=== PATIENT | female | born 1945 | race Caucasian/White ===

== ENCOUNTER 2023-07-10 16:45 | Outpatient (REF) | payer MEDICARE, MEDICAID, SELFPAY ==
--- OUTSIDE RECORDS SUMMARY | 2023-07-10 16:55 | XMS_ITS | CCD ---
Author Name Unknown Address [address] [place] [address] [id number] Organization Unknown Address [address] [place] [address] [id number] Care Team Providers Care Education Associate Name Role Phone MOIZ PHILLIPS Attending Physician [phone] Vital Signs Unknown or Not Available. Allergies Allergy Code Allergy Type Reaction Status MORPHINE 7052 Drug allergy ?hallucinations Active Procedures Unknown or Not Available. History of Immunizations Immunization Code Date pneumococcal polysaccharide PPV23 33 03/02/2012 Problems Problem Code Start Date Resolved Date Status GERD 085904250 Active Hypothyroidism 35603704 Active CHF 95892555 Active Results BNP (PRO-B NATRIURETIC PEPTI DE) - Collect Date/Time: 11/06/2022 15:22 Test Name Code Test Result Test Units Test Ref Rang e NT-proBNP 75001-4 664.0 pg/mL L=0.0 H=125 COMPREHENSIVE METABOLIC PANE L (CMP) - Collect Date/Time: 11/06/2022 15:22 Test Name Code Test Result Test Units Test Ref Rang e GLUCOSE 2345-7 100 mg/dL L=70 H=116 BUN 3094-0 39 mg/dL L=6 H=25 CREATININE 2160-0 1.25 mg/dL L=0.51 H=0.95 SODIUM SERUM 2951-2 141 mmol/L L=136 H=145 POTASSIUM SERUM 2823-3 4.3 mmol/L L=3.4 H=5 .2 CHLORIDE SERUM 2075-0 102 mmol/L L=96 H=110 CARBON DIOXIDE (CO2) 2028-9 30 mmol/L L=22 H=34 ANION GAP 97184-1 9.3 mmol/L CALCIUM SERUM 82512-9 9.2 mg/dL L=8.2 H=10. 2 BILIRUBIN TOTAL 1975-2 0.3 mg/dL L=0.0 H=1 .3 ALK. PHOS. 6768-6 135 U/L L=46 H=116 SGOT (AST) 1920-8 26 U/L L=15 H=37 SGPT (ALT) 1742-6 35 U/L L=12 H=78 TOTAL PROTEIN 2885-2 7.1 gm/dL L=6.0 H=8.0 ALBUMIN 1751-7 3.8 gm/dL L=3.4 H=5.0 AGE 76 years eGFR (non-Afr.Amer.) 84685-7 42 mL/min eGFR (Afr-Wallisian) 14355-5 51 mL/min CBC W/ DIFFERENTIAL* - Colle ct Date/Time: 11/06/2022 15:22 Test Name Code Test Result Test Units Test Ref Rang e WBC 6690-2 15.74 th/cmm L=5.00 H=10.00 NEUT % 68.1 % L=40.0 H=80.0 LYMPH % 20.7 % L=10.0 H=50.0 MONO % 38889-4 9.7 % L=2.0 H=12.0 EOS % 0.4 % L=0.0 H=8.0 BASO % 0.3 % L=0.0 H=3.0 IG % 2514-8 0.8 % L=0.0 H=1.1 NRBC % 53809-1 0.0 % L=0.0 H=0.0 NEUT abs count 751-8 10.7 th/cmm L=1.6 H=8. 4 LYMPH abs count 731-0 3.3 th/cmm L=1.5 H=4 .0 MONO abs count 742-7 1.5 th/cmm L=0.2 H=1. 0 EOS abs count 711-2 0.1 th/cmm L=0.0 H=0.5 BASO abs count 704-7 0.0 th/cmm L=0.0 H=0. 2 IG abs count 79684-3 0.1 th/cmm L=0.0 H=0.1 NRBC abs count 77682-1 0.0 mil/cmm L=0.0 H=0. 0 RBC 789-8 4.14 mil/cmm L=3.90 H=5.40 HEMOGLOBIN 718-7 13.9 gm/dL L=12.0 H=16.0 HEMATOCRIT 4544-3 41 % L=37 H=47 MCV 787-2 98 fL L=82 H=92 MCH 785-6 33.6 pg L=27.0 H=31.0 MCHC 786-4 34.2 % L=32.0 H=36.0 RDW-SD 788-0 47.5 fL L=39.0 H=49.0 PLATELET COUNT 777-3 261 th/cmm L=150 H=45 0 Active Medications Unknown or Not Available. Medications Administered During Visit Unknown or Not Available. Encounters Encounter Diagnosis Diagnosis Code Start Date Hypertensive heart disease with congestive heart failure [id number] 11/06/2022 Social History Smoking Status Code Start Date End Date Never smoker 153407902 Patient Decision Aids Unknown or Not Available. Discharge Instructions You were admitted to [facility] on 11/06/2022 14:31 with a principal diagnosis of Hypertensive heart disease with heart failure You had the following tests done:BNP (PRO-B NATRIURETIC PEPTIDE)CBC W/ DIFFERENTIAL*COMPREHENSIVE METABOLIC PANEL (CMP) You were discharged from [facility] on 11/06/2022 14:31 Should you have any questions prior to discharge, please contact a member of your healthcare team. If you have left the hospital and have any questions, please contact your primary care physician. Chief Complaint and Reason For Visit Unknown or Not Available. Function Status Unknown or Not Available. Plan of Care Unknown or Not Available. Referral/Transition of Care Unknown or Not Available.
--- OUTSIDE RECORDS SUMMARY | 2023-07-10 16:55 | XMS_ITS | CCD ---
Author Name Unknown Address [address] [place] [address] [phone] Organization Unknown Address [address] [place], [place] [phone] Care Team Providers Care Hot Iron Worker Name Role Phone ANABEL MACKENZIE Attending Physician [phone] ANABEL MACKENZIE Rounding (Secondary) Physician [phone] Vital Signs Unknown or Not Available. Allergies Allergy Code Allergy Type Reaction Status MORPHINE 7052 Drug allergy ?hallucinations Active Procedures Unknown or Not Available. History of Immunizations Immunization Code Date pneumococcal polysaccharide PPV23 33 03/02/2012 Problems Problem Code Start Date Resolved Date Status GERD 625640147 Active Hypothyroidism 25732748 Active CHF 43941093 Active Results Unknown or Not Available. Active Medications Unknown or Not Available. Medications Administered During Visit Unknown or Not Available. Encounters Encounter Diagnosis Diagnosis Code Start Date Achilles tendinitis, right leg M7661 1 08/12/2021 Social History Smoking Status Code Start Date End Date Never smoker 180440697 Patient Decision Aids Unknown or Not Available. Discharge Instructions You were admitted to [facility] on 06/12/2022 08:26 with a principal diagnosis of Achilles tendinitis, right leg You were discharged from [facility] on 06/12/2022 00:00 Should you have any questions prior to [...]
--- OUTSIDE RECORDS SUMMARY | 2023-07-10 16:55 | XMS_ITS | CCD ---
Author Name Unknown Address [address] [place] [address] [phone] Organization Unknown Address [address] [place], [place] [phone] Care Team Providers Care Aerial Erector Name Role Phone ANABEL MACKENZIE Attending Physician [phone] ANABEL MACKENZIE Rounding (Secondary) Physician [phone] Vital Signs Unknown or Not Available. Allergies Allergy Code Allergy Type Reaction Status MORPHINE 7052 Drug allergy ?hallucinations Active Procedures Unknown or Not Available. History of Immunizations Immunization Code Date pneumococcal polysaccharide PPV23 33 03/02/2012 Problems Problem Code Start Date Resolved Date Status GERD 748112942 Active Hypothyroidism 22320968 Active CHF 45998966 Active Results Unknown or Not Available. Active Medications Unknown or Not Available. Medications Administered During Visit Unknown or Not Available. Encounters Encounter Diagnosis Diagnosis Code Start Date Achilles tendinitis, right leg M7661 1 Social History Smoking Status Code Start Date End Date Never smoker 198976696 Patient Decision Aids Unknown or Not Available. Discharge Instructions You were admitted to [facility] on 05/20/2022 14:49 with a principal diagnosis of Achilles tendinitis, right leg You were discharged from [facility] on 05/20/2022 00:00 Should you have any questions prior [...]
--- OUTSIDE RECORDS SUMMARY | 2023-07-10 16:55 | XMS_ITS | CCD ---
Author Name Unknown Address [address] [place], [place] [phone] Organization Unknown Address [address] [place], [place] [phone] Care Team Providers Care Physical Plant Manager Name Role Phone CHIDIEL Attending Physician [phone] Vital Signs Unknown or Not Available. Allergies Allergy Code Allergy Type Reaction Status MORPHINE 7052 Drug allergy ?hallucinations Active Procedures Unknown or Not Available. History of Immunizations Immunization Code Date pneumococcal polysaccharide PPV23 33 03/02/2012 Problems Problem Code Start Date Resolved Date Status GERD 895947456 Active Hypothyroidism 17850105 Active CHF 60147122 Active Results COMPREHENSIVE METABOLIC PANE L (CMP) - Collect Date/Time: 03/06/2022 11:27 Test Name Code Test Result Test Units Test Ref Rang e GLUCOSE 2345-7 146 mg/dL L=70 H=116 BUN 3094-0 22 mg/dL L=6 H=25 CREATININE 2160-0 1.02 mg/dL L=0.51 H=0.95 SODIUM SERUM 2951-2 141 mmol/L L=136 H=145 POTASSIUM SERUM 2823-3 4.1 mmol/L L=3.4 H=5 .2 CHLORIDE SERUM 2075-0 105 mmol/L L=96 H=110 CARBON DIOXIDE (CO2) 2028-9 31 mmol/L L=22 H=34 ANION GAP 47691-4 4.9 mmol/L CALCIUM SERUM 33147-9 8.9 mg/dL L=8.2 H=10. 2 BILIRUBIN TOTAL 1975-2 0.3 mg/dL L=0.0 H=1 .3 ALK. PHOS. 6768-6 130 U/L L=46 H=116 SGOT (AST) 1920-8 25 U/L L=15 H=37 SGPT (ALT) 1742-6 29 U/L L=12 H=78 TOTAL PROTEIN 2885-2 7.9 gm/dL L=6.0 H=8.0 ALBUMIN 1751-7 3.7 gm/dL L=3.4 H=5.0 AGE 76 years eGFR (non-Afr.Amer.) 32721-4 53 mL/min eGFR (Afr-Estonian) 67078-9 64 mL/min TSH THYROID STIMULATING HORM ONE* - Collect Date/Time: 03/06/2022 11:27 Test Name Code Test Result Test Units Test Ref Rang e TSH 3014-8 0.617 uIU/mL L=0.360 H=3.74 0 CBC W/ DIFFERENTIAL* - Colle ct Date/Time: 03/06/2022 11:27 Test Name Code Test Result Test Units Test Ref Rang e WBC 6690-2 9.65 th/cmm L=5.00 H=10.00 NEUT % 60.5 % L=40.0 H=80.0 LYMPH % 25.8 % L=10.0 H=50.0 MONO % 49044-0 10.8 % L=2.0 H=12.0 EOS % 1.7 % L=0.0 H=8.0 BASO % 0.7 % L=0.0 H=3.0 IG % 2514-8 0.5 % L=0.0 H=1.1 NRBC % 68728-5 0.0 % L=0.0 H=0.0 NEUT abs count 751-8 5.8 th/cmm L=1.6 H=8. 4 LYMPH abs count 731-0 2.5 th/cmm L=1.5 H=4 .0 MONO abs count 742-7 1.0 th/cmm L=0.2 H=1. 0 EOS abs count 711-2 0.2 th/cmm L=0.0 H=0.5 BASO abs count 704-7 0.1 th/cmm L=0.0 H=0. 2 IG abs count 96691-1 0.1 th/cmm L=0.0 H=0.1 NRBC abs count 47106-1 0.0 mil/cmm L=0.0 H=0. 0 RBC 789-8 3.97 mil/cmm L=3.90 H=5.40 HEMOGLOBIN 718-7 13.4 gm/dL L=12.0 H=16.0 HEMATOCRIT 4544-3 40 % L=37 H=47 MCV 787-2 102 fL L=82 H=92 MCH 785-6 33.8 pg L=27.0 H=31.0 MCHC 786-4 33.2 % L=32.0 H=36.0 RDW-SD 788-0 47.2 fL L=39.0 H=49.0 PLATELET COUNT 777-3 272 th/cmm L=150 H=45 0 SED RATE* - Collect Date/Solomon e: 03/06/2022 11:27 Test Name Code Test Result Test Units Test Ref Rang e SED. RATE 4537-7 14 mm/hr L=0 H=30 IMMUNOFIXATION AND SPEP SERU M* - Collect Date/Time: 03/06/2022 11:27 Test Name Code Test Result Test Units Test Ref Rang e Albumin 55.0 % 55.8-66.1 Albumin g/dL 4.1 g/dL 3.6-5.2 Alpha 1 3.8 % 2.9-4.9 Alpha-1 Globulins g/dL 0.30 g/dL 0. 15-0.40 Alpha 2 11.5 % 7.1-11.8 Alpha-2 Globulins g/dL 0.90 g/dL 0. 50-1.00 Beta 12.1 % 8.4-13.1 Beta Globulins g/dL 0.90 g/dL 0.60- 1.20 Gamma 17.6 % 11.1-18.8 Gamma Globulins g/dL 1.30 g/dL 0.60 -1.60 Total Protein 7.4 N/A 6.3-8.2 Comments No apparent mono clonal protein seen on serum electrophoresis N/A Immunotyping, Serum (See Note) N/A Active Medications Unknown or Not Available. Medications Administered During Visit Unknown or Not Available. Encounters Encounter Diagnosis Diagnosis Code Start Date Neuralgia 74540251 03/06/2022 Social History Smoking Status Code Start Date End Date Never smoker 047159285 Patient Decision Aids Unknown or Not Available. Discharge Instructions You were admitted to [facility] on 03/06/2022 11:04 with a principal diagnosis of Neuralgia and neuritis, unspecified You had the following tests done:CBC W/ DIFFERENTIAL*COMPREHENSIVE METABOLIC PANEL (CMP)IMMUNOFIXATION AND SPEP SERUM*SED RATE*TSH THYROID STIMULATING HORMONE* You were discharged from [facility] on 03/06/2022 11:04 Should you have any questions prior to [...]
--- OUTSIDE RECORDS SUMMARY | 2023-07-10 16:55 | XMS_ITS | CCD ---
Author Name Unknown Address [address] [place] [address] [phone] Organization Unknown Address [address] [place] [address] [phone] Care Team Providers Care Coil Taper Name Role Phone MOIZ PHILLIPS Attending Physician [phone] MOIZ PHILLIPS Rounding (Secondary) Physician [phone] Vital Signs Unknown or Not Available. Allergies Allergy Code Allergy Type Reaction Status MORPHINE 7052 Drug allergy ?hallucinations Active Procedures Unknown or Not Available. History of Immunizations Immunization Code Date pneumococcal polysaccharide PPV23 33 03/02/2012 Problems Problem Code Start Date Resolved Date Status GERD 534862453 Active Hypothyroidism 25886540 Active CHF 27418153 Active Results Unknown or Not Available. Active Medications Unknown or Not Available. Medications Administered During Visit Unknown or Not Available. Encounters Encounter Diagnosis Diagnosis Code Start Date Nonrheumatic aortic valve disorder, unspecified I359 11/15/2021 Social History Smoking Status Code Start Date End Date Never smoker 397710481 Patient Decision Aids Unknown or Not Available. Discharge Instructions You were admitted to [facility] on 11/15/2021 11:16 with a principal diagnosis of Nonrheumatic aortic valve disorder, unspecified You were discharged from [facility] on 11/15/2021 00:00 Should you have any questions prior [...]
--- OUTSIDE RECORDS SUMMARY | 2023-07-10 16:55 | XMS_ITS | CCD ---
Author Name Unknown Address [address] [place] [address] [phone] Organization Unknown Address [address] [place], [place] [phone] Care Team Providers Care Marketing Communications Associate Name Role Phone COLEMAN MÁRQUEZ Attending Physician [phone] Vital Signs Unknown or Not Available. Allergies Allergy Code Allergy Type Reaction Status MORPHINE 7052 Drug allergy ?hallucinations Active Procedures Unknown or Not Available. History of Immunizations Immunization Code Date pneumococcal polysaccharide PPV23 33 03/02/2012 Problems Problem Code Start Date Resolved Date Status GERD 925891600 Active Hypothyroidism 95431403 Active CHF 09018437 Active Results Unknown or Not Available. Active Medications Unknown or Not Available. Medications Administered During Visit Unknown or Not Available. Encounters Encounter Diagnosis Diagnosis Code Start Date Obstructive sleep apnea syndrome 71339444 01/07/2023 Social History Smoking Status Code Start Date End Date Never smoker 256025368 Patient Decision Aids Unknown or Not Available. Discharge Instructions You were admitted to [facility] on 01/07/2023 20:49 with a principal diagnosis of Obstructive sleep apnea (adult) (pediatric) You were discharged from [facility] on 01/07/2023 20:50 Should you have any questions prior to [...]
--- OUTSIDE RECORDS SUMMARY | 2023-07-10 16:55 | XMS_ITS | CCD ---
Author Name Unknown Address [address] [place] [address] [phone] Organization Unknown Address [address] [place] [address] [phone] Care Team Providers Care Electrician Second Name Role Phone PATRICK ALLISON Attending Physician [phone] PATRICK ALLISON Er Physician 1 [phone] FRANCIS Jimenez Registered Nurse [phone] Vital Signs Vital Sign Value Unit Date/Time Recent/Initial ? BMI (Body Mass Index) 39.38 kg/m^2 01/19/2023 15: 08 Initial VS Weight Measured 182 lbs 01/19/2023 15:08 Ini tial VS Height 57 in 01/19/2023 15:08 Initial VS BSA (Body Surface Area) 1.82 m^2 01/19/2023 1 5:08 Initial VS BP Systolic 167 mmHg 01/19/2023 15:08 Initial VS BP Diastolic 51 mmHg 01/19/2023 15:08 Initia l VS Respiratory Rate 20 bpm 01/19/2023 15:08 In itial VS Heart Rate 88 bpm 01/19/2023 15:08 Initial VS O2 % BldC Oximetry 97 % 01/19/2023 15:08 Initial VS Body Temperature 36.7 degrees 01/19/2023 15:08 In itial VS BP Systolic 176 mmHg 01/19/2023 17:48 Most Re cent VS BP Diastolic 73 mmHg 01/19/2023 17:48 Most R ecent VS Respiratory Rate 16 bpm 01/19/2023 17:[address] Recent VS Heart Rate 84 bpm 01/19/2023 17:48 Most Rec ent VS O2 % BldC Oximetry 96 % 01/19/2023 17:48 Most Recent VS Allergies Allergy Code Allergy Type Reaction Status MORPHINE 7052 Drug allergy ?hallucinations Active Procedures Unknown or Not Available. History of Immunizations Immunization Code Date pneumococcal polysaccharide PPV23 33 03/02/2012 Problems Problem Code Start Date Resolved Date Status GERD 642722986 Active Hypothyroidism 60400311 Active CHF 19097458 Active Results COMPREHENSIVE METABOLIC PANE L (CMP) - Collect Date/Time: 01/19/2023 15:50 Test Name Code Test Result Test Units Test Ref Rang e GLUCOSE 2345-7 105 mg/dL L=70 H=116 BUN 3094-0 14 mg/dL L=6 H=25 CREATININE 2160-0 0.93 mg/dL L=0.51 H=0.95 SODIUM SERUM 2951-2 134 mmol/L L=136 H=145 POTASSIUM SERUM 2823-3 3.7 mmol/L L=3.4 H=5 .2 CHLORIDE SERUM 2075-0 98 mmol/L L=96 H=110 CARBON DIOXIDE (CO2) 2028-9 30 mmol/L L=22 H=34 ANION GAP 32307-9 5.6 mmol/L CALCIUM SERUM 82949-6 9.6 mg/dL L=8.2 H=10. 2 BILIRUBIN TOTAL 1975-2 0.4 mg/dL L=0.0 H=1 .3 ALK. PHOS. 6768-6 118 U/L L=46 H=116 SGOT (AST) 1920-8 38 U/L L=15 H=37 SGPT (ALT) 1742-6 34 U/L L=12 H=78 TOTAL PROTEIN 2885-2 7.2 gm/dL L=6.0 H=8.0 ALBUMIN 1751-7 3.5 gm/dL L=3.4 H=5.0 AGE 77 years eGFR (non-Afr.Amer.) 17931-6 59 mL/min eGFR (Afr-Ethiopian) 48682-3 71 mL/min LIPASE* NEW - Collect Date/T luke: 01/19/2023 15:50 Test Name Code Test Result Test Units Test Ref Rang e LIPASE. 54 U/L L=16 H=77 TROPONIN HIGH SENSITIVITY* - Collect Date/Time: 01/19/2023 15:50 Test Name Code Test Result Test Units Test Ref Rang e TROPONIN HS 13.2 pg/mL L=0.0 H=60.4 Specimen seq. RANDOM N/A CBC W/ DIFFERENTIAL* - Colle ct Date/Time: 01/19/2023 15:50 Test Name Code Test Result Test Units Test Ref Rang e WBC 6690-2 9.97 th/cmm L=5.00 H=10.00 NEUT % 59.2 % L=40.0 H=80.0 LYMPH % 29.4 % L=10.0 H=50.0 MONO % 01838-6 9.3 % L=2.0 H=12.0 EOS % 1.1 % L=0.0 H=8.0 BASO % 0.6 % L=0.0 H=3.0 IG % 2514-8 0.4 % L=0.0 H=1.1 NRBC % 89735-2 0.0 % L=0.0 H=0.0 NEUT abs count 751-8 5.9 th/cmm L=1.6 H=8. 4 LYMPH abs count 731-0 2.9 th/cmm L=1.5 H=4 .0 MONO abs count 742-7 0.9 th/cmm L=0.2 H=1. 0 EOS abs count 711-2 0.1 th/cmm L=0.0 H=0.5 BASO abs count 704-7 0.1 th/cmm L=0.0 H=0. 2 IG abs count 30269-8 0.0 th/cmm L=0.0 H=0.1 NRBC abs count 99165-6 0.0 mil/cmm L=0.0 H=0. 0 RBC 789-8 3.69 mil/cmm L=3.90 H=5.40 HEMOGLOBIN 718-7 12.7 gm/dL L=12.0 H=16.0 HEMATOCRIT 4544-3 38 % L=37 H=47 MCV 787-2 102 fL L=82 H=92 MCH 785-6 34.4 pg L=27.0 H=31.0 MCHC 786-4 33.7 % L=32.0 H=36.0 RDW-SD 788-0 46.4 fL L=39.0 H=49.0 PLATELET COUNT 777-3 210 th/cmm L=150 H=45 0 ROSEANNA COVID FLU RSV GENEXPE RT - Collect Date/Time: 01/19/2023 15:50 Test Name Code Test Result Test Units Test Ref Rang e COVID 80933-0 NEGATIVE N/A Normal: Negati ve INFLUENZA A DNA 59684-1 NEGATIVE N/A Normal: N egative INFLUENZA B DNA 65322-1 NEGATIVE N/A Normal: N egative RSV DNA 13186-6 NEGATIVE N/A Normal: Negati ve URINALYSIS WITH REFLEX CULT IF POSITIVE* - Collect Date/Time: 01/19/2023 15:35 Test Name Code Test Result Test Units Test Ref Rang e COLLECTION MODE: 75753-7 VOID N/A Color 5778-6 STRAW N/A yellow Appearance 5767-9 CLEAR N/A clear Glucose urine 81019-6 NEGATIVE N/A negative mg /dl Bilirubin 5770-3 NEGATIVE N/A negative Ketones 2514-8 NEGATIVE N/A negative mg/dl Spec gravity 5811-5 <=1.005 N/A 1.003 - 1.03 0 pH urine 2756-5 7.0 N/A 5.0 - 7.0 Protein 97145-4 NEGATIVE N/A negative mg/dl Urobilinogen 81871-0 0.2 N/A <or= 1 EU/dl Nitrite. 5802-4 NEGATIVE N/A negative Blood 5794-3 NEGATIVE N/A negative Leukocytes. NEGATIVE N/A negative MICROSCOPIC NOT INDICAT N/A Active Medications Medications Administered During Visit Medication Dose Units Frequency Route Date/Time of Last Dose SODIUM CHLORIDE 0.9% 500ML 500 ML X1 01/19/2023 15:53 ACETAMINOPHEN INJ IVPB: 1000MG/100ML 1000 MG X1 01/19/2023 15:5 3 ONDANSETRON INJ SDV: 4MG/2ML 4 MG X1 I MONITORING SPECIALIST 01/19/2023 15:53 ER-ONDANSETRON ODT 4 PACK: 4MG 4 MG PRN Q8H PO 01/19/2023 18:20 Encounters Encounter Diagnosis Diagnosis Code Start Date Noninfectious gastroenteritis 55817286 Social History Smoking Status Code Start Date End Date Never smoker 073219690 Patient Decision Aids Unknown or Not Available. Discharge Instructions You were admitted to [facility] on 01/19/2023 14:53 with a principal diagnosis of Noninfective gastroenteritis and colitis, unspecified You had the following tests done:CBC W/ DIFFERENTIAL*COMPREHENSIVE METABOLIC PANEL (CMP)ROSEANNA COVID FLU RSV GENEXPERTLIPASE* NEWTROPONIN HIGH SENSITIVITY*URINALYSIS WITH REFLEX CULT IF POSITIVE* You were discharged from [facility] on 01/19/2023 18:21 Should you have any questions prior to discharge, please contact a member of your healthcare team. If you have left the hospital and have any questions, please contact your primary care physician. Chief Complaint and Reason For Visit Chief Complaint Date of Onset DIZZINESS FATIGUE NAUSEA CHECK PER Function Status Unknown or Not Available. Plan of Care Unknown or Not Available. Referral/Transition of Care Unknown or Not Available.
--- OUTSIDE RECORDS SUMMARY | 2023-07-10 16:56 | XMS_ITS | CCD ---
Author Name Unknown Address [address] [place] [address] [phone] Organization Unknown Address [address] [place], [place] [phone] Care Team Providers Care Hand Picker Name Role Phone CHIDI, EL Attending Physician [phone] Vital Signs Unknown or Not Available. Allergies Allergy Code Allergy Type Reaction Status MORPHINE 7052 Drug allergy ?hallucinations Active Procedures Unknown or Not Available. History of Immunizations Immunization Code Date pneumococcal polysaccharide PPV23 33 03/02/2012 Problems Problem Code Start Date Resolved Date Status GERD 581378149 Active Hypothyroidism 60781777 Active CHF 60041720 Active Results Unknown or Not Available. Active Medications Unknown or Not Available. Medications Administered During Visit Unknown or Not Available. Encounters Encounter Diagnosis Diagnosis Code Start Date Encounter for screening mamm ogram for malignant neoplasm of breast Z1231 04/10/2021 Social History Smoking Status Code Start Date End Date Never smoker 320625647 Patient Decision Aids Unknown or Not Available. Discharge Instructions You were admitted to [facility] on 04/10/2021 12:46 with a principal diagnosis of Encounter for screening mammogram for malignant neoplasm of breast You were discharged from [facility] on 04/10/2021 12:46 Should you have any questions prior to [...]
[2023-07-10 17:25] LABS: Abs Immature Grans 0.03 10^3/uL (0.0-0.06); Absolute Basophil Count 0.08 10^3/uL (0.0-0.2); Absolute Eosinophil Count 0.26 10^3/uL (0.0-0.7); Absolute Lymphocyte Count 2.51 10^3/uL (1.2-3.4); Absolute Monocyte Count 1.02 10^3/uL (0.1-0.8); Absolute Neutrophil Count 4.29 10^3/uL (1.2-6.7); Eosinophils % 3.2; HCT 36.9 % (36.0-46.0); HGB 12.2 g/dL (11.2-15.7); Immature Grans % 0.4; Lymphocytes % 30.6; MCH 33.7 pg (27.0-33.0); MCHC 33.1 % (32.0-36.0); MCV 102 fL (80-95); MPV 11.8 fL (8.0-11.0); Monocytes % 12.5; Neutrophils % 52.3; Platelet Count 194 10^3/uL (130-400); RBC 3.62 10^6/uL (3.93-5.22); RDW 13.1 % (11.7-14.6); RDW-SD 48.9 fL; WBC 8.19 10^3/uL (4.4-10.8)
[2023-07-10 17:39] LABS: ALT 28 U/L (14-59); AST 32 U/L (15-37); Albumin 3.3 g/dL (3.4-5.0); Alkaline Phosphatase 116 U/L (46-116); Anion Gap 5.8 mmol/L (3-11); BUN 35 mg/dL (7-18); Bilirubin, Total 0.3 mg/dL (0.2-1.0); CO2 31.2 mmol/L (21.0-32.0); CREATININE 1.3 mg/dL (0.55-1.02); Calcium 9.4 mg/dL (8.5-10.1); Chloride 105 mmol/L (98-107); Estimated GFR 42.62 (mL/min/1.73m2); Glucose 101 mg/dL (74-106); Potassium 4.6 mmol/L (3.5-5.1); Sodium 142 mmol/L (136-145)
== END 2023-07-10 16:46 | disposition home or self-care (01) ==
LOC: NCHCN 16:45
PROVIDERS: PCP Family Medicine; Visit Provider Family Medicine
DX: R10.31 Right lower quadrant pain (principal)
CPT/HCPCS: 80053; 85025

== ENCOUNTER 2023-08-18 13:50 | Outpatient (REF) | payer MEDICARE, MEDICAID, SELFPAY ==
--- OUTSIDE RECORDS SUMMARY | 2023-08-18 13:53 | XMS_ITS | CCD ---
Author Name Unknown Address [address] [place] [address] [id number] Organization Unknown Address [address] [place], [place] [phone] Care Team Providers Care Gunsmith Apprentice Name Role Phone COLEMAN MÁRQUEZ Attending Physician [phone] Vital Signs Unknown or Not Available. Allergies Allergy Code Allergy Type Reaction Status MORPHINE 7052 Drug allergy ?hallucinations Active Procedures Unknown or Not Available. History of Immunizations Immunization Code Date pneumococcal polysaccharide PPV23 33 03/02/2012 Problems Problem Code Start Date Resolved Date Status GERD 122827175 Active Hypothyroidism 37679188 Active CHF 20373853 Active Results Unknown or Not Available. Active Medications Unknown or Not Available. Medications Administered During Visit Unknown or Not Available. Encounters Encounter Diagnosis Diagnosis Code Start Date Obstructive sleep apnea syndrome 40946861 01/07/2023 Social History Smoking Status Code Start Date End Date Never smoker 068795423 Patient Decision Aids Unknown or Not Available. Discharge Instructions You were admitted to [facility] on 01/07/2023 20:49 with a principal diagnosis of Obstructive sleep apnea (adult) (pediatric) You were discharged from [facility] on 01/07/2023 20:50 Should you have any [...]
--- OUTSIDE RECORDS SUMMARY | 2023-08-18 13:53 | XMS_ITS | CCD ---
Author Name Unknown Address [address] [place] [address] [phone] Organization Unknown Address [address] [place] [address] [phone] Care Team Providers Care Furnace Filler Name Role Phone PATRICK ALLISON Attending Physician [phone] PATRICK ALLISON Er Physician [phone] FRANCIS Jimenez Registered Nurse [phone] Vital Signs Vital Sign Value Unit Date/Time [...] Code Start Date Resolved Date Status GERD 262495810 Active Hypothyroidism 30455149 Active CHF 14546445 Active Results COMPREHENSIVE METABOLIC PANE L (CMP) [...] 2028-9 30 mmol/L L=22 H=34 ANION GAP 30328-1 5.6 mmol/L CALCIUM SERUM 35535-6 9.6 mg/dL L=8.2 H=10. 2 BILIRUBIN TOTAL 1975-2 0.4 mg/dL L=0.0 H=1 .3 ALK. PHOS. 6768-6 118 U/L L=46 H=116 SGOT (AST) 1920-8 38 U/L L=15 H=37 SGPT (ALT) 1742-6 34 U/L L=12 H=78 TOTAL PROTEIN 2885-2 7.2 gm/dL L=6.0 H=8.0 ALBUMIN 1751-7 3.5 gm/dL L=3.4 H=5.0 AGE 77 years eGFR (non-Afr.Amer.) 32909-6 59 mL/min eGFR (Afr-Eritrean) 71959-3 71 mL/min LIPASE* NEW - Collect Date/T [...] % 29.4 % L=10.0 H=50.0 MONO % 13456-0 9.3 % L=2.0 H=12.0 EOS % 1.1 % L=0.0 H=8.0 BASO % 0.6 % L=0.0 H=3.0 IG % 2514-8 0.4 % L=0.0 H=1.1 NRBC % 03750-5 0.0 % L=0.0 H=0.0 NEUT abs count 751-8 5.9 th/cmm L=1.6 H=8. 4 LYMPH abs count 731-0 2.9 th/cmm L=1.5 H=4 .0 MONO abs count 742-7 0.9 th/cmm L=0.2 H=1. 0 EOS abs count 711-2 0.1 th/cmm L=0.0 H=0.5 BASO abs count 704-7 0.1 th/cmm L=0.0 H=0. 2 IG abs count 27140-8 0.0 th/cmm L=0.0 H=0.1 NRBC abs count 57978-6 0.0 mil/cmm L=0.0 H=0. 0 RBC 789-8 [...] Test Units Test Ref Rang e COVID 78222-2 NEGATIVE N/A Normal: Negati ve INFLUENZA A DNA 91927-8 NEGATIVE N/A Normal: N egative INFLUENZA B DNA 40646-4 NEGATIVE N/A Normal: N egative RSV DNA 14092-4 NEGATIVE N/A Normal: Negati ve URINALYSIS WITH REFLEX CULT IF POSITIVE* - Collect Date/Time: 01/19/2023 15:35 Test Name Code Test Result Test Units Test Ref Rang e COLLECTION MODE: 10067-2 VOID N/A Color 5778-6 STRAW N/A yellow Appearance 5767-9 CLEAR N/A clear Glucose urine 74312-5 NEGATIVE N/A negative mg /dl Bilirubin 5770-3 NEGATIVE N/A negative Ketones 2514-8 NEGATIVE N/A negative mg/dl Spec gravity 5811-5 <=1.005 N/A 1.003 - 1.03 0 pH urine 2756-5 7.0 N/A 5.0 - 7.0 Protein 94332-0 NEGATIVE N/A negative mg/dl Urobilinogen 01323-9 0.2 N/A <or= 1 EU/dl Nitrite. 5802-4 [...] INJ SDV: 4MG/2ML 4 MG X1 I GUILLOTINE OPERATOR 01/19/2023 15:53 ER-ONDANSETRON ODT 4 PACK: 4MG 4 MG PRN Q8H PO 01/19/2023 18:20 Encounters Encounter Diagnosis Diagnosis Code Start Date Noninfectious gastroenteritis 57643845 Social History Smoking Status Code Start Date End Date Never smoker 251496868 Patient Decision Aids Unknown or Not Available. Discharge Instructions You were admitted to [facility] on 01/19/2023 14:53 with a principal diagnosis of Noninfective gastroenteritis and colitis, unspecified You had the following tests done:CBC W/ DIFFERENTIAL*COMPREHENSIVE METABOLIC PANEL (CMP)ROSEANNA COVID FLU RSV GENEXPERTLIPASE* NEWTROPONIN HIGH SENSITIVITY*URINALYSIS WITH REFLEX CULT IF POSITIVE* You were discharged from [facility] on 01/19/2023 18:21 Should you have any [...]
--- OUTSIDE RECORDS SUMMARY | 2023-08-18 13:53 | XMS_ITS | CCD ---
Author Name Unknown Address [address] [place] [address] [phone] Organization Unknown Address [address], [place] [phone] Care Team Providers Care Sales Broker Name Role Phone ANABEL MACKENZIE Attending Physician [phone] ANABEL MACKENZIE Rounding (Secondary) Physician [phone] Vital Signs Unknown or Not Available. Allergies Allergy Code Allergy Type Reaction Status MORPHINE 7052 Drug allergy ?hallucinations Active Procedures Unknown or Not Available. History of Immunizations Immunization Code Date pneumococcal polysaccharide PPV23 33 03/02/2012 Problems Problem Code Start Date Resolved Date Status GERD 772955676 Active Hypothyroidism 83883755 Active CHF 74218626 Active Results Unknown or Not Available. Active Medications Unknown or Not Available. Medications Administered During Visit Unknown or Not Available. Encounters Encounter Diagnosis Diagnosis Code Start Date Achilles tendinitis, right leg M7661 1 Social History Smoking Status Code Start Date End Date Never smoker 443665471 Patient Decision Aids Unknown or Not Available. Discharge Instructions You were admitted to [facility] on 05/20/2022 14:49 with a principal diagnosis of Achilles tendinitis, right leg You were discharged from [facility] on 05/20/2022 00:00 Should you have any [...]
--- OUTSIDE RECORDS SUMMARY | 2023-08-18 13:53 | XMS_ITS | CCD ---
Author Name Unknown Address [address] [place] [address] [phone] Organization Unknown Address [address] [place] [address] [phone] Care Team Providers Care Drafter Name Role Phone MOIZ PHILLIPS Attending Physician [phone] Vital Signs Unknown or Not Available. Allergies Allergy Code Allergy Type Reaction Status MORPHINE 7052 Drug allergy ?hallucinations Active Procedures Unknown or Not Available. History of Immunizations Immunization Code Date pneumococcal polysaccharide PPV23 33 03/02/2012 Problems Problem Code Start Date Resolved Date Status GERD 800661824 Active Hypothyroidism 72660538 Active CHF 40865667 Active Results BNP (PRO-B NATRIURETIC PEPTI DE) - Collect Date/Time: 11/06/2022 15:22 Test Name Code Test Result Test Units Test Ref Rang e NT-proBNP 35581-6 664.0 pg/mL L=0.0 H=125 COMPREHENSIVE METABOLIC PANE [...] 2028-9 30 mmol/L L=22 H=34 ANION GAP 13272-5 9.3 mmol/L CALCIUM SERUM 87662-6 9.2 mg/dL L=8.2 H=10. 2 BILIRUBIN TOTAL 1975-2 0.3 mg/dL L=0.0 H=1 .3 ALK. PHOS. 6768-6 135 U/L L=46 H=116 SGOT (AST) 1920-8 26 U/L L=15 H=37 SGPT (ALT) 1742-6 35 U/L L=12 H=78 TOTAL PROTEIN 2885-2 7.1 gm/dL L=6.0 H=8.0 ALBUMIN 1751-7 3.8 gm/dL L=3.4 H=5.0 AGE 76 years eGFR (non-Afr.Amer.) 86038-6 42 mL/min eGFR (Afr-[place]an) 98155-1 51 mL/min CBC W/ DIFFERENTIAL* - Colle ct Date/Time: 11/06/2022 15:22 Test Name Code Test Result Test Units Test Ref Rang e WBC 6690-2 15.74 th/cmm L=5.00 H=10.00 NEUT % 68.1 % L=40.0 H=80.0 LYMPH % 20.7 % L=10.0 H=50.0 MONO % 99926-5 9.7 % L=2.0 H=12.0 EOS % 0.4 % L=0.0 H=8.0 BASO % 0.3 % L=0.0 H=3.0 IG % 2514-8 0.8 % L=0.0 H=1.1 NRBC % 88051-6 0.0 % L=0.0 H=0.0 NEUT abs count 751-8 10.7 th/cmm L=1.6 H=8. 4 LYMPH abs count 731-0 3.3 th/cmm L=1.5 H=4 .0 MONO abs count 742-7 1.5 th/cmm L=0.2 H=1. 0 EOS abs count 711-2 0.1 th/cmm L=0.0 H=0.5 BASO abs count 704-7 0.0 th/cmm L=0.0 H=0. 2 IG abs count 11985-9 0.1 th/cmm L=0.0 H=0.1 NRBC abs count 32417-1 0.0 mil/cmm L=0.0 H=0. 0 RBC 789-8 [...] Hypertensive heart disease with congestive heart failure 3294546 11/06/2022 Social History Smoking Status Code Start Date End Date Never smoker 293632871 Patient Decision Aids Unknown or Not Available. Discharge Instructions You were admitted to [facility] on 11/06/2022 14:31 with a principal diagnosis of Hypertensive heart disease with heart failure You had the following tests done:BNP (PRO-B NATRIURETIC PEPTIDE)CBC W/ DIFFERENTIAL*COMPREHENSIVE METABOLIC PANEL (CMP) You were discharged from [facility] on 11/06/2022 14:31 Should you have [...]
--- OUTSIDE RECORDS SUMMARY | 2023-08-18 13:54 | XMS_ITS | CCD ---
Author Name Unknown Address [address], [place] [phone] Organization Unknown Address [address], [place] [phone] Care Team Providers Care Web Production Designer Name Role Phone CHIDIEL Attending Physician [phone] Vital Signs Unknown or Not Available. Allergies Allergy Code Allergy Type Reaction Status MORPHINE 7052 Drug allergy ?hallucinations Active Procedures Unknown or Not Available. History of Immunizations Immunization Code Date pneumococcal polysaccharide PPV23 33 03/02/2012 Problems Problem Code Start Date Resolved Date Status GERD 962092736 Active Hypothyroidism 40153162 Active CHF 17604706 Active Results COMPREHENSIVE METABOLIC PANE L (CMP) [...] 2028-9 31 mmol/L L=22 H=34 ANION GAP 11757-6 4.9 mmol/L CALCIUM SERUM 05047-4 8.9 mg/dL L=8.2 H=10. 2 BILIRUBIN TOTAL 1975-2 0.3 mg/dL L=0.0 H=1 .3 ALK. PHOS. 6768-6 130 U/L L=46 H=116 SGOT (AST) 1920-8 25 U/L L=15 H=37 SGPT (ALT) 1742-6 29 U/L L=12 H=78 TOTAL PROTEIN 2885-2 7.9 gm/dL L=6.0 H=8.0 ALBUMIN 1751-7 3.7 gm/dL L=3.4 H=5.0 AGE 76 years eGFR (non-Afr.Amer.) 42770-9 53 mL/min eGFR (Afr-Djiboutian) 66861-8 64 mL/min TSH THYROID STIMULATING HORM ONE* [...] % 25.8 % L=10.0 H=50.0 MONO % 85536-0 10.8 % L=2.0 H=12.0 EOS % 1.7 % L=0.0 H=8.0 BASO % 0.7 % L=0.0 H=3.0 IG % 2514-8 0.5 % L=0.0 H=1.1 NRBC % 81737-7 0.0 % L=0.0 H=0.0 NEUT abs count 751-8 5.8 th/cmm L=1.6 H=8. 4 LYMPH abs count 731-0 2.5 th/cmm L=1.5 H=4 .0 MONO abs count 742-7 1.0 th/cmm L=0.2 H=1. 0 EOS abs count 711-2 0.2 th/cmm L=0.0 H=0.5 BASO abs count 704-7 0.1 th/cmm L=0.0 H=0. 2 IG abs count 07068-7 0.1 th/cmm L=0.0 H=0.1 NRBC abs count 35049-4 0.0 mil/cmm L=0.0 H=0. 0 RBC 789-8 [...] Encounter Diagnosis Diagnosis Code Start Date Neuralgia 09247595 03/06/2022 Social History Smoking Status Code Start Date End Date Never smoker 572670514 Patient Decision Aids Unknown or Not Available. Discharge Instructions You were admitted to [facility] on 03/06/2022 11:04 with a principal diagnosis of Neuralgia and neuritis, unspecified You had the following tests done:CBC W/ DIFFERENTIAL*COMPREHENSIVE METABOLIC PANEL (CMP)IMMUNOFIXATION AND SPEP SERUM*SED RATE*TSH THYROID STIMULATING HORMONE* You were discharged from [facility] on 03/06/2022 11:04 Should you have any [...]
--- OUTSIDE RECORDS SUMMARY | 2023-08-18 13:54 | XMS_ITS | CCD ---
Author Name Unknown Address [address] [place] [address] [phone] Organization Unknown Address [address] [place] [address] [phone] Care Team Providers Care Environmental Advisor Name Role Phone MOIZ PHILLIPS Attending Physician [phone] MOIZ PHILLIPS Rounding (Secondary) Physician [phone] Vital Signs Unknown or Not Available. Allergies Allergy Code Allergy Type Reaction Status MORPHINE 7052 Drug allergy ?hallucinations Active Procedures Unknown or Not Available. History of Immunizations Immunization Code Date pneumococcal polysaccharide PPV23 33 03/02/2012 Problems Problem Code Start Date Resolved Date Status GERD 759409016 Active Hypothyroidism 48050772 Active CHF 13226352 Active Results Unknown or Not Available. Active Medications Unknown or Not Available. Medications Administered During Visit Unknown or Not Available. Encounters Encounter Diagnosis Diagnosis Code Start Date Nonrheumatic aortic valve disorder, unspecified I359 11/15/2021 Social History Smoking Status Code Start Date End Date Never smoker 445207313 Patient Decision Aids Unknown or Not Available. Discharge Instructions You were admitted to [facility] on 11/15/2021 11:16 with a principal diagnosis of Nonrheumatic aortic valve disorder, unspecified You were discharged from [facility] on 11/15/2021 00:00 Should you [...]
[2023-08-18 22:20] LABS: Calculated LDL 42 mg/dL (<100); Cholesterol 115 mg/dL (<200); HDL Cholesterol 46 mg/dL (40-60); Triglyceride 135 mg/dL (<150)
== END 2023-08-18 13:51 | disposition home or self-care (01) ==
LOC: NCHCN 13:50
PROVIDERS: PCP Family Medicine; Visit Provider Family Medicine
DX: E78.5 Hyperlipidemia, unspecified (principal)
CPT/HCPCS: 80061

== ENCOUNTER → 2023-11-16 12:44 | Outpatient (CLI) | payer MEDICARE, MEDICAID, SELFPAY ==
--- NOTE | 2023-11-16 13:28 | DI.RAD_ITS ---
Exam(s) XR CHEST 2V PA LATERAL EXAM: XR CHEST 2V PA LATERAL CLINICAL HISTORY: CHRONIC COUGH,r05.3,? PNEUMONIA, PURULENT SPUTUM TECHNIQUE: 2D digital imaging was performed of the chest. Images were obtained. PA and lateral v iews were obtained. COMPARISON: No exams were available for comparison FINDINGS: MEDIASTINUM: Normal. HEART: Normal. There is an aortic valve replacement. PULMONARY VASCULATURE: Normal. LUNGS: The lungs appear hyperinflated suggesting underlying COPD. No focal consolidating infiltrates are seen. PLEURAL SPACE: No pleural effusion or pneumothorax. BONE:Within normal limits for the patient's age. Sternal wires are in place. OTHER FINDINGS:Normal. IMPRESSION: No focal infiltrates. DATA REPOSITORY: RADIATION DOSE DELIVERED:
== END ==
PROVIDERS: PCP Family Medicine; Visit Provider Family Medicine
DX: R05.3 Chronic cough (principal)
CPT/HCPCS: 71046

== ENCOUNTER 2023-11-16 12:46 | Outpatient (CLI) | payer MEDICARE, MEDICAID, SELFPAY ==
[2023-11-16 13:17] LABS: Abs Immature Grans 0.02 10^3/uL (0.0-0.06); Absolute Basophil Count 0.05 10^3/uL (0.0-0.2); Absolute Eosinophil Count 0.22 10^3/uL (0.0-0.7); Absolute Lymphocyte Count 3.03 10^3/uL (1.2-3.4); Absolute Monocyte Count 0.94 10^3/uL (0.1-0.8); Absolute Neutrophil Count 4.07 10^3/uL (1.2-6.7); Basophils % 0.6; Eosinophils % 2.6; HCT 36.1 % (36.0-46.0); HGB 11.8 g/dL (11.2-15.7); Immature Grans % 0.2; Lymphocytes % 36.4; MCH 33.1 pg (27.0-33.0); MCHC 32.7 % (32.0-36.0); MCV 101 fL (80-95); MPV 10.1 fL (8.0-11.0); Monocytes % 11.3; Neutrophils % 48.9; Platelet Count 185 10^3/uL (130-400); RBC 3.56 10^6/uL (3.93-5.22); RDW 12.8 % (11.7-14.6); WBC 8.33 10^3/uL (4.4-10.8)
[2023-11-16 13:54] LABS: ALT 38 U/L (14-59); AST 31 U/L (15-37); Albumin 3.4 g/dL (3.4-5.0); Alkaline Phosphatase 123 U/L (46-116); Anion Gap 10.7 mmol/L (3-11); BUN 28 mg/dL (7-18); Bilirubin, Total 0.4 mg/dL (0.2-1.0); CO2 29.3 mmol/L (21.0-32.0); CREATININE 1.2 mg/dL (0.55-1.02); Calcium 9.4 mg/dL (8.5-10.1); Chloride 108 mmol/L (98-107); Estimated GFR 46.91 (mL/min/1.73m2); Glucose 103 mg/dL (74-106); Potassium 4.2 mmol/L (3.5-5.1); Sodium 148 mmol/L (136-145); TSH (W/Ref FT4) 0.14 uIU/mL (0.36-3.74); Total Protein 7.3 g/dL (6.4-8.2)
[2023-11-16 14:09] LABS: FREE T4 1.08 ng/dL (0.76-1.46)
== END 2023-11-16 12:47 | disposition home or self-care (01) ==
LOC: LBO 12:52
PROVIDERS: PCP Family Medicine; Visit Provider Family Medicine
DX: R53.83 Other fatigue (principal)
CPT/HCPCS: 36415; 80053; 84439; 84443; 85025

== ENCOUNTER → 2023-12-17 04:24 | Outpatient (CLI) | payer MEDICARE, MEDICAID, SELFPAY ==
--- NOTE | 2023-12-17 | DI.DEXA_ITS ---
Exam(s) XR DEXA BONE DENSITY W/WO DAVID EXAM: XR DEXA BONE DENSITY W/WO DAVID CLINICAL HISTORY: Z78.0 Asymptomoatic meonpausal state TECHNIQUE: Hologic Horizon C densitometer analysis of left hip and lumbar spine . Lateral survey i mage of the thoracic and lumbar spine. COMPARISON: No exams were available for comparison FINDINGS: Lateral view of the thoracic and lumbar spine shows no evidence of compression fractures. Bone mineral density measurements of the lumbar spine correspond to a total T-score of 0.2, in the no rmal range. There are prominent degenerative changes with endplate osteophytes which could falsely e levate the bone mineral density measurements. Bone mineral density measurements of the left hip correspond to a total T-score of -1.5. The femora l neck T-score is -1.7, in the osteopenic range.. Theleft forearm bone mineral density measurements are not performed due to history of fracture. IMPRESSION: Normal bone mineral density of the spine. Osteopenia of the hip.
== END ==
PROVIDERS: PCP Family Medicine; Visit Provider Family Medicine
DX: Z78.0 Asymptomatic menopausal state (principal); Z12.31 Encounter for screening mammogram for malignant neoplasm of breast; M81.0 Age-related osteoporosis without current pathological fracture
CPT/HCPCS: 77080

== ENCOUNTER → 2024-01-01 04:00 | Outpatient (CLI) | payer MEDICARE, MEDICAID, SELFPAY ==
--- NOTE | 2024-01-01 14:14 | DI.MAMMO_ITS ---
Exam(s) MAMMO SCREENING EXAM: MAMMO SCREENING CLINICAL HISTORY: SCREENING MAMMO FOR BREAST CANCER Z12.31 TECHNIQUE: Bilateral full field digital CC and MLO mammographic images were obtained with 3D tomosyn thesis and utilizing computer aided detection (CAD). COMPARISON: Available for comparison. FINDINGS: Masses/Architectural Distortion: There is a new 6 mm nodule in the retroareolar region of the left br east. No areas of architectural distortion are present. Microcalcifications: No suspicious pleomorphic-type are seen. Skin Thickening/Nipple Retraction: None. IMPRESSION: 1. New 6 mm nodule in the retroareolar region of the left breast. 2. Spot compression views are requested for further evaluation. Limited left breast ultrasound is re commended also. BI-RADS Category 0 - Assessment Incomplete: Need additional imaging evaluation Breast Density - Category B - Scattered areas of fibroglandular density Breast density category C or D implies that the patient has dense breast tissue. Dense breast tissue is very common and is not abnormal but dense breast tissue can make it harder to find cancer on a ma mmogram. Also, dense breast tissue may increase their breast cancer risk. This information about the result of the mammogram report was provided to the patient to raise their awareness. Use this report when you speak with the patient about their risks for breast cancer, which includes their family hist ory. At that time, you may recommend for more screening tests (Ultrasound or MRI) as they might be us eful based on their risk. A negative radiographic report should not delay biopsy if a dominant or clinically suspicious mass is present. Up to ten percent of cancers are not identified on mammography. A negative report may reinforce clinical impression. Adenosis and dense breasts may obscure an underlying neoplasm. False positive reports average 6 to 10%. Patient will receive a letter notifying them of these results.
== END ==
PROVIDERS: PCP Family Medicine; Visit Provider Family Medicine
DX: Z12.31 Encounter for screening mammogram for malignant neoplasm of breast (principal); R92.8 Other abnormal and inconclusive findings on diagnostic imaging of breast
CPT/HCPCS: 77063; 77067

== ENCOUNTER → 2024-01-05 04:09 | Outpatient (CLI) | payer MEDICARE, MEDICAID, SELFPAY ==
--- NOTE | 2024-01-05 | DI.MAMMO_ITS ---
Exam(s) MG MAMMO SCREEN CALL BACK UNI US BREAST LT LIMITED EXAM: MG MAMMO SCREEN CALL BACK UNI and U/S breast LT limited CLINICAL HISTORY: F/U ABNL MAMMO, NEW 6 MM NODULE. TECHNIQUE: Craniocaudal and mediolateral oblique Full Field Digital Mammography views of the left br east with Computer Aided Diagnosis followed by Tomosynthesis and left breast ultrasound. COMPARISON: Comparison is made with prior examinations. FINDINGS: Mammography/Tomosynthesis: Masses/Architectural Distortion: There is a persistent well-circumscribed nodule in the retroareolar region of the left breast. Microcalcifictions: No suspicious pleomorphic-type are seen. Skin Thickening/Nipple Retraction: None. Limited left breast US: Echotexture: Normal appearance of the glandular tissue. Shadowing: No suspicious foci. Cyst: There is a 0.3 cm cyst at the 6 o'clock position of the left breast in the retroareolar region. Solid lesions: There is a 0.5 x 0.3 x 0.5 cm isoechoic nodule in the retroareolar region of the left breast. This would appear to correspond to the mammographic abnormality. This may represent an intr aparenchymal lymph node. Ductal dilation: None. IMPRESSION: 1. No evidence of malignancy is noted. 2. Unless there is more urgent need, follow-up screening mammography is recommended, as per [place] [employer] guidelines. 3. The findings were discussed with the patient on the date of the examination. BI-RADS Category 2 - Benign Findings Breast Density - Category B - Scattered areas of fibroglandular density Breast density Category C or D implies that the patient has dense breast tissue. Dense breast tissue can make it harder to find cancer on a mammogram. Dense breast tissue is also associated with an incr eased risk of breast cancer. This information about the result of the mammogram report was provided to the patient to raise their awareness. Use this report when you speak with the patient about their risks for breast cancer, which includes their family history. At that time, you may recommend additional screening tests (Ultrasoun d or MRI) as these tests may add significant information. A negative radiographic report should not delay biopsy if a dominant or clinically suspicious mass is present. Up to ten percent of cancers are not identified on mammography. A negative report may reinforce clinical impression. Adenosis and dense breasts may obscure an underlying neoplasm. False positive reports average 6 to 10%. Patient will receive a letter notifying them of these results.
== END ==
PROVIDERS: PCP Family Medicine; Visit Provider Family Medicine
DX: R92.8 Other abnormal and inconclusive findings on diagnostic imaging of breast (principal); Z12.31 Encounter for screening mammogram for malignant neoplasm of breast
CPT/HCPCS: 76642; 77063; 77067

== ENCOUNTER → 2024-03-03 01:15 | Outpatient (CLI) | payer MEDICARE, MEDICAID, SELFPAY ==
--- OUTSIDE RECORDS SUMMARY | 2024-03-03 01:16 | XMS_ITS ---
Author Organization Unknown Address [address] [place] [address] [phone] Phone Care Team Providers Care Staff Midwife/Apprenticeship Director Name Role Phone JACQUELINE Desouza Attending Unavailable CHIDI Cohen Primary Unavailable Social History Type Status Start Date End Date Code Code Syst em Smoking History Never smoker (Never Smoked) 863250555 SNOMED CT Sex Female Assessment You had the following problems:LOC OSTEOARTH NOS L LEGGERDHYPOTHYROIDISMCHF Hospital Discharge Instructions Should you have any questions prior to discharge, please contact a member of your healthcare team. If you have left the hospital and have any questions, please contact your primary care physician. Reason For Referral No Data Found Problems Problem Start Date Resolved Date Status Code Code System LOC OSTEOARTH NOS L LEG active SNOMED-CT GERD active 456919553 SNOMED-CT HYPOTHYROIDISM active 77871715 SNOME D-CT CHF active 62976833 SNOMED-CT Allergies and Adverse Reactions Allergy Substance Reaction Severity Start Date Concern Status Co de Code System MORPHINE Moderate Active 7052 RxNorm Plan of Treatment No Data Found Encounters Encounter Diagnosis Start Date Code Code Sys tem Nonrheumatic aortic valve disorder, unspecified 2021 SNOMED-CT Personal Care Team Section Performer Name Performer Role Active Date Inactive Da te
--- OUTSIDE RECORDS SUMMARY | 2024-03-03 01:16 | XMS_ITS ---
Author Organization Unknown Address [address] [place] [address] [phone] Phone Care Team Providers Care Agency Cashier Name Role Phone AVRIL Singh Attending Unavailable CHIDI EL Cohen Primary Unavailable Social History Type Status Start Date End Date Code Code Syst em Smoking History Never smoker (Never Smoked) 242963967 SNOMED CT Sex Female Assessment You had [...] NOS L LEG active SNOMED-CT GERD active 088241665 SNOMED-CT HYPOTHYROIDISM active 28408040 SNOME D-CT CHF active 85841866 SNOMED-CT Allergies and Adverse Reactions Allergy Substance Reaction Severity Start Date Concern Status Co de Code System MORPHINE Moderate Active 7052 RxNorm Plan of Treatment No Data Found Encounters Encounter Diagnosis Start Date Code Code Sys tem 06/12/2022 [id number] SNOMED-CT Personal Care Team Section Performer Name Performer Role Active Date Inactive Da te
--- OUTSIDE RECORDS SUMMARY | 2024-03-03 01:16 | XMS_ITS ---
Author Organization Unknown Address [address] [place] [address] [phone] Phone Care Team Providers Care Mothercraft Nurse Name Role Phone CHIDI Cohen Attending Unavailable Results IMMUNOFIXATION AND SPEP SERU M* - Collect Date/Time: 03/06/2022 11:27 [facility] ID: [id number] [address] [place] [address], [id number] LOINC: Test Value Unit Reference Range Code Code System Flag Total Protein 7.4 6.3-8.2 Albumin 55.0 % 55.8-66.1 L Albumin g/dL 4.1 g/dL 3.6-5.2 Alpha 1 3.8 % 2.9-4.9 Alpha-1 Globulins g/dL 0.30 g/dL 0.15-0.40 Alpha 2 11.5 % 7.1-11.8 Alpha-2 Globulins g/dL 0.90 g/dL 0.50-1.00 Beta 12.1 % 8.4-13.1 Beta Globulins g/dL 0.90 g/dL 0.60-1.20 Gamma 17.6 % 11.1-18.8 Gamma Globulins g/dL 1.30 g/dL 0.60-1.60 Immunotyping, Serum (See Note) SED RATE* - Collect Date/Solomon e: 03/06/2022 11:27 [facility] ID: [id number] [address] [place] [address], [address] LOINC: 4537-7 Test Value Unit Reference Range Code Code System Flag SED. RATE 14 mm/hr L=0 H=30 4537-7 LOINC TSH THYROID STIMULATING HORM ONE* - Collect Date/Time: 03/06/2022 11:27 [facility] ID: [id number] [address] [place], [place], [address] LOINC: 3014-8 Test Value Unit Reference Range Code Code System Flag TSH 0.617 uIU/mL L=0.360 H=3.740 3014-8 LOINC CBC W/ DIFFERENTIAL* - Colle ct Date/Time: 03/06/2022 11:27 [facility] ID: [id number] [address] [place], [place], [address] LOINC: 39533-0 Test Value Unit Reference Range Code Code System Flag WBC 9.65 th/cmm L=5.00 H=10.00 6690-2 LOINC NEUT % 60.5 % L=40.0 H=80.0 LYMPH % 25.8 % L=10.0 H=50.0 MONO % 10.8 % L=2.0 H=12.0 28095-8 LOINC EOS % 1.7 % L=0.0 H=8.0 BASO % 0.7 % L=0.0 H=3.0 IG % 0.5 % L=0.0 H=1.1 2514-8 LOINC NRBC % 0.0 % L=0.0 H=0.0 33955-0 LOINC NEUT abs count 5.8 th/cmm L=1.6 H=8.4 751-8 LOINC LYMPH abs count 2.5 th/cmm L=1.5 H=4.0 731-0 LOINC MONO abs count 1.0 th/cmm L=0.2 H=1.0 742-7 LOINC EOS abs count 0.2 th/cmm L=0.0 H=0.5 711-2 LOINC BASO abs count 0.1 th/cmm L=0.0 H=0.2 704-7 LOINC IG abs count 0.1 th/cmm L=0.0 H=0.1 54828-0 LOINC NRBC abs count 0.0 mil/cmm L=0.0 H=0.0 18254-4 LOINC RBC 3.97 mil/cmm L=3.90 H=5.40 789-8 LOINC HEMOGLOBIN 13.4 gm/dL L=12.0 H=16.0 718-7 LOINC HEMATOCRIT 40 % L=37 H=47 4544-3 LOINC MCV 102 fL L=82 H=92 787-2 LOINC H MCH 33.8 pg L=27.0 H=31.0 785-6 LOINC H MCHC 33.2 % L=32.0 H=36.0 786-4 LOINC RDW-SD 47.2 fL L=39.0 H=49.0 788-0 LOINC PLATELET COUNT 272 th/cmm L=150 H=450 777-3 LOINC COMPREHENSIVE METABOLIC PANE L (CMP) - Collect Date/Time: 03/06/2022 11:27 [facility] ID: [id number] [address] [place], [place], [address] LOINC: 97994-4 Test Value Unit Reference Range Code Code System Flag GLUCOSE 146 mg/dL L=70 H=116 2345-7 LOINC H BUN 22 mg/dL L=6 H=25 3094-0 LOINC CREATININE 1.02 mg/dL L=0.51 H=0.95 2160-0 LOINC H SODIUM SERUM 141 mmol/L L=136 H=145 2951-2 LOINC POTASSIUM SERUM 4.1 mmol/L L=3.4 H=5.2 2823-3 LOINC CHLORIDE SERUM 105 mmol/L L=96 H=110 2075-0 LOINC CARBON DIOXIDE (CO2) 31 mmol/L L=22 H=34 2028-9 LOINC ANION GAP 4.9 mmol/L 99824-2 LOINC CALCIUM SERUM 8.9 mg/dL L=8.2 H=10.2 06874-8 LOINC BILIRUBIN TOTAL 0.3 mg/dL L=0.0 H=1.3 1975-2 LOINC ALK. PHOS. 130 U/L L=46 H=116 6768-6 LOINC H SGOT (AST) 25 U/L L=15 H=37 1920-8 LOINC SGPT (ALT) 29 U/L L=12 H=78 1742-6 LOINC TOTAL PROTEIN 7.9 gm/dL L=6.0 H=8.0 2885-2 LOINC ALBUMIN 3.7 gm/dL L=3.4 H=5.0 1751-7 LOINC AGE 76 years eGFR (non-Afr.Amer.) 53 mL/min 47650-9 LOINC eGFR (Afr-Ivorian) 64 mL/min 73703-5 LOINC Social History Type Status Start Date End Date Code Code Syst em Smoking History Never smoker (Never Smoked) 448931710 SNOMED CT Sex Female Assessment You had [...] NOS L LEG active SNOMED-CT GERD active 972089421 SNOMED-CT HYPOTHYROIDISM active 22217212 SNOME D-CT CHF active 87763873 SNOMED-CT Allergies and Adverse Reactions Allergy Substance Reaction Severity Start Date Concern Status Co de Code System MORPHINE Moderate Active 7052 RxNorm Plan of Treatment No Data Found Encounters Encounter Diagnosis Start Date Code Code Sys tem Neuralgia 03/06/2022 45679714 SNOMED-CT Personal Care Team Section Performer Name Performer Role Active Date Inactive Da te
--- OUTSIDE RECORDS SUMMARY | 2024-03-03 01:16 | XMS_ITS ---
Author Organization Unknown Address [address] [place] [address] [phone] Phone Care Team Providers Care Hazardous Materials Waste Technician Name Role Phone AVRIL Singh Attending Unavailable CHIDI Cohen Primary Unavailable Results XR CALCANEUS 2V RT* - Comple giselle: 05/20/2022 10:20 LOINC: [facility] [place], [place] [address] PACS SENIOR BUSINESS INTELLIGENCE ANALYST REPORT Patient Name: TROY SILVA MRN: Sex: : Age: [id number] F 1945 76 Account: Accession: Admit: StayType: [id number] 05/20/2022 CLINIC Ordered: Order ID: Submitted: Ordering Provider: 05/20/2022 10:17 [id number] [facility] Completed: Technologist: Resulted: 05/21/2022 10:17 05/21/2022 08:24 Study Description: XR Calcaneus - 2 Views RT Study Reason: N/A 3 images were obtained. COMPARISON: None. FINDINGS: There is a small plantar calcaneal spur. There is a prominent enthesophyte at the Achilles insertion site. There is soft tissue swelling posterior to the calcaneus. This can be seen with Achilles tendon injury. Degenerative changes are seen at the talonavicular joint and the articulation of the navicular with the cuneiforms. Vascular calcifications are seen in the soft tissues. IMPRESSION: Soft tissue swelling posterior to the calcaneus. If there is concern for Achilles tendon injury., MRI should be considered for further evaluation. Report Digitally Signed by Nicholas Medrano on 05/21/2022 08:24 AM EDT Social History Type Status Start Date End Date Code Code Syst em Smoking History Never smoker (Never Smoked) 958682987 SNOMED CT Sex Female Assessment You had [...] NOS L LEG active SNOMED-CT GERD active 565908480 SNOMED-CT HYPOTHYROIDISM active 67711174 SNOME D-CT CHF active 45672438 SNOMED-CT Allergies and Adverse Reactions Allergy Substance Reaction Severity Start Date Concern Status Co de Code System MORPHINE Moderate Active 7052 RxNorm Plan of Treatment No Data Found Encounters Encounter Diagnosis Start Date Code Code Sys tem 05/20/2022 [id number] SNOMED-CT Personal Care Team Section Performer Name Performer Role Active Date Inactive Da te
--- OUTSIDE RECORDS SUMMARY | 2024-03-03 01:17 | XMS_ITS ---
Author Organization Unknown Address [address] [place] [address] [phone] Phone Care Team Providers Care Molded Grid And Parts Inspector Name Role Phone AVRIL Singh Attending Unavailable CHIDI EL Cohen Primary Unavailable Social History Type Status Start Date End Date Code Code Syst em Smoking History Never smoker (Never Smoked) 910361578 SNOMED CT Sex Female Assessment You had [...] NOS L LEG active SNOMED-CT GERD active 574735131 SNOMED-CT HYPOTHYROIDISM active 93101090 SNOME D-CT CHF active 82429903 SNOMED-CT Allergies and Adverse Reactions Allergy Substance Reaction Severity Start Date Concern Status Co de Code System MORPHINE Moderate Active 7052 RxNorm Plan of Treatment No Data Found Encounters Encounter Diagnosis Start Date Code Code Sys tem 07/10/2022 [id number] SNOMED-CT Personal Care Team Section Performer Name Performer Role Active Date Inactive Da te
--- OUTSIDE RECORDS SUMMARY | 2024-03-03 01:17 | XMS_ITS ---
Author Organization Unknown Address [address] [place] [address] [phone] Phone Care Team Providers Care Machine Binding Folder Name Role Phone JACQUELINE Desouza Attending Unavailable CHIDI Cohen Primary Unavailable Results COMPREHENSIVE METABOLIC PANE L (CMP) - Collect Date/Time: 11/06/2022 15:22 [facility] ID: [id number] [address] [place], [place], [address] LOINC: 28769-8 Test Value Unit Reference Range Code Code System Flag GLUCOSE 100 mg/dL L=70 H=116 2345-7 LOINC BUN 39 mg/dL L=6 H=25 3094-0 LOINC H CREATININE 1.25 mg/dL L=0.51 H=0.95 2160-0 LOINC H SODIUM SERUM 141 mmol/L L=136 H=145 2951-2 LOINC POTASSIUM SERUM 4.3 mmol/L L=3.4 H=5.2 2823-3 LOINC CHLORIDE SERUM 102 mmol/L L=96 H=110 2075-0 LOINC CARBON DIOXIDE (CO2) 30 mmol/L L=22 H=34 2028-9 LOINC ANION GAP 9.3 mmol/L 72946-8 LOINC CALCIUM SERUM 9.2 mg/dL L=8.2 H=10.2 54332-0 LOINC BILIRUBIN TOTAL 0.3 mg/dL L=0.0 H=1.3 1975-2 LOINC ALK. PHOS. 135 U/L L=46 H=116 6768-6 LOINC H SGOT (AST) 26 U/L L=15 H=37 1920-8 LOINC SGPT (ALT) 35 U/L L=12 H=78 1742-6 LOINC TOTAL PROTEIN 7.1 gm/dL L=6.0 H=8.0 2885-2 LOINC ALBUMIN 3.8 gm/dL L=3.4 H=5.0 1751-7 LOINC AGE 76 years eGFR (non-Afr.Amer.) 42 mL/min 96873-3 LOINC eGFR (Afr-Maldivian) 51 mL/min 04720-3 LOINC CBC W/ DIFFERENTIAL* - Colle ct Date/Time: 11/06/2022 15:22 [facility] ID: [id number] [address] [place] [place], [place], [address] LOINC: 72333-3 Test Value Unit Reference Range Code Code System Flag WBC 15.74 th/cmm L=5.00 H=10.00 6690-2 LOINC H NEUT % 68.1 % L=40.0 H=80.0 LYMPH % 20.7 % L=10.0 H=50.0 MONO % 9.7 % L=2.0 H=12.0 29719-4 LOINC EOS % 0.4 % L=0.0 H=8.0 BASO % 0.3 % L=0.0 H=3.0 IG % 0.8 % L=0.0 H=1.1 2514-8 LOINC NRBC % 0.0 % L=0.0 H=0.0 67496-7 LOINC NEUT abs count 10.7 th/cmm L=1.6 H=8.4 751-8 LOINC H LYMPH abs count 3.3 th/cmm L=1.5 H=4.0 731-0 LOINC MONO abs count 1.5 th/cmm L=0.2 H=1.0 742-7 LOINC H EOS abs count 0.1 th/cmm L=0.0 H=0.5 711-2 LOINC BASO abs count 0.0 th/cmm L=0.0 H=0.2 704-7 LOINC IG abs count 0.1 th/cmm L=0.0 H=0.1 92756-7 LOINC NRBC abs count 0.0 mil/cmm L=0.0 H=0.0 22927-4 LOINC RBC 4.14 mil/cmm L=3.90 H=5.40 789-8 LOINC HEMOGLOBIN 13.9 gm/dL L=12.0 H=16.0 718-7 LOINC HEMATOCRIT 41 % L=37 H=47 4544-3 LOINC MCV 98 fL L=82 H=92 787-2 LOINC H MCH 33.6 pg L=27.0 H=31.0 785-6 LOINC H MCHC 34.2 % L=32.0 H=36.0 786-4 LOINC RDW-SD 47.5 fL L=39.0 H=49.0 788-0 LOINC PLATELET COUNT 261 th/cmm L=150 H=450 777-3 LOINC BNP (PRO-B NATRIURETIC PEPTI DE) - Collect Date/Time: 11/06/2022 15:22 [facility] ID: [id number] [address] [place] [address], [facility] LOINC: 79516-9 Test Value Unit Reference Range Code Code System Flag NT-proBNP 664.0 pg/mL L=0.0 H=125 12579-8 LOINC H XR CHEST 2V PA AND LATERAL - Completed: 11/06/2022 15:57 LOINC: [facility] [place], [place] [address] PACS RADIOGRAPHER CARDIAC CATHETERIZATION REPORT Patient Name: TROY SILVA MRN: Sex: : Age: [id number] F 1945 76 Account: Accession: Admit: StayType: [id number] 11/06/2022 CLINIC Ordered: Order ID: Submitted: Ordering Provider: 11/06/2022 15:21 [id number] [facility] RICKETTS Completed: Technologist: Resulted: 11/06/2022 15:57 LXR 11/07/2022 07:47 Study Description: XR CHEST 2V PA AND LATERAL Study Reason: JONES TECHNIQUE: 2D digital imaging was performed. PA and Lateral views COMPARISON: Prior chest x-ray 05/14/2020. FINDINGS: There are sternotomy wires and mild cardiomegaly. Mediastinum not widened. Lungs are clear. There are no infiltrates nor pleural effusions. No pulmonary edema. IMPRESSION: No acute pulmonary findings. Sternotomy. Cardiomegaly again noted. Report Digitally Signed by Uvaldo East on 11/07/2022 07:47 AM EDT Social History Type Status Start Date End Date Code Code Syst em Smoking History Never smoker (Never Smoked) 937095524 SNOMED CT Sex Female Assessment You had [...] NOS L LEG active SNOMED-CT GERD active 202197979 SNOMED-CT HYPOTHYROIDISM active 99027965 SNOME D-CT CHF active 06172774 SNOMED-CT Allergies and Adverse Reactions Allergy Substance Reaction Severity Start Date Concern Status Co de Code System MORPHINE Moderate Active 7052 RxNorm Plan of Treatment No Data Found Encounters Encounter Diagnosis Start Date Code Code Sys tem Hypertensive heart disease w ith congestive heart failure 11/06/2022 2210380 SNOMED-CT Personal Care Team Section Performer Name Performer Role Active Date Inactive Da te
--- OUTSIDE RECORDS SUMMARY | 2024-03-03 01:18 | XMS_ITS ---
Author Organization Unknown Address [address] [place] [address] [phone] Phone Care Team Providers Care Repair Order Clerk Name Role Phone JACQUELINE Desouza Attending Unavailable CHIDI Cohen Primary Unavailable Social History Type Status Start Date End Date Code Code Syst em Smoking History Never smoker (Never Smoked) 302829009 SNOMED CT Sex Female Assessment You had [...] NOS L LEG active SNOMED-CT GERD active 654310405 SNOMED-CT HYPOTHYROIDISM active 63435585 SNOME D-CT CHF active 63806450 SNOMED-CT Allergies and Adverse Reactions Allergy Substance Reaction Severity Start Date Concern Status Co de Code System MORPHINE Moderate Active 7052 RxNorm Plan of Treatment No Data Found Encounters Encounter Diagnosis Start Date Code Code Sys tem Hypertensive heart disease w ith congestive heart failure 11/05/2023 0575428 SNOMED-CT Personal Care Team Section Performer Name Performer Role Active Date Inactive Da te
--- OUTSIDE RECORDS SUMMARY | 2024-03-03 01:18 | XMS_ITS | Data Portability ---
Author Organization [facility] [place] [address] Care Team Providers Care Land Development Manager Name Role Phone JACQUELINE ROCKWELL Batcher Operator [facility] GENERAL SURGERY Gastroenterologi st KELLY STEVENSON Bridge Crane Operator [facility] Orthopedist [facility] Family Ny dicine ROSETTE MARIN Physical Therapist [phone] ALYSSA MONTEZ Sleep Medicine VIJI STEWART Batcher Operator Assessment Encounter Date Assessment Date Assessment LastModified by Organization Details LastModified Time 08/18/2023 08/18/2023 77-year-old female presented for initiation of primary care. USPSTF guidelines reviewed. Patient to schedule for health maintenance exam when she returns home from [place] later this spring. -CRC screening: aged out at 76, -Mammo: aged out at 76 -lung ca screen: non-smoker -Cardiology: f/u in October 2023 at [facility] -lipid screening: Completed today in office -DM screening: Not applicable patient has had normal glucose levels. A1c will not be covered by Medicare. -HIV/HCV/STI screening: Low risk -Depression Screen: PHQ 2 score of 0 -IZ: Tetanus updated today. -Vision: Not discussed -Dental: Has upper and lower dentures -Adv Directives: To be discussed at next appointment -Counseled on healthy diet, exercise, smoking cessation, sleep hygiene, and avoidance of etoh/illicits. -RTC in 3mo for Medicare wellness exam, sooner prn [email or web address] Not available 08/18/2023 22:14:42 11/16/2023 11/16/2023 The total time devoted to today's encounter, including both the tmmt-mr-urbo time with the patient and/or family/caregiver and mmb-blqg-xd-face time I personally spent is 42 minutes. Not available 11/16/2023 11:42:38 12/09/2023 12/09/2023 Patient presente d to office today for their Medicare Annual Wellness Visit. Education was provided on healthy nutrition, including a diet rich in fruits and vegetables, minimizing simple carbohydrates, salt, and saturated fats. Encouraged regular cardiovascular exercise such as walking at least 30 minutes daily, 5 times per week. Emphasized preventive health measures and educated pt on fall prevention and community-based lifestyle interventions to help reduce health risks and promote healthy living. Personalized prevention plan (PPP) completed and reviewed with patient. Patient was given written copy of PPP at conclusion of visit, detailing prior screening and 5-10 year future screening plan including: screenings for breast cancer and colorectal cancer, immunizations, and other age appropriate screenings consistent with USPSTF and ACIP guidelines Not available 12/09/2023 13:40:14 01/05/2024 01/05/2024 The patient is a 78-year-old female presenting with right lower back pain radiating into the right leg, left ankle weakness, and a recent mammogram finding. The back pain started about two weeks ago after helping with a yard sale and has persisted since. The patient's left ankle weakness has been present for some time. The mammogram showed a potential area of concern, and the patient is scheduled for an ultrasound today. [email or web address] Not available 01/05/2024 11:57:45 Plan of Treatment Reminders Order Date Submit Date Provider Last Modified By Organization Details Last Modified Time Details Appointments Follow Up 30 2023 10:20A M SACHIN JAMES Not available Not available Not available Lab BMP, serum or plasma 2023 024 [email or web address] [facility] Laboratory (Registration ), [address] [place] [address] [place], [address], 09/04/2023 07:54:30 lipid panel, serum [address] Laboratory (Registration ), [address] [place] [address] [place], [address], 08/25/2023 11:02:56 hemoglobi n A1C, fingersti ck [address], [address] [place] [address], [phone], 11/03/2023 11:52:18 influenza virus A + B + SARS-CoV- 2 (COVID19) Ag panel, rapid IA, upper respirato ry specimen [address], [address] [place] [address], [phone], 11/03/2023 11:12:09 culture, sputum 2023 024 [email or web address] [facility] (Registration ), [address] [place] [address] [place], [address], 02/24/2024 10:46:11 CMP, serum or plasma - Patient coming there today for draw 2023 024 [facility] Laboratory (Registration ), [address] [place] [address] [place], [address], 11/17/2023 00:06:28 CBC w/ auto diff - Patient coming there today for draw 2023 024 [facility] Laboratory (Registration ), [address] [place] [address] [place], [address], 11/16/2023 23:35:22 TSH, serum, reflex free T4 - Patient coming there today for draw [address] Laboratory (Registration ), [address] [place] [address] [place], [address], 11/23/2023 07:04:19 fecal occult blood, immunoass ay, stool [address] Laboratory (Registration ), [address] [place] [address] [place], [address], 01/25/2024 12:40:36 noninvasi ve colorecta l cancer DNA + occult blood screening , QL, stool 2023 024 [place] [employer] [facility] (Cologuard Orders Only), [address], [address], [place], [address], 12/28/2023 13:52:20 Referral dermatolo gist referral - hx BCC nose, eval new telangiec tasias on nose, + full skin exam pls [address] Dermatology, Medical [address], [address], [place], [address], 12/23/2023 15:40:12 podiatris t referral [address] Podiatry, [address] [place] [address] [place], [address], 01/25/2024 12:40:55 physical therapist referral - lower right back pain x 2-3 weeks, recommend stretchin g regimen. Also, c/o chronic left ankle weakness. Please assess both concerns 2023 024 [place] Rosette Marin PT, [address] [place], [address], 01/24/2024 16:28:42 Procedures None recorded. Surgeries None recorded. Imaging XR, chest, 2 view - eval for pneumonia : STAT reading (persiste nt cough/pur ulent sputum that hasn't responded to Abx) 2023 024 [email or web address] [facility] (Radiology), [address] [place] [address] [place], [address], 11/17/2023 06:58:37 MAMMO, screening , digital, bilateral 2023 024 [facility] (Radiology), [address] [place] [address] [place], [address], 01/22/2024 14:44:17 DEXA - unable to locate any previous scan, pt does not recall every having a scan [email or web address] (Radiology), [address] [place] [address] [place], [address], 01/22/2024 14:43:07 Medication Orders simvastat in 20 mg tablet 2023 024 [email or web address] [facility], [address], [place], [id number], 08/18/2023 15:01:34 benzonata te 100 mg capsule 2023 024 [email or web address] [facility] [employer] #04993, [address], [place], [id number], 11/16/2023 09:23:55 fluticaso ne propionat e 50 mcg/actua tion nasal spray,stephan pension 2023 024 [email or web address] [facility], [address], [place], [id number], 11/03/2023 11:04:02 Patient TargetsNo targets recorded. Patient Instructions Encounter Date Encounter Id Patient Instructions Last Modified By Organization Details Last Modified Time 11/16/2023 [id number] will cx schedule d lab appt as drawing them today. She will keep f/u with Kristie 12/08. [email or web address] Not available 11/16/2023 11:41:47 12/09/2023 [id number] Discussed and explained advance directives such as standard forms to the {{patient caregiv er patient and caregiver}}. Face to face discussion lasted for a duration of ___ minutes. Not available 12/09/2023 13:40:14 01/05/2024 [id number] - Attend scheduled ultrasound appointment for the left breast today - Begin physical therapy for right lower back pain and left ankle weakness - Continue stretching exercises and monitor symptoms - Discontinue omeprazole, use Tums as needed for stomach burn - Discontinue chloroquine, use tonic water for leg cramps as needed - Maintain adequate hydration - Follow up with clinician after ultrasound and physical therapy appointments [email or web address] Not available 01/05/2024 11:52:15 Reason for Referral Bridge Crane Operator Referral for N eoplasm of uncertain behavior of skin hx BCC nose, eval new telangiectasias on nose, + full skin exam pls Referring Physician: Qing Baird [facility], Encounter Date: 11/16/2023 Dye House Supervisor Referral for Foot pain Referring Physician: Sachin Limon [facility], Encounter Date: 12/09/2023 Physical Therapist Referral for Low back pain lower right back pain x 2-3 weeks, recommend stretching regimen. Also, c/o chronic left ankle weakness. Please assess both concerns Referring Physician: Sachin Limon [facility], Encounter Date: 01/05/2024 Results Created Date Observation Date Name Description Value Unit Range Abnormal Flag LastModifiedBy Organization Detail LastModifiedTime 08/18/19 24 08/18/2023 LIPID 2 cholesterol 115 mg/dL <200 Not Available Keesha [email or web address] [place], [address] 08/18/2023 22:33:37 08/18/19 24 08/18/2023 LIPID 2 triglyceride 135 mg/dL <150 Not Available Peter kaur [address] [place] [facility] [place], [address] 08/18/2023 22:33:37 08/18/19 24 08/18/2023 LIPID 2 HDL cholesterol 46 mg/dL 40-60 Not Available Melia sinha [address] [place], [address] 08/18/2023 22:33:37 08/18/19 24 08/18/2023 LIPID 2 calculated LDL 42 mg/dL <100 Not Available Merary sahni [address] [place], [address] 08/18/2023 22:33:37 11/03/19 24 11/03/2023 hemog lobin A1C, shashanke rstic k hemoglobin A1C 4.9 % <5.7 Not Available [facility] [address] [place], [address], 11/03/2023 11:34:37 11/03/19 24 11/03/2023 influ gerardo virus A + B + SARS- CoV-2 (COVI D19) Ag panel , rapid IA, upper respi rator y speci men Influenza A negati ve Not Available [address], [address], 11/03/2023 10:47:09 11/03/19 24 11/03/2023 influ gerardo virus A + B + SARS- CoV-2 (COVI D19) Ag panel , rapid IA, upper respi rator y speci men Influenza B negati ve Not Available [address], [address], 11/03/2023 10:47:09 11/03/19 24 11/03/2023 influ gerardo virus A + B + SARS- CoV-2 (COVI D19) Ag panel , rapid IA, upper respi rator y speci men SARS-COV-2 negati ve Not Available [address], [address], 11/03/2023 10:47:09 11/16/19 24 11/16/2023 COMPL ETE BLOOD COUNT W/DIF F WBC 8.33 10_3/ uL 4.4-10 .8 normal Not Available [address] [place], [address] 11/16/2023 23:35:22 11/16/19 24 11/16/2023 COMPL ETE BLOOD COUNT W/DIF F RBC 3.56 10_6/ uL 3.93-5 .22 low Not Available [address] [place], [address] 11/16/2023 23:35:22 11/16/19 24 11/16/2023 COMPL ETE BLOOD COUNT W/DIF F HGB 11.8 g/dL 11.2-1 5.7 normal Not Available [address] [place], [address] 11/16/2023 23:35:22 11/16/19 24 11/16/2023 COMPL ETE BLOOD COUNT W/DIF F HCT 36.1 % 36.0-4 6.0 normal Not Available [address] [place], [address] 11/16/2023 23:35:22 11/16/19 24 11/16/2023 COMPL ETE BLOOD COUNT W/DIF F MCV 101 fL 80-95 high Not Available [address] [place], [address] 11/16/2023 23:35:22 11/16/19 24 11/16/2023 COMPL ETE BLOOD COUNT W/DIF F MCH 33.1 pg 27.0-3 3.0 high Not Available [address] [place], [address] 11/16/2023 23:35:22 11/16/19 24 11/16/2023 COMPL ETE BLOOD COUNT W/DIF F MCHC 32.7 % 32.0-3 6.0 normal Not Available [address] [place], [address] 11/16/2023 23:35:22 11/16/19 24 11/16/2023 COMPL ETE BLOOD COUNT W/DIF F RDW 12.8 % 11.7-1 4.6 normal Not Available [address] [place], [address] 11/16/2023 23:35:22 11/16/19 24 11/16/2023 COMPL ETE BLOOD COUNT W/DIF F platelet count 185 10_3/ uL 130-40 0 normal Not Available [address] [place], [address] 11/16/2023 23:35:22 11/16/19 24 11/16/2023 COMPL ETE BLOOD COUNT W/DIF F MPV 10.1 fL 8.0-11 .0 normal Not Available [address] [place], [address] 11/16/2023 23:35:22 11/16/19 24 11/16/2023 COMPL ETE BLOOD COUNT W/DIF F neutrophils % 48.9 Not Available [address] [place], [address] 11/16/2023 23:35:22 11/16/19 24 11/16/2023 COMPL ETE BLOOD COUNT W/DIF F lymphocytes % 36.4 Not Available [address] [place], [address] 11/16/2023 23:35:22 11/16/19 24 11/16/2023 COMPL ETE BLOOD COUNT W/DIF F monocytes % 11.3 Not Available [address] [place], [address] 11/16/2023 23:35:22 11/16/19 24 11/16/2023 COMPL ETE BLOOD COUNT W/DIF F eosinophils % 2.6 Not Available [address] [place], [address] 11/16/2023 23:35:22 11/16/19 24 11/16/2023 COMPL ETE BLOOD COUNT W/DIF F basophils % 0.6 Not Available [address] [place], [address] 11/16/2023 23:35:22 11/16/19 24 11/16/2023 COMPL ETE BLOOD COUNT W/DIF F immature grans % 0.2 Not Available [address] [place], [address] 11/16/2023 23:35:22 11/16/19 24 11/16/2023 COMPL ETE BLOOD COUNT W/DIF F nucleated RBC 0.0 % 0.0-0. 3 normal Not Available [address] [place], [address] 11/16/2023 23:35:22 11/16/19 24 11/16/2023 COMPL ETE BLOOD COUNT W/DIF F absolute neutrophil count 4.07 10_3/ uL 1.2-6. 7 normal Not Available [address] [place], [address] 11/16/2023 23:35:22 11/16/19 24 11/16/2023 COMPL ETE BLOOD COUNT W/DIF F absolute lymphocyte count 3.03 10_3/ uL 1.2-3. 4 normal Not Available [address] [place], [address] 11/16/2023 23:35:22 11/16/19 24 11/16/2023 COMPL ETE BLOOD COUNT W/DIF F absolute monocyte count 0.94 10_3/ uL 0.1-0. 8 high Not Available [address] [place], [address] 11/16/2023 23:35:22 11/16/19 24 11/16/2023 COMPL ETE BLOOD COUNT W/DIF F absolute eosinophil count 0.22 10_3/ uL 0.0-0. 7 normal Not Available [address] [place], [address] 11/16/2023 23:35:22 11/16/19 24 11/16/2023 COMPL ETE BLOOD COUNT W/DIF F absolute basophil count 0.05 10_3/ uL 0.0-0. 2 normal Not Available [address] [place], [address] 11/16/2023 23:35:22 11/16/19 24 11/16/2023 COMPR EHENS THELMA METAB OLIC PANEL calcium 9.4 mg/dL 8.5-10 .1 normal Not Available [address] [place], [address] 11/17/2023 00:06:28 11/16/19 24 11/16/2023 COMPR EHENS THELMA METAB OLIC PANEL glucose 103 mg/dL 74-106 normal Not Available Claudia cool [address] [place], [address] 11/17/2023 00:06:28 11/16/19 24 11/16/2023 COMPR EHENS THELMA METAB OLIC PANEL BUN 28 mg/dL 7-18 high Not Available [address] [place], [address] 11/17/2023 00:06:28 11/16/19 24 11/16/2023 COMPR EHENS THELMA METAB OLIC PANEL creatinine 1.2 mg/dL 0.55-1 .02 high Not Available [address] [place], [address] 11/17/2023 00:06:28 11/16/19 24 11/16/2023 COMPR EHENS THELMA METAB OLIC PANEL estimated GFR 46.91 mL/min /1.73m 2 Not Available [address] [place], [address] 11/17/2023 00:06:28 11/16/19 24 11/16/2023 COMPR EHENS THELMA METAB OLIC PANEL total protein 7.3 g/dL 6.4-8. 2 normal Not Available [address] [place], [address] 11/17/2023 00:06:28 11/16/19 24 11/16/2023 COMPR EHENS THELMA METAB OLIC PANEL albumin 3.4 g/dL 3.4-5. 0 normal Not Available [address] [place], [address] 11/17/2023 00:06:28 11/16/19 24 11/16/2023 COMPR EHENS THELMA METAB OLIC PANEL bilirubin, total 0.4 mg/dL 0.2-1. 0 normal Not Available [address] [place], [address] 11/17/2023 00:06:28 11/16/19 24 11/16/2023 COMPR EHENS THELMA METAB OLIC PANEL alk phos 123 U/L 46-116 high Not Available [address] [place], [address] 11/17/2023 00:06:28 11/16/19 24 11/16/2023 COMPR EHENS THELMA METAB OLIC PANEL sodium 148 mmol/ L 136-14 5 high Not Available [address] [place], [address] 11/17/2023 00:06:28 11/16/19 24 11/16/2023 COMPR EHENS THELMA METAB OLIC PANEL potassium 4.2 mmol/ L 3.5-5. 1 normal Not Available [address] [place], [address] 11/17/2023 00:06:28 11/16/19 24 11/16/2023 COMPR EHENS THELMA METAB OLIC PANEL chloride 108 mmol/ L 98-107 high Not Available [address] [place], [address] 11/17/2023 00:06:28 11/16/19 24 11/16/2023 COMPR EHENS THELMA METAB OLIC PANEL CO2 29.3 mmol/ L 21.0-3 2.0 normal Not Available [address] [place], [address] 11/17/2023 00:06:28 11/16/19 24 11/16/2023 COMPR EHENS THELMA METAB OLIC PANEL anion gap 10.7 mmol/ L 3-11 normal Not Available [address] [place], [address] 11/17/2023 00:06:28 11/16/19 24 11/16/2023 COMPR EHENS THELMA METAB OLIC PANEL AST 31 U/L 15-37 normal Not Available [address] [place], [address] 11/17/2023 00:06:28 11/16/19 24 11/16/2023 COMPR EHENS THELMA METAB OLIC PANEL ALT 38 U/L 14-59 normal Not Available [address] [place], [address] 11/17/2023 00:06:28 11/16/19 24 11/16/2023 TSH (W/RE F FT4) TSH (w/ref FT4) 0.14 uIU/m L 0.36-3 .74 low Not Available [address] [place], [address] 11/17/2023 00:06:28 11/16/19 24 11/16/2023 TSH (W/RE F FT4) TSH (w/ref FT4) 0.14 uIU/m L 0.36-3 .74 low Not Available [facility] [address] [facility] [place], [address] 11/17/2023 00:22:31 11/16/19 24 11/16/2023 FREE T4 free T4 1.08 NG/dL 0.76-1 .46 normal Not Available [place] [address] [facility] [place], [address] 11/17/2023 00:22:31 12/24/19 24 12/24/2023 COLOG UARD cologuard result reportable Sample Could Not Be Proces sed n/a Not Available [facility] (Cologuard Orders Only) [address], [place], [address], 12/28/2023 13:52:20 02/21/20 24 02/21/2024 COLOG UARD cologuard result reportable Negati ve negati ve normal Not Available [facility] (Cologuard Orders Only) [address], [place], [address], 03/02/2024 01:39:38 11/16/19 24 11/16/2023 XR, chest , 2 view Patien t Name: Liya Anders Unit #: [id number] Loc: DI Orderi ng [facility] er: Qing Baird t #: [id number] Status : REG CLI Primar y Care Provid er: Reddy t,Abig ail Date of Exam: Sex: F Admiss ion Date: : 1945 Age: 77 Exam(s ) XR CHEST 2V PA LATERA L EXAM: XR CHEST 2V PA LATERA L CLINIC AL HISTOR Y: CHRONI C COUGH, r05.3, ? PNEUMO RICKI, PURULE NT SPUTUM TECHNI QUE: 2D digita l imagin g was perfor med of the chest. Images were obtain ed. PA and latera l views were obtain ed. COMPAR ROSA: No exams were availa ble for compar rosa FINDIN GS: MEDIAS TINUM: Normal . HEART: Normal . There is an aortic valve replac ement. PULMON FARIDA VASCUL ATURE: Normal . LUNGS: The lungs appear hyperi nflate d sugges ting underl loren COPD. No focal consol idatin g infilt rates are seen. PLEURA L SPACE: No pleura l effusi on or pneumo thorax . BONE:W ithin normal limits for the patien t's age. Sterna l wires are in place. OTHER FINDIN GS:Nor mal. IMPRES MARU: No focal infilt rates. DATA REPOSI TORY: RADIAT ION DOSE DELIVE RED: Ordere d By: Qing Baird CC: ------ ------ ------ ------ ------ ------ ------ ------ ------ ------ ------ ------ - Dictat ed By: Nicholas Medrano M.D. 1332 1332 Transc ribed By: Nicholas Medrano 1332 This is privil eged, confid ential inform ation intend ed only for the provid er named. Any use or distri bution by any person other than this provid er is strict ly prohib ited. If you receiv e this report in error, please notify us immedi ately at and return the origin al report to us at the addres s above. Thank- you. [email or web address] [facility] [address] [place], [address] 11/17/2023 17:01:56 12/17/19 24 12/17/2023 NAVDEEPFrancisco caro Name: Liya Anders Unit #: [id number] Loc: DI Orderi ng Provid er: Zinapelon gordoReddy Accoun t #: [id number] Status : REG CLI Primar y Care Provid er: Zinaos tAbig ail Date of Exam: Sex: F Admiss ion Date: : 1945 Age: 78 Exam(s ) XR DEXA BONE DENSIT Y W/WO DAVID EXAM: XR DEXA BONE DENSIT Y W/WO DAVID CLINIC AL HISTOR Y: Z78.0 Asympt zack [facility] state TECHNI QUE: Hologi c Horizo n C densit ometer analys is of left hip and lumbar spine . Latera l survey image of the thorac ic and lumbar spine. COMPAR ROSA: No exams were availa ble for compar rosa FINDIN GS: Latera l view of the thorac ic and lumbar spine shows no eviden ce of compre ssion fractu res. Bone minera l densit y measur ements of the lumbar spine corres pond to a total T-scor e of 0.2, in the normal range. There are promin ent degene rative change s with endpla te osteop hytes which could falsel y elevat e the bone minera l densit y measur ements . Bone minera l densit y measur ements of the left hip corres pond to a total T-scor e of -1.5. The femora l neck T-scor e is -1.7, in the osteop enic range. . Thelef t forear m bone minera l densit y measur ements are not perfor med due to histor y of fractu re. IMPRES MARU: Normal bone minera l densit y of the spine. Osteop enia of the hip. Ordere d By: Reddy Lee CC: ------ ------ ------ ------ ------ ------ ------ ------ ------ ------ ------ ------ - Dictat ed By: Betzaida Gibbons 1729 Transc ribed By: Perez Galvin 1729 This is privil eged, confid ential inform ation intend ed only for the provid er named. Any use or distri bution by any person other than this provid er is strict ly prohib ited. If you receiv e this report in error, please notify us immedi ately at and return the origin al report to us at the addres s above. Thank- you. [email or web address] [facility] [address] [facility] [place], [address] 01/22/2024 14:43:06 01/01/20 24 01/01/2024 MAMMO , scree lucho, digit al, bilat eral Patien t Name: Liya Anders Unit #: [id number] Loc: DI Orderi ng Provid er: Provos tAbig ail Accoun t #: [id number] Status : REG CLI Primar y Care Provid er: Provos tNatalyg ail Date of Exam: 02/16 Sex: F Admiss ion Date: : 1945 Age: 78 Exam(s ) MG MAMMO SCREEN ING EXAM: MG MAMMO SCREEN ING CLINIC AL HISTOR Y: SCREEN ING MAMMO FOR BREAST CANCER Z12.31 TECHNI QUE: Bilate ral full field digita l CC and MLO mammog raphic images were obtain ed with 3D tomosy nthesi s and utiliz ing comput er aided detect ion (CAD). COMPAR ROSA: Availa ble for compar rosa. FINDIN GS: Masses /Archi tectur al Distor tion: There is a new 6 mm nodule in the retroa reolar region of the left breast . No areas of dana ectura l distor tion are presen t. Microc alcifi cation s: No suspic ious pleomo rphic- type are seen. Skin Thicke lucho/N ipple Retrac tion: None. IMPRES MARU: 1. New 6 mm nodule in the retroa reolar region of the left breast . 2. Spot compre ssion views are reques giselle for furthe r evalua tion. Limite d left breast ultras ound is recomm ended also. BI-RAD S Catego ry 0 - Assess ment Incomp lete: Need additi onal imagin g evalua tion Breast Densit y - Catego ry B - Scatte red areas of fibrog landul ar densit y Breast densit y catego ry C or D implie s that the patien t has dense breast tissue . Dense breast tissue is very common and is not abnorm al but dense breast tissue can make it harder to find cancer on a mammog carmen. Also, dense breast tissue may increa se their breast cancer risk. This inform ation about the result of the mammog carmen report was provid ed to the patien t to raise their awaren ess. Use this report when you speak with the patien t about their risks for breast cancer , which includ es their family histor y. At that time, you may recomm end for more screen ing tests (Ultra sound or MRI) as they might be useful based on their risk. A negati ve radiog raphic report should not delay biopsy if a domina nt or clinic ally suspic ious mass is presen t. Up to ten percen t of cancer s are not identi fied on mammog ely. A negati ve report may reinfo rce clinic al impres maru. Adenos is and dense breast s may obscur e an underl loren neopla sm. False positi ve report s averag e 6 to 10%. Patien t will receiv e a letter notify ing them of these result s. Ordere d By: Reddy Lee CC: ------ ------ ------ ------ ------ ------ ------ ------ ------ ------ ------ ------ - Dictat ed By: Nicholas Medrano M.D. 1516 1516 Transc ribed By: Nicholas Medrano 1516 This is privil eged, confid ential inform ation intend ed only for the provid er named. Any use or distri bution by any person other than this provid er is strict ly prohib ited. If you receiv e this report in error, please notify us immedi luz marinaly at [phone] and return the origin al report to us at the addres s above. Thank- you. [email or web address] [facility] [address], [place], [address] 01/22/2024 14:44:16 01/05/20 24 01/05/2024 MAMMO , scree lucho, unila teral Patikenya caro Name: Liya Anders Unit #: [id number] Loc: DI Orderi ng Provid er: Reddy Lee Accoun t #: [id number] Status : REG CLI Primar y Care Provid er: Reddy Lee ail Date of Exam: 06/19 Sex: F Admiss ion Date: : 1945 Age: 78 Exam(s ) MG MAMMO SCREEN CALL BACK UNI US BREAST LT LIMITE D EXAM: MG MAMMO SCREEN CALL BACK UNI and U/S breast LT limite d CLINIC AL HISTOR Y: F/U ABNL MAMMO, NEW 6 MM NODULE . TECHNI QUE: Cranio caudal and mediol ateral obliqu e Full Field Digita l Mammog ely views of the left breast with Comput er Aided Diagno sis follow ed by Tomosblu hankins s and left breast ultras ound. COMPAR ROSA: Compar rosa is made with prior examin ations . FINDIN GS: Mammog ely/ Tomosy nhi s: Masses /Archi tectur al Distor tion: There is a persis tent well-c ircums cribed nodule in the retroa reolar region of the left breast . Microc alcifi ctions : No suspic ious pleomo rphic- type are seen. Skin Thicke lucho/N ipple Retrac tion: None. Limite d left breast US: Echote xture: Normal appear ance of the glandu lar tissue . Shadow ing: No suspic ious foci. Cyst: There is a 0.3 cm cyst at the 6 o'cloc k positi on of the left breast in the retroa reolar region . Solid lesion s: There is a 0.5 x 0.3 x 0.5 cm isoech oic nodule in the retroa reolar region of the left breast . This would appear to corres pond to the mammog raphic abnorm ality. This may repres ent an intrap arench ymal lymph node. Ductal dilati on: None. IMPRES MARU: 1. No eviden ce of malign anabel is noted. 2. Unless there is more urgent need, follow -up screen ing mammog ely is recomm ended, as per [facility] guidel luis eduardo. 3. The findin gs were discus sed with the patien t on the date of the examin ation. BI-RAD S Catego ry 2 - Benign Findin gs Breast Densit y - Catego ry B - Scatte red areas of fibrog landul ar densit y Breast densit y Catego ry C or D implie s that the patien t has dense breast tissue . Dense breast tissue can make it harder to find cancer on a mammog carmen. Dense breast tissue is also associ ated with an increa sed risk of breast cancer . This inform ation about the result of the mammog carmen report was provid ed to the patien t to raise their awaren ess. Use this report when you speak with the patien t about their risks for breast cancer , which includ es their family histor y. At that time, you may recomm end additi onal screen ing tests (Ultra sound or MRI) as these tests may add signif icant inform ation. A negati ve radiog raphic report should not delay biopsy if a domina nt or clinic ally suspic ious mass is presen t. Up to ten percen t of cancer s are not identi fied on mammog ely. A negati ve report may reinfo rce clinic al impres maru. Adenos is and dense breast s may obscur e an underl loren neopla sm. False positi ve report s averag e 6 to 10%. Patien t will receiv e a letter notify ing them of these result s. Ordere d By: Reddy Lee CC: ------ ------ ------ ------ ------ ------ ------ ------ ------ ------ ------ ------ - Dictat ed By: Nicholas Medrano M.D. 1455 1455 Transc ribed By: Nicholas Medrano 2215 This is privil eged, confid ential inform ation intend ed only for the provid er named. Any use or distri bution by any person other than this provid er is strict ly prohib ited. If you receiv e this report in error, please notify us immumu morgan at [phone] and return the origin al report to us at the addres s above. Thank- you. [email or web address] [facility] [address], [place], [address] 02/02/2024 15:43:58 01/05/20 24 01/05/2024 US, pawel t, unila teral , limit ed Patien t Name: Liya Anders Unit #: [id number] Loc: DI Orderi ng Provid er: Zinapelon caroNatalyjesika muniz Accoun t #: [id number] Status : REG CLI Primar y Care Provid er: Reddy Lee Date of Exam: 06/19 Sex: F Admiss ion Date: : 1945 Age: 78 Exam(s ) MG MAMMO SCREEN CALL BACK UNI US BREAST LT LIMITE D EXAM: MG MAMMO SCREEN CALL BACK UNI and U/S breast LT limite d CLINIC AL HISTOR Y: F/U ABNL MAMMO, NEW 6 MM NODULE . TECHNI QUE: Cranio caudal and mediol ateral obliqu e Full Field Digita l Mammog ely views of the left breast with Comput er Aided Diagno sis follow ed by Tommirta hankins s and left breast ultras ound. COMPAR ROSA: Compar rosa is made with prior examin ations . FINDIN GS: Mammog ely/ Tomosblu hankins s: Masses /Archi tectur al Distor tion: There is a persis tent well-c ircums cribed nodule in the retroa reolar region of the left breast . Microc alcifi ctions : No suspic ious pleomo rphic- type are seen. Skin Thicke lucho/N ipple Retrac tion: None. Limite d left breast US: Echote xture: Normal appear ance of the glandu lar tissue . Shadow ing: No suspic ious foci. Cyst: There is a 0.3 cm cyst at the 6 o'cloc k positi on of the left breast in the retroa reolar region . Solid lesion s: There is a 0.5 x 0.3 x 0.5 cm isoech oic nodule in the retroa reolar region of the left breast . This would appear to corres pond to the mammog raphic abnorm ality. This may repres ent an intrap arench ymal lymph node. Ductal dilati on: None. IMPRES MARU: 1. No eviden ce of malign anabel is noted. 2. Unless there is more urgent need, follow -up screen ing mammog ely is recomm ended, as per [place] [facility] [employer] [facility] guidel luis eduardo. 3. The findin gs were discus sed with the patien t on the date of the examin ation. BI-RAD S Catego ry 2 - Benign Findin gs Breast Densit y - Catego ry B - Scatte red areas of fibrog landul ar densit y Breast densit y Catego ry C or D implie s that the patien t has dense breast tissue . Dense breast tissue can make it harder to find cancer on a mammog carmen. Dense breast tissue is also associ ated with an increa sed risk of breast cancer . This inform ation about the result of the mammog carmen report was provid ed to the patien t to raise their awaren ess. Use this report when you speak with the patien t about their risks for breast cancer , which includ es their family histor y. At that time, you may recomm end additi onal screen ing tests (Ultra sound or MRI) as these tests may add signif icant inform ation. A negati ve radiog raphic report should not delay biopsy if a domina nt or clinic ally suspic ious mass is presen t. Up to ten percen t of cancer s are not identi fied on mammog ely. A negati ve report may reinfo rce clinic al impres maru. Adenos is and dense breast s may obscur e an underl loren neopla sm. False positi ve report s averag e 6 to 10%. Patien t will receiv e a letter notify ing them of these result s. Ordere d By: Reddy tReddy CC: ------ ------ ------ ------ ------ ------ ------ ------ ------ ------ ------ ------ - Dictat ed By: Nicholas Medrano M.D. 1455 1454 Transc ribed By: Nicholas Medrano 145 This is privil eged, confid ential inform ation intend ed only for the provid er named. Any use or distri bution by any person other than this [facility] er is strict ly prohib ited. If you receiv e this report in error, please notify us immedi cathy at and return the origin al report to us at the addres s above. Thank- you. [email or web address] [facility] [address] [place], [address] 02/02/2024 15:45:20 Result Notes None recorded. Problems Name Status Onset Date Resolution Date Notes Provider Name and Address Organization Details Recorded Time Hyperlipidemia Active 2022 PERI DELEON, PEDIATRIC CLINICAL DIETICIAN null, [facility] 3 10:52:44 Hypothyroidism Active 2022 PERI DELEON, PEDIATRIC CLINICAL DIETICIAN null, [facility] 3 10:52:49 Essential hypertension Active 2022 PERI DELEON PEDIATRIC CLINICAL DIETICIAN null, [facility] 3 10:48:19 Chronic diastolic heart failure Active 2022 PERIFrancisco DELEON, PEDIATRIC CLINICAL DIETICIAN null, [facility] 3 10:52:40 Arteriosclerot ic vascular disease Active 2022 PERI DELEON, PEDIATRIC CLINICAL DIETICIAN null, [facility] 3 10:52:30 Right flank pain Active 2022 Alicja Valdez null, [facility] 4 12:10:01 Pain in right foot Active 2022 Alicja Valdez null, [facility]. 4 12:09:49 Obesity Active 2023 Alicja Seibnavneet null, [facility] 4 12:09:38 Depressive disorder Active 2023 Alicja Seibnavneet null, [facility] 4 12:09:25 Nontraumatic rotator cuff tear Completed 202308/20/2023 EM BAUER MA null, [facility] 4 13:30:11 Nontraumatic rotator cuff tear Active 2023 EM BAUER MA null, [facility] 4 13:30:11 Polyneuropathy Active 2023 peripheral Alicja ibnavneet null, [facility] 4 12:09:51 Thoracic outlet syndrome Active 2023 Alicja ibnavneet null, [facility] 4 12:09:55 History of malignant neoplasm of skin Active 2023 Alicja Seibold [facility], [facility] 4 12:09:33 Obstructive sleep apnea syndrome Active 2023 Alicja Seibold null, [facility]. 4 12:09:41 Dyspnea Active 2023 Alicja ibnavneet [facility], [facility]. 4 12:09:30 Bilateral cramp of muscle of lower limbs Active 2023 Alicja Seibold null, [facility] 4 12:09:23 Osteoarthritis Active 2023 Alicja Seibnavneet null, [facility]. 4 12:09:43 Endometrial carcinoma Completed 202308/20/2023 EM BAUER MA null, [facility] 4 13:39:54 Diastolic heart failure Active 2023 Alicjaher Valdez null, [facility] 4 12:09:27 Basal cell carcinoma of skin Active 2023 Alicja Valdez null, [facility]. 4 12:09:20 Neoplasm of uncertain behavior of skin Active [address], [place], [address], [facility] 4 10:23:42 Fatigue Active [address], [place], [address], [facility] 4 11:38:20 Chronic cough Active [address], [place], [address], [facility] 4 11:38:20 Aortic valve disorder Active 2023 TOÑA HUBER MA null, [facility] 4 14:31:00 Subclinical hyperthyroidis m Active 2023 Deneen Fuentes RN null, [facility] 4 10:27:29 Foot pain Active [address], [place], [address], [facility] 4 13:30:03 Low back pain Active [address], [place], [address], [facility] 4 11:54:46 Ankle pain Active [address], [place], [address], [facility] 4 11:55:12 Mammography abnormal Active [address], [place], [address], [facility] [facility] 11:57:09 Problem Notes None recorded. Procedures Surgical History Date Name Laterality Status Provider Name and Address Organization Details Recorded Time 06/27/20 endoscopic calcaneoplasty for Ora deformity completed JODI CUENCA, [facility] 08/20/2023 13:51:40 12/29/19 20 mohs surgery completed JODI CUENCA, [facility] 08/20/2023 14:03:48 02/23/20 18 Coronary artery bypass/reop completed JODI CUENCA, [facility] 08/20/2023 13:52:47 10/02/19 17 cataract surgery completed JODI CUENCA, [facility] 08/20/2023 14:02:07 09/17/19 17 Cataract Surgery completed JODI CUENCA, [facility] 08/20/2023 14:02:47 11/16/19 13 total knee replacement completed JODI CUENCA, [facility] 08/20/2023 13:45:27 03/15/20 12 total knee replacement completed JODI CUENCA, [facility] 08/20/2023 13:44:56 open reduction of fracture of tibia and fibula completed JODI CUENCA, [facility] 08/20/2023 13:47:29 procedure on elbow completed JODI CUENCA, [facility] 08/20/2023 13:47:55 Appendectomy completed JODI CUENCA, [facility] 08/20/2023 13:51:52 hysterectomy completed JODI CUENCA, [facility] 08/20/2023 13:52:06 Imaging Results Imaging Date Name Status LastModified by Organiz ation Details LastModified Time 11/16/2023 XR, chest, 2 view completed [id number] [facility] [address] [place], [address] 11/17/2023 17:01:56 12/17/2023 DEXA completed [address] [place], [address] 01/22/2024 14:43:06 01/01/2024 MAMMO, screening, digital, bilateral completed [email or web address] [address] [place], [address] 01/22/2024 14:44:16 01/05/2024 MAMMO, screening, unilateral completed [address] [place], [address] 02/02/2024 15:43:58 01/05/2024 US, breast, unilateral, limited completed [address] [place], [address] 02/02/2024 15:45:20 Procedure Notes None recorded. Medical Equipment None Reported. Allergies Allergen ID Allergen Name Allergen Category Reaction Reaction Severity Criticality Documentation Date Start Date Code Code System Note Provider Name and Address Organization Details Recorded Time 24107 morphine medicatio n hallucina tions Not available Not available 08/20/2023 7052 RxNorm NATALIE BAUER MA [place], [place] - [facility] 12:21:43 Medications Name Sig Start Date Stop Date Status Note LastModified by Organization Details LastModified Time amoxicill in 500 mg capsule TAKE 2 CAPSULES BY MOUTH TWICE DAILY FOR 10 DAYS 07/10 completed Not Available Not Available Not Available potassium chloride ER 10 mEq capsule,e xtended release TAKE 1 CAPSULE BY MOUTH TWICE DAILY WITH FOOD 2023 active Not Available Not Available Not Avai lable cefpodoxi me 200 mg tablet TAKE 1 TABLET BY MOUTH TWICE DAILY FOR 5 DAYS 11/15 completed Not Available Not Available Not Available Diltiazem HCl CR 300 mg capsule,e xtended release Take 1 capsule by oral route in the evening. 07/01 completed uploaded in error - confirme d dose of 30mg Not Available Not Available Not Available lisinopri l 20 mg tablet TAKE 1 TABLET BY MOUTH EVERY DAY active Not Available Not Available No t Available sertralin e 100 mg tablet TAKE 1 TABLET BY MOUTH EVERY DAY 2023 active Not Available Not Available Not Avai lable omeprazol e 40 mg capsule,d elayed release TAKE 1 CAPSULE BY MOUTH EVERY DAY 30 MINUTES BEFORE BREAKFAS T 01/04 completed Not Available Not Available Not Available amoxicill in 500 mg tablet Take 4 tabs by mouth(a total of 2 grams) one hour before dental visit 11/15 completed Not Available Not Available Not Available levothyro xine 100 mcg tablet Take 1 tablet every day by oral route. active Not Available Not Available No t Available chloroqui ne 250 mg tablet TAKE 1 TABLET BY MOUTH DAILY FOR 2 WEEKS THEN TAKE 1 TABLET BY MOUTH 3 TIMES WEEKLY 01/04 completed Not Available Not Available Not Available benzonata te 100 mg capsule TAKE 1 CAPSULE BY MOUTH THREE TIMES DAILY FOR 7 DAYS 11/15 completed Not Available Not Available Not Available simvastat in 20 mg tablet Take 1 tablet every day by oral route. active Not Available Not Available No t Available furosemid e 20 mg tablet TAKE 1 TABLET BY MOUTH EVERY DAY FLUID active Not Available Not Available No t Available diltiazem 30 mg tablet TAKE 1 TABLET BY MOUTH EVERY DAY IN THE EVENING active Not Available Not Available No t Available fluticaso ne propionat e 50 mcg/actua tion nasal spray,stephan pension SHAKE LIQUID AND USE 1 SPRAY IN EACH NOSTRIL EVERY DAY FOR 14 DAYS active Not Available Not Available No t Available Tums 200 mg (as calcium carbonate 500 mg) chewable tablet Take 1 tablet every day by oral route. active patient reports taking Not Available Not Available Not Available neomycin 3.5 mg/g-poly myxin B 10,000 unit/g-de xameth 0.1 % eye oint APPLY THIN LAYER IN BOTH EYES TWICE DAILY 07/15 completed Not Available Not Available Not Available Adult Low Dose Aspirin 81 mg tablet,de layed release Take 1 tablet every day by oral route. active Not Available Not Available No t Available bupropion HCl XL 150 mg 24 hr tablet, extended release TAKE 1 TABLET BY MOUTH EVERY DAY IN THE MORNING FOR MOOD 07/15 completed Not Available Not Available Not Available Vitamin C daily active Not Available Not Tanvi ilable Not Available Vitamin D3 daily active Not Available Not Available Not Available Vitals Date Recorded Body height Body mass index (BMI) Body weight Body temperature Oxygen saturation Oxygen saturation in Arterial blood by Pulse oximetry Heart rate Systolic blood pressure Diastolic blood pressure Provider Name and Address Organization Details Last Updated DateTime 4 144.14 cm 34.9 kg/m2 44808.7 8 g 97.6 [degF] 98 % 98 % 77 /min 126 mm[Hg] 58 mm[Hg] NATALIE BAUER MA [facility] 4 10:47:00 Date Recorded Body height Oxygen saturation Oxygen saturation in Arterial blood by Pulse oximetry Heart rate Body temperature Body mass index (BMI) Body weight Systolic blood pressure Diastolic blood pressure Provider Name and Address Organization Details Last Updated DateTime 4 144.14 cm 98 % 98 % 64 /min 98.6 [degF] 33.6 kg/m2 44127.2 2 g 133 mm[Hg] 72 mm[Hg] [address], [place], [address], [facility] 4 10:46:55 Date Recorded Body height Body mass index (BMI) Body weight Oxygen saturation Oxygen saturation in Arterial blood by Pulse oximetry Heart rate Body temperature Systolic blood pressure Diastolic blood pressure Provider Name and Address Organization Details Last Updated DateTime 4 144.14 cm 34.1 kg/m2 33542.4 1 g 95 % 95 % 84 /min 97.7 [degF] 136 mm[Hg] 72 mm[Hg] TOÑA HUBER MA [facility] 4 09:26:01 Date Recorded Body height Oxygen saturation Oxygen saturation in Arterial blood by Pulse oximetry Heart rate Body mass index (BMI) Body weight Body temperature Systolic blood pressure Diastolic blood pressure Provider Name and Address Organization Details Last Updated DateTime 4 144.14 cm 96 % 96 % 65 /min 34.3 kg/m2 37747 g 97.3 [degF] 118 mm[Hg] 58 mm[Hg] JASON KHANNA RN [facility] 4 13:04:32 Date Recorded Body height Body mass index (BMI) Body weight Body temperature Oxygen saturation Oxygen saturation in Arterial blood by Pulse oximetry Heart rate Systolic blood pressure Diastolic blood pressure Provider Name and Address Organization Details Last Updated DateTime 4 144.14 cm 33.9 kg/m2 15789.5 4 g 97.5 [degF] 99 % 99 % 61 /min 116 mm[Hg] 62 mm[Hg] UVALDO SANDERS RN [facility] 4 11:18:53 Social History Question Answer Notes LastModified by Organizat ion Details LastModified Time Tobacco Smoking Status Former Smoker 18 when she quit smoking JODI CUENCA, [facility] 08/18/2023 10:42:09 Do You Have An Advance Directive? No Paperwork Given Information not available 12/09/2023 When Did You Quit Smoking? 16+yearssince lastcigarette [email or web address] Information not available 08/18/2023 Date Of Most Recent HSA 12/09/2023 Information not available 12/09/2023 Would You Say That, In General, Your Health Is Fair [email or web address] Information not available 08/18/2023 How Often Does Anyone, Including Family, Physically Hurt You? Never Information not available 08/18/2023 How Often Does Anyone, Including Family, Insult Or Talk Down To You? Never Information not available 08/18/2023 How Often Does Anyone, Including Family, Threaten You With Harm? Never [email or web address] Information not available 08/18/2023 How Often Does Anyone, Including Family, Scream Or Curse At You? Never [email or web address] Information not available 08/18/2023 Within The Past 12 Months, You Worried That Your Food Would Run Out Before You Got Money To Buy More. Sometimes True Information not available 12/09/2023 Within The Past 12 Months, The Food You Bought Just Didn't Last And You Didn't Have Money To Get More. Never True [email or web address] Information not available 08/18/2023 How Hard Is It For You To Pay For The Very Basics Like Food, Housing, Medical Care, And Heating? Would You Say It Is: Not Hard At All Information not available 12/09/2023 In The Past 12 Months, Has Lack Of Reliable Transportation Kept You From Medical Appointments, Meetings, Work Or From Getting Things Needed For Daily Living? No [email or web address] Information not available 08/18/2023 What Is Your Housing Situation Today? I Have Housing. [email or web address] Information not available 08/18/2023 How Often In The Past Year Have You Used Marijuana (including Smoking, Vaping, Dabbing, Or Edibles)? Never [email or web address] Information not available 08/18/2023 How Often In The Past Year Have You Used Prescription Medications That Were Not Prescribed To You? Never [email or web address] Information not available 08/18/2023 How Often In The Past Year Have You Taken Your Own Prescription Medication More Than The Way It Was Prescribed Or For Different Reasons Than Its Intended Purpose? Never [email or web address] Information not available 08/18/2023 How Often In The Past Year Have You Used Other Drugs (for Example, Heroin, Cocaine, Meth, Salvia, Inhalants)? Never [email or web address] Information not available 08/18/2023 What Matters Most To You? to Be Safe And Healthy, See And Walk Information not available 12/09/2023 During The Past Four Weeks, Was Someone Available To Help You If You Needed And Wanted Help? (For Example, If You [place] Very Nervous, Lonely, Or Blue; Got Sick And Had To Stay In Bed; Needed Someone To Talk To; Needed Help With Daily Chores; Or Needed Help Just Taking Care Of Yourself.) Yes- Some Information not available 12/09/2023 During The Past Four Weeks, What Was The Hardest Physical Activity You Could Do For At Least 2 Minutes? Very Light Information not available 12/09/2023 Can You Get To Places Out Of Walking Distance Without Help? (For Example, Can You Travel Alone On Buses Or Taxis, Or Drive Your Own Car?) Yes Information not available 12/09/2023 Can You Go Shopping For Groceries Or Clothes Without Someone? s Help? Yes Information not available 12/09/2023 Can You Prepare Your Own Meals? Yes Information not available 12/09/2023 Can You Do Your Housework Without Help? Yes Information not available 12/09/2023 Because Of Any Health Problems, Do You Need The Help Of Another Person With Your Personal Care Needs Such As Eating, Bathing, Dressing, Or Getting Around The House? No Information not available 12/09/2023 Can You Handle Your Own Money Without Help? Yes Information not available 12/09/2023 Are You Having Difficulties Driving Your Car? No Information not available 12/09/2023 Do You Always Fasten Your Seat Belt When You Are In A Car? Yes- Usually Information not available 12/09/2023 How Often During The Past Four Weeks Have You Been Bothered By Any Of The Following Problems? Falling Or Dizzy When Standing Up? Sometimes Information not available 12/09/2023 Sexual Problems? Sometimes Informat ion not available 12/09/2023 Trouble Eating Well? Never Information not available 12/09/2023 Teeth Or Denture Problems? Always Information not available 12/09/2023 Problems Using The Telephone? Never Information not available 12/09/2023 Tiredness Or Fatigue? Always Information not available 12/09/2023 Have You Had 2 Or More Falls Or Sustained An Injury With A Fall In The Last Year? Yes Information not available 12/09/2023 Do You Have Difficulty With Walking Or Balance? Yes Information not available 12/09/2023 Do You Currently Use A Hearing Device? Yes Information not available 12/09/2023 Do You Currently Have Any Trouble With Your Vision? Yes Information not available 12/09/2023 Do You Exercise For About 20 Minutes Three Or More Days A Week? Yes- Most Of The Time Information not available 12/09/2023 Are There Any Safety Concerns In Your Home (see Attached CDC Pamphlet)? No Information not available 12/09/2023 How Often Do You Have Trouble Taking Medicines The Way You Have Been Told To Take Them? I Always Take Them As Prescribed Information not available 12/09/2023 How Confident Are You That You Can Control And Manage Most Of Your Health Problems? Somewhat Confident Information not available 12/09/2023 Do You Currently Have Any Difficulty With Your Hearing? No Information not available 12/09/2023 Date Of Most Recent SBINS 12/09/2023 Information not available 12/09/2023 Do You Have A Medical Power Of Editor News? No Information not available 12/09/2023 What Was The Date Of Your Most Recent Tobacco Screening? 12/09/2023 Information not available 12/09/2023 At What Age Did You Start Smoking Tobacco? 16 [email or web address] Information not available 08/18/2023 Has Tobacco Cessation Counseling Been Provided? No Information not available 12/09/2023 Do You Or Have You Ever Used Any Other Forms Of Tobacco Or Nicotine? No Information not available 12/09/2023 Sex: Female Functional Status None recorded. Mental Status None recorded. Family History Relationship Description Onset Age of this Age Resolved Age Notes Mother Diastolic dysfunction Mother Congestive heart failure 68 Brother Myocardial infarction Medical History No medical history recorded. Gynecological HistoryNo gynecological history recorded. Obstetrics History GPAL:G 0 P 0 0 0 0 Immunizations Vaccine Type Date Status Provider Name and Address Organization Details Recorded Time Td (adult), 2 Lf tetanus toxoid, preservative free, adsorbed 08/18/2023 completed JACQUELIN QUISPE [address], [place], [address], [facility] 08/18/2023 22:14:59 SARS-COV-2 (COVID-19) vaccine, UNSPECIFIED 05/08/2023 completed JODI CUENCA, [facility] 08/20/2023 12:15:28 SARS-COV-2 (COVID-19) vaccine, UNSPECIFIED 08/15/2020 completed JODI CUENCA, [facility] 08/20/2023 12:15:34 SARS-COV-2 (COVID-19) vaccine, UNSPECIFIED 09/14/2020 completed JODI CUENCA, [facility] 08/20/2023 12:15:49 SARS-COV-2 (COVID-19) vaccine, UNSPECIFIED 05/30/2021 completed JODI CUENCA, [facility], [facility]. 08/20/2023 12:15:55 SARS-COV-2 (COVID-19) vaccine, UNSPECIFIED 05/10/2022 completed JODI CUENCA, [facility] 08/20/2023 12:16:04 Pneumococcal conjugate PCV 13 01/04/2015 completed JODI CUENCA, [facility] 08/20/2023 12:16:40 influenza, unspecified formulation 03/29/2020 completed JODI CUENCA, [facility] 08/20/2023 12:17:06 influenza, unspecified formulation 04/24/2021 completed JODI CUNECA, [facility] 08/20/2023 12:17:14 influenza, unspecified formulation 05/10/2022 completed JODI CUENCA, [facility] 08/20/2023 12:17:20 influenza, unspecified formulation 05/08/2023 completed JODI CUENCA, [facility] 08/20/2023 12:17:30 pneumococcal polysaccharide PPV23 03/02/2012 completed JODI CUENCA, [facility] 08/20/2023 12:18:00 pneumococcal polysaccharide PPV23 03/04/2019 completed JODI CUENCA, [facility]. 08/20/2023 12:18:09 Tdap 03/02/2012 completed JODI CUENCA, [facility], [facility] [facility] 08/20/2023 12:18:41 zoster, unspecified formulation 09/01/2018 completed JODI CUENCA, [facility] 08/20/2023 12:18:59 zoster, unspecified formulation 03/04/2019 completed JODI CUENCA, [facility] 08/20/2023 12:19:04 zoster, unspecified formulation 04/09/2012 completed JODI CUENCA, [facility] 08/20/2023 12:19:11 Past Encounters Encounter ID Performer Location Encounter Start Date Encounter Closed Date Diagnosis/Indication Diagnosis SNOMED-CT Code [id number] [address] [address] 07/10/2023 08:03:29 07/10/2023 09:07:38 Right flank pain [id number] Essential hypertension [id number] [address] [address] 07/15/2023 10:11:36 07/15/2023 10:53:13 Essential hypertension 73862340 Pain in right foot 84854 [id number] Right flank pain 0177345 [id number] [address] 08/18/2023 10:29:16 08/18/2023 12:16:13 Hyperlipidemia 07980795 Obesity 845568990 Essential hypertension 30696607 Screening for malignant neoplasm of colon 267343844 Active or passive immunization [id number] Fabi Marin PA-C [address] [address] 11/03/2023 10:33:42 11/03/2023 11:24:23 Upper respiratory infection 20056591 Obesity 728822237 [id number] PADMAJA RILEY [address] [address] 11/16/2023 09:16:49 11/16/2023 09:52:12 Fatigue 71040898 Chronic cough 77898506 Neoplasm o f uncertain behavior of skin 95430952 Obesity 273444359 Obstructiv e sleep apnea syndrome 08812233 [id number] [address] [address] 12/09/2023 12:38:05 12/09/2023 13:45:09 Adult health examination 573435134 Foot pain 14985804 Screening for malignant neoplasm of colon 892425578 Screening mammography 24 079971 Screening for osteoporosis 430295704 [id number] JACQUELIN QUISPE [address] [address] 01/05/2024 10:54:02 01/05/2024 11:42:50 Obesity 549832811 Essential hypertension 94439198 Low back pain 660018524 Ankle pain 390024992 Mammography abnormal 168 518400 Health Concerns Section Related Observation LastModified by Organization Detai ls LastModified Time None Recorded Concern Status LastModified by Organization Details LastModified Time None Recorded Advance Directives Directive N: paperwork given Payers Encounter Date Sequence Insurance Name Policy Number Policy Kearns Covered Member ID Kearns Member ID Guarantor Name 08/18/2023 1 [place] - [place]) [id number] Liya A Chago [id number] Liya A Chago 08/18/2023 2 [place] [place] Liya A Chago [id number] Liya A Chago 11/03/2023 1 [place]) [id number] Liya A Chago [id number] Liya A Chago 11/16/2023 1 [place]) [id number] Liya A Chago [id number] Liya A Chago 12/09/2023 1 [place]) [id number] Liya A Chago [id number] Liya A Chago 01/05/2024 1 [place]) [id number] Liya A Chago [id number] Liya A Chago Notes Date Note Type Note Provider Name and Address Organization Details Recorded Time 08/18/2023 text/html HPI Notes: 77-year-old female patient presents to clinic today to initiate primary care. She is transferring care from [facility]. She was seen here last month for an acute visit. Patient lives alone. Has recently started a relationship in the past 8 months with a male database report writer. She enjoys going out dancing with him. She is getting ready to leave for a month in [place] with her daughter. Cardiology-followed by Dr. De Dios at [facility]. History of mild to moderate aortic regurgitation with a normal EF. Chronic shortness of breath. This has been noted in medical notes for many years. Sleep apnea? has complaint of chronic fatigue. Unable to tolerate a mask for a CPAP due to history of claustrophobia. Was encourage to lose weight. If she can get down to #145, she would be a candidate for the inspira. Has a f/u with sleep clinic in December. Obesity? patient interested in medication for weight loss assistance. Fell last week when she slipped on the ice. Pain in ankle, toe,knee and shoulder on left side. Left great toe pain from before fall, at least the past 2 months. Mammo - aged out at 76. Colonoscopy -aged out. SACHIN HERNANDEZOST, DIABETOLOGIST [address], [place], [address], [facility], [facility]. 08/18/2023 22:15:01 11/03/2023 text/html HPI Notes: Pt is a 77 y/o F here for 7 days of nasal congestion, mild sinus pressure, cough, subjective chills. Pt went to urgent care 10/30/23 and was rxed cefpodoxime for 5 days for URI/possible copd exacerbation. CXR at urgent care visit was normal. Pt states her sxs are improving but still having nasal congestio and cough at night, difficulty to sleep. Has tried fluids, steam, vicks with some relief. Patient denies fever, chest pain, shortness of breath, headache, nausea, vomiting, diarrhea, dizziness, abdominal pain, leg swelling, skin rash, syncope, hemoptysis. pt has intentionally lost 6 lbs since last visit, she returned from [place] ~2-3 weeks ago, is feeling well otherwise. An A1c was to be checked to see if pt qualifies from GLP1 for weight loss. No hx of DM2 or pre-dm. Fabi Marin PA-C [address], [place], [address], [facility]. 11/03/2023 11:52:15 11/16/2023 text/html HPI Notes: The patient presents with persistent throat clearing and cough prod of purulent sputum. She reports occasional shortness of breath and chest tightness. The patient completed a 2 wk course of antibiotics (cefpodoxime) five days ago with minimal improvement in her symptoms. She denies having a fever but has been experiencing difficulty sleeping, which she suspects may be related to her congestion and coughing. The patient has a history of smoking but quit years ago and has not had recent lung issues, except for tightness during cold weather or viral infections. The patient's sinuses have improved since using a prescribed nasal corticosteroid, but she still experiences some tenderness on the right side of her face when pressing on her cheek. She denies any pain in her upper teeth or jaw. The patient has a history of BCC skin cancer and has had a couple of skin lesions removed. She has not seen a swine genetics researcher recently. The patient reports feeling cold and needing to cover up with a blanket at night. She is able to bring up sputum occasionally but sometimes experiences difficulty and a scratchy throat. The patient has a history of sleep apnea and has been unable to tolerate a CPAP mask. She has lost a significant amount of weight but still struggles with abdominal fat. MD Jak[address], [place], [address], [facility] 11/16/2023 13:43:54 12/09/2023 text/html HPI Notes: Medic are Annual Wellness Visit Reported by patient. Diet and Nutrition: discussed vitamin and supplement use; discussed portion control; discussed maintaining calcium balance; discussed diet improvement Fracture Risk: no history of fractures; no recent explained fracture; no sudden unexplained fractures; no previous musculoskeletal injuries Physical Activity: discussed weightbearing activities; discussed exercise habits 78 yo female presents today for annual Medicare Wellness exam [address], [place], [address], [facility] 12/09/2023 15:21:44 01/05/2024 text/html HPI Notes: The patient presents today for a referral to physical therapy for right lower back pain, right leg pain, and left ankle weakness, as well as discussing recent mammogram findings and medication management. The patient is a 78-year-old female who recently had her hearing aids adjusted and reports improvement in her hearing. She wears her hearing aids every day. The patient has been experiencing right lower back pain radiating into her right leg for about two weeks. The pain started after helping her daughter with yard sale, and she believes she may have strained her back while lifting something. She has not noticed any issues with urination or bowel movements, has limited walking ability, and uses a walker for long walks. She has been doing bicycle exercises for stretching but experiences some pain after. The patient reports left ankle weakness, which she believes has been ongoing for some time. She has not noticed significant swelling or bruising. The patient has a recent mammogram finding of an area of concern, possibly dense tissue, and is scheduled for an ultrasound today. SACHIN HERNANDEZOST, DIABETOLOGIST [address], [place], [address], [facility]. 01/05/2024 11:57:49 OBGyn Episode No OBEpisode recorded.
--- OUTSIDE RECORDS SUMMARY | 2024-03-03 01:18 | XMS_ITS ---
Author Organization Unknown Address [address] [address] [phone] Phone Care Team Providers Care Machine Joint Cutter Name Role Phone YULISA CALDWELLABI Witt Attending Unavailable CHIDI EL Vicki Primary Unavailable Social History Type Status Start Date End Date Code Code Syst em Smoking History Never smoker (Never Smoked) 474165652 SNOMED CT Sex Female Assessment You had [...] NOS L LEG active SNOMED-CT GERD active 059148127 SNOMED-CT HYPOTHYROIDISM active 24958636 SNOME D-CT CHF active 75900340 SNOMED-CT Allergies and Adverse Reactions Allergy Substance Reaction Severity Start Date Concern Status Co de Code System MORPHINE Moderate Active 7052 RxNorm Plan of Treatment No Data Found Encounters Encounter Diagnosis Start Date Code Code Sys tem Obstructive sleep apnea syndrome 01/07/2023 99891547 SNOMED-CT Personal Care Team Section Performer Name Performer Role Active Date Inactive Da te
--- OUTSIDE RECORDS SUMMARY | 2024-03-03 01:18 | XMS_ITS | Continuity of Care Document ---
Author Organization [place] - [facility], [facility] Address [address] [place] [address] Care Team Providers Care Printing And Stamping Supervisor Name Role Phone JACQUELINE ROCKWELL Tow Driver [facility]astro[facility]olog[facility] KELLY STEVENSON Peoplesoft Consultant [facility] Orthopedist [facility] dicchanning ROSETTE PALOMINO Physical Therapist ALYSSA MONTEZ Sleep Medicine VIJI STEWART Tow Driver Assessment Encounter Date Assessment Date Assessment LastModified by Organization Details LastModified Time 01/05/2024 01/05/2024 The patient is a 78-year-old [...] patient is scheduled for an ultrasound today. Not available 01/05/2024 11:57:45 Plan of Treatment Reminders Order Date Submit Date Provider Last Modified By Organization Details Last Modified Time Details Appointments Follow Up 30 2023 10:20A M SACHIN JAMES Not available Not available Not available Lab None recorded. Referral physical therapist referral - lower right back pain x 2-3 weeks, recommend stretchin g regimen. Also, c/o chronic left ankle weakness. Please assess both concerns 2023 024 MACIEL Rosen Tomas PT, [address] [place], [address], 01/24/2024 16:28:42 Procedures None recorded. Surgeries None recorded. Imaging None recorded. Medication Orders None recorded. Patient TargetsNo targets recorded. Patient Instructions Encounter Date Encounter Id Patient Instructions Last Modified By Organization Details Last Modified Time 01/05/2024 [id number] - Attend scheduled ultrasound appointment for the [...] Not available 01/05/2024 11:52:15 Reason for Referral Peoplesoft Consultant Referral for N eoplasm of uncertain behavior of skin hx BCC nose, eval new telangiectasias on nose, + full skin exam pls Referring Physician: [facility], Encounter Date: 11/16/2023 Biomedical Photographer Referral for Foot pain Referring Physician: Sachin Ramirez [facility], Encounter Date: 12/09/2023 Physical Therapist Referral for Low back pain lower right back pain x 2-3 weeks, recommend stretching regimen. Also, c/o chronic left ankle weakness. Please assess both concerns Referring Physician: Sachin Ramirez [facility], Encounter Date: 01/05/2024 Results Created Date Observation Date Name Description Value Unit Range Abnormal Flag LastModifiedBy Organization Detail LastModifiedTime 12/17/19 24 12/17/2023 DEXA Patien t Name: Liya Anders Unit #: [id number] Loc: DI Orderi ng Provid er: Provos t,Abig ail Accoun t #: [id number] Status : REG CLI Primar y Care Provid er: Provos t,Abig ail Date of Exam: Sex: F Admiss ion Date: : 1945 Age: 78 Exam(s ) XR DEXA BONE DENSIT Y W/WO DAVID EXAM: XR DEXA BONE DENSIT Y W/WO DAVID CLINIC AL HISTOR Y: Z78.0 Asympt omoati c meonpa usal state TECHNI QUE: Hologi c Horizo n C densit ometer analys is of left hip and lumbar spine . Latera l survey image of the thorac ic and lumbar spine. COMPAR AJIT: No exams were availa ble for compar ajit FINDIN GS: Latera l view of the [...] to histor y of fractu re. IMPRES NICOLA: Normal bone minera l densit y of [...] at the addres s above. Thank- you. [email or web address] [facility] [address] [place], [address] 01/22/2024 14:43:06 01/01/20 24 01/01/2024 MAMMO , scree lucho, digit al, bilat eral Patien t Name: Liya Anders Unit #: [id number] Loc: DI Orderi ng Provid er: Provos t,Abig ail Accoun t #: [id number] Status : REG CLI Primar y Care Provid er: Provos t,Abig ail Date of Exam: 02/16 Sex: F [...] comput er aided detect ion (CAD). COMPAR AJIT: Availa ble for compar ajit. FINDIN GS: Masses /Archi tectur al Distor tion: There is a new 6 mm nodule in the retroa reolar region of the left breast . No areas of dana ectura l distor tion are presen t. Microc alcifi cation s: No suspic ious pleomo rphic- type are seen. Skin Thicke lucho/N ipple Retrac tion: None. IMPRES NICOLA: 1. New 6 mm nodule in the [...] report may reinfo rce clinic al impres nicola. Adenos is and dense breast s may obscur e an underl loren neopla sm. False positi ve report s averag e 6 to 10%. Patien t will receiv e a letter notify ing them of these result s. Ordere d By: Reddy Lee CC: ------ ------ ------ ------ ------ ------ ------ ------ ------ ------ ------ ------ - Dictat ed By: Nicholas Medrano M.D. 151 151 Transc ribed By: Nicholas Medrano 151 This is privil eged, confid ential inform ation intend ed only for the provid er named. Any use or distri bution by any person other than this provid er is strict ly prohib ited. If you receiv e this report in error, please notify us immedi ately at and return the origin al report to us at the addres s above. Thank- you. [address] [place], [address] 01/22/2024 14:44:16 01/05/20 24 01/05/2024 MAMMO , scree lucho, unila teral Patien t Name: Liya Anders Unit #: [id number] Loc: DI Orderi ng Provid er: Reddy Lee Accoun t #: [id number] Status : REG CLI Primar [...] er Aided Diagno sis follow ed by Tomosy nthesi s and left breast ultras ound. COMPAR AJIT: Compar ajit is made with prior examin ations . FINDIN GS: Mammog ely/ Tomosy nthesi s: Masses /Archi tectur al Distor tion: [...] lymph node. Ductal dilati on: None. IMPRES NICOLA: 1. No eviden ce of malign anabel [...] report may reinfo rce clinic al impres nicola. Adenos is and dense breast s may obscur e an underl loren neopla sm. False positi ve report s averag e 6 to 10%. Patien t will receiv e a letter notify ing them of these result s. Ordere d By: Reddy Lee CC: ------ ------ ------ ------ ------ ------ ------ ------ ------ ------ ------ ------ - Dictat ed By: Nicholas Medrano M.D. 1454 Transc ribed By: Nicholas Medrano 145 [...] the addres s above. Thank- you. [email or web address] [facility] [address] [place], [address] 02/02/2024 15:43:58 01/05/20 24 01/05/2024 US, morales french , limit ed Patien t Name: Liya Anders Unit #: [id number] Loc: DI Orderi ng Provid er: Reddy Lee Accoun t #: [id number] Status : REG CLI Primar y Care Provid er: Zinapelon caroNatalyjesika muniz Date of Exam: 06/19 Sex: F Admiss [...] er Aided Diagno sis follow ed by Brock hankins s and left breast ultras ound. COMPAR AJIT: Compar ajit is made with prior examin ations . [...] lymph node. Ductal dilati on: None. IMPRES NICOLA: 1. No eviden ce of malign anabel [...] report may reinfo rce clinic al impres nicola. Adenos is and dense breast s may [...] 1455 1455 Transc ribed By: Nicholas Medrano 1455 This is privil eged, confid ential inform ation intend ed only for the provid er named. Any use or distri bution by any person other than this [facility] is strict ly prohib ited. If you receiv e this report in error, please notify us immedi cathy at and return the origin al report to us at the addres s above. Thank- you. [email or web address] [facility] [address] [place], [address] 02/02/2024 15:45:20 Result Notes None recorded. Problems Name Status Onset Date Resolution Date Notes Provider Name and Address Organization Details Recorded Time Hyperlipidemia Active 2022 PERI DELEON LPN null, [facility] 3 10:52:44 Hypothyroidism Active 2022 PERI DELEON EMAIL DEVELOPER null, [facility]. 3 10:52:49 Essential hypertension Active 2022 PERI DELEON EMAIL DEVELOPER null, [facility] 3 10:48:19 Chronic diastolic heart failure Active 2022 PERI DELEON LPN null, [facility] 3 10:52:40 Arteriosclerot ic vascular disease Active 2022 PERI DELEON EMAIL DEVELOPER null, [facility] 3 10:52:30 Right flank pain Active 2022 Alicjaher Valdez null, [facility] 4 12:10:01 Pain in right foot Active 2022 Alicjaher Valdez null, [facility] 4 12:09:49 Obesity Active 2023 Alicja Seibold null, [facility]. 4 12:09:38 Depressive disorder Active 2023 Alicja José Miguel [facility], [facility]. 4 12:09:25 Nontraumatic rotator cuff tear Completed 202308/20/2023 EM BAUER MA null, [facility] 4 13:30:11 Nontraumatic rotator cuff tear Active 2023 EM BAUER MA null, [facility] 4 13:30:11 Polyneuropathy Active 2023 peripheral Alicjaher Valdez [facility], [facility] 4 12:09:51 Thoracic outlet syndrome Active 2023 Alicja José Miguel [facility], [facility] 4 12:09:55 History of malignant neoplasm of skin Active 2023 Alicja José Miguel [facility], [facility]. 4 12:09:33 Obstructive sleep apnea syndrome Active 2023 Alicja José Miguel [facility], [facility] 4 12:09:41 Dyspnea Active 2023 Alicja José Miguel [facility]. 4 12:09:30 Bilateral cramp of muscle of lower limbs Active 2023 Alicja José Miguel [facility], [facility]. 4 12:09:23 Osteoarthritis Active 2023 Alicja Seibnavneet null, [facility]. 4 12:09:43 Endometrial carcinoma Completed 202308/20/2023 EM BAUER MA null, [facility] 4 13:39:54 Diastolic heart failure Active 2023 Alicja Sekenishanavneet [facility], [facility] 4 12:09:27 Basal cell carcinoma of skin Active 2023 Alicja Valdez null, [facility] 4 12:09:20 Neoplasm of uncertain behavior of skin Active [address], [facility] [address], [facility] 4 10:23:42 Fatigue Active [address], [facility] [address], [facility] 4 11:38:20 Chronic cough Active [address], [facility] [address], [facility] 4 11:38:20 Aortic valve disorder Active 2023 TOÑA HUBER MA null, [facility] 4 14:31:00 Subclinical hyperthyroidis m Active 2023 eDneen Fuentes RN null, [facility] 4 10:27:29 Foot pain Active [address], [facility] [address], [facility] 4 13:30:03 Low back pain Active [address], [facility] [address], [facility] 4 11:54:46 Ankle pain Active [address], [facility] [address], [facility] 4 11:55:12 Mammography abnormal Active [address], [facility] [address], [facility] 4 11:57:09 Problem Notes None recorded. Procedures Surgical History Date Name Laterality Status Provider Name and Address Organization Details Recorded Time 06/27/20 22 endoscopic calcane[facility] deformity [facility] 13:51:40 12/29/19 20 mohs surgery completed JODI CUENCA, [facility] 08/20/2023 14:03:48 02/23/20 18 Coronary artery bypass/reop completed JODI CUENCA, [facility] 08/20/2023 13:52:47 10/02/19 17 [facility] 14:02:07 09/17/19 17 Cataract Surgery [facility]23 14:02:47 11/16/19 13 total knee replacement completed JODI CUENCA, [facility] 08/20/2023 13:45:27 03/15/20 12 total knee replacement [facility]23 13:44:56 open reduction of fracture of tibia and fibula completed JODI CUENCA, [facility] 08/20/2023 13:47:29 procedure on elbow completed JODI CUENCA, [facility] 08/20/2023 13:47:55 Appendectomy completed JODI CUENCA, [facility] 08/20/2023 13:51:52 [facility]23 13:52:06 Imaging Results None recorded. Procedure Notes None recorded. Medical Equipment None Reported. Allergies Allergen ID Allergen Name Allergen Category Reaction Reaction Severity Criticality Documentation Date Start Date Code Code System Note Provider Name and Address Organization Details Recorded Time 14668 morphine medicatio n hallucina tions Not available Not available 08/20/2023 7052 RxNorm JODI VIRGEN, [place] - [facility]. 4 12:21:43 Medications Name Sig Start Date Stop [...] Updated DateTime 4 144.14 cm 33.9 kg/m2 61214.5 4 g 97.5 [degF] 99 % 99 % 61 /min 116 mm[Hg] 62 mm[Hg] UVALDO SANDERS RN [facility] 4 11:18:53 Social History Question Answer Notes LastModified by Organizat ion Details LastModified Time Tobacco Smoking Status Former Smoker 18 when she quit smoking JODI CUENCA, [facility] 08/18/2023 10:42:09 Do You Have An Advance Directive? No Paperwork Given Information not available 12/09/2023 When Did You Quit Smoking? 16+yearssince lastcigarnaomy [email or web address] Information not available 08/18/2023 Date Of Most Recent HSA 12/09/2023 Information not available 12/09/2023 Would You Say That, In General, Your Health Is Fair [email or web address] Information not available 08/18/2023 How Often Does Anyone, Including Family, Physically Hurt You? Never [email or web address] Information not available 08/18/2023 How Often Does Anyone, Including Family, Insult Or Talk Down To You? Never [email or web address] Information not available 08/18/2023 How Often Does Anyone, Including Family, Threaten You With Harm? Never [email or web address] Information not available 08/18/2023 How Often Does Anyone, Including Family, Scream Or Curse At You? Never Information not available 08/18/2023 Within The Past 12 Months, You Worried That Your Food Would Run Out Before You Got Money To Buy More. Sometimes True Information not available 12/09/2023 Within The Past 12 Months, The Food You Bought Just Didn't Last And You Didn't Have Money To Get More. Never True [email or web address] Information not available 08/18/2023 How Hard Is It For You To Pay For The Very Basics Like Food, Housing, Medical Care, And Heating? Would You Say It Is: Not Hard At All Information not available 12/09/2023 In The Past 12 Months, Has Lack Of Reliable Transportation Kept You From Medical Appointments, Meetings, Work Or From Getting Things Needed For Daily Living? No [email or web address] Information not available 08/18/2023 What Is Your Housing Situation Today? I Have Housing. [email or web address] Information not available 08/18/2023 How Often In The Past Year Have You Used Marijuana (including Smoking, Vaping, Dabbing, Or Edibles)? Never [email or web address] Information not available 08/18/2023 How Often In The Past Year Have You Used Prescription Medications That Were Not Prescribed To You? Never [email or web address] Information not available 08/18/2023 How Often In The Past Year Have You Taken Your Own Prescription Medication More Than The Way It Was Prescribed Or For Different Reasons Than Its Intended Purpose? Never [email or web address] Information not available 08/18/2023 How Often In The Past Year Have You Used Other Drugs (for Example, Heroin, Cocaine, Meth, Salvia, Inhalants)? Never [email or web address] Information not available 08/18/2023 What Matters Most To You? to Be Safe And Healthy, See And Walk [email or web address] Information not available 12/09/2023 During The Past Four Weeks, Was Someone Available To Help You If You Needed And Wanted Help? (For Example, If You Leland Very Nervous, Lonely, Or Blue; Got Sick [...] Safety Concerns In Your Home (see Attached [facility] Pamphlet)? No Information not available 12/09/2023 How [...] Do You Have A Medical Power Of Almond Paste Molder? No Information not available 12/09/2023 What Was The Date Of Your Most Recent Tobacco Screening? 12/09/2023 Information not available 12/09/2023 At What Age Did You Start Smoking Tobacco? 16 [email or web address] Information not available 08/18/2023 Has Tobacco Cessation [...] tetanus toxoid, preservative free, adsorbed 08/18/2023 completed SACHIN RAMIREZ, [employer] [address], [place], [address], [facility] 08/18/2023 22:14:59 SARS-COV-2 (COVID-19) vaccine, UNSPECIFIED 05/08/2023 completed JODI CUENCA, [facility] 08/20/2023 12:15:28 SARS-COV-2 (COVID-19) vaccine, UNSPECIFIED 08/15/2020 completed JODI CUENCA, [facility] 08/20/2023 12:15:34 SARS-COV-2 (COVID-19) vaccine, UNSPECIFIED 09/14/2020 completed JODI CUENCA, [facility] 08/20/2023 12:15:49 SARS-COV-2 (COVID-19) vaccine, UNSPECIFIED 05/30/2021 completed JODI CUENCA, [facility] 08/20/2023 12:15:55 SARS-COV-2 (COVID-19) vaccine, UNSPECIFIED 05/10/2022 completed JODI CUENCA, [facility] 08/20/2023 12:16:04 Pneumococcal conjugate PCV 13 01/04/2015 completed JODI CUENCA, [facility] 08/20/2023 12:16:40 influenza, unspecified formulation 03/29/2020 completed JODI CUENCA, [facility] 08/20/2023 12:17:06 influenza, unspecified formulation 04/24/2021 completed JODI CUENCA, [facility] 08/20/2023 12:17:14 influenza, unspecified formulation 05/10/2022 completed JODI CUENCA, [facility] 08/20/2023 12:17:20 influenza, unspecified formulation 05/08/2023 completed JODI CUENCA, [facility] 08/20/2023 12:17:30 pneumococcal polysaccharide PPV23 03/02/2012 completed JODI CUENCA, [facility] 08/20/2023 12:18:00 pneumococcal polysaccharide PPV23 03/04/2019 completed JODI CUENCA, [facility] 08/20/2023 12:18:09 Tdap 03/02/2012 completed JODI CUENCA, [facility] 08/20/2023 12:18:41 zoster, unspecified formulation 09/01/2018 completed JODI CUENCA, [facility] 08/20/2023 12:18:59 zoster, unspecified formulation 03/04/2019 completed JODI CUENCA, [facility] 08/20/2023 12:19:04 zoster, unspecified formulation 04/09/2012 [facility] 12:19:11 Past Encounters Encounter ID Performer Location Encounter Start Date Encounter Closed Date Diagnosis/Indication Diagnosis SNOMED-CT Code [id number] [address] [address] 12/09/2023 12:38:05 12/09/2023 13:45:09 Adult health examination 105828093 Foot pain 50493461 Screening for malignant neoplasm of colon 902334665 Screening mammography 24 525132 Screening for osteoporosis 838084495 [id number] [address] [address] 01/05/2024 10:54:02 01/05/2024 11:42:50 Obesity 688930738 Essential hypertension 21498397 Low back pain 366971510 Ankle pain 265620835 Mammography abnormal 168 377091 Health Concerns Section Related Observation LastModified by Organization Detai ls LastModified Time None Recorded Concern Status LastModified by Organization Details LastModified Time None Recorded Payers Encounter Date Sequence Insurance Name Policy Number Policy Kearns Covered Member ID Kearns Member ID Guarantor Name 01/05/2024 1 [id number]IC[place]/A DVANTAGE - PPO) [id number] Liya Anders [id number] Liya Anders Notes Date Note Type Note Provider Name and Address Organization Details Recorded Time 01/05/2024 text/html HPI Notes: The patient presents [...] is scheduled for an ultrasound today. SACHIN RAMIREZ, JACQUELIN [address], [place], [address], [facility]. 01/05/2024 11:57:49 OBGyn Episode No OBEpisode recorded.
--- OUTSIDE RECORDS SUMMARY | 2024-03-03 01:18 | XMS_ITS ---
Author Organization Unknown Address [address] [place] [phone] Phone Care Team Providers Care Pourer Name Role Phone FRANCIS BOSS Registered Nurse Unavaildavid e ESTEFANY Cohen Attending Unavailable CHIDI Cohen Primary Unavailable UNLISTED PROVIDER - REQUESTED Xhandoff Un available Results TROPONIN HIGH SENSITIVITY* - Collect Date/Time: 01/19/2023 15:50 [facility] ID: [id number] [address] [place] [address], [address] LOINC: 89543-2 Test Value Unit Reference Range Code Code System Flag TROPONIN HS 13.2 pg/mL L=0.0 H=60.4 Specimen seq. RANDOM LIPASE* NEW - Collect Date/T luke: 01/19/2023 15:50 [facility] ID: [id number] [address] [place] [address], [id number] LOINC: 3040-3 Test Value Unit Reference Range Code Code System Flag LIPASE. 54 U/L L=16 H=77 COMPREHENSIVE METABOLIC PANE L (CMP) - Collect Date/Time: 01/19/2023 15:50 [facility] ID: [id number] [address] [place] [address], [address] LOINC: 57373-4 Test Value Unit Reference Range Code Code System Flag GLUCOSE 105 mg/dL L=70 H=116 2345-7 LOINC BUN 14 mg/dL L=6 H=25 3094-0 LOINC CREATININE 0.93 mg/dL L=0.51 H=0.95 2160-0 LOINC SODIUM SERUM 134 mmol/L L=136 H=145 2951-2 LOINC L POTASSIUM SERUM 3.7 mmol/L L=3.4 H=5.2 2823-3 LOINC CHLORIDE SERUM 98 mmol/L L=96 H=110 2075-0 LOINC CARBON DIOXIDE (CO2) 30 mmol/L L=22 H=34 2028-9 LOINC ANION GAP 5.6 mmol/L 90642-1 LOINC CALCIUM SERUM 9.6 mg/dL L=8.2 H=10.2 11948-4 LOINC BILIRUBIN TOTAL 0.4 mg/dL L=0.0 H=1.3 1975-2 LOINC ALK. PHOS. 118 U/L L=46 H=116 6768-6 LOINC H SGOT (AST) 38 U/L L=15 H=37 1920-8 LOINC H SGPT (ALT) 34 U/L L=12 H=78 1742-6 LOINC TOTAL PROTEIN 7.2 gm/dL L=6.0 H=8.0 2885-2 LOINC ALBUMIN 3.5 gm/dL L=3.4 H=5.0 1751-7 LOINC AGE 77 years eGFR (non-Afr.Amer.) 59 mL/min 83727-1 LOINC eGFR (Afr-Romanian) 71 mL/min 33772-6 LOINC CBC W/ DIFFERENTIAL* - Colle ct Date/Time: 01/19/2023 15:50 [facility] ID: [id number] [address] [place], [place], [address] LOINC: 23062-9 Test Value Unit Reference Range Code Code System Flag WBC 9.97 th/cmm L=5.00 H=10.00 6690-2 LOINC NEUT % 59.2 % L=40.0 H=80.0 LYMPH % 29.4 % L=10.0 H=50.0 MONO % 9.3 % L=2.0 H=12.0 96345-9 LOINC EOS % 1.1 % L=0.0 H=8.0 BASO % 0.6 % L=0.0 H=3.0 IG % 0.4 % L=0.0 H=1.1 2514-8 LOINC NRBC % 0.0 % L=0.0 H=0.0 69889-0 LOINC NEUT abs count 5.9 th/cmm L=1.6 H=8.4 751-8 LOINC LYMPH abs count 2.9 th/cmm L=1.5 H=4.0 731-0 LOINC MONO abs count 0.9 th/cmm L=0.2 H=1.0 742-7 LOINC EOS abs count 0.1 th/cmm L=0.0 H=0.5 711-2 LOINC BASO abs count 0.1 th/cmm L=0.0 H=0.2 704-7 LOINC IG abs count 0.0 th/cmm L=0.0 H=0.1 13749-2 LOINC NRBC abs count 0.0 mil/cmm L=0.0 H=0.0 14131-9 LOINC RBC 3.69 mil/cmm L=3.90 H=5.40 789-8 LOINC L HEMOGLOBIN 12.7 gm/dL L=12.0 H=16.0 718-7 LOINC HEMATOCRIT 38 % L=37 H=47 4544-3 LOINC MCV 102 fL L=82 H=92 787-2 LOINC H MCH 34.4 pg L=27.0 H=31.0 785-6 LOINC H MCHC 33.7 % L=32.0 H=36.0 786-4 LOINC RDW-SD 46.4 fL L=39.0 H=49.0 788-0 LOINC PLATELET COUNT 210 th/cmm L=150 H=450 777-[address] [facility] - Collect Date/Time: 01/19/2023 15:50 [facility] ID: [id number] [address] [place], [place], [id number] LOINC: 63574-7 Test Value Unit Reference Range Code Code System Flag COVID NEGATIVE Normal: Negative 44667-0 LOINC INFLUENZA A DNA NEGATIVE Normal: Negative 35534-5 LOINC INFLUENZA B DNA NEGATIVE Normal: Negative 21957-3 LOINC RSV DNA NEGATIVE Normal: Negative 34816-1 LOINC URINALYSIS WITH REFLEX CULT IF POSITIVE* - Collect Date/Time: 01/19/2023 15:35 [facility] ID: [id number] [address] [place], [place], [address] LOINC: 76873-0 Test Value Unit Reference Range Code Code System Flag COLLECTION MODE: VOID 29112-2 LOINC Color STRAW yellow 5778-6 LOINC Appearance CLEAR clear 5767-9 LOINC Glucose urine NEGATIVE negative mg/dl 54927-2 LOINC Bilirubin NEGATIVE negative 5770-3 LOINC Ketones NEGATIVE negative mg/dl 2514-8 LOINC Spec gravity <=1.005 1.003 - 1.030 5811-5 LOINC pH urine 7.0 5.0 - 7.0 2756-5 LOINC Protein NEGATIVE negative mg/dl 89452-1 LOINC Urobilinogen 0.2 <or= 1 EU/dl 13839-9 LOINC Nitrite. NEGATIVE negative 5802-4 LOINC Blood NEGATIVE negative 5794-3 LOINC Leukocytes. NEGATIVE negative MICROSCOPIC NOT INDICAT CT ABD PELVIS W IV CONTRAST ONLY - Completed: 01/19/2023 16:47 LOINC: [facility] RADIOLOGY [place], [place] [address] PACS SKILL TRAINING PROGRAM COORDINATOR REPORT Patient Name: TROY SILVA MRN: Sex: : Age: [id number] F 1945 77 Account: Accession: Admit: StayType: [id number] 01/19/2023 E/R Ordered: Order ID: Submitted: Ordering Provider: 01/19/2023 15:30 [id number] PATRICK FARRAR Completed: Technologist: Resulted: 01/19/2023 16:47 TXC 01/20/2023 07:25 Study Description: CT ABD PELVIS W IV CONTRAST ONLY Reason for Study: Abdominal Pain Technique: Imaging Protocol: Axial computed tomography images with coronal and sagittal reformatted images were created and reviewed. Contrast Material: Intravenous: Omnipaque. Contrast volume:100 mL Comparison: Comparison is made with prior examinations. FINDINGS: ABDOMEN: Lung Bases: Chronic fibrotic changes are seen in the lung bases. No acute pulmonary process. Aortic valve repair. Liver: Normal density. No measurable mass. Portal, Superior Mesenteric, and Splenic Veins: Unremarkable. Gallbladder and Biliary Tract: Cholelithiasis. No biliary ductal dilatation. Pancreas: Normal density, no abnormal calcifications or inflammatory process. Spleen: Calcified granuloma are seen in the spleen. Adrenals: No masses seen. Kidneys: Normal size, contour and axis. No radiodense stones or obstructive uropathy. Stable right renal cyst. No follow-up is recommended. Abdominal Aorta: Abdominal portion non-dilated. Atherosclerosis. Bowel: No obstruction or bowel wall thickening. No evidence of appendicitis. Peritoneal Cavity: No ascites, collection or mesenteric inflammatory response. No free air. Lymph Nodes: Within normal limits. Bones: Within normal limits for the patient's age. Soft Tissues: Unremarkable. Midline anterior abdominal wall hernia containing unremarkable small bowel. PELVIS: Bladder: Symmetric distention, no gross wall thickening. Reproductive Organs: Status post hysterectomy. Lymph Nodes: Within normal limits. Bones: Within normal limits for the patient's age. IMPRESSION: No acute abdominal pelvic process. Radiation Optimization: All CT scans at this facility use at least one of these dose optimization techniques: automated exposure control; mA and/or kV adjustment per patient size (includes targeted exams where dose is matched to clinical indication); or iterative reconstruction. Report Digitally Signed by Nicholas Medrano on 01/20/2023 07:25 AM EDT XR CHEST PORTABLE OR 1V - Co mpleted: 01/19/2023 15:28 LOINC: [facility] RADI[facility] [place], [place] [address] PACS SKILL TRAINING PROGRAM COORDINATOR REPORT Patient Name: TROY SILVA MRN: Sex: : Age: [id number] F 1945 77 Account: Accession: Admit: StayType: [id number] 01/19/2023 E/R Ordered: Order ID: Submitted: Ordering Provider: 01/19/2023 15:21 [id number] PATRICK FARRAR Completed: Technologist: Resulted: 01/19/2023 15:28 JMiryam 01/19/2023 16:02 Study Description: XR CHEST PORTABLE OR 1V Study Reason: SOB TECHNIQUE: 2D Digital imaging Number of views: 1 Views COMPARISON: 06 November 2022 FINDINGS: Exam extremely limited by underpenetration. Monitoring device overlies heart. LUNGS: Grossly clear. PLEURA: No pleural abnormality seen. HEART: Enlarged. AORTA: Normal diameter. BONES: Sternal wires. Old right proximal humeral fracture. Degenerative changes. SOFT TISSUES: Unremarkable. IMPRESSION: Limited exam. No acute abnormality identified. Report Digitally Signed by Natalia Galvin on 01/19/2023 04:02 PM EDT Social History Type Status Start Date End Date Code Code Syst em Smoking History Never smoker (Never Smoked) 989749732 SNOMED CT Sex Female Vital Signs Vital Sign Value Unit Lanier Value Lanier Unit Date/Time Recent/Initial? Code Code System Body Mass Index 39.38 kg/m2 01/19/2023 15:08 Initial 86323 -5 LOINC Systolic Blood Pressure 176 mm[Hg] 01/19/2023 17:48 Most Recent 8480- 6 LOINC Diastolic Blood Pressure 73 mm[Hg] 01/19/2023 17:48 Most Recent 8462- 4 LOINC Systolic Blood Pressure 167 mm[Hg] 01/19/2023 15:08 Initial 8480- 6 LOINC Diastolic Blood Pressure 51 mm[Hg] 01/19/2023 15:08 Initial 8462- 4 LOINC Body Surface Area 1.82 m2 01/19/2023 15:08 Initial 3140- 1 LOINC Height 144.780 0 cm 57.00 in 01/19/2023 15:08 Initial 8302- 2 LOINC O2 Saturation 96 % 2022 17:48 Most Recent 93328 -5 LOINC O2 Saturation 97 % 2022 15:08 Initial 40385 -5 LOINC Pulse 84.0 /min 01/19/2023 17:48 Most Recent 8867- 4 LOINC Pulse 88.0 /min 01/19/2023 15:08 Initial 8867- 4 LOINC Respiration 16 /min 01/20/20 17:48 Most Recent 9279- 1 LOINC Respiration 20 /min 01/20/20 15:08 Initial 9279- 1 LOINC Temperature 36.7 Babs 98.1 F 01/20/20 15:08 Initial 8310- 5 LOINC Weight 82.55 kg 182.00 lbs 01/19/2023 15:08 Initial 22953 -7 LOINC Assessment You had the following problems:LOC OSTEOARTH [...] NOS L LEG active SNOMED-CT GERD active 696858234 SNOMED-CT HYPOTHYROIDISM active 52874737 SNOME D-CT CHF active 69488296 SNOMED-CT Allergies and Adverse Reactions Allergy Substance Reaction Severity Start Date Concern Status Co de Code System MORPHINE Moderate Active 7052 RxNorm Plan of Treatment No Data Found Encounters Encounter Diagnosis Start Date Code Code Sys tem Noninfectious gastroenteritis 01/19/2023 16713110 SNOMED-CT Personal Care Team Section Performer Name Performer Role Active Date Inactive Da te
--- OUTSIDE RECORDS SUMMARY | 2024-03-03 01:19 | XMS_ITS | Encounter Summary ---
Author Organization [facility] Address [address] [place] [address] Care Team Providers Care Companion Caregiver Name Role Phone Kit Burch MD Primary Care Provider [phone] Reason for Referral * Radiology Services (Routine) - New Request Specialty Diagnoses / Procedures Referred By Contac t Referred To Contact Diagnoses S/P CABG (coronary artery bypass graft) Procedures CHEST PA AND LATERAL Wm Magana PA-C [address] [place] [phone] Referral ID Status Reason Start Date Expiration Date V isits Requested Visits Authorized [id number] New Request 04/07/2018 1 1 Encounter Details Date Type Department Care Team (Late st Contact Info) Description 04/07/2018 Orders Only [facility] Cardiothoracic Surgery - [address] [id number] Wm Magana PARaynaC [address] [place] [phone] S/P CABG (coronary artery bypass graft) (Primary Dx) Social History Tobacco Use Types Packs/Day Years Used Date Smoking Tobacco: Former Cigarettes 0 07/27/1961 - 07/27/1962 Smokeless Tobacco: Never Sex and Gender Information Value Date Recorded Sex Assigned at Not on file Gender Identity Female 11/09/2019 12:42 EDT Sexual Orientation Not on file documented as of this encounter Functional Status Functional Status Response Date of Assess ment Are you deaf or do you have serious difficulty h earing? No 02/25/2018 Are you blind or do you have serious difficulty seeing, even when wearing glasses? No 02/25/2018 Do you have serious difficul ty walking or climbing stairs? (5 years old or older) No 02/25/2018 Do you have difficulty dress ing or bathing? (5 years old or older) No 02/25/2018 Because of a physical, menta l, or emotional condition, do you have difficulty doing errands alone such as visiting a doctor's office or shopping? (15 years old or older) No 02/25/2018 Cognitive Status Response Date of Assessm ent Because of a physical, menta l, or emotional condition, do you have serious difficulty concentrating, remembering, or making decisions? (5 years old or older) No 02/25/2018 documented as of this encounter Plan of Treatment Upcoming Encounters Date Type Department Care Team (Late st Contact Info) Description 03/08/2025 11:00 EDT Office Visit [facility] Dermatology [address] [place] [id number] Cynthia Salinas MD [address] [place] [address], [facility] [address] [place] [address] documented as of this encounter Procedures Procedure Name Priority Date/Time Associated Diagnosis Comments CHEST PA AND LATERAL Routine 04/08/2018 10:05 EDT S/P CABG (coronary artery bypass graft) documented in this encounter Results * CHEST PA AND LATERAL (04/08/2018 10:05 EDT) Anatomical Region Laterality Modality Other 04/08/2018 10:0 5 EDT 04/08/2018 11:48 EDT Narrative 04/08/2018 11:48 EDT CHEST 2 VIEWS ??04/08/2018 10:05 AM CLINICAL HISTORY: Z95.1-Presence of aortocoronary bypass [id number]; s/p AVR/CABG TECHNIQUE: Two views of the chest were performed using dual energy technique with bone and soft tissue reconstruction. COMPARISON: Multiple prior chest radiographs, most recent 02/25/2018 FINDINGS: Soft tissues, bones, and extrathoracic findings: ??There are degenerative changes of the shoulders bilaterally. There are degenerative changes and mild kyphosis of the thoracic spine. Midline sternotomy wires are aligned and intact. Cardiac and mediastinal contours: Patient is status post CABG and aortic valve replacement with bovine valve. There is mild enlargement of the cardiac silhouette, improved from prior. Lungs/pleura: The lungs have cleared and pulmonary vasculature is normal. The left lateral costophrenic angle is indistinct secondary to either a small residual left-sided effusion or atelectasis. No evidence of right-sided pleural effusion or pneumothorax. IMPRESSION: Satisfactory postoperative chest radiograph. I have personally reviewed the images and the above interpretation and agree with the findings. Procedure Note Devyn Raphael MD - 04/08/2018 CHEST 2 VIEWS 04/08/2018 10:05 AM CLINICAL HISTORY: Z95.1-Presence of aortocoronary bypass [id number]; s/p AVR/CABG TECHNIQUE: Two views of the chest were performed using dual energy technique with bone and soft tissue reconstruction. COMPARISON: Multiple prior chest radiographs, most recent 02/25/2018 FINDINGS: Soft tissues, bones, and extrathoracic findings: There are degenerative changes of the shoulders bilaterally. There are degenerative changes and mild kyphosis of the thoracic spine. Midline sternotomy wires are aligned and intact. Cardiac and mediastinal contours: Patient is status post CABG and aortic valve replacement with bovine valve. There is mild enlargement of the cardiac silhouette, improved from prior. Lungs/pleura: The lungs have cleared and pulmonary vasculature is normal. The left lateral costophrenic angle is indistinct secondary to either a small residual left-sided effusion or atelectasis. No evidence of right-sided pleural effusion or pneumothorax. IMPRESSION: Satisfactory postoperative chest radiograph. I have personally reviewed the images and the above interpretation and agree with the findings. Wm Magana PA-C [facility] ORDERABLES documented in this encounter Visit Diagnoses Diagnosis S/P CABG (coronary artery bypass graft)- Primary Postsurgical aortocoronary bypass status documented in this encounter Care Teams Companion Caregiver Relationship Specialty Start Date End Date Kit Burch MD [address] [place] [address] [address] [place] [phone] PCP - General 01/15/18 10/29/23 documented as of this encounter
--- OUTSIDE RECORDS SUMMARY | 2024-03-03 01:19 | XMS_ITS | Encounter Summary ---
Author Organization [facility] Address [address] [place] [address] Care Team Providers Care Neuroscience Specialist Name Role Phone Kit Burch MD Primary Care Provider [phone] Reason for Visit * Reason Onset Date Comments Referral Request 08/31/2019 Encounter Details Date Type Department Care Team (Late st Contact Info) Description 08/31/2019 Telephone [facility] Dermatology [address]rd [address] [address] Enzo Ervin MD [address] [place] [address], [address] [place] [address] Referral Request Social History Tobacco Use Types Packs/Day Years [...] a physical, menta l, or emotional condition, does this person have difficulty doing errands alone such as visiting a doctor's office or shopping? No 04/14/2018 Cognitive Status Response Date of Assessm ent Because of a physical, menta l, or emotional condition, does this person have serious difficulty concentrating, remembering, or making decisions? No 04/14/2018 documented as of this encounter Miscellaneous Notes * Telephone Encounter - Cathy Cat - 10/19/2019 1158 EDT Patient is rescheduled to see Dr. Gagan Neff on 12/29/19 at 9:15 am. * Telephone Encounter - Romy Dacosta MA - 10/19/2019 1029 EDT Patient calling in stating that she is currently quarantined due to the fact that she flew back from [place]. She wants to cancel her appointment with Dr. Neff tomorrow 10/20/2019. She would like a call to reschedule this appointment ROMY DACOSTA MA 10/19/2019 10:31 * Telephone Encounter - Cathy Cat - 09/01/[address] Vincent Knight,30 (m1) patient's request. Patient is scheduled to see Dr. Gagan Neff on 10/20/19 at 9:15 am. Patient is aware of the procedure and verbalized a good understanding. Fax sent back to referring office. * Telephone Encounter - Marcia Thayer - 08/31/2019 0934 EST Reason for Referral: BCC of dorsum of nose Referring Provider: Kit Burch MD Notes and Pathology received documented in this encounter Plan of Treatment Upcoming Encounters Date Type Department Care Team (Late st Contact Info) Description 03/08/2025 11:00 EDT Office Visit [facility] Dermatology [address] [place] [phone] Cynthia Salinas MD [address] [facility], [address] [place] [address] documented as of this encounter Visit Diagnoses Not on filedocumented in this encounter Care Teams Neuroscience Specialist Relationship Specialty Start Date End Date Kit Burch MD [address] [place] [address] [place] [phone] PCP - General 01/15/18 10/29/23 documented as of this encounter
--- OUTSIDE RECORDS SUMMARY | 2024-03-03 01:19 | XMS_ITS | Referral Summary ---
Author Organization [facility] Address [address] [place] [address] Care Team Providers Care Automotive Customer Experience Advisor Name Role Phone [facility] Primary Care Provider [phone] Encounters Date Type Department Care Team Description 03/02/2024 13:40 EDT Office Visit [facility] Dermatology [address] [place], [place] [id number] Cynthia Salinas MD History of basal cell carcinoma (Primary Dx); Scar; Solar purpura (HCC-CMS); Neoplasm of uncertain behavior of skin; Intertrigo; Actinic keratosis; Multiple nevi from Last 3 Months Allergies Active Allergy Reactions Criticality Noted Date Comments Propofol 04/14/2018 PT WITH GREAT DIFFICULTY WAKING UP POST ANESTHESIA Morphine Other (See Comments) 02/22/2018 hallucinations Medications Medication Sig Dispensed Refills Start Date End Date Status calcium/magnesium (CALCIUM AND MAGNESIUM ORAL) Take by mouth daily. Active Zinc Acetate, Oral, 50 mg (zinc) capsule Take by mouth. Active tocopheryl acetate (VITAMIN E) 200 unit capsule Take 1 Capsule by mouth daily. Active krill oil 500 mg capsule Take by mouth daily. Acti ve chrm/vineg/bit-orang peel/gr t (APPLE CIDER VINEGAR PLUS ORAL) Take 2 Tablets by mouth daily. Active aspirin chewable 81 mg tablet Take 1 Tablet by mouth daily. Active ascorbic acid, vitamin C, (VITAMIN C) 500 mg tablet Take 1 Tablet by mouth daily. Active calcium carbonate (TUMS) 200 mg calcium (500 mg) tablet,chewable Take 1 Tablet by mouth 4 times daily as needed. Active cyanocobalamin (VITAMIN B-12) 100 mcg tablet Take 1 Tablet by mouth daily. Active simvastatin (ZOCOR) 20 mg tablet Take 1 Tablet by mouth daily. Active furosemide (LASIX) 20 mg tablet Take 1 Tablet by mouth 2 times daily. Active sertraline (ZOLOFT) 100 mg tablet Take 1 Tablet by mouth daily. Active acetaminophen (TYLENOL) 500 mg tablet Take 2 Tabs by mouth every 6 hours. 02/27/2018 Active UNKNOWN TO PATIENT sleeping pill patient unsure of name. Active metoprolol (LOPRESSOR) 50 mg tablet Take 1 Tablet by mouth. Pt reports taking 75 mg twice daily, AM and PM Active docusate sodium (COLACE) 100 mg capsule Take 2 Capsules by mouth 2 times daily as needed for Constipation. Active traMADol (ULTRAM) 50 mg tablet Take 50 mg by mouth every 6 hours as needed for Pain. Active triamcinolone (KENALOG) 0.1 % cream Apply topically to affected area 2 times daily. Do not apply to face, armpit or groin. 45 g 3 12/29/2019 Active Additional Information Patient not taking.Reported on 10/30/2023 chloroquine (ARALEN) 250 mg tablet Take 1 Tablet by mouth. 3 times a week 09/14/2023 Active dilTIAZem (CARDIZEM) 30 mg tablet Take 1 Tablet by mouth every evening. 09/11/2023 Active lisinopriL (PRINIVIL) 20 mg tablet Take 1 Tablet by mouth daily. 08/30/2023 Active omeprazole (PRILOSEC) 40 mg capsule Take 1 Capsule by mouth every morning. 08/30/2023 Active levothyroxine (SYNTHROID) 100 mcg tablet Take 1 Tablet by mouth daily. 09/13/2023 Active potassium chloride (MICRO-K) 10 mEq capsule Take 1 Capsule by mouth 2 times daily. 08/21/2023 Active guaiFENesin (MUCINEX) 600 mg SR tablet Take 1 Tablet by mouth 2 times daily. Active diphenhydrAMINE (BENADRYL) 25 mg capsule Take 1 Capsule by mouth as needed. Active ketoconazole (NIZORAL) 2 % cream Apply topically to affected area daily. For rash under the folds 60 g 11 03/02/2024 Active Active Problems Problem Noted Date Diagnosed Date Nonrheumatic aortic valve stenosis 02/22/2018 Coronary artery disease invo lving [place] heart with angina pectoris ([facility]) 02/22/2018 Social History Tobacco Use Types Packs/Day Years Used Date Smoking Tobacco: Former Cigarettes 0 07/27/1961 - 07/27/1962 Smokeless Tobacco: Never Tobacco Cessation:Counseling Given: Not Answered Interpersonal Safety Answer Date Record ed Physically Hurt Never 02/26/2020 Verbally Threaten Not on file 02/26/2020 Sex and Gender Information Value Date Recorded Sex Assigned at Not on file Gender Identity Female 11/09/2019 12:42 EDT Sexual Orientation Not on file Last Filed Vital Signs Vital Sign Reading Time Taken Comments Blood Pressure 131/60 10/30/2023 1430 EDT Pulse 66 10/30/2023 1430 EDT Temperature 36.6 ??C (97.9 ??F) 10/30/2023 1430 EDT Respiratory Rate 24 10/30/2023 1430 EDT Oxygen Saturation 96% 10/30/2023 1430 EDT Inhaled Oxygen Concentration - - Weight 78.9 kg (174 lb) 04/14/2018 1056 EDT Height 144.8 cm (4' 9.01) 04/14/2018 1056 EDT Body Mass Index 37.64 04/14/2018 1056 EDT Functional Status Functional Status Response Date of [...] concentrating, remembering, or making decisions? No 04/14/2018 Plan of Treatment Upcoming Encounters Date Type Department Care Team (Late st Contact Info) Description 03/08/2025 11:00 EDT Office Visit [facility] Dermatology [address] [place] [address] Cynthia Salinas MD [address] [place] [address], [address] [place] [phone] Advance Directives For more information, please contact: [phone] Documents on File Type Date Recorded Patient Quality Rn Expl anation COLST/MOLST 03/03/2018 8:00 2018-02-27 DNR /COLST * Full Code (Latest Code Status on File) Date Activated Date Inactivated Comments 02/22/2018 12:19 02/27/2018 13:16 Question Answer Comments Reason for decision includes: Full code consistent with overall plan of care Who participated in the discussion? Not Discusse d * Full Code Date Activated Date Inactivated Comments 02/22/2018 6:24 02/22/2018 12:19 Question Answer Comments Reason for decision includes: Full code consistent with overall plan of care Who participated in the discussion? Patient * Full Code Date Activated Date Inactivated Comments 02/08/2018 9:31 02/08/2018 17:47 Question Answer Comments Reason for decision includes: Full code consistent with overall plan of care Who participated in the discussion? Not Discusse d Care Teams Automotive Customer Experience Advisor Relationship Specialty Start Date End Date [facility] [address] [facility] [place] [id number] PCP - General 10/30/23
--- OUTSIDE RECORDS SUMMARY | 2024-03-03 01:19 | XMS_ITS | Encounter Summary ---
Author Organization [facility] Address [address] [place] [address] Care Team Providers Care Wood Type Finisher Name Role Phone Kit Burch MD Primary Care Provider [phone] Reason for Visit * Reason Onset Date Comments Update 03/23/2018 Encounter Details Date Type Department Care Team (Late st Contact Info) Description 03/23/2018 Telephone [facility] Cardiothoracic Surgery - [facility] [address] [place] [address] Sharla Clements, RN [address] [place] [address] Update Social History Tobacco Use Types Packs/Day Years [...] No 02/25/2018 documented as of this encounter Miscellaneous Notes * Telephone Encounter - Sharla Clements RN - 03/23/2018 [id number] EDT CARDIAC SURGERY NURSING DISCHARGE FOLLOW-UP CALL Surgery: CABG AVR Surgeon: Dr. Vogt Patient has reviewed Discharge Instructions / After Visit Summary given at Discharge from Hospital:No OR has Inpatient Rehabilitation Discharge Instructions and reviewed Yes [facility]. THE FOLLOWING INFORMATION HAS BEEN REVIEWED WITH Patient and [place] AT THIS TIME FOLLOWS: Home Health Is Home Health following patient? Yes Pain Rating Tool: Post-Operative Pain/Discomfort: No Intensity: 0 Location: NA Is pain medication relieving pain? NA Discharge Medications Reviewed: Yes Antibiotic Prophylaxis Handout from [employer] reviewed with patient or significantother? No Does the patient have a copy of this Handout Yes Restrictions Post-Operatively: No lifting, pushing, pulling greater than 10 pounds for 3 months No driving for 4 weeks from your discharge or as per the Provider reviewed Yes No driving while on narcotic pain relievers or other medications that alter judgement reviewed Yes Wear Surgical Bra for 6 weeks mini-sternotomy, 12 weeks full-sternotomy. Off daily for shower and reapply, pad between bra and incision: Yes Incisions: (Leg Incision if CABG & Sternal Incision) Redness: No Drainage: No Erythema: No Warm to Touch: No Swelling: No Incision healing/well-approximated: Yes Skin Care: Shower with soap and water daily with incisional dressings off. Reapply dressing following shower as needed or as directed in After Visit Summary: Yes No tub baths x 12 weeks full-sternotomy, 6 weeks mini-sternotomy or 2 weeks Mini-thoracotomy or VATS reviewed Yes Wash incisions carefully and pat dry reviewed Yes May remove clear glue tape (Dr. Vogt patients) from incisions at 10 days post-operatively reviewed If dermabond glue used as skin closure this will fall off on its own reviewed NA Cardiac: Rapid or irregular heart beat: No Dizziness: No Syncope: No Diaphoresis: No Shortness of Breath: No Lower extremity calf pain No Redness No Warmth to the Touch No Activity: Ambulating three times daily or as Per Instructions and progress as tolerated: Yes Cardiac Surgery Patients per Discharge Video reviewed: NA (REFRESH):[id number]} Work: Reviewed No work for 6 - 12 weeks or as per Provider (Surgeon). Patient must be cleared in office for return to work reviewed NA Sleep: Difficulty sleeping: Yes Sleep Hygiene reviewed for difficulty sleeping (relaxation techniques, minimize naps during daytime, relaxing activity at bedtime, pain management) Yes If continued difficulty sleeping patient instructed to discuss with Primary Care Yes Respiratory: Inspirometer use as directed 5 x daily (10 x each time): Yes Shortness of Breath: Yes Dyspnea on Exertion: No Productive Cough: No Gastrointestinal: BM: daily Taking bowel medications as instructed (Colace / Docusate take regularly scheduled BID when taking Narcotic Pain Relievers. Taking Laxative PRN for constipation (see Prism Meds Ordered) No Positive Flatus - Yes Abdominal Pain NO Nausea NO Vomiting No Blood in Stool NO Urinary: Urinating: Yes or No Yes Frequency, Burning, Pain, Urgency: No Blood noted in urine / red in color: NO PO Intake and Appetite: Appetite: No PO Intake adequate: Yes Fluid Intake adequate: Yes Weight (Cardiac Surgery Patients): No weight gain of 3 lbs or greater in one day or progressive weight gain one pound per day for three days): Yes Weight same time every day for 2 weeks: Yes Extremity Edema: No Elevate legs above heart when sitting or supine if edema Yes Fever: Take temperature twice daily (for approx 2 weeks) if temperature of 101 degress or greater call Provider: NA Afebrile: Yes Appointments: Cardiothoracic Surgery Follow-up appointment made (6 weeks cardiac, 4 weeks thoracic, or other per Discharge Instructions): Yes For patients being seen for their Cardiac Surgery Follow-up in our [facility] Office with Dr. Villafana appointment confirmed at this time for location, time for check in and chest x-ray check in time. Cardiology Follow-up Appointment made (2-4 weeks or as per Discharge Instructions): If [facility] email cardschedule to have them make a follow-up appointment and they will call the patient orask field supervisor to do this. If Private Practice [facility] ask patient to call and make appointment: Yes Primary Care Provider Follow-up Appointment made (see within 1-2 weeks of discharge): No Cardiac Rehabilitation for Cardiac Surgery Patients Has patient started cardiac rehabilitation: No If not does patient plan to start Yes PLAN: Continue to follow After Visit Summary and Information reviewed above. Contact the Provider with any questions. PLAN FOR ANY ABNORMALITIES ABOVE: None Patient Verbalizes Undertsanding of Information Reviewed: Yes Barriers to Learning: Yes documented in this encounter Plan of Treatment Upcoming Encounters Date Type Department Care Team (Late st Contact Info) Description 03/08/2025 11:00 EDT Office Visit [facility] Dermatology [address] [place] [address] Cynthia Salinas MD [address] [place] [address], [facility] [address] [place] [phone] documented as of this encounter Visit Diagnoses Not on filedocumented in this encounter Care Teams Wood Type Finisher Relationship Specialty Start Date End Date Kit Burch MD [address] [place] [phone] PCP - General 01/15/18 10/29/23 documented as of this encounter
--- OUTSIDE RECORDS SUMMARY | 2024-03-03 01:19 | XMS_ITS | Encounter Summary ---
Author Organization [facility] Address [address] [place] [address] Care Team Providers Care Leather Parts Matcher Name Role Phone Kit Burch MD Primary Care Provider Reason for Referral * Consult (Routine) - Closed Specialty Diagnoses / Procedures Referred By Ana caro Referred To Contact Diagnoses Chronic diastolic congestive heart failure (HCC-CMS) Coronary artery disease involving coronary bypass graft of [place] heart without angina pectoris S/P AVR Milagro Lozano RN [address] [place] [address] Referral ID Status Reason Start Date Expiration Date V isits Requested Visits Authorized [id number] Closed Specialty Services Required 04/14/2018 1 1 Question Answer Reason for Request: s/p CABG and AVR Practice Site (External Referral Only): [facility] * Laboratory Services (Routine) - New Request Specialty Diagnoses / Procedures Referred By Ana caro Referred To Contact Diagnoses Coronary artery disease involving coronary bypass graft of [place] heart without angina pectoris Procedures BASIC METABOLIC PANEL (BMP) Milagro Lozano RN [address] [place] [address] Referral ID Status Reason Start Date Expiration Date V isits Requested Visits Authorized [id number] New Request 04/14/2018 1 1 Reason for Visit * Reason Comments Coronary Artery Disease POH s/p CABGx1 Aortic Stenosis Fatigue Encounter Details Date Type Department Care Team (Late st Contact Info) Description 04/14/2018 11:00 EDT Office Visit [facility] Cardiology - [address] [place], [place] [id number] Milagro Lozano RN [address] [place] [address] Coronary artery disease involving coronary bypass graft of [place] heart without angina pectoris (Primary Dx); Chronic diastolic congestive heart failure (HCC-CMS); S/P AVR Discharge Disposition: Auto Discharge Social History Tobacco Use Types Packs/Day Years Used Date Smoking Tobacco: Former Cigarettes 0 07/27/1961 - 07/27/1962 Smokeless Tobacco: Never Sex and Gender Information Value Date Recorded Sex Assigned at Not on file Gender Identity Female 11/09/2019 12:42 EDT Sexual Orientation Not on file documented as of this encounter Last Filed Vital Signs Vital Sign Reading Time Taken Comments Blood Pressure 124/68 04/14/2018 1056 EDT large cuff Pulse 56 04/14/2018 1056 EDT Temperature - - Respiratory Rate 16 04/14/2018 1056 EDT Oxygen Saturation 96% 04/14/2018 1056 EDT Inhaled Oxygen Concentration - - Weight 78.9 kg (174 lb) 04/14/2018 1056 EDT Height 144.8 cm (4' 9.01) 04/14/2018 1056 EDT Body Mass Index 37.64 04/14/2018 1056 EDT documented in this encounter Functional Status Functional Status Response [...] No 04/14/2018 documented as of this encounter Discharge Diagnoses Diagnosis I25.810 Atherosclerosis of coronary artery bypass graft(s) without angina pectoris-I25.810[ICD-10-CM] I50.32 Chronic diastolic (congestive) heart failure-I50.32[ICD-10-CM] Z95.2 Presence of prosthetic heart valve-Z95.2[ICD-10-CM] documented in this encounter Discharge Disposition Disposition Code Departure Means Destination Auto Discharge documented in this encounter Progress Notes * Milagro Lozano NP - 04/14/2018 1100 EDT HPI: Pt here for posthospital visit for CAD s/p CABGx1 (WALTERS-LAD) and AVR([place] bovine pericardial valve, size small) February 22, 2018. Pt presented with JONES and decreased activity tolerance. Pt reports some improvement, but continues to be fatigued. Had great difficulty wakening from anesthesia by family report and review in [facility]. Developed isolated episode of afib. EKG 02/25/2018 SR. I do not believe she is in afib today. She was transferred to [facility] on February 27, 2018. Has since been home recovering. She has been grievingthe loss of her SO and a sister in the interim. Does not follow a particular diet. No structured exercise. BP stable. Labs at discharge reveal hgb/hct/plts . No lipids in prism. Followed by Dr. De Dios at [facility]. Pt denies chest pain on exertion, orthopnea, paroxysmal nocturnal dyspnea, leg swelling, dizziness and syncope, denies fevers or chills. Pt has been compliant with her medications. Medications side effects include none. Past Medical History: Diagnosis Date ??? Aortic stenosis ??? Depression ??? Endometrial cancer ([facility]) ??? Hyperlipidemia ??? Hypertension ??? Hypothyroid ??? CINTHIA (obstructive sleep apnea) Patient Active Problem List Diagnosis Date Noted ??? Nonrheumatic aortic valve stenosis 02/22/2018 Priority: Medium ??? Coronary artery disease involving [place] heart with angina pectoris ([facility]) 02/22/2018 Priority: Medium Past Surgical History: Procedure Laterality Date ??? SHAWNEE AND BSO age 27 ??? TOTAL KNEE ARTHROPLASTY Bilateral ??? WRIST SURGERY Current Outpatient Prescriptions Medication Sig Dispense Refill ??? acetaminophen (TYLENOL) 500 mg tablet Take 2 Tabs by mouth every 6 hours. ??? Aloe Vera 25 mg capsule Take by mouth. ??? ascorbic acid, vitamin C, (VITAMIN C) 500 mg tablet Take 500 mg by mouth daily. ??? aspirin chewable 81 mg tablet Take 81 mg by mouth daily. ??? calcium carbonate (TUMS) 200 mg calcium (500 mg) tablet,chewable Take 1 Tab by mouth 4 times daily as needed. ??? calcium/magnesium (CALCIUM AND MAGNESIUM ORAL) Take by mouth. ??? chrm/vineg/bit-orang peel/gr t (APPLE CIDER VINEGAR PLUS ORAL) Take by mouth. ??? Cinnamon Bark 500 mg capsule Take by mouth. ??? coconut oil 1,000 mg capsule Take by mouth. ??? cranberry fruit extract (CRANBERRY ORAL) Take by mouth. ??? cyanocobalamin (VITAMIN B-12) 100 mcg tablet Take 100 mcg by mouth daily. ??? furosemide (LASIX) 20 mg tablet Take 20 mg by mouth 2 times daily. ??? krill oil 500 mg capsule Take by mouth. ??? levothyroxine (SYNTHROID) 125 mcg tablet Take 125 mcg by mouth daily. ??? sertraline (ZOLOFT) 100 mg tablet Take 50 mg by mouth daily. ??? simvastatin (ZOCOR) 20 mg tablet Take 20 mg by mouth daily. ??? tocopheryl acetate (VITAMIN E) 200 unit capsule Take 200 Units by mouth daily. ??? UNABLE TO FIND Med Name: CBD oil ??? UNKNOWN TO PATIENT sleeping pill patient unsure of name. ??? Zinc Acetate, Oral, 50 mg (zinc) capsule Take by mouth. No current facility-administered medications for this visit. Current Outpatient Prescriptions on File Prior to Visit Medication Sig Dispense Refill ??? acetaminophen (TYLENOL) 500 mg tablet Take 2 Tabs by mouth every 6 hours. ??? Aloe Vera 25 mg capsule Take by mouth. ??? ascorbic acid, vitamin C, (VITAMIN C) 500 mg tablet Take 500 mg by mouth daily. ??? aspirin chewable 81 mg tablet Take 81 mg by mouth daily. ??? calcium carbonate (TUMS) 200 mg calcium (500 mg) tablet,chewable Take 1 Tab by mouth 4 times daily as needed. ??? calcium/magnesium (CALCIUM AND MAGNESIUM ORAL) Take by mouth. ??? chrm/vineg/bit-orang peel/gr t (APPLE CIDER VINEGAR PLUS ORAL) Take by mouth. ??? Cinnamon Bark 500 mg capsule Take by mouth. ??? coconut oil 1,000 mg capsule Take by mouth. ??? cranberry fruit extract (CRANBERRY ORAL) Take by mouth. ??? cyanocobalamin (VITAMIN B-12) 100 mcg tablet Take 100 mcg by mouth daily. ??? furosemide (LASIX) 20 mg tablet Take 20 mg by mouth 2 times daily. ??? krill oil 500 mg capsule Take by mouth. ??? levothyroxine (SYNTHROID) 125 mcg tablet Take 125 mcg by mouth daily. ??? sertraline (ZOLOFT) 100 mg tablet Take 50 mg by mouth daily. ??? simvastatin (ZOCOR) 20 mg tablet Take 20 mg by mouth daily. ??? tocopheryl acetate (VITAMIN E) 200 unit capsule Take 200 Units by mouth daily. ??? UNABLE TO FIND Med Name: CBD oil ??? UNKNOWN TO PATIENT sleeping pill patient unsure of name. ??? Zinc Acetate, Oral, 50 mg (zinc) capsule Take by mouth. No current facility-administered medications on file prior to visit. Allergies Allergen Reactions ??? Morphine Other (See Comments) hallucinations Review of Systems Pertinent positives are noted above. The remainder of a 10-point review of systems was negative. Objective: BP 124/68 Comment: large cuff Pulse 56 Resp 16 Ht (!) 144.8 cm (57.01) Wt 78.9 kg (174 lb) SpO2 96% BMI 37.64 kg/m2 Physical Exam: General: Alert, cooperative, no distress, appears stated age. Eyes: Conjunctivae not injected, not pale, nonicteric. Ears: Hearing grossly intact. Neck: Trachea midline Carotid upstroke normal, no carotid bruit and no JVD. Lungs: Clear to auscultation bilaterally. Chest wall: No tenderness or deformity. Heart: Regular heart sounds, S1, S2 normal, no murmur or rub heard. Normal apical impulse. Abdomen: Soft, non-tender to palpation. No bruits heard. Extremities: No peripheral edema. No cyanosis. Pulses: Radial pulses 2+ bilaterally. Skin: No pallor, rashes or lesions. Neurologic: Normal strength, nonfocal on exam. Data: I reviewed the ECG obtained on 02/25/2018. ECG Findings: SINUS RHYTHM WITH FREQUENT SUPRAVENTRICULAR PREMATURE COMPLEXES Left bundle branch block I reviewed the report of the most recent C obtained on 02/08/2018. LHC Findings: 1. HPI and indications: Aortic stenosis. 2. Coronary arteries: Left subclavian angio for pre-CABG evaluation ? shows a large WALTERS. 3. LAD: Mid-vessel lesion: There is an 80% stenosis. 4. Right coronary: Mid-vessel lesion: There is a 50% stenosis. 5. Left internal mammary: Normal, well visualized. Normal-sized vessel Lab Review: Lab Results Component Value Date NA 135 (L) 02/27/2018 NA 135 (L) 02/26/2018 NA 135 (L) 02/25/2018 K 3.9 02/27/2018 K 4.1 02/26/2018 K 4.1 02/25/2018 CL 101 02/27/2018 CL 102 02/26/2018 CL 105 02/25/2018 CO2 28 02/27/2018 CO2 27 02/26/2018 CO2 26 02/25/2018 BUN 20 02/27/2018 BUN 22 02/26/2018 BUN 20 02/25/2018 CREATININE 0.70 02/27/2018 CREATININE 0.58 02/26/2018 CREATININE 0.63 02/25/2018 CALCIUM 8.0 (L) 02/25/2018 Lab Results Component Value Date WBC 11.88 02/27/2018 WBC 12.25 02/26/2018 WBC 13.19 (H) 02/25/2018 HGB 9.7 (L) 02/27/2018 HGB 9.6 (L) 02/26/2018 HGB 10.0 (L) 02/25/2018 HCT 28.2 (L) 02/27/2018 HCT 28.7 (L) 02/26/2018 HCT 29.2 (L) 02/25/2018 MCV 100 (H) 02/27/2018 MCV 100 (H) 02/26/2018 MCV 99 (H) 02/25/2018 PLT 113 (L) 02/27/2018 PLT 96 (L) 02/26/2018 PLT 79 (L) 02/25/2018 No results found for: CHOL, TRIG, HDL, LDLBASE Assessment/Plan: S/p AVR and CABG x 1. Progressing slowly. Also grieving 2/2 loss of SO and sister. Encourage pt to start short walks, low fat/low carb diet No indication for medication changes or further interventions Cardiac Rehab referral to [facility] with Dr. De Dios next week Thirty-five minutes was spent with the patient with greater than 50% of the time spent [id number], providing patient education and coordinating the plan of care. I was supervised by Dr. Cherry who was on site and available. Portions of this document may have been prepared with speech recognition software or keyboard data processing systems project planner techniques. Minor irregularities or keyboarding misprints may be present Milagro Lozano NP Interventional Cardiology documented in this encounter Plan of Treatment Upcoming Encounters Date Type Department Care Team (Late st Contact Info) Description 03/08/2025 11:00 EDT Office Visit [facility] Dermatology [address] [place] [address] Cynthia Salinas MD [address] [place] [address], [facility] [address] [place] [phone] Scheduled Orders Name Type Priority Associated Diagnoses Orde r Schedule BASIC METABOLIC PANEL (BMP) Lab Routine Coronary artery disease involving coronary bypass graft of [place] heart without angina pectoris Expected: 04/14/2018 (Approximate), Expires: 04/14/2019 Scheduled Referrals Name Type Priority Associated Diagnoses Order Schedule AMB CONS/FOLLOW UP CARDIAC REHABILITATION Outpatient Referral Routine Chronic diastolic congestive heart failure (HCC-CMS) Coronary artery disease involving coronary bypass graft of [place] heart without angina pectoris S/P AVR Ordered: 04/14/2018 documented as of this encounter Results * (ABNORMAL) NT PRO BNP (04/14/2018 11:59 EDT) NT Pro BNP 1,060(H) <300 pg/ml 04/14/2018 16:42 EDT [facility] Comment: Reference Range: NT-proBNP values less than 300 pg/ml have a 99% negative predictive value for excluding acute congestive heart failure. A diagnostic NT-proBNP cutoff of 900 pg/ml has been suggested in adults over 50 years of age in the absence of renal failure. A cutoff of 1200 pg/ml for patients with an eGFR <60 yields a diagnostic sensitivity and specificity of 89% and 72% for acute congestive failure. The results of this assay can be falsely lowered due to the consumption of Biotin. Blood specimen (specimen) BLOOD SPECIMEN / Unknown 04/14/2018 11:59 EDT 04/14/2018 16:00 EDT Milagro Lozano RN CHEMISTRY & BLOOD GA S ORDERABLES [facility] [address] [place] [address] * (ABNORMAL) COMPLETE BLOOD COUNT (04/14/2018 11:59 EDT) WBC 10.40 4.0 - 12.4 K/cmm 04/14/2018 16:31 [facility] RBC 4.09 3.86 - 5.04 M/cmm 04/14/2018 16:31 [facility] Hemoglobin 13.9 11.6 - 15.2 gm/dl 04/14/2018 16:31 [facility] HCT 41.4 34.9 - 44.4 % 04/14/2018 16:31 [facility] MCV 101(H) 81 - 98 fl 04/14/2018 16:31 [facility] MCH 34.0(H) 26.7 - 33.3 pg 04/14/2018 16:31 [facility] MCHC 33.6 32.1 - 35.9 gm/dl 04/14/2018 16:31 [facility] RDW-CV 12.6 <14.7 % 04/14/2018 16:31 [facility] RDW-SD 47.5 <50.4 fl 04/14/2018 16:31 [facility] PLT 178 141 - 377 K/cmm 04/14/2018 16:31 [facility] MPV 11.8 9.5 - 12.7 fl 04/14/2018 16:31 EDT [facility] Blood specimen (specimen) BLOOD SPECIMEN / Unknown 04/14/2018 11:59 EDT 04/14/2018 16:00 EDT Milagro Lozano RN HEMATOLOGY & PF4 ORD ERABLES [facility] [address] [place] [address] documented in this encounter Visit Diagnoses Diagnosis Coronary artery disease involving coronary bypass graft of [place] heart without angina pectoris- Primary Chronic diastolic congestive heart failure ([facility]) Chronic diastolic heart failure S/P AVR Heart valve replaced by other means documented in this encounter Historical Medications * This list may reflect changes made after this encounter. Medication Sig Dispensed Refills Start Date End Date traMADol (ULTRAM) 50 mg tablet Take 50 mg by mouth every 6 hours as needed for Pain. docusate sodium (COLACE) 100 mg capsule Take 2 Capsules by mouth 2 times daily as needed for Constipation. metoprolol (LOPRESSOR) 50 mg tablet Take 1 Tablet by mouth. Pt reports taking 75 mg twice daily, AM and PM potassium chloride (KLOR-CON) 20 mEq packet Take 10 mEq by mouth 2 times daily. 10/30/2023 added in this encounter Care Teams Leather Parts Matcher Relationship Specialty Start Date End Date Kit Burch MD [facility] [address] [place] [phone] PCP - General 01/15/18 10/29/23 documented as of this encounter
--- OUTSIDE RECORDS SUMMARY | 2024-03-03 01:19 | XMS_ITS | Encounter Summary ---
Author Organization [facility] Address [address] [place] [address] Care Team Providers Care Layout Designer Name Role Phone Kit Burch MD Primary Care Provider Reason for Visit * Reason Onset Date Comments Referral Request 04/16/2018 Encounter Details Date Type Department Care Team (Late st Contact Info) Description 04/16/2018 Telephone [facility] Cardiology - [address] [address] Milagro Lozano, STACIE [address] [place] [address] Referral Request Social History Tobacco Use Types [...] encounter Miscellaneous Notes * Telephone Encounter - Haydee Collier - 04/19/2018 1313 EDT Per referral request, faxed most recent OV note, procedure note, d/c summary and [facility] * Telephone Encounter - Che Mart - 04/16/2018 1147 EDT [facility] calling to request that a referral be sent to [facility] # [phone]. States that Milagro Lozano needs to order documented in this encounter Plan of Treatment Upcoming Encounters Date Type Department Care Team (Late st Contact Info) Description 03/08/2025 11:00 EDT Office Visit [facility] Dermatology [address] [place] [address] Cynthia Salinas MD [address] [place] [address], [facility] [address] [place] [address] documented as of this encounter Visit Diagnoses Not on filedocumented in this encounter Care Teams Layout Designer Relationship Specialty Start Date End Date Kit Burch MD [address] [place] [phone] PCP - General 01/15/18 10/29/23 documented as of this encounter
--- OUTSIDE RECORDS SUMMARY | 2024-03-03 01:19 | XMS_ITS | Encounter Summary ---
Author Organization [facility] Address [address] [place] [address] Care Team Providers Care Visualization Developer Name Role Phone Kit Burch MD Primary Care Provider [phone] Encounter Details Date Type Department Care Team (Latest Contact Info) Description 04/14/2018 11:40 EDT Procedure visit [facility] Endocrinology - [facility] [address] [place], [place] [id number] Milagro Lozano RN [address] [place], [place] [phone] Phlebotomy, [facility] Endo Coronary artery disease involving coronary bypass graft of [place] heart without angina pectoris; Chronic diastolic congestive heart failure ([facility]) Discharge Disposition: Auto Discharge Social History Tobacco [...] coronary artery bypass graft(s) without angina pectoris-I25.810[ICD-10-CM] documented in this encounter Discharge Disposition Disposition Code Departure Means Destination Auto Discharge documented in this encounter Progress Notes * Milagro Medeiros - 04/14/2018 1140 EDT Venipuncture preformed for CBC, BMP, NTproBNP Per orders of Violette Lozano Diagnosis of I25.810 414.05 I was supervised by Miryam Contreras who was present and immediately available in the office suite. Milagro Medeiros 04/14/2018 11:59 documented in this encounter Plan of Treatment Upcoming Encounters Date Type Department Care Team (Late st Contact Info) Description 03/08/2025 11:00 EDT Office Visit [facility] Dermatology [address] [place] [address] Cynthia Salinas MD [address] [place] [address], [address] [place] [address] documented as of this encounter Procedures Procedure Name Priority Date/Time Associated Diagnosis Comments COMPLETE BLOOD COUNT Routine 04/14/2018 11:59 EDT Coronary artery disease involving coronary bypass graft of [place] heart without angina pectoris NT PRO BNP Routine 04/14/2018 11:59 EDT Coronary artery disease involving coronary bypass graft of [place] heart without angina pectoris Chronic diastolic congestive heart failure ([facility]) documented in this encounter Results * (ABNORMAL) COMPLETE BLOOD COUNT (04/14/2018 11:59 EDT) WBC 10.40 4.0 - 12.4 K/cmm 04/14/2018 16:31 [facility] RBC 4.09 3.86 - 5.04 M/cmm 04/14/2018 16:31 [facility] Hemoglobin 13.9 11.6 - 15.2 gm/dl 04/14/2018 16:31 [facility] HCT 41.4 34.9 - 44.4 % 04/14/2018 16:31 [facility] MCV 101(H) 81 - 98 fl 04/14/2018 16:31 [facility] MCH 34.0(H) 26.7 - 33.3 pg 04/14/2018 16:31 [facility] MCHC 33.6 32.1 - 35.9 gm/dl 04/14/2018 16:31 [facility] RDW-CV 12.6 <14.7 % 04/14/2018 16:31 [facility] RDW-SD 47.5 <50.4 fl 04/14/2018 16:31 [facility] PLT 178 141 - 377 K/cmm 04/14/2018 16:31 [facility] MPV 11.8 9.5 - 12.7 fl 04/14/2018 16:31 [facility] Blood specimen (specimen) BLOOD SPECIMEN / Unknown 04/14/2018 11:59 EDT 04/14/2018 16:00 EDT Milagro Lozano RN HEMATOLOGY & PF4 ORD ERABLES [facility] [address] [place] [address] * (ABNORMAL) NT PRO BNP (04/14/2018 11:59 EDT) NT Pro BNP 1,060(H) <300 pg/ml 04/14/2018 16:42 [facility] Comment: Reference Range: NT-proBNP values [...] RN CHEMISTRY & BLOOD GA S ORDERABLES [facility] [address] [place] [address] documented in this encounter Visit Diagnoses Diagnosis Coronary artery disease involving coronary bypass graft of [place] heart without angina pectoris Chronic diastolic congestive heart failure (HCC-CMS) Chronic diastolic heart failure documented in this encounter Orders Lab Orders Without Results Count Last Ordered D ate First Ordered Date BASIC METABOLIC PANEL (BMP) 1 04/14/2018 documented in this encounter Care Teams Visualization Developer Relationship Specialty Start Date End Date Kit Burch MD [facility] [employer] [address] [phone] PCP - General 01/15/18 10/29/23 documented as of this encounter
--- OUTSIDE RECORDS SUMMARY | 2024-03-03 01:19 | XMS_ITS | Encounter Summary ---
Author Organization [facility] Address [address] [place] [address] Care Team Providers Care Bricklayer Helper Name Role Phone Kit Burch MD Primary Care Provider [phone] [facility] Primary Care Provider [phone] Encounter Details Date Type Department Care Team (Late st Contact Info) Description 03/06/2022 Lab Requisition [facility] Pathology & Laboratory Medicine - [address] [id number] Outr Resulting Lab, Provider Social History Tobacco Use Types Packs/Day Years Used Date Smoking Tobacco: Former Cigarettes 0 07/27/1961 - 07/27/1962 Smokeless Tobacco: Never Interpersonal Safety Answer Date Record ed Physically [...] No 04/14/2018 Cognitive Status Response Date of Assess ent Because of a physical, menta l, or emotional condition, does this person have serious difficulty concentrating, remembering, or making decisions? No 04/14/2018 documented as of this encounter Plan of Treatment Upcoming Encounters Date Type Department Care Team (Late st Contact Info) Description 03/08/2025 11:00 EDT Office Visit [facility] Dermatology [address] [place] [address] Cynthia Salinas MD [address] [place] [address] [address] [place] [address] documented as of this encounter Procedures Procedure Name Priority Date/Time Associated Diagnosis Comments SPEP WITH IMMUNOTYPING PERFORMABLE Today 03/06/2022 11:27 EDT SPEP WITH IMMUNOTYPING Routine 03/06/2022 11:27 EDT PROTEIN, TOTAL Today 03/06/2022 11:27 EDT documented in this encounter Results * (ABNORMAL) SPEP WITH IMMUNOTYPING PERFORMABLE (03/06/2022 11:27 EDT) Albumin % 55.0(L) 55.8 - 66.1 % 03/07/2022 13:09 [facility] Albumin g/dL 4.1 3.6 - 5.2 g/dL 03/07/2022 13:09 [facility] Alpha-1 % 3.8 2.9 - 4.9 % 03/07/2022 13:09 [facility] Alpha-1 g/dL 0.30 0.15 - 0.40 g/dL 03/07/2022 13:09 [facility] Alpha-2 % 11.5 7.1 - 11.8 % 03/07/2022 13:09 [facility] Alpha-2 g/dL 0.90 0.50 - 1.00 g/dL 03/07/2022 13:09 [facility] Beta % 12.1 8.4 - 13.1 % 03/07/2022 13:09 [facility] Beta g/dL 0.90 0.60 - 1.20 g/dL 03/07/2022 13:09 [facility] Gamma % 17.6 11.1 - 18.8 % 03/07/2022 13:09 [facility] Gamma g/dL 1.30 0.60 - 1.60 g/dL 03/07/2022 13:09 [facility] SPEP Comment No apparent monoclonal protein seen on serum electrophoresis 03/07/2022 13:09 [facility] Comment:See scanned/suppleme ntary report. Immunotyping , Serum Current Interpretation: Negative for monoclonal immunoglobulins. Reviewed by: Jed Duong MD 03/07/2022 1055 03/07/2022 13:09 [facility] Total Protein 7.4 6.3 - 8.2 g/dL 03/07/2022 13:09 [facility] Blood VENOUS BLOOD / Unknown 03/06/2022 11:27 EDT 03/06/2022 21:26 EDT Provider Outr Resulting Lab CHEMISTRY & BLOOD GAS ORDERABLES Performing Organization Address [facility] Co de Phone Number [facility] [address] [place] [address] * PROTEIN, TOTAL (03/06/2022 11:27 EDT) Blood VENOUS BLOOD / Unknown 03/06/2022 11:27 EDT 03/06/2022 21:26 EDT Provider Outr Resulting Lab CHEMISTRY & BLOOD GAS ORDERABLES Performing Organization Address City/[facility]/ZIP Co de Phone Number [facility] [address] [place] [address] documented in this encounter Visit Diagnoses Not on filedocumented in this encounter Care Teams Bricklayer Helper Relationship Specialty Start Date End Date Kit Burch MD [address] [place] [address] [address] [place] [address] PCP - General 01/15/18 10/29/23 [facility] [address] [place] [address] PCP - General 10/30/23 documented as of this encounter
--- OUTSIDE RECORDS SUMMARY | 2024-03-03 01:19 | XMS_ITS | Clinical Summary ---
Author Organization [facility] Address [address] [place] [address] Care Team Providers Care Graphics Software Engineer Name Role Phone [facility] Primary Care Provider [phone] Allergies Active Allergy Reactions Criticality Noted Date [...] stenosis 02/22/2018 Coronary artery disease invo lving [place] heart with angina pectoris (HCC-CMS) 02/22/2018 Encounters Date Type Department Care Team Description 03/02/2024 13:40 EDT Office Visit [facility] Dermatology [address] [place] [address] Cynthia Salinas MD History of basal cell carcinoma (Primary Dx); Scar; Solar purpura (HCC-CMS); Neoplasm of uncertain behavior of skin; Intertrigo; Actinic keratosis; Multiple nevi from Last 3 Months Surgical History Surgery Date Site/Laterality Comments SHAWNEE AND BSO age 27 TOTAL KNEE ARTHROPLASTY Bilateral WRIST SURGERY Medical History Medical History Date Comments Aortic stenosis Hypertension Hyperlipidemia CINTHIA (obstructive sleep apnea) Hypothyroid Depression Endometrial cancer (HCC-CMS) Family History Medical History Relation Comments Heart Disease Mother Relation Status Comments Father Mother Social History Tobacco Use Types Packs/Day Years [...] 12:42 EDT Sexual Orientation Not on file Obstetrics History Last Filed Vital Signs Vital Sign Reading [...] Body Mass Index 37.64 04/14/2018 1056 EDT Plan of Treatment Upcoming Encounters Date Type Department Care Team (Late st Contact Info) Description 03/08/2025 11:00 EDT Office Visit 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 Not Discusse d Care Teams Graphics Software Engineer Relationship Specialty Start Date End Date [facility] 4 [facility] [address] PCP - General 10/30/23
--- OUTSIDE RECORDS SUMMARY | 2024-03-03 01:19 | XMS_ITS | Encounter Summary ---
Author Organization [facility] Address [address] [place] [address] Care Team Providers Care Flame Degreaser Name Role Phone Kit Burch MD Primary Care Provider [phone] Reason for Visit * Reason Onset Date Comments Results 04/19/2018 Encounter Details Date Type Department Care Team (Late st Contact Info) Description 04/19/2018 Telephone [facility] Cardiology - [place] [address] Gilda Bowen RN Results Social History Tobacco Use Types Packs/Day Years [...] encounter Miscellaneous Notes * Telephone Encounter - Bowen, Gilda, RN - 04/23/2018 0909 EDT Called and spoke to Liya she was at her sons home staying for awhile We reviewed Milagro Lozano'sNP recommendations for patient to monitor sodium intake, daily weights etc. Patient verbalized understanding with no learning barriers. Patient did her f/u with integrated circuit fabricator near her home * Telephone Encounter - Gilda Bowen RN - 04/19/2018 1027 EDT Images from the original note were not included. LM on mobile phone to return my call to my direct line There was no answer on home phone number. Message Received: 3 days ago ? Milagro Lozano NP Doyle, Roxane, RN ? Please let pt know here electrolytes, blood counts and kidney function look good. Her heart failure marker is mildly elevated. Recommend daily weights, limit sodium intake to 2000mg daily, and to monitor for s/sxs of HF - SOB, activity intolerance, LE edema. Take additional lasix 20 mg po for weight gain 3# in 1 day. Encourage CR. F/u with Dr. De Dios as scheduled. Thank you, Milagro Lozano DNP PUTTY PATCHER-C ? Associated Results ? BASIC METABOLIC PANEL (BMP) Status: Final result Visible to patient: No (Not Released) Order: [id number] ? Notes Recorded by Milagro Lozano NP on 04/16/2018 at 13:45 Please let pt know here electrolytes, blood counts and kidney function look good. Her heart failuremarker is mildly elevated. Recommend daily weights, limit sodium intake to 2000mg daily, and to monitor for s/sxs of HF - SOB, activity intolerance, LE edema. Take additional lasix 20 mg po for weight gain 3# in 1 day. Encourage CR. F/u with Dr. De Dios as scheduled. Thank you, Milagro Lozano DNP PUTTY PATCHER-C ?? Ref Range & Units 5d ago (04/14/18) 1mo ago (02/27/18) 1mo ago (02/27/18) 1mo ago (02/27/18) ?? Sodium 136 - 145 mEq/L 142 135 (L) ?? Potassium 3.5 - 5.0 mEq/L 4.1 3.9 ?? Chloride 96 - 110 mEq/L 103 101 ?? CO2 22 - 32 mEq/L 31 28 ?? BUN 10 - 26 mg/dl 20 20 ?? Creatinine 0.52 - 1.04 mg/dl 0.71 0.70 ?? GFR, Calculated >60 ml/min/1.73m2 86 87CM ?? Comments: eGFR calculated using CKD-EPI equation for non Americans. Multiply eGFR by 1.16 for Americans. ?? Calcium 8.5 - 10.5 mg/dl 9.5 ?? Calculated Calcium 8.5 - 10.5 mg/dl 9.5 ?? Glucose, Serum 70 - 100 mg/dl 95 ?? Fasting? Unknown ?? Resulting Agency [facility] ? Specimen Collected: 04/14/18 11:59 ?? Last Resulted: 04/14/18 16:34 ?? documented in this encounter Plan of Treatment Upcoming Encounters Date Type Department Care Team (Late st Contact Info) Description 03/08/2025 11:00 EDT Office Visit [facility] Dermatology [address] [place] [id number] Cynthia Salinas MD [address] [place] [address], [address] [place] [address] documented as of this encounter Visit Diagnoses Not on filedocumented in this encounter Care Teams Flame Degreaser Relationship Specialty Start Date End Date Kit Burch MD [address] [place] [address] [address] [place] [address] PCP - General 01/15/18 10/29/23 documented as of this encounter
--- OUTSIDE RECORDS SUMMARY | 2024-03-03 01:19 | XMS_ITS | Encounter Summary ---
Author Organization [facility] Address [address] [place] [address] Care Team Providers Care Edge Stainer Machine Name Role Phone Kit Burch MD Primary Care Provider [phone] Encounter Details Date Type Department Care Team (Late st Contact Info) Description 03/12/2018 Historical Results Only [facility] - Main Champion [address] [place] [address] Ishmael Kilgore MD [address] [place] [address] [address] [place] [address] Social History Tobacco Use Types Packs/Day Years [...] Info) Description 03/08/2025 11:00 EDT Office Visit [facility] Dermatology [address] [place] [address] Cynthia Salinas MD [address] [place] [address] [address] [place] [address] documented as of this encounter Procedures Procedure Name Priority Date/Time Associated Diagnosis Comments BACTERIAL CULTURE/SMEAR, RESPIRATORY Routine 03/12/2018 17:37 EDT documented in this encounter Results * BACTERIAL CULTURE/SMEAR, RESPIRATORY (03/12/2018 17:37 EDT) GRAM STAIN - [facility] TWO SWABS RECEIVED FOR CULTURE AND GRAM STAIN 03/12/2018 18:31 EDT [facility] BACTERIA SEEN - [facility] NO 03/12/2018 18:31 EDT [facility] WBC RARE 03/12/2018 18:31 EDT [facility] USUAL SKIN ARNIE - [facility] USF 03/15/2018 11:30 EDT [facility] QUANT - [facility] BROTH ONLY 03/15/2018 11:30 T [facility] 03/12/2018 17:3 7 EDT 03/12/2018 17:37 EDT Ishmael Kilgore MD MICROBIOLOGY - GENERAL ORDERABLES [facility] documented in this encounter Visit Diagnoses Not on filedocumented in this encounter Care Teams Edge Stainer Machine Relationship Specialty Start Date End Date Kit Burch MD [address] [place] [address] PCP - General 01/15/18 10/29/23 documented as of this encounter
--- OUTSIDE RECORDS SUMMARY | 2024-03-03 01:19 | XMS_ITS | Encounter Summary ---
Author Organization [facility] Address [address] [place] [address] Care Team Providers Care Measurement Advisor Name Role Phone Bianca Prescott [facility] Primary Care Provider [phone] Reason for Visit * Reason Comments New Patient Visit Skin lesion, recheck spot on nose, few spots on face, spots on arms. Encounter Details Date Type Department Care Team (Late st Contact Info) Description 03/02/2024 13:40 EDT Office Visit [facility] Dermatology [address] [place] [address] Cynthia Salinas MD [address] [facility], [facility] [address] [place] [address] History of basal cell carcinoma (Primary Dx); Scar; Solar purpura (HCC-CMS); Neoplasm of uncertain behavior of skin; Intertrigo; Actinic keratosis; Multiple nevi Social History Tobacco Use Types Packs/Day Years [...] No 04/14/2018 documented as of this encounter Patient Instructions * Patient Instructions* Cynthia Salinas MD - 03/02/2024 13:40 EDT WOUND CARE INSTRUCTIONS FOR SHAVE/PUNCH SKIN BIOPSY The DRESSING/BAND-AID should remain in place for 24 hours. You may shower or bathe after 24 hours; remove the bandage and replace it after the shower. Continue to keep the biopsy site covered with Vaseline and a Band-Aid/bandage for 1 week after the biopsy and change daily. WOUND CARE: Wash hands with soap and water before changing the dressing. Clean the wound daily with mild soap and water. You may gently loosen any crusts with a cotton swab. The wound may be slightly tender and may bleed a small amount. A small amount of discharge is normal. Apply a thin layer of sterile petroleum jelly over the wound. Cover the wound with a Telfa (non-stick) dressing or bandage. It is important to keep the wound covered. Change the dressing daily and when it becomes wet. Do not clean your open wound with hydrogen peroxide or apply an antibiotic ointment unless prescribed by your provider. Using these can be more harmful and damaging to the healing skin. Many people are allergic to the topical antibiotics over the counter and this results in a rash occurring around the biopsy site. DISCOMFORT: Expect some discomfort. Tylenol, taken as directed by the machine greaser, will help relieve pain. If Tylenol does not provide sufficient relief, you may also take Ibuprofen alternating every four hours with the Tylenol. If the pain is severe and not relieved by the above measures, please c all the office. BLEEDING: You may notice some blood on the edges of the dressing the first day and this is normal. If the bleeding soaks through the dressing, remove the dressing, and apply firm, steady pressure with a moist clean wash cloth for twenty minutes. If the bleeding stops, redress the wound, if not, call our office at . ACTIVITY: You may resume normal activity in 1 day unless instructed otherwise. LEG BIOPSIES: If your biopsy was on the leg, expect the healing process to take weeks-months. You will need to keep it covered for at least 2 weeks. It is normal and expected that leg wounds/biopsies take what seems like forever to heal. Healing can also take longer in patients who have swollen legs or peripheral vascular disease. Make sure the biopsy site is the last area you wash in the shower (or re wash it when you get out) to ensure that bacteria from your body does not run into your wound and result inan infection. If you had stitches placed (usually after having a punch biopsy) you will need to have these removed by our nursing staff, in 7 days, unless otherwise instructed. CONTACT THE OFFICE or IF YOU EXPERIENCE: increased redness warmth to touch increased pain drainage with a foul odor rapid swelling of the wound fever or chills To our patients in dermatology: The recently passed Cures Act requires that all lab and biopsy results are available to you online when they are processed (the same time they are released to your provider). If you choose to look at your results in [employer] prior to our office contacting you, that is your right and choice. Our office policy is to have your provider or the provider???s kindergarten instructional assistant contact you with your results and any treatment plan, in a timely manner. In some cases, biopsy and/or lab results can be upsetting, and we prefer to give you the results ourselves once we have reviewed them and have formulated a plan. If you opt to read your results online before we are able to contact you, please do not call the office or send a [employer] message asking to discuss them. Providers are seeing patients during the day and cannot answer calls during clinic time or off hours/weekends. Unless it is an emergency, the content management specialist provider will not review biopsy and/ or lab results. Thank you for entrusting us with your care. [facility]- Dermatology WOUND CARE INSTRUCTIONS FOR CRYOSURGERY (FREEZING THERAPY) Treatment with liquid nitrogen (cryosurgery) causes localized swelling, throbbing, and blister formation. Do not pop an intact blister. If the blisters open, apply Vaseline/petroleum jelly daily until the area heals. We do not recommend the use of triple antibiotic ointment or other ointments as they can cause allergic reactions and do not significantly reduce the incidence of infection, which is very rare to start with. . CONTACT THE OFFICE IF YOU EXPERIENCE: increasing redness warmth to touch increasing pain drainage with a foul odor rapid swelling of the wound fever or chills It was a pleasure taking care of you today. Please call our office if you have any concerns or questions. documented in this encounter Ordered Prescriptions Prescription Sig Dispensed Refills Start Date End Da te ketoconazole (NIZORAL) 2 % cream Apply topically to affected area daily. For rash under the folds 60 g 11 03/02/2024 documented in this encounter Progress Notes * Cynthia Salinas MD - 03/02/2024 1340 EDT Images from the original note were not included. Dermatology Outpatient Visit Note Chief Complaint Patient presents with New Patient Visit Skin lesion, recheck spot on nose, few spots on face, spots on arms. Dermatologic History: BCC Left nasal tip s/p Mohs 12/2019 Last Dermatology Clinic Visit: NPV SUBJECTIVE: Liya Anders is a 78 y.o. female who presents for FBSE for hx of skin cancer. Has purples spots on the arms. Has a spot on the right jain and some on the left jain/forehead. OBJECTIVE: Cutaneous full body examination excluding genitalia was performed. -Face, trunk and extremities with multiple scattered flesh colored and brown, symmetric macules andpapules with regular margins. -Right lateral forehead broad pink telangiectatic low plaque with hemorrhagic crust -Well healed surgical scar on the left nasal tip -nasal dorsum gritty pink based scaly plaque -infraabdominal folds light pink thinly macerated plaque -Scattered on the forearms there are purple and red purpura ASSESSMENT & PLAN: History of basal cell carcinoma and scar(s) -No clinical evidence of recurrence. Solar purpura (HCC-CMS) -due to aging, sun and exacerbated by ASA 81 and sertraline Neoplasm of uncertain behavior - right lateral forehead -Differential diagnosis discussed: suspect basal cell carcinoma -Recommend biopsy for definitive diagnosis today -Shave biopsy performed, pt tolerated this well -Wound care instructions were provided Intertrigo -chronic intermittent course discussed - ketoconazole (NIZORAL) 2 % cream; Apply topically to affected area daily. For rash under the folds Dispense: 60 g; Refill: 11 Actinic keratoses - x1: -Diagnosis and treatment options discussed -Recommend treating based on the evolution to squamous cell carcinomas -Opted for cryotherapy today, pt tolerated this well -Wound care instructions were given Nevi, particularly intradermal nevi of the face -benign appearing on exam today PROCEDURE: Cryotherapy procedure note A total of 1 pre-malignant lesions at the following sites were destroyed with liquid nitrogen cryotherapy: nasal tip. The patient has previously had cryotherapy. The risk/benefits of this procedure have been relayed and verbal consent was obtained prior to the procedure. Wound care instructions were provided. The attending physician personally performed the procedure. SKIN BIOPSY PROCEDURE NOTE PATIENT: Liya Anders : MRN: [id number] SURGEON: Cynthia Salinas MD Informed consent was obtained in writing. INDICATION: Diagnostic biopsy PREP: Alcohol ANESTHESIA: 1% lidocaine with epinephrine 1:100,000 local infiltration 0.4ccs PERFORMED BY: The attending physician personally performed the procedure. Specimen Procedure: shave biopsy Location: right lateral forehead Description: pink telangiectatic and hemorrhagic crusted low plaque suspect bcc The lesions were prepped as above and locally anesthetized. The specimens were removed by tangential shave using a Dermablade??. Hemostasis was achieved with pressure and/or aluminum chloride. The wounds were cleansed and a sterile dressing was applied over Petrolatum ointment. Wound care instructions were provided. The specimens were submitted to pathology for histological evaluation. FOLLOW UP: Return in about 1 year (around 03/02/2025) for history of skin cancer. Cynthia Salinas MD 03/02/2024 14:04 documented in this encounter Plan of Treatment Upcoming Encounters Date Type Department Care Team (Late st Contact Info) Description 03/08/2025 11:00 EDT Office Visit [facility] Dermatology [address] [place] [address] Cynthia Salinas MD [address] [facility], [facility] [address] [place] [phone] Pending Results Name Type Priority Associated Diagnoses Date /Time DERMATOLOGY SURGICAL PATHOLOGY Pathology Routine Neoplasm of uncertain behavior of skin 03/02/2024 13:58 EDT documented as of this encounter Visit Diagnoses Diagnosis History of basal cell carcinoma- Primary Personal history of other malignant neoplasm of skin Scar Scar condition and fibrosis of skin Solar purpura (HCC-CMS) Other nonthrombocytopenic purpuras Neoplasm of uncertain behavior of skin Intertrigo Other specified erythematous condition Actinic keratosis Multiple nevi Benign neoplasm of skin, site unspecified documented in this encounter Care Teams Measurement Advisor Relationship Specialty Start Date End Date [facility] [address] [place] [address] PCP - General 10/30/23 documented as of this encounter
--- OUTSIDE RECORDS SUMMARY | 2024-03-03 01:19 | XMS_ITS | Continuity of Care Document ---
Author Organization [place] - [facility], [facility] Address [address] [place] [address] Care Team Providers Care Director Of Home Economics Name Role Phone JACQUELINE ROCKWELL Learning Engineer [facility] Gastroenterologi st [facility] Work Program Director [facility] Orthopedist [facility] Sc princess ROSETTE PALOMINO Physical Therapist ALYSSA MONTEZ Sleep Medicine VIJI STEWART Learning Engineer Assessment Encounter Date Assessment Date Assessment LastModified by Organization Details LastModified Time 12/09/2023 12/09/2023 Patient presente d to office [...] and ACIP guidelines Not available 12/09/2023 13:40:14 Plan of Treatment Reminders Order Date Submit Date Provider Last Modified By Organization Details Last Modified Time Details Appointments Follow Up 30 2023 10:20A M SACHIN JAMES Not available Not available Not available Lab fecal occult blood, immunoass ay, stool 2023 024 [email or web address] [facility] (Registration ), [address] [place] [address] [place], [address], 01/25/2024 12:40:36 noninvasi ve colorecta l cancer DNA + occult blood screening , QL, stool 2023 024 [facility] (Cologuard Orders Only), [address], [address], [place], [address], 12/28/2023 13:52:20 Referral podiatris t referral 2023 024 [email or web address] [facility], [address] [place] [address] [place], [address], 01/25/2024 12:40:55 Procedures None recorded. Surgeries None recorded. Imaging MAMMO, screening , digital, bilateral 2023 024 [facility] (Radiology), [address] [place] [address] [place], [address], 01/22/2024 14:44:17 DEXA - unable to locate any previous scan, pt does not recall every having a scan 2023 024 [email or web address] [facility] (Radiology), [address] [place] [address] [place], [address], 01/22/2024 14:43:07 Medication Orders None recorded. Patient TargetsNo targets recorded. Patient Instructions Encounter Date Encounter Id Patient Instructions Last Modified By Organization Details Last Modified Time 12/09/2023 [id number] Discussed and explained advance directives such as standard forms to the {{patient caregiv er patient and caregiver}}. Face to face discussion lasted for a duration of ___ minutes. Not available 12/09/2023 13:40:14 Reason for Referral Group Work Program Director Referral for N eoplasm of uncertain behavior of skin hx BCC nose, eval new telangiectasias on nose, + full skin exam pls Referring Physician: Qing Baird [facility], Encounter Date: 11/16/2023 Software Applications Architect Referral for Foot pain Referring Physician: Sachin Ramirez [facility], Encounter Date: 12/09/2023 Physical Therapist Referral for Low back pain lower right back pain x 2-3 weeks, recommend stretching regimen. Also, c/o chronic left ankle weakness. Please assess both concerns Referring Physician: Sachin Ramirez [facility], Encounter Date: 01/05/2024 Results Created Date Observation Date Name Description Value Unit Range Abnormal Flag LastModifiedBy Organization Detail LastModifiedTime 11/16/19 24 11/16/2023 XR, chest , 2 view Sarahy caro Name: Liya Anders Unit #: [id number] Loc: DI Orderi ng Provid er: Qing Baird Accoun t #: [id number] Status : REG CLI Primar y Care Provid er: Reddy Lee ail Date of Exam: Sex: F Admiss [...] latera l views were obtain ed. COMPAR AJIT: No exams were availa ble for compar ajit FINDIN GS: MEDIAS TINUM: Normal . HEART: [...] in place. OTHER FINDIN GS:Nor mal. IMPRES NICOLA: No focal infilt rates. DATA REPOSI TORY: RADIAT ION DOSE DELIVE RED: Ordere d By: Qing Baird CC: ------ ------ ------ ------ ------ ------ ------ ------ ------ ------ ------ ------ - Dictat ed By: Nicholas Medrano M.D. 1332 1331 Transc ribed By: Nicholas Medrano 1331 This is privil eged, confid ential inform ation intend ed only for the provid er named. Any use or distri bution by any person other than this provid er is strict ly prohib ited. If you receiv e this report in error, please notify us immedi ately at and return the origin al report to us at the addres s above. Thank- you. [email or web address] [facility] [address], [place], [address] 11/17/2023 17:01:56 12/17/19 24 12/17/2023 DEXA Sarahy gordo Name: Liya Anders Unit #: [id number] Loc: DI Orderi ng Provid er: Reddy Lee Accoun t #: [id number] Status : REG CLI Primar y Care Provid er: Reddy Lee Date of Exam: Sex: F Admiss ion Date: : 1945 Age: 78 Exam(s ) XR DEXA BONE DENSIT Y W/WO DAVID EXAM: XR DEXA BONE DENSIT Y W/WO DAVID CLINIC AL HISTOR Y: Z78.0 Asympt zack patricio [place] TECHNI QUE: Hologi c Horizo n [...] ------ - Dictat ed By: Betzaida Gibbons [id number] Transc ribed By: Perez Galvin 1729 This [...] at the addres s above. Thank- you. [facility] [address] , [place], [address] 01/22/2024 14:43:06 01/01/20 24 01/01/2024 MAMMO , scree lucho, digit al, bilat eral Sarahy t Name: Liya Anders Unit #: [id number] Loc: DI Orderi ng Provid er: Reddy Lee Accoun t #: [id number] Status : REG CLI Primar y Care Provid er: Reddy Lee Date of Exam: 02/16 Sex: F Admiss [...] report s averag e 6 to 10%. Patikenya t will receiv e a letter notify ing them of these result s. Ordere d By: Reddy Lee CC: ------ ------ ------ ------ ------ ------ ------ ------ ------ ------ ------ ------ - Dictat ed By: Nicholas Medrano M.D. 1516 151 Transc ribed By: Nicholas Medrano 1516 This [...] at the addres s above. Thank- you. [facility] [address], [place], [address] 01/22/2024 14:44:16 01/05/20 24 01/05/2024 MAMMO , scree lucho, unila teral Sarahy t Name: Liya Anders Unit #: [id number] Loc: DI Orderi ng Provid er: Reddy Lee Accoun t #: [id number] Status : REG CLI Primar [...] Dictat ed By: Nicholas Medrano M.D. 1455 145 Transc ribed By: Nicholas Medrano 1455 This is privil eged, confid ential inform ation intend ed only for the provid er named. Any use or distri bution by any person other than this provid er is strict ly prohib ited. If you receiv e this report in error, please notify us immedi luz marinaly at [phone] and return the origin al report to us at the addres s above. Thank- you. [email or web address] [facility] [address] [place], [address] 02/02/2024 15:43:58 01/05/20 24 01/05/2024 US, breas t, unila teral , limit ed Patien t Name: Liya Anders Unit #: [id number] Loc: DI Orderi ng Provid er: Reddy Lee Accoun t #: [id number] Status : REG CLI Primar [...] Aided Diagno sis follow ed by Tomosy nthumbertoi s and left breast ultras ound. COMPAR AJIT: Compar ajit is made with prior examin ations . FINDIN GS: Mammog ely/ Tomosy ntartemio s: Masses /Archi tectur al Distor tion: [...] this report in error, please notify us immedelli morgan at and return the origin al report to us at the addres s above. Thank- you. [email or web address] [facility] [address] [place], [address] 02/02/2024 15:45:20 Result Notes None recorded. Problems Name Status Onset Date Resolution Date Notes Provider Name and Address Organization Details Recorded Time Hyperlipidemia Active 2022 PERI DELEON LPN null, [facility] 3 10:52:44 Hypothyroidism Active 2022 PERI DELEON LPN null, [facility]. 3 10:52:49 Essential hypertension Active 2022 PERI DELEON LPN null, [facility] 3 10:48:19 Chronic diastolic heart failure Active 2022 PERI DELEON LPN null, [facility] 3 10:52:40 Arteriosclerot ic vascular disease Active 2022 PERI DELEON DECAL APPLIER null, [facility] 3 10:52:30 Right flank pain Active 2022 Alicjaher Valdez null, [facility] 4 12:10:01 Pain in right foot Active 2022 Alicja Valdez null, [facility] 4 12:09:49 Obesity Active 2023 Alicjaher Valdez null, [facility] 4 12:09:38 Depressive disorder Active 2023 Alicjaher Valdez null, [facility] 4 12:09:25 Nontraumatic rotator cuff tear Completed 202308/20/2023 EM BAUER MA null, [facility] 4 13:30:11 Nontraumatic rotator cuff tear Active 2023 EM BAUER MA null, [facility], [facility]. 4 13:30:11 Polyneuropathy Active 2023 peripheral Alicja Seibnavneet null, [facility]. 4 12:09:51 Thoracic outlet syndrome Active 2023 Alicja Seibold null, [facility]. 4 12:09:55 History of malignant neoplasm of skin Active 2023 Alicja Seibold null, [facility]. 4 12:09:33 Obstructive sleep apnea syndrome Active 2023 Alicja Seibold null, [facility]. 4 12:09:41 Dyspnea Active 2023 Alicja Seibnavneet [facility], [facility]. 4 12:09:30 Bilateral cramp of muscle of lower limbs Active 2023 Alicja Seibold null, [facility]. 4 12:09:23 Osteoarthritis Active 2023 Alicja Seibold [facility], [facility]. 4 12:09:43 Endometrial carcinoma Completed 202308/20/2023 EM BAUER MA null, [facility]. 4 13:39:54 Diastolic heart failure Active 2023 Alicja Seibnavneet null, [facility]. 4 12:09:27 Basal cell carcinoma of skin Active 2023 Alicja Seibold null, [facility]. 4 12:09:20 Neoplasm of uncertain behavior of skin Active [address], [place], [address], [facility]. 4 10:23:42 Fatigue Active [address], [facility] [address], [facility] 4 11:38:20 Chronic cough Active [address], [facility] [address], [facility] 4 11:38:20 Aortic valve disorder Active 2023 TOÑA HUBER MA null, [facility] 4 14:31:00 Subclinical hyperthyroidis m Active 2023 Deneen Fuentes RN null, [facility] 4 10:27:29 Foot pain Active [address], [facility] [address], [facility] 4 13:30:03 Low back pain Active [address], [facility] [address], [facility] 4 11:54:46 Ankle pain Active [address], [facility] [address], [facility] 4 11:55:12 Mammography abnormal Active [address], [facility] [address], [facility] 4 11:57:09 Problem Notes None recorded. Procedures Surgical History Date Name Laterality Status Provider Name and Address Organization Details Recorded Time 06/27/20 22 endoscopic calcaneoplasty for Ora deformity completed JODI CUENCA, [facility] 08/20/2023 13:51:40 12/29/19 20 mohs surgery completed JODI CUENCA, [facility] 08/20/2023 14:03:48 02/23/20 18 Coronary artery bypass/reop completed JODI CUENCA, [facility] 08/20/2023 13:52:47 10/02/19 17 cataract surgery completed JODI CUENCA, [facility] 08/20/2023 14:02:07 09/17/19 17 Cataract Surgery completed JODI CUENCA, [facility] 08/20/2023 14:02:47 11/16/19 13 total knee replacement completed JODI CUENCA, [facility] 08/20/2023 13:45:27 03/15/20 12 [facility] 13:44:56 open reduction of fracture of tibia and fibula [facility]2023 13:47:29 procedure [facility] elbow [facility]2023 13:47:55 Appendectomy completed JODI CUENCA, [facility] 08/20/2023 13:51:52 [facility]23 13:52:06 Imaging Results None recorded. Procedure Notes None recorded. Medical Equipment None Reported. Allergies Allergen ID Allergen Name Allergen Category Reaction Reaction Severity Criticality Documentation Date Start Date Code Code System Note Provider Name and Address Organization Details Recorded Time 86407 morphine medicatio n hallucina tions Not available Not available 08/20/2023 7052 RxNorm JODI VIRGEN, [facility] 12:21:43 Medications Name Sig Start Date Stop [...] Not Available Vitals Date Recorded Body height Oxygen saturation Oxygen saturation in Arterial blood by Pulse oximetry Heart rate Body mass index (BMI) Body weight Body temperature Systolic blood pressure Diastolic blood pressure Provider Name and Address Organization Details Last Updated DateTime 4 144.14 cm 96 % 96 % 65 /min 34.3 kg/m2 87182 g 97.3 [degF] 118 mm[Hg] 58 mm[Hg] JASON KHANNA RN [facility] 4 13:04:32 Social History Question Answer Notes LastModified by Organizat ion Details LastModified Time Tobacco Smoking Status Former Smoker 18 when she quit smoking JODI CUENCA, [facility] 08/18/2023 10:42:09 Do You Have An Advance Directive? No Paperwork Given Information not available 12/09/2023 When Did You Quit Smoking? 16+yearssince lastcigarette Information not available 08/18/2023 Date Of Most Recent HSA 12/09/2023 Information not available 12/09/2023 Would You Say That, In General, Your Health Is Fair [email or web address] Information not available 08/18/2023 How Often Does Anyone, Including Family, Physically Hurt You? Never [email or web address] Information not available 08/18/2023 How Often Does Anyone, Including Family, Insult Or Talk Down To You? Never Information not available 08/18/2023 How Often Does Anyone, Including Family, Threaten You With Harm? Never [email or web address] Information not available 08/18/2023 How Often Does Anyone, Including Family, Scream Or Curse At You? Never [email or web address] Information not available 08/18/2023 Within The Past 12 Months, You Worried That Your Food Would Run Out Before You Got Money To Buy More. Sometimes True Information not available 12/09/2023 Within The Past 12 Months, The Food You Bought Just Didn't Last And You Didn't Have Money To Get More. Never True [email or web address] Information not available 08/18/2023 How Hard Is It For You To Pay For The Very Basics Like Food, Housing, Medical Care, And Heating? Would You Say It Is: Not Hard At All Information not available 12/09/2023 In The Past 12 Months, Has Lack Of Reliable Transportation Kept You From Medical Appointments, Meetings, Work Or From Getting Things Needed For Daily Living? No [email or web address] Information not available 08/18/2023 What Is Your Housing Situation Today? I Have Housing. [email or web address] Information not available 08/18/2023 How Often In The Past Year Have You Used Marijuana (including Smoking, Vaping, Dabbing, Or Edibles)? Never Information not available 08/18/2023 How Often In The Past Year Have You Used Prescription Medications That Were Not Prescribed To You? Never [email or web address] Information not available 08/18/2023 How Often In The Past Year Have You Taken Your Own Prescription Medication More Than The Way It Was Prescribed Or For Different Reasons Than Its Intended Purpose? Never [email or web address] Information not available 08/18/2023 How Often In The Past Year Have You Used Other Drugs (for Example, Heroin, Cocaine, Meth, Salvia, Inhalants)? Never Information not available 08/18/2023 What Matters Most To You? to Be Safe And Healthy, See And Walk Information not available 12/09/2023 During The Past Four Weeks, Was Someone Available To Help You If You Needed And Wanted Help? (For Example, If You [employer] Very Nervous, Lonely, Or Blue; Got Sick [...] Safety Concerns In Your Home (see Attached [facility] Pamphlet)? No Information not available 12/09/2023 How [...] Do You Have A Medical Power Of Inspecting Engineer? No Information not available 12/09/2023 What Was The Date Of Your Most Recent Tobacco Screening? 12/09/2023 Information not available 12/09/2023 At What Age Did You Start Smoking Tobacco? 16 [email or web address] Information not available 08/18/2023 Has Tobacco Cessation [...] 08/18/2023 completed JACQUELIN QUISPE [address], [place], [address], [facility] 08/18/2023 22:14:59 SARS-COV-2 (COVID-19) vaccine, UNSPECIFIED 05/08/2023 completed EM BAUER MA [facility], [facility] 08/20/2023 12:15:28 SARS-COV-2 (COVID-19) vaccine, UNSPECIFIED 08/15/2020 completed JODI CUENCA, [facility] 08/20/2023 12:15:34 SARS-COV-2 (COVID-19) vaccine, UNSPECIFIED 09/14/2020 completed JODI CUENCA, [facility] 08/20/2023 12:15:49 SARS-COV-2 (COVID-19) vaccine, UNSPECIFIED 05/30/2021 completed JODI CUENCA, [facility] 08/20/2023 12:15:55 SARS-COV-2 (COVID-19) vaccine, UNSPECIFIED 05/10/2022 completed JODI CUENCA, [facility] 08/20/2023 12:16:04 Pneumococcal conjugate PCV 13 01/04/2015 completed JODI CUENCA, [facility] 08/20/2023 12:16:40 influenza, unspecified formulation 03/29/2020 completed JODI CUENCA, [facility] 08/20/2023 12:17:06 influenza, unspecified formulation 04/24/2021 completed JODI CUENCA, [facility] 08/20/2023 12:17:14 influenza, unspecified formulation 05/10/2022 completed JODI CUENCA, [facility] 08/20/2023 12:17:20 influenza, unspecified formulation 05/08/2023 completed JODI CUENCA, [facility] 08/20/2023 12:17:30 pneumococcal polysaccharide PPV23 03/02/2012 completed JODI CUENCA, [facility] 08/20/2023 12:18:00 pneumococcal polysaccharide PPV23 03/04/2019 completed JODI CUENCA, [facility] 08/20/2023 12:18:09 Tdap 03/02/2012 completed JODI CUENCA, [facility] 08/20/2023 12:18:41 zoster, unspecified formulation 09/01/2018 completed JODI CUENCA, [facility] 08/20/2023 12:18:59 zoster, unspecified formulation 03/04/2019 completed JODI CUENCA [facility] 08/20/2023 12:19:04 zoster, unspecified formulation 04/09/2012 completed JODI CUENCA, [facility] 08/20/2023 12:19:11 Past Encounters Encounter ID Performer Location Encounter Start Date Encounter Closed Date Diagnosis/Indication Diagnosis SNOMED-CT Code [id number] [address] [address] [address] 11/16/2023 09:16:49 11/16/2023 09:52:12 Fatigue 67359479 Chronic cough 17176069 Neoplasm o f uncertain behavior of skin 07367675 Obesity 338397349 Obstructiv e sleep apnea syndrome 82269899 [id number] SACHIN JAMES, [address] [address] 12/09/2023 12:38:05 12/09/2023 13:45:09 Adult health examination 893120679 Foot pain 07766894 Screening for malignant neoplasm of colon 992814327 Screening mammography 24 869382 Screening for osteoporosis 442023207 Health Concerns Section Related Observation LastModified by Organization Detai ls LastModified Time None Recorded Concern Status LastModified by Organization Details LastModified Time None Recorded Payers Encounter Date Sequence Insurance Name Policy Number Policy Kearns Covered Member ID Kearns Member ID Guarantor Name 12/09/2023 1 [id number]/A [place]ANTAGE - PPO) [id number] Liya Anders [id number] Liya Anders Notes Date Note Type Note Provider Name and Address Organization Details Recorded Time 12/09/2023 text/html HPI Notes: Medic are Annual [...] presents today for annual Medicare Wellness exam SACHIN RAMIREZ, JACQUELIN [address], [place], [address], [facility]. 12/09/2023 15:21:44 OBGyn Episode No OBEpisode recorded.
--- OUTSIDE RECORDS SUMMARY | 2024-03-03 01:19 | XMS_ITS | Encounter Summary ---
Author Organization [facility] Address [address] [place] [address] Care Team Providers Care Mobile Security Specialist Name Role Phone Bianca [facility] Primary Care Provider [phone] Reason for Visit * Reason Comments Cough Nasal Congestion Chest Congestion Encounter Details Date Type Department Care Team (Late st Contact Info) Description 10/30/2023 13:45 EDT [facility] [address] [place] [address] [id number] Rhonda Fields PA-C [address] [facility] [address] [place], [place] [address] URI with cough and congestion (Primary Dx) Social History Tobacco Use Types [...] EDT Inhaled Oxygen Concentration - - Weight - - Height - - Body Mass Index - - documented in this encounter Functional Status Functional [...] this encounter Patient Instructions * Patient Instructions* Rhonda Fields PA-C - 10/30/2023 13:45 EDT Liya - You were seen today for nasal and chest congestion x a few weeks. On exam your vital signs are reassuring. Mild low oxygen only. Xray was done as lungs are very noisy. I do feel there is mild appearance here of a pneumonia and would like to treat with antibiotics. I have sent doxycycline and augmentin to the pharmacy for you. It is fine to continue with the guaifenesin. Please discontinue Benadryl. It safer for you to use Claritin or Zyrtec if you do have underlying allergies, 10 mg, either 1 of these once a day. Please rest extra, sleep with head of bed elevated is much as you can for better breathing at nightand less coughing. Have a follow-up please with your primary care office and 1 to 2 weeks to be sure that things are improving. If anything is not improving despite this plan of care then please have a recheck here or with the ER. [facility] Common Cold Instructions You can try to boost your immune system by: -Avoiding a high sugar diet. Refined sugar will lower your immune response -Eating fresh citrus fruits, such as orange. The fresher it is, the more potent -Vitamin C 2000 mg three times daily (example: Emergen-C powder packet in water) -Some studies suggest that zinc can reduce cold symptoms by a day or two (example: Zycam), but can cause some side effects -Chicken soup or veggie broth is very nutritious and has been shown to help! -For flulike symptoms, elderberry dissolvable tablets (found at most drug stores) or tincture (found at the health food stores) has shown promising results in studies for flu prevention and treatment For nasal congestion relief you can try: -Nasal saline rinses or lavage (example: Netipot, Neilmed, [place]) -Air humidifier, steamy shower, warm compress to your sinuses -Rubbing a small amount of peppermint oil on your cheeks and forehead. Avoid contact with your eyes. This will encourage drainage (like eating horseradish or wasabi). This can be found as a tincture in health foods stores For sore throat: -Gargle with salt water (1 tsp in a full cup of warm warm) -Throat lozenges such as Cepacol can be numbing and soothing -Sabra in broth/soup is known to ease swollen throats. A sabra-tumeric tea is especially potent -Warm water or herbal tea (with or without 1 tbsp of apple cider vinegar and 1 tbsp of honey) 4-6 times a day For cough: -Gargle with salt water -Apply vapor rub with menthol, eucalyptus, and camphor (example: Vicks VapoRub) to the neck -Honey and lemon in tea soothing to coughs -When appropriate, use a humidifier or steam from a shower For body aches or fever: -Rest -Acetaminophen and Ibuprofen are both fever- and pain-reducers For ear ache: -The more you swallow, the better the ears will drain -Salt water gargling -Warm compresses over the ear and sinuses -Steaming with eucalyptus, camphor, or thyme in simmering water. FLUIDS! FLUIDS! FLUIDS! (Water, broth, herbal tea). This thins out mucous and helps things drain. Return if symptoms worsen or fail to improve with supportive measures, or symptoms are lasting longer than 10-14 days. documented in this encounter Ordered Prescriptions Prescription Sig Dispensed Refills Start Date End Da te cefpodoxime (VANTIN) 200 mg tabletIndications:URI with cough and congestion Take 1 Tablet by mouth 2 times daily for 5 days. 10 Tablet 10/30/2023 11/04/2023 doxycycline (MONODOX) 100 mg capsuleIndications:URI with cough and congestion Take 1 Capsule by mouth 2 times daily for 5 days. 10 Capsule 10/30/2023 10/30/2023 amoxicillin-clavulanate (AUGMENTIN) 875-125 mg per tabletIndications:URI with cough and congestion Take 1 Tablet by mouth 2 times daily for 5 days. 10 Tablet 10/30/2023 10/30/2023 documented in this encounter Progress Notes * Lona Coughlin LPN - 10/30/2023 1345 EDT CC/HPI: daughter reports pt here for sinus and chest congestion x a month. Just returned from [place]. Coughing up yellowish green mucous. Covid Screening: In the last 72 hours, has the patient had: New or unusual cough, shortness of breath, new nasal congestion, sore throat, fever, chills, body aches, or new loss of taste or smell without a reasonable alternative diagnosis*? (If yes, assign to ARC)- cough,nasal congestion,scratchy throat In the past 10 days, has the patient had a positive Covid test OR a confirmed close Covid exposure (<6ft for > 15mins in 24hr period)? (if yes, assign to ARC, regardless of vaccination status)-no *may be determined by RN or in discussion with available provider (GOOD HUMOR VENDOR's and CCA's can defer to Charge Nurse to complete triage when appropriate) PCP: [facility] * Rhonda Fields PA-C - 10/30/2023 1344 EDT [facility] Chief Complaint(s): Chief Complaint Patient presents with Cough Nasal Congestion Chest Congestion Assessment & Plan: Liya was seen today for cough, nasal congestion and chest congestion. Diagnoses and all orders for this visit: URI with cough and congestion - XR CHEST 2 VIEWS - Discontinue: amoxicillin-clavulanate (AUGMENTIN) 875-125 mg per tablet; Take 1 Tablet by mouth 2 times daily for 5 days. - Discontinue: doxycycline (MONODOX) 100 mg capsule; Take 1 Capsule by mouth 2 times daily for 5 days. - cefpodoxime (VANTIN) 200 mg tablet; Take 1 Tablet by mouth 2 times daily for 5 days. Liya Anders is a pleasant 77 y.o. yr old female seen today for nasal and chest congestion and cough for 3 to 4 weeks. Vitals here normal with mild low oxygen only which compared to previous visits is not grossly worsethan baseline. On exam very congested, nasal and chest. CXR suggestive of copd per radiology no acute infectious process. Mild cardiomegaly. Initial rx was for CAP, will cover for copd exacerbation in place with cephalosporin. She will continue OTC medications. Elevation was sleeping. Recheck ER if any worsening over the weekend. Has f/u PCP Thursday. An appropriate medical screening examination was performed. The patient was assessed prior to discharge and deemed stable for discharge home. I printed material and reviewed home management and follow up in detail with patient, see patient instructions below. Patient is advised in use of [employer] to access any lab results or other pertinentvisit information. All questions are answered. Patient is advised to follow up for urgent reassessment for any new/worsening signs and symptoms here at [facility] or ED. Otherwise, follow up with PCP/or if no PCP at [facility]/ER for symptoms that persist past current course of treatment or expected resolution as discussed. Patient verbalizesunderstanding and agreement with this plan of care. HPI: Patient and daughter both here for sinus and chest congestion x a month. Coughing up yellowish-green mucus. Very gurgly breathing when laying down. Denies chest pain or shortness of breath, has not had any fever sweats chills. She denies any lower extremity swelling. Onset symptoms while in [place], just spent a 1 month vacation there. Thought initially might have been allergies or issue with air conditioning. Both she and her daughter have allergies. Pollen has been very bad in [place] other daughter that is with family states. They just returned from there via car. 2nd dtr accompanying has similar s/s but milder. ROS: See HPI for details Objective: Vitals and nursing notes reviewed Examination: BP 131/60 (BP Cuff Location: Right arm, BP Patient Position: Sitting, BP Cuff Sizes: Adult, large) Pulse 66 Temp 36.6 ??C (97.9 ??F) (Oral) Resp 24 SpO2 96% Physical Exam Constitutional: Comments: Fatigued appearing elderly female, otherwise in no acute distress, nontoxic in appearance HENT: Right Ear: Tympanic membrane normal. Left Ear: Tympanic membrane normal. Nose: Congestion present. Mouth/Throat: Mouth: Mucous membranes are moist. Pharynx: Oropharynx is clear. Comments: Posterior, cobblestone erythema present Eyes: Comments: Palpebral margins are mildly injected, there is scant yellowish discharge present; bulbarconjunctiva are normal Cardiovascular: Rate and Rhythm: Normal rate and regular rhythm. Heart sounds: No murmur heard. Pulmonary: Comments: Unlabored; speaking comfortably; on auscultation diffusely rhonchorous lung sounds, lowerlobe some mild crackles appreciated; most clear with cough which is quite productive Musculoskeletal: Cervical back: Normal range of motion and neck supple. Right lower leg: No edema. Left lower leg: No edema. Lymphadenopathy: Cervical: No cervical adenopathy. Skin: General: Skin is warm. Findings: No rash. Neurological: Mental Status: She is oriented to person, place, and time. I independently interpreted any xray imaging done here today and reviewed radiology report. By my interpretation possible bilateral hazy opacity. Data reviewed with patient (past results): PMHx/Allergies/DI/pertinent recent Labs/OV's This note may be in part documented using [employer] dictation software. Please forgive any errors, omissions or typos that may result from use of dictation. documented in this encounter Plan of Treatment Upcoming Encounters Date Type Department Care Team (Late st Contact Info) Description 03/08/2025 11:00 EDT Office Visit [facility] Dermatology [address] [place] [address] Cynthia Salinas MD [address] [place] [address] [address] [place] [address] documented as of this encounter Procedures Procedure Name Priority Date/Time Associated Diagnosis Comments XR CHEST 2 VIEWS STAT 10/30/2023 15:3 4 EDT URI with cough and congestion documented in this encounter Results * XR CHEST 2 VIEWS (10/30/2023 15:34 EDT) Anatomical Region Laterality Modality Computed Radiogr aphy 10/30/2023 15:4 5 EDT Impressions 10/30/2023 15:45 EDT 1. No lobar pneumonia detected. 2. Hyperinflation suggestive of COPD. 3. Cardiac enlargement. [id number] Narrative 10/30/2023 15:45 EDT XR CHEST 2 VIEWS ??10/30/2023 3:16 PM Clinical History/comments: cough sob abnormal lung sounds x 3 weeks;J06.9:URI with cough and congestion Comparison: 02/25/2018.. Technique: Frontal and lateral views of the chest. Findings: Lungs: The patient is hyperinflated. Pleura/diaphragms: Normal. Cardiac and mediastinal contours: The heart is enlarged. There are sternotomy wires and the patient is status post TAVR. Soft tissues and extrathoracic findings: ??Normal. Bones: Normal. Procedure Note Jose A Bautista MD - 10/30/2023 XR CHEST 2 VIEWS 10/30/2023 3:16 PM Clinical History/comments: cough sob abnormal lung sounds x 3 weeks;J06.9:URI with cough andcongestion Comparison: 02/25/2018.. Technique: Frontal and lateral views of the chest. Findings: Lungs: The patient is hyperinflated. Pleura/diaphragms: Normal. Cardiac and mediastinal contours: The heart is enlarged. There aresternotomy wires and the patient is status post TAVR. Soft tissues and extrathoracic findings: Normal. Bones: Normal. IMPRESSION 1. No lobar pneumonia detected. 2. Hyperinflation suggestive of COPD. 3. Cardiac enlargement. [id number] Rhonda Fields PA-C IMG DIAGNOSTIC I MAGING ORDERABLES documented in this encounter Visit Diagnoses Diagnosis URI with cough and congestion- Primary documented in this encounter Discontinued Medications Medication Sig Discontinue Reason Start Date End Da te Cinnamon Bark 500 mg capsule Take by mouth. Therapy completed 10/30/2023 Aloe Vera 25 mg capsule Take by mouth. Therapy completed 2023 coconut oil 1,000 mg capsule Take by mouth. Therapy completed 10/30/2023 cranberry fruit extract (CRANBERRY ORAL) Take by mouth. Therapy completed 10/30/2023 UNABLE TO FIND Med Name: CBD oil Therapy completed 10/30/2023 levothyroxine (SYNTHROID) 125 mcg tablet Take 1 Tablet by mouth daily. 10/30/2023 potassium chloride (KLOR-CON) 20 mEq packet Take 10 mEq by mouth 2 times daily. 10/30/2023 amoxicillin-clavulanate (AUGMENTIN) 875-125 mg per tabletIndications:URI with cough and congestion Take 1 Tablet by mouth 2 times daily for 5 days. Alternate therapy 10/30/2023 10/30/2023 doxycycline (MONODOX) 100 mg capsuleIndications:URI with cough and congestion Take 1 Capsule by mouth 2 times daily for 5 days. Alternate therapy 10/30/2023 10/30/2023 documented as of this encounter Historical Medications * This list may reflect changes made after this encounter. Medication Sig Dispensed Refills Start Date End Date diphenhydrAMINE (BENADRYL) 25 mg capsule Take 1 Capsule by mouth as needed. guaiFENesin (MUCINEX) 600 mg SR tablet Take 1 Tablet by mouth 2 times daily. potassium chloride (MICRO-K) 10 mEq capsule Take 1 Capsule by mouth 2 times daily. 08/21/2023 levothyroxine (SYNTHROID) 100 mcg tablet Take 1 Tablet by mouth daily. 09/13/2023 omeprazole (PRILOSEC) 40 mg capsule Take 1 Capsule by mouth every morning. 08/30/2023 lisinopriL (PRINIVIL) 20 mg tablet Take 1 Tablet by mouth daily. 08/30/2023 dilTIAZem (CARDIZEM) 30 mg tablet Take 1 Tablet by mouth every evening. 09/11/2023 chloroquine (ARALEN) 250 mg tablet Take 1 Tablet by mouth. 3 times a week 09/14/2023 added in this encounter Care Teams Mobile Security Specialist Relationship Specialty Start Date End Date [facility] [address] [place] [address] PCP - General 10/30/23 documented as of this encounter
--- OUTSIDE RECORDS SUMMARY | 2024-03-03 01:19 | XMS_ITS | Encounter Summary ---
Author Organization [facility] Address [address] [place] [address] Care Team Providers Care Radio Script Writer Name Role Phone Kit Burch MD Primary Care Provider [phone] Reason for Visit * Reason Onset Date Comments Follow-up 05/17/2018 Follow-up 05/24/2018 2nd attempt Encounter Details Date Type Department Care Team (Late st Contact Info) Description 05/17/2018 Telephone [facility] Cardiology - [address] [place] [address] Gilda Bowen, RN Follow-up; Follow-up (2nd attempt) Social History Tobacco Use Types Packs/Day Years [...] encounter Miscellaneous Notes * Telephone Encounter - Gilda Bowen RN - 05/25/2018 1602 EDT Called and spoke to patient. Patient taking lasix as ordered. Minimal SOB. States weight 172 # today Patient knows she is to f/u with Dr. De Dios in 2 months at [facility], she will call them for an appointment. * Telephone Encounter - Gilda Bowen RN - 05/24/2018 1033 EDT Lm 2nd attempt [facility], * Telephone Encounter - Gilda Bowen RN - 05/17/2018 0956 EDT Called and left message to return call Liya Anders [[id number]] ??Female - 72 y.o. - 47 ?? Liya Anders - 04/14/18 More Detail >> ?? Milagro Lozano NP ?? Sent: ThuMay 17, 2018 ??9:52 ?? To: Gilda Bowen RN ?? Message ?? Please ask pt if she has been weighing herself and monitoring her sodium intake. If she is SOB, I will consider increasing her lasix. I need to know if Dr. De Dios has been seeing and managing her otherwise I will adjust her medications. ?? Thank you, ?? Milagro ?? ----- Message ----- ? From: SYSTEM ? Sent: 05/14/2018 ?? 0:04 ? To: Milagro Lozano NP ? BASIC METABOLIC PANEL (BMP) Status: Active Visible to patient: No (Not Released) Next appt: None Dx: Coronary artery disease involving cor... Order: [id number] ? Order Details View Encounter Lab and Collection Details Routing Result History ?? documented in this encounter Plan of Treatment Upcoming Encounters Date Type Department Care Team (Late st Contact Info) Description 03/08/2025 11:00 EDT Office Visit [facility] Dermatology [address] [place] [address] Cynthia Salinas MD [address] [place] [address] [address] [place] [address] documented as of this encounter Visit Diagnoses Not on filedocumented in this encounter Care Teams Radio Script Writer Relationship Specialty Start Date End Date Kit Burch MD [address] [place] [address] [address] [place] [id number] PCP - General 01/15/18 10/29/23 documented as of this encounter
--- OUTSIDE RECORDS SUMMARY | 2024-03-03 01:19 | XMS_ITS | Encounter Summary ---
Author Organization [facility] Address [address] [place] [address] Care Team Providers Care Counseling Services Director Name Role Phone Kit Burch MD Primary Care Provider [phone] Reason for Visit * Reason Comments Basal Cell Carcinoma nose Encounter Details Date Type Department Care Team (Late st Contact Info) Description 12/29/2019 10:00 EDT Office Visit [facility] Dermatology 5th [address] [id number] Enzo Ervin MD [address] [place] [address], [address] [place] [phone] Basal cell carcinoma (BCC) of skin of nose (Primary Dx) Social History Tobacco Use Types Packs/Day Years Used Date Smoking Tobacco: Former Cigarettes 0 07/27/1961 - 07/27/1962 Smokeless Tobacco: Never Sex and Gender Information Value Date Recorded Sex Assigned at Not on file Gender Identity Female 11/09/2019 12:42 EDT Sexual Orientation Not on file documented as of this encounter Last Filed Vital Signs Vital Sign Reading Time Taken Comments Blood Pressure 126/72 12/29/2019 0935 EDT Pulse 67 12/29/2019 0935 EDT Temperature 20.9 ??C (69.6 ??F) 12/29/2019 0935 EDT Respiratory Rate - - Oxygen Saturation - - Inhaled Oxygen Concentration - - Weight - [...] this encounter Patient Instructions * Patient Instructions* Abigail Davey PA-C - 12/29/2019 10:00 EDT WOUND CARE INSTRUCTIONS FOR SKIN SURGERY The BANDAGE should remain in place for 24 hours. You may shower or bathe after 24 hours; remove thebandage and replace it after the shower (see wound care section below for instructions on how to dothis). DISCOMFORT: Expect some discomfort. Tylenol, taken as directed by the hollock maker, will help relieve pain. If Tylenol does not provide sufficient relief, you may also take Ibuprofen alternating every four hours with the Tylenol. If the pain is severe and not relieved by the above measures, please c all the office. BLEEDING: You may notice some blood on the edges of the dressing the first day - this is NORMAL. Ifthe bleeding soaks through the dressing, remove the dressing, and apply firm, steady pressure with a moist clean wash cloth for fifteen minutes. If the bleeding stops, redress the wound, if not, callour office at . ACTIVITY: Relax and limit your physical activity for the first 48 hours after surgery. Also, if thesurgery was on the face or scalp, keep your head elevated. Your provider may ask you to limit activity for a longer period of time. APPEARANCE: There may be swelling and bruising around the wound, especially near the eyes. Some redness is normal, but the wound should not be red, hot and tender. If the wound becomes increasingly inflamed, warm, or drains pus, please call our office. WOUND CARE: ?? Wash hands with soap and water before changing the dressing. ?? Change the dressing daily and when it becomes wet. ?? Clean the wound with mild soap and warm water. ?? You may gently loosen any crusts with a cotton swab. ?? The wound may be slightly tender and may bleed a small amount. A small amount of discharge is normal. ?? Apply a thin layer of sterile petroleum jelly over the wound. ?? Cover with Telfa or similar non-stick dressing or bandage. ?? Tape in place with Hypafix or paper tape. ?? It is important to keep the wound covered for 7 days at which point the dressing may be removed and does not need to be reapplied. ?? If there are areas that are not fully healed after 7 days then the dressing should remain in place longer until the skin has healed completely. ?? If your sutures require removal, you will receive specific instructions regarding when and whereto have them removed. Dissolvable sutures generally fall out in 7 to 14 days. If there are suture remnants still present after 7 days you may pull them out with tweezers. CONTACT OUR OFFICE ( or ) IF YOU EXPERIENCE: ?? Increasing redness ?? Wound is warm or hot to touch ?? Increasing pain ?? Drainage with a foul odor ?? Rapid swelling of the wound ?? Fever or chills documented in this encounter Ordered Prescriptions Prescription Sig Dispensed Refills Start Date End Da te triamcinolone (KENALOG) 0.1 % cream Apply topically to affected area 2 times daily. Do not apply to face, armpit or groin. 45 g 3 12/29/2019 cephALEXin (KEFLEX) 500 mg capsule Take 1 Cap by mouth 3 times daily for 3 days. 9 Cap 12/29/2019 01/01/2020 documented in this encounter Progress Notes * Abigail Davey PA-C - 12/29/2019 1000 EDT Images from the original note were not included. MOHS SURGERY POST-OP SUMMARY Liya Anders is a 74 y.o. year old female who underwent Mohs surgery today 12/29/2019. The following is a summary of the operative findings: Lesion 1 Basal cell carcinoma (BCC) Location left nasal tip Size Preop (cm) 0.6 cm x 0.6 cm Size Postop (cm) 0.8 cm x 0.7 cm Stages 1 Depth of Excision perichondrium Repair complex linear repair with regional skin graft Ms. Anders was discharged from the operative suite in good condition. She was carefully instructed in postoperative wound care both verbally and in writing. All sutures used were absorbable, so the patient does not need to return for suture removal. The patient will follow up with Dr. Burch and ryan to see me as needed. Note: She had some hand dermatitis that has been bothering her for months now and a prescription for Triamcinolone cream was given for this. Keflex 500 mg TID x 3 days given for infection prophylaxis(hx aortic valve replacement). Abigail Davey PA-C MOHS EVALUATION NOTE Chief Complaint Patient presents with ??? Basal Cell Carcinoma nose Subjective: Liya Anders is a 74 y.o. year old female who is referred to me for evaluation and treatment of askin cancer on the right nasal tip by Dr. Kit Burch. The patient is referred to consider Mohs surgery versus other treatment options. The patient notes that this lesion has been present for a few months, and reports non-healing and slow growth. The patient???s risk factors for skin cancer include advanced age and blue eyes and fair skin. Risk factors: Pacemaker/ICD: none Anticoagulants: aspirin Total joint replacements/valves: aortic valve replacment 2017 Allergies: Patient is allergic to anesthesia s/i-40 (propofol) [propofol] and morphine. Immunosuppression: none Smoking status: non-smoker For full Medical, Surgical, Family, and Social histories as well as Review of Systems, Medications and Allergies please see those sections of this encounter in the electronic chart which I have personally reviewed. Objective: The patient is a alert and well appearing 74 y.o.-year-old female sitting on the examination table. Examination of the affected area revealed the following: ?? An approximately 0.6 cm x 0.6 cm pearly and pink, papule located on the left nasal tip. ?? Examination of the lymph nodes was not performed today. 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 Ms. Anders and I discussed the meaning of the diagnosis of skin cancer and the options for treatment including curettage and electrodesiccation, radiation therapy, conventional excision, and excision by Mohs micrographic surgery. Due to the need for a high cure rate and optimum functional and aesthetic outcome, I feel that Mohs surgery is indicated. The risks of Mohs surgery and potential reconstructive surgery, including but not limited to, bleeding, scarring, infection, recurrence, injury to functionally or cosmetically important nerve structures and an unsatisfactory cosmetic result werereviewed. The patient was given an opportunity to ask questions, and I believe that all of her questions were answered satisfactorily. Ms. Anders understands that following Mohs surgery an operative repair may be required and may involve substantial suturing. We have jointly planned to have me repair the wound at the day of surgery if needed. She understands that following reconstruction, if performed, many months may elapse before a decision can be made about the final cosmetic result, and that, in some cases a revision may be necessary to optimize the outcome. I explained to Ms. Anders that in addition to the risk of recurrence from her skin cancer she has an increased risk of developing additional new skin cancers elsewhere. For that reason, follow up for ongoing skin surveillance examina tions, after surgery, will be imperative. The patient has been scheduled to undergo surgery today. Note: None Abigail Davey PA-C 12/29/2019 11:31 Enzo Ervin MD Chief of Dermatology [facility] MOHS OPERATIVE REPORT Patient Name: Liya Anders Date of Service: December 29, 2019 Surgeon: Enzo Ervin MD I personally performed the procedure Enzo Ervin MD Chief of Dermatology [facility] Ride Mechanic: Abigail Davey PA-C Case #: [id number] Mohs AUC Score: 9 (APPROPRIATE) Preoperative Diagnosis: Basal cell carcinoma (BCC) Preoperative Procedure: Mohs micrographic surgery Location of Lesion: left nasal tip Preoperative Lesion Size: 0.6 cm x 0.6 cm Preoperative Procedure: Mohs microscopically-controlled fresh tissue excision Indications: The patient presents with a basal cell carcinoma (BCC). Because of the histologic and clinical nature of the lesion, as well as its location, the need to achieve the highest cure rate while providing maximum tissue preservation warranted tumor extirpation via microscopically-controlledexcision using the Mohs fresh tissue technique. Alternate therapeutic options were discussed on several occasions prior to surgery. After informed consent was obtained and appropriate instruction wasprovided, the patient underwent tumor extirpation by the Mohs fresh tissue technique as follows: PROCEDURE - INITIAL STAGE: Patient position: supine Anesthesia: 1% lidocaine with epinephrine 1:100,000 local infiltration Prep: Povodine Iodine Patient Vitals for the past 24 hrs: BP Temp Pulse 12/29/19 0935 126/72 (!) 20.9 ??C (69.6 ??F) 67 The patient was brought to the operative suite. The lesion was identified and was prepped in a sterile fashion. The area was infiltrated with lidocaine/epinephrine to achieve complete anesthesia and to augment hemostasis. The Mohs procedure was then carried out by Dr. Ervin as follows: An initial beveled excision was performed to the perichondrium with a scalpel blade and tissue scissors as indicated. A hash was created in the specimen and within the adjacent epidermis for marking purposes. The Mohs specimen was excised in a sharp manner, and carefully placed in proper orientation on the surgical tray. Hemostasis of the operative wound was obtained with careful spot electrocoagulation. A sterile non-adherent dressing was applied to the operative wound. The Mohs tissue specimen was carefully transferred to the lab where the tissue was divided, and color inked for orientation. These specimens were mapped and then handed personally by the doctor to the certified master safe technician for frozen sectioning. The tissue was embedded so that the deep and surface margins layin the same plane, and sections were made through this plane. Once the slide preparation was complete Dr. Ervin performed histologic evaluation and interpretation of all sections. A summary of the findings may be found below. Stage 1 findings: Wound Depth perichondrium Sections Created 2 Number of Sections Containing Tumor 0 (NORMAL SKIN: Sections consist of a portion of normal appearing skin, including epidermis, dermis, and subcutis. The epidermis and dermis are unremarkable. Thereis no evidence of malignancy). ADDITIONAL STAGES: None With the patient clear of microscopic tumor, surgery was considered complete. The wound was repaired with a COMPLEX LINEAR closure as detailed in the separate linear repair procedure note below. Postoperative Wound Size: 0.8 cm x 0.7 cm Final Diagnosis: Infiltrative basal cell carcinoma Final Procedure: Mohs micrographic surgery Blood Loss: Minimal Operative Time: 30 minutes Complications: None Note: None COMPLEX LINEAR REPAIR Patient Information: Liya Anders 74 y.o. female Referring Provider: Kit Burch MD Surgeon: Enzo Ervin MD I personally performed the procedure Enzo Ervin MD Chief of Dermatology [facility] Ride Mechanic: Abigail Davey PA-C Preoperative Diagnosis: Defect following microscopically controlled excision of infiltrative basal cell carcinoma Preoperative Procedure: Complex Linear Closure Wound Location: left nasal tip Wound Dimensions: 0.8 cm x 0.7 cm INDICATIONS: The patient presents with an operative wound following tumor removal. After careful consideration and discussion of all repair options, it was determined that, given the location and nature of the defect, a multilayered complex linear closure offered the best chance for preservation of normal anatomic and functional relationships. Alternate options were discussed and the patient was encouraged toask questions, which, I believe, were answered appropriately. Informed consent was obtained in writing. After informed consent was obtained and appropriate instruction was provided, the patient underwent operative repair as follows. PROCEDURE: Patient Position: supine Anesthesia: 1% lidocaine with epinephrine 1:100,000 local infiltration Prep: Povodine Iodine The Mohs operative defect was identified, and the area was infiltrated with lidocaine/epinephrine to achieve complete anesthesia and to augment hemostasis. The area was prepped in the usual sterile fashion and was draped with sterile drapes. A complex linear closure was designed with care to place the operative repair within functional and cosmetic lines to minimize the postoperative distortion of normal tissues. The wound edges were prepared using a # 15 scalpel blade to precisely delineate the operative repair and were then extensively undermined with combined blunt and, as needed, sharp dissection taking great care to avoid functionally important vessels and nerves. Undermining was carried out at the level of the perichondrium. Hemostasis of the operative wound was obtained with careful spot electrocoagulation, and ligature as indicated. The wound edges were then approximated using 5.0 Monocryl (poliglecaprone 25) buried interrupted sutures at the level of the subcutis and dermis. The epidermis was then approximated using 6.0 Fast absorbing plain gut. The final wound length was 3.0 cm Final Diagnosis: Defect following microscopically controlled excision. Final Procedure: Complex linear closure Blood Loss: minimal Operative Time: 45 minutes Complications: none Complex repair criteria met for this repair: Extensive undermining along the entire length of at least one wound edge, perpendicular to the closure line and equal to or greater than the maximum widthof the defect. Note: A small regional Burow's graft was used at the distal portion of the wound. Abigail Davey PA-C documented in this encounter Plan of Treatment Upcoming Encounters Date Type Department Care Team (Late st Contact Info) Description 03/08/2025 11:00 EDT Office Visit [facility] Dermatology [address] [place] [address] Cynthia Salinas MD [address] [place] [address], [facility] [address] [place] [phone] documented as of this encounter Procedures Procedure Name Priority Date/Time Associated Diagnosis Comments PROCEDURE REPORTS - SCANNED 01/09/2020 12:48 EDT documented in this encounter Results * PROCEDURE REPORTS - SCANNED (01/09/2020 12:48 EDT) 01/09/2020 12:4 8 EDT Scan 2 Finishing Supervisor PROCEDURE/MINOR NANCY GICAL ORDERABLES documented in this encounter Visit Diagnoses Diagnosis Basal cell carcinoma (BCC) of skin of nose- Primary documented in this encounter Care Teams Counseling Services Director Relationship Specialty Start Date End Date Kit Burch MD [address] [place] [phone] PCP - General 01/15/18 10/29/23 documented as of this encounter
--- OUTSIDE RECORDS SUMMARY | 2024-03-03 01:19 | XMS_ITS | Encounter Summary ---
Author Organization [facility] Address [address] [place] [address] Care Team Providers Care Sports Physical Therapist Name Role Phone Kit Burch MD Primary Care Provider [phone] Reason for Visit * Reason Comments Post-OP Follow Up Here for follow up, xray today. 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 Cardiothoracic Surgery - Main [place] [address] [place], [place] [id number] Tyrell Vogt MD Atherosclerosis of [place] coronary artery of [place] heart with angina pectoris (HCC-CMS) (Primary Dx) Discharge Disposition: Auto Discharge Social History Tobacco [...] Sign Reading Time Taken Comments Blood Pressure 128/76 04/08/2018 1040 EDT Pulse 60 04/08/2018 1040 EDT Temperature 36.3 ??C (97.3 ??F) 04/08/2018 1040 EDT Respiratory Rate 14 04/08/2018 1040 EDT Oxygen Saturation 95% 04/08/2018 1040 EDT Inhaled Oxygen Concentration - - Weight 80.3 kg (177 lb) 04/08/2018 1040 EDT Height 144.8 cm (4' 9) 04/08/2018 1040 EDT Body Mass Index 38.3 04/08/2018 1040 EDT documented in this encounter Functional Status [...] No 02/25/2018 documented as of this encounter Discharge Diagnoses Diagnosis Z95.2 Presence of prosthetic heart valve-Z95.2[ICD-10-CM] Z95.1 Presence of aortocoronary bypass graft-Z95.1[ICD-10-CM] Z98.890 Other specified postprocedural states-Z98.890[ICD-10-CM] I25.119 Atherosclerotic heart disease of [place] coronary artery with unspecified angina pectoris-I25.119[ICD-10-CM] documented in this encounter Patient Instructions * Patient Instructions* Chaya Medrano RN - 04/08/2018 9:30 EDT No lift, push, pull greater than ten pounds from your surgery date as follows: Full-Sternotomy (long incision over chest bone) 12 weeks If you are a woman, and had a full-sternotomy approach to your surgery, you should wear a bra for 12 weeks post-operatively to protect the sternum (chest bone) and promote the healing process. If youhad a mini-sternotomy (short incision over chest bone) you should wear a bra for six weeks post-operatively. Place a clean handkerchief or pad between the incision and your bra to keep the bra from irritating your incision. You may remove your bra and shower with soap and water daily and reapply your bra. Continue your long-term care follow-up with your Mobile Manager/Heart Doctor and Primary Care Provider/Doctor as well as any other Providers/Doctors that you normally follow\ with. Following closely with your Doctors for health care maintenance is very important. Talk with your Primary Care Doctor regarding the vitamins and supplements that you were on. Continue to follow your Cardiac Diet. You will learn more about your Cardiac Diet at the OutpatientCardiac Rehabilitation Program. If you are diabetic, continue to follow the Diabetic Diet or as per your Doctor. Follow-up with your Primary Care Provider/Doctor or Telephone Lines Repairer/Diabetes Doctor for your diabetes. Continue to ambulate/walk as reviewed in the Discharge Video. Continue Cardiac Rehabilitation at the Hospital closest to your home if you have started. This Program is an important part of your recovery process. This will include instruction and education on a life-long exercise Program as well as education around your cardiac/heart disease, diet and risk factors that you can control. If you have not started Cardiac Rehabilitation, contact your Primary Care Provider/Doctor or your Mobile Manager/Heart Doctor for a referral to the Program with a Stress Test. For those of you who attend the Program at [facility] ([facility] Cardiology) you can have your Stress Test at the Cardiac Rehabilitation Program. They are located at [address] [place] [address] and their telephone number is . Follow the [place] Antibiotic Prophylaxis/Prevention Guidelines given and reviewed with you in a handout format today. Bring this with you to your Cardiology/Heart Doctor follow-upvisits in the future so that your Mobile Manager/Heart Doctor can inform you of any future updates regarding these Guidelines. Your prescription for an antibiotic should come from your Primary Care Provider/Doctor or Dentist. Wait three months from your surgery date to have dental work or dental cleanings unless you are having a dental problem then follow the Guidelines given to you listed above. If you have chest, jaw, neck, arm, back pain or pressure, nausea, sweating, shortness of breath, dizziness with sweating, palpitations (fluttering in your chest), fast heart beat or irregular heart beat, fainting (passing out) or near- fainting you should contact your Doctor. If you are having a medical emergency you should call 911. Contact our office (Cardiothoracic Surgery) at if you have any questions or problemsas reviewed. documented in this encounter Discharge Disposition Disposition Code Departure Means Destination Auto Discharge documented in this encounter Progress Notes * Tyrell Vogt MD - 04/08/2018 0930 EDT Postop On-pump coronary artery bypass x1 (left internal mammary to LAD), aortic valve replacement (Lalo bovine pericardial valve, size small). 02/22/18 SUBJECTIVE: Liya Anders was seen in the office today. In general, she seems to be doing quite well. She has seen Dr. Burch and will see Milagro Lozano NP on 04/14/18. She has had some floaters inher vision. They are described as silver things. She does have follow up with an eye doctor. OBJECTIVE: BP 128/76 (BP Cuff Location: Right arm, Patient Position: Sitting, BP Cuff Sizes: Adult,large) Pulse 60 Temp 36.3 ??C (97.3 ??F) (Temporal) Resp 14 Ht (!) 144.8 cm (57) Wt 80.3kg (177 lb) SpO2 95% BMI 38.3 kg/m2. Her chest is clear to auscultation and percussion. Her heart shows a regular rhythm without murmurs or rubs. Her sternotomy site has healed well. Chest XRay reading today: ? IMPRESSION: ?? Satisfactory postoperative chest radiograph. Surgical Pathology: Final Pathologic Diagnosis: CARDIAC VALVE, AORTIC, RESECTION: - Multiple fragments of cardiac valve tissue with: ?- Calcified multinodular sclerosis. ?- Focal stromal calcification and myxoid degenerative changes. ASSESSMENT: I think that Liya Anders has done well following her Tissue aortic valve replacementfor her stenosis and CABG for her CAD. She will start cardiac rehab with a referral from Ms. Chaudhari. She will follow up with her eye doctor about the floaters. I would not change any of her current medications at the present time, which include: Current Outpatient Prescriptions: acetaminophen (TYLENOL) 500 mg tablet Aloe Vera 25 mg capsule ascorbic acid, vitamin C, (VITAMIN C) 500 mg tablet aspirin chewable 81 mg tablet calcium carbonate (TUMS) 200 mg calcium (500 mg) tablet,chewable calcium/magnesium (CALCIUM AND MAGNESIUM ORAL) chrm/vineg/bit-orang peel/gr t (APPLE CIDER VINEGAR PLUS ORAL) Cinnamon Bark 500 mg capsule coconut oil 1,000 mg capsule cranberry fruit extract (CRANBERRY ORAL) cyanocobalamin (VITAMIN B-12) 100 mcg tablet furosemide (LASIX) 20 mg tablet krill oil 500 mg capsule levothyroxine (SYNTHROID) 125 mcg tablet sertraline (ZOLOFT) 100 mg tablet simvastatin (ZOCOR) 20 mg tablet tocopheryl acetate (VITAMIN E) 200 unit capsule UNABLE TO FIND UNKNOWN TO PATIENT Zinc Acetate, Oral, 50 mg (zinc) capsule No current facility-administered medications for this visit. . PLAN: 1. No change in medications. 2. Continue close follow up with Kit Burch and Manuel Marta FLORENTINO 3. Follow-up in this office on a PRN basis. 4. Cardiac rehab per Ms. Lozano FLORENTINO 5. Opthalmology follow up for her eye floaters. Tyrell Vogt MD 04/08/2018 documented in this encounter Plan of Treatment Upcoming Encounters Date Type Department Care Team (Late st Contact Info) Description 03/08/2025 11:00 EDT Office Visit [facility] Dermatology [address] [place] [address] Cynthia Salinas MD [address] [place] [address], [address] [place] [address] documented as of this encounter Visit Diagnoses Diagnosis Atherosclerosis of [place] coronary artery of [place] heart with angina pectoris (HCC-CMS)- Primary documented in this encounter Discontinued Medications Medication Sig Discontinue Reason Start Date End Da te docusate sodium (COLACE) 100 mg capsule Take 2 Caps by mouth 2 times daily. Therapy completed 02/27/2018 04/08/2018 documented as of this encounter Historical Medications * This list may reflect changes made after this encounter. Medication Sig Dispensed Refills Start Date End Date UNKNOWN TO PATIENT sleeping pill patient unsure of name. UNABLE TO FIND Med Name: CBD oil 10/30/19 24 added in this encounter Care Teams Sports Physical Therapist Relationship Specialty Start Date End Date Kit Burch MD [facility] [address] [place] [phone] PCP - General 01/15/18 10/29/23 documented as of this encounter
--- OUTSIDE RECORDS SUMMARY | 2024-03-03 01:19 | XMS_ITS | Encounter Summary ---
Author Organization [facility] Address [address] [place] [address] Care Team Providers Care Snack Bar Attendant Name Role Phone Kit Burch MD Primary Care Provider [phone] [facility] Primary Care Provider [phone] Encounter Details Date Type Department Care Team (Late st Contact Info) Description 03/06/2022 Lab Requisition [facility] Pathology & Laboratory Medicine - [address] [id number] Outr Resulting Lab, Provider Social History Tobacco [...] Info) Description 03/08/2025 11:00 EDT Office Visit [facility] Dermatology [address] [place] [address] Cynthia Salinas MD [address] [facility] [address] [place] [address] documented as of this encounter Procedures Procedure Name Priority Date/Time Associated Diagnosis Comments VITAMIN B12 Routine 03/06/2022 11:27 EDT documented in this encounter Results * (ABNORMAL) VITAMIN B12 (03/06/2022 11:27 EDT) Vitamin B12 1,790(H) 211 - 911 pg/mL 03/06/2022 23:06 EDT [facility] Blood VENOUS BLOOD / Unknown 03/06/2022 11:27 EDT 03/06/2022 21:26 EDT Provider Outr Resulting Lab CHEMISTRY & BLOOD GAS ORDERABLES [facility] [address] [place] [address] documented in this encounter Visit Diagnoses Not on filedocumented in this encounter Care Teams Snack Bar Attendant Relationship Specialty Start Date End Date Kit Burch MD [address] [place] [address] PCP - General 01/15/18 10/29/23 [facility] [address] [place] [address] PCP - General 10/30/23 documented as of this encounter
--- OUTSIDE RECORDS SUMMARY | 2024-03-03 01:19 | XMS_ITS | Encounter Summary ---
Author Organization [facility] Address [address] [place] [address] Care Team Providers Care Labels Molder Name Role Phone Kit Burch MD Primary Care Provider [phone] Encounter Details Date Type Department Care Team (Late st Contact Info) Description 04/14/2018 Results Only [facility] Cardiology - [address] [address] Milagro Lozano RN [address] [place] [address] Social History Tobacco Use Types Packs/Day Years [...] Info) Description 03/08/2025 11:00 EDT Office Visit [facility] Dermatology [address] [place] [address] Cynthia Salinas MD [address] [place] [address], [facility] [address] [place] [address] documented as of this encounter Procedures Procedure Name Priority Date/Time Associated Diagnosis Comments BASIC METABOLIC PANEL (BMP) Routine 04/14/2018 11:59 EDT documented in this encounter Results * BASIC METABOLIC PANEL (BMP) (04/14/2018 11:59 EDT) Sodium 142 136 - 145 mEq/L 04/14/2018 16:34 [facility] Potassium 4.1 3.5 - 5.0 mEq/L 04/14/2018 16:34 [facility] Chloride 103 96 - 110 mEq/L 04/14/2018 16:34 [facility] CO2 31 22 - 32 mEq/L 04/14/2018 16:34 [facility] BUN 20 10 - 26 mg/dl 04/14/2018 16:34 [facility] Creatinine 0.71 0.52 - 1.04 mg/dl 04/14/2018 16:34 [facility] GFR, Calculated 86 >60 ml/min/1.7 3m2 04/14/2018 16:34 [facility] Comment: eGFR calculated using CKD-EPI equation for non Americans. Multiply eGFR by 1.16 for Americans. Calcium 9.5 8.5 - 10.5 mg/dl 04/14/2018 16:34 [facility] Calculated Calcium 9.5 8.5 - 10.5 mg/dl 04/14/2018 16:34 [facility] Glucose, Serum 95 70 - 100 mg/dl 04/14/2018 16:34 [facility] Fasting? Unknown 04/14/2018 16:00 EDT [facility] BLOOD SPECIMEN / Unknown 04/14/2018 11:59 EDT 04/14/2018 16:00 EDT Milagro Lozano RN CHEMISTRY & BLOOD GA S ORDERABLES Performing Organization Address City/State/[facility] Co de Phone Number [facility] [address] [place] [address] documented in this encounter Visit Diagnoses Not on filedocumented in this encounter Care Teams Labels Molder Relationship Specialty Start Date End Date Kit Burch MD [facility] [address] [place] [address] PCP - General 01/15/18 10/29/23 documented as of this encounter
--- OUTSIDE RECORDS SUMMARY | 2024-03-03 01:20 | XMS_ITS | Encounter Summary ---
Author Organization [facility] Address [address] [place] [address] Care Team Providers Care Plow Mechanic Name Role Phone Kit Burch MD Primary Care Provider Reason for Visit * Reason Onset Date Comments Patient Information Update 02/09/2018 Encounter Details Date Type Department Care Team (Late st Contact Info) Description 02/09/2018 Telephone [facility] Cardiothoracic Surgery - [address] [phone] Sharla Clements RN [address] [place] [address] Patient Information Update Social History Tobacco Use Types Packs/Day Years Used Date Smoking Tobacco: Former Cigarettes 0 07/27/1961 - 07/27/1962 Smokeless Tobacco: Never Sex and Gender Information Value Date Recorded Sex Assigned at Not on file Gender Identity Female 11/09/2019 12:42 EDT Sexual Orientation Not on file documented as of this encounter Miscellaneous Notes * Telephone Encounter - Sharla Clements RN - 02/09/2018 1054 EDT Valve booklets mailed to patient and she is aware they are coming. documented in this encounter Plan of Treatment Upcoming Encounters Date Type Department Care Team (Late st Contact Info) Description 03/08/2025 11:00 EDT Office Visit [facility] Dermatology [address] [place], [place] [address] Cynthia Salinas MD [address] [facility], [facility] [address] [place] [address] documented as of this encounter Visit Diagnoses Not on filedocumented in this encounter Care Teams Plow Mechanic Relationship Specialty Start Date End Date Kit Burch MD [address] [place] [address] [address] [place] [phone] PCP - General 01/15/18 10/29/23 documented as of this encounter
--- OUTSIDE RECORDS SUMMARY | 2024-03-03 01:20 | XMS_ITS | Encounter Summary ---
Author Organization [facility] Address [address] [place] [address] Care Team Providers Care Transitional Care Nurse Name Role Phone Unavailable Primary Care Provider Unavailabl e Encounter Details Date Type Department Care Team (Late st Contact Info) Description 12/03/2004 Results Only [facility] [address] [place] [address] Unknown, Provider, Social History Tobacco Use Types Packs/Day Years Used Date Smoking Tobacco: Never Assessed Sex and Gender Information Value Date Recorded Sex Assigned at Not on file Gender Identity Female 11/09/2019 12:42 EDT Sexual Orientation Not on file documented as of this encounter Plan of Treatment Upcoming Encounters Date Type Department Care Team (Late st Contact Info) Description 03/08/2025 11:00 EDT Office Visit [facility] Dermatology [address] [place] [address] Cynthia Salinas MD 111 [facility], [facility] [address] [place] [phone] documented as of this encounter Procedures Procedure Name Priority Date/Time Associated Diagnosis Comments VITAMIN B12 Routine 12/03/2004 9:06 EDT documented in this encounter Results * VITAMIN B12 (12/03/2004 9:06 EDT) Vitamin B-12 512 250 - 1100 pg/ml [facility] 12/03/2004 9:06 EDT 12/03/2004 22:15 EDT Provider Unknown CHEMISTRY & BLOOD GA S ORDERABLES Performing Organization Address City/State/[facility] Co de Phone Number [facility] [address] [place] [address] documented in this encounter Visit Diagnoses Not on filedocumented in this encounter
--- OUTSIDE RECORDS SUMMARY | 2024-03-03 01:20 | XMS_ITS | Encounter Summary ---
Author Organization [facility] Address [address] [place] [address] Care Team Providers Care Machine Icer Name Role Phone Unavailable Primary Care Provider Unavailabl e Encounter Details Date Type Department Care Team (Latest Contact Info) Description 04/08/2002 9:00 EDT - 04/08/2002 11:59 EDT Hospital Encounter [facility] General Surgery Unit [address] [place], [place] [phone] Vignesh Barkley MD [address] [place] [address] Discharge Disposition: Home or Self Care Social History Tobacco Use Types Packs/Day Years Used Date Smoking Tobacco: Never Assessed Sex and Gender Information Value Date Recorded Sex Assigned at Not on file Gender Identity Female 11/09/2019 12:42 EDT Sexual Orientation Not on file documented as of this encounter Discharge Disposition Disposition Code Departure Means Destination Home or Self Care documented in this encounter Plan of Treatment Upcoming Encounters Date Type Department Care Team (Late st Contact Info) Description 03/08/2025 11:00 EDT Office Visit [facility] Dermatology [address] [place] [address] Cynthia Salinas MD 111 [facility], [facility] [address] [place] [address] documented as of this encounter Visit Diagnoses Not on filedocumented in this encounter
--- OUTSIDE RECORDS SUMMARY | 2024-03-03 01:20 | XMS_ITS | Encounter Summary ---
Author Organization [facility] Address [address] [place] [address] Care Team Providers Care Parts Counterman Name Role Phone Kit Burch MD Primary Care Provider [phone] Reason for Visit * Reason Onset Date Comments Pre-visit Planning 02/08/2018 Encounter Details Date Type Department Care Team (Late st Contact Info) Description 02/08/2018 Telephone [facility] Cardiothoracic [place] [address] Sharla Clements, RN [address] [place] [address] Pre-visit Planning Social History Tobacco Use Types Packs/Day Years Used Date Smoking Tobacco: Former Cigarettes 0 07/27/1961 - 07/27/1962 Smokeless Tobacco: Never Sex and Gender Information Value Date Recorded Sex Assigned at Not on file Gender Identity Female 11/09/2019 12:42 EDT Sexual Orientation Not on file documented as of this encounter Miscellaneous Notes * Telephone Encounter - Sharla Clements RN - 02/08/2018 [address] [address] (Toll Free) (Office) Preoperative Instructions - Cardiac Surgery Patients Dear Ms. Liya Anders, Welcome to the Division of Cardiothoracic Surgery at the [facility]. We look forward to making your stay a safe, comfortable and pleasant experience. If we can assist you inany way, please feel free to contact us. We will make every effort to provide you with the information necessary to meet your needs. We have scheduled your surgery for Thursday, February 22, 2018 at 7:25AM. Please plan to arrive at the Medical Center at 6AM. You should report to the Registration area on Level 3 (Street Level) which is located in the Main Entrance of the [facility] [employer] [facility] at the [facility]. If you have been pre-registered over the telephone, you will still need to stop at Registration. Ifyou use the parking garage, take the elevator to Level 3 and continue down the malik to Registrationwhich is on your left, if you use the [facility] Elevators, and on your right if you use the [facility] Elevators. If you use [facility] Parking, enter the front door ([address]) and to your left is Registration. You will be instructed by Registration to proceed to the Surgery and Outpatient Procedure Area, also located on Level 3, across the hallway from Registration. You will then be taken to the Pre-Operative area where you will be prepared for surgery. Your family or support person may accompany you to Pre-Operative Hold. We have Family Centered Care at [facility] thus the number of family and friends present is dependent on the needs and comfort of the patient as well as other patients thatmay reside in the area (such as a semi-private room that is shared with another patient). Your family member / support person will then be given instructions on where to wait during your surgery and provided a pager so that they can be contacted when your surgery is completed. At that time, the surgeon will discuss your progress with the family member or as per your wishes. When you are settled in the Surgical Intensive Care Unit or the Post-Operative Recovery Area following your surgery, your family, support person or designated family members may visit you. Prior to the surgery, you will be scheduled for an anesthesia pre-screen telephone call with the Pre-Operative Department. Normally we will have this date and time of the call for you on the day you pre-op with the Surgeon. If so, your telephone call has been scheduled on February 16, 2108 between 1:50PM and 2:20PM. You can expect a telephone call from that Department during this time period. Please be available to take the call. If you do not receive an appointment for the pre-screen call within two days of this appointment please contact our office at . In order to assist you and your family in planning for your surgery, we have enclosed educational materials pertaining to your surgery and a Web Site Resources Handout. We have also included a lodging list (for those of you who reside outside the [facility]), should you or your loved ones require accommodations during your hospitalization. Discounts apply at many, thus remind the Hotel / Motel that you are a patient or family member to secure the discount that may be offered. If you need aletter for the discount or further information contact The Office of Patient and Family Advocacy [phone] for assistance. Additional resources and information are also available on our [facility] web site at [email or web address]. Your length of stay at the Hospital will depend upon the complexity of your surgery and your recovery process. As you near discharge, the Inpatient Team will normally inform you and your family 24 hours in advance. In order that we may serve your needs better, the recommended discharge time is approximately 11:00 AM. We suggest that you make appropriate arrangements for transportation in advance so that your discharge time can be met. This process is very important for patient satisfaction as well as for patient flow throughout the Medical Center. If you will be staying somewhere other than your home the day and evening prior to surgery, PLEASE CONTACT OUR OFFICE PRIOR TO LEAVING YOUR HOME to inform us of where you will be staying as well as the telephone number and the name of the person you will be registered under (if staying at a hotel).In the event of a scheduling change, we will then be able to contact you. Please contact us before 4:00 PM the day prior to surgery unless your surgery is on a Thursday, and then contact us on Thursday prior to 4:00 PM with this information. Our office telephone numbers are on the last page of these instructions. For those of you who take an Aspirin once daily, CONTINUE THE ASPIRIN, unless your Surgeon has directed you differently. You should not take additional Aspirin or Aspirin-Containing Medications for 7days prior to your surgery. Non- Steroidal Anti-inflammatory medications such as Indomethacin, Ibuprofen / Motrin / Advil, Aleve, Celebrex should be held for 72 hours (THREE DAYS) prior to your surgery. ALL Vitamins, Supplements and Herbal Supplements should be discontinued SEVEN days prior to your surgery. STOP SAW PALMETTO 14 DAYS prior to your surgery. There may be other medications of concern, thus check with our office prior to taking them. You may take Tylenol (except those who are allergic to it or have other side effects from this medication) as directed for pain (not heart pain) right up to the day of surgery if you need to. If yourpain is not relieved, please contact your Primary Care Doctor for a treatment plan. Some of you may need to be protected with Heparin or Lovenox / Enoxaparin while you are not taking your Anticoagulants (Blood thinners). This will be discussed with you prior to leaving our office today. In addition, some of you may not be able to stop your medication because of your medical condition. This will also be discussed with you during your visit today. Continue to take all of your other medications unless otherwise specified in these instructions. Please advise your Primary Care Physician / Doctor and your Carpet Installer / Hear Doctor if any of your medications have been discontinued temporarily prior to your surgery. Contact our office (Cardiac / Heart Surgery if any medications are added or changed between today and your surgery so that we can advise you on these as well. If you have been prescribed Nitroglycerin, follow the Nitroglycerin instruction handout that has been given to you. If you have an increase in your symptoms, contact your Physician / Doctor or our office immediately. If it is not during normal business hours and you feel that your symptoms need immediate attention, then proceed to your closest Emergency Department or call 911 or the emergency number for your area if you are having a medical emergency. Do not attempt to drive or have someone drive you in an emergency. If you have any questions regarding your medications and which medications to discontinue, please contact our office and ask to speak with a nurse or Doctor. THE DAY BEFORE SURGERY continue your diet as normal until midnight prior to the day of your procedure (surgery). Have no solid food or liquids containing fats, including milk, after midnight before your procedure(surgery). You may have fat-free, clear liquids ONLY until 4 hours before the scheduled time of your procedure(surgery). NO CREAM, MILK OR DAIRY. ACCEPTABLE CLEAR LIQUIDS ARE FOLLOWS: Water or Gatorade Black Coffee or Black Tea, may be sweetened Clear fruit juice is apple or cranberry only Non-alcoholic carbonated beverages JELL-O IMPORTANT!!! Failure to comply with the above guidelines may result in the cancellation OR delay of your surgery! TAKE YOUR REGULARLY SCHEDULED MEDICATIONS DIRECTED WITH SMALL SIPS OF WATER at any time prior toyour (procedure) surgery, EXCEPT INSTRUCTED ON THESE INSTRUCTIONS. SOME OF YOU MAY BE ASKED TO NOT TAKE CERTAIN MEDICATIONS. IF SO, DO NOT TAKE THE FOLLOWING MEDICATIONS ON THE DAY OF THE SURGERY: Lasix (Furosemide) HOLD THE DAY BEFORE SURGERY AND THE DAY OF SURGERY Lisinopril (Prinvil, Zestril) You should take TWO SHOWERS with the Chlorhexidine Gluconate Antiseptic soap instead of using your own soap. This has been provided to you in the plastic bag. Take one shower the evening prior to surgery and again the day of the surgery. Apply the soap to a clean washcloth and wash as instructed (see Skin Preparation Instructions Handout for details, located in the Red Information Booklet given to you.) Do not allow the Chlorhexidine soap to come in contact with mucous membranes such as eyes, mouth, genitals, or your face and head. NOTE: Detailed instructions (DRUG FACTS) should be read on the product prior to use. Ask someone for assistance if you are unable to wash certain areas of your body. You should wash your face with regular soap as well as your hair with any shampoo. It does not matter in what order you complete this. The showering instructions may vary if your nasal (nose) culture was positive, see attached ???Pre-Operative Screening and Skin Preparation Instructions in the Red Folder. You may practice using the inspirometer that was demonstrated today. Once you feel comfortable withits use, set it aside and leave it at home so that you can use [facility] You will be given another inspirometer at the Hospital for your Hospital stay. You should have received a video/DVD Recovering at Home Following Your Heart Surgery. You should view the video and read the Addendum Handout that goes with it prior to surgery. You may leave it athome so that you can view it again following your discharge. Please return the video to the Surgeon???s Office at your 4-6 week follow-up visit. Hair clipping of the chest and legs (from your groin to your ankles) may be necessary if you are having cardiac surgery. This will be completed in the Pre- Operative Hold area on the day of your surgery. Do not do this on your own. If you are a woman, we are asking that you wear a bra following cardiac / heart surgery. The Hospital will provide you with a post-operative surgical bra and size you following your surgery. You should wear a bra 24 hours per day post- operatively. You may remove the bra when you shower or sponge bathe and then reapply it. If you had a mini-sternotomy (short incision over chest bone) the bra should be worn for six weeks. If you had a full-sternotomy (long incision over chest bone) the bra shouldbe worn for twelve weeks. A bra holds your breasts closer to your chest and assists in the healing process of the chest bone. A pad or clean handkerchief between your incision and the bra should keep the bra from irritating your incision. If you would like to order additional bras following discharge, you may call [facility] at or or Web Site: [email or web address] While waiting for your cardiac surgery, dental cleanings or dental work are not recommended within three months of your surgery UNLESS you are having a dental problem. Please contact our office to discuss, as planned antibiotic prophylaxis for prevention of infection may be necessary. Wear casual, comfortable, freshly laundered, loose fitting clothing to the Hospital. Button down shirts or blouses are normally most comfortable. Do not wear any nail arabic, makeup, powder, lotion, deodorant or jewelry of any kind. Do not bring valuables, additional clothing or bed attire with you. Have your family member hold onto your glasses, hearing aids or other personal items. Bring an eyeglass case / contact lens case with you. Your belongings can be taken home by your family or friends. If no family member is present to assist you, we will store your belongings in our Security Department until you request them. A nurse at the Hospital can assist you with this process if needed. If you use BIPAP or CPAP for sleep apnea, please bring your mask and equipment with you on the day of the surgery. If you will be staying somewhere other than your home the day and evening prior to surgery, PLEASE CONTACT OUR OFFICE PRIOR TO LEAVING YOUR HOME to inform us of where you will be staying as well as the telephone number and the name of the person you will be registered under (if staying at a hotel).At times your Surgeon/Doctor must respond to emergencies or urgent patient needs therefore the surgery dates of our elective surgery patients (like yourself) must be postponed. If your surgery is postponed to a later date, the Surgeon will make every effort to give you as much notice as possible. Pre-Operatively your health care should continue with your Primary Care Physician / Doctor or Carpet Installer / Doctor (for cardiac surgery patients). If you have any questions related to your medical condition, please contact your Physician / Doctor. If you have a fever, upper respiratory infection, flu-like symptoms, diarrhea, sore throat, or other signs of an illness, please inform our office so the Surgeon / Doctor can adjust your surgery date if appropriate. While waiting for your surgery, you should not participate in aerobic activities (exercise), activities that elevate your heart rate or bring on cardiac / heart symptoms which may or may not include nausea, shortness of breath, dizziness, nausea, fainting (passing out), or near passing out, sweating, chest, back, jaw, neck or arm pain, chest or back pressure. If you have a change in your medical c ondition, once again seek medical assistance right away. If you are having a medical emergency as always call 911. If you were provided with an Advance Directive, please bring a copy with you on the day of surgery so that we can add this to your medical record. We hope that your pre-operative visit with Cardiothoracic Surgery has met your needs. We look forward to working with you and to providing you with high quality services. If we can be of further assistance, please feel free to contact us at the numbers listed below. The Division of Cardiothoracic Surgery (Toll Free) MD Tee Morillo MD Bruce J. Leavitt, MD Mitchell C. Norotsky, MD Anahita M. Parsee, MD documented in this encounter Plan of Treatment Upcoming Encounters Date Type Department Care Team (Late st Contact Info) Description 03/08/2025 11:00 EDT Office Visit [facility] Dermatology [address] [place] [address] Cynthia Salinas MD [address] [facility] [address] [place] [address] documented as of this encounter Visit Diagnoses Not on filedocumented in this encounter Care Teams Parts Counterman Relationship Specialty Start Date End Date Kit Burch MD [facility] [address] [place] [phone] PCP - General 01/15/18 10/29/23 documented as of this encounter
--- OUTSIDE RECORDS SUMMARY | 2024-03-03 01:20 | XMS_ITS | Encounter Summary ---
Author Organization [facility] Address [address] [place] [address] Care Team Providers Care Double Reamer Operator Name Role Phone Kit Burch MD Primary Care Provider [phone] Reason for Visit * Reason Onset Date Comments Confirmation 02/19/2018 Encounter Details Date Type Department Care Team (Late st Contact Info) Description 02/19/2018 Telephone [facility] Cardiothoracic Surgery - [address] [address] Chaya Medrano RN Confirmation Social History Tobacco Use Types Packs/Day Years Used Date Smoking Tobacco: Former Cigarettes 0 07/27/1961 - 07/27/1962 Smokeless Tobacco: Never Sex and Gender Information Value Date Recorded Sex Assigned at Not on file Gender Identity Female 11/09/2019 12:42 EDT Sexual Orientation Not on file documented as of this encounter Miscellaneous Notes * Telephone Encounter - Chaya Medrano RN - 02/19/2018 1152 EDT The following information was reviewed: Surgery Date: 02/19/18 Surgery Time: 724 Check In Time: 06 Surgery to be Performed: AVR Tissue Perceval CABG x 1 Surgery Type Confirmed with patient: Yes Name of Surgeon: Dr. Vogt Pre-Operative review of Instructions, medications, MRSA/MSSA Skin Preparation with Hibiclens and Bactroban per protocol in process (if positive test results on cardiac surgery patients) otherwise Hibiclens shower evening prior to surgery and morning of surgery prior to admission on all patients) reviewed with: Patient Changes in Medical Condition: No Reviewed with Surgeonyes Patient Location and Telephone Number Evening Prior to Surgery: Hotel: Pt not certain where howevertwo cell phones (her cell phone) [phone] (daughter cell) [phone] Plan: As above Patient verbalized understanding of Pre-Operative Confirmation Call Information. No barriers to learning identified: Yes * Telephone Encounter - Martha Rodriguez - 02/19/2018 1120 EDT Daughter returning call to CT Surgery RN. Requesting return call to [phone]. * Telephone Encounter - Chaya Medrano RN - 02/19/2018 1029 EDT Cardiothoracic Surgery Update Message left on patient's phone mail as well as daughter's to contact our office to confirm check in 6 am on Thursday02/22/18 and to complete confirmation call. documented in this encounter Plan of Treatment Upcoming Encounters Date Type Department Care Team (Late st Contact Info) Description 03/08/2025 11:[address] [facility] Dermatology [address] [place] [address] Cynthia Salinas MD [address] [place] [address], [facility] [address] [place] [phone] documented as of this encounter Visit Diagnoses Not on filedocumented in this encounter Care Teams Double Reamer Operator Relationship Specialty Start Date End Date Kit Burch MD [address] [place] [address] PCP - General 01/15/18 10/29/23 documented as of this encounter
--- OUTSIDE RECORDS SUMMARY | 2024-03-03 01:20 | XMS_ITS | Encounter Summary ---
Author Organization [facility] Address [address] [place] [address] Care Team Providers Care Manager Harbor Name Role Phone Unavailable Primary Care Provider Unavailabl e Encounter Details Date Type Department Care Team (Late st Contact Info) Description 02/15/2007 Results Only [facility] [address] [place] [address] Unknown, Provider, Social History Tobacco Use Types [...] Info) Description 03/08/2025 11:00 EDT Office Visit [facility] Dermatology [address] [place] [id number] Cynthia Salinas MD [address] [facility] [address] [place] [phone] documented as of this encounter Procedures Procedure Name Priority Date/Time Associated Diagnosis Comments VITAMIN B12 Routine 02/15/2007 12:31 EDT documented in this encounter Results * VITAMIN B12 (02/15/2007 12:31 EDT) Vitamin B-12 548 250 - 1100 pg/ml [facility] 02/15/2007 12:3 1 EDT 02/15/2007 21:18 EDT Provider Unknown MD CHEMISTRY & BLOOD GA S ORDERABLES Performing Organization Address City/State/[facility] Co de Phone Number [facility] [address] [place] [address] documented in this encounter Visit Diagnoses Not on filedocumented in this encounter
--- OUTSIDE RECORDS SUMMARY | 2024-03-03 01:20 | XMS_ITS | Encounter Summary ---
Author Organization [facility] Address [address] [place] [address] Care Team Providers Care Portfolio Strategist Name Role Phone Kit Burch MD Primary Care Provider [phone] Reason for Visit * Reason Onset Date Comments Other 01/28/2018 change in surger y date Encounter Details Date Type Department Care Team (Late st Contact Info) Description 01/28/2018 Telephone [facility] Cardiothoracic Surgery - Main [address] [address] Tyrell Vogt MD Other (change in surgery date) Social History Tobacco Use Types Packs/Day Years Used Date Smoking Tobacco: Former Cigarettes 0 07/27/1961 - 07/27/1962 Smokeless Tobacco: Never Sex and Gender Information Value Date Recorded Sex Assigned at Not on file Gender Identity Female 11/09/2019 12:42 EDT Sexual Orientation Not on file documented as of this encounter Miscellaneous Notes * Telephone Encounter - Chaya Medrano RN - 01/28/2018 1158 EDT Cardiothoracic Surgery Update Pt aware new surgery date 02/22/18 1st case 6 am checkin. We will see her post- cath to review pre-opinstructions. * Telephone Encounter - Martha Rodriguez - 01/28/[address] Vogt, surgery date changed from Thursday02/15/18 to 02/22/18. Patient scheduled forcardiac cath on 02/08/18 and will have pre-op at that time. documented in this encounter Plan of Treatment Upcoming Encounters Date Type Department Care Team (Late st Contact Info) Description 03/08/2025 11:00 EDT Office Visit [facility] Dermatology [address] [place] [address] Cynthia Salinas MD [address] [place] [address] [address] [place] [address] documented as of this encounter Visit Diagnoses Not on filedocumented in this encounter Care Teams Portfolio Strategist Relationship Specialty Start Date End Date Kit Burch MD [address] [place] [address] [address] [place] [phone] PCP - General 01/15/18 10/29/23 documented as of this encounter
--- OUTSIDE RECORDS SUMMARY | 2024-03-03 01:20 | XMS_ITS | Encounter Summary ---
Author Organization [facility] Address [address] [place] [address] Care Team Providers Care Market Development Director Name Role Phone Kit Burch MD Primary Care Provider [phone] Reason for Referral * Cardiology (Routine) - New Request Specialty Diagnoses / Procedures Referred By Contac t Referred To Contact Diagnoses Moderate aortic stenosis Procedures LEFT HEART CATH Tyrell Vogt MD Referral ID Status Reason Start Date Expiration Date V isits Requested Visits Authorized [id number] New Request 01/19/2018 1 1 * Radiology Services (Routine) - New Request Specialty Diagnoses / Procedures Referred By Contac t Referred To Contact Diagnoses Moderate aortic stenosis Procedures CHEST PA AND LATERAL Tyrell Vogt MD Referral ID Status Reason Start Date Expiration Date V isits Requested Visits Authorized [id number] New Request 01/19/2018 1 1 Reason for Visit * Reason Comments New Patient Visit Here for consult. * Consult, Test and Treat (Routine) - Closed Specialty Diagnoses / Procedures Referred By Contac t Referred To Contact Cardiothoracic Surgery Diagnoses Nonrheumatic aortic (valve) stenosis Santo De Dios MD Leavitt, Bruce Jason, MD Referral ID Status Reason Start Date Expiration Date Visits Re quested Visits Authorized [id number] Closed 1 1 Encounter Details Date Type Department Care Team (Latest Contact Info) Description 01/19/2018 8:30 EDT Office Visit [facility] Cardiothoracic Surgery - Main [place] [address], [place] [address] Tyrell Vogt MD Moderate aortic stenosis (Primary Dx) Discharge Disposition: Auto Discharge Social [...] Sign Reading Time Taken Comments Blood Pressure 114/64 01/19/2018 0853 EDT Pulse 76 01/19/2018 0853 EDT Temperature - - Respiratory Rate 12 01/19/2018 0853 EDT Oxygen Saturation - - Inhaled Oxygen Concentration - - Weight 86.6 kg (191 lb) 01/19/2018 0853 EDT Height 144.8 cm (4' 9) 01/19/2018 0853 EDT Body Mass Index 41.33 01/19/2018 0853 EDT documented in this encounter Discharge Diagnoses Diagnosis Z01.818 Encounter for other preprocedural examination-Z01.818[ICD-10-CM] I35.0 Nonrheumatic aortic (valve) stenosis-I35.0[ICD-10-CM] documented in this encounter Patient Instructions * Patient Instructions* Sharla Clements RN - 01/19/2018 8:[address] Vogt, you will need a cardiac cath here at [facility]. We will notify you of the date and time. Your surgery is tentatively scheduled for Thursday February 15, 2018 @ 7:25AM. Our plan is to do your pre-op teaching in the Cardiovascular Unit after the cath. Please get your chest x-Ray today. An order has been placed. documented in this encounter Discharge Disposition Disposition Code Departure Means Destination Auto Discharge documented in this encounter Progress Notes * Tyrell Vogt MD - 01/19/2018 0830 EDT Cardiothoracic Surgery Consult Chief Complaint: Sob, fatigue HPI: Our service was asked by Dr. De Dios to consult on Liya Anders for consideration of cardiac surgery. The patient is a 72 y.o.female who presents with a history of progressive SOB/JONES for 2 years or so. She also has severe fatigue over the same time. A recent echo showed moderate to severe aortic stenosis. Because of the aortic stenosis, SOB and fatigue, I was asked to consult on the patient for consideration of aortic valve replacement. Past Medical History/ Risk Factors [x ] HTN [ x] Hyperlipoproteinemia [ ] GERD [x ]Cardiac Family History [ ] Diabetes Mellitus [ ] Cardiac Family History [ ] COPD [ ] Atrial fibrillation [ ] Alcohol abuse [ ] CHF [ ] Tobacco Past Medical History: Diagnosis Date ??? Aortic stenosis ??? Depression ??? Endometrial cancer (HCC-CMS) ??? Hyperlipidemia ??? Hypertension ??? Hypothyroid ??? CINTHIA (obstructive sleep apnea) Past Surgical History: Past Surgical History: Procedure Laterality Date ??? SHAWNEE AND BSO age 27 ??? TOTAL KNEE ARTHROPLASTY Bilateral ??? WRIST SURGERY Medications: Current Outpatient Prescriptions: Aloe Vera 25 mg capsule ascorbic acid, [...] mg capsule levothyroxine (SYNTHROID) 125 mcg tablet lisinopril (PRINIVIL, ZESTRIL) 20 mg tablet mv-min/iron/folic/calcium/vitK (WOMEN'S MULTIVITAMIN ORAL) sertraline (ZOLOFT) 100 mg tablet simvastatin (ZOCOR) 20 mg tablet tocopheryl acetate (VITAMIN E) 200 unit capsule traMADol (ULTRAM) 50 mg tablet Zinc Acetate, Oral, 50 mg (zinc) capsule No current facility-administered medications for this visit. Family History: Family History Problem Relation Age of Onset ??? Heart Disease Mother Allergies: Review of patient's allergies indicates no known allergies. SH: Social History Social History ??? Marital status: Spouse name: N/A ??? Number of children: N/A ??? Years of education: N/A Occupational History ??? Not on file. Social History Main Topics ??? Smoking status: Former Smoker Types: Cigarettes Start date: 07/27/1961 Quit date: 07/27/1962 ??? Smokeless tobacco: Never Used ??? Alcohol use Not on file Comment: 2-3 week ??? Drug use: Not on file ??? Sexual activity: Not on file Other Topics Concern ??? Not on file Social History Narrative ??? No narrative on file ROS: General: negative Psychological: negative Ophthalmic: negative ENT: negative Allergy and Immunology: negative Hematological and Lymphatic: negative Endocrine: negative Breast: negative Respiratory: positive for - shortness of breath Cardiovascular: positive for - dyspnea on exertion and shortness of breath Gastrointestinal: negative Genito-Urinary: negative Musculoskeletal: bilateral TKR Neurological: negative Dermatological: negative OBJECTIVE: VS: Blood pressure 114/64, pulse 76, resp. rate 12, height (!) 144.8 cm (57), weight 86.6 kg (191 lb). Gen: awake, alert, NAD Neck: soft, no thyromegaly, no carotid bruits, no cervical lymphadenopathy CV: RRR, 3/6 systolic Pulm: CTA bilat, no wheezes or rhonchi Abd: soft, nontender, nondistended, +bowel sounds Ext: warm, well perfused,no edema, Bilateral LE varicosities Pulses: Right Pulses: DP 2 +; PT 2 +; RAD 2 +; Left Pulses: DP 2 +; PT 2 +; RAD 2 +; Skin Warm, dry, no obvious lesions Neuro Awake, alert, oriented X3, normal exam Psych Awake, alert, oriented X3, normal exam Ambulates without difficulty Labs: No results found for: WBC, HGB, HCT, PLT, NA, K, CL, CO2, BUN, CREATININE, BNP CXR: ordered/pending ECHO 11/23/17 tobin: 1) mild LVH, 2) EF 65%, 3) mild AI, 4) moderate to severe with AVarea 1.0 cm2, mean gradient 35 mm Hg Cardiac catheterization: ordered/pending Old cardiac cath mentioned in documentation from 2016 stating no obstructive CAD, no report available, pt. States she thinks it was here, no report, not in imaging system I personally reviewed the above noted laboratory and cardiologic images. STS Prediction Calculation Procedure: AV Replacement Risk of Mortality: 1.236% Morbidity or Mortality: 9.991% Long Length of Stay: 3.462% Short Length of Stay: 49.166% Permanent Stroke: 1.223% Prolonged Ventilation: 5.75% DSW Infection: 0.178% Renal Failure: 1.7% Reoperation: 5.57% ASSESSMENT: It is my opinion that Liya Anders is a candidate for cardiac surgery. I would plan on performinga conventional Aortic Valve Replacement with a perceval valve. We discussed the risks and benefits of surgery as well as the possibility of going to a subacute rehab for a short period of time for recovery after surgery. She will require a cardiac catheterization prior to surgery to finish her pre-o perative work-up. The patient has severe LE varicosities, so if there was a flow limiting coronary artery stenosis, then I would ask the fish flipper to place a stent at the time of her cardiac catheterization. The STS risk calculator was discussed with the patient and her mortality is 1.236% and the mortality and morbidity is 9.991% PLAN: 1. Routine pre-operative workup in place, cardiac catheterization ordered (if there was a flow limiting coronary artery stenosis, then I would ask the fish flipper to place a stent at the time of hercardiac catheterization). 2. To OR on 02/15 for aortic valve replacement (perceval - bovine) . Tyrell Vogt MD documented in this encounter Plan of Treatment Upcoming Encounters Date Type Department Care Team (Late st Contact Info) Description 03/08/2025 11:[address] [facility] Dermatology [address] [place] [address] Cynthia Salinas MD [address] [place] [address], [address] [place] [address] documented as of this encounter Procedures Procedure Name Priority Date/Time Associated Diagnosis Comments LEFT HEART CATH Routine 02/08/2018 13:48 EDT Moderate aortic stenosis CHEST PA AND LATERAL Routine 01/19/2018 10:14 EDT Moderate aortic stenosis documented in this encounter Results * LEFT HEART CATH (02/08/2018 13:48 EDT) Anatomical Region Laterality Modality Other 02/08/2018 13:4 8 EDT Narrative 02/10/2018 9:44 EDT Cardiology [address] [place] [id number] Catheterization Laboratory Study Patient: Liya Anders ?Study Date: ? 02/08/2018 ? Accession #: ?[id number] : ? 1945 Referring: Kit Burch MD Diagnostic Attending: ??Yonatan Arellano Interventional Attending: ?? Yonatan Arellano Diagnostic Fellow: Adamaris Gu MD Diagnostic Fellow: Mynor Harrell MD ATTESTATION: I, Dr. Adamaris Gu was the initial author of this report. Dr. Yonatan Arellano was present and supervising for the entire procedure. I, Dr. Yonatan Arellano have reviewed and agreed with the findings of this report. PROCEDURE PLAN: A diagnostic study was performed without intervention. RESEARCH STUDY: Patient is not enrolled in any research studies. SUMMARY: 1. HPI and indications: Aortic stenosis. 2. Coronary arteries: Left subclavian angio for pre-CABG evaluation ?? shows a large WALTERS. 3. LAD: Mid-vessel lesion: There is an 80% stenosis. 4. Right coronary: Mid-vessel lesion: There is a 50% stenosis. 5. Left internal mammary: Normal, well visualized. Normal-sized vessel. HISTORY: Aortic stenosis. ??Risk factors: ??Hypertension. Obese. Dyslipidemia. Allergies: ??No known allergies. LABS, PRIOR TESTS, PROCEDURES AND SURGERY: Serum creatinine (current admission) of 0.7 mg/dl. ??Hematocrit of 38.4 %. ??Platelet count of 243 th/ul. ??Serum potassium (K) of 4 mEq/l. ??Blood urea nitrogen of 15 mg/dl. ??Hemoglobin (pre-procedure) of 13.1 g/dl. International normalized ratio (INR) of 1. STUDY DATA: Study status: ??Cardiac cath: elective. ??Patient status: ??Outpatient. Location: ??Catheterization laboratory. Sex: female. Patient is 72yr old. Height: 144.8cm. Weight: 84.4kg. BSA: 1.89m^2. Procedures performed: ?Right femoral artery access. ?Right common femoral angiography. ?Left coronary angiography. ?Right coronary angiography. ANESTHESIA: Conscious sedation by cardiology staff. PROCEDURE: 1. ??Initial setup. The patient was brought to the laboratory in the ?fasting state. A baseline ECG was recorded. Surface ECG leads, ?automatic cuff blood pressure measurements, and pulse oximetric ?signals were monitored. 2. ??Skin preparation. The planned puncture sites were prepped with ?chlorhexidine and draped in the usual sterile manner. 3. ??Local anesthesia. Using 2% Lidocaine, local anesthetic was ?administered to the access site(s). 4. ??Right femoral artery access. A 4 Fr Micropuncture Access Kit - Stiff ?sheath was advanced into the vessel. 5. ??Selective right common femoral angiography, under fluoroscopic ?guidance. A catheter was advanced into the right common femoral ?artery. Contrast was injected by hand. Images were obtained. 6. ??Sheath exchange. The right femoral artery sheath was exchanged for a ?[address] [place] ACT Ultimum sheath. 7. ??Selective left coronary angiography. A 5F FL4 catheter was advanced ?into the left coronary vessel ostium under fluoroscopic guidance. ?Contrast was injected. Images were obtained in multiple projections. 8. ??Selective right coronary angiography. A 5F AR Mod catheter was ?advanced into the right coronary vessel ostium under fluoroscopic ?guidance. Contrast was injected. Images were obtained in multiple ?projections. 9. ??Right femoral artery hemostasis. 6 FR Angioseal VIP was used at the ?access site. 10. Right radial artery hemostasis. Mechanical compression was applied. STUDY COMPLETION: The estimated blood loss was 10ml. All catheters inserted during the procedure were removed. The patient tolerated the procedure well and was discharged from the lab. There were no complications. ??Fluoroscopy time: 3.5min. ??Fluoroscopy dose: ??15.3cGy. CORONARY ARTERIES: Left subclavian angio for pre-CABG evaluation shows a large WALTERS. The coronary circulation is right dominant. Left main: ??Minor luminal irregularities. Mild narrowing of the distal left main. LAD: ??Minor luminal irregularities. ??Mid-vessel lesion: There is an 80% stenosis. Left circumflex: ??Mid-vessel lesion: There is a 30% stenosis. Right coronary: ??Mid-vessel lesion: There is a 50% stenosis. SUBCLAVIAN ARTERIES: Left internal mammary: ??Normal, well visualized. Normal-sized vessel. HEMODYNAMICS: + + + Stage description ? Condition1:Condition 1 - + + + Arterial pressure s/d (m) 114/55 (81) ? + + + * Electronically signed by Yonatan Arellano MD 2018-02-10 09:44 Procedure Note Yonatan Arellano MD - 02/10/[address] [place] [address] Catheterization Laboratory Study Patient: Liya Anders Study Date: 02/08/2018 : 1945 Referring: Kit Burch MD Diagnostic Attending: Yonatan Arellano Interventional Attending: Yonatan Arellano Diagnostic Fellow: Adamaris Gu MD Diagnostic Fellow: Mynor Harrell MD ATTESTATION: IDr. Adamaris was the initial author of this report. Dr. Yonatan Arellano was present and supervising for the entire procedure. I, Dr. Yonatan Arellano have reviewed and agreed with the findings of this report. PROCEDURE PLAN: A diagnostic study was performed without intervention. RESEARCH STUDY: Patient is not enrolled in any research studies. SUMMARY: 1. HPI and indications: Aortic stenosis. 2. Coronary arteries: Left subclavian angio for pre-CABG evaluation shows a large WALTERS. 3. LAD: Mid-vessel lesion: There is an 80% stenosis. 4. Right coronary: Mid-vessel lesion: There is a 50% stenosis. 5. Left internal mammary: Normal, well visualized. Normal-sized vessel. HISTORY: Aortic stenosis. Risk factors: Hypertension. Obese. Dyslipidemia. Allergies: No known allergies. LABS, PRIOR TESTS, PROCEDURES AND SURGERY: Serum creatinine (current admission) of 0.7 mg/dl. Hematocrit of 38.4 %. Platelet count of 243 th/ul. Serum potassium (K) of 4 mEq/l. Blood urea nitrogen of 15 mg/dl. Hemoglobin (pre-procedure) of 13.1 g/dl. International normalized ratio (INR) of 1. STUDY DATA: Study status: Cardiac cath: elective. Patient status: Outpatient. Location: Catheterization laboratory. Sex: female. Patient is 72yr old. Height: 144.8cm. Weight: 84.4kg. BSA: 1.89m^2. Procedures performed: Right femoral artery access. Right common femoral angiography. Left coronary angiography. Right coronary angiography. ANESTHESIA: Conscious sedation by cardiology staff. PROCEDURE: 1. Initial setup. The patient was brought to the laboratory in the fasting state. A baseline ECG was recorded. Surface ECG leads, automatic cuff blood pressure measurements, and pulse oximetric signals were monitored. 2. Skin preparation. The planned puncture sites were prepped with chlorhexidine and draped in the usual sterile manner. 3. Local anesthesia. Using 2% Lidocaine, local anesthetic was administered to the access site(s). 4. Right femoral artery access. A 4 Fr Micropuncture Access Kit - Stiff sheath was advanced into the vessel. 5. Selective right common femoral angiography, under fluoroscopic guidance. A catheter was advanced into the right common femoral artery. Contrast was injected by hand. Images were obtained. 6. Sheath exchange. The right femoral artery sheath was exchanged for a [address] [place] ACT Ultimum sheath. 7. Selective left coronary angiography. A 5F FL4 catheter was advanced into the left coronary vessel ostium under fluoroscopic guidance. Contrast was injected. Images were obtained in multiple projections. 8. Selective right coronary angiography. A 5F AR Mod catheter was advanced into the right coronary vessel ostium under fluoroscopic guidance. Contrast was injected. Images were obtained in multiple projections. 9. Right femoral artery hemostasis. 6 FR Angioseal VIP was used at the access site. 10. Right radial artery hemostasis. Mechanical compression was applied. STUDY COMPLETION: The estimated blood loss was 10ml. All catheters inserted during the procedure were removed. The patient tolerated the procedure well and was discharged from the lab. There were no complications. Fluoroscopy time: 3.5min. Fluoroscopy dose: 15.3cGy. CORONARY ARTERIES: Left subclavian angio for pre-CABG evaluation shows a large WALTERS. The coronary circulation is right dominant. Left main: Minor luminal irregularities. Mild narrowing of the distal left main. LAD: Minor luminal irregularities. Mid-vessel lesion: There is an 80% stenosis. Left circumflex: Mid-vessel lesion: There is a 30% stenosis. Right coronary: Mid-vessel lesion: There is a 50% stenosis. SUBCLAVIAN ARTERIES: Left internal mammary: Normal, well visualized. Normal-sized vessel. HEMODYNAMICS: + + + Stage description Condition1:Condition 1 - + + + Arterial pressure s/d (m) 114/55 (81) + + + * Electronically signed by Yonatan Arellano MD 2018-02-10 09:44 Tyrell Vogt MD CARDIAC CATH [facility]DO [facility]ZA * CHEST PA AND LATERAL (01/19/2018 10:14 EDT) Anatomical Region Laterality Modality Other 01/19/2018 10:1 4 EDT 01/19/2018 10:21 EDT Narrative 01/19/2018 10:21 EDT CHEST 2 VIEWS ??01/19/2018 10:14 AM Clinical History/Comments: I35.0-Nonrheumatic aortic (valve) [id number]; mod-severe , pre-op AVR COMPARISON: None Findings: PA and lateral views of the chest and dual technique show lungs grossly clear. Heart and mediastinal contours without significant finding. Moderate degenerative changes of the thoracic spine noted, no compression deformities. No consolidation, pulmonary vascular congestion or pleural effusion. IMPRESSION: Satisfactory preoperative chest radiographs. Procedure Note Aiden Thakkar MD - 01/19/2018 CHEST 2 VIEWS 01/19/2018 10:14 AM Clinical History/Comments: I35.0-Nonrheumatic aortic (valve) [id number]; mod-severe , pre-op AVR COMPARISON: None Findings: PA and lateral views of the chest and dual technique show lungs grossly clear. Heart and mediastinal contours without significant finding. Moderate degenerative changes of the thoracic spine noted, no compression deformities. No consolidation, pulmonary vascular congestion or pleural effusion. IMPRESSION: Satisfactory preoperative chest radiographs. Tyrell Vogt MD IMG DIAGNOSTIC IM AGING ORDERABLES documented in this encounter Visit Diagnoses Diagnosis Moderate aortic stenosis- Primary Aortic valve disorders documented in this encounter Historical Medications * This list may reflect changes made after this encounter. Medication Sig Dispensed Refills Start Date End Date sertraline (ZOLOFT) 100 mg tablet Take 1 Tablet by mouth daily. furosemide (LASIX) 20 mg tablet Take 1 Tablet by mouth 2 times daily. simvastatin (ZOCOR) 20 mg tablet Take 1 Tablet by mouth daily. cyanocobalamin (VITAMIN B-12) 100 mcg tablet Take 1 Tablet by mouth daily. calcium carbonate (TUMS) 200 mg calcium (500 mg) tablet,chewable Take 1 Tablet by mouth 4 times daily as needed. ascorbic acid, vitamin C, (VITAMIN C) 500 mg tablet Take 1 Tablet by mouth daily. aspirin chewable 81 mg tablet Take 1 Tablet by mouth daily. chrm/vineg/bit-orang peel/gr t (APPLE CIDER VINEGAR PLUS ORAL) Take 2 Tablets by mouth daily. krill oil 500 mg capsule Take by mouth daily. tocopheryl acetate (VITAMIN E) 200 unit capsule Take 1 Capsule by mouth daily. Zinc Acetate, Oral, 50 mg (zinc) capsule Take by mouth. calcium/magnesium (CALCIUM AND MAGNESIUM ORAL) Take by mouth daily. levothyroxine (SYNTHROID) 125 mcg tablet Take 1 Tablet by mouth daily. 10/30/2023 lisinopril (PRINIVIL, ZESTRIL) 20 mg tablet Take 20 mg by mouth daily. 02/27/2018 traMADol (ULTRAM) 50 mg tablet Take 50 mg by mouth every 6 hours as needed for Pain. 02/27/2018 coconut oil 1,000 mg capsule Take by mouth. 10/30/2023 Aloe Vera 25 mg capsule Take by mouth. Cinnamon Bark 500 mg capsule Take by mouth. 10/30/2023 mv-min/iron/folic/calcium /vitK (WOMEN'S MULTIVITAMIN ORAL) Take by mouth. 018 cranberry fruit extract (CRANBERRY ORAL) Take by mouth. 4 added in this encounter Care Teams Market Development Director Relationship Specialty Start Date End Date Kit Burch MD [facility] [employer] [address] [address] PCP - General 01/15/18 10/29/23 documented as of this encounter
--- OUTSIDE RECORDS SUMMARY | 2024-03-03 01:20 | XMS_ITS | Encounter Summary ---
Author Organization [facility] Address [address] [place] [address] Care Team Providers Care Fuel Storage Technician Name Role Phone Kit Burch MD Primary Care Provider [phone] Encounter Details Date Type Department Care Team (Late st Contact Info) Description 02/08/[address] [facility] Cardiothoracic Surgery - [address] [id number] Tyrell Vogt MD Social History Tobacco Use Types Packs/Day Years [...] [facility] Dermatology [address] [place] [address] Cynthia Salinas MD [address] [place] [address] [address] [place] [id number] documented as of this encounter Procedures Procedure Name Priority Date/Time Associated Diagnosis Comments PREPARE RED BLOOD CELLS Routine 02/08/2018 16:28 EDT PREPARE RED BLOOD CELLS Routine 02/08/2018 16:28 EDT TYPE AND SCREEN Routine 02/08/2018 14:54 EDT documented in this encounter Results * PREPARE RED BLOOD CELLS (02/08/2018 16:28 EDT) Product Code [id number] [facility]LO[facility] Donor Number [id number] [facility]LOOD [facility] Unit ABO O [facility] Unit Rh POS [facility] Unit Status RE^Released From [facility] BLOOD BANK Product Expiration Date [id number] [facility] Unit Blood Type Code 5100 [facility] Coding System [id number] [facility] 02/08/2018 16:2 8 EDT Tyrell Vogt MD BLOOD BANK ORDERA BLES [facility] BLOOD [facility] * PREPARE RED BLOOD CELLS (02/08/2018 16:28 EDT) Product Code [id number] [facility]LOOD [facility] Donor Number [id number] [facility] BLOOD BANK Unit ABO O [facility] Unit Rh POS [facility]LOOD [facility] Unit Status RE^Released From [facility] BLOOD BANK Product Expiration Date [id number] [facility] BLOOD [facility] Unit Blood Type Code 5100 [facility]OD [facility] Coding System [id number] [facility] 02/08/2018 16:2 8 EDT Tyrell Vogt MD BLOOD BANK ORDERA BLES [facility] BLOOD [facility] * TYPE AND SCREEN (02/08/2018 14:54 EDT) Antibody Screen Negative [facility]LOOD [facility] Specimen Expires: 02/25/2018 @ 23:59 [facility]LOOD [facility] ABO O [facility]LOOD [facility] Rh Factor Positive [facility] 02/08/2018 14:5 4 EDT Tyrell Vogt MD BLOOD BANK TESTS [facility]OD [facility] documented in this encounter Visit Diagnoses Not on filedocumented in this encounter Care Teams Fuel Storage Technician Relationship Specialty Start Date End Date Kit Burch MD [facility] [address] [place] [address] PCP - General 01/15/18 10/29/23 documented as of this encounter
--- OUTSIDE RECORDS SUMMARY | 2024-03-03 01:20 | XMS_ITS | Encounter Summary ---
Author Organization [facility] Address [address] [place] [address] Care Team Providers Care Coin Machine Servicer Repairer Name Role Phone Jewel Fontenot MD Primary Care Provider +1- [phone] Encounter Details Date Type Department Care Team (Late st Contact Info) Description 11/23/2017 Results Only Imaging [facility] [phone] Unknown, Provider, Social History Tobacco Use Types [...] Info) Description 03/08/2025 11:00 EDT Office Visit [facility] [place] [address] [place] [id number] Cynthia Salinas MD [address] [place] [address] [address] [place] [address] documented as of this encounter Procedures Procedure Name Priority Date/Time Associated Diagnosis Comments OUTSIDE IMAGES ? ECHO IMAGES 11/23/2017 13:38 EDT documented in this encounter Results * OUTSIDE IMAGES ??? ECHO IMAGES (11/23/2017 13:38 EDT) Anatomical Region Laterality Modality Other 11/23/2017 13:3 8 EDT Narrative 11/23/2017 13:38 EDT This is an outside study - there is no report. 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 Provider Unknown MD ADKINS OTHER IMAGING OR DERABLES documented in this encounter Visit Diagnoses Not on filedocumented in this encounter Care Teams Coin Machine Servicer Repairer Relationship Specialty Start Date End Date Jewel Fontenot MD [address] [place] [address] [address] [place] [phone] PCP - General 06/01/15 01/14/18 documented as of this encounter
--- OUTSIDE RECORDS SUMMARY | 2024-03-03 01:20 | XMS_ITS | Encounter Summary ---
Author Organization [facility] Address [address] [place] [address] Care Team Providers Care Grocery Store Associate Name Role Phone Jewel Fontenot MD Primary Care Provider [phone]- [phone] Encounter Details Date Type Department Care Team (Late st Contact Info) Description 12/28/2017 Results Only Imaging [facility] Cardiothoracic Surgery - [address] [id number] Tyrell Vogt MD Social History Tobacco Use [...] Info) Description 03/08/2025 11:00 EDT Office Visit [facility] [place] [address] [place] [address] Cynthia Salinas MD [address] [facility], [facility] [address] [place] [phone] documented as of this encounter Visit Diagnoses Not on filedocumented in this encounter Care Teams Grocery Store Associate Relationship Specialty Start Date End Date Jewel Fontenot MD [address] [place] [address] [address] [place] [address] PCP - General 06/01/15 01/14/18 documented as of this encounter
--- OUTSIDE RECORDS SUMMARY | 2024-03-03 01:20 | XMS_ITS | Encounter Summary ---
Author Organization [facility] Address [address] [place] [address] Care Team Providers Care Plumber And Tinner Name Role Phone Unavailable Primary Care Provider Unavailabl e Encounter Details Date Type Department Care Team (Late st Contact Info) Description 06/09/2006 Results Only [facility] [address] [place] [address] Unknown, Provider, Social History Tobacco Use Types [...] Info) Description 03/08/2025 11:00 EDT Office Visit [facility] Dermatology [address] [place] [phone] Cynthia Salinas MD [address] [facility], [facility] [address] [place] [phone] documented as of this encounter Procedures Procedure Name Priority Date/Time Associated Diagnosis Comments VITAMIN B12 Routine 06/09/2006 7:53 EST documented in this encounter Results * VITAMIN B12 (06/09/2006 7:53 EST) Vitamin B-12 492 250 - 1100 pg/ml [facility] 06/09/2006 7:53 EST 06/09/2006 21:56 EST Provider Unknown CHEMISTRY & BLOOD GA S ORDERABLES Performing Organization Address City/State/[facility] Co de Phone Number [facility] [address] [place] [address] documented in this encounter Visit Diagnoses Not on filedocumented in this encounter
--- OUTSIDE RECORDS SUMMARY | 2024-03-03 01:20 | XMS_ITS | Encounter Summary ---
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, unspecified vessel or lesion type (HCC-CMS) (Primary Dx); Nonrheumatic aortic valve stenosis Discharge Disposition: Home or Self Care Social [...] Sign Reading Time Taken Comments Blood Pressure 137/58 02/08/2018 1429 EDT Pulse - - Temperature 37.2 ??C (99 ??F) 02/08/2018 1425 EDT Respiratory Rate 16 02/08/2018 1425 EDT Oxygen Saturation 95% 02/08/2018 1429 EDT Inhaled Oxygen Concentration - - Weight 84.4 kg (186 lb) 02/08/2018 0945 EDT Height 144.8 cm (4' 9) 02/08/2018 0945 EDT Body Mass Index 40.25 02/08/2018 0945 EDT documented in this encounter Discharge Diagnoses Diagnosis I35.0 Nonrheumatic aortic (valve) stenosis-I35.0[ICD-10-CM] I10 Essential (primary) hypertension-I10[ICD-10-CM] E66.9 Obesity, unspecified-E66.9[ICD-10-CM] E78.5 Hyperlipidemia, unspecified-E78.5[ICD-10-CM] R93.1 Abnormal findings on diagnostic imaging of heart and coronary circulation-R93.1[ICD-10-CM] documented in this encounter Discharge Instructions * Discharge Instructions* Keely Luciano RN - 02/08/2018 13:09 EDT Diagnostic Cardiovascular Catheterization Discharge Instructions Department of Cardiology Troy Silva, your Procedure was performed by Dr. Arellano . You have had a Cardiovascular Catheterization performed through a small incision in the artery in your right femoral artery, and attempted right radial artery . Your artery was closed using the following method: angioseal to the femoral and tr band to the radial Care of your Incision: For your right groin and right wrist incision, keep the area clean & dry. Leave the sterile dressing in place for 24 hours. After this you may shower but no tub baths, swimming, or hot tubs for 5days. You may remove your dressing the next day in the shower & wash area gently. (It is best to soak the dressing off with water in the shower. ) Apply a sterile bandage such as a Band Aid to the site after your shower daily until the site heals. DO NOT apply powder or lotion or antibiotic ointment to this area. Activity: Unless your physician instructs you otherwise, continue to drink a lot of fluids for the next 24 hours to flush the dye out of your system. Avoid Driving x 24 hours. For LEG incisions, avoid climbing multiple flights of stairs and other activity that involves a lotof leg bending for 48-72 hours, particularly for the first 24 hours. If you had an ARM approach, Keep your arm comfortably straight for the first 24 hours and AVOID Bending or Lifting with your ARM for 48-72 hours. No Heavy lifting (>10 pounds) for one week. Normal Observations: Soreness or tenderness at the site that may last one week. Bruising that could last 2 weeks. Formation of a small lump (dime to quarter size) which may last up to 6 weeks. Call your Physician immediately if you experience any of the following: Fever (temp >101), swelling, redness or signs of infection (including yellow discharge). Persistent and increasing pain at the site of the wound, in your extremity or your back. Numbness or tingling at a point below the wound Skin Rash If you have not been able to Urinate within 24 hours of the procedure. *If you note any signs of bleeding, such as bulging under the skin (size of a golf ball or larger)put Direct Pressure on the area and Call your Doctor immediately.If bleeding persists after 10 minutes with pressure held call 911. *Please make a follow-up appointment with your Primary Care Physician 2 weeks after your Cardiac Catheterization was performed. YOUR PRE-ANESTHESIA TELEPHONE CALL IS ON FEBRUARY 15 BETWEEN 1:45 AND 2:15 PLEASE TRY TO BE AT YOUR HOME WHEN THIS CALL COMES IN. documented in this encounter Medications at Time of Discharge Medication Sig Dispensed Refills Start Date End Date acetaminophen (TYLENOL) 500 mg tablet Take 2 Tabs by mouth every 6 hours. 02/27/2018 ascorbic acid, vitamin C, (VITAMIN C) 500 mg tablet Take 1 Tablet by mouth daily. aspirin chewable 81 mg tablet Take 1 Tablet by mouth daily. calcium carbonate (TUMS) 200 mg calcium (500 mg) tablet,chewable Take 1 Tablet by mouth 4 times daily as needed. calcium/magnesium (CALCIUM AND MAGNESIUM ORAL) Take by mouth daily. chrm/vineg/bit-orang peel/gr t (APPLE CIDER VINEGAR PLUS ORAL) Take 2 Tablets by mouth daily. cyanocobalamin (VITAMIN B-12) 100 mcg tablet Take 1 Tablet by mouth daily. furosemide (LASIX) 20 mg tablet Take 1 Tablet by mouth 2 times daily. krill oil 500 mg capsule Take by mouth daily. sertraline (ZOLOFT) 100 mg tablet Take 1 Tablet by mouth daily. simvastatin (ZOCOR) 20 mg tablet Take 1 Tablet by mouth daily. tocopheryl acetate (VITAMIN E) 200 unit capsule Take 1 Capsule by mouth daily. Zinc Acetate, Oral, 50 mg (zinc) capsule Take by mouth. Aloe Vera 25 mg capsule Take by mouth. Chlorhexidine Gluconate 2 % liquid Use once daily beginning 5 days prior to surgery if test results positive. The physician's office will call to tell you if you need to fill this prescription. 1 Bottle 02/08/2018 02/15/2018 Cinnamon Bark 500 mg capsule Take by mouth. 10/30/2023 coconut oil 1,000 mg capsule Take by mouth. 10/30/2023 cranberry fruit extract (CRANBERRY ORAL) Take by mouth. docusate sodium (COLACE) 100 mg capsule Take 2 Caps by mouth 2 times daily. 02/27/2018 04/08/2018 levothyroxine (SYNTHROID) 125 mcg tablet Take 1 Tablet by mouth daily. 10/30/2023 lisinopril (PRINIVIL, ZESTRIL) 20 mg tablet Take 20 mg by mouth daily. 02/27/2018 metoprolol tartrate 75 mg tablet Take 75 mg by mouth 2 times daily for 7 days. 14 Tab 02/27/2018 03/06/2018 mupirocin (BACTROBAN) 2 % ointment Apply both nostrils twice a day for 5 days prior to surgery if test results positive. The physician's office will call to tell you if you need to fill this prescription. 22 g 02/08/2018 02/15/2018 potassium chloride SA (K-DUR, KLOR-CON) 10 mEq tablet Take 1 Tab by mouth 2 times daily for 7 days. 14 Tab 02/27/2018 03/06/2018 traMADol (ULTRAM) 50 mg tablet Take 1 Tab by mouth every 6 hours as needed for up to 7 days for Pain. Daily Max: 200 mg 14 Tab 02/27/2018 03/06/2018 traMADol (ULTRAM) 50 mg tablet Take 50 mg by mouth every 6 hours as needed for Pain. 02/27/2018 documented as of this encounter Ordered Prescriptions Prescription Sig Dispensed Refills Start Date End Da te Chlorhexidine Gluconate 2 % liquid Use once daily beginning 5 days prior to surgery if test results positive. The physician's office will call to tell you if you need to fill this prescription. 1 Bottle 02/08/2018 02/15/2018 mupirocin (BACTROBAN) 2 % ointment Apply both nostrils twice a day for 5 days prior to surgery if test results positive. The physician's office will call to tell you if you need to fill this prescription. 22 g 02/08/2018 02/15/2018 documented in this encounter Discharge Disposition Disposition Code Departure Means Destination Home or Self Care documented in this encounter Progress Notes * Keely Luciano, RN - 02/08/2018 1216 EDT Troy Silva arrived to CVU #7 at 1226 via stretcher s/p post left heart cath with rails up, bed position down,and locked. Call wright within patient reach. Alert and oriented x3. IV infusing with nosign of infiltration. Patient denies pain at present. No bleeding noted from right wrist and right groin procedure site. Procedure dressing is clean dry and intact with no sign of hematoma.Patient onCardiac Monitor in nsr.Pedal pulses diminished but palp. Pt educated on importance of keeping rightarm still and straight . Patient taking PO fluids & food at present. Patient 's Family at bedside. Dr. Harrell paged to put orders for TR band in. Tylenol given for 5:10 back pain. 1415- 4 cc removed from tr band - no bleeding noted 1425 oob to br voided, bm Up to chair 1430 5 cc removed from tr band. mrsa swab obtained. LAB OBTAINED 1445 remaining air removed from tr band. No bleeding noted Dr. Arellano in to see the pt. And family. Pt. Now waiting for Hour to pass so she can leave. Dr. Arellano aware of back discomfort But has greatly improved with tylenol- and being oob. Time completed, meets disch criteria. * Jess May RN - 02/08/2018 0936 EDT Troy Silva arrived to the Cardiovascular Unit via hospital wheel chair. Patient alert and oriented x3. Transfers to stretcher independently. Patient greeted and identified per [facility] [[email or web address] medical center policy. Allergies and procedure verified & patient oriented to Unit. Reviewed all pre-procedure instructions with Troy Silva. All questions answered & patient verbalizes willingness and understanding of pre-procedure education. Patient stretcher in low position with side rails up & call wright within patient reach. Patient's daughter is at bedside. * Bella Valdes RN - 02/03/2018 1011 EDT Precardiac Cath Nursing Checklist Recent Labs: No results found for: BUN, CREATININE, HGB, CALCGFR Hgt: Height: (!) 144.8 cm (57) Wgt:Weight : 86.6 kg (191 lb) Allergies: No Known Allergies Local Pharmacy [facility] [facility], [place] - [address] [facility] [id number] Cardiac History: Stress Test? No Reason for Cath: aortic stenosis Pre op AVR Anginal equivalent:: SOB/JONES, fatigue Cardiac Procedures: no Cardiac surgery: no Medical/Surgical History: Patient has a past medical history of Aortic stenosis; Depression; Endometrial cancer ([facility]); Hyperlipidemia; Hypertension; Hypothyroid; and CINTHIA (obstructive sleep apnea). Patient has a past surgical history that includes irasema and bso; Total knee arthroplasty (Bilateral);and Wrist surgery. Chronic Risk Factors: HTN and HLD Smoking and Alcohol intake: reports that she quit smoking about 55 years ago. Her smoking use included Cigarettes. She started smoking about 56 years ago. She has never used smokeless tobacco. Her alcohol history is not on file. History of complications from sedation: No Patient Instructions: Patient Instructed by: Patient instructed by Advanced Testing Nurse Instructions sent to patient by postal mail NPO Instructions: Patient/family instructed to have no solid food after midnight and to stop drinking clear liquids 3 hours prior to registration time. Diabetic Pre procedure Instructions: N/A Shower Instructions: Patient/family instructed to shower the night before or the day of the procedure. Registration location: [facility] Issues: No Patient/family instructed that they will need a designated line haul truck driver if they are discharged on the dayof the procedure. Medications: Medication list: Patient/family instructed to bring medication list with them on the day of the procedure. Anticoagulants/Antiplatelets: Takes Aspirin 81 mg daily Anti-Anginal meds: PAULETTE VALDES RN * Bella Valdes RN - 01/28/2018 1227 EDT Images from the original note were not included. [facility] [address] [place] [id number] Madiha Nickerson, Here is important information regarding your upcoming Cardiac Catheterization procedure. Feel free to call with any questions or concerns. We will ensure we have prior authorization from your insurance company, if needed, for your procedure and notify you if there are any issues. Please make sure you copy and paste this link into your web browser in order to read it. [email or web address] Procedure Date: February 08, 2018 Check in at : 9:15 am Performing Physician: Dr. Arellano Pre-procedure Nursing Instructions Have no solid food or liquids containing fats, including milk, after midnight before your procedure. You may have fat free liquids (clear liquids) until 4 hours before the scheduled time of check in. Fat free clear liquids include water, clear fruit juices (apple or cranberry), carbonated beverages,Jell-O, black or sweetened coffee and tea. 1. On 02/08/2018 Please take your regular morning medications with a small amount of water. 2. On_02/08/2018 Please hold the following medications: ____LASIX 3. Please shower the evening before or the morning of your procedure. 4. Please do not bring any medications with you to the hospital; it is important however to bring an accurate list of the medications you are currently taking. 5. You may need to spend the night in the hospital, so please plan accordingly by bringing an overnight bag with simple items, such as a tooth brush, change of clothes, etc. If you do not need to spend the night, you will be discharged once you have recovered. When you go home you will need a designated line haul truck driver or a responsible adult to accompany you if you are taking public transportation or a cab //We request that you leave any valuables at home unless you are able to hand them over to the support person with you. 6. The pre-registration department will call you 1 to 2 business days before your procedure to verify your address and insurance information. You will still need to stop by registration the day of your procedure. 7. If you use a c-pap during sleep, you can bring it with you in the event you are admitted overnight. When you arrive at the Hospital 1. Park in the underground garage, and take any elevator to the 3rd floor registration. Cassandra Architect parking is also available at the Main Entrance. The registration staff will direct you to the Cardiovascular Unit waiting room. Please check in with the office manager receptionist and they will notify of your arrival. 2. Please request a wheelchair within the lobby if needed. There is a long walk (the length of 2 football alexander) between registration and the cardiovascular unit. We have volunteers available to escort you. 3. When you arrive where you will be prepped for your procedure, the nurse will initiate your pre-procedure admission by reviewing your information, medications, etc. You will also have an intravenous started and possible some blood work drawn. 4. When the procedure is over, the doctor meets with your family/friends to review the results. 5. Your family/friends will go with you to where you will recover and will be allowed to visit whenit is appropriate. We are here to help, so should you need assistance feel free to call anyone listed below with questions. [facility] Cath Shiatsu Therapist - [phone] Shireen Valdes furniture arranger Testing Nurse- [phone] Please make sure you copy and paste this link into your web browser in order to read it Patients & Visitors Information [email or web address] Information [email or web address] documented in this encounter H&P Notes * Mynor Harrell - 02/07/2018 2857 EDT Cardiology H&P Admit Date: 02/08/2018 PCP: Kit Burch CC: [facility] HPI: Troy Silva is a 72 y.o. female with a PMH significant for severe , HLD, HTN, hypothyroidhere for C for preop eval for SAVR. No chest pain, shortness of breath, palpitations. Relevant prior Cardiac Studies: . ROS: Full 10 point system obtained; negative unless indicated in the HPI Past Medical History: Past Medical History: Diagnosis Date ??? Aortic stenosis ??? Depression ??? Endometrial cancer (HCC-CMS) ??? Hyperlipidemia ??? Hypertension ??? Hypothyroid ??? CINTHIA (obstructive sleep apnea) Prior to admission medications Current Outpatient Prescriptions on File Prior to Encounter Medication Sig Dispense Refill ??? Aloe Vera 25 mg capsule Take [...] Take 125 mcg by mouth daily. ??? lisinopril (PRINIVIL, ZESTRIL) 20 mg tablet Take 20 mg by mouth daily. ??? sertraline (ZOLOFT) 100 mg tablet Take 50 mg by mouth daily. ??? simvastatin (ZOCOR) 20 mg tablet Take 20 mg by mouth at bedtime. ??? tocopheryl acetate (VITAMIN E) 200 unit capsule Take 200 Units by mouth daily. ??? traMADol (ULTRAM) 50 mg tablet Take 50 mg by mouth every 6 hours as needed for Pain. ??? Zinc Acetate, Oral, 50 mg (zinc) capsule Take by mouth. No current facility-administered medications on file prior to encounter. Past Surgical History: Reviewed, non-contributory Past Surgical History: Procedure Laterality Date ??? IRASEMA AND BSO age 27 ??? TOTAL KNEE ARTHROPLASTY Bilateral ??? WRIST SURGERY Family History: Reviewed, negative for premature CAD or sudden cardiac Family History Problem Relation Age of Onset ??? Heart Disease Mother Social History: Social History Substance Use Topics ??? Smoking status: Former Smoker Types: Cigarettes Start date: 07/27/1961 Quit date: 07/27/1962 ??? Smokeless tobacco: Never Used ??? Alcohol use Not on file Comment: 2-3 week Allergies: Reviewed No Known Allergies Exam: General appearance: alert, cooperative, no acute distress Mouth: MMM Neck: Supple, symmetrical, trachea midline, JVP not elevated Lungs: Clear to auscultation bilaterally, good air entry, normal respiratory effort CVS: RRR, S1, S2 normal,2/6 systolic murmur Abdomen: obese, soft, non-tender; positive bowel sounds Neurologic:moving all extremities, strength and sensation equal and intact throughout Extremities: extremities warm, atraumatic, no cyanosis or edema, 2+ DP pulses bilaterally. Barbeau B radial pulse. Data review: EKG: reviewed Labs: Reviewed BMP: No results for input(s): NA, K, CL, CO2, BUN, CREATININE, MG, PHOS, CALCIUM, CALCCA, CAION, SERGLU in the last 72 hours. Angina CCS Classification: 0 Anti-Anginal Medications:none Cardiomyopathy: no Heart Failure: no Aortic stenosis: yes IV Contrast Allergy: N Cr (GFR): nl No known PAD Diabetes: no ASA Class: 2 Clopidogrel: no Anticoagulation: no Assessmen: Troy Silva is a 72 y.o. female with a PMH significant for severe , HLD, HTN, hypothyroid here for [facility] for preop eval for SAVR Plan: Left heart catheterization to evaluate coronary anatomy and hemodynamics No noted contra-indications to LHC or YANIRA PCI Mynor Harrell, PGY-4 Squaring Machine Operator Associated attestation - Yonatan Arellano MD - 02/08/2018 1214 EDT I have personally seen and examined the patient and reviewed the attached note and agree with the general findings unless noted otherwise. Yonatan Arellano MD Cardiology Attending documented in this encounter Procedure Notes * Yonatan Arellano MD - 02/08/2018 1214 EDT Dear Doctors Troy Silva came to cardiac catheterization today in the setting of her progressive aortic valvestenosis. Her preliminary catheterization report is below. In summary she has mild left main and circumflex disease. The LAD has some severe mid vessel narrowing in the right coronary artery has a borderline mid vessel stenosis. I will be reviewing her anatomy with the CT surgery team we will make further decisions about an approach to revascularization and aortic valve replacement. Thank you Yonatan Arellano MD Cardiovascular Catheterization Laboratory Preliminary Report -- Catheterization Date of Service/Procedure: 02/08/2018 Attending Physician: Yonatan Arellano MD Fellow: Adamaris Gu MD and Freddy Harrell MD Pre-Procedure Diagnosis /NCDR Indication: Troy Silva is a 72 y.o. year old female with valvulardisease. Chest Pain Symptom Assessment: Typical Angina CHSA Clinical Frailty Scale: 3: Managing Well Prior Stress Testing? No Anesthesia: A moderate level of anesthesia/conscious sedation was used in addition to local anesthesia. Access: Right femoral artery. Attempts at rt radial access showed good entry to the artery but no wire could advance beyond approx 7 cm. Procedure: She was brought to [facility] Cardiac Catheterization Laboratory for the procedure: Diagnostic coronary/graft angiography and angio of left subclavian. Closure: Angioseal and TR Band Post-Procedure Condition: The condition of the patient was Fair. Complications: None. IV Contrast Total: 85 mL X-ray Dose: mGy Estimated Blood Loss: Minimal. Unless otherwise noted,there were no specimens removed, cultures obtained, or drains retained. Research Study: Patient is not enrolled in a research study. Diagnostic Cardiac Study Results Left main: mild narrowing Left anterior descending: mid 80%, diffuse mild prox Left circumflex: Mid 30% Right coronary artery: dominant, mid 50% Grafts: n/a Left subclavian angio shows a large WALTERS Left Ventriculography and Hemodynamic Results None Endovascular Study Results See above re subclavian angio and demonstration of large WALTERS Will review with CT surgery options for CABG at the time of possible AVR versus return for PCI. Will review with family Yonatan Arellano MD PagerNumber: [phone] 02/08/2018 12:14 documented in this encounter Consult Notes * Tyrell Vogt MD - 02/08/2018 4161 EDT Cardiothoracic Surgery Consult Chief Complaint: Shortness of breath and tiredness HPI: Our service was asked by Dr. De Dios to consult on Troy Francisco Silva for consideration of cardiac surgery. The patient is a 72 y.o.female who presents with a history of PROGRESSIVE shortness of breath dyspnea on exertion and tiredness. I saw the patient a couple of weeks ago. Aortic valve replacement was recommended. She had a cardiac catheterization today by Dr. Arellano which showed a hemodynamically significant lesion in her left anterior descending coronary artery. Therefore I am seeing her today for a preoperative history and physical examination for planned aortic valve surgery and coronary artery bypass grafting.. ?? Past Medical History/ Risk Factors [ ] HTN [ ] Hyperlipoproteinemia [ ] GERD[ ] Cardiac Family History [ ] Diabetes Mellitus [ ] Cardiac Family History [ ] COPD [ ] Atrial fibrillation [ ] Alcohol abuse [ ] CHF [ ] Tobacco Past Medical History: Diagnosis Date ??? Aortic stenosis ??? Depression ??? Endometrial cancer (HCC-CMS) ??? Hyperlipidemia ??? Hypertension ??? Hypothyroid ??? CINTHIA (obstructive sleep apnea) Past Surgical History: Past Surgical History: Procedure Laterality Date ??? IRASEMA AND BSO age 27 ??? TOTAL KNEE ARTHROPLASTY Bilateral ??? WRIST SURGERY Medications: Current Facility-Administered Medications: acetaminophen (TYLENOL) tablet 650 mg oral Q4H PRN aspirin chewable 81 mg tablet fentaNYL citrate (PF) 50 mcg/mL injection fentaNYL citrate (PF) 50 mcg/mL injection heparin 1,000 unit/mL injection lidocaine 20 mg/mL (2 %) injection lidocaine-EPINEPHrine 2 %-1:100,000 injection 5-10 mL intradermal PRN midazolam (PF) (VERSED) 1 mg/mL injection midazolam (PF) (VERSED) 1 mg/mL injection sodium chloride 0.9 % (NS) infusion intravenous CONTINUOUS verapamil (ISOPTIN) 2.5 mg/mL injection Current Outpatient Prescriptions: Aloe Vera 25 mg capsule ascorbic acid, vitamin C, (VITAMIN C) 500 mg tablet aspirin chewable 81 mg tablet calcium carbonate (TUMS) 200 mg calcium (500 mg) tablet,chewable calcium/magnesium (CALCIUM AND MAGNESIUM ORAL) Chlorhexidine Gluconate 2 % liquid chrm/vineg/bit-orang peel/gr t (APPLE CIDER VINEGAR PLUS ORAL) Cinnamon Bark 500 mg capsule coconut oil 1,000 mg capsule cranberry fruit extract (CRANBERRY ORAL) cyanocobalamin (VITAMIN B-12) 100 mcg tablet furosemide (LASIX) 20 mg tablet krill oil 500 mg capsule levothyroxine (SYNTHROID) 125 mcg tablet lisinopril (PRINIVIL, ZESTRIL) 20 mg tablet mupirocin (BACTROBAN) 2 % ointment sertraline (ZOLOFT) 100 mg tablet simvastatin (ZOCOR) 20 mg tablet tocopheryl acetate (VITAMIN E) 200 unit capsule traMADol (ULTRAM) 50 mg tablet Zinc Acetate, Oral, 50 mg (zinc) capsule Family History: Family History Problem Relation Age [...] ??? Not on file Social History Narrative ROS: General: negative Psychological: negative Ophthalmic: negative ENT: negative Allergy and Immunology: negative Hematological and Lymphatic: negative Endocrine: negative Breast: negative Respiratory: positive for - shortness of breath Cardiovascular: positive for - dyspnea on exertion and shortness of breath Gastrointestinal: negative Genito-Urinary: negative Musculoskeletal: bilateral TKR Neurological: negative Dermatological: negative OBJECTIVE: VS: Blood pressure 137/58, temperature 37.2 ??C (99 ??F), temperature source Tympanic, resp. rate 16, height (!) 144.8 cm (57), weight 84.4 kg (186 lb), SpO2 95 %. Gen: awake, alert, NAD Neck: soft, no [...] oriented X3, normal exam Ambulates without difficulty ?? Labs: Lab Results Component Value Date/Time WBC 10.71 02/08/2018 09:46 HGB 13.1 02/08/2018 09:46 HCT 38.4 02/08/2018 09:46 PLT 243 02/08/2018 09:46 NA 140 02/08/2018 09:46 K 4.0 02/08/2018 09:46 CL 103 02/08/2018 09:46 CO2 29 02/08/2018 09:46 BUN 15 02/08/2018 09:46 CREATININE 0.69 02/08/2018 09:46 CXR 01/19/18: ?? Findings: PA and lateral views of the chest and dual technique show ?? lungs grossly clear. Heart and mediastinal contours without ?? significant finding. Moderate degenerative changes of the thoracic ?? spine noted, no compression deformities. No consolidation, pulmonary ?? vascular congestion or pleural effusion. ? IMPRESSION: Satisfactory preoperative chest radiographs. ?? 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 Left Ventriculography and Hemodynamic Results None ?? Endovascular Study Results See above re subclavian angio and demonstration of large WALTERS. I personally reviewed the above noted laboratory and cardiologic images. ?? Procedure: AV Replacement + CAB Risk of Mortality: 3.63% Morbidity or Mortality: 20.411% Long Length of Stay: 10.357% Short Length of Stay: 27.747% Permanent Stroke: 1.793% Prolonged Ventilation: 16.158% DSW Infection: 0.303% Renal Failure: 4.768% Reoperation: 8.226% ?? ASSESSMENT: It is my opinion that Troy Silva is a candidate for cardiac surgery. I would plan on performinga conventional Aortic Valve Replacement with a perceval valve. We discussed the risks and benefits of surgery as well as the possibility of going to a subacute rehab for a short period of time for recovery after surgery. Today's catheterization revealed an 80% lesion in her left anterior descending coronary artery. I would plan on placing an internal mammary artery to this vessel at the time of surgery. The STS risk calculator was discussed with the patient and her mortality is 1.236% and the mortality and morbidity is 9.991% ASSESSMENT: It is my opinion that Troy Silva is a candidate for cardiac surgery. I would plan on performingcoronary artery bypass grafting and aortic valve replacement (tissue Perceval) . Surgery is scheduled on 02/22/[address] Vogt. The STS risk calculator was discussed with the patient and her mortality is 4% and the mortality and morbidity is 20%. PLAN: 1. Routine pre-operative workup in place. 2. To OR on 02/22/18 for coronary artery bypass grafting (WALTERS-LAD) and aortic valve replacement (tissue, perceval). Tyrell Vogt MD documented in this encounter Plan of Treatment Upcoming Encounters Date Type Department Care Team (Late st Contact Info) Description 03/08/2025 11:00 EDT Office Visit [facility] D[facility]atology [address] [place] [address] Cynthia Salinas MD [address] [place] [address], [address] [place] [phone] documented as of this encounter Procedures Procedure Name Priority Date/Time Associated Diagnosis Comments ECG REPORT - SCANNED 02/11/2018 8:56 EDT ECG REPORT - SCANNED 02/11/2018 8:42 EDT ECG REPORT - SCANNED 02/11/2018 8:42 EDT PRE-OP TYPE AND SCREEN Routine 02/08/2018 13:53 EDT 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, unspecified vessel or lesion type (HCC-CMS) Nonrheumatic aortic valve stenosis MRSA PCR Routine 02/08/2018 13:39 EDT 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, unspecified vessel or lesion type (HCC-CMS) Nonrheumatic aortic valve stenosis EKG 12-LEAD Routine 02/08/2018 9:53 EDT PROTIME STAT 02/08/2018 9:46 EDT COMPLETE BLOOD COUNT STAT 02/08/2018 9:46 EDT BUN STAT 02/08/2018 9:46 EDT CREATININE STAT 02/08/2018 9:46 EDT ELECTROLYTES STAT 02/08/2018 9:46 EDT documented in this encounter Results * ECG REPORT - SCANNED (02/11/2018 8:56 EDT) 02/11/2018 8:56 EDT Scan 2 Roving Winder PROCEDURE/MINOR NANCY GICAL ORDERABLES * ECG REPORT - SCANNED (02/11/2018 8:42 EDT) 02/11/2018 8:42 EDT Scan 2 Roving Winder PROCEDURE/MINOR NANCY GICAL ORDERABLES * ECG REPORT - SCANNED (02/11/2018 8:42 EDT) 02/11/2018 8:42 EDT Scan 2 Roving Winder PROCEDURE/MINOR NANCY GICAL ORDERABLES * PRE-OP BLOOD BANK DRAW (02/08/2018 13:53 EDT) Pre-Op Blood Bank Lab Draw SPECIMEN RECEIVED ACCEPTABLE 02/08/2018 16:46 EDT [facility] BLOOD SPECIMEN / Unknown 02/08/2018 13:53 EDT 02/08/2018 15:01 EDT Tyrell Vogt MD BLOOD BANK TESTS [facility] [address] [place] [address] * MRSA PCR (02/08/2018 13:39 EDT) Result No Staphylococcus aureus detected by PCR. 02/08/2018 23:02 EDT [facility] Specimen of unknown material (specimen) NASAL ROUTE / Unknown 02/08/2018 13:39 EDT 02/08/2018 16:15 EDT Tyrell Vogt MD MICROBIOLOGY - GE NERAL ORDERABLES [facility] [address] [place] [address] * EKG 12-LEAD (02/08/2018 9:53 EDT) 02/08/2018 9:53 EDT Narrative [facility] - 02/11/2018 8:51 EDT ? [facility] ? Test Date: ?2018-02-08 Pat Name: ? TROY SILVA ? Department: ?? CVU ? Room: ? CVU36 Gender: ? Female ? 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 Requested By: AZARBAL AMIR Order Number: [id number] ? Reading MD: ?? BOB MARCE MD ? Measurements Intervals ?[place] ? Rate: ? 91 ? P: ?4 SC: ? 173 ?QRS: ?19 QRSD: ? 71 ? T: ?123 QT: ? 359 ? QTc: ?443 ? Interpretive Statements SINUS RHYTHM ST DEVIATION AND MODERATE T-WAVE ABNORMALITY, CONSIDER LATERAL ISCHEMIA No previous ECG available for comparison I reviewed the tracing and have either agreed or edited the findings in this report. Electronically Signed On 02-11-2018 8:51:25 EDT by BOB ZHENG MD. 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 Electronically Signed On 02-11-2018 8:51:25 EDT by BOB SHAH. Marcela Hartley MD CARDIAC ECG ORDERABL ES [facility] * PROTIME (02/08/2018 9:46 EDT) Pro Time 11.8 10.3 - 13.4 secs 02/08/2018 10:44 EDT [facility] I.N.R. 1.0 0.9 - 1.1 Ratio 02/08/2018 10:44 EDT [facility] Comment: Moderate Intensity Coumadin INR = 2.0-3.0 Adjustments in anticoagulant therapy dose should be based upon the INR and NOT the Pro Time. Blood specimen (specimen) BLOOD SPECIMEN / Unknown 02/08/2018 9:46 EDT 02/08/2018 10:15 EDT Marcela Hartley MD HEMATOLOGY & PF4 ORD ERABLES [facility] [address] [place] [address] * (ABNORMAL) COMPLETE BLOOD COUNT (02/08/2018 9:46 EDT) WBC 10.71 4.0 - 12.4 K/cmm 02/08/2018 11:45 [facility] RBC 3.82(L) 3.86 - 5.04 M/cmm 02/08/2018 11:45 [facility] Hemoglobin 13.1 11.6 - 15.2 gm/dl 02/08/2018 11:45 [facility] HCT 38.4 34.9 - 44.4 % 02/08/2018 11:45 [facility] MCV 101(H) 81 - 98 fl 02/08/2018 11:45 [facility] MCH 34.3(H) 26.7 - 33.3 pg 02/08/2018 11:45 [facility] MCHC 34.1 32.1 - 35.9 gm/dl 02/08/2018 11:45 [facility] RDW-CV 13.1 <14.7 % 02/08/2018 11:45 [facility] RDW-SD 47.8 <50.4 fl 02/08/2018 11:45 [facility] PLT 243 141 - 377 K/cmm 02/08/2018 11:45 [facility] MPV 11.4 9.5 - 12.7 fl 02/08/2018 11:45 [facility] Blood specimen (specimen) BLOOD SPECIMEN / Unknown 02/08/2018 9:46 EDT 02/08/2018 10:15 EDT Marcela Hartley MD HEMATOLOGY & PF4 ORD ERABLES Performing Organization Address City/[facility]/ZIP Co de Phone Number [facility] [address] [place] [address] * ELECTROLYTES (02/08/2018 9:46 EDT) Sodium 140 136 - 145 mEq/L 02/08/2018 10:38 EDT [facility] Potassium 4.0 3.5 - 5.0 mEq/L 02/08/2018 10:38 EDT [facility] Chloride 103 96 - 110 mEq/L 02/08/2018 10:38 EDT [facility] CO2 29 22 - 32 mEq/L 02/08/2018 10:38 EDT [facility] Blood specimen (specimen) BLOOD SPECIMEN / Unknown 02/08/2018 9:46 EDT 02/08/2018 10:15 EDT Marcela Hartley MD CHEMISTRY & BLOOD GA S ORDERABLES Performing Organization Address [facility] Co de Phone Number [facility] [address] [place] [address] * CREATININE (02/08/2018 9:46 EDT) Creatinine 0.69 0.52 - 1.04 mg/dl 02/08/2018 10:38 EDT [facility] GFR, Calculated 88 >60 ml/min/1.7 3m2 02/08/2018 10:38 EDT [facility] Comment: eGFR calculated using CKD-EPI equation for non Americans. Multiply eGFR by 1.16 for Americans. Blood specimen (specimen) BLOOD SPECIMEN / Unknown 02/08/2018 9:46 EDT 02/08/2018 10:15 EDT Marcela Hartley MD CHEMISTRY & BLOOD GA S ORDERABLES Performing Organization Address City/[facility]/ZIP Co de Phone Number [facility] [address] [place] [address] * BUN (02/08/2018 9:46 EDT) BUN 15 10 - 26 mg/dl 02/08/2018 10:38 EDT [facility] Blood specimen (specimen) BLOOD SPECIMEN / Unknown 02/08/2018 9:46 EDT 02/08/2018 10:15 EDT Marcela Hartley MD CHEMISTRY & BLOOD GA S ORDERABLES [facility] [address] [place] [address] documented in this encounter Visit Diagnoses Diagnosis 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, unspecified vessel or lesion type ([facility]-CMS)- Primary Nonrheumatic aortic valve stenosis Aortic valve disorders documented in this encounter Administered Medications Inactive Administered Medications - up to 3 most recent administrations Medication Order MAR Action Action Date Dose Rate Site acetaminophen (TYLENOL) tablet 650 mg 650 mg, oral, EVERY 4 HOURS PRN, Starting on Thu02/08/18 at 1220, Until Thu02/08/18 at 1747, Pain, Routine Given 02/08/2018 14:03 EDT 650 mg aspirin chewable 81 mg tablet 1 dose, Starting on Thu02/08/18 at 1106, Until Thu02/08/18 at 1747 aspirin chewable tablet oral, PRN, Starting on Thu02/08/18 at 1109, Until Thu02/08/18 at 1109, Routine Given 02/08/2018 11:09 EDT 81 mg fentaNYL citrate (PF) 50 mcg/mL injection 1 dose, Starting on Thu02/08/18 at 1058, Until Thu02/08/18 at 1747 fentaNYL citrate (PF) 50 mcg/mL injection intravenous, PRN, Starting on Thu02/08/18 at 1121, Until Thu02/08/18 at 1211, Routine Given 02/08/2018 12:11 EDT 50 mcg Given 02/08/2018 11:43 EDT 25 mcg Given 02/08/2018 11:38 EDT 25 mcg fentaNYL citrate (PF) 50 mcg/mL injection 1 dose, Starting on Thu02/08/18 at 1138, Until Thu02/08/18 at 1747 heparin 1,000 unit/mL injection 1 dose, Starting on Thu02/08/18 at 1104, Until Thu02/08/18 at 1747 lidocaine 20 mg/mL (2 %) injection 1 dose, Starting on Thu02/08/18 at 1058, Until Thu02/08/18 at 1747 lidocaine-EPINEPHrine 2 %-1:100,000 injection 5-10 mL 5-10 mL, intradermal, PRN, 1 dose, Starting on Thu02/08/18 at 1220, Until Thu02/08/18 at 1747, Other, to control bleeding , Routine midazolam (PF) (VERSED) 1 mg/mL injection 1 dose, Starting on Thu02/08/18 at 1058, Until Thu02/08/18 at 1747 midazolam (PF) (VERSED) 1 mg/mL injection intravenous, PRN, Starting on Thu02/08/18 at 1121, Until Thu02/08/18 at 1140, Routine Given 02/08/2018 11:40 EDT 1 mg Given 02/08/2018 11:29 EDT 1 mg Given 02/08/2018 11:21 EDT 1 mg midazolam (PF) (VERSED) 1 mg/mL injection 1 dose, Starting on Thu02/08/18 at 1139, Until Thu02/08/18 at 1747 sodium chloride 0.9 % (NS) infusion 30 mL/hr, intravenous, CONTINUOUS, Starting on Thu02/08/18 at 1000, Until Thu02/08/18 at 1747, Routine, Preprocedure Rate Documented 02/08/2018 12:40 EDT 30 mL/hr 30 mL/hr New Bag 02/08/2018 10:00 EDT 30 mL/hr 30 mL/hr verapamil (ISOPTIN) 2.5 mg/mL injection 1 dose, Starting on Thu02/08/18 at 1105, Until Thu02/08/18 at 1747 documented in this encounter Discontinued Medications Medication Sig Discontinue Reason Start Date End Da te mv-min/iron/folic/calcium/vit K (WOMEN'S MULTIVITAMIN ORAL) Take by mouth. Error documented as of this encounter Active and Recently Administered Medications Times are shown in EDT. Continuous Medication Order 02/06/2018 02/07/2018 02/08/2018 sodium chloride 0.9 % (NS) infusion 30 mL/hr, intravenous, CONTINUOUS, Starting on Thu02/08/18 at 1000, Until Thu02/08/18 at 1747, Routine, Preprocedure 1000 (New Bag - Prov ider: Jess May RN)1240 (Rate Documented - Provider: Keely Luciano RN)1440 (Completed - Provider: Keely Luciano RN) PRN Medication Order 02/06/2018 02/07/2018 02/08/2018 acetaminophen (TYLENOL) tablet 650 mg 650 mg, oral, EVERY 4 HOURS PRN, Starting on Thu02/08/18 at 1220, Until Thu02/08/18 at 1747, Pain, Routine 1403 (Given - Provid er: Keely Luciano, STACIE) aspirin chewable tablet (COMPLETED) oral, PRN, Starting on Thu02/08/18 at 1109, Until Thu02/08/18 at 1109, Routine 1109 (Given - Provid er: Maximilian Nagy RN) fentaNYL citrate (PF) 50 mcg/mL injection (COMPLETED) intravenous, PRN, Starting on Thu02/08/18 at 1121, Until Thu02/08/18 at 1211, Routine 1121 (Given - Provid er: Devyn Borrero RN)1127 (Given - Provider: Devyn Borrero RN)1130 (Given - Provider: Devyn Borrero RN)1136 (Given - Provider: Devyn Borrero RN)1138 (Given - Provider: Devyn Borrero RN)1143 (Given - Provider: Devyn Borrero RN)1147 (Not Given - Provider: Devyn Borrero RN - Reason: Other - Comment: ENTERED IN ERROR)1211 (Given - Provider: Yoandy Gonzales RN) lidocaine-EPINEPHrine 2 %-1:100,000 injection 5-10 mL 5-10 mL, intradermal, PRN, 1 dose, Starting on Thu02/08/18 at 1220, Until Thu02/08/18 at 1747, Other, to control bleeding , Routine midazolam (PF) (VERSED) 1 mg/mL injection (COMPLETED) intravenous, PRN, Starting on Thu02/08/18 at 1121, Until Thu02/08/18 at 1140, Routine 1121 (Given - Provid er: Devyn Borrero RN)1129 (Given - Provider: Devyn Adair, RN)1140 (Given - Provider: Devyn Borrero RN) No Frequency Medication Order 02/06/2018 02/07/2018 02/08/2018 aspirin chewable 81 mg tablet 1 dose, Starting on Thu02/08/18 at 1106, Until Thu02/08/18 at 1747 fentaNYL citrate (PF) 50 mcg/mL injection 1 dose, Starting on Thu02/08/18 at 1058, Until Thu02/08/18 at 1747 fentaNYL citrate (PF) 50 mcg/mL injection 1 dose, Starting on Thu02/08/18 at 1138, Until Thu02/08/18 at 1747 heparin 1,000 unit/mL injection 1 dose, Starting on Thu02/08/18 at 1104, Until Thu02/08/18 at 1747 lidocaine 20 mg/mL (2 %) injection 1 dose, Starting on Thu02/08/18 at 1058, Until Thu02/08/18 at 1747 midazolam (PF) (VERSED) 1 mg/mL injection 1 dose, Starting on Thu02/08/18 at 1058, Until Thu02/08/18 at 1747 midazolam (PF) (VERSED) 1 mg/mL injection 1 dose, Starting on Thu02/08/18 at 1139, Until Thu02/08/18 at 1747 verapamil (ISOPTIN) 2.5 mg/mL injection 1 dose, Starting on Thu02/08/18 at 1105, Until Thu02/08/18 at 1747 documented in this encounter Orders Medications Ordered That Antoni ht Not Have Been Administered Count Last Ordered Date First Ordered Date aspirin chewable 81 mg tablet 1 02/08/2018 fentaNYL citrate (PF) 50 mcg/mL injection 2 02/08/2018 heparin 1,000 unit/mL injection 1 8 lidocaine 20 mg/mL (2 %) injection 1 2017 lidocaine-EPINEPHrine 2 %-1: 100,000 injection 5-10 mL 1 02/08/2018 midazolam (PF) (VERSED) 1 mg/mL injection 2 02/08/2018 verapamil (ISOPTIN) 2.5 mg/mL injection 1 0 02/08/2018 Lab Orders Without Results Count Last Ordered D ate First Ordered Date POCT GLUCOSE 1 02/08/2018 Nursing Count Last Ordered Date First Orde red Date CARDIAC PROCEDURE ACCESS SITE 1 02/08/2018 CARDIAC PROCEDURE CLOSURE DEVICE 1 02/09/20 18 DISCHARGE INSTRUCTIONS 1 02/08/2018 DISCONTINUE SALINE LOCK/IV 2 02/08/2018 INSERT PERIPHERAL IV 1 02/08/2018 NOTIFY PHYSICIAN (SPECIFY) 2 02/08/2018 PATIENT AT LOW RISK FOR VTE: RISK OF MECHANICAL PROPHYLAXIS OUTWEIGHS 2 02/08/2018 PATIENT AT LOW RISK FOR VTE: RISK OF PHARMACOLOGIC PROPHYLAXIS OUTWEIG 2 02/08/2018 Transfer Count Last Ordered Date First Orde red Date NOTIFY PPS OF DISCHARGE COMPLETE 1 02/09/20 18 TEACHING SERVICE 1 02/08/2018 Discharge Count Last Ordered Date First Orde red Date DISCHARGE PATIENT 1 02/08/2018 documented in this encounter Care Teams Toll Patrolman Relationship Specialty Start Date End Date Kit Burch MD [address] [place] [phone] PCP - General 01/15/18 10/29/23 documented as of this encounter
--- OUTSIDE RECORDS SUMMARY | 2024-03-03 01:20 | XMS_ITS ---
Author Organization Unknown Address [address] [place] [address] [phone] Phone Care Team Providers Care Service Sprinkler Helper Name Role Phone CHIDI GALLEGOS Attending Unavailable Immunization Immunization Date Status Additional Notes Code Code System pneumococcal polysaccharide PPV23 03/02/2012 Completed 33 CVX Results MM DIGITAL SCR W PAIGE BILATE RAL - Completed: 04/10/2021 13:51 LOINC: Digital mammograms were inte rpreted according to the usual protocol including computer analysis with Cause[employer]itx system including tomosynthesis. Comparison is made with examinations from 2011 through 2019. The breasts are composed of scattered fibroglandular densities. No suspicious masses or suspicious microcalcifications are seen. There has been no significant change. IMPRESSION:Negative mammogram. Yearly screening mammography is recommended. BI-RADS Assessment: Category 1 - Negative BREAST DENSITY: b. There are scattered areas of fibroglandular density. Dictated by: CEO LETICIA JACK M.D. RADIOLOGIST Transcribed by: MAYRA 04/11/21/07:13 D Saturday, April 10, 2021 1:54:46 PM [id number] Electronically Reviewed and Signed By: LETICIA JACK M.D. RADIOLOGIST 04/11/21 08:31 TECHNOLOGIST: Natalia Mc, RT (R)(M)(CT) Social History Type Status Start Date End Date Code Code Syst em Smoking History Never smoker (Never Smoked) 201956356 SNOMED CT Sex Female Assessment You had [...] NOS L LEG active SNOMED-CT GERD active 449778686 SNOMED-CT HYPOTHYROIDISM active 04283503 SNOME D-CT CHF active 38179311 SNOMED-CT Allergies and Adverse Reactions Allergy Substance Reaction Severity Start Date Concern Status Co de Code System MORPHINE Moderate Active 7052 RxNorm Plan of Treatment No Data Found Encounters Encounter Diagnosis Start Date Code Code Sys tem Encounter for screening mamm ogram for malignant neoplasm of breast 04/10/2021 SNOMED-CT Personal Care Team Section Performer Name Performer Role Active Date Inactive Da te
--- OUTSIDE RECORDS SUMMARY | 2024-03-03 01:20 | XMS_ITS | Encounter Summary ---
Author Organization [facility] Address [address] [place] [address] Care Team Providers Care Senior Account Executive Name Role Phone Kit Burch MD Primary Care Provider [phone] Reason for Visit * Reason Onset Date Comments Other 02/09/2018 Encounter Details Date Type Department Care Team (Late st Contact Info) Description 02/09/2018 Telephone [facility] Cardiothoracic Surgery - [facility] [address] [place] [address] Sharla Clements RN [address] [place] [address] Other Social History Tobacco Use Types Packs/Day Years Used Date Smoking Tobacco: Former Cigarettes 0 07/27/1961 - 07/27/1962 Smokeless Tobacco: Never Sex and Gender Information Value Date Recorded Sex Assigned at Not on file Gender Identity Female 11/09/2019 12:42 EDT Sexual Orientation Not on file documented as of this encounter Miscellaneous Notes * Telephone Encounter - Sharla Clements RN - 02/09/[address] Surgery Update Regarding Nasal Culture Results Telephone Call The following information was reviewed with Patient: 1) Nasal culture negative with no treatment needed. 2) Refer to Handout on Pre-Operative Screening and Skin Preparation Instructions given previously for review. 3) Contact our office if you have any questions at or [phone]. Verbalized understanding. documented in this encounter Plan of Treatment Upcoming Encounters Date Type Department Care Team (Late st Contact Info) Description 03/08/2025 11:00 EDT Office Visit [facility] D[facility]ology [address] [place] [address] Cynthia Salinas MD [address] [facility] [address] [place] [address] documented as of this encounter Visit Diagnoses Not on filedocumented in this encounter Care Teams Senior Account Executive Relationship Specialty Start Date End Date Kit Burch MD [address] [facility] [facility] [address] [place] [phone] PCP - General 01/15/18 10/29/23 documented as of this encounter
--- OUTSIDE RECORDS SUMMARY | 2024-03-03 01:20 | XMS_ITS | Encounter Summary ---
Author Organization [facility] Address [address] [place] [address] Care Team Providers Care Skidder Lever Operator Name Role Phone Jewel Fontenot MD Primary Care Provider [phone] Reason for Visit * Reason Onset Date Comments Referral Request 12/24/2017 Elective Referr al Encounter Details Date Type Department Care Team (Late st Contact Info) Description 12/24/2017 Telephone [facility] Cardiothoracic Surgery - [address] [id number] Coirnne Burnette MD [address] [facility] [place] [address] Referral Request (Elective Referral) Social History Tobacco Use Types Packs/Day Years Used Date Smoking Tobacco: Never Assessed Sex and Gender Information Value Date Recorded Sex Assigned at Not on file Gender Identity Female 11/09/2019 12:42 EDT Sexual Orientation Not on file documented as of this encounter Miscellaneous Notes * Telephone Encounter - Laith Nichols - 12/25/2017 0915 EDT Call to patient with appointment information for 01/19/18 at 8:[address] Vogt. Left message on patient's voicemail with appointment details and provided clinic phone number if patient has questions. * Telephone Encounter - Martha Rodriguez - 12/24/2017 1517 EDT Per MARGAUX Kulkarni for consult appointment on 01/19/18 at 8:30 am. Routing to Bradley Nichols MA to contact patient with appointment information. * Telephone Encounter - Martha Rodriguez - 12/24/[address] Surgeon appointment is with Dr. Vogt. Patient tentatively scheduled with Dr. Vogt for consultation on 01/19/18 at 8:30 am, subject to his review. * Telephone Encounter - Martha Rodriguez - 12/24/2017 1103 EDT Received referral from Audra Malcolm RN who originally received referral from Dr. De Dios for evaluation for TAVR. Per Audra, patient may not qualify for TAVR, so she is sending referral to our office for CT Surgeon Evaluation. Cardiothoracic Surgery Department Referral Form Diagnosis & surgery recommended: Severe Aortic Stenosis/AVR Type of referral: Elective, Consult (Inpatient or Elective), Inpatient or Transfer? Elective Requested surgeon or first available? First available Status: Stable or Unstable? stable Referring Information Provider Requesting Referral: Dr. De Dios PCP: Dr. Jewel Fontenot If cardiac cath completed, date and nail technician? Not done LV function or EF %? EF 65-70% on recent echo Small Appliance Assembly Supervisor following patient? Dr. De Dios _ Medication Information Anticoagulants given (Plavix, Ticagrelor, other)? N/a, patient is outpatient If inpatient transfer, any IV medication (drips)? N/a, patient is outpatient Medical History Has patient had previous cardiac surgery? If so, name of surgeon and date? no COPD, yes or no? no Diabetes, yes or no? no Renal disease, yes or no? no History of vein stripping, yes or no? no Peripheral vascular disease, yes or no? no Carotid disease or previous CVA (stroke), yes or no? no Additional co-morbidities? If yes, please list: Presumed heart failure with preserved systolic function, morbid obesity, HTN, HLD, CINTHIA (on CPAP), depression, hypothyroidism and history of endometrialCA Diagnostic Testing Echo - date completed: 11/23/17 at [facility] - spoke with Daily at Dr. De Dios's office to request disk be sent to our office. EKG - date completed: 07/13/17 CT scan (aneurysm or mass) - date completed: not done Recent labs - date completed: 11/23/17 Additional testing? If yes, please list: stress test 07/13/17 THIS REFERRAL HAS BEEN ROUTED TO: Dr. Vogt and CT Surgery RN documented in this encounter Plan of Treatment Upcoming Encounters Date Type Department Care Team (Late st Contact Info) Description 03/08/2025 11:00 EDT Office Visit [facility] Dermatology [address] [place] [address] Cynthia Salinas MD [address] [facility], [address] [place] [phone] documented as of this encounter Visit Diagnoses Not on filedocumented in this encounter Care Teams Skidder Lever Operator Relationship Specialty Start Date End Date Jewel Fontenot MD [address] [facility] [address] [place] [phone] PCP - General 06/01/15 01/14/18 documented as of this encounter
--- OUTSIDE RECORDS SUMMARY | 2024-03-03 01:20 | XMS_ITS | Encounter Summary ---
Author Organization [facility] Address [address] [place] [address] Care Team Providers Care Puffer Tender Name Role Phone Kit Burch MD Primary Care Provider [phone] Reason for Visit * Reason Onset Date Comments Other 02/08/2018 Encounter Details Date Type Department Care Team (Late st Contact Info) Description 02/08/2018 Telephone [facility] Cardiothoracic Surgery - [facility] [address] [place] [address] Sharla Clements RN [address] [place] [address] Other Social History Tobacco Use Types Packs/Day Years Used Date Smoking Tobacco: Former Cigarettes 0 07/27/1961 - 07/27/1962 Smokeless Tobacco: Never Sex and Gender Information Value Date Recorded Sex Assigned at Not on file Gender Identity Female 11/09/2019 12:42 EDT Sexual Orientation Not on file documented as of this encounter Miscellaneous Notes * Telephone Encounter - Sharla Clements RN - 02/08/2018 8165 EDT Cardiac Surgery Nursing Pre-Operative Teaching I met with this patient in the CVU to pre-op for upcoming AVR and CABG x 1. Patient sleeping but spoke at length with daughter and granddaughter. Surgical Procedure: AVR - Perceval, CABG x 1 Surgical Procedure Date and Time: February 22, 2018 1st Case Surgeon: Torie Patient Education Topic: Cardiac Surgery Information Method: Demonstration, Handouts, Verbal, Video The following Cardiac Surgery Patient Educational Information was given to the patient with my review today: Review of anticpated Hospital Course and post-op pain management reviewed verbally. Inspirometer demonstrated and given for practice pre-operatively. Pt instructed to use every 1-2 hours 10 cycles each time post-operatively. Advance Directive completed previously and in [employer] No Advance Directive in process with copy given to patient to bring on DOSA No CABG Description Handout given for review Yes Emergency Handling How to Handle a Sudden Heart Problem Handout given for Review Yes Valve Description Booklet (Tissue Du Valve / [facility] [place] Mechanical Valve) given for review. Valve types with risks and longevity information and consent reviewed by Surgeon. Mailed Coumadin Medication Guide given and reviewed with patient if Mechanical Valve Utilized NA Antibiotic Prophylaxis Handout [place] [employer] for Prevention of Infective Bacterial Endocarditis given and reviewed Mailed Bra Instruction Handout for female given for review Yes No aerobic exercise or activities prior to surgery that elevate the heart rate reviewed Preoperative Instructions (also documented in Prism) given and reviewed Skin Preparation Instructions with Antibiotic Prescription for Bactroban to fill and use if nasal culture positive. Hibiclens shower daily instructions for positive culture (5 days for both) reviewed. Skin Preparation Handout given for review. Recovering at Home Following Your Heart Surgery Addendum Handout (with updates) to read prior to viewing Discharge Video given for review Recovering at Home Following Your Heart Surgery DVD given and instructed to view prior to and following surgery Cardiac Nutrition Basics given for review How to Manage your Stress given for review Resource Center Handout given for review Web Site Listing Handout given for review Blood Pressure Handout given for review Lodging List given for review Physical Activity for the Patient Following Cardiac Surgery Handout given for review Smoking Cessation Information Handout given for review In patients having CABG Surgery, graft closure risk reviewed with continued smoking Hibiclens Soap x 2 bottles with instructions given and reviewed 10 lb sternotomy (no lift, push, pull greater than 10 lbs) restriction reviewed: 12 weeks from surgery date for full-sternotomy No driving x 4 weeks post-operatively or until the Provider approves reviewed Reviewed no work for 6 - 12 weeks post-operatively with confirmation at post-operative visit with Surgeon NA If female patient, wear a bra 24 hours per day post-op for 3 months for full-sternotomy, 6 weeks for mini-sternotomy. Remove daily with bathing and reapply. Bra will be given in Hospital and patient will be sized by Inpatient Nurses. Handout given for review Patient instructed to follow with current Providers (Primary Care, Cardiology and CT Surgery and any other Providers that the patient may follow with) Instructed to report changes in medical status promptly to Provider or to ER via 911 if emergency with acute pain, pressure, severe dizziness, syncope, diaphoresis, Tachycardia, SOB. Initial Discharge Planning from Surgery Information: Patient lives alone and family has requested either a Rehab or Home Health RN. I explained to her that this would be addressed during patient's post-op admission with case management Taught to: Patient's daughter Barriers to Learning: NA Outcomes: Pt verbalized understanding and to continue to review information and view video. Pt to call with questions as reviewed prn. P) As above Patient to continue to review pre-operative teaching information, view video and call the CT Surgery Office as needed with questions Patient to practice using inspirometer as instructed Contact patient with nasal culture results and treatment plan Pre-Op confirmation call prior to surgery Note routed to Case Management and Financial Writer if there are discharge needs anticipated documented in this encounter Plan of Treatment Upcoming Encounters Date Type Department Care Team (Late st Contact Info) Description 03/08/2025 11:00 EDT Office Visit [facility] Dermatology [address] [place] [address] Cynthia Salinas MD [address] [facility] [place] [address] documented as of this encounter Visit Diagnoses Not on filedocumented in this encounter Care Teams Puffer Tender Relationship Specialty Start Date End Date Kit Burch MD [address] [place] [phone] PCP - General 01/15/18 10/29/23 documented as of this encounter
--- OUTSIDE RECORDS SUMMARY | 2024-03-03 01:20 | XMS_ITS | Encounter Summary ---
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, unspecified vessel or lesion type ([facility]) Nacho Scales MD [address] [place] [phone] Referral ID Status Reason Start Date Expiration Date Visits Requested Visits Authorized [id number] Receiving Office to Obtain Authorization Continuity of Care 02/27/2018 1 1 Question Answer Reason for Request: s/p Aortic valve replacement, CABG x1 Expected Discharge Date (Inpatient Only): 03/02/2018 Comments Follow up within 1-2 weeks * (Routine) - Receiving Office to Obtain Authorization Specialty Diagnoses / Procedures Referred By Contac t Referred To Contact Nacho Scales MD [address] [place] [phone] Referral ID Status Reason Start Date Expiration Date Visits Requested Visits Authorized [id number] Receiving Office to Obtain Authorization Specialty Services Required 02/27/2018 1 1 * (Routine) - Receiving Office to Obtain Authorization Specialty Diagnoses / Procedures Referred By Contac t Referred To Contact Nacho Scales MD [address] [place] [phone] Referral ID Status Reason Start Date Expiration Date Visits Requested Visits Authorized [id number] Receiving Office to Obtain Authorization Specialty Services Required 02/27/2018 1 1 * (Routine) - Receiving Office to Obtain Authorization Specialty Diagnoses / Procedures Referred By Ana caro Referred To Contact Nacho Scales MD [address] [place] [phone] Referral ID Status Reason Start Date Expiration Date Visits Requested Visits Authorized [id number] Receiving Office to Obtain Authorization Specialty Services Required 02/27/2018 1 1 Comments - Check in at Registration on level 3 (street level) at [facility] 45 minutes prior to your scheduled appointment with the surgeon. - If you have a chest x-ray prior to your appointment with the surgeon, contact the surgeon's office at or to see if this x-ray will still be needed. 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, unspecified vessel or lesion type ([facility]); Nonrheumatic aortic valve stenosis; Somnolence Discharge Disposition: Nursing Facility (Skilled) Social History Tobacco Use Types Packs/Day Years Used Date Smoking Tobacco: Former Cigarettes 0 07/27/1961 - 07/27/1962 Smokeless Tobacco: Never Sex and Gender Information Value Date Recorded Sex Assigned at Not on file Gender Identity Female 11/09/2019 12:42 EDT Sexual Orientation Not on file documented as of this encounter Last Filed Vital Signs Vital Sign Reading Time Taken Comments Blood Pressure 136/58 02/27/2018 0916 EDT Pulse - - Temperature 37.1 ??C (98.8 ??F) 02/27/2018 0916 EDT Respiratory Rate 18 02/27/2018 0916 EDT Oxygen Saturation 96% 02/27/2018 0916 EDT Inhaled Oxygen Concentration - - Weight 88.4 kg (194 lb 14.4 oz) 02/27/2018 0607 EDT Height 144.8 cm (4' 9.01) 02/22/2018 1227 EDT Body Mass Index 42.16 02/22/2018 1227 EDT documented in this encounter Functional Status [...] as of this encounter Discharge Diagnoses Diagnosis I35.0 Nonrheumatic aortic (valve) stenosis-I35.0[ICD-10-CM] I49.01 Ventricular fibrillation-I49.01[ICD-10-CM] I97.790 Other intraoperative cardiac functional disturbances during cardiac surgery-I97.790[ICD-10-CM] I25.10 Atherosclerotic heart disease of duckwater coronary artery without angina pectoris-I25.10[ICD-10-CM] I10 Essential (primary) hypertension-I10[ICD-10-CM] E78.5 Hyperlipidemia, unspecified-E78.5[ICD-10-CM] G47.33 Obstructive sleep apnea (adult) (pediatric)-G47.33[ICD-10-CM] E03.9 Hypothyroidism, unspecified-E03.9[ICD-10-CM] Z79.82 detention (current) use of aspirin-Z79.82[ICD-10-CM] Z82.49 Family history of ischemic heart disease and other diseases of the circulatory system-Z82.49[ICD-10-CM] R40.0 Somnolence-R40.0[ICD-10-CM] Z91.19 Patient's noncompliance with other medical treatment and regimen-Z91.19[ICD-10-CM] Z87.891 Personal history of nicotine dependence-Z87.891[ICD-10-CM] documented in this encounter Discharge Summaries * Nacho Scales MD - 02/27/2018 0953 EDT Cardiothoracic Surgery Discharge Summary Primary Care Provider: Kit Burch Attending Physician: Tyrell Vela MD Admit Date: 02/22/2018 Discharge Date: 02/27/2018 Disposition: Subacute Rehab Problems and Procedures Admitting Diagnosis: No primary diagnosis found. Primary Hospital Diagnosis: Coronary artery disease, aortic stenosis Secondary Diagnosis: Same Additional Problems Managed in the Hospital Active Hospital Problems Diagnosis Date Noted ??? *Nonrheumatic aortic valve stenosis 02/22/2018 ??? 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 Operations and Procedures On-pump coronary artery bypass x1 (left internal mammary to LAD), aortic valve replacement (Lalo bovine pericardial valve, size small). On Date 02/22/18 History of Presentation The patient is a 72 y.o.female who presents with a history of PROGRESSIVE shortness of breath dyspnea on exertion and tiredness. I saw the patient a couple of weeks ago. Aortic valve replacement was recommended. She had a cardiac catheterization today by Dr. Arellano which showed a hemodynamically significant lesion in her left anterior descending coronary artery. Therefore I am seeing her today fora preoperative history and physical examination for planned aortic valve surgery and coronary artery bypass grafting.. Hospital Course Troy Anders, 72 y.o., female was admitted to [facility] on 02/22/2018 via the Cardiology/Cardiothoracic Surgery Service. She was brought to the operating room on 01/[address] Vela performed On-pump coronary artery bypass x1 (left internal mammary to LAD), aortic valve replacement (Lalo bovine pericardial valve, size small). She tolerated the procedure well and brought to the surgical ICU for recovery.She initially required pharmacologic support of intravenous pressors and ionotropes. She was extubated from the ventilator on the night of surgery . Diuretics were started and She responded appropriately. She was started on beta blockade and this was optimized. Routine postoperative and home medications were started and a diet was advanced. She had one episode of atrial fibrillation but returned to normal dinsus By post operative day #2 all drips were weaned to off and She was transferred to the intermediate cardiac care unit for continued titi abilitation. All tubes, lines, and epicardial pacing wires were removed without incident. She voided normally after She ch was removed and their renal function remained preserved. The remainder of She hospital course was uneventful and by postoperative days She had met all criteria for discharge to [facility] 02/27/2018. Pain was controlled on oral medications. She has walked 5 minutesand gone up and down stairs. She was tolerating a regular diet and had a bowel movement. Allergies and Immunizations Allergies Allergen Reactions ??? Morphine hallucinations There is no immunization history on file for this patient. Transition of Care Plans Condition at Discharge Good Assessment at Discharge Blood pressure 136/58, temperature 37.1 ??C (98.8 ??F), temperature source Tympanic, resp. rate 18,height (!) 144.8 cm (57.01), weight 88.4 kg (194 lb 14.4 oz), SpO2 96 %. Admission Wt: 84.37 kg Last Wt: @LASTWEIGHT3@ Pertinent Physical Exam Findings General: NAD, pleasant, Drowsy Chest: midline sternotomy incision stable CV: RRR GI: NS, NT, +BS Extremities: Trace edema Important Lab Data Lab Results Component Value Date NA 135 (L) 02/27/2018 K 3.9 02/27/2018 CL 101 02/27/2018 CO2 28 02/27/2018 BUN 20 02/27/2018 CREATININE 0.70 02/27/2018 CALCGFR 87 02/27/2018 Complete Blood Count Lab Results Component Value Date ABO O 02/22/2018 WBC 11.88 02/27/2018 RBC 2.82 (L) 02/27/2018 HGB 9.7 (L) 02/27/2018 HCT 28.2 (L) 02/27/2018 MCV 100 (H) 02/27/2018 MCH 34.4 (H) 02/27/2018 MCHC 34.4 02/27/2018 PLT 113 (L) 02/27/2018 MPV 12.6 02/27/2018 RDWCV 13.3 02/27/2018 Coagulation Lab Results Component Value Date PTT 27 02/24/2018 PROTIME 13.6 (H) 02/24/2018 INR 1.2 (H) 02/24/2018 Relevant Studies at Discharge: CHEST 2 VIEWS 02/25/2018 1:18 PM Signs and Symptoms/Comments: Look for infiltrates, atelectasis, pleural effusions, and pneumothorax Impression: 1. 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 2. Interval improvement. Technique: Dual e nergy PA and lateral chest. Comparison: February 23, 2018 Findings: All tubes and lines have been removed and an upright dual energy PA and lateral chest obtained. There is residual infrahilar opacity obscuring the posterior diaphragms representing a combination of postoperative atelectasis and small bi lateral effusions. Reinforced wire sternal sutures are intact. PORTABLE CHEST 1 VIEW INITIAL LINE, ET INSERTION 02/22/2018 12:38 PM Impression: 1. Atelectasis, probable small bilateral pleural effusions and minimal interstitial edema. 2. Tubes and lines as described above. Discharge Medications: START taking these medications Sig acetaminophen 500 mg tablet Commonly known as: TYLENOL Take 2 Tabs by mouth every 6 hours. docusate sodium 100 mg capsule Commonly known as: COLACE Take 2 Caps by mouth 2 times daily. metoprolol tartrate 75 mg tablet Take 75 mg by mouth 2 times daily for 7 days. Quantity: 14 Tab potassium chloride SA 10 mEq tablet Commonly known as: K-DUR, KLOR-CON Take 1 Tab by mouth 2 times daily for 7 days. Quantity: 14 Tab CONTINUE taking these medications Sig APPLE CIDER VINEGAR PLUS ORAL Take by mouth. ascorbic acid (vitamin C) 500 mg tablet Commonly known as: VITAMIN C Take 500 mg by mouth daily. aspirin chewable 81 mg tablet Take 81 mg by mouth daily. CALCIUM AND MAGNESIUM ORAL Take by mouth. calcium carbonate 200 mg calcium (500 mg) tablet,chewable Commonly known as: TUMS Take 1 Tab by mouth 4 times daily as needed. coconut oil 1,000 mg capsule Take by mouth. furosemide 20 mg tablet Commonly known as: LASIX Take 20 mg by mouth 2 times daily. krill oil 500 mg capsule Take by mouth. levothyroxine 125 mcg tablet Commonly known as: SYNTHROID Take 125 mcg by mouth daily. simvastatin 20 mg tablet Commonly known as: ZOCOR Take 20 mg by mouth daily. tocopheryl acetate 200 unit capsule Commonly known as: Vitamin E Take 200 Units by mouth daily. traMADol 50 mg tablet Commonly known as: ULTRAM Take 1 Tab by mouth every 6 hours as needed for up to 7 days for Pain. Daily Max: 200 mg Quantity: 14 Tab VITAMIN B-12 100 mcg tablet Generic drug: cyanocobalamin Take 100 mcg by mouth daily. Zinc Acetate (Oral) 50 mg (zinc) capsule Take by mouth. ZOLOFT 100 mg tablet Generic drug: sertraline Take 50 mg by mouth daily. STOP taking these medications lisinopril 20 mg tablet Commonly known as: PRINIVIL, ZESTRIL OTHER medications on file Sig Aloe Vera 25 mg capsule Take by mouth. Cinnamon Bark 500 mg capsule Take by mouth. CRANBERRY ORAL Take by mouth. None Discharge Follow Up NA Follow Up Visit: Follow up with your Kit Burch in 1 week for suture removal and medication review Follow up with your Kit Burch MD in 2 weeks Follow up with your Cardiothoracic Surgeon in 4-6 weeks with a CxR Quality Measures: Is patient on ASA Yes Is patient on a Statin (unless contraindicated) Yes patients with isolated valve surgery with no coronary disease do not have to be on a statin Is patient on a Beta shelby yes Is patient on an Carlo (patients with low EF unless contraindicated/ recent DE) No Discharge summary completed by Nacho Scales on 02/27/2018 documented in this encounter Medications at Time [...] Take 1 Tablet by mouth daily. 10/30/2023 metoprolol tartrate 75 mg tablet Take 75 mg by mouth 2 times daily for 7 days. 14 Tab 02/27/2018 03/06/2018 potassium chloride SA (K-DUR, KLOR-CON) 10 mEq tablet Take 1 Tab by mouth 2 times daily for 7 days. 14 Tab 02/27/2018 03/06/2018 traMADol (ULTRAM) 50 mg tablet Take 1 Tab by mouth every 6 hours as needed for up to 7 days for Pain. Daily Max: 200 mg 14 Tab 02/27/2018 03/06/2018 documented as of this encounter Ordered Prescriptions Prescription Sig Dispensed Refills Start Date End Da te acetaminophen (TYLENOL) 500 mg tablet Take 2 Tabs by mouth every 6 hours. 02/27/2018 docusate sodium (COLACE) 100 mg capsule Take 2 Caps by mouth 2 times daily. 02/27/2018 04/08/2018 metoprolol tartrate 75 mg tablet Take 75 mg by mouth 2 times daily for 7 days. 14 Tab 02/27/2018 03/06/2018 potassium chloride SA (K-DUR, KLOR-CON) 10 mEq tablet Take 1 Tab by mouth 2 times daily for 7 days. 14 Tab 02/27/2018 03/06/2018 traMADol (ULTRAM) 50 mg tablet Take 1 Tab by mouth every 6 hours as needed for up to 7 days for Pain. Daily Max: 200 mg 14 Tab 02/27/2018 03/06/2018 documented in this encounter Discharge Disposition Disposition Code Departure Means Destination Nursing Facility (Skilled) documented in this encounter Progress Notes * Kavon Juvenal Méndez - 02/27/2018 1002 EDT Spiritual Care Note Re: Troy Anders : 1945, AGE: 72 y.o. Room: [place] [id number] Troy Anders who is listed as Roman Catholic has received a visit from the Spiritual Care Department on 02/27/2018. Need/Assessment: ?? Follow up visit with Troy. She is grieving the imminent of her partner of 25 years. He is in a hospice unit. They were able to FaceTime yesterday. Troy is being transferred to [facility] this morning. She hopes to be able to see Dipak in person before his . ?? Troy is grieving and asking appropriate questions attempting to make meaning and sense out of these events. Intervention: ?? Provided a supportive, listening presence. ?? Explored her feelings. Talked about grief. ?? Prayers were said for Dipak Nickerson and their loved ones. Outcome: ?? Plan of Action: x No Follow up necessary - Needs met Continued Family Support Continued Support from Hand Rigger following patient Make a Referral to: Continued Support with Volunteer Visits Connect with Community Supports Ask for a consult from: Other: Visit Initiated by: Referral by computer or phone message Time: End of Life / Comfort Care / Hospice Page direct contact by pager or staff person Time: 5 Level of Visit Services Provided: Anointing of Sick Prayer Communion Relaxation through music Assist Advanced Directives Integrative therapies Assist Decision Making M[place]artney and Prayer at dying Exploration of Ethical issues Present at time of Family Support Other The Rev. Juvenal Jacobson [facility], Hand Rigger [address] Phone [phone] Pager [phone] Spiritual Care is available 24 hours a day. Office hours are 0800 to 1700 Thursday through Thursday and 0830 to 1630 Thursday and Thursday. Interfai and Pentecostalism chaplains are available 24 hours a day. For routine consults please call and leave a message with the Spiritual Care Office ([phone]) and patients will be seen within 24 hours. Forall emergent consults page the [employer] or Interfaith on-call Hand Rigger through [facility] ([phone]). * Gregorio Sawant RT - 02/26/2018 3669 EDT Respiratory Nocturnal BIPAP/CPAP Heart Rate: 72 BPM, Resp: 18, SpO2: 97 %, Breath Sounds Bilateral: Clear, Diminished Patient was not placed on Non-Invasive Ventilation Device Type: Home Unit, Settings were home settings Pt did not want to wear CPAP tonight. Comments: RT LUL 02/26/18 * Nacho Scales MD - 02/26/[address] Surgery Progress Note Admit Date: 02/22/2018 LOS: 4 days Procedure: POD#4 s/p tissue AVR and CABGx1 Subjective: 24-Hour Events: - NAEON Subjective: Doing well this morning. Sitting up to the chair. Less somnolent. Continues with pain around incision. Eating well and having bowel movements. Denies chest pain, nausea, abdominal pain, or vomiting. Meds MAR Reviewed Objective: Vitals: BP 131/66 (BP Cuff Location: Left arm, Patient Position: Semi fowlers) Temp 37.6 ??C (99.7 ??F) (Tympanic) Comment: STACIE Duffy notified Resp 28 Ht (!) 144.8 cm (57.01) Wt 89 kg (196 lb 1.6 oz) SpO2 100% BMI 42.42 kg/m2 BP: (107-133)/(48-66) () Pulse: -- () Temp: [36.6 ??C (97.9 ??F)-37.6 ??C (99.7 ??F)] () Resp: [16-28] () SpO2: [98 %-100 %] () Admission weight: Weight : 84.4 kg (186 lb) Most recent weight: Weight : 89 kg (196 lb 1.6 oz) Patient is on 1L liters/min via nasal prongs Intake/Output Summary (Last 24 hours) at 02/26/18 1407 Last data filed at 02/26/18 1344 Gross per 24 hour Intake 135 ml Output 855 ml Net -720 ml Exam Gen:NAD. Less drowsy Heart: regular rate and rhythm Lungs: CTAB, sternum stable, incision dressing C/D/I Abd: S, NT, ND, +BS Ext: WWP, No LE edema bilaterally Neuro: AAOx3, slowed responses moves all extremities Data Review CBC: Recent Labs 02/24/18 0530 02/25/18 0215 02/26/18 0520 WBC 15.67* 13.19* 12.25 RBC 2.88* 2.95* 2.86* HGB 9.9* 10.0* 9.6* HCT 29.9* 29.2* 28.7* MCV 104* 99* 100* MCH 34.4* 33.9* 33.6* MCHC 33.1 34.2 33.4 PLT 81* 79* 96* BMP: Recent Labs 02/23/18 1436 02/24/18 0530 02/24/18 1313 02/25/18 0215 02/26/18 0520 NA 139 139 -- 135* 135* K 4.0 4.0 -- 4.1 4.1 CL 106 106 -- 105 102 CO2 28 28 -- 26 27 BUN -- 21 -- 20 22 CREATININE 0.75 0.75 -- 0.63 0.58 CALCIUM -- -- -- 8.0* -- CALCCA -- -- -- 9.2 -- CAION 1.14 -- -- -- -- MG 2.2 -- -- 2.1 -- PHOS 3.6 -- -- -- -- LABALBU -- -- 2.4* -- -- Coags: Recent Labs 02/24/18 1313 PROTIME 13.6* INR 1.2* PTT 27 Assessment: Troy Anders is a(n) 72 y.o. old female with PMH of , HLD, HTN, hypothyroidism and CINTHIA now POD#4 s/p tissue AVR and CABGx1 on 02/22/18. Now in sinus rhythm Plan: ?? Increase Lopressor to 75 BID ?? FU HIT labs for decreasing platelets: hold lovenox for now. Maintain SCD (non harvest side) and ambulate for DVT prophylaxis ?? AAT, OOB, PT ?? regular diet, bowel regimen ?? CPAP at night ?? Plan to dispo to [facility] tomorrow am ?? If return of afib, will start eliquis POD#0: [x] CXR, [x] EKG, [ ] potassium and cbc x 2, [ ] wean to extubate POD#1: [x] extubated, [x] CXR, [x] EKG, [x] lasix, [ ] lopressor, [x] d/c SLIC, [x] d/c a-line, [x]transfer to floor POD#2: [x] d/c CT, [x] d/c wires, [x] d/c ch, [x] d/c cordis, [x] start DVT prophy POD#3: [x] stop insulin gtt, [x] ekg, [x] CXR, [x] labs Nacho Scales MD Pager #[phone] 02/26/2018 14:[address] Colton Vela, Tyrell Witt MD Attestation statement: I saw and examined the patient. I agree with Dr. Scales's findings and plans as documented. Tyrell Vela MD, FACS ' * Jose A Zuluaga, PT - 02/26/[address] [facility] Rehabilitation Therapy Acute Therapies [facility] Discontinue/Discharge Note Date of Service: 02/26/2018 Precautions: Ambulate and Sternal precautions SUBJECTIVE: Are we going to try walking? OBJECTIVE: Intervention Completed Today: Time: 1105 Total treatment time: 25 minutes. Timed code treatment minutes: 25 Vital Signs: Activity Heart rate (bpm) Blood Pressure (mmHg) Respiratory rate (breaths/min) Oxygen Sat/ Fractions of inspired Oxygen SPO2/FIO2 % Pre 81 123/60 99% on 1L NC During 98% on RA Post 81 120/88 98% on RA RN notified that pt was left off O2 Treatment: Patient found up in a recliner, visiting with daughter and daughter in law. Patient alert and agreeable to therapy interventions. Reviewed sternal precautions. Therapeutic Exercises: Ankle Pumps x 10 Long arc quads x 10 All above with verbal cues to perform correctly Therapeutic Activity: Transfers: sit -> stand from recliner and W/C with min contact assist of 1 and verbal cues for hand placement, appropriate UE use based on sternal precautions, momentum use, and increased anterior weight shift of her trunk Stand->sit with min contact assist of 1 and verbal/tactile cues for hand placement and to slow her descent Gait/aerobic capacity training: Ambulated ~ 50 feet and 20 feet with min contact assist of 1, RW, chair follow, and with verbal cues for ambulation closer to the walker, to maximize upright posture, paced/pursed lip breathing control, and verbal cues for wide base of support to maximize balance and maintain center of gravity All above with verbal cues for safety and sequencing as well as energy conservation Breathing Exercises/airway clearance: Instructed and performed Paced/pursed lip breathing with all functional activity to maximize gas exchange and to decrease work of breathing The patient was instructed in and performed 5 repetitions of incentive spirometry to 750 cc with verbal cues for technique to maximize lung expansion and pacing. The patient was instructed in a coughtechnique and splinting and performed a cough with splinting 5 repetitions after incentive spirometry. Discussed D/C planning with patient and family. All are in agreement with the plan for [place]AB[place]. Patient/Family Education: Topic: Activity pacing/Energy conservation Assistive device/technique Balance Breathing exercises Discharge planning Equipment use Exercise Gait Positioning Precautions/protocol Role of therapy Safety Transfers Learner: patient and family Method: verbal and demonstration Barriers to Learning: none noted Outcome: requires assist and needs practice Team Communication: Spoke with RN before and after therapy session Patient has been seen in physical therapy since 02/25 for Therapeutic exercises, Therapeutic activities and Gait training. In this reporting period 02/25 to 02/26 the patient has been seen by a physical therapist. Frequency: daily for 2 times per week. Intensity: 15-30 minutes per session. Duration:During this hospitalization. Please refer to the physical therapy notes for specifics on the patient's functional status and treatment sessions. Relevant objective findings: INTEGUMENTARY/ANTHROPOMETRIC CHARACTERISTICS: Skin: sternal incision with wound vac C/D/I Edema: bilateral lower extremities BALANCE, MOBILITY, AND GAIT: Please refer above to Interventions Completed Today ASSESSMENT: Physical therapy services in this setting have been discontinued secondary to: Patient has been or will be discharged from the hospital Physical Therapy Diagnosis: Patient presents with impaired functional mobility secondary to new sternal precautions, decreased activity levels throughout hospital stay, impaired cognition, decreased functional strength and endurance,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 CBC: Recent Labs 02/22/18 1804 02/23/18 0255 02/24/18 0530 WBC 22.68* 23.20* 15.67* RBC 3.58* 3.50* 2.88* HGB 12.2 12.1 9.9* HCT 36.3 35.2 29.9* MCV 101* 101* 104* MCH 34.1* 34.6* 34.4* MCHC 33.6 34.4 33.1 PLT 191 167 81* BMP: Recent Labs 02/22/18 1057 02/22/18 1122 02/22/18 1232 02/23/18 0453 02/23/18 1436 02/24/18 0530 NA 138 140 -- -- 139 139 139 K 5.0 5.6* 4.4 < > 4.6 4.0 4.0 CL -- -- -- -- 109 106 106 CO2 -- -- -- -- 25 28 28 BUN -- -- 14 -- 18 -- 21 CREATININE -- -- 0.56 -- 0.68 0.75 0.75 CAION 1.02* 1.29 -- -- -- 1.14 -- MG -- -- 2.7 -- -- 2.2 -- PHOS -- -- 3.2 -- -- 3.6 -- < > = values in this interval not displayed. Coags: No results for input(s): PROTIME, INR, PTT in the last 72 hours. Assessment: Troy Anders is a(n) 72 y.o. old female with PMH of , HLD, HTN, hypothyroidism and CINTHIA now POD#2 s/p tissue AVR and CABGx1 on 02/22/18 Plan: ?? Consult Neurology due to left facial assymetry, headache ?? Consider CT head w/o contrast- Await recs ?? DC cordis, wires, ch, CT ?? Consider lopressor ?? AAT, OOB ?? Advance diet POD#0: [x] CXR, [x] EKG, [ ] potassium and cbc x 2, [ ] wean to extubate POD#1: [x] extubated, [x] CXR, [x] EKG, [x] lasix, [ ] lopressor, [x] d/c SLIC, [x] d/c a-line, [x]transfer to floor POD#2: [x] d/c CT, [x] d/c wires, [x] d/c ch, [x] d/c cordis, [x] start DVT prophy POD#3: [ ] stop insulin gtt, [ ] ekg, [ ] CXR, [ ] labs NACHO SCALES MD Pager #[phone] 02/24/2018 8:26 Discussed with Tyrell Vela MD Attestation statement: I saw and examined the patient. I agree with Dr. Scales's findings and plans as documented. Tyrell Vela MD, FACS ' * Santo Manjarrez MD - 02/23/[address] Surgery Update Called to bedside for persistent somnolence, patient unable to keep her eyes open, pupils quite small, saturating well on 2L nasal cannula but clinically appeared to be obstructing, has history of obstructive sleep apnea for which she has a CPAP unit but reportedly doesn't use. Gave 0.2mg of narcan with immediate improvement in alertness/neuro exam, moving all extremities to command with good strength, gross touch sensation intact throughout. Did have a slight left sided facial droop when smiling, however, when wincing with elicited pain she clearly engages the entirety of her left sided facial musculature in symmetric fashion with the right, poor effort with puffing out cheeks but no obvious asymmetry, tongue movement side to side normal, extra occular eye movements normal. Also obtained ABG demonstrating adequate ventilation and oxygenation. Continue to monitor and if any neuro deficits develop will discuss neurology Santo Manjarrez MD 02/23/2018, 23:33 General Surgery PGY-3 Pager [phone] Above discussed with chief surgical appliance fitter * Jose A Lira RT - 02/23/2018 5222 EDT Respiratory Nocturnal BIPAP/CPAP Heart Rate: 87 BPM, Resp: 19, SpO2: 97 %, Breath Sounds Bilateral: Clear, Diminished Patient was not placed on Non-Invasive Ventilation Device Type: Home Unit, Settings were n/a. Pt not tolerating well. Notified MD Manjarrez Comments: RT Romeo 02/23/18 * Tyrell Vela MD - 02/23/[address] Surgery Progress Note Admit Date: 02/22/2018 LOS: 1 day Subjective: No acute events overnight. Off pressors, doing well this AM with well controlled pain. Somnolent this AM but following commands. Denies f/c, n/v, abd pain, cp/dyspnea. Objective: Vitals: Vital signs stable. Exam Gen: Pt lying comfortably in bed, NAD. Heart: RRR Lungs: CTAB, sternum stable, incision C/D/I, chest tube w/serosang drainage & no airleak Abd: S, NT, ND, NABS. : ch in place with dark yellow urine Ext: WWP, trace LE edema bilaterally Neuro: AAOx3, moves all extremities, answers questions appropriately Chest tube output: 500 since OR, 80 since midnight. Data Review WBC 13.6->22.7->23.2, will trend. HCT, platelets stable. BMP wnl. Assessment: Troy Anders is a 72 y.o. F w/ PMH of , HLD, HTN, hypothyroidism, and CINTHIA now POD1 s/p tissue AVR and CABGx1 on 02/22/18. Plan: POD#0: [ x] CXR, [ x] EKG, [x ] potassium and cbc x 2, [x ] wean to extubate POD#1: [x ] extubated, [x ] CXR, [x ] EKG, [x ] lasix, [ ] lopressor, [x ] d/c SLIC, [x ] d/c a-line, [x ] transfer to floor POD#2: [ ] d/c CT, [ ] d/c wires, [ ] d/c ch, [ ] d/c cordis, [ ] start DVT prophy ?? POD#3: [ ] stop insulin gtt, [ ] ekg, [ ] CXR, [ ] labs Please page me with any questions or concerns. ADRYAN BEASLEY MD PGY-1 Pager #[phone] 02/23/2018 9:16 Attestation statement: I saw and examined the patient. I agree with Dr. Connor's findings and plans as documented. Tyrell Vela MD, FACS ' * Delisa Sandoval, RT - 02/22/20181928 EDT Respiratory Extubation Note Pre-procedure - The extubation order and correct patient verified. The procedure was coordinated with the RN. Procedure - The patient's oral pharynx and ETT were suctioned for Secretion Amount: Small SecretionColor: Clear, White and Secretion Consistency: Thick, Thin. A cuff leak was present. The patient was placed on 100% resuscitation bag and the ventilator placed in standby. The patient was extubated and placed on O2 Flow Rate (L/min): 5 l/min O2 Device: Nasal cannula. No stridor was noted and the patient was able to produce voice. RT NERY 02/22/18 * Delisa Sandoval RT - 02/22/2018 1915 EDT Respiratory Consult/Progress Note Indications for Respiratory therapy: Initial Consult Data Vitals: Heart Rate: 77 BPM, Resp: 27, SpO2: 90 % FIO2/O2 Device: O2 Flow Rate (L/min): 5 l/min, , O2 Device: CPAP, FIO2 %: 40 % RT Orders: Q4 Eval IS QID Protocol Scoring: Bronchodilator/Inhalation Therapy Frequency Bronchodialator - Clinical Indications: No clinical indications Breath Sounds: Clear Response: No change / no treatment Pulse: <100 Resp Rate: <18 SOB: None Total Score: 0 Comment:: not indicated Airway Clearance Therapy Frequency Airway Clearance - Clinical Indications: No clinical indications Breath Sounds: Clear / diminished Sputum: Small (tsp) / None Consistency: None Cough Effort: Weak, productive Color: None Total Score: 2 Comment: not indicated Hyperinflation Therapy Frequency Hyperinflation - Clinical Indications: Abdominal/thoracic surgery or chest trauma Breath Sounds: Diminished / crackles Surgery: Yes X-Ray / Atelectasis: No O2 Requirements: O2 at baseline Mobility Status: In bed Total: 7 Comment: IS QID Action/Events Respiratory events; Pt consulted. No respiratory meds at home, no hx of COPD or Asthma. Pt uses home CPAP machine for CINTHIA. Placed on post extubated due to pt sleeping. IS done with minimal effort, coaching needed pt [id number] ml's 3 times. Response/Results Weaning and Toleration of treatments; Continue IS QID and home cpap QHS RT NERY 02/22/18 * Wu Naranjo RN - 02/15/2018 1452 EDT Troy Anders has been instructed as follows regarding medication administration for the day of the scheduled procedure. Date of Surgery: 02-22-2018 Instructions for Taking Medications Day of Surgery Medication Sig Last Dose Hold DOS Take DOS Aloe Vera 25 mg capsule Take by mouth. 02-15-2018 ascorbic acid, vitamin C, (VITAMIN C) 500 mg tablet Take 500 mg by mouth daily. 02-15-2018 aspirin chewable 81 mg tablet Take 81 mg by mouth daily. Yes calcium carbonate (TUMS) 200 mg calcium (500 mg) tablet,chewable Take 1 Tab by mouth 4 times daily as needed. 02-15-2018 calcium/magnesium (CALCIUM AND MAGNESIUM ORAL) Take by mouth. 02-15-2018 chrm/vineg/bit-orang peel/gr t (APPLE CIDER VINEGAR PLUS ORAL) Take by mouth. 02-15-2018 Cinnamon Bark 500 mg capsule Take by mouth. 02-15-2018 coconut oil 1,000 mg capsule Take by mouth. 02-15-2018 cranberry fruit extract (CRANBERRY ORAL) Take by mouth. 02-15-2018 cyanocobalamin (VITAMIN B-12) 100 mcg tablet Take 100 mcg by mouth daily. 02-15-2018 furosemide (LASIX) 20 mg tablet Take 20 mg by mouth 2 times daily. yes krill oil 500 mg capsule Take by mouth. 02-15-2018 levothyroxine (SYNTHROID) 125 mcg tablet Take 125 mcg by mouth daily. Yes lisinopril (PRINIVIL, ZESTRIL) 20 mg tablet Take 20 mg by mouth daily. 02-20-2018 sertraline (ZOLOFT) 100 mg tablet Take 50 mg by mouth daily. Yes simvastatin (ZOCOR) 20 mg tablet Take 20 mg by mouth at bedtime. Takes at HS tocopheryl acetate (VITAMIN E) 200 unit capsule Take 200 Units by mouth daily. 02-15-2018 traMADol (ULTRAM) 50 mg tablet Take 50 mg by mouth every 6 hours as needed for Pain. Yes Zinc Acetate, Oral, 50 mg (zinc) capsule Take by mouth. 02-15-2018 Instructed pt to not take OTC supplements or NSAIDS until after surgery. documented in this encounter H&P Notes * Wm Magana, ELIUD - 02/22/2018 0708 EDT The preoperative history and physical which was performed within 30 days of this procedure has been reviewed and the clinically appropriate elements of the physical examination have been repeated. There are no changes to the documented history and physical or if so such changes are documented below ELIUD Cat 02/22/2018 7:08 Source Note - Tyrell Vela MD - 02/08/2018 15:45 EDT Cardiothoracic Surgery Consult Chief Complaint: Shortness of breath and tiredness HPI: Our service was asked by Dr. De Dios to consult on Troy Francisco Anders for consideration of cardiac surgery. The [...] ASSESSMENT: It is my opinion that Troy Anders is a candidate for cardiac surgery. [...] ASSESSMENT: It is my opinion that Troy Anders is a candidate for cardiac surgery. I would plan on performingcoronary artery bypass grafting and aortic valve replacement (tissue Perceval) . Surgery is scheduled on 02/22/[address] Vela. The STS risk calculator was discussed with the patient and her mortality is 4% and the mortality and morbidity is 20%. PLAN: 1. Routine pre-operative workup in place. 2. To OR on 02/22/18 for coronary artery bypass grafting (WALTERS-LAD) and aortic valve replacement (tissue, perceval). Tyrell Vela MD documented in this encounter Consult Notes * Kit Kevin MD - 02/24/2018 0924 EDT Stroke Consult Note Service Date: 02/24/2018 Admit Date: 02/22/2018 6:01 Primary Care Provider: Kit Emmanuel MD:Kit Burch MD Code Status: Full Code Palliative Care was not consulted because criteria not met. Requesting Service: Cardio thoracic surgery Requesting attending: Dr. Vela Reason for consult: Left facial weakness and confusion HPI Troy Anders is a 72 y.o. right handed woman with past medical history notable for CINTHIA on PAP therapy with poor adherence, hypertension, dyslipidemia, CAD and now s/p CABG and AVR on 02/22/2018. Neurology has been consulted for evaluation of what is believed to be a new left lower facial weakness and confusion Ms. Anders underwent on pump CABG (WALTERS-LAD) and AVR (Perceval tissue). Her surgery was uneventful. She was extubated shortly after the procedure but continued to require pressor support until ferryboat deckhand on 02/23. She also received sedative and narcotic medications including propofol while intubated, fentanyl 50 mg x2 on 02/22, hydromorphone 2 mg x 2 on 02/22 and 02/23, gabapentin (300 mg TID) and tramadol (150 on 02/22 and 25 on 02/23). Additionally she has had a low grade fever (T max 38.4 yesterday) with leukocytosis that is down trending. She was noted to be somnolent during morning rounds on02/23. Over night, she continued to be somnolent with small pupils. She was given 0.2 mg of narcan with immediate improvement in alertness and intact neurologic exam except for slight left lower facial weakness per surgery resident documentation. An ABG was obtained and was normal and no further intervention was done. Of note, she has been refusing to use her CPAP. This morning, she was again noted to be confused by her family and to have left lower facial weakness. She had compalined of some headache, however at the time of my interview she denied any pain. During my evaluation, Troy was intermittently somnolent but arosable and able to follow commands. Int erestingly, when her family presented to the bedside, despite subtle left lower facial weakness, they believe that her face looks like her baseline, though they are concerned about her mental status.Also, her daughter mentions that she is very sensitive to narcortic medications and she thinks her somnolence is due to that. Additional diagnosis on admission: Encephalopathy (any cause) Review of Systems Pertinent items are noted in Subjective/HPI Past Medical History: Diagnosis Date ??? Aortic stenosis ??? Depression ??? Endometrial cancer (HCC-CMS) ??? Hyperlipidemia ??? Hypertension ??? Hypothyroid ??? CINTHIA (obstructive sleep apnea) Past Surgical History: Procedure Laterality Date ??? SHAWNEE AND BSO age 27 ??? TOTAL KNEE ARTHROPLASTY Bilateral ??? WRIST SURGERY Social History Substance Use Topics ??? Smoking status: Former Smoker Types: Cigarettes Start date: 07/27/1961 Quit date: 07/27/1962 ??? Smokeless tobacco: Never Used ??? Alcohol use Not on file Comment: 2-3 week Family History Problem Relation Age of Onset ??? Heart Disease Mother Current Facility-Administered Medications Medication Dose Route Frequency Provider Last Rate Last Dose ??? acetaminophen (TYLENOL) tablet 1,000 mg 1,000 mg oral Q6H Wm Magana PA 1,000 mg at 02/24/18 1148 Or ??? acetaminophen (TYLENOL) suppository 975 mg 975 mg rectal Q6H Wm Magana PA Or ??? acetaminophen (TYLENOL) solution unit dose cup 995 mg 995 mg oral Q6H Wm Magana PA 995 mg at 02/24/18 0019 ??? aspirin chewable tablet 81 mg 81 mg oral DAILY Wm Magana PA 81 mg at 02/24/18 0855 ??? bisacodyl (DULCOLAX) suppository 10 mg 10 mg rectal Daily PRN Adryan Beasley MD ??? dextrose 50 % solution 12.5-25 g 12.5-25 g intravenous PRN Wm Magana PA ??? docusate sodium (COLACE) capsule 100 mg 100 mg oral BID Adryan Beasley MD 100 mg at 02/24/18 0902 ??? enoxaparin (LOVENOX) injection 40 mg 40 mg subcutaneous QHS Adryan Beasley MD 40 mg at 02/23/182003 ??? furosemide (LASIX) tablet 20 mg 20 mg oral BID Adryan Beasley MD 20 mg at 02/24/18 0848 ??? insulin regular (HUMULIN R, NOVOLIN R) 2 Units bolus infusion 2 Units intravenous PRN Wm Magana PA ??? insulin regular (HUMULIN R,NOVOLIN R) 100 Units in sodium chloride (NS) 0.9 % 100 mL infusion 1Units/hr intravenous CONTINUOUS Wm Magana PA 1.5 mL/hr at 02/24/18911 1.5 Units/hr at 02/24/18 0912 ??? levothyroxine (SYNTHROID) tablet 125 mcg 125 mcg oral DAILY BEFORE BREAKFAST Wm Magana PA 125 mcg at 02/24/18 0631 ??? naloxone (NARCAN) 0.4 mg/mL injection ??? ondansetron (PF) (ZOFRAN) injection 4 mg 4 mg intravenous Q6H PRN Wm Magana PA 4 mg at 02/22/18 1617 ??? potassium chloride SA (K-DUR, KLOR-CON) tablet 10 mEq 10 mEq oral BID Adryan Beasley MD 10 mEq at 02/24/18 0848 ??? senna (SENOKOT) tablet 2 Tab 2 Tab oral BID Adryan Beasley MD 2 Tab at 02/24/18 0902 ??? sertraline (ZOLOFT) tablet 50 mg 50 mg oral DAILY Wm Magana PA 50 mg at 02/24/18 0858 ??? simvastatin (ZOCOR) tablet 20 mg 20 mg oral DAILY Wm Magana PA 20 mg at 02/24/18 0856 ??? sodium chloride 0.9 % (NS) infusion 10 mL/hr intravenous CONTINUOUS Wm Magana PA 10 mL/hr at 02/24/18911 10 mL/hr at 02/24/18 09 Allergies Allergen Reactions ??? Morphine hallucinations Objective Vitals Temp: [36.4 ??C (97.5 ??F)-38.4 ??C (101.1 ??F)] (), Heart Rate: [82 BPM-92 BPM] (), Pulse: -- (), Resp: [14-20] (), BP: (104-125)/(39-58) (), SpO2: [94 %-97 %] (), O2 Flow Rate (L/min): 1 l/min Numeric Pain Level (Scale 1-10): 8 Weight: Weight : 84.4 kg (186 lb) Body mass index is 40.25 kg/(m^2). PHYSICAL EXAM: Gen: NAD Head: NC/AT Eyes: white sclerae ENT: MMM Pulm: equal air movement bilaterally, poor air movement at bases CV: S1/S2 present Abd: soft, NT EXT: asterixis NEUROLOGIC EXAM: Cognitive: Somnolent but arosable Oriented to hospital, I had cardiac.... Says month is 7. But later was able to say AUG. Falls asleep and unable to answer rest of orientation questions. Later able to tell us who the president is. Able to name finger, knuckles and badge and repeat 'today is a jeronimo day in [place]' and 'no ifsand or buts' Able to follow one step commands, needs coaching for >2 step commands Cranial nerves: CN II: visual alexander full accounts specialist II and III: pupils are 2 mm symmetric and and reactive accounts specialist III, IV, and : maybe very subtle left eye ptosis, extraocular movements intact with smooth pursuit, no spontaneous or gaze-induced nystagmus CN V: sensation intact to light touch in V1 thru V3 distributions CN VII: very subtle left lower facial weakness (per family this is baseline), eyebrows raise symmetrically CN VIII: finger rub heard equally bilaterally. CN IX, X: palate elevates symmetrically with midline uvula CV V, VII, IX, X, and XII: no dysarthria CN XI: turns head in both directions CN XII: tongue protrusion midline without fasciculations Motor: Intermittent negative myoclonic movement in bilateral UE and LE Normal bulk of intrinsic hand muscles and thighs Normal tone UMN signs: No pronator drift Power (R/L): generally weak, but no clear focal weakness Shoulder abduction 4+/4+ Elbow flexion 4+/4+ Elbow extension 4+/4+ Hand grasp 4+/4+ Hip flexion 4+/4+ Knee flexion 4+/4+ Knee extension 4+/4+ Ankle dorsiflexion 4+/4+ Ankle plantarflexion 4+/4+ Reflexes: DTRs (R/L): Biceps ++/++ Brachioradialis ++/++ Triceps ++/++ Patella ++/++ Achilles +/+ Superficial reflexes: Plantar response: withdraws quickly and seems equivocal bilaterally Sensory: Sensation to crude touch grossly intact at ankles and wrists No extinction to double simultaneous tactile stimuli Coordination and gait: Has difficulty to perform FNF due to myoclonus bilaterally Gait was not assessed Labs I have personally reviewed Recent Labs 02/24/18 0530 WBC 15.67* RBC 2.88* HGB 9.9* HCT 29.9* MCV 104* MCH 34.4* MCHC 33.1 PLT 81* Recent Labs 02/23/18 1436 02/24/18 0530 02/24/18 1228 NA 139 -- 139 -- -- K 4.0 -- 4.0 -- -- CL 106 -- 106 -- -- CO2 28 -- 28 -- -- BUN -- -- 21 -- -- CREATININE 0.75 -- 0.75 -- -- GLUCOSEFINGE -- < > -- < > 103* MG 2.2 -- -- -- -- PHOS 3.6 -- -- -- -- < > = values in this interval not displayed. Recent Labs 02/23/18 2150 PHISTAT 7.47* PCOISTAT 39 POISTAT 84 POCTCO2 29* BEART 4 POCFIO2 24 Assessment Troy Anders is a 72 y.o. right handed woman with past medical history notable for CINTHIA on PAP therapy with poor adherence, hypertension, dyslipidemia, CAD and now s/p CABG and AVR on 02/22/2018. Neurology has been consulted for evaluation of what is believed to be a new left lower facial weakness and confusion and concern for a vascular insult. Since after her procedure, she has been on multiple sedative medications that are detailed above and she has had poor adherence to her PAP therapy. In addition, she has been febrile since yesterday with leukocytosis (downtrending). In neurological exam she is encephalopathic, but able to answer some questions and follow commands with directions, she does not have any language deficits. She does seem to have a mild left eye ptosis and subtle left lower facial weakness, however her family believe this is her baseline. She does not have any focal findings in her motor and sensory exam, but interestingly she has asterixis. Based on clinical history and neurologic exam, she does not appear to have any new focal neurological deficits that raises concern for a vascular event and no neuroimaging is recommended at this time, though if there remains any concern for focal neurologic deficits, an MRI could be obtained. The etiolog y of her encephalopathy is most likely toxic/metabolic (due to narcotic and sedative medications), or infectious (considering fever and leukocytosis), and discontinuation of sedative medication and further investigation for metabolic/infectious causes is recommended. Recommendations Encephalopathy -Please consider discontinuation of all of the sedative medications including Gabapentin and Tramadol -please encourage patient to use her CPAP at night and during daytime naps -toxic/metbolic infectious w/u considering fever and asterixis: please consider obtaining LFTs, ammonia, UA and CXR Left lower facial weakness -Per family this is patients baseline Recommendations relayed to Dr. Scales of primary team. Neurology will sign off. Please do not hesitate to call with any questions. Staffed with neurology attending Dr. Herberth Medina MD 02/24/2018 9:25 Attestation: I saw and examined the patient with the resident 02/24/2018. I agree with the findings and plan of care documented in the resident's note. Kit Kevin MD 02/24/2018 16:24 * Senait Candelaria - 02/22/2018 0223 EDT SICU Post-Op Cardiothoracic Surgery Admit Note ? HPI: Troy Anders is a 72 y.o. female who presents with a history of progressive shortness of breath, dyspnea on exertion, and tiredness. She had a cardiac catheterization on 02/08/[address] Arellano which showed a hemodynamically significant lesion in her left anterior descending coronary artery. She arrived in the SICU intubated and sedated. Her history was obtained from the chart. ?? Past Medical History: Diagnosis Date ??? Aortic stenosis ??? Depression ??? Endometrial cancer ([facility]) ??? Hyperlipidemia ??? Hypertension ??? Hypothyroid ??? CINTHIA (obstructive sleep apnea) Patient Active Problem List Diagnosis Code ??? Nonrheumatic aortic valve stenosis I35.0 ??? 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 shows a large WALTERS. LAD: Mid-vessel lesion: There is an 80% stenosis. Right coronary: Mid-vessel lesion: There is a 50% stenosis. Left internal mammary: Normal, well visualized. Normal-sized vessel. Preoperative Echo: 11/23/17 at [facility] 1) mild LVH, 2) EF 65%, 3) mild AI, 4) moderate to severe with AVarea 1.0 cm2, mean gradient 35 mm Hg ?? Risk Factors ?? Pre-Operative Medications: Other medications: ASA [X] Beta-Shelby [ ] Statin [ ] CARLO-I [X] Coumadin [ ] Plavix [ ] Other [ ] Doxazosin [ ] Finasteride [ ] HCTZ [ ] Phenix 3 FA [ ] ?? No Known Allergies ?? S/P AVR and CABGx1 ?? CABG: WALTERS - LAD ?? EF: 65% Intraoperative events: CVP 23 before case. Required bolus of phenylephrine coming off pump. ?? Pump Time: 76min Clamp Time: 54min Material Retained: ?? Chest Tube(s) Wires: Currently Pacing: [X] Ch [X] Cordis [ ] SWAN [X] A-Line [ ] IABP [X]Mediastinal 36 Mongolian [X] Mediastinal 24 Shane ?? [X] Left pleural 19 Shane [ ] Right pleural 19 Shane [ ]atrial [ ] ventricular [X] both [ ]yes [X] no FLUIDS: Blood Products Crystalloid UOP 500 cc cell saver [ ]PRBC units [ ]FFP units [ ] Platelets 2000 cc LR 500 cc ? Post-op: Infusions: Phenylephrine 20mcg/min Insulin 2u/hr ?? Intubation Grade: Likely Difficult. Used lightwand for intubation ?? Vent Settings: ASV, FiO2 50% Lines: Right IJ CVC, Left radial A-line, Left AC PIV, ETT, Ch, Chest tube, 2x Shane drain ?? Exam: Gen: intubated, sedated Heart: RRR Lungs: CTAB, sternum stable with provena in place, incision C/D/I, chest tube w/serosang drainage Abd: S, ND : ch in place with clear urine Ext: WWP, no LE edema bilaterally ?? Outs: UOP: 75 mL Chest Tube: 120 mL ?? Assessment and Plan:@ is a 72 y.o. female now POD#0 s/p AVR and CABGx1 for severe and CAD. [facility]. ?? Neuro: Propofol for sedation while intubated. Pain control per post-op orders. CV: Monitor hemodynamic status closely. Goal SBP < 120. Plasmalyte if volume needed. Titrate pressors as needed. F/u post-op ECG. Pulm: Wean vent as able as patient is warmed up. F/u post-op portable CXR. GI/FEN: NPO for now. Reassess on extubation. Can advance to cardiac diet (< 2g sodium) once extubated and able to tolerate. Check lytes now and in 6 hours. Renal: Monitor UOP. Endo: Monitor glucose and manage with insulin gtt. ID: Antibiotics x 24 hrs per protocol Heme: F/u post-op hemagram and 6 hour Hct. Proph: SCD, PPI SENAIT CANDELARIA 02/22/2018 [id number] documented in this encounter OR Notes * OR Surgeon - Tyrell Vela MD - 02/22/2018 0000 EDT OPERATIVE REPORT SERVICE DATE: 02/22/2018 PREOPERATIVE DIAGNOSES: Coronary artery disease, aortic stenosis. PROCEDURE: On-pump coronary artery bypass x1 (left internal mammary to LAD), aortic valve replacement (Carpio bovine pericardial valve, size small). POSTOPERATIVE DIAGNOSES: Coronary artery disease, idiopathic tricuspid aortic stenosis. SURGEON: Tyrell Vela MD HUMANITIES AND LANGUAGES PROFESSOR: Wm KLINE ANESTHESIA: Jose Maldonado MD and Arabella Quesada MD FINDINGS: Severely calcified trileaflet aortic valve. Moderate left ventricular hypertrophy. The patient's prosthesis fit extremely well with minimal gradient and no evidence of perivalvular leak. NARRATIVE: A 3-part WHO surgical time-out occurred for this procedure. Intravenous antibiotics weregiven within 30 minutes of incision. A hard stop, cardiopulmonary bypass was done pre and post bypass. Due to lack of a qualified surgical appliance fitter, Mr Wm Magana provided first assistance for this complex cardiac surgical operation. After satisfactory induction of general single-lumen endotracheal anesthesia, the patient's chest, abdomen, groins and legs were prepped with DuraPrep and draped in the usual sterile fashion. Median sternotomy was performed, the internal mammary taken down from the left side, the pericardium was opened and the aorta was cannulated with 2 pledgeted 2-0 Ethibond sutures. A 2-stage venous catheter was passed through the right atrial appendage. A vent was placed across the right superior pulmonary vein and directed to the left ventricle. An antegrade catheter was passed in the ascending aorta. After satisfactory heparinization, the patient was placed on cardiopulmonary bypass. The aorta was cross clamped and antegrade cardioplegia was given. The first anastomosis was a spatulated end-to-side anastomosis between mid LAD and internal mammary artery using running 7-0 Prolene suture. Immediate rewarming was noted with release of the JAYCE bulldog clamp. The bulldog clamp was placed back on. Cardioplegia was then given again antegrade. A transverse aortotomy was made. A calcified trileaflet aortic valve was excised and the annulus decalcified. A small Lalo valve was chosen. Three separate 4-0 Prolene sutures were placed at the base of each sinus and the valve was lowered into place and deployed. However, the valve deployed high and the valve was redeployed in a similar fashion in the correct position. The balloon was inflated 30 seconds to 4 atmospheres. The valve seated extremely well and was intra-annular in a 360-degree fashion. The aortotomy was closed with a running 3-0 Prolene Mariela type closure. The cross clampwas removed and the heart came back into ventricular fibrillation. It took one cardioversion to convert coarse ventricular fibrillation to a normal sinus rhythm with a normal QRS complex. Twenty minutes or so of rewarming and de-airing occurred. Transesophageal echocardiography revealed no air in the left atrium, aorta or left ventricle. Carbon dioxide was infused in the operative field at 2 L per minute while the cross clamp was on. The patient was weaned from cardiopulmonary bypass without any difficulty at all. Protamine was given, hemostasis achieved, all cannulas removed and pursestring sutures were tied down. The left chestwas drained with a 19-Mongolian Shane drain, the substernal space was drained with a straight 36-Mongolian chest tube. A 24-Mongolian Shane drain was placed along the diaphragm directed posteriorly. The sternum was reapproximated with 6 doubly looped heavy-gauge stainless steel wires. The rest of the incision was closed in layers. The patient tolerated the procedure well and was transported back to the ICU in critical condition. Unless otherwise noted, there were no complications, no blood loss, no cultures obtained, no specimens removed, and no drains retained. Tyrell Vela MD 06 03 PM / Tyrell Vela MD cn Confirmation: [id number] Dictation ID: [id number] cc:Yonatan Burch MD documented in this encounter Miscellaneous Notes * Plan of Care - Shireen Medrano RN - 02/27/2018 1024 EDT Problem: Daily Care Plan Goals Goal: Care Plan Documentation Outcome: Completed Date Met: 02/27/18 02/27/18 0807 Care Plan Focus Area of Focus Discharge Plan Goal This Shift Pt will be discharged to rehab center today Data: Pt has been oob to the BR with assist using a walker. Pt has been alert and oriented x3. Shane drain and Prevena wound vac were dc'd by Dr. Scales this am. Incision is clean and dry, dermabondapplied by . [facility] Action: Saline lock and telemetry were dc'd. Attempted to call report to [facility] x2, no answer and message was left. Response: Pt was stable at the time of discharge. Pt left via ambulance with attendants. [facility] SHIREEN MEDRANO RN 02/27/2018 11:59 Contacted [facility] again, call was answered, and report was given without issues. * Plan of Care - Iza Pedro RN - 02/27/2018 0345 EDT Problem: Daily Care Plan Goals Goal: Care Plan Documentation 02/26/18 1948 Care Plan Focus Area of Focus Pain/ Comfort Goal This Shift Patient's pain/discomfort is mangeable/tolerable Data: Patient c/o incisional pain /10. Patient POD #5 from tissue AVR, CABG x 3. Action: Patient medicated with scheduled tylenol. Turned and repositioned Q2H to maintain skin integrity. Patient unable to turn on her own. Response: Patient comfortably sleeping upon reassessment. Continue to monitor and intervene if necessary. Iza Pedro RN 02/27/2018 3:38 * Plan of Care - Armando Dey RN - 02/26/2018 1710 EDT Problem: Daily Care Plan Goals Goal: Care Plan Documentation Pain Note D - The patient is POD4 from AVR and CABG x 3 reported incisional pain and had one episode of nausea with out vomiting. A - Pain was assessed and treated with medication ordered as per orders. The pain management techniques were effective R - Denies the need for further intervention. Will continue to assess and treat pain levels as per policy and prn. 02/26/2018 17:03 ARMANDO DEY RN * Plan of Care - Marty Finley - 02/26/2018 1022 EDT 02/26/18 1022 Medicare IM Notice: IM notice status Patient received notification verbally and in writing while in hospital. IM notice given at discharge? Yes * Plan of Care - Iza Pedro RN - 02/26/2018 0336 EDT Problem: Daily Care Plan Goals Goal: Care Plan Documentation 02/25/182035 Care Plan Focus Area of Focus Neuro Status Goal This Shift Patient will be more awake Data: Patient drowsy but oriented x 3. Patient c/o headache and incisional pain. Action: Patient medicated with scheduled tylenol and PRN tramadol. Turned and repositioned Q2H. Assisted to the bedside commode to void. Response: Patient comfortably sleeping upon reassessment. Bed alarm on for safety. Continue to monitor and intervene if necessary. Iza Pedro RN 02/26/2018 3:26 * Plan of Care - Sherry Queen RN - 02/25/2018 1444 EDT Problem: Daily Care Plan Goals Goal: Care Plan Documentation Outcome: Met This Shift Data: Pt is POD 3 from a CABG time 3 and an AVR. She is still drowsy but woke up when many family members came to visit. Pt is oriented times 3. Action: Had patient out of bed to chair and to commode. Went down to Xray with her for her 3 day post of XRay. Response: Will continue to monitor. SHERRY QUEEN RN 02/25/2018 14:42 * Plan of Care - Aleena Davila RN - 02/24/2018 1955 EDT Problem: Daily Care Plan Goals Goal: Care Plan Documentation Outcome: Ongoing Data: Pt is POD#2, s/p CABG and AVR. Patient drowsy throughout the day, with becoming more alert asthe day progressed today. Cordis, 3 chest tubes to negative 20 suction, Ch in on assessment. Insulin drip on at 1.5 unit/hr Action: Removed Ch as per orders. Removed cordis as per order - patient's HR went into bigeminy during the procedure and the team was notified. ECG order was received and done. Chest tubes were removed at bedside by providers earlier today as well. Evening dose of lopressor was administered early tonight as per verbal order of MD Segura Response: Patient voided 125cc just before 1900. Agreed to sit OOB to chair, and now visiting with her grandson. Call wright within reach. Aleena Davila RN 02/24/2018 19:45 * Plan of Care - Aleida Smyth RN - 02/24/2018 0603 EDT Problem: Daily Care Plan Goals Goal: Care Plan Documentation Outcome: Met This Shift 02/23/18 1957 Care Plan Focus Area of Focus Circulatory Status Goal This Shift Maintain hemodynamic stability D-Patient is POD#2 s/p CABGx1 and AVR. Per report patient drowsy through the day but improving. Patient increasingly somnolent at start of shift, opening eyes when addressed, but quickly falling backasleep. Oriented to self and place, slurred/hesitant speech. Pupils small, right reactive to light,left sluggish. Slightly weaker on left side, but difficult to assess as patient not following most commands at this time. Slight facial droop on left with smiling. Patient pale/diaphoretic, ongoing low grade temps, tmax 38.4, vitals otherwise stable. AV wires in place, upon reviewing tele at start of shift, patient found to be pacing inappropriately. Insulin gtt infusing per SEP. CTx3 y'd to -20sxn, no air leak. A-Pacer turned off, provider notified about inappropriate pacing and patient overall condition. Pacer to remain off at this time per MD. MD to bedside to assess, 0.2mg narcan administered per order with immediate improvement. ABGs collected, unremarkable. Blood sugars monitored/insulin gtt titratedper protocol. Patient repositioned q2h to maintain skin integrity. R-Patient interactive and able to follow commands following narcan. Narcotics discontinued. Patientstable and resting comfortably, will continue to monitor. * Plan of Care - Aleena Davila RN - 02/23/2018 1552 EDT Problem: Daily Care Plan Goals Goal: Care Plan Documentation Outcome: Ongoing 02/23/18 1415 Care Plan Focus Area of Focus Safety Goal This Shift oriented to room and unit Admission Note D - This is a(n) 72 y.o. female who is being transfered from SICU This is post-op day 1 for the patient. Patient is status-post cardiothoracic surgery. Patient has 3 chest tubes, y'ed together to -20 suction, with no air leak present. Insulin drip at 2 units/hr; FS checked every 2 hours. Patient very drowsy, somnolent; unable to answer questions andfalls asleep while being assessed. Ch in with clear, yellow urine. AV wires in on arrival. RightIJ in - with a small bleeding under the dressing A - Vital signs taken. Patient and her daughter oriented to unit and room. Call light and bed use reviewed. Call light within reach, bed placed in low position and table at bedside. Room is free of clutter. Informed CN as well as MD Beasley and MD Segura of concerns about patient's somnolence and bleeding under IJ's dressing. Holding PO medications as per conversation with MD Beasley as patient unable to swallow safely at this time R - Patient is sleeping at this time. Daughter at bedside, declining needs at this time. Continue to assess and monitor patient. 02/23/2018 15:46 Aleena Davila RN * Plan of Care - Maureen Parisi RN - 02/23/2018 1007 EDT Problem: Daily Care Plan Goals Goal: Care Plan Documentation 02/23/18 0800 Care Plan Focus Area of Focus Mobility Goal This Shift increase activity per order as tolerated Data: See flow sheet for vs/data. Action: Monitor for changes in hemodynamics, pain level, increase activity per order as tolerated. Response: Pt drowsy. ABG obtained. Exspiron showing wave form in range. Pt awakens to name after two tries and goes back to sleep. Oriented x3. PT awake enough , with assistance, to dangle and hold self in a sitting position. Daughter at bedside. Will continue to monitor for changes. Maureen Parisi RN 02/23/2018 10:04 Late entry11:00-Dr beasley in to see pt d/t pt being sleepy. Dr Vela in on am rounds as well.Plan to still transfer pt. Pt awakens to name, follows commands, [facility]. Able to state she had surgery. She stays awake for very short periods of time. Needs to be reawakened to finish assessment. VS stable. See flow sheet. Sat on edge of bed with two assist and was able to hold self up in sitting position after stabilized with balance. Did not get OOB d/t being to sleepy to stand. 13:00 Dr Beasley in to see pt again d/t sleepiness and transfer. Pt again awakens to name and falls back to sleep. Neuro assessment remains the same as documented at 11:00. Plan is to still transfer to floor. 13:30-Pt transferred to [place] [id number]. Daughter accompanied pt. Report given and charge nurse at bedside. Pt continues to be sleepy, awakened to name, able to [facility] and had surgery. BPand sat stable with transfer. * Anesthesia Post-Eval - Omer Scott CRNA - 02/23/2018 0840 EDT Anesthesia Post op Note Troy Anders [id number] Anesthesia received: General; Vital Signs: Temp: 37.8 ??C (100 ??F), Heart Rate: 83 BPM, BP: 127/56, Resp: 21, SpO2: 98 % Vital signs Stable: Yes Consciousness: Awake Patient's participation in evaluation:Able to participate Temperature Status: Normothermic Respiratory Status: Airway patent Supplemental O2: Room air Oxygen Saturation: Appropriate for condition Cardiovascular Status: Appropriate for condition Post-op Hydration: Adequate Nausea / Vomiting: None Pain Control: Adequate Current Pain Score: Numeric Pain Level (Scale 1-10): 4, Adult Nonverbal Pain ScaleTotal: 0 Post-op Assessment: Tolerated procedure well, No evidence of recall Disposition: Inpatient Complications: No apparent anesthetic complications Omer Scott CRNA 02/23/2018 8:40 * Plan of Care - Jesus Henriquez, STACIE - 02/23/2018 0622 EDT Data: Troy is now POD#1 s/p AVR and CABGx1. Remains very drowsy, though wakes to take pills or use IS if prompted enough. Surya weaned to off this morning. SBP goal <120 MAP>55. Now in NSR. A-line positional. Extubated at 1915 to home CPAP, but later switched to 2L NC. Weakly pulls IS to 200-500. Weak cough. Tolerating clear liquids at this time. Ch with low UOP (~25cc/hr) Chest tubes draining serosang fluid with amounts WNL. Q2H FSBG for insulin gtt. Action: turns for skin integrity, pain meds as charted on SEP, encouraged IS. Response: pt sleeping most of shift, remains drowsy but more alert this morning. 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 Anesth: GET Attending MD Erica; Resident MD Dipak Findings: Severely calcified trileaflet AV, CAD FLUIDS: Blood Products Crystalloid UOP 500 cc cell saver [ ]PRBC units [ ]FFP units [ ] Platelets 2000 cc LR 500 cc Pump Time: 76 min Clamp Time: 54 min Low Temps: Systemic 31.9 degrees C Material Retained: Chest Tube(s) Wires: Currently Pacing: [X] Ch [X] Cordis [ ] SWAN [X] A-Line [ ] IABP [X]Mediastinal 36 Mongolian [X] Mediastinal 24 Shane [X] Left pleural 19 Shane [ ] Right pleural 19 Shane [ ]atrial [ ] ventricular [X] both [ ]yes [X] no Specimen: duckwater AV Cultures: none Sponge & Needle count correct [X] Complications: none [X] Category: [X] clean, [ ] clean/contaminated, [ ] contaminated, [ ] dirty/infected Dispo: to SICU, intubated, on surya and insulin ELIUD Cat documented in this encounter Plan of Treatment Upcoming Encounters Date Type Department Care Team (Late st Contact Info) Description 03/08/2025 11:[address] [facility] [address] [place] [address] Cynthia Salinas MD [address] [place] [address], [facility] [address] [place] [address] Scheduled Referrals Name Type Priority Associated Diagnoses Order Schedule PROVIDER FOLLOW-UP INSTRUCTIONS Outpatient Referral Routine Ordered: 02/27/2018 PROVIDER FOLLOW-UP INSTRUCTIONS Outpatient Referral Routine Ordered: 02/27/2018 PROVIDER FOLLOW-UP INSTRUCTIONS Outpatient Referral Routine Ordered: 02/27/2018 AMB CONS/FOLLOW UP PRIMARY CARE PHYSICIAN Outpatient Referral Routine Nonrheumatic aortic valve stenosis 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, unspecified vessel or lesion type (HCC-CMS) Ordered: 02/27/2018 AMB CONS/FOLLOW UP CARDIOLOGY Outpatient Referral Routine 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, unspecified vessel or lesion type (HCC-CMS) Nonrheumatic aortic valve stenosis Ordered: 02/27/2018 AMB CONS/FOLLOW UP CARDIOTHORACIC SURGERY Outpatient Referral Routine 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, unspecified vessel or lesion type (HCC-CMS) Nonrheumatic aortic valve stenosis Ordered: 02/27/2018 documented as of this encounter Procedures Procedure Name Priority Date/Time Associated Diagnosis Comments ECG REPORT - SCANNED 03/03/2018 7:23 EDT ECG REPORT - SCANNED 03/03/2018 7:23 EDT IMPLANT RECORD - SCANNED 03/03/2018 7:23 EDT ECG REPORT - SCANNED 03/01/2018 15:03 EDT GLUCOSE, GLUCOMETER Routine 02/27/2018 7 :09 EDT COMPLETE BLOOD COUNT Routine 02/27/2018 5:56 EDT BUN Routine 02/27/2018 5:56 EDT CREATININE Routine 02/27/2018 5:56 EDT ELECTROLYTES Routine 02/27/2018 5:56 EDT GLUCOSE, GLUCOMETER Routine 02/26/2018 2 2:01 EDT GLUCOSE, GLUCOMETER Routine 02/26/2018 1 6:40 EDT GLUCOSE, GLUCOMETER Routine 02/26/2018 1 1:13 EDT ECG REPORT - SCANNED 02/26/2018 10:54 EDT ECG REPORT - SCANNED 02/26/2018 10:54 EDT GLUCOSE, GLUCOMETER Routine 02/26/2018 6 :28 EDT COMPLETE BLOOD COUNT Routine 02/26/2018 5:20 EDT BUN Routine 02/26/2018 5:20 EDT CREATININE Routine 02/26/2018 5:20 EDT ELECTROLYTES Routine 02/26/2018 5:20 EDT GLUCOSE, GLUCOMETER Routine 02/25/2018 2 1:16 EDT GLUCOSE, GLUCOMETER Routine 02/25/2018 1 6:44 EDT CHEST PA AND LATERAL Routine 02/25/2018 13:18 EDT GLUCOSE, GLUCOMETER Routine 02/25/2018 1 2:12 EDT GLUCOSE, GLUCOMETER Routine 02/25/2018 9 :19 EDT HEPARIN PF4 IGG AB (HIT), S Routine 02/25/2018 8:07 EDT GLUCOSE, GLUCOMETER Routine 02/25/2018 8 :06 EDT EKG 12-LEAD Routine 02/25/2018 7:33 EDT GLUCOSE, GLUCOMETER Routine 02/25/2018 6 :21 EDT GLUCOSE, GLUCOMETER Routine 02/25/2018 4 :53 EDT GLUCOSE, GLUCOMETER Routine 02/25/2018 2 :31 EDT COMPLETE BLOOD COUNT Routine 02/25/2018 2:15 EDT BUN Routine 02/25/2018 2:15 EDT MAGNESIUM Routine 02/25/2018 2:15 EDT CREATININE Routine 02/25/2018 2:15 EDT CALCIUM Routine 02/25/2018 2:15 EDT ELECTROLYTES Routine 02/25/2018 2:15 EDT EKG 12-LEAD Routine 02/25/2018 2:01 EDT GLUCOSE, GLUCOMETER Routine 02/25/2018 0 :59 EDT GLUCOSE, GLUCOMETER Routine 02/24/2018 2 3:03 EDT GLUCOSE, GLUCOMETER Routine 02/24/2018 2 0:57 EDT GLUCOSE, GLUCOMETER Routine 02/24/2018 1 9:49 EDT EKG 12-LEAD STAT 02/24/2018 17:49 EDT GLUCOSE, GLUCOMETER Routine 02/24/2018 1 7:20 EDT GLUCOSE, GLUCOMETER Routine 02/24/2018 1 5:39 EDT GLUCOSE, GLUCOMETER Routine 02/24/2018 1 4:29 EDT PTT Routine 02/24/2018 13:13 EDT PROTIME Routine 02/24/2018 13:13 EDT BILIRUBIN DIRECT/INDIRECT Routine 02/24/2018 13:13 EDT ALT Routine 02/24/2018 13:13 EDT AST Routine 02/24/2018 13:13 EDT PROTEIN, TOTAL Routine 02/24/2018 13:13 EDT ALKALINE PHOSPHATASE Routine 02/24/2018 13:13 EDT AMMONIA Routine 02/24/2018 13:13 EDT ALBUMIN Routine 02/24/2018 13:13 EDT GLUCOSE, GLUCOMETER Routine 02/24/2018 1 2:28 EDT ECG REPORT - SCANNED 02/24/2018 12:00 EDT URINE CULTURE IF POSITIVE Routine 02/24/2018 11:58 EDT URINE CHEMICAL (DIP) & SEDIMENT (MICRO) WITHOUT REFLEX TO CULTURE Routine 02/24/2018 11:58 EDT GLUCOSE, GLUCOMETER Routine 02/24/2018 1 0:29 EDT GLUCOSE, GLUCOMETER Routine 02/24/2018 8 :28 EDT GLUCOSE, GLUCOMETER Routine 02/24/2018 6 :34 EDT SMEAR REVIEW Routine 02/24/2018 5:30 EDT COMPLETE BLOOD COUNT Routine 02/24/2018 5:30 EDT BUN Routine 02/24/2018 5:30 EDT CREATININE Routine 02/24/2018 5:30 EDT ELECTROLYTES Routine 02/24/2018 5:30 EDT GLUCOSE, GLUCOMETER Routine 02/24/2018 4 :23 EDT GLUCOSE, GLUCOMETER Routine 02/24/2018 2 :23 EDT GLUCOSE, GLUCOMETER Routine 02/24/2018 1 :22 EDT GLUCOSE, GLUCOMETER Routine 02/24/2018 0 :18 EDT GLUCOSE, GLUCOMETER Routine 02/23/2018 2 3:07 EDT GLUCOSE, GLUCOMETER Routine 02/23/2018 2 2:00 EDT ZZBLOOD GAS, G3 ISTAT Routine 02/23/2018 21:50 EDT GLUCOSE, GLUCOMETER Routine 02/23/2018 2 0:59 EDT GLUCOSE, GLUCOMETER Routine 02/23/2018 1 9:59 EDT GLUCOSE, GLUCOMETER Routine 02/23/2018 1 7:43 EDT GLUCOSE, GLUCOMETER Routine 02/23/2018 1 6:21 EDT CALCIUM, IONIZED Routine 02/23/2018 14:3 6 EDT PHOSPHORUS Routine 02/23/2018 14:36 EDT MAGNESIUM Routine 02/23/2018 14:36 EDT CREATININE Routine 02/23/2018 14:36 EDT ELECTROLYTES Routine 02/23/2018 14:36 EDT ECG REPORT - SCANNED 02/23/2018 14:22 EDT GLUCOSE, GLUCOMETER Routine 02/23/2018 1 4:10 EDT GLUCOSE, GLUCOMETER Routine 02/23/2018 1 1:58 EDT GLUCOSE, GLUCOMETER Routine 02/23/2018 9 :41 EDT ZZBLOOD GAS, G3 ISTAT Routine 02/23/2018 8:25 EDT GLUCOSE, GLUCOMETER Routine 02/23/2018 8 :07 EDT PORTABLE CHEST 1 VIEW Routine 02/23/2018 6:44 EDT GLUCOSE, GLUCOMETER Routine 02/23/2018 6 :05 EDT EKG 12-LEAD Routine 02/23/2018 5:22 EDT BUN STAT 02/23/2018 4:53 EDT CREATININE STAT 02/23/2018 4:53 EDT ELECTROLYTES STAT 02/23/2018 4:53 EDT GLUCOSE, GLUCOMETER Routine 02/23/2018 3 :51 EDT SLIDE REQUEST Routine 02/23/2018 2:55 EDT COMPLETE BLOOD COUNT Routine 02/23/2018 2:55 EDT GLUCOSE, GLUCOMETER Routine 02/23/2018 2 :02 EDT GLUCOSE, GLUCOMETER Routine 02/23/2018 0 :01 EDT GLUCOSE, GLUCOMETER Routine 02/22/2018 2 2:00 EDT ZZBLOOD GAS, G3 ISTAT Routine 02/22/2018 20:22 EDT AIRWAY CLEARANCE THERAPY Routine 02/22/2018 20:05 EDT AIRWAY CLEARANCE THERAPY Routine 02/22/2018 20:05 EDT RESPIRATORY CARE EVALUATION ONLY Routine 02/22/2018 20:05 EDT RESPIRATORY CARE EVALUATION ONLY Routine 02/22/2018 20:05 EDT GLUCOSE, GLUCOMETER Routine 02/22/2018 1 9:56 EDT EXTUBATION Routine 02/22/2018 19:00 EDT ZZBLOOD GAS, G3 ISTAT Routine 02/22/2018 18:56 EDT POTASSIUM Routine 02/22/2018 18:49 EDT SLIDE REQUEST Routine 02/22/2018 18:04 EDT COMPLETE BLOOD COUNT Routine 02/22/2018 18:04 EDT SURGICAL PATHOLOGY Routine 02/22/2018 18 :03 EDT GLUCOSE, GLUCOMETER Routine 02/22/2018 1 8:01 EDT GLUCOSE, GLUCOMETER Routine 02/22/2018 1 5:53 EDT ZZBLOOD GAS, G3 ISTAT Routine 02/22/2018 13:50 EDT GLUCOSE, GLUCOMETER Routine 02/22/2018 1 3:47 EDT INPATIENT ADD-ON Routine 02/22/2018 13:3 0 EDT INPATIENT ADD-ON Routine 02/22/2018 12:5 0 EDT MRSA PCR Routine 02/22/2018 12:40 EDT EKG 12-LEAD Routine 02/22/2018 12:39 EDT PORTABLE CHEST PA CENTRAL LINE/PICC/ET TUBE,INITIAL INSERTION STAT 02/22/2018 12:38 EDT GLUCOSE, GLUCOMETER Routine 02/22/2018 1 2:36 EDT COMPLETE BLOOD COUNT Routine 02/22/2018 12:32 EDT BUN Routine 02/22/2018 12:32 EDT POTASSIUM Routine 02/22/2018 12:32 EDT PHOSPHORUS Routine 02/22/2018 12:32 EDT MAGNESIUM Routine 02/22/2018 12:32 EDT HEMOGLOBIN A1C Routine 02/22/2018 12:32 EDT CREATININE Routine 02/22/2018 12:32 EDT BLOOD GAS, CG8 ISTAT Routine 02/22/2018 11:22 EDT ACT, CELITE ISTAT Routine 02/22/2018 11: 21 EDT BLOOD GAS, CG8 ISTAT Routine 02/22/2018 10:57 EDT ACT, CELITE ISTAT Routine 02/22/2018 10: 56 EDT BLOOD GAS, CG8 ISTAT Routine 02/22/2018 10:32 EDT ACT, CELITE ISTAT Routine 02/22/2018 10: 31 EDT BLOOD GAS, CG8 ISTAT Routine 02/22/2018 10:05 EDT ACT, CELITE ISTAT Routine 02/22/2018 10: 04 EDT ACT, CELITE ISTAT Routine 02/22/2018 9:1 9 EDT BLOOD GAS, CG8 ISTAT Routine 02/22/2018 8:43 EDT ACT, CELITE ISTAT Routine 02/22/2018 8:4 2 EDT ABO/RH Routine 02/22/2018 6:52 EDT BUN STAT 02/22/2018 6:52 EDT CREATININE STAT 02/22/2018 6:52 EDT ANESTH TRANSESOPHAGEAL ECHO Routine 02/22/2018 6:50 EDT ORDERS - SCANNED 02/10/2018 11:3 7 EDT documented in this encounter Results * ECG REPORT - SCANNED (03/03/2018 7:23 EDT) 03/03/2018 7:23 EDT Scan 2 [employer] PROCEDURE/MINOR NANCY GICAL ORDERABLES * ECG REPORT - SCANNED (03/03/2018 7:23 EDT) 03/03/2018 7:23 EDT Scan 2 [employer] PROCEDURE/MINOR NANCY GICAL ORDERABLES * IMPLANT RECORD - SCANNED (03/03/2018 7:23 EDT) 03/03/2018 7:23 EDT Scan 2 [employer] PROCEDURE/MINOR NANCY GICAL ORDERABLES * ECG REPORT - SCANNED (03/01/2018 15:03 EDT) 03/01/2018 15:0 3 EDT Scan 2 [employer] PROCEDURE/MINOR NANCY GICAL ORDERABLES * (ABNORMAL) GLUCOSE, GLUCOMETER (02/27/2018 7:09 EDT) Glucose, Fingerstick 122(H) 70 - 100 mg/dl 02/27/2018 7:12 [facility] [employer] [place] [id number] 02/27/2018 7:12 [facility] Comment:Test Performed by [facility] Services BLOOD SPECIMEN / Unknown 02/27/2018 7:09 EDT 02/27/2018 7:12 EDT Tyrell Vela MD CHEMISTRY & BLOOD GAS ORDERABLES [facility] [address] [place] [address] * (ABNORMAL) COMPLETE BLOOD COUNT (02/27/2018 5:56 EDT) WBC 11.88 4.0 - 12.4 K/cmm 02/27/2018 7:16 [facility] RBC 2.82(L) 3.86 - 5.04 M/cmm 02/27/2018 7:16 [facility] Hemoglobin 9.7(L) 11.6 - 15.2 gm/dl 02/27/2018 7:16 [facility] HCT 28.2(L) 34.9 - 44.4 % 02/27/2018 7:16 [facility] MCV 100(H) 81 - 98 fl 02/27/2018 7:16 [facility] MCH 34.4(H) 26.7 - 33.3 pg 02/27/2018 7:16 [facility] MCHC 34.4 32.1 - 35.9 gm/dl 02/27/2018 7:16 [facility] RDW-CV 13.3 <14.7 % 02/27/2018 7:16 [facility] RDW-SD 48.4 <50.4 fl 02/27/2018 7:16 [facility] PLT 113(L) 141 - 377 K/cmm 02/27/2018 7:16 [facility] MPV 12.6 9.5 - 12.7 fl 02/27/2018 7:16 [facility] Blood specimen (specimen) BLOOD SPECIMEN / Unknown 02/27/2018 5:56 EDT 02/27/2018 6:58 EDT Adryan Beasley MD HEMATOLOGY & PF4 ORD ERABLES [facility] [address] [place] [address] * CREATININE (02/27/2018 5:56 EDT) Creatinine 0.70 0.52 - 1.04 mg/dl 02/27/2018 7:36 EDT [facility] GFR, Calculated 87 >60 ml/min/1.7 3m2 02/27/2018 7:36 EDT [facility] Comment: eGFR calculated using CKD-EPI equation for non Americans. Multiply eGFR by 1.16 for Americans. Blood specimen (specimen) BLOOD SPECIMEN / Unknown 02/27/2018 5:56 EDT 02/27/2018 6:58 EDT Adryan Beasley MD CHEMISTRY & BLOOD GA S ORDERABLES Performing Organization Address [facility]/ZIP Co de Phone Number [facility] [address] [place] [address] * BUN (02/27/2018 5:56 EDT) BUN 20 10 - 26 mg/dl 02/27/2018 7:36 EDT [facility] Blood specimen (specimen) BLOOD SPECIMEN / Unknown 02/27/2018 5:56 EDT 02/27/2018 6:58 EDT Adryan Beasley MD CHEMISTRY & BLOOD GA S ORDERABLES Performing Organization Address [facility] Co de Phone Number [facility] [address] [place] [address] * (ABNORMAL) ELECTROLYTES (02/27/2018 5:56 EDT) Sodium 135(L) 136 - 145 mEq/L 02/27/2018 7:36 EDT [facility] Potassium 3.9 3.5 - 5.0 mEq/L 02/27/2018 7:36 EDT [facility] Chloride 101 96 - 110 mEq/L 02/27/2018 7:36 EDT [facility] CO2 28 22 - 32 mEq/L 02/27/2018 7:36 EDT [facility] Blood specimen (specimen) BLOOD SPECIMEN / Unknown 02/27/2018 5:56 EDT 02/27/2018 6:58 EDT Adryan Beasley MD CHEMISTRY & BLOOD GA S ORDERABLES Performing Organization Address [facility] Co de Phone Number [facility] [address] [place] [address] * (ABNORMAL) GLUCOSE, GLUCOMETER (02/26/2018 22:01 EDT) Glucose, Fingerstick 175(H) 70 - 100 mg/dl 02/26/2018 22:02 EDT [facility] [employer] [place] [id number] 02/26/2018 22:02 EDT [facility] Comment:Test Performed by [facility] BLOOD SPECIMEN / Unknown 02/26/2018 22:01 EDT 02/26/2018 22:02 EDT Tyrell Vela MD CHEMISTRY & BLOOD GAS ORDERABLES Performing Organization Address [facility] Co de Phone Number [facility] [address] [place] [address] * (ABNORMAL) GLUCOSE, GLUCOMETER (02/26/2018 16:40 EDT) Glucose, Fingerstick 116(H) 70 - 100 mg/dl 02/26/2018 16:42 EDT [facility] [employer] [place] [id number] 02/26/2018 16:42 EDT [facility] Comment:Test Performed by [facility] BLOOD SPECIMEN / Unknown 02/26/2018 16:40 EDT 02/26/2018 16:42 EDT Tyrell Vela MD CHEMISTRY & BLOOD GAS ORDERABLES [facility] [address] [place] [address] * (ABNORMAL) GLUCOSE, GLUCOMETER (02/26/2018 11:13 EDT) Glucose, Fingerstick 119(H) 70 - 100 mg/dl 02/26/2018 11:20 EDT [facility] [employer] [place] [id number] 02/26/2018 11:20 EDT [facility] Comment:Test Performed by [facility] BLOOD SPECIMEN / Unknown 02/26/2018 11:13 EDT 02/26/2018 11:20 EDT Tyrell Vela MD CHEMISTRY & BLOOD GAS ORDERABLES Performing Organization Address City/[facility] Co de Phone Number [facility] [address] [place] [address] * ECG REPORT - SCANNED (02/26/2018 10:54 EDT) 02/26/2018 10:5 4 EDT Scan 2 [employer] PROCEDURE/MINOR NANCY GICAL ORDERABLES * ECG REPORT - SCANNED (02/26/2018 10:54 EDT) 02/26/2018 10:5 4 EDT Scan 2 [employer] PROCEDURE/MINOR NANCY GICAL ORDERABLES * (ABNORMAL) GLUCOSE, GLUCOMETER (02/26/2018 6:28 EDT) Glucose, Fingerstick 128(H) 70 - 100 mg/dl 02/26/2018 6:32 EDT [facility] [employer] [place] [id number] 02/26/2018 6:32 EDT [facility] Comment:Test Performed by [facility] BLOOD SPECIMEN / Unknown 02/26/2018 6:28 EDT 02/26/2018 6:32 EDT Tyrell Vela MD CHEMISTRY & BLOOD GAS ORDERABLES Performing Organization Address City/[facility]/ZIP Co de Phone Number [facility] [address] [place] [address] * (ABNORMAL) COMPLETE BLOOD COUNT (02/26/2018 5:20 EDT) WBC 12.25 4.0 - 12.4 K/cmm 02/26/2018 7:11 [facility] RBC 2.86(L) 3.86 - 5.04 M/cmm 02/26/2018 7:11 [facility] Hemoglobin 9.6(L) 11.6 - 15.2 gm/dl 02/26/2018 7:11 [facility] HCT 28.7(L) 34.9 - 44.4 % 02/26/2018 7:11 [facility] MCV 100(H) 81 - 98 fl 02/26/2018 7:11 [facility] MCH 33.6(H) 26.7 - 33.3 pg 02/26/2018 7:11 [facility] MCHC 33.4 32.1 - 35.9 gm/dl 02/26/2018 7:11 [facility] RDW-CV 13.2 <14.7 % 02/26/2018 7:11 [facility] RDW-SD 48.7 <50.4 fl 02/26/2018 7:11 [facility] PLT 96(L) 141 - 377 K/cmm 02/26/2018 7:11 [facility] MPV 12.9(H) 9.5 - 12.7 fl 02/26/2018 7:11 [facility] Blood specimen (specimen) BLOOD SPECIMEN / Unknown 02/26/2018 5:20 EDT 02/26/2018 6:57 EDT Adryan Beasley MD HEMATOLOGY & PF4 ORD ERABLES Performing Organization Address City/[facility]/ZIP Co de Phone Number [facility] [address] [place] [address] * CREATININE (02/26/2018 5:20 EDT) Creatinine 0.58 0.52 - 1.04 mg/dl 02/26/2018 7:28 EDT [facility] GFR, Calculated 93 >60 ml/min/1.7 3m2 02/26/2018 7:28 EDT [facility] Comment: eGFR calculated using CKD-EPI equation for non Americans. Multiply eGFR by 1.16 for Americans. Blood specimen (specimen) BLOOD SPECIMEN / Unknown 02/26/2018 5:20 EDT 02/26/2018 6:57 EDT Adryan Beasley MD CHEMISTRY & BLOOD GA S ORDERABLES Performing Organization Address City/[facility]/ZIP Co de Phone Number [facility] [address] [place] [address] * BUN (02/26/2018 5:20 EDT) BUN 22 10 - 26 mg/dl 02/26/2018 7:28 EDT [facility] Blood specimen (specimen) BLOOD SPECIMEN / Unknown 02/26/2018 5:20 EDT 02/26/2018 6:57 EDT Adryan Beasley MD CHEMISTRY & BLOOD GA S ORDERABLES Performing Organization Address [facility] Co de Phone Number [facility] [address] [place] [address] * (ABNORMAL) ELECTROLYTES (02/26/2018 5:20 EDT) Sodium 135(L) 136 - 145 mEq/L 02/26/2018 7:28 EDT [facility] Potassium 4.1 3.5 - 5.0 mEq/L 02/26/2018 7:28 EDT [facility] Chloride 102 96 - 110 mEq/L 02/26/2018 7:28 EDT [facility] CO2 27 22 - 32 mEq/L 02/26/2018 7:28 EDT [facility] Blood specimen (specimen) BLOOD SPECIMEN / Unknown 02/26/2018 5:20 EDT 02/26/2018 6:57 EDT Adryan Beasley MD CHEMISTRY & BLOOD GA S ORDERABLES Performing Organization Address [facility]/ZIP Co de Phone Number [facility] [address] [place] [address] * (ABNORMAL) GLUCOSE, GLUCOMETER (02/25/2018 21:16 EDT) Glucose, Fingerstick 152(H) 70 - 100 mg/dl 02/25/2018 21:21 EDT [facility] [employer] [place] [id number] 02/25/2018 21:21 EDT [facility] Comment:Test Performed by [facility] BLOOD SPECIMEN / Unknown 02/25/2018 21:16 EDT 02/25/2018 21:21 EDT Tyrell Vela MD CHEMISTRY & BLOOD GAS ORDERABLES Performing Organization Address [facility] Co de Phone Number [facility] [address] [place] [address] * (ABNORMAL) GLUCOSE, GLUCOMETER (02/25/2018 16:44 EDT) Glucose, Fingerstick 185(H) 70 - 100 mg/dl 02/25/2018 16:46 EDT [facility] [employer] [place] [id number] 02/25/2018 16:46 EDT [facility] Comment:Test Performed by [facility] BLOOD SPECIMEN / Unknown 02/25/2018 16:44 EDT 02/25/2018 16:46 EDT Tyrell Vela MD CHEMISTRY & BLOOD GAS ORDERABLES Performing Organization Address [facility]/ZIP Co de Phone Number [facility] [address] [place] [address] * CHEST PA AND LATERAL (02/25/2018 13:18 EDT) Anatomical Region Laterality Modality Other 02/25/2018 13:1 8 EDT 02/25/2018 13:33 EDT Narrative 02/25/2018 13:33 EDT CHEST 2 VIEWS ??02/25/2018 1:18 PM Signs and Symptoms/Comments: ?? Look for infiltrates, atelectasis, pleural effusions, and pneumothorax Impression: 1. 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 2. ??Interval improvement. Technique: Dual energy PA and lateral chest. Comparison: February 23, 2018 Findings: All tubes and lines have been removed and an upright dual energy PA and lateral chest obtained. There is residual infrahilar opacity obscuring the posterior diaphragms representing a combination of postoperative atelectasis and small bilateral effusions. Reinforced wire sternal sutures are intact. Procedure Note Devyn Raphael MD - 02/25/2018 CHEST 2 VIEWS 02/25/2018 1:18 PM Signs and Symptoms/Comments: Look for infiltrates, atelectasis, pleural effusions, and pneumothorax Impression: 1. 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 2. Interval improvement. Technique: Dual energy PA and lateral chest. Comparison: February 23, 2018 Findings: All tubes and lines have been removed and an upright dual energy PA and lateral chest obtained. There is residual infrahilar opacity obscuring the posterior diaphragms representing a combination of postoperative atelectasis and small bilateral effusions. Reinforced wire sternal sutures are intact. Tyrell Vela MD IMG DIAGNOSTIC IM AGING ORDERABLES * (ABNORMAL) GLUCOSE, GLUCOMETER (02/25/2018 12:12 EDT) Glucose, Fingerstick 135(H) 70 - 100 mg/dl 02/25/2018 12:18 EDT [facility] [employer] [place] [id number] 02/25/2018 12:18 EDT [facility] Comment:[facility] BLOOD SPECIMEN / Unknown 02/25/2018 12:12 EDT 02/25/2018 12:18 EDT Tyrell Vela MD CHEMISTRY & BLOOD GAS ORDERABLES [facility] [address] [place] [address] * (ABNORMAL) GLUCOSE, GLUCOMETER (02/25/2018 9:19 EDT) Glucose, Fingerstick 154(H) 70 - 100 mg/dl 02/25/2018 9:32 EDT [facility] [employer] [place] [id number] 02/25/2018 9:32 EDT [facility] Comment:Test Performed by [facility] Services BLOOD SPECIMEN / Unknown 02/25/2018 9:19 EDT 02/25/2018 9:32 EDT Tyrell Vela MD CHEMISTRY & BLOOD GAS ORDERABLES [facility] [address] [place] [address] * HEPARIN PF4 IGG AB (HIT), S (02/25/2018 8:07 EDT) HIT NITO 0.099 <0.400 OD 02/26/2018 18:43 EDT [facility] Interpretation Negative Negative 02/26/2018 18:43 EDT [facility] Comment (Note) 02/26/2018 18:43 EDT [facility] Comment: Patient serum has no reactivity for IgG antibodies to complexes of heparinoid and platelet factor 4 (H/PF4 complexes). ??A negative IgG heparin/PF4 antibody test result provides no clear laboratory evidence of heparin induced thrombocytopenia (HIT type II). ??Although a negative test result has a high negative predictive power for a diagnosis of HIT, it does not completely exclude a clinical HIT diagnosis, especially when clinical probability is high. . ADDITIONAL INFORMATION This test has been modified from the bilingual nanny's instructions. Its performance characteristics were determined by [facility] in a manner consistent with CLIA requirements. This test has not been cleared or approved by the U.S. Food and Drug Administration. Performed or Referred by: [facility], [facility] [place] [address], Lab Dir: Jak Cleveland II, M.D., Ph.D. Blood specimen (specimen) BLOOD SPECIMEN / Unknown 02/25/2018 8:07 EDT 02/25/2018 8:13 EDT Nacho Scales MD HEMATOLOGY & PF4 ORD ERABLES Performing Organization Address [facility] de Phone Number [facility] [address] [place] [address] * GLUCOSE, GLUCOMETER (02/25/2018 8:06 EDT) Glucose, Fingerstick 78 70 - 100 mg/dl 02/25/2018 8:11 EDT [facility] [employer] [place] [id number] 02/25/2018 8:11 EDT [facility] Comment:Test Performed by [facility] BLOOD SPECIMEN / Unknown 02/25/2018 8:06 EDT 02/25/2018 8:11 EDT Tyrell Vela MD CHEMISTRY & BLOOD GAS ORDERABLES Performing Organization Address [facility] de Phone Number [facility] [address] [place] [address] * EKG 12-LEAD (02/25/2018 7:33 EDT) 02/25/2018 7:33 EDT Narrative [facility] EKG - 02/26/2018 10:48 EDT ? [facility] ? Test Date: ?2018-02-25 Pat Name: ? TROY ANDERS ? Department: ?? [address] ? Room: ? SB365 Gender: ? Female ? Cement Mason Maintenance: ?? : ?1945 ? Requested By: AVE VALDES Order Number: [id number] ? Reading MD: ?? MARIFER BARKLEY MD ? Measurements Intervals ?[place] ? Rate: ? 103 ?P: ? ND: ? 0 ?QRS: ?-5 QRSD: ? 137 ?T: ?151 QT: ? 407 ? QTc: ?534 ? Interpretive Statements SINUS RHYTHM LEFT BUNDLE BRANCH BLOCK Wide complex tachycardia, likely supraventricular I reviewed the tracing and have either agreed or edited the findings in this report. Electronically Signed On 02-26-2018 10:48:51 EDT by MARIFER BARKLEY MD. Procedure Note Marifer Barkley MD - 02/26/[address] [facility] Test Date: 2018-02-25 Pat Name: TROY ANDERS Department: [address] Room: [facility] Gender: Female Cement Mason Maintenance: : 1945 Requested By: AVE VALDES Order Number: [id number] Reading MD: MARIFER BARKLEY MD Measurements Intervals [place] Rate: 103 P: ND: 0 QRS: -5 QRSD: 137 T: 151 QT: 407 QTc: 534 Interpretive Statements SINUS RHYTHM LEFT BUNDLE BRANCH BLOCK Wide complex tachycardia, likely supraventricular I reviewed the tracing and have either agreed or edited the findings inthis report. Electronically Signed On 02-26-2018 10:48:51 EDT by MARIFER HERNÁNDEZ. Marquita Jackson MD CARDIAC EC G ORDERABLES [facility] EKG * GLUCOSE, GLUCOMETER (02/25/2018 6:21 EDT) Glucose, Fingerstick 93 70 - 100 mg/dl 02/25/2018 6:22 EDT [facility] [employer] [place] [id number] 02/25/2018 6:22 EDT [facility] Comment:[facility] BLOOD SPECIMEN / Unknown 02/25/2018 6:21 EDT 02/25/2018 6:22 EDT Tyrell Vela MD CHEMISTRY & BLOOD GAS ORDERABLES [facility] [address] [place] [address] * (ABNORMAL) GLUCOSE, GLUCOMETER (02/25/2018 4:53 EDT) Glucose, Fingerstick 103(H) 70 - 100 mg/dl 02/25/2018 4:55 EDT [facility] [employer] [place] [id number] 02/25/2018 4:55 EDT [facility] Comment:[facility] BLOOD SPECIMEN / Unknown 02/25/2018 4:53 EDT 02/25/2018 4:55 EDT Tyrell Vela MD CHEMISTRY & BLOOD GAS ORDERABLES Performing Organization Address [facility]/ZIP Co de Phone Number [facility] [address] [place] [address] * (ABNORMAL) GLUCOSE, GLUCOMETER (02/25/2018 2:31 EDT) Glucose, Fingerstick 117(H) 70 - 100 mg/dl 02/25/2018 2:32 EDT [facility] [employer] [place] [id number] 02/25/2018 2:32 EDT [facility] Comment:[facility] BLOOD SPECIMEN / Unknown 02/25/2018 2:31 EDT 02/25/2018 2:32 EDT Tyrell Vela MD CHEMISTRY & BLOOD GAS ORDERABLES Performing Organization Address [facility] Co de Phone Number [facility] [address] [place] [address] * (ABNORMAL) CALCIUM (02/25/2018 2:15 EDT) Calcium 8.0(L) 8.5 - 10.5 mg/dl 02/25/2018 2:57 EDT [facility] Calculated Calcium 9.2 8.5 - 10.5 mg/dl 02/25/2018 2:57 EDT [facility] Blood specimen (specimen) BLOOD SPECIMEN / Unknown 02/25/2018 2:15 EDT 02/25/2018 2:23 EDT Marquita Jackson MD CHEMISTRY & BLOOD GAS ORDERABLES Performing Organization Address City/[facility]/ZIP Co de Phone Number [facility] [address] [place] [address] * MAGNESIUM (02/25/2018 2:15 EDT) Magnesium 2.1 1.7 - 2.8 mg/dl 02/25/2018 2:57 [facility] Blood specimen (specimen) BLOOD SPECIMEN / Unknown 02/25/2018 2:15 EDT 02/25/2018 2:23 EDT Marquita Jackson MD CHEMISTRY & BLOOD GAS ORDERABLES Performing Organization Address City/State/[facility] Co de Phone Number [facility] [address] [place] [address] * (ABNORMAL) COMPLETE BLOOD COUNT (02/25/2018 2:15 EDT) [facility] WBC 13.19(H) 4.0 - 12.4 K/cmm 02/25/2018 2:46 [facility] RBC 2.95(L) 3.86 - 5.04 M/cmm 02/25/2018 2:46 [facility] Hemoglobin 10.0(L) 11.6 - 15.2 gm/dl 02/25/2018 2:46 [facility] HCT 29.2(L) 34.9 - 44.4 % 02/25/2018 2:46 [facility] MCV 99(H) 81 - 98 fl 02/25/2018 2:46 [facility] MCH 33.9(H) 26.7 - 33.3 pg 02/25/2018 2:46 [facility] MCHC 34.2 32.1 - 35.9 gm/dl 02/25/2018 2:46 [facility] RDW-CV 13.5 <14.7 % 02/25/2018 2:46 [facility] RDW-SD 48.9 <50.4 fl 02/25/2018 2:46 [facility] PLT 79(L) 141 - 377 K/cmm 02/25/2018 2:46 [facility] MPV 12.4 9.5 - 12.7 fl 02/25/2018 2:46 [facility] Blood specimen (specimen) BLOOD SPECIMEN / Unknown 02/25/2018 2:15 EDT 02/25/2018 2:23 EDT Narrative Authorizing Provider Result Meghan Beasley MD HEMATOLOGY & PF4 ORD ERABLES Performing Organization Address City/[facility]/ZIP Co de Phone Number [facility] [address] [place] [address] * CREATININE (02/25/2018 2:15 EDT) Creatinine 0.63 0.52 - 1.04 mg/dl 02/25/2018 2:57 EDT [facility] GFR, Calculated 91 >60 ml/min/1.7 3m2 02/25/2018 2:57 EDT [facility] Comment: eGFR calculated using CKD-EPI equation for non Americans. Multiply eGFR by 1.16 for Americans. Blood specimen (specimen) BLOOD SPECIMEN / Unknown 02/25/2018 2:15 EDT 02/25/2018 2:23 EDT Narrative Authorizing Provider Result Meghan Beasley MD CHEMISTRY & BLOOD GA S ORDERABLES Performing Organization Address [facility] Co de Phone Number [facility] [address] [place] [address] * BUN (02/25/2018 2:15 EDT) BUN 20 10 - 26 mg/dl 02/25/2018 2:57 EDT [facility] Blood specimen (specimen) BLOOD SPECIMEN / Unknown 02/25/2018 2:15 EDT 02/25/2018 2:23 EDT Narrative Authorizing Provider Result Meghan Beasley MD CHEMISTRY & BLOOD GA S ORDERABLES Performing Organization Address [facility] Co de Phone Number [facility] [address] [place] [address] * (ABNORMAL) ELECTROLYTES (02/25/2018 2:15 EDT) Sodium 135(L) 136 - 145 mEq/L 02/25/2018 2:57 EDT [facility] Potassium 4.1 3.5 - 5.0 mEq/L 02/25/2018 2:57 EDT [facility] Chloride 105 96 - 110 mEq/L 02/25/2018 2:57 EDT [facility] CO2 26 22 - 32 mEq/L 02/25/2018 2:57 EDT [facility] Blood specimen (specimen) BLOOD SPECIMEN / Unknown 02/25/2018 2:15 EDT 02/25/2018 2:23 EDT Adryan Beasley MD CHEMISTRY & BLOOD GA S ORDERABLES Performing Organization Address [facility]/State/ZIP Co de Phone Number [facility] [address] [place] [address] * EKG 12-LEAD (02/25/2018 2:01 EDT) 02/25/2018 2:01 EDT Narrative [facility] EKG - 02/26/2018 10:49 EDT ? [facility] ? Test Date: ?2018-02-25 Pat Name: ? TROY ANDERS ? Department: ?? [address] ? Room: ? SB365 Gender: ? Female ? Cement Mason Maintenance: ?? [id number] : ?1945 ? Requested By: DANE Witt Order Number: [id number] ? Aliyah WOODS: ?? MARIFER BARKLEY MD ? Measurements Intervals ?[place] ? Rate: ? 88 ? P: ?28 ND: ? 198 ?QRS: ?-4 QRSD: ? 140 ?T: ?160 QT: ? 378 ? QTc: ?458 ? Interpretive Statements SINUS RHYTHM WITH FREQUENT SUPRAVENTRICULAR PREMATURE COMPLEXES Left bundle branch block I reviewed the tracing and have either agreed or edited the findings in this report. Electronically Signed On 02-26-2018 10:49:28 EDT by MARIFER BARKLEY MD. Procedure Note Marifer Barkley MD - 02/26/[address] [facility] Test Date: 2018-02-25 Pat Name: TROY ANDERS Department: [address] Room: [facility] Gender: Female Cement Mason Maintenance: [id number] : 1945 Requested By: DANE Witt Order Number: [id number] Reading MD: MARIFER BARKLEY MD Measurements Intervals [place] Rate: 88 P: 28 ND: 198 QRS: -4 QRSD: 140 T: 160 QT: 378 QTc: 458 Interpretive Statements SINUS RHYTHM WITH FREQUENT SUPRAVENTRICULAR PREMATURE COMPLEXES Left bundle branch block I reviewed the tracing and have either agreed or edited the findings inthis report. Electronically Signed On 02-26-2018 10:49:28 EDT by MARIFER HERNÁNDEZ. Tyrell Vela MD CARDIAC ECG ORDER LEAH Performing Organization Address [facility] Co de Phone Number [facility] EKG * (ABNORMAL) GLUCOSE, GLUCOMETER (02/25/2018 0:59 EDT) Glucose, Fingerstick 111(H) 70 - 100 mg/dl 02/25/2018 0:59 EDT [facility] [employer] [place] [id number] 02/25/2018 0:59 EDT [facility] Comment:Test Performed by [facility] BLOOD SPECIMEN / Unknown 02/25/2018 0:59 EDT 02/25/2018 1:00 EDT Tyrell Vela MD CHEMISTRY & BLOOD GAS ORDERABLES Performing Organization Address [facility] Phone Number [facility] [address] [place] [address] * (ABNORMAL) GLUCOSE, GLUCOMETER (02/24/2018 23:03 EDT) Glucose, Fingerstick 128(H) 70 - 100 mg/dl 02/25/2018 0:28 EDT [facility] [employer] [place] [id number] 02/25/2018 0:28 EDT [facility] Comment:Test Performed by [facility] BLOOD SPECIMEN / Unknown 02/24/2018 23:03 EDT 02/25/2018 0:28 EDT Tyrell Vela MD CHEMISTRY & BLOOD GAS ORDERABLES Performing Organization Address [facility] Co de Phone Number [facility] [address] [place] [address] * (ABNORMAL) GLUCOSE, GLUCOMETER (02/24/2018 20:57 EDT) Glucose, Fingerstick 146(H) 70 - 100 mg/dl 02/24/2018 21:08 EDT [facility] [employer] [place] [id number] 02/24/2018 21:08 EDT [facility] Comment:[facility] BLOOD SPECIMEN / Unknown 02/24/2018 20:57 EDT 02/24/2018 21:08 EDT Tyrell Vela MD CHEMISTRY & BLOOD GAS ORDERABLES Performing Organization Address City/[facility] Co de Phone Number [facility] [address] [place] [address] * (ABNORMAL) GLUCOSE, GLUCOMETER (02/24/2018 19:49 EDT) Glucose, Fingerstick 136(H) 70 - 100 mg/dl 02/24/2018 19:50 EDT [facility] [employer] [place] [id number] 02/24/2018 19:50 EDT [facility] Comment:Test Performed by [facility] Services BLOOD SPECIMEN / Unknown 02/24/2018 19:49 EDT 02/24/2018 19:50 EDT Tyrell Vela MD CHEMISTRY & BLOOD GAS ORDERABLES Performing Organization Address [facility] Co de Phone Number [facility] [address] [place] [address] * EKG 12-LEAD (02/24/2018 17:49 EDT) 02/24/2018 17:4 9 EDT Narrative [facility] EKG - 03/01/2018 14:57 EDT ? [facility] ? Test Date: ?2018-02-24 Pat Name: ? TROY SHIRA ? Department: ?? [address] ? Room: ? SB365 Gender: ? Female ? Cement Mason Maintenance: ?? : ?1945 ? Requested By: SCALES NACHO Order Number: [id number] ? Reading MD: ?? MAXIMILIAN VALADEZ MD ? Measurements Intervals ?[place] ? Rate: ? 88 ? P: ?28 ND: ? 182 ?QRS: ?-3 QRSD: ? 140 ?T: ?157 QT: ? 391 ? QTc: ?475 ? Interpretive Statements SINUS RHYTHM LEFT BUNDLE BRANCH BLOCK Compared to ECG 02/23/2018 05:22:52 Left bundle-branch block now present Intraventricular conduction delay no longer present I reviewed the tracing and have either agreed or edited the findings in this report. Electronically Signed On 03-01-2018 14:57:39 EDT by MAXIMILIAN VALADEZ MD. Procedure Note Maximilian Valadez MD - 03/01/[address] [facility] Test Date: 2018-02-24 Pat Name: TROY ANDERS Department: [address] Room: SB365 Gender: Female Cement Mason Maintenance: : 1945 Requested By: YORDY GRIFFITH Order Number: [id number] Reading MD: MAXIMILIAN VALADEZ MD Measurements Intervals [place] Rate: 88 P: 28 ND: 182 QRS: -3 QRSD: 140 T: 157 QT: 391 QTc: 475 Interpretive Statements SINUS RHYTHM LEFT BUNDLE BRANCH BLOCK Compared to ECG 02/23/2018 05:22:52 Left bundle-branch block now present Intraventricular conduction delay no longer present I reviewed the tracing and have either agreed or edited the findings inthis report. Electronically Signed On 03-01-2018 14:57:39 EDT by MAXIMILIAN CARPENTER. Nacho Scales MD CARDIAC ECG ORDERABL ES [facility] EKG * (ABNORMAL) GLUCOSE, GLUCOMETER (02/24/2018 17:20 EDT) Glucose, Fingerstick 112(H) 70 - 100 mg/dl 02/24/2018 17:25 EDT [facility] [employer] [place] [id number] 02/24/2018 17:25 EDT [facility] Comment:[facility] BLOOD SPECIMEN / Unknown 02/24/2018 17:20 EDT 02/24/2018 17:25 EDT Tyrell Vela MD CHEMISTRY & BLOOD GAS ORDERABLES Performing Organization Address [facility] Co de Phone Number [facility] [address] [place] [address] * (ABNORMAL) GLUCOSE, GLUCOMETER (02/24/2018 15:39 EDT) Glucose, Fingerstick 131(H) 70 - 100 mg/dl 02/24/2018 15:40 EDT [facility] [employer] [place] [id number] 02/24/2018 15:40 EDT [facility] Comment:Test Performed by [facility] BLOOD SPECIMEN / Unknown 02/24/2018 15:39 EDT 02/24/2018 15:40 EDT Tyrell Vela MD CHEMISTRY & BLOOD GAS ORDERABLES Performing Organization Address [facility] Co de Phone Number [facility] [address] [place] [address] * (ABNORMAL) GLUCOSE, GLUCOMETER (02/24/2018 14:29 EDT) Glucose, Fingerstick 164(H) 70 - 100 mg/dl 02/24/2018 14:34 EDT [facility] [employer] [place] [id number] 02/24/2018 14:34 EDT [facility] Comment:[facility] BLOOD SPECIMEN / Unknown 02/24/2018 14:29 EDT 02/24/2018 14:34 EDT Tyrell Vela MD CHEMISTRY & BLOOD GAS ORDERABLES Performing Organization Address [facility] Co de Phone Number [facility] [address] [place] [address] * PTT (02/24/2018 13:13 EDT) PTT 27 26 - 37 secs 02/24/2018 14:25 EDT [facility] Blood specimen (specimen) BLOOD SPECIMEN / Unknown 02/24/2018 13:13 EDT 02/24/2018 13:53 EDT Nacho Scales MD HEMATOLOGY & PF4 ORD ERABLES Performing Organization Address [facility]/ZIP Co de Phone Number [facility] [address] [place] [address] * (ABNORMAL) PROTIME (02/24/2018 13:13 EDT) Pro Time 13.6(H) 10.3 - 13.4 secs 02/24/2018 14:24 EDT [facility] I.N.R. 1.2(H) 0.9 - 1.1 Ratio 02/24/2018 14:24 EDT [facility] Comment: Moderate Intensity Coumadin INR = 2.0-3.0 Adjustments in anticoagulant therapy dose should be based upon the INR and NOT the Pro Time. Blood specimen (specimen) BLOOD SPECIMEN / Unknown 02/24/2018 13:13 EDT 02/24/2018 13:53 EDT Nacho Scales MD HEMATOLOGY & PF4 ORD ERABLES Performing Organization Address [facility] Co de Phone Number [facility] [address] [place] [address] * (ABNORMAL) ALBUMIN (02/24/2018 13:13 EDT) [facility] Albumin 2.4(L) 3.4 - 4.9 g/dl 02/24/2018 14:25 EDT [facility] Blood specimen (specimen) BLOOD SPECIMEN / Unknown 02/24/2018 13:13 EDT 02/24/2018 13:53 EDT Nacho Scales MD CHEMISTRY & BLOOD GA S ORDERABLES Performing Organization Address [facility] Co de Phone Number [facility] [address] [place] [address] * BILIRUBIN DIRECT/INDIRECT (02/24/2018 13:13 EDT) Pathologist [facility] Conjugated Bilirubin 0.0 0.0 - 0.3 mg/dl 02/24/2018 14:25 EDT [facility] Unconjugated Bilirubin 0.4 0.0 - 1.1 mg/dl 02/24/2018 14:25 EDT [facility] Blood specimen (specimen) BLOOD SPECIMEN / Unknown 02/24/2018 13:13 EDT 02/24/2018 13:53 EDT Nacho Scales MD CHEMISTRY & BLOOD GA S ORDERABLES Performing Organization Address [facility] Co de Phone Number [facility] [address] [place] [address] * (ABNORMAL) PROTEIN, TOTAL (02/24/2018 13:13 EDT) Total Protein 4.8(L) 6.3 - 8.2 g/dl 02/24/2018 14:25 EDT [facility] Blood specimen (specimen) BLOOD SPECIMEN / Unknown 02/24/2018 13:13 EDT 02/24/2018 13:53 EDT Nacho Scales MD CHEMISTRY & BLOOD GA S ORDERABLES Performing Organization Address [facility] Co de Phone Number [facility] [address] [place] [address] * ALKALINE PHOSPHATASE (02/24/2018 13:13 EDT) Total Alkaline Phosphatase 81 38 - 126 U/L 02/24/2018 14:25 EDT [facility] Blood specimen (specimen) BLOOD SPECIMEN / Unknown 02/24/2018 13:13 EDT 02/24/2018 13:53 EDT Nacho Scales MD CHEMISTRY & BLOOD GA S ORDERABLES Performing Organization Address [facility] Co de Phone Number [facility] [address] [place] [address] * AMMONIA (02/24/2018 13:13 EDT) Ammonia 20 <34 umol/L 02/24/2018 13:49 EDT [facility] Blood specimen (specimen) BLOOD SPECIMEN / Unknown 02/24/2018 13:13 EDT 02/24/2018 13:29 EDT Nacho Scales MD CHEMISTRY & BLOOD GA S ORDERABLES Performing Organization Address [facility]/ZIP Co de Phone Number [facility] [address] [place] [address] * ALT (02/24/2018 13:13 EDT) ALT 37 <53 U/L 02/24/2018 14:25 EDT [facility] Blood specimen (specimen) BLOOD SPECIMEN / Unknown 02/24/2018 13:13 EDT 02/24/2018 13:53 EDT Nacho Scales MD CHEMISTRY & BLOOD GA S ORDERABLES Performing Organization Address [facility] Co de Phone Number [facility] [address] [place] [address] * (ABNORMAL) AST (02/24/2018 13:13 EDT) AST 50(H) 15 - 46 U/L 02/24/2018 14:25 EDT [facility] Blood specimen (specimen) BLOOD SPECIMEN / Unknown 02/24/2018 13:13 EDT 02/24/2018 13:53 EDT Nacho Scales MD CHEMISTRY & BLOOD GA S ORDERABLES Performing Organization Address [facility] Co de Phone Number [facility] [address] [place] [address] * (ABNORMAL) GLUCOSE, GLUCOMETER (02/24/2018 12:28 EDT) Glucose, Fingerstick 103(H) 70 - 100 mg/dl 02/24/2018 12:30 EDT [facility] [employer] [place] [id number] 02/24/2018 12:30 EDT [facility] Comment:[facility] BLOOD SPECIMEN / Unknown 02/24/2018 12:28 EDT 02/24/2018 12:30 EDT Tyrell Vela MD CHEMISTRY & BLOOD GAS ORDERABLES Performing Organization Address [facility] de Phone Number [facility] [address] [place] [address] * ECG REPORT - SCANNED (02/24/2018 12:00 EDT) 02/24/2018 12:0 0 EDT Scan 2 Aircraft Serv[employer] PROCEDURE/MINOR NANCY GICAL ORDERABLES * URINE CULTURE IF UA POSITIVE - NON POCT URINALYSIS ONLY (02/24/2018 11:58 EDT) Culture if Indicated Culture not indicated by urinalysis results. 02/24/2018 13:15 EDT [facility] Urine specimen (specimen) TOPOGRAPHY UNKNOWN / Unknown 02/24/2018 11:58 EDT 02/24/2018 12:20 EDT Nacho Scales MD MICROBIOLOGY - GENER AL ORDERABLES Performing Organization Address [facility] Co de Phone Number [facility] [address] [place] [address] * (ABNORMAL) UA, CHEMICAL AND SEDIMENT ANALYSIS (DIPSTICK AND MICROSCOPIC) (02/24/2018 11:58 EDT) Color, UA Yellow 02/24/2018 13:15 EDT [facility] Clarity, UA Clear 02/24/2018 13:15 T [facility] Glucose, UA Neg Neg 02/24/2018 13:15 T [facility] Bilirubin, UA Neg Neg 02/24/2018 13:15 T [facility] Ketones, UA Neg Neg 02/24/2018 13:15 T [facility] Refractometer SG,Urine 1.042(H) 1.001 - 1.035 02/24/2018 13:15 T [facility] Comment: Results greater than 1.035 suggest possible interference from glucose or radiographic dye. Blood, UA Neg Neg 02/24/2018 13:15 T [facility] pH, UA 6.0 4.6 - 8.0 02/24/2018 13:15 [facility] Protein, UA 1+(A) Neg 02/24/2018 13:15 [facility] Urobilinogen, UA Normal Normal E.U./dl 02/24/2018 13:15 [facility] Nitrite, UA Neg Neg 02/24/2018 13:15 [facility] Leuk Esterase Neg Neg 02/24/2018 13:15 [facility] UA Method Used 02/24/2018 10:39 [facility] Comment: Testing performed using [employer] AU-4050. Urine RBC Count Automated 3 to 10(A) 0 to 2 /HPF 02/24/2018 13:15 [facility] Urine WBC Count Automated 0 to 3 0 to 3 /HPF 02/24/2018 13:15 [facility] Urine Squamous Epithelial Cell Count, Automated Few(A) None seen /LPF 02/24/2018 13:15 [facility] Urine Hyaline Casts, Automated < or = 10 < or = 10 /LPF 02/24/2018 13:15 [facility] Urine Bacteria Count, Automated None seen None seen 02/24/2018 13:15 [facility] UA Comment Sediment results 02/24/2018 13:15 [facility] Comment: are unreliable on urines unrefrig >2hrs or refrig >8hrs. Urine specimen (specimen) URINE / Unknown 02/24/2018 11:58 EDT 02/24/2018 12:20 EDT Nacho Scales MD URINALYSIS ORDERABLE S [facility] [address] [place] [address] * (ABNORMAL) GLUCOSE, GLUCOMETER (02/24/2018 10:29 EDT) Glucose, Fingerstick 107(H) 70 - 100 mg/dl 02/24/2018 10:31 [facility] [employer] [place] [id number] 02/24/2018 10:31 [facility] Comment:Test Performed by [facility] BLOOD SPECIMEN / Unknown 02/24/2018 10:29 EDT 02/24/2018 10:31 EDT Tyrell Vela MD CHEMISTRY & BLOOD GAS ORDERABLES Performing Organization Address City/[facility]/ZIP Co de Phone Number [facility] [address] [place] [address] * GLUCOSE, GLUCOMETER (02/24/2018 8:28 EDT) Glucose, Fingerstick 100 70 - 100 mg/dl 02/24/2018 8:30 EDT [facility] [employer] [place] [id number] 02/24/2018 8:30 EDT [facility] Comment:Test Performed by [facility] BLOOD SPECIMEN / Unknown 02/24/2018 8:28 EDT 02/24/2018 8:30 EDT Tyrell Vela MD CHEMISTRY & BLOOD GAS ORDERABLES Performing Organization Address [facility] Co de Phone Number [facility] [address] [place] [address] * (ABNORMAL) GLUCOSE, GLUCOMETER (02/24/2018 6:34 EDT) Glucose, Fingerstick 114(H) 70 - 100 mg/dl 02/24/2018 6:39 EDT [facility] [employer] [place] [id number] 02/24/2018 6:39 EDT [facility] Comment:Test Performed by [facility] BLOOD SPECIMEN / Unknown 02/24/2018 6:34 EDT 02/24/2018 6:39 EDT Tyrell Vela MD CHEMISTRY & BLOOD GAS ORDERABLES Performing Organization Address City/[facility] Co de Phone Number [facility] [address] [place] [address] * SMEAR REVIEW (02/24/2018 5:30 EDT) Smear scan only: Slide was examined by a technologist to verify the WBC and/or platelet count. 02/24/2018 8:11 [facility] Comment:LARGE PLATELETS PRES ENT BLOOD SPECIMEN / Unknown 02/24/2018 5:30 EDT 02/24/2018 6:08 EDT Adryan Beasley MD HEMATOLOGY & PF4 ORD ERABLES [facility] [address] [place] [address] * (ABNORMAL) COMPLETE BLOOD COUNT (02/24/2018 5:30 EDT) WBC 15.67(H) 4.0 - 12.4 K/cmm 02/24/2018 8:10 [facility] RBC 2.88(L) 3.86 - 5.04 M/cmm 02/24/2018 6:43 [facility] Hemoglobin 9.9(L) 11.6 - 15.2 gm/dl 02/24/2018 6:43 [facility] HCT 29.9(L) 34.9 - 44.4 % 02/24/2018 6:43 [facility] MCV 104(H) 81 - 98 fl 02/24/2018 6:43 [facility] MCH 34.4(H) 26.7 - 33.3 pg 02/24/2018 6:43 [facility] MCHC 33.1 32.1 - 35.9 gm/dl 02/24/2018 6:43 [facility] RDW-CV 13.9 <14.7 % 02/24/2018 6:43 [facility] RDW-SD 53.1(H) <50.4 fl 02/24/2018 6:43 [facility] PLT 81(L) 141 - 377 K/cmm 02/24/2018 8:10 [facility] MPV 12.4 9.5 - 12.7 fl 02/24/2018 8:10 [facility] Blood specimen (specimen) BLOOD SPECIMEN / Unknown 02/24/2018 5:30 EDT 02/24/2018 6:08 EDT Narrative Authorizing Provider Result Meghan Beasley MD HEMATOLOGY & PF4 ORD ERABLES [facility] [address] [place] [address] * CREATININE (02/24/2018 5:30 EDT) Creatinine 0.75 0.52 - 1.04 mg/dl 02/24/2018 6:46 EDT [facility] GFR, Calculated 80 >60 ml/min/1.7 3m2 02/24/2018 6:46 EDT [facility] Comment: eGFR calculated using CKD-EPI equation for non Americans. Multiply eGFR by 1.16 for Americans. Blood specimen (specimen) BLOOD SPECIMEN / Unknown 02/24/2018 5:30 EDT 02/24/2018 6:08 EDT Adryan Beasley MD CHEMISTRY & BLOOD GA S ORDERABLES Performing Organization Address [facility]/ZIP Co de Phone Number [facility] [address] [place] [address] * BUN (02/24/2018 5:30 EDT) BUN 21 10 - 26 mg/dl 02/24/2018 6:46 EDT [facility] Blood specimen (specimen) BLOOD SPECIMEN / Unknown 02/24/2018 5:30 EDT 02/24/2018 6:08 EDT Narrative Authorizing Provider Result Meghan Beasley MD CHEMISTRY & BLOOD GA S ORDERABLES Performing Organization Address City/[facility]/ZIP Co de Phone Number [facility] [address] [place] [address] * ELECTROLYTES (02/24/2018 5:30 EDT) Sodium 139 136 - 145 mEq/L 02/24/2018 6:46 EDT [facility] Potassium 4.0 3.5 - 5.0 mEq/L 02/24/2018 6:46 EDT [facility] Chloride 106 96 - 110 mEq/L 02/24/2018 6:46 EDT [facility] CO2 28 22 - 32 mEq/L 02/24/2018 6:46 EDT [facility] Blood specimen (specimen) BLOOD SPECIMEN / Unknown 02/24/2018 5:30 EDT 02/24/2018 6:08 EDT Adryan Beasley MD CHEMISTRY & BLOOD GA S ORDERABLES Performing Organization Address City/[facility]/ZIP Co de Phone Number [facility] [address] [place] [address] * (ABNORMAL) GLUCOSE, GLUCOMETER (02/24/2018 4:23 EDT) Glucose, Fingerstick 111(H) 70 - 100 mg/dl 02/24/2018 4:27 EDT [facility] [employer] [place] [id number] 02/24/2018 4:27 EDT [facility] Comment:Test Performed by Nu rsing Services BLOOD SPECIMEN / Unknown 02/24/2018 4:23 EDT 02/24/2018 4:27 EDT Tyrell Vela MD CHEMISTRY & BLOOD GAS ORDERABLES Performing Organization Address [facility] Co de Phone Number [facility] [address] [place] [address] * (ABNORMAL) GLUCOSE, GLUCOMETER (02/24/2018 2:23 EDT) Glucose, Fingerstick 124(H) 70 - 100 mg/dl 02/24/2018 2:44 EDT [facility] [employer] [place] [id number] 02/24/2018 2:44 EDT [facility] Comment:Test Performed by Nu rsing Services BLOOD SPECIMEN / Unknown 02/24/2018 2:23 EDT 02/24/2018 2:44 EDT Tyrell Vela MD CHEMISTRY & BLOOD GAS ORDERABLES Performing Organization Address City/[facility]/ZIP Co de Phone Number [facility] [address] [place] [address] * (ABNORMAL) GLUCOSE, GLUCOMETER (02/24/2018 1:22 EDT) Glucose, Fingerstick 115(H) 70 - 100 mg/dl 02/24/2018 6:26 EDT [facility] [employer] [place] [id number] 02/24/2018 6:26 EDT [facility] Comment:Test Performed by Nu rsing Services BLOOD SPECIMEN / Unknown 02/24/2018 1:22 EDT 02/24/2018 6:26 EDT Tyrell Vela MD CHEMISTRY & BLOOD GAS ORDERABLES Performing Organization Address City/[facility]/ZIP Co de Phone Number [facility] [address] [place] [address] * (ABNORMAL) GLUCOSE, GLUCOMETER (02/24/2018 0:18 EDT) Glucose, Fingerstick 103(H) 70 - 100 mg/dl 02/24/2018 0:23 EDT [facility] [employer] [place] [id number] 02/24/2018 0:23 EDT [facility] Comment:Test Performed by Nu rsing Services BLOOD SPECIMEN / Unknown 02/24/2018 0:18 EDT 02/24/2018 0:23 EDT Tyrell Vela MD CHEMISTRY & BLOOD GAS ORDERABLES Performing Organization Address City/[facility]/ZIP Co de Phone Number [facility] [address] [place] [address] * (ABNORMAL) GLUCOSE, GLUCOMETER (02/23/2018 23:07 EDT) Glucose, Fingerstick 112(H) 70 - 100 mg/dl 02/23/2018 23:07 EDT [facility] [employer] [place] [id number] 02/23/2018 23:07 EDT [facility] Comment:Test Performed by Nu rsing Services BLOOD SPECIMEN / Unknown 02/23/2018 23:07 EDT 02/23/2018 23:08 EDT Tyrell Vela MD CHEMISTRY & BLOOD GAS ORDERABLES Performing Organization Address [facility]/ZIP Co de Phone Number [facility] [address] [place] [address] * (ABNORMAL) GLUCOSE, GLUCOMETER (02/23/2018 22:00 EDT) Glucose, Fingerstick 117(H) 70 - 100 mg/dl 02/23/2018 22:05 EDT [facility] [employer] [place] [id number] 02/23/2018 22:05 EDT [facility] Comment:Test Performed by Nu ing Services BLOOD SPECIMEN / Unknown 02/23/2018 22:00 EDT 02/23/2018 22:05 EDT Tyrell Vela MD CHEMISTRY & BLOOD GAS ORDERABLES Performing Organization Address [facility] Co de Phone Number [facility] [address] [place] [address] * (ABNORMAL) BLOOD GAS, G3 ISTAT (02/23/2018 21:50 EDT) pH, i-STAT 7.47(H) 7.35 - 7.45 02/23/2018 21:55 [facility] pCO2, i-STAT 39 35 - 45 mmHg 02/23/2018 21:55 [facility] pO2, i-STAT 84 80 - 105 mmHg 02/23/2018 21:55 [facility] TCO2, i-STAT 29(H) 23 - 27 mEq/L 02/23/2018 21:55 [facility] O2 Saturation 97 95 - 98 % 02/23/2018 21:55 [facility] Base Excess, i-STAT 4 02/23/2018 21:55 [facility] FIO2 24 02/23/2018 21:55 [facility] Sample Type ARTERIAL 02/23/2018 21:55 [facility] patternator ID [id number] 02/23/2018 21:55 [facility] Comment: Test Performed by Respiratory For non-arterial reference ranges, please see ISTAT procedure. BLOOD SPECIMEN / Unknown 02/23/2018 21:50 EDT 02/23/2018 21:55 EDT Tyrell Vela MD CHEMISTRY & BLOOD GAS ORDERABLES [facility] [address] [place] [address] * (ABNORMAL) GLUCOSE, GLUCOMETER (02/23/2018 20:59 EDT) Glucose, Fingerstick 132(H) 70 - 100 mg/dl 02/23/2018 21:24 EDT [facility] [employer] [place] [id number] 02/23/2018 21:24 EDT [facility] Comment:Test Performed by Nu rsing Services BLOOD SPECIMEN / Unknown 02/23/2018 20:59 EDT 02/23/2018 21:24 EDT Tyrell Vela MD CHEMISTRY & BLOOD GAS ORDERABLES Performing Organization Address City/[facility]/ZIP Co de Phone Number [facility] [address] [place] [address] * GLUCOSE, GLUCOMETER (02/23/2018 19:59 EDT) Glucose, Fingerstick 92 70 - 100 mg/dl 02/23/2018 20:04 EDT [facility] [employer] [place] [id number] 02/23/2018 20:04 EDT [facility] Comment:Test Performed by Nu rsing Services BLOOD SPECIMEN / Unknown 02/23/2018 19:59 EDT 02/23/2018 20:04 EDT Tyrell Vela MD CHEMISTRY & BLOOD GAS ORDERABLES [facility] [address] [place] [address] * (ABNORMAL) GLUCOSE, GLUCOMETER (02/23/2018 17:43 EDT) Glucose, Fingerstick 104(H) 70 - 100 mg/dl 02/23/2018 17:48 EDT [facility] [employer] [place] [id number] 02/23/2018 17:48 EDT [facility] Comment:Test Performed by [facility] Services BLOOD SPECIMEN / Unknown 02/23/2018 17:43 EDT 02/23/2018 17:48 EDT Tyrell Vela MD CHEMISTRY & BLOOD GAS ORDERABLES Performing Organization Address [facility] Co de Phone Number [facility] [address] [place] [address] * (ABNORMAL) GLUCOSE, GLUCOMETER (02/23/2018 16:21 EDT) Glucose, Fingerstick 112(H) 70 - 100 mg/dl 02/23/2018 16:22 EDT [facility] [employer] [place] [id number] 02/23/2018 16:22 EDT [facility] Comment:[facility] BLOOD SPECIMEN / Unknown 02/23/2018 16:21 EDT 02/23/2018 16:22 EDT Tyrell Vela MD CHEMISTRY & BLOOD GAS ORDERABLES Performing Organization Address [facility] de Phone Number [facility] [address] [place] [address] * CREATININE (02/23/2018 14:36 EDT) Creatinine 0.75 0.52 - 1.04 mg/dl 02/23/2018 15:32 EDT [facility] GFR, Calculated 80 >60 ml/min/1.7 3m2 02/23/2018 15:32 EDT [facility] Comment: eGFR calculated using CKD-EPI equation for non Americans. Multiply eGFR by 1.16 for Americans. Blood specimen (specimen) BLOOD SPECIMEN / Unknown 02/23/2018 14:36 EDT 02/23/2018 15:09 EDT Adryan Beasley MD CHEMISTRY & BLOOD GA S ORDERABLES Performing Organization Address [facility]/ZIP Co de Phone Number [facility] [address] [place] [address] * PHOSPHORUS (02/23/2018 14:36 EDT) Phosphorus 3.6 2.5 - 4.5 mg/dl 02/23/2018 15:32 EDT [facility] Blood specimen (specimen) BLOOD SPECIMEN / Unknown 02/23/2018 14:36 EDT 02/23/2018 15:09 EDT Narrative Authorizing Provider Result Meghan Beasley MD CHEMISTRY & BLOOD GA S ORDERABLES [facility] [address] [place] [address] * MAGNESIUM (02/23/2018 14:36 EDT) Magnesium 2.2 1.7 - 2.8 mg/dl 02/23/2018 15:32 EDT [facility] Blood specimen (specimen) BLOOD SPECIMEN / Unknown 02/23/2018 14:36 EDT 02/23/2018 15:09 EDT Narrative Authorizing Provider Result Meghan Beasley MD CHEMISTRY & BLOOD GA S ORDERABLES Performing Organization Address City/[facility]/ZIP Co de Phone Number [facility] [address] [place] [address] * CALCIUM, IONIZED (02/23/2018 14:36 EDT) Calcium, Ionized 1.14 1.12 - 1.32 mmol/L 02/23/2018 15:18 EDT [facility] Blood specimen (specimen) BLOOD SPECIMEN / Unknown 02/23/2018 14:36 EDT 02/23/2018 15:09 EDT Narrative Authorizing Provider Result Meghan Beasley MD CHEMISTRY & BLOOD GA S ORDERABLES Performing Organization Address City/[facility]/ZIP Co de Phone Number [facility] [address] [place] [address] * ELECTROLYTES (02/23/2018 14:36 EDT) Sodium 139 136 - 145 mEq/L 02/23/2018 15:32 EDT [facility] Potassium 4.0 3.5 - 5.0 mEq/L 02/23/2018 15:32 EDT [facility] Chloride 106 96 - 110 mEq/L 02/23/2018 15:32 EDT [facility] CO2 28 22 - 32 mEq/L 02/23/2018 15:32 EDT [facility] Blood specimen (specimen) BLOOD SPECIMEN / Unknown 02/23/2018 14:36 EDT 02/23/2018 15:09 EDT Adryan Beasley MD CHEMISTRY & BLOOD GA S ORDERABLES Performing Organization Address City/[facility]/ZIP Co de Phone Number [facility] [address] [place] [address] * ECG REPORT - SCANNED (02/23/2018 14:22 EDT) 02/23/2018 14:2 2 EDT Scan 2 [employer] PROCEDURE/MINOR NANCY GICAL ORDERABLES * (ABNORMAL) GLUCOSE, GLUCOMETER (02/23/2018 14:10 EDT) Glucose, Fingerstick 110(H) 70 - 100 mg/dl 02/23/2018 14:14 EDT [facility] [employer] [place] [id number] 02/23/2018 14:14 EDT [facility] Comment:Test Performed by Nu ing Services BLOOD SPECIMEN / Unknown 02/23/2018 14:10 EDT 02/23/2018 14:14 EDT Tyrell Vela MD CHEMISTRY & BLOOD GAS ORDERABLES [facility] [address] [place] [address] * (ABNORMAL) GLUCOSE, GLUCOMETER (02/23/2018 11:58 EDT) Glucose, Fingerstick 136(H) 70 - 100 mg/dl 02/23/2018 12:00 EDT [facility] [employer] [place] [id number] 02/23/2018 12:00 EDT [facility] Comment:Test Performed by Nu rsing Services BLOOD SPECIMEN / Unknown 02/23/2018 11:58 EDT 02/23/2018 12:00 EDT Tyrell Vela MD CHEMISTRY & BLOOD GAS ORDERABLES Performing Organization Address [facility] Co de Phone Number [facility] [address] [place] [address] * (ABNORMAL) GLUCOSE, GLUCOMETER (02/23/2018 9:41 EDT) Glucose, Fingerstick 133(H) 70 - 100 mg/dl 02/23/2018 9:42 EDT [facility] [employer] [place] [id number] 02/23/2018 9:42 EDT [facility] Comment:Test Performed by Nu rsing Services BLOOD SPECIMEN / Unknown 02/23/2018 9:41 EDT 02/23/2018 9:42 EDT Tyrell Vela MD CHEMISTRY & BLOOD GAS ORDERABLES Performing Organization Address [facility] Co de Phone Number [facility] [address] [place] [address] * BLOOD GAS, G3 ISTAT (02/23/2018 8:25 EDT) pH, i-STAT 7.44 7.35 - 7.45 02/23/2018 8:30 EDT [facility] pCO2, i-STAT 39 35 - 45 mmHg 02/23/2018 8:30 EDT [facility] pO2, i-STAT Results not available 80 - 105 mmHg 02/23/2018 8:30 T [facility] TCO2, i-STAT 27 23 - 27 mEq/L 02/23/2018 8:30 T [facility] O2 Saturation Results not available 95 - 98 % 02/23/2018 8:30 EDT [facility] Base Excess, i-STAT 2 02/23/2018 8:30 EDT [facility] Sample Type ARTERIAL 02/23/2018 8:30 EDT [facility] patternator ID [id number] 02/23/2018 8:30 EDT [facility] Comment: Test Performed by Respiratory For non-arterial reference ranges, please see ISTAT procedure. BLOOD SPECIMEN / Unknown 02/23/2018 8:25 EDT 02/23/2018 8:30 EDT Tyrell Vela MD CHEMISTRY & BLOOD GAS ORDERABLES Performing Organization Address [facility] Co de Phone Number [facility] [address] [place] [address] * (ABNORMAL) GLUCOSE, GLUCOMETER (02/23/2018 8:07 EDT) [facility] Signature Glucose, Fingerstick 128(H) 70 - 100 mg/dl 02/23/2018 8:34 EDT [facility] [employer] [place] [id number] 02/23/2018 8:34 EDT [facility] Comment:Test Performed by Nu ing Services BLOOD SPECIMEN / Unknown 02/23/2018 8:07 EDT 02/23/2018 8:34 EDT Tyrell Vela MD CHEMISTRY & BLOOD GAS ORDERABLES Performing Organization Address [facility] Co de Phone Number [facility] [address] [place] [address] * PORTABLE CHEST 1 VIEW (02/23/2018 6:44 EDT) Anatomical Region Laterality Modality Other 02/23/2018 6:44 EDT 02/23/2018 9:23 EDT Narrative 02/23/2018 9:23 EDT PORTABLE CHEST 1 VIEW ??02/23/2018 6:44 AM Clinical History/Comments: chest pain, shortness of breath Comparison: 02/18/2018 and 02/22/2018 Findings: Semiupright AP view was obtained. The endotracheal and transesophageal tubes have been removed. A mediastinal drain remains in place. Sternal wires are aligned and intact. Basilar atelectasis has improved and there is no longer evidence of pulmonary edema. The mediastinum is stable. There is no evidence of pneumothorax or pleural fluid, but neither can be excluded on this non-upright radiograph. Impression: Satisfactory postoperative appearance of the chest. Procedure Note Dwayne Bird MD - 02/23/2018 PORTABLE CHEST 1 VIEW 02/23/2018 6:44 AM Clinical History/Comments: chest pain, shortness of breath Comparison: 02/18/2018 and 02/22/2018 Findings: Semiupright AP view was obtained. The endotracheal and transesophageal tubes have been removed. A mediastinal drain remains in place. Sternal wires are aligned and intact. Basilar atelectasis has improved and there is no longer evidence of pulmonary edema. The mediastinum is stable. There is no evidence of pneumothorax or pleural fluid, but neither can be excluded on this non-upright radiograph. Impression: Satisfactory postoperative appearance of the chest. Wm Magana PA-C IMG DIAGNOSTIC IM AGING ORDERABLES * (ABNORMAL) GLUCOSE, GLUCOMETER (02/23/2018 6:05 EDT) [facility] Signature Glucose, Fingerstick 148(H) 70 - 100 mg/dl 02/23/2018 6:07 EDT [facility] [employer] [place] [id number] 02/23/2018 6:07 EDT [facility] Comment:Test Performed by [facility] Services BLOOD SPECIMEN / Unknown 02/23/2018 6:05 EDT 02/23/2018 6:07 EDT Tyrell Vela MD CHEMISTRY & BLOOD GAS ORDERABLES [facility] [address] [place] [address] * EKG 12-LEAD (02/23/2018 5:22 EDT) 02/23/2018 5:22 EDT Narrative [facility] EKG - 02/24/2018 11:56 EDT ? [facility] ? Test Date: ?2018-02-23 Pat Name: ? TROY SHIRA ? Department: ?? Vu 3 ? Room: ? M303 Gender: ? Female ? [employer] Maintenance: ?? [id number] : ?1945 ? Requested By: TIKI Ballard Order Number: [id number] ? Reading MD: ?? JESUS SANTAMARIA MD ? Measurements Intervals ?[place] ? Rate: ? 85 ? P: ?30 ND: ? 144 ?QRS: ?-5 QRSD: ? 134 ?T: ?145 QT: ? 409 ? QTc: ?489 ? Interpretive Statements SINUS RHYTHM INTRAVENTRICULAR CONDUCTION DELAY Compared to ECG 02/22/2018 12:39:18 No significant changes I reviewed the tracing and have either agreed or edited the findings in this report. Electronically Signed On 02-24-2018 11:56:21 EDT by JESUS SANTAMARIA MD. 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 Electronically Signed On 02-24-2018 11:56:21 EDT by MARIPOSA WOODS. Wm Magana PA-C CARDIAC ECG ORDER LEAH [facility] EKG * CREATININE (02/23/2018 4:53 EDT) Creatinine 0.68 0.52 - 1.04 mg/dl 02/23/2018 5:21 EDT [facility] Comment:Slight hemolysis GFR, Calculated 88 >60 ml/min/1.7 3m2 02/23/2018 5:21 EDT [facility] Comment: eGFR calculated using CKD-EPI equation for non Americans. Multiply eGFR by 1.16 for Americans. Blood specimen (specimen) BLOOD SPECIMEN / Unknown 02/23/2018 4:53 EDT 02/23/2018 4:56 EDT Tyrell Vela MD CHEMISTRY & BLOOD GAS ORDERABLES Performing Organization Address City/[facility] Co de Phone Number [facility] [address] [place] [address] * BUN (02/23/2018 4:53 EDT) BUN 18 10 - 26 mg/dl 02/23/2018 5:21 EDT [facility] Comment: Slight hemolysis Results may be affected due to hemolysis. Blood specimen (specimen) BLOOD SPECIMEN / Unknown 02/23/2018 4:53 EDT 02/23/2018 4:56 EDT Tyrell Vela MD CHEMISTRY & BLOOD GAS ORDERABLES Performing Organization Address [facility] de Phone Number [facility] [address] [place] [address] * ELECTROLYTES (02/23/2018 4:53 EDT) Sodium 139 136 - 145 mEq/L 02/23/2018 5:21 EDT [facility] Comment:Slight hemolysis Potassium 4.6 3.5 - 5.0 mEq/L 02/23/2018 5:21 EDT [facility] Comment: Slight hemolysis Hemolysis may elevate potassium result. Chloride 109 96 - 110 mEq/L 02/23/2018 5:21 EDT [facility] Comment:Slight hemolysis CO2 25 22 - 32 mEq/L 02/23/2018 5:21 EDT [facility] Comment:Slight hemolysis Blood specimen (specimen) BLOOD SPECIMEN / Unknown 02/23/2018 4:53 EDT 02/23/2018 4:56 EDT Tyrell Vela MD CHEMISTRY & BLOOD GAS ORDERABLES Performing Organization Address [facility] Co de Phone Number [facility] [address] [place] [address] * (ABNORMAL) GLUCOSE, GLUCOMETER (02/23/2018 3:51 EDT) Glucose, Fingerstick 141(H) 70 - 100 mg/dl 02/23/2018 3:53 EDT [facility] [employer] [place] [id number] 02/23/2018 3:53 EDT [facility] Comment:[facility] BLOOD SPECIMEN / Unknown 02/23/2018 3:51 EDT 02/23/2018 3:53 EDT Tyrell Vela MD CHEMISTRY & BLOOD GAS ORDERABLES Performing Organization Address City/[facility]/ZIP Co de Phone Number [facility] [address] [place] [address] * SLIDE REQUEST (02/23/2018 2:55 EDT) Pathologist [facility] Note A smear is filed in the Hematology lab 02/23/2018 4:12 EDT [facility] BLOOD SPECIMEN / Unknown 02/23/2018 2:55 EDT 02/23/2018 3:07 EDT Wm Magana PA-C HEMATOLOGY & PF4 ORDERABLES Performing Organization Address City/[facility]/ZIP Co de Phone Number [facility] [address] [place] [address] * (ABNORMAL) COMPLETE BLOOD COUNT (02/23/2018 2:55 EDT) Pathologist [facility] WBC 23.20(H) 4.0 - 12.4 K/cmm 02/23/2018 3:30 EDT [facility] RBC 3.50(L) 3.86 - 5.04 M/cmm 02/23/2018 3:30 EDT [facility] Hemoglobin 12.1 11.6 - 15.2 gm/dl 02/23/2018 3:30 T [facility] HCT 35.2 34.9 - 44.4 % 02/23/2018 3:30 EDT [facility] MCV 101(H) 81 - 98 fl 02/23/2018 3:30 EDT [facility] MCH 34.6(H) 26.7 - 33.3 pg 02/23/2018 3:30 EDT [facility] MCHC 34.4 32.1 - 35.9 gm/dl 02/23/2018 3:30 EDT [facility] RDW-CV 13.5 <14.7 % 02/23/2018 3:30 EDT [facility] RDW-SD 49.5 <50.4 fl 02/23/2018 3:30 EDT [facility] PLT 167 141 - 377 K/cmm 02/23/2018 3:30 EDT [facility] MPV 11.9 9.5 - 12.7 fl 02/23/2018 3:30 EDT [facility] Blood specimen (specimen) BLOOD SPECIMEN / Unknown 02/23/2018 2:55 EDT 02/23/2018 3:07 EDT Adryan Beasley MD HEMATOLOGY & PF4 ORD ERABLES Performing Organization Address City/[facility] Co de Phone Number [facility] LABORATORY SERVICES [address] [place] [address] * (ABNORMAL) GLUCOSE, GLUCOMETER (02/23/2018 2:02 EDT) Glucose, Fingerstick 142(H) 70 - 100 mg/dl 02/23/2018 2:07 EDT [facility] [employer] [place] [id number] 02/23/2018 2:07 EDT [facility] Comment:Test Performed by Nu ing Services BLOOD SPECIMEN / Unknown 02/23/2018 2:02 EDT 02/23/2018 2:07 EDT Tyrell Vela MD CHEMISTRY & BLOOD GAS ORDERABLES Performing Organization Address [facility] Co de Phone Number [facility] [address] [place] [address] * (ABNORMAL) GLUCOSE, GLUCOMETER (02/23/2018 0:01 EDT) Glucose, Fingerstick 143(H) 70 - 100 mg/dl 02/23/2018 0:07 EDT [facility] [employer] [place] [id number] 02/23/2018 0:07 EDT [facility] Comment:Test Performed by Nu rsing Services BLOOD SPECIMEN / Unknown 02/23/2018 0:01 EDT 02/23/2018 0:07 EDT Tyrell Vela MD CHEMISTRY & BLOOD GAS ORDERABLES Performing Organization Address [facility] Co de Phone Number [facility] [address] [place] [address] * (ABNORMAL) GLUCOSE, GLUCOMETER (02/22/2018 22:00 EDT) Glucose, Fingerstick 149(H) 70 - 100 mg/dl 02/22/2018 22:00 EDT [facility] [employer] [place] [id number] 02/22/2018 22:00 EDT [facility] Comment:Test Performed by Nu rsing Services BLOOD SPECIMEN / Unknown 02/22/2018 22:00 EDT 02/22/2018 22:01 EDT Tyrell Vela MD CHEMISTRY & BLOOD GAS ORDERABLES Performing Organization Address [facility] de Phone Number [facility] [address] [place] [id number] * (ABNORMAL) BLOOD GAS, G3 ISTAT (02/22/2018 20:22 EDT) pH, i-STAT 7.30(L) 7.35 - 7.45 02/22/2018 20:27 EDT [facility] pCO2, i-STAT 49(H) 35 - 45 mmHg 02/22/2018 20:27 EDT [facility] pO2, i-STAT 61(L) 80 - 105 mmHg 02/22/2018 20:27 EDT [facility] TCO2, i-STAT 25 23 - 27 mEq/L 02/22/2018 20:27 EDT [facility] O2 Saturation 88(L) 95 - 98 % 02/22/2018 20:27 EDT [facility] Base Deficit, i-STAT 3 02/22/2018 20:27 EDT [facility] FIO2 21 02/22/2018 20:27 EDT [facility] Sample Type ARTERIAL 02/22/2018 20:27 EDT [facility] LABORATORY patternator ID [id number] 02/22/2018 20:27 EDT [facility] Comment: Test Performed by Respiratory For non-arterial reference ranges, please see ISTAT procedure. BLOOD SPECIMEN / Unknown 02/22/2018 20:22 EDT 02/22/2018 20:27 EDT Tyrell Vela MD CHEMISTRY & BLOOD GAS ORDERABLES Performing Organization Address City/[facility]/ZIP Co de Phone Number [facility] [address] [place] [address] * (ABNORMAL) GLUCOSE, GLUCOMETER (02/22/2018 19:56 EDT) Glucose, Fingerstick 151(H) 70 - 100 mg/dl 02/22/2018 19:57 EDT [facility] [employer] [place] [id number] 02/22/2018 19:57 EDT [facility] Comment:Test Performed by Nu rsing Services BLOOD SPECIMEN / Unknown 02/22/2018 19:56 EDT 02/22/2018 19:57 EDT Tyrell Vela MD CHEMISTRY & BLOOD GAS ORDERABLES Performing Organization Address City/[facility]/ZIP Co de Phone Number [facility] [address] [place] [address] * (ABNORMAL) BLOOD GAS, G3 ISTAT (02/22/2018 18:56 EDT) pH, i-STAT 7.31(L) 7.35 - 7.45 02/22/2018 19:03 T [facility] pCO2, i-STAT 56(H) 35 - 45 mmHg 02/22/2018 19:03 EDT [facility] pO2, i-STAT 109(H) 80 - 105 mmHg 02/22/2018 19:03 T [facility] TCO2, i-STAT 30(H) 23 - 27 mEq/L 02/22/2018 19:03 EDT [facility] O2 Saturation 98 95 - 98 % 02/22/2018 19:03 EDT [facility] Base Excess, i-STAT 1 02/22/2018 19:03 EDT [facility] Sample Type ARTERIAL 02/22/2018 19:03 EDT [facility] LABOR[facility] patternator ID [id number] 02/22/2018 19:03 EDT [facility] Comment: Test Performed by Respiratory For non-arterial reference ranges, please see ISTAT procedure. BLOOD SPECIMEN / Unknown 02/22/2018 18:56 EDT 02/22/2018 19:03 EDT Tyrell Vela MD CHEMISTRY & BLOOD GAS ORDERABLES Performing Organization Address [facility] Co de Phone Number [facility] [address] [place] [address] * POTASSIUM (02/22/2018 18:49 EDT) Potassium 4.0 3.5 - 5.0 mEq/L 02/22/2018 19:14 EDT [facility] Blood specimen (specimen) BLOOD SPECIMEN / Unknown 02/22/2018 18:49 EDT 02/22/2018 19:00 EDT Wm Magana PA-C CHEMISTRY & BLOOD GAS ORDERABLES Performing Organization Address [facility]/ZIP Co de Phone Number [facility] [address] [place] [address] * SLIDE REQUEST (02/22/2018 18:04 EDT) Note A smear is filed in the Hematology lab 02/22/2018 19:10 EDT [facility] BLOOD SPECIMEN / Unknown 02/22/2018 18:04 EDT 02/22/2018 18:08 EDT Wm Magana PA-C HEMATOLOGY & PF4 ORDERABLES Performing Organization Address City/[facility]/ZIP Co de Phone Number [facility] [address] [place] [address] * (ABNORMAL) COMPLETE BLOOD COUNT (02/22/2018 18:04 EDT) WBC 22.68(H) 4.0 - 12.4 K/cmm 02/22/2018 18:29 [facility] RBC 3.58(L) 3.86 - 5.04 M/cmm 02/22/2018 18:29 [facility] Hemoglobin 12.2 11.6 - 15.2 gm/dl 02/22/2018 18:29 [facility] HCT 36.3 34.9 - 44.4 % 02/22/2018 18:29 [facility] MCV 101(H) 81 - 98 fl 02/22/2018 18:29 [facility] MCH 34.1(H) 26.7 - 33.3 pg 02/22/2018 18:29 [facility] MCHC 33.6 32.1 - 35.9 gm/dl 02/22/2018 18:29 [facility] RDW-CV 13.6 <14.7 % 02/22/2018 18:29 [facility] RDW-SD 50.1 <50.4 fl 02/22/2018 18:29 [facility] PLT 191 141 - 377 K/cmm 02/22/2018 18:29 [facility] MPV 12.2 9.5 - 12.7 fl 02/22/2018 18:29 [facility] Blood specimen (specimen) BLOOD SPECIMEN / Unknown 02/22/2018 18:04 EDT 02/22/2018 18:08 EDT Wm Magana PA-C HEMATOLOGY & PF4 ORDERABLES [facility] [address] [place] [address] * SURGICAL PATHOLOGY (02/22/2018 18:03 EDT) Pathology Report: SURGICAL PATHOLOGY REPORT Reports generated via electronic interface contain original data; however they are lacking the format of the original report. Caution should be taken when reading/interpret ing unformatted reports. Name: ? TROY ANDERS ? Accession #: ? [id number] ? : ? 1945 (Age: 72) ??F ? Collect Date: ? 02/22/2018 ? Location: ? SB03 ? Receive Date: ? 02/22/2018 ? Provider: TYRELL VELA MD Copy to: KIT BURCH MD ? Final Pathologic Diagnosis: CARDIAC VALVE, AORTIC, RESECTION: - Multiple fragments of cardiac valve tissue with: ? - Calcified multinodular sclerosis. ? - Focal stromal calcification and myxoid degenerative changes. Document reviewed and electronically signed by: Ronald Rob MD Report ??Date: 02/24/2018 17:02 By the signature above, the attending physician certifies that he/she has personally conducted a gross and/or microscopic examination of the described specimens and rendered or confirmed the above diagnosis. Specimen(s) Received: Aortic valve tissue Clinical History: AI, CAD Gross Description: ? Received in normal saline labelled with proper patient identification (initials P, E) and aortic valve tissue are multiple irregular fragments of roy-white to yellow soft tissue (2.2 x 2.0 x 0.4 cm in aggregate). Multiple bright yellow to focally brown calcifications are identified. No masses or lesions are identified. Box Chipper sections are submitted in 1 and 2. ELIUD Yates (ASCP) 02/23/2018 9:03 AM End of Report [facility] 02/22/2018 18:0 3 EDT 02/22/2018 18:03 EDT Tyrell eVla MD PATHOLOGY ORDERAB LES Performing Organization Address City/[facility]/ZIP Co de Phone Number [facility] [address] [place] [address] * (ABNORMAL) GLUCOSE, GLUCOMETER (02/22/2018 18:01 EDT) Glucose, Fingerstick 143(H) 70 - 100 mg/dl 02/22/2018 18:06 EDT [facility] [employer] [place] [id number] 02/22/2018 18:06 EDT [facility] Comment:Test Performed by Nu rsing Services BLOOD SPECIMEN / Unknown 02/22/2018 18:01 EDT 02/22/2018 18:06 EDT Tyrell Vela MD CHEMISTRY & BLOOD GAS ORDERABLES Performing Organization Address [facility] Co de Phone Number [facility] [address] [place] [address] * (ABNORMAL) GLUCOSE, GLUCOMETER (02/22/2018 15:53 EDT) Glucose, Fingerstick 137(H) 70 - 100 mg/dl 02/22/2018 15:57 EDT [facility] [employer] [place] [id number] 02/22/2018 15:57 EDT [facility] Comment:Test Performed by Nu rsing Services BLOOD SPECIMEN / Unknown 02/22/2018 15:53 EDT 02/22/2018 15:57 EDT Tyrell Vela MD CHEMISTRY & BLOOD GAS ORDERABLES [facility] [address] [place] [address] * (ABNORMAL) BLOOD GAS, G3 ISTAT (02/22/2018 13:50 EDT) pH, i-STAT 7.25(L) 7.35 - 7.45 02/22/2018 13:55 EDT [facility] pCO2, i-STAT 60(H) 35 - 45 mmHg 02/22/2018 13:55 EDT [facility] pO2, i-STAT 123(H) 80 - 105 mmHg 02/22/2018 13:55 EDT [facility] TCO2, i-STAT 28(H) 23 - 27 mEq/L 02/22/2018 13:55 EDT [facility] O2 Saturation 98 95 - 98 % 02/22/2018 13:55 T [facility] Base Deficit, i-STAT 2 02/22/2018 13:55 EDT [facility] FIO2 50 02/22/2018 13:55 T [facility] Sample Type ARTERIAL 02/22/2018 13:55 [facility] patternator ID [id number] 02/22/2018 13:55 T [facility] Comment: Test Performed by Respiratory For non-arterial reference ranges, please see ISTAT procedure. BLOOD SPECIMEN / Unknown 02/22/2018 13:50 EDT 02/22/2018 13:55 EDT Tyrell Vela MD CHEMISTRY & BLOOD GAS ORDERABLES [facility] [address] [place] [address] * (ABNORMAL) GLUCOSE, GLUCOMETER (02/22/2018 13:47 EDT) Glucose, Fingerstick 129(H) 70 - 100 mg/dl 02/22/2018 13:48 EDT [facility] [employer] [place] [id number] 02/22/2018 13:48 EDT [facility] Comment:Test Performed by Nu rsing Services BLOOD SPECIMEN / Unknown 02/22/2018 13:47 EDT 02/22/2018 13:48 EDT Tyrell Vela MD CHEMISTRY & BLOOD GAS ORDERABLES [facility] [address] [place] [address] * INPATIENT ADD-ON (02/22/2018 13:30 EDT) Tests to be added MAGNESIUM, PHOSPHOROU S 02/22/2018 13:26 EDT [facility] Number for problems [id number] 02/22/2018 13:47 EDT [facility] Accession number [id number] 02/22/2018 13:47 EDT [facility] TOPOGRAPHY UNKNOWN / Unknown 02/22/2018 13:30 EDT 02/22/2018 13:46 EDT Senait Candelaria MD HEMATOLOGY & PF4 ORD ERABLES Performing Organization Address City/[facility] Co de Phone Number [facility] [address] [place] [address] * INPATIENT ADD-ON (02/22/2018 12:50 EDT) Tests to be added HEMOGLOBIN A1C 02/22/2018 12:52 EDT [facility] Number for problems [id number] 02/22/2018 13:09 EDT [facility] Accession number [id number] 02/22/2018 13:09 EDT [facility] TOPOGRAPHY UNKNOWN / Unknown 02/22/2018 12:50 EDT 02/22/2018 13:09 EDT Adryan Beasley MD HEMATOLOGY & PF4 ORD ERABLES Performing Organization Address [facility] Co de Phone Number [facility] [address] [place] [address] * MRSA PCR (02/22/2018 12:40 EDT) Result No Staphylococcus aureus detected by PCR. 02/22/2018 19:45 EDT [facility] Specimen of unknown material (specimen) NASAL ROUTE / Unknown 02/22/2018 12:40 EDT 02/22/2018 13:04 EDT Wm Magana PA-C MICROBIOLOGY - GE NERAL ORDERABLES Performing Organization Address [facility] Co de Phone Number [facility] [address] [place] [address] * EKG 12-LEAD (02/22/2018 12:39 EDT) 02/22/2018 12:3 9 EDT Narrative [facility] EKG - 02/23/2018 14:19 EDT ? [facility] ? Test Date: ?2018-02-22 Pat Name: ? TROY ANDERS ? Department: ?? Vu 3 ? Room: ? M303 Gender: ? Female ? 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 Requested By: TIKI Ballard Order Number: [id number] ? Reading MD: ?? MARIFER BARKLEY MD ? Measurements Intervals ?[place] ? Rate: ? 89 ? P: ?57 ND: ? 194 ?QRS: ?13 QRSD: ? 145 ?T: ?164 QT: ? 414 ? QTc: ?505 ? Interpretive Statements SINUS RHYTHM INTRAVENTRICULAR CONDUCTION DELAY I reviewed the tracing and have either agreed or edited the findings in this report. Electronically Signed On 02-23-2018 14:19:43 EDT by MARIFER BARKLEY MD. 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 Electronically Signed On 02-23-2018 14:19:43 EDT by MARIFER HERNÁNDEZ. Wm Magana PA-C CARDIAC ECG ORDER LEAH [facility] EKG * PORTABLE CHEST PA CENTRAL LINE/PICC/ET TUBE,INITIAL INSERTION (02/22/2018 12:38 EDT) Anatomical Region Laterality Modality Other 02/22/2018 12:3 8 EDT 02/22/2018 13:06 EDT Narrative 02/22/2018 13:06 EDT PORTABLE CHEST 1 VIEW INITIAL LINE, ET INSERTION ??02/22/2018 12:38 PM Clinical History/Comments: Central line and ET tube placement Comparison: 01/19/2018. Findings: Single portable AP view of the chest. Lines/tubes: ??Endotracheal tube projects 1.5 cm above the tracheal kaiden. Right internal jugular venous catheter projects over the region of the mid SVC. Transesophageal catheter is coiled and projects over the gastric body. There are 2 mediastinal drains and one left pleural drain (according to the operative note, 36 Mongolian and 24 Shane mediastinal drains and a left 19 Shane pleural drain). Soft tissues and bones: Sternal wire sutures are present and intact. Cardiac and mediastinal contours: Within normal limits on this postoperative chest x-ray. Lungs: Mild interstitial prominence is noted. Retrocardiac opacity likely reflects atelectasis. Pleura: Probable, small pleural effusions. There is no obvious pneumothorax on this portable, supine film. Impression: 1. ??Atelectasis, probable small bilateral pleural effusions and minimal interstitial edema. 2. ??Tubes and lines as described above. Procedure Note Vicki Manley MD - 02/22/2018 PORTABLE CHEST 1 VIEW INITIAL LINE, ET INSERTION 02/22/2018 12:38 PM Clinical History/Comments: Central line and ET tube placement Comparison: 01/19/2018. Findings: Single portable AP view of the chest. Lines/tubes: Endotracheal tube projects 1.5 cm above the tracheal kaiden. Right internal jugular venous catheter projects over the region of the mid SVC. Transesophageal catheter is coiled and projects over the gastric body. There are 2 mediastinal drains and one left pleural drain (according to the operative note, 36 Mongolian and 24 Shane mediastinal drains and a left 19 Shane pleural drain). Soft tissues and bones: Sternal wire sutures are present and intact. Cardiac and mediastinal contours: Within normal limits on this postoperative chest x-ray. Lungs: Mild interstitial prominence is noted. Retrocardiac opacity likely reflects atelectasis. Pleura: Probable, small pleural effusions. There is no obvious pneumothorax on this portable, supine film. Impression: 1. Atelectasis, probable small bilateral pleural effusions and minimal interstitial edema. 2. Tubes and lines as described above. Wm Magana PA-C IMG DIAGNOSTIC IM AGING ORDERABLES * (ABNORMAL) GLUCOSE, GLUCOMETER (02/22/2018 12:36 EDT) Glucose, Fingerstick 111(H) 70 - 100 mg/dl 02/22/2018 12:37 EDT [facility] [employer] [place] [id number] 02/22/2018 12:37 EDT [facility] Comment:[facility] BLOOD SPECIMEN / Unknown 02/22/2018 12:36 EDT 02/22/2018 12:37 EDT Tyrell Vela MD CHEMISTRY & BLOOD GAS ORDERABLES Performing Organization Address [facility]/ZIP Co de Phone Number [facility] [address] [place] [address] * PHOSPHORUS (02/22/2018 12:32 EDT) Phosphorus 3.2 2.5 - 4.5 mg/dl 02/22/2018 14:43 EDT [facility] Comment: Slight hemolysis Results may be affected due to hemolysis. BLOOD SPECIMEN / Unknown 02/22/2018 12:32 EDT 02/22/2018 12:54 EDT Wm Magana PA-C CHEMISTRY & BLOOD GAS ORDERABLES Performing Organization Address City/[facility]/ZIP Co de Phone Number [facility] [address] [place] [address] * MAGNESIUM (02/22/2018 12:32 EDT) Magnesium 2.7 1.7 - 2.8 mg/dl 02/22/2018 14:43 EDT [facility] Comment: Slight hemolysis Results may be affected due to hemolysis. BLOOD SPECIMEN / Unknown 02/22/2018 12:32 EDT 02/22/2018 12:54 EDT Wm P Magana PA-C CHEMISTRY & BLOOD GAS ORDERABLES Performing Organization Address City/[facility]/ZIP Co de Phone Number [facility] [address] [place] [address] * HEMOGLOBIN A1C (02/22/2018 12:32 EDT) Hemoglobin A1C 5.5 % 02/22/2018 15:06 EDT [facility] Comment: Reference Range: <5.7% Normal 5.7-6.4% Prediabetes =>6.5% Diagnostic for diabetes (if confirmed) Goals for glycemic control in diabetes ADA 2017 For non adults with diabetes: ?? Target <7.5% For children and adolescents with type 1 diabetes: ?? Target <7.0% More or less stringent targets may be appropriate for individual patients. Est Avg Glucose 111 mg/dl 8 15:06 EDT [facility] Comment: eAG represents the A1c result expressed as average glucose in mg/dl. BLOOD SPECIMEN / Unknown 02/22/2018 12:32 EDT 02/22/2018 12:54 EDT Wm Magana PA-C CHEMISTRY & BLOOD GAS ORDERABLES Performing Organization Address [facility] Co de Phone Number [facility] [address] [place] [address] * CREATININE (02/22/2018 12:32 EDT) Creatinine 0.56 0.52 - 1.04 mg/dl 02/22/2018 13:19 EDT [facility] Comment:Slight hemolysis GFR, Calculated 94 >60 ml/min/1.7 3m2 02/22/2018 13:19 EDT [facility] Comment: eGFR calculated using CKD-EPI equation for non Americans. Multiply eGFR by 1.16 for Americans. Blood specimen (specimen) BLOOD SPECIMEN / Unknown 02/22/2018 12:32 EDT 02/22/2018 12:54 EDT Adryan Beasley MD CHEMISTRY & BLOOD GA S ORDERABLES Performing Organization Address [facility]/ZIP Co de Phone Number [facility] [address] [place] [id number] * BUN (02/22/2018 12:32 EDT) BUN 14 10 - 26 mg/dl 02/22/2018 13:19 [facility] Comment: Slight hemolysis Results may be affected due to hemolysis. Blood specimen (specimen) BLOOD SPECIMEN / Unknown 02/22/2018 12:32 EDT 02/22/2018 12:54 EDT Adryan Beasley MD CHEMISTRY & BLOOD GA S ORDERABLES [facility] [address] [place] [address] * (ABNORMAL) COMPLETE BLOOD COUNT (02/22/2018 12:32 EDT) WBC 13.59(H) 4.0 - 12.4 K/cmm 02/22/2018 13:10 [facility] RBC 3.63(L) 3.86 - 5.04 M/cmm 02/22/2018 13:10 [facility] Hemoglobin 12.3 11.6 - 15.2 gm/dl 02/22/2018 13:10 [facility] HCT 36.6 34.9 - 44.4 % 02/22/2018 13:10 [facility] MCV 101(H) 81 - 98 fl 02/22/2018 13:10 [facility] MCH 33.9(H) 26.7 - 33.3 pg 02/22/2018 13:10 [facility] MCHC 33.6 32.1 - 35.9 gm/dl 02/22/2018 13:10 [facility] RDW-CV 13.1 <14.7 % 02/22/2018 13:10 [facility] RDW-SD 48.9 <50.4 fl 02/22/2018 13:10 [facility] PLT 163 141 - 377 K/cmm 02/22/2018 13:10 [facility] MPV 11.7 9.5 - 12.7 fl 02/22/2018 13:10 EDT [facility] Blood specimen (specimen) BLOOD SPECIMEN / Unknown 02/22/2018 12:32 EDT 02/22/2018 12:54 EDT Wm Magana PA-C HEMATOLOGY & PF4 ORDERABLES Performing Organization Address [facility] de Phone Number [facility] [address] [place] [address] * POTASSIUM (02/22/2018 12:32 EDT) Potassium 4.4 3.5 - 5.0 mEq/L 02/22/2018 13:19 EDT [facility] Comment: Slight hemolysis Hemolysis may elevate potassium result. Blood specimen (specimen) BLOOD SPECIMEN / Unknown 02/22/2018 12:32 EDT 02/22/2018 12:54 EDT Wm Magana PA-C CHEMISTRY & BLOOD GAS ORDERABLES Performing Organization Address [facility] Co de Phone Number [facility] [address] [place] [address] * (ABNORMAL) BLOOD GAS, CG8 ISTAT (02/22/2018 11:22 EDT) pH, i-STAT 7.34(L) 7.35 - 7.45 02/22/2018 12:55 T [facility] pCO2, i-STAT 49(H) 35 - 45 mmHg 02/22/2018 12:55 EDT [facility] pO2, i-STAT 172(H) 80 - 105 mmHg 02/22/2018 12:55 T [facility] TCO2, i-STAT 27 23 - 27 mEq/L 02/22/2018 12:55 T [facility] O2 Saturation 99(H) 95 - 98 % 02/22/2018 12:55 T [facility] Sodium, i-STAT 140 136 - 145 mEq/L 02/22/2018 12:55 EDT [facility] Potassium, i-STAT 5.6(H) 3.5 - 5.0 mEq/L 02/22/2018 12:55 EDT [facility] Glucose, I-STAT 136(H) 70 - 100 mg/dl 02/22/2018 12:55 EDT [facility] Hematocrit,iSTA T 26(L) 34.9 - 44.4 % 02/22/2018 12:55 EDT [facility] Calcium, Ionized 1.29 1.12 - 1.32 mmol/L 02/22/2018 12:55 EDT [facility] Base Excess, i-STAT 0 02/22/2018 12:55 EDT [facility] Sample Type NOT GIVEN 02/22/2018 12:55 T [facility] patternator ID [id number] 02/22/2018 12:55 EDT [facility] Comment: Test performed by Perfusion For non-arterial reference ranges, please see ISTAT procedure. BLOOD SPECIMEN / Unknown 02/22/2018 11:22 EDT 02/22/2018 12:55 EDT Tyrell Vela MD CHEMISTRY & BLOOD GAS ORDERABLES Performing Organization Address City/[facility] Co de Phone Number [facility] [address] [place] [address] * ACT, CELITE ISTAT (02/22/2018 11:21 EDT) Activated Clotting Time 127 02/22/2018 11:54 EDT [facility] patternator ID [id number] 02/22/2018 11:54 EDT [facility] Comment: Test performed by Perfusion Baseline ref range is less than or equal to 160 seconds For non baseline ref ranges see procedure. BLOOD SPECIMEN / Unknown 02/22/2018 11:21 EDT 02/22/2018 11:54 EDT Tyrell Vela MD POINT OF CARE BESSY T ORDERABLES Performing Organization Address City/[facility]/ZIP Co de Phone Number [facility] [address] [place] [address] * (ABNORMAL) BLOOD GAS, CG8 ISTAT (02/22/2018 10:57 EDT) pH, i-STAT 7.47(H) 7.35 - 7.45 02/22/2018 12:55 [facility] pCO2, i-STAT 44 35 - 45 mmHg 02/22/2018 12:55 [facility] pO2, i-STAT 552(H) 80 - 105 mmHg 02/22/2018 12:55 [facility] TCO2, i-STAT 33(H) 23 - 27 mEq/L 02/22/2018 12:55 [facility] O2 Saturation 100(H) 95 - 98 % 02/22/2018 12:55 [facility] Sodium, i-STAT 138 136 - 145 mEq/L 02/22/2018 12:55 [facility] Potassium, i-STAT 5.0 3.5 - 5.0 mEq/L 02/22/2018 12:55 [facility] Glucose, I-STAT 167(H) 70 - 100 mg/dl 02/22/2018 12:55 [facility] Hematocrit,iSTA T 27(L) 34.9 - 44.4 % 02/22/2018 12:55 [facility] Calcium, Ionized 1.02(L) 1.12 - 1.32 mmol/L 02/22/2018 12:55 [facility] Base Excess, i-STAT 8 02/22/2018 12:55 [facility] Sample Type NOT GIVEN 02/22/2018 12:55 [facility] patternator ID [id number] 02/22/2018 12:55 [facility] Comment: Test performed by Perfusion For non-arterial reference ranges, please see ISTAT procedure. BLOOD SPECIMEN / Unknown 02/22/2018 10:57 EDT 02/22/2018 12:55 EDT Tyrell Vela MD CHEMISTRY & BLOOD GAS ORDERABLES [facility] [address] [place] [id number] * ACT, CELITE ISTAT (02/22/2018 10:56 EDT) Activated Clotting Time 631 02/22/2018 11:54 [facility] patternator ID [id number] 02/22/2018 11:54 [facility] Comment: Test performed by Perfusion Baseline ref range is less than or equal to 160 seconds For non baseline ref ranges see procedure. BLOOD SPECIMEN / Unknown 02/22/2018 10:56 EDT 02/22/2018 11:54 EDT Tyrell Vela MD POINT OF CARE BESSY T ORDERABLES [facility] [address] [place] [address] * (ABNORMAL) BLOOD GAS, CG8 ISTAT (02/22/2018 10:32 EDT) pH, i-STAT 7.40 7.35 - 7.45 02/22/2018 12:55 [facility] pCO2, i-STAT 45 35 - 45 mmHg 02/22/2018 12:55 [facility] pO2, i-STAT 55(L) 80 - 105 mmHg 02/22/2018 12:55 [facility] TCO2, i-STAT 29(H) 23 - 27 mEq/L 02/22/2018 12:55 [facility] O2 Saturation 88(L) 95 - 98 % 02/22/2018 12:55 [facility] Sodium, i-STAT 141 136 - 145 mEq/L 02/22/2018 12:55 [facility] Potassium, i-STAT 4.6 3.5 - 5.0 mEq/L 02/22/2018 12:55 [facility] Glucose, I-STAT 180(H) 70 - 100 mg/dl 02/22/2018 12:55 [facility] Hematocrit,iSTA T 29(L) 34.9 - 44.4 % 02/22/2018 12:55 [facility] Calcium, Ionized 1.07(L) 1.12 - 1.32 mmol/L 02/22/2018 12:55 EDT [facility] Base Excess, i-STAT 3 02/22/2018 12:55 EDT [facility] Sample Type NOT GIVEN 02/22/2018 12:55 EDT [facility] patternator ID [id number] 02/22/2018 12:55 EDT [facility] Comment: Test performed by Perfusion For non-arterial reference ranges, please see ISTAT procedure. BLOOD SPECIMEN / Unknown 02/22/2018 10:32 EDT 02/22/2018 12:55 EDT Tyrell Vela MD CHEMISTRY & BLOOD GAS ORDERABLES Performing Organization Address [facility] Co de Phone Number [facility] [address] [place] [address] * ACT, CELITE ISTAT (02/22/2018 10:31 EDT) Activated Clotting Time 607 02/22/2018 11:54 EDT [facility] patternator ID [id number] 02/22/2018 11:54 EDT [facility] Comment: Test performed by Perfusion Baseline ref range is less than or equal to 160 seconds For non baseline ref ranges see procedure. BLOOD SPECIMEN / Unknown 02/22/2018 10:31 EDT 02/22/2018 11:54 EDT Tyrell Vela MD POINT OF CARE BESSY T ORDERABLES Performing Organization Address [facility] Co de Phone Number [facility] [address] [place] [address] * (ABNORMAL) BLOOD GAS, CG8 ISTAT (02/22/2018 10:05 EDT) pH, i-STAT 7.43 7.35 - 7.45 02/22/2018 12:55 EDT [facility] pCO2, i-STAT 48(H) 35 - 45 mmHg 02/22/2018 12:55 EDT [facility] pO2, i-STAT 649(H) 80 - 105 mmHg 02/22/2018 12:55 [facility] TCO2, i-STAT 33(H) 23 - 27 mEq/L 02/22/2018 12:55 [facility] O2 Saturation 100(H) 95 - 98 % 02/22/2018 12:55 [facility] Sodium, i-STAT 139 136 - 145 mEq/L 02/22/2018 12:55 [facility] Potassium, i-STAT 5.0 3.5 - 5.0 mEq/L 02/22/2018 12:55 [facility] Glucose, I-STAT 183(H) 70 - 100 mg/dl 02/22/2018 12:55 [facility] Hematocrit,iSTA T 29(L) 34.9 - 44.4 % 02/22/2018 12:55 [facility] Calcium, Ionized 1.02(L) 1.12 - 1.32 mmol/L 02/22/2018 12:55 [facility] Base Excess, i-STAT 8 02/22/2018 12:55 [facility] Sample Type NOT GIVEN 02/22/2018 12:55 [facility] patternator ID [id number] 02/22/2018 12:55 [facility] Comment: Test performed by Perfusion For non-arterial reference ranges, please see ISTAT procedure. BLOOD SPECIMEN / Unknown 02/22/2018 10:05 EDT 02/22/2018 12:55 EDT Tyrell Vela MD CHEMISTRY & BLOOD GAS ORDERABLES [facility] [address] [place] [address] * ACT, CELITE ISTAT (02/22/2018 10:04 EDT) Activated Clotting Time 493 02/22/2018 11:54 [facility] patternator ID [id number] 02/22/2018 11:54 [facility] Comment: Test performed by Perfusion Baseline ref range is less than or equal to 160 seconds For non baseline ref ranges see procedure. BLOOD SPECIMEN / Unknown 02/22/2018 10:04 EDT 02/22/2018 11:54 EDT Tyrell Vela MD POINT OF CARE BESSY T ORDERABLES Performing Organization Address [facility] Co de Phone Number [facility] [address] [place] [address] * ACT, CELITE ISTAT (02/22/2018 9:19 EDT) Activated Clotting Time 489 02/22/2018 9:58 EDT [facility] patternator ID [id number] 02/22/2018 9:58 EDT [facility] Comment: Test performed by Perfusion Baseline ref range is less than or equal to 160 seconds For non baseline ref ranges see procedure. BLOOD SPECIMEN / Unknown 02/22/2018 9:19 EDT 02/22/2018 9:58 EDT Tyrell Vela MD POINT OF CARE BESSY T ORDERABLES Performing Organization Address [facility] Co de Phone Number [facility] [address] [place] [address] * (ABNORMAL) BLOOD GAS, CG8 ISTAT (02/22/2018 8:43 EDT) pH, i-STAT 7.39 7.35 - 7.45 02/22/2018 12:55 EDT [facility] pCO2, i-STAT 47(H) 35 - 45 mmHg 02/22/2018 12:55 EDT [facility] pO2, i-STAT 240(H) 80 - 105 mmHg 02/22/2018 12:55 EDT [facility] TCO2, i-STAT 29(H) 23 - 27 mEq/L 02/22/2018 12:55 T [facility] O2 Saturation 100(H) 95 - 98 % 02/22/2018 12:55 EDT [facility] Sodium, i-STAT 144 136 - 145 mEq/L 02/22/2018 12:55 EDT [facility] Potassium, i-STAT 4.0 3.5 - 5.0 mEq/L 02/22/2018 12:55 EDT [facility] Glucose, I-STAT 111(H) 70 - 100 mg/dl 02/22/2018 12:55 EDT [facility] Hematocrit,iSTA T 35 34.9 - 44.4 % 02/22/2018 12:55 EDT [facility] Calcium, Ionized 1.13 1.12 - 1.32 mmol/L 02/22/2018 12:55 EDT [facility] Base Excess, i-STAT 3 02/22/2018 12:55 T [facility] Sample Type NOT GIVEN 02/22/2018 12:55 EDT [facility] patternator ID [id number] 02/22/2018 12:55 EDT [facility] Comment: Test performed by Perfusion For non-arterial reference ranges, please see ISTAT procedure. BLOOD SPECIMEN / Unknown 02/22/2018 8:43 EDT 02/22/2018 12:55 EDT Tyrell Vela MD CHEMISTRY & BLOOD GAS ORDERABLES Performing Organization Address City/[facility]/ZIP Co de Phone Number [facility] [address] [place] [address] * ACT, CELITE ISTAT (02/22/2018 8:42 EDT) Activated Clotting Time 148 02/22/2018 9:58 EDT [facility] patternator ID [id number] 02/22/2018 9:58 EDT [facility] Comment: Test performed by Perfusion Baseline ref range is less than or equal to 160 seconds For non baseline ref ranges see procedure. BLOOD SPECIMEN / Unknown 02/22/2018 8:42 EDT 02/22/2018 9:58 EDT Tyrell Vela MD POINT OF CARE BESSY T ORDERABLES Performing Organization Address City/[facility]/ZIP Co de Phone Number [facility] [address] [place] [address] * ABO/RH (02/22/2018 6:52 EDT) ABO O [facility] Rh Factor Positive [facility] 02/22/2018 6:52 EDT Qing Hui MD MSc BLOOD BANK TESTS Performing Organization Address City/[facility]/ZIP Co de Phone Number [facility] * CREATININE (02/22/2018 6:52 EDT) Creatinine 0.66 0.52 - 1.04 mg/dl 02/22/2018 7:21 EDT [facility] GFR, Calculated 89 >60 ml/min/1.7 3m2 02/22/2018 7:21 EDT [facility] Comment: eGFR calculated using CKD-EPI equation for non Americans. Multiply eGFR by 1.16 for Americans. Blood specimen (specimen) BLOOD SPECIMEN / Unknown 02/22/2018 6:52 EDT 02/22/2018 6:58 EDT Tyrell Vela MD CHEMISTRY & BLOOD GAS ORDERABLES Performing Organization Address [facility] Co de Phone Number [facility] [address] [place] [address] * BUN (02/22/2018 6:52 EDT) BUN 16 10 - 26 mg/dl 02/22/2018 7:21 EDT [facility] Blood specimen (specimen) BLOOD SPECIMEN / Unknown 02/22/2018 6:52 EDT 02/22/2018 6:58 EDT Tyrell Vela MD CHEMISTRY & BLOOD GAS ORDERABLES Performing Organization Address [facility] Co de Phone Number [facility] [address] [place] [address] * ANESTH TRANSESOPHAGEAL ECHO (02/22/2018 6:50 EDT) Anatomical Region Laterality Modality Other 02/22/2018 6:50 EDT Narrative 02/22/2018 6:50 EDT Non Reportable Exam 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, 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 - 02/22/2018 Non Reportable Exam Arabella Quesada MD CARDIAC ECHO ORDERABLES * ORDERS - SCANNED (02/10/2018 11:37 EDT) 02/10/2018 11:3 7 EDT Scan 2 [employer] ADMISSION ORDERABLE S documented in this encounter Visit Diagnoses Diagnosis Nonrheumatic aortic valve stenosis- Primary Aortic valve disorders 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, unspecified vessel or lesion type (HCC-CMS) Nonrheumatic aortic valve stenosis Aortic valve disorders Somnolence Other alteration of consciousness 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 ([facility]-CMS) documented in this encounter Administered Medications Inactive Administered Medications - up to 3 most recent administrations Medication Order MAR Action Action Date Dose Rate Site acetaminophen (TYLENOL) solution unit dose cup 995 mg 995 mg (rounded from 1,000 mg), oral, EVERY 6 HOURS, First dose on Thu02/22/18 at 1245, Until Discontinued, Routine Given 02/24/2018 0:19 EDT 995 mg acetaminophen (TYLENOL) suppository 975 mg 975 mg, rectal, EVERY 6 HOURS, First dose on Thu02/22/18 at 1245, Until Discontinued, Routine acetaminophen (TYLENOL) tablet 1,000 mg 1,000 mg, oral, EVERY 6 HOURS, First dose on Thu02/22/18 at 1245, Until Discontinued, Routine Given 02/27/2018 6:24 EDT 1,000 mg Given 02/27/2018 1:23 EDT 1,000 mg Given 02/26/2018 19:57 EDT 1,000 mg aspirin chewable tablet 81 mg 81 mg, oral, DAILY, First dose on Thu02/23/18 at 0900, Until Discontinued, Routine Given 02/27/2018 8:02 EDT 81 mg Given 02/26/2018 8:10 EDT 81 mg Given 02/25/2018 9:09 EDT 81 mg ceFAZolin (ANCEF) 2,000 mg in sodium chloride 0.9% 50 mL IVPB 2,000 mg, intravenous, Administer over 30 Minutes, EVERY 8 HOURS, 2 doses, First dose on Thu02/22/18 at 1600, Last dose on Thu02/23/18 at 0000, Routine, On Unit Given 02/23/2018 0:01 EDT 2,000 mg Given 02/22/2018 15:28 EDT 2,000 mg ceFAZolin (ANCEF) syringe 2 g 2 g, intravenous, Administer over 10 Minutes, PRE-OP ONCE, 1 dose, On Thu02/22/18 at 0730, Routine, Pre-Op DOS Rx Approved Given by Other 02/22/2018 8:31 EDT 2 g chlorhexidine gluconate 2 % cloth 1 Each 1 Each, topical, PRE-OP MULTIPLE, 2 doses, Starting on Thu02/22/18 at 0624, Until Thu02/22/18 at 1219, Other, Routine, Pre-Op DOS Rx Approved Given by Other 02/22/2018 6:35 EDT 1 Each docusate sodium (COLACE) capsule 100 mg 100 mg, oral, 2 TIMES DAILY, First dose on Thu02/23/18 at 2100, Until Discontinued, Routine Given 02/25/2018 9:06 EDT 100 mg Given 02/24/2018 21:03 EDT 100 mg Given 02/24/2018 9:02 EDT 100 mg docusate sodium (COLACE) capsule 200 mg 200 mg, oral, 2 TIMES DAILY, First dose (after last modification) on Thu02/25/18 at 2100, Until Discontinued, Routine Given 02/27/2018 8:03 EDT 200 mg Given 02/26/2018 8:10 EDT 200 mg electrolyte-A (PLASMALYTE-A) bolus 500 mL 500 mL, intravenous, NOW X1, 1 dose, On Thu02/22/18 at 1530 Given 02/22/2018 15:10 EDT 500 mL electrolyte-A (PLASMALYTE-A) bolus 500 mL 500 mL, intravenous, NOW X1, 1 dose, On Thu02/22/18 at 1700 Given 02/22/2018 16:35 EDT 500 mL enoxaparin (LOVENOX) injection 40 mg 40 mg, subcutaneous, AT BEDTIME, First dose on Thu02/23/18 at 2100, Until Discontinued, Routine Given 02/24/2018 21:03 EDT 40 mg Given 02/23/2018 20:04 EDT 40 mg fentaNYL citrate (PF) 50 mcg/mL injection 25-100 mcg 25-100 mcg, intravenous, EVERY 1 HOUR PRN, Starting on Thu02/22/18 at 1233, Until Thu02/23/18 at 1517, Pain, Routine Given 02/22/2018 16:43 EDT 25 mcg Given 02/22/2018 12:45 EDT 50 mcg fentaNYL citrate (PF) 50 mcg/mL injection 1 dose, Starting on Thu02/22/18 at 1238, Until Thu02/22/18 at 1245 furosemide (LASIX) injection 20 mg 20 mg, intravenous, NOW X1, 1 dose, On Thu02/23/18 at 0830, Routine Given 02/23/2018 9:01 EDT 20 mg furosemide (LASIX) injection 20 mg 20 mg, intravenous, NOW X1, 1 dose, On Thu02/25/18 at 0415, Routine Given 02/25/2018 6:31 EDT 20 mg furosemide (LASIX) tablet 20 mg 20 mg, oral, 2 TIMES DAILY, First dose on Thu02/23/18 at 1545, Until Discontinued, Routine Given 02/27/2018 8:03 EDT 20 mg Given 02/26/2018 15:09 EDT 20 mg Given 02/26/2018 8:10 EDT 20 mg gabapentin (NEURONTIN) capsule 300 mg 300 mg, oral, EVERY 8 HOURS, 15 doses, First dose on Thu02/22/18 at 1600, Last dose on Thu02/27/18 at 0800, Routine Given 02/24/2018 0:19 EDT 300 mg Given 02/23/2018 9:01 EDT 300 mg Given 02/23/2018 0:02 EDT 300 mg glucagon injection 1 mg 1 mg, intramuscular, PRN, Starting on Thu02/25/18 at 0921, Until Thu02/27/18 at 1311, Low blood sugar, Routine HYDROmorphone (DILAUDID) tablet 2-4 mg 2-4 mg, oral, EVERY 2 HOURS PRN, Starting on Thu02/22/18 at 1219, Until Thu02/23/18 at 2141, Pain, Routine Given 02/23/2018 0:03 EDT 2 mg Given 02/22/2018 21:05 EDT 2 mg insulin aspart U-100 (NOVOLOG FLEXPEN) injection subcutaneous, 3 TIMES DAILY WITH MEALS, First dose on Thu02/25/18 at 0945, Until Discontinued, STAT Given 02/25/2018 17:38 EDT 3 Units insulin regular (HUMULIN R,NOVOLIN R) 100 Units in sodium chloride (NS) 0.9 % 100 mL infusion 1 Units/hr (1 mL/hr), intravenous, CONTINUOUS, Starting on Thu02/22/18 at 1245, Until Thu02/25/18 at 0920, STAT Rate Change 02/25/2018 6:26 EDT 1 Units/hr 1 mL/hr Rate Documented 02/25/2018 4:00 EDT 1.5 Units/hr 1.5 mL/hr Rate Documented 02/25/2018 2:00 EDT 1.5 Units/hr 1.5 mL/hr lactated ringers (LR) infusion 30 mL/hr, intravenous, CONTINUOUS, Starting on Thu02/22/18 at 0700, Until Thu02/22/18 at 1219, Routine, Pre-Op DOS Rx Approved New Bag 02/22/2018 6:50 EDT 30 mL/hr 30 mL/hr levothyroxine (SYNTHROID) tablet 125 mcg 125 mcg, oral, DAILY BEFORE BREAKFAST, First dose on Thu02/23/18 at 0700, Until Discontinued, Routine Given 02/27/2018 6:23 EDT 125 mcg Given 02/26/2018 6:56 EDT 125 mcg Given 02/25/2018 9:06 EDT 125 mcg metoprolol (LOPRESSOR) injection 5 mg 5 mg, intravenous, Once (Without Time Specified), 1 dose, Starting on Thu02/25/18 at 0655, Until 02/27/18 at 1311, Routine metoprolol (LOPRESSOR) tablet 25 mg 25 mg, oral, 2 TIMES DAILY, First dose on Thu02/24/18 at 2100, Until Discontinued, Routine Given 02/24/2018 18:35 EDT 25 mg metoprolol (LOPRESSOR) tablet 50 mg 50 mg, oral, 2 TIMES DAILY, First dose (after last modification) on Thu02/25/18 at 0900, Until Discontinued, Routine Given 02/26/2018 8:10 EDT 50 mg Given 02/25/2018 22:03 EDT 50 mg Given 02/25/2018 9:11 EDT 50 mg metoprolol (LOPRESSOR) tablet 75 mg 75 mg, oral, 2 TIMES DAILY, First dose (after last modification) on Thu02/26/18 at 2100, Until Discontinued, Routine Given 02/27/2018 8:03 EDT 75 mg Given 02/26/2018 20:01 EDT 75 mg naloxone (NARCAN) injection 0.2 mg 0.2 mg, intravenous, NOW X1, 1 dose, On Thu02/23/18 at 2200, Routine Given 02/23/2018 21:43 EDT 0.2 mg ondansetron (PF) (ZOFRAN) injection 4 mg 4 mg, intravenous, EVERY 6 HOURS PRN, Starting on Thu02/22/18 at 1219, Until Thu02/27/18 at 1311, Nausea, Routine Given 02/26/2018 13:52 EDT 4 mg Given 02/25/2018 2:36 EDT 4 mg Given 02/22/2018 16:17 EDT 4 mg phenylephrine HCl in 0.9% NaCl (NEO_SYNEPHRINE) 20 mg/250 mL (80 mcg/mL) infusion solution 10-80 mcg/min (7.5-60 mL/hr), intravenous, CONTINUOUS, Starting on Thu02/22/18 at 1245, Until Thu02/23/18 at 1517, Routine, On Unit Rate Documented 02/23/2018 4:00 EDT 10 mcg/min 7.5 mL/hr Rate Documented 02/23/2018 3:00 EDT 10 mcg/min 7.5 mL/hr Rate Documented 02/23/2018 2:00 EDT 10 mcg/min 7.5 mL/hr potassium chloride SA (K-DUR, KLOR-CON) tablet 10 mEq 10 mEq, oral, 2 TIMES DAILY, First dose on Thu02/23/18 at 1600, Until Discontinued, Routine Given 02/27/2018 8:03 EDT 10 mEq Given 02/26/2018 15:09 EDT 10 mEq Given 02/26/2018 8:10 EDT 10 mEq propOFol (DIPRIVAN) 10 mg/mL injection 1 dose, Starting on Thu02/22/18 at 1253, Until Thu02/23/18 at 1517 propOFol (DIPRIVAN) 1000 mg in 100 mL infusion 5-83 mcg/kg/min ? 84.4 kg (2.532-42.0312 mL/hr, rounded to 2.5-42 mL/hr), intravenous, CONTINUOUS, Starting on Thu02/22/18 at 1245, Until Thu02/22/18 at 1405, Routine, On Unit Rate Change-ICU/L&D Only 02/22/2018 13:43 EDT 40 mcg/kg/min 20.3 mL/hr New Bag 02/22/2018 12:55 EDT 50 mcg/kg/min 25.3 mL/hr propOFol (DIPRIVAN) 1000 mg in 100 mL infusion 5-83 mcg/kg/min ? 84.4 kg (2.532-42.0312 mL/hr, rounded to 2.5-42 mL/hr), intravenous, CONTINUOUS, Starting on Thu02/22/18 at 1430, Until Thu02/23/18 at 1517, Routine Rate Change-ICU/L&D Only 02/22/2018 16:11 EDT 10 mcg/kg/min 5.1 mL/hr Rate Documented 02/22/2018 16:00 EDT 20 mcg/kg/min 10.1 mL /hr Rate Change-ICU/L&D Only 02/22/2018 15:40 EDT 20 mcg/kg/mi n 10.1 mL/hr senna (SENOKOT) tablet 2 Tab 2 Tablet, oral, 2 TIMES DAILY, First dose on Thu02/23/18 at 2100, Until Discontinued, Routine Given 02/25/2018 9:14 EDT 2 Tablets Given 02/24/2018 21:03 EDT 2 Tablets Given 02/24/2018 9:02 EDT 2 Tablets senna (SENOKOT) tablet 3 Tab 3 Tablet, oral, 2 TIMES DAILY, First dose (after last modification) on Thu02/25/18 at 2100, Until Discontinued, Routine Given 02/27/2018 8:03 EDT 3 Tablets Given 02/26/2018 8:10 EDT 3 Tablets Given 02/25/2018 22:03 EDT 3 Tablets sertraline (ZOLOFT) tablet 50 mg 50 mg, oral, DAILY, First dose on Thu02/23/18 at 0900, Until Discontinued, Routine Given 02/27/2018 8:03 EDT 50 mg Given 02/26/2018 8:10 EDT 50 mg Given 02/25/2018 9:11 EDT 50 mg simvastatin (ZOCOR) tablet 20 mg 20 mg, oral, DAILY, First dose on Thu02/23/18 at 0900, Until Discontinued, Routine Given 02/27/2018 8:03 EDT 20 mg Given 02/26/2018 8:10 EDT 20 mg Given 02/25/2018 9:12 EDT 20 mg sodium chloride 0.9 % (NS) infusion 10 mL/hr, intravenous, CONTINUOUS, Starting on Thu02/22/18 at 1245, Until 02/27/18 at 1311, Routine Rate Documented 02/25/2018 4:00 EDT 10 mL/hr 10 mL/h r Rate Documented 02/25/2018 2:00 EDT 10 mL/hr 10 mL/hr New Bag 02/24/2018 16:24 EDT 10 mL/hr 10 mL/hr traMADol (ULTRAM) tablet 50 mg 50 mg, oral, EVERY 6 HOURS PRN, Starting on Thu02/24/18 at 1416, Until 02/27/18 at 1311, Pain, Routine Given 02/26/2018 13:23 EDT 50 mg Given 02/26/2018 0:56 EDT 50 mg Given 02/25/2018 18:13 EDT 50 mg traMADol (ULTRAM) tablet 50-100 mg 50-100 mg, oral, EVERY 6 HOURS PRN, Starting on Thu02/22/18 at 1219, Until Thu02/24/18 at 0538, Pain, Routine Given 02/23/2018 9:02 EDT 25 mg Given 02/22/2018 22:24 EDT 100 mg Given 02/22/2018 13:33 EDT 50 mg documented in this encounter Discontinued Medications Medication Sig Discontinue Reason Start Date End Da te mupirocin (BACTROBAN) 2 % ointment Apply both nostrils twice a day for 5 days prior to surgery if test results positive. The physician's office will call to tell you if you need to fill this prescription. Error 02/08/2018 02/15/2018 Chlorhexidine Gluconate 2 % liquid Use once daily beginning 5 days prior to surgery if test results positive. The physician's office will call to tell you if you need to fill this prescription. Error 02/08/2018 02/15/2018 traMADol (ULTRAM) 50 mg tablet Take 50 mg by mouth every 6 hours as needed for Pain. 02/27/2018 lisinopril (PRINIVIL, ZESTRIL) 20 mg tablet Take 20 mg by mouth daily. 02/27/2018 documented as of this encounter Active and Recently Administered Medications Times are shown in EDT. Scheduled Medication Order 02/25/2018 02/26/2018 02/27/2018 acetaminophen (TYLENOL) solution unit dose cup 995 mg(Linked Group 1) 995 mg (rounded from 1,000 mg), oral, EVERY 6 HOURS, First dose on Thu02/22/18 at 1245, Until Discontinued, Routine 0048 (See Alternative - Provider: Natalia Cox RN)0631 (See Alternative - Provider: Natalia Cox RN)1205 (See Alternative - Provider: Sherry Queen RN)1737 (See Alternative - Provider: Marni Mckeon RN)2323 (See Alternative - Provider: Iza Pedro RN) 0644 (See Alternative - Provider: Iza Pedro RN)1324 (See Alternative - Provider: Armando Dey RN)1957 (See Alternative - Provider: Iza Pedro RN) 0123 (See Alternative - Provider: Iza Pedro RN)0624 (See Alternative - Provider: Iza Pedro RN) acetaminophen (TYLENOL) suppository 975 mg(Linked Group 1) 975 mg, rectal, EVERY 6 HOURS, First dose on Thu02/22/18 at 1245, Until Discontinued, Routine 0048 (See Alternative - Provider: Natalia Cox RN)0631 (See Alternative - Provider: Natalia Cox RN)1205 (See Alternative - Provider: Sherry Queen RN)1737 (See Alternative - Provider: Marni Mckeon RN)2323 (See Alternative - Provider: Iza Pedro RN) 0644 (See Alternative - Provider: Iza Pedro RN)1324 (See Alternative - Provider: Armando Dey RN)1957 (See Alternative - Provider: Iza Pedro RN) 0123 (See Alternative - Provider: Iza Pedro RN)0624 (See Alternative - Provider: Iza Pedro RN) acetaminophen (TYLENOL) tablet 1,000 mg(Linked Group 1) 1,000 mg, oral, EVERY 6 HOURS, First dose on Thu02/22/18 at 1245, Until Discontinued, Routine 0048 (Given - Provider: Natalia Cox RN)0631 (Given - Provider: Natalia Cox RN)1205 (Given - Provider: Sherry Queen, STACIE)1737 (Given - Provider: Marni Mckeon RN)2323 (Given - Provider: Iza Pedro RN) 0644 (Given - Provider: Iza Pedro RN)1324 (Given - Provider: Armando Dey, STACIE)1957 (Given - Provider: Iza Pedro RN - Comment: not given by outgoing RN) 0123 (Given - Provider: Iza Pedro RN)0624 (Given - Provider: Iza Pedro RN) aspirin chewable tablet 81 mg 81 mg, oral, DAILY, First dose on Thu02/23/18 at 0900, Until Discontinued, Routine 0909 (Given - Provider: Sherry Queen RN) 0810 (Given - Provider: Armando Dey RN) 08 (Given - Provider: Shireen Medrano, STACIE) docusate sodium (COLACE) capsule 100 mg (CANCELED) 100 mg, oral, 2 TIMES DAILY, First dose on Thu02/23/18 at 2100, Until Discontinued, Routine 09 (Given - Provider: Sherry Queen RN) docusate sodium (COLACE) capsule 200 mg 200 mg, oral, 2 TIMES DAILY, First dose (after last modification) on Thu02/25/18 at 2100, Until Discontinued, Routine 215 (Not Given - Provider: Iza Pedro RN - Reason: Patient/family refused) 08 (Given - Provider: Armando Dey RN)1999 (Not Given - Provider: Iza Pedro RN - Reason: Other - Comment: loose stools) 08 (Given - Provider: Shireen Medrano RN) furosemide (LASIX) injection 20 mg (COMPLETED) 20 mg, intravenous, NOW X1, 1 dose, On Thu02/25/18 at 0415, Routine 0631 (Given - Provider: Natalia Cox RN) furosemide (LASIX) tablet 20 mg 20 mg, oral, 2 TIMES DAILY, First dose on Thu02/23/18 at 1545, Until Discontinued, Routine 0910 (Given - Provider: Sherry Queen RN)1738 (Given - Provider: Marni Mckeon RN) 0810 (Given - Provider: Armando Dey RN)1509 (Given - Provider: Armando Dey RN) 0803 (Given - Provider: Shireen Medrano RN) insulin aspart U-100 (NOVOLOG FLEXPEN) injection subcutaneous, 3 TIMES DAILY WITH MEALS, First dose on Thu02/25/18 at 0945, Until Discontinued, STAT 0947 (Not Given - Provider: Sherry Queen RN - Reason: Order parameters not met - Comment: pt already eaten breakfast)1217 (Not Given - Provider: Sherry Queen RN - Reason: Order parameters not met)1738 (Given - Provider: Marni Mckeon RN) 0800 (Not Given - Provider: Armando Dey RN - Reason: Order parameters not met)1216 (Not Given - Provider: Armando Dey RN - Reason: Order parameters not met)1713 (Not Given - Provider: Armando Dey RN - Reason: Order parameters not met) 0750 (Not Given - Provider: Shireen Medrano RN - Reason: Order parameters not met) levothyroxine (SYNTHROID) tablet 125 mcg 125 mcg, oral, DAILY BEFORE BREAKFAST, First dose on Thu02/23/18 at 0700, Until Discontinued, Routine 0906 (Given - Provider: Sherry Queen RN) 0656 (Given - Provider: Iza Pedro, STACIE) 0623 (Given - Provider: Iza Pedro, STACIE) metoprolol (LOPRESSOR) injection 5 mg 5 mg, intravenous, Once (Without Time Specified), 1 dose, Starting on Birgit 02/25/18 at 0655, Until 02/27/18 at 1311, Routine metoprolol (LOPRESSOR) tablet 50 mg (CANCELED) 50 mg, oral, 2 TIMES DAILY, First dose (after last modification) on Thu02/25/18 at 0900, Until Discontinued, Routine 910 (Given - Provider: Sherry Queen RN)2202 (Given - Provider: Iza Pedro RN) 08 (Given - Provider: Armando Dey RN) metoprolol (LOPRESSOR) tablet 75 mg 75 mg, oral, 2 TIMES DAILY, First dose (after last modification) on Thu02/26/18 at 2100, Until Discontinued, Routine 2000 (Given - Provider: Iza Pedro RN) 802 (Given - Provider: Shireen Medrano RN) potassium chloride SA (K-DUR, KLOR-CON) tablet 10 mEq 10 mEq, oral, 2 TIMES DAILY, First dose on Thu02/23/18 at 1600, Until Discontinued, Routine 912 (Given - Provider: Sherry Queen RN)1738 (Given - Provider: Marni Mckeon RN) 08 (Given - Provider: Armando Dey RN)1509 (Given - Provider: Armando Dey RN) 08 (Given - Provider: Shireen Medrano, STACIE) senna (SENOKOT) tablet 2 Tab (CANCELED) 2 Tablet, oral, 2 TIMES DAILY, First dose on Thu02/23/18 at 2100, Until Discontinued, Routine 913 (Given - Provider: Sherry Queen RN) senna (SENOKOT) tablet 3 Tab 3 Tablet, oral, 2 TIMES DAILY, First dose (after last modification) on Thu02/25/18 at 2100, Until Discontinued, Routine 2202 (Given - Provider: Iza Pedro RN) 809 (Given - Provider: Armando Dey RN)2000 (Not Given - Provider: Iza Pedro RN - Reason: Patient/family refused) 08 (Given - Provider: Shireen Medrano, STACIE) sertraline (ZOLOFT) tablet 50 mg 50 mg, oral, DAILY, First dose on Thu02/23/18 at 0900, Until Discontinued, Routine 910 (Given - Provider: Sherry Queen RN) 08 (Given - Provider: Armando Dey RN) 08 (Given - Provider: Shireen Medrano RN) simvastatin (ZOCOR) tablet 20 mg 20 mg, oral, DAILY, First dose on Thu02/23/18 at 0900, Until Discontinued, Routine 0912 (Given - Provider: Sherry Queen RN) 0810 (Given - Provider: Armando Dey RN) 0803 (Given - Provider: Shireen Medrano RN) Continuous Medication Order 02/25/2018 02/26/2018 02/27/2018 insulin regular (HUMULIN R,NOVOLIN R) 100 Units in sodium chloride (NS) 0.9 % 100 mL infusion (CANCELED) 1 Units/hr (1 mL/hr), intravenous, CONTINUOUS, Starting on Thu02/22/18 at 1245, Until Birgit 02/25/18 at 0920, STAT 0200 (Rate Documented - Provider: Natalia Cox RN)0400 (Rate Documented - Provider: Natalia Cox RN)0626 (Rate Change - Provider: Natalia Cox RN)0818 (Hold - Provider: Sherry Queen RN - Reason: Change in condition)0938 (Completed - Provider: Sherry Queen RN) sodium chloride 0.9 % (NS) infusion 10 mL/hr, intravenous, CONTINUOUS, Starting on Thu02/22/18 at 1245, Until 02/27/18 at 1311, Routine 0200 (Rate Documented - Provider: Natalia Cox RN)0400 (Rate Documented - Provider: Natalia Cox RN)0939 (IV Stopped - Provider: Sherry Queen RN) PRN Medication Order 02/25/2018 02/26/2018 02/27/2018 bisacodyl (DULCOLAX) suppository 10 mg 10 mg, rectal, DAILY PRN, Starting on Thu02/23/18 at 1516, Until 02/27/18 at 1311, Constipation, PRN for constipation or if no bowel movement by POD#3, Routine dextrose 50 % solution 12.5-25 g 12.5-25 g, intravenous, PRN, Starting on Thu02/22/18 at 1219, Until 02/27/18 at 1311, Low Blood Sugar, Routine glucagon injection 1 mg 1 mg, intramuscular, PRN, Starting on Birgit 02/25/18 at 0921, Until 02/27/18 at 1311, Low blood sugar, Routine ondansetron (PF) (ZOFRAN) injection 4 mg 4 mg, intravenous, EVERY 6 HOURS PRN, Starting on Thu02/22/18 at 1219, Until 02/27/18 at 1311, Nausea, Routine 0236 (Given - Provider: Natalia Cox, RN) 1352 (Given - Provider: Armando Dey, STACIE) traMADol (ULTRAM) tablet 50 mg 50 mg, oral, EVERY 6 HOURS PRN, Starting on Thu02/24/18 at 1416, Until 02/27/18 at 1311, Pain, Routine 1813 (Given - Provider: Marni Mckeon RN) 0056 (Given - Provider: Iza Pedro RN)1323 (Given - Provider: Armando Dey, STACIE) Linked Groups Order Group 1: acetaminophen (TYLENOL) tablet 1,000 mgJump to med 1,000 mg, oral, EVERY 6 HOURS, First dose on Thu02/22/18 at 1245, Until Discontinued, Routine Or acetaminophen (TYLENOL) suppository 975 mgJump to med 975 mg, rectal, EVERY 6 HOURS, First dose on Thu02/22/18 at 1245, Until Discontinued, Routine Or acetaminophen (TYLENOL) solution unit dose cup 995 mgJump to med 995 mg (rounded from 1,000 mg), oral, EVERY 6 HOURS, First dose on Thu02/22/18 at 1245, Until Discontinued, Routine documented in this encounter Orders Medications Ordered That Antoni ht Not Have Been Administered Count Last Ordered Date First Ordered Date glucagon injection 1 mg 1 02/25/2018 metoprolol (LOPRESSOR) injection 5 mg 1 08/2017 bisacodyl (DULCOLAX) suppository 10 mg 1 naloxone (NARCAN) 0.4 mg/mL injection acetaminophen (TYLENOL) suppository 975 mg 02/22/2018 dextrose 50 % solution 12.5-25 g 02/23/20 18 gabapentin (NEURONTIN) solution 300 mg HYDROmorphone injection (DIL AUDID) 0.5 mg/1 mL syringe 0.2-0.4 mg 02/22/2018 insulin regular (HUMULIN R, NOVOLIN R) 2 Units bolus infusion 1 02/22/2018 nitroglycerin 400 mcg/ml in D5W 250 ml infusion 1 02/22/2018 potassium chloride in water infusion 20 mEq 1 02/22/2018 induction 4:1 high potassium (HIGH K) bag 415 mL 1 02/21/2018 maintenance 4:1 low potassiu m (LOW K) bag 810 mL 1 02/21/2018 Diet Count Last Ordered Date First Orde red Date DISCHARGE DIET 2 02/27/2018 Nursing Count Last Ordered Date First Orde red Date ACTIVITY INSTRUCTIONS 7 02/27/2018 BATHING INSTRUCTIONS 2 02/27/2018 WOUND CARE INSTRUCTIONS 6 02/27/2018 CH CATHETER - DISCONTINUE 1 02/24/2018 CONTRAINDICATION TO ANTICOAG ULATION THERAPY 1 02/22/2018 INSERT CH CATHETER 1 02/22/2018 REMOVE OROGASTRIC TUBE 1 02/22/2018 TUBE MAINTENANCE 1 02/22/2018 PT Count Last Ordered Date First Orde red Date PT EVALUATION AND TREAT 1 02/23/2018 Respiratory Care Count Last Ordered Date First Ordered Date AIRWAY CLEARANCE THERAPY 2 02/22/2018 EXTUBATION 1 02/22/2018 RESPIRATORY CARE EVALUATION ONLY 2 02/23/20 18 IV Count Last Ordered Date First Orde red Date REMOVE CENTRAL CATHETER 1 02/24/2018 IV REQUEST 1 02/23/2018 Admission Count Last Ordered Date First Orde red Date STATUS: INPATIENT DOSA/DOPA DAY OF SURGERY/PROCEDURE ADMISSION 1 02/22/2018 Transfer Count Last Ordered Date First Orde red Date NOTIFY PPS OF DISCHARGE COMPLETE 1 02/28/20 18 PPS NOTIFICATION OF PATIENT ARRIVAL ON UNIT 2 02/23/2018 02/22/2018 PPS NOTIFICATION OF SENDING PATIENT OFF THE UNIT 2 02/23/2018 02/22/2018 TRANSFER PATIENT 1 02/23/2018 Discharge Count Last Ordered Date First Orde red Date DISCHARGE PATIENT 1 02/27/2018 Legal Count Last Ordered Date First Orde red Date MISCELLANEOUS DISCHARGE INSTRUCTIONS 3 10/2017 documented in this encounter Care Teams Sensor Specialist Relationship Specialty Start Date End Date Kit Burch MD [facility] [employer] [address] [place] [address] PCP - General 01/15/18 10/29/23 documented as of this encounter
--- OUTSIDE RECORDS SUMMARY | 2024-03-03 01:20 | XMS_ITS | Encounter Summary ---
Author Organization [facility] Address [address] [place] [address] Care Team Providers Care Tapper Balance Wheel Screw Hole Name Role Phone Jewel Fontenot MD Primary Care Provider [phone] Encounter Details Date Type Department Care Team (Late st Contact Info) Description 10/22/2016 Results Only Imaging [facility] [phone] Unknown, Provider, Social History Tobacco Use Types [...] Info) Description 03/08/2025 11:00 EDT Office Visit [facility] [address] [place] [phone] Cynthia Salinas MD [address] [place] [address] [address] [place] [address] documented as of this encounter Procedures Procedure Name Priority Date/Time Associated Diagnosis Comments OUTSIDE IMAGES ? ECHO IMAGES 10/22/2016 13:48 EDT documented in this encounter Results * OUTSIDE IMAGES ??? ECHO IMAGES (10/22/2016 13:48 EDT) Anatomical Region Laterality Modality Other 10/22/2016 13:4 8 EDT Narrative 10/22/2016 13:48 EDT This is an outside study - there is no report. Procedure Note ZINC MINER BLASTING, IMAGING - 12/29/2017 This is an outside study - there is no report. Provider Unknown MD ADKINS OTHER IMAGING OR DERABLES documented in this encounter Visit Diagnoses Not on filedocumented in this encounter Care Teams Tapper Balance Wheel Screw Hole Relationship Specialty Start Date End Date Jewel Fontenot MD [address] [place] [address] [address] [place] [id number] PCP - General 06/01/15 01/14/18 documented as of this encounter
--- NOTE | 2024-03-03 13:21 | DI.RAD_ITS ---
Exam(s) XR FOOT LT COMPLETE XR FOOT RT COMPLETE EXAM: XR FOOT RT COMPLETE CLINICAL HISTORY: Right foot pain, M79.671. TECHNIQUE: 2D digital imaging was performed. Three views of both feet. COMPARISON: CR XR FOOT LT COMPLETE from 03/03/2024 FINDINGS: BONES: No acute fracture is present. No bony destructive lesion is seen. Prominent enthesophytes at the Achilles insertion on the calcaneus and adjacent soft tissue thickening. JOINTS: No dislocation present. Bilateral flattening of the plantar arch. Degenerative changes grea test at the tarsal metatarsal joints SOFT TISSUE: Vascular calcifications. IMPRESSION: Pes planus and prominent calcaneal enthesophytes. DATA REPOSITORY: RADIATION DOSE DELIVERED:
== END ==
PROVIDERS: PCP Family Medicine; Visit Provider Podiatrist
DX: M79.671 Pain in right foot (principal); M21.41 Flat foot [pes planus] (acquired), right foot; M21.42 Flat foot [pes planus] (acquired), left foot; M77.31 Calcaneal spur, right foot; M77.32 Calcaneal spur, left foot
CPT/HCPCS: 11719; 64455; 73630

== ENCOUNTER → 2024-03-31 15:08 | Outpatient (BNVA) | payer MEDICARE, MEDICAID, SELFPAY | PROVIDERS: PCP Family Medicine; Referring Provider Family Medicine; Visit Provider Podiatrist | DX: G57.61 Lesion of plantar nerve, right lower limb (principal); G57.62 Lesion of plantar nerve, left lower limb; M79.671 Pain in right foot; M79.672 Pain in left foot; L60.3 Nail dystrophy; B35.1 Tinea unguium; I87.2 Venous insufficiency (chronic) (peripheral); G57.81 Other specified mononeuropathies of right lower limb; G57.82 Other specified mononeuropathies of left lower limb; I70.203 Unspecified atherosclerosis of native arteries of extremities, bilateral legs; G62.9 Polyneuropathy, unspecified | CPT/HCPCS: 64455; J0702; J1100 ==

== ENCOUNTER 2024-05-13 22:46 | Outpatient (REF) | payer MEDICARE, MEDICAID, SELFPAY ==
--- OUTSIDE RECORDS SUMMARY | 2024-05-13 22:48 | XMS_ITS ---
Author Organization Unknown ALLERGIES AND ADVERSE REACTIONS No information ASSESSMENT No information CHIEF COMPLAINT No information MEDICATIONS No information OBJECTIVE DATA No information PHYSICAL EXAMINATION No information TREATMENT PLAN Planned Care Start Date Provider Encounter for Check-up [id number] PROBLEMS No information RESULTS No information REVIEW OF SYSTEMS No information SUBJECTIVE DATA No information VITAL SIGNS No information
--- OUTSIDE RECORDS SUMMARY | 2024-05-13 22:49 | XMS_ITS ---
Author Organization Unknown Address [address] [place] [phone] Phone Care Team Providers Care Client Care Manager Name Role Phone AVRIL Singh Attending Unavailable CHIDI Cohen Primary Unavailable Results XR CALCANEUS 2V RT* - Comple giselle: 05/20/2022 10:20 LOINC: [facility] [place], [place] [address] PACS FORMAL WEAR RENTAL CLERK REPORT Patient Name: TROY SILVA MRN: Sex: : Age: [id number] F 1945 76 Account: Accession: Admit: StayType: [id number] 05/20/2022 CLINIC Ordered: Order ID: Submitted: Ordering Provider: 05/20/2022 10:17 [id number] [facility] Completed: Technologist: Resulted: 05/21/2022 10:17 [...] em Smoking History Never smoker (Never Smoked) [id number] SNOMED CT Sex Female Assessment You had [...] NOS L LEG active SNOMED-CT GERD active 370415972 SNOMED-CT HYPOTHYROIDISM active 80075240 SNOME D-CT CHF active 91977522 SNOMED-CT Allergies and Adverse Reactions Allergy Substance Reaction Severity Start Date Concern Status Co de Code System MORPHINE Moderate Active 7052 RxNorm Plan of Treatment No Data Found Encounters Encounter Diagnosis Start Date Code Code Sys tem 05/20/2022 [id number] SNOMED-CT Personal Care Team Section Performer Name Performer Role Active Date Inactive Da te
--- OUTSIDE RECORDS SUMMARY | 2024-05-13 22:49 | XMS_ITS ---
Author Organization Unknown Address [address] [place] [address] [phone] Phone Care Team Providers Care Dry Box Tender Name Role Phone CHIDI Cohen Attending Unavailable Results IMMUNOFIXATION AND SPEP SERU M* - Collect Date/Time: 03/06/2022 11:27 [facility] ID: [id number] [address] [place] [address], [phone] LOINC: Test Value Unit Reference Range Code [...] 03/06/2022 11:27 [facility] ID: [id number] [address] [place] [address], [address] LOINC: 4537-7 Test Value Unit Reference Range Code Code System Flag SED. RATE 14 mm/hr L=0 H=30 4537-7 LOINC TSH THYROID STIMULATING HORM ONE* - Collect Date/Time: 03/06/2022 11:27 [facility] ID: [id number] [address] [place] [address], [address] LOINC: 3014-8 Test Value Unit Reference Range Code Code System Flag TSH 0.617 uIU/mL L=0.360 H=3.740 3014-8 LOINC CBC W/ DIFFERENTIAL* - Colle ct Date/Time: 03/06/2022 11:27 [facility] ID: [id number] [address] [place] [address], [address] LOINC: 62954-9 Test Value Unit Reference Range Code Code System Flag WBC 9.65 th/cmm L=5.00 H=10.00 6690-2 LOINC NEUT % 60.5 % L=40.0 H=80.0 LYMPH % 25.8 % L=10.0 H=50.0 MONO % 10.8 % L=2.0 H=12.0 19861-9 LOINC EOS % 1.7 % L=0.0 H=8.0 BASO % 0.7 % L=0.0 H=3.0 IG % 0.5 % L=0.0 H=1.1 2514-8 LOINC NRBC % 0.0 % L=0.0 H=0.0 80990-3 LOINC NEUT abs count 5.8 th/cmm L=1.6 H=8.4 751-8 LOINC LYMPH abs count 2.5 th/cmm L=1.5 H=4.0 731-0 LOINC MONO abs count 1.0 th/cmm L=0.2 H=1.0 742-7 LOINC EOS abs count 0.2 th/cmm L=0.0 H=0.5 711-2 LOINC BASO abs count 0.1 th/cmm L=0.0 H=0.2 704-7 LOINC IG abs count 0.1 th/cmm L=0.0 H=0.1 51123-4 LOINC NRBC abs count 0.0 mil/cmm L=0.0 H=0.0 69880-3 LOINC RBC 3.97 mil/cmm L=3.90 H=5.40 789-8 [...] 03/06/2022 11:27 [facility] ID: [id number] [address] [place], [place], [address] LOINC: 46955-9 Test Value Unit Reference Range Code Code [...] H=34 2028-9 LOINC ANION GAP 4.9 mmol/L 43372-0 LOINC CALCIUM SERUM 8.9 mg/dL L=8.2 H=10.2 89930-5 LOINC BILIRUBIN TOTAL 0.3 mg/dL L=0.0 H=1.3 1975-2 LOINC ALK. PHOS. 130 U/L L=46 H=116 6768-6 LOINC H SGOT (AST) 25 U/L L=15 H=37 1920-8 LOINC SGPT (ALT) 29 U/L L=12 H=78 1742-6 LOINC TOTAL PROTEIN 7.9 gm/dL L=6.0 H=8.0 2885-2 LOINC ALBUMIN 3.7 gm/dL L=3.4 H=5.0 1751-7 LOINC AGE 76 years eGFR (non-Afr.Amer.) 53 mL/min 00130-0 LOINC eGFR (Afr-Northern Irish) 64 mL/min 95193-2 LOINC Social History Type Status Start Date End Date Code Code Syst em Smoking History Never smoker (Never Smoked) 346835826 SNOMED CT Sex Female Assessment You had [...] NOS L LEG active SNOMED-CT GERD active 293125884 SNOMED-CT HYPOTHYROIDISM active 57870140 SNOME D-CT CHF active 54913557 SNOMED-CT Allergies and Adverse Reactions Allergy Substance Reaction Severity Start Date Concern Status Co de Code System MORPHINE Moderate Active 7052 RxNorm Plan of Treatment No Data Found Encounters Encounter Diagnosis Start Date Code Code Sys tem Neuralgia 03/06/2022 40609062 SNOMED-CT Personal Care Team Section Performer Name Performer Role Active Date Inactive Da te
--- OUTSIDE RECORDS SUMMARY | 2024-05-13 22:49 | XMS_ITS ---
Author Organization Unknown Address [address] [place] [address] [phone] Phone Care Team Providers Care Intern Retail Name Role Phone JACQUELINE Desouza Attending Unavailable CHIDI Cohen Primary Unavailable Social History Type Status Start Date End Date Code Code Syst em Smoking History Never smoker (Never Smoked) 947980757 SNOMED CT Sex Female Assessment You had [...] NOS L LEG active SNOMED-CT GERD active 316952094 SNOMED-CT HYPOTHYROIDISM active 67888257 SNOME D-CT CHF active 82373288 SNOMED-CT Allergies and Adverse Reactions Allergy Substance [...]
--- OUTSIDE RECORDS SUMMARY | 2024-05-13 22:49 | XMS_ITS ---
Author Organization Unknown Address [address] [place] [address] [phone] Phone Care Team Providers Care Director Of Advertising Sales Name Role Phone AVRIL Singh Attending Unavailable CHIDI EL Cohen Primary Unavailable Social History Type Status Start Date End Date Code Code Syst em Smoking History Never smoker (Never Smoked) 804223075 SNOMED CT Sex Female Assessment You had [...] NOS L LEG active SNOMED-CT GERD active 882983852 SNOMED-CT HYPOTHYROIDISM active 50640599 SNOME D-CT CHF active 09228944 SNOMED-CT Allergies and Adverse Reactions Allergy Substance Reaction Severity Start Date Concern Status Co de Code System MORPHINE Moderate Active 7052 RxNorm Plan of Treatment No Data Found Encounters Encounter Diagnosis Start Date Code Code Sys tem 06/12/2022 [id number] SNOMED-CT Personal Care Team Section Performer Name Performer Role Active Date Inactive Da te
--- OUTSIDE RECORDS SUMMARY | 2024-05-13 22:50 | XMS_ITS ---
Author Organization Unknown Address [address] [place] [address] [phone] Phone Care Team Providers Care Chamber Worker Name Role Phone YULISA CALDWELLABI Witt Attending Unavailable CHIDI EL Vicki Primary Unavailable Social History Type Status Start Date End Date Code Code Syst em Smoking History Never smoker (Never Smoked) 654161711 SNOMED CT Sex Female Assessment You had [...] NOS L LEG active SNOMED-CT GERD active 476200126 SNOMED-CT HYPOTHYROIDISM active 49461534 SNOME D-CT CHF active 04805686 SNOMED-CT Allergies and Adverse Reactions Allergy Substance Reaction Severity Start Date Concern Status Co de Code System MORPHINE Moderate Active 7052 RxNorm Plan of Treatment No Data Found Encounters Encounter Diagnosis Start Date Code Code Sys tem Obstructive sleep apnea syndrome 01/07/2023 98916308 SNOMED-CT Personal Care Team Section Performer Name Performer Role Active Date Inactive Da te
--- OUTSIDE RECORDS SUMMARY | 2024-05-13 22:50 | XMS_ITS ---
Author Organization Unknown Address [address] [place] [phone] Phone Care Team Providers Care Car Audio Installer Name Role Phone JACQUELINE Desouza Attending Unavailable CHIDI Cohen Primary Unavailable Results COMPREHENSIVE METABOLIC PANE L (CMP) - Collect Date/Time: 11/06/2022 15:22 [facility] ID: [id number] [address] [place], [place], [address] LOINC: 81269-1 Test Value Unit Reference Range Code Code [...] H=34 2028-9 LOINC ANION GAP 9.3 mmol/L 32071-6 LOINC CALCIUM SERUM 9.2 mg/dL L=8.2 H=10.2 86301-9 LOINC BILIRUBIN TOTAL 0.3 mg/dL L=0.0 H=1.3 1975-2 LOINC ALK. PHOS. 135 U/L L=46 H=116 6768-6 LOINC H SGOT (AST) 26 U/L L=15 H=37 1920-8 LOINC SGPT (ALT) 35 U/L L=12 H=78 1742-6 LOINC TOTAL PROTEIN 7.1 gm/dL L=6.0 H=8.0 2885-2 LOINC ALBUMIN 3.8 gm/dL L=3.4 H=5.0 1751-7 LOINC AGE 76 years eGFR (non-Afr.Amer.) 42 mL/min 17869-1 LOINC eGFR (Afr-Cypriot) 51 mL/min 44520-2 LOINC CBC W/ DIFFERENTIAL* - Colle ct Date/Time: 11/06/2022 15:22 [facility] ID: [id number] [address] [place], [place], [address] LOINC: 64165-0 Test Value Unit Reference Range Code Code System Flag WBC 15.74 th/cmm L=5.00 H=10.00 6690-2 LOINC H NEUT % 68.1 % L=40.0 H=80.0 LYMPH % 20.7 % L=10.0 H=50.0 MONO % 9.7 % L=2.0 H=12.0 43213-2 LOINC EOS % 0.4 % L=0.0 H=8.0 BASO % 0.3 % L=0.0 H=3.0 IG % 0.8 % L=0.0 H=1.1 2514-8 LOINC NRBC % 0.0 % L=0.0 H=0.0 30981-3 LOINC NEUT abs count 10.7 th/cmm L=1.6 H=8.4 751-8 LOINC H LYMPH abs count 3.3 th/cmm L=1.5 H=4.0 731-0 LOINC MONO abs count 1.5 th/cmm L=0.2 H=1.0 742-7 LOINC H EOS abs count 0.1 th/cmm L=0.0 H=0.5 711-2 LOINC BASO abs count 0.0 th/cmm L=0.0 H=0.2 704-7 LOINC IG abs count 0.1 th/cmm L=0.0 H=0.1 20683-8 LOINC NRBC abs count 0.0 mil/cmm L=0.0 H=0.0 78296-7 LOINC RBC 4.14 mil/cmm L=3.90 H=5.40 789-8 [...] PEPTI DE) - Collect Date/Time: 11/06/2022 15:22 [facility] ID: [id number] [address] [place] [address], [facility] LOINC: 25371-1 Test Value Unit Reference Range Code Code System Flag NT-proBNP 664.0 pg/mL L=0.0 H=125 56014-8 LOINC H XR CHEST 2V PA AND LATERAL - Completed: 11/06/2022 15:57 LOINC: [facility] RADIOLOGY [place], [place] [address] PACS SR. PAYROLL PROCESSOR REPORT Patient Name: TROY SILVA MRN: Sex: : Age: [id number] F 1945 76 Account: Accession: Admit: StayType: [id number] 11/06/2022 CLINIC Ordered: Order ID: Submitted: Ordering Provider: 11/06/2022 15:21 [id number] MOIZ RICKETTS Completed: Technologist: Resulted: 11/06/2022 15:57 [...] em Smoking History Never smoker (Never Smoked) 291608946 SNOMED CT Sex Female Assessment You had [...] NOS L LEG active SNOMED-CT GERD active 231849293 SNOMED-CT HYPOTHYROIDISM active 36276898 SNOME D-CT CHF active 55984628 SNOMED-CT Allergies and Adverse Reactions Allergy Substance Reaction Severity Start Date Concern Status Co de Code System MORPHINE Moderate Active 7052 RxNorm Plan of Treatment No Data Found Encounters Encounter Diagnosis Start Date Code Code Sys tem Hypertensive heart disease w ith congestive heart failure 11/06/2022 0580571 SNOMED-CT Personal Care Team Section Performer Name Performer Role Active Date Inactive Da te
--- OUTSIDE RECORDS SUMMARY | 2024-05-13 22:50 | XMS_ITS ---
Author Organization Unknown Address [address] [place] [phone] Phone Care Team Providers Care C D Reactor Operator Name Role Phone AVRIL Singh Attending Unavailable CHIDI EL Cohen Primary Unavailable Social History Type Status Start Date End Date Code Code Syst em Smoking History Never smoker (Never Smoked) 622596983 SNOMED CT Sex Female Assessment You had [...] NOS L LEG active SNOMED-CT GERD active 930810045 SNOMED-CT HYPOTHYROIDISM active 21301492 SNOME D-CT CHF active 34116268 SNOMED-CT Allergies and Adverse Reactions Allergy Substance Reaction Severity Start Date Concern Status Co de Code System MORPHINE Moderate Active 7052 RxNorm Plan of Treatment No Data Found Encounters Encounter Diagnosis Start Date Code Code Sys tem 07/10/2022 222153401705635 SNOMED-CT Personal Care Team Section Performer Name Performer Role Active Date Inactive Da te
--- OUTSIDE RECORDS SUMMARY | 2024-05-13 22:51 | XMS_ITS | Encounter Summary ---
Author Organization [facility] Address [address] [place] [address] Care Team Providers Care Monkey Trainer Name Role Phone Kenyon [facility] Primary Care Provider [phone] Reason for Referral * Consult (Routine/Next Available) - Authorization Not Required Specialty Diagnoses / Procedures Referred By Ana t Referred To Contact Dermatology Diagnoses Basal cell carcinoma of right forehead Procedures IN ADJT TIS TRNS/REARGMT F/C/C/M/N/A/G/H/F 10SQCM/< IN ADJT/REARGMT F/C/C/M/N/AX/G/H/F 10.1-30.0 SQ CM IN ADJNT TIS TRNSFR/REARGMT ANY AREA 30.1-60 SQ CM IN SPLIT AGRFT F/S/N/H/F/G/M/D GT 1ST 100 CM/</1 % IN SPLIT AGRFT F/S/N/H/F/G/M/D GT EA 100 CM/EA 1 % IN FTH/GF FR W/DIR CLSR F/C/C/M/N/AX/G/H/F 20SQCM/< IN FTH/GT FR W/DIR CLSR F/C/C/M/N/AX/G/H/F EA ADDL IN FRMJ DIR/TUBE PEDCL W/WOTR FH/CH/CH/M/N/AX/G/H/F IN DELAY FLAP/SECTIONING FLAP F/C/C/N/AX/G/H/F IN FOREHEAD FLAP W/PRESERVATION VASCULAR PEDICLE IN GRAFT COMPOSITE W/PRIMARY CLOSURE DONOR AREA IN MOHS MICROGRAPHIC H/N/H/F/G 1ST STAGE 5 BLOCKS [facility] [address] [place] [address] Jonelle Rain MD [address] [facility], [address] [place] [address] Referral ID Status Reason Start Date Expiration Date Visits Requested Visits Authorized [id number] Authorization Not Required Specialty Services Required 4 1 1 Question Answer Type of referral: MOHS Reason for Request: Mohs due to nodular basal cell carcinoma of the right lateral forehead. AUC: 8 Comments Risk factors: Pacemaker/ICD: None Anticoagulants: ASA81 Total joint replacements/valves: BILATERAL KNEES Allergies: Patient is allergic to anesthesia s/i-40 (propofol) [propofol] and morphine. Immunosuppression: None Reason for Visit * Reason Onset Date Comments Mohs Consult 03/07/2024 Encounter Details Date Type Department Care Team (Late st Contact Info) Description 03/07/2024 [facility] Only [facility] Dermatology [address] [facility], [place] [address] Darren Stubbs RN Basal cell carcinoma of right forehead (Primary Dx) Social History Tobacco Use Types [...] No 04/14/2018 documented as of this encounter Progress Notes * Darren Stubbs RN - 03/07/2024 1213 EDT 03/02/2024 SKIN OF FOREHEAD, RIGHT LATERAL, SHAVE BIOPSY: - Basal cell carcinoma, nodular type. - Basal cell carcinoma present at deep tissue edge. Patient's Mohs Appropriate Use Criteria (AUC) score (0-9) is: 8 Risk factors: Pacemaker/ICD: None Anticoagulants: ASA81 Total joint replacements/valves: BILATERAL KNEES Allergies: Patient is allergic to anesthesia s/i-40 (propofol) [propofol] and morphine. Immunosuppression: None Mohs referral sent to [facility] Dermatology (WP5) documented in this encounter Plan of Treatment Upcoming Encounters Date Type Department Care Team (Late st Contact Info) Description 05/27/2024 13:00 EDT Office Visit [facility] ENT- Main [address] [phone] Vicki Main MD [address] [place] [address] [address] [place] [address] 03/08/2025 11:00 EDT [facility] Dermatology [address] [facility], [place], [place] [address] Cynthia Salinas MD [address] [place] [address] [address] [place] [address] Scheduled Referrals Name Type Priority Associated Diagnoses Order Schedule AMB CONS/FOLLOW UP MOHS SURGERY Outpatient Referral Routine/Next Available Basal cell carcinoma of right forehead Expected: 04/07/2024 (Approximate), Expires: 03/07/2025 documented as of this encounter Visit Diagnoses Diagnosis Basal cell carcinoma of right forehead- Primary Basal cell carcinoma of skin of other and unspecified parts of face documented in this encounter Care Teams Monkey Trainer Relationship Specialty Start Date End Date [facility] [address] [place] [address] PCP - General 10/30/23 documented as of this encounter
--- OUTSIDE RECORDS SUMMARY | 2024-05-13 22:51 | XMS_ITS ---
Author Organization Unknown Address [address] [place] [phone] Phone Care Team Providers Care Train Gate Attendant Name Role Phone FRANCIS BOSS Registered Nurse Unavaildavid e ESTEFANY Cohen Attending Unavailable CHIDI Cohen Primary Unavailable UNLISTED PROVIDER - REQUESTED Xhandoff Un available Results TROPONIN HIGH SENSITIVITY* - Collect Date/Time: 01/19/2023 15:50 [facility] ID: [id number] - [id number] [address] [place] [address], [address] LOINC: 63162-8 Test Value Unit Reference Range Code Code System Flag TROPONIN HS 13.2 pg/mL L=0.0 H=60.4 Specimen seq. RANDOM LIPASE* NEW - Collect Date/T luke: 01/19/2023 15:50 [facility] ID: [id number] - [id number] [address] [place] [address], [id number] LOINC: 3040-3 Test Value Unit Reference Range Code Code System Flag LIPASE. 54 U/L L=16 H=77 COMPREHENSIVE METABOLIC PANE L (CMP) - Collect Date/Time: 01/19/2023 15:50 [facility] ID: [id number] [address] [place] [address], [address] LOINC: 08102-7 Test Value Unit Reference Range Code Code [...] H=34 2028-9 LOINC ANION GAP 5.6 mmol/L 12346-5 LOINC CALCIUM SERUM 9.6 mg/dL L=8.2 H=10.2 24735-0 LOINC BILIRUBIN TOTAL 0.4 mg/dL L=0.0 H=1.3 1975-2 LOINC ALK. PHOS. 118 U/L L=46 H=116 6768-6 LOINC H SGOT (AST) 38 U/L L=15 H=37 1920-8 LOINC H SGPT (ALT) 34 U/L L=12 H=78 1742-6 LOINC TOTAL PROTEIN 7.2 gm/dL L=6.0 H=8.0 2885-2 LOINC ALBUMIN 3.5 gm/dL L=3.4 H=5.0 1751-7 LOINC AGE 77 years eGFR (non-Afr.Amer.) 59 mL/min 08865-2 LOINC eGFR (Afr-Central African) 71 mL/min 82549-4 LOINC CBC W/ DIFFERENTIAL* - Colle ct Date/Time: 01/19/2023 15:50 [facility] ID: [id number] [address] [place], [place], [address] LOINC: 98105-3 Test Value Unit Reference Range Code Code System Flag WBC 9.97 th/cmm L=5.00 H=10.00 6690-2 LOINC NEUT % 59.2 % L=40.0 H=80.0 LYMPH % 29.4 % L=10.0 H=50.0 MONO % 9.3 % L=2.0 H=12.0 07072-3 LOINC EOS % 1.1 % L=0.0 H=8.0 BASO % 0.6 % L=0.0 H=3.0 IG % 0.4 % L=0.0 H=1.1 2514-8 LOINC NRBC % 0.0 % L=0.0 H=0.0 76156-1 LOINC NEUT abs count 5.9 th/cmm L=1.6 H=8.4 751-8 LOINC LYMPH abs count 2.9 th/cmm L=1.5 H=4.0 731-0 LOINC MONO abs count 0.9 th/cmm L=0.2 H=1.0 742-7 LOINC EOS abs count 0.1 th/cmm L=0.0 H=0.5 711-2 LOINC BASO abs count 0.1 th/cmm L=0.0 H=0.2 704-7 LOINC IG abs count 0.0 th/cmm L=0.0 H=0.1 49912-2 LOINC NRBC abs count 0.0 mil/cmm L=0.0 H=0.0 07938-4 LOINC RBC 3.69 mil/cmm L=3.90 H=5.40 789-8 LOINC L HEMOGLOBIN 12.7 gm/dL L=12.0 H=16.0 718-7 LOINC HEMATOCRIT 38 % L=37 H=47 4544-3 LOINC MCV 102 fL L=82 H=92 787-2 LOINC H MCH 34.4 pg L=27.0 H=31.0 785-6 LOINC H MCHC 33.7 % L=32.0 H=36.0 786-4 LOINC RDW-SD 46.4 fL L=39.0 H=49.0 788-0 LOINC PLATELET COUNT 210 th/cmm L=150 H=450 777-3 [facility] - Collect Date/Time: 01/19/2023 15:50 [facility] ID: [id number] [address] [place], [place], [id number] LOINC: 66495-8 Test Value Unit Reference Range Code Code System Flag COVID NEGATIVE Normal: Negative 38984-8 LOINC INFLUENZA A DNA NEGATIVE Normal: Negative 37760-6 LOINC INFLUENZA B DNA NEGATIVE Normal: Negative 08301-2 LOINC RSV DNA NEGATIVE Normal: Negative 27406-1 LOINC URINALYSIS WITH REFLEX CULT IF POSITIVE* - Collect Date/Time: 01/19/2023 15:35 [facility] ID: [id number] [address] [place], [place], [address] LOINC: 09888-4 Test Value Unit Reference Range Code Code System Flag COLLECTION MODE: VOID 95358-8 LOINC Color STRAW yellow 5778-6 LOINC Appearance CLEAR clear 5767-9 LOINC Glucose urine NEGATIVE negative mg/dl 82937-1 LOINC Bilirubin NEGATIVE negative 5770-3 LOINC Ketones NEGATIVE negative mg/dl 2514-8 LOINC Spec gravity <=1.005 1.003 - 1.030 5811-5 LOINC pH urine 7.0 5.0 - 7.0 2756-5 LOINC Protein NEGATIVE negative mg/dl 86328-3 LOINC Urobilinogen 0.2 <or= 1 EU/dl 64997-4 LOINC Nitrite. NEGATIVE negative 5802-4 LOINC Blood NEGATIVE negative 5794-3 LOINC Leukocytes. NEGATIVE negative MICROSCOPIC NOT INDICAT CT ABD PELVIS W IV CONTRAST ONLY - Completed: 01/19/2023 16:47 LOINC: [facility] RADIOLOGY [place], [place] [address] PACS DISTRIBUTION MANAGER REPORT Patient Name: TROY SILVA MRN: Sex: : Age: [id number] F 1945 77 Account: Accession: Admit: StayType: [id number] 01/19/2023 E/R Ordered: Order ID: Submitted: Ordering Provider: 01/19/2023 15:30 [id number] PATRICK FARRAR Completed: Technologist: Resulted: 01/19/2023 16:47 [...] 1V - Co mpleted: 01/19/2023 15:28 LOINC: [facility] RADIOLOG[facility] [place], [place] [address] PACS DISTRIBUTION MANAGER REPORT Patient Name: TROY SILVA MRN: Sex: : Age: [id number] F 1945 77 Account: Accession: Admit: StayType: [id number] 01/19/2023 E/R Ordered: Order ID: Submitted: Ordering Provider: 01/19/2023 15:21 [id number] PATRICK FARRAR Completed: Technologist: Resulted: 01/19/2023 15:28 [...] em Smoking History Never smoker (Never Smoked) 539999555 SNOMED CT Sex Female Vital Signs Vital Sign Value Unit Johnson Value Johnson Unit Date/Time Recent/Initial? Code Code System Body Mass Index 39.38 kg/m2 01/19/2023 15:08 Initial 80494 -5 LOINC Systolic Blood Pressure 176 mm[Hg] [...] Saturation 96 % 2022 17:48 Most Recent 88675 -5 LOINC O2 Saturation 97 % 2022 15:08 Initial 94159 -5 LOINC Pulse 84.0 /min 01/19/2023 17:48 Most Recent 8867- 4 LOINC Pulse 88.0 /min 01/19/2023 15:08 Initial 8867- 4 LOINC Respiration 16 /min 01/20/20 17:48 Most Recent 9279- 1 LOINC Respiration 20 /min 01/20/20 15:08 Initial 9279- 1 LOINC Temperature 36.7 Babs 98.1 F 01/20/20 15:08 Initial 8310- 5 LOINC Weight 82.55 kg 182.00 lbs 01/19/2023 15:08 Initial 51833 -7 LOINC Assessment You had the following [...] NOS L LEG active SNOMED-CT GERD active 432437991 SNOMED-CT HYPOTHYROIDISM active 43350582 SNOME D-CT CHF active 95865224 SNOMED-CT Allergies and Adverse Reactions Allergy Substance Reaction Severity Start Date Concern Status Co de Code System MORPHINE Moderate Active 7052 RxNorm Plan of Treatment No Data Found Encounters Encounter Diagnosis Start Date Code Code Sys tem Noninfectious gastroenteritis 01/19/2023 81242221 SNOMED-CT Personal Care Team Section Performer Name Performer Role Active Date Inactive Da te
--- OUTSIDE RECORDS SUMMARY | 2024-05-13 22:51 | XMS_ITS | Encounter Summary ---
Author Organization [facility] Address [address] [place] [address] Care Team Providers Care Insurance Follow Up Representative Name Role Phone [facility] Primary Care Provider [phone] Reason for Visit * Reason Comments Surgical Excision M1 BCC R lateral for ehead * Consult (Routine/Next Available) - Authorization Not Required Specialty Diagnoses / Procedures Referred By Contac t Referred To Contact Dermatology Diagnoses Basal cell carcinoma of right forehead Procedures [place] ADJT TIS TRNS/REARGMT F/C/C/M/N/A/G/H/F 10SQCM/< W[place] ADJT/REARGMT F/C/C/M/N/AX/G/H/F 10.1-30.0 SQ CM WV ADJNT TIS TRNSFR/REARGMT ANY AREA 30.1-60 SQ CM WV SPLIT AGRFT F/S/N/H/F/G/M/D GT 1ST 100 CM/</1 % WV SPLIT AGRFT F/S/N/H/F/G/M/D GT EA 100 CM/EA 1 % WV FTH/GF FR W/DIR CLSR F/C/C/M/N/AX/G/H/F 20SQCM/< WV FTH/GT FR W/DIR CLSR F/C/C/M/N/AX/G/H/F EA ADDL WV FRMJ DIR/TUBE PEDCL W/WOTR FH/CH/CH/M/N/AX/G/H/F WV DELAY FLAP/SECTIONING FLAP F/C/C/N/AX/G/H/F WV FOREHEAD FLAP W/PRESERVATION VASCULAR PEDICLE WV GRAFT COMPOSITE W/PRIMARY CLOSURE DONOR AREA WV MOHS MICROGRAPHIC H/N/H/F/G 1ST STAGE 5 BLOCKS [facility] Dermatology [address] [place] [id number] Jonelle Rain MD [address] [place] [id number] Referral ID Status Reason Start Date Expiration Date Visits Requested Visits Authorized [id number] Authorization Not Required Specialty Services Required 4 1 1 Encounter Details Date Type Department Care Team (Late st Contact Info) Description 04/06/2024 13:00 EDT Office Visit [facility] Dermatology 5th [address] [address] Jonelle Rain MD [address] [place] [phone] Basal cell carcinoma (BCC) of right forehead (Primary Dx) Social History [...] this encounter Patient Instructions * Patient Instructions* Karin Lomas MD - 04/06/2024 13:00 EDT WOUND CARE INSTRUCTIONS FOR SKIN SURGERY (SUTURED OR OPEN WOUND) BANDAGE: Leave the bandage in place for 24 hours. You may shower or bathe after 24 hours. Remove the bandage and replace it after the showering (see below). DISCOMFORT: Expect discomfort. Take acetaminophen (for example, TylenolTM) as directed. If this does not provide sufficient relief, take ibuprofen (AdvilTM), up to 600 mg every 8 hours). You may takeboth of these together or alternate them. We do not routinely prescribe narcotic pain medications. If pain is severe and not relieved by the above measures, please call the office. BLEEDING: Some blood seeping into the bandage is NORMAL. If the bleeding soaks through the dressing, remove the dressing, and apply firm, steady pressure with a moist clean wash cloth for fifteen minutes. If the bleeding stops, redress the wound. If not, call our office. ACTIVITY: No strenuous activity for the first 48 hours after surgery. Keep your head elevated. APPEARANCE: Swelling and bruising are normal. Some redness is normal, but the wound should not be red, hot and tender. If the wound rapidly swells up or becomes increasingly inflamed, warm, or drainspus, please call our office. WOUND CARE: Change the dressing daily and/or when it becomes wet. Wash hands with soap and water and clean the wound with soap and warm water. You may use 3% hydrogen peroxide and a cotton swab to loosen and remove the crusting from a wound with stitches. Apply a thin layer of sterile petroleum jelly over the wound. Cover with Telfa or similar non-stick dressing or bandage Tape in place with Hypafix or paper tape Mild tenderness, pinpoint bleeding and a thin mucous-like discharge are normal. Keep all sutured wounds covered daily for a full 7 days. Open wounds will need to be covered for much longer. If you have sutures that require removal, you will receive specific instructions regarding when andwhere to have them removed. If you have dissolving sutures they will fall apart and be gone in 10-14 days. OPEN WOUND HEALING (Wound without sutures): If your wound was left open to heal on its own, approximately one week after surgery a pink/red halo will form around the outside of the wound; this is newskin. The center of the wound will appear yellowish white and produce some drainage. The pink halo will slowly migrate toward the center of the wound until the wound is covered with new shiny pink skin. There will be a mucus-like drainage on the dressing and there will be no more drainage when the wound is completely healed. WHEN TO CONTACT YOUR PHYSICIAN: Contact you physician if your wound becomes increasingly sore, tender, red, or warm, or if the surgery site rapidly swells. Please call our office [phone] or if you have any questions or concerns. documented in this encounter Progress Notes * Karin Lomas MD - 04/06/2024 1300 EDT Images from the original note were not included. MOHS SURGERY POST-OP SUMMARY Liya Anders is a 78 y.o. female who underwent Mohs surgery today 04/06/2024. The following is a summary of the operative findings: Lesion 1 Basal cell carcinoma (BCC) Location right lateral forehead Size Preop (cm) 1.5 x 0.8 cm Size Postop (cm) 2.0 x 1.5 cm Stages 2 Depth of Excision subcutis Repair intermediate linear repair Ms. Anders was discharged from the operative suite in good condition. She was carefully instructed in postoperative wound care both verbally and in writing. All sutures used were absorbable, so the patient does not need to return for suture removal. The patient will follow up with Dr. Salinas and will return to see me as needed. Note: None MOHS EVALUATION NOTE Chief Complaint Patient presents with Surgical Excision M1 BCC R lateral forehead Subjective: Liya Anders is a 78 y.o. female who presents for evaluation and treatment recommendations for skin cancer. The patient was referred to us by Cynthia Salinas MD. Surgical Risk factors: Pacemaker/ICD: none Anticoagulants: aspirin 81 mg Total joint replacements/valves: total knee replacement (bilateral knees) (2016), aortic valve replacement 2018 Allergies: Patient is allergic to anesthesia s/i-40 (propofol) [propofol] and morphine. Immunosuppression: none Smoking status: reports that she quit smoking about 61 years ago. Her smoking use included cigarettes. She started smoking about 62 years ago. She has never used smokeless tobacco. For full Medical, Surgical, Family, and Social histories as well as Review of Systems, Medications and Allergies please see those sections of this encounter in the electronic chart which I have personally reviewed. Objective: The following data was reviewed: external note(s) from referring provider, photograph, and pathology report. Examination of the affected area revealed the following: [Evidence of Disease] The biopsy site is clinically suspicious for residual tumor upon physical examination today.. An approximately 1.5 x 0.8 cm pink pearly plaque located on the right lateral forehead. Pathology: Lab Results Component Value Date FINALDX 03/02/2024 A. SKIN OF FOREHEAD, RIGHT LATERAL, SHAVE BIOPSY: - Basal cell carcinoma, nodular type. - Basal cell carcinoma present at deep tissue edge. Assessment & Plan: 1) Basal cell carcinoma (BCC) of the right lateral forehead The diagnosis, etiology, prognosis and treatment options were reviewed. Due to the need for a high cure rate and optimum functional and aesthetic outcome, I feel that Mohssurgery is indicated. The risks of Mohs surgery and potential reconstructive surgery, including: bleeding, infection, scarring, recurrence, injury to functionally or cosmetically important nerve structures and an unsatisfactory cosmetic result were reviewed. The patient was given an opportunity to ask questions, and I believe that all of her questions were answered satisfactorily. Ms. Anders understands that following Mohs surgery an operative repair may be required and may involve substantial suturing. We have jointly planned to have me repair the wound at the day of surgery if needed. She understands that it typically takes 4 to 6 months for wounds to heal before a decision can be made about the final cosmetic result and that in some cases a revision may be necessary to optimize the outcome. I explained to Ms. Anders that in addition to the risk of recurrence from her skin cancer she has an increased risk of developing additional new skin cancers elsewhere. For that reason, follow up for ongoing skin surveillance examinations, after surgery, will be imperative. The patient has been scheduled to undergo surgery today. Note: None MOHS OPERATIVE REPORT Patient Name: Liya Anders Date of Service: April 06, 2024 Surgeon and Pathologist: Jonelle Rain MD Tool Polisher: Karin Lomas MD Case #: [id number] Mohs AUC Score: 7 (APPROPRIATE) Preoperative Diagnosis: Basal cell carcinoma (BCC) Preoperative Procedure: Mohs micrographic surgery Location of Lesion: right lateral forehead Preoperative Lesion Size: 1.5 x 0.8 cm Preoperative Procedure: Mohs microscopically-controlled fresh tissue excision Indications: The patient presents with a skin cancer complicated by the following clinical features: location critical for tissue conservation and poorly defined clinical borders. Because of the histologic and clinical nature of the lesion, as well as its location, the need to achieve the highest cure rate while providing maximum tissue preservation warranted tumor extirpation via microscopically-controlled excision using the Mohs fresh tissue technique. Alternate therapeutic options were discussed prior to surgery. After informed consent was obtained and appropriate instruction was provided,the patient underwent tumor extirpation by the Mohs fresh tissue technique as follows: PROCEDURE - INITIAL STAGE: Patient position: supine Anesthesia: 1% lidocaine with epinephrine 1:100,000 local infiltration Prep: Chlorhexidine No data found. The patient was brought to the operative suite. The lesion was identified and was prepped in a sterile fashion. The area was infiltrated with lidocaine/epinephrine to achieve complete anesthesia and to augment hemostasis. The Mohs procedure was then carried out by Dr. Lomas as follows: An initial b eveled excision was performed through the epidermis and dermis with a #15 scalpel blade. A hash wascreated in the specimen and within the adjacent epidermis for marking purposes. The Mohs specimen was then excised in a sharp manner, and carefully placed in proper orientation on the surgical tray. H emostasis of the operative wound was obtained with careful spot electrocoagulation. A sterile non-adherent dressing was applied to the operative wound. The Mohs tissue specimen was carefully transferred to the lab where the tissue was divided, and color inked for orientation. These specimens were mapped and then handed personally by the doctor to the test technician for frozen sectioning. The tissue was embedded so that the deep and surface margins layin the same plane, and sections were made through this plane. Once the slide preparation was complete Dr. Rain performed histologic evaluation and interpretation of all sections. A summary of the findings may be found below. Stage 1 findings: Wound depth subcutis Sections created 2 Number of sections containing tumor 1 Histologic findings INFILTRATIVE BASAL CELL CARCINOMA -- Irregularly shaped cords and strands of basaloid keratinocytes infiltrate the dermis with a spiky growth pattern. The cells have scant cytoplasm and round dark nuclei. Mitotic figures and apoptotic bodies are evident. The nuclei at the periphery of the islands have a palisaded arrangement. The islands are associated with a fibromyxoid stroma and there is cleft formation between some of the islands and stroma. Depth of invasion: superficial dermis. Perineural invasion: absent. Scar tissue: absent. ADDITIONAL STAGES: The operative site was reidentified and anesthesia was supplemented with further lidocaine/epinephrine as needed. Further beveled incisions of lateral and deep margins were performed with a number 15scalpel blade at all sites where tumor was mapped from the previous stage. Hashes were created in the specimen and within the adjacent epidermis for marking purposes as indicated. The specimens were excised in a sharp manner, and carefully placed in proper orientation on the surgical tray. Hemostasis of the operative wound was obtained with careful spot electrocoagulation. A sterile non-adherent dressing was applied to the operative wound. Stage 2 findings: Wound depth subcutis Sections created 1 Number of sections containing tumor 0 Histologic findings NORMAL SKIN: Sections consist of a portion of normal appearing skin, including epidermis, dermis, and subcutis. The epidermis and dermis are unremarkable. There is no evidence of malignancy at the surgical margins. With the patient clear of microscopic tumor, surgery was considered complete. The wound was repaired with an INTERMEDIATE LINEAR closure as detailed in the separate linear repair procedure note below. Postoperative Wound Size: 2.0 x 1.5 cm Final Diagnosis: Basal cell carcinoma (BCC) Final Procedure: Mohs micrographic surgery Blood Loss: Minimal Consultation with Dermatopathology: Not performed Biopsy: Not performed Operative Time: 15 minutes Complications: None Note: None The Mohs fellow (Dr. Lomas) performed the procedure. The attending physician was personally present and immediately available throughout. INTERMEDIATE REPAIR PATIENT INFORMATION: Liya Anders SURGEON: Jonelle Rain MD SAW HANDLE ASSEMBLER: Karin Lomas MD PREOPERATIVE DIAGNOSIS: Defect following microscopically controlled excision of basal cell carcinoma (BCC) PREOPERATIVE PROCEDURE: Intermediate Linear Closure LOCATION of WOUND: Right lateral forehead WOUND DIMENSIONS: 2.0 x 1.5 cm INDICATIONS: The patient presents with an operative wound following tumor removal. After careful consideration and discussion of all repair options, it was determined that, given the location and nature of the defect, an intermediate linear layered closure offered the best chance for preservation of normal anatomic and functional relationships. Alternate options were discussed and the patient was encouraged to ask questions, which, I believe, were answered appropriately. Informed consent was obtained in writing. After informed consent was obtained and appropriate instruction was provided, the patient underwent operative repair as follows. PROCEDURE: Patient position: supine Anesthesia: 1% lidocaine with epinephrine 1:100,000 local infiltration Prep: Chlorhexidine The Mohs operative defect was identified, and the area was infiltrated with lidocaine/epinephrine to achieve complete anesthesia and to augment hemostasis. The area was prepped in the usual sterile and was draped with sterile drapes. A linear closure was designed with care to place the operative repair within functional and cosmetic lines to minimize the postoperative distortion of normal tissues. The wound edges were prepared using a # 15 scalpel blade to precisely delineate the operative repair and were then undermined with combined blunt and, as needed, sharp dissection taking great care to avoid functionally important vessels and nerves. Undermining was carried out at the level of the subcutaneous fat Hemostasis of the operative wound was obtained with careful spot electrocoagulation,and ligature as indicated. The wound edges were then approximated using 5.0 Monocryl (poliglecaprone 25) buried interrupted sutures at the level of the subcutis and dermis. The epidermis was then approximated using 5.0 Fast absorbing plain gut. The final wound length was 4.9 cm. The wound edges were cleansed with peroxide and dressed with petrolatum, a non-adherent gauze pad and Hypafix?? tape. Verbal and written wound care instructions were given. The patient tolerated the procedure well and left the operating suite in excellent condition. FINAL DIAGNOSIS: Defect following microscopically controlled excision FINAL PROCEDURE: Intermediate linear closure BLOOD LOSS: minimal OPERATIVE TIME: 30 minutes COMPLICATIONS: None NOTE: None The Mohs fellow (Dr. Lomas) performed the procedure. The attending physician was personally present and immediately available throughout. Attestation Statement: I was present for the entire procedure. Jonelle Rain MD Dermatology documented in this encounter Plan of Treatment Upcoming Encounters Date Type Department Care Team (Late st Contact Info) Description 05/27/2024 13:00 EDT Office Visit [facility]- [address] [phone] Vicki Main MD [address] [facility] [address] [place] [phone] 03/08/2025 11:00 EDT Office Visit [facility] Dermatology [address] [facility], [place], [place] [phone] Cynthia Salinas MD [address] [place] [phone] documented as of this encounter Procedures Procedure Name Priority Date/Time Associated Diagnosis Comments PROCEDURE REPORTS - SCANNED 04/08/2024 8:24 EDT documented in this encounter Results * PROCEDURE REPORTS - SCANNED (04/08/2024 8:24 EDT) 04/08/2024 8:24 EDT Scan 2 Window Draper PROCEDURE/MINOR NANCY GICAL ORDERABLES documented in this encounter Visit Diagnoses Diagnosis Basal cell carcinoma (BCC) of right forehead- Primary documented in this encounter Care Teams Insurance Follow Up Representative Relationship Specialty Start Date End Date [facility] [address] [place] [address] PCP - General 10/30/23 documented as of this encounter
--- OUTSIDE RECORDS SUMMARY | 2024-05-13 22:51 | XMS_ITS | Continuity of Care Document ---
Author Organization [place] - [facility], [facility], [facility] Address [address] [place] [address] Care Team Providers Care Levi Maker Name Role Phone JACQUELINE ROCKWELL Plant Controls Specialist [facility] SUR[facility]ERY Gastroenterologi st KELLY STEVENSON Solar Sales Associate [facility] Orthopedist [phone] [facility] dicine ROSETTE PALOMINO Physical Therapist [phone] ALYSSA MONTEZ Sleep Medicine VIJI STEWART Plant Controls Specialist Assessment No assessment recorded. Plan of Treatment Reminders Order Date Submit Date Provider Last Modified By Organization Details Last Modified Time Details Appointments Acute 10 2023 10:52A M ROGER ARGUETA Not available Not available Not available Follow Up 30 2023 10:00A M SACHIN JAMES Not available Not available Not available Lab culture, wound - specimen is taken from right side of fore head next to eyebrow 2023 024 [email or web address] [facility] (Registration ), [address] [place] [address] , [place], [address], 05/13/2024 13:52:43 Referral None recorded. Procedures None recorded. Surgeries None recorded. Imaging None recorded. Medication Orders cephalexi n 500 mg capsule 2023 024 MACIEL [id number], [address] [place], [address], 05/13/2024 13:44:44 Patient TargetsNo targets recorded. Patient Instructions Encounter Date Encounter Id Patient Instructions Last Modified By Organization Details Last Modified Time 05/13/2024 [id number] 1. Wound culture obtained today will take 2 days to return. Once we have these results available we will communicate them to you and discuss further management. 2. In the meantime I have placed you on an antibiotic called cephalexin you will take 3 times a day for the next 5 days. 3. I do expect symptoms should begin to improve but it can take 24 to 48 hours of being on the medication before you see improvement. During that time you can even see a little bit of worsening. Any significant sudden worsening however is not expected and would indicate need to seek reevaluation. [email or web address] Not available 05/13/2024 13:45:12 Reason for Referral Solar Sales Associate Referral for N eoplasm of uncertain behavior of skin hx BCC nose, eval new telangiectasias on nose, + full skin exam pls Referring Physician: Qing Baird [facility] Medicine, Encounter Date: 11/16/2023 Interactive Developer Referral for Foot pain Referring Physician: Sachin Ramirez [facility] Medicine, Encounter Date: 12/09/2023 Physical Therapist Referral for Low back pain lower right back pain x 2-3 weeks, recommend stretching regimen. Also, c/o chronic left ankle weakness. 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 Active 2022 PERI DELEON LPN null, [facility] 3 10:52:49 [facility] hyperten maru 97670520 Active 2022 PERI DELEON LPN null, [facility] 3 10:48:19 Chronic diastoli c heart failure 853597824 Active 2022 PERI DELEON LPN null, [facility] 3 10:52:40 Arterios clerotic vascular disease 26414369 Active 2022 PERI DELEON LPN null, [facility] 3 10:52:30 Right flank pain 883763698 Active 2022 Alicja Jackkenishanavneet null, [facility] 4 12:10:01 Pain in right foot 7838021523 34028 Active 2022 Alicja kenishanavneet [facility], [facility] 4 12:09:49 Obesity 355584395 Active 2023 Alicja kenishanavneet [facility], [facility] 4 12:09:38 Depressi ve disorder 77059450 Active 2023 Alicja Valdez [facility], [facility] 4 12:09:25 Nontraum atic rotator cuff tear 083092769 Completed 202308/20/2023 EM BAUER MA null, [facility] 4 13:30:11 Nontraum atic rotator cuff tear 412300704 Active 2023 EM BAUER MA null, [facility] 4 13:30:11 Polyneur opathy 19595288 Active 2023 peripher al Alicja José Miguel null, [facility] 4 12:09:51 Thoracic outlet syndrome 004115936 Active 2023 Alicja José Miguel [facility], [facility] 4 12:09:55 History of malignan t neoplasm of skin 605655851 Active 2023 Alicja kenishanavneet [facility], [facility] 4 12:09:33 Obstruct dedra sleep apnea syndrome 30766681 Active 2023 [facility], [facility] 4 12:09:41 Dyspnea 037361883 Active 2023 [facility], [facility] 4 12:09:30 Bilatera l cramp of muscle of lower limbs 4764431501 2152850 Active 2023 [facility], [facility] 4 12:09:23 Osteoart hritis 898614365 Active 2023 [facility], [facility] 4 12:09:43 Endometr ial carcinom a 301610173 Completed 202308/20/2023 EM BAUER MA null, [facility] 4 13:39:54 Diastoli c heart failure 617928091 Active 2023 [facility], [facility] 4 12:09:27 Basal cell carcinom a of skin 646324060 Active 2023 [facility] 4 12:09:20 Neoplasm of uncertai n behavior of skin 50884049 Active [address], [place], [address], [facility] 4 10:23:42 Fatigue 56814606 Active [address], [place], [address], [facility] 4 11:38:20 Chronic cough 76711286 Active [address], [place], [address], [facility] 4 11:38:20 Aortic valve disorder 7465168 Active 2023 TOÑA HUBER MA null, [facility] 4 14:31:00 Subclini antonia hyperthy roidism 855406752 Active 2023 Deneen Fuentes RN null, [facility] 4 10:27:29 Foot pain 49786981 Active 2023 SACHINSHAHZAD RAMIREZ, RECRUIT INSTRUCTOR [address], [facility] [address], [facility] 4 13:30:03 Low back pain 413459440 Active 2023 JACQUELIN QUISPE [address], [facility] [address], [facility] 4 11:54:46 Ankle pain 426737267 Active 2023 JACQUELIN QUISPE [address], [facility] [address], [facility] 4 11:55:12 Mammogra phy abnormal 333688918 Active 2023 JACQUELIN QUISPE [address], [facility] [address], [facility] 4 11:57:09 Infectio n of skin 475463868 Active [address], [facility] [address], [facility] 4 14:11:49 Notes:Some problems listed i n Document: #[id number] could not be added to this patient's chart. Please review this document and add these problems to the patient's chart manually as needed. Problem Notes None recorded. Procedures Surgical History Date Name Laterality Status Provider Name and Address Organization Details Recorded Time 04/06/20 24 excision of melanoma completed EM BAUER [facility] 04/12/2024 14:49:16 06/27/20 endoscopic calcaneoplasty for Ora deformity completed EM BAUER [facility] 08/20/2023 13:51:40 12/29/19 20 mohs surgery completed EM BAUER [facility] 08/20/2023 14:03:48 02/23/20 18 Coronary artery bypass/reop completed EM BAUER [facility] 08/20/2023 13:52:47 10/02/19 17 cataract surgery completed EM BAUER [facility] 08/20/2023 14:02:07 09/17/19 17 Cataract Surgery completed EM BAUER [facility] 08/20/2023 14:02:47 11/16/19 13 total knee replacement completed EM BAUER [facility] 08/20/2023 13:45:27 03/15/20 12 total knee replacement completed EM BAUER [facility] 08/20/2023 13:44:56 open reduction of fracture of tibia and fibula completed EM BAUER [facility] 08/20/2023 13:47:29 procedure on elbow completed EM BAUER [facility] 08/20/2023 13:47:55 Appendectomy completed EM BAUER [facility] 08/20/2023 13:51:52 hysterectomy completed EM BAUER [facility] 08/20/2023 13:52:06 Imaging Results None recorded. Procedure Notes None recorded. Medical Equipment None Reported. Allergies Allergen ID Allergen Name Allergen Category Reaction Reaction Severity Criticality Documentation Date Start Date Code Code System Note Provider Name and Address Organization Details Recorded Time 06712 morphine medicatio n hallucina tions Not available Not available 08/20/2023 7052 RxNorm JODI VIRGEN, [facility] 12:21:43 Medications Name Sig Start Date [...] Not Available Not Available Not Avai lable sertralin e 100 mg tablet TAKE 1 TABLET BY MOUTH EVERY DAY active Not Available Not Available No t Available omeprazol e 40 mg capsule,d elayed release TAKE 1 CAPSULE BY MOUTH EVERY DAY 30 MINUTES BEFORE BREAKFAS T 01/04 completed Not Available Not Available Not Available amoxicill in 500 mg tablet Take 4 tabs by mouth(a total of 2 grams) one hour before dental visit 11/15 completed Not Available Not Available Not Available levothyro xine 100 mcg tablet TAKE 1 TABLET BY MOUTH EVERY [...] completed Not Available Not Available Not Available cephalexi n 500 mg capsule Take 1 capsule every 8 hours by oral route for 5 days. 2023 active Not Available Not Available Not Avai lable simvastat in 20 mg tablet TAKE 1 TABLET BY MOUTH EVERY DAY active Not Available Not Available No t Available zolpidem 5 mg tablet TAKE 1 TABLET BY MOUTH NIGHT OF SLEEP STUDY IF NEEDED active Not Available Not Available No t Available furosemid e 20 mg tablet TAKE ONE TABLET BY MOUTH EVERY DAY active Not Available Not Available No t Available gabapenti n 100 mg capsule TAKE ONE CAPSULE BY MOUTH THREE TIMES A DAY active Not Available Not Available No t Available diltiazem 30 mg tablet TAKE ONE TABLET BY MOUTH EVERY EVENING active Not Available Not Available No t Available ketoconaz ole 2 % topical cream APPLY TOPICALL Y TO THE AFFECTED AREA DAILY FOR RASH UNDER THE FOLDS active Not Available Not Available No t Available fluticaso ne propionat e 50 mcg/actua tion nasal spray,stephan pension Crandall 1 spray every day by intranas al route for 14 days. 2023 active Not Available Not Available Not Avai lable Tums 200 mg (as calcium carbonate 500 [...] Arterial blood by Pulse oximetry Heart rate Respiratory rate Systolic blood pressure Diastolic blood pressure Provider Name and Address Organization Details Last Updated DateTime 4 144.14 cm 34.9 kg/m2 37886.7 8 g 97.7 [degF] 96 % 96 % 79 /min 16 /min 144 mm[Hg] 65 mm[Hg] Candelaria Hood [facility] 4 13:27:22 Social History Question Answer Notes LastModified by Organizat ion Details LastModified Time Tobacco Smoking Status Former Smoker 18 when she quit smoking JODI CUNECA, [facility] 08/18/2023 10:42:09 Do You Have An Advance Directive? No Paperwork Given Information not available 12/09/2023 When Did You Quit Smoking? 16+yearssince lastciniles [email or web address] Information not available 08/18/2023 Date Of Most Recent HSA 12/09/2023 Information not available 12/09/2023 Would You Say That, In General, Your Health Is Fair [email or web address] Information not available 08/18/2023 How Often Does Anyone, Including Family, Physically Hurt You? Never [email or web address] Information not available 08/18/2023 How Often Does Anyone, Including Family, Insult Or Talk Down To You? Never [email or web address] Information not available 08/18/2023 How Often Does Anyone, Including Family, Threaten You With Harm? Never [email or web address] Information not available 08/18/2023 How Often Does [...] Have Money To Get More. Never True Information not available 08/18/2023 How Hard Is It For You To Pay For The Very Basics Like Food, Housing, Medical Care, And Heating? Would You Say It Is: Not Hard At All [email or web address] Information not available 12/09/2023 In The Past 12 Months, Has Lack Of Reliable Transportation Kept You From Medical Appointments, Meetings, Work Or From Getting Things Needed For Daily Living? No Information not available 08/18/2023 What Is Your Housing Situation Today? I Have Housing. [email or web address] Information not available 08/18/2023 How Often In The Past Year Have You Used Marijuana (including Smoking, Vaping, Dabbing, Or Edibles)? Never [email or web address] Information not available 08/18/2023 How Often In The Past Year Have You Used Prescription Medications That Were Not Prescribed To You? Never [email or web address] Information not available 08/18/2023 How Often In The Past Year Have You Taken Your Own Prescription Medication More Than The Way It Was Prescribed Or For Different Reasons Than Its Intended Purpose? Never [email or web address] Information not available 08/18/2023 How Often In The Past Year Have You Used Other Drugs (for Example, Heroin, Cocaine, Meth, Salvia, Inhalants)? Never [email or web address] Information not available 08/18/2023 What Matters Most To You? to Be Safe And Healthy, See And Walk Information not available 12/09/2023 During The Past Four Weeks, Was Someone Available To Help You If You Needed And Wanted Help? (For Example, If You Hope Very Nervous, Lonely, Or Blue; Got Sick [...] Safety Concerns In Your Home (see Attached [facility] Pamphlet)? No Information not available 12/09/2023 How [...] available 12/09/2023 Date Of Most Recent SBINS 05/13/2024 Information not available 05/13/2024 Do You Have A Medical Power Of Research Tech? No Information not available 12/09/2023 What Was The Date Of Your Most Recent Tobacco Screening? 05/13/2024 Information not available 05/13/2024 At What Age Did You Start Smoking Tobacco? 16 [email or web address] Information not available 08/18/2023 Has Tobacco Cessation Counseling Been Provided? No Information not available 12/09/2023 Do You Or Have You Ever Used Any Other Forms Of Tobacco Or Nicotine? No Information not available 12/09/2023 Sex: Female Functional Status None recorded. Mental Status None recorded. Family History Relationship Description Onset Age of this Age Resolved Age Notes LastModified by Organization Details LastModified Time Mother Diastolic dysfunction [email or web address] Not available 07/28 13:53:44 Mother Congestive heart failure 68 [email or web address] Not available 2023 13:55:35 Brother Myocardial infarction [email or web address] Not available 08/20 13:54:51 Brother Family history of malignant neoplasm [email or web address] Not available 2023 14:47:47 Sister Family history of malignant neoplasm [email or web address] Not available 2023 14:47:47 Medical History No medical history recorded. Gynecological HistoryNo gynecological history recorded. Obstetrics History GPAL:G 0 P 0 0 0 0 Immunizations Vaccine Type Date Status Provider Name and Address Organization Details Recorded Time Td (adult), 2 Lf tetanus toxoid, preservative free, adsorbed 08/18/2023 completed JACQUELIN QUISPE [address], [place], [address], [facility] 08/18/2023 22:14:59 Influenza, high-dose, trivalent, PF 04/12/[address], [place], [address], [facility] 04/12/2024 21:01:41 SARS-COV-2 (COVID-19) vaccine, UNSPECIFIED 05/08/2023 completed JODI CUENCA, [facility] 08/20/2023 12:15:28 SARS-COV-2 (COVID-19) vaccine, UNSPECIFIED 08/15/2020 completed JODI CUENCA, [facility] 08/20/2023 12:15:34 SARS-COV-2 (COVID-19) vaccine, UNSPECIFIED 09/14/2020 completed JODI CUENCA, [facility] 08/20/2023 12:15:49 SARS-COV-2 (COVID-19) vaccine, UNSPECIFIED 05/30/2021 completed JODI CUENCA, [facility] 08/20/2023 12:15:55 SARS-COV-2 (COVID-19) vaccine, UNSPECIFIED 05/10/2022 JODI Booker, [facility] 08/20/2023 12:16:04 Pneumococcal conjugate PCV 13 01/04/2015 completed JODI CUENCA, [facility] 08/20/2023 12:16:40 influenza, unspecified formulation 03/29/2020 completed JODI CUENCA, [facility] 08/20/2023 12:17:06 influenza, unspecified formulation 04/24/2021 completed JODI CUENCA, [facility] 08/20/2023 12:17:14 influenza, unspecified formulation 05/10/2022 JODI Booker, [facility] 08/20/2023 12:17:20 influenza, unspecified formulation 05/08/2023 completed JODI CUENCA, [facility] 08/20/2023 12:17:30 pneumococcal polysaccharide PPV23 03/02/2012 JODI Booker, [facility] 08/20/2023 12:18:00 pneumococcal polysaccharide PPV23 03/04/2019 completed JODI CUENCA, [facility] 08/20/2023 12:18:09 Tdap 03/02/2012 completed JODI CUENCA, [facility] 08/20/2023 12:18:41 zoster, unspecified formulation 09/01/2018 completed JODI CUENCA, [facility] 08/20/2023 12:18:59 zoster, unspecified formulation 03/04/2019 JODI Booker, [facility] 08/20/2023 12:19:04 zoster, unspecified formulation 04/09/2012 completed JODI CUENCA, [facility] 08/20/2023 12:19:11 Past Encounters Encounter ID Performer Location Encounter Start Date Encounter Closed Date Diagnosis/Indication Diagnosis SNOMED-CT Code Diagnosis ICD10 Code [id number] ROGER ARGUETA PA-C [address] [place] [address] 05/13/2024 10:54:11 05/13/2024 13:50:24 Infection of skin 947142630 L08.9 Health Concerns Section Related Observation LastModified by Organization Detai ls LastModified Time None Recorded Concern Status LastModified by Organization Details LastModified Time None Recorded Payers Encounter Date Sequence Insurance Name Policy Number Policy Kearns Covered Member ID Kearns Member ID Guarantor Name 05/13/2024 1 [id number] - [place]PO) [id number] Liya Francisco Chago [id number] Liya A Chago 05/13/2024 2 [place] [employer] Liya A Chago [id number] Liya A Chago Notes Date Note Type Note Provider Name and Address Organization Details Recorded Time 05/13/2024 text/html HPI Notes: Jess sahni is a 78-year-old female who presents with concern for infection on the right side of her forehead. She had a basal cell carcinoma removed by Dr. Salinas at [facility] dermatology on 04/07. Had dissolvable sutures. Saw primary care on 04/12 look to be healing well. In the last week she has noticed this area has now become red, has not been painful. No history of MRSA. Has not had fevers. Has been applying vitamin E. ROGER ARGUETA PA-C [address], [place], [address], [place] - [facility]. 05/13/2024 14:11:58 OBGyn Episode No OBEpisode recorded.
--- OUTSIDE RECORDS SUMMARY | 2024-05-13 22:51 | XMS_ITS ---
Author Organization Unknown Address [address] [place] [phone] Phone Care Team Providers Care Turret Punch Press Operator Name Role Phone JACQUELINE Desouza Attending Unavailable CHIDI Cohen Primary Unavailable Social History Type Status Start Date End Date Code Code Syst em Smoking History Never smoker (Never Smoked) 808064211 SNOMED CT Sex Female Assessment You had [...] NOS L LEG active SNOMED-CT GERD active 881106793 SNOMED-CT HYPOTHYROIDISM active 53716983 SNOME D-CT CHF active 44559952 SNOMED-CT Allergies and Adverse Reactions Allergy Substance Reaction Severity Start Date Concern Status Co de Code System MORPHINE Moderate Active 7052 RxNorm Plan of Treatment No Data Found Encounters Encounter Diagnosis Start Date Code Code Sys tem Hypertensive heart disease w ith congestive heart failure 11/05/2023 2588312 SNOMED-CT Personal Care Team Section Performer Name Performer Role Active Date Inactive Da te
--- OUTSIDE RECORDS SUMMARY | 2024-05-13 22:51 | XMS_ITS | Encounter Summary ---
Author Organization [facility] Address [address] [place] [address] Care Team Providers Care Rn Internal Medicine Name Role Phone Bianca Prescott [facility] Primary Care Provider [phone] Reason for Visit * Reason Onset Date Comments Appointment Related 04/14/2024 Encounter Details Date Type Department Care Team (Late st Contact Info) Description 04/14/2024 Telephone [facility] Dermatology [address] [facility], [place], [place] [address] Cynthia Salinas MD [address] [place] [address] [address] [place] [phone] Appointment Related Social History Tobacco Use Types Packs/Day Years [...] encounter Miscellaneous Notes * Telephone Encounter - Ced Espinoza - 04/15/2024 1517 EDT Left detailed message for patient. * Telephone Encounter - Ced Espinoza - 04/14/2024 1424 EDT Patient calling to see about whether they need anything additional scheduled with Dr. Salinas s/p MOHS. Office Visit with Jonelle Rain MD (04/06/2024) documented in this encounter Plan of Treatment Upcoming Encounters Date Type Department Care Team (Late st Contact Info) Description 05/27/2024 13:00 EDT Office Visit [facility] ENT- Main [address] [address] Vicki Main MD [address] [facility] [address] [place] [phone] 03/08/2025 11:00 EDT Office Visit [facility] Dermatology [address] [facility], [place] [address] Cynthia Salinas MD [address] [facility] [facility] [address] [place] [address] documented as of this encounter Visit Diagnoses Not on filedocumented in this encounter Care Teams Rn Internal Medicine Relationship Specialty Start Date End Date [place] [facility] [address] [place] [address] PCP - General 10/30/23 documented as of this encounter
--- OUTSIDE RECORDS SUMMARY | 2024-05-13 22:51 | XMS_ITS | Clinical Summary ---
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) 02/22/2018 Encounters Date Type Department Care Team Description 04/14/2024 Telephone [facility] Dermatology [address] [facility] [address], [place] [address] Cynthia Salinas MD Appointment Related 04/06/2024 13:00 EDT Office Visit [facility] Dermatology 5th [address] [address] Jonelle Rain MD Basal cell carcinoma (BCC) of right forehead (Primary Dx) 03/07/2024 Orders Only [facility] Dermatology [address] [place] [address] Darren Stubbs RN Basal cell carcinoma of right forehead (Primary Dx) 03/02/2024 13:40 EDT Office Visit [facility] Dermatology [address] [facility] [address], [place] [address] Cynthia Salinas MD History of basal cell [...] Info) Description 05/27/2024 13:00 EDT Office Visit [facility] ENT- [address] [place] [address], [place] [id number] Vicki Main MD [address] [facility] [place] [id number] 03/08/2025 11:00 EDT Office Visit [facility] Dermatology [address] [facility] [address], [place], [place] [address] Cynthia Salinas MD [address] [facility] [place] [facility] [address] [place] [address] Health Maintenance Due Date Last Done Comments Hepatitis C Screen 1945 RSV Immunization ( o r 60+ Years) (1 - 1-dose 60+ series) 2006 Advance Directive Review 03/03/2023 COVID-19 Vaccine (2023-25 season) 2024 Fall Risk Screening 03/02/2025 03/02/2024 Procedures Procedure Name Priority Date/Time Associated Diagnosis Comments PROCEDURE REPORTS - SCANNED 04/08/2024 8:24 EDT DERMATOLOGY SURGICAL PATHOLOGY Routine 03/02/2024 13:58 EDT Neoplasm of uncertain behavior of skin from Last 3 Months Results * PROCEDURE REPORTS - SCANNED (04/08/2024 8:24 EDT) 04/08/2024 8:24 EDT Scan 2 Navigating Officer PROCEDURE/MINOR NANCY GICAL ORDERABLES * DERMATOLOGY SURGICAL PATHOLOGY (03/02/2024 13:58 EDT) Note to Patient The following pathology results have been interpreted by your pathologist and may be available to you before your health provider has had the opportunity to review them. Please allow time for your provider to receive these results and explore management options, if applicable. 03/04/2024 9:16 [facility] Final Diagnosis A. SKIN OF FOREHEAD, RIGHT LATERAL, SHAVE BIOPSY: - Basal cell carcinoma, nodular type. - Basal cell carcinoma present at deep tissue edge. 03/04/2024 9:16 [facility] Attestation By the signature below, the attending physician certifies that they have 1) personally conducted a gross and/or microscopic examination of the described specimen(s), and/or personally interpreted the results of laboratory testing of the described specimen(s), and 2) personally rendered or confirmed the above diagnosis. 03/04/2024 9:16 [facility] at 0916 Microscopic Description Irregularly shaped islands of atypical basal cells infiltrate the dermis. The basal cells have scant cytoplasm and round dark nuclei. Mitotic figures and apoptotic bodies are evident. The nuclei at the periphery of the islands have a palisaded arrangement. The islands are associated with a fibromyxoid stroma and there is cleft formation between some of the islands and stroma. 03/04/2024 9:16 [facility] Clinical History Saxman telangiectatic and hemorrhagic crusted low plaque; suspect BCC; clinical diagnosis code: D48.5 03/04/2024 9:16 [facility] Gross Description A. Received in formalin labelled with proper patient identification (initials P, E) and right lateral forehead is a shave biopsy of white skin (0.6 x 0.4 x 0.1 cm). The skin surface displays an irregular dark brown crusted papule (0.4 x 0.1 cm). The margin is inked blue and the specimen is submitted intact in A1. Jen Mayo 03/03/2024 11:04 03/04/2024 9:16 [facility] Performing Lab [facility] 03/04/2024 9:16 [facility] Scanned Images 03/04/2024 9:16 [facility] Tissue SPECIMEN FROM SKIN / Unknown Collection, Other / Unknown 03/02/2024 13:58 EDT 03/02/2024 13:58 EDT Cynthia Salinas MD PATHOLOGY ORDERAB LES [facility] [address] [place] [address] from Last 3 Months Advance Directives For more information, please contact: [phone] Documents on File Type Date Recorded 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 Not Discusse d Care Teams Accounts Receivable Manager Relationship Specialty Start Date End Date [facility] [address] [facility] [place] [address] PCP - General 10/30/23
--- OUTSIDE RECORDS SUMMARY | 2024-05-13 22:51 | XMS_ITS | Encounter Summary ---
Author Organization [facility] Address [address] [place] [address] Care Team Providers Care Jigman Name Role Phone Kit Burch MD Primary Care Provider [facility] Primary Care Provider [phone] Encounter Details Date Type Department Care Team (Late st Contact Info) Description 03/06/2022 Lab Requisition [facility] Pathology & Laboratory Medicine - [address] [id number] Outr Resulting Lab, Provider Social History Tobacco [...] Info) Description 05/27/2024 13:00 EDT Office Visit [facility] ENT- [address] [id number] Vicki Main MD [address] [place] [address] [address] [place] [address] 03/08/2025 11:00 EDT Office Visit [facility] Dermatology [address] [facility], [place], [place] [phone] Cynthia Salinas MD [address] [place] [address] [address] [place] [address] documented as of this encounter Procedures Procedure Name Priority Date/Time Associated Diagnosis Comments VITAMIN B12 Routine 03/06/2022 11:27 EDT documented in this encounter Results * (ABNORMAL) VITAMIN B12 (03/06/2022 11:27 EDT) Vitamin B12 1,790(H) 211 - 911 pg/mL 03/06/2022 23:06 EDT [facility] Blood VENOUS BLOOD / Unknown 03/06/2022 11:27 EDT 03/06/2022 21:26 EDT Provider Outr Resulting Lab CHEMISTRY & BLOOD GAS ORDERABLES [facility] [address] [place] [address] documented in this encounter Visit Diagnoses Not on filedocumented in this encounter Care Teams Jigman Relationship Specialty Start Date End Date Kit Burch MD [address] [place] [address] [address] [place] [phone] PCP - General 01/15/18 10/29/23 [facility] [address] [place] [address] PCP - General 10/30/23 documented as of this encounter
--- OUTSIDE RECORDS SUMMARY | 2024-05-13 22:51 | XMS_ITS | Data Portability ---
Author Organization [place] - [facility] [place] [address] Care Team Providers Care Cell Manager Name Role Phone JACQUELINE ROCKWELL Technical Specialist [facility] Gastroenterologi st KELLY STEVENSON Commercial Food Instructor [facility] Orthopedist [facility] Family Nm dicchanning ROSETTE MARIN Physical Therapist ALYSSA MONTEZ Sleep Medicine VIJI STEWART Technical Specialist Assessment Encounter Date Assessment Date Assessment LastModified by Organization Details LastModified Time 11/16/2023 11/16/2023 The total time devoted to today's encounter, including both the zgvh-sd-vqvm time with the patient and/or family/caregiver and xcr-veim-kp-face time I personally spent is 42 minutes. [email or web address] Not available 11/16/2023 11:42:38 12/09/2023 12/09/2023 Patient [...] screenings consistent with USPSTF and ACIP guidelines [email or web address] Not available 12/09/2023 13:40:14 01/05/2024 01/05/2024 The [...] patient is scheduled for an ultrasound today. [email or web address] Not available 01/05/2024 11:57:45 04/12/2024 04/12/2024 The total time devoted to today's encounter, including both the scfo-wv-iudb time with the patient and/or family/caregiver and qta-ysqk-fi-face time I personally spent is 25 minutes in visit, 5 minutes prep, 5 minutes charting; total 35 minutes. [email or web address] Not available 04/12/2024 21:07:16 Plan of Treatment Reminders Order Date Submit Date Provider Last Modified By Organization Details Last Modified Time Details Appointments Acute 10 2023 10:52A M ROGER ARGUETA Not available Not available Not available Follow Up 30 2023 10:00A M SACHIN JAMES Not available Not available Not available Lab culture, sputum 2023 024 [email or web address] [facility] (Registration ), [address] [place] [address] [place], [address], 02/24/2024 10:46:11 CMP, serum or plasma - Patient coming there today for draw 2023 024 [facility] (Registration ), [address] [place] [address] [place], [address], 11/17/2023 00:06:28 CBC w/ auto diff - Patient coming there today for draw 2023 024 [facility] (Registration ), [address] [place] [address] [place], [address], 11/16/2023 23:35:22 TSH, serum, reflex free T4 - Patient coming there today for draw 2023 024 [email or web address] [facility] (Registration ), [address] [place] [address] [place], [address], 11/23/2023 07:04:19 fecal occult blood, immunoass ay, stool 2023 024 [email or web address] [facility] (Registration ), [address] [place] [address] [place], [address], 01/25/2024 12:40:36 noninvasi ve colorecta l cancer DNA + occult blood screening , QL, stool 2023 024 [place] [facility] (Cologuard Orders Only), [address], [address], [place], [address], 12/28/2023 13:52:20 culture, wound - specimen is taken from right side of fore head next to eyebrow 2023 024 [email or web address] [facility] (Registration ), [address] [place] [address] [facility], [address], 05/13/2024 13:52:43 Referral dermatolo gist referral - hx BCC nose, eval new telangiec tasias on nose, + full skin exam pls 2023 024 [facility], Medical Office [address], [address], [place], [address], 03/22/2024 04:03:29 podiatris t referral 2023 024 [email or web address] [facility], [address] [place] [address] [place], [address], 05/09/2024 12:06:52 physical therapist referral - lower right back pain x 2-3 weeks, recommend stretchin g regimen. Also, c/o chronic left ankle weakness. Please assess both concerns 2023 024 MACIEL Marin PT, [address] [place], [address], 01/24/2024 16:28:42 Procedures None recorded. Surgeries None recorded. Imaging XR, chest, 2 view - eval for pneumonia : STAT reading (persiste nt cough/pur ulent sputum that hasn't responded to Abx) 2023 024 [email or web address] [facility] (Radiology), [address] [place] [address] [place], [address], 11/17/2023 06:58:37 MAMMO, screening , digital, bilateral 2023 024 [email or web address] [facility] (Radiology), [address] [place] [address] [place], [address], 01/22/2024 14:44:17 DEXA - unable to locate any previous scan, pt does not recall every having a scan 2023 024 [email or web address] [facility] (Radiology), [address] [place] [address] [place], [address], 01/22/2024 14:43:07 Medication Orders gabapenti n 100 mg capsule 2023 024 [employer] [facility], [address], [place], [address], 04/12/2024 15:08:22 cephalexi n 500 mg capsule 2023 024 [employer], [address] [facility], [place], [address], 05/13/2024 13:44:44 Patient TargetsNo targets recorded. Patient Instructions Encounter Date Encounter Id Patient Instructions Last Modified By Organization Details Last Modified Time 11/16/2023 [id number] will cx schedule d lab appt as drawing them today. She will keep f/u with Kristie 12/08. [email or web address] Not available 11/16/2023 11:41:47 12/09/2023 [id number] Discussed and explained advance directives such as standard forms to the {{patient caregiver patient and caregiver}}. Face to face discussion lasted for a duration of ___ minutes. Not available 12/09/2023 13:40:14 01/05/2024 [id number] - [facility] for the left breast today [...] therapy appointments [email or web address] Not available 01/05/2024 11:52:15 04/12/2024 [id number] Dear Liya hurt, Thank you for visiting us on April 12, 2024. We appreciate your commitment to managing your health and are here to support you in your journey towards improvement. Here are the el instructions and recommendations from today's consultation: - Continue to follow up with Dr. Salinas at [facility] in [place] regarding your recent basal cell carcinoma removal. Call to make an appointment as advised in your discharge instructions. -Call [facility] for f/u Dr Salinas - Attend your scheduled sleep study on Thursday to assess your sleep patterns. - Start taking Neurontin (Gabapentin) for your neuropathy, prescribed at 100 mg three times a day. This medication may also help with your leg cramps. - Ensure you are taking your potassium supplements as prescribed along with your other medications: low-dose aspirin, diltiazem, Flonase, formoterol, and Lasix. Please feel free to reach out if you have any further questions or concerns. We look forward to seeing you again and assisting you with your healthcare needs. Best regards, Kristie [email or web address] Not available 04/12/2024 15:14:35 05/13/2024 [id number] 1. Wound culture obtained today will take [...] Not available 05/13/2024 13:45:12 Reason for Referral Commercial Food Instructor Referral for N eoplasm of uncertain behavior of skin hx BCC nose, eval new telangiectasias on nose, + full skin exam pls Referring Physician: Qing Baird [facility], Encounter Date: 11/16/2023 Rubber Compounder Supervisor Referral for Foot pain Referring Physician: Sachin Limon [facility], Encounter Date: 12/09/2023 Physical Therapist Referral for Low back pain lower right back pain x 2-3 weeks, recommend stretching regimen. Also, c/o chronic left ankle weakness. Please assess both concerns Referring Physician: Sachin Limon [facility], Encounter Date: 01/05/2024 Results Created Date Observation Date Name Description Value Unit Range Abnormal Flag Note LastModifiedBy Organization Detail LastModifiedTime 11/03/19 24 11/03/2023 hemog lobin A1C, finge rstic k hemoglobin A1C 4.9 % <5.7 Not Available [address], [address], 11/03/2023 11:34:37 11/03/19 24 11/03/2023 influ gerardo virus A + B + SARS- CoV-2 (COVI D19) Ag panel , rapid IA, upper respi rator y speci men Influenza A negati ve Not Available [facility] [address] [place], [address], 11/03/2023 10:47:09 11/03/19 24 11/03/2023 influ gerardo virus A + B + SARS- CoV-2 (COVI D19) Ag panel , rapid IA, upper respi rator y speci men Influenza B negati ve Not Available [facility] [address] [place], [address], 11/03/2023 10:47:09 11/03/19 24 11/03/2023 influ gerardo virus A + B + SARS- CoV-2 (COVI D19) Ag panel , rapid IA, upper respi rator y speci men SARS-COV-2 negati ve Not Available [facility] [address] [place], [address], 11/03/2023 10:47:09 11/16/19 24 11/16/2023 COMPL ETE BLOOD COUNT W/DIF F WBC 8.33 10_3/ uL 4.4-10 .8 normal Not Available [address] [place], [address] 11/16/2023 23:35:22 11/16/19 24 11/16/2023 COMPL ETE BLOOD COUNT W/DIF F RBC 3.56 10_6/ uL 3.93-5 .22 low Not Available [address] [place], [address] 11/16/2023 23:35:22 11/16/19 24 11/16/2023 COMPL ETE BLOOD COUNT W/DIF F HGB 11.8 g/dL 11.2-1 5.7 normal Not Available [address] [place], [address] 11/16/2023 23:35:22 11/16/19 24 11/16/2023 COMPL ETE BLOOD COUNT W/DIF F HCT 36.1 % 36.0-4 6.0 normal Not Available [address] [place], [address] 11/16/2023 23:35:22 11/16/19 24 11/16/2023 COMPL ETE BLOOD COUNT W/DIF F MCV 101 fL 80-95 high Not Available Melia [address] [place], [address] 11/16/2023 23:35:22 11/16/19 24 11/16/2023 COMPL ETE BLOOD COUNT W/DIF F MCH 33.1 pg 27.0-3 3.0 high Not Available [address] [place], [address] 11/16/2023 23:35:22 11/16/19 24 11/16/2023 COMPL ETE BLOOD COUNT W/DIF F MCHC 32.7 % 32.0-3 6.0 normal Not Available [address] [place], [address] 11/16/2023 23:35:22 11/16/19 24 11/16/2023 COMPL ETE BLOOD COUNT W/DIF F RDW 12.8 % 11.7-1 4.6 normal Not Available [address] [place], [address] 11/16/2023 23:35:22 11/16/19 24 11/16/2023 COMPL ETE BLOOD COUNT W/DIF F platelet count 185 10_3/ uL 130-40 0 normal Not Available [address] [place], [address] 11/16/2023 23:35:22 11/16/19 24 11/16/2023 COMPL ETE BLOOD COUNT W/DIF F MPV 10.1 fL 8.0-11 .0 normal Not Available [address] [place], [address] 11/16/2023 23:35:22 11/16/19 24 11/16/2023 COMPL ETE BLOOD COUNT W/DIF F neutrophils % 48.9 Not Available [address] [place], [address] 11/16/2023 23:35:22 11/16/19 24 11/16/2023 COMPL ETE BLOOD COUNT W/DIF F lymphocytes % 36.4 Not Available [address] [place], [address] 11/16/2023 23:35:22 11/16/19 24 11/16/2023 COMPL ETE BLOOD COUNT W/DIF F monocytes % 11.3 Not Available [address] [place], [address] 11/16/2023 23:35:22 11/16/19 24 11/16/2023 COMPL ETE BLOOD COUNT W/DIF F eosinophils % 2.6 Not Available [address] [place], [address] 11/16/2023 23:35:22 11/16/19 24 11/16/2023 COMPL ETE BLOOD COUNT W/DIF F basophils % 0.6 Not Available [address] [place], [address] 11/16/2023 23:35:22 11/16/19 24 11/16/2023 COMPL ETE BLOOD COUNT W/DIF F immature grans % 0.2 Not Available [address] [place], [address] 11/16/2023 23:35:22 11/16/19 24 11/16/2023 COMPL ETE BLOOD COUNT W/DIF F nucleated RBC 0.0 % 0.0-0. 3 normal Not Available [address] [place], [address] 11/16/2023 23:35:22 11/16/19 24 11/16/2023 COMPL ETE BLOOD COUNT W/DIF F absolute neutrophil count 4.07 10_3/ uL 1.2-6. 7 normal Not Available [address] [place], [address] 11/16/2023 23:35:22 11/16/19 24 11/16/2023 COMPL ETE BLOOD COUNT W/DIF F absolute lymphocyte count 3.03 10_3/ uL 1.2-3. 4 normal Not Available [address] [place], [address] 11/16/2023 23:35:22 11/16/19 24 11/16/2023 COMPL ETE BLOOD COUNT W/DIF F absolute monocyte count 0.94 10_3/ uL 0.1-0. 8 high Not Available [address] [place], [address] 11/16/2023 23:35:22 11/16/19 24 11/16/2023 COMPL ETE BLOOD COUNT W/DIF F absolute eosinophil count 0.22 10_3/ uL 0.0-0. 7 normal Not Available [address] [place], [address] 11/16/2023 23:35:22 11/16/19 24 11/16/2023 COMPL ETE BLOOD COUNT W/DIF F absolute basophil count 0.05 10_3/ uL 0.0-0. 2 normal Not Available [address] [place], [address] 11/16/2023 23:35:22 11/16/19 24 11/16/2023 COMPR EHENS THELMA METAB OLIC PANEL calcium 9.4 mg/dL 8.5-10 .1 normal Not Available [address] [place], [address] 11/17/2023 00:06:28 11/16/19 24 11/16/2023 COMPR EHENS THELMA METAB OLIC PANEL glucose 103 mg/dL 74-106 normal Not Available Melia [address] [place], [address] 11/17/2023 00:06:28 11/16/19 24 11/16/2023 COMPR EHENS THELMA METAB OLIC PANEL BUN 28 mg/dL 7-18 high Not Available [address] [place], [address] 11/17/2023 00:06:28 11/16/19 24 11/16/2023 COMPR EHENS THELMA METAB OLIC PANEL creatinine 1.2 mg/dL 0.55-1 .02 high Not Available [address] [place], [address] 11/17/2023 00:06:28 11/16/19 24 11/16/2023 COMPR EHENS THELMA METAB OLIC PANEL estimated GFR 46.91 mL/min /1.73m 2 The eGFR is calcu lated from a serum creat inine using the CKD-E PI 2020 equat ion. Other varia bles requi red for the equat ion are gende r and age; this equat ion does not inclu de a race coeff icien t. This equat ion has simil ar overa ll perfo rmanc e to previ ous equat ions excep t value s may diffe r, in parti cular , in patie nts with highe r value s of eGFR and young er-ag ed adult s. Not Available [address] [place], [address] 11/17/2023 00:06:28 11/16/19 24 11/16/2023 COMPR EHENS THELMA METAB OLIC PANEL total protein 7.3 g/dL 6.4-8. 2 normal Not Available [address] [place], [address] 11/17/2023 00:06:28 11/16/19 24 11/16/2023 COMPR EHENS THELMA METAB OLIC PANEL albumin 3.4 g/dL 3.4-5. 0 normal Not Available [address] [place], [address] 11/17/2023 00:06:28 11/16/19 24 11/16/2023 COMPR EHENS THELMA METAB OLIC PANEL bilirubin, total 0.4 mg/dL 0.2-1. 0 normal Not Available [address] [place], [address] 11/17/2023 00:06:28 11/16/19 24 11/16/2023 COMPR EHENS THELMA METAB OLIC PANEL alk phos 123 U/L 46-116 high Not Available [address] [place], [address] 11/17/2023 00:06:28 11/16/19 24 11/16/2023 COMPR EHENS THELMA METAB OLIC PANEL sodium 148 mmol/ L 136-14 5 high Not Available [address] [place], [address] 11/17/2023 00:06:28 11/16/19 24 11/16/2023 COMPR EHENS THELMA METAB OLIC PANEL potassium 4.2 mmol/ L 3.5-5. 1 normal Not Available [address] [place], [address] 11/17/2023 00:06:28 11/16/19 24 11/16/2023 COMPR EHENS THELMA METAB OLIC PANEL chloride 108 mmol/ L 98-107 high Not Available [address] [place], [address] 11/17/2023 00:06:28 11/16/19 24 11/16/2023 COMPR EHENS THELMA METAB OLIC PANEL CO2 29.3 mmol/ L 21.0-3 2.0 normal Not Available [address] [place], [address] 11/17/2023 00:06:28 11/16/19 24 11/16/2023 COMPR EHENS THELMA METAB OLIC PANEL anion gap 10.7 mmol/ L 3-11 normal Not Available [address] [place], [address] 11/17/2023 00:06:28 11/16/19 24 11/16/2023 COMPR EHENS THELMA METAB OLIC PANEL AST 31 U/L 15-37 normal Not Available Melia [address] [place], [address] 11/17/2023 00:06:28 11/16/19 24 11/16/2023 COMPR EHENS THELMA METAB OLIC PANEL ALT 38 U/L 14-59 normal Not Available Melia [address] [place], [address] 11/17/2023 00:06:28 11/16/19 24 11/16/2023 TSH (W/RE F FT4) TSH (w/ref FT4) 0.14 uIU/m L 0.36-3 .74 low Not Available [address] [place], [address] 11/17/2023 00:06:28 11/16/19 24 11/16/2023 TSH (W/RE F FT4) TSH (w/ref FT4) 0.14 uIU/m L 0.36-3 .74 low Not Available [address] [place], [address] 11/17/2023 00:22:31 11/16/19 24 11/16/2023 FREE T4 free T4 1.08 NG/dL 0.76-1 .46 normal Not Available [address], [place], [address] 11/17/2023 00:22:31 12/24/19 24 12/24/2023 COLOG UARD cologuard result reportable Sample Could Not Be Proces sed n/a Addit ion of stabi lizat ion buffe r to the speci men could not be verif ied. The patie nt will be conta cted to initi ate a new sampl e colle ction . Not Available [facility] (Cologuard Orders Only) [address], [place], [address], 12/28/2023 13:52:20 02/21/20 24 02/21/2024 COLOG UARD cologuard result reportable Negati ve negati ve normal NEGAT THELMA TEST RESUL T. A negat thelma Colog uard resul t indic ates a low likel ihood that a color ectal cance r (CRC) or advan anastasiya adeno ma (nicolás omato us polyp s with more advan anastasiya pre-m align ant featu res) is prese nt. The chanc e that a perso n with a negat thelma Colog uard test has a color ectal cance r is less than 1 in 1500 (nega tive predi ctive value >99.9 %) or has an advan anastasiya adeno ma is less than 5.3% (nega tive predi ctive value 94.7% ). These data are based on a prosp ectiv e cross -sect ional study of ,00 0 indiv idual s at [facility] risk for color ectal cance r who were scree marylou with both Colog uard and colon oscop y. (Casper pennington T. et al, N Engl J Med 2014; 370(1 4):12 86-12 97) The dolly l value (refe rence range ) for this assay is negat thelma. COLOG UARD RE-SC REENI NG RECOM MENDA TION: Perio dic color ectal cance r scree lucho is an impor tant part of preve ntive healt hcare for asymp tomat ic indiv idual s at [facility] risk for color ectal cance r. Follo wing a negat thelma Colog uard resul t, the Ameri can Cance r Socie ty and U.S. Multi -Soci ety Task Force scree lucho guide lines recom mend a Colog uard re-sc calli kwan inter olivia of 3 years . Refer ences : Ameri can Cance r Socie ty Guide line for Color ectal Cance r Scree lucho: https ://gabriella w.can cer.o rg/ca ncer/ colon -rect al-ca ncer/ detec tion- diagn osis- stagi ng/ac s-rec ommen datio ns.ht ml.; Wilbur GUALLPA, Popeye GARCIA, Aline LI, Color ectal Cance r Scree lucho: Recom menda tions for Physi cians and Patie nts from the U.S. Multi -Soci ety Task Force on Color ectal Cance r Scree lucho , Sanchez escobar y 2017; 112:1 016-1 030. TEST DESCR IPTIO N: [place] site algor ithmi c anca sis of stool DNA-b iocharbel kers with hemog lobin immun oassa y. Quant itati ve value s of indiv idual bioma rkers are not repor table and are not assoc iated with indiv idual bioma rker resul t refer ence range s. Colog uard is inten ded for color ectal cance r scree lucho of adult s of eithe r sex, 45 years or older , who are at psychiatric for color ectal cance r (CRC) . Colog uard has been appro momo for use by the U.S. FDA. The perfo rmanc e of Colog uard was estab lishe d in a cross secti onal study of psychiatric adult s aged 50-84 . Colog uard perfo rmanc e in patie nts ages 45 to 49 years was estim ated by sub-g roup anca sis of near- age group s. Colon oscop ies perfo rmed for a posit thelma resul t may find as the most clini andres signi fican t lesio n: color ectal cance r [4.0% ], advan anastasiya adeno ma (incl uding sessi le marcelo giselle polyp s great er than or equal to 1cm diame ter) [20%] or non- advan anastasiya adeno ma [31%] ; or no color ectal neopl basia [45%] . These estim ates are deriv ed from a prosp ectiv e cross -sect ional scree lucho study of 0 indiv idual s at [place] risk for color ectal cance r who were scree marylou with both Colog uard and colon oscop y. (Casper Magallanes et al, N Engl J Med 2014; 370(1 4):12 86-12 97.) Colog uard may produ ce a false negat thelma or false posit thelma resul t (no color ectal cance r or preca ncero us polyp prese nt at colon oscop y follo w up). A negat thelma Colog uard test resul t does not guara ntee the absen ce of CRC or advan anastasiya adeno ma (pre- cance r). The curre nt Colog uard scree lucho inter olivia is every 3 years . (Amer ican Cance r Socie ty and U.S. Multi -Soci ety Task Force ). Colog uard perfo rmanc e data in a 0 patie nt pivot al study using colon oscop y as the refer ence metho d can be acces sed at the follo wing locat ion: www.e xactl abs.c om/re corbin . Addit ional descr iptio n of the Colog uard test proce ss, warni ngs and preca ution s can be found at www.c kyleeogu dylon.c om. Not Available [facility] (Cologuard Orders Only) [address], [place], [address], 03/02/2024 01:39:38 11/16/19 24 11/16/2023 XR, chest , 2 view Patien t Name: Liya Anders Unit #: [id number] Loc: DI Orderi ng Provid er: Qing Baird Accoun t #: [id number] Status : REG CLI Primar y [...] Dictat ed By: Nicholas Medrano M.D. [id number] 133 Transc ribed By: Nicholas Medrano 133 This is privil eged, confid ential inform ation intend ed only for the provid er named. Any use or distri bution by any person other than this provid er is strict ly prohib ited. If you receiv e this report in error, please notify us immedi ately at [phone] and return the origin al report to us at the addres s above. Thank- you. [facility] [address] [place], [address] 11/17/2023 17:01:56 12/17/19 24 12/17/2023 DEXA Patikenya t Name: Liya Anders Unit #: [id number] Loc: DI Orderi ng Provid er: Reddy t,Abig flavio Accoun t #: [id number] Status : REG CLI Primar [...] enia of the hip. Ordere d By: Provos t,Abig ail CC: ------ ------ ------ ------ ------ ------ [...] please notify us immedi luz marinaly at and return the origin al report to us at the addres s above. Thank- you. [email or web address] [facility] [address] [place], [address] 01/22/2024 14:43:06 01/01/20 24 01/01/2024 MAMMO , scree lucho, digit al, bilat eral Patikenya t Name: Liya Anders Unit #: [id number] Loc: DI Orderi ng Provid er: Reddy Lee Accoun t #: [id number] Status : REG CLI Primar [...] error, please notify us immedi ately at [phone] and return the origin al report to us at the addres s above. Thank- you. [facility] [address], [place], [address] 01/22/2024 14:44:16 01/05/20 24 01/05/2024 MAMMO , jamaal ypeez, unila terzhen Weathers t Name: Liya Anders Unit #: [id number] Loc: DI Orderi ng Provid er: Reddy Lee Accoun t #: [id number] Status : REG CLI Primar [...] examin ations . FINDIN GS: Mammog ely/ Brock hankins s: Masses /Archi tectur al Distor [...] result s. Ordere d By: Reddy Lee flavio CC: ------ ------ ------ ------ ------ ------ ------ ------ ------ ------ ------ ------ - Dictat ed By: Nicholas Medrano M.D. 1455 145 Transc ribed By: Nicholas Medrano 1454 This is privil eged, confid ential inform ation intend ed only for the provid er named. Any use or distri bution by any person other than this provid er is strict ly prohib ited. If you receiv e this report in error, please notify us immedi cathy at [phone] and return the origin al report to us at the addres s above. Thank- you. [email or web address] [facility] [address], [place], [address] 02/02/2024 15:43:58 01/05/20 24 01/05/2024 US, morales french terzhen , limit ed Sarahy caro Name: Liya Anders Unit #: [id number] Loc: DI Orderi ng Provid er: Reddy Lee flavio Accoun t #: [id number] Status : REG CLI Primar y Care Provid er: Reddy caroReddy flavio Date of Exam: 06/19 Sex: F Admiss [...] Aided Diagno sis follow ed by Brock novak and left breast ultras ound. COMPAR ROSA: [...] findin gs were discus sed with the patikenya t on the date of the examin [...] report s averag e 6 to 10%. Sarahy t will receiv e a letter notify [...] please notify us immedi luz marinaly at and return the origin al report to us at the addres s above. Thank- you. [email or web address] [facility] [address], [place], [address] 02/02/2024 15:45:20 03/03/20 24 03/03/2024 XR, foot Pat[place]ya t Name: Liya Anders Unit #: [id number] Loc: DI Orderi ng Provid er: Faye German DPM Accoun t #: [id number] Status : REG CLI Primar y Care Provid er: Reddy Lee Date of Exam: 03/19 Sex: F Admiss ion Date: : 1945 Age: 78 Exam(s ) XR FOOT LT COMPLE TE XR FOOT RT COMPLE TE EXAM: XR FOOT RT COMPLE TE CLINIC AL HISTOR Y: Right foot pain, M79.67 1. TECHNI QUE: 2D digita l imagin g was perfor med. Three views of both feet. COMPAR ROSA: CR XR FOOT LT COMPLE TE from 2023 FINDIN GS: BONES: No acute fractu re is presen t. No bony destru ctive lesion is seen. Promin ent enthes ophyte s at the Achill es insert ion on the calcan eus and adjace nt soft tissue thicke lucho. JOINTS : No disloc ation presen t. Bilate ral flatte lucho of the planta r arch. Degene rative change s greate st at the tarsal metata rsal joints SOFT TISSUE : Vascul ar calcif icatio ns. IMPRES MARU: Pes planus and promin ent calcan eal enthes ophyte s. DATA REPOSI TORY: RADIAT ION DOSE DELIVE RED: Ordere d By: Faye German DPM CC: ------ ------ ------ ------ ------ ------ ------ ------ ------ ------ ------ ------ - Dictat ed By: Betzaida Gibbons 1504 1504 Transc ribed By: Perez Galvin 1504 This is privil eged, confid ential inform ation intend ed only for the provid er named. Any use or distri bution by any person other than this provid er is strict ly prohib ited. If you receiv e this report in error, please notify us immedi ately at [phone] and return the origin al report to us at the addres s above. Thank- you. [email or web address] [facility] [address] [place], [address] 03/04/2024 11:40:37 03/03/20 24 03/03/2024 XR, foot Patien t Name: Liya Anders Unit #: [id number] Loc: DI Redd ng Provid er: Faye German DPM Accoun t #: [id number] Status : REG CLI Primar y Care Provid er: Reddy Lee ail Date of Exam: 03/19 Sex: F Admiss ion Date: : 1945 Age: 78 Exam(s ) XR FOOT LT COMPLE TE XR FOOT RT COMPLE TE EXAM: XR FOOT RT COMPLE TE CLINIC AL HISTOR Y: Right foot pain, M79.67 1. TECHNI QUE: 2D digita l imagin g was perfor med. Three views of both feet. COMPAR ROSA: CR XR FOOT LT COMPLE TE from 2023 FINDIN GS: BONES: No acute fractu re is presen t. No bony destru ctive lesion is seen. Promin ent enthes ophyte s at the Achill es insert ion on the calcan eus and adjace nt soft tissue thicke lucho. JOINTS : No disloc ation presen t. Bilate ral flatte lucho of the planta r arch. Degene rative change s greate st at the tarsal metata rsal joints SOFT TISSUE : Vascul ar calcif icatio ns. IMPRES MARU: Pes planus and promin ent calcan eal enthes ophyte s. DATA REPOSI TORY: RADIAT ION DOSE DELIVE RED: Ordere d By: Faye German DPM CC: ------ ------ ------ ------ ------ ------ ------ ------ ------ ------ ------ ------ - Dictat ed By: Betzaida Gibbons 1504 1504 Transc ribed By: Perez Galvin 1504 This is privil eged, confid ential inform ation intend ed only for the provid er named. Any use or distri bution by any person other than this provid er is strict ly prohib ited. If you receiv e this report in error, please notify us immedi luz marinaly at and return the origin al report to us at the addres s above. Thank- you. [email or web address] [facility] [address] [place], [address] 03/04/2024 11:40:52 Result Notes Documentation Provider Name and Address Organization Details Recorded Time Xr, Chest, 2 View : Patient Name: Liya Anders Unit #: [id number] Loc: DI Ordering Provider: Qing Baird Status: REG CLI Primary Care Provider: Sachin Limon Date of Exam: Sex: F Admission Date: 11/16/23 : 1945 Age: 77 Exam(s) XR CHEST 2V PA LATERAL EXAM: XR CHEST 2V PA LATERAL CLINICAL HISTORY: CHRONIC COUGH,r05.3,? PNEUMONIA, PURULENT SPUTUM TECHNIQUE: 2D digital imaging was performed of the chest. Images were obtained. PA and lateral views were obtained. COMPARISON: No exams were available for comparison FINDINGS: MEDIASTINUM: Normal. HEART: Normal. There is an aortic valve replacement. PULMONARY VASCULATURE: Normal. LUNGS: The lungs appear hyperinflated suggesting underlying COPD. No focal consolidating infiltrates are seen. PLEURAL SPACE: No pleural effusion or pneumothorax. BONE:Within normal limits for the patient's age. Sternal wires are in place. OTHER FINDINGS:Normal. IMPRESSION: No focal infiltrates. DATA REPOSITORY: RADIATION DOSE DELIVERED: Ordered By: Qing Baird CC: Dictated By: Nicholas Medrano M.D. 11/16/23 1332 11/16/23 133 Transcribed By: Nicholas Medrano 11/16/231331 This is privileged, confidential information intended only for the provider named. Any use or distribution by any person other than this provider is strictly prohibited. If you receive this report in error, please notify us immediately at [phone] and return the original report to us at the address above. Thank-you. Deneen Fuentes RN [facility], [facility] 11/17/2023 17:01:56 Dexa : Patient Name: Liya Anders Unit #: [id number] Loc: DI Ordering Provider: Sachin Limon 5 Status: REG [facility] Primary Care Provider: Sachin Limon Date of Exam: Sex: F Admission Date: 12/17/23 : 1945 Age: 78 Exam(s) XR DEXA BONE DENSITY W/WO DAVID EXAM: XR DEXA BONE DENSITY W/WO DAVID CLINICAL HISTORY: Z78.0 Asymptomoatic meonpausal state TECHNIQUE: [employer] Horizon C densitometer analysis of left hip and lumbar spine . Lateral survey image of the thoracic and lumbar spine. COMPARISON: No exams were available for comparison FINDINGS: Lateral view of the thoracic and lumbar spine shows no evidence of compression fractures. Bone mineral density measurements of the lumbar spine correspond to a total T-score of 0.2, in the normal range. There are prominent degenerative changes with endplate osteophytes which could falsely elevate the bone mineral density measurements. Bone mineral density measurements of the left hip correspond to a total T-score of -1.5. The femoral neck T-score is -1.7, in the osteopenic range.. Theleft forearm bone mineral density measurements are not performed due to history of fracture. IMPRESSION: Normal bone mineral density of the spine. Osteopenia of the hip. Ordered By: Sachin Limon CC: Dictated By: Natalia Galvin M.D. 12/17/23 1730 12/17/231729 Transcribed By: Natalia Galvin 12/17/231729 This is privileged, confidential information intended only for the provider named. Any use or distribution by any person other than this provider is strictly prohibited. If you receive this report in error, please notify us immediately at [phone] and return the original report to us at the address above. Thank-you. MALIA FREGOSO [facility] 01/22/2024 14:43:06 Mammo, Screening, Digital, Bilateral : Patient Name: Liya Anders Unit #: [id number] Loc: Ordering Provider: Sachin Limon 9 Status: REG CLI Primary Care Provider: Sachin Limon Date of Exam: 02/16 Sex: F Admission Date: 01/01/24 : 1945 Age: 78 Exam(s) MG MAMMO SCREENING EXAM: MG MAMMO SCREENING CLINICAL HISTORY: SCREENING MAMMO FOR BREAST CANCER Z12.31 TECHNIQUE: Bilateral full field digital CC and MLO mammographic images were obtained with 3D tomosynthesis and utilizing computer aided detection (CAD). COMPARISON: Available for comparison. FINDINGS: Masses/Architectural Distortion: There is a new 6 mm nodule in the retroareolar region of the left breast. No areas of architectural distortion are present. Microcalcifications: No suspicious pleomorphic-type are seen. Skin Thickening/Nipple Retraction: None. IMPRESSION: 1. New 6 mm nodule in the retroareolar region of the left breast. 2. Spot compression views are requested for further evaluation. Limited left breast ultrasound is recommended also. BI-RADS Category 0 - Assessment Incomplete: Need additional imaging evaluation Breast Density - Category B - Scattered areas of fibroglandular density Breast density category C or D implies that the patient has dense breast tissue. Dense breast tissue is very common and is not abnormal but dense breast tissue can make it harder to find cancer on a mammogram. Also, dense breast tissue may increase their breast cancer risk. This information about the result of the mammogram report was provided to the patient to raise their awareness. Use this report when you speak with the patient about their risks for breast cancer, which includes their family history. At that time, you may recommend for more screening tests (Ultrasound or MRI) as they might be useful based on their risk. A negative radiographic report should not delay biopsy if a dominant or clinically suspicious mass is present. Up to ten percent of cancers are not identified on mammography. A negative report may reinforce clinical impression. Adenosis and dense breasts may obscure an underlying neoplasm. False positive reports average 6 to 10%. Patient will receive a letter notifying them of these results. Ordered By: Sachin Limon CC: Dictated By: Nicholas Medrano M.D. 01/01/24 1516 01/01/24 151 Transcribed By: Nicholas Medrano 01/01/24 151 This is privileged, confidential information intended only for the provider named. Any use or distribution by any person other than this provider is strictly prohibited. If you receive this report in error, please notify us immediately at [phone] and return the original report to us at the address above. Thank-you. MALIA FREGOSO [facility] 01/22/2024 14:44:16 Mammo, Screening, Unilateral : Patient Name: Liya Anders Unit #: [id number] Loc: DI Ordering Provider: Sachin Limon 1 Status: REG CLI Primary Care Provider: Sachin Limon Date of Exam: 06/19 Sex: F Admission Date: 01/05/24 : 1945 Age: 78 Exam(s) MG MAMMO SCREEN CALL BACK UNI US BREAST LT LIMITED EXAM: MG MAMMO SCREEN CALL BACK UNI and U/S breast LT limited CLINICAL HISTORY: F/U ABNL MAMMO, NEW 6 MM NODULE. TECHNIQUE: Craniocaudal and mediolateral oblique Full Field Digital Mammography views of the left breast with Computer Aided Diagnosis followed by Tomosynthesis and left breast ultrasound. COMPARISON: Comparison is made with prior examinations. FINDINGS: Mammography/Tomosynthesis: Masses/Architectural Distortion: There is a persistent well-circumscribed nodule in the retroareolar region of the left breast. Microcalcifictions: No suspicious pleomorphic-type are seen. Skin Thickening/Nipple Retraction: None. Limited left breast US: Echotexture: Normal appearance of the glandular tissue. Shadowing: No suspicious foci. Cyst: There is a 0.3 cm cyst at the 6 o'clock position of the left breast in the retroareolar region. Solid lesions: There is a 0.5 x 0.3 x 0.5 cm isoechoic nodule in the retroareolar region of the left breast. This would appear to correspond to the mammographic abnormality. This may represent an intraparenchymal lymph node. Ductal dilation: None. IMPRESSION: 1. No evidence of malignancy is noted. 2. Unless there is more urgent need, follow-up screening mammography is recommended, as per [place] [employer] guidelines. 3. The findings were discussed with the patient on the date of the examination. BI-RADS Category 2 - Benign Findings Breast Density - Category B - Scattered areas of fibroglandular density Breast density Category C or D implies that the patient has dense breast tissue. Dense breast tissue can make it harder to find cancer on a mammogram. Dense breast tissue is also associated with an increased risk of breast cancer. This information about the result of the mammogram report was provided to the patient to raise their awareness. Use this report when you speak with the patient about their risks for breast cancer, which includes their family history. At that time, you may recommend additional screening tests (Ultrasound or MRI) as these tests may add significant information. A negative radiographic report should not delay biopsy if a dominant or clinically suspicious mass is present. Up to ten percent of cancers are not identified on mammography. A negative report may reinforce clinical impression. Adenosis and dense breasts may obscure an underlying neoplasm. False positive reports average 6 to 10%. Patient will receive a letter notifying them of these results. Ordered By: Sachin Limon CC: Dictated By: Nicholas Medrano M.D. 01/05/24 1455 01/05/24 1455 Transcribed By: Nicholas Medrano 01/05/24 1455 This is privileged, confidential information intended only for the provider named. Any use or distribution by any person other than this provider is strictly prohibited. If you receive this report in error, please notify us immediately at [phone] and return the original report to us at the address above. Thank-you. JONH alejandro [facility] 02/02/2024 15:43:59 Xr, Foot : Patient Name: Liya Anders Unit #: [id number] Loc: Ordering Provider: Faye German DPM Status: REG CLI Primary Care Provider: Sachin Limon Date of Exam: 03/19 Sex: F Admission Date: 03/03/24 : 1945 Age: 78 Exam(s) XR FOOT LT COMPLETE XR FOOT RT COMPLETE EXAM: XR FOOT RT COMPLETE CLINICAL HISTORY: Right foot pain, M79.671. TECHNIQUE: 2D digital imaging was performed. Three views of both feet. COMPARISON: CR XR FOOT LT COMPLETE from 03/03/2024 FINDINGS: BONES: No acute fracture is present. No bony destructive lesion is seen. Prominent enthesophytes at the Achilles insertion on the calcaneus and adjacent soft tissue thickening. JOINTS: No dislocation present. Bilateral flattening of the plantar arch. Degenerative changes greatest at the tarsal metatarsal joints SOFT TISSUE: Vascular calcifications. IMPRESSION: Pes planus and prominent calcaneal enthesophytes. DATA REPOSITORY: RADIATION DOSE DELIVERED: Ordered By: Faye German DPM CC: Dictated By: Natalia Galvin M.D. 03/03/24 1504 03/03/24 1504 Transcribed By: Natalia Galvin 03/03/24 1504 This is privileged, confidential information intended only for the provider named. Any use or distribution by any person other than this provider is strictly prohibited. If you receive this report in error, please notify us immediately at [phone] and return the original report to us at the address above. Thank-you. JONH alejandro [facility] 03/04/2024 11:40:37 Xr, Foot : Patient Name: Liya Anders Unit #: [id number] Loc: DI Ordering Provider: Faye German DPM Status: REG CLI Primary Care Provider: Sachin Limon Date of Exam: 03/19 Sex: F Admission Date: 03/03/24 : 1945 Age: 78 Exam(s) XR FOOT LT COMPLETE XR FOOT RT COMPLETE EXAM: XR FOOT RT COMPLETE CLINICAL HISTORY: Right foot pain, M79.671. TECHNIQUE: 2D digital imaging was performed. Three views of both feet. COMPARISON: CR XR FOOT LT COMPLETE from 03/03/2024 FINDINGS: BONES: No acute fracture is present. No bony destructive lesion is seen. Prominent enthesophytes at the Achilles insertion on the calcaneus and adjacent soft tissue thickening. JOINTS: No dislocation present. Bilateral flattening of the plantar arch. Degenerative changes greatest at the tarsal metatarsal joints SOFT TISSUE: Vascular calcifications. IMPRESSION: Pes planus and prominent calcaneal enthesophytes. DATA REPOSITORY: RADIATION DOSE DELIVERED: Ordered By: Faye German DPM CC: Dictated By: Natalia Galvin M.D. 03/03/24 1504 03/03/24 1504 Transcribed By: Natalia Galvin 03/03/24 1504 This is privileged, confidential information intended only for the provider named. Any use or distribution by any person other than this provider is strictly prohibited. If you receive this report in error, please notify us immediately at [phone] and return the original report to us at the address above. Thank-you. BEVERLY Fong - [facility]. 03/04/2024 11:40:52 Problems Name Problem SNOMED Code Status Onset Date Resolution Date Notes Provider Name and Address Organization Details Recorded Time Hyperlip idemia 94371727 Active 2022 PERI LACOURSE, JAVA ENTERPRISE ARCHITECT null, [facility] 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 3 10:52:49 [facility] hyperten maru 30841323 Active 2022 PERIFrancisco DELEON JAVA ENTERPRISE ARCHITECT null, [facility] 3 10:48:19 Chronic diastoli c heart failure 403123656 Active 2022 PERIFrancisco DELEON JAVA ENTERPRISE ARCHITECT null, [facility]. 3 10:52:40 Arterios clerotic vascular disease 82496639 Active 2022 PERIFrancisco DELEON JAVA ENTERPRISE ARCHITECT null, [facility]. 3 10:52:30 Right flank pain 035019958 Active 2022 Alicja joyce null, [facility]. 4 12:10:01 Pain in right foot 5180783519 41826 Active 2022 Alicja joyce null, [facility]. 4 12:09:49 Obesity 638838000 Active 2023 Alicja joyce [facility], [facility]. 4 12:09:38 Depressi ve disorder 46640557 Active 2023 Alicja joyce null, [facility] 4 12:09:25 Nontraum atic rotator cuff tear 401375076 Completed 202308/20/2023 EM BAUER MA null, [facility] 4 13:30:11 Nontraum atic rotator cuff tear 807124139 Active 2023 EM BAUER MA null, [facility] 4 13:30:11 Polyneur opathy 89881435 Active 2023 peripher al Alicja joyce null, [facility] 4 12:09:51 Thoracic outlet syndrome 078822328 Active 2023 [facility] 4 12:09:55 History of malignan t neoplasm of skin 448767354 Active 2023 [facility] 4 12:09:33 Obstruct thelma sleep apnea syndrome 30783629 Active 2023 [facility], [facility] 4 12:09:41 Dyspnea 132349100 Active 2023 [facility] 4 12:09:30 Bilatera l cramp of muscle of lower limbs 9970701806 0825936 Active 2023 [facility] 4 12:09:23 Osteoart hritis 933121551 Active 2023 [facility] 4 12:09:43 Endometr ial carcinom a 205695566 Completed 202308/20/2023 EM BAUER MA null, [facility] 4 13:39:54 Diastoli c heart failure 444100033 Active 2023 [facility] 4 12:09:27 Basal cell carcinom a of skin 851011630 Active 2023 [facility] 4 12:09:20 Neoplasm of uncertai n behavior of skin 93410635 Active [address], [place], [address], [facility] 4 10:23:42 Fatigue 04317122 Active [address], [place], [address], [facility] 4 11:38:20 Chronic cough 51211451 Active [address], [place], [address], [facility] 4 11:38:20 Aortic valve disorder 6362659 Active 2023 TOÑA HUBER MA null, [facility] 4 14:31:00 Subclini antonia hyperthy roidism 987086788 Active 2023 Deneen Fuentes RN null, [facility] 4 10:27:29 Foot pain 77325856 Active 2023 SACHIN JAMES, CLASSIFIED ADVERTISING CLERK [address], [facility] [address], [facility] 4 13:30:03 Low back pain 716054183 Active 2023 SACHIN JAMES, CLASSIFIED ADVERTISING CLERK [address], [place], [address], [facility] 4 11:54:46 Ankle pain 065209517 Active 2023 SACHIN JAMES, CLASSIFIED ADVERTISING CLERK [address], [facility] [address], [facility] 4 11:55:12 Mammogra phy abnormal 352354123 Active 2023 SACHIN JAMES, CLASSIFIED ADVERTISING CLERK [address], [facility] [address], [facility] 4 11:57:09 Infectio n of skin 833434561 Active [address], [place], [address], [facility] 4 14:11:49 Notes:Some problems listed i n Document: #[id number] could not be added to this patient's chart. Please review this document and add these problems to the patient's chart manually as needed. Problem Notes None recorded. Procedures Surgical History Date Name Laterality Status Provider Name and Address Organization Details Recorded Time 04/06/20 24 excision of melanoma completed EMLORAINE BAUER [facility] 04/12/2024 14:49:16 06/27/20 22 endoscopic calcaneoplasty for Ora deformity completed EMLORAINE BAUER [facility] 08/20/2023 13:51:40 12/29/19 20 mohs surgery completed EM MARTIN, [facility] 08/20/2023 14:03:48 02/23/20 18 Coronary artery bypass/reop completed EMLORAINE BAUER [facility] 08/20/2023 13:52:47 10/02/19 17 cataract surgery completed EM MARTIN, [facility] 08/20/2023 14:02:07 09/17/19 17 Cataract Surgery completed EM MARTIN, [facility] 08/20/2023 14:02:47 11/16/19 13 total knee replacement completed EMLORAINE BAUER [facility] 08/20/2023 13:45:27 03/15/20 12 total knee replacement completed [facility] 08/20/2023 13:44:56 open reduction of fracture of tibia and fibula completed EMLORAINE BAUER [facility] 08/20/2023 13:47:29 procedure on elbow completed EMLORAINE BAUER [facility] 08/20/2023 13:47:55 Appendectomy completed EMLORAINE BAUER [facility] 08/20/2023 13:51:52 hysterectomy completed EM MARTIN, [facility] 08/20/2023 13:52:06 Imaging Results Imaging Date Name Status LastModified by Organiz ation Details LastModified Time 11/16/2023 XR, chest, 2 view completed [email or web address] [place], [address] 11/17/2023 17:01:56 12/17/2023 DEXA completed [address] [place], [address] 01/22/2024 14:43:06 01/01/2024 MAMMO, screening, digital, bilateral completed [email or web address] [place], [address] 01/22/2024 14:44:16 01/05/2024 MAMMO, screening, unilateral completed [address] [place], [address] 02/02/2024 15:43:58 01/05/2024 US, breast, unilateral, limited completed [address] [place], [address] 02/02/2024 15:45:20 03/03/2024 XR, foot completed [address] [place], [address] 03/04/2024 11:40:37 03/03/2024 XR, foot completed [address] [place], [address] 03/04/2024 11:40:52 Procedure Notes None recorded. Medical Equipment None Reported. Allergies Allergen ID Allergen Name Allergen Category Reaction Reaction Severity Criticality Documentation Date Start Date Code Code System Note Provider Name and Address Organization Details Recorded Time 09444 morphine medicatio n hallucina tions Not available Not available 08/20/2023 7052 RxNorm NATALIE BAUER MA [place], [place] - [facility] 12:21:43 Medications Name Sig Start [...] e 50 mcg/actua tion nasal spray,stephan pension Crooks 1 spray every day by intranas al [...] Updated DateTime 4 144.14 cm 34.1 kg/m2 33286.4 1 g 95 % 95 % 84 /min 97.7 [degF] 136 mm[Hg] 72 mm[Hg] TOÑA HUBER MA [facility] 4 09:26:01 Date Recorded Body height Oxygen saturation Oxygen saturation in Arterial blood by Pulse oximetry Heart rate Body mass index (BMI) Body weight Body temperature Systolic blood pressure Diastolic blood pressure Provider Name and Address Organization Details Last Updated DateTime 4 144.14 cm 96 % 96 % 65 /min 34.3 kg/m2 05625 g 97.3 [degF] 118 mm[Hg] 58 mm[Hg] JASON KHANNA RN [facility] 4 13:04:32 Date Recorded Body height Body mass index (BMI) Body weight Body temperature Oxygen saturation Oxygen saturation in Arterial blood by Pulse oximetry Heart rate Systolic blood pressure Diastolic blood pressure Provider Name and Address Organization Details Last Updated DateTime 4 144.14 cm 33.9 kg/m2 72514.5 4 g 97.5 [degF] 99 % 99 % 61 /min 116 mm[Hg] 62 mm[Hg] UVALDO SANDERS RN [facility] 4 11:18:53 Date Recorded Body height Body mass index (BMI) Body weight Body temperature Oxygen saturation Oxygen saturation in Arterial blood by Pulse oximetry Heart rate Systolic blood pressure Diastolic blood pressure Provider Name and Address Organization Details Last Updated DateTime 4 144.14 cm 34.7 kg/m2 57389.1 9 g 98 [degF] 100 % 100 % 68 /min 118 mm[Hg] 66 mm[Hg] NATALIE BAUER MA [facility] 4 14:51:34 Date Recorded Body height Body mass index (BMI) Body weight Body temperature Oxygen saturation Oxygen saturation in Arterial blood by Pulse oximetry Heart rate Respiratory rate Systolic blood pressure Diastolic blood pressure Provider Name and Address Organization Details Last Updated DateTime 4 144.14 cm 34.9 kg/m2 54752.7 8 g 97.7 [degF] 96 % 96 % 79 /min 16 /min 144 mm[Hg] 65 mm[Hg] Candelaria Hood [facility] 4 13:27:22 Social History Question Answer Notes LastModified by Organizat ion Details LastModified Time Tobacco Smoking Status Former Smoker 18 when she quit smoking EM BAUER [facility], [facility] 08/18/2023 10:42:09 Do You Have An Advance Directive? No Paperwork Given Information not available 12/09/2023 When Did You Quit Smoking? 16+yearssince lastcigarette [email or web address] Information not available 08/18/2023 Date Of Most Recent HSA 12/09/2023 Information not available 12/09/2023 Would You Say That, In General, Your Health Is Fair [email or web address] Information not available 08/18/2023 How Often Does Anyone, Including Family, Physically Hurt You? Never [email or web address] Information not available 08/18/2023 How Often Does Anyone, Including Family, Insult Or Talk Down To You? Never [email or web address] Information not available 08/18/2023 How Often Does Anyone, Including Family, Threaten You With Harm? Never [email or web address] Information not available 08/18/2023 How Often Does Anyone, Including Family, Scream Or Curse At You? Never [email or web address] Information not available 08/18/2023 Within The Past 12 Months, You Worried That Your Food Would Run Out Before You Got Money To Buy More. Sometimes True Information not available 12/09/2023 Within The Past 12 Months, The Food You Bought Just Didn't Last And You Didn't Have Money To Get More. Never True [email or web address] Information not available 08/18/2023 How Hard Is It For You To Pay For The Very Basics Like Food, Housing, Medical Care, And Heating? Would You Say It Is: Not Hard At All Information not available 12/09/2023 In The Past 12 Months, Has Lack Of Reliable Transportation Kept You From Medical Appointments, Meetings, Work Or From Getting Things Needed For Daily Living? No [email or web address] Information not available 08/18/2023 What Is Your Housing Situation Today? I Have Housing. [email or web address] Information not available 08/18/2023 How Often In The Past Year Have You Used Marijuana (including Smoking, Vaping, Dabbing, Or Edibles)? Never [email or web address] Information not available 08/18/2023 How Often In The Past Year Have You Used Prescription Medications That Were Not Prescribed To You? Never [email or web address] Information not available 08/18/2023 How Often In The Past Year Have You Taken Your Own Prescription Medication More Than The Way It Was Prescribed Or For Different Reasons Than Its Intended Purpose? Never [email or web address] Information not available 08/18/2023 How Often In The Past Year Have You Used Other Drugs (for Example, Heroin, Cocaine, Meth, Salvia, Inhalants)? Never [email or web address] Information not available 08/18/2023 What Matters Most To You? to Be Safe And Healthy, See And Walk Information not available 12/09/2023 During The Past Four Weeks, Was Someone Available To Help You If You Needed And Wanted Help? (For Example, If You [place] Very Nervous, Lonely, Or Blue; Got Sick [...] Safety Concerns In Your Home (see Attached [facility] Pamphlet)? No Information not available 12/09/2023 How [...] Do You Have A Medical Power Of Chief Legal Officer? No Information not available 12/09/2023 What Was The Date Of Your Most Recent Tobacco Screening? 05/13/2024 Information not available 05/13/2024 At What Age Did You Start Smoking Tobacco? 16 [email or web address] Information not available 08/18/2023 Has Tobacco Cessation [...] Organization Details LastModified Time Mother Diastolic dysfunction [email or web address] Not available 07/28 13:53:44 Mother Congestive heart failure 68 [email or web address] Not available 2023 13:55:35 Brother Myocardial infarction [email or web address] Not available 08/20 13:54:51 Brother Family history of malignant neoplasm [email or web address] Not available 2023 14:47:47 Sister Family history of malignant neoplasm Not available 2023 14:47:47 Medical History No medical history recorded. Gynecological HistoryNo gynecological history recorded. Obstetrics History GPAL:G 0 P 0 0 0 0 Immunizations Vaccine Type Date Status Provider Name and Address Organization Details Recorded Time Td (adult), 2 Lf tetanus toxoid, preservative free, adsorbed 08/18/2023 completed JACQUELIN QUISPE [address], [place], [address], [facility] 08/18/2023 22:14:59 Influenza, high-dose, trivalent, PF 04/12/2024 completed JACQUELIN QUISPE [address], [place], [address], [facility] 04/12/2024 21:01:41 SARS-COV-2 (COVID-19) vaccine, UNSPECIFIED 05/08/2023 completed JODI CUENCA, [facility] 08/20/2023 12:15:28 SARS-COV-2 (COVID-19) vaccine, UNSPECIFIED 08/15/2020 completed JODI CUENCA, [facility] 08/20/2023 12:15:34 SARS-COV-2 (COVID-19) vaccine, UNSPECIFIED 09/14/2020 completed JODI CUENCA, [facility] 08/20/2023 12:15:49 SARS-COV-2 (COVID-19) vaccine, UNSPECIFIED 05/30/2021 completed JODI CUENCA, [facility] 08/20/2023 12:15:55 SARS-COV-2 (COVID-19) vaccine, UNSPECIFIED 05/10/2022 JODI Booker, [facility] 08/20/2023 12:16:04 Pneumococcal conjugate PCV 13 01/04/2015 completed JODI CUENCA, [facility] 08/20/2023 12:16:40 influenza, unspecified formulation 03/29/2020 completed JODI CUENCA, [facility] 08/20/2023 12:17:06 influenza, unspecified formulation 04/24/2021 completed JODI CUENCA, [facility], [facility]. 08/20/2023 12:17:14 influenza, unspecified formulation 05/10/2022 completed JODI CUENCA, [facility] 08/20/2023 12:17:20 influenza, unspecified formulation 05/08/2023 completed JODI CUENCA, [facility], [facility] 08/20/2023 12:17:30 pneumococcal polysaccharide PPV23 03/02/2012 completed JODI CUENCA, [facility] 08/20/2023 12:18:00 pneumococcal polysaccharide PPV23 03/04/2019 completed JODI CUENCA, [facility], [facility] 08/20/2023 12:18:09 Tdap 03/02/2012 completed JODI CUENCA, [facility] 08/20/2023 12:18:41 zoster, unspecified formulation 09/01/2018 completed JODI CUENCA, [facility] 08/20/2023 12:18:59 zoster, unspecified formulation 03/04/2019 completed JODI CUENCA, [facility] 08/20/2023 12:19:04 zoster, unspecified formulation 04/09/2012 completed JODI CUENCA, [facility] 08/20/2023 12:19:11 Past Encounters Encounter ID Performer Location Encounter Start Date Encounter Closed Date Diagnosis/Indication Diagnosis SNOMED-CT Code Diagnosis ICD10 Code [id number] [address] [address] 07/10/2023 08:03:29 07/10/2023 09:07:38 Right flank pain 914404453 R10.9 Essential hypertension 87499405 I10 [id number] [address] [address] 07/15/2023 10:11:36 07/15/2023 10:53:13 Essential hypertension 99879095 I10 Pain in right foot 10325 47106 75631 M79.671 Right flank pain 2461914 09 R10.[id number] [address] 08/18/2023 10:29:16 08/18/2023 12:16:13 Hyperlipidemia 01162593 E78.5 Obesity 554000113 E66.9 Essential hypertension 63469696 I10 Screening for malignant neoplasm of colon 277131853 Z12.11 Active or passive immunization 395211441 Z23 [id number] Fabi Marin PA-C [address] [address] 11/03/2023 10:33:42 11/03/2023 11:24:23 Upper respiratory infection 93260742 J06.9 Obesity 984609506 E66.9 [id number] PADMAJA RILEY [address] [address] 11/16/2023 09:16:49 11/16/2023 09:52:12 Fatigue 15776078 R53.83 Chronic cough 93977622 R 05.3 Neoplasm o f uncertain behavior of skin 99579876 D48.5 Obesity 475401779 E66.9 Obstructiv e sleep apnea syndrome 46140002 G47.[id number] [address] 12/09/2023 12:38:05 12/09/2023 13:45:09 Adult health examination 163802537 Z78.0 Foot pain 89105801 M79.6 71 M79.672 Screening for malignant neoplasm of colon 006928998 Z12.11 Screening mammography 24 920578 Z12.31 Screening for osteoporosis 819346874 Z78.[id number] [address] 01/05/2024 10:54:02 01/05/2024 11:42:50 Obesity 135186127 E66.9 Essential hypertension 10535229 I10 Low back pain 078797121 M54.50 Ankle pain 038433856 M25 .579 Mammography abnormal 168 670001 R92.8 [id number] JACQUELIN QUISPE [facility] [address] [place] [address] 04/12/2024 14:18:14 04/12/2024 15:29:45 Basal cell carcinoma of skin 623719229 C44.91 Bilateral cramp of muscle of lower limbs 3306293865 8981115 R25.2 Obstructiv e sleep apnea syndrome 10841056 G47.33 Polyneuropathy 00691815 G62.9 Active or passive immunization 236835964 Z23 [id number] ROGER ARGUETA PA-C [address] [address] 05/13/2024 10:54:11 05/13/2024 13:50:24 Infection of skin 623172718 L08.9 Health Concerns Section Related Observation LastModified by Organization Detai ls LastModified Time None Recorded Concern Status LastModified by Organization Details LastModified Time None Recorded Advance Directives Directive N: paperwork given Payers Encounter Date Sequence Insurance Name Policy Number Policy Kearns Covered Member ID Kearns Member ID Guarantor Name 11/16/2023 1 [place]ANT[place] - [place]PO) [id number] Liya A Chago [id number] Liya A Chago 12/09/2023 1 [place]) [id number] Liya A Chago [id number] Liya A Chago 01/05/2024 1 [place]) [id number] Liya A Chago [id number] Liya A Chago 04/12/2024 1 [place]) [id number] Liya A Chago [id number] Liya A Chago 04/12/2024 2 [place] Liya Anders [id number] Liya Singh Chago 05/13/2024 1 [place]) [id number] Liya Anders [id number] Liya Anders 05/13/2024 2 [place] Liya Vegary [id number] Liya Anders Notes Date Note Type Note Provider Name and Address Organization Details Recorded Time 11/16/2023 text/html HPI Notes: The patient presents [...] lesions removed. She has not seen a aerospace mechanic recently. The patient reports feeling cold and [...] with abdominal fat. MD [address], [place], [address], [facility]. 11/16/2023 13:43:54 12/09/2023 text/html HPI Notes: Medic [...] annual Medicare Wellness exam [address], [place], [address], [facility], [facility]. 12/09/2023 15:21:44 01/05/2024 text/html HPI Notes: The [...] and is scheduled for an ultrasound today. [address], [place], [address], [facility], [facility]. 01/05/2024 11:57:49 04/12/2024 text/html HPI Notes: Jess Anders presented for follow-up after the removal of basal cell carcinoma from her right forehead on April 07, with the incision healing well. Sleep apnea? scheduled for a sleep study on Thursday. Patient reports having 1 last year. Has been unable to tolerate CPAP. Scheduled for another sleep study and wants to consider the inspire implantable device. Neuropathies? patient seen by podiatry for bilateral foot pain. Was given injections. Was recommended back to PCP for possible initiation of Neurontin. Weight? patient would like to start GLP-1 therapy. Discussed benefits. Patient does not feel is affordable at this time. [address], [place], [address], [facility], [facility]. 04/12/2024 21:07:59 05/13/2024 text/html HPI Notes: Jess sahni is a 78-year-old female who presents with concern for infection on the right side of her forehead. She had a basal cell carcinoma removed by Dr. Salinas at [facility] dermatology on 04/07. Had dissolvable sutures. Saw primary care on 04/12 look to be healing well. In the last week she has noticed this area has now become red, has not been painful. No history of MRSA. Has not had fevers. Has been applying vitamin E. [address], [place], [address], [place] [facility]. 05/13/2024 14:11:58 OBGyn Episode No OBEpisode recorded.
--- OUTSIDE RECORDS SUMMARY | 2024-05-13 22:51 | XMS_ITS | Referral Summary ---
Author Organization [facility] Address [address] [place] [address] Care Team Providers Care Road Oiler Name Role Phone Gonzalo [facility] Primary Care Provider [phone] Encounters Date Type Department Care Team Description 04/14/2024 Telephone [facility] Dermatology [address] [place], [place] [phone] Cynthia Salinas MD Appointment Related 04/06/2024 13:00 EDT Office Visit [facility] Dermatology 5th Floor [facility] [address] [place] [address] Jonelle Rain MD Basal cell carcinoma (BCC) of right forehead (Primary Dx) 03/07/2024 Orders Only [facility] Dermatology [address] [place] [address] Darren Stubbs RN Basal cell carcinoma of right forehead (Primary Dx) 03/02/2024 13:40 EDT Office Visit [facility] Dermatology [address] [place], [place] [phone] Cynthia Salinas MD History of basal cell [...] stenosis 02/22/2018 Coronary artery disease invo lving [place] heart with angina pectoris ([facility]) 02/22/2018 Social History Tobacco Use Types Packs/Day [...] No 04/14/2018 Cognitive Status Response Date of [facility] ent Because of a physical, menta l, or emotional condition, does this person have serious difficulty concentrating, remembering, or making decisions? No 04/14/2018 Plan of Treatment Upcoming Encounters Date Type Department Care Team (Late st Contact Info) Description 05/27/2024 13:00 EDT Office Visit [facility] ENT- Main [address] [id number] Vicki Main MD [address] [place] [address], [facility] [address] [place] [phone] 03/08/2025 11:00 EDT Office Visit [facility] Dermatology [address] [facility], [place] [address] Cynthia Salinas MD [address] [place] [address], [facility] [address] [place] [address] Procedures Procedure Name Priority Date/Time Associated Diagnosis Comments PROCEDURE REPORTS - SCANNED 04/08/2024 8:24 EDT DERMATOLOGY SURGICAL PATHOLOGY Routine 03/02/2024 13:58 EDT Neoplasm of uncertain behavior of skin from Last 3 Months Results * PROCEDURE REPORTS - SCANNED (04/08/2024 8:24 EDT) 04/08/2024 8:24 EDT Scan 2 Plant Superintendent PROCEDURE/MINOR NANCY GICAL ORDERABLES * DERMATOLOGY SURGICAL PATHOLOGY (03/02/2024 13:58 EDT) Note to Patient The following pathology results have been interpreted by your pathologist and may be available to you before your health provider has had the opportunity to review them. Please allow time for your provider to receive these results and explore management options, if applicable. 03/04/2024 9:16 [facility] Final Diagnosis A. SKIN OF FOREHEAD, RIGHT LATERAL, SHAVE BIOPSY: - Basal cell carcinoma, nodular type. - Basal cell carcinoma present at deep tissue edge. 03/04/2024 9:16 [facility] Attestation By the signature below, the attending physician certifies that they have 1) personally conducted a gross and/or microscopic examination of the described specimen(s), and/or personally interpreted the results of laboratory testing of the described specimen(s), and 2) personally rendered or confirmed the above diagnosis. 03/04/2024 9:16 [facility] at 0916 Microscopic Description Irregularly [...] of the islands and stroma. 03/04/2024 9:16 [facility] Clinical History [place] telangiectatic and hemorrhagic crusted low plaque; suspect BCC; clinical diagnosis code: D48.5 03/04/2024 9:16 [facility] Gross Description A. Received in [...] A1. Jen Mayo 03/03/2024 11:04 03/04/2024 9:16 [facility] Performing Lab [facility] 03/04/2024 9:16 [facility] Scanned Images 03/04/2024 9:16 EDT [facility] Tissue SPECIMEN FROM SKIN / Unknown Collection, Other / Unknown 03/02/2024 13:58 EDT 03/02/2024 13:58 EDT Cynthia Salinas MD PATHOLOGY ORDERAB L[facility] [address] [place] [address] from Last 3 Months Advance Directives For more information, please contact: [phone] Documents on File Type Date Recorded Patient Payroll Analyst Expl anation COLST/MOLST 03/03/2018 8:00 2018-02-27 DNR [...] the discussion? Not Discusse d Care Teams Road Oiler Relationship Specialty Start Date End Date [facility] [address] [facility] [place] [id number] PCP - General 10/30/23
--- OUTSIDE RECORDS SUMMARY | 2024-05-13 22:51 | XMS_ITS | Encounter Summary ---
Author Organization [facility] Address [address] [place] [address] Care Team Providers Care Triage Register Nurse Name Role Phone [facility] Primary Care Provider [phone] Reason for Visit * Reason Comments Cough Nasal Congestion Chest Congestion Encounter Details Date Type Department Care Team (Late st Contact Info) Description 10/30/2023 13:45 EDT [facility] [address] [place] [phone] Rhonda Fields PA-C [address] [facility] [address] [place], [place] [address] URI with cough and congestion (Primary Dx) [...] saline rinses or lavage (example: Netipot, Neilmed, [place]) -Air humidifier, steamy shower, warm compress to [...] congestion x a month. Just returned from [place]. Coughing up yellowish green mucous. Covid Screening: [...] RN or in discussion with available provider (TESTER PRINTED CIRCUIT BOARDS's and CCA's can defer to Charge Nurse to complete triage when appropriate) PCP: [facility] * Rhonda Fields PA-C - 10/30/2023 134 EDT [facility] Express Care Chief Complaint(s): Chief Complaint Patient [...] below. Patient is advised in use of Eayun to access any lab results or other [...] lower extremity swelling. Onset symptoms while in [place], just spent a 1 month vacation there. Thought initially might have been allergies or issue with air conditioning. Both she and her daughter have allergies. Pollen has been very bad in [place] other daughter that is with family states. [...] note may be in part documented using Zorap dictation software. Please forgive any errors, omissions or typos that may result from use of dictation. documented in this encounter Plan of Treatment Upcoming Encounters Date Type Department Care Team (Late st Contact Info) Description 05/27/2024 13:00 EDT Office Visit [facility] [place] [address] Vicki Main MD [address] [place] [address], [address] [place] [phone] 03/08/2025 11:00 EDT Office Visit [facility] Dermatology [address], [place] [address] Cynthia Salinas MD [address] [facility], [address] [place] [address] documented as of this encounter [...] Hyperinflation suggestive of COPD. 3. Cardiac enlargement. [id number] Narrative 10/30/2023 15:45 EDT XR CHEST 2 [...] Hyperinflation suggestive of COPD. 3. Cardiac enlargement. [id number] Rhonda J Donnie [facility] IMG DIAGNOSTIC I MAGING ORDERABLES documented in [...] 09/14/2023 added in this encounter Care Teams Triage Register Nurse Relationship Specialty Start Date End Date [facility] 4 [facility] [place] [address] PCP - General 10/30/23 documented as of this encounter
--- OUTSIDE RECORDS SUMMARY | 2024-05-13 22:51 | XMS_ITS | Continuity of Care Document ---
Author Organization [facility], [facility] Address [address] [place] [address] Care Team Providers Care Dermatology Physician Assistant Name Role Phone JACQUELINE ROCKWELL Building Analyst/Supervisor [facility] Gastroenterologi st KELLY STEVENSON Timber Rider [facility]opedist [facility] Family Ms dicine ROSETTE PALOMINO Physical Therapist ALYSSA MONTEZ Sleep Medicine VIJI STEWART Building Analyst/Supervisor Assessment Encounter Date Assessment Date Assessment LastModified by Organization Details LastModified Time 04/12/2024 04/12/2024 The total time devoted to today's encounter, including both the eldb-ud-envz time with the patient and/or family/caregi sameer and pss-wnaa-qd-f neha time I personally spent is 25 minutes in visit, 5 minutes prep, 5 minutes charting; total 35 minutes. [email or web address] Not available 04/12/2024 21:07:16 Plan of Treatment Reminders Order Date Submit Date Provider Last Modified By Organization Details Last Modified Time Details Appointments Acute 10 2023 10:52A M ROGER ARGUETA Not available Not available Not available Follow Up 30 2023 10:00A M SACHIN JAMES Not available Not available Not available Lab None recorded. Referral None recorded. Procedures None recorded. Surgeries None recorded. Imaging None recorded. Medication Orders gabapenti n 100 mg capsule 2023 024 [employer] [address], [place], [address], 04/12/2024 15:08:22 Patient TargetsNo targets recorded. Patient Instructions Encounter Date Encounter Id Patient Instructions Last Modified By Organization Details Last Modified Time 04/12/2024 [id number] Dear Liya hurt, Thank you for visiting us on April 12, 2024. We appreciate your commitment to managing your health and are here to support you in your journey towards improvement. Here are the el instructions and recommendations from today's consultation: - Continue to follow up with Dr. Salinas at [facility] in [place] regarding your recent basal cell carcinoma removal. Call to make an appointment as advised in your discharge instructions. -Call [facility] for f/u Dr Salinas - Attend [...] regards, Kristie [email or web address] Not available 04/12/2024 15:14:35 Reason for Referral Timber Rider Referral for N eoplasm of uncertain behavior of skin hx BCC nose, eval new telangiectasias on nose, + full skin exam pls Referring Physician: Qing Baird [facility], Encounter Date: 11/16/2023 Wax Pattern Coater Referral for Foot pain Referring Physician: Sachin Ramirez Family [facility], Encounter Date: 12/09/2023 Physical Therapist Referral for Low back pain lower right back pain x 2-3 weeks, recommend stretching regimen. Also, c/o chronic left ankle weakness. 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 Active 2022 PERI ADRIENNE, PROCESS CONTROL TECH null, [facility] 3 10:52:49 Essentia l hyperten maru 58733901 Active 2022 PERI LILLYJOSH, PROCESS CONTROL TECH null, [facility] 3 10:48:19 Chronic diastoli c heart failure 226574007 Active 2022 PERI DELEON, PROCESS CONTROL TECH null, [facility] 3 10:52:40 Arterios clerotic vascular disease 62213600 Active 2022 PERI DELEON, PROCESS CONTROL TECH null, [facility] 3 10:52:30 Right flank pain 480148048 Active 2022 Alicja Valdez null, [facility] 4 12:10:01 Pain in right foot 2803789824 11145 Active 2022 Alicjaher Valdez [facility], [facility] 4 12:09:49 Obesity 378150879 Active 2023 Alicja Jackkenishanavneet [facility], [facility] 4 12:09:38 Depressi ve disorder 62023655 Active 2023 Alicja Valdez null, [facility] 4 12:09:25 Nontraum atic rotator cuff tear 758707267 Completed 202308/20/2023 EM BAUER MA null, [facility] 4 13:30:11 Nontraum atic rotator cuff tear 072882445 Active 2023 EM BAUER MA null, [facility] 4 13:30:11 Polyneur opathy 49024575 Active 2023 peripher al [facility], [facility]. 4 12:09:51 Thoracic outlet syndrome 121890228 Active 2023 [facility], [facility] 4 12:09:55 History of malignan t neoplasm of skin 864600368 Active 2023 [facility] 4 12:09:33 Obstruct dedra sleep apnea syndrome 07864699 Active 2023 [facility] 4 12:09:41 Dyspnea 174794608 Active 2023 [facility] 4 12:09:30 Bilatera l cramp of muscle of lower limbs 7339377620 0870993 Active 2023 [facility] 4 12:09:23 Osteoart hritis 274954152 Active 2023 [facility] 4 12:09:43 Endometr ial carcinom a 935715574 Completed 202308/20/2023 EM BAUER MA null, [facility] 4 13:39:54 Diastoli c heart failure 129239118 Active 2023 [facility] 4 12:09:27 Basal cell carcinom a of skin 308425150 Active 2023 [facility] 4 12:09:20 Neoplasm of uncertai n behavior of skin 20856821 Active [address], [place], [address], [facility] 4 10:23:42 Fatigue 05969154 Active [address], [facility] [address], [facility] 4 11:38:20 Chronic cough 94252648 Active [address], [facility] [address], [facility] 4 11:38:20 Aortic valve disorder 8684450 Active 2023 TOÑA HUBER MA null, [facility] 4 14:31:00 Subclini antonia hyperthy roidism 836048047 Active 2023 Deneen Fuentes RN null, [facility] 4 10:27:29 Foot pain 05583273 Active [address], [facility] [address], [facility] 4 13:30:03 Low back pain 869039141 Active [address], [facility] [address], [facility] 4 11:54:46 Ankle pain 607200826 Active [address], [facility] [address], [facility] 4 11:55:12 Mammogra phy abnormal 340930358 Active [address], [facility] [address], [facility] 4 11:57:09 Infectio n of skin 881053488 Active [address], [facility] [address], [facility] 14:11:49 Notes:Some problems listed i n Document: #[id number] could not be added to this patient's chart. Please review this document and add these problems to the patient's chart manually as needed. Problem Notes None recorded. Procedures Surgical History Date Name Laterality Status Provider Name and Address Organization Details Recorded Time 04/06/20 24 excision of melanoma completed EM BAUER MA [facility] 04/12/2024 14:49:16 06/27/20 22 endoscopic calcaneoplasty for Ora deformity completed EM BAUER MA [facility] 08/20/2023 13:51:40 12/29/19 20 mohs surgery completed EM BAUER [facility] 08/20/2023 14:03:48 02/23/20 18 Coronary artery bypass/reop completed EM BAUER [facility] 08/20/2023 13:52:47 10/02/19 17 cataract surgery completed EM BAUER [facility] 08/20/2023 14:02:07 09/17/19 17 Cataract Surgery completed EMLORAINE BAUER [facility] 08/20/2023 14:02:47 11/16/19 13 total knee replacement completed EM BAUER [facility] 08/20/2023 13:45:27 03/15/20 12 total knee replacement completed EM BAUER [facility] 08/20/2023 13:44:56 open reduction of fracture of tibia and fibula completed EM BAUER MA [facility] 08/20/2023 13:47:29 procedure on elbow completed EM BAUER [facility] 08/20/2023 13:47:55 Appendectomy completed EM BAUER MA [facility] 08/20/2023 13:51:52 hysterectomy completed EM BAUER [facility] 08/20/2023 13:52:06 Imaging Results None recorded. Procedure Notes None recorded. Medical Equipment None Reported. Allergies Allergen ID Allergen Name Allergen Category Reaction Reaction Severity Criticality Documentation Date Start Date Code Code System Note Provider Name and Address Organization Details Recorded Time 36354 morphine medicatio n hallucina tions Not available Not available 08/20/2023 7052 RxNorm NATALIE BAUER MA [facility], [place] [facility]. 4 12:21:43 Medications Name Sig Start Date [...] e 50 mcg/actua tion nasal spray,stephan pension [place] 1 spray every day by intranas al [...] Updated DateTime 4 144.14 cm 34.7 kg/m2 70635.1 9 g 98 [degF] 100 % 100 % 68 /min 118 mm[Hg] 66 mm[Hg] NATALIE BAUER MA [facility] 14:51:34 Social History Question Answer Notes LastModified by Kelle ion Details LastModified Time Tobacco Smoking Status Former Smoker 18 when she quit smoking EM BAUER MA [facility], [facility] 08/18/2023 10:42:09 Do You Have An Advance Directive? No Paperwork Given Information not available 12/09/2023 When Did You Quit Smoking? 16+yearssince lastcigarette [email or web address] Information not available 08/18/2023 Date Of Most Recent HSA 12/09/2023 Information not available 12/09/2023 Would You Say That, In General, Your Health Is Fair Information not available 08/18/2023 How Often Does Anyone, Including Family, Physically Hurt You? Never Information not available 08/18/2023 How Often Does Anyone, Including Family, Insult Or Talk Down To You? Never [email or web address] Information not available 08/18/2023 How Often Does Anyone, Including Family, Threaten You With Harm? Never [email or web address] Information not available 08/18/2023 How Often Does Anyone, Including Family, Scream Or Curse At You? Never [email or web address] Information not available 08/18/2023 Within The Past 12 Months, You Worried That Your Food Would Run Out Before You Got Money To Buy More. Sometimes True Information not available 12/09/2023 Within The Past 12 Months, The Food You Bought Just Didn't Last And You Didn't Have Money To Get More. Never True [email or web address] Information not available 08/18/2023 How Hard Is It For You To Pay For The Very Basics Like Food, Housing, Medical Care, And Heating? Would You Say It Is: Not Hard At All Information not available 12/09/2023 In The Past 12 Months, Has Lack Of Reliable Transportation Kept You From Medical Appointments, Meetings, Work Or From Getting Things Needed For Daily Living? No [email or web address] Information not available 08/18/2023 What Is Your Housing Situation Today? I Have Housing. [email or web address] Information not available 08/18/2023 How Often In The Past Year Have You Used Marijuana (including Smoking, Vaping, Dabbing, Or Edibles)? Never [email or web address] Information not available 08/18/2023 How Often In The Past Year Have You Used Prescription Medications That Were Not Prescribed To You? Never [email or web address] Information not available 08/18/2023 How Often In The Past Year Have You Taken Your Own Prescription Medication More Than The Way It Was Prescribed Or For Different Reasons Than Its Intended Purpose? Never [email or web address] Information not available 08/18/2023 How Often In The Past Year Have You Used Other Drugs (for Example, Heroin, Cocaine, Meth, Salvia, Inhalants)? Never [email or web address] Information not available 08/18/2023 What Matters Most To You? to Be Safe And Healthy, See And Walk Information not available 12/09/2023 During The Past Four Weeks, Was Someone Available To Help You If You Needed And Wanted Help? (For Example, If You [place] Very Nervous, Lonely, Or Blue; Got Sick [...] Do You Have A Medical Power Of Colliery Clerk? No Information not available 12/09/2023 What Was The Date Of Your Most Recent Tobacco Screening? 05/13/2024 Information not available 05/13/2024 At What Age Did You Start Smoking Tobacco? 16 [email or web address] Information not available 08/18/2023 Has Tobacco Cessation [...] Organization Details LastModified Time Mother Diastolic dysfunction [email or web address] Not available 07/28 13:53:44 Mother Congestive heart failure 68 [email or web address] Not available 2023 13:55:35 Brother Myocardial infarction [email or web address] Not available 08/20 13:54:51 Brother Family history of malignant neoplasm Not available 2023 14:47:47 Sister Family history of malignant neoplasm [email or web address] Not available 2023 14:47:47 Medical History No medical history recorded. Gynecological HistoryNo gynecological history recorded. Obstetrics History GPAL:G 0 P 0 0 0 0 Immunizations Vaccine Type Date Status Provider Name and Address Organization Details Recorded Time Td (adult), 2 Lf tetanus toxoid, preservative free, adsorbed 08/18/2023 completed SACHIN RAMIREZ, JACQUELIN [address], [place], [address], [facility] 08/18/2023 22:14:59 Influenza, high-dose, trivalent, PF 04/12/2024 completed JACQUELIN QUISPE [address], [place], [address], [facility] 04/12/2024 21:01:41 SARS-COV-2 (COVID-19) vaccine, UNSPECIFIED 05/08/2023 completed JODI CUENCA, [facility] 08/20/2023 12:15:28 SARS-COV-2 (COVID-19) vaccine, UNSPECIFIED 08/15/2020 JODI Booker, [facility], [facility]. 08/20/2023 12:15:34 SARS-COV-2 (COVID-19) vaccine, UNSPECIFIED 09/14/2020 completed JODI CUENCA, [facility] 08/20/2023 12:15:49 SARS-COV-2 (COVID-19) vaccine, UNSPECIFIED 05/30/2021 completed JODI CUENCA, [facility] 08/20/2023 12:15:55 SARS-COV-2 (COVID-19) vaccine, UNSPECIFIED 05/10/2022 completed JODI CUENCA, [facility] 08/20/2023 12:16:04 Pneumococcal conjugate PCV 13 01/04/2015 completed JODI CUENCA, [facility] 08/20/2023 12:16:40 influenza, unspecified formulation 03/29/2020 completed JODI CUENCA, [facility], [facility]. 08/20/2023 12:17:06 influenza, unspecified formulation 04/24/2021 completed JODI CUENCA, [facility] 08/20/2023 12:17:14 influenza, unspecified formulation 05/10/2022 completed JODI CUENCA, [facility], [facility] 08/20/2023 12:17:20 influenza, unspecified formulation 05/08/2023 completed JODI CUENCA, [facility], [facility]. 08/20/2023 12:17:30 pneumococcal polysaccharide PPV23 03/02/2012 completed JODI CUENCA, [facility], [facility]. 08/20/2023 12:18:00 pneumococcal polysaccharide PPV23 03/04/2019 completed JODI CUENCA, [facility], [facility]. 08/20/2023 12:18:09 Tdap 03/02/2012 completed JODI CUENCA, [facility], [facility] 08/20/2023 12:18:41 zoster, unspecified formulation 09/01/2018 completed JODI CUENCA, [facility] 08/20/2023 12:18:59 zoster, unspecified formulation 03/04/2019 completed JODI CUENCA, [facility] 08/20/2023 12:19:04 zoster, unspecified formulation 04/09/2012 completed EM BAUER MA flavia, [facility] 08/20/2023 12:19:11 Past Encounters Encounter ID Performer Location Encounter Start Date Encounter Closed Date Diagnosis/Indication Diagnosis SNOMED-CT Code Diagnosis ICD10 Code [id number] SACHIN , STREET SUPERVISOR [facility] [address] [place] [address] 04/12/2024 14:18:14 04/12/2024 15:29:45 Basal cell carcinoma of skin 148982565 C44.91 Bilateral cramp of muscle of lower limbs 7230167876 0865768 R25.2 Obstructiv e sleep apnea syndrome 28727760 G47.33 Polyneuropathy 05314484 G62.9 Active or passive immunization 710131430 Z23 Health Concerns Section Related Observation LastModified by Organization Detai ls LastModified Time None Recorded Concern Status LastModified by Organization Details LastModified Time None Recorded Payers Encounter Date Sequence Insurance Name Policy Number Policy Kearns Covered Member ID Kearns Member ID Guarantor Name 04/12/2024 1 [id number]ANT[place] - [place]PO) [id number] Liya Anders [id number] Liya Anders 04/12/2024 2 [place] [employer] [place] Liya Anders [id number] Liya Anders Notes Date Note Type Note Provider Name and Address Organization Details Recorded Time 04/12/2024 text/html HPI Notes: Daphnetg Anders presented for follow-up after the removal [...] not feel is affordable at this time. SACHIN RAMIREZ, STREET SUPERVISOR [address], [place], [address], [facility]. 04/12/2024 21:07:59 OBGyn Episode No OBEpisode recorded.
--- OUTSIDE RECORDS SUMMARY | 2024-05-13 22:51 | XMS_ITS | Encounter Summary ---
Author Organization [facility] Address [address] [place] [address] Care Team Providers Care Medical Insurance Collector Name Role Phone Bianca Prescott [facility] Primary Care Provider [phone] Reason for Visit * Reason Comments New Patient Visit Skin lesion, recheck spot on nose, few spots on face, spots on arms. Encounter Details Date Type Department Care Team (Late st Contact Info) Description 03/02/2024 13:40 EDT Office Visit [facility] [address] [facility], [place] [address] Cynthia Salinas MD [address] [facility], [facility] [address] [place] [address] History of basal cell carcinoma [...] discomfort. Tylenol, taken as directed by the combination presser, will help relieve pain. If Tylenol does [...] choose to look at your results in [place] prior to our office contacting you, that is your right and choice. Our office policy is to have your provider or the provider???s life enrichment assistant contact you with your results and [...] not call the office or send a [place]uso message asking to discuss them. Providers are seeing patients during the day and cannot answer calls during clinic time or off hours/weekends. Unless it is an emergency, the electronic imager provider will not review biopsy and/ or lab results. Thank you for entrusting us with your care. [facility]- Dermatology WOUND CARE INSTRUCTIONS FOR CRYOSURGERY (FREEZING [...] arms. Has a spot on the right faith and some on the left faith/forehead. OBJECTIVE: Cutaneous full body examination excluding genitalia [...] NOTE PATIENT: Liya Anders : MRN: [id number] SURGEON: Cynthia Salinas MD Informed consent was [...] MD 03/02/2024 14:04 documented in this encounter Miscellaneous Notes * Result Encounter Note - Cynthia Salinas MD - 03/02/2024 1340 EDT Please call patient and inform patient she has a skin cancer that is a basal cell carcinoma and arrange for Mohs. Patient's Mohs Appropriate Use Criteria (AUC) score (0-9) is: 8 Risk factors: Pacemaker/ICD: None Anticoagulants: ASA81 Total joint replacements/valves: BILATERAL KNEES Allergies: Patient is allergic to anesthesia s/i-40 (propofol) [propofol] and morphine. Immunosuppression: None Cynthia Salinas MD * Result Encounter Note - Darren Stubbs RN - 03/02/2024 1340 EDT Spoke with patient and relayed biopsy results and recommendation as directed by Cynthia Salinas MD. Liya voiced understanding and is in agreement with Mohs at [facility]. See order encounter for referral. documented in this encounter Plan of Treatment Upcoming Encounters Date Type Department Care Team (Late st Contact Info) Description 05/27/2024 13:00 EDT Office Visit [facility] ENT- Main [address] [address] Vicki Main MD [address] [place] [address] [address] [place] [address] 03/08/2025 11:00 EDT Office Visit [facility] [address] [facility], [place] [address] Cynthia Salinas MD [address] [place] [address] [address] [place] [phone] documented as of this encounter Procedures Procedure Name Priority Date/Time Associated Diagnosis Comments DERMATOLOGY SURGICAL PATHOLOGY Routine 03/02/2024 13:58 EDT Neoplasm of uncertain behavior of skin documented in this encounter Results * DERMATOLOGY SURGICAL PATHOLOGY (03/02/2024 13:58 EDT) Note to Patient The following pathology results have been interpreted by your pathologist and may be available to you before your health provider has had the opportunity to review them. Please allow time for your provider to receive these results and explore management options, if applicable. 03/04/2024 9:16 [facility] Final Diagnosis A. SKIN OF FOREHEAD, RIGHT LATERAL, SHAVE BIOPSY: - Basal cell carcinoma, nodular type. - Basal cell carcinoma present at deep tissue edge. 03/04/2024 9:16 [facility] Attestation By the signature below, the attending physician certifies that they have 1) personally conducted a gross and/or microscopic examination of the described specimen(s), and/or personally interpreted the results of laboratory testing of the described specimen(s), and 2) personally rendered or confirmed the above diagnosis. 03/04/2024 9:16 [facility] at 0916 Microscopic [...] of the islands and stroma. 03/04/2024 9:16 [facility] Clinical History [place] telangiectatic and hemorrhagic crusted low plaque; suspect BCC; clinical diagnosis code: D48.5 03/04/2024 9:16 [facility] Gross Description A. [...] A1. Jen Mayo 03/03/2024 11:04 03/04/2024 9:16 EDT [facility] Performing Lab [facility] 03/04/2024 9:16 EDT [facility] Scanned Images 03/04/2024 9:16 EDT [facility] Tissue SPECIMEN FROM SKIN / Unknown Collection, Other / Unknown 03/02/2024 13:58 EDT 03/02/2024 13:58 EDT Cynthia Salinas MD PATHOLOGY ORDERAB LES [facility] [address] [place] [address] documented in this encounter Visit Diagnoses Diagnosis History of basal cell carcinoma- Primary Personal history of other malignant neoplasm of skin Scar Scar condition and fibrosis of skin Solar purpura (HCC-CMS) Other nonthrombocytopenic purpuras Neoplasm of uncertain behavior of skin Intertrigo Other specified erythematous condition Actinic keratosis Multiple nevi Benign neoplasm of skin, site unspecified documented in this encounter Care Teams Medical Insurance Collector Relationship Specialty Start Date End Date Bianca Prescott [facility] [address] [place] [address] PCP - General 10/30/23 documented as of this encounter
--- OUTSIDE RECORDS SUMMARY | 2024-05-13 22:52 | XMS_ITS | Encounter Summary ---
Author Organization [facility] Address [address] [place] [address] Care Team Providers Care Java Web Services Developer Name Role Phone Kit Burch MD Primary Care Provider [phone] Reason for Visit * Reason Onset Date Comments Referral Request 04/16/2018 Encounter Details Date Type Department Care Team (Late st Contact Info) Description 04/16/2018 Telephone [facility] Cardiology - [address] [address] Milagro Lozano, STACIE [address] [place] [address] Referral Request Social History Tobacco [...] encounter Miscellaneous Notes * Telephone Encounter - NandoCecilie - 04/19/2018 1313 EDT Per referral request, faxed most recent OV note, procedure note, d/c summary and [facility] by [facility] * Telephone Encounter - Che Mart - 04/16/2018 1148 EDT [facility] calling to request that a referral be sent to [facility] # [phone]. States that Milagro Lozano needs to order documented in this encounter Plan of Treatment Upcoming Encounters Date Type Department Care Team (Late st Contact Info) Description 05/27/2024 13:00 EDT Office Visit [facility] ENT- [address] [id number] Vicki Main MD 111 [facility], [facility] 4 [place] [phone] 03/08/2025 11:00 EDT Office Visit [facility] Dermatology [address] [facility], [place] [address] Cynthia Salinas MD 111 [facility], [facility] 5 [place] [address] documented as of this encounter Visit Diagnoses Not on filedocumented in this encounter Care Teams Java Web Services Developer Relationship Specialty Start Date End Date Kit Burch MD [facility] [address] [place] [phone] PCP - General 01/15/18 10/29/23 documented as of this encounter
--- OUTSIDE RECORDS SUMMARY | 2024-05-13 22:52 | XMS_ITS | Encounter Summary ---
Author Organization [facility] Address [address] [place] [address] Care Team Providers Care Set Up Technician Name Role Phone Kit Burch MD Primary Care Provider [phone] Reason for Visit * Reason Comments Post-OP Follow Up Here for follow up, xray today. * Follow Up (Other (Specify in Question)) - Closed Specialty Diagnoses / Procedures Referred By Conthumberto t Referred To Contact Cardiothoracic Surgery Diagnoses Coronary artery disease involving [place] heart with angina pectoris, unspecified vessel or lesion type ([facility]-CMS) Nonrheumatic aortic valve stenosis Olga Lidia Stone MD [address] [place] [phone] [facility] [address] Surgery [address] [place] [address] Referral ID Status Reason Start Date Expiration Date V isits Requested Visits Authorized [id number] Closed Specialty Services Required 02/27/2018 1 1 Encounter Details Date Type Department Care Team (Latest Contact Info) Description 04/08/2018 9:30 EDT Office Visit [facility] Cardiothoracic Surgery - Main [place] [address] [place], [place] [phone] Tyrell Vogt MD Atherosclerosis of [place] coronary artery of [place] heart with angina pectoris (HCC-CMS) (Primary Dx) [...] postprocedural states-Z98.890[ICD-10-CM] I25.119 Atherosclerotic heart disease of [place] coronary artery with unspecified angina pectoris-I25.119[ICD-10-CM] documented [...] Continue your long-term care follow-up with your Dental Manager/Heart Doctor and Primary Care Provider/Doctor as [...] Follow-up with your Primary Care Provider/Doctor or Agent/Diabetes Doctor for your diabetes. Continue to ambulate/walk [...] contact your Primary Care Provider/Doctor or your Dental Manager/Heart Doctor for a referral to the Program with a Stress Test. For those of you who attend the Program at [facility] ([facility]) you can have your Stress Test at the Cardiac Rehabilitation Program. They are located at [address] [place] [address] and their telephone number is . Follow the [employer] Antibiotic Prophylaxis/Prevention Guidelines given and reviewed with you in a handout format today. Bring this with you to your Cardiology/Heart Doctor follow-upvisits in the future so that your Dental Manager/Heart Doctor can inform you of any [...] follow up with Kit Burch and Manuel Drissbrook GOOD 3. Follow-up in this office on a PRN basis. 4. Cardiac rehab per Ms. Lozano [place]OR[place] 5. Opthalmology follow up for her eye floaters. Tyrell Vogt MD 04/08/2018 documented in this encounter Plan of Treatment Upcoming Encounters Date Type Department Care Team (Late st Contact Info) Description 05/27/2024 13:00 EDT Office [place] [address] Vicki Main MD [address] [place] [address], [facility] 4 [place] [phone] 03/08/2025 11:00 EDT Office Visit [facility] Dermatology 130 [facility], [place] [address] Cynthia Salinas MD 111 [facility], [facility] 5 [place] [address] documented as of this encounter Visit Diagnoses Diagnosis Atherosclerosis of [place] coronary artery of [place] heart with angina pectoris (HCC-CMS)- Primary documented [...] 24 added in this encounter Care Teams Set Up Technician Relationship Specialty Start Date End Date Kit Burch MD [facility] [place] [place] [phone] PCP - General 01/15/18 10/29/23 documented as of this encounter
--- OUTSIDE RECORDS SUMMARY | 2024-05-13 22:52 | XMS_ITS | Encounter Summary ---
Author Organization [facility] Address [address] [place] [address] Care Team Providers Care Straightener Name Role Phone Kit Burch MD Primary Care Provider [phone] Reason for Referral * Radiology Services (Routine) - New Request Specialty Diagnoses / Procedures Referred By Contac t Referred To Contact Diagnoses S/P CABG (coronary artery bypass graft) Procedures CHEST PA AND LATERAL Wm Magana PA-C [address] [place] [phone] Referral ID Status Reason Start Date Expiration Date V isits Requested Visits Authorized [id number] New Request 04/07/2018 1 1 Encounter Details Date Type Department Care Team (Late st Contact Info) Description 04/07/2018 Orders Only [facility] Cardiothoracic Surgery - [address] [address] Wm Magana PARaynaC [address] [place] [phone] S/P CABG (coronary artery bypass graft) [...] Info) Description 05/27/2024 13:00 EDT Office Visit [facility] ENT- [address] [address] Vicki Main MD [address] [place] [address] 4 [place] [phone] 03/08/2025 11:00 EDT Office Visit [facility] Dermatology 130 [facility], [place] [address] Cynthia Salinas MD [address] [place] [phone] documented as of this encounter Procedures Procedure [...] AM CLINICAL HISTORY: Z95.1-Presence of aortocoronary bypass [id number]; s/p AVR/CABG TECHNIQUE: Two views of the [...] AM CLINICAL HISTORY: Z95.1-Presence of aortocoronary bypass [id number]; s/p AVR/CABG TECHNIQUE: Two views of the [...] status documented in this encounter Care Teams Straightener Relationship Specialty Start Date End Date Kit Burch MD [address] [place] [phone] PCP - General 01/15/18 10/29/23 documented as of this encounter
--- OUTSIDE RECORDS SUMMARY | 2024-05-13 22:52 | XMS_ITS | Encounter Summary ---
Author Organization [facility] Address [address] [place] [address] Care Team Providers Care Certified Nurse Midwife Name Role Phone Kit Burch MD Primary Care Provider [phone] Reason for Visit * Reason Onset Date Comments Follow-up 05/17/2018 Follow-up 05/24/2018 2nd attempt Encounter Details Date Type Department Care Team (Late st Contact Info) Description 05/17/2018 Telephone [facility] Cardiology - [place] [address] [place] [address] Gilda Bowen, RN Follow-up; Follow-up [...] Dr. De Dios in 2 months at [facility], she will call them for an appointment. * Telephone Encounter - Gilda Bowen RN - 05/24/2018 1033 EDT Lm 2nd attempt [facility], * Telephone Encounter - Gilda Bowen RN - 05/17/2018 0956 EDT Called and left message to return call Liya Anders [[id number]] ??Female - 72 y.o. - 46 ?? [...] Dx: Coronary artery disease involving cor... Order: [id number] ? Order Details View Encounter Lab and Collection Details Routing Result History ?? documented in this encounter Plan of Treatment Upcoming Encounters Date Type Department Care Team (Late st Contact Info) Description 05/27/2024 13:00 EDT Office Visit [facility] ENT- Main [place] [address] [place], [place] [phone] Vicki Main MD 111 [facility] 4 [place] [phone] 03/08/2025 11:00 EDT Office Visit [facility] Dermatology 130 [facility], [place], [place] [address] Cynthia Salinas MD 111 [facility] 5 [place] [address] documented as of this encounter Visit Diagnoses Not on filedocumented in this encounter Care Teams Certified Nurse Midwife Relationship Specialty Start Date End Date Kit Burch MD [address] [facility] [address] [place] [address] PCP - General 01/15/18 10/29/23 documented as of this encounter
--- OUTSIDE RECORDS SUMMARY | 2024-05-13 22:52 | XMS_ITS | Encounter Summary ---
Author Organization [facility] Address [address] [place] [address] Care Team Providers Care Smart Energy Specialist Name Role Phone Kit Burch MD Primary Care Provider [phone] Reason for Referral * Consult (Routine) - Closed Specialty Diagnoses / Procedures Referred By Ana caro Referred To Contact Diagnoses Chronic diastolic congestive heart failure (HCC-CMS) Coronary artery disease involving coronary bypass graft of [place] heart without angina pectoris S/P AVR Milagro Lozano RN [address] [place] [address] Referral ID Status Reason Start Date Expiration Date V isits Requested Visits Authorized [id number] Closed Specialty Services Required 04/14/2018 1 1 Question Answer Reason for Request: s/p CABG and AVR SITE [facility] * Laboratory Services (Routine) - New Request Specialty Diagnoses / Procedures Referred By Ana caro Referred To Contact Diagnoses Coronary artery disease involving coronary bypass graft of [place] heart without angina pectoris Procedures BASIC METABOLIC PANEL (BMP) Milagro Lozano RN [address] [place] [address] Referral ID Status Reason Start Date Expiration Date V isits Requested Visits Authorized [id number] New Request 04/14/2018 1 1 Reason for Visit * Reason Comments Coronary Artery Disease POH s/p CABGx1 Aortic Stenosis Fatigue Encounter Details Date Type Department Care Team (Late st Contact Info) Description 04/14/2018 11:00 EDT Office Visit [facility] Cardiology - [place] [address] [facility] [place] [address] Milagro Lozano RN [address] [place] [address] Coronary artery disease involving coronary bypass graft of [place] heart without angina pectoris (Primary Dx); Chronic [...] visit for CAD s/p CABGx1 (WALTERS-LAD) and AVR(Stollings bovine pericardial valve, size small) February 22, 2018. Pt presented with JONES and decreased activity tolerance. Pt reports some improvement, but continues to be fatigued. Had great difficulty wakening from anesthesia by family report and review in PRISM. Developed isolated episode of afib. EKG 02/25/2018 SR. I do not believe she is in afib today. She was transferred to [facility] on February 27, 2018. Has since been home recovering. She has been grievingthe loss of her SO and a sister in the interim. Does not follow a particular diet. No structured exercise. BP stable. Labs at discharge reveal hgb/hct/plts 05/23/. No lipids in prism. Followed by Dr. De Dios at [facility]. Pt denies chest pain on exertion, orthopnea, paroxysmal nocturnal dyspnea, leg swelling, dizziness and syncope, denies fevers or chills. Pt has been compliant with her medications. Medications side effects include none. Past Medical History: Diagnosis Date ??? Aortic stenosis ??? Depression ??? Endometrial cancer ([facility]) ??? Hyperlipidemia ??? Hypertension ??? Hypothyroid ??? CINTHIA (obstructive sleep apnea) Patient Active Problem List Diagnosis Date Noted ??? Nonrheumatic aortic valve stenosis 02/22/2018 Priority: Medium ??? Coronary artery disease involving [place] heart with angina pectoris ([facility]) 02/22/2018 Priority: Medium Past Surgical History: Procedure [...] reviewed the report of the most recent LHC obtained on 02/08/2018. LHC Findings: 1. HPI [...] further interventions Cardiac Rehab referral to [facility] with Dr. De Dios next week Thirty-five minutes was spent with the patient with greater than 50% of the time spent [id number], providing patient education and coordinating the plan of care. I was supervised by Dr. Cherry who was on site and available. Portions of this document may have been prepared with speech recognition software or keyboard data integration architect techniques. Minor irregularities or keyboarding misprints may be present Milagro Lozano NP Interventional Cardiology documented in this encounter Plan of Treatment Upcoming Encounters Date Type Department Care Team (Late st Contact Info) Description 05/27/2024 13:00 EDT Office Visit [address] [phone] Vicki Main MD [address] [place] [address] 4 [place] [phone] 03/08/2025 11:00 EDT Office Visit [facility] Dermatology 130 [facility], [place] [address] Cynthia Salinas MD [address] [place] [address] 5 [place] [address] Scheduled Orders Name Type Priority Associated Diagnoses Orde r Schedule BASIC METABOLIC PANEL (BMP) Lab Routine Coronary artery disease involving coronary bypass graft of [place] heart without angina pectoris Expected: 04/14/2018 (Approximate), Expires: 04/14/2019 Scheduled Referrals Name Type Priority Associated Diagnoses Order Schedule AMB CONS/FOLLOW UP CARDIAC REHABILITATION Outpatient Referral Routine Chronic diastolic congestive heart failure (HCC-CMS) Coronary artery disease involving coronary bypass graft of [place] heart without angina pectoris S/P AVR Ordered: 04/14/2018 documented as of this encounter Results * (ABNORMAL) NT PRO BNP (04/14/2018 11:59 EDT) NT Pro BNP 1,060(H) <300 pg/ml 04/14/2018 16:42 [facility] Comment: Reference Range: [...] City/State/[facility] Co de Phone Number [facility] [address] [place] [address] * (ABNORMAL) COMPLETE BLOOD COUNT (04/14/2018 11:59 EDT) WBC 10.40 4.0 - 12.4 K/cmm 04/14/2018 16:31 [facility] RBC 4.09 3.86 - 5.04 M/cmm 04/14/2018 16:31 [facility] Hemoglobin 13.9 11.6 - 15.2 gm/dl 04/14/2018 16:31 [facility] HCT 41.4 34.9 - 44.4 % 04/14/2018 16:31 [facility] MCV 101(H) 81 - 98 fl 04/14/2018 16:31 [facility] MCH 34.0(H) 26.7 - 33.3 pg 04/14/2018 16:31 [facility] MCHC 33.6 32.1 - 35.9 gm/dl 04/14/2018 16:31 [facility] RDW-CV 12.6 <14.7 % 04/14/2018 16:31 EDT [facility] RDW-SD 47.5 <50.4 fl 04/14/2018 16:31 EDT [facility] PLT 178 141 - 377 K/cmm 04/14/2018 16:31 EDT [facility] MPV 11.8 9.5 - 12.7 fl 04/14/2018 16:31 EDT [facility] Blood specimen (specimen) BLOOD SPECIMEN / Unknown 04/14/2018 11:59 EDT 04/14/2018 16:00 EDT Milagro Lozano LINE HAUL DRIVER & PF4 ORD ERABLES [facility] [address] [place] [address] documented in this encounter Visit Diagnoses Diagnosis Coronary artery disease involving coronary bypass graft of [place] heart without angina pectoris- Primary Chronic diastolic congestive heart failure ([facility]) Chronic diastolic heart failure S/P AVR Heart [...] 10/30/2023 added in this encounter Care Teams Smart Energy Specialist Relationship Specialty Start Date End Date Kit Burch MD [facility] [employer] [address] [place] [phone] PCP - General 01/15/18 10/29/23 documented as of this encounter
--- OUTSIDE RECORDS SUMMARY | 2024-05-13 22:52 | XMS_ITS | Encounter Summary ---
Author Organization [facility] Address [address] [place] [address] Care Team Providers Care Treasury Agent Name Role Phone Kit Burch MD Primary Care Provider [phone] Encounter Details Date Type Department Care Team (Late st Contact Info) Description 03/12/2018 Historical Results Only [facility] - Main [place] [address] [place] [address] Ishmeal Kilgore MD [address] [place] [address] [address] [place] [address] Social History Tobacco Use Types [...] Info) Description 05/27/2024 13:00 EDT Office Visit [facility] ENT- [address] [phone] Vicki Main MD [address] [place] [address] 4 [place] [phone] 03/08/2025 11:00 EDT Office Visit [facility] Dermatology [address] [place] [address], [place], [place] [address] Cynthia Salinas MD [address] [place] [address] 5 [place] [address] documented as of this encounter Procedures Procedure Name Priority Date/Time Associated Diagnosis Comments BACTERIAL CULTURE/SMEAR, RESPIRATORY Routine 03/12/2018 17:37 EDT documented in this encounter Results * BACTERIAL CULTURE/SMEAR, RESPIRATORY (03/12/2018 17:37 EDT) GRAM STAIN - [facility] TWO SWABS RECEIVED FOR CULTURE AND GRAM STAIN 03/12/2018 18:31 EDT [facility] BACTERIA SEEN - [facility] NO 03/12/2018 18:31 EDT [facility] WBC RARE 03/12/2018 18:31 EDT [facility] USUAL SKIN ARNIE - [facility] USF 03/15/2018 11:30 EDT [facility] QUANT - [facility] BROTH ONLY 03/15/2018 11:30 EDT [facility] 03/12/2018 17:3 7 EDT 03/12/2018 17:37 EDT Ishmael Kilgore MD MICROBIOLOGY - GENERAL ORDERABLES [facility] documented in this encounter Visit Diagnoses Not on filedocumented in this encounter Care Teams Treasury Agent Relationship Specialty Start Date End Date Kit Burch MD [facility] [address] [facility] [address] [place] [phone] PCP - General 01/15/18 10/29/23 documented as of this encounter
--- OUTSIDE RECORDS SUMMARY | 2024-05-13 22:52 | XMS_ITS | Encounter Summary ---
Author Organization [facility] Address [address] [place] [address] Care Team Providers Care Elevator Constructor Electric Name Role Phone Kit Burch MD Primary Care Provider [phone] Reason for Visit * Reason Onset Date Comments Referral Request 08/31/2019 Encounter Details Date Type Department Care Team (Late st Contact Info) Description 08/31/2019 Telephone [facility] Dermatology [address] [address] Enzo Ervin MD [address] [place] [address], [address] [place] [address] Referral Request Social History Tobacco [...] the fact that she flew back from [place]. She wants to cancel her appointment with [...] Info) Description 05/27/2024 13:00 EDT Office Visit [facility] ENT- Main [address] [address] Vicki Main MD 111 [facility], [facility] 4 [place] [address] 03/08/2025 11:00 EDT Office Visit [facility] Dermatology 130 [facility], [place], [place] [address] Cynthia Salinas MD 111 [facility], [facility] 5 [place] [phone] documented as of this encounter Visit Diagnoses Not on filedocumented in this encounter Care Teams Elevator Constructor Electric Relationship Specialty Start Date End Date Kit Burch MD [address] [place] [address] [address] [place] [phone] PCP - General 01/15/18 10/29/23 documented as of this encounter
--- OUTSIDE RECORDS SUMMARY | 2024-05-13 22:52 | XMS_ITS | Encounter Summary ---
Author Organization [facility] Address [address] [place] [address] Care Team Providers Care Wood Craftsman Name Role Phone Kit Burch MD Primary Care Provider [phone] [facility] Primary Care Provider [phone] Encounter Details Date Type Department Care Team (Late st Contact Info) Description 03/06/2022 Lab Requisition [facility] Pathology & Laboratory Medicine - [address] [id number] Outr Resulting Lab, Provider Social History Tobacco [...] Info) Description 05/27/2024 13:00 EDT Office Visit [facility] ENT- [address] [address] Vicki Main MD [address] [place] [address] 4 [place] [address] 03/08/2025 11:00 EDT Office Visit [facility] Dermatology [address] [facility], [place], [place] [address] Cynthia Salinas MD [address] [place] [address] 5 [place] [address] documented as of this encounter Procedures Procedure Name Priority Date/Time Associated Diagnosis Comments SPEP WITH IMMUNOTYPING PERFORMABLE Today 03/06/2022 11:27 EDT SPEP WITH IMMUNOTYPING Routine 03/06/2022 11:27 EDT PROTEIN, TOTAL Today 03/06/2022 11:27 EDT documented in this encounter Results * (ABNORMAL) SPEP WITH IMMUNOTYPING PERFORMABLE (03/06/2022 11:27 EDT) Albumin % 55.0(L) 55.8 - 66.1 % 03/07/2022 13:09 EDT [facility] Albumin g/dL 4.1 3.6 - 5.2 g/dL 03/07/2022 13:09 EDT [facility] Alpha-1 % 3.8 2.9 - 4.9 % 03/07/2022 13:09 EDT [facility] Alpha-1 g/dL 0.30 0.15 - 0.40 g/dL 03/07/2022 13:09 [facility] Alpha-2 % 11.5 7.1 - 11.8 % 03/07/2022 13:09 [facility] Alpha-2 g/dL 0.90 0.50 - 1.00 g/dL 03/07/2022 13:09 [facility] Beta % 12.1 8.4 - 13.1 % 03/07/2022 13:09 [facility] Beta g/dL 0.90 0.60 - 1.20 g/dL 03/07/2022 13:09 [facility] Gamma % 17.6 11.1 - 18.8 % 03/07/2022 13:09 [facility] Gamma g/dL 1.30 0.60 - 1.60 g/dL 03/07/2022 13:09 [facility] SPEP Comment No apparent monoclonal protein seen on serum electrophoresis 03/07/2022 13:09 [facility] Comment:See scanned/suppleme ntary report. Immunotyping , Serum Current Interpretation: Negative for monoclonal immunoglobulins. Reviewed by: Jed Duong MD 03/07/2022 1055 03/07/2022 13:09 [facility] Total Protein 7.4 6.3 - 8.2 g/dL 03/07/2022 13:09 [facility] Blood VENOUS BLOOD / Unknown 03/06/2022 11:27 EDT 03/06/2022 21:26 EDT Provider Outr Resulting Lab CHEMISTRY & BLOOD GAS ORDERABLES [facility] [address] [place] [address] * PROTEIN, TOTAL (03/06/2022 11:27 EDT) Blood VENOUS BLOOD / Unknown 03/06/2022 11:27 EDT 03/06/2022 21:26 EDT Provider Outr Resulting Lab CHEMISTRY & BLOOD GAS ORDERABLES [facility] [address] [place] [address] documented in this encounter Visit Diagnoses Not on filedocumented in this encounter Care Teams Wood Craftsman Relationship Specialty Start Date End Date Kit Burch MD [address] [place] [address] PCP - General 01/15/18 10/29/23 [facility] [address] [place] [address] PCP - General 10/30/23 documented as of this encounter
--- OUTSIDE RECORDS SUMMARY | 2024-05-13 22:52 | XMS_ITS | Encounter Summary ---
Author Organization [facility] Address [address] [place] [address] Care Team Providers Care Healthcare Receptionist Name Role Phone Kit Burch MD Primary Care Provider [phone] Reason for Visit * Reason Onset Date Comments Results 04/19/2018 Encounter Details Date Type Department Care Team (Late st Contact Info) Description 04/19/2018 Telephone [facility] Cardiology - [address] [address] Gilda Bowen RN Results Social [...] learning barriers. Patient did her f/u with vendor management specialist near her home * Telephone Encounter - [...] as scheduled. Thank you, Milagro Lozano DNP CONSTRUCTION PROJECT MANAGER-C ? Associated Results ? BASIC METABOLIC PANEL (BMP) Status: Final result Visible to patient: No (Not Released) Order: [id number] ? Notes Recorded by Milagro Lozano NP [...] as scheduled. Thank you, Milagro Lozano DNP CONSTRUCTION PROJECT MANAGER-C ?? Ref Range & Units 5d ago [...] Info) Description 05/27/2024 13:00 EDT Office Visit [facility]- [address] [phone] Vicki Main MD 111 [facility], [facility] 4 [place] [address] 03/08/2025 11:00 EDT Office Visit [facility] Dermatology 130 [facility], [place], [place] [address] Cynthia Salinas MD [address] [facility], [facility] 5 [place] [phone] documented as of this encounter Visit Diagnoses Not on filedocumented in this encounter Care Teams Healthcare Receptionist Relationship Specialty Start Date End Date Marcin, Kit G, MD [address] [place] [address] PCP - General 01/15/18 10/29/23 documented as of this encounter
--- OUTSIDE RECORDS SUMMARY | 2024-05-13 22:52 | XMS_ITS | Encounter Summary ---
Author Organization [facility] Address [address] [place] [address] Care Team Providers Care Boat Loader Name Role Phone Kit Burch MD Primary Care Provider [phone] Encounter Details Date Type Department Care Team (Late st Contact Info) Description 04/14/2018 Results Only [facility] Cardiology - [address] [address] Milagro Lozano RN [address] [place] [address] Social History Tobacco Use Types [...] 05/27/2024 13:00 EDT Office Visit [facility] ENT- [facility] [address] [place], [place] [address] Vicki Main MD 111 [facility], [facility] 4 [place] [address] 03/08/2025 11:00 EDT Office Visit [facility] Dermatology 130 [facility], [place], [place] [address] Cynthia Salinas MD [address] [facility], [facility] 5 [place] [address] documented as of this encounter Procedures Procedure Name Priority Date/Time Associated Diagnosis Comments BASIC METABOLIC PANEL (BMP) Routine 04/14/2018 11:59 EDT documented in this encounter Results * BASIC METABOLIC PANEL (BMP) (04/14/2018 11:59 EDT) Sodium 142 136 - 145 mEq/L 04/14/2018 16:34 [facility] Potassium 4.1 3.5 - 5.0 mEq/L 04/14/2018 16:34 [facility] Chloride 103 96 - 110 mEq/L 04/14/2018 16:34 [facility] CO2 31 22 - 32 mEq/L 04/14/2018 16:34 [facility] BUN 20 10 - 26 mg/dl 04/14/2018 16:34 [facility] Creatinine 0.71 0.52 - 1.04 mg/dl 04/14/2018 16:34 [facility] GFR, Calculated 86 >60 ml/min/1.7 3m2 04/14/2018 16:34 [facility] Comment: eGFR calculated using CKD-EPI equation for non Americans. Multiply eGFR by 1.16 for Americans. Calcium 9.5 8.5 - 10.5 mg/dl 04/14/2018 16:34 EDT [facility] Calculated Calcium 9.5 8.5 - 10.5 mg/dl 04/14/2018 16:34 EDT [facility] Glucose, Serum 95 70 - 100 mg/dl 04/14/2018 16:34 EDT [facility] Fasting? Unknown 04/14/2018 16:00 EDT [facility] BLOOD SPECIMEN / Unknown 04/14/2018 11:59 EDT 04/14/2018 16:00 EDT Milagro Lozano RN CHEMISTRY & BLOOD GA S ORDERABLES [facility] [address] [place] [address] documented in this encounter Visit Diagnoses Not on filedocumented in this encounter Care Teams Boat Loader Relationship Specialty Start Date End Date Kit Burch MD [facility] [address] [place] [phone] PCP - General 01/15/18 10/29/23 documented as of this encounter
--- OUTSIDE RECORDS SUMMARY | 2024-05-13 22:52 | XMS_ITS | Encounter Summary ---
Author Organization [facility] Address [address] [place] [address] Care Team Providers Care Cra Officer Name Role Phone Kit Burch MD Primary Care Provider [phone] Reason for Visit * Reason Comments Basal Cell Carcinoma nose Encounter Details Date Type Department Care Team (Late st Contact Info) Description 12/29/2019 10:00 EDT Office Visit [facility] Dermatology 5th [address] [address] Enzo Ervin MD [address] [place] [address], [address] [place] [phone] Basal cell carcinoma (BCC) of skin of [...] discomfort. Tylenol, taken as directed by the shelf drier operator, will help relieve pain. If Tylenol does [...] 11:31 Enzo Ervin MD Chief of Dermatology [facility] MOHS OPERATIVE REPORT Patient Name: Liya Anders Date of Service: December 29, 2019 Surgeon: Enzo Ervin MD I personally performed the procedure Enzo Ervin MD Chief of Dermatology [facility] Citizenship Instructor: Abigail Davey PA-C Case #: [id number] [...] handed personally by the doctor to the technicians and trades workers for frozen sectioning. The tissue was embedded [...] procedure Enzo Ervin MD Chief of Dermatology [facility] Citizenship Instructor: Abigail Davey PA-C Preoperative Diagnosis: Defect following [...] Info) Description 05/27/2024 13:00 EDT Office Visit [facility] ENT- [address] [phone] Vicki Main MD [address] [place] [address] 4 [place] [address] 03/08/2025 11:00 EDT Office Visit [facility] Dermatology [address] [facility], [place] [address] Cynthia Salinas MD [address] [place] [address] 5 [place] [address] documented as of this encounter Procedures Procedure Name Priority Date/Time Associated Diagnosis Comments PROCEDURE REPORTS - SCANNED 01/09/2020 12:48 EDT documented in this encounter Results * PROCEDURE REPORTS - SCANNED (01/09/2020 12:48 EDT) 01/09/2020 12:4 8 EDT Scan 2 Chaplain PROCEDURE/MINOR NANCY GICAL ORDERABLES documented in this encounter Visit Diagnoses Diagnosis Basal cell carcinoma (BCC) of skin of nose- Primary documented in this encounter Care Teams Cra Officer Relationship Specialty Start Date End Date Kit Burch MD [facility] [address] [place] [phone] PCP - General 01/15/18 10/29/23 documented as of this encounter
--- OUTSIDE RECORDS SUMMARY | 2024-05-13 22:52 | XMS_ITS | Encounter Summary ---
Author Organization [facility] Address [address] [place] [address] Care Team Providers Care Marketing Assistant Manager Name Role Phone Kit Burch MD Primary Care Provider [phone] Encounter Details Date Type Department Care Team (Latest Contact Info) Description 04/14/2018 11:40 EDT Procedure visit [facility] Endocrinology - [facility] [address] [place], [place] [phone] Milagro Lozano RN [address] [place], [place] [phone] Phlebotomy, [facility] Endo Coronary artery disease involving coronary bypass graft of [place] heart without angina pectoris; Chronic diastolic congestive heart failure ([facility]) Discharge Disposition: Auto Discharge Social History Tobacco [...] Info) Description 05/27/2024 13:00 EDT Office Visit [facility] ENT- Main [address] [address] Vicki Main MD [address] [place] [address], [facility] 4 [place] [address] 03/08/2025 11:00 EDT Office Visit [facility] Dermatology [address] [place] [address], [place] [address] Cynthia Salinas MD 111 [facility], [facility] 5 [place] [address] documented as of this encounter Procedures Procedure Name Priority Date/Time Associated Diagnosis Comments COMPLETE BLOOD COUNT Routine 04/14/2018 11:59 EDT Coronary artery disease involving coronary bypass graft of [place] heart without angina pectoris NT PRO BNP Routine 04/14/2018 11:59 EDT Coronary artery disease involving coronary bypass graft of [place] heart without angina pectoris Chronic diastolic congestive heart failure ([facility] documented in this encounter Results * (ABNORMAL) COMPLETE BLOOD COUNT (04/14/2018 11:59 EDT) WBC 10.40 4.0 - 12.4 K/cmm 04/14/2018 16:31 [facility] RBC 4.09 3.86 - 5.04 M/cmm 04/14/2018 16:31 [facility] Hemoglobin 13.9 11.6 - 15.2 gm/dl 04/14/2018 16:31 [facility] HCT 41.4 34.9 - 44.4 % 04/14/2018 16:31 [facility] MCV 101(H) 81 - 98 fl 04/14/2018 16:31 [facility] MCH 34.0(H) 26.7 - 33.3 pg 04/14/2018 16:31 [facility] MCHC 33.6 32.1 - 35.9 gm/dl 04/14/2018 16:31 [facility] RDW-CV 12.6 <14.7 % 04/14/2018 16:31 [facility] RDW-SD 47.5 <50.4 fl 04/14/2018 16:31 [facility] PLT 178 141 - 377 K/cmm 04/14/2018 16:31 [facility] MPV 11.8 9.5 - 12.7 fl 04/14/2018 16:31 [facility] Blood specimen (specimen) BLOOD SPECIMEN / Unknown 04/14/2018 11:59 EDT 04/14/2018 16:00 EDT Milagro Lozano RN HEMATOLOGY & PF4 ORD ERABLES [facility] [address] [place] [address] * (ABNORMAL) NT PRO BNP (04/14/2018 11:59 EDT) NT Pro BNP 1,060(H) <300 pg/ml 04/14/2018 16:42 EDT [facility] Comment: Reference Range: [...] RN CHEMISTRY & BLOOD GA S ORDERABLES [facility] [address] [place] [address] documented in this encounter Visit Diagnoses Diagnosis Coronary artery disease involving coronary bypass graft of gamb[place] heart without angina pectoris Chronic diastolic congestive heart failure (HCC-CMS) Chronic diastolic heart failure documented in this encounter Orders Lab Orders Without Results Count Last Ordered D ate First Ordered Date BASIC METABOLIC PANEL (BMP) 1 04/14/2018 documented in this encounter Care Teams Marketing Assistant Manager Relationship Specialty Start Date End Date Kit Burch MD [facility] [address] [place] [address] PCP - General 01/15/18 10/29/23 documented as of this encounter
--- OUTSIDE RECORDS SUMMARY | 2024-05-13 22:52 | XMS_ITS | Encounter Summary ---
Author Organization [facility] Address [address] [place] [address] Care Team Providers Care Die Maker Trim Name Role Phone Kit Burch MD Primary Care Provider [phone] Reason for Visit * Reason Onset Date Comments Update 03/23/2018 Encounter Details Date Type Department Care Team (Late st Contact Info) Description 03/23/2018 Telephone [facility] Cardiothoracic Surgery - [facility] [address] [place] [address] Sharla Clements, RN [address] [place] [address] Update Social History Tobacco Use Types Packs/Day [...] Encounter - Sharla Clements RN - 03/23/2018 1455 EDT CARDIAC SURGERY NURSING DISCHARGE FOLLOW-UP CALL Surgery: CABG AVR Surgeon: Dr. Vogt Patient has reviewed Discharge Instructions / After Visit Summary given at Discharge from Hospital:No OR has Inpatient Rehabilitation Discharge Instructions and reviewed Yes [facility]. THE FOLLOWING INFORMATION HAS BEEN REVIEWED WITH Patient and [place] AT THIS TIME FOLLOWS: Home Health Is Home Health following patient? Yes Pain Rating Tool: Post-Operative Pain/Discomfort: No Intensity: 0 Location: NA Is pain medication relieving pain? NA Discharge Medications Reviewed: Yes Antibiotic Prophylaxis Handout from [employer] reviewed with patient or significantother? [...] Surgery Patients per Discharge Video reviewed: NA (REFRESH):[id number]} Work: Reviewed No work for 6 - [...] for their Cardiac Surgery Follow-up in our [facility] Office with Dr. Villafana appointment confirmed at this time for location, time for check in and chest x-ray check in time. Cardiology Follow-up Appointment made (2-4 weeks or as per Discharge Instructions): If [facility] Entry Specialist email cardschedule to have them make a follow-up appointment and they will call the patient orask social secretary to do this. If Private Practice Entry Specialist ask patient to call and make appointment: [...] Description 05/27/2024 13:00 EDT Office Visit [facility] ENT- [address] [phone] Vicki Main MD 111 [facility] 4 [place] [phone] 03/08/2025 11:[address] [facility] Dermatology [address] [place] [address], [place] [address] Cynthia Salinas MD [address] [place] [address] 5 [place] [phone] documented as of this encounter Visit Diagnoses Not on filedocumented in this encounter Care Teams Die Maker Trim Relationship Specialty Start Date End Date Kit Burch MD [facility] [address] [place] [phone] PCP - General 01/15/18 10/29/23 documented as of this encounter
--- OUTSIDE RECORDS SUMMARY | 2024-05-13 22:53 | XMS_ITS | Encounter Summary ---
Author Organization [facility] Address [address] [place] [address] Care Team Providers Care Vest Presser Name Role Phone Kit Burch MD Primary Care Provider [phone] Encounter Details Date Type Department Care Team (Latest Contact Info) Description 02/08/2018 9:05 EDT - 02/08/2018 15:45 EDT Hospital Encounter [facility] Cardiovascular Unit [address] [place] [address] Yonatan Arellano MD [address] [place] [address] [place] [phone] Coronary artery disease involving [place] heart with angina pectoris, unspecified vessel or [...] stretcher independently. Patient greeted and identified per [facility] medical center policy. Allergies and procedure verified [...] Allergies Local Pharmacy [facility] [facility], [place] [address] [facility] [phone] Cardiac History: Stress Test? No Reason for Cath: aortic stenosis Pre op AVR Anginal equivalent:: SOB/JONES, fatigue Cardiac Procedures: no Cardiac surgery: no Medical/Surgical History: Patient has a past medical history of Aortic stenosis; Depression; Endometrial cancer ([facility]); Hyperlipidemia; Hypertension; Hypothyroid; and CINTHIA (obstructive [...] [facility]: No Patient/family instructed that they will need a designated special client bus driver if they are discharged on the dayof the procedure. Medications: Medication list: Patient/family instructed to bring medication list with them on the day of the procedure. Anticoagulants/Antiplatelets: Takes Aspirin 81 mg daily Anti-Anginal meds: PAULETTE VALDES RN * Bella Valdes RN - 01/28/2018 1227 EDT Images from the original note were not included. [facility] [address] [place] [phone] Madiha Nickerson, Here is important information regarding your upcoming Cardiac Catheterization procedure. Feel free to call with any questions or concerns. We will ensure we have prior authorization from your insurance company, if needed, for your procedure and notify you if there are any issues. Please make sure you copy and paste this link into your web browser in order to read it. [email or web address] Procedure Date: February 08, 2018 Check in [...] go home you will need a designated special client bus driver or a responsible adult to accompany [...] any elevator to the 3rd floor registration. Manager Cargo parking is also available at the Main Entrance. The registration staff will direct you to the Cardiovascular Unit waiting room. Please check in with the radiology receptionist and they will notify of your [...] to call anyone listed below with questions. [facility] Cath Client Project Coordinator - [phone] Shireen Valdes academic dean Testing Nurse- [phone] Please make sure you copy and paste this link into your web browser in order to read it Patients & Visitors Information [email or web address] [email or web address] [email or web address] Information [email or web address] documented in this encounter H&P Notes * Mynor Harrell - 02/07/2018 4468 EDT Cardiology H&P Admit Date: 02/08/2018 PCP: Kit Burch CC: [facility] HPI: Troy Silva is a 72 [...] severe , HLD, HTN, hypothyroid here for [facility] for preop eval for SAVR Plan: Left heart catheterization to evaluate coronary anatomy and hemodynamics No noted contra-indications to LHC or YANIRA PCI Mynor Harrell, PGY-4 Procurement Internship Associated attestation - Yonatan Arellano MD - 02/08/2018 1214 EDT I have personally seen and examined the patient and reviewed the attached note and agree with the general findings unless noted otherwise. Yonatan Arellano MD Cardiology Attending documented in this encounter Procedure Notes * Yonatan Aerllano MD - 02/08/2018 1214 EDT Dear Doctors [...] cm. Procedure: She was brought to [facility] Cardiac Catheterization Laboratory for the procedure: Diagnostic [...] review with family Yonatan Arellano MD PagerNumber: [phone] 02/08/2018 12:14 documented in this encounter Consult Notes * Tyrell Vogt MD - 02/08/2018 1243 EDT Cardiothoracic Surgery Consult Chief Complaint: Shortness [...] Info) Description 05/27/2024 13:00 EDT Office Visit [facility] ENT- Main [place] [address] [place], [place] [phone] Vicki Main MD [address] [facility], [address] [place] [phone] 03/08/2025 11:[address] [facility] Dermatology [address] [facility], [place] [address] Cynthia Salinas MD [address] [facility], [facility] [address] [place] [address] documented as of this encounter Procedures Procedure Name Priority Date/Time Associated Diagnosis Comments ECG REPORT - SCANNED 02/11/2018 8:56 EDT ECG REPORT - SCANNED 02/11/2018 8:42 EDT ECG REPORT - SCANNED 02/11/2018 8:42 EDT PRE-OP TYPE AND SCREEN Routine 02/08/2018 13:53 EDT Coronary artery disease involving [place] heart with angina pectoris, unspecified vessel or lesion type (HCC-CMS) Nonrheumatic aortic valve stenosis MRSA PCR Routine 02/08/2018 13:39 EDT Coronary artery disease involving [place] heart with angina pectoris, unspecified vessel or [...] 8:56 EDT) 02/11/2018 8:56 EDT Scan 2 Artificial Intelligence Specialist PROCEDURE/MINOR NANCY GICAL ORDERABLES * ECG REPORT - SCANNED (02/11/2018 8:42 EDT) 02/11/2018 8:42 EDT Scan 2 Artificial Intelligence Specialist PROCEDURE/MINOR NANCY GICAL ORDERABLES * ECG REPORT - SCANNED (02/11/2018 8:42 EDT) 02/11/2018 8:42 EDT Scan 2 Artificial Intelligence Specialist PROCEDURE/MINOR NANCY GICAL ORDERABLES * PRE-OP BLOOD BANK DRAW (02/08/2018 13:53 EDT) Pre-Op Blood Bank Lab Draw SPECIMEN RECEIVED ACCEPTABLE 02/08/2018 16:46 EDT [facility] BLOOD SPECIMEN / Unknown 02/08/2018 13:53 EDT 02/08/2018 15:01 EDT Tyrell Vogt MD BLOOD BANK TESTS [facility] [address] [place] [address] * MRSA PCR (02/08/2018 13:39 EDT) Result No Staphylococcus aureus detected by PCR. 02/08/2018 23:02 EDT [facility] Specimen of unknown material (specimen) NASAL ROUTE / Unknown 02/08/2018 13:39 EDT 02/08/2018 16:15 EDT Tyrell Vogt MD MICROBIOLOGY - GE NERAL ORDERABLES [facility] [address] [place] [address] * EKG 12-LEAD (02/08/2018 9:53 EDT) 02/08/2018 9:53 EDT Narrative [facility] - 02/11/2018 8:51 EDT ? [facility] ? Test Date: ?2018-02-08 Pat Name: ? TROY SILVA ? Department: ?? CVU ? Room: ? CVU36 Gender: ? Female ? Test Tech: ?? [id number] : ?1945 ? Requested By: [facility] Order Number: [id number] ? Reading MD: ?? BOB MARCE MD ? Measurements Intervals ?[place] ? Rate: ? 91 ? P: ?4 [place]: ? 173 ?QRS: ?19 QRSD: ? 71 [...] Bob Zheng Jr., MD - 02/11/2018 [facility] Test Date: 2018-02-08 Pat Name: TROY SILVA Department: CVU Room: [facility] Gender: Female Test Tech: [id number] : 1945 Requested By: ELEAZAR HERNANDEZ Order Number: [id number] Reading MD: BOB ZHENG MD Measurements Intervals [place] Rate: 91 P: 4 [place]: 173 QRS: 19 QRSD: 71 T: 123 QT: 359 QTc: 443 Interpretive Statements SINUS RHYTHM ST DEVIATION AND MODERATE T-WAVE ABNORMALITY, CONSIDER LATERAL ISCHEMIA No previous ECG available for comparison I reviewed the tracing and have either agreed or edited the findings inthis report. Electronically Signed On 02-11-2018 8:51:25 EDT by BOB SHAH. Authorizing Provider Result Meghan Hartley MD CARDIAC ECG ORDERABL ES [facility] * PROTIME (02/08/2018 9:46 EDT) Pro Time 11.8 10.3 - 13.4 secs 02/08/2018 10:44 [facility] I.N.R. 1.0 0.9 - 1.1 Ratio 02/08/2018 10:44 [facility] Comment: Moderate Intensity Coumadin INR = 2.0-3.0 Adjustments in anticoagulant therapy dose should be based upon the INR and NOT the Pro Time. Blood specimen (specimen) BLOOD SPECIMEN / Unknown 02/08/2018 9:46 EDT 02/08/2018 10:15 EDT Marcela Hartley MD HEMATOLOGY & PF4 ORD ERABLES [facility] [address] [place] [address] * (ABNORMAL) COMPLETE BLOOD COUNT (02/08/2018 9:46 EDT) WBC 10.71 4.0 - 12.4 K/cmm 02/08/2018 11:45 [facility] RBC 3.82(L) 3.86 - 5.04 M/cmm 02/08/2018 11:45 [facility] Hemoglobin 13.1 11.6 - 15.2 gm/dl 02/08/2018 11:45 [facility] HCT 38.4 34.9 - 44.4 % 02/08/2018 11:45 [facility] MCV 101(H) 81 - 98 fl 02/08/2018 11:45 [facility] MCH 34.3(H) 26.7 - 33.3 pg 02/08/2018 11:45 [facility] MCHC 34.1 32.1 - 35.9 gm/dl 02/08/2018 11:45 [facility] RDW-CV 13.1 <14.7 % 02/08/2018 11:45 [facility] RDW-SD 47.8 <50.4 fl 02/08/2018 11:45 EDT [facility] PLT 243 141 - 377 K/cmm 02/08/2018 11:45 EDT [facility] MPV 11.4 9.5 - 12.7 fl 02/08/2018 11:45 EDT [facility] Blood specimen (specimen) BLOOD SPECIMEN / Unknown 02/08/2018 9:46 EDT 02/08/2018 10:15 EDT Marcela Hartley MD HEMATOLOGY & PF4 ORD ERABLES Performing Organization Address [facility] Co de Phone Number [facility] [address] [place] [address] * ELECTROLYTES (02/08/2018 9:46 EDT) Sodium 140 136 - 145 mEq/L 02/08/2018 10:38 T [facility] Potassium 4.0 3.5 - 5.0 mEq/L 02/08/2018 10:38 [facility] Chloride 103 96 - 110 mEq/L 02/08/2018 10:38 T [facility] CO2 29 22 - 32 mEq/L 02/08/2018 10:38 T [facility] Blood specimen (specimen) BLOOD SPECIMEN / Unknown 02/08/2018 9:46 EDT 02/08/2018 10:15 EDT Marcela Hartley MD CHEMISTRY & BLOOD GA S ORDERABLES Performing Organization Address [facility] Co de Phone Number [facility] [address] [place] [address] * CREATININE (02/08/2018 9:46 EDT) Creatinine 0.69 0.52 - 1.04 mg/dl 02/08/2018 10:38 T [facility] GFR, Calculated 88 >60 ml/min/1.7 3m2 02/08/2018 10:38 T [facility] Comment: eGFR calculated using CKD-EPI equation for non Americans. Multiply eGFR by 1.16 for Americans. Blood specimen (specimen) BLOOD SPECIMEN / Unknown 02/08/2018 9:46 EDT 02/08/2018 10:15 EDT Marcela Hartley MD CHEMISTRY & BLOOD GA S ORDERABLES [facility] [address] [place] [address] * BUN (02/08/2018 9:46 EDT) BUN 15 10 - 26 mg/dl 02/08/2018 10:38 EDT [facility] Blood specimen (specimen) BLOOD SPECIMEN / Unknown 02/08/2018 9:46 EDT 02/08/2018 10:15 EDT Marcela Hartley MD CHEMISTRY & BLOOD GA S ORDERABLES Performing Organization Address City/[facility] Co de Phone Number [facility] [address] [place] [address] documented in this encounter Visit Diagnoses Diagnosis Coronary artery disease involving [place] heart with angina pectoris, unspecified vessel or lesion type ([facility])- Primary Nonrheumatic aortic valve stenosis Aortic valve [...] 1000 ([place] - Prov ider: Jess May, STACIE)1240 (Rate Documented - Provider: Keely Luciano, RN)1440 (Completed - Provider: Keely Luciano, STACIE) PRN Medication Order 02/06/2018 02/07/2018 02/08/2018 acetaminophen [...] Devyn Borrero RN)1127 (Given - Provider: Devyn Borrero, RN)1130 (Given - Provider: Devyn Borrero RN)1136 (Given - Provider: Devyn Borrero, RN)1138 (Given - Provider: Devyn Borrero RN)1143 [...] Devyn Borrero RN)1129 (Given - Provider: Devyn Borrero RN)1140 (Given - Provider: Devyn Borrero RN) [...] 02/08/2018 documented in this encounter Care Teams Vest Presser Relationship Specialty Start Date End Date Kit Burch MD [facility] [address] [place] [phone] PCP - General 01/15/18 10/29/23 documented as of this encounter
--- OUTSIDE RECORDS SUMMARY | 2024-05-13 22:53 | XMS_ITS | Encounter Summary ---
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 Phone Number [facility] [address] [place] [address] * CREATININE (02/26/2018 5:20 EDT) Creatinine 0.58 0.52 - 1.04 mg/dl 02/26/2018 7:28 EDT [facility] GFR, Calculated 93 >60 ml/min/1.7 3m2 02/26/2018 7:28 EDT [facility] Comment: eGFR calculated using CKD-EPI equation for non Americans. Multiply eGFR by 1.16 for Americans. Blood specimen (specimen) BLOOD SPECIMEN / Unknown 02/26/2018 5:20 EDT 02/26/2018 6:57 EDT Narrative Authorizing Provider Result Meghan Beasley MD CHEMISTRY & BLOOD GA S ORDERABLES Performing Organization Address [facility]/ZIP Co de Phone Number [facility] [address] [place] [address] * BUN (02/26/2018 5:20 EDT) BUN 22 10 - 26 mg/dl 02/26/2018 7:28 EDT [facility] Blood specimen (specimen) BLOOD SPECIMEN / Unknown 02/26/2018 5:20 EDT 02/26/2018 6:57 EDT Narrative Authorizing Provider Result Meghan Beasley MD CHEMISTRY & BLOOD GA S ORDERABLES Performing Organization Address [facility] Co de Phone Number [facility] [address] [place] [address] * (ABNORMAL) ELECTROLYTES (02/26/2018 5:20 EDT) Sodium 135(L) 136 - 145 mEq/L 02/26/2018 7:28 EDT [facility] Potassium 4.1 3.5 - 5.0 mEq/L 02/26/2018 7:28 EDT [facility] Chloride 102 96 - 110 mEq/L 02/26/2018 7:28 EDT [facility] CO2 27 22 - 32 mEq/L 02/26/2018 7:28 EDT [facility] Blood specimen (specimen) BLOOD SPECIMEN / Unknown 02/26/2018 5:20 EDT 02/26/2018 6:57 EDT Adryan Beasley MD CHEMISTRY & BLOOD GA S ORDERABLES Performing Organization Address [facility] Co de Phone Number [facility] [address] [place] [address] * (ABNORMAL) GLUCOSE, GLUCOMETER (02/25/2018 21:16 EDT) Glucose, Fingerstick 152(H) 70 - 100 mg/dl 02/25/2018 21:21 EDT [facility] [employer] [place] ID [id number] 02/25/2018 21:21 EDT [facility] Comment:Test Performed by [facility] BLOOD SPECIMEN / Unknown 02/25/2018 21:16 EDT 02/25/2018 21:21 EDT Tyrell Vela MD CHEMISTRY & BLOOD GAS ORDERABLES Performing Organization Address [facility] Co de Phone Number [facility] [address] [place] [address] * (ABNORMAL) GLUCOSE, GLUCOMETER (02/25/2018 16:44 EDT) Glucose, Fingerstick 185(H) 70 - 100 mg/dl 02/25/2018 16:46 EDT [facility] [employer] ID [id number] 02/25/2018 16:46 EDT [facility] Comment:Test Performed by [facility] Services BLOOD SPECIMEN / Unknown 02/25/2018 16:44 EDT 02/25/2018 16:46 EDT Tyrell Vela MD CHEMISTRY & BLOOD GAS ORDERABLES [facility] [address] [place] [address] * CHEST PA AND LATERAL (02/25/2018 13:18 [...] 70 - 100 mg/dl 02/25/2018 12:18 EDT [facility] [employer] [place] [id number] 02/25/2018 12:18 EDT [facility] Comment:Test Performed by [facility] BLOOD SPECIMEN / Unknown 02/25/2018 12:12 EDT 02/25/2018 12:18 EDT Tyrell Vela MD CHEMISTRY & BLOOD GAS ORDERABLES Performing Organization Address [facility]/ZIP Co de Phone Number [facility] [address] [place] [address] * (ABNORMAL) GLUCOSE, GLUCOMETER (02/25/2018 9:19 EDT) [facility] Glucose, Fingerstick 154(H) 70 - 100 mg/dl 02/25/2018 9:32 EDT [facility] [employer] ID [id number] 02/25/2018 9:32 EDT [facility] Comment:Test Performed by [facility] BLOOD SPECIMEN / Unknown 02/25/2018 9:19 EDT 02/25/2018 9:32 EDT Tyrell Vela MD CHEMISTRY & BLOOD GAS ORDERABLES Performing Organization Address City/[facility]/ZIP Co de Phone Number [facility] [address] [place] [address] * HEPARIN PF4 IGG AB (HIT), S (02/25/2018 8:07 EDT) [facility] HIT NITO 0.099 <0.400 OD 02/26/2018 18:43 EDT [facility] Interpretation Negative Negative 02/26/2018 18:43 EDT [facility] Comment (Note) 02/26/2018 18:43 EDT [facility] Comment: Patient serum has no [...] This test has been modified from the rpg programmer analyst's instructions. Its performance characteristics were determined by [facility] in a manner consistent with CLIA requirements. This test has not been cleared or approved by the U.S. Food and Drug Administration. Performed or Referred by: [facility] [place], [address] [place] [address], Lab Dir: Jak Cleveland II, M.D., Ph.D. Blood specimen (specimen) BLOOD SPECIMEN / Unknown 02/25/2018 8:07 EDT 02/25/2018 8:13 EDT Nacho Scales MD HEMATOLOGY & PF4 ORD ERABLES Performing Organization Address [facility] Co de Phone Number [facility] [address] [place] [address] * GLUCOSE, GLUCOMETER (02/25/2018 8:06 EDT) Glucose, Fingerstick 78 70 - 100 mg/dl 02/25/2018 8:11 EDT [facility] [employer] [place] ID [id number] 02/25/2018 8:11 EDT [facility] Comment:Test Performed by [facility] BLOOD SPECIMEN / Unknown 02/25/2018 8:06 EDT 02/25/2018 8:11 EDT Tyrell Vela MD CHEMISTRY & BLOOD GAS ORDERABLES Performing Organization Address [facility] de Phone Number [facility] [address] [place] [address] * EKG 12-LEAD (02/25/2018 7:33 EDT) 02/25/2018 7:33 EDT Narrative [facility] - 02/26/2018 10:48 EDT ? [facility] ? Test Date: ?2018-02-25 Pat Name: ? TROY ANDERS ? Department: ?? [address] ? Room: ? SB365 Gender: ? Female ? Archivist Political History: ?? : ?1945 ? Requested By: AVE VALDES Order Number: [id number] ? Reading MD: ?? MARIFER BARKLEY MD ? Measurements Intervals ?Warren ? Rate: ? 103 ?P: ? AK: ? 0 ?QRS: ?-5 QRSD: ? 137 ?T: ?151 QT: ? 407 ? QTc: ?534 ? Interpretive Statements SINUS RHYTHM LEFT BUNDLE BRANCH BLOCK Wide complex tachycardia, likely supraventricular I reviewed the tracing and have either agreed or edited the findings in this report. Electronically Signed On 02-26-2018 10:48:51 EDT by MARIFER BARKLEY MD. Procedure Note Marifer Barkley MD - 02/26/2018 [facility] Test Date: 2018-02-25 Pat Name: TROY ANDERS Department: [address] Room: SB5 Gender: Female Archivist Political History: : 1945 Requested By: AVE VALDES Order Number: [id number] Reading MD: MARIFER BARKLEY MD Measurements Intervals Warren Rate: 103 P: AK: 0 QRS: -5 QRSD: 137 T: 151 QT: 407 QTc: 534 Interpretive Statements SINUS RHYTHM LEFT BUNDLE BRANCH BLOCK Wide complex tachycardia, likely supraventricular I reviewed the tracing and have either agreed or edited the findings inthis report. Electronically Signed On 02-26-2018 10:48:51 EDT by MARIFER HERNÁNDEZ. Marquita Jackson MD CARDIAC EC G ORDERABLES Performing Organization Address [facility] Co de Phone Number [facility] * GLUCOSE, GLUCOMETER (02/25/2018 6:21 EDT) Glucose, Fingerstick 93 70 - 100 mg/dl 02/25/2018 6:22 EDT [facility] [employer] [place] ID [id number] 02/25/2018 6:22 EDT [facility] Comment:Test Performed by [facility] BLOOD SPECIMEN / Unknown 02/25/2018 6:21 EDT 02/25/2018 6:22 EDT Tyrell Vela MD CHEMISTRY & BLOOD GAS ORDERABLES Performing Organization Address [facility]/ZIP Co de Phone Number [facility] [address] [place] [address] * (ABNORMAL) GLUCOSE, GLUCOMETER (02/25/2018 4:53 EDT) Glucose, Fingerstick 103(H) 70 - 100 mg/dl 02/25/2018 4:55 EDT [facility] [employer] ID [id number] 02/25/2018 4:55 EDT [facility] Comment:Test Performed by [facility] BLOOD SPECIMEN / Unknown 02/25/2018 4:53 EDT 02/25/2018 4:55 EDT Tyrell Vela MD CHEMISTRY & BLOOD GAS ORDERABLES Performing Organization Address [facility] Co de Phone Number [facility] [address] [place] [address] * (ABNORMAL) GLUCOSE, GLUCOMETER (02/25/2018 2:31 EDT) Glucose, Fingerstick 117(H) 70 - 100 mg/dl 02/25/2018 2:32 EDT [facility] [employer] ID [id number] 02/25/2018 2:32 EDT [facility] Comment:[facility] BLOOD SPECIMEN / Unknown 02/25/2018 2:31 EDT 02/25/2018 2:32 EDT Tyrell Vela MD CHEMISTRY & BLOOD GAS ORDERABLES Performing Organization Address [facility]/ZIP Co de Phone Number [facility] [address] [place] [address] * (ABNORMAL) CALCIUM (02/25/2018 2:15 EDT) Calcium 8.0(L) 8.5 - 10.5 mg/dl 02/25/2018 2:57 EDT [facility] Calculated Calcium 9.2 8.5 - 10.5 mg/dl 02/25/2018 2:57 EDT [facility] Blood specimen (specimen) BLOOD SPECIMEN / Unknown 02/25/2018 2:15 EDT 02/25/2018 2:23 EDT Marquita Jackson MD CHEMISTRY & BLOOD GAS ORDERABLES Performing Organization Address City/[facility]/ZIP Co de Phone Number [facility] [address] [place] [address] * MAGNESIUM (02/25/2018 2:15 EDT) Magnesium 2.1 1.7 - 2.8 mg/dl 02/25/2018 2:57 EDT [facility] Blood specimen (specimen) BLOOD SPECIMEN / Unknown 02/25/2018 2:15 EDT 02/25/2018 2:23 EDT Marquita Jackson MD CHEMISTRY & BLOOD GAS ORDERABLES Performing Organization Address [facility] de Phone Number [facility] [address] [place] [address] * (ABNORMAL) COMPLETE BLOOD COUNT (02/25/2018 2:15 EDT) WBC 13.19(H) 4.0 - 12.4 K/cmm 02/25/2018 2:46 [facility] RBC 2.95(L) 3.86 - 5.04 M/cmm 02/25/2018 2:46 [facility] Hemoglobin 10.0(L) 11.6 - 15.2 gm/dl 02/25/2018 2:46 [facility] HCT 29.2(L) 34.9 - 44.4 % 02/25/2018 2:46 [facility] MCV 99(H) 81 - 98 fl 02/25/2018 2:46 [facility] MCH 33.9(H) 26.7 - 33.3 pg 02/25/2018 2:46 [facility] MCHC 34.2 32.1 - 35.9 gm/dl 02/25/2018 2:46 [facility] RDW-CV 13.5 <14.7 % 02/25/2018 2:46 [facility] RDW-SD 48.9 <50.4 fl 02/25/2018 2:46 EDT [facility] PLT 79(L) 141 - 377 K/cmm 02/25/2018 2:46 EDT [facility] MPV 12.4 9.5 - 12.7 fl 02/25/2018 2:46 EDT [facility] Blood specimen (specimen) BLOOD SPECIMEN / Unknown 02/25/2018 2:15 EDT 02/25/2018 2:23 EDT Adryan Beasley MD HEMATOLOGY & PF4 ORD ERABLES Performing Organization Address [facility] Co de Phone Number [facility] [address] [place] [address] * CREATININE (02/25/2018 2:15 EDT) Creatinine 0.63 0.52 - 1.04 mg/dl 02/25/2018 2:57 EDT [facility] GFR, Calculated 91 >60 ml/min/1.7 3m2 02/25/2018 2:57 EDT [facility] Comment: eGFR calculated using CKD-EPI equation for non Americans. Multiply eGFR by 1.16 for Americans. Blood specimen (specimen) BLOOD SPECIMEN / Unknown 02/25/2018 2:15 EDT 02/25/2018 2:23 EDT Adryan Beasley MD CHEMISTRY & BLOOD GA S ORDERABLES Performing Organization Address [facility] Co de Phone Number [facility] [address] [place] [address] * BUN (02/25/2018 2:15 EDT) BUN 20 10 - 26 mg/dl 02/25/2018 2:57 EDT [facility] Blood specimen (specimen) BLOOD SPECIMEN / Unknown 02/25/2018 2:15 EDT 02/25/2018 2:23 EDT Adryan Beasley MD CHEMISTRY & BLOOD GA S ORDERABLES Performing Organization Address [facility] de Phone Number [facility] [address] [place] [address] * (ABNORMAL) ELECTROLYTES (02/25/2018 2:15 EDT) Sodium 135(L) 136 - 145 mEq/L 02/25/2018 2:57 EDT [facility] Potassium 4.1 3.5 - 5.0 mEq/L 02/25/2018 2:57 EDT [facility] Chloride 105 96 - 110 mEq/L 02/25/2018 2:57 EDT [facility] CO2 26 22 - 32 mEq/L 02/25/2018 2:57 EDT [facility] Blood specimen (specimen) BLOOD SPECIMEN / Unknown 02/25/2018 2:15 EDT 02/25/2018 2:23 EDT Adryan Beasley MD CHEMISTRY & BLOOD GA S ORDERABLES Performing Organization Address [facility] de Phone Number [facility] [address] [place] [address] * EKG 12-LEAD (02/25/2018 2:01 EDT) 02/25/2018 2:01 EDT Narrative [facility] EKG - 02/26/2018 10:49 EDT ? [facility] ? Test Date: ?2018-02-25 Pat Name: ? TROY SHIRA ? Department: ?? [address] ? Room: ? SB365 Gender: ? Female ? Archivist Political History: ?? [id number] : ?1945 ? Requested By: DANEJONH Witt Order Number: [id number] ? Reading : ?? MARIFER BARKLEY MD ? Measurements Intervals ?Warren ? Rate: ? 88 ? P: ?28 AK: ? 198 ?QRS: ?-4 QRSD: ? 140 ?T: ?160 QT: ? 378 ? QTc: ?458 ? Interpretive Statements SINUS RHYTHM WITH FREQUENT SUPRAVENTRICULAR PREMATURE COMPLEXES Left bundle branch block I reviewed the tracing and have either agreed or edited the findings in this report. Electronically Signed On 02-26-2018 10:49:28 EDT by MARIFER BARKLEY MD. Procedure Note Marifer Barkley MD - 02/26/2018 [facility] Test Date: 2018-02-25 Pat Name: TROY ANDERS Department: [address] Room: SB365 Gender: Female Archivist Political History: [id number] : 1945 Requested By: DANE Witt Order Number: [id number] Reading MD: MARIFER BARKLEY MD Measurements Intervals [place] Rate: 88 P: 28 AK: 198 QRS: -4 QRSD: 140 T: 160 QT: 378 QTc: 458 Interpretive Statements SINUS RHYTHM WITH FREQUENT SUPRAVENTRICULAR PREMATURE COMPLEXES Left bundle branch block I reviewed the tracing and have either agreed or edited the findings inthis report. Electronically Signed On 02-26-2018 10:49:28 EDT by MARIFER HERNÁNDEZ. Tyrell Vela MD CARDIAC ECG ORDER LEAH Performing Organization Address City/[facility]/ZIP Co de Phone Number [facility] E[facility] * (ABNORMAL) GLUCOSE, GLUCOMETER (02/25/2018 0:59 EDT) Glucose, Fingerstick 111(H) 70 - 100 mg/dl 02/25/2018 0:59 EDT [facility] [employer] [place] ID [id number] 02/25/2018 0:59 EDT [facility] Comment:[facility] BLOOD SPECIMEN / Unknown 02/25/2018 0:59 EDT 02/25/2018 1:00 EDT Tyrell Vela MD CHEMISTRY & BLOOD GAS ORDERABLES [facility] [address] [place] [address] * (ABNORMAL) GLUCOSE, GLUCOMETER (02/24/2018 23:03 EDT) Glucose, Fingerstick 128(H) 70 - 100 mg/dl 02/25/2018 0:28 EDT [facility] [employer] ID [id number] 02/25/2018 0:28 EDT [facility] Comment:Test Performed by [facility] BLOOD SPECIMEN / Unknown 02/24/2018 23:03 EDT 02/25/2018 0:28 EDT Tyrell Vela MD CHEMISTRY & BLOOD GAS ORDERABLES [facility] [address] [place] [address] * (ABNORMAL) GLUCOSE, GLUCOMETER (02/24/2018 20:57 EDT) Glucose, Fingerstick 146(H) 70 - 100 mg/dl 02/24/2018 21:08 EDT [facility] [employer] ID [id number] 02/24/2018 21:08 EDT [facility] Comment:Test Performed by [facility] BLOOD SPECIMEN / Unknown 02/24/2018 20:57 EDT 02/24/2018 21:08 EDT Tyrell Vela MD CHEMISTRY & BLOOD GAS ORDERABLES Performing Organization Address [facility]/ZIP Co de Phone Number [facility] [address] [place] [address] * (ABNORMAL) GLUCOSE, GLUCOMETER (02/24/2018 19:49 EDT) Glucose, Fingerstick 136(H) 70 - 100 mg/dl 02/24/2018 19:50 EDT [facility] [employer] ID [id number] 02/24/2018 19:50 EDT [facility] Comment:Test Performed by [facility] BLOOD SPECIMEN / Unknown 02/24/2018 19:49 EDT 02/24/2018 19:50 EDT Tyrell Vela MD CHEMISTRY & BLOOD GAS ORDERABLES Performing Organization Address City/[facility]/ZIP Co de Phone Number [facility] [address] [place] [address] * EKG 12-LEAD (02/24/2018 17:49 EDT) 02/24/2018 17:4 9 EDT Narrative [facility] EKG - 03/01/2018 14:57 EDT ? [facility] ? Test Date: ?2018-02-24 Pat Name: ? TROY ANDERS ? Department: ?? [address] ? Room: ? SB365 Gender: ? Female ? Archivist Political History: ?? : ?1945 ? Requested By: SCALES NACHO Order Number: [id number] ? Reading MD: ?? MAXIMILIAN VALADEZ MD ? Measurements Intervals ?Warren ? Rate: ? 88 ? P: ?28 AK: ? 182 ?QRS: ?-3 QRSD: ? 140 ?T: ?157 QT: ? 391 ? QTc: ?475 ? Interpretive Statements SINUS RHYTHM LEFT BUNDLE BRANCH BLOCK Compared to ECG 02/23/2018 05:22:52 Left bundle-branch block now present Intraventricular conduction delay no longer present I reviewed the tracing and have either agreed or edited the findings in this report. Electronically Signed On 03-01-2018 14:57:39 EDT by MAXIMIILAN VALADEZ MD. Procedure Note Maximilian Valadez MD - 03/01/2018 [facility] Test Date: 2018-02-24 Pat Name: TROY ANDERS Department: [address] Room: SB365 Gender: Female Archivist Political History: : 1945 Requested By: YORDY GRIFFITH Order Number: [id number] Reading MD: MAXIMILIAN VALADEZ MD Measurements Intervals [place] Rate: 88 P: 28 AK: 182 QRS: -3 QRSD: 140 T: 157 [...] Nacho Scales MD CARDIAC ECG ORDERABL ES [facility] EKG * (ABNORMAL) GLUCOSE, GLUCOMETER (02/24/2018 17:20 EDT) Glucose, Fingerstick 112(H) 70 - 100 mg/dl 02/24/2018 17:25 EDT [facility] [employer] ID [id number] 02/24/2018 17:25 EDT [facility] Comment:Test Performed by [facility] BLOOD SPECIMEN / Unknown 02/24/2018 17:20 EDT 02/24/2018 17:25 EDT Tyrell Vela MD CHEMISTRY & BLOOD GAS ORDERABLES [facility] [address] [place] [address] * (ABNORMAL) GLUCOSE, GLUCOMETER (02/24/2018 15:39 EDT) Glucose, Fingerstick 131(H) 70 - 100 mg/dl 02/24/2018 15:40 EDT [facility] [employer] ID [id number] 02/24/2018 15:40 EDT [facility] Comment:Test Performed by [facility] BLOOD SPECIMEN / Unknown 02/24/2018 15:39 EDT 02/24/2018 15:40 EDT Tyrell Vela MD CHEMISTRY & BLOOD GAS ORDERABLES Performing Organization Address [facility] Center/[facility] Co de Phone Number [facility] [address] [place] [address] * (ABNORMAL) GLUCOSE, GLUCOMETER (02/24/2018 14:29 EDT) Glucose, Fingerstick 164(H) 70 - 100 mg/dl 02/24/2018 14:34 EDT [facility] [employer] [place] [id number] 02/24/2018 14:34 EDT [facility] Comment:Test Performed by Nu rsing Services BLOOD SPECIMEN / Unknown 02/24/2018 14:29 EDT 02/24/2018 14:34 EDT Tyrell Vela MD CHEMISTRY & BLOOD GAS ORDERABLES [facility] [address] [place] [address] * PTT (02/24/2018 13:13 EDT) PTT 27 26 - 37 secs 02/24/2018 14:25 EDT [facility] Blood specimen (specimen) BLOOD SPECIMEN / Unknown 02/24/2018 13:13 EDT 02/24/2018 13:53 EDT Nacho Scales MD HEMATOLOGY & PF4 ORD ERABLES Performing Organization Address [facility] de Phone Number [facility] [address] [place] [address] * (ABNORMAL) PROTIME (02/24/2018 13:13 EDT) Pro Time 13.6(H) 10.3 - 13.4 secs 02/24/2018 14:24 EDT [facility] I.N.R. 1.2(H) 0.9 - 1.1 Ratio 02/24/2018 14:24 EDT [facility] Comment: Moderate Intensity Coumadin INR = 2.0-3.0 Adjustments in anticoagulant therapy dose should be based upon the INR and NOT the Pro Time. Blood specimen (specimen) BLOOD SPECIMEN / Unknown 02/24/2018 13:13 EDT 02/24/2018 13:53 EDT Nacho Scales MD HEMATOLOGY & PF4 ORD ERABLES Performing Organization Address [facility] Co de Phone Number [facility] [address] [place] [address] * (ABNORMAL) ALBUMIN (02/24/2018 13:13 EDT) Albumin 2.4(L) 3.4 - 4.9 g/dl 02/24/2018 14:25 EDT [facility] Blood specimen (specimen) BLOOD SPECIMEN / Unknown 02/24/2018 13:13 EDT 02/24/2018 13:53 EDT Nacho Scales MD CHEMISTRY & BLOOD GA S ORDERABLES Performing Organization Address [facility] Co de Phone Number [facility] [address] [place] [address] * BILIRUBIN DIRECT/INDIRECT (02/24/2018 13:13 EDT) Conjugated Bilirubin 0.0 0.0 - 0.3 mg/dl 02/24/2018 14:25 EDT [facility] Unconjugated Bilirubin 0.4 0.0 - 1.1 mg/dl 02/24/2018 14:25 EDT [facility] Blood specimen (specimen) BLOOD SPECIMEN / Unknown 02/24/2018 13:13 EDT 02/24/2018 13:53 EDT Nacho Scales MD CHEMISTRY & BLOOD GA S ORDERABLES Performing Organization Address [facility] de Phone Number [facility] [address] [place] [address] * (ABNORMAL) PROTEIN, TOTAL (02/24/2018 13:13 EDT) Total Protein 4.8(L) 6.3 - 8.2 g/dl 02/24/2018 14:25 EDT [facility] Blood specimen (specimen) BLOOD SPECIMEN / Unknown 02/24/2018 13:13 EDT 02/24/2018 13:53 EDT Nacho Scales MD CHEMISTRY & BLOOD GA S ORDERABLES Performing Organization Address [facility] Co de Phone Number [facility] [address] [place] [address] * ALKALINE PHOSPHATASE (02/24/2018 13:13 EDT) Total Alkaline Phosphatase 81 38 - 126 U/L 02/24/2018 14:25 EDT [facility] Blood specimen (specimen) BLOOD SPECIMEN / Unknown 02/24/2018 13:13 EDT 02/24/2018 13:53 EDT Nacho Scales MD CHEMISTRY & BLOOD GA S ORDERABLES Performing Organization Address [facility]/State/ZIP Co de Phone Number [facility] [address] [place] [address] * AMMONIA (02/24/2018 13:13 EDT) Ammonia 20 <34 umol/L 02/24/2018 13:49 EDT [facility] Blood specimen (specimen) BLOOD SPECIMEN / Unknown 02/24/2018 13:13 EDT 02/24/2018 13:29 EDT Nacho Scales MD CHEMISTRY & BLOOD GA S ORDERABLES Performing Organization Address City/[facility] Co de Phone Number [facility] [address] [place] [address] * ALT (02/24/2018 13:13 EDT) ALT 37 <53 U/L 02/24/2018 14:25 EDT [facility] Blood specimen (specimen) BLOOD SPECIMEN / Unknown 02/24/2018 13:13 EDT 02/24/2018 13:53 EDT Nacho Scales MD CHEMISTRY & BLOOD GA S ORDERABLES Performing Organization Address [facility]/ZIP Co de Phone Number [facility] [address] [place] [address] * (ABNORMAL) AST (02/24/2018 13:13 EDT) AST 50(H) 15 - 46 U/L 02/24/2018 14:25 EDT [facility] Blood specimen (specimen) BLOOD SPECIMEN / Unknown 02/24/2018 13:13 EDT 02/24/2018 13:53 EDT Nacho Scales MD CHEMISTRY & BLOOD GA S ORDERABLES Performing Organization Address [facility]/ZIP Co de Phone Number [facility] [address] [place] [address] * (ABNORMAL) GLUCOSE, GLUCOMETER (02/24/2018 12:28 EDT) Glucose, Fingerstick 103(H) 70 - 100 mg/dl 02/24/2018 12:30 EDT [facility] [employer] ID [id number] 02/24/2018 12:30 EDT [facility] Comment:Test Performed by Nu ing Services BLOOD SPECIMEN / Unknown 02/24/2018 12:28 EDT 02/24/2018 12:30 EDT Tyrell Vela MD CHEMISTRY & BLOOD GAS ORDERABLES Performing Organization Address [facility] de Phone Number [facility] [address] [place] [address] * ECG REPORT - SCANNED (02/24/2018 12:00 EDT) 02/24/2018 12:0 0 EDT Scan 2 Senior Support Analyst PROCEDURE/MINOR NANCY GICAL ORDERABLES * URINE CULTURE IF UA POSITIVE - NON POCT URINALYSIS ONLY (02/24/2018 11:58 EDT) Culture if Indicated Culture not indicated by urinalysis results. 02/24/2018 13:15 EDT [facility] Urine specimen (specimen) TOPOGRAPHY UNKNOWN / Unknown 02/24/2018 11:58 EDT 02/24/2018 12:20 EDT Nacho Scales MD MICROBIOLOGY - GENER AL ORDERABLES Performing Organization Address [facility] Co de Phone Number [facility] [address] [place] [address] * (ABNORMAL) UA, CHEMICAL AND SEDIMENT ANALYSIS (DIPSTICK AND MICROSCOPIC) (02/24/2018 11:58 EDT) Color, UA Yellow 02/24/2018 13:15 EDT [facility] Clarity, UA Clear 02/24/2018 13:15 EDT [facility] Glucose, UA Neg Neg 02/24/2018 13:15 EDT [facility] Bilirubin, UA Neg Neg 02/24/2018 13:15 EDT [facility] Ketones, UA Neg Neg 02/24/2018 13:15 [facility] Refractometer SG,Urine 1.042(H) 1.001 - 1.035 02/24/2018 13:15 [facility] Comment: Results greater than 1.035 suggest possible interference from glucose or radiographic dye. Blood, UA Neg Neg 02/24/2018 13:15 [facility] pH, UA 6.0 4.6 - 8.0 02/24/2018 13:15 [facility] Protein, UA 1+(A) Neg 02/24/2018 13:15 [facility] Urobilinogen, UA Normal Normal E.U./dl 02/24/2018 13:15 [facility] Nitrite, UA Neg Neg 02/24/2018 13:15 [facility] Leuk Esterase Neg Neg 02/24/2018 13:15 [facility] UA Method Used 02/24/2018 10:39 [facility] Comment: Testing performed using [employer] [id number]. Urine RBC Count Automated 3 to 10(A) 0 to 2 /HPF 02/24/2018 13:15 [facility] Urine WBC Count Automated 0 to 3 0 to 3 /HPF 02/24/2018 13:15 [facility] Urine Squamous Epithelial Cell Count, Automated Few(A) None seen /LPF 02/24/2018 13:15 [facility] Urine Hyaline Casts, Automated < or = 10 < or = 10 /LPF 02/24/2018 13:15 [facility] Urine Bacteria Count, Automated None seen None seen 02/24/2018 13:15 [facility] UA Comment Sediment results 02/24/2018 13:15 [facility] Comment: are unreliable on urines unrefrig >2hrs or refrig >8hrs. Urine specimen (specimen) URINE / Unknown 02/24/2018 11:58 EDT 02/24/2018 12:20 EDT Nacho Scales MD URINALYSIS ORDERABLE S [facility] [address] [place] [address] * (ABNORMAL) GLUCOSE, GLUCOMETER (02/24/2018 10:29 EDT) Glucose, Fingerstick 107(H) 70 - 100 mg/dl 02/24/2018 10:31 EDT [facility] [employer] ID [id number] 02/24/2018 10:31 EDT [facility] Comment:Test Performed by Nu rsing Services BLOOD SPECIMEN / Unknown 02/24/2018 10:29 EDT 02/24/2018 10:31 EDT Tyrell Vela MD CHEMISTRY & BLOOD GAS ORDERABLES Performing Organization Address City/[facility]/ZIP Co de Phone Number [facility] [address] [place] [address] * GLUCOSE, GLUCOMETER (02/24/2018 8:28 EDT) Glucose, Fingerstick 100 70 - 100 mg/dl 02/24/2018 8:30 EDT [facility] [employer] ID [id number] 02/24/2018 8:30 EDT [facility] Comment:Test Performed by Nu rsing Services BLOOD SPECIMEN / Unknown 02/24/2018 8:28 EDT 02/24/2018 8:30 EDT Tyrell Vela MD CHEMISTRY & BLOOD GAS ORDERABLES [facility] [address] [place] [address] * (ABNORMAL) GLUCOSE, GLUCOMETER (02/24/2018 6:34 EDT) Glucose, Fingerstick 114(H) 70 - 100 mg/dl 02/24/2018 6:39 EDT [facility] [employer] ID [id number] 02/24/2018 6:39 EDT [facility] Comment:Test Performed by Nu rsing Services BLOOD SPECIMEN / Unknown 02/24/2018 6:34 EDT 02/24/2018 6:39 EDT Tyrell Vela MD CHEMISTRY & BLOOD GAS ORDERABLES Performing Organization Address City/[facility]/ZIP Co de Phone Number [facility] [address] [place] [address] * SMEAR REVIEW (02/24/2018 5:30 EDT) Smear scan only: Slide was examined by a technologist to verify the WBC and/or platelet count. 02/24/2018 8:11 EDT [facility] Comment:LARGE PLATELETS PRES ENT BLOOD SPECIMEN / Unknown 02/24/2018 5:30 EDT 02/24/2018 6:08 EDT Adryan Beasley MD HEMATOLOGY & PF4 ORD ERABLES Performing Organization Address City/[facility] Co de Phone Number [facility] [address] [place] [address] * (ABNORMAL) COMPLETE BLOOD COUNT (02/24/2018 5:30 EDT) WBC 15.67(H) 4.0 - 12.4 K/cmm 02/24/2018 8:10 [facility] RBC 2.88(L) 3.86 - 5.04 M/cmm 02/24/2018 6:43 [facility] Hemoglobin 9.9(L) 11.6 - 15.2 gm/dl 02/24/2018 6:43 [facility] HCT 29.9(L) 34.9 - 44.4 % 02/24/2018 6:43 [facility] MCV 104(H) 81 - 98 fl 02/24/2018 6:43 [facility] MCH 34.4(H) 26.7 - 33.3 pg 02/24/2018 6:43 [facility] MCHC 33.1 32.1 - 35.9 gm/dl 02/24/2018 6:43 [facility] RDW-CV 13.9 <14.7 % 02/24/2018 6:43 [facility] RDW-SD 53.1(H) <50.4 fl 02/24/2018 6:43 EDT [facility] PLT 81(L) 141 - 377 K/cmm 02/24/2018 8:10 EDT [facility] MPV 12.4 9.5 - 12.7 fl 02/24/2018 8:10 EDT [facility] Blood specimen (specimen) BLOOD SPECIMEN / Unknown 02/24/2018 5:30 EDT 02/24/2018 6:08 EDT Adryan Beasley MD HEMATOLOGY & PF4 ORD ERABLES Performing Organization Address [facility] de Phone Number [facility] [address] [place] [address] * CREATININE (02/24/2018 5:30 EDT) Creatinine 0.75 0.52 - 1.04 mg/dl 02/24/2018 6:46 EDT [facility] GFR, Calculated 80 >60 ml/min/1.7 3m2 02/24/2018 6:46 EDT [facility] Comment: eGFR calculated using CKD-EPI equation for non Americans. Multiply eGFR by 1.16 for Americans. Blood specimen (specimen) BLOOD SPECIMEN / Unknown 02/24/2018 5:30 EDT 02/24/2018 6:08 EDT Narrative Authorizing Provider Result Meghan Beasley MD CHEMISTRY & BLOOD GA S ORDERABLES Performing Organization Address [facility] Co de Phone Number [facility] [address] [place] [address] * BUN (02/24/2018 5:30 EDT) BUN 21 10 - 26 mg/dl 02/24/2018 6:46 EDT [facility] Blood specimen (specimen) BLOOD SPECIMEN / Unknown 02/24/2018 5:30 EDT 02/24/2018 6:08 EDT Narrative Authorizing Provider Result Meghan Beasley MD CHEMISTRY & BLOOD GA S ORDERABLES [facility] [address] [place] [address] * ELECTROLYTES (02/24/2018 5:30 EDT) Sodium 139 136 - 145 mEq/L 02/24/2018 6:46 EDT [facility] Potassium 4.0 3.5 - 5.0 mEq/L 02/24/2018 6:46 EDT [facility] Chloride 106 96 - 110 mEq/L 02/24/2018 6:46 EDT [facility] CO2 28 22 - 32 mEq/L 02/24/2018 6:46 EDT [facility] Blood specimen (specimen) BLOOD SPECIMEN / Unknown 02/24/2018 5:30 EDT 02/24/2018 6:08 EDT Adryan Beasley MD CHEMISTRY & BLOOD GA S ORDERABLES Performing Organization Address City/[facility]/ZIP Co de Phone Number [facility] [address] [place] [address] * (ABNORMAL) GLUCOSE, GLUCOMETER (02/24/2018 4:23 EDT) Glucose, Fingerstick 111(H) 70 - 100 mg/dl 02/24/2018 4:27 EDT [facility] [employer] ID [id number] 02/24/2018 4:27 EDT [facility] Comment:Test Performed by Nu ing Services BLOOD SPECIMEN / Unknown 02/24/2018 4:23 EDT 02/24/2018 4:27 EDT Tyrell Vela MD CHEMISTRY & BLOOD GAS ORDERABLES [facility] [address] [place] [address] * (ABNORMAL) GLUCOSE, GLUCOMETER (02/24/2018 2:23 EDT) Glucose, Fingerstick 124(H) 70 - 100 mg/dl 02/24/2018 2:44 EDT [facility] [employer] ID [id number] 02/24/2018 2:44 EDT [facility] Comment:Test Performed by Nu rsing Services BLOOD SPECIMEN / Unknown 02/24/2018 2:23 EDT 02/24/2018 2:44 EDT Tyrell Vela MD CHEMISTRY & BLOOD GAS ORDERABLES Performing Organization Address City/[facility]/ZIP Co de Phone Number [facility] [address] [place] [address] * (ABNORMAL) GLUCOSE, GLUCOMETER (02/24/2018 1:22 EDT) Glucose, Fingerstick 115(H) 70 - 100 mg/dl 02/24/2018 6:26 EDT [facility] [employer] ID [id number] 02/24/2018 6:26 EDT [facility] Comment:Test Performed by rsing Services BLOOD SPECIMEN / Unknown 02/24/2018 1:22 EDT 02/24/2018 6:26 EDT Tyrell Vela MD CHEMISTRY & BLOOD GAS ORDERABLES Performing Organization Address City/[facility]/ZIP Co de Phone Number [facility] [address] [place] [address] * (ABNORMAL) GLUCOSE, GLUCOMETER (02/24/2018 0:18 EDT) Glucose, Fingerstick 103(H) 70 - 100 mg/dl 02/24/2018 0:23 EDT [facility] [employer] ID [id number] 02/24/2018 0:23 EDT [facility] Comment:Test Performed by Nu rsing Services BLOOD SPECIMEN / Unknown 02/24/2018 0:18 EDT 02/24/2018 0:23 EDT Tyrell Vela MD CHEMISTRY & BLOOD GAS ORDERABLES [facility] [address] [place] [address] * (ABNORMAL) GLUCOSE, GLUCOMETER (02/23/2018 23:07 EDT) Glucose, Fingerstick 112(H) 70 - 100 mg/dl 02/23/2018 23:07 EDT [facility] [employer] ID [id number] 02/23/2018 23:07 EDT [facility] Comment:[facility] BLOOD SPECIMEN / Unknown 02/23/2018 23:07 EDT 02/23/2018 23:08 EDT Tyrell Vela MD CHEMISTRY & BLOOD GAS ORDERABLES Performing Organization Address City/[facility] Co de Phone Number [facility] [address] [place] [address] * (ABNORMAL) GLUCOSE, GLUCOMETER (02/23/2018 22:00 EDT) Glucose, Fingerstick 117(H) 70 - 100 mg/dl 02/23/2018 22:05 EDT [facility] [employer] ID [id number] 02/23/2018 22:05 EDT [facility] Comment:[facility] BLOOD SPECIMEN / Unknown 02/23/2018 22:00 EDT 02/23/2018 22:05 EDT Tyrell Vela MD CHEMISTRY & BLOOD GAS ORDERABLES Performing Organization Address [facility] Co de Phone Number [facility] [address] [place] [address] * (ABNORMAL) BLOOD GAS, G3 ISTAT (02/23/2018 21:50 EDT) pH, i-STAT 7.47(H) 7.35 - 7.45 02/23/2018 21:55 EDT [facility] pCO2, i-STAT 39 35 - 45 mmHg 02/23/2018 21:55 EDT [facility] pO2, i-STAT 84 80 - 105 mmHg 02/23/2018 21:55 EDT [facility] TCO2, i-STAT 29(H) 23 - 27 mEq/L 02/23/2018 21:55 EDT [facility] O2 Saturation 97 95 - 98 % 02/23/2018 21:55 EDT [facility] Base Excess, i-STAT 4 02/23/2018 21:55 EDT [facility] FIO2 24 02/23/2018 21:55 EDT [facility] Sample Type ARTERIAL 02/23/2018 21:55 EDT [facility] inventory checker ID [id number] 02/23/2018 21:55 EDT [facility] Comment: Test Performed by Respiratory For non-arterial reference ranges, please see ISTAT procedure. BLOOD SPECIMEN / Unknown 02/23/2018 21:50 EDT 02/23/2018 21:55 EDT Tyrell Vela MD CHEMISTRY & BLOOD GAS ORDERABLES Performing Organization Address City/[facility] Co de Phone Number [facility] [address] [place] [address] * (ABNORMAL) GLUCOSE, GLUCOMETER (02/23/2018 20:59 EDT) Glucose, Fingerstick 132(H) 70 - 100 mg/dl 02/23/2018 21:24 EDT [facility] [employer] ID [id number] 02/23/2018 21:24 EDT [facility] Comment:Test Performed by Nu rsing Services BLOOD SPECIMEN / Unknown 02/23/2018 20:59 EDT 02/23/2018 21:24 EDT Tyrell Vela MD CHEMISTRY & BLOOD GAS ORDERABLES Performing Organization Address City/[facility]/ZIP Co de Phone Number [facility] [address] [place] [address] * GLUCOSE, GLUCOMETER (02/23/2018 19:59 EDT) Glucose, Fingerstick 92 70 - 100 mg/dl 02/23/2018 20:04 EDT [facility] [employer] ID [id number] 02/23/2018 20:04 EDT [facility] Comment:Test Performed by Nu rsing Services BLOOD SPECIMEN / Unknown 02/23/2018 19:59 EDT 02/23/2018 20:04 EDT Tyrell Vela MD CHEMISTRY & BLOOD GAS ORDERABLES Performing Organization Address [facility] Co de Phone Number [facility] [address] [place] [address] * (ABNORMAL) GLUCOSE, GLUCOMETER (02/23/2018 17:43 EDT) Glucose, Fingerstick 104(H) 70 - 100 mg/dl 02/23/2018 17:48 EDT [facility] [employer] ID [id number] 02/23/2018 17:48 EDT [facility] Comment:Test Performed by Nu rsing Services BLOOD SPECIMEN / Unknown 02/23/2018 17:43 EDT 02/23/2018 17:48 EDT Tyrell Vela MD CHEMISTRY & BLOOD GAS ORDERABLES Performing Organization Address [facility] Co de Phone Number [facility] [address] [place] [address] * (ABNORMAL) GLUCOSE, GLUCOMETER (02/23/2018 16:21 EDT) Glucose, Fingerstick 112(H) 70 - 100 mg/dl 02/23/2018 16:22 EDT [facility] [employer] ID [id number] 02/23/2018 16:22 EDT [facility] Comment:[facility] BLOOD SPECIMEN / Unknown 02/23/2018 16:21 EDT 02/23/2018 16:22 EDT Tyrell Vela MD CHEMISTRY & BLOOD GAS ORDERABLES Performing Organization Address City/[facility]/ZIP Co de Phone Number [facility] [address] [place] [address] * CREATININE (02/23/2018 14:36 EDT) Creatinine 0.75 0.52 - 1.04 mg/dl 02/23/2018 15:32 EDT [facility] GFR, Calculated 80 >60 ml/min/1.7 3m2 02/23/2018 15:32 EDT [facility] Comment: eGFR calculated using CKD-EPI equation for non Americans. Multiply eGFR by 1.16 for Americans. Blood specimen (specimen) BLOOD SPECIMEN / Unknown 02/23/2018 14:36 EDT 02/23/2018 15:09 EDT Narrative Authorizing Provider Result Meghan Beasley MD CHEMISTRY & BLOOD GA S ORDERABLES Performing Organization Address City/[facility]/ZIP Co de Phone Number [facility] [address] [place] [address] * PHOSPHORUS (02/23/2018 14:36 EDT) Phosphorus 3.6 2.5 - 4.5 mg/dl 02/23/2018 15:32 EDT [facility] Blood specimen (specimen) BLOOD SPECIMEN / Unknown 02/23/2018 14:36 EDT 02/23/2018 15:09 EDT Narrative Authorizing Provider Result Meghan Beasley MD CHEMISTRY & BLOOD GA S ORDERABLES Performing Organization Address City/[facility] Co de Phone Number [facility] [address] [place] [address] * MAGNESIUM (02/23/2018 14:36 EDT) Magnesium 2.2 1.7 - 2.8 mg/dl 02/23/2018 15:32 EDT [facility] Blood specimen (specimen) BLOOD SPECIMEN / Unknown 02/23/2018 14:36 EDT 02/23/2018 15:09 EDT Narrative Authorizing Provider Result Meghan Beasley MD CHEMISTRY & BLOOD GA S ORDERABLES Performing Organization Address City/[facility] Co de Phone Number [facility] [address] [place] [address] * CALCIUM, IONIZED (02/23/2018 14:36 EDT) Calcium, Ionized 1.14 1.12 - 1.32 mmol/L 02/23/2018 15:18 EDT [facility] Blood specimen (specimen) BLOOD SPECIMEN / Unknown 02/23/2018 14:36 EDT 02/23/2018 15:09 EDT Adryan Beasley MD CHEMISTRY & BLOOD GA S ORDERABLES Performing Organization Address City/[facility]/ZIP Co de Phone Number [facility] [address] [place] [address] * ELECTROLYTES (02/23/2018 14:36 EDT) Sodium 139 136 - 145 mEq/L 02/23/2018 15:32 EDT [facility] Potassium 4.0 3.5 - 5.0 mEq/L 02/23/2018 15:32 EDT [facility] Chloride 106 96 - 110 mEq/L 02/23/2018 15:32 EDT [facility] CO2 28 22 - 32 mEq/L 02/23/2018 15:32 EDT [facility] Blood specimen (specimen) BLOOD SPECIMEN / Unknown 02/23/2018 14:36 EDT 02/23/2018 15:09 EDT Adryan Beasley MD CHEMISTRY & BLOOD GA S ORDERABLES Performing Organization Address [facility] Co de Phone Number [facility] [address] [place] [address] * ECG REPORT - SCANNED (02/23/2018 14:22 EDT) 02/23/2018 14:2 2 EDT Scan 2 Senior Support Analyst PROCEDURE/MINOR NANCY GICAL ORDERABLES * (ABNORMAL) GLUCOSE, GLUCOMETER (02/23/2018 14:10 EDT) Glucose, Fingerstick 110(H) 70 - 100 mg/dl 02/23/2018 14:14 EDT [facility] [employer] [place] [id number] 02/23/2018 14:14 EDT [facility] Comment:[facility] BLOOD SPECIMEN / Unknown 02/23/2018 14:10 EDT 02/23/2018 14:14 EDT Tyrell Vela MD CHEMISTRY & BLOOD GAS ORDERABLES Performing Organization Address [facility] Co de Phone Number [facility] [address] [place] [address] * (ABNORMAL) GLUCOSE, GLUCOMETER (02/23/2018 11:58 EDT) Glucose, Fingerstick 136(H) 70 - 100 mg/dl 02/23/2018 12:00 EDT [facility] [employer] ID [id number] 02/23/2018 12:00 EDT [facility] Comment:Test Performed by [facility] Services BLOOD SPECIMEN / Unknown 02/23/2018 11:58 EDT 02/23/2018 12:00 EDT Tyrell Vela MD CHEMISTRY & BLOOD GAS ORDERABLES Performing Organization Address [facility] Co de Phone Number [facility] [address] [place] [address] * (ABNORMAL) GLUCOSE, GLUCOMETER (02/23/2018 9:41 EDT) Glucose, Fingerstick 133(H) 70 - 100 mg/dl 02/23/2018 9:42 EDT [facility] [employer] ID [id number] 02/23/2018 9:42 EDT [facility] Comment:[facility] BLOOD SPECIMEN / Unknown 02/23/2018 9:41 EDT 02/23/2018 9:42 EDT Tyrell Vela MD CHEMISTRY & BLOOD GAS ORDERABLES Performing Organization Address [facility] Co de Phone Number [facility] [address] [place] [address] * BLOOD GAS, G3 ISTAT (02/23/2018 8:25 EDT) pH, i-STAT 7.44 7.35 - 7.45 02/23/2018 8:30 EDT [facility] pCO2, i-STAT 39 35 - 45 mmHg 02/23/2018 8:30 EDT [facility] pO2, i-STAT Results not available 80 - 105 mmHg 02/23/2018 8:30 EDT [facility] TCO2, i-STAT 27 23 - 27 mEq/L 02/23/2018 8:30 EDT [facility] O2 Saturation Results not available 95 - 98 % 02/23/2018 8:30 EDT [facility] Base Excess, i-STAT 2 02/23/2018 8:30 EDT [facility] Sample Type ARTERIAL 02/23/2018 8:30 EDT [facility] inventory checker ID [phone] 02/23/2018 8:30 EDT [facility] Comment: Test Performed by Respiratory For non-arterial reference ranges, please see ISTAT procedure. BLOOD SPECIMEN / Unknown 02/23/2018 8:25 EDT 02/23/2018 8:30 EDT Tyrell Vela MD CHEMISTRY & BLOOD GAS ORDERABLES Performing Organization Address City/[facility]/ZIP Co de Phone Number [facility] [address] [place] [address] * (ABNORMAL) GLUCOSE, GLUCOMETER (02/23/2018 8:07 EDT) Glucose, Fingerstick 128(H) 70 - 100 mg/dl 02/23/2018 8:34 EDT [facility] [employer] ID [id number] 02/23/2018 8:34 EDT [facility] Comment:Test Performed by Nu rsing Services BLOOD SPECIMEN / Unknown 02/23/2018 8:07 EDT 02/23/2018 8:34 EDT Tyrell Vela MD CHEMISTRY & BLOOD GAS ORDERABLES [facility] [address] [place] [address] * PORTABLE CHEST 1 VIEW (02/23/2018 6:44 [...] * (ABNORMAL) GLUCOSE, GLUCOMETER (02/23/2018 6:05 EDT) Glucose, Fingerstick 148(H) 70 - 100 mg/dl 02/23/2018 6:07 EDT [facility] [employer] ID [id number] 02/23/2018 6:07 EDT [facility] Comment:Test Performed by Nu ing Services BLOOD SPECIMEN / Unknown 02/23/2018 6:05 EDT 02/23/2018 6:07 EDT Tyrell Vela MD CHEMISTRY & BLOOD GAS ORDERABLES [facility] [address] [place] [address] * EKG 12-LEAD (02/23/2018 5:22 EDT) 02/23/2018 5:22 EDT Narrative [facility] E[facility] - 02/24/2018 11:56 EDT ? [facility] ? Test Date: ?2018-02-23 Pat Name: ? TROY ANDERS ? Department: ?? Vu 3 ? Room: ? 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 [id number] : ?1945 ? Requested By: TIKI Ballard Order Number: [id number] ? Reading MD: ?? JESUS SANTAMARIA MD ? Measurements Intervals ?Warren ? Rate: ? 85 ? P: ?30 AK: ? 144 ?QRS: ?-5 QRSD: ? 134 [...] Note Jesus Santamaria MD - 02/24/2018 [facility] Test Date: 2018-02-23 Pat Name: TROY ANDERS Department: Horace Mackey Room: [facility] Gender: Female Archivist Political History: [id number] : 1945 Requested By: TIKI Ballard Order Number: [id number] Aliyah MD: JESUS DAVISON Measurements Intervals Warren Rate: 85 P: 30 AK: 144 QRS: -5 QRSD: 134 T: 145 QT: 409 QTc: 489 Interpretive Statements SINUS RHYTHM INTRAVENTRICULAR CONDUCTION DELAY Compared to ECG 02/22/2018 12:39:18 No significant changes I reviewed the tracing and have either agreed or edited the findings inthis report. Electronically Signed On 02-24-2018 11:56:21 EDT by MARIPOSA WOODS. Wm Magana PA-C CARDIAC ECG ORDER LEAH [facility] E[facility] * CREATININE (02/23/2018 4:53 EDT) Creatinine 0.68 0.52 - 1.04 mg/dl 02/23/2018 5:21 EDT [facility] Comment:Slight hemolysis GFR, Calculated 88 >60 ml/min/1.7 3m2 02/23/2018 5:21 T [facility] Comment: eGFR calculated using CKD-EPI equation for non Americans. Multiply eGFR by 1.16 for Americans. Blood specimen (specimen) BLOOD SPECIMEN / Unknown 02/23/2018 4:53 EDT 02/23/2018 4:56 EDT Tyrell Vela MD CHEMISTRY & BLOOD GAS ORDERABLES Performing Organization Address [facility] Co de Phone Number [facility] [address] [place] [address] * BUN (02/23/2018 4:53 EDT) BUN 18 10 - 26 mg/dl 02/23/2018 5:21 T [facility] Comment: Slight hemolysis Results may be affected due to hemolysis. Blood specimen (specimen) BLOOD SPECIMEN / Unknown 02/23/2018 4:53 EDT 02/23/2018 4:56 EDT Tyrell Vela MD CHEMISTRY & BLOOD GAS ORDERABLES Performing Organization Address [facility] Co de Phone Number [facility] [address] [place] [address] * ELECTROLYTES (02/23/2018 4:53 EDT) Sodium 139 136 - 145 mEq/L 02/23/2018 5:21 EDT [facility] Comment:Slight hemolysis Potassium 4.6 3.5 - 5.0 mEq/L 02/23/2018 5:21 T [facility] Comment: Slight hemolysis Hemolysis may elevate potassium result. Chloride 109 96 - 110 mEq/L 02/23/2018 5:21 T [facility] Comment:Slight hemolysis CO2 25 22 - 32 mEq/L 02/23/2018 5:21 T [facility] Comment:Slight hemolysis Blood specimen (specimen) BLOOD SPECIMEN / Unknown 02/23/2018 4:53 EDT 02/23/2018 4:56 EDT Tyrell Vela MD CHEMISTRY & BLOOD GAS ORDERABLES [facility] [address] [place] [address] * (ABNORMAL) GLUCOSE, GLUCOMETER (02/23/2018 3:51 EDT) Glucose, Fingerstick 141(H) 70 - 100 mg/dl 02/23/2018 3:53 EDT [facility] [employer] ID [id number] 02/23/2018 3:53 EDT [facility] Comment:[facility] BLOOD SPECIMEN / Unknown 02/23/2018 3:51 EDT 02/23/2018 3:53 EDT Tyrell Vela MD CHEMISTRY & BLOOD GAS ORDERABLES Performing Organization Address City/[facility]/ZIP Co de Phone Number [facility] [address] [place] [address] * SLIDE REQUEST (02/23/2018 2:55 EDT) Note A smear is filed in the Hematology lab 02/23/2018 4:12 EDT [facility] BLOOD SPECIMEN / Unknown 02/23/2018 2:55 EDT 02/23/2018 3:07 EDT Wm Magana PA-C HEMATOLOGY & PF4 ORDERABLES Performing Organization Address City/[facility]/ZIP Co de Phone Number [facility] [address] [place] [address] * (ABNORMAL) COMPLETE BLOOD COUNT (02/23/2018 2:55 EDT) WBC 23.20(H) 4.0 - 12.4 K/cmm 02/23/2018 3:30 EDT [facility] RBC 3.50(L) 3.86 - 5.04 M/cmm 02/23/2018 3:30 EDT [facility] Hemoglobin 12.1 11.6 - 15.2 gm/dl 02/23/2018 3:30 EDT [facility] HCT 35.2 34.9 - 44.4 % 02/23/2018 3:30 [facility] MCV 101(H) 81 - 98 fl 02/23/2018 3:30 [facility] MCH 34.6(H) 26.7 - 33.3 pg 02/23/2018 3:30 EDT [facility] MCHC 34.4 32.1 - 35.9 gm/dl 02/23/2018 3:30 [facility] RDW-CV 13.5 <14.7 % 02/23/2018 3:30 [facility] RDW-SD 49.5 <50.4 fl 02/23/2018 3:30 [facility] PLT 167 141 - 377 K/cmm 02/23/2018 3:30 [facility] MPV 11.9 9.5 - 12.7 fl 02/23/2018 3:30 T [facility] Blood specimen (specimen) BLOOD SPECIMEN / Unknown 02/23/2018 2:55 EDT 02/23/2018 3:07 EDT Adryan Beasley MD HEMATOLOGY & PF4 ORD ERABLES [facility] [address] [place] [address] * (ABNORMAL) GLUCOSE, GLUCOMETER (02/23/2018 2:02 EDT) Glucose, Fingerstick 142(H) 70 - 100 mg/dl 02/23/2018 2:07 EDT [facility] [employer] ID [id number] 02/23/2018 2:07 EDT [facility] Comment:Test Performed by [facility] Services BLOOD SPECIMEN / Unknown 02/23/2018 2:02 EDT 02/23/2018 2:07 EDT Tyrell Vela MD CHEMISTRY & BLOOD GAS ORDERABLES Performing Organization Address [facility] Co de Phone Number [facility] [address] [place] [address] * (ABNORMAL) GLUCOSE, GLUCOMETER (02/23/2018 0:01 EDT) Glucose, Fingerstick 143(H) 70 - 100 mg/dl 02/23/2018 0:07 EDT [facility] [employer] ID [id number] 02/23/2018 0:07 EDT [facility] Comment:Test Performed by Nu [facility] Services BLOOD SPECIMEN / Unknown 02/23/2018 0:01 EDT 02/23/2018 0:07 EDT Tyrell Vela MD CHEMISTRY & BLOOD GAS ORDERABLES Performing Organization Address [facility] Co de Phone Number [facility] [address] [place] [address] * (ABNORMAL) GLUCOSE, GLUCOMETER (02/22/2018 22:00 EDT) Glucose, Fingerstick 149(H) 70 - 100 mg/dl 02/22/2018 22:00 EDT [facility] [employer] ID [id number] 02/22/2018 22:00 EDT [facility] Comment:Test Performed by Nu rsing Services BLOOD SPECIMEN / Unknown 02/22/2018 22:00 EDT 02/22/2018 22:01 EDT Tyrell Vela MD CHEMISTRY & BLOOD GAS ORDERABLES Performing Organization Address [facility]/ZIP Co de Phone Number [facility] [address] [place] [address] * (ABNORMAL) BLOOD GAS, G3 ISTAT (02/22/2018 20:22 EDT) pH, i-STAT 7.30(L) 7.35 - 7.45 02/22/2018 20:27 EDT [facility] pCO2, i-STAT 49(H) 35 - 45 mmHg 02/22/2018 20:27 [facility] pO2, i-STAT 61(L) 80 - 105 mmHg 02/22/2018 20:27 [facility] TCO2, i-STAT 25 23 - 27 mEq/L 02/22/2018 20:27 [facility] O2 Saturation 88(L) 95 - 98 % 02/22/2018 20:27 [facility] Base Deficit, i-STAT 3 02/22/2018 20:27 [facility] FIO2 21 02/22/2018 20:27 [facility] Sample Type ARTERIAL 02/22/2018 20:27 [facility] inventory checker ID [id number] 02/22/2018 20:27 [facility] Comment: Test Performed by Respiratory For non-arterial reference ranges, please see ISTAT procedure. BLOOD SPECIMEN / Unknown 02/22/2018 20:22 EDT 02/22/2018 20:27 EDT Tyrell Vela MD CHEMISTRY & BLOOD GAS ORDERABLES Performing Organization Address City/[facility]/ZIP Co de Phone Number [facility] [address] [place] [address] * (ABNORMAL) GLUCOSE, GLUCOMETER (02/22/2018 19:56 EDT) Glucose, Fingerstick 151(H) 70 - 100 mg/dl 02/22/2018 19:57 EDT [facility] [employer] ID [id number] 02/22/2018 19:57 EDT [facility] Comment:Test Performed by Nu ing Services BLOOD SPECIMEN / Unknown 02/22/2018 19:56 EDT 02/22/2018 19:57 EDT Tyrell Vela MD CHEMISTRY & BLOOD GAS ORDERABLES Performing Organization Address City/[facility]/ZIP Co de Phone Number [facility] [address] [place] [address] * (ABNORMAL) BLOOD GAS, G3 ISTAT (02/22/2018 18:56 EDT) pH, i-STAT 7.31(L) 7.35 - 7.45 02/22/2018 19:03 EDT [facility] pCO2, i-STAT 56(H) 35 - 45 mmHg 02/22/2018 19:03 T [facility] pO2, i-STAT 109(H) 80 - 105 mmHg 02/22/2018 19:03 [facility] TCO2, i-STAT 30(H) 23 - 27 mEq/L 02/22/2018 19:03 T [facility] O2 Saturation 98 95 - 98 % 02/22/2018 19:03 [facility] Base Excess, i-STAT 1 02/22/2018 19:03 [facility] Sample Type ARTERIAL 02/22/2018 19:03 [facility] inventory checker ID [id number] 02/22/2018 19:03 [facility] Comment: Test Performed by Respiratory For non-arterial reference ranges, please see ISTAT procedure. BLOOD SPECIMEN / Unknown 02/22/2018 18:56 EDT 02/22/2018 19:03 EDT Tyrell Vela MD CHEMISTRY & BLOOD GAS ORDERABLES [facility] [address] [place] [address] * POTASSIUM (02/22/2018 18:49 EDT) Potassium 4.0 3.5 - 5.0 mEq/L 02/22/2018 19:14 EDT [facility] Blood specimen (specimen) BLOOD SPECIMEN / Unknown 02/22/2018 18:49 EDT 02/22/2018 19:00 EDT Wm Magana PA-C CHEMISTRY & BLOOD GAS ORDERABLES Performing Organization Address [facility]/ZIP Co de Phone Number [facility] [address] [place] [address] * SLIDE REQUEST (02/22/2018 18:04 EDT) Note A smear is filed in the Hematology lab 02/22/2018 19:10 EDT [facility] BLOOD SPECIMEN / Unknown 02/22/2018 18:04 EDT 02/22/2018 18:08 EDT Wm Magana PA-C HEMATOLOGY & PF4 ORDERABLES [facility] [address] [place] [address] * (ABNORMAL) COMPLETE BLOOD COUNT (02/22/2018 18:04 EDT) WBC 22.68(H) 4.0 - 12.4 K/cmm 02/22/2018 18:29 T [facility] RBC 3.58(L) 3.86 - 5.04 M/cmm 02/22/2018 18:29 [facility] Hemoglobin 12.2 11.6 - 15.2 gm/dl 02/22/2018 18:29 [facility] HCT 36.3 34.9 - 44.4 % 02/22/2018 18:29 [facility] MCV 101(H) 81 - 98 fl 02/22/2018 18:29 [facility] MCH 34.1(H) 26.7 - 33.3 pg 02/22/2018 18:29 [facility] MCHC 33.6 32.1 - 35.9 gm/dl 02/22/2018 18:29 [facility] RDW-CV 13.6 <14.7 % 02/22/2018 18:29 [facility] RDW-SD 50.1 <50.4 fl 02/22/2018 18:29 [facility] PLT 191 141 - 377 K/cmm 02/22/2018 18:29 [facility] MPV 12.2 9.5 - 12.7 fl 02/22/2018 18:29 [facility] Blood specimen (specimen) BLOOD SPECIMEN / Unknown 02/22/2018 18:04 EDT 02/22/2018 18:08 EDT Wm Magana PA-C HEMATOLOGY & PF4 ORDERABLES [facility] [address] [place] [address] * SURGICAL PATHOLOGY (02/22/2018 18:03 EDT) Pathology Report: SURGICAL PATHOLOGY REPORT Reports generated via electronic interface contain original data; however they are lacking the format of the original report. Caution should be taken when reading/interpret ing unformatted reports. Name: ? TROY ANDERS ? Accession #: ? [id number] ? : ? 1945 (Age: 72) ??F [...] identified. No masses or lesions are identified. Oil Burner sections are submitted in 1 and 2. ELIUD Yates (ASCP) 02/23/2018 9:03 AM End of Report [facility] 02/22/2018 18:0 3 EDT 02/22/2018 18:03 EDT Tyrell Vela MD PATHOLOGY ORDERAB LES Performing Organization Address City/[facility] Co de Phone Number [facility] [address] [place] [address] * (ABNORMAL) GLUCOSE, GLUCOMETER (02/22/2018 18:01 EDT) Glucose, Fingerstick 143(H) 70 - 100 mg/dl 02/22/2018 18:06 EDT [facility] [employer] ID [id number] 02/22/2018 18:06 EDT [facility] Comment:Test Performed by Nu rsing Services BLOOD SPECIMEN / Unknown 02/22/2018 18:01 EDT 02/22/2018 18:06 EDT Tyrell Vela MD CHEMISTRY & BLOOD GAS ORDERABLES Performing Organization Address [facility] Co de Phone Number [facility] [address] [place] [address] * (ABNORMAL) GLUCOSE, GLUCOMETER (02/22/2018 15:53 EDT) Glucose, Fingerstick 137(H) 70 - 100 mg/dl 02/22/2018 15:57 EDT [facility] [employer] ID [id number] 02/22/2018 15:57 EDT [facility] Comment:Test Performed by Nu rsing Services BLOOD SPECIMEN / Unknown 02/22/2018 15:53 EDT 02/22/2018 15:57 EDT Tyrell Vela MD CHEMISTRY & BLOOD GAS ORDERABLES Performing Organization Address City/[facility]/ZIP Co de Phone Number [facility] [address] [place] [address] * (ABNORMAL) BLOOD GAS, G3 ISTAT (02/22/2018 13:50 EDT) pH, i-STAT 7.25(L) 7.35 - 7.45 02/22/2018 13:55 EDT [facility] pCO2, i-STAT 60(H) 35 - 45 mmHg 02/22/2018 13:55 EDT [facility] pO2, i-STAT 123(H) 80 - 105 mmHg 02/22/2018 13:55 T [facility] TCO2, i-STAT 28(H) 23 - 27 mEq/L 02/22/2018 13:55 T [facility] O2 Saturation 98 95 - 98 % 02/22/2018 13:55 EDT [facility] Base Deficit, i-STAT 2 02/22/2018 13:55 T [facility] FIO2 50 02/22/2018 13:55 EDT [facility] Sample Type ARTERIAL 02/22/2018 13:55 T [facility] inventory checker ID [id number] 02/22/2018 13:55 T [facility] Comment: Test Performed by Respiratory For non-arterial reference ranges, please see ISTAT procedure. BLOOD SPECIMEN / Unknown 02/22/2018 13:50 EDT 02/22/2018 13:55 EDT Tyrell Vela MD CHEMISTRY & BLOOD GAS ORDERABLES [facility] [address] [place] [address] * (ABNORMAL) GLUCOSE, GLUCOMETER (02/22/2018 13:47 EDT) Glucose, Fingerstick 129(H) 70 - 100 mg/dl 02/22/2018 13:48 EDT [facility] [employer] ID [id number] 02/22/2018 13:48 T [facility] Comment:Test Performed by Nu rsing Services BLOOD SPECIMEN / Unknown 02/22/2018 13:47 EDT 02/22/2018 13:48 EDT Tyrell Vela MD CHEMISTRY & BLOOD GAS ORDERABLES [facility] [address] [place] [address] * INPATIENT ADD-ON (02/22/2018 13:30 EDT) Tests to be added MAGNESIUM, PHOSPHOROU S 02/22/2018 13:26 EDT [facility] Number for problems [id number] 02/22/2018 13:47 EDT [facility] Accession number [id number] 02/22/2018 13:47 EDT [facility] TOPOGRAPHY UNKNOWN / Unknown 02/22/2018 13:30 EDT 02/22/2018 13:46 EDT Senait Candelaria MD HEMATOLOGY & PF4 ORD ERABLES Performing Organization Address City/[facility] Co de Phone Number [facility] [address] [place] [address] * INPATIENT ADD-ON (02/22/2018 12:50 EDT) Tests to be added HEMOGLOBIN A1C 02/22/2018 12:52 EDT [facility] Number for problems [id number] 02/22/2018 13:09 EDT [facility] Accession number [id number] 02/22/2018 13:09 EDT [facility] TOPOGRAPHY UNKNOWN / Unknown 02/22/2018 12:50 EDT 02/22/2018 13:09 EDT Adryan Beasley MD HEMATOLOGY & PF4 ORD ERABLES [facility] [address] [place] [address] * MRSA PCR (02/22/2018 12:40 EDT) Result No Staphylococcus aureus detected by PCR. 02/22/2018 19:45 EDT [facility] Specimen of unknown material (specimen) NASAL ROUTE / Unknown 02/22/2018 12:40 EDT 02/22/2018 13:04 EDT Wm Magana PA-C [facility] ORDERABLES [facility] [address] [place] [address] * EKG 12-LEAD (02/22/2018 12:39 EDT) 02/22/2018 12:3 9 EDT Narrative [facility] EKG - 02/23/2018 14:19 EDT ? [facility] ? Test Date: ?2018-02-22 Pat Name: ? TROY ANDERS ? Department: ?? Vu 3 ? Room: ? 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 [id number] : ?1945 ? Requested By: TIKI Ballard Order Number: [id number] ? Aliyah WOODS: ?? MARIFER BARKLEY MD ? Measurements Intervals ?Warren ? Rate: ? 89 ? P: ?57 AK: ? 194 ?QRS: ?13 QRSD: ? 145 ?T: ?164 QT: ? 414 ? QTc: ?505 ? Interpretive Statements SINUS RHYTHM INTRAVENTRICULAR CONDUCTION DELAY I reviewed the tracing and have either agreed or edited the findings in this report. Electronically Signed On 02-23-2018 14:19:43 EDT by MARIFER BARKLEY MD. Procedure Note Marifer Barkley MD - 02/23/2018 [facility] Test Date: 2018-02-22 Pat Name: TROY ANDERS Department: [place] [address] Room: [facility] Gender: Female Archivist Political History: [id number] : 1945 Requested By: TIKI Ballard Order Number: [id number] Aliyah MD: MARIFER BARKLEY MD Measurements Intervals Warren Rate: 89 P: 57 AK: 194 QRS: 13 QRSD: 145 T: 164 QT: 414 QTc: 505 Interpretive Statements SINUS RHYTHM INTRAVENTRICULAR CONDUCTION DELAY I reviewed the tracing and have either agreed or edited the findings inthis report. Electronically Signed On 02-23-2018 14:19:43 EDT by MARIFER HERNÁNDEZ. Wm Magana PA-C CARDIAC ECG ORDER LEAH [facility] EKG * PORTABLE CHEST PA CENTRAL LINE/PICC/ET [...] drain (according to the operative note, 36 Albanian and 24 Shane mediastinal drains and a [...] drain (according to the operative note, 36 Albanian and 24 Shane mediastinal drains and a [...] 70 - 100 mg/dl 02/22/2018 12:37 EDT [facility] [employer] [place] [id number] 02/22/2018 12:37 EDT [facility] Comment:Test Performed by [facility] Services BLOOD SPECIMEN / Unknown 02/22/2018 12:36 EDT 02/22/2018 12:37 EDT Tyrell Vela MD CHEMISTRY & BLOOD GAS ORDERABLES Performing Organization Address City/[facility]/ZIP Co de Phone Number [facility] [address] [place] [address] * PHOSPHORUS (02/22/2018 12:32 EDT) Pathologist [facility] Phosphorus 3.2 2.5 - 4.5 mg/dl 02/22/2018 14:43 EDT [facility] Comment: Slight hemolysis Results may be affected due to hemolysis. BLOOD SPECIMEN / Unknown 02/22/2018 12:32 EDT 02/22/2018 12:54 EDT Wm Magana PA-C CHEMISTRY & BLOOD GAS ORDERABLES Performing Organization Address City/[facility]/ZIP Co de Phone Number [facility] [address] [place] [address] * MAGNESIUM (02/22/2018 12:32 EDT) Pathologist [facility] Magnesium 2.7 1.7 - 2.8 mg/dl 02/22/2018 14:43 EDT [facility] Comment: Slight hemolysis Results may be affected due to hemolysis. BLOOD SPECIMEN / Unknown 02/22/2018 12:32 EDT 02/22/2018 12:54 EDT Wm Magana PA-C CHEMISTRY & BLOOD GAS ORDERABLES Performing Organization Address [facility] Co de Phone Number [facility] [address] [place] [address] * HEMOGLOBIN A1C (02/22/2018 12:32 EDT) Hemoglobin A1C 5.5 % 02/22/2018 15:06 EDT [facility] Comment: Reference Range: <5.7% Normal 5.7-6.4% Prediabetes =>6.5% Diagnostic for diabetes (if confirmed) Goals for glycemic control in diabetes ADA 2017 For non adults with diabetes: ?? Target <7.5% For children and adolescents with type 1 diabetes: ?? Target <7.0% More or less stringent targets may be appropriate for individual patients. Est Avg Glucose 111 mg/dl 8 15:06 EDT [facility] Comment: eAG represents the A1c result expressed as average glucose in mg/dl. BLOOD SPECIMEN / Unknown 02/22/2018 12:32 EDT 02/22/2018 12:54 EDT Wm Magana PA-C CHEMISTRY & BLOOD GAS ORDERABLES Performing Organization Address [facility] Co de Phone Number [facility] [address] [place] [address] * CREATININE (02/22/2018 12:32 EDT) Creatinine 0.56 0.52 - 1.04 mg/dl 02/22/2018 13:19 EDT [facility] Comment:Slight hemolysis GFR, Calculated 94 >60 ml/min/1.7 3m2 02/22/2018 13:19 EDT [facility] Comment: eGFR calculated using CKD-EPI equation for non Americans. Multiply eGFR by 1.16 for Americans. Blood specimen (specimen) BLOOD SPECIMEN / Unknown 02/22/2018 12:32 EDT 02/22/2018 12:54 EDT Adryan Beasley MD CHEMISTRY & BLOOD GA S ORDERABLES Performing Organization Address [facility] de Phone Number [facility] [address] [place] [address] * BUN (02/22/2018 12:32 EDT) BUN 14 10 - 26 mg/dl 02/22/2018 13:19 [facility] Comment: Slight hemolysis Results may be affected due to hemolysis. Blood specimen (specimen) BLOOD SPECIMEN / Unknown 02/22/2018 12:32 EDT 02/22/2018 12:54 EDT Adryan Beasley MD CHEMISTRY & BLOOD GA S ORDERABLES Performing Organization Address [facility] de Phone Number [facility] [address] [place] [address] * (ABNORMAL) COMPLETE BLOOD COUNT (02/22/2018 12:32 EDT) WBC 13.59(H) 4.0 - 12.4 K/cmm 02/22/2018 13:10 [facility] RBC 3.63(L) 3.86 - 5.04 M/cmm 02/22/2018 13:10 [facility] Hemoglobin 12.3 11.6 - 15.2 gm/dl 02/22/2018 13:10 [facility] HCT 36.6 34.9 - 44.4 % 02/22/2018 13:10 [facility] MCV 101(H) 81 - 98 fl 02/22/2018 13:10 [facility] MCH 33.9(H) 26.7 - 33.3 pg 02/22/2018 13:10 [facility] MCHC 33.6 32.1 - 35.9 gm/dl 02/22/2018 13:10 [facility] RDW-CV 13.1 <14.7 % 02/22/2018 13:10 EDT [facility] RDW-SD 48.9 <50.4 fl 02/22/2018 13:10 EDT [facility] PLT 163 141 - 377 K/cmm 02/22/2018 13:10 EDT [facility] MPV 11.7 9.5 - 12.7 fl 02/22/2018 13:10 EDT [facility] Blood specimen (specimen) BLOOD SPECIMEN / Unknown 02/22/2018 12:32 EDT 02/22/2018 12:54 EDT Wm Magana PA-C HEMATOLOGY & PF4 ORDERABLES Performing Organization Address [facility] Co de Phone Number [facility] [address] [place] [address] * POTASSIUM (02/22/2018 12:32 EDT) Potassium 4.4 3.5 - 5.0 mEq/L 02/22/2018 13:19 EDT [facility] Comment: Slight hemolysis Hemolysis may elevate potassium result. Blood specimen (specimen) BLOOD SPECIMEN / Unknown 02/22/2018 12:32 EDT 02/22/2018 12:54 EDT Wm Magana PA-C CHEMISTRY & BLOOD GAS ORDERABLES Performing Organization Address [facility] Co de Phone Number [facility] [address] [place] [address] * (ABNORMAL) BLOOD GAS, CG8 ISTAT (02/22/2018 11:22 EDT) pH, i-STAT 7.34(L) 7.35 - 7.45 02/22/2018 12:55 EDT [facility] pCO2, i-STAT 49(H) 35 - 45 mmHg 02/22/2018 12:55 EDT [facility] pO2, i-STAT 172(H) 80 - 105 mmHg 02/22/2018 12:55 EDT [facility] TCO2, i-STAT 27 23 - 27 mEq/L 02/22/2018 12:55 [facility] O2 Saturation 99(H) 95 - 98 % 02/22/2018 12:55 [facility] Sodium, i-STAT 140 136 - 145 mEq/L 02/22/2018 12:55 [facility] Potassium, i-STAT 5.6(H) 3.5 - 5.0 mEq/L 02/22/2018 12:55 [facility] Glucose, I-STAT 136(H) 70 - 100 mg/dl 02/22/2018 12:55 [facility] Hematocrit,iSTA T 26(L) 34.9 - 44.4 % 02/22/2018 12:55 [facility] Calcium, Ionized 1.29 1.12 - 1.32 mmol/L 02/22/2018 12:55 [facility] Base Excess, i-STAT 0 02/22/2018 12:55 [facility] Sample Type NOT GIVEN 02/22/2018 12:55 [facility] inventory checker ID [id number] 02/22/2018 12:55 [facility] Comment: Test performed by Perfusion For non-arterial reference ranges, please see ISTAT procedure. BLOOD SPECIMEN / Unknown 02/22/2018 11:22 EDT 02/22/2018 12:55 EDT Tyrell Vela MD CHEMISTRY & BLOOD GAS ORDERABLES Performing Organization Address City/State/[facility] Co de Phone Number [facility] [address] [place] [address] * ACT, CELITE ISTAT (02/22/2018 11:21 EDT) Activated Clotting Time 127 02/22/2018 11:54 [facility] inventory checker ID [id number] 02/22/2018 11:54 [facility] Comment: Test performed by Perfusion Baseline ref range is less than or equal to 160 seconds For non baseline ref ranges see procedure. BLOOD SPECIMEN / Unknown 02/22/2018 11:21 EDT 02/22/2018 11:54 EDT Tyrell Vela MD POINT OF CARE BESSY T ORDERABLES [facility] [address] [place] [address] * (ABNORMAL) BLOOD GAS, CG8 ISTAT (02/22/2018 10:57 EDT) pH, i-STAT 7.47(H) 7.35 - 7.45 02/22/2018 12:55 EDT [facility] pCO2, i-STAT 44 35 - 45 mmHg 02/22/2018 12:55 [facility] pO2, i-STAT 552(H) 80 - 105 mmHg 02/22/2018 12:55 [facility] TCO2, i-STAT 33(H) 23 - 27 mEq/L 02/22/2018 12:55 [facility] O2 Saturation 100(H) 95 - 98 % 02/22/2018 12:55 [facility] Sodium, i-STAT 138 136 - 145 mEq/L 02/22/2018 12:55 [facility] Potassium, i-STAT 5.0 3.5 - 5.0 mEq/L 02/22/2018 12:55 [facility] Glucose, I-STAT 167(H) 70 - 100 mg/dl 02/22/2018 12:55 [facility] Hematocrit,iSTA T 27(L) 34.9 - 44.4 % 02/22/2018 12:55 [facility] Calcium, Ionized 1.02(L) 1.12 - 1.32 mmol/L 02/22/2018 12:55 [facility] Base Excess, i-STAT 8 02/22/2018 12:55 [facility] Sample Type NOT GIVEN 02/22/2018 12:55 [facility] inventory checker ID [id number] 02/22/2018 12:55 [facility] Comment: Test performed by Perfusion For non-arterial reference ranges, please see ISTAT procedure. BLOOD SPECIMEN / Unknown 02/22/2018 10:57 EDT 02/22/2018 12:55 EDT Tyrell Vela MD CHEMISTRY & BLOOD GAS ORDERABLES Performing Organization Address [facility] Co de Phone Number [facility] [address] [place] [address] * ACT, CELITE ISTAT (02/22/2018 10:56 EDT) Activated Clotting Time 631 02/22/2018 11:54 EDT [facility] inventory checker ID [id number] 02/22/2018 11:54 EDT [facility] Comment: Test performed by Perfusion Baseline ref range is less than or equal to 160 seconds For non baseline ref ranges see procedure. BLOOD SPECIMEN / Unknown 02/22/2018 10:56 EDT 02/22/2018 11:54 EDT Tyrell Vela MD POINT OF CARE BESSY T ORDERABLES Performing Organization Address [facility] Co de Phone Number [facility] [address] [place] [address] * (ABNORMAL) BLOOD GAS, CG8 ISTAT (02/22/2018 10:32 EDT) pH, i-STAT 7.40 7.35 - 7.45 02/22/2018 12:55 EDT [facility] pCO2, i-STAT 45 35 - 45 mmHg 02/22/2018 12:55 EDT [facility] pO2, i-STAT 55(L) 80 - 105 mmHg 02/22/2018 12:55 T [facility] TCO2, i-STAT 29(H) 23 - 27 mEq/L 02/22/2018 12:55 T [facility] O2 Saturation 88(L) 95 - 98 % 02/22/2018 12:55 T [facility] Sodium, i-STAT 141 136 - 145 mEq/L 02/22/2018 12:55 EDT [facility] Potassium, i-STAT 4.6 3.5 - 5.0 mEq/L 02/22/2018 12:55 EDT [facility] Glucose, I-STAT 180(H) 70 - 100 mg/dl 02/22/2018 12:55 T [facility] Hematocrit,iSTA T 29(L) 34.9 - 44.4 % 02/22/2018 12:55 [facility] Calcium, Ionized 1.07(L) 1.12 - 1.32 mmol/L 02/22/2018 12:55 T [facility] Base Excess, i-STAT 3 02/22/2018 12:55 [facility] Sample Type NOT GIVEN 02/22/2018 12:55 [facility] inventory checker ID [id number] 02/22/2018 12:55 [facility] Comment: Test performed by Perfusion For non-arterial reference ranges, please see ISTAT procedure. BLOOD SPECIMEN / Unknown 02/22/2018 10:32 EDT 02/22/2018 12:55 EDT Tyrell Vela MD CHEMISTRY & BLOOD GAS ORDERABLES Performing Organization Address City/[facility]/ZIP Co de Phone Number [facility] [address] [place] [address] * ACT, CELITE ISTAT (02/22/2018 10:31 EDT) Activated Clotting Time 607 02/22/2018 11:54 EDT [facility] inventory checker ID [id number] 02/22/2018 11:54 EDT [facility] Comment: Test performed by Perfusion Baseline ref range is less than or equal to 160 seconds For non baseline ref ranges see procedure. BLOOD SPECIMEN / Unknown 02/22/2018 10:31 EDT 02/22/2018 11:54 EDT Tyrell Vela MD POINT OF CARE BESSY T ORDERABLES Performing Organization Address [facility]/ZIP Co de Phone Number [facility] [address] [place] [address] * (ABNORMAL) BLOOD GAS, CG8 ISTAT (02/22/2018 10:05 EDT) pH, i-STAT 7.43 7.35 - 7.45 02/22/2018 12:55 [facility] pCO2, i-STAT 48(H) 35 - 45 mmHg 02/22/2018 12:55 [facility] pO2, i-STAT 649(H) 80 - 105 mmHg 02/22/2018 12:55 [facility] TCO2, i-STAT 33(H) 23 - 27 mEq/L 02/22/2018 12:55 [facility] O2 Saturation 100(H) 95 - 98 % 02/22/2018 12:55 [facility] Sodium, i-STAT 139 136 - 145 mEq/L 02/22/2018 12:55 [facility] Potassium, i-STAT 5.0 3.5 - 5.0 mEq/L 02/22/2018 12:55 [facility] Glucose, I-STAT 183(H) 70 - 100 mg/dl 02/22/2018 12:55 [facility] Hematocrit,iSTA T 29(L) 34.9 - 44.4 % 02/22/2018 12:55 [facility] Calcium, Ionized 1.02(L) 1.12 - 1.32 mmol/L 02/22/2018 12:55 [facility] Base Excess, i-STAT 8 02/22/2018 12:55 [facility] Sample Type NOT GIVEN 02/22/2018 12:55 [facility] inventory checker ID [id number] 02/22/2018 12:55 [facility] Comment: Test performed by Perfusion For non-arterial reference ranges, please see ISTAT procedure. BLOOD SPECIMEN / Unknown 02/22/2018 10:05 EDT 02/22/2018 12:55 EDT Tyrell Vela MD CHEMISTRY & BLOOD GAS ORDERABLES [facility] [address] [place] [address] * ACT, CELITE ISTAT (02/22/2018 10:04 EDT) Activated Clotting Time 493 02/22/2018 11:54 EDT [facility] inventory checker ID [id number] 02/22/2018 11:54 EDT [facility] Comment: Test performed by Perfusion Baseline ref range is less than or equal to 160 seconds For non baseline ref ranges see procedure. BLOOD SPECIMEN / Unknown 02/22/2018 10:04 EDT 02/22/2018 11:54 EDT Tyrell Vela MD POINT OF CARE BESSY T ORDERABLES Performing Organization Address [facility] Co de Phone Number [facility] [address] [place] [address] * ACT, CELITE ISTAT (02/22/2018 9:19 EDT) Activated Clotting Time 489 02/22/2018 9:58 EDT [facility] inventory checker ID [id number] 02/22/2018 9:58 EDT [facility] Comment: Test performed by Perfusion Baseline ref range is less than or equal to 160 seconds For non baseline ref ranges see procedure. BLOOD SPECIMEN / Unknown 02/22/2018 9:19 EDT 02/22/2018 9:58 EDT Tyrell Vela MD POINT OF CARE BESSY T ORDERABLES Performing Organization Address City/[facility] Co de Phone Number [facility] [address] [place] [address] * (ABNORMAL) BLOOD GAS, CG8 ISTAT (02/22/2018 8:43 EDT) pH, i-STAT 7.39 7.35 - 7.45 02/22/2018 12:55 EDT [facility] pCO2, i-STAT 47(H) 35 - 45 mmHg 02/22/2018 12:55 EDT [facility] pO2, i-STAT 240(H) 80 - 105 mmHg 02/22/2018 12:55 [facility] TCO2, i-STAT 29(H) 23 - 27 mEq/L 02/22/2018 12:55 [facility] O2 Saturation 100(H) 95 - 98 % 02/22/2018 12:55 [facility] Sodium, i-STAT 144 136 - 145 mEq/L 02/22/2018 12:55 [facility] Potassium, i-STAT 4.0 3.5 - 5.0 mEq/L 02/22/2018 12:55 [facility] Glucose, I-STAT 111(H) 70 - 100 mg/dl 02/22/2018 12:55 [facility] Hematocrit,iSTA T 35 34.9 - 44.4 % 02/22/2018 12:55 [facility] Calcium, Ionized 1.13 1.12 - 1.32 mmol/L 02/22/2018 12:55 [facility] Base Excess, i-STAT 3 02/22/2018 12:55 [facility] Sample Type NOT GIVEN 02/22/2018 12:55 [facility] inventory checker ID [id number] 02/22/2018 12:55 [facility] Comment: Test performed by Perfusion For non-arterial reference ranges, please see ISTAT procedure. BLOOD SPECIMEN / Unknown 02/22/2018 8:43 EDT 02/22/2018 12:55 EDT Tyrell Vela MD CHEMISTRY & BLOOD GAS ORDERABLES Performing Organization Address City/State/[facility] Co de Phone Number [facility] [address] [place] [address] * ACT, CELITE ISTAT (02/22/2018 8:42 EDT) Activated Clotting Time 148 02/22/2018 9:58 [facility] inventory checker ID [id number] 02/22/2018 9:58 [facility] Comment: Test performed by Perfusion Baseline ref range is less than or equal to 160 seconds For non baseline ref ranges see procedure. BLOOD SPECIMEN / Unknown 02/22/2018 8:42 EDT 02/22/2018 9:58 EDT Tyrell Vela MD POINT OF CARE BESSY T ORDERABLES Performing Organization Address [facility] Co de Phone Number [facility] [address] [place] [address] * ABO/RH (02/22/2018 6:52 EDT) ABO O [facility] Rh Factor Positive [facility] 02/22/2018 6:52 EDT Qing Hui MD MSc BLOOD BANK TESTS Performing Organization Address [facility] de Phone Number [facility] * CREATININE (02/22/2018 6:52 EDT) Creatinine 0.66 0.52 - 1.04 mg/dl 02/22/2018 7:21 EDT [facility] GFR, Calculated 89 >60 ml/min/1.7 3m2 02/22/2018 7:21 EDT [facility] Comment: eGFR calculated using CKD-EPI equation for non Americans. Multiply eGFR by 1.16 for Americans. Blood specimen (specimen) BLOOD SPECIMEN / Unknown 02/22/2018 6:52 EDT 02/22/2018 6:58 EDT Tyrell Vela MD CHEMISTRY & BLOOD GAS ORDERABLES Performing Organization Address [facility] Co de Phone Number [facility] [address] [place] [address] * BUN (02/22/2018 6:52 EDT) BUN 16 10 - 26 mg/dl 02/22/2018 7:21 EDT [facility] Blood specimen (specimen) BLOOD SPECIMEN / Unknown 02/22/2018 6:52 EDT 02/22/2018 6:58 EDT Tyrell Vela MD CHEMISTRY & BLOOD GAS ORDERABLES [facility] [address] [place] [address] * ANESTH TRANSESOPHAGEAL ECHO (02/22/2018 6:50 EDT) Anatomical Region Laterality Modality Other 02/22/2018 6:50 EDT Narrative 02/22/2018 6:50 EDT Non Reportable Exam Procedure Note ELEVATED GUARD, IMAGING - 02/22/2018 Non Reportable Exam Arabella Quesada MD CARDIAC ECHO ORDERABLES * ORDERS - SCANNED (02/10/2018 11:37 EDT) 02/10/2018 11:3 7 EDT Scan 2 Senior Support Analyst ADMISSION ORDERABLE S documented in this encounter Visit Diagnoses Diagnosis Nonrheumatic aortic valve stenosis- Primary Aortic valve disorders 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, unspecified vessel or lesion type (HCC-CMS) Nonrheumatic aortic valve stenosis Aortic valve disorders Somnolence Other alteration of consciousness 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) documented in this encounter Administered Medications Inactive [...] DAILY, First dose (after last modification) on Birgit 02/25/18 at 2100, Until Discontinued, Routine Given 02/27/2018 [...] Starting on Birgit 02/25/18 at 0921, Until Thu02/27/18 at 1311, Low [...] DAILY, First dose (after last modification) on Birgit 02/25/18 at 2100, Until Discontinued, Routine Given 02/27/2018 [...] Queen RN)1737 (See Alternative - Provider: Marni Mckeon, STACIE)2323 (See Alternative - Provider: Iza Pedro RN) [...] Natalia Cox RN)1205 (Given - Provider: Sherry Queen RN)1737 (Given - Provider: Marni Mckeon RN)2323 (Given - Provider: Iza Pedro RN) 0644 (Given - Provider: Iza Pedro RN)1324 (Given - Provider: Armando Dey RN)195 (Given - Provider: Iza Pedro RN - Comment: not given by outgoing RN) 0123 (Given - Provider: Iza Pedro RN)0624 (Given - Provider: Iza Pedro RN) aspirin chewable tablet 81 mg 81 mg, oral, DAILY, First dose on Thu02/23/18 at 0900, Until Discontinued, Routine 0909 (Given - Provider: Sherry Queen RN) 0810 (Given - Provider: Armando Dey, STACIE) 0802 (Given - Provider: Shireen Medrano RN) docusate sodium (COLACE) capsule 100 mg (CANCELED) [...] Iza Pedro RN - Reason: Patient/family refused) 0810 (Given - Provider: Armando Dey RN)2000 (Not Given - Provider: Iza Pedro RN - Reason: Other - Comment: loose stools) 0803 (Given - Provider: Shireen Medrano RN) furosemide [...] Queen RN) 0656 (Given - Provider: Iza Pedro RN) 06 (Given - Provider: Iza Pedro RN) metoprolol (LOPRESSOR) injection 5 mg 5 mg, intravenous, Once (Without Time Specified), 1 dose, Starting on Thu02/25/18 at 0655, Until Thu02/27/18 at 1311, Routine metoprolol (LOPRESSOR) tablet 50 mg (CANCELED) 50 mg, oral, 2 TIMES DAILY, First dose (after last modification) on Thu02/25/18 at 0900, Until Discontinued, Routine 910 (Given - Provider: Sherry Queen RN)2202 (Given - Provider: Iza Pedro RN) 0810 (Given - Provider: Armando Dey RN) metoprolol (LOPRESSOR) tablet 75 mg 75 mg, oral, 2 TIMES DAILY, First dose (after last modification) on Thu02/26/18 at 2100, Until Discontinued, Routine 2000 (Given - Provider: Iza Pedro RN) 08 (Given - Provider: Shireen Medrano RN) potassium chloride SA (K-DUR, KLOR-CON) tablet 10 mEq 10 mEq, oral, 2 TIMES DAILY, First dose on Thu02/23/18 at 1600, Until Discontinued, Routine 912 (Given - Provider: Sherry Queen RN)1738 (Given - Provider: Marni Mckeon RN) 0810 (Given - Provider: Armando Dey RN)1509 (Given - Provider: Armando Dey, STACIE) 0803 (Given - Provider: Shireen Medrano, STACIE) senna [...] 2202 (Given - Provider: Iza Pedro RN) 08 (Given - Provider: Armando Dey RN)2000 (Not Given - Provider: Iza Pedro RN - Reason: Patient/family refused) 0803 (Given - Provider: Shireen Medrano RN) sertraline (ZOLOFT) tablet 50 mg 50 mg, oral, DAILY, First dose on Thu02/23/18 at 0900, Until Discontinued, Routine 0911 (Given - Provider: Sherry Queen RN) 0810 (Given - Provider: Armando Dey, STACIE) 0803 (Given - Provider: Shireen Medrano RN) simvastatin [...] at 1245, Until Thu02/25/18 at 0920, STAT 0200 (Rate Documented - [...] Pain, Routine 1813 (Given - Provider: Marni Mckeno, STACIE) 0056 (Given - Provider: Iza Pedro, STACIE)1323 (Given - Provider: Armando Dey, STACIE) Linked [...] mg 1 naloxone (NARCAN) 0.4 mg/mL injection 1 acetaminophen (TYLENOL) suppository 975 mg 1 02/22/2018 dextrose 50 % solution 12.5-25 g 1 02/23/20 18 gabapentin (NEURONTIN) solution 300 mg 1 HYDROmorphone injection (DIL AUDID) 0.5 mg/1 mL syringe 0.2-0.4 mg 1 02/22/2018 insulin regular (HUMULIN R, NOVOLIN R) [...] 10/2017 documented in this encounter Care Teams Film And Video Editor Relationship Specialty Start Date End Date Kit Burch MD [address] [place] [phone] PCP - General 01/15/18 10/29/23 documented as of this encounter
--- OUTSIDE RECORDS SUMMARY | 2024-05-13 22:53 | XMS_ITS | Encounter Summary ---
Author Organization [facility] Address [address] [place] [address] Care Team Providers Care Peg Driver Name Role Phone Unavailable Primary Care Provider Unavailabl e Encounter Details Date Type Department Care Team (Late st Contact Info) Description 06/09/2006 Results Only [facility] - Maple conversion [address] [place] [address] Unknown, Provider, Social History Tobacco Use Types [...] 05/27/2024 13:00 EDT Office Visit [facility]- [address] 260881 Vicki Main MD [address] [place] [address] 4 [place] [phone] 03/08/2025 11:00 EDT Office Visit [facility] Dermatology 130 [facility], [place], [place] 74[address] Cynthia Salinas MD [address] [place] [address] 5 [place] [phone] documented as of this encounter Procedures Procedure Name Priority Date/Time Associated Diagnosis Comments VITAMIN B12 Routine 06/09/2006 7:53 EST documented in this encounter Results * VITAMIN B12 (06/09/2006 7:53 EST) Vitamin B-12 492 250 - 1100 pg/ml [facility] 06/09/2006 7:53 EST 06/09/2006 21:56 EST Provider Unknown MD CHEMISTRY & BLOOD GA S ORDERABLES [facility] [address] [place] [address] documented in this encounter Visit Diagnoses Not on filedocumented in this encounter
--- OUTSIDE RECORDS SUMMARY | 2024-05-13 22:53 | XMS_ITS | Encounter Summary ---
Author Organization [facility] Address [address] [place] [address] Care Team Providers Care Shirt Bander Name Role Phone Unavailable Primary Care Provider Unavailabl e Encounter Details Date Type Department Care Team (Latest Contact Info) Description 04/08/2002 9:00 EDT - 04/08/2002 11:59 EDT Hospital Encounter [facility] General Surgery Unit [address] [place] [address] 079221 Vignesh Barkley MD [address] [place] [phone] Discharge Disposition: Home or Self Care [...] Info) Description 05/27/2024 13:00 EDT Office Visit [facility] ENT- Main [place] [address] [place], [place] 276171 Vicki Main MD 111 [facility], [facility] 4 [place] [address] 03/08/2025 11:[address] [facility] Dermatology 130 [facility], [place], [place] [address] Cynthia Salinas MD 111 [facility], Level 5 [place] [address] documented as of this encounter Visit Diagnoses Not on filedocumented in this encounter
--- OUTSIDE RECORDS SUMMARY | 2024-05-13 22:53 | XMS_ITS | Encounter Summary ---
Author Organization [facility] Address [address] [place] [address] Care Team Providers Care Home Inspector Name Role Phone Kit Burch MD Primary Care Provider [phone] Reason for Visit * Reason Onset Date Comments Patient Information Update 02/09/2018 Encounter Details Date Type Department Care Team (Late st Contact Info) Description 02/09/2018 Telephone [facility] Cardiothoracic Surgery [address] [phone] Sharla Clements RN [address] [place] [address] Patient Information Update Social History Tobacco Use [...] Info) Description 05/27/2024 13:00 EDT Office Visit [facility] [address] [phone] Vicki Main MD [address] [place] [address], Level 4 [place] [address] 03/08/2025 11:00 EDT Office Visit [facility] Dermatology 130 [facility], [place] [address] Cynthia Salinas MD 111 [facility] 5 [place] [address] documented as of this encounter Visit Diagnoses Not on filedocumented in this encounter Care Teams Home Inspector Relationship Specialty Start Date End Date Kit Burch MD [address] [place] [address] PCP - General 01/15/18 10/29/23 documented as of this encounter
--- OUTSIDE RECORDS SUMMARY | 2024-05-13 22:53 | XMS_ITS | Encounter Summary ---
Author Organization [facility] Address [address] [place] [address] Care Team Providers Care Trim Setter Name Role Phone Kit Burch MD Primary Care Provider [phone] Reason for Visit * Reason Onset Date Comments Other 02/09/2018 Encounter Details Date Type Department Care Team (Late st Contact Info) Description 02/09/2018 Telephone [facility] Cardiothoracic Surgery [address] [address] Sharla Clements RN 111 [place] [address] Other Social History Tobacco Use Types Packs/Day Years Used Date Smoking Tobacco: Former Cigarettes 0 07/27/1961 - 07/27/1962 Smokeless Tobacco: Never Sex and Gender Information Value Date Recorded Sex Assigned at Not on file Gender Identity Female 11/09/2019 12:42 EDT Sexual Orientation Not on file documented as of this encounter Miscellaneous Notes * Telephone Encounter - Sharla Clements RN - 02/09/[address] Surgery Update Regarding Nasal Culture Results Telephone Call The following information was reviewed with Patient: 1) Nasal culture negative with no treatment needed. 2) Refer to Handout on Pre-Operative Screening and Skin Preparation Instructions given previously for review. 3) Contact our office if you have any questions at or [phone]. Verbalized understanding. documented in this encounter Plan of Treatment Upcoming Encounters Date Type Department Care Team (Late st Contact Info) Description 05/27/2024 13:00 EDT [facility] [address] [place], [place] 231491 Vicki Main MD 111 [facility], [facility] 4 [place] [phone] 03/08/2025 11:00 EDT Office Visit [facility] Dermatology 130 [facility], [place], [place] [address] Cynthia Salinas MD 111 [facility], [facility] 5 [place] [address] documented as of this encounter Visit Diagnoses Not on filedocumented in this encounter Care Teams Trim Setter Relationship Specialty Start Date End Date Kit Burch MD [facility] [address] [place] [address] PCP - General 01/15/18 10/29/23 documented as of this encounter
--- OUTSIDE RECORDS SUMMARY | 2024-05-13 22:53 | XMS_ITS | Encounter Summary ---
Author Organization [facility] Address [address] [place] [address] Care Team Providers Care Cashier And Salesperson Name Role Phone Kit Burch MD Primary Care Provider [phone] Reason for Visit * Reason Onset Date Comments Confirmation 02/19/2018 Encounter Details Date Type Department Care Team (Late st Contact Info) Description 02/19/2018 Telephone [facility] Cardiothoracic Surgery - [address] [address] Chaya Medrano RN Confirmation Social [...] where howevertwo cell phones (her cell phone) [phone] (daughter cell) [phone] Plan: As above Patient verbalized understanding of Pre-Operative Confirmation Call Information. No barriers to learning identified: Yes * Telephone Encounter - Martha Rodriguez - 02/19/2018 1120 EDT Daughter returning call to CT Surgery RN. Requesting return call to [phone]. * Telephone Encounter - Chaya Medrano RN [...] Description 05/27/2024 13:00 EDT Office Visit [facility] ENT- Main [address] 455191 Vicki Main MD 111 [facility], [facility] 4 [place] [phone] 03/08/2025 11:00 EDT Office Visit [facility] Dermatology 130 [facility], [place] [address] Cynthia Salinas MD 111 [facility], [facility] 5 [place] [address] documented as of this encounter Visit Diagnoses Not on filedocumented in this encounter Care Teams Cashier And Salesperson Relationship Specialty Start Date End Date Kit Burch MD [address] [place] [address] [address] [place] [address] PCP - General 01/15/18 10/29/23 documented as of this encounter
--- OUTSIDE RECORDS SUMMARY | 2024-05-13 22:53 | XMS_ITS ---
Author Organization Unknown Address [address] [place] [phone] Phone Care Team Providers Care Analyst Geochemical Prospecting Name Role Phone CHIDI GALLEGOS Attending Unavailable Immunization Immunization Date Status Additional Notes Code Code System pneumococcal polysaccharide PPV23 03/02/2012 Completed 33 CVX Results MM DIGITAL SCR W PAIGE BILATE RAL - Completed: 04/10/2021 13:51 LOINC: Digital mammograms were inte rpreted according to the usual protocol including computer analysis with Sion Powerx system including tomosynthesis. Comparison is made with [...] D Saturday, April 10, 2021 1:54:46 PM [id number] Electronically Reviewed and Signed By: LETICIA JACK M.D. RADIOLOGIST 04/11/21 08:31 TECHNOLOGIST: Natalia Mc, RT (R)(M)(CT) Social History Type Status Start Date End Date Code Code Syst em Smoking History Never smoker (Never Smoked) [id number] SNOMED CT Sex Female Assessment You had [...] NOS L LEG active SNOMED-CT GERD active [id number] SNOMED-CT HYPOTHYROIDISM active 56491992 SNOME D-CT CHF active 96953572 SNOMED-CT Allergies and Adverse Reactions Allergy Substance [...]
--- OUTSIDE RECORDS SUMMARY | 2024-05-13 22:53 | XMS_ITS | Encounter Summary ---
Author Organization [facility] Address [address] [place] [address] Care Team Providers Care Spoke Maker Name Role Phone Unavailable Primary Care Provider Unavailabl e Encounter Details Date Type Department Care Team (Late st Contact Info) Description 12/03/2004 Results Only [facility] - Maple conversion [address] [place] [address] Unknown, Provider, Social History Tobacco Use Types [...] 05/27/2024 13:00 EDT Office Visit [facility]- Main [address] 302741 Vicki Main MD [address] [place] [address] 4 [place] [phone] 03/08/2025 11:00 EDT Office Visit [facility] Dermatology 130 [facility], [place], [place] 3699[address] Cynthia Salinas MD [address] [place] [address] 5 [place] [phone] documented as of this encounter Procedures Procedure Name Priority Date/Time Associated Diagnosis Comments VITAMIN B12 Routine 12/03/2004 9:06 EDT documented in this encounter Results * VITAMIN B12 (12/03/2004 9:06 EDT) Vitamin B-12 512 250 - 1100 pg/ml [facility] 12/03/2004 9:06 EDT 12/03/2004 22:15 EDT Provider Unknown MD CHEMISTRY & BLOOD GA S ORDERABLES [facility] [address] [place] [address] documented in this encounter Visit Diagnoses Not on filedocumented in this encounter
--- OUTSIDE RECORDS SUMMARY | 2024-05-13 22:53 | XMS_ITS | Encounter Summary ---
Author Organization [facility] Address [address] [place] [address] Care Team Providers Care Sap Project Manager Name Role Phone Jewel Fontenot MD Primary Care Provider [phone] Encounter Details Date Type Department Care Team (Late st Contact Info) Description 11/23/2017 Results Only Imaging [facility] [phone] Unknown, Provider, Social History Tobacco Use Types [...] Description 05/27/2024 13:00 EDT [facility]- Main [address] [phone] Vicki Main MD [address] [place] [address] 4 [place] [address] 03/08/2025 11:00 EDT [facility] [address] [place] [address]26262 Cynthia Salinas MD [address] [place] [address] 5 [place] [phone] documented as of this encounter Procedures Procedure Name Priority Date/Time Associated Diagnosis Comments OUTSIDE IMAGES ? ECHO IMAGES 11/23/2017 13:38 EDT documented in this encounter Results * OUTSIDE IMAGES ??? ECHO IMAGES (11/23/2017 13:38 EDT) Anatomical Region Laterality Modality Other 11/23/2017 13:3 8 EDT Narrative 11/23/2017 13:38 EDT This is an outside study - there is no report. Procedure Note CITY COMPTROLLER, IMAGING - 12/29/2017 This is an outside study - there is no report. Provider Unknown MD [facility] OTHER IMAGING OR DERABLES documented in this encounter Visit Diagnoses Not on filedocumented in this encounter Care Teams Sap Project Manager Relationship Specialty Start Date End Date Jewel Fontenot MD [address] [facility] [address] [place] [address] PCP - General 06/01/15 01/14/18 documented as of this encounter
--- OUTSIDE RECORDS SUMMARY | 2024-05-13 22:53 | XMS_ITS | Encounter Summary ---
Author Organization [facility] Address [address] [place] [address] Care Team Providers Care Line Cleaner Name Role Phone Kit Burch MD Primary Care Provider [phone] Reason for Referral * Cardiology (Routine) - New Request Specialty Diagnoses / Procedures Referred By Contac t Referred To Contact Diagnoses Moderate aortic stenosis Procedures LEFT HEART CATH Tyrell Vogt MD Referral ID Status Reason Start Date Expiration Date V isits Requested Visits Authorized [id number] New Request 01/19/2018 1 1 * Radiology Services (Routine) - New Request Specialty Diagnoses / Procedures Referred By Contac t Referred To Contact Diagnoses Moderate aortic stenosis Procedures CHEST PA AND LATERAL Tyrell Vogt MD Referral ID Status Reason Start Date Expiration Date V isits Requested Visits Authorized [id number] New Request 01/19/2018 1 1 Reason for [...] Expiration Date Visits Re quested Visits Authorized [id number] Closed 1 1 Encounter Details Date Type Department Care Team (Latest Contact Info) Description 01/19/2018 8:30 EDT Office Visit [facility] Cardiothoracic Surgery - Main [place] [address] [place], [place] [address] Tyrell Vogt MD Moderate aortic stenosis (Primary [...] will need a cardiac cath here at [facility]. We will notify you of the [...] artery stenosis, then I would ask the v block saw operator to place a stent at the time of her cardiac catheterization. The STS risk calculator was discussed with the patient and her mortality is 1.236% and the mortality and morbidity is 9.991% PLAN: 1. Routine pre-operative workup in place, cardiac catheterization ordered (if there was a flow limiting coronary artery stenosis, then I would ask the v block saw operator to place a stent at the time of hercardiac catheterization). 2. To OR on 02/15 for aortic valve replacement (perceval - bovine) . Tyrell Vogt MD documented in this encounter Plan of Treatment Upcoming Encounters Date Type Department Care Team (Late st Contact Info) Description 05/27/2024 13:00 EDT Office Visit [address] 2[address] Vicki Main MD [address] [place] [address], [facility] 4 [place] [phone] 03/08/2025 11:00 EDT Office Visit [facility] Dermatology 130 [facility], [place] [address] Cynthia Salinas MD [address] [place] [address], [facility] 5 [place] [phone] documented as of this encounter Procedures Procedure Name Priority Date/Time Associated Diagnosis Comments LEFT HEART CATH Routine 02/08/2018 13:48 EDT Moderate aortic stenosis CHEST PA AND LATERAL Routine 01/19/2018 10:14 EDT Moderate aortic stenosis documented in this encounter Results * LEFT HEART CATH (02/08/2018 13:48 EDT) Anatomical Region Laterality Modality Other 02/08/2018 13:4 8 EDT Narrative 02/10/2018 9:44 EDT [address] [place] [address] Catheterization Laboratory Study Patient: Liya Anders ?Study Date: ? 02/08/2018 ? Accession #: ?[id number] : ? 1945 Referring: Kit Burch MD [...] Note Yonatan Arellano MD - 02/10/[address] [place] [address] Catheterization Laboratory Study Patient: Liya Anders Study [...] 10:14 AM Clinical History/Comments: I35.0-Nonrheumatic aortic (valve) [id number]; mod-severe , pre-op AVR COMPARISON: None Findings: [...] 10:14 AM Clinical History/Comments: I35.0-Nonrheumatic aortic (valve) [id number]; mod-severe , pre-op AVR COMPARISON: None Findings: [...] Vera 25 mg capsule Take by mouth. 04 /11/2023 Cinnamon Bark 500 mg capsule Take by mouth. 10/30/2023 mv-min/iron/folic/calcium /vitK (WOMEN'S MULTIVITAMIN ORAL) Take by mouth. 018 cranberry fruit extract (CRANBERRY ORAL) Take by mouth. 4 added in this encounter Care Teams Line Cleaner Relationship Specialty Start Date End Date Kit Burch MD [address] [email or web address] [address] [place] [address] PCP - General 01/15/18 10/29/23 documented as of this encounter
--- OUTSIDE RECORDS SUMMARY | 2024-05-13 22:53 | XMS_ITS | Encounter Summary ---
Author Organization [facility] Address [address] [place] [address] Care Team Providers Care High School Assistant Football Coach Name Role Phone Kit Burch MD Primary Care Provider [phone] Encounter Details Date Type Department Care Team (Late st Contact Info) Description 02/08/2018 Results Only [facility] Cardiothoracic Surgery - [address] [phone] Tyrell Vogt MD Social History Tobacco Use [...] Info) Description 05/27/2024 13:00 EDT Office Visit [facility] [address] 211761 Vicki Main MD [address] [place] [address] 4 [place] [phone] 03/08/2025 11:00 EDT Office Visit [facility] Dermatology 130 [facility], [place] [address] Cynthia Salinas MD [address] [place] [address] 5 [place] [phone] documented as of this encounter Procedures Procedure Name Priority Date/Time Associated Diagnosis Comments PREPARE RED BLOOD CELLS Routine 02/08/2018 16:28 EDT PREPARE RED BLOOD CELLS Routine 02/08/2018 16:28 EDT TYPE AND SCREEN Routine 02/08/2018 14:54 EDT documented in this encounter Results * PREPARE RED BLOOD CELLS (02/08/2018 16:28 EDT) Product Code R1299C66 [facility] BLOOD BANK Donor Number [id number] [facility] BLOOD B[facility] Unit ABO O [facility] Unit Rh POS [facility] Unit Status RE^Released From [facility] BLOOD BANK Product Expiration Date [id number] [facility] BLOOD B[facility] Unit Blood Type Code 5100 [facility]OD [facility] Coding System [id number] [facility] BLOOD BANK 02/08/2018 16:2 8 EDT Tyrell Vogt MD BLOOD BANK ORDERA BLES Performing Organization Address City/[facility]/ZIP Co de Phone Number [facility] BLOOD [facility] * PREPARE RED BLOOD CELLS (02/08/2018 16:28 EDT) Product Code [id number] [facility] BLOOD BANK Donor Number [id number] [facility] BLOOD BANK Unit ABO O [facility] Unit Rh POS [facility] BLOOD [facility] Unit Status RE^Released From [facility] BLOOD BANK Product Expiration Date [id number] [facility] BLOOD B[facility] Unit Blood Type Code 5100 [facility] BLOOD [facility] Coding System [id number] [facility] BLOOD BANK 02/08/2018 16:2 8 EDT Tyrell Vogt MD BLOOD BANK ORDERA BLES [facility] BLOOD BANK * TYPE AND SCREEN (02/08/2018 14:54 EDT) Antibody Screen Negative [facility] BLOOD BANK Specimen Expires: 02/25/2018 @ 23:59 [facility] BLOOD BANK ABO O [facility] BLOOD BANK Rh Factor Positive [facility] BLOOD BANK 02/08/2018 14:5 4 EDT Tyrell Vogt MD BLOOD BANK TESTS Performing Organization Address City/[facility] Co de Phone Number [facility] BLOOD BANK documented in this encounter Visit Diagnoses Not on filedocumented in this encounter Care Teams High School Assistant Football Coach Relationship Specialty Start Date End Date Kit Burch MD [facility] [employer] [address] [place] [address] PCP - General 01/15/18 10/29/23 documented as of this encounter
--- OUTSIDE RECORDS SUMMARY | 2024-05-13 22:53 | XMS_ITS | Encounter Summary ---
Author Organization [facility] Address [address] [place] [address] Care Team Providers Care Nipple Machine Operator Name Role Phone Unavailable Primary Care Provider Unavailabl e Encounter Details Date Type Department Care Team (Late st Contact Info) Description 02/15/2007 Results Only [facility] - Maple conversion [address] [place] [address] Unknown, Provider, Social History Tobacco Use Types [...] Info) Description 05/27/2024 13:00 EDT Office Visit [facility]- [address] 157051 Vicki Main MD [address] [place] [address] 4 [place] [phone] 03/08/2025 11:00 EDT Office Visit [facility] Dermatology 130 [facility], [place], [place] [address] Cynthia Salinas MD [address] [place] [address] 5 [place] [phone] documented as of this encounter Procedures Procedure Name Priority Date/Time Associated Diagnosis Comments VITAMIN B12 Routine 02/15/2007 12:31 EDT documented in this encounter Results * VITAMIN B12 (02/15/2007 12:31 EDT) Vitamin B-12 548 250 - 1100 pg/ml [facility] 02/15/2007 12:3 1 EDT 02/15/2007 21:18 EDT Provider Unknown MD CHEMISTRY & BLOOD GA S ORDERABLES [facility] [address] [place] [address] documented in this encounter Visit Diagnoses Not on filedocumented in this encounter
--- OUTSIDE RECORDS SUMMARY | 2024-05-13 22:53 | XMS_ITS | Encounter Summary ---
Author Organization [facility] Address [address] [place] [address] Care Team Providers Care Research Mechanic Name Role Phone Jewel Fontenot MD Primary Care Provider [phone] Encounter Details Date Type Department Care Team (Late st Contact Info) Description 10/22/2016 Results Only Imaging [facility] [phone] Unknown, Provider, Social History Tobacco Use Types [...] Info) Description 05/27/2024 13:00 EDT Office Visit [facility]- Main [address] [phone] Vicki Main MD [address] [place] [address] 4 [place] [address] 03/08/2025 11:00 EDT Office Visit [facility] Dermatology [address] [place] [address] 895642 Cynthia Salinas MD [address] [place] [address] 5 [place] [phone] documented as of this encounter Procedures Procedure Name Priority Date/Time Associated Diagnosis Comments OUTSIDE IMAGES ? ECHO IMAGES 10/22/2016 13:48 EDT documented in this encounter Results * OUTSIDE IMAGES ??? ECHO IMAGES (10/22/2016 13:48 EDT) Anatomical Region Laterality Modality Other 10/22/2016 13:4 8 EDT Narrative 10/22/2016 13:48 EDT This is an outside study - there is no report. Procedure Note SCADA TECHNICIAN, IMAGING - 12/29/2017 This is an outside study - there is no report. Provider Unknown MD ADKINS OTHER IMAGING OR DERABLES documented in this encounter Visit Diagnoses Not on filedocumented in this encounter Care Teams Research Mechanic Relationship Specialty Start Date End Date Jewel Fontenot MD [address] [facility] [address] [place] [phone] PCP - General 06/01/15 01/14/18 documented as of this encounter
--- OUTSIDE RECORDS SUMMARY | 2024-05-13 22:53 | XMS_ITS | Encounter Summary ---
Author Organization [facility] Address [address] [place] [address] Care Team Providers Care Fleet Manager/Dispatch Name Role Phone Kit Burch MD Primary Care Provider [phone] Reason for Visit * Reason Onset Date Comments Pre-visit Planning 02/08/2018 Encounter Details Date Type Department Care Team (Late st Contact Info) Description 02/08/2018 Telephone [facility] Cardi[place]or[place] [address] Sharla Clements, RN [address] [place] [address] Pre-visit Planning Social History Tobacco Use Types [...] Sharla Clements RN - 02/08/2018 [address] [address] (Toll Free) (Office) Preoperative Instructions - Cardiac Surgery Patients Dear Ms. Liya Anders, Welcome to the Division of Cardiothoracic Surgery at the [facility]. We look forward to making your [...] located in the Main Entrance of the Public [facility]ide Center at the [facility]. If you have been pre-registered over the telephone, you will still need to stop at Registration. Ifyou use the parking garage, take the elevator to Level 3 and continue down the malik to Registrationwhich is on your left, if you use the [facility], and on your right if you use the [facility]. If you use [facility] Park[facility], enter the front door (Level 3 [...] Hold. We have Family Centered Care at [facility] thus the number of family and [...] those of you who reside outside the [facility]), should you or your loved ones require accommodations during your hospitalization. Discounts apply at many, thus remind the Hotel / Motel that you are a patient or family member to secure the discount that may be offered. If you need aletter for the discount or further information contact The Office of Patient and Family Advocacy [phone] for assistance. Additional resources and information are also available on our [facility] web site at [email or web address]. Your length of stay at the Hospital [...] Primary Care Physician / Doctor and your Apparel Cutter / Hear Doctor if any of your [...] [facility]. You will be given another inspirometer at [...] additional bras following discharge, you may call [facility] at or or Web Site: [email or web address] While waiting for your cardiac surgery, dental [...] most comfortable. Do not wear any nail mosotho, makeup, powder, lotion, deodorant or jewelry of [...] your Primary Care Physician / Doctor or Apparel Cutter / Doctor (for cardiac surgery patients). If [...] Info) Description 05/27/2024 13:00 EDT Office Visit [facility] ENT- Main [place] [address] [place], [place] [address] Vicki Main MD 111 [facility], [facility] [address] [place] [phone] 03/08/2025 11:[address] [facility] Dermatology [address] [facility], [place], [place] [address] Cynthia Salinas MD 111 [facility], [facility] [address] [place] [address] documented as of this encounter Visit Diagnoses Not on filedocumented in this encounter Care Teams Fleet Manager/Dispatch Relationship Specialty Start Date End Date Kit Burch MD [address] [place] [address] [address] [place] [address] PCP - General 01/15/18 10/29/23 documented as of this encounter
--- OUTSIDE RECORDS SUMMARY | 2024-05-13 22:53 | XMS_ITS | Encounter Summary ---
Author Organization [facility] Address [address] [place] [address] Care Team Providers Care Network Field Engineer Name Role Phone Kit Burch MD Primary Care Provider [phone] Reason for Visit * Reason Onset Date Comments Other 01/28/2018 change in surger y date Encounter Details Date Type Department Care Team (Late st Contact Info) Description 01/28/2018 Telephone [facility] Cardiothoracic Surgery - Main [address] [address] Tyrell Vogt MD Other (change [...] Info) Description 05/27/2024 13:00 EDT Office Visit [facility] ENT- [address] [address] Vicki Main MD [address] [place] [address] 4 [place] [phone] 03/08/2025 11:00 EDT Office Visit [facility] Dermatology [address] [place] [address], [place], [place] [address] Cynthia Salinas MD [address] [place] [address] 5 [place] [address] documented as of this encounter Visit Diagnoses Not on filedocumented in this encounter Care Teams Network Field Engineer Relationship Specialty Start Date End Date Kit Burch MD [facility] PROFESSIONAL [facility] [address] [place] [address] PCP - General 01/15/18 10/29/23 documented as of this encounter
--- OUTSIDE RECORDS SUMMARY | 2024-05-13 22:53 | XMS_ITS | Encounter Summary ---
Author Organization [facility] Address [address] [place] [address] Care Team Providers Care Director Product Development Name Role Phone Jewel Fontenot MD Primary Care Provider [phone] Reason for Visit * Reason Onset Date Comments Referral Request 12/24/2017 Elective Referr al Encounter Details Date Type Department Care Team (Late st Contact Info) Description 12/24/2017 Telephone [facility] Cardiothoracic Surgery - [address] [address] Corinne Burnette MD 111 [facility], Level [address] [place] [address] Referral Request (Elective Referral) Social [...] Referral: Dr. De Dios PCP: Dr. Jewel Fnotenot If cardiac cath completed, date and wire stitcher operator? Not done LV function or EF %? EF 65-70% on recent echo Under [facility] following patient? Dr. De Dios _ Medication [...] Testing Echo - date completed: 11/23/17 at [facility] - spoke with Daily at Dr. [...] Description 05/27/2024 13:00 EDT Office Visit [facility] Main [address] [address] Vicki Main MD 111 [facility], [facility] 4 [place] [address] 03/08/2025 11:00 EDT Office Visit [facility] Dermatology [address] [place] [address], [place] [address] Cynthia Salinas MD 111 [facility] 5 [place] [address] documented as of this encounter Visit Diagnoses Not on filedocumented in this encounter Care Teams Director Product Development Relationship Specialty Start Date End Date Jewel Fontenot MD [address] [facility] [address] [place] [address] PCP - General 06/01/15 01/14/18 documented as of this encounter
--- OUTSIDE RECORDS SUMMARY | 2024-05-13 22:53 | XMS_ITS | Encounter Summary ---
Author Organization [facility] Address [address] [place] [address] Care Team Providers Care Hop Separator Name Role Phone Kit Burch MD Primary Care Provider [phone] Reason for Visit * Reason Onset Date Comments Other 02/08/2018 Encounter Details Date Type Department Care Team (Late st Contact Info) Description 02/08/2018 Telephone [facility] Cardiothoracic Surgery - [facility] [address] [place] [address] Sharla Clements RN [address] [place] [address] Other Social History Tobacco Use Types Packs/Day Years Used Date Smoking Tobacco: Former Cigarettes 0 07/27/1961 - 07/27/1962 Smokeless Tobacco: Never Sex and Gender Information Value Date Recorded Sex Assigned at Not on file Gender Identity Female 11/09/2019 12:42 EDT Sexual Orientation Not on file documented as of this encounter Miscellaneous Notes * Telephone Encounter - Sharla Clements RN - 02/08/2018 6826 EDT Cardiac Surgery Nursing Pre-Operative Teaching I [...] Mechanical Valve Utilized NA Antibiotic Prophylaxis Handout [employer] for Prevention of Infective Bacterial [...] surgery Note routed to Case Management and Fish Boning Machine Feeder if there are discharge needs anticipated documented in this encounter Plan of Treatment Upcoming Encounters Date Type Department Care Team (Late st Contact Info) Description 05/27/2024 13:00 EDT Office Visit [facility] ENT- Main [address] [address] Vicki Main MD [address] [place] [phone] 03/08/2025 11:00 EDT Office Visit [facility] Dermatology [address] [facility], [place] [address] Cynthia Salinas MD [address] [place] [address] 5 [place] [phone] documented as of this encounter Visit Diagnoses Not on filedocumented in this encounter Care Teams Hop Separator Relationship Specialty Start Date End Date Kit Burch MD [facility] PROFESSIONAL [facility] [address] [place] [address] PCP - General 01/15/18 10/29/23 documented as of this encounter
--- OUTSIDE RECORDS SUMMARY | 2024-05-13 22:53 | XMS_ITS | Encounter Summary ---
Author Organization [facility] Address [address] [place] [address] Care Team Providers Care Automobile Body Worker Name Role Phone Jewel Fontenot MD Primary Care Provider [phone] Encounter Details Date Type Department Care Team (Late st Contact Info) Description 12/28/2017 Results Only Imaging [facility] Cardiothoracic Surgery - [address] [phone] Tyrell Vogt MD Social History Tobacco Use [...] Info) Description 05/27/2024 13:00 EDT Office Visit [facility] ENT- [address] [phone] Vicki Main MD [address] [place] [address] 4 [place] [address] 03/08/2025 11:00 EDT Office Visit [facility] Dermatology [address] [place] [address] Cynthia Salinas MD [address] [place] [address] 5 [place] [phone] documented as of this encounter Visit Diagnoses Not on filedocumented in this encounter Care Teams Automobile Body Worker Relationship Specialty Start Date End Date Jewel Fontenot MD [address] [facility] [address] [place] [address] PCP - General 06/01/15 01/14/18 documented as of this encounter
== END 2024-05-13 22:47 | disposition home or self-care (01) ==
LOC: LBN 22:46
PROVIDERS: PCP Family Medicine; Visit Provider Physician Assistant Medical
DX: L08.9 Local infection of the skin and subcutaneous tissue, unspecified (principal)
CPT/HCPCS: 87070; 87205

== ENCOUNTER → 2024-06-06 13:57 | Outpatient (BNVA) | payer MEDICARE, MEDICAID, SELFPAY | PROVIDERS: PCP Family Medicine; Referring Provider Family Medicine; Visit Provider Physical Therapy Assistant | DX: I70.203 Unspecified atherosclerosis of native arteries of extremities, bilateral legs | CPT/HCPCS: 93922 ==

== ENCOUNTER → 2024-06-06 14:25 | Outpatient (BNVA) | payer MEDICARE, MEDICAID, SELFPAY | PROVIDERS: PCP Family Medicine; Referring Provider Family Medicine; Visit Provider Podiatrist | DX: I70.203 Unspecified atherosclerosis of native arteries of extremities, bilateral legs (principal); I73.89 Other specified peripheral vascular diseases; L60.3 Nail dystrophy; B35.1 Tinea unguium; G57.81 Other specified mononeuropathies of right lower limb; G57.82 Other specified mononeuropathies of left lower limb; I87.2 Venous insufficiency (chronic) (peripheral); M79.604 Pain in right leg; M79.671 Pain in right foot; M79.672 Pain in left foot; M79.605 Pain in left leg | CPT/HCPCS: 11719; 93922 ==

== ENCOUNTER 2024-07-25 17:50 | Outpatient (REF) | payer MEDICARE, MEDICAID, SELFPAY ==
--- OUTSIDE RECORDS SUMMARY | 2024-07-25 17:52 | XMS_ITS ---
Author Organization Unknown Address [address] [place] [phone] Phone Care Team Providers Care Time Study Analyst Name Role Phone AVRIL Singh Attending Unavailable CHIDI Cohen Primary Unavailable Results XR CALCANEUS 2V RT* - Comple giselle: 05/20/2022 10:20 LOINC: [facility] RADIOLOGY [place], [place] [address] PACS CONSUMER SAFETY OFFICER REPORT Patient Name: TROY SILVA MRN: Sex: : Age: [id number] F 1945 76 Account: Accession: Admit: StayType: [id number] 05/20/2022 CLINIC Ordered: Order ID: Submitted: Ordering Provider: 05/20/2022 10:17 [id number] [facility] Completed: Technologist: Resulted: 05/21/2022 [...] em Smoking History Never smoker (Never Smoked) [id number] SNOMED CT Sex Female Assessment You had [...] NOS L LEG active SNOMED-CT GERD active 342740445 SNOMED-CT HYPOTHYROIDISM active 84964558 SNOME D-CT CHF active 79099935 SNOMED-CT Allergies and Adverse Reactions Allergy Substance Reaction Severity Start Date Concern Status Co de Code System MORPHINE ?hallucinations (SNOMED-CT: null) Moderate Active 7060 RxNorm Plan of Treatment No Data Found Encounters Encounter Diagnosis Start Date Code Code Sys tem 05/20/2022 [id number] SNOMED-CT Personal Care Team Section Performer Name Performer Role Active Date Inactive Da te JAMES SACHIN PCP - Primary care physician 1
--- OUTSIDE RECORDS SUMMARY | 2024-07-25 17:52 | XMS_ITS | Encounter Summary ---
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, unspecified ulceration site Faye German DPM [address] [place] [address] [address] [place] [address] [facility] [address] [address] Referral ID Status Reason Start Date Expiration Date Visits Requested Visits Authorized [id number] Pending Review Consult, Test & Treat 4 07/25/2025 1 1 Encounter Details Date Type Department Care Team (Latest Contact Info) Description 07/25/2024 Transcribe Orders eD Incoming Referrals [phone] Faye German DPM [address] [place] [address] [address] [place] [address] 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, unspecified ulceration site Social History Tobacco Use Types Packs/Day Years Used Date Smoking Tobacco: Never Assessed Sex and Gender Information Value Date Recorded Sex Assigned at Not on file Gender Identity Not on file Sexual Orientation Not on file documented as of this encounter Plan of Treatment Scheduled Referrals Name Type Priority Associated Diagnoses Orde r Schedule Referral to Vascular Surgery Outpatient Referral Routine 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
--- OUTSIDE RECORDS SUMMARY | 2024-07-25 17:52 | XMS_ITS | Clinical Summary ---
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, unspecified ulceration site from Last 3 Months Social History Tobacco Use Types Packs/Day Years Used Date Smoking Tobacco: Never Assessed Sex and Gender Information Value Date Recorded Sex Assigned at Not on file Gender Identity Not on file Sexual Orientation Not on file Plan of Treatment Health Maintenance Due Date Last Done Comments Hepatitis C Screening 1963 Tetanus/Diphtheria/Pertussis Vaccines (1 - Tdap) 11/26 Pneumoccocal Vaccine: 65+ (1 of 1 - PCV) 1996 Zoster vaccine (1 of 2) 1996 Advance Directive 2001 Bone Density Scan 11/27/2011 RSV Vaccine (1 - 1-dose 75+ series) 2021 Covid-19 Vaccine ( - season) 2024 Influenza (Flu) vaccine (1 o f 1 - Influenza standard series) 03/27/2024
--- OUTSIDE RECORDS SUMMARY | 2024-07-25 17:52 | XMS_ITS ---
Author Organization Unknown Address [address] [place] [phone] Phone Care Team Providers Care Head Bander And Liner Operator Name Role Phone THOMASVICKIE ROCKWELL Lyly Attending Unavailable CHIDI Cohen Primary Unavailable Social History Type Status Start Date End Date Code Code Syst em Smoking History Never smoker (Never Smoked) 349844827 SNOMED CT Sex Female Assessment You had [...] NOS L LEG active SNOMED-CT GERD active 146664732 SNOMED-CT HYPOTHYROIDISM active 20264513 SNOME D-CT CHF active 35351251 SNOMED-CT Allergies and Adverse Reactions Allergy Substance Reaction Severity Start Date Concern Status Co de Code System MORPHINE ?hallucinations (SNOMED-CT: null) Moderate Active 4251 RxNorm Plan of Treatment No Data Found Encounters Encounter Diagnosis Start Date Code Code Sys tem Nonrheumatic aortic valve disorder, unspecified 2021 SNOMED-CT Personal Care Team Section Performer Name Performer Role Active Date Inactive Da te JAMES SACHIN PCP - Primary care physician 1
--- OUTSIDE RECORDS SUMMARY | 2024-07-25 17:52 | XMS_ITS ---
Author Organization Unknown Address [address] [place] [phone] Phone Care Team Providers Care In Home Sales Representative Name Role Phone CHIDI Cohen Attending Unavailable Results IMMUNOFIXATION AND SPEP SERU M* - Collect Date/Time: 03/06/2022 11:27 ID: [id number] [address] [place] [address], [id number] LOINC: Test Value Unit Reference Range Code [...] RATE* - Collect Date/Solomon e: 03/06/2022 11:27 ID: [id number] [address] [place] [address], [address] LOINC: 4537-7 Test Value Unit Reference Range Code Code System Flag SED. RATE 14 mm/hr L=0 H=30 4537-7 LOINC TSH THYROID STIMULATING HORM ONE* - Collect Date/Time: 03/06/2022 11:27 ID: [id number] [address] [place] [address], [address] LOINC: 3014-8 Test Value Unit Reference Range Code Code System Flag TSH 0.617 uIU/mL L=0.360 H=3.740 3014-8 LOINC CBC W/ DIFFERENTIAL* - Colle ct Date/Time: 03/06/2022 11:27 ID: [id number] [address] [place] [address], [address] LOINC: 30802-1 Test Value Unit Reference Range Code Code System Flag WBC 9.65 th/cmm L=5.00 H=10.00 6690-2 LOINC NEUT % 60.5 % L=40.0 H=80.0 LYMPH % 25.8 % L=10.0 H=50.0 MONO % 10.8 % L=2.0 H=12.0 46866-3 LOINC EOS % 1.7 % L=0.0 H=8.0 BASO % 0.7 % L=0.0 H=3.0 IG % 0.5 % L=0.0 H=1.1 2514-8 LOINC NRBC % 0.0 % L=0.0 H=0.0 32129-1 LOINC NEUT abs count 5.8 th/cmm L=1.6 H=8.4 751-8 LOINC LYMPH abs count 2.5 th/cmm L=1.5 H=4.0 731-0 LOINC MONO abs count 1.0 th/cmm L=0.2 H=1.0 742-7 LOINC EOS abs count 0.2 th/cmm L=0.0 H=0.5 711-2 LOINC BASO abs count 0.1 th/cmm L=0.0 H=0.2 704-7 LOINC IG abs count 0.1 th/cmm L=0.0 H=0.1 33004-2 LOINC NRBC abs count 0.0 mil/cmm L=0.0 H=0.0 64518-0 LOINC RBC 3.97 mil/cmm L=3.90 H=5.40 789-8 [...] L (CMP) - Collect Date/Time: 03/06/2022 11:27 ID: [id number] 8 [place], [place], [address] LOINC: 89662-3 Test Value Unit Reference Range Code Code [...] H=34 2028-9 LOINC ANION GAP 4.9 mmol/L 94989-9 LOINC CALCIUM SERUM 8.9 mg/dL L=8.2 H=10.2 79456-7 LOINC BILIRUBIN TOTAL 0.3 mg/dL L=0.0 H=1.3 1975-2 LOINC ALK. PHOS. 130 U/L L=46 H=116 6768-6 LOINC H SGOT (AST) 25 U/L L=15 H=37 1920-8 LOINC SGPT (ALT) 29 U/L L=12 H=78 1742-6 LOINC TOTAL PROTEIN 7.9 gm/dL L=6.0 H=8.0 2885-2 LOINC ALBUMIN 3.7 gm/dL L=3.4 H=5.0 1751-7 LOINC AGE 75 years eGFR (non-Afr.Amer.) 53 mL/min 57585-9 LOINC eGFR (Afr-Cypriot) 64 mL/min 22064-6 LOINC Social History Type Status Start Date End Date Code Code Syst em Smoking History Never smoker (Never Smoked) 691797932 SNOMED CT Sex Female Assessment You had [...] NOS L LEG active SNOMED-CT GERD active 635921258 SNOMED-CT HYPOTHYROIDISM active 32831711 SNOME D-CT CHF active 95256659 SNOMED-CT Allergies and Adverse Reactions Allergy Substance Reaction Severity Start Date Concern Status Co de Code System MORPHINE ?hallucinations (SNOMED-CT: null) Moderate Active 7341 RxNorm Plan of Treatment No Data Found Encounters Encounter Diagnosis Start Date Code Code Sys tem Neuralgia 03/06/2022 00867045 SNOMED-CT Personal Care Team Section Performer Name Performer Role Active Date Inactive Da te JAMES SACHIN PCP - Primary care physician 1
--- OUTSIDE RECORDS SUMMARY | 2024-07-25 17:53 | XMS_ITS ---
Author Organization Unknown Address [address] [place] [phone] Phone Care Team Providers Care Electrical Line Mechanic Name Role Phone AVRIL Singh Attending Unavailable CHIDI GALLEGOS Vicki Primary Unavailable Social History Type Status Start Date End Date Code Code Syst em Smoking History Never smoker (Never Smoked) 803283904 SNOMED CT Sex Female Assessment You had [...] NOS L LEG active SNOMED-CT GERD active 118189477 SNOMED-CT HYPOTHYROIDISM active 74221890 SNOME D-CT CHF active 17591750 SNOMED-CT Allergies and Adverse Reactions Allergy Substance Reaction Severity Start Date Concern Status Co de Code System MORPHINE ?hallucinations (SNOMED-CT: null) Moderate Active 0858 RxNorm Plan of Treatment No Data Found Encounters Encounter Diagnosis Start Date Code Code Sys tem 06/12/2022 [id number] SNOMED-CT Personal Care Team Section Performer Name Performer Role Active Date Inactive Da te JAMES SACHIN PCP - Primary care physician 1
--- OUTSIDE RECORDS SUMMARY | 2024-07-25 17:53 | XMS_ITS ---
Author Organization Unknown Address [address] [place] [phone] Phone Care Team Providers Care Aircraft Communicator Name Role Phone AVRIL Singh Attending Unavailable CHIDI GALLEGOS Vicki Primary Unavailable Social History Type Status Start Date End Date Code Code Syst em Smoking History Never smoker (Never Smoked) 518071108 SNOMED CT Sex Female Assessment You had [...] NOS L LEG active SNOMED-CT GERD active 022176552 SNOMED-CT HYPOTHYROIDISM active 65017796 SNOME D-CT CHF active 84499244 SNOMED-CT Allergies and Adverse Reactions Allergy Substance Reaction Severity Start Date Concern Status Co de Code System MORPHINE ?hallucinations (SNOMED-CT: null) Moderate Active 4565 RxNorm Plan of Treatment No Data Found Encounters Encounter Diagnosis Start Date Code Code Sys tem 07/10/2022 [id number] SNOMED-CT Personal Care Team Section Performer Name Performer Role Active Date Inactive Da te JAMES SACHIN PCP - Primary care physician 1
--- OUTSIDE RECORDS SUMMARY | 2024-07-25 17:54 | XMS_ITS ---
Author Organization Unknown Address [address] [place] [phone] Phone Care Team Providers Care Senior Linux Systems Administrator Name Role Phone YULISA Witt Attending Unavailable CHIDI Cohen Primary Unavailable Social History Type Status Start Date End Date Code Code Syst em Smoking History Never smoker (Never Smoked) 356329974 SNOMED CT Sex Female Assessment You had [...] NOS L LEG active SNOMED-CT GERD active 656883219 SNOMED-CT HYPOTHYROIDISM active 62033346 SNOME D-CT CHF active 41279536 SNOMED-CT Allergies and Adverse Reactions Allergy Substance Reaction Severity Start Date Concern Status Co de Code System MORPHINE ?hallucinations (SNOMED-CT: null) Moderate Active 0376 RxNorm Plan of Treatment No Data Found Encounters Encounter Diagnosis Start Date Code Code Sys tem Obstructive sleep apnea syndrome 01/07/2023 13069889 SNOMED-CT Personal Care Team Section Performer Name Performer Role Active Date Inactive Da te JAMES SACHIN PCP - Primary care physician 1
--- OUTSIDE RECORDS SUMMARY | 2024-07-25 17:54 | XMS_ITS ---
Author Organization Unknown Address [address] [place] [phone] Phone Care Team Providers Care Fine Arts Instructor Name Role Phone JACQUELINE Desouza Attending Unavailable CHIDI Cohen Primary Unavailable Social History Type Status Start Date End Date Code Code Syst em Smoking History Never smoker (Never Smoked) 110069833 SNOMED CT Sex Female Assessment You had [...] NOS L LEG active SNOMED-CT GERD active 009152385 SNOMED-CT HYPOTHYROIDISM active 90547868 SNOME D-CT CHF active 38199830 SNOMED-CT Allergies and Adverse Reactions Allergy Substance Reaction Severity Start Date Concern Status Co de Code System MORPHINE ?hallucinations (SNOMED-CT: null) Moderate Active 6267 RxNorm Plan of Treatment No Data Found Encounters Encounter Diagnosis Start Date Code Code Sys tem Hypertensive heart disease w ith congestive heart failure 11/05/2023 8280709 SNOMED-CT Personal Care Team Section Performer Name Performer Role Active Date Inactive Da te JAMES SACHIN PCP - Primary care physician 1
--- OUTSIDE RECORDS SUMMARY | 2024-07-25 17:54 | XMS_ITS ---
Author Organization Unknown Address [address] [place] [address] [phone] Phone Care Team Providers Care Asian Art Curator Name Role Phone FRANCIS BOSS Registered Nurse Unavaildavid e ESTEFANY Cohen Attending Unavailable CHIDI Cohen Primary Unavailable UNLISTED PROVIDER - REQUESTED Xhandoff Un available Results TROPONIN HIGH SENSITIVITY* - Collect Date/Time: 01/19/2023 15:50 [facility] ID: [id number] [address] [place] [address], [address] LOINC: 42009-1 Test Value Unit Reference Range Code Code System Flag TROPONIN HS 13.2 pg/mL L=0.0 H=60.4 Specimen seq. RANDOM LIPASE* NEW - Collect Date/T luke: 01/19/2023 15:50 [facility] ID: [id number] [address] [place] [address], [id number] LOINC: 3040-3 Test Value Unit Reference Range Code Code System Flag LIPASE. 54 U/L L=16 H=77 COMPREHENSIVE METABOLIC PANE L (CMP) - Collect Date/Time: 01/19/2023 15:50 [facility] ID: [id number] [address] [place] [address], [address] LOINC: 13885-3 Test Value Unit Reference Range Code Code [...] H=34 2028-9 LOINC ANION GAP 5.6 mmol/L 05800-8 LOINC CALCIUM SERUM 9.6 mg/dL L=8.2 H=10.2 10847-5 LOINC BILIRUBIN TOTAL 0.4 mg/dL L=0.0 H=1.3 1975-2 LOINC ALK. PHOS. 118 U/L L=46 H=116 6768-6 LOINC H SGOT (AST) 38 U/L L=15 H=37 1920-8 LOINC H SGPT (ALT) 34 U/L L=12 H=78 1742-6 LOINC TOTAL PROTEIN 7.2 gm/dL L=6.0 H=8.0 2885-2 LOINC ALBUMIN 3.5 gm/dL L=3.4 H=5.0 1751-7 LOINC AGE 77 years eGFR (non-Afr.Amer.) 59 mL/min 44508-2 LOINC eGFR (Afr-Cook Islander) 71 mL/min 73681-7 LOINC CBC W/ DIFFERENTIAL* - Colle ct Date/Time: 01/19/2023 15:50 [facility] ID: [id number] [address] [place], [place], [address] LOINC: 07041-9 Test Value Unit Reference Range Code Code System Flag WBC 9.97 th/cmm L=5.00 H=10.00 6690-2 LOINC NEUT % 59.2 % L=40.0 H=80.0 LYMPH % 29.4 % L=10.0 H=50.0 MONO % 9.3 % L=2.0 H=12.0 20979-0 LOINC EOS % 1.1 % L=0.0 H=8.0 BASO % 0.6 % L=0.0 H=3.0 IG % 0.4 % L=0.0 H=1.1 2514-8 LOINC NRBC % 0.0 % L=0.0 H=0.0 85611-3 LOINC NEUT abs count 5.9 th/cmm L=1.6 H=8.4 751-8 LOINC LYMPH abs count 2.9 th/cmm L=1.5 H=4.0 731-0 LOINC MONO abs count 0.9 th/cmm L=0.2 H=1.0 742-7 LOINC EOS abs count 0.1 th/cmm L=0.0 H=0.5 711-2 LOINC BASO abs count 0.1 th/cmm L=0.0 H=0.2 704-7 LOINC IG abs count 0.0 th/cmm L=0.0 H=0.1 86245-0 LOINC NRBC abs count 0.0 mil/cmm L=0.0 H=0.0 51701-0 LOINC RBC 3.69 mil/cmm L=3.90 H=5.40 789-8 LOINC L HEMOGLOBIN 12.7 gm/dL L=12.0 H=16.0 718-7 LOINC HEMATOCRIT 38 % L=37 H=47 4544-3 LOINC MCV 102 fL L=82 H=92 787-2 LOINC H MCH 34.4 pg L=27.0 H=31.0 785-6 LOINC H MCHC 33.7 % L=32.0 H=36.0 786-4 LOINC RDW-SD 46.4 fL L=39.0 H=49.0 788-0 LOINC PLATELET COUNT 210 th/cmm L=150 H=450 777-3 [facility] - Collect Date/Time: 01/19/2023 15:50 [facility] ID: [id number] [address] [place], [place], [id number] LOINC: 99669-2 Test Value Unit Reference Range Code Code System Flag COVID NEGATIVE Normal: Negative 08749-7 LOINC INFLUENZA A DNA NEGATIVE Normal: Negative 98305-3 LOINC INFLUENZA B DNA NEGATIVE Normal: Negative 44835-2 LOINC RSV DNA NEGATIVE Normal: Negative 36538-1 LOINC URINALYSIS WITH REFLEX CULT IF POSITIVE* - Collect Date/Time: 01/19/2023 15:35 [facility] ID: [id number] [address] [place], [place], [address] LOINC: 11638-0 Test Value Unit Reference Range Code Code System Flag COLLECTION MODE: VOID 92028-1 LOINC Color STRAW yellow 5778-6 LOINC Appearance CLEAR clear 5767-9 LOINC Glucose urine NEGATIVE negative mg/dl 05812-1 LOINC Bilirubin NEGATIVE negative 5770-3 LOINC Ketones NEGATIVE negative mg/dl 2514-8 LOINC Spec gravity <=1.005 1.003 - 1.030 5811-5 LOINC pH urine 7.0 5.0 - 7.0 2756-5 LOINC Protein NEGATIVE negative mg/dl 87954-1 LOINC Urobilinogen 0.2 <or= 1 EU/dl 68378-3 LOINC Nitrite. NEGATIVE negative 5802-4 LOINC Blood NEGATIVE negative 5794-3 LOINC Leukocytes. NEGATIVE negative MICROSCOPIC NOT INDICAT CT ABD PELVIS W IV CONTRAST ONLY - Completed: 01/19/2023 16:47 LOINC: [facility] [place], [place] [address] PACS DOLLY OPERATOR REPORT Patient Name: TROY SILVA MRN: Sex: : Age: [id number] F 1945 77 Account: Accession: Admit: StayType: [id number] 01/19/2023 E/R Ordered: Order ID: Submitted: Ordering Provider: 01/19/2023 15:30 [id number] PATRICK FARRAR Completed: Technologist: Resulted: 01/19/2023 16:47 [...] 1V - Co mpleted: 01/19/2023 15:28 LOINC: [facility] [place], [place] [address] PACS DOLLY OPERATOR REPORT Patient Name: TROY SILVA MRN: Sex: : Age: [id number] F 1945 77 Account: Accession: Admit: StayType: [id number] 01/19/2023 E/R Ordered: Order ID: Submitted: Ordering Provider: 01/19/2023 15:21 [id number] PATRICK FARRAR Completed: Technologist: Resulted: 01/19/2023 15:28 [...] em Smoking History Never smoker (Never Smoked) 626338923 SNOMED CT Sex Female Vital Signs Vital Sign Value Unit Mcpherson Value Mcpherson Unit Date/Time Recent/Initial? Code Code System Body Mass Index 39.38 kg/m2 01/19/2023 15:08 Initial 69349 -5 LOINC Systolic Blood Pressure 176 mm[Hg] [...] Saturation 96 % 2022 17:48 Most Recent 04274 -5 LOINC O2 Saturation 97 % 2022 15:08 Initial 20765 -5 LOINC Pulse 84.0 /min 01/19/2023 17:48 Most Recent 8867- 4 LOINC Pulse 88.0 /min 01/19/2023 15:08 Initial 8867- 4 LOINC Respiration 16 /min 01/20/20 17:48 Most Recent 9279- 1 LOINC Respiration 20 /min 01/20/20 15:08 Initial 9279- 1 LOINC Temperature 36.7 Babs 98.1 F 01/20/20 15:08 Initial 8310- 5 LOINC Weight 82.55 kg 182.00 lbs 01/19/2023 15:08 Initial 56337 -7 LOINC Assessment You had the following [...] NOS L LEG active SNOMED-CT GERD active 938108808 SNOMED-CT HYPOTHYROIDISM active 29447459 SNOME D-CT CHF active 66359644 SNOMED-CT Allergies and Adverse Reactions Allergy Substance Reaction Severity Start Date Concern Status Co de Code System MORPHINE ?hallucinations (SNOMED-CT: null) Moderate Active 7066 RxNorm Plan of Treatment No Data Found Encounters Encounter Diagnosis Start Date Code Code Sys tem Noninfectious gastroenteritis 01/19/2023 46869524 SNOMED-CT Personal Care Team Section Performer Name Performer Role Active Date Inactive Da te JAMES SACHIN PCP - Primary care physician
--- OUTSIDE RECORDS SUMMARY | 2024-07-25 17:54 | XMS_ITS ---
Author Organization Unknown Address [address] [place] [address] [phone] Phone Care Team Providers Care Dean For Student Affairs Name Role Phone JACQUELINE Desouza Attending Unavailable CHIDI Cohen Primary Unavailable Results COMPREHENSIVE METABOLIC PANE L (CMP) - Collect Date/Time: 11/06/2022 15:22 [facility] ID: [id number] [address] [place], [place], [address] LOINC: 97811-7 Test Value Unit Reference Range Code Code [...] H=34 2028-9 LOINC ANION GAP 9.3 mmol/L 54715-2 LOINC CALCIUM SERUM 9.2 mg/dL L=8.2 H=10.2 17633-0 LOINC BILIRUBIN TOTAL 0.3 mg/dL L=0.0 H=1.3 1975-2 LOINC ALK. PHOS. 135 U/L L=46 H=116 6768-6 LOINC H SGOT (AST) 26 U/L L=15 H=37 1920-8 LOINC SGPT (ALT) 35 U/L L=12 H=78 1742-6 LOINC TOTAL PROTEIN 7.1 gm/dL L=6.0 H=8.0 2885-2 LOINC ALBUMIN 3.8 gm/dL L=3.4 H=5.0 1751-7 LOINC AGE 76 years eGFR (non-Afr.Amer.) 42 mL/min 32232-8 LOINC eGFR (Afr-Guinean) 51 mL/min 47874-2 LOINC CBC W/ DIFFERENTIAL* - Colle ct Date/Time: 11/06/2022 15:22 [facility] ID: [id number] [address] [place], [place], [address] LOINC: 12110-8 Test Value Unit Reference Range Code Code System Flag WBC 15.74 th/cmm L=5.00 H=10.00 6690-2 LOINC H NEUT % 68.1 % L=40.0 H=80.0 LYMPH % 20.7 % L=10.0 H=50.0 MONO % 9.7 % L=2.0 H=12.0 29004-6 LOINC EOS % 0.4 % L=0.0 H=8.0 BASO % 0.3 % L=0.0 H=3.0 IG % 0.8 % L=0.0 H=1.1 2514-8 LOINC NRBC % 0.0 % L=0.0 H=0.0 87589-3 LOINC NEUT abs count 10.7 th/cmm L=1.6 H=8.4 751-8 LOINC H LYMPH abs count 3.3 th/cmm L=1.5 H=4.0 731-0 LOINC MONO abs count 1.5 th/cmm L=0.2 H=1.0 742-7 LOINC H EOS abs count 0.1 th/cmm L=0.0 H=0.5 711-2 LOINC BASO abs count 0.0 th/cmm L=0.0 H=0.2 704-7 LOINC IG abs count 0.1 th/cmm L=0.0 H=0.1 64374-5 LOINC NRBC abs count 0.0 mil/cmm L=0.0 H=0.0 18013-7 LOINC RBC 4.14 mil/cmm L=3.90 H=5.40 789-8 [...] [place]PT[place]) - Collect Date/Time: 11/06/2022 15:22 [facility] ID: [id number] [address] [place] [address], [facility] LOINC: 17830-3 Test Value Unit Reference Range Code Code System Flag NT-proBNP 664.0 pg/mL L=0.0 H=125 29333-8 LOINC H XR CHEST 2V PA AND LATERAL - Completed: 11/06/2022 15:57 LOINC: [facility] [place], [place] [address] PACS ACCOUNTING ADVISORY SERVICES MANAGER REPORT Patient Name: TROY SILVA MRN: Sex: : Age: [id number] F 1945 76 Account: Accession: Admit: StayType: [id number] 11/06/2022 CLINIC Ordered: Order ID: Submitted: Ordering Provider: 11/06/2022 15:21 [id number] MOIZ RICKETTS Completed: Technologist: Resulted: 11/06/2022 15:57 [...] em Smoking History Never smoker (Never Smoked) 666711177 SNOMED CT Sex Female Assessment You had [...] NOS L LEG active SNOMED-CT GERD active 060642380 SNOMED-CT HYPOTHYROIDISM active 87131949 SNOME D-CT CHF active 71647775 SNOMED-CT Allergies and Adverse Reactions Allergy Substance Reaction Severity Start Date Concern Status Co de Code System MORPHINE ?hallucinations (SNOMED-CT: null) Moderate Active 0706 RxNorm Plan of Treatment No Data Found Encounters Encounter Diagnosis Start Date Code Code Sys tem Hypertensive heart disease w ith congestive heart failure 11/06/2022 6357679 SNOMED-CT Personal Care Team Section Performer Name Performer Role Active Date Inactive Rakesh Metzger PCP - Primary care physician 1
--- OUTSIDE RECORDS SUMMARY | 2024-07-25 17:55 | XMS_ITS ---
Author Organization Unknown Address [address] [place] [address] [phone] Phone Care Team Providers Care Social Services Aide Name Role Phone JAMES SACHIN Attending Unavailable Results SED RATE* - Collect Date/Solomon e: 05/27/2024 14:23 [facility] ID: [id number] [address] [place], [place], [address] LOINC: 4537-7 Test Value Unit Reference Range Code Code System Flag SED. RATE 24 mm/hr L=0 H=30 4537-7 LOINC Social History Type Status Start Date End Date Code Code Syst em Smoking History Never smoker (Never Smoked) 504828991 SNOMED CT Sex Female Assessment You had [...] NOS L LEG active SNOMED-CT GERD active 529284560 SNOMED-CT HYPOTHYROIDISM active 04517295 SNOME D-CT CHF active 75687007 SNOMED-CT Allergies and Adverse Reactions Allergy Substance Reaction Severity Start Date Concern Status Co de Code System MORPHINE ?hallucinations (SNOMED-CT: null) Moderate Active 7022 RxNorm Plan of Treatment No Data Found Encounters Encounter Diagnosis Start Date Code Code Sys tem Headache 05/27/2024 64198015 SNOMED-CT Personal Care Team Section Performer Name Performer Role Active Date Inactive Da te JAMES SACHIN PCP - Primary care physician 1
--- OUTSIDE RECORDS SUMMARY | 2024-07-25 17:55 | XMS_ITS ---
Author Organization Unknown Address [address] [place] [address] [phone] Phone Care Team Providers Care Recep Name Role Phone JACQUELINE Desouza Attending Unavailable JAMES SACHIN Primary Unavailable Social History Type Status Start Date End Date Code Code Syst em Smoking History Never smoker (Never Smoked) 770533200 SNOMED CT Sex Female Assessment You had [...] NOS L LEG active SNOMED-CT GERD active 739973191 SNOMED-CT HYPOTHYROIDISM active 33329075 SNOME D-CT CHF active 23459874 SNOMED-CT Allergies and Adverse Reactions Allergy Substance Reaction Severity Start Date Concern Status Co de Code System MORPHINE ?hallucinations (SNOMED-CT: null) Moderate Active 1522 RxNorm Plan of Treatment No Data Found Encounters Encounter Diagnosis Start Date Code Code Sys tem Diastolic heart failure 06/02/2024 489008263 SNOM ED-CT Personal Care Team Section Performer Name Performer Role Active Date Inactive Da te JAMES SACHIN PCP - Primary care physician 1
--- OUTSIDE RECORDS SUMMARY | 2024-07-25 17:55 | XMS_ITS ---
Author Organization Unknown Address [address] [place] [address] [phone] Phone Care Team Providers Care Orthodontic Lab Technician Name Role Phone JACQUELINE Desouza Attending Unavailable CHIDI Cohen Primary Unavailable Results BNP (PRO-B NATRIURETIC [place]PTI [place]) - Collect Date/Time: 05/23/2024 09:08 [facility] ID: [id number] [address] [place] [address], [address] LOINC: 48352-3 Test Value Unit Reference Range Code Code System Flag NT-proBNP 2109.0 pg/mL L=0.0 H=450 12711-2 LOINC H CBC W/ DIFFERENTIAL* - Colle ct Date/Time: 05/23/2024 09:08 [facility] ID: [id number] [address] [place] [address], [address] LOINC: 87508-6 Test Value Unit Reference Range Code Code System Flag WBC 8.04 th/cmm L=5.00 H=10.00 6690-2 LOINC NEUT % 52.6 % L=40.0 H=80.0 LYMPH % 25.6 % L=10.0 H=50.0 MONO % 12.2 % L=2.0 H=12.0 27919-8 LOINC H EOS % 8.1 % L=0.0 H=8.0 H BASO % 1.1 % L=0.0 H=3.0 IG % 0.4 % L=0.0 H=1.1 2514-8 LOINC NRBC % 0.0 % L=0.0 H=0.0 88378-9 LOINC NEUT abs count 4.2 th/cmm L=1.6 H=8.4 751-8 LOINC LYMPH abs count 2.1 th/cmm L=1.5 H=4.0 731-0 LOINC MONO abs count 1.0 th/cmm L=0.2 H=1.0 742-7 LOINC EOS abs count 0.7 th/cmm L=0.0 H=0.5 711-2 LOINC H BASO abs count 0.1 th/cmm L=0.0 H=0.2 704-7 LOINC IG abs count 0.0 th/cmm L=0.0 H=0.1 70400-2 LOINC NRBC abs count 0.0 mil/cmm L=0.0 H=0.0 09772-3 LOINC RBC 3.48 mil/cmm L=3.90 H=5.40 789-8 LOINC L HEMOGLOBIN 11.5 gm/dL L=12.0 H=16.0 718-7 LOINC L HEMATOCRIT 37 % L=37 H=47 4544-3 LOINC MCV 106 fL L=82 H=92 787-2 LOINC H MCH 33.0 pg L=27.0 H=31.0 785-6 LOINC H MCHC 31.3 % L=32.0 H=36.0 786-4 LOINC L RDW-SD 50.9 fL L=39.0 H=49.0 788-0 LOINC H PLATELET COUNT 238 th/cmm L=150 H=450 777-3 LOINC COMPREHENSIVE METABOLIC PANE L (CMP) - Collect Date/Time: 05/23/2024 09:08 [facility] ID: [id number] [address] [place], [place], [address] LOINC: 73339-4 Test Value Unit Reference Range Code Code System Flag GLUCOSE 98 mg/dL L=70 H=116 2345-7 LOINC BUN 42 mg/dL L=6 H=25 3094-0 LOINC H CREATININE 1.42 mg/dL L=0.51 H=0.95 2160-0 LOINC H SODIUM SERUM 141 mmol/L L=136 H=145 2951-2 LOINC POTASSIUM SERUM 4.8 mmol/L L=3.4 H=5.2 2823-3 LOINC CHLORIDE SERUM 106 mmol/L L=96 H=110 2075-0 LOINC CARBON DIOXIDE (CO2) 29 mmol/L L=22 H=34 2028-9 LOINC ANION GAP 5.7 mmol/L 47000-1 LOINC CALCIUM SERUM 9.0 mg/dL L=8.2 H=10.2 70377-3 LOINC BILIRUBIN TOTAL 0.3 mg/dL L=0.0 H=1.3 1975-2 LOINC ALK. PHOS. 133 U/L L=46 H=116 6768-6 LOINC H SGOT (AST) 21 U/L L=15 H=37 1920-8 LOINC SGPT (ALT) 21 U/L L=12 H=78 1742-6 LOINC TOTAL PROTEIN 7.7 gm/dL L=6.0 H=8.0 2885-2 LOINC ALBUMIN 3.1 gm/dL L=3.4 H=5.0 1751-7 LOINC L AGE 78 years eGFR (non-Afr.Amer.) 36 mL/min 21114-3 LOINC eGFR (Afr-Cuban) 43 mL/min 06859-4 LOINC Social History Type Status Start Date End Date Code Code Syst em Smoking History Never smoker (Never Smoked) 646183106 SNOMED CT Sex Female Assessment You had [...] NOS L LEG active SNOMED-CT GERD active 516485632 SNOMED-CT HYPOTHYROIDISM active 04716311 SNOME D-CT CHF active 30965075 SNOMED-CT Allergies and Adverse Reactions Allergy Substance Reaction Severity Start Date Concern Status Co de Code System MORPHINE ?hallucinations (SNOMED-CT: null) Moderate Active 5737 RxNorm Plan of Treatment No Data Found Encounters Encounter Diagnosis Start Date Code Code Sys tem Aortic valve disorder 05/23/2024 1880594 SNOMED -CT Personal Care Team Section Performer Name Performer Role Active Date Inactive Da tali STEPHENSON PCP - Primary care physician
--- OUTSIDE RECORDS SUMMARY | 2024-07-25 17:55 | XMS_ITS | Data Portability ---
Author Organization [place] - [facility] [place] [address] Care Team Providers Care Transit Bus Operator Name Role Phone JACQUELINE ROCKWELL Building Construction Engineer [facility]astroenter[facility] KELLY STEVENSON Regional Hr Manager [facility] Orthopedist [facility] Family Mi dicchanning ROSETTE PALOMINO Physical Therapist [phone] ALYSSA MONTEZ Sleep Medicine VIJI STEWART Building Construction Engineer Assessment Encounter Date Assessment Date Assessment LastModified by Organization Details LastModified Time 04/12/2024 04/12/2024 The total time devoted to today's encounter, including both the pxup-ml-wqla time with the patient and/or family/caregiver and jhj-dfex-ho-face time I personally spent is 25 minutes in visit, 5 minutes prep, 5 minutes charting; total 35 minutes. [email or web address] Not available 04/12/2024 21:07:16 05/25/2024 05/25/2024 The total time devoted to today's encounter, including both the jfdx-ik-gsnf time with the patient and/or family/caregiver and kfp-loim-uo-face time I personally spent is 25 minutes in visit, 5 minutes prep, 5 minutes charting; total 35 minutes. [email or web address] Not available 05/25/2024 21:07:19 06/01/2024 06/01/2024 Patient here for pre-op eval for potential placement of Inspire device for treatment of obstructive sleep apnea. 78-year-old female with history of cardiovascular disease and heart failure. History of AVR and coronary bypass in 2018. High risk surgery: No CAD: Yes CHF: Yes CVD: Yes DM on insulin: No Serum creatinine >2 mg/dL: No Patient is Class III risk for this surgery, with a 6.6 % risk of major cardiopulmonary event based on the Revised Cardiac Risk Index. [email or web address] Not available 06/01/2024 21:28:03 07/25/2024 07/25/2024 The total time devoted to today's encounter, including both the sebm-gw-dtfh time with the patient and/or family/caregiver and wfl-mgam-xv-face time I personally spent is 25 minutes in visit, 5 minutes prep, 5 minutes charting; total 35 minutes. [email or web address] Not available 07/25/2024 12:56:01 Plan of Treatment Reminders Order Date Submit Date Provider Last Modified By Organization Details Last Modified Time Details Appointments Follow Up 2023 10:20A M SACHIN JAMES Not available Not available Not available Acupunctu re 10 2024 10:30A M [facility] Not available Not available Not available Massage 30 2024 02:00P M [facility] Not available Not available Not available Reiki 2024 03:30P M [facility] Not available Not available Not available Follow Up 2024 11:30A M SACHIN JAMES Not available Not available Not available Lab culture, wound - specimen is taken from right side of fore head next to eyebrow 2023 024 MACIEL [facility] (Registration ), [address] [place] [address] [place], [address], 05/14/2024 08:46:11 BMP, serum or plasma 2023 024 [email or web address] [facility] (Registration ), [address] [place] [address] [place], [address], 07/25/2024 15:20:42 Referral orthopedi c surgeon referral [address] [facility], [address] [facility], [place], [address], 05/27/2024 07:21:43 physical therapist referral - chronic right hip and shoulder pain 2023 024 [facility], [address] [place] [address], [address], 07/25/2024 13:25:18 physical therapist referral - right hip and shoulder pain 2023 024 [facility], [address] [place] [address], [address], 07/25/2024 13:25:19 Procedures None recorded. Surgeries None recorded. Imaging CT, head, w/o contrast 2023 024 [facility] (Radiology), [address] [place] [address], [place], [address], 07/25/2024 14:25:18 Medication Orders gabapenti n 100 mg capsule 2023 024 [facility], [address], [place], [address], 04/12/2024 15:08:22 cephalexi n 500 mg capsule 2023 024 [facility], [address] [place], [address], 05/25/2024 13:49:16 omeprazol e 40 mg capsule,d elayed release 2023 024 [facility], [address] [place], [address], 06/01/2024 16:16:22 simvastat in 20 mg tablet 2023 024 [facility], [address] [place], [address], 07/25/2024 10:17:49 potassium chloride ER 10 mEq capsule,e xtended release 2023 024 MACIEL [facility], [address] [place], [address], 07/25/2024 12:56:06 Patient TargetsNo targets recorded. Patient Instructions Encounter Date Encounter Id Patient Instructions Last Modified By Organization Details Last Modified Time 04/12/2024 [id number] Dear Liya Gonzalez y, Thank you for visiting us on April 12, 2024. We appreciate your commitment to managing your health and are here to support you in your journey towards improvement. Here are the el instructions and recommendations from today's consultation: - Continue to follow up with Dr. Salinas at [facility] in [place] regarding your recent basal cell carcinoma removal. Call to make an appointment as advised in your discharge instructions. -Call [facility] for f/u Dr Salinas - Attend [...] Kristie [email or web address] Not available 04/12/2024 15:14:35 05/13/2024 [id number] 1. Wound culture obtained today will take [...] seek reevaluation. [email or web address] Not available 05/13/2024 13:45:12 07/25/2024 [id number] diet [email or web address] Not available 06/28 12:56:03 exercise [email or web address] Not available 07/25 12:56:03 Dear Liya, Thank you for visiting us today and for your dedication to improving your health. Here is a summary of the el instructions and recommendations from today's consultation: - Continue with Gabapentin 100 mg three times a day for neuropathy pain. - Renewed prescription for Simvastatin for cholesterol management. - Scheduled a Head CT scan without contrast at [facility] to address ongoing facial pain. - Referral to [facility] in [place] for both your right hip and right shoulder. If no improvement after 6 weeks, we will consider an orthopedic consultation and possible X-rays. 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 Discuss options with your daughter and seek assistance at a reputable shoe store. - Continue dietary modifications discussed with Idalia last December to aid in weight loss for eligibility for the Inspire device. - Flu shot received; no additional pneumonia vaccinations needed at this time. - Follow-up on potential use of the Inspire device for sleep apnea after achieving the target weight of 165 lbs. - Acupuncture, massage, and reiki sessions scheduled for the upcoming months. Please ensure to follow through with the planned appointments and treatments. We are here to support you every step of the way. Best regards, Kristie [email or web address] Not available 07/25/2024 10:35:48 Reason for Referral Orthopedic Surgeon Referral for Pain of right shoulder joint Referring Physician: [facility], Encounter Date: 05/25/2024 Physical Therapist Referral for Pain in right hip joint chronic right hip and shoulder pain Referring Physician: [facility], Encounter Date: 07/25/2024 Physical Therapist Referral for Pain of right shoulder joint right hip and shoulder pain Referring Physician: [facility], Encounter Date: 07/25/2024 Results Created Date Observation Date Name Description Value Unit Range Abnormal Flag Note LastModifiedBy Organization Detail LastModifiedTime 05/13/2005/13/2024 GRAM STAIN gram stain Gram Stain GRAM STAIN (REPO RT) Rare White Blood Cells No Bacte ciara Seen Not Available [facility] (Registration ) [address] [place] [address] [place], [address], 05/13/2024 23:28:16 05/13/20 24 05/15/2024 WOUND AEROB IC CULTU RE wound aerobic culture Wound Aerob ic Cultu re APPEA MARILYN Kristina l Arnie GROWT H(REP ORT) RARE GROWT H Day 1 Resul t ISOLA BESSY BELOW O:NF (ORGA NISM ID: 1.1) - KRISTINA L ARNIE Wound Aerob ic Cultu re (ORGA NISM ID: 1.1) - GROWT H(REP ORT) (ORGA NISM ID: 1.1) - RARE GROWT H Not Available [facility] (Registration ) [address] [place] [address] [place], [address], 05/15/2024 07:59:02 05/13/20 24 05/13/2024 GRAM STAIN gram stain Gram Stain GRAM STAIN (REPO RT) Rare White Blood Cells No Bacte ciara Seen Not Available [facility] (Registration ) [address] [place] [address] [place], [address], 05/15/2024 07:59:03 05/13/20 24 05/16/2024 WOUND AEROB IC CULTU RE wound aerobic culture Wound Aerob ic Cultu re APPEA MARILYN Kristina l Arnie APPEA MARILYN Kristina l Arnie GROWT H(REP ORT) RARE GROWT H GROWT H(REP ORT) RARE GROWT H Day 1 Resul t ISOLA BESSY BELOW Day 2 Resul t ISOLA BESSY BELOW O:NF (ORGA NISM ID: 1.1) - KRISTINA L ARNIE Wound Aerob ic Cultu re (ORGA NISM ID: 1.1) - GROWT H(REP ORT) (ORGA NISM ID: 1.1) - RARE GROWT H Not Available [facility] (Registration ) [address] [place] [address] [place], [address], 05/16/2024 11:01:32 10/18/20 24 05/13/2024 GRAM STAIN gram stain Gram Stain GRAM STAIN (REPO RT) Rare White Blood Cells No Bacte ciara Seen Not Available [facility] (Registration ) [address] [place] [address] [place], [address], 05/16/2024 11:01:33 05/13/20 24 05/17/2024 WOUND AEROB IC CULTU RE wound aerobic culture Wound Aerob ic Cultu re APPEA MARILYN Kristina l Arnie APPEA MARILYN Kristina l Arnie APPEA MARILYN Kristina l Arnie GROWT H(REP ORT) RARE GROWT H GROWT H(REP ORT) RARE GROWT H GROWT H(REP ORT) RARE GROWT H Day 1 Resul t ISOLA BESSY BELOW Day 2 Resul t ISOLA BESSY BELOW Day 3 Resul t ISOLA BESSY BELOW O:NF (ORGA NISM ID: 1.1) - KRISTINA L ARNIE Wound Aerob ic Cultu re (ORGA NISM ID: 1.1) - GROWT H(REP ORT) (ORGA NISM ID: 1.1) - RARE GROWT H Not Available [address] [place], [address] 05/17/2024 10:59:59 05/13/2005/13/2024 GRAM STAIN gram stain Gram Stain GRAM STAIN (REPO RT) Rare White Blood Cells No Bacte ciara Seen Not Available [address] [place], [address] 05/17/2024 11:00:01 05/27/20 24 05/27/2024 SED RATE* sed. rate 24 mm/HR 0 - 30 Not Available [facility] (Lab) [address] [place] [address], [address], 05/27/2024 14:47:12 06/03/20 24 06/02/2024 trans -thor acic echoc ardio gram (TTE) (PROC ) No observ ation record ed. [email or web address] Not Available 06/03 11:05:57 Result Notes None recorded. Problems Name Problem SNOMED Code Status Onset Date Resolution Date Notes Provider Name and Address Organization Details Recorded Time Pain in face 24151947 Active 2023 JACQUELIN QUISPE [address], [place], [address], [facility] 4 21:06:12 Gastroes ophageal reflux disease without esophagi tis 384228858 Active 2023 JACQUELIN QUISPE [address], [place], [address], [facility] 4 16:15:26 Pain in right hip joint 7665114175 02656 Active 2023 JACQUELIN QUISPE [address], [place], [address], [facility] 4 10:25:34 Hypokale cheryl 07413474 Active 2023 JACQUELIN QUISPE [address], [place], [address], [facility] 4 10:35:09 Hyperlip idemia 56697057 Active 2022 PERI DELEON PUBLIC POLICY MEDIATOR null, [facility] 3 10:52:44 Hypothyr oidism 98315608 Active 2022 PERI DELEON, PUBLIC POLICY MEDIATOR null, [facility] 3 10:52:49 Essentia l hyperten maru 26879010 Active 2022 PERI LACJOSH, PUBLIC POLICY MEDIATOR null, [facility] 3 10:48:19 Chronic diastoli c heart failure 329658360 Active 2022 PERI DELEON, PUBLIC POLICY MEDIATOR null, [facility] 3 10:52:40 Arterios clerotic vascular disease 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 Active 2022 PERI DELEON, PUBLIC POLICY MEDIATOR null, [facility] 3 10:52:30 Right flank pain 337664618 Active 2022 Alicja Seibold null, [facility] 4 12:10:01 Pain in right foot 7376847046 93525 Active 2022 Alicja Senavneet [facility], [facility] 4 12:09:49 Ob[facility] 203561238 [facility] 4 12:09:38 Depressi ve disorder 74104636 Active 2023 [facility], [facility] 4 12:09:25 Nontraum atic rotator cuff tear 933197631 Completed 202308/20/2023 EM BAUER MA null, [facility] 4 13:30:11 Nontraum atic rotator cuff tear 317197950 Active 2023 EM BAUER MA null, [facility] 4 13:30:11 Polyneur opathy 96610205 Active 2023 peripher al Alicja [facility], [facility] 4 12:09:51 Thoracic outlet syndrome 781141397 [facility] 4 12:09:55 History of malignan t neoplasm of skin 650036351 Active 2023 Alicja José Miguel [facility] 4 12:09:33 Obstruct dedra sleep apnea syndrome 20035081 [facility], [facility] 12:09:41 Dyspnea 181623524 [facility] 12:09:30 Bilatera l cramp of muscle of lower limbs 1364163126 3396822 Active 2023 Alicja [facility], [facility] 4 12:09:23 Osteoart hritis 513685844 Active 2023 [facility], [facility] 4 12:09:43 Endometr ial carcinom a 366757728 Completed 202308/20/2023 EM BAUER MA null, [facility] 4 13:39:54 Diastoli c heart failure 234493948 Active 2023 [facility], [facility] 4 12:09:27 Basal cell carcinom a of skin 160429293 Active 2023 [facility], [facility] 12:09:20 Neoplasm of uncertai n behavior of skin 73910096 Active [address], [facility] [address], [facility] 4 10:23:42 Fatigue 36798003 Active [address], [facility] [address], [facility] 4 11:38:20 Chronic cough 64397657 Active [address], [facility] [address], [facility] 4 11:38:20 Aortic valve disorder 2360448 Active 2023 TOÑA HUBER MA null, [facility] 4 14:31:00 Subclini antonia hyperthy roidism 831496524 Active 2023 Deneen Fuentes RN null, [facility] 4 10:27:29 Foot pain 48034403 Active 2023 SACHIN RAMIREZ, ASSEMBLER [employer] [address], [place], [address], [facility] 13:30:03 Low back pain 667423414 Active [address], [facility] [address], [facility] 11:54:46 Ankle pain 715949837 Active [address], [facility] [address], [facility] 11:55:12 Mammogra phy abnormal 455147076 Active [address], [place] [address], [facility] 11:57:09 Infectio n of skin 355191438 Active [address], [facility] [address], [facility] 14:11:49 Pain of right shoulder joint 1577348355 0924302 Active [address], [facility] [address], [facility] 14:14:57 Notes:Some problems listed i n Document: #[id number] could not be added to this patient's chart. Please review this document and add these problems to the patient's chart manually as needed. Problem Notes None recorded. Procedures Surgical History Date Name Laterality Status Provider Name and Address Organization Details Recorded Time 04/06/20 24 excision of melanoma completed EM BAUER MA [facility] 04/12/2024 14:49:16 06/27/20 22 endoscopic calcaneoplasty for Ora deformity completed EM BAUER MA [facility] 08/20/2023 13:51:40 12/29/19 20 mohs surgery completed EM BAUER MA [facility] 08/20/2023 14:03:48 02/23/20 18 Coronary artery bypass/reop completed EM BAUER MA [facility] 08/20/2023 13:52:47 10/02/19 17 cataract surgery completed EM BAUER MA [facility] 08/20/2023 14:02:07 09/17/19 17 Cataract Surgery completed EM BAUER MA [facility] 08/20/2023 14:02:47 11/16/19 13 total knee replacement completed EM BAUER MA [facility] 08/20/2023 13:45:27 03/15/20 12 total knee replacement completed EM BAUER MA [facility] 08/20/2023 13:44:56 open reduction of fracture of tibia and fibula completed EM BAUER MA [facility] 08/20/2023 13:47:29 procedure on elbow completed EM BAUER MA [facility] 08/20/2023 13:47:55 Appendectomy completed EM BAUER MA [facility] 08/20/2023 13:51:52 hysterectomy completed EM BAUER MA [facility] 08/20/2023 13:52:06 Imaging Results Imaging Date Name Status LastModified by Organization Details LastModified Time 06/02/2024 trans-thoracic echocardiogram (TTE) (PROC) completed [email or web address] Information not available 06/03/2024 11:05:57 Procedure Notes None recorded. Medical Equipment None Reported. Allergies Allergen ID Allergen Name Allergen Category Reaction Reaction Severity Criticality Documentation Date Start Date Code Code System Note Provider Name and Address Organization Details Recorded Time 36509 morphine medicatio n hallucina tions Not available Not available 08/20/2023 7052 RxNorm JODI VIRGEN, [facility] 12:21:43 Medications Name Sig Start [...] Available sertralin e 100 mg tablet TAKE ONE TABLET BY MOUTH EVERY DAY active Not Available Not Available No t Available omeprazol e 40 mg capsule,d elayed release TAKE ONE CAPSULE BY MOUTH EVERY DAY 30 MIN FOR BREAKFAS T active Not Available Not Available No t Available amoxicill in 500 mg tablet Take [...] Not Available cephalexi n 500 mg capsule TAKE ONE CAPSULE BY MOUTH EVERY 8 HOURS FOR 5 DAYS 05/25 completed Not Available Not Available Not Available simvastat in 20 mg tablet Take 1 tablet every day by oral route. 2023 active Not Available Not Available Not Avai lable zolpidem 5 mg tablet TAKE 1 TABLET [...] e 50 mcg/actua tion nasal spray,stephan [employer] [place] 1 spray every day by intranas al [...] Not Available Not Available Vitamin C daily 06/01 completed Not Available Not Available Not Available Vitamin D3 daily active Not Available Not Available Not Available Vitals Date Recorded Body height Body mass index (BMI) Body weight Body temperature Oxygen saturation Oxygen saturation in Arterial blood by Pulse oximetry Heart rate Systolic blood pressure Diastolic blood pressure Provider Name and Address Organization Details Last Updated DateTime 4 144.14 cm 34.7 kg/m2 02655.1 9 g 98 [degF] 100 % 100 % 68 /min 118 mm[Hg] 66 mm[Hg] NATALIE BAUER MA [facility] 4 14:51:34 Date Recorded Body height Body mass index (BMI) Body weight Body temperature Oxygen saturation Oxygen saturation in Arterial blood by Pulse oximetry Heart rate Respiratory rate Systolic blood pressure Diastolic blood pressure Provider Name and Address Organization Details Last Updated DateTime 4 144.14 cm 34.9 kg/m2 51594.7 8 g 97.7 [degF] 96 % 96 % 79 /min 16 /min 144 mm[Hg] 65 mm[Hg] Candelaria Hood [facility] 4 13:27:22 Date Recorded Body height Body mass index (BMI) Body weight Body temperature Oxygen saturation Oxygen saturation in Arterial blood by Pulse oximetry Heart rate Systolic blood pressure Diastolic blood pressure Provider Name and Address Organization Details Last Updated DateTime 4 144.14 cm 36.7 kg/m2 86442.5 2 g 97.8 [degF] 99 % 99 % 71 /min 138 mm[Hg] 76 mm[Hg] PERI DELEON LPN [facility] 4 13:48:48 Date Recorded Body height Oxygen saturation Oxygen saturation in Arterial blood by Pulse oximetry Heart rate Body temperature Body mass index (BMI) Body weight Systolic blood pressure Diastolic blood pressure Provider Name and Address Organization Details Last Updated DateTime 4 144.14 cm 96 % 96 % 76 /min 97.7 [degF] 36.9 kg/m2 10845.8 3 g 126 mm[Hg] 76 mm[Hg] [facility] 4 15:57:18 Date Recorded Body height Body mass index (BMI) Body weight Body temperature Oxygen saturation Oxygen saturation in Arterial blood by Pulse oximetry Heart rate Systolic blood pressure Diastolic blood pressure Provider Name and Address Organization Details Last Updated DateTime 4 144.14 cm 37.6 kg/m2 65379.8 9 g 97.3 [degF] 97 % 97 % 73 /min 124 mm[Hg] 72 mm[Hg] [facility] 4 09:46:04 Social History Question Answer Notes LastModified by Organizat ion Details LastModified Time Tobacco Smoking Status Former Smoker 18 when she quit smoking JODI CUENCA, [facility], [facility] 08/18/2023 10:42:09 Do You Have An Advance Directive? No Paperwork Given Information not available 12/09/2023 When Did You Quit Smoking? 16+yearssince [email or web address] Information not available 08/18/2023 Date Of Most Recent HSA 12/09/2023 Information not available 12/09/2023 Would You Say That, In General, Your Health Is Fair [email or web address] Information not available 08/18/2023 How Often Does Anyone, Including Family, Physically Hurt You? Never Information not available 08/18/2023 How Often Does Anyone, Including Family, Insult Or Talk Down To You? Never [email or web address] Information not available 08/18/2023 How Often Does Anyone, Including Family, Threaten You With Harm? Never [email or web address] Information not available 08/18/2023 How Often Does Anyone, Including Family, Scream Or Curse At You? Never [email or web address] Information not available 08/18/2023 Within The Past 12 Months, You Worried That Your Food Would Run Out Before You Got Money To Buy More. Sometimes True Information not available 12/09/2023 Within The Past 12 Months, The Food You Bought Just Didn't Last And You Didn't Have Money To Get More. Never True [email or web address] Information not available 08/18/2023 How Hard Is It For You To Pay For The Very Basics Like Food, Housing, Medical Care, And Heating? Would You Say It Is: Not Hard At All Information not available 12/09/2023 In The Past 12 Months, Has Lack Of Reliable Transportation Kept You From Medical Appointments, Meetings, Work Or From Getting Things Needed For Daily Living? No [email or web address] Information not available 08/18/2023 What Is Your Housing Situation Today? I Have Housing. [email or web address] Information not available 08/18/2023 How Often In The Past Year Have You Used Marijuana (including Smoking, Vaping, Dabbing, Or Edibles)? Never [email or web address] Information not available 08/18/2023 How Often In The Past Year Have You Used Prescription Medications That Were Not Prescribed To You? Never [email or web address] Information not available 08/18/2023 How Often In The Past Year Have You Taken Your Own Prescription Medication More Than The Way It Was Prescribed Or For Different Reasons Than Its Intended Purpose? Never [email or web address] Information not available 08/18/2023 How Often In The Past Year Have You Used Other Drugs (for Example, Heroin, Cocaine, Meth, Salvia, Inhalants)? Never Information not available 08/18/2023 What Matters Most To You? to Be Safe And Healthy, See And Walk [email or web address] Information not available 12/09/2023 During The Past Four Weeks, Was Someone Available To Help You If You Needed And Wanted Help? (For Example, If You [place] Very Nervous, Lonely, Or Blue; Got Sick [...] 12/09/2023 Date Of Most Recent SBINS 05/13/2024 [email or web address] Information not available 05/13/2024 Do You Have A Medical Power Of Center Human Resources Manager? No Information not available 12/09/2023 What Was The Date Of Your Most Recent Tobacco Screening? 07/25/2024 [email or web address] Information not available 07/25/2024 At What Age Did You Start Smoking Tobacco? 16 [email or web address] Information not available 08/18/2023 Has Tobacco Cessation [...] Organization Details LastModified Time Mother Diastolic dysfunction [email or web address] Not available 07/28 13:53:44 Mother Congestive heart failure 69 [email or web address] Not available 2023 13:55:35 Brother Myocardial infarction [email or web address] Not available 08/20 13:54:51 Brother Family history of malignant neoplasm [email or web address] Not available 2023 14:47:47 Sister Family history of malignant neoplasm [email or web address] Not available 2023 14:47:47 Medical History No medical history recorded. Gynecological HistoryNo gynecological history recorded. Obstetrics History GPAL:G 0 P 0 0 0 0 Immunizations Vaccine Type Date Status Note Provider Nam e and Address Organization Details Recorded Time Td (adult), 2 Lf tetanus toxoid, preservative free, adsorbed 4 completed SACHIN RAMIREZ, [employer] [address], [place], [address], [facility] 08/18/2023 22:14:59 Influenza, high-dose, trivalent, PF 4 completed SACHIN RAMIREZ, [employer] [address], [place], [address], [facility] 04/12/2024 21:01:41 SARS-COV-2 (COVID-19) vaccine, UNSPECIFIED 3 completed JODI CUENCA, [facility] 08/20/2023 12:15:28 SARS-COV-2 (COVID-19) vaccine, UNSPECIFIED 1 completed JODI CUENCA, [facility] 08/20/2023 12:15:34 SARS-COV-2 (COVID-19) vaccine, UNSPECIFIED 1 completed JODI CUENCA, [facility] 08/20/2023 12:15:49 SARS-COV-2 (COVID-19) vaccine, UNSPECIFIED 1 completed JODI CUENCA, [facility] 08/20/2023 12:15:55 SARS-COV-2 (COVID-19) vaccine, UNSPECIFIED 2 completed JODI CUENCA, [facility] 08/20/2023 12:16:04 Pneumococcal conjugate PCV 13 5 completed JODI CUENCA, [facility], [facility]. 08/20/2023 12:16:40 influenza, unspecified formulation 0 completed JODI CUENCA, [facility] 08/20/2023 12:17:06 influenza, unspecified formulation 1 completed JODI CUENCA, [facility] 08/20/2023 12:17:14 influenza, unspecified formulation 2 completed JODI CUENCA, [facility] 08/20/2023 12:17:20 influenza, unspecified formulation 3 completed JODI CUENCA, [facility] 08/20/2023 12:17:30 pneumococcal polysaccharide PPV23 2 completed JODI CUENCA, [facility] 08/20/2023 12:18:00 pneumococcal polysaccharide PPV23 9 completed JODI CUENCA, [facility] 08/20/2023 12:18:09 Tdap 2 completed JODI CUENCA, [facility] 08/20/2023 12:18:41 zoster, unspecified formulation 9 completed JODI CUENCA, [facility] 08/20/2023 12:18:59 zoster, unspecified formulation 9 completed JODI CUENCA, [facility] 08/20/2023 12:19:04 zoster, unspecified formulation 2 completed JODI CUENCA, [facility] 08/20/2023 12:19:11 Past Encounters Encounter ID Performer Location Encounter Start Date Encounter Closed Date Diagnosis/Indication Diagnosis SNOMED-CT Code Diagnosis ICD10 Code [id number] JACQUELIN QUISPE [address] [address] 07/10/2023 08:03:29 07/10/2023 09:07:38 Right flank pain 528736510 R10.9 Essential hypertension 02855595 I10 [id number] [address] [address] 07/15/2023 10:11:36 07/15/2023 10:53:13 Essential hypertension 66707250 I10 Pain in right foot 74717 08958 41397 M79.671 Right flank pain 6393848 09 R10.[id number] [address] 08/18/2023 10:29:16 08/18/2023 12:16:13 Hyperlipidemia 93000006 E78.5 Obesity 689277914 E66.9 Essential hypertension 82517504 I10 Screening for malignant neoplasm of colon 775057809 Z12.11 Active or passive immunization 911319226 Z23 [id number] Fabi Marin PA-C [address] [address] 11/03/2023 10:33:42 11/03/2023 11:24:23 Upper respiratory infection 50375505 J06.9 Obesity 088244302 E66.9 [id number] PADMAJA RILEY [address] [address] 11/16/2023 09:16:49 11/16/2023 09:52:12 Fatigue 79502855 R53.83 Chronic cough 27813105 R 05.3 Neoplasm o f uncertain behavior of skin 37730937 D48.5 Obesity 090698619 E66.9 Obstructiv e sleep apnea syndrome 85524202 G47.[id number] [address] 12/09/2023 12:38:05 12/09/2023 13:45:09 Adult health examination 545228585 Z78.0 Foot pain 56894748 M79.6 71 M79.672 Screening for malignant neoplasm of colon 224503445 Z12.11 Screening mammography 24 686461 Z12.31 Screening for osteoporosis 648587601 Z78.[id number] [address] 01/05/2024 10:54:02 01/05/2024 11:42:50 Obesity 110070275 E66.9 Essential hypertension 46627036 I10 Low back pain 326942157 M54.50 Ankle pain 769949444 M25 .579 Mammography abnormal 168 452518 R92.[id number] [address] 04/12/2024 14:18:14 04/12/2024 15:29:45 Basal cell carcinoma of skin 286414238 C44.91 Bilateral cramp of muscle of lower limbs 5431211007 7443803 R25.2 Obstructiv e sleep apnea syndrome 37021452 G47.33 Polyneuropathy 45815608 G62.9 Active or passive immunization 049011759 Z23 [id number] ROGER ARGUETA PA-C [address] [address] 05/13/2024 10:54:11 05/13/2024 13:50:24 Infection of skin 939759987 L08.[id number] [address] 05/25/2024 13:28:48 05/25/2024 14:28:28 Pain of right shoulder joint 5458807577 3669734 M25.511 Obstructiv e sleep apnea syndrome 95914584 G47.33 Pain in face 84117368 R5 1.[id number] [address] 06/01/2024 15:42:09 06/02/2024 04:34:12 Gastroesophageal reflux disease without esophagitis 827585502 K21.9 [id number] SACHIN JAMES, [employer] [address] [address] 07/25/2024 09:29:15 07/25/2024 10:47:05 Hyperlipidemia 94466269 E78.5 Basal cell carcinoma of skin 903139009 C44.91 Obstructiv e sleep apnea syndrome 33196026 G47.33 Polyneuropathy 75021824 G62.9 Pain of ri ght shoulder joint 7758856718 4008650 M25.511 Pain in face 17348721 R5 1.9 Pain in ri ght hip joint 4163241484 61636 M25.551 Hypokalemia 01215255 E87 .6 Essential hypertension 09932346 I10 Obesity 476128852 E66.9 Health Concerns Section Related Observation LastModified by Organization Detai ls LastModified Time None Recorded Concern Status LastModified by Organization Details LastModified Time None Recorded Advance Directives Directive N: paperwork given Payers Encounter Date Sequence Insurance Name Policy Number Policy Kearns Covered Member ID Kearns Member ID Guarantor Name 04/12/2024 1 [place] - [place]) [id number] Liya A Chago [id number] Liya A Chago 04/12/2024 2 [place] Liya A Chago [id number] Liya A Chago 05/13/2024 1 [place] [id number] Liya A Chago [id number] Liya A Chago 05/13/2024 2 [place] Liya A Chago [id number] Liya A Chago 05/25/2024 1 [place] [id number] Liya A Chago [id number] Liya A Chago 05/25/2024 2 [place] Liya A Chago [id number] Liya A Chago 06/01/2024 1 [place]) [id number] Liya A Chaog [id number] Liya A Chago 06/01/2024 2 [place] Liya Anders [id number] Liya Jagdeep Chago 07/25/2024 1 [place]) [id number] Liya Singh Chago [id number] Liya Singh Chago 07/25/2024 2 [facility] (MEDICAID) Liya Singh Chago [id number] Liya Anders Notes Date Note Type Note Provider Name and Address Organization Details Recorded Time 04/12/2024 text/html Liya Anders presented for follow-up after the removal [...] is affordable at this time. JACQUELIN QUISPE [address], [place], [address], [facility], [facility]. 04/12/2024 21:07:59 05/13/2024 text/html Liya is a 78-year-old female who presents with concern for infection on the right side of her forehead. She had a basal cell carcinoma removed by Dr. Salinas at [facility] dermatology on 04/07. Had dissolvable sutures. Saw primary care on 04/12 look to be healing well. In the last week she has noticed this area has now become red, has not been painful. No history of MRSA. Has not had fevers. Has been applying vitamin E. ROGER ARGUETA PA-C [address], [place], [address], [facility], [facility]. 05/13/2024 14:11:58 05/25/2024 text/html 78-year-old femjagdeep miller accompanied by her daughter presents for having intermittent pain on the left side of her face, extending through her eye for the past 4-5 months. The pain comes and goes, sometimes lasting a day or two. She states that sitting up and taking Advil helps alleviate the pain. She also experiences slightly blurry vision when the pain is present. The patient has not seen a neurologist for this issue and denies any pain while chewing or experiencing shock-like sensations in her face. Liya is scheduled for a pre-operative procedure on June 14 to study her breathing and airway for potential Inspire implant qualification. If she qualifies, the implant surgery will be scheduled for June. The patient also complains of pain in her right shoulder, which she has experienced before and received cortisone injections for. She has a history of torn rotator cuffs in both shoulders and has not had imaging done on her shoulders in a long time. She reports that her previous cortisone injections have been effective for an extended period. JAC[address]EL[address] QU[address], [place], [address], [facility] 05/26/2024 12:04:41 06/01/2024 text/html 78-year-old fema angela presents to clinic today for preoperative clearance for upcoming evaluation for Inspire device to treat sleep apnea. Patient is a poor historian. Daughter is accompanying her today to assist with any questions. Surgery: 06/07/2024 initial evaluation to be completed at [facility]. -Bio prosthetic AVR and CABG 2018-Congestive heart failure with mildly elevated BNP since 2018, treated with daily diuretic-Hypertension -Morbid obesityNO h/o stroke/TIANO h/o DM on insulinCr <2.0 Fx Status: -EtOH- several drinks every other week-Illicits/tobacco : none-anticoag/ASA/jayson roids/nsaids: low dose ASA H/O surgical complications: No -no h/o bleeding d/o-no fhx of bleeding d/o-no allergies to iodine/latex J[address], [place], [address], [facility]. 06/01/2024 21:28:50 07/25/2024 text/html The patient, Marleny staples, presents with ongoing pain in her right hip and right shoulder. She reports that her hip pain has been worsening. She has also been experiencing pain on the left side of her face. Liya has a history of sleep apnea and is working towards weight loss to qualify for the Inspire device. She has been advised to focus on diet modifications and has previously met with a care program about her diet. Liya has seen an animal caregiver for her hearing and reports that it has improved after having her ear cleaned. She has also seen a clinical quality rn for neuromas in both feet and has been advised to wear shoes with a wide toe box. She experiences swelling in her lower legs and pain in her feet, which she attributes to neuropathy. She is currently taking gabapentin for the neuropathy pain and believes it is helping. She has a history of peripheral artery disease and atherosclerosis of the arteries in both lower extremities.Her blood pressure during the visit was 124/72, and she is currently taking simvastatin for her cholesterol. Liya has received her flu shot but not her COVID shot.She is up to date on her pneumonia vaccinations. SACHIN RAMIREZ, [employer] [address], [place], [address], [facility]. 07/25/2024 12:56:09 OBGyn Episode No OBEpisode recorded.
--- OUTSIDE RECORDS SUMMARY | 2024-07-25 17:56 | XMS_ITS | Clinical Summary ---
Author Organization [facility] Address [address] [place] [address] Care Team Providers Care Brick Stacker Name Role Phone [facility] Primary Care Provider [phone] Allergies Active Allergy Reactions Criticality Noted Date Comments Propofol 04/14/2018 PT WITH GREAT DIFFICULTY WAKING UP POST ANESTHESIA Morphine Other (See Comments) 02/22/2018 hallucinations Other - See Comments 06/07/2024 Environmental Medications calcium/magnesi um (CALCIUM AND MAGNESIUM ORAL) Take by mouth daily. Active Zinc Acetate, Oral, 50 mg (zinc) capsule Take by mouth daily. Active krill oil 500 mg capsule Take by mouth daily. Fish oil Active chrm/vineg/bit- orang peel/gr t (APPLE CIDER VINEGAR PLUS ORAL) Take 2 Tablets by mouth daily. Active aspirin chewable 81 mg tablet Take 1 Tablet by mouth every morning. Active ascorbic acid, vitamin C, (VITAMIN C) 500 mg tablet Take 1 Tablet by mouth if needed. Active calcium carbonate (TUMS) 200 mg calcium (500 mg) tablet,chewable Take 1 Tablet by mouth 4 times daily as needed. Active cyanocobalamin (VITAMIN B-12) 100 mcg tablet Take 25 Tablets by mouth daily. Active simvastatin (ZOCOR) 20 mg tablet Take 1 Tablet by mouth every evening. Active furosemide (LASIX) 20 mg tablet Take 1 Tablet by mouth 2 times daily. Active sertraline (ZOLOFT) 100 mg tablet Take 1 Tablet by mouth daily. Active acetaminophen (TYLENOL) 500 mg tablet Take 2 Tabs by mouth every 6 hours. 8 Active Additional Information Patient taking differently:1,000 mg oralEVERY 6 HOURS PRN, Reported on 06/20/2024 metoprolol (LOPRESSOR) 50 mg tablet Take 1 Tablet by mouth. Pt reports taking 75 mg twice daily, AM and PM Active docusate sodium (COLACE) 100 mg capsule Take 2 Capsules by mouth 2 times daily as needed for Constipation. Active traMADol (ULTRAM) 50 mg tablet Take 1 Tablet by mouth every 6 hours as needed for Pain. Active triamcinolone (KENALOG) 0.1 % cream Apply topically to affected area 2 times daily. Do not apply to face, armpit or groin. 45 g 3 0 Active Additional Information Patient not taking.Reported on 06/20/2024 chloroquine (ARALEN) 250 mg tablet Take 1 Tablet by mouth. 3 times a week 4 Active dilTIAZem (CARDIZEM) 30 mg tablet Take 1 Tablet by mouth every evening. 4 Active lisinopriL (PRINIVIL) 20 mg tablet Take 1 Tablet by mouth every morning. 4 Active omeprazole (PRILOSEC) 40 mg capsule Take 1 Capsule by mouth every morning. 4 Active levothyroxine (SYNTHROID) 100 mcg tablet Take 1 Tablet by mouth every morning. 4 Active potassium chloride (MICRO-K) 10 mEq capsule Take 1 Capsule by mouth 2 times daily. 4 Active guaiFENesin (MUCINEX) 600 mg SR tablet Take 1 Tablet by mouth if needed. Active diphenhydrAMINE (BENADRYL) 25 mg capsule Take 1 Capsule by mouth as needed. Active ketoconazole (NIZORAL) 2 % cream Apply topically to affected area daily. For rash under the folds 60 g 11 4 Active Additional Information Patient not taking.Reported on 06/20/2024 cephalexin (KEFLEX) 500 mg capsule Take 1 capsule every 8 hours by oral route for 5 days. 4 Active gabapentin (NEURONTIN) 100 mg capsule Take 1 Capsule by mouth 3 times daily. Active UNABLE TO FIND daily. Med Name: green lip muscle Active UNABLE TO FIND daily. Med Name: EB- N6 supplement Active cholecalciferol , vitamin D3, (VITAMIN D3 ORAL) Take by mouth daily. Active melatonin 10 mg tablet,chewable Take by mouth at bedtime. Active diphenhydramine HCl (UNISOM, DIPHENHYDRAMINE , ORAL) Take by mouth at bedtime. Active UNABLE TO FIND daily. Med Name: codium- brain health Active Active Problems Patient Care Coordination No te Formatting of this note migh t be different from the original. Patient has given permission for [facility] to verbally discuss the following information with Malena Horace [phone] who has the following relationship to the patient: Son/Daughter: Scheduling/Appt/Billing/Payment Information (does not include clinical information unless specifically indicated with separate option) Medical Information including symptoms, diagnosis, medications, test results and treatment plan (does not include Mental Health unless specifically indicated with separate option) Mental Health (Behavioral,Psychiatric,Chemical Dependency) health information, including my symptoms, diagnosis, medications and treatment plan Other - na Permission remains in effect until the patient elects to revoke it. Please confirm all appts with Malena Problem Noted Date Diagnosed Date CINTHIA (obstructive sleep apnea) 05/16/2024 Nonrheumatic aortic valve stenosis 02/22/2018 Coronary artery disease invo lving [place] heart with angina pectoris ([facility]) 02/22/2018 Encounters Date Type Department Care Team Description 07/06/[address] [address] Vicki Main MD Surgery Cancellation 06/20/2024 16:30 EST Post-op Visit [address] [address] Vicki Main MD CINTHIA (obstructive sleep apnea) (Primary Dx) 06/14/2024 7:37 EST Anesthesia Event [facility] OR [address] [place] [phone] Jak Ragland MD Dwosh, Ryan, DO 06/14/2024 7:25 EST - 06/14/2024 8:05 EST Surgery [facility] OR [address] [place] [address] Vicki Main MD DRUG-INDUCED SLEEP ENDOSCOPY [00007 (CPT??)] 06/14/2024 5:40 EST - 06/14/2024 9:30 EST Hospital Encounter [facility] OR [address] [place], [place] [address] Vicki Main MD Discharge Disposition: Home or Self Care 06/13/[address] [id number] Vicki Main MD Discuss Surgery 06/07/2024 15:20 EST - 06/07/2024 16:37 EST Hospital Encounter [facility] Pre-Surgical Testing [address], [place] [address] 05/16/2024 15:30 EDT Office Visit [address] [phone] Vicki Main MD CINTHIA (obstructive sleep apnea) (Primary Dx) from Last 3 Months Surgical History Surgery Date Site/Laterality Comments SHAWNEE AND BSO age 27 TOTAL KNEE ARTHROPLASTY Bilateral WRIST SURGERY Left COLONOSCOPY Medical History Medical History Date Comments Aortic stenosis Noted 06/07/2024 : s/p surgery Hypertension Noted 06/07/2024 : tx w/ meds Hyperlipidemia Noted 06/07/2024 : tx w/ meds CINTHIA (obstructive sleep apnea) No giselle 06/07/2024: no CPAP Hypothyroid Noted 06/07/2024 : tx w/ meds Depression Noted 06/07/2024 : controlled at present time Endometrial cancer ([facility]) Not ed 06/07/2024: History of general anesthesia No giselle 06/07/2024: Wears dentures Noted 06/07/2024 : full set Activity, other involving ca rdiorespiratory exercise Noted 06/07/2024: swimming, shaker, walking, doesnt climb stairs Aortic valve disease Noted 06/07: s/p surgery CHF (congestive heart failure) ([facility]) Noted 06/07/2024: tx w/ meds,ECHO 11/23/17 tobin: 1) mild LVH, 2) EF 65%, 3) mild AI, 4) moderate to severe with AVarea 1.0 cm2, mean gradient 35 mm Hg Chest pain Noted 06/07/2024 : not in a couple of weeks Shortness of breath Noted 2023: lugo GERD (gastroesophageal reflux disease) Noted 06/07/2024: controlled w/ meds, can lay flat but doesnt like too Claustrophobia Noted 06/07/2024 : closed in spaces Arthritis Noted 06/07/2024 : generalized Hearing loss Noted 06/07/2024 : bilateral hearing aids, still INUPIAT Wears glasses Noted 06/07/2024 : Constipation Noted 06/07/2024 : tx w/ stool softner Peripheral neuropathy Noted 05/27: feet Bruises easily Noted 06/07/2024 : Bleeds easily (HCC-CMS) Noted : Cognitive deficits Noted 024: meds, and time Lightheadedness Noted 06/07/2024 : ocassionally Family History Medical History Relation Comments Heart Disease Brother Heart Disease Mother Heart Disease Sister Relation Status Comments Brother Father Mother Sister Social History Tobacco Use Types Packs/Day Years Used Date Smoking Tobacco: Former Cigarettes 0 07/27/1961 - 07/27/1962 Smokeless Tobacco: Never Tobacco Cessation:Counseling Given: Not Answered Alcohol Use Standard Drinks/Week Comments Yes 0 (1 standard drink = 0.6 oz pur e alcohol) 2-3 week Interpersonal Safety Answer Date Record ed Physically Hurt Never 02/26/2020 Verbally Threaten Not on file 02/26/2020 Comments No Sex and Gender Information Value Date Recorded Sex Assigned at Female 06/14/2024 5:39 EST Legal Sex Female 17:29 EST Gender Identity Female 11/09/2019 12:42 EDT Sexual Orientation Not on file Obstetrics History Last Filed Vital Signs Vital Sign Reading Time Taken Comments Blood Pressure 136/51 06/14/2024 0900 EST Pulse 65 06/14/2024 0641 EST Temperature 36.4 ??C (97.5 ??F) 06/14/2024 0800 EST Respiratory Rate 17 06/14/2024 0900 EST Oxygen Saturation 95% 06/14/2024 0900 EST Inhaled Oxygen Concentration - - Weight 76.5 kg (168 lb 10.4 oz) 06/14/2024 0630 EST Height 144.8 cm (4' 9) 06/07/2024 1536 EST Body Mass Index 36.5 06/07/2024 1536 EST Plan of Treatment Upcoming Encounters Date Type Department Care Team (Late st Contact Info) Description 03/08/2025 11:00 EDT Office Visit [facility] Dermatology [address] [facility], [place] [address] Cynthia Salinas MD [address] [place] [address], [facility] [address] [place] [address] 07/27/2025 Hospital Encounter [facility] [place] [address] [place] [address] Vicki Main MD [address] [place] [address], [facility] [address] [place] [address] Scheduled Procedures Name Priority Associated Diagnoses Date/Ti me INSERTION, CRANIAL NERVE STIMULATOR CINTHIA (obstructive sleep apnea) Health Maintenance Due Date Last Done Comments Hepatitis C Screen 1945 RSV Immunization ( o r 60+ Years) (1 - 1-dose 75+ series) 2021 Advance Directive Review 03/03/2023 COVID-19 Vaccine (2023- season) 2024 Fall Risk Screening 03/02/2025 03/02/2024 Procedures Procedure Name Priority Date/Time Associated Diagnosis Comments DRUG-INDUCED SLEEP ENDOSCOPY 06/14/2024 7:24 EST CINTHIA (obstructive sleep apnea) from Last 3 Months Insurance MEDICAID [place] [facility] MEDICARE [facility] MEDICARE MEDICAID [place] Advance Directives For more information, please contact: [phone] Documents on File Type Date Recorded 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 Not Discusse d Care Teams Brick Stacker Relationship Specialty Start Date End Date [facility] [address] [place] [address] PCP - General 10/30/23
--- OUTSIDE RECORDS SUMMARY | 2024-07-25 17:56 | XMS_ITS | Encounter Summary ---
Author Organization [facility] Address [address] [place] [address] Care Team Providers Care Emery Wheel Molder Name Role Phone [facility] Primary Care Provider [phone] Reason for Visit * Auth/Cert (Routine) Specialty Diagnoses / Procedures Referred By Ana t Referred To Contact Diagnoses CINTHIA (obstructive sleep apnea) Procedures PA DISE DYN EVAL SLEEP DISORDERED BREATHING FLX DX DRUG-INDUCED SLEEP ENDOSCOPY Referral ID Status Reason Start Date Expiration Date Visits Re quested Visits Authorized [id number] 1 1 Encounter Details Date Type Department Care Team (Late st Contact Info) Description 06/14/2024 7:25 EST - 06/14/2024 8:05 EST Surgery [facility] OR [address] [place] [address] [phone] Vicki Main MD [address] [place] [address], [address] [place] [phone] DRUG-INDUCED SLEEP ENDOSCOPY [49593 (CPT??)] Surgery Details Date/Time Status Location OR Service Patient Class Case Cl ass Case Type Trauma Case? 06/14/2024 0725 Posted [facility] OR [address] Outpatient Surgery H - Elective Panel 1 Procedure LRB Anes Op Region Wound Class Comments DRUG-INDUCED SLEEP ENDOSCOPY N/A General Throat N /A Surgeon Surgeon Role Service Panel Ricarda Baker MD Resident - Assisting ENT 1 Vicki Main MD Primary ENT 1 documented in this encounter Social History Tobacco Use Types Packs/Day Years Used Date Smoking Tobacco: Former Cigarettes 0 07/27/1961 - 07/27/1962 Smokeless Tobacco: Never Alcohol Use Standard Drinks/Week Comments Yes 0 [...] Sign Reading Time Taken Comments Blood Pressure 129/46 06/14/2024 0800 EST Pulse 65 06/14/2024 0641 EST Temperature 36.4 ??C (97.5 ??F) 06/14/2024 0800 EST Respiratory Rate 14 06/14/2024 0800 EST Oxygen Saturation 98% 06/14/2024 0800 EST Inhaled Oxygen Concentration - - Weight 76.5 kg (168 lb 10.4 oz) 06/14/2024 0630 EST Height - - Body Mass Index 36.5 06/07/2024 1536 EST documented in this encounter Functional Status * Are you deaf or do you have serious difficulty hearing? Answer Date of Assessment Author No 02/25/2018 11:00 Gregorio Lockwood RN * Are you blind or do you have serious difficulty seeing, even when wearing glasses? Answer Date of Assessment Author No 02/25/2018 11:00 Gregorio Lockwood RN * Do you have serious difficulty walking or climbing stairs? (5 years old or older) Answer Date of Assessment Author No 02/25/2018 11:00 Gregorio Lockwood RN * Do you have difficulty dressing or bathing? (5 years old or older) Answer Date of Assessment Author No 02/25/2018 11:00 Gregorio Lockwood RN * Because of a physical, mental, or emotional condition, does this person have difficulty doing errands alone such as visiting a doctor's office or shopping? Answer Date of Assessment Author No 04/14/2018 10:58 Gregorio Lockwood RN documented as of this encounter Mental Status * Because of a physical, mental, or emotional condition, does this person have serious difficulty concentrating, remembering, or making decisions? Answer Entry Date Author No 04/14/2018 10:58 EDT Gregorio Mendoza RN documented in this encounter Discharge Instructions * Discharge Instructions* Ricarda Baker MD - 06/14/2024 7:55 EST DIET: regular diet ACTIVITY: You cannot drive or do anything strenuous today as you had anesthesia. MEDICATIONS: - Resume your home meds. FOLLOW-UP: You are a candidate for [facility]. You have a post op appointment on 06/20. You may call to schedule this appointment or if you have any questions or concerns. documented in this encounter Medications at Time of Discharge acetaminophen (TYLENOL) 500 mg tablet Take 2 Tabs by mouth every 6 hours. 02/27/2018 ascorbic acid, vitamin C, (VITAMIN C) 500 mg tablet Take 1 Tablet by mouth if needed. aspirin chewable 81 mg tablet Take 1 Tablet by mouth every morning. calcium carbonate (TUMS) 200 mg calcium (500 mg) tablet,chewable Take 1 Tablet by mouth 4 times daily as needed. calcium/magnesiu m (CALCIUM AND MAGNESIUM ORAL) Take by mouth daily. cephalexin (KEFLEX) 500 mg capsule Take 1 capsule every 8 hours by oral route for 5 days. 05/13/2024 chloroquine (ARALEN) 250 mg tablet Take 1 Tablet by mouth. 3 times a week 09/14/2023 cholecalciferol, vitamin D3, (VITAMIN D3 ORAL) Take by mouth daily. chrm/vineg/bit-o rang peel/gr t (APPLE CIDER VINEGAR PLUS ORAL) Take 2 Tablets by mouth daily. cyanocobalamin (VITAMIN B-12) 100 mcg tablet Take 25 Tablets by mouth daily. dilTIAZem (CARDIZEM) 30 mg tablet Take 1 Tablet by mouth every evening. 09/11/2023 diphenhydrAMINE (BENADRYL) 25 mg capsule Take 1 Capsule by mouth as needed. diphenhydramine HCl (UNISOM, DIPHENHYDRAMINE, ORAL) Take by mouth at bedtime. docusate sodium (COLACE) 100 mg capsule Take 2 Capsules by mouth 2 times daily as needed for Constipation. furosemide (LASIX) 20 mg tablet Take 1 Tablet by mouth 2 times daily. gabapentin (NEURONTIN) 100 mg capsule Take 1 Capsule by mouth 3 times daily. guaiFENesin (MUCINEX) 600 mg SR tablet Take 1 Tablet by mouth if needed. ketoconazole (NIZORAL) 2 % cream Apply topically to affected area daily. For rash under the folds 60 g 11 03/02/2024 krill oil 500 mg capsule Take by mouth daily. Fish oil levothyroxine (SYNTHROID) 100 mcg tablet Take 1 Tablet by mouth every morning. 09/13/2023 lisinopriL (PRINIVIL) 20 mg tablet Take 1 Tablet by mouth every morning. 08/30/2023 melatonin 10 mg tablet,chewable Take by mouth at bedtime. metoprolol (LOPRESSOR) 50 mg tablet Take 1 Tablet by mouth. Pt reports taking 75 mg twice daily, AM and PM omeprazole (PRILOSEC) 40 mg capsule Take 1 Capsule by mouth every morning. 08/30/2023 potassium chloride (MICRO-K) 10 mEq capsule Take 1 Capsule by mouth 2 times daily. 08/21/2023 sertraline (ZOLOFT) 100 mg tablet Take 1 Tablet by mouth daily. simvastatin (ZOCOR) 20 mg tablet Take 1 Tablet by mouth every evening. traMADol (ULTRAM) 50 mg tablet Take 1 Tablet by mouth every 6 hours as needed for Pain. triamcinolone (KENALOG) 0.1 % cream Apply topically to affected area 2 times daily. Do not apply to face, armpit or groin. 45 g 3 12/29/2019 UNABLE TO FIND daily. Med Name: green lip muscle UNABLE TO FIND daily. Med Name: EB- N6 supplement UNABLE TO FIND daily. Med Name: codium- brain health Zinc Acetate, Oral, 50 mg (zinc) capsule Take by mouth daily. documented as of this encounter Discharge Disposition Disposition Code Departure Means Destination Comment s Home or Self Care Wheelchair Home documented in this encounter H&P Notes * Ricarda Baker MD - 06/14/2024 0711 EST The preoperative history and physical which was performed within 30 days of this procedure has been reviewed and the clinically appropriate elements of the physical examination have been repeated. There are no changes to the documented history and physical or if so such changes are documented below RICARDA BAKER MD 06/14/2024 7:11 Cosigned by Vicki Main MD at 06/14/2024 7:23 EST Source Note - DIE MAINTENANCE TECHNICIAN, SCAN 2 - 05/25/2024 15:31 EDT documented in this encounter OR Notes * OR Surgeon - Vicki Main MD - 06/14/2024 0751 EST OPERATIVE REPORT SERVICE DATE: 06/14/2024 SURGEON: Vicki Main MD IMPROVEMENT INTERN: Ricarda Baker MD PREOPERATIVE DIAGNOSIS Obstructive sleep apnea with positive pressure intolerance and persistent sleep apnea after failureto tolerate CPAP POSTOPERATIVE DIAGNOSIS Same PROCEDURE Drug-induced sleep endoscopy (flexible fiberoptic laryngoscopy with examination under anesthesia). ANESTHESIA IV Sedation FINDINGS VOTE Score: LEVEL A-P Lateral Concentric Velopharynx P P P Oropharynx P Tongue-Base P Epiglottis P P None 0-25%, Partial 25-75%, Complete >75% NARRATIVE The patient was brought to the operating room and was anesthetized via the standard drug-induced sleep endoscopy protocol. The propofol infusion rate was started at 100 mcg and gradually increased toa level of 200 mcg, at which point, conditions that mimic sleep were gradually observed. With the patient not responsive to verbal commands, but still with spontaneous respiration, sleep disordered breathing events and associated desaturations were clearly observed. Under these conditions, the flexible endoscope was inserted to examine both sides of the nose as well as the pharynx and larynx. The nose was relatively unremarkable. In the nasopharynx, a mild lateral wall component was noted and there was also partial A-P collapse. More distally, a mild lateral oropharyngeal wall component was noted, but again no complete lateral oropharyngeal collapse. With simulated jaw advancement and tongue advancement, the obstruction at all levels improved . In summary, there was no evidence of complete concentric palatal obstruction and she does appear trav a candidate anatomically for hypoglossal nerve stimulation therapy. Dr. Main was present for and performed the entire procedure. Unless otherwise noted, there were no complications, no blood loss, cultures obtained, specimens removed, or drains retained. ESTIMATED BLOOD LOSS None. FLUIDS 100 cc LR URINE OUTPUT Not recorded. SPECIMENS None. CULTURES None. DRAINS/PACKS/FOREIGN MATERIALS None COMPLICATIONS None. CONDITION Good to PACU. Ricarda Baker MD Otolaryngology PGY-4 06/14/24 7:52 Vicki Main MD Otolaryngology - Head and Neck Surgery 06/14/2024 8:07 documented in this encounter Plan of Treatment Upcoming Encounters Date Type Department Care Team (Late st Contact Info) Description 03/08/2025 11:00 EDT Office Visit [facility] [address] [place] [address], [place] [address] Cynthia Salinas MD [address] [place] [address] 5 [place] [phone] 07/27/2025 Hospital Encounter [facility] OR [address] [place] [address] [phone] Vicki Main MD [address] [place] [address] 4 [place] [phone] Scheduled Procedures Name Priority Associated Diagnoses Date/Ti me INSERTION, CRANIAL NERVE STIMULATOR CINTHIA (obstructive sleep apnea) documented as of this encounter Procedures Procedure Name Priority Date/Time Associated Diagnosis Comments DRUG-INDUCED SLEEP ENDOSCOPY 06/14/2024 7:24 EST CINTHIA (obstructive sleep apnea) documented in this encounter Visit Diagnoses Diagnosis CINTHIA (obstructive sleep apnea)- Primary Obstructive sleep apnea (adult) (pediatric) CINTHIA (obstructive sleep apnea) Obstructive sleep apnea (adult) (pediatric) documented in this encounter Admitting Diagnoses Diagnosis CINTHIA (obstructive sleep apnea) Obstructive sleep apnea (adult) (pediatric) documented in this encounter Administered Medications Inactive Administered Medications - up to 3 most recent administrations Medication Order MAR Action Action Date Dose Rate Site acetaminophen (TYLENOL) solution unit dose cup 995 mg 995 mg (rounded from 1,000 mg), oral, PRN, 1 dose, Starting on Thu06/14/24 at 0749, Until Thu06/14/24 at 1135, Pain, Routine, Recovery (only) acetaminophen (TYLENOL) tablet 1,000 mg 1,000 mg, oral, PRN, 1 dose, Starting on Thu06/14/24 at 0749, Until Thu06/14/24 at 1135, Pain, Routine, Recovery (only) atropine 0.1 mg/mL syringe 0.5 mg 0.5 mg, intravenous, PRN, Starting on Thu06/14/24 at 0749, Until Thu06/14/24 at 1135, Symptomatic HR < 50, Routine, Recovery (only) diphenhydrAMINE (BENADRYL) injection 12.5 mg 12.5 mg, intravenous, PRN, 1 dose, Starting on Thu06/14/24 at 0749, Until Thu06/14/24 at 1135, nausea, Routine, Recovery (only) HYDROmorphone (PF) (DILAUDID) 0.5 mg/0.5 mL syringe 0.25-0.5 mg 0.25-0.5 mg, intravenous, EVERY 10 MINUTES PRN, Starting on Thu06/14/24 at 0749, Until Thu06/14/24 at 1135, Pain, Routine, Recovery (only) lactated ringers (LR) infusion at 75 mL/hr, intravenous, CONTINUOUS, Starting on Thu06/14/24 at 0745, Until Thu06/14/24 at 1135, Routine Rate Change 06/14/2024 7:39 EST 25 mL/hr Continued by Anesthesia 06/14/2024 7:37 EST 75 mL/hr New Bag 06/14/2024 7:15 EST 75 mL/hr naloxone (NARCAN) injection 0.2 mg 0.2 mg, intravenous, PRN, Starting on Thu06/14/24 at 0749, Until Thu06/14/24 at 1135, Opioid Reversal, Routine, Recovery (only) ondansetron (PF) (ZOFRAN) injection 4 mg 4 mg, intravenous, PRN, 1 dose, Starting on Thu06/14/24 at 0749, Until Thu06/14/24 at 1135, Nausea, Vomiting, Routine, Recovery (only) oxyCODONE (ROXICODONE) immediate release tablet 5-10 mg 5-10 mg, oral, EVERY 30 MINUTES PRN, 2 doses, Starting on Thu06/14/24 at 0749, Until Thu06/14/24 at 1135, Pain, Routine, Recovery (only) documented in this encounter Active and Recently Administered Medications Times are shown in EST. Continuous Medication Order 06/12/2024 06/13/2024 06/14/2024 lactated ringers (LR) infusion at 75 mL/hr, intravenous, CONTINUOUS, Starting on Thu06/14/24 at 0745, Until Thu06/14/24 at 1135, Routine 0715 (New Bag - Prov ider: Jonelle Mckinney RN)0737 (Continued by Anesthesia - Provider: Jorge Bennett DO)0739 (Rate Change - Provider: Jorge Bennett DO)0759 (Anesthesia Volume Adjustment - Provider: Jorge Bennett DO)1135 (Due: Completed) PRN Medication Order 06/12/2024 06/13/2024 06/14/2024 acetaminophen (TYLENOL) solution unit dose cup 995 mg(Linked Group 1) 995 mg (rounded from 1,000 mg), oral, PRN, 1 dose, Starting on Thu06/14/24 at 0749, Until Thu06/14/24 at 1135, Pain, Routine, Recovery (only) acetaminophen (TYLENOL) tablet 1,000 mg(Linked Group 1) 1,000 mg, oral, PRN, 1 dose, Starting on Thu06/14/24 at 0749, Until Thu06/14/24 at 1135, Pain, Routine, Recovery (only) atropine 0.1 mg/mL syringe 0.5 mg 0.5 mg, intravenous, PRN, Starting on Thu06/14/24 at 0749, Until Thu06/14/24 at 1135, Symptomatic HR < 50, Routine, Recovery (only) diphenhydrAMINE (BENADRYL) injection 12.5 mg 12.5 mg, intravenous, PRN, 1 dose, Starting on Thu06/14/24 at 0749, Until Thu06/14/24 at 1135, nausea, Routine, Recovery (only) HYDROmorphone (PF) (DILAUDID) 0.5 mg/0.5 mL syringe 0.25-0.5 mg 0.25-0.5 mg, intravenous, EVERY 10 MINUTES PRN, Starting on Thu06/14/24 at 0749, Until Thu06/14/24 at 1135, Pain, Routine, Recovery (only) naloxone (NARCAN) injection 0.2 mg 0.2 mg, intravenous, PRN, Starting on Thu06/14/24 at 0749, Until Thu06/14/24 at 1135, Opioid Reversal, Routine, Recovery (only) ondansetron (PF) (ZOFRAN) injection 4 mg 4 mg, intravenous, PRN, 1 dose, Starting on Thu06/14/24 at 0749, Until Thu06/14/24 at 1135, Nausea, Vomiting, Routine, Recovery (only) oxyCODONE (ROXICODONE) immediate release tablet 5-10 mg 5-10 mg, oral, EVERY 30 MINUTES PRN, 2 doses, Starting on Thu06/14/24 at 0749, Until Thu06/14/24 at 1135, Pain, Routine, Recovery (only) Linked Groups Order Group 1: acetaminophen (TYLENOL) solution unit dose cup 995 mgJump to med 995 mg (rounded from 1,000 mg), oral, PRN, 1 dose, Starting on Thu06/14/24 at 0749, Until Thu06/14/24 at 1135, Pain, Routine, Recovery (only) Or acetaminophen (TYLENOL) tablet 1,000 mgJump to med 1,000 mg, oral, PRN, 1 dose, Starting on Thu06/14/24 at 0749, Until Thu06/14/24 at 1135, Pain, Routine, Recovery (only) documented in this encounter Orders Medications Ordered That Antoni ht Not Have Been Administered Count Last Ordered Date First Ordered Date acetaminophen (TYLENOL) solu tion unit dose cup 995 mg 1 06/14/2024 acetaminophen (TYLENOL) tablet 1,000 mg 1 08/14/2023 atropine 0.1 mg/mL syringe 0.5 mg 1 024 diphenhydrAMINE (BENADRYL) i njection 12.5 mg 1 06/14/2024 HYDROmorphone (PF) (DILAUDID ) 0.5 mg/0.5 mL syringe 0.25-0.5 mg 1 06/14/2024 naloxone (NARCAN) injection 0.2 mg 1 2023 ondansetron (PF) (ZOFRAN) injection 4 mg 1 06/14/2024 oxyCODONE (ROXICODONE) immed iate release tablet 5-10 mg 1 06/14/2024 Discharge Count Last Ordered Date First Orde red Date DISCHARGE PATIENT 1 06/14/2024 documented in this encounter Care Teams Emery Wheel Molder Relationship Specialty Start Date End Date [facility] [place] [id number] PCP - General 10/30/23 documented as of this encounter
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
--- OUTSIDE RECORDS SUMMARY | 2024-07-25 17:56 | XMS_ITS | Encounter Summary ---
Author Organization [facility] Address [address] [place] [address] Care Team Providers Care Retail Branch Manager Name Role Phone [facility] Primary Care Provider [phone] Reason for Visit * Reason Comments Post-OP Follow Up Post op surgeryNo co mplaints Encounter Details Date Type Department Care Team (Late st Contact Info) Description 06/20/2024 16:30 EST Post-op Visit [facility] ENT- [address] [address] Vicki Main MD [address] [facility], [address] [place] [address] CINTHIA (obstructive sleep apnea) (Primary Dx) Social History Tobacco Use Types [...] documented as of this encounter Functional Status * Are you deaf or do you have serious difficulty hearing? Answer Date of Assessment Author No 02/25/2018 11:00 EDT GiGregorio rasheed RN * Are you blind or do [...] Answer Entry Date Author No 04/14/2018 10:58 Gregorio Lockwood RN documented in this encounter Patient Instructions * Patient Instructions* Vicki Main MD - 06/20/2024 16:30 EST Inspire Post-Operative Instructions We advise that you read the Inspire Patient Vitaly prior to implantation of the device to learn about important safety and recovery information. The manual describes components of the Inspire system and how inspire therapy will work. This also includes important SAFETY INFORMATION including risks of the device, MRI imaging after device implantation, and various medical procedures which would be contraindicated following the inspire implant (These include but are not limited to diathermy, MRI, Radiofrequency or Microwave ablation, electrocautery, defibrillation or cardioversion, certain laser procedures, radiation therapy and others) PLEASE SEE THE LINK BELOW TO READ THE COMPLETE PATIENT MANUAL PRIOR TO IMPLANTATION. https://www.accessdata.fda.gov/cdr_docs/pdf13/B207192c.pdf Risks of Inspire Surgery: Risks of surgery include pain, bleeding, infection, hematoma, scar, wound healing complications, tethering of the lead, injury to the hypoglossal nerve, tongue weakness resulting in difficulty with speech or swallowing, inappropriate stimulation and or sensing lead connection with the generator, injury to the lung, pneumothorax, injury to the marginal mandibular nerve resulting in lower lip weakness, smile asymmetry, failure of stimulator placement, blood vessel injury or damage, device relatedfailure, failure to improve sleep apnea, need to remove the device, risks of anesthesia. POST SURGERY INSTRUCTIONS DIET: Resume normal diet HYGIENE: Please wait until 48 hours after surgery before getting incisions on neck, chest, and torso wet. In the first 48 hours after surgery, will likely need to take sponge baths. WOUND CARE: Please leave pressure dressing on for 48 hours after surgery. For the first 3 days (after dressing is removed) gently apply antibiotic ointment over incisions 3 times per day; use clean q-tip. After three days transition to Aquaphor or Vaseline over the incision instead of antibiotic ointment. May place a clean bandage over incisions as needed. After 48 hours, you may get incisions wet with warm soap and water, but do not soak/submerge the incisions. Pat area dry gently. Immediately place ointment overlying. Take oral antibiotics if prescribed If skin around incision starts to get red (> 1cm), swollen, and/or more painful, please call theoffice ACTIVITY: Try to avoid sleeping on the side of your surgery, if possible. You may walk for exercise starting the day after surgery. For 2 weeks: Do not lease picker anything greater than 5 pounds with the hand/arm that's on the same side as the surgery. After 2 weeks, you may increase weight to 10 pounds. Recommend performing neck rolls 10 clockwise and 10 counterclockwise 3x/day. For 4 weeks, no strenuous activity (running, jogging, lifting weights, gardening, sports) or until cleared by physician. PAIN MEDICATIONS: For pain, you may take Tylenol 650mg every 6 hours. AND Advil (ibuprofen) 400 mg every 6 hours for pain. If your pain is not controlled by these two medications, then you may take the narcotic pain medication given to you by your doctor at the prescribed dose. Avoid aspirin for 7 days after surgery Avoid direct heat (such as heating pads) to incision sites. May gently place ice over surgery sites as needed. Please place a thin clean towel over skin first and then place ice bag over towel. Ice for 10 minutes at a time only. POST-OPERATIVE CLINIC APPOINTMENTS: 1 week: suture removal and wound check in the ENT office. 1 month: device activation and wound check with sleep medicine clinic. 3 months: device titration sleep study 4 months: final wound check in the ENT office. Yearly: device check at sleep medicine clinic. SCAR CARE: After incisions have healed, you will have a scar, which will continue to evolve over the course of12 months. Caring for your incision scars will help them to be as minimal as possible. If you are out in the sun with incision exposure, please remember to place sunscreen over the incision and surrounding skin. After 2 weeks of using ointment, may use scar cream/gel or sheets. Here are several options: Silicone Scar Sheets: These are available online. This should be used for at least 12 hours daily to have beneficial effect. Biocorneum gel: this is available online as well. This should be used 2 times daily for 60-90 days depending on the appearance of your scar. This should be applied in a thin even layer over the scar morning and night. Allow the gel to dry completely and wait at least 15 minutes after application before sun exposure. Can apply additional sunblock overlying or even makeup over the gel once dry. Sun Protection This is extremely important during the first 6 months of your scar healing. Sun exposure can cause increased redness and pigmentation which can be permanent. Wear protective clothing and sun block at all times while your scar is healing. If your scar feels thickened or raised, gentle massage can help to soften and flatten the scar. You may call to schedule an ENT appointment or if you have any questions or concerns. documented in this encounter Progress Notes * Vicki Main MD - 06/20/2024 1630 EST Follow-up Patient Evaluation Division of Otolaryngology, Head and Neck Surgery Date of Service: 06/20/2024 Provider: Vicki Main MD Chief Complaint Patient presents with Post-OP Follow Up Post op surgery No complaints History of Present Illness: Liya Anders is a 78 y.o. female who comes in today with her family for discussion of inspire implantation surgery. 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 She was not found to have concentric collapse at the level of the velopharynx. She is interested in moving forward with inspire surgery. However her recent BMI measured at her last PCP visit was up from 33.7 to 36.5. Recent sleep study: AHI: 20.7 Obstructive Apneas: 0 Mixed Apneas: 0 Central Apneas: 0 Hypopneas: 182 O2 Trev: 81% Her medical history includes depression, aortic stenosis, hypertension, hyperlipidemia and CINTHIA. Shehad a heart surgery in 2018 for a valve replacement. She is not on any blood thinning medications. She reports she has not had any neck surgery, she has history of hyperthyroidism and had radioactiveiodine in the past, she now takes a synthroid for thyroid hormone replacement. She reports prior history of difficulty waking up from anesthesia. She also cannot tolerate narcotic medications - she has hallucinations with these meds. No current nicotine use. 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 ([facility]) CINTHIA (obstructive sleep apnea) Past Medical History: Past Medical History: Diagnosis Date Activity, other involving cardiorespiratory exercise Noted 06/07/2024: swimming, shaker, walking, doesnt climb stairs Aortic stenosis Noted 06/07/2024: s/p surgery Aortic valve disease Noted 06/07/2024: s/p surgery Arthritis Noted 06/07/2024: generalized Bleeds easily ([facility]) Noted 06/07/2024: Bruises easily Noted 06/07/2024: Chest pain Noted 06/07/2024: not in a couple of weeks CHF (congestive heart failure) ([facility]) Noted 06/07/2024: tx w/ meds,ECHO 11/23/17 tobin: 1) mild LVH, 2) EF 65%, 3) mild AI, 4) moderate to severe with AVarea 1.0 cm2, mean gradient 35 mm Hg Claustrophobia Noted 06/07/2024: closed in spaces Cognitive deficits Noted 06/07/2024: meds, and time Constipation Noted 06/07/2024: tx w/ stool softner Depression Noted 06/07/2024: controlled at present time Endometrial cancer ([facility]) Noted 06/07/2024: GERD (gastroesophageal reflux disease) Noted 06/07/2024: controlled w/ meds, can lay flat but doesnt like too Hearing loss Noted 06/07/2024: bilateral hearing aids, still [place] History of general anesthesia Noted 06/07/2024: Hyperlipidemia Noted 06/07/2024: tx w/ meds Hypertension Noted 06/07/2024: tx w/ meds Hypothyroid Noted 06/07/2024: tx w/ meds Lightheadedness Noted 06/07/2024: ocassionally CINTHIA (obstructive sleep apnea) Noted 06/07/2024: no CPAP Peripheral neuropathy Noted 06/07/2024: feet Shortness of breath Noted 06/07/2024: lugo Wears dentures Noted 06/07/2024: full set Wears glasses Noted 06/07/2024: Surgeries: Past Surgical History: Procedure Laterality Date COLONOSCOPY SHAWNEE AND BSO age 27 TOTAL KNEE ARTHROPLASTY Bilateral WRIST SURGERY Left Medications: Current Outpatient Medications on File Prior to Visit Medication Sig Dispense Refill acetaminophen (TYLENOL) 500 mg tablet Take 2 Tabs by mouth every 6 hours. (Patient taking differently: Take 2 Tablets by mouth every 6 hours as needed.) ascorbic acid, vitamin C, (VITAMIN C) 500 [...] hours by oral route for 5 days. (Patient not taking: Reported on 06/07/2024) chloroquine (ARALEN) 250 mg tablet Take 1 Tablet by mouth. 3 times a week (Patient not taking: Reported on 06/07/2024) cholecalciferol, vitamin D3, (VITAMIN D3 ORAL) Take by mouth daily. chrm/vineg/bit-orang peel/gr t (APPLE CIDER VINEGAR PLUS ORAL) Take 2 Tablets by mouth daily. cyanocobalamin (VITAMIN B-12) 100 mcg tablet Take 25 Tablets by mouth daily. dilTIAZem (CARDIZEM) 30 mg tablet Take 1 Tablet by mouth every evening. diphenhydrAMINE (BENADRYL) 25 mg capsule Take 1 Capsule by mouth as needed. (Patient not taking: Reported on 06/20/2024) diphenhydramine HCl (UNISOM, DIPHENHYDRAMINE, ORAL) Take by [...] Take 1 Tablet by mouth if needed. (Patient not taking: Reported on 06/20/2024) ketoconazole (NIZORAL) 2 % cream Apply topically to affected area daily. For rash under the folds (Patient not taking: Reported on 06/20/2024) 60 g 11 krill oil 500 mg capsule Take by mouth daily. Fish oil levothyroxine (SYNTHROID) 100 mcg tablet Take 1 Tablet by mouth every morning. lisinopriL (PRINIVIL) 20 mg tablet Take 1 Tablet by mouth every morning. melatonin 10 mg tablet,chewable Take by mouth at bedtime. metoprolol (LOPRESSOR) 50 mg tablet Take 1 Tablet by mouth. Pt reports taking 75 mg twice daily, AMand PM (Patient not taking: Reported on 06/07/2024) omeprazole (PRILOSEC) 40 mg capsule Take 1 Capsule by mouth every morning. potassium chloride (MICRO-K) 10 mEq capsule Take 1 Capsule by mouth 2 times daily. sertraline (ZOLOFT) 100 mg tablet Take 1 Tablet by mouth daily. simvastatin (ZOCOR) 20 mg tablet Take 1 Tablet by mouth every evening. traMADol (ULTRAM) 50 mg tablet Take 1 Tablet by mouth every 6 hours as needed for Pain. (Patient not taking: Reported on 06/07/2024) triamcinolone (KENALOG) 0.1 % cream Apply topically to affected area 2 times daily. Do not apply toface, armpit or groin. (Patient not taking: Reported on 06/20/2024) 45 g 3 UNABLE TO FIND daily. Med Name: green lip muscle UNABLE TO FIND daily. Med Name: EB- N6 supplement UNABLE TO FIND daily. Med Name: codium- brain health Zinc Acetate, Oral, 50 mg (zinc) capsule Take by mouth daily. No current facility-administered medications on file prior to visit. ALLERGIES: Allergies Allergen Reactions Anesthesia S/I-40 (Propofol) [Propofol] PT WITH GREAT DIFFICULTY WAKING UP POST ANESTHESIA Morphine Other (See Comments) hallucinations Other - See Comments Environmental Social History: Social History Tobacco Use Smoking status: Former Current packs/day: 0.00 Types: Cigarettes Start date: 07/27/1961 Quit date: 07/27/1962 Years since quittin.9 Smokeless tobacco: Never Substance Use Topics Alcohol use: Yes Comment: 2-3 week PHYSICAL EXAMINATION Constitutional: APPEARANCE: The patient appears Alert, appropriate and comfortable ABILITY TO COMMUNICATE / VOICE: Appropriate voice for age , 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 PALPATION: There are no masses or sinus tenderness. SALIVARY GLANDS: Parotid and submandibular glands are normal bilaterally FACIAL STRENGTH: facial nerve function is intact and symmetric bilaterally Nose, Mouth and Throat: NOSE: Septum mostly midline, normal turbinates and mucosa, no polyps LIPS, TEETH & GUMS: normal lips, gums and dentition for age ORAL CAVITY & OROPHARYNX: Normal oral cavity and oropharynx mucosa and structures HYPOPHARYNX & PHARYNGEAL HAZEL: limited view LARYNX: not examined Neck: GENERAL: Supple, no asymmetry or crepitus, trachea midline THYROID: not palpable Lymphatic: CERVICAL LYMPH NODES: No pathologic cervical lymphadenopathy noted Assessment and Plan: Encounter Diagnoses Name Primary? CINTHIA (obstructive sleep apnea) Yes We discussed her recent sleep endoscopy, she did not have evidence of complete concentric collapse in the region of the velopharynx. She was noted to have AP collapse with improvement in obstruction with simulated jaw/tongue advancement. The patient's AHI is 20.7 with < 25% of central and mixed apneas. However her BMI did recently increase to 36.5 based on her pre-operative testing. Unfortunately most insurance companies require BMI of 35 or less. We discussed weight loss to achieve goal BMI. She is motivated to have this surgery. We discussed the nature of this procedure. We discussed that this is generally performed via 2 incisions: one in the neck for placement of the nerve stimulator, and one in the chest for the sensing lead and device. We discussed the risks and benefits of the surgery. Risks of surgery include pain, bleeding, infection, hematoma, scar, wound healing complications, tethering of the lead, injury to the hypoglossal nerve, tongue weakness, inappropriate stimulation and or sensing lead connection with the generator, injury to the lung, pneumothorax, injury to the marginal mandibular nerve resulting in lower lip weakness, smile asymmetry, failure of stimulator placement, blood vessel injury or damage, device related failure, failure to improve sleep apnea, need to remove the device, risks of anesthesia. I provided handout with instruction and information about the surgery. She will notify our clinic when she has achieved her goal BMI and will have her PCP send over documentation when this goal BMI is reached so we can move forward with surgery scheduling. I spent a total of 30 minutes on the date of this encounter meeting with the patient and reviewing documentation/coordinating care as described in the above note. No procedures were performed at the time of the visit. Vicki Main MD documented in this encounter Plan of Treatment Upcoming Encounters Date Type Department Care Team (Late st Contact Info) Description 03/08/2025 11:00 EDT Office Visit [facility] Dermatology [address] [place] [address], [place] [address] Cynthia Salinas MD [address] [place] [address] [address] [place] [address] 07/27/2025 Hospital Encounter [facility] [address] [place] [address] [id number] Vicki Main MD [address] [place] [address] [address] [place] [address] Scheduled Procedures Name Priority Associated Diagnoses Date/Ti me INSERTION, CRANIAL NERVE STIMULATOR CINTHIA (obstructive sleep apnea) documented as of this encounter Visit Diagnoses Diagnosis CINTHIA (obstructive sleep apnea)- Primary Obstructive sleep apnea (adult) (pediatric) documented in this encounter Orders Case Request Count Last Ordered Date First Orde red Date CASE REQUEST OPERATING ROOM 1 06/20/2024 documented in this encounter Care Teams Retail Branch Manager Relationship Specialty Start Date End Date [facility] [address] [place] [address] PCP - General 10/30/23 documented as of this encounter
--- OUTSIDE RECORDS SUMMARY | 2024-07-25 17:56 | XMS_ITS | Encounter Summary ---
Author Organization [facility] Address [address] [place] [address] Care Team Providers Care Research Study Assistant Name Role Phone [facility] Primary Care Provider [phone] Reason for Visit * Reason Comments New Patient Visit Pt is here for a NPV for CINTHIA and inspire consult * Consult (Urgent) - Receiving Office to Obtain Authorization Specialty Diagnoses / Procedures Referred By Ana caro Referred To Contact Otolaryngology Diagnoses Obstructive sleep apnea (adult) (pediatric) Catherine Reyes, [address] [place] [address] Phone: tel: fax: Vicki Main MD [address] [place] [phone] Phone: tel: fax: Referral ID Status Reason Start Date Expiration Date Visits Requested Visits Authorized [id number] Receiving Office to Obtain Authorization 1 1 Encounter Details Date Type Department Care Team (Late st Contact Info) Description 05/16/2024 15:30 EDT Office Visit [facility] ENT- [address] [address] Vicki Main MD [address] [place] [phone] CINTHIA (obstructive sleep apnea) (Primary Dx) Social History Tobacco Use Types Packs/Day Years Used Date Smoking Tobacco: Former Cigarettes 0 07/27/1961 - 07/27/1962 Smokeless Tobacco: Never Tobacco Cessation:Counseling Given: Not Answered Interpersonal Safety Answer Date Record ed Physically Hurt Never 02/26/2020 Verbally Threaten Not on file 02/26/2020 Comments Unknown Sex and Gender Information Value Date Recorded [...] * Patient Instructions* Vicki Main MD - 05/16/2024 15:30 EDT Inspire Implantation We advise that you read the Inspire [...] (These include but are not limited to MRI, Radiofrequency or Microwave ablation, electrocautery, defibrillation or cardioversion, certain laser procedures,radiation therapy and others) PLEASE SEE THE LINK BELOW TO READ THE COMPLETE PATIENT MANUAL PRIOR TO IMPLANTATION. https://www.accessdata.fda.gov/cdr_docs/pdf13/[email or web address].pdf RISKS OF SURGERY: Risks of surgery include pain, bleeding, infection, hematoma, scar, wound healing complications, tethering of the lead, injury to the hypoglossal nerve, tongue weakness, inappropriate stimulation andor sensing lead connection with the generator, injury to the lung, pneumothorax, injury to the marginal mandibular nerve resulting in lower lip weakness, smile asymmetry, failure of stimulator placement, blood vessel injury or damage, device related failure, failure to improve sleep apnea, need to remove the device, risks of anesthesia. POST-PROCEDURE INSTRUCTIONS DIET: Resume normal diet HYGIENE: Please wait until 48 hours after surgery before getting incisions on neck, chest, and torso wet. In the first 48 hours after surgery, will likely need to take sponge baths. WOUND CARE: Please leave pressure dressing on for 48 hours after surgery. Gently place antibiotic ointment over incisions 2 times per day; use clean q-tip. May place a clean bandage over incisions as needed. After 48 hours, you may get incisions wet with warm soap and water, but do not soak the incisions. Pat area dry gently. Immediately place antibiotic ointment. Take oral antibiotics as prescribed If skin around incision starts to get red (> 1cm), swollen, and/or more painful, please call theoffice ACTIVITY: Try to avoid sleeping on the side of your surgery, to the extent possible. You may walk for exercise starting the day after surgery. For 2 weeks: Do not clam picker anything greater than 5 pounds with the hand/arm that's on the same side as the surgery. After 2 weeks, you may increase weight to 10 pounds. Consider performing neck rolls 10 clockwise and 10 counterclockwise 3x/day. For 4 weeks, no strenuous activity (running, jogging, lifting weights, gardening, sports) or until cleared by physician. PAIN MEDICATIONS: You will be prescribed xxx for pain. If pain is not severe, consider taking Tylenol 650mg every 6 hours Avoid aspirin for 7 days after surgery Avoid direct heat (such as heating pads) to incision sites. May gently place ice over surgery sites as needed. Please place a thin clean towel over skin first and then place ice bag over towel. Ice for 10 minutes at a time only. POST-OPERATIVE CLINIC APPOINTMENTS: 1 week: suture removal and wound check in the office. 1 month: device activation and wound check in the office. 3 months: device titration sleep study 4 months: final wound check in the office. Yearly: device check at office. SCAR CARE: After incisions have healed, you will have a scar, which will continue to evolve over the course of12 months. Caring for your incision scars will help them to be as minimal as possible. If you are out in the sun with incision exposure, please remember to place sunscreen over the incision and surrounding skin. You may use vitamin E or ???Scar ointment/cream?? to help soften scar. Please wait one month aftersurgery before starting this. documented in this encounter Progress Notes * Vicki Main MD - 05/16/2024 1530 EDT Consultation/ New Patient Evaluation Division of Otolaryngology, Head and Neck Surgery Date of Service: 05/16/2024 Provider: Vicki Main MD Chief Complaint Patient presents with New Patient Visit Pt is here for a NPV for CINTHIA and inspire consult Catherine Reyes has requested that I see Liya Anders in consultation regarding CINTHIA. History of Present Illness: Liya Anders is a 78 y.o. female who comes in today for evaluation of her CINTHIA. She was diagnosed with CINTHIA in 2004 with RDI of 27/hr. She has tried CPAP and tried several different masks and was unable to tolerate it. She has stopped using her CPAP due to inability to tolerate it - she feels she is suffocating when she puts it on and rips it off at night. She is edentulous and cannot tolerate anoral appliance. She takes zolpidem for sleeping and melatonin. She generally falls asleep within 15-30 minutes without difficulty. She recently had a in lab sleep study performed: AHI: 20.7 Obstructive Apneas: 0 Mixed Apneas: 0 Central Apneas: 0 Hypopneas: 182 O2 Trev: 81% BMI: 33.75 Her medical history includes depression, aortic stenosis, [...] aortic valve stenosis Coronary artery disease involving [place] heart with angina pectoris ([facility]) Past Medical History: Past Medical History: Diagnosis Date Aortic stenosis Depression Endometrial cancer ([facility]) Hyperlipidemia Hypertension Hypothyroid CINTHIA (obstructive sleep apnea) Surgeries: Past Surgical History: Procedure Laterality Date SHAWNEE AND BSO age 27 TOTAL KNEE ARTHROPLASTY Bilateral WRIST SURGERY Medications: Current Outpatient Medications on File Prior to Visit Medication Sig Dispense Refill acetaminophen (TYLENOL) 500 mg tablet Take 2 Tabs by mouth every 6 hours. ascorbic acid, vitamin C, (VITAMIN C) 500 [...] hours by oral route for 5 days. chloroquine (ARALEN) 250 mg tablet Take 1 Tablet by mouth. 3 times a week (Patient not taking: Reported on 03/02/2024) chrm/vineg/bit-orang peel/gr t (APPLE CIDER VINEGAR PLUS ORAL) Take 2 Tablets by mouth daily. cyanocobalamin (VITAMIN B-12) 100 mcg tablet Take 1 Tablet by mouth daily. dilTIAZem (CARDIZEM) 30 mg tablet Take 1 Tablet by mouth every evening. diphenhydrAMINE (BENADRYL) 25 mg capsule Take 1 Capsule by mouth as needed. docusate sodium (COLACE) 100 mg capsule Take 2 Capsules by mouth 2 times daily as needed for Constipation. furosemide (LASIX) 20 mg tablet Take 1 Tablet by mouth 2 times daily. guaiFENesin (MUCINEX) 600 mg SR tablet Take 1 Tablet by mouth 2 times daily. ketoconazole (NIZORAL) 2 % cream Apply topically to affected area daily. For rash under the folds 60 g 11 krill oil 500 mg capsule Take by mouth daily. levothyroxine (SYNTHROID) 100 mcg tablet Take 1 Tablet by mouth daily. lisinopriL (PRINIVIL) 20 mg tablet Take 1 Tablet by mouth daily. metoprolol (LOPRESSOR) 50 mg tablet Take 1 Tablet by mouth. Pt reports taking 75 mg twice daily, AMand PM omeprazole (PRILOSEC) 40 mg capsule Take 1 Capsule by mouth every morning. potassium chloride (MICRO-K) 10 mEq capsule Take 1 Capsule by mouth 2 times daily. sertraline (ZOLOFT) 100 mg tablet Take 1 Tablet by mouth daily. simvastatin (ZOCOR) 20 mg tablet Take 1 Tablet by mouth daily. tocopheryl acetate (VITAMIN E) 200 unit capsule Take 1 Capsule by mouth daily. (Patient not taking:Reported on 03/02/2024) traMADol (ULTRAM) 50 mg tablet Take 1 Tablet by mouth every 6 hours as needed for Pain. triamcinolone (KENALOG) 0.1 % cream Apply topically to affected area 2 times daily. Do not apply toface, armpit or groin. (Patient not taking: Reported on 10/30/2023) 45 g 3 UNKNOWN TO PATIENT sleeping pill patient unsure of name. Zinc Acetate, Oral, 50 mg (zinc) capsule Take by mouth. (Patient not taking: Reported on 10/30/2023) No current facility-administered medications on file prior to visit. ALLERGIES: Allergies Allergen Reactions Anesthesia S/I-40 (Propofol) [Propofol] PT WITH GREAT DIFFICULTY WAKING UP POST ANESTHESIA Morphine Other (See Comments) hallucinations Social History: Social History Tobacco Use Smoking status: Former Current packs/day: 0.00 Types: Cigarettes Start date: 07/27/1961 Quit date: 07/27/1962 Years since quittin.8 Smokeless tobacco: Never Substance Use Topics Alcohol use: Not on file Comment: 2-3 week Family History: Problem Relation Name Comments Heart Disease Mother Review of Systems: Review of Systems Constitutional: Positive for fatigue. Negative for chills, fever and unexpected weight change. HENT: Negative for congestion, ear pain, hearing loss, nosebleeds, postnasal drip and rhinorrhea. Eyes: Negative for photophobia and visual disturbance. Respiratory: Positive for shortness of breath. Negative for cough and wheezing. Cardiovascular: Positive for leg swelling. Negative for chest pain and palpitations. Gastrointestinal: Negative for nausea and vomiting. Musculoskeletal: Positive for arthralgias and myalgias. Skin: Positive for rash. Allergic/Immunologic: Positive for environmental allergies. Neurological: Positive for headaches. Negative for weakness. Hematological: Bruises/bleeds easily. Psychiatric/Behavioral: The patient is not nervous/anxious. 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 PALPATION: There are no masses or sinus tenderness. SALIVARY GLANDS: Parotid and submandibular glands are normal bilaterally FACIAL STRENGTH: facial nerve function is intact and symmetric bilaterally Nose, Mouth and Throat: NOSE: Septum mostly midline, normal turbinates and mucosa, no polyps LIPS, TEETH & GUMS: Edentulous, normal gingiva ORAL CAVITY & OROPHARYNX: Normal oral cavity and oropharynx mucosa and structures HYPOPHARYNX & PHARYNGEAL HAZEL: limited view LARYNX: not examined Neck: GENERAL: Supple, no asymmetry or crepitus, trachea midline THYROID: not palpable Lymphatic: CERVICAL LYMPH NODES: No pathologic cervical lymphadenopathy noted CHEST: Chest wall normal on the right. Assessment and Plan: Encounter Diagnoses Name Primary? CINTHIA (obstructive sleep apnea) Yes We discussed options for her sleep apnea. We discussed that CPAP is gold standard for CINTHIA. She reports she is unable to tolerate CPAP and is interested in other surgical options. she is interested inhypoglossal nerve stimulator implantation. We discussed the nature of this procedure. [...] to the hypoglossal nerve, tongue weakness, inappropriate stimul ation and or sensing lead connection with the generator, injury to the lung, pneumothorax, injury to the marginal mandibular nerve resulting in lower lip weakness, smile asymmetry, failure of stimulator placement, blood vessel injury or damage, device related failure, failure to improve sleep apnea, need to remove the device, risks of anesthesia. The patient agreed to read the Inspire Patient Vitaly prior to [...] cardioversion, certain laser procedures, radiation therapy and others). I provided a link to the PDF for this patient safety data to the patient. The patient has BMI of 33, the patient's AHI is 20.7 with < 25% of central and mixed apneas. Based on this the patient is a candidate to proceed with DISE testing. We discussed that if the patient is interested in proceeding. The next step involves drug induced sleep endoscopy to evaluate the patient's pattern of collapse to determine if she is a candidate for implantation. We discussed the nature of DISE procedure along with risks of the procedure. The patient will work with our schedulers to set up a time for DISE if interested. Vicki Main MD documented in this encounter Plan of Treatment Upcoming Encounters Date Type Department Care Team (Late st Contact Info) Description 03/08/2025 11:00 EDT Office Visit [facility] Dermatology [address] [place] [address], [place] [address] Cynthia Salinas MD [address] [place] [address], [facility] [address] [place] [phone] 07/27/2025 Hospital Encounter [facility] OR [address] [place] [phone] Vicki Main MD [address] [place] [address], [address] [place] [phone] Scheduled Procedures Name Priority Associated Diagnoses Date/Ti me INSERTION, CRANIAL NERVE STIMULATOR CINTHIA (obstructive sleep apnea) documented as of this encounter Visit Diagnoses Diagnosis CINTHIA (obstructive sleep apnea)- Primary Obstructive sleep apnea (adult) (pediatric) documented in this encounter Historical Medications * This list may reflect changes made after this encounter. cephalexin (KEFLEX) 500 mg capsule Take 1 capsule every 8 hours by oral route for 5 days. 05/13/2024 added in this encounter Orders Case Request Count Last Ordered Date First Orde red Date CASE REQUEST OPERATING ROOM 1 05/16/2024 documented in this encounter Care Teams Research Study Assistant Relationship Specialty Start Date End Date [facility] [address] [place] [address] PCP - General 10/30/23 documented as of this encounter
--- OUTSIDE RECORDS SUMMARY | 2024-07-25 17:56 | XMS_ITS | Encounter Summary ---
Author Organization [facility] Address [address] [place] [address] Care Team Providers Care Bobbin Fixer Name Role Phone [facility] Primary Care Provider [phone] Reason for Visit * Reason Comments Cough Nasal Congestion Chest Congestion Encounter Details Date Type Department Care Team (Late st Contact Info) Description 10/30/2023 13:45 EDT [facility] [address] [place] [phone] Rhonda Fields PA-C [address] [facility] [address] [place], [place] [phone] URI with cough and congestion (Primary Dx) [...] - documented in this encounter Functional Status * Are you deaf or do you have serious difficulty hearing? Answer Date of Assessment Author No 02/25/2018 11:00 EDT Gregorio Mendoza RN * Are you blind or do you have serious difficulty seeing, even when wearing glasses? Answer Date of Assessment Author No 02/25/2018 11:00 EDT Gregorio Mendoza RN * Do you have serious difficulty walking or climbing stairs? (5 years old or older) Answer Date of Assessment Author No 02/25/2018 11:00 EDT Gregorio Mendoza RN * Do you have difficulty dressing or bathing? (5 years old or older) Answer Date of Assessment Author No 02/25/2018 11:00 EDT Gregorio Mendoza RN * Because of a physical, mental, or emotional condition, does this person have difficulty doing errands alone such as visiting a doctor's office or shopping? Answer Date of Assessment Author No 04/14/2018 10:58 EDT Gregorio Mendoza RN documented as of this encounter Mental Status * Because of a physical, mental, or emotional condition, does this person have serious difficulty concentrating, remembering, or making decisions? Answer Entry Date Author No 04/14/2018 10:58 CARMITAT Gregorio Mendoza RN documented in this encounter Patient Instructions [...] saline rinses or lavage (example: Netipot, Neilmed, [place]) -Air humidifier, steamy shower, warm compress to [...] in this encounter Ordered Prescriptions Prescription Sig Dispense Quantity Refills Last Filled Start Date End Date cefpodoxime (VANTIN) 200 mg tabletIndications: URI with cough and congestion Take 1 Tablet by mouth 2 times daily for 5 days. 10 Tablet 10/30/2023 4 doxycycline (MONODOX) 100 mg capsuleIndications :URI with cough and congestion Take 1 Capsule by mouth 2 times daily for 5 days. 10 Capsule 10/30/2023 4 amoxicillin-clavul anate (AUGMENTIN) 875-125 mg per tabletIndications: URI with cough and congestion Take 1 Tablet by mouth 2 times daily for 5 days. 10 Tablet 10/30/2023 4 documented in this encounter Progress Notes * Lona Coughlin LPN - 10/30/2023 1345 EDT CC/HPI: daughter reports pt here for sinus and chest congestion x a month. Just returned from [place]. Coughing up yellowish green mucous. Covid Screening: [...] RN or in discussion with available provider (RENTAL REPRESENTATIVE's and CCA's can defer to Charge Nurse to complete triage when appropriate) PCP: [facility] [place] * Rhonda Fields PA-C - 10/30/2023 1345 EDT [facility] Chief Complaint(s): Chief Complaint Patient [...] below. Patient is advised in use of [employer] to access any lab results or other [...] lower extremity swelling. Onset symptoms while in [place], just spent a 1 month vacation there. Thought initially might have been allergies or issue with air conditioning. Both she and her daughter have allergies. Pollen has been very bad in [place] other daughter that is with family states. [...] note may be in part documented using [employer] dictation software. Please forgive any errors, omissions or typos that may result from use of dictation. documented in this encounter Plan of Treatment Upcoming Encounters Date Type Department Care Team (Late st Contact Info) Description 03/08/2025 11:00 EDT Office Visit [facility] Dermatology [address] [facility], [place], [place] [phone] Cynthia Salinas MD [address] [place] [address] [address] [place] [address] 07/27/2025 Hospital Encounter [facility] OR [address] [place] [phone] Vicki Main MD [address] [place] [address] 4 [place] [address] Scheduled Procedures Name Priority Associated [...] Hyperinflation suggestive of COPD. 3. Cardiac enlargement. [id number] Narrative 10/30/2023 15:45 EDT XR CHEST 2 [...] Hyperinflation suggestive of COPD. 3. Cardiac enlargement. [id number] Rhonda Fields PA-C IMG DIAGNOSTIC IMAGING O RDERABLES Final Result documented in this encounter Visit Diagnoses Diagnosis [...] may reflect changes made after this encounter. diphenhydrAMINE (BENADRYL) 25 mg capsule Take 1 Capsule by mouth as needed. guaiFENesin (MUCINEX) 600 mg SR tablet Take 1 Tablet by mouth if needed. potassium chloride (MICRO-K) 10 mEq capsule Take 1 Capsule by mouth 2 times daily. 08/21/2023 levothyroxine (SYNTHROID) 100 mcg tablet Take 1 Tablet by mouth every morning. 09/13/2023 omeprazole (PRILOSEC) 40 mg capsule Take 1 Capsule by mouth every morning. 08/30/2023 lisinopriL (PRINIVIL) 20 mg tablet Take 1 Tablet by mouth every morning. 08/30/2023 dilTIAZem (CARDIZEM) 30 mg tablet Take 1 Tablet by mouth every evening. 09/11/2023 chloroquine (ARALEN) 250 mg tablet Take 1 Tablet by mouth. 3 times a week 09/14/2023 added in this encounter Care Teams Bobbin Fixer Relationship Specialty Start Date End Date [facility] [address] [facility] [place] [address] PCP - General 10/30/23 documented as of this encounter
--- OUTSIDE RECORDS SUMMARY | 2024-07-25 17:56 | XMS_ITS | Encounter Summary ---
Author Organization [facility] Address [address] [place] [address] Care Team Providers Care Call Center Analyst Name Role Phone [facility] Primary Care Provider [phone] Reason for Referral * Consult (Routine/Next Available) - Authorization Not Required Specialty Diagnoses / Procedures Referred By Ana t Referred To Contact Dermatology Diagnoses Basal cell carcinoma of right forehead Procedures WI ADJT TIS TRNS/REARGMT F/C/C/M/N/A/G/H/F 10SQCM/< WI ADJT/REARGMT F/C/C/M/N/AX/G/H/F 10.1-30.0 SQ CM WI ADJNT TIS TRNSFR/REARGMT ANY AREA 30.1-60 SQ CM WI SPLIT AGRFT F/S/N/H/F/G/M/D GT 1ST 100 CM/</1 % WI SPLIT AGRFT F/S/N/H/F/G/M/D GT EA 100 CM/EA 1 % WI FTH/GF FR W/DIR CLSR F/C/C/M/N/AX/G/H/F 20SQCM/< WI FTH/GT FR W/DIR CLSR F/C/C/M/N/AX/G/H/F EA ADDL WI FRMJ DIR/TUBE PEDCL W/WOTR FH/CH/CH/M/N/AX/G/H/F WI DELAY FLAP/SECTIONING FLAP F/C/C/N/AX/G/H/F WI FOREHEAD FLAP W/PRESERVATION VASCULAR PEDICLE WI GRAFT COMPOSITE W/PRIMARY CLOSURE DONOR AREA WI MOHS MICROGRAPHIC H/N/H/F/G 1ST STAGE 5 BLOCKS [facility] [address] [address] [address] Phone: tel: fax: Jonelle Rain MD [address] [facility], [address] [place] [address] Phone: tel: fax: Referral ID Status Reason Start Date Expiration Date Visits Requested Visits Authorized [id number] Authorization Not Required Specialty Services Required 4 [...] st Contact Info) Description 03/07/2024 Orders Only [facility] [address] [place] [address] Darren Stubbs RN Basal cell carcinoma of [...] Gregorio Mendoza RN documented in this encounter Progress Notes * Darren Stubbs [...] morphine. Immunosuppression: None Mohs referral sent to [facility] Dermatology (WP5) documented in this encounter Plan of Treatment Upcoming Encounters Date Type Department Care Team (Late st Contact Info) Description 03/08/2025 11:00 EDT Office Visit [facility] Dermatology [address] [facility], [place] [address] Cynthia Salinas MD [address] [place] [address], [address] [place] [phone] 07/27/2025 Hospital Encounter [facility] OR [address] [place] [address] Vicki Main MD [address] [facility], [facility], [address] [place] [address] Scheduled Procedures Name Priority Associated Diagnoses Date/Ti me INSERTION, CRANIAL NERVE STIMULATOR CINTHIA (obstructive sleep apnea) Scheduled Referrals Name Type Priority Associated Diagnoses Order Schedule AMB CONS/FOLLOW UP MOHS SURGERY Outpatient Referral Routine/Next Available Basal cell carcinoma of right forehead Expected: 04/07/2024 (Approximate), Expires: 03/07/2025 documented as of this encounter Visit Diagnoses Diagnosis Basal cell carcinoma of right forehead- Primary Basal cell carcinoma of skin of other and unspecified parts of face documented in this encounter Care Teams Call Center Analyst Relationship Specialty Start Date End Date [facility] [address] [place] [address] PCP - General 10/30/23 documented as of this encounter
--- OUTSIDE RECORDS SUMMARY | 2024-07-25 17:56 | XMS_ITS | Encounter Summary ---
Author Organization [facility] Address [address] [place] [address] Care Team Providers Care Rehabilitation Physician Name Role Phone Kenyon [facility] Primary Care Provider [phone] Reason for Visit * Reason Onset Date Comments Discuss Surgery 06/13/2024 Encounter Details Date Type Department Care Team (Late st Contact Info) Description 06/13/2024 Telephone [facility]- [address] [id number] Vicki Main MD [address] [place] [address], [address] [place] [address] Discuss Surgery Social History Tobacco Use Types Packs/Day Years [...] Date Author No 04/14/2018 10:58 EDT Gregorio Mendoaz RN documented in this encounter Miscellaneous Notes * Telephone Encounter - Peg Coppola - 06/13/2024 1228 EST Spoke to Patient and daughter in person to discuss surgery on Thursday06/14/2024. Advised Patient/Patients Parent or Guardian to arrive no later than 5:25 AM as surgery is set to begin around 7:25 AM . Advised no food after midnight however clear, fat-free beverages are acceptable until 4 hours priorto the surgical start time 3:25 AM (I.e. water, apple juice, pedialyte or gatorade - not red or purple in color). Consent Obtained on DOS. Received H&P from Dr. Santo De Dios on 05/23/2024. Scanned into Patient Chart on 06/13/24. Patient/Patients Parent or Guardian understands the information provided regarding surgery and has had the opportunity to ask additional questions about this information. Additional questions have been answered to the patient's satisfaction. documented in this encounter Plan of Treatment Upcoming Encounters Date Type Department Care Team (Late st Contact Info) Description 03/08/2025 11:00 EDT Office Visit [facility] Dermatology [address] [place] [address] Cynthia Salinas MD [address] [facility] [address] [place] [phone] 07/27/[address] [facility] [place] [address] [place] [address] Vicki Main MD [address] [facility] [address] [place] [address] Scheduled Procedures Name Priority Associated Diagnoses Date/Ti me INSERTION, CRANIAL NERVE STIMULATOR CINTHIA (obstructive sleep apnea) documented as of this encounter Visit Diagnoses Not on filedocumented in this encounter Care Teams Rehabilitation Physician Relationship Specialty Start Date End [facility] [address] [facility] [place] [address] PCP - General 10/30/23 documented as of this encounter
--- OUTSIDE RECORDS SUMMARY | 2024-07-25 17:56 | XMS_ITS | Continuity of Care Document ---
Author Organization [place] [facility], [facility] Address [address] [place] [address] Care Team Providers Care Radiologic Technologist Mammogram Name Role Phone JACQUELINE ROCKWELL Radio Reporter [facility] GENERAL SURGERY Gastroenterologi st KELLY STEVENSON Supervisor [employer] [facility] Orthopedist [phone] [facility] Family Vt dicine ROSETTE PALOMINO Physical Therapist ALYSSA MONTEZ Sleep Medicine VIJI STEWART Radio Reporter Assessment No assessment recorded. Plan of Treatment Reminders Order Date Submit Date Provider Last Modified By Organization Details Last Modified Time Details Appointments Follow Up 30 2023 10:20A M SACHIN JAMES Not available Not available Not available Acupunctu re 10 2024 10:30A M [facility] Not available Not available Not available Massage 30 2024 02:00P M [facility] Not available Not available Not available Reiki 2024 03:30P M [facility] Not available Not available Not available Follow Up 2024 11:30A M SACHIN JAMES Not available Not available Not available Lab culture, wound - specimen is taken from right side of fore head next to eyebrow 2023 024 MACIEL [facility] (Registration ), [address], [place], [address], 05/14/2024 08:46:11 Referral None recorded. Procedures None recorded. Surgeries None recorded. Imaging None recorded. Medication Orders cephalexi n 500 mg capsule 2023 024 MACIEL [id number], [address] [place], [address], 05/25/2024 13:49:16 Patient TargetsNo targets recorded. Patient Instructions Encounter Date Encounter Id Patient Instructions Last Modified By Organization Details Last Modified Time 05/13/2024 [id number] 1. Wound culture obtained today will take [...] Not available 05/13/2024 13:45:12 Reason for Referral None Reported. Results Created Date Observation Date Name Description Value Unit Range Abnormal Flag Note LastModifiedBy Organization Detail LastModifiedTime 06/03/20 24 06/02/2024 trans -thor acic echoc ardio gram (TTE) (PROC ) No observ ation record ed. Not Available 06/03 11:05:57 Result Notes None recorded. Problems Name Problem SNOMED Code Status Onset Date Resolution Date Notes Provider Name and Address Organization Details Recorded Time Pain in face 79091981 Active 2023 JACQUELIN QUISPE [address], [place], [address], [facility] 4 21:06:12 Gastroes ophageal reflux disease without esophagi tis 471867020 Active 2023 JACQUELIN QUISPE [address], [place], [address], [facility] 4 16:15:26 Pain in right hip joint 1663736866 58850 Active 2023 SACHIN JAMES, CLAIMS ASSISTANT [address], [place], [address], [facility]. 4 10:25:34 Hypokale cheryl 24034910 Active 2023 SACHIN JAMES, CLAIMS ASSISTANT [address], [place], [address], [facility]. 4 10:35:09 Hyperlip idemia 63896210 Active 2022 PERI LACOURSE, DIRECTOR BUSINESS INTEGRATION null, [facility]. 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 3 10:52:49 [facility] l hyperten maru 17466843 Active 2022 PERI LACOURSE, DIRECTOR BUSINESS INTEGRATION null, [facility]. 3 10:48:19 Chronic diastoli c heart failure 374416334 Active 2022 PERI LACOURSE, DIRECTOR BUSINESS INTEGRATION null, [facility]. 3 10:52:40 Arterios clerotic vascular disease 55346328 Active 2022 PERI LACOURSE, DIRECTOR BUSINESS INTEGRATION null, [facility], [facility]. 3 10:52:30 Right flank pain 686107187 Active 2022 Alicja Seibold null, [facility], [facility]. 4 12:10:01 Pain in right foot 1167522532 08628 Active 2022 Alicja Seibold null, [facility]. 4 12:09:49 Obesity 870653931 Active 2023 Alicja Seibold null, [facility], [facility]. 4 12:09:38 Depressi ve disorder 64469439 Active 2023 Alicja Seibold null, [facility]. 4 12:09:25 Nontraum atic rotator cuff tear 733114490 Completed 202308/20/2023 EM BAUER MA null, [facility] 4 13:30:11 Nontraum atic rotator cuff tear 001663685 Active 2023 EM BAUER MA null, [facility] 4 13:30:11 Polyneur opathy 61006324 Active 2023 peripher al Alicja [facility], [facility] 4 12:09:51 Thoracic outlet syndrome 708767569 Active 2023 [facility], [facility] 12:09:55 History of malignan t neoplasm of skin 863319585 Active 2023 [facility], [facility] 12:09:33 Obstruct dedra sleep apnea syndrome 54276679 Active 2023 [facility], [facility] 12:09:41 Dyspnea 680173445 Active 2023 [facility], [facility] 12:09:30 Bilatera l cramp of muscle of lower limbs 0087415195 2582892 Active 2023 [facility], [facility] 12:09:23 Osteoart hritis 267462839 Active 2023 [facility], [facility] 12:09:43 Endometr ial carcinom a 273307980 Completed 202308/20/2023 EM BAUER MA null, [facility] 13:39:54 Diastoli c heart failure 055885997 Active 2023 [facility], [facility] 4 12:09:27 Basal cell carcinom a of skin 676266686 Active 2023 Alicja Valdez null, [facility] 4 12:09:20 Neoplasm of uncertai n behavior of skin 56686840 Active [address], [facility] [address], [facility] 4 10:23:42 Fatigue 26160076 Active [address], [facility] [address], [facility] 4 11:38:20 Chronic cough 84820265 Active [address], [facility] [address], [facility] 4 11:38:20 Aortic valve disorder 1877211 Active 2023 TOÑA HUBER MA null, [facility] 4 14:31:00 Subclini antonia hyperthy roidism 200578773 Active 2023 Deneen Fuentes RN null, [facility] 4 10:27:29 Foot pain 64329523 Active [address], [facility] [address], [facility] 4 13:30:03 Low back pain 680296432 Active [address], [place], [address], [facility] 4 11:54:46 Ankle pain 502083693 Active [address], [facility] [address], [facility] 4 11:55:12 Mammogra phy abnormal 036008293 Active 2023 JACQUELIN QUISPE [address], [place], [address], [facility] 4 11:57:09 Infectio n of skin 486325072 Active 2023 ROGER ARGUETA PA-C [address], [facility] [address], [facility] 14:11:49 Pain of right shoulder joint 4905910804 6484360 Active 2023 JACQUELIN QUISPE [address], [facility] [address], [facility] 14:14:57 Notes:Some problems listed i n Document: #[id number] could not be added to this patient's chart. Please review this document and add these problems to the patient's chart manually as needed. Problem Notes None recorded. Procedures Surgical History Date Name Laterality Status Provider Name and Address Organization Details Recorded Time 04/06/20 24 excision of melanoma completed EM BAUER MA [facility] 04/12/2024 14:49:16 06/27/20 22 endoscopic calcaneoplasty for Ora deformity completed EM BAUER MA [facility] 08/20/2023 13:51:40 12/29/19 20 mohs surgery completed EM BAUER MA [facility] 08/20/2023 14:03:48 02/23/20 18 Coronary artery bypass/reop completed EM BAUER MA [facility] 08/20/2023 13:52:47 10/02/19 17 cataract surgery completed EM BAUER MA [facility] 08/20/2023 14:02:07 09/17/19 17 Cataract Surgery completed EM BAUER MA [facility] 08/20/2023 14:02:47 11/16/19 13 total knee replacement completed EM BAUER MA [facility] 08/20/2023 13:45:27 03/15/20 total knee replacement completed EM BAUER MA [facility] 08/20/2023 13:44:56 open reduction of fracture of tibia and fibula completed EM BAUER MA [facility] 08/20/2023 13:47:29 procedure on elbow completed EM BAUER MA [facility] 08/20/2023 13:47:55 Appendectomy completed EM BAUER MA [facility] 08/20/2023 13:51:52 hysterectomy completed EM BAUER MA [facility] 08/20/2023 13:52:06 Imaging Results None recorded. Procedure Notes None recorded. Medical Equipment None Reported. Allergies Allergen ID Allergen Name Allergen Category Reaction Reaction Severity Criticality Documentation Date Start Date Code Code System Note Provider Name and Address Organization Details Recorded Time 60017 morphine medicatio n hallucina tions Not available Not available 08/20/2023 7052 RxNorm NATALIE BAUER MA [facility] 12:21:43 Medications Name Sig Start Date Stop [...] e 50 mcg/actua tion nasal spray,stephan pension Galt 1 spray every day by intranas al [...] Updated DateTime 4 144.14 cm 34.9 kg/m2 32528.7 8 g 97.7 [degF] 96 % 96 % 79 /min 16 /min 144 mm[Hg] 65 mm[Hg] Candelaria Hood [facility] 4 13:27:22 Social History Question Answer Notes LastModified by Organizat ion Details LastModified Time Tobacco Smoking Status Former Smoker 18 when she quit smoking JODI CUENCA, [facility] 08/18/2023 10:42:09 Do You Have An Advance Directive? No Paperwork Given Information not available 12/09/2023 When Did You Quit Smoking? 16+yearssince lastcigarette Information not available 08/18/2023 Date Of Most Recent HSA 12/09/2023 Information not available 12/09/2023 Would You Say That, In General, Your Health Is Fair [email or web address] Information not available 08/18/2023 How Often Does Anyone, Including Family, Physically Hurt You? Never [email or web address] Information not available 08/18/2023 How Often Does Anyone, Including Family, Insult Or Talk Down To You? Never Information not available 08/18/2023 How Often Does Anyone, Including Family, Threaten You With Harm? Never [email or web address] Information not available 08/18/2023 How Often Does Anyone, Including Family, Scream Or Curse At You? Never [email or web address] Information not available 08/18/2023 Within The Past [...] Getting Things Needed For Daily Living? No [email or web address] Information not available 08/18/2023 What Is Your Housing Situation Today? I Have Housing. [email or web address] Information not available 08/18/2023 How Often In The Past Year Have You Used Marijuana (including Smoking, Vaping, Dabbing, Or Edibles)? Never [email or web address] Information not available 08/18/2023 How Often In The Past Year Have You Used Prescription Medications That Were Not Prescribed To You? Never [email or web address] Information not available 08/18/2023 How Often In The Past Year Have You Taken Your Own Prescription Medication More Than The Way It Was Prescribed Or For Different Reasons Than Its Intended Purpose? Never [email or web address] Information not available 08/18/2023 How Often In The Past Year Have You Used Other Drugs (for Example, Heroin, Cocaine, Meth, Salvia, Inhalants)? Never [email or web address] Information not available 08/18/2023 What Matters Most To You? to Be Safe And Healthy, See And Walk Information not available 12/09/2023 During The Past Four Weeks, Was Someone Available To Help You If You Needed And Wanted Help? (For Example, If You [place] Very Nervous, Lonely, Or Blue; Got Sick [...] Do You Have A Medical Power Of Production Expediter? No Information not available 12/09/2023 What Was The Date Of Your Most Recent Tobacco Screening? 07/25/2024 [email or web address] Information not available 07/25/2024 At What Age Did You Start Smoking Tobacco? 16 [email or web address] Information not available 08/18/2023 Has Tobacco Cessation [...] Organization Details LastModified Time Mother Diastolic dysfunction [email or web address] Not available 07/28 13:53:44 Mother Congestive heart failure 68 [email or web address] Not available 2023 13:55:35 Brother Myocardial infarction [email or web address] Not available 08/20 13:54:51 Brother Family history of malignant neoplasm [email or web address] Not available 2023 14:47:47 Sister Family history of malignant neoplasm [email or web address] Not available 2023 14:47:47 Medical History No medical history recorded. Gynecological HistoryNo gynecological history recorded. Obstetrics History GPAL:G 0 P 0 0 0 0 Immunizations Vaccine Type Date Status Note Provider Nam e and Address Organization Details Recorded Time Td (adult), 2 Lf tetanus toxoid, preservative free, adsorbed 4 completed SACHIN RAMIREZ, CLAIMS ASSISTANT [address], [place], [address], [facility] 08/18/2023 22:14:59 Influenza, high-dose, trivalent, PF [address], [place], [address], [facility] 04/12/2024 21:01:41 SARS-COV-2 (COVID-19) vaccine, UNSPECIFIED 3 completed JODI CUENCA, [facility] 08/20/2023 12:15:28 SARS-COV-2 (COVID-19) vaccine, UNSPECIFIED 1 completed JODI CUENCA, [facility] 08/20/2023 12:15:34 SARS-COV-2 (COVID-19) vaccine, UNSPECIFIED 1 completed JODI CUENCA, [facility] 08/20/2023 12:15:49 SARS-COV-2 (COVID-19) vaccine, UNSPECIFIED 1 completed JODI CUENCA, [facility] 08/20/2023 12:15:55 SARS-COV-2 (COVID-19) vaccine, UNSPECIFIED 2 completed JODI CUENCA, [facility] 08/20/2023 12:16:04 Pneumococcal conjugate PCV 13 5 completed JODI CUENCA, [facility] 08/20/2023 12:16:40 influenza, unspecified formulation 0 completed JODI CUENCA, [facility] 08/20/2023 12:17:06 influenza, unspecified formulation 1 completed JODI CUENCA, [facility] 08/20/2023 12:17:14 influenza, unspecified formulation 2 completed JODI CUENCA, [facility] 08/20/2023 12:17:20 influenza, unspecified formulation 3 completed JODI CUENCA, [facility] 08/20/2023 12:17:30 pneumococcal polysaccharide PPV23 2 completed JODI CUENCA, [facility] 08/20/2023 12:18:00 pneumococcal polysaccharide PPV23 9 completed JODI CUENCA, [facility] 08/20/2023 12:18:09 Tdap 2 completed JODI CUENCA, [facility] 08/20/2023 12:18:41 zoster, unspecified formulation 9 completed JODI CUENCA, [facility] 08/20/2023 12:18:59 zoster, unspecified formulation 9 completed JODI CUENCA, [facility] 08/20/2023 12:19:04 zoster, unspecified formulation 2 completed JODI CUENCA, [facility] 08/20/2023 12:19:11 Past Encounters Encounter ID Performer Location Encounter Start Date Encounter Closed Date Diagnosis/Indication Diagnosis SNOMED-CT Code Diagnosis ICD10 Code [id number] ROGER ARGUETA PA-C [address] [address] 05/13/2024 10:54:11 05/13/2024 13:50:24 Infection of skin 662633977 L08.9 Health Concerns Section Related Observation LastModified by Organization Detai ls LastModified Time None Recorded Concern Status LastModified by Organization Details LastModified Time None Recorded Payers Encounter Date Sequence Insurance Name Policy Number Policy Kearns Covered Member ID Kearns Member ID Guarantor Name 05/13/2024 1 [id number]ANTAGE - [place]) [id number] Liya A Chago [id number] Liya A Chago 05/13/2024 2 [place] [facility] Liya A Chago [id number] Liya A Chago Notes Date Note Type Note Provider Name and Address Organization Details Recorded Time 05/13/2024 text/html Liya is a 78-year-old female who presents with concern for infection on the right side of her forehead. She had a basal cell carcinoma removed by Dr. Salinas at [facility] dermatology on 04/07. Had dissolvable sutures. Saw primary care on 04/12 look to be healing well. In the last week she has noticed this area has now become red, has not been painful. No history of MRSA. Has not had fevers. Has been applying vitamin E. [address], [place], [address], [facility]. 05/13/2024 14:11:58 OBGyn Episode No OBEpisode recorded.
--- OUTSIDE RECORDS SUMMARY | 2024-07-25 17:56 | XMS_ITS | Continuity of Care Document ---
Author Organization [facility], [facility] Address [address] [place] [address] Care Team Providers Care Adjunct Trainer Name Role Phone JACQUELINE ROCKWELL [employer] [facility] Gastroenterologi st KELLY STEVENSON [employer] [facility] Orthopedist [phone] [facility] Family Fl dicine ROSETTE PALOMINO Physical Therapist [phone] ALYSSA MONTEZ Sleep Medicine VIJI STEWART [employer] Assessment Encounter Date Assessment Date Assessment LastModified by Organization Details LastModified Time 07/25/2024 07/25/2024 The total time devoted to today's encounter, including both the nseo-sg-kpys time with the patient and/or family/caregi sameer and pym-rrtu-ag-f neha time I personally spent is 25 minutes in visit, 5 minutes prep, 5 minutes charting; total 35 minutes. [email or web address] Not available 07/25/2024 12:56:01 Plan of Treatment Reminders Order Date Submit Date Provider Last Modified By Organization Details Last Modified Time Details Appointments Follow Up 2023 10:20A M SACHIN JAMES Not available Not available Not available Acupunctu re 10 2024 10:30A M [facility] Not available Not available Not available Massage 30 2024 02:00P M [facility] Not available Not available Not available Reiki 2024 03:30P M [facility] Not available Not available Not available Follow Up 2024 11:30A M SACHIN JAMES Not available Not available Not available Lab BMP, serum or plasma 2023 [email or web address] [facility] (Registration ), [address] [place] [address] [place], [address], 07/25/2024 15:20:42 Referral physical therapist referral - chronic right hip and shoulder pain 2023 [facility], [place], [address], 07/25/2024 13:25:18 physical therapist referral - right hip and shoulder pain 2023 [facility], [place], [address], 07/25/2024 13:25:19 Procedures None recorded. Surgeries None recorded. Imaging CT, head, w/o contrast 2023 [facility] (Radiology), [address] [place] [address] [place], [address], 07/25/2024 14:25:18 Medication Orders simvastat in 20 mg tablet 2023 [facility], [address] [place], [address], 07/25/2024 10:17:49 potassium chloride ER 10 mEq capsule,e xtended release 2023 024 [facility], [address] [place], [address], 07/25/2024 12:56:06 Patient TargetsNo targets recorded. Patient Instructions Encounter Date Encounter Id Patient Instructions Last Modified By Organization Details Last Modified Time 07/25/2024 [id number] diet [email or web address] Not available 06/28 12:56:03 exercise [email or web address] Not available 07/25 12:56:03 Dear Liya, Thank you for visiting us today and for your dedication to improving your health. Here is a summary of the el instructions and recommendations from today's consultation: - Continue with Gabapentin 100 mg three times a day for neuropathy pain. - Renewed prescription for Simvastatin for cholesterol management. - Scheduled a Head CT scan without contrast at [facility] to address ongoing facial pain. - Referral to [facility] in [place] for both your right hip and right [...] step of the way. Best regards, Kristie [email or web address] Not available 07/25/2024 10:35:48 Reason for Referral Physical Therapist Referral for Pain in right hip joint chronic right hip and shoulder pain Referring Physician: Sachin [facility], Encounter Date: 07/25/2024 Physical Therapist Referral for Pain of right shoulder joint right hip and shoulder pain Referring Physician: [facility]in [facility], Encounter Date: 07/25/2024 Problems Name Problem SNOMED Code Status Onset Date Resolution Date Notes Provider Name and Address Organization Details Recorded Time Pain in face 71619974 Active [address], [place], [address], [place] [facility]. 21:06:12 Gastroes ophageal reflux disease without esophagi tis 302203083 Active [address], [place], [address], [facility], [facility]. 4 16:15:26 Pain in right hip joint 6455971051 45328 Active 2023 JACQUELIN QUISPE [address], [place], [address], [facility], [facility]. 4 10:25:34 Hypokale cheryl 57573553 Active [address], [place], [address], [facility], [facility]. 4 10:35:09 Hyperlip idemia 20656746 Active 2022 PERI DELEON COOK SOUP null, [facility], [facility]. 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 3 10:52:49 Essentia l hyperten maru 28974197 Active 2022 PERI DELEON, COOK SOUP null, [facility], [facility]. 3 10:48:19 Chronic diastoli c heart failure 620325702 Active 2022 PERI DELEON, COOK SOUP null, [facility], [facility]. 3 10:52:40 Arterios clerotic vascular disease 51275320 Active 2022 PERI DELEON, COOK SOUP null, [facility] 3 10:52:30 Right flank pain 326284741 Active 2022 Alicja Sekenishaold null, [facility] 4 12:10:01 Pain in right foot 3981186555 45948 Active 2022 Alicja Valdez null, [facility] 4 12:09:49 Obesity 609981602 Active 2023 Alicja Valdez null, [facility] 12:09:38 Depressi ve disorder 40439098 Active 2023 [facility], [facility] 4 12:09:25 Nontraum atic rotator cuff tear 269323980 Completed 202308/20/2023 EM BAUER MA null, [facility] 4 13:30:11 Nontraum atic rotator cuff tear 791705611 Active 2023 EM BAUER MA null, [facility] 4 13:30:11 Polyneur opathy 34381804 Active 2023 peripher al [facility], [facility] 4 12:09:51 Thoracic outlet syndrome 350180189 Active 2023 [facility] 12:09:55 History of malignan t neoplasm of skin 665375355 Active 2023 [facility], [facility] 4 12:09:33 Obstruct dedra sleep apnea syndrome 13817155 Active 2023 [facility], [facility] 12:09:41 Dyspnea 642957351 Active 2023 [facility], [facility]. 4 12:09:30 Bilatera l cramp of muscle of lower limbs 8968566913 5751992 Active 2023 [facility], [facility] 4 12:09:23 Osteoart hritis 527040702 Active 2023 [facility], [facility] 4 12:09:43 Endometr ial carcinom a 746921387 Completed 202308/20/2023 EM BAUER MA null, [facility] 4 13:39:54 Diastoli c heart failure 537778589 Active 2023 Alicja Valdez null, [facility] 4 12:09:27 Basal cell carcinom a of skin 228191868 Active 2023 Alicja Jackjoyce null, [facility] 4 12:09:20 Neoplasm of uncertai n behavior of skin 21244475 Active [address], [place], [address], [facility] 4 10:23:42 Fatigue 56067260 Active [address], [facility] [address], [facility] 4 11:38:20 Chronic cough 83496306 Active [address], [place], [address], [facility] 4 11:38:20 Aortic valve disorder 4816135 Active 2023 TOÑA HUBER MA null, [facility] 4 14:31:00 Subclini antonia hyperthy roidism 053869604 Active 2023 Deneen Fuentes RN null, [facility] 4 10:27:29 Foot pain 26116919 Active [address], [place], [address], [facility] 4 13:30:03 Low back pain 453261183 Active [address], [place], [address], [facility] 4 11:54:46 Ankle pain 705108666 Active [address], [place], [address], [facility] 11:55:12 Mammogra phy abnormal 180971715 Active 2023 JACQUELIN QUISPE [address], [place], [address], [facility] 11:57:09 Infectio n of skin 711299181 Active [address], [place], [address], [facility] 14:11:49 Pain of right shoulder joint 3465594824 7016266 Active [address], [place], [address], [facility] 14:14:57 Notes:Some problems listed i n Document: #[id number] could not be added to this patient's chart. Please review this document and add these problems to the patient's chart manually as needed. Problem Notes None recorded. Procedures Surgical History Date Name Laterality Status Provider Name and Address Organization Details Recorded Time 04/06/20 24 excision of melanoma completed EM BAUER MA [facility] 04/12/2024 14:49:16 06/27/20 22 endoscopic calcaneoplasty for Ora deformity completed EM BAUER MA [facility] 08/20/2023 13:51:40 12/29/19 20 mohs surgery completed EM BAUER MA [facility] 08/20/2023 14:03:48 02/23/20 18 Coronary artery bypass/reop completed EM BAUER MA [facility] 08/20/2023 13:52:47 10/02/19 17 cataract surgery completed EM BAUER MA [facility] 08/20/2023 14:02:07 09/17/19 17 Cataract Surgery completed EM BAUER MA [facility] 08/20/2023 14:02:47 11/16/19 13 total knee replacement completed EM BAUER MA [facility] 08/20/2023 13:45:27 03/15/20 12 total knee replacement completed EM BAUER MA [facility] 08/20/2023 13:44:56 open reduction of fracture of tibia and fibula completed EM BAUER MA [facility] 08/20/2023 13:47:29 procedure on elbow completed EM BAUER MA [facility] 08/20/2023 13:47:55 Appendectomy completed EM BAUER MA [facility] 08/20/2023 13:51:52 hysterectomy completed EM BAUER MA [facility] 08/20/2023 13:52:06 Imaging Results None recorded. Procedure Notes None recorded. Medical Equipment None Reported. Allergies Allergen ID Allergen Name Allergen Category Reaction Reaction Severity Criticality Documentation Date Start Date Code Code System Note Provider Name and Address Organization Details Recorded Time 29079 morphine medicatio n hallucina tions Not available Not available 08/20/2023 7052 RxNorm NATALIE BAUER MA [facility] 12:21:43 Medications Name Sig Start Date Stop [...] e 50 mcg/actua tion nasal spray,stephan pension [place] 1 spray every day by intranas al [...] Updated DateTime 4 144.14 cm 37.6 kg/m2 67753.8 9 g 97.3 [degF] 97 % 97 % 73 /min 124 mm[Hg] 72 mm[Hg] Haydee Miller [facility] 4 09:46:04 Social History Question Answer Notes LastModified by Organizat ion Details LastModified Time Tobacco Smoking Status Former Smoker 18 when she quit smoking JODI CUENCA, [facility] 08/18/2023 10:42:09 Do You Have An Advance Directive? No Paperwork Given Information not available 12/09/2023 When Did You Quit Smoking? 16+yearssince lastcigarette [email or web address] Information not available 08/18/2023 Date Of Most Recent HSA 12/09/2023 Information not available 12/09/2023 Would You Say That, In General, Your Health Is Fair [email or web address] Information not available 08/18/2023 How Often Does Anyone, Including Family, Physically Hurt You? Never [email or web address] Information not available 08/18/2023 How Often Does Anyone, Including Family, Insult Or Talk Down To You? Never Information not available 08/18/2023 How Often Does Anyone, Including Family, Threaten You With Harm? Never [email or web address] Information not available 08/18/2023 How Often Does Anyone, Including Family, Scream Or Curse At You? Never [email or web address] Information not available 08/18/2023 Within The Past 12 Months, You Worried That Your Food Would Run Out Before You Got Money To Buy More. Sometimes True Information not available 12/09/2023 Within The Past 12 Months, The Food You Bought Just Didn't Last And You Didn't Have Money To Get More. Never True [email or web address] Information not available 08/18/2023 How Hard Is It For You To Pay For The Very Basics Like Food, Housing, Medical Care, And Heating? Would You Say It Is: Not Hard At All Information not available 12/09/2023 In The Past 12 Months, Has Lack Of Reliable Transportation Kept You From Medical Appointments, Meetings, Work Or From Getting Things Needed For Daily Living? No [email or web address] Information not available 08/18/2023 What Is Your Housing Situation Today? I Have Housing. Information not available 08/18/2023 How Often In The Past Year Have You Used Marijuana (including Smoking, Vaping, Dabbing, Or Edibles)? Never [email or web address] Information not available 08/18/2023 How Often In The Past Year Have You Used Prescription Medications That Were Not Prescribed To You? Never [email or web address] Information not available 08/18/2023 How Often In The Past Year Have You Taken Your Own Prescription Medication More Than The Way It Was Prescribed Or For Different Reasons Than Its Intended Purpose? Never [email or web address] Information not available 08/18/2023 How Often In [...] And Wanted Help? (For Example, If You [place] Very Nervous, Lonely, Or Blue; Got Sick [...] Safety Concerns In Your Home (see Attached [facility] Pamphlet)? No Information not available 12/09/2023 [...] Do You Have A Medical Power Of Pouring Crane Operator? No Information not available 12/09/2023 What Was The Date Of Your Most Recent Tobacco Screening? 07/25/2024 [email or web address] Information not available 07/25/2024 At What Age Did You Start Smoking Tobacco? 16 [email or web address] Information not available 08/18/2023 Has Tobacco Cessation [...] Organization Details LastModified Time Mother Diastolic dysfunction [email or web address] Not available 07/28 13:53:44 Mother Congestive heart failure 68 Not available 2023 13:55:35 Brother Myocardial infarction [email or web address] Not available 08/20 13:54:51 Brother Family history of malignant neoplasm [email or web address] Not available 2023 14:47:47 Sister Family history of malignant neoplasm Not available 2023 14:47:47 Medical History No medical history recorded. Gynecological HistoryNo gynecological history recorded. Obstetrics History GPAL:G 0 P 0 0 0 0 Immunizations Vaccine Type Date Status Note Provider Nam e and Address Organization Details Recorded Time Td (adult), 2 Lf tetanus toxoid, preservative free, adsorbed 4 completed JACQUELIN QUISPE [address], [place], [address], [facility] 08/18/2023 22:14:59 Influenza, high-dose, trivalent, PF 4 completed JACQUELIN UQISPE [address], [place], [address], [facility] 04/12/2024 21:01:41 SARS-COV-2 (COVID-19) vaccine, UNSPECIFIED 3 completed JODI CUENCA, [facility] 08/20/2023 12:15:28 SARS-COV-2 (COVID-19) vaccine, UNSPECIFIED 1 completed JODI CUENCA, [facility] 08/20/2023 12:15:34 SARS-COV-2 (COVID-19) vaccine, UNSPECIFIED 1 completed JODI CUENCA, [facility] 08/20/2023 12:15:49 SARS-COV-2 (COVID-19) vaccine, UNSPECIFIED 1 completed JODI CUENCA, [facility] 08/20/2023 12:15:55 SARS-COV-2 (COVID-19) vaccine, UNSPECIFIED 2 completed JODI CUENCA, [facility] 08/20/2023 12:16:04 Pneumococcal conjugate PCV 13 5 completed JODI CUENCA, [facility] 08/20/2023 12:16:40 influenza, unspecified formulation 0 completed JODI CUENCA, [facility] 08/20/2023 12:17:06 influenza, unspecified formulation 1 completed JODI CUENCA, [facility] 08/20/2023 12:17:14 influenza, unspecified formulation 2 completed JODI CUENCA, [facility] 08/20/2023 12:17:20 influenza, unspecified formulation 3 completed JODI CUENCA, [facility] 08/20/2023 12:17:30 pneumococcal polysaccharide PPV23 2 completed JODI CUENCA, [facility] 08/20/2023 12:18:00 pneumococcal polysaccharide PPV23 9 completed JODI CUENCA, [facility] 08/20/2023 12:18:09 Tdap 2 completed JODI CUENCA, [facility] 08/20/2023 12:18:41 zoster, unspecified formulation 9 completed JODI CUENCA, [facility] 08/20/2023 12:18:59 zoster, unspecified formulation 9 completed JODI CUENCA, [facility] 08/20/2023 12:19:04 zoster, unspecified formulation 2 completed JODI CUENCA, [facility]. 08/20/2023 12:19:11 Past Encounters Encounter ID Performer Location Encounter Start Date Encounter Closed Date Diagnosis/Indication Diagnosis SNOMED-CT Code Diagnosis ICD10 Code [id number] JACQUELIN QUISPE [address] [address] 07/25/2024 09:29:15 07/25/2024 10:47:05 Hyperlipidemia 78395375 E78.5 Basal cell carcinoma of skin 863047578 C44.91 Obstructiv e sleep apnea syndrome 19158323 G47.33 Polyneuropathy 52188953 G62.9 Pain of ri ght shoulder joint 5878851493 5981148 M25.511 Pain in face 88232719 R5 1.9 Pain in ri ght hip joint 6764278053 24948 M25.551 Hypokalemia 60103259 E87 .6 Essential hypertension 01097535 I10 Obesity 767398582 E66.9 Health Concerns Section Related Observation LastModified by Organization Detai ls LastModified Time None Recorded Concern Status LastModified by Organization Details LastModified Time None Recorded Payers Encounter Date Sequence Insurance Name Policy Number Policy Kearns Covered Member ID Kearns Member ID Guarantor Name 07/25/2024 1 [id number]/A DVANTAGE - PPO) [id number] Liya Anders [id number] Liya Anders 07/25/2024 2 [facility] (MEDICAID) Liya Singh [place] [id number] Liya Anders Notes Date Note Type Note Provider Name and Address Organization Details Recorded Time 07/25/2024 text/html The patient, Marleny staples, presents [...] about her diet. Liya has seen an tooth cutter for her hearing and reports that it has improved after having her ear cleaned. She has also seen a inspector exhaust emissions for neuromas in both feet and has [...] date on her pneumonia vaccinations. SACHIN RAMIREZ, REFINISH TECHNICIAN [address], [place], [address], [facility]. 07/25/2024 12:56:09 OBGyn Episode No OBEpisode recorded.
--- OUTSIDE RECORDS SUMMARY | 2024-07-25 17:56 | XMS_ITS | Encounter Summary ---
Author Organization [facility] Address [address] [place] [address] Care Team Providers Care Computer Terminal Operator Name Role Phone Kenyon [facility] Primary Care Provider [phone] Reason for Visit * Reason Comments New Patient Visit Skin lesion, recheck spot on nose, few spots on face, spots on arms. Encounter Details Date Type Department Care Team (Late st Contact Info) Description 03/02/2024 13:40 EDT Office Visit [facility] D[facility]atology [address], [place], [place] [address] Cynthia Salinas MD [address] [facility], [facility] [address] [place] [address] History of basal cell carcinoma [...] discomfort. Tylenol, taken as directed by the global climate change analyst, will help relieve pain. If Tylenol does [...] choose to look at your results in Wikidata prior to our office contacting you, that is your right and choice. Our office policy is to have your provider or the provider???s dental laboratory assistant contact you with your results and [...] not call the office or send a GuardiCoret message asking to discuss them. Providers are seeing patients during the day and cannot answer calls during clinic time or off hours/weekends. Unless it is an emergency, the wildlife conservationist provider will not review biopsy and/ or lab results. Thank you for entrusting us with your care. [facility]- Dermatology WOUND CARE INSTRUCTIONS FOR CRYOSURGERY (FREEZING [...] Refills Last Filled Start Date End Date ketoconazole (NIZORAL) 2 % cream Apply topically [...] NOTE PATIENT: Liya Anders : MRN: [id number] SURGEON: Cynthia Salinas MD Informed consent was [...] and is in agreement with Mohs at [facility]. See order encounter for referral. documented in this encounter Plan of Treatment Upcoming Encounters Date Type Department Care Team (Late st Contact Info) Description 03/08/2025 11:00 EDT Office Visit [facility] Dermatology [address], [place] [address] Cynthia Salinas MD [address] [place] [address], [address] [place] [id number] 07/27/2025 Hospital Encounter [facility] [place] [address] [place], [place] [id number] Vicki Main MD [address] [facility], [address] [place] [address] Scheduled Procedures Name Priority Associated [...] explore management options, if applicable. 03/04/2024 9:16 [facility] Final Diagnosis A. SKIN OF FOREHEAD, RIGHT LATERAL, SHAVE BIOPSY: - Basal cell carcinoma, nodular type. - Basal cell carcinoma present at deep tissue edge. 03/04/2024 9:16 [facility] Attestation By the signature below, the attending physician certifies that they have 1) personally conducted a gross and/or microscopic examination of the described specimen(s), and/or personally interpreted the results of laboratory testing of the described specimen(s), and 2) personally rendered or confirmed the above diagnosis. 03/04/2024 9:16 [facility] at 0916 Microscopic Description [...] of the islands and stroma. 03/04/2024 9:16 EDT [facility] Clinical History [place] telangiectatic and hemorrhagic crusted low plaque; suspect BCC; clinical diagnosis code: D48.5 03/04/2024 9:16 EDT [facility] Gross Description A. Received in formalin labelled with proper patient identification (initials P, E) and right lateral forehead is a shave biopsy of white skin (0.6 x 0.4 x 0.1 cm). The skin surface displays an irregular dark brown crusted papule (0.4 x 0.1 cm). The margin is inked blue and the specimen is submitted intact in A1. Jen Manuelitolui 03/03/2024 11:04 03/04/2024 9:16 EDT [facility] Performing Lab [facility] 03/04/2024 9:16 T [facility] Scanned Images 03/04/2024 9:16 EDT [facility] Tissue SPECIMEN FROM SKIN / Unknown Collection, Other / Unknown 03/02/2024 13:58 EDT 03/02/2024 13:58 EDT us Cynthia Salinas MD PATHOLOGY ORDERABLES Mely carmona Result [facility] [address] [place] [address] documented in this encounter Visit Diagnoses Diagnosis History of basal cell carcinoma- Primary Personal history of other malignant neoplasm of skin Scar Scar condition and fibrosis of skin Solar purpura (HCC-CMS) Other nonthrombocytopenic purpuras Neoplasm of uncertain behavior of skin Intertrigo Other specified erythematous condition Actinic keratosis Multiple nevi Benign neoplasm of skin, site unspecified documented in this encounter Care Teams Computer Terminal Operator Relationship Specialty Start Date End Date Kenyon [facility] [address] [place] [address] PCP - General 10/30/23 documented as of this encounter
--- OUTSIDE RECORDS SUMMARY | 2024-07-25 17:56 | XMS_ITS | Encounter Summary ---
Author Organization [facility] Address [address] [place] [address] Care Team Providers Care Registered Nurse Maternal Child Name Role Phone [facility] Primary Care Provider [phone] Reason for Visit * Reason Onset Date Comments Surgery Cancellation 07/06/2024 Encounter Details Date Type Department Care Team (Late st Contact Info) Description 07/06/2024 Telephone [facility]- [address] [id number] Vicki Main MD [address] [place] [address], [address] [place] [phone] Surgery Cancellation Social History Tobacco Use Types Packs/Day Years [...] Gregorio Mendoza RN documented in this encounter Miscellaneous Notes * Telephone Encounter - Peg Coppola - 07/06/2024 1333 EST Spoke to Monet (daughter) cancelled surgery as patient BMI is not currently under 35 and that would be the requirement to proceed. Surgery on 08/16/[address] Main has been cancelled along with all post op appts. documented in this encounter Plan of Treatment Upcoming Encounters Date Type Department Care Team (Late st Contact Info) Description 03/08/2025 11:00 EDT Office Visit [facility] Dermatology [address] [facility], [place] [address] Cynthia Salinas MD [address] [place] [address], [address] [place] [address] 07/27/2025 Hospital Encounter [facility] OR [address] [place], [place] [id number] Vicki Main MD [address] [facility], [address] [place] [phone] Scheduled Procedures Name Priority Associated Diagnoses Date/Ti me INSERTION, CRANIAL NERVE STIMULATOR CINTHIA (obstructive sleep apnea) documented as of this encounter Visit Diagnoses Not on filedocumented in this encounter Care Teams Registered Nurse Maternal Child Relationship Specialty Start Date End Date [facility] [address] [place] [address] PCP - General 10/30/23 documented as of this encounter
--- OUTSIDE RECORDS SUMMARY | 2024-07-25 17:56 | XMS_ITS | Encounter Summary ---
Author Organization [facility] Address [address] [place] [address] Care Team Providers Care Die Designer Name Role Phone [facility] Primary Care Provider [phone] Reason for Visit * Auth/Cert (Routine) Specialty Diagnoses / Procedures Referred By Contac t Referred To Contact Diagnoses CINTHIA (obstructive sleep apnea) Procedures DC DISE DYN EVAL SLEEP DISORDERED BREATHING FLX DX DRUG-INDUCED SLEEP ENDOSCOPY Referral ID Status Reason Start Date Expiration Date Visits Re quested Visits Authorized [id number] 1 1 Encounter Details Date Type Department Care Team (Late st Contact Info) Description 06/14/2024 7:37 EST Anesthesia Event [facility] OR [address] [place], [place] [id number] Jak Ragland MD [address] [facility] 2 [place] [address] Jorge Bennett DO [address] [place], [place] [id number] Anesthesia Record Procedure Summary Procedure Name Responsible Anesthesiologist Anesthesia Start Time Anesthesia Stop Time DRUG-INDUCED SLEEP ENDOSCOPY (Throat) Jak Ragland MD 06/14/24 0737 06/14/24 0759 Events Date Time Event Comment 06/14/2024 0737 An Start The patient was re-evaluated immediately before moderate or deep sedation use, before anesthesia induction, or before the anesthesia procedure. 0737 An Start Data 0739 Anesthesia Ready 0759 Handoff to RN I completed my handoff to the receiving nurse during which we: 1. Identified the patient 2. Identified the responsible provider 3. Reviewed the pertinent medical history 4. Discussed the surgical course 5. Reviewed intra-op anesthesia management and issues during anesthesia 6. Set expectations for post-procedure period 7. Allowed opportunity for questions and acknowledgement of understanding. 0759 An Stop 0801 an stop data Meds Name Total propOFol (DIPRIVAN) injection 109,450 mc g lactated ringers (LR) infusion 100 mL * Agents Name O2 N2O Air * Blood No blood administrations on file. Lines, Drains, and Airways Type Details Placement Removal Peripheral IV 06/14/24; 0700; 20; 1.25; Distal, Left, Posterior; Forearm; Inserted by RN (Sharri Sotelo RN); 1; None; Chlorhexidine; 06/14/24; 0915; Therapy completed; No complications 06/14/24 0700 by Jonelle Aldana RN 06/14/24 0915 by Abigail Thompson RN documented in this encounter Social History Tobacco [...] Gregorio Lockwood RN documented in this encounter OR Notes * Anesthesia Postprocedure Evaluation - Jorge Bennett DO - 06/14/2024 0800 EST Patient: Liya Anders Last Pain Score - Numeric Pain Level (Scale 1-10): 0 Type of Anesthesia - MAC Anesthesia Post Evaluation Post-procedure vitals reviewed and are stable. Level of consciousness: awake Temperature status: normothermia and patient returned to pre-procedure baseline Respiratory status: airway patent, stable and nasal cannula Cardiovascular status: stable and acceptable Hydration status: adequate Nausea/Vomiting: none Pain management: adequate Post-Op Assessment: patient tolerated procedure well with no complications Patient participation: able to participate Disposition: outpatient/home Anesthesia Complications: No apparent anesthesia complications * Anesthesia Preprocedure Evaluation - Jorge Bennett DO - 06/13/2024 1512 EST Anesthesia Preprocedure Evaluation Patient Medical History, including Anesthesia History reviewed. Chart and Nursing Notes reviewed, including NPO status and Medication History. Additional ROS/History Findings: Liya Anders is a 78 y.o. female presenting for below. PMHx significant for CINTHIA (did not tolerateCPAP), CAD, HLD, GERD, HTN, former smoker, slow to wake up from anesthesia in the past. Planned procedure: Drug induced sleep endoscopy Diagnosis: CINTHIA Surgeon: Dr. Main Weight: 71 Kg Allergies: Morphine Prior anesthesia history: 02/22/18: GA for AVR, two handed mask with oral airway, light wand for intubation, no complications No current facility-administered medications for this encounter. Current Outpatient Medications Medication acetaminophen (TYLENOL) 500 mg tablet ascorbic acid, vitamin C, (VITAMIN C) 500 mg tablet aspirin chewable 81 mg tablet calcium carbonate (TUMS) 200 mg calcium (500 mg) tablet,chewable calcium/magnesium (CALCIUM AND MAGNESIUM ORAL) cephalexin (KEFLEX) 500 mg capsule chloroquine (ARALEN) 250 mg tablet cholecalciferol, vitamin D3, (VITAMIN D3 ORAL) chrm/vineg/bit-orang peel/gr t (APPLE CIDER VINEGAR PLUS ORAL) cyanocobalamin (VITAMIN B-12) 100 mcg tablet dilTIAZem (CARDIZEM) 30 mg tablet diphenhydrAMINE (BENADRYL) 25 mg capsule diphenhydramine HCl (UNISOM, DIPHENHYDRAMINE, ORAL) docusate sodium (COLACE) 100 mg capsule furosemide (LASIX) 20 mg tablet gabapentin (NEURONTIN) 100 mg capsule guaiFENesin (MUCINEX) 600 mg SR tablet ketoconazole (NIZORAL) 2 % cream krill oil 500 mg capsule levothyroxine (SYNTHROID) 100 mcg tablet lisinopriL (PRINIVIL) 20 mg tablet melatonin 10 mg tablet,chewable metoprolol (LOPRESSOR) 50 mg tablet omeprazole (PRILOSEC) 40 mg capsule potassium chloride (MICRO-K) 10 mEq capsule sertraline (ZOLOFT) 100 mg tablet simvastatin (ZOCOR) 20 mg tablet traMADol (ULTRAM) 50 mg tablet triamcinolone (KENALOG) 0.1 % cream UNABLE TO FIND UNABLE TO FIND UNABLE TO FIND Zinc Acetate, Oral, 50 mg (zinc) capsule Past Surgical History: Procedure Laterality Date COLONOSCOPY SHAWNEE AND BSO age 27 TOTAL KNEE ARTHROPLASTY Bilateral WRIST SURGERY Left Cardiac Studies: 01/19/18: L heart Cath 1. HPI and indications: Aortic stenosis. 2. Coronary arteries: Left subclavian angio for pre-CABG evaluation shows a large WALTERS. 3. LAD: Mid-vessel lesion: There is an 80% stenosis. 4. Right coronary: Mid-vessel lesion: There is a 50% stenosis. 5. Left internal mammary: Normal, well visualized. Normal-sized vessel. Labs: Covid-19: No results found for: COVIDUV CBC: Lab Results Component Value Date WBC 10.40 04/14/2018 Hemoglobin 13.9 04/14/2018 HCT 41.4 04/14/2018 PLT 178 04/14/2018 BMP: Lab Results Component Value Date Sodium 142 04/14/2018 Potassium 4.1 04/14/2018 Chloride 103 04/14/2018 CO2 31 04/14/2018 BUN 20 04/14/2018 Creatinine 0.71 04/14/2018 Glucose, I-STAT 136 (H) 02/22/2018 HBA1C: Lab Results Component Value Date Hemoglobin A1C 5.5 02/22/2018 Coags: Lab Results Component Value Date Pro Time 13.6 (H) 02/24/2018 PTT 27 02/24/2018 I.N.R. 1.2 (H) 02/24/2018 Allergies Allergen Reactions Anesthesia S/I-40 (Propofol) [Propofol] PT WITH GREAT DIFFICULTY WAKING UP POST ANESTHESIA Morphine Other (See Comments) hallucinations Other - See Comments Environmental Review of Systems Constitutional: Negative for chills and fever. HENT: Negative for congestion and sore throat. Respiratory: Negative for cough and shortness of breath. Cardiovascular: Negative for chest pain and palpitations. Gastrointestinal: Negative for heartburn, nausea and vomiting. Musculoskeletal: Negative for neck pain. Neurological: Negative for headaches. Past Medical History: Diagnosis Date Activity, other involving cardiorespiratory exercise Noted 06/07/2024: swimming, shaker, walking, doesnt climb stairs Aortic stenosis Noted 06/07/2024: s/p surgery Aortic valve disease Noted 06/07/2024: s/p surgery Arthritis Noted 06/07/2024: generalized Bleeds easily (HCC-CMS) Noted 06/07/2024: Bruises easily Noted 06/07/2024: Chest pain Noted 06/07/2024: not in a couple of weeks CHF (congestive heart failure) (HCC-CMS) Noted 06/07/2024: tx w/ meds,ECHO 11/23/17 tobin: 1) mild LVH, 2) EF 65%, 3) mild AI, 4) moderate to severe with AVarea 1.0 cm2, mean gradient 35 mm Hg Claustrophobia Noted 06/07/2024: closed in spaces Cognitive deficits Noted 06/07/2024: meds, and time Constipation Noted 06/07/2024: tx w/ stool softner Depression Noted 06/07/2024: controlled at present time Endometrial cancer (HCC-CMS) Noted 06/07/2024: GERD (gastroesophageal reflux disease) Noted 06/07/2024: controlled w/ meds, can lay flat but doesnt like too Hearing loss Noted 06/07/2024: bilateral hearing aids, still [place] [employer] History of general anesthesia Noted 06/07/2024: Hyperlipidemia Noted 06/07/2024: tx w/ meds Hypertension Noted 06/07/2024: tx w/ meds Hypothyroid Noted 06/07/2024: tx w/ meds Lightheadedness Noted 06/07/2024: ocassionally CINTHIA (obstructive sleep apnea) Noted 06/07/2024: no CPAP Peripheral neuropathy Noted 06/07/2024: feet Shortness of breath Noted 06/07/2024: lugo Wears dentures Noted 06/07/2024: full set Wears glasses Noted 06/07/2024: Patient Active Problem List Diagnosis Nonrheumatic aortic valve stenosis 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 Anesthesia plan and risks discussed. Informed consent obtained from patient. Specific risks discussed were myocardial infarction, stroke, nausea, vomiting, headache and dental injury (serious life threatening complications). Code status discussed? No The preoperative history and physical which was performed within 30 days of this procedure, has been reviewed and the clinically appropriate elements of the physical examination have been repeated. There are no changes to the documented history and physical or, if so, such changes are documented inthis note PAT Note Notes from 05/14/24 through 06/13/24 No notes of this type exist for this encounter. documented in this encounter Plan of Treatment Upcoming Encounters Date Type Department Care Team (Late st Contact Info) Description 03/08/2025 11:00 EDT Office Visit [facility] Dermatology [address] [place] [address], [place] [address] Cynthia Salinas MD [address] [facility], [address] [place] [address] 07/27/2025 Hospital Encounter [facility] OR [address] [place] [id number] Vicki Main MD [address] [facility], [address] [place] [address] Scheduled Procedures Name Priority Associated Diagnoses Date/Ti me INSERTION, CRANIAL NERVE STIMULATOR CINTHIA (obstructive sleep apnea) documented as of this encounter Visit Diagnoses Not on filedocumented in this encounter Administered Medications Inactive Administered Medications - up to 3 most recent administrations Medication Order MAR Action Action Date Dose Rate Site lactated ringers (LR) infusion at 75 mL/hr, intravenous, CONTINUOUS, Starting on Thu06/14/24 at 0745, Until Thu06/14/24 at 1135, Routine Rate Change 06/14/2024 7:39 EST 25 mL/hr Continued by Anesthesia 06/14/2024 7:37 EST 75 mL/hr New Bag 06/14/2024 7:15 EST 75 mL/hr propOFol (DIPRIVAN) injection intravenous, FA IP EQF CONTINUOUS PRN FOR ONE STEP MEDS, Starting on Thu06/14/24 at 0737, Until Thu06/14/24 at 0759, Routine, Anesthesia Intraprocedure Rate Change 06/14/2024 7:43 EST 50 mcg/kg/min 22.95 mL/hr Given 06/14/2024 7:38 EST 10 mg New Bag 06/14/2024 7:37 EST 150 mcg/kg/min 68.85 mL/hr documented in this encounter Care Teams Die Designer Relationship Specialty Start Date End Date [facility] [address] [place] [address] PCP - General 10/30/23 documented as of this encounter
--- OUTSIDE RECORDS SUMMARY | 2024-07-25 17:56 | XMS_ITS | Continuity of Care Document ---
Author Organization [facility], [facility] Address [address] [place] [address] Care Team Providers Care Asset Protection Detective Name Role Phone JACQUELINE ROCKWELL [employer] Librarian [facility] Gastroenterologi st KELLY STEVENSON Protein Chemist [facility] Orthopedist [phone] [facility] dicine ROSETTE PALOMINO Physical Therapist [phone] ALYSSA MONTEZ Sleep Medicine VIJI STEWART [employer] Librarian Assessment Encounter Date Assessment Date Assessment LastModified by Organization Details LastModified Time 06/01/2024 06/01/2024 Patient here for pre-op eval [...] based on the Revised Cardiac Risk Index. [email or web address] Not available 06/01/2024 21:28:03 Plan of Treatment Reminders Order Date Submit Date Provider Last Modified By Organization Details Last Modified Time Details Appointments Follow Up 30 2023 10:20A M SACHIN JAMES Not available Not available Not available Acupunctu re 10 2024 10:30A M [facility] Not available Not available Not available Massage 30 2024 02:00P M [facility] Not available Not available Not available Reiki 2024 03:30P M [facility] Not available Not available Not available Follow Up 2024 11:30A M SACHIN JAMES Not available Not available Not available Lab None recorded. Referral None recorded. Procedures None recorded. Surgeries None recorded. Imaging None recorded. Medication Orders omeprazol e 40 mg capsule,d elayed release 2023 024 [facility], [address] [place], [address], 06/01/2024 16:16:22 Patient TargetsNo targets recorded. Patient InstructionsNo instructions recorded. Reason for Referral None Reported. Results Created Date Observation Date Name Description Value Unit Range Abnormal Flag Note LastModifiedBy Organization Detail LastModifiedTime 06/03/20 24 06/02/2024 trans -thor acic echoc ardio gram (TTE) (PROC ) No observ ation record ed. [email or web address] Not Available 06/03 11:05:57 Result Notes None recorded. Problems Name Problem SNOMED Code Status Onset Date Resolution Date Notes Provider Name and Address Organization Details Recorded Time Pain in face 85993848 Active [address], [place], [address], [facility] 21:06:12 Gastroes ophageal reflux disease without esophagi tis 687984819 Active [address], [place], [address], [facility] 16:15:26 Pain in right hip joint 2780932230 00601 Active [address], [place], [address], [facility] 10:25:34 Hypokale cheryl 35169430 Active 2023 JACQUELIN QUISPE [address], [place], [address], [facility], [facility]. 4 10:35:09 Hyperlip idemia 52165814 Active 2022 PERI ADRIENNE, RECRUITMENT ADVERTISING MANAGER null, [facility]. 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 3 10:52:49 Essentia l hyperten maru 85844297 Active 2022 PERI ADRIENNE, RECRUITMENT ADVERTISING MANAGER null, [facility] 3 10:48:19 Chronic diastoli c heart failure 624408094 Active 2022 PERI ADRIENNE, RECRUITMENT ADVERTISING MANAGER null, [facility]. 3 10:52:40 Arterios clerotic vascular disease 28749584 Active 2022 PERI ADRIENNE, RECRUITMENT ADVERTISING MANAGER null, [facility]. 3 10:52:30 Right flank pain 400458777 Active 2022 Alicjaher Valdez null, [facility]. 4 12:10:01 Pain in right foot 1431117515 23649 Active 2022 Alicja kenishanavneet null, [facility]. 4 12:09:49 Obesity 792189525 Active 2023 Alicja kenishanavneet null, [facility], [facility]. 4 12:09:38 Depressi ve disorder 82507564 Active 2023 [facility] null, [facility]. 4 12:09:25 Nontraum atic rotator cuff tear 878404140 Completed 202308/20/2023 EM BAUER MA null, [facility] 4 13:30:11 Nontraum atic rotator cuff tear 002088799 Active 2023 EM BAUER MA null, [facility] 4 13:30:11 Polyneur opathy 38682992 Active 2023 peripher al [facility] 4 12:09:51 Thoracic outlet syndrome 920025523 Active 2023 [facility] 4 12:09:55 History of malignan t neoplasm of skin 236276473 Active 2023 [facility] 4 12:09:33 Obstruct dedra sleep apnea syndrome 01678847 Active 2023 [facility] 4 12:09:41 Dyspnea 989950632 Active 2023 [facility] 4 12:09:30 Bilatera l cramp of muscle of lower limbs 7011698197 9105196 Active 2023 [facility] 4 12:09:23 Osteoart hritis 894092174 Active 2023 [facility] 4 12:09:43 Endometr ial carcinom a 039981904 Completed 202308/20/2023 EM BAUER MA null, [facility] 4 13:39:54 Diastoli c heart failure 557975387 Active 2023 [facility] 4 12:09:27 Basal cell carcinom a of skin 176145085 Active 2023 [facility] 4 12:09:20 Neoplasm of uncertai n behavior of skin 40218076 Active [address], [place], [address], [facility] 4 10:23:42 Fatigue 61444143 Active [address], [facility] [address], [facility] 4 11:38:20 Chronic cough 74185403 Active [address], [facility] [address], [facility] 4 11:38:20 Aortic valve disorder 2320672 Active 2023 TOÑA HUBER MA null, [facility] 4 14:31:00 Subclini antonia hyperthy roidism 143745663 Active 2023 Deneen Fuentes RN null, [facility] 4 10:27:29 Foot pain 24532199 Active 2023 SACHINSHELL RAMIREZ PLASTIC PANEL INSTALLERElio [address], [facility] [address], [facility] 4 13:30:03 Low back pain 479367344 Active [address], [place], [address], [facility] 4 11:54:46 Ankle pain 495864437 Active [address], [facility] [address], [facility] 4 11:55:12 Mammogra phy abnormal 627788145 Active [address], [place], [address], [facility] 4 11:57:09 Infectio n of skin 672102243 Active 2023 ROGER ARGUETA PA-C [address], [place], [address], [facility] 14:11:49 Pain of right shoulder joint 5373892189 3870090 Active 2023 JACQUELIN QUISPE [address], [place], [address], [facility] 14:14:57 Notes:Some problems listed i n Document: #[id number] could not be added to this patient's chart. Please review this document and add these problems to the patient's chart manually as needed. Problem Notes None recorded. Procedures Surgical History Date Name Laterality Status Provider Name and Address Organization Details Recorded Time 04/06/20 24 excision of melanoma completed EM BAUER MA [facility] 04/12/2024 14:49:16 06/27/20 22 endoscopic calcaneoplasty for Ora deformity completed EM BAUER MA [facility] 08/20/2023 13:51:40 12/29/19 20 mohs surgery completed EM BAUER MA [facility] 08/20/2023 14:03:48 02/23/20 18 Coronary artery bypass/reop completed EM BAUER MA [facility] 08/20/2023 13:52:47 10/02/19 17 cataract surgery completed EM BAUER MA [facility] 08/20/2023 14:02:07 09/17/19 17 Cataract Surgery completed EM BAUER MA [facility] 08/20/2023 14:02:47 11/16/19 13 total knee replacement completed EM BAUER MA [facility] 08/20/2023 13:45:27 03/15/20 12 total knee replacement completed EM BAUER MA [facility] 08/20/2023 13:44:56 open reduction of fracture of tibia and fibula completed EM BAUER MA [facility] 08/20/2023 13:47:29 procedure on elbow completed EM BAUER MA [facility] 08/20/2023 13:47:55 Appendectomy completed EM BAUER MA [facility] 08/20/2023 13:51:52 hysterectomy completed EM BAUER MA [facility] 08/20/2023 13:52:06 Imaging Results None recorded. Procedure Notes None recorded. Medical Equipment None Reported. Allergies Allergen ID Allergen Name Allergen Category Reaction Reaction Severity Criticality Documentation Date Start Date Code Code System Note Provider Name and Address Organization Details Recorded Time 90302 morphine medicatio n hallucina tions Not available Not available 08/20/2023 7052 RxNorm NATALIE BAUER MA [facility], [facility] 12:21:43 Medications Name Sig Start [...] e 50 mcg/actua tion nasal spray,stephan pension [place] 1 spray every day by intranas al [...] % 76 /min 97.7 [degF] 36.9 kg/m2 79660.8 3 g 126 mm[Hg] 76 mm[Hg] Haydee Miller [facility] 4 15:57:18 Social History Question Answer Notes LastModified by Organizat ion Details LastModified Time Tobacco Smoking Status Former Smoker 18 when she quit smoking JODI CUENCA, [facility] 08/18/2023 10:42:09 Do You Have An Advance Directive? No Paperwork Given Information not available 12/09/2023 When Did You Quit Smoking? 16+yearssince lastcigarette [email or web address] Information not available 08/18/2023 Date Of Most Recent HSA 12/09/2023 Information not available 12/09/2023 Would You Say That, In General, Your Health Is Fair Information not available 08/18/2023 How Often Does Anyone, Including Family, Physically Hurt You? Never [email or web address] Information not available 08/18/2023 How Often Does Anyone, Including Family, Insult Or Talk Down To You? Never [email or web address] Information not available 08/18/2023 How Often Does Anyone, Including Family, Threaten You With Harm? Never [email or web address] Information not available 08/18/2023 How Often Does Anyone, Including Family, Scream Or Curse At You? Never [email or web address] Information not available 08/18/2023 Within The Past [...] Getting Things Needed For Daily Living? No [email or web address] Information not available 08/18/2023 What Is Your Housing Situation Today? I Have Housing. [email or web address] Information not available 08/18/2023 How Often In The Past Year Have You Used Marijuana (including Smoking, Vaping, Dabbing, Or Edibles)? Never [email or web address] Information not available 08/18/2023 How Often In The Past Year Have You Used Prescription Medications That Were Not Prescribed To You? Never [email or web address] Information not available 08/18/2023 How Often In The Past Year Have You Taken Your Own Prescription Medication More Than The Way It Was Prescribed Or For Different Reasons Than Its Intended Purpose? Never [email or web address] Information not available 08/18/2023 How Often In The Past Year Have You Used Other Drugs (for Example, Heroin, Cocaine, Meth, Salvia, Inhalants)? Never [email or web address] Information not available 08/18/2023 What Matters Most To You? to Be Safe And Healthy, See And Walk Information not available 12/09/2023 During The Past Four Weeks, Was Someone Available To Help You If You Needed And Wanted Help? (For Example, If You [place] Very Nervous, Lonely, Or Blue; Got Sick [...] Do You Have A Medical Power Of Ornamental Machine Operator? No Information not available 12/09/2023 What Was The Date Of Your Most Recent Tobacco Screening? 07/25/2024 [email or web address] Information not available 07/25/2024 At What Age Did You Start Smoking Tobacco? 16 [email or web address] Information not available 08/18/2023 Has Tobacco Cessation [...] Organization Details LastModified Time Mother Diastolic dysfunction [email or web address] Not available 07/28 13:53:44 Mother Congestive heart failure 68 [email or web address] Not available 2023 13:55:35 Brother Myocardial infarction [email or web address] Not available 08/20 13:54:51 Brother Family history of malignant neoplasm [email or web address] Not available 2023 14:47:47 Sister Family history of malignant neoplasm [email or web address] Not available 2023 14:47:47 Medical History No medical history recorded. Gynecological HistoryNo gynecological history recorded. Obstetrics History GPAL:G 0 P 0 0 0 0 Immunizations Vaccine Type Date Status Note Provider Nam e and Address Organization Details Recorded Time Td (adult), 2 Lf tetanus toxoid, preservative free, adsorbed 4 completed SACHIN RAMIREZ, JACQUELIN [address], [place], [address], [facility] 08/18/2023 22:14:59 Influenza, high-dose, trivalent, PF 4 completed JACQUELIN QUISPE [address], [place], [address], [facility] 04/12/2024 21:01:41 SARS-COV-2 (COVID-19) vaccine, UNSPECIFIED 3 completed JODI CUENCA, [facility] 08/20/2023 12:15:28 SARS-COV-2 (COVID-19) vaccine, UNSPECIFIED 1 completed JODI CUENCA, [facility] 08/20/2023 12:15:34 SARS-COV-2 (COVID-19) vaccine, UNSPECIFIED 1 [facility] 12:15:49 SARS-COV-2 (COVID-19) vaccine, UNSPECIFIED 1 completed JODI CUENCA, [facility] 08/20/2023 12:15:55 SARS-COV-2 (COVID-19) vaccine, UNSPECIFIED 2 completed JODI CUENCA, [facility] 08/20/2023 12:16:04 Pneumococcal conjugate PCV 13 5 completed JODI CUENCA, [facility] 08/20/2023 12:16:40 influenza, unspecified formulation 0 completed JODI CUENCA, [facility] 08/20/2023 12:17:06 influenza, unspecified formulation 1 completed JODI CUENCA, [facility] 08/20/2023 12:17:14 influenza, unspecified formulation 2 completed JODI CUENCA, [facility] 08/20/2023 12:17:20 influenza, unspecified formulation 3 completed JODI CUENCA, [facility] 08/20/2023 12:17:30 pneumococcal polysaccharide PPV23 2 completed JODI CUENCA, [facility] 08/20/2023 12:18:00 pneumococcal polysaccharide PPV23 9 completed JODI CUENCA, [facility] 08/20/2023 12:18:09 Tdap 2 completed JODI CUENCA, [facility] 08/20/2023 12:18:41 zoster, unspecified formulation 9 completed JODI CUENCA, [facility] 08/20/2023 12:18:59 zoster, unspecified formulation 9 completed JODI CUENCA, [facility] 08/20/2023 12:19:04 zoster, unspecified formulation 2 completed JODI CUENCA, [facility] 08/20/2023 12:19:11 Past Encounters Encounter ID Performer Location Encounter Start Date Encounter Closed Date Diagnosis/Indication Diagnosis SNOMED-CT Code Diagnosis ICD10 Code [id number] ROGER ARGUETA PA-C [address] [address] 05/13/2024 10:54:11 05/13/2024 13:50:24 Infection of skin 633448566 L08.[id number] [address] 05/25/2024 13:28:48 05/25/2024 14:28:28 Pain of right shoulder joint 1145487900 2716378 M25.511 Obstructiv e sleep apnea syndrome 55890938 G47.33 Pain in face 70143866 R5 1.[id number] [address] 06/01/2024 15:42:09 06/02/2024 04:34:12 Gastroesophageal reflux disease without esophagitis 112237142 K21.9 Health Concerns Section Related Observation LastModified by Organization Detai ls LastModified Time None Recorded Concern Status LastModified by Organization Details LastModified Time None Recorded Payers Encounter Date Sequence Insurance Name Policy Number Policy Kearns Covered Member ID Kearns Member ID Guarantor Name 06/01/2024 1 [id number]MED[place]ANTAGE - PPO) [id number] Liya Francisco Chago [id number] Liya Francisco Chago 06/01/2024 2 [place]: [employer] Liya Francisco Chago [id number] Liya A Chago Notes Date Note Type Note Provider Name and Address Organization Details Recorded Time 06/01/2024 text/html 78-year-old andriy imller presents to clinic today for preoperative clearance for upcoming evaluation for Inspire device to treat sleep apnea. Patient is a poor historian. Daughter is accompanying her today to assist with any questions. Surgery: 06/07/2024 initial evaluation to be completed at [facility]. -Bio prosthetic AVR and CABG 2018-Congestive heart failure with mildly elevated BNP since 2018, treated with daily diuretic-Hypertens ion-Morbid obesityNO h/o stroke/TIANO h/o DM on insulinCr <2.0 Fx Status: -EtOH- several drinks every other week-Illicits/toba smoking tobacco packer hand: none-anticoag/ASA/ steroids/nsaids: low dose ASA H/O surgical complications: No -no h/o bleeding d/o-no fhx of bleeding d/o-no allergies to iodine/latex SACHIN JAMES, PLASTIC PANEL INSTALLER [address], [place], [address], [place] [facility]. 06/01/2024 21:28:50 OBGyn Episode No OBEpisode recorded.
--- OUTSIDE RECORDS SUMMARY | 2024-07-25 17:56 | XMS_ITS | Referral Summary ---
Author Organization [facility] Address [address] [place] [address] Care Team Providers Care Skeiner Name Role Phone [facility] Primary Care Provider [phone] Encounters Date Type Department Care Team Description 07/06/[address] [phone] Vicki Main MD Surgery Cancellation 06/20/2024 16:30 EST Post-op Visit [address] [id number] Vicki Main MD CINTHIA (obstructive sleep apnea) (Primary Dx) 06/14/2024 7:25 EST - 06/14/2024 8:05 EST Surgery [facility] OR [address] [place] [id number] Vicki Main MD DRUG-INDUCED SLEEP ENDOSCOPY [[id number] (CPT??)] 06/14/2024 7:37 EST Anesthesia Event [facility] OR [address] [place] [address] [id number] Jak Ragland MD Dwosh, Ryan, DO 06/14/2024 5:40 EST - 06/14/2024 9:30 EST Hospital Encounter [facility] OR [address] [place] [address] [id number] Vicki Main MD Discharge Disposition: Home or Self Care 06/13/[address] [address] Vicki Main MD Discuss Surgery 06/07/2024 15:20 EST - 06/07/2024 16:37 EST Hospital Encounter [facility] Pre-Surgical Testing [address] [place] [address] 05/16/2024 15:30 EDT [facility] [place] [address] [place] [address] Vicki Main MD CINTHIA (obstructive sleep apnea) (Primary Dx) from Last 3 Months Allergies Active Allergy [...] Active UNABLE TO FIND daily. Med Name: unamia Active Active Problems Patient Care Coordination No te Formatting of this note migh t be different from the original. Patient has given permission for [facility] to verbally discuss the following information with Malena Vu [phone] who has the following relationship to the [...] stenosis 02/22/2018 Coronary artery disease invo lving [place] heart with angina pectoris ([facility]) 02/22/2018 Social History Tobacco Use Types Packs/Day [...] Body Mass Index 36.5 06/07/2024 1536 EST Functional Status * Are you deaf or [...] Date of Assessment Author No 04/14/2018 10:58 CARMITAT Gregorio Mendoza RN Mental Status * Because of a physical, mental, or emotional condition, does this person have serious difficulty concentrating, remembering, or making decisions? Answer Entry Date Author No 04/14/2018 10:58 Gregorio Lockwood RN Plan of Treatment Upcoming Encounters Date Type Department Care Team (Late st Contact Info) Description 03/08/2025 11:00 EDT Office Visit [facility] Dermatology [address] [place] [address] Cynthia Salinas MD [address] [place] [phone] 07/27/2025 Hospital Encounter [facility] [place] [address] [place] [phone] Vicki Main MD [address] [place] [address] [address] [place] [phone] Scheduled Procedures Name Priority Associated Diagnoses Date/Ti me INSERTION, CRANIAL NERVE STIMULATOR CINTHIA (obstructive sleep apnea) Procedures Procedure Name Priority Date/Time Associated Diagnosis Comments DRUG-INDUCED SLEEP ENDOSCOPY 06/14/2024 7:24 EST CINTHIA (obstructive sleep apnea) from Last 3 Months Insurance [place] [id number] BCBS [place] Advance Directives For more information, please contact: [phone] Documents on File Type Date Recorded Patient Jet Mechanic Expl anation COLST/MOLST 03/03/2018 8:00 2018-02-27 DNR [...] the discussion? Not Discusse d Care Teams Skeiner Relationship Specialty Start Date End Date [facility] [address] [facility] [place] [address] PCP - General 10/30/23
--- OUTSIDE RECORDS SUMMARY | 2024-07-25 17:56 | XMS_ITS | Encounter Summary ---
Author Organization [facility] Address [address] [place] [address] Care Team Providers Care Community Relations Police Lieutenant Name Role Phone [facility] Primary Care Provider [phone] Reason for Visit * Auth/Cert (Routine) Specialty Diagnoses / Procedures Referred By Conthumberto t Referred To Contact Diagnoses CINTHIA (obstructive sleep apnea) Procedures DE DISE DYN EVAL SLEEP DISORDERED BREATHING FLX DX DRUG-INDUCED SLEEP ENDOSCOPY Referral ID Status Reason Start Date Expiration Date Visits Re quested Visits Authorized [id number] 1 1 Encounter Details Date Type Department Care Team (Late st Contact Info) Description 06/14/2024 5:40 EST - 06/14/2024 9:30 EST Hospital Encounter [facility] OR [address] [place] [phone] Vicki Main MD [address] [facility], [address] [place] [phone] Discharge Disposition: Home or Self Care Social [...] Date of Assessment Author No 02/25/2018 11:00 Gregoroi Lockwood RN * Do you have difficulty [...] Gregorio Lockwood RN documented in this encounter Discharge Instructions [...] at 06/14/2024 7:23 EST Source Note - EDGER MACHINE OPERATOR, SCAN 2 - 05/25/2024 15:31 EDT documented in this encounter OR Notes * OR Surgeon - Vicki Main MD - 06/14/2024 0751 EST OPERATIVE REPORT SERVICE DATE: 06/14/2024 SURGEON: Vicki Main MD OFFICE WORKFORCE PLANNER: Ricarda Baker MD PREOPERATIVE DIAGNOSIS Obstructive sleep [...] Info) Description 03/08/2025 11:00 EDT Office Visit [facility] Dermatology [address] [facility], [place] [address] Cynthia Salinas MD [address] [place] [address] 5 [place] [phone] 07/27/2025 Hospital Encounter [facility] [place] [address] [place] [address] [id number] Vicki Main MD [address] [place] [address] 4 [place] [phone] Scheduled Procedures Name Priority Associated Diagnoses Date/Ti [...] solu tion unit dose cup 995 mg 06/14/2024 acetaminophen (TYLENOL) tablet 1,000 mg 1 08/14/2023 atropine 0.1 mg/mL syringe 0.5 mg 1 024 diphenhydrAMINE (BENADRYL) i njection 12.5 mg 06/14/2024 HYDROmorphone (PF) (DILAUDID ) 0.5 mg/0.5 mL syringe 0.25-0.5 mg 06/14/2024 naloxone (NARCAN) injection 0.2 mg 2023 ondansetron (PF) (ZOFRAN) injection 4 mg 06/14/2024 oxyCODONE (ROXICODONE) immed iate release tablet 5-10 mg 1 06/14/2024 Discharge Count Last Ordered Date First Orde red Date DISCHARGE PATIENT 1 06/14/2024 documented in this encounter Care Teams Community Relations Police Lieutenant Relationship Specialty Start Date [facility] [address] [place] [address] PCP - General 10/30/23 documented as of this encounter
--- OUTSIDE RECORDS SUMMARY | 2024-07-25 17:56 | XMS_ITS | Encounter Summary ---
Author Organization [facility] Address [address] [place] [address] Care Team Providers Care Appeals Analyst Name Role Phone [facility] Primary Care Provider [phone] Reason for Visit * Reason Comments Surgical Excision M1 BCC R lateral for ehead * Consult (Routine/Next Available) - Authorization Not Required Specialty Diagnoses / Procedures Referred By Contac t Referred To Contact Dermatology Diagnoses Basal cell carcinoma of right forehead Procedures AK ADJT TIS TRNS/REARGMT F/C/C/M/N/A/G/H/F 10SQCM/< AK ADJT/REARGMT F/C/C/M/N/AX/G/H/F 10.1-30.0 SQ CM AK ADJNT TIS TRNSFR/REARGMT ANY AREA 30.1-60 SQ CM AK SPLIT AGRFT F/S/N/H/F/G/M/D GT 1ST 100 CM/</1 % AK SPLIT AGRFT F/S/N/H/F/G/M/D GT EA 100 CM/EA 1 % AK FTH/GF FR W/DIR CLSR F/C/C/M/N/AX/G/H/F 20SQCM/< AK FTH/GT FR W/DIR CLSR F/C/C/M/N/AX/G/H/F EA ADDL AK FRMJ DIR/TUBE PEDCL W/WOTR FH/CH/CH/M/N/AX/G/H/F AK DELAY FLAP/SECTIONING FLAP F/C/C/N/AX/G/H/F AK FOREHEAD FLAP W/PRESERVATION VASCULAR PEDICLE AK GRAFT COMPOSITE W/PRIMARY CLOSURE DONOR AREA AK MOHS MICROGRAPHIC H/N/H/F/G 1ST STAGE 5 BLOCKS [facility] Dermatology [address] [address] Phone: tel: fax: Jonelle Rain MD [address] [place] [phone] Phone: tel: fax: Referral ID Status Reason Start Date Expiration Date Visits Requested Visits Authorized [id number] Authorization Not Required Specialty Services Required 4 1 1 Encounter Details Date Type Department Care Team (Late st Contact Info) Description 04/06/2024 13:00 EDT Office Visit [facility] Dermatology [address] [id number] Jonelle Rain MD [address] [place] [phone] Basal cell carcinoma (BCC) of right [...] Date of Assessment Author No 02/25/2018 11:00 CARMITAT Gregorio Mendoza RN * Are you blind [...] site rapidly swells. Please call our office [phone] or if you have any questions or [...] 2024 Surgeon and Pathologist: Jonelle Rain MD Tobacco Stripper: Karin Lomas MD Case #: [id number] Mohs [...] handed personally by the doctor to the resident care technician for frozen sectioning. The tissue was [...] INFORMATION: Liya Anders SURGEON: Jonelle Rain MD TENNIS DESK TEAM MEMBER: Karin Lomas MD PREOPERATIVE DIAGNOSIS: Defect following [...] the entire procedure. Jonelle Rain MD Dermatology [facility] documented in this encounter Plan of Treatment Upcoming Encounters Date Type Department Care Team (Late st Contact Info) Description 03/08/2025 11:00 EDT Office Visit [facility] Dermatology [address] [place] [address], [place] [address] Cynthia Salinas MD [address] [place] [address] 5 [place] [address] 07/27/2025 Hospital Encounter [facility] [place] [address] [place] [address] Vicki Main MD [address] [place] [address] 4 [place] [address] Scheduled Procedures Name Priority Associated Diagnoses Date/Ti me INSERTION, CRANIAL NERVE STIMULATOR CINTHIA (obstructive sleep apnea) documented as of this encounter Procedures Procedure Name Priority Date/Time Associated Diagnosis Comments PROCEDURE REPORTS - SCANNED 04/08/2024 8:24 EDT documented in this encounter Results * PROCEDURE REPORTS - SCANNED (04/08/2024 8:24 EDT) 04/08/2024 8:24 EDT us Scan 2 Rv Service Technician PROCEDURE/MINOR SURGICAL OR DERABLES Final Result documented in this encounter Visit Diagnoses Diagnosis Basal cell carcinoma (BCC) of right forehead- Primary documented in this encounter Care Teams Appeals Analyst Relationship Specialty Start Date End Date [facility] [address] [place] [address] PCP - General 10/30/23 documented as of this encounter
--- OUTSIDE RECORDS SUMMARY | 2024-07-25 17:56 | XMS_ITS | Encounter Summary ---
Author Organization [facility] Address [address] [place] [address] Care Team Providers Care Power Switchboard Operator Name Role Phone Bianca Prescott [facility] Primary Care Provider [phone] Reason for Visit * Reason Onset Date Comments Appointment Related 04/14/2024 Encounter Details Date Type Department Care Team (Late st Contact Info) Description 04/14/2024 Telephone [facility] Dermatology [address] [facility], [place], [place] [address] Cynthia Salinas MD [address] [place] [address] 5 [place] [phone] Appointment Related Social History Tobacco Use Types [...] anything additional scheduled with Dr. Salinas s/p [facility]. Office Visit with Jonelle Rain MD (04/06/2024) documented in this encounter Plan of Treatment Upcoming Encounters Date Type Department Care Team (Late st Contact Info) Description 03/08/2025 11:00 EDT Office Visit [facility] Dermatology [address] [place] [address], [place] [address] Cynthia Salinas MD [address] [place] [address], [facility] 5 [place] [phone] 07/27/2025 Hospital Encounter [facility] OR [address] [place] [phone] Vicki Main MD [address] [facility], [facility], Level 4 [place] [address] Scheduled Procedures Name Priority Associated Diagnoses Date/Ti me INSERTION, CRANIAL NERVE STIMULATOR CINTHIA (obstructive sleep apnea) documented as of this encounter Visit Diagnoses Not on filedocumented in this encounter Care Teams Power Switchboard Operator Relationship Specialty Start Date End Date [facility] [address] [place] [address] PCP - General 10/30/23 documented as of this encounter
--- OUTSIDE RECORDS SUMMARY | 2024-07-25 17:56 | XMS_ITS | Encounter Summary ---
Author Organization [facility] Address [address] [place] [address] Care Team Providers Care Preschool Assistant Principal Name Role Phone [facility] Primary Care Provider [phone] Encounter Details Date Type Department Care Team (Late st Contact Info) Description 06/07/2024 15:20 EST - 06/07/2024 16:37 EST Hospital Encounter [facility] Pre-Surgical Testing [address] [place], [place] [phone] Social History Tobacco Use Types Packs/Day Years [...] Sign Reading Time Taken Comments Blood Pressure - - Pulse - - Temperature - - Respiratory Rate - - Oxygen Saturation - - Inhaled Oxygen Concentration - - Weight 70.8 kg (156 lb) 06/07/2024 1536 EST Height 144.8 cm (4' 9) 06/07/2024 1536 EST Body Mass Index 33.76 06/07/2024 1536 EST documented in this encounter Functional Status * Are you deaf or do you have serious difficulty hearing? Answer Date of Assessment Author No 02/25/2018 11:00 EDGregorio Mueller RN * Are you blind or do [...] Date of Assessment Author No 02/25/2018 11:00 EDGregorio Mueller RN * Because of a physical, mental, [...] Gregorio Lockwood RN documented in this encounter Medications at Time [...] supplement UNABLE TO FIND daily. Med Name: [employer] Zinc Acetate, Oral, 50 mg (zinc) capsule Take by mouth daily. documented as of this encounter Plan of Treatment Upcoming Encounters Date Type Department Care Team (Late st Contact Info) Description 03/08/2025 11:00 EDT Office Visit [facility] Dermatology [address] [facility], [place], [place] [address] Cynthia Salinas MD 111 [facility], [facility], [facility] 5 [place] [phone] 07/27/2025 Hospital Encounter [facility] OR [address] [place] [address] Vicki Main MD 111 [facility], [facility] 4 [place] [address] Scheduled Procedures Name Priority Associated Diagnoses Date/Ti me INSERTION, CRANIAL NERVE STIMULATOR CINTHIA (obstructive sleep apnea) documented as of this encounter Visit Diagnoses Not on filedocumented in this encounter Discontinued Medications Medication Sig Discontinue Reason Start Date End Da te tocopheryl acetate (VITAMIN E) 200 unit capsule Take 1 Capsule by mouth daily. Therapy completed 06/07/2024 UNKNOWN TO PATIENT sleeping pill patient unsure of name. - Error 06/07/2024 documented as of this encounter Historical Medications * This list may reflect changes made after this encounter. UNABLE TO FIND daily. Med Name: [employer]ium- brain health diphenhydramine HCl (UNISOM, DIPHENHYDRAMINE, ORAL) Take by mouth at bedtime. melatonin 10 mg tablet,chewable Take by mouth at bedtime. cholecalciferol, vitamin D3, (VITAMIN D3 ORAL) Take by mouth daily. UNABLE TO FIND daily. Med Name: EB- N6 supplement UNABLE TO FIND daily. Med Name: green lip muscle gabapentin (NEURONTIN) 100 mg capsule Take 1 Capsule by mouth 3 times daily. added in this encounter Care Teams Preschool Assistant Principal Relationship Specialty Start Date End Date [facility] [address] [place] [address] PCP - General 4/5/24 documented as of this encounter
--- OUTSIDE RECORDS SUMMARY | 2024-07-25 17:57 | XMS_ITS | Encounter Summary ---
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; Chronic diastolic congestive heart failure ([facility]) Discharge Disposition: Auto Discharge Social History Tobacco Use Types Packs/Day Years Used Date Smoking Tobacco: Former Cigarettes 0 07/27/1961 - 07/27/1962 Smokeless Tobacco: Never Comments Unknown Sex and Gender Information Value Date Recorded Sex Assigned at Female 06/14/2024 5:39 EST Legal Sex Female 17:29 EST Gender Identity Female 11/09/2019 12:42 EDT Sexual Orientation Not on file documented as of this encounter Functional Status * Are you deaf or do you have serious difficulty hearing? Answer Date of Assessment Author No 02/25/2018 11:00 CARMITAT Gregorio Mendoza, STACIE * Are you blind or do you [...] Mendoza RN documented in this encounter Discharge Diagnoses Diagnosis I25.810 Atherosclerosis [...] Info) Description 03/08/2025 11:00 EDT Office Visit [facility] Dermatology [address] [facility], [place] [address] Cynthia Salinas MD [address] [place] [address], [facility] 5 [place] [phone] 07/27/2025 Hospital Encounter [facility] OR [address] [place] [address] Vicki Main MD 111 [facility], Level [address] [place] [address] Scheduled Procedures Name Priority Associated Diagnoses Date/Ti me INSERTION, CRANIAL NERVE STIMULATOR CINTHIA (obstructive sleep apnea) documented as of this encounter Procedures Procedure Name Priority Date/Time Associated Diagnosis Comments COMPLETE BLOOD COUNT Routine 04/14/2018 11:59 EDT 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 NT PRO BNP Routine 04/14/2018 11:59 EDT 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 Chronic diastolic congestive heart failure ([facility]) documented in this encounter Results * (ABNORMAL) COMPLETE BLOOD COUNT (04/14/2018 11:59 EDT) WBC 10.40 4.0 - 12.4 K/cmm 04/14/2018 16:31 [facility] RBC 4.09 3.86 - 5.04 M/cmm 04/14/2018 16:31 [facility] Hemoglobin 13.9 11.6 - 15.2 gm/dl 04/14/2018 16:31 [facility] HCT 41.4 34.9 - 44.4 % 04/14/2018 16:31 [facility] MCV 101(H) 81 - 98 fl 04/14/2018 16:31 [facility] MCH 34.0(H) 26.7 - 33.3 pg 04/14/2018 16:31 [facility] MCHC 33.6 32.1 - 35.9 gm/dl 04/14/2018 16:31 [facility] RDW-CV 12.6 <14.7 % 04/14/2018 16:31 [facility] RDW-SD 47.5 <50.4 fl 04/14/2018 16:31 [facility] PLT 178 141 - 377 K/cmm 04/14/2018 16:31 [facility] MPV 11.8 9.5 - 12.7 fl 04/14/2018 16:31 EDT [facility] Blood specimen (specimen) BLOOD SPECIMEN / Unknown 04/14/2018 11:59 EDT 04/14/2018 16:00 EDT Milagro Lozano RN HEMATOLOGY & PF4 ORDERABLES Fi nal Result Performing Organization Address [facility] Co de Phone Number [facility] [address] [place] [address] * (ABNORMAL) NT PRO BNP (04/14/2018 11:59 EDT) NT Pro BNP 1,060(H) <300 pg/ml 04/14/2018 16:42 EDT [facility] Comment: Reference Range: NT-proBNP values [...] EDT Milagro Lozano RN CHEMISTRY & BLOOD GAS ORDERABL ES Final Result Performing Organization Address [facility] Co de Phone Number [facility] [address] [place] [address] documented in this encounter Visit Diagnoses Diagnosis 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
--- OUTSIDE RECORDS SUMMARY | 2024-07-25 17:57 | XMS_ITS | Encounter Summary ---
Author Organization [facility] Address [address] [place] [address] Care Team Providers Care Photographers' Model Name Role Phone Kit Burch MD Primary Care Provider [phone] Encounter Details Date Type Department Care Team (Late st Contact Info) Description 03/12/2018 Historical Results Only [facility] - Main [place] [address] [place] [address] Ishmael Kilgore MD [facility] [address] [place] [address] Social History Tobacco Use Types [...] of a physical, mental, or emotional condition, do you have difficulty doing errands alone such as visiting a doctor's office or shopping? (15 years old or older) Answer Date of Assessment Author No 02/25/2018 11:00 EDT Gregorio Mendoza RN documented as of this encounter Mental Status * Because of a physical, mental, or emotional condition, do you have serious difficulty concentrating, remembering, or making decisions? (5 years old or older) Answer Entry Date Author No 02/25/2018 11:00 EDT Gregorio Mendoza RN documented in this encounter Plan of Treatment Upcoming Encounters Date Type Department Care Team (Late st Contact Info) Description 03/08/2025 11:00 EDT Office Visit [facility] Dermatology [address] [place] [address], [place] [address] Cynthia Salinas MD [address] [place] [address] 5 [place] [phone] 07/27/2025 Hospital Encounter [facility] OR [address] [place] [phone] Vicki Main MD [address] [place] [address] 4 [place] [phone] Scheduled Procedures Name Priority Associated Diagnoses Date/Ti me INSERTION, CRANIAL NERVE STIMULATOR CINTHIA (obstructive sleep apnea) documented as of this encounter Procedures Procedure Name Priority Date/Time Associated Diagnosis Comments BACTERIAL CULTURE/SMEAR, RESPIRATORY Routine 03/12/2018 17:37 EDT documented in this encounter Results * BACTERIAL CULTURE/SMEAR, RESPIRATORY (03/12/2018 17:37 EDT) GRAM STAIN - [facility] TWO SWABS RECEIVED FOR CULTURE AND GRAM STAIN 03/12/2018 18:31 EDT [facility] BACTERIA SEEN - [facility] NO 03/12/2018 18:31 EDT [facility] WBC RARE 03/12/2018 18:31 EDT [facility] USUAL SKIN ARNIE - [facility] USF 03/15/2018 11:30 EDT [facility] QUANT - [facility] BROTH ONLY 03/15/2018 11:30 EDT [facility] 03/12/2018 17:3 7 EDT 03/12/2018 17:37 EDT us Ishmael Kilgore MD MICROBIOLOGY - GENERAL ORDERABLES Final Result [facility] documented in this encounter Visit Diagnoses Not on filedocumented in this encounter Care Teams Photographers' Model Relationship Specialty Start Date End Date Kit Burch MD [facility] [employer] [address] [place] [phone] PCP - General 01/15/18 10/29/23 documented as of this encounter
--- OUTSIDE RECORDS SUMMARY | 2024-07-25 17:57 | XMS_ITS | Encounter Summary ---
Author Organization [facility] Address [address] [place] [address] Care Team Providers Care Community Health Director Name Role Phone Kit Burch MD Primary Care Provider [phone] Reason for Visit * Reason Comments Basal Cell Carcinoma nose Encounter Details Date Type Department Care Team (Late st Contact Info) Description 12/29/2019 10:00 EDT Office Visit [facility] Dermatology 5th [address] [address] Enzo Ervin MD [address] [place] [address], [address] [place] [phone] Basal cell carcinoma (BCC) of skin of [...] 02/25/2018 11:00 CARMITAT Gregorio Mendoza RN * Because of a [...] discomfort. Tylenol, taken as directed by the rail layer, will help relieve pain. If Tylenol does [...] Refills Last Filled Start Date End Date triamcinolone (KENALOG) 0.1 % cream Apply topically to affected area 2 times daily. Do not apply to face, armpit or groin. 45 g 3 12/29/2019 cephALEXin (KEFLEX) 500 mg capsule Take 1 Cap by mouth 3 times daily for 3 days. 9 Cap 12/29/2019 0 documented in this encounter Progress Notes * [...] aspirin Total joint replacements/valves: aortic valve replacment 2018 Allergies: Patient is allergic to anesthesia [...] Chief of Dermatology [facility] [employer] Jointer: Abigail Davey PA-C Case #: [id number] [...] handed personally by the doctor to the install and repair technician for frozen sectioning. The tissue was [...] Chief of Dermatology [facility] [employer] Jointer: Abigail Davey PA-C Preoperative Diagnosis: Defect following [...] Info) Description 03/08/2025 11:00 EDT Office Visit [facility] Dermatology [address] [facility], [place] [address] Cynthia Salinas MD [address] [place] [address], [facility] 5 [place] [phone] 07/27/2025 Hospital Encounter [facility] OR [address] [place], [place] [address] Vicki Main MD 111 [facility], [facility] 4 [place] [phone] Scheduled Procedures Name Priority Associated Diagnoses Date/Ti me INSERTION, CRANIAL NERVE STIMULATOR CINTHIA (obstructive sleep apnea) documented as of this encounter Procedures Procedure Name Priority Date/Time Associated Diagnosis Comments PROCEDURE REPORTS - SCANNED 01/09/2020 12:48 EDT documented in this encounter Results * PROCEDURE REPORTS - SCANNED (01/09/2020 12:48 EDT) 01/09/2020 12:4 8 EDT us Scan 2 Certified Corporate Travel Executive PROCEDURE/MINOR SURGICAL OR DERABLES Final Result documented in this encounter Visit Diagnoses Diagnosis Basal cell carcinoma (BCC) of skin of nose- Primary documented in this encounter Care Teams Community Health Director Relationship Specialty Start Date End Date Kit Burch MD [facility] [employer] [address] [place] [address] PCP - General 01/15/18 10/29/23 documented as of this encounter
--- OUTSIDE RECORDS SUMMARY | 2024-07-25 17:57 | XMS_ITS | Encounter Summary ---
Author Organization [facility] Address [address] [place] [address] Care Team Providers Care Infantryman Name Role Phone Kit Burch MD Primary Care Provider [phone] [facility] Primary Care Provider [phone] Encounter Details Date Type Department Care Team (Late st Contact Info) Description 03/06/2022 Lab Requisition [facility] Pathology & Laboratory Medicine - [address] [address] Outr Resulting Lab, Provider Social History Tobacco [...] Info) Description 03/08/2025 11:00 EDT Office Visit [facility] Dermatology [address] [place] [address], [place] [address] Cynthia Salinas MD [address] [place] [address] 5 [place] [phone] 07/27/[address] [facility] OR [address] [place] [phone] Vicki Main MD [address] [place] [address] 4 [place] [address] Scheduled Procedures Name Priority Associated Diagnoses Date/Ti me INSERTION, CRANIAL NERVE STIMULATOR CINTHIA (obstructive sleep apnea) documented as of this encounter Procedures Procedure Name Priority Date/Time Associated Diagnosis Comments VITAMIN B12 Routine 03/06/2022 11:27 EDT documented in this encounter Results * (ABNORMAL) VITAMIN B12 (03/06/2022 11:27 EDT) Vitamin B12 1,790(H) 211 - 911 pg/mL 03/06/2022 23:06 EDT [facility] Blood VENOUS BLOOD / Unknown 03/06/2022 11:27 EDT 03/06/2022 21:26 EDT us Provider Outr Resulting Lab CHEMISTRY & BLOOD GA S ORDERABLES Final Result [facility] [address] [place] [address] documented in this encounter Visit Diagnoses Not on filedocumented in this encounter Care Teams Infantryman Relationship Specialty Start Date End Date Kit Burch MD [address] [facility] [address] [place] [address] PCP - General 01/15/18 10/29/23 [facility] [address] [place] [address] PCP - General 10/30/23 documented as of this encounter
--- OUTSIDE RECORDS SUMMARY | 2024-07-25 17:57 | XMS_ITS | Encounter Summary ---
Author Organization [facility] Address [address] [place] [address] Care Team Providers Care Coal Gasification Technician Name Role Phone Kit Burch MD Primary Care Provider [phone] Reason for Referral * Consult (Routine) - Closed Specialty Diagnoses / Procedures Referred By Ana caro Referred To Contact Diagnoses Chronic diastolic congestive heart failure (HCC-CMS) Coronary artery disease involving coronary bypass graft of [place] heart without angina pectoris S/P AVR Milagro Lozano RN [address] [place] [address] Phone: tel: fax: Referral ID Status Reason Start Date Expiration Date V isits Requested Visits Authorized [id number] Closed Specialty Services Required 04/14/2018 1 1 Question Answer Reason for Request: s/p CABG and AVR SITE Loni * Laboratory Services (Routine) - New Request Specialty Diagnoses / Procedures Referred By Ana caro Referred To Contact Diagnoses Coronary artery disease involving coronary bypass graft of [place] heart without angina pectoris Procedures BASIC METABOLIC PANEL (BMP) Milagro Lozano RN [address] [place] [address] Phone: tel: fax: Referral ID Status Reason Start Date Expiration Date V isits Requested Visits Authorized [id number] New Request 04/14/2018 1 1 Reason for Visit * Reason Comments Coronary Artery Disease PO s/p CABGx1 Aortic Stenosis Fatigue Encounter Details Date Type Department Care Team (Late st Contact Info) Description 04/14/2018 11:00 EDT Office Visit [facility] Cardiology - [address] [address] Milagro Lozano RN [address] [place] [address] Coronary artery disease involving coronary bypass graft of [place] heart without angina pectoris (Primary Dx); Chronic [...] EDT documented in this encounter Functional Status * [...] Lockwood RN documented in this encounter Discharge Diagnoses [...] visit for CAD s/p CABGx1 (WALTERS-LAD) and AVR(Lalo bovine pericardial valve, size small) February 22, 2018. Pt presented with JONES and decreased activity tolerance. Pt reports some improvement, but continues to be fatigued. Had great difficulty wakening from anesthesia by family report and review in [facility]. Developed isolated episode of afib. EKG 02/25/2018 SR. I do not believe she is in afib today. She was transferred to [facility] on February 27, 2018. Has since been home recovering. She has been grievingthe loss of her SO and a sister in the interim. Does not follow a particular diet. No structured exercise. BP stable. Labs at discharge reveal hgb/hct/plts . No lipids in [facility]. Followed by Dr. De Dios at [facility]. Pt denies chest pain on exertion, orthopnea, paroxysmal nocturnal dyspnea, leg swelling, dizziness and syncope, denies fevers or chills. Pt has been compliant with her medications. Medications side effects include none. Past Medical History: Diagnosis Date ??? Aortic stenosis ??? Depression ??? Endometrial cancer ([facility]) ??? Hyperlipidemia ??? Hypertension ??? Hypothyroid ??? CINTHIA (obstructive sleep apnea) Patient Active Problem List Diagnosis Date Noted ??? Nonrheumatic aortic valve stenosis 02/22/2018 Priority: Medium ??? Coronary artery disease involving [place] heart with angina pectoris ([facility]) 02/22/2018 Priority: Medium Past Surgical History: [...] greater than 50% of the time spent [id number], providing patient education and coordinating the plan of care. I was supervised by Dr. Cherry who was on site and available. Portions of this document may have been prepared with speech recognition software or keyboard data entry processor techniques. Minor irregularities or keyboarding misprints may be present Milagro Lozano NP Interventional Cardiology documented in this encounter Plan of Treatment Upcoming Encounters Date Type Department Care Team (Late st Contact Info) Description 03/08/2025 11:00 EDT Office Visit [facility] Dermatology [address] [facility], [place], [place] [phone] Cynthia Salinas MD [address] [place] [address], [facility] 5 [place] [address] 07/27/[address] [facility] OR [address] [place] [address] Vicki Main MD [address] [place] [address], [facility] 4 [place] [address] Scheduled Orders Name Type Priority Associated Diagnoses Orde r Schedule BASIC METABOLIC PANEL (BMP) Lab Routine Coronary artery disease involving coronary bypass graft of [place] heart without angina pectoris Expected: 04/14/2018 (Approximate), Expires: 04/14/2019 Scheduled Procedures Name Priority Associated Diagnoses Date/Ti me INSERTION, CRANIAL NERVE STIMULATOR CINTHIA (obstructive sleep apnea) Scheduled Referrals Name Type Priority Associated Diagnoses Order Schedule AMB CONS/FOLLOW UP CARDIAC REHABILITATION Outpatient Referral Routine Chronic diastolic congestive heart failure (HCC-CMS) Coronary artery disease involving coronary bypass graft of [place] heart without angina pectoris S/P AVR Ordered: 04/14/2018 documented as of this encounter Results * (ABNORMAL) NT PRO BNP (04/14/2018 11:59 EDT) Pathologist [facility] NT Pro BNP 1,060(H) <300 pg/ml 04/14/2018 16:42 EDT [facility] Comment: Reference Range: NT-proBNP [...] Unknown 04/14/2018 11:59 EDT 04/14/2018 16:00 EDT us Milagro Lozano RN CHEMISTRY & BLOOD GAS ORDERABL ES Final Result [facility] [address] [place] [address] * (ABNORMAL) COMPLETE BLOOD COUNT (04/14/2018 11:59 EDT) Pathologist [facility] WBC 10.40 4.0 - 12.4 K/cmm 04/14/2018 16:31 EDT [facility] RBC 4.09 3.86 - 5.04 M/cmm 04/14/2018 16:31 [facility] Hemoglobin 13.9 11.6 - 15.2 gm/dl 04/14/2018 16:31 [facility] HCT 41.4 34.9 - 44.4 % 04/14/2018 16:31 [facility] MCV 101(H) 81 - 98 fl 04/14/2018 16:31 [facility] MCH 34.0(H) 26.7 - 33.3 pg 04/14/2018 16:31 [facility] MCHC 33.6 32.1 - 35.9 gm/dl 04/14/2018 16:31 [facility] RDW-CV 12.6 <14.7 % 04/14/2018 16:31 [facility] RDW-SD 47.5 <50.4 fl 04/14/2018 16:31 [facility] PLT 178 141 - 377 K/cmm 04/14/2018 16:31 [facility] MPV 11.8 9.5 - 12.7 fl 04/14/2018 16:31 [facility] Blood specimen (specimen) BLOOD SPECIMEN / Unknown 04/14/2018 11:59 EDT 04/14/2018 16:00 EDT Milagro Lozano RN HEMATOLOGY & PF4 ORDERABLES Fi nal Result Performing Organization Address City/State/[facility] Co de Phone Number [facility] [address] [place] [address] documented in this encounter Visit Diagnoses Diagnosis Coronary artery disease involving coronary bypass graft of [place] heart without angina pectoris- Primary Chronic diastolic congestive heart failure (HCC-CMS) Chronic diastolic heart failure S/P AVR Heart valve replaced by other means documented in this encounter Historical Medications * This list may reflect changes made after this encounter. traMADol (ULTRAM) 50 mg tablet Take 1 [...] 10/30/2023 added in this encounter Care Teams Coal Gasification Technician Relationship Specialty Start Date End Date Kit Burch MD [facility] [employer] [address] [place] [phone] PCP - General 01/15/18 10/29/23 documented as of this encounter
--- OUTSIDE RECORDS SUMMARY | 2024-07-25 17:57 | XMS_ITS | Encounter Summary ---
Author Organization [facility] Address [address] [place] [address] Care Team Providers Care Sed Middle School Teacher Name Role Phone Kit Burch MD Primary Care Provider [phone] Reason for Visit * Reason Onset Date Comments Results 04/19/2018 Encounter Details Date Type Department Care Team (Late st Contact Info) Description 04/19/2018 Telephone [facility] Cardiology - [place] [address] Gilda Bowen RN Results Social [...] Telephone Encounter - Gilda Bowen RN - 04/23/2018 0909 EDT Called and spoke to Liya she was at her sons home staying for awhile We reviewed Milagro Lozano'sNP recommendations for patient to monitor sodium intake, daily weights etc. Patient verbalized understanding with no learning barriers. Patient did her f/u with store assistant near her home * Telephone Encounter - [...] Dios as scheduled. Thank you, Milagro Lozano DNP, [employer]-C ? Associated Results ? BASIC METABOLIC PANEL (BMP) Status: Final result Visible to patient: No (Not Released) Order: [id number] ? Notes Recorded by Milagro Lozano NP [...] Dios as scheduled. Thank you, Milagro Lozano DNP, [employer]UIDES-C ?? Ref Range & Units 5d ago [...] 95 ?? Fasting? Unknown ?? Resulting Agency [facility] ? Specimen Collected: 04/14/18 11:59 ?? Last Resulted: 04/14/18 16:34 ?? documented in this encounter Plan of Treatment Upcoming Encounters Date Type Department Care Team (Late st Contact Info) Description 03/08/2025 11:00 EDT Office Visit [facility] Dermatology [address] [facility], [place] [address] Cynthia Salinas MD [address] [place] [address], [facility] [address] [place] [address] 07/27/2025 Hospital Encounter [facility] OR [address] [place], [place] [address] Vicki Main MD [address] [facility], Level [address] [place] [phone] Scheduled Procedures Name Priority Associated Diagnoses Date/Ti me INSERTION, CRANIAL NERVE STIMULATOR CINTHIA (obstructive sleep apnea) documented as of this encounter Visit Diagnoses Not on filedocumented in this encounter Care Teams Sed Middle [employer] Teacher Relationship Specialty Start Date End Date Kit Burch MD [facility] [address] [place] [phone] PCP - General 01/15/18 10/29/23 documented as of this encounter
--- OUTSIDE RECORDS SUMMARY | 2024-07-25 17:57 | XMS_ITS | Encounter Summary ---
Author Organization [facility] Address [address] [place] [address] Care Team Providers Care Staff Engineer Name Role Phone Kit Burch MD Primary Care Provider [phone] Reason for Referral * Radiology Services (Routine) - New Request Specialty Diagnoses / Procedures Referred By Contac t Referred To Contact Diagnoses S/P CABG (coronary artery bypass graft) Procedures CHEST PA AND LATERAL Wm Magana PA-C Phone: tel: fax: Referral ID Status Reason Start Date Expiration Date V isits Requested Visits Authorized [id number] New Request 04/07/2018 1 1 Encounter Details Date Type Department Care Team (Late st Contact Info) Description 04/07/[address] [facility] Cardiothoracic Surgery - [address] [address] Wm Magana PA-C [address] [place] [address], [address] [place] [phone] S/P CABG (coronary artery bypass graft) (Primary [...] Answer Entry Date Author No 02/25/2018 11:00 CARMITAT Gregorio Mendoza RN documented in this encounter Plan of Treatment Upcoming Encounters Date Type Department Care Team (Late st Contact Info) Description 03/08/2025 11:00 EDT Office Visit [facility] Dermatology [address] [place] [phone] Cynthia Salinas MD [address] [place] [address] 5 [place] [address] 07/27/2025 Hospital Encounter [facility] OR [address] [place] [address] Vicki Main MD [address] [place] [address] 4 [place] [address] Scheduled Procedures Name Priority Associated [...] AM CLINICAL HISTORY: Z95.1-Presence of aortocoronary bypass [id number]; s/p AVR/CABG TECHNIQUE: Two views of the [...] AM CLINICAL HISTORY: Z95.1-Presence of aortocoronary bypass [id number]; s/p AVR/CABG TECHNIQUE: Two views of the [...] above interpretation and agree with the findings. us Wm Magana PA-C [facility] DIAGNOSTIC IMAGING OR DERABLES Final Result documented in this encounter Visit Diagnoses Diagnosis S/P CABG (coronary artery bypass graft)- Primary Postsurgical aortocoronary bypass status documented in this encounter Care Teams Staff Engineer Relationship Specialty Start Date End Date Kit Burch MD [facility] [employer] [facility] [address] [place] [phone] PCP - General 01/15/18 10/29/23 documented as of this encounter
--- OUTSIDE RECORDS SUMMARY | 2024-07-25 17:57 | XMS_ITS | Encounter Summary ---
Author Organization [facility] Address [address] [place] [address] Care Team Providers Care Solar Hot Water Installer Name Role Phone Kit Burch MD Primary Care Provider [phone] Reason for Visit * Reason Onset Date Comments Referral Request 08/31/2019 Encounter Details Date Type Department Care Team (Late st Contact Info) Description 08/31/2019 Telephone [facility] Dermatology [address] [address] Enzo Ervin MD [address] [place] [address], [address] [place] [phone] Referral Request Social History Tobacco Use Types [...] the fact that she flew back from [place]. She wants to cancel her appointment with [...] to referring office. 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 Referring Provider: Kit Burch MD Notes and Pathology received documented in this encounter Plan of Treatment Upcoming Encounters Date Type Department Care Team (Late st Contact Info) Description 03/08/2025 11:00 EDT Office Visit [facility] Dermatology [address] [facility], [place] [address] Cynthia Salinas MD [address] [facility], [facility] 5 [place] [address] 07/27/2025 Hospital Encounter [facility] OR [address] [place] [phone] Vicki Main MD [address] [facility], [facility] 4 [place] [phone] Scheduled Procedures Name Priority Associated Diagnoses Date/Ti me INSERTION, CRANIAL NERVE STIMULATOR CINTHIA (obstructive sleep apnea) documented as of this encounter Visit Diagnoses Not on filedocumented in this encounter Care Teams Solar Hot Water Installer Relationship Specialty Start Date End Date Kit Burch MD [facility] [address] [place] [phone] PCP - General 01/15/18 10/29/23 documented as of this encounter
--- OUTSIDE RECORDS SUMMARY | 2024-07-25 17:57 | XMS_ITS | Encounter Summary ---
Author Organization [facility] Address [address] [place] [address] Care Team Providers Care Tie Layer Name Role Phone Kit Burch MD Primary Care Provider [phone] Reason for Visit * Reason Comments Post-OP Follow Up Here for follow up, xray today. * Follow Up (Other (Specify in Question)) - Closed Specialty Diagnoses / Procedures Referred By Contact Referred To Contact Cardiothoracic Surgery Diagnoses Coronary artery disease involving [place] heart with angina pectoris, unspecified vessel or lesion type ([facility]) Nonrheumatic aortic valve stenosis Olga Lidia Stone MD Phone: tel:[phone] fax: [facility] Cardiothoracic Surgery [address] [address] Phone: tel: fax: Referral ID Status Reason Start Date Expiration Date V isits Requested Visits Authorized [id number] Closed Specialty Services Required 02/27/2018 1 1 Encounter Details Date Type Department Care Team (Latest Contact Info) Description 04/08/2018 9:30 EDT Office Visit [facility] Cardiothoracic Surgery [address] [phone] Tyrell Vogt MD Atherosclerosis of [place] coronary artery of [place] heart with angina pectoris (HCC-CMS) (Primary Dx) [...] 02/25/2018 11:00 CARMITAT Gregorio Mendoza RN * Do you have [...] Author No 02/25/2018 11:00 Gregorio Lockwood RN documented as of this encounter Mental Status * Because of a physical, mental, or emotional condition, do you have serious difficulty concentrating, remembering, or making decisions? (5 years old or older) Answer Entry Date Author No 02/25/2018 11:00 Gregorio Lockwood RN documented in this encounter Discharge Diagnoses Diagnosis Z95.2 Presence of prosthetic heart valve-Z95.2[ICD-10-CM] Z95.1 Presence of aortocoronary bypass graft-Z95.1[ICD-10-CM] Z98.890 Other specified postprocedural states-Z98.890[ICD-10-CM] I25.119 Atherosclerotic heart disease of [place] coronary artery with unspecified angina pectoris-I25.119[ICD-10-CM] documented [...] Continue your long-term care follow-up with your Client Support Professional/Heart Doctor and Primary Care Provider/Doctor as well [...] Follow-up with your Primary Care Provider/Doctor or Infrastructure Engineer/Diabetes Doctor for your diabetes. Continue to ambulate/walk [...] contact your Primary Care Provider/Doctor or your Client Support Professional/Heart Doctor for a referral to the Program with a Stress Test. For those of you who attend the Program at [facility] ([facility] Cardiology) you can have your Stress Test at the Cardiac Rehabilitation Program. They are located at [address] [place] [address] and their telephone number is . Follow the [place] [employer] Antibiotic Prophylaxis/Prevention Guidelines given and reviewed with you in a handout format today. Bring this with you to your Cardiology/Heart Doctor follow-upvisits in the future so that your Client Support Professional/Heart Doctor can inform you of any future [...] in this encounter Progress Notes * Tyrell Votg MD - 04/08/2018 0930 EDT Postop On-pump coronary artery bypass x1 (left internal mammary to LAD), aortic valve replacement (Phenix bovine pericardial valve, size small). 02/22/18 SUBJECTIVE: [...] close follow up with Kit Burch and Ms. Worgan REEL HOOKER 3. Follow-up in this office on a PRN basis. 4. Cardiac rehab per MsManuel Lozano REEL HOOKER 5. Opthalmology follow up for her eye floaters. Tyrell Vogt MD 04/08/2018 documented in this encounter Plan of Treatment Upcoming Encounters Date Type Department Care Team (Late st Contact Info) Description 03/08/2025 11:00 EDT Office Visit [facility] Dermatology [address] [facility], [place] [address] Cynthia Salinas MD [address] [facility], [facility] 5 [place] [address] 07/27/2025 Hospital Encounter [facility] OR [address] [place] [phone] Vicki Main MD [address] [facility], [facility] 4 [place] [address] Scheduled Procedures Name Priority Associated Diagnoses Date/Ti me INSERTION, CRANIAL NERVE STIMULATOR CINTHIA (obstructive sleep apnea) documented as of this encounter Visit Diagnoses Diagnosis Atherosclerosis of [place] coronary artery of [place] heart with angina pectoris ([facility])- Primary documented in this encounter Discontinued Medications Medication Sig Discontinue Reason Start Date End Da te docusate sodium (COLACE) 100 mg capsule Take 2 Caps by mouth 2 times daily. Therapy completed 02/27/2018 04/08/2018 documented as of this encounter Historical Medications * This list may reflect changes made after this encounter. UNABLE TO FIND Med Name: CBD oil 10/30/2023 UNKNOWN TO PATIENT sleeping pill patient unsure of name. - 06/07/2024 added in this encounter Care Teams Tie Layer Relationship Specialty Start Date End Date Kit Burch MD [facility] [address] [employer] [address] [place] [phone] PCP - General 01/15/18 10/29/23 documented as of this encounter
--- OUTSIDE RECORDS SUMMARY | 2024-07-25 17:57 | XMS_ITS | Encounter Summary ---
Author Organization [facility] Address [address] [place] [address] Care Team Providers Care Yard Coordinator Name Role Phone Kit Burch MD Primary Care Provider [phone] [facility] Primary Care Provider [phone] Encounter Details Date Type Department Care Team (Late st Contact Info) Description 03/06/2022 Lab Requisition [facility] Pathology & Laboratory Medicine - [address] [address] Outr Resulting Lab, Provider Social History Tobacco [...] Info) Description 03/08/2025 11:00 EDT Office Visit [facility] Dermatology [address] [place] [address], [place] [address] Cynthia Salinas MD [address] [place] [address] 5 [place] [phone] 07/27/2025 Hospital Encounter [facility] OR [address] [place] [phone] Vicki Main MD [address] [place] [address] 4 [place] [address] Scheduled Procedures Name Priority Associated [...] (ABNORMAL) SPEP WITH IMMUNOTYPING PERFORMABLE (03/06/2022 11:27 [facility]) Albumin % 55.0(L) 55.8 - 66.1 % 03/07/2022 13:09 [facility] Albumin g/dL 4.1 3.6 - 5.2 g/dL 03/07/2022 13:09 [facility] Alpha-1 % 3.8 2.9 - 4.9 % 03/07/2022 13:09 [facility] Alpha-1 g/dL 0.30 0.15 - 0.40 g/dL 03/07/2022 13:09 [facility] Alpha-2 % 11.5 7.1 - 11.8 % 03/07/2022 13:09 [facility] Alpha-2 g/dL 0.90 0.50 - 1.00 g/dL 03/07/2022 13:09 [facility] Beta % 12.1 8.4 - 13.1 % 03/07/2022 13:09 [facility] Beta g/dL 0.90 0.60 - 1.20 g/dL 03/07/2022 13:09 [facility] Gamma % 17.6 11.1 - 18.8 % 03/07/2022 13:09 [facility] Gamma g/dL 1.30 0.60 - 1.60 g/dL 03/07/2022 13:09 [facility] SPEP Comment No apparent monoclonal protein seen on serum electrophoresis 03/07/2022 13:09 [facility] Comment:See scanned/suppleme ntary report. Immunotyping , Serum Current Interpretation: Negative for monoclonal immunoglobulins. Reviewed by: Jed Duong MD 03/07/2022 1055 03/07/2022 13:09 [facility] Total Protein 7.4 6.3 - 8.2 g/dL 03/07/2022 13:09 [facility] Blood VENOUS BLOOD / Unknown 03/06/2022 11:27 EDT 03/06/2022 21:26 EDT us Provider Outr Resulting Lab CHEMISTRY & BLOOD GA S ORDERABLES Final Result Performing Organization Address [facility] de Phone Number [facility] [address] [place] [address] * PROTEIN, TOTAL (03/06/2022 11:27 EDT) Blood VENOUS BLOOD / Unknown 03/06/2022 11:27 EDT 03/06/2022 21:26 EDT us Provider Outr Resulting Lab CHEMISTRY & BLOOD GA S ORDERABLES Final Result Performing Organization Address [facility] Co de Phone Number [facility] [address] [place] [address] documented in this encounter Visit Diagnoses Not on filedocumented in this encounter Care Teams Yard Coordinator Relationship Specialty Start Date End Date Kit Burch MD [address] [place] [address] [address] [place] [phone] PCP - General 01/15/18 10/29/23 [facility] [address] [place] [address] PCP - General 10/30/23 documented as of this encounter
--- OUTSIDE RECORDS SUMMARY | 2024-07-25 17:57 | XMS_ITS | Encounter Summary ---
Author Organization [facility] Address [address] [place] [address] Care Team Providers Care Incinerator Plant Supervisor Name Role Phone Kit Burch MD Primary Care Provider [phone] Reason for Visit * Reason Onset Date Comments Update 03/23/2018 Encounter Details Date Type Department Care Team (Late st Contact Info) Description 03/23/2018 Telephone [facility] Cardiothoracic Surgery - [facility] [address] [place] [address] Sharla Clements RN [address] [place] [address] Update Social History Tobacco Use Types Packs/Day [...] Gregorio Lockwood RN documented in this encounter Miscellaneous Notes * Telephone Encounter - Sharla Clements RN - 03/23/2018 2234 EDT CARDIAC SURGERY NURSING DISCHARGE FOLLOW-UP CALL Surgery: CABG AVR Surgeon: Dr. Vogt Patient has reviewed Discharge Instructions / After Visit Summary given at Discharge from Hospital:No OR has Inpatient Rehabilitation Discharge Instructions and reviewed Yes [facility]. THE FOLLOWING INFORMATION HAS BEEN REVIEWED WITH Patient and Coral AT THIS TIME FOLLOWS: Home Health Is Home Health following patient? Yes Pain Rating Tool: Post-Operative Pain/Discomfort: No Intensity: 0 Location: NA Is pain medication relieving pain? NA Discharge Medications Reviewed: Yes Antibiotic Prophylaxis Handout from [employer] reviewed with patient or significantother? [...] Surgery Patients per Discharge Video reviewed: NA (REFRESH):[id number]} Work: Reviewed No work for 6 - [...] for their Cardiac Surgery Follow-up in our [facility] Office with Dr. Villafana appointment confirmed at this time for location, time for check in and chest x-ray check in time. Cardiology Follow-up Appointment made (2-4 weeks or as per Discharge Instructions): If [facility] Transportation Attendant email cardschedule to have them make a follow-up appointment and they will call the patient orask personal secretary to do this. If Private Practice Transportation Attendant ask patient to call and make appointment: [...] EDT Office Visit [facility] Dermatology [address] [place] [address], [place] [address] Cynthia Salinas MD [address] [place] [address], [facility] 5 [place] [address] 07/27/2025 Hospital Encounter [facility] OR [address] [place] [address] Vicki Main MD 111 [facility], [facility] 4 [place] [address] Scheduled Procedures Name Priority Associated Diagnoses Date/Ti me INSERTION, CRANIAL NERVE STIMULATOR CINTHIA (obstructive sleep apnea) documented as of this encounter Visit Diagnoses Not on filedocumented in this encounter Care Teams Incinerator Plant Supervisor Relationship Specialty Start Date End Date Kit Burch MD [facility] [place] [address] PCP - General 01/15/18 10/29/23 documented as of this encounter
--- OUTSIDE RECORDS SUMMARY | 2024-07-25 17:57 | XMS_ITS | Encounter Summary ---
Author Organization [facility] Address [address] [place] [address] Care Team Providers Care Sales And Marketing Manager Name Role Phone Kit Burch MD Primary Care Provider [phone] Reason for Visit * Reason Onset Date Comments Referral Request 04/16/2018 Encounter Details Date Type Department Care Team (Late st Contact Info) Description 04/16/2018 Telephone [facility] Cardiology - [address] [address] Milagro Lozano RN [address] [place] [address] Referral Request Social History Tobacco [...] procedure note, d/c summary and referral for [facility] # provided by [facility] * Telephone Encounter - Che Mart - 04/16/2018 1148 EDT [facility] calling to request that a referral be sent to [facility] Cardiac Rehab # [phone]. States that Milagro Marta needs to order documented in this encounter Plan of Treatment Upcoming Encounters Date Type Department Care Team (Late st Contact Info) Description 03/08/2025 11:00 EDT Office Visit [facility] Dermatology [address] [place] [address], [place] [address] Cynthia Salinas MD [address] [place] [address], [address] [place] [address] 07/27/2025 Hospital Encounter [facility] OR [address] [place] [address] Vicki Main MD 111 [facility], Level [address] [place] [address] Scheduled Procedures Name Priority Associated Diagnoses Date/Ti me INSERTION, CRANIAL NERVE STIMULATOR CINTHIA (obstructive sleep apnea) documented as of this encounter Visit Diagnoses Not on filedocumented in this encounter Care Teams Sales And Marketing Manager Relationship Specialty Start Date End Date Kit Burch MD [address] [place] [address] [address] [place] [address] PCP - General 01/15/18 10/29/23 documented as of this encounter
--- OUTSIDE RECORDS SUMMARY | 2024-07-25 17:57 | XMS_ITS | Encounter Summary ---
Author Organization [facility] Address [address] [place] [address] Care Team Providers Care Line Manager Name Role Phone Kit Burch MD Primary Care Provider [phone] Encounter Details Date Type Department Care Team (Late st Contact Info) Description 04/14/2018 Results Only [facility] Cardiology - [address] [address] Milagro Lozano RN [address] [place], [place] [phone] Social History Tobacco Use Types Packs/Day Years [...] Info) Description 03/08/2025 11:00 EDT Office Visit [facility] Dermatology [address] [place] [address], [place] [address] Cynthia Salinas MD 111 [facility] 5 [place] [address] 07/27/2025 Hospital Encounter [facility] OR [address] [place] [phone] Vicki Main MD 111 [facility], [facility] 4 [place] [phone] Scheduled Procedures Name Priority Associated Diagnoses Date/Ti me INSERTION, CRANIAL NERVE STIMULATOR CINTHIA (obstructive sleep apnea) documented as of this encounter Procedures Procedure Name Priority Date/Time Associated Diagnosis Comments BASIC METABOLIC PANEL (BMP) Routine 04/14/2018 11:59 EDT documented in this encounter Results * BASIC METABOLIC PANEL (BMP) (04/14/2018 11:59 EDT) Sodium 142 136 - 145 mEq/L 04/14/2018 16:34 EDT [facility] Potassium 4.1 3.5 - 5.0 mEq/L 04/14/2018 16:34 EDT [facility] Chloride 103 96 - 110 mEq/L 04/14/2018 16:34 [facility] CO2 31 22 - 32 mEq/L 04/14/2018 16:34 [facility] BUN 20 10 - 26 mg/dl 04/14/2018 16:34 [facility] Creatinine 0.71 0.52 - 1.04 mg/dl 04/14/2018 16:34 [facility] GFR, Calculated 86 >60 ml/min/1.7 3m2 04/14/2018 16:34 [facility] Comment: eGFR calculated using CKD-EPI equation for non Americans. Multiply eGFR by 1.16 for Americans. Calcium 9.5 8.5 - 10.5 mg/dl 04/14/2018 16:34 [facility] Calculated Calcium 9.5 8.5 - 10.5 mg/dl 04/14/2018 16:34 [facility] Glucose, Serum 95 70 - 100 mg/dl 04/14/2018 16:34 [facility] Fasting? Unknown 04/14/2018 16:00 [facility] BLOOD SPECIMEN / Unknown 04/14/2018 11:59 EDT 04/14/2018 16:00 EDT us Milagro Lozano RN CHEMISTRY & BLOOD GAS ORDERABL ES Final Result [facility] [address] [place] [address] documented in this encounter Visit Diagnoses Not on filedocumented in this encounter Care Teams Line Manager Relationship Specialty Start Date End Date Kit Burch MD [facility] [address] [place] [address] PCP - General 01/15/18 10/29/23 documented as of this encounter
--- OUTSIDE RECORDS SUMMARY | 2024-07-25 17:57 | XMS_ITS | Encounter Summary ---
Author Organization [facility] Address [address] [place] [address] Care Team Providers Care Green Prize Packer Name Role Phone Kit Burch MD Primary Care Provider [phone] Reason for Visit * Reason Onset Date Comments Follow-up 05/17/2018 Follow-up 05/24/2018 2nd attempt Encounter Details Date Type Department Care Team (Late st Contact Info) Description 05/17/2018 Telephone [facility] Cardiology - [address] [place] [address] Gilda Bowen RN Follow-up; Follow-up (2nd attempt) Social History [...] left message to return call Liya Anders [[id number]] ??Female - 72 y.o. - [birth year] ?? [...] Dx: Coronary artery disease involving cor... Order: [id number] ? Order Details View Encounter Lab and Collection Details Routing Result History ?? documented in this encounter Plan of Treatment Upcoming Encounters Date Type Department Care Team (Late st Contact Info) Description 03/08/2025 11:00 EDT Office Visit [facility] Dermatology [address] [place] [address], [place] [address] Cynthia Salinas MD [address] [place] [address], [facility] 5 [place] [phone] 07/27/2025 Hospital Encounter [facility] OR [address] [place] [phone] Vicki Main MD 111 [facility], [facility] 4 [place] [address] Scheduled Procedures Name Priority Associated Diagnoses Date/Ti me INSERTION, CRANIAL NERVE STIMULATOR CINTHIA (obstructive sleep apnea) documented as of this encounter Visit Diagnoses Not on filedocumented in this encounter Care Teams Green Prize Packer Relationship Specialty Start Date End Date Kit Burch MD [facility] [address] [facility] [address] [place] [address] PCP - General 01/15/18 10/29/23 documented as of this encounter
--- OUTSIDE RECORDS SUMMARY | 2024-07-25 17:58 | XMS_ITS | Encounter Summary ---
Author Organization [facility] Address [address] [place] [address] Care Team Providers Care Documentation Supervisor Name Role Phone Jewel Fontenot MD Primary Care Provider [phone] Encounter Details Date Type Department Care Team (Late st Contact Info) Description 10/22/2016 Results Only [facility] [phone] Arabella Fajardo MD [place] Location [address] [place] [address] Social History Tobacco Use Types Packs/Day Years Used Date Smoking Tobacco: Never Assessed Comments Unknown Sex and Gender Information Value Date Recorded Sex Assigned at Female 06/14/2024 5:39 EST Legal Sex Female 17:29 EST Gender Identity Female 11/09/2019 12:42 EDT Sexual Orientation Not on file documented as of this encounter Plan of Treatment Upcoming Encounters Date Type Department Care Team (Late st Contact Info) Description 03/08/2025 11:00 EDT Office Visit [facility] [place] [address] [place] [address], [place], [place] [address] Cynthia Salinas MD [address] [place] [address], [facility] 5 [place] [address] 07/27/2025 Hospital Encounter [facility] OR [address] [place] [address] Vicki Main MD [address] [place] [address], [facility] 4 [place] [address] Scheduled Procedures Name Priority Associated [...] - there is no report. Procedure Note GANTRY RIGGER, IMAGING - 12/29/2017 This is an outside study - there is no report. us Arabella Fajardo MD IMG OTHER IMAGING ORDERABLES Final Result documented in this encounter Visit Diagnoses Not on filedocumented in this encounter Care Teams Documentation Supervisor Relationship Specialty Start Date End Date Jewel Fontenot MD [address] [facility] [address] [place] [address] PCP - General 06/01/15 01/14/18 documented as of this encounter
--- OUTSIDE RECORDS SUMMARY | 2024-07-25 17:58 | XMS_ITS | Encounter Summary ---
Author Organization [facility] Address [address] [place] [address] Care Team Providers Care Host Hostess Name Role Phone Kit Burch MD Primary Care Provider Reason for Visit * Reason Onset Date Comments Other 02/09/2018 Encounter Details Date Type Department Care Team (Late st Contact Info) Description 02/09/2018 Telephone [facility] Cardiothoracic Surgery - [facility] [address] [place] [address] Sharla Clements RN [address] [place] [address] Other Social History Tobacco Use Types Packs/Day [...] if you have any questions at or 9592. Verbalized understanding. documented in this encounter Plan of Treatment Upcoming Encounters Date Type Department Care Team (Late st Contact Info) Description 03/08/2025 11:00 EDT Office Visit [facility] Dermatology [address] [facility], [place] [address] Cynthia Salinas MD 111 [facility], [facility] 5 [place] [phone] 07/27/2025 Hospital Encounter [facility] [place] [address] [place] [address] Vicki Main MD 111 [facility], [facility] 4 [place] [address] Scheduled Procedures Name Priority Associated Diagnoses Date/Ti me INSERTION, CRANIAL NERVE STIMULATOR CINTHIA (obstructive sleep apnea) documented as of this encounter Visit Diagnoses Not on filedocumented in this encounter Care Teams Host Hostess Relationship Specialty Start Date End Date Kit Burch MD [facility] [address] [place] [phone] PCP - General 01/15/18 10/29/23 documented as of this encounter
--- OUTSIDE RECORDS SUMMARY | 2024-07-25 17:58 | XMS_ITS | Encounter Summary ---
Author Organization [facility] Address [address] [place] [address] Care Team Providers Care Neonatal Surgeon Name Role Phone Kit Burch MD Primary Care Provider [phone] Reason for Referral * Cardiology (Routine) - New Request Specialty Diagnoses / Procedures Referred By Contac t Referred To Contact Diagnoses Moderate aortic stenosis Procedures LEFT HEART CATH Tyrell Vogt MD Referral ID Status Reason Start Date Expiration Date V isits Requested Visits Authorized [id number] New Request 01/19/2018 1 1 * Radiology Services (Routine) - New Request Specialty Diagnoses / Procedures Referred By Contac t Referred To Contact Diagnoses Moderate aortic stenosis Procedures CHEST PA AND LATERAL Tyrell Vogt MD Referral ID Status Reason Start Date Expiration Date V isits Requested Visits Authorized [id number] New Request 01/19/2018 1 1 Reason for [...] Expiration Date Visits Re quested Visits Authorized [id number] Closed 1 1 Encounter Details Date Type Department Care Team (Latest Contact Info) Description 01/19/2018 8:30 EDT Office Visit [facility] Cardiothoracic Surgery - [place] [address] [place], [place] [address] Tyrell Vogt MD Moderate aortic stenosis (Primary [...] will need a cardiac cath here at [facility]. We will notify you of the date [...] artery stenosis, then I would ask the splicer apprentice to place a stent at the time of her cardiac catheterization. The STS risk calculator was discussed with the patient and her mortality is 1.236% and the mortality and morbidity is 9.991% PLAN: 1. Routine pre-operative workup in place, cardiac catheterization ordered (if there was a flow limiting coronary artery stenosis, then I would ask the splicer apprentice to place a stent at the time of hercardiac catheterization). 2. To OR on 02/15 for aortic valve replacement (perceval - bovine) . Tyrell Vogt MD documented in this encounter Plan of Treatment Upcoming Encounters Date Type Department Care Team (Late st Contact Info) Description 03/08/2025 11:00 EDT Office Visit [facility] Dermatology [address] [facility], [place] [address] Cynthia Salinas MD [address] [place] [address], Level [address] [place] [phone] 07/27/2025 Hospital Encounter [facility] OR [address] [place] [address] Vicki Main MD 111 [facility], Level [address] [place] [phone] Scheduled Procedures Name Priority Associated Diagnoses Date/Ti [...] 8 EDT Narrative 02/10/2018 9:44 EDT Cardiology [address] [place] [address] Catheterization Laboratory Study Patient: Liya Anders ?Study Date: ? 02/08/2018 ? Accession #: ?[id number] : ? 1945 Referring: Kit Burch MD [...] Note Yonatan Arellano MD - 02/10/[address] [place] [address] Catheterization Laboratory Study Patient: Liya Anders Study [...] signed by Yonatan Arellano MD 2018-02-10 09:44 us Tyrell Vogt MD CARDIAC CATH ORDERABLES F inal Result * CHEST PA AND LATERAL (01/19/2018 10:14 EDT) Anatomical Region Laterality Modality Other 01/19/2018 10:1 4 EDT 01/19/2018 10:21 EDT Narrative 01/19/2018 10:21 EDT CHEST 2 VIEWS ??01/19/2018 10:14 AM Clinical History/Comments: I35.0-Nonrheumatic aortic (valve) [id number]; mod-severe , pre-op AVR COMPARISON: None Findings: [...] 10:14 AM Clinical History/Comments: I35.0-Nonrheumatic aortic (valve) [id number]; mod-severe , pre-op AVR COMPARISON: None Findings: PA and lateral views of the chest and dual technique show lungs grossly clear. Heart and mediastinal contours without significant finding. Moderate degenerative changes of the thoracic spine noted, no compression deformities. No consolidation, pulmonary vascular congestion or pleural effusion. IMPRESSION: Satisfactory preoperative chest radiographs. Tyrell Vogt MD IMG DIAGNOSTIC IMAGING OR DERABLES Final Result documented in this encounter Visit Diagnoses Diagnosis Moderate aortic stenosis- Primary Aortic valve disorders documented in this encounter Historical Medications * This list may reflect changes made after this encounter. sertraline (ZOLOFT) 100 mg tablet Take 1 Tablet by mouth daily. furosemide (LASIX) 20 mg tablet Take 1 Tablet by mouth 2 times daily. simvastatin (ZOCOR) 20 mg tablet Take 1 Tablet by mouth every evening. cyanocobalamin (VITAMIN B-12) 100 mcg tablet Take 25 Tablets by mouth daily. calcium carbonate (TUMS) 200 mg calcium (500 mg) tablet,chewable Take 1 Tablet by mouth 4 times daily as needed. ascorbic acid, vitamin C, (VITAMIN C) 500 mg tablet Take 1 Tablet by mouth if needed. aspirin chewable 81 mg tablet Take 1 Tablet by mouth every morning. chrm/vineg/bit-ora ng peel/gr t (APPLE CIDER VINEGAR PLUS ORAL) Take 2 Tablets by mouth daily. krill oil 500 mg capsule Take by mouth daily. Fish oil Zinc Acetate, Oral, 50 mg (zinc) capsule Take by mouth daily. calcium/magnesium (CALCIUM AND MAGNESIUM ORAL) Take by mouth daily. levothyroxine (SYNTHROID) 125 mcg tablet Take 1 Tablet by mouth daily. 4 lisinopril (PRINIVIL, ZESTRIL) 20 mg tablet Take 20 mg by mouth daily. 8 traMADol (ULTRAM) 50 mg tablet Take 50 mg by mouth every 6 hours as needed for Pain. 8 coconut oil 1,000 mg capsule Take by mouth. 4 Aloe Vera 25 mg capsule Take by mouth. 4 Cinnamon Bark 500 mg capsule Take by mouth. 4 mv-min/iron/folic/ calcium/vitK (WOMEN'S MULTIVITAMIN ORAL) Take by mouth. 8 cranberry fruit extract (CRANBERRY ORAL) Take by mouth. 4 tocopheryl acetate (VITAMIN E) 200 unit capsule Take 1 Capsule by mouth daily. 4 added in this encounter Care Teams Neonatal Surgeon Relationship Specialty Start Date End Date Kit Burch MD [facility] [employer] [address] [place] [address] PCP - General 01/15/18 10/29/23 documented as of this encounter
--- OUTSIDE RECORDS SUMMARY | 2024-07-25 17:58 | XMS_ITS | Encounter Summary ---
Author Organization [facility] Address [address] [place] [address] Care Team Providers Care Lining Printer Name Role Phone Kit Burch MD Primary Care Provider [phone] Reason for Visit * Reason Onset Date Comments Confirmation 02/19/2018 Encounter Details Date Type Department Care Team (Late st Contact Info) Description 02/19/2018 Telephone [facility] Cardiothoracic Surgery - [address] [phone] Chaya Medrano RN Confirmation Social History Tobacco [...] was reviewed: Surgery Date: 02/19/18 Surgery Time: 0725 Check In Time: 0600 Surgery to be Performed: AVR Tissue Perceval [...] where howevertwo cell phones (her cell phone) [phone] (daughter cell) [phone] Plan: As above Patient verbalized understanding of Pre-Operative Confirmation Call Information. No barriers to learning identified: Yes * Telephone Encounter - Martha Rodriguez - 02/19/2018 1120 EDT Daughter returning call to CT Surgery RN. Requesting return call to [phone]. * Telephone Encounter - Chaya Medrano RN [...] Info) Description 03/08/2025 11:00 EDT Office Visit [facility] Dermatology [address] [facility], [place] [address] Cynthia Salinas MD 111 [facility], [facility] 5 [place] [address] 07/27/2025 Hospital Encounter [facility] OR [address] [place] [address] Vicki Main MD 111 [facility], [facility] 4 [place] [address] Scheduled Procedures Name Priority Associated Diagnoses Date/Ti me INSERTION, CRANIAL NERVE STIMULATOR CINTHIA (obstructive sleep apnea) documented as of this encounter Visit Diagnoses Not on filedocumented in this encounter Care Teams Lining Printer Relationship Specialty Start Date End Date Kit Burch MD [facility] [facility] [address] [place] [address] PCP - General 01/15/18 10/29/23 documented as of this encounter
--- OUTSIDE RECORDS SUMMARY | 2024-07-25 17:58 | XMS_ITS | Encounter Summary ---
Author Organization [facility] Address [address] [place] [address] Care Team Providers Care English As A Second Language Instructor Name Role Phone Unavailable Primary Care Provider Unavailabl e Encounter Details Date Type Department Care Team (Late st Contact Info) Description 06/09/2006 Results Only [facility] [place] [address] [place], [place] [phone] Arabella Fajardo MD [place] Location [address] [place] [address] Social History Tobacco Use Types Packs/Day Years [...] EDT Office Visit [facility] Dermatology [address] [place] [address], [place], [place] [phone] Cynthia Salinas MD [address] [place] [address], [facility] 5 [place] [address] 07/27/2025 Hospital Encounter [facility] OR [address] [place] [phone] Vicki Main MD [address] [place] [address], [facility] 4 [place] [address] Scheduled Procedures Name Priority Associated [...] LAB 06/09/2006 7:53 EST 06/09/2006 21:56 EST us Arabella Fajardo MD CHEMISTRY & BLOOD GAS ORDERAB LES Final Result [facility] [address] [place] [address] documented in this encounter Visit Diagnoses Not on filedocumented in this encounter
--- OUTSIDE RECORDS SUMMARY | 2024-07-25 17:58 | XMS_ITS | Encounter Summary ---
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 chrm/vineg/bit-o rang peel/gr t (APPLE CIDER VINEGAR PLUS ORAL) Take 2 Tablets by mouth daily. cyanocobalamin (VITAMIN B-12) 100 mcg tablet Take 25 Tablets by mouth daily. furosemide (LASIX) 20 mg tablet Take 1 Tablet by mouth 2 times daily. krill oil 500 mg capsule Take by mouth daily. Fish oil sertraline (ZOLOFT) 100 mg tablet Take 1 Tablet by mouth daily. simvastatin (ZOCOR) 20 mg tablet Take 1 Tablet by mouth every evening. Zinc Acetate, Oral, 50 mg (zinc) capsule Take by mouth daily. Aloe Vera 25 mg capsule Take by mouth. 4 Chlorhexidine Gluconate 2 % liquid Use once daily beginning 5 days prior to surgery if test results positive. The physician's office will call to tell you if you need to fill this prescription. 1 Bottle 02/08/2018 8 Cinnamon Bark 500 mg capsule Take by mouth. 4 coconut oil 1,000 mg capsule Take by mouth. 4 cranberry fruit extract (CRANBERRY ORAL) Take by mouth. 4 docusate sodium (COLACE) 100 mg capsule Take 2 Caps by mouth 2 times daily. 02/27/2018 8 levothyroxine (SYNTHROID) 125 mcg tablet Take 1 Tablet by mouth daily. 4 lisinopril (PRINIVIL, ZESTRIL) 20 mg tablet Take 20 mg by mouth daily. 8 metoprolol tartrate 75 mg tablet Take 75 mg by mouth 2 times daily for 7 days. 14 Tab 02/27/2018 8 mupirocin (BACTROBAN) 2 % ointment Apply both nostrils twice a day for 5 days prior to surgery if test results positive. The physician's office will call to tell you if you need to fill this prescription. 22 g 02/08/2018 8 potassium chloride SA (K-DUR, KLOR-CON) 10 mEq tablet Take 1 Tab by mouth 2 times daily for 7 days. 14 Tab 02/27/2018 8 tocopheryl acetate (VITAMIN E) 200 unit capsule Take 1 Capsule by mouth daily. 4 traMADol (ULTRAM) 50 mg tablet Take 1 Tab by mouth every 6 hours as needed for up to 7 days for Pain. Daily Max: 200 mg 14 Tab 02/27/2018 8 traMADol (ULTRAM) 50 mg tablet Take 50 mg by mouth every 6 hours as needed for Pain. 8 documented as of this encounter Ordered Prescriptions Prescription Sig Dispense Quantity Refills Last Filled Start Date End Date Chlorhexidine Gluconate 2 % liquid Use once daily beginning 5 days prior to surgery if test results positive. The physician's office will call to tell you if you need to fill this prescription. 1 Bottle 02/08/2018 8 mupirocin (BACTROBAN) 2 % ointment Apply both nostrils twice a day for 5 days prior to surgery if test results positive. The physician's office will call to tell you if you need to fill this prescription. 22 g 02/08/2018 8 documented in this encounter Discharge Disposition Disposition Code Departure Means Destination Home or Self Care documented in this encounter Progress Notes * Keely Luciano RN - 02/08/2018 1216 EDT Troy Silva [...] Time completed, meets disch criteria. * Jess May, STACIE - 02/08/2018 0936 EDT Troy Francisco Shira arrived to the Cardiovascular Unit via hospital wheel chair. Patient alert and oriented x3. Transfers to stretcher independently. Patient greeted and identified per [facility] policy. Allergies and procedure verified & patient oriented to Unit. Reviewed all pre-procedure instructions with Troy Silva. All questions answered & patient verbalizes willingness and understanding of pre-procedure education. Patient stretcher in low position with side rails up & call wright within patient reach. Patient's daughter is at bedside. * Bella Valdes, RN - 02/03/2018 1011 EDT Precardiac Cath Nursing Checklist Recent Labs: No results found for: BUN, CREATININE, HGB, CALCGFR Hgt: Height: (!) 144.8 cm (57) Wgt:Weight : 86.6 kg (191 lb) Allergies: No Known Allergies Local Pharmacy [facility] [address] [facility], [place] - [address] [facility] [address] Cardiac History: Stress Test? No Reason for Cath: aortic stenosis Pre op AVR Anginal equivalent:: SOB/JONES, fatigue Cardiac Procedures: no Cardiac surgery: no Medical/Surgical History: Patient has a past medical history of Aortic stenosis; Depression; Endometrial cancer (HCC-CMS); Hyperlipidemia; Hypertension; Hypothyroid; and CINTHIA (obstructive sleep [...] instructed to register on the 3rd floor [facility]. Transportation Issues: No Patient/family instructed that they will need a designated stake driver if they are discharged on the dayof the procedure. Medications: Medication list: Patient/family instructed to bring medication list with them on the day of the procedure. Anticoagulants/Antiplatelets: Takes Aspirin 81 mg daily Anti-Anginal meds: NA BELLA VALDES RN * Bella Valdes RN - 01/28/2018 1227 EDT Images from the original note were not included. [facility] Cardiology Services [address] [place] [address] Madiha Nickerson, Here is important information regarding your upcoming Cardiac Catheterization procedure. Feel free to call with any questions or concerns. We will ensure we have prior authorization from your insurance company, if needed, for your procedure and notify you if there are any issues. Please make sure you copy and paste this link into your web browser in order to read it. [email or web address] Procedure Date: February 08, 2018 Check in [...] go home you will need a designated stake driver or a responsible adult to accompany [...] any elevator to the 3rd floor registration. Speech And Hearing Director parking is also available at the Main Entrance. The registration staff will direct you to the Cardiovascular Unit waiting room. Please check in with the vp director of creative strategy and they will notify of your arrival. [...] to call anyone listed below with questions. Jelena Cath Acds Block 1 Operator - [phone] Shireen Valdes senior hris analyst Testing Nurse- [phone] Please make sure you copy and paste this link into your web browser in order to read it Patients & Visitors Information [email or web address] Hotels & Lodging Information [email or web address] documented in this encounter H&P Notes * Mynor Harrell - 02/07/2018 1456 EDT Cardiology H&P Admit Date: 02/08/2018 PCP: Kit Burch CC: [facility] HPI: Troy Silva is a 72 y.o. female with a PMH significant for severe , HLD, HTN, hypothyroidhere for [facility] for preop eval for SAVR. No chest [...] severe , HLD, HTN, hypothyroid here for [facility] for preop eval for SAVR Plan: Left heart catheterization to evaluate coronary anatomy and hemodynamics No noted contra-indications to LHC or YANIRA PCI Mynor Harrell, PGY-4 Product Safety Manager Cosigned by Yonatan Arellano MD at 02/08/2018 12:14 EDT Associated attestation - Yonatan Arellano MD - [...] cm. Procedure: She was brought to [facility] Cardiac Catheterization Laboratory for the procedure: [...] review with family Yonatan Arellano MD PagerNumber: [phone] 02/08/2018 12:14 documented in this encounter Consult Notes * Tyrell Vogt MD - 02/08/2018 6337 EDT Cardiothoracic Surgery Consult Chief Complaint: Shortness of breath and tiredness HPI: Our service was asked by Dr. De Dios to consult on Troy Silva for consideration of cardiac surgery. The [...] Office Visit [facility] Dermatology [address] [facility], [place], [place] [address] Cynthia Salinas MD [address] [place] [address], [facility] [address] [place] [address] 07/27/2025 Hospital Encounter [facility] OR [address] [place] [address] Vicki Main MD [address] [place] [address], [address] [place] [phone] (work) Scheduled Procedures Name Priority Associated Diagnoses Date/Ti me INSERTION, CRANIAL NERVE STIMULATOR CINTHIA (obstructive sleep apnea) documented as of this encounter Procedures Procedure Name Priority Date/Time Associated Diagnosis Comments ECG REPORT - SCANNED 02/11/2018 8:56 EDT ECG REPORT - SCANNED 02/11/2018 8:42 EDT ECG REPORT - SCANNED 02/11/2018 8:42 EDT PRE-OP TYPE AND SCREEN Routine 02/08/2018 13:53 EDT 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, unspecified vessel or lesion type (HCC-CMS) Nonrheumatic aortic valve stenosis MRSA PCR Routine 02/08/2018 13:39 EDT 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, unspecified vessel or lesion type (HCC-CMS) Nonrheumatic aortic valve stenosis EKG 12-LEAD Routine 02/08/2018 9:53 EDT PROTIME STAT 02/08/2018 9:46 EDT COMPLETE BLOOD COUNT STAT 02/08/2018 9:46 EDT BUN STAT 02/08/2018 9:46 EDT CREATININE STAT 02/08/2018 9:46 EDT ELECTROLYTES STAT 02/08/2018 9:46 EDT documented in this encounter Results * ECG REPORT - SCANNED (02/11/2018 8:56 EDT) 02/11/2018 8:56 EDT us Scan 2 Manufacturing Intern PROCEDURE/MINOR SURGICAL OR DERABLES Final Result * ECG REPORT - SCANNED (02/11/2018 8:42 EDT) 02/11/2018 8:42 EDT us Scan 2 Manufacturing Intern PROCEDURE/MINOR SURGICAL OR DERABLES Final Result * ECG REPORT - SCANNED (02/11/2018 8:42 EDT) 02/11/2018 8:42 EDT us Scan 2 Manufacturing Intern PROCEDURE/MINOR SURGICAL OR DERABLES Final Result * PRE-OP BLOOD BANK DRAW (02/08/2018 13:53 EDT) Pre-Op Blood Bank Lab Draw SPECIMEN RECEIVED ACCEPTABLE 02/08/2018 16:46 EDT [facility] BLOOD SPECIMEN / Unknown 02/08/2018 13:53 EDT 02/08/2018 15:01 EDT us Tyrell Vogt MD BLOOD BANK TESTS Final Re sult Performing Organization Address [facility] Co de Phone Number [facility] [address] [place] [address] * MRSA PCR (02/08/2018 13:39 EDT) Result No Staphylococcus aureus detected by PCR. 02/08/2018 23:02 EDT [facility] Specimen of unknown material (specimen) NASAL ROUTE / Unknown 02/08/2018 13:39 EDT 02/08/2018 16:15 EDT us Tyrell Vogt MD MICROBIOLOGY - GENERAL OR DERABLES Final Result Performing Organization Address [facility] Co de Phone Number [facility] [address] [place] [address] * EKG 12-LEAD (02/08/2018 9:53 EDT) 02/08/2018 9:53 EDT Narrative [facility] EKG - 02/11/2018 8:51 EDT ? [facility] ? Test Date: ?2018-02-08 Pat Name: ? TROY SHIRA ? Department: ?? CVU ? Room: ? CVU36 Gender: ? Female ? Terrazzo Mechanic Helper: ?? [id number] : ?1945 ? Requested By: AZARBAL AMIR Order Number: [id number] ? Reading MD: ?? BOB MARCE MD ? Measurements Intervals ?[place] ? Rate: ? 91 ? P: ?4 ID: ? [id number] ?QRS: ?19 QRSD: ? 71 [...] Bob Zheng Jr., MD - 02/11/2018 [facility] Test Date: 2018-02-08 Pat Name: TROY SILVA Department: CVU Room: [facility] Gender: Female Terrazzo Mechanic Helper: [id number] : 1945 Requested By: ELEAZAR HERNANDEZ Order Number: [id number] Reading MD: BOB ZHENG MD Measurements Intervals [place] Rate: 91 P: 4 ID: 173 QRS: 19 QRSD: 71 T: 123 QT: 359 QTc: 443 Interpretive Statements SINUS RHYTHM ST DEVIATION AND MODERATE T-WAVE ABNORMALITY, CONSIDER LATERAL ISCHEMIA No previous ECG available for comparison I reviewed the tracing and have either agreed or edited the findings inthis report. Electronically Signed On 02-11-2018 8:51:25 EDT by BOB SHAH. Marcela Hartley MD CARDIAC ECG ORDERABLES Final Res ult [facility] EKG * PROTIME (02/08/2018 9:46 EDT) Pro Time 11.8 10.3 - 13.4 secs 02/08/2018 10:44 EDT [facility] I.N.R. 1.0 0.9 - 1.1 Ratio 02/08/2018 10:44 EDT [facility] Comment: Moderate Intensity Coumadin INR = 2.0-3.0 Adjustments in anticoagulant therapy dose should be based upon the INR and NOT the Pro Time. Blood specimen (specimen) BLOOD SPECIMEN / Unknown 02/08/2018 9:46 EDT 02/08/2018 10:15 EDT Marcela Hartley MD HEMATOLOGY & PF4 ORDERABLES Mely carmona Result [facility] [address] [place] [address] * (ABNORMAL) COMPLETE BLOOD COUNT (02/08/2018 9:46 EDT) WBC 10.71 4.0 - 12.4 K/cmm 02/08/2018 11:45 [facility] RBC 3.82(L) 3.86 - 5.04 M/cmm 02/08/2018 11:45 [facility] Hemoglobin 13.1 11.6 - 15.2 gm/dl 02/08/2018 11:45 [facility] HCT 38.4 34.9 - 44.4 % 02/08/2018 11:45 [facility] MCV 101(H) 81 - 98 fl 02/08/2018 11:45 [facility] MCH 34.3(H) 26.7 - 33.3 pg 02/08/2018 11:45 [facility] MCHC 34.1 32.1 - 35.9 gm/dl 02/08/2018 11:45 [facility] RDW-CV 13.1 <14.7 % 02/08/2018 11:45 [facility] RDW-SD 47.8 <50.4 fl 02/08/2018 11:45 [facility] PLT 243 141 - 377 K/cmm 02/08/2018 11:45 [facility] MPV 11.4 9.5 - 12.7 fl 02/08/2018 11:45 [facility] Blood specimen (specimen) BLOOD SPECIMEN / Unknown 02/08/2018 9:46 EDT 02/08/2018 10:15 EDT us Marcela Hartley MD HEMATOLOGY & PF4 ORDERABLES Mely l Result [facility] [address] [place] [address] * ELECTROLYTES (02/08/2018 9:46 EDT) Sodium 140 136 - 145 mEq/L 02/08/2018 10:38 EDT [facility] Potassium 4.0 3.5 - 5.0 mEq/L 02/08/2018 10:38 EDT [facility] Chloride 103 96 - 110 mEq/L 02/08/2018 10:38 EDT [facility] CO2 29 22 - 32 mEq/L 02/08/2018 10:38 EDT [facility] Blood specimen (specimen) BLOOD SPECIMEN / Unknown 02/08/2018 9:46 EDT 02/08/2018 10:15 EDT Result [facility] us Marcela Hartley MD CHEMISTRY & BLOOD GAS ORDERABLES Final Result Performing Organization Address [facility]/ZIP Co de Phone Number [facility] [address] [place] [address] * CREATININE (02/08/2018 9:46 EDT) Creatinine 0.69 0.52 - 1.04 mg/dl 02/08/2018 10:38 EDT [facility] GFR, Calculated 88 >60 ml/min/1.7 3m2 02/08/2018 10:38 EDT [facility] Comment: eGFR calculated using CKD-EPI equation for non Americans. Multiply eGFR by 1.16 for Americans. Blood specimen (specimen) BLOOD SPECIMEN / Unknown 02/08/2018 9:46 EDT 02/08/2018 10:15 EDT us Marcela Hartley MD CHEMISTRY & BLOOD GAS ORDERABLES Final Result Performing Organization Address City/[facility]/ZIP Co de Phone Number [facility] [address] [place] [address] * BUN (02/08/2018 9:46 EDT) BUN 15 10 - 26 mg/dl 02/08/2018 10:38 EDT [facility] Blood specimen (specimen) BLOOD SPECIMEN / Unknown 02/08/2018 9:46 EDT 02/08/2018 10:15 EDT Marcela Hartley MD CHEMISTRY & BLOOD GAS ORDERABLES Final Result [facility] [address] [place] [address] documented in this encounter Visit Diagnoses Diagnosis 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
--- OUTSIDE RECORDS SUMMARY | 2024-07-25 17:58 | XMS_ITS | Encounter Summary ---
Author Organization [facility] Address [address] [place] [address] Care Team Providers Care Shearing Supervisor Name Role Phone Kit Burch MD Primary Care Provider Encounter Details Date Type Department Care Team (Late st Contact Info) Description 02/08/2018 Results Only [facility] Cardiothoracic Surgery - [address] [address] Tyrell Vogt MD Social History Tobacco Use [...] Info) Description 03/08/2025 11:00 EDT Office Visit [facility] Dermatology [address] [place] [address], [place], [place] [address] Cynthia Salinas MD [address] [place] [address] [address] [place] [address] 07/27/2025 Hospital Encounter [facility] OR [address] [place] [address] Vicki Main MD [address] [place] [address], [facility] [address] [place] [phone] Scheduled Procedures Name Priority Associated Diagnoses Date/Ti [...] BLOOD CELLS (02/08/2018 16:28 EDT) Product Code C2670U93 [facility] BLOOD BANK Donor Number [id number] [facility] BLOOD [facility] Unit ABO O [facility] Unit Rh POS [facility] Unit Status RE^Released From [facility] BLOOD BANK Product Expiration Date [facility] BLOOD [facility] Unit Blood Type Code 5100 [facility] Coding System [id number] [facility] BLOOD BANK 02/08/2018 16:2 8 EDT us Tyrell Vogt MD BLOOD BANK ORDERABLES Fin al Result Performing Organization Address City/State/[facility] Co de Phone Number [facility] BLOOD BANK [address] [place] [address] * PREPARE RED BLOOD CELLS (02/08/2018 16:28 EDT) Product Code [id number] [facility] BLOOD BANK Donor Number [id number] [facility] BLOOD BANK Unit ABO O [facility] Unit Rh POS [facility] Unit Status RE^Released From [facility] BLOOD BANK Product Expiration Date [id number] [facility] BLOOD [facility] Unit Blood Type Code 5100 [facility] BLOOD [facility] Coding System [id number] [facility] BLOOD BANK 02/08/2018 16:2 8 EDT us Tyrell Vogt MD BLOOD BANK ORDERABLES Fin al Result [facility] BLOOD [facility]ANK [address] [place] [address] * TYPE AND SCREEN (02/08/2018 14:54 EDT) Antibody Screen Negative [facility] BLOOD [facility] Specimen Expires: 02/25/2018 @ 23:59 [facility] BLOOD [facility] ABO O [facility] BLOOD BANK Rh Factor Positive [facility] BLOOD BANK 02/08/2018 14:5 4 EDT us Tyrell Vogt MD BLOOD BANK TESTS Final Re sult Performing Organization Address [facility] Co de Phone Number [facility] BLOOD BANK [address] [place], [place] [id number] documented in this encounter Visit Diagnoses Not on filedocumented in this encounter Care Teams Shearing Supervisor Relationship Specialty Start Date End Date Kit Burch MD [facility] [address] [place] [phone] PCP - General 01/15/18 10/29/23 documented as of this encounter
--- OUTSIDE RECORDS SUMMARY | 2024-07-25 17:58 | XMS_ITS | Encounter Summary ---
Author Organization [facility] Address [address] [place] [address] Care Team Providers Care Assistant Plant Controller Name Role Phone Jewel Fontenot MD Primary Care Provider [phone] Encounter Details Date Type Department Care Team (Late st Contact Info) Description 11/23/2017 Results Only [facility] [phone] Arabella Fajardo MD [place] Location [address] [place] [address] Social History Tobacco Use Types Packs/Day Years [...] Info) Description 03/08/2025 11:00 EDT Office Visit [facility] Dermatology [address] [place] [address], [place], [place] [address] Cynthia Salinas MD [address] [place] [address], [facility] [address] [place] [address] 07/27/2025 Hospital Encounter [facility] OR [address] [place] [address] Vicki Main MD [address] [place] [address], [facility] [address] [place] [address] Scheduled Procedures Name Priority Associated [...] - there is no report. Procedure Note BLOCKING MACHINE OPERATOR, IMAGING - 12/29/2017 This is an outside study - there is no report. us Arabella Fajardo MD IMG OTHER IMAGING ORDERABLES Final Result documented in this encounter Visit Diagnoses Not on filedocumented in this encounter Care Teams Assistant Plant Controller Relationship Specialty Start Date End Date Jewel Fontenot MD [address] [facility] [address] [place] [address] PCP - General 06/01/15 01/14/18 documented as of this encounter
--- OUTSIDE RECORDS SUMMARY | 2024-07-25 17:58 | XMS_ITS | Encounter Summary ---
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 2 Area Safety Manager PROCEDURE/MINOR SURGICAL OR DERABLES Final Result * ECG REPORT - SCANNED (03/03/2018 7:23 EDT) 03/03/2018 7:23 EDT us Scan 2 Area Safety Manager PROCEDURE/MINOR SURGICAL OR DERABLES Final Result * IMPLANT RECORD - SCANNED (03/03/2018 7:23 EDT) 03/03/2018 7:23 EDT us Scan 2 Area Safety Manager PROCEDURE/MINOR SURGICAL OR DERABLES Final Result * ECG REPORT - SCANNED (03/01/2018 15:03 EDT) 03/01/2018 15:0 3 EDT us Scan 2 Area Safety Manager PROCEDURE/MINOR SURGICAL OR DERABLES Final Result * (ABNORMAL) GLUCOSE, GLUCOMETER (02/27/2018 7:09 EDT) Glucose, Fingerstick 122(H) 70 - 100 mg/dl 02/27/2018 7:12 EDT [facility] [employer] [place] [id number] 02/27/2018 7:12 EDT [facility] Comment:[facility] BLOOD SPECIMEN / Unknown 02/27/2018 7:09 EDT 02/27/2018 7:12 EDT us Tyrell Vela MD CHEMISTRY & BLOOD GAS ORD ERABLES Final Result [facility] [address] [place] [address] * (ABNORMAL) COMPLETE BLOOD COUNT (02/27/2018 5:56 EDT) WBC 11.88 4.0 - 12.4 K/cmm 02/27/2018 7:16 EDT [facility] RBC 2.82(L) 3.86 - 5.04 M/cmm 02/27/2018 7:16 T [facility] Hemoglobin 9.7(L) 11.6 - 15.2 gm/dl 02/27/2018 7:16 EDT [facility] HCT 28.2(L) 34.9 - 44.4 % 02/27/2018 7:16 T [facility] MCV 100(H) 81 - 98 fl 02/27/2018 7:16 T [facility] MCH 34.4(H) 26.7 - 33.3 pg 02/27/2018 7:16 [facility] MCHC 34.4 32.1 - 35.9 gm/dl 02/27/2018 7:16 [facility] RDW-CV 13.3 <14.7 % 02/27/2018 7:16 [facility] RDW-SD 48.4 <50.4 fl 02/27/2018 7:16 [facility] PLT 113(L) 141 - 377 K/cmm 02/27/2018 7:16 [facility] MPV 12.6 9.5 - 12.7 fl 02/27/2018 7:16 [facility] Blood specimen (specimen) BLOOD SPECIMEN / Unknown 02/27/2018 5:56 EDT 02/27/2018 6:58 EDT us Adryan Beasley MD HEMATOLOGY & PF4 ORDERABLES Final Result [facility] [address] [place] [address] * CREATININE (02/27/2018 5:56 EDT) Creatinine 0.70 0.52 - 1.04 mg/dl 02/27/2018 7:36 EDT [facility] GFR, Calculated 87 >60 ml/min/1.7 3m2 02/27/2018 7:36 T [facility] Comment: eGFR calculated using CKD-EPI equation for non Americans. Multiply eGFR by 1.16 for Americans. Blood specimen (specimen) BLOOD SPECIMEN / Unknown 02/27/2018 5:56 EDT 02/27/2018 6:58 EDT us Adryan Beasley MD CHEMISTRY & BLOOD GAS ORDERA BLES Final Result [facility] [address] [place] [address] * BUN (02/27/2018 5:56 EDT) BUN 20 10 - 26 mg/dl 02/27/2018 7:36 EDT [facility] Blood specimen (specimen) BLOOD SPECIMEN / Unknown 02/27/2018 5:56 EDT 02/27/2018 6:58 EDT us Adryan Beasley MD CHEMISTRY & BLOOD GAS ORDERA BLES Final Result Performing Organization Address [facility] Co de Phone Number [facility] [address] [place] [address] * (ABNORMAL) ELECTROLYTES (02/27/2018 5:56 EDT) Sodium 135(L) 136 - 145 mEq/L 02/27/2018 7:36 EDT [facility] Potassium 3.9 3.5 - 5.0 mEq/L 02/27/2018 7:36 T [facility] Chloride 101 96 - 110 mEq/L 02/27/2018 7:36 T [facility] CO2 28 22 - 32 mEq/L 02/27/2018 7:36 EDT [facility] Blood specimen (specimen) BLOOD SPECIMEN / Unknown 02/27/2018 5:56 EDT 02/27/2018 6:58 EDT us Adryan Beasley MD CHEMISTRY & BLOOD GAS ORDERA BLES Final Result Performing Organization Address [facility]/ZIP Co de Phone Number [facility] [address] [place] [address] * (ABNORMAL) GLUCOSE, GLUCOMETER (02/26/2018 22:01 EDT) Glucose, Fingerstick 175(H) 70 - 100 mg/dl 02/26/2018 22:02 EDT [facility] [employer] ID [id number] 02/26/2018 22:02 EDT [facility] Comment:Test Performed by [facility] BLOOD SPECIMEN / Unknown 02/26/2018 22:01 EDT 02/26/2018 22:02 EDT Tyrell Vela MD CHEMISTRY & BLOOD GAS ORD ERABLES Final Result Performing Organization Address City/[facility]/ZIP Co de Phone Number [facility] [address] [place] [address] * (ABNORMAL) GLUCOSE, GLUCOMETER (02/26/2018 16:40 EDT) Glucose, Fingerstick 116(H) 70 - 100 mg/dl 02/26/2018 16:42 EDT [facility] [employer] ID [id number] 02/26/2018 16:42 EDT [facility] Comment:Test Performed by [facility] Services BLOOD SPECIMEN / Unknown 02/26/2018 16:40 EDT 02/26/2018 16:42 EDT Tyrell Vela MD CHEMISTRY & BLOOD GAS ORD ERABLES Final Result Performing Organization Address City/[facility]/ZIP Co de Phone Number [facility] [address] [place] [address] * (ABNORMAL) GLUCOSE, GLUCOMETER (02/26/2018 11:13 EDT) Glucose, Fingerstick 119(H) 70 - 100 mg/dl 02/26/2018 11:20 EDT [facility] [employer] ID [id number] 02/26/2018 11:20 EDT [facility] Comment:Test Performed by [facility] Services BLOOD SPECIMEN / Unknown 02/26/2018 11:13 EDT 02/26/2018 11:20 EDT Tyrell Vela MD CHEMISTRY & BLOOD GAS ORD ERABLES Final Result [facility] [address] [place] [address] * ECG REPORT - SCANNED (02/26/2018 10:54 EDT) 02/26/2018 10:5 4 EDT us Scan 2 Area Safety Manager PROCEDURE/MINOR SURGICAL OR DERABLES Final Result * ECG REPORT - SCANNED (02/26/2018 10:54 EDT) 02/26/2018 10:5 4 EDT us Scan 2 Area Safety Manager PROCEDURE/MINOR SURGICAL OR DERABLES Final Result * (ABNORMAL) GLUCOSE, GLUCOMETER (02/26/2018 6:28 EDT) Glucose, Fingerstick 128(H) 70 - 100 mg/dl 02/26/2018 6:32 EDT [facility] [place] [id number] 02/26/2018 6:32 T [facility] Comment:Test Performed by [facility] Services BLOOD SPECIMEN / Unknown 02/26/2018 6:28 EDT 02/26/2018 6:32 EDT us Tyrell Vela MD CHEMISTRY & BLOOD GAS ORD ERABLES Final Result [facility] [address] [place] [id number] * (ABNORMAL) COMPLETE BLOOD COUNT (02/26/2018 5:20 EDT) WBC 12.25 4.0 - 12.4 K/cmm 02/26/2018 7:11 [facility] RBC 2.86(L) 3.86 - 5.04 M/cmm 02/26/2018 7:11 [facility] Hemoglobin 9.6(L) 11.6 - 15.2 gm/dl 02/26/2018 7:11 [facility] HCT 28.7(L) 34.9 - 44.4 % 02/26/2018 7:11 [facility] MCV 100(H) 81 - 98 fl 02/26/2018 7:11 [facility] MCH 33.6(H) 26.7 - 33.3 pg 02/26/2018 7:11 EDT [facility] MCHC 33.4 32.1 - 35.9 gm/dl 02/26/2018 7:11 T [facility] RDW-CV 13.2 <14.7 % 02/26/2018 7:11 T [facility] RDW-SD 48.7 <50.4 fl 02/26/2018 7:11 T [facility] PLT 96(L) 141 - 377 K/cmm 02/26/2018 7:11 T [facility] MPV 12.9(H) 9.5 - 12.7 fl 02/26/2018 7:11 EDT [facility] Blood specimen (specimen) BLOOD SPECIMEN / Unknown 02/26/2018 5:20 EDT 02/26/2018 6:57 EDT Result Wood Beasley MD HEMATOLOGY & PF4 ORDERABLES Final Result Performing Organization Address City/[facility]/ZIP Co de Phone Number [facility] [address] [place] [address] * CREATININE (02/26/2018 5:20 EDT) Creatinine 0.58 0.52 - 1.04 mg/dl 02/26/2018 7:28 EDT [facility] GFR, Calculated 93 >60 ml/min/1.7 3m2 02/26/2018 7:28 EDT [facility] Comment: eGFR calculated using CKD-EPI equation for non Americans. Multiply eGFR by 1.16 for Americans. Blood specimen (specimen) BLOOD SPECIMEN / Unknown 02/26/2018 5:20 EDT 02/26/2018 6:57 EDT Result Wood Beasley MD CHEMISTRY & BLOOD GAS ORDERA BLES Final Result Performing Organization Address City/[facility]/ZIP Co de Phone Number [facility] [address] [place] [address] * BUN (02/26/2018 5:20 EDT) BUN 22 10 - 26 mg/dl 02/26/2018 7:28 EDT [facility] Blood specimen (specimen) BLOOD SPECIMEN / Unknown 02/26/2018 5:20 EDT 02/26/2018 6:57 EDT us Adryan Beasley MD CHEMISTRY & BLOOD GAS ORDERA BLES Final Result Performing Organization Address [facility] de Phone Number [facility] [address] [place] [address] * (ABNORMAL) ELECTROLYTES (02/26/2018 5:20 EDT) Sodium 135(L) 136 - 145 mEq/L 02/26/2018 7:28 EDT [facility] Potassium 4.1 3.5 - 5.0 mEq/L 02/26/2018 7:28 EDT [facility] Chloride 102 96 - 110 mEq/L 02/26/2018 7:28 EDT [facility] CO2 27 22 - 32 mEq/L 02/26/2018 7:28 EDT [facility] Blood specimen (specimen) BLOOD SPECIMEN / Unknown 02/26/2018 5:20 EDT 02/26/2018 6:57 EDT us Adryan Beasley MD CHEMISTRY & BLOOD GAS ORDERA BLES Final Result Performing Organization Address [facility] de Phone Number [facility] [address] [place] [address] * (ABNORMAL) GLUCOSE, GLUCOMETER (02/25/2018 21:16 EDT) Glucose, Fingerstick 152(H) 70 - 100 mg/dl 02/25/2018 21:21 EDT [facility] [employer] ID [id number] 02/25/2018 21:21 EDT [facility] Comment:Test Performed by [facility] Services BLOOD SPECIMEN / Unknown 02/25/2018 21:16 EDT 02/25/2018 21:21 EDT us Tyrell Vela MD CHEMISTRY & BLOOD GAS ORD ERABLES Final Result Performing Organization Address City/[facility]/ZIP Co de Phone Number [facility] [address] [place] [address] * (ABNORMAL) GLUCOSE, GLUCOMETER (02/25/2018 16:44 EDT) Glucose, Fingerstick 185(H) 70 - 100 mg/dl 02/25/2018 16:46 EDT [facility] [employer] ID [id number] 02/25/2018 16:46 EDT [facility] Comment:Test Performed by [facility] Services BLOOD SPECIMEN / Unknown 02/25/2018 16:44 EDT 02/25/2018 16:46 EDT us Tyrell Vela MD CHEMISTRY & BLOOD GAS ORD ERABLES Final Result Performing Organization Address City/[facility] Co de Phone Number [facility] [address] [place] [address] * CHEST PA AND LATERAL (02/25/2018 13:18 [...] are intact. Tyrell Vela MD IMG DIAGNOSTIC IMAGING OR DERABLES Final Result * (ABNORMAL) GLUCOSE, GLUCOMETER (02/25/2018 12:12 EDT) Glucose, Fingerstick 135(H) 70 - 100 mg/dl 02/25/2018 12:18 EDT [facility] [employer] ID [id number] 02/25/2018 12:18 EDT [facility] Comment:Test Performed by [employer] BLOOD SPECIMEN / Unknown 02/25/2018 12:12 EDT 02/25/2018 12:18 EDT Tyrell Vela MD CHEMISTRY & BLOOD GAS ORD ERABLES Final Result Performing Organization Address [facility] Co de Phone Number [facility] [address] [place] [address] * (ABNORMAL) GLUCOSE, GLUCOMETER (02/25/2018 9:19 EDT) Glucose, Fingerstick 154(H) 70 - 100 mg/dl 02/25/2018 9:32 EDT [facility] [employer] ID [id number] 02/25/2018 9:32 EDT [facility] Comment:Test Performed by [employer] BLOOD SPECIMEN / Unknown 02/25/2018 9:19 EDT 02/25/2018 9:32 EDT Tyrell Vela MD CHEMISTRY & BLOOD GAS ORD ERABLES Final Result Performing Organization Address City/[facility]/ZIP Co de Phone Number [facility] [address] [place] [address] * HEPARIN PF4 IGG AB (HIT), S (02/25/2018 8:07 EDT) [facility] HIT NITO 0.099 <0.400 OD 02/26/2018 18:43 EDT [facility] Interpretation Negative Negative 02/26/2018 18:43 EDT [facility] Comment (Note) 02/26/2018 18:43 EDT [facility] Comment: Patient serum has [...] This test has been modified from the lap runner's instructions. Its performance characteristics were determined by [facility] in a manner consistent with CLIA requirements. This test has not been cleared or approved by the U.S. Food and Drug Administration. Performed or Referred by: [facility], [place], [facility], [address] [place] [id number], Lab Dir: Jak Cleveland II, M.D., Ph.D. Blood specimen (specimen) BLOOD SPECIMEN / Unknown 02/25/2018 8:07 EDT 02/25/2018 8:13 EDT us Nacho Scales MD HEMATOLOGY & PF4 ORDERABLES Final Result [facility] [address] [place] [address] * GLUCOSE, GLUCOMETER (02/25/2018 8:06 EDT) [facility] Glucose, Fingerstick 78 70 - 100 mg/dl 02/25/2018 8:11 EDT [facility] [employer] ID [id number] 02/25/2018 8:11 EDT [facility] Comment:Test Performed by [facility] Services BLOOD SPECIMEN / Unknown 02/25/2018 8:06 EDT 02/25/2018 8:11 EDT us Tyrell Vela MD CHEMISTRY & BLOOD GAS ORD ERABLES Final Result [facility] [address] [place] [address] * EKG 12-LEAD (02/25/2018 7:33 EDT) 02/25/2018 7:33 EDT Narrative [facility] EKG - 02/26/2018 10:48 EDT ? [facility] ? Test Date: ?2018-02-25 Pat Name: ? TROY ANDERS ? Department: ?? [facility] [address] [place] ? Room: ? SB365 Gender: ? Female ? Music Researcher: ?? : ?1945 ? Requested By: AVE VALDES Order Number: [id number] ? Aliyah WOODS: ?? MARIFER BARKLEY MD ? Measurements Intervals ?[place] ? Rate: ? 103 ?P: ? MN: ? 0 ?QRS: ?-5 QRSD: ? 137 ?T: ?151 QT: ? 407 ? QTc: ?534 ? Interpretive Statements SINUS RHYTHM LEFT BUNDLE BRANCH BLOCK Wide complex tachycardia, likely supraventricular I reviewed the tracing and have either agreed or edited the findings in this report. Electronically Signed On 02-26-2018 10:48:51 EDT by MARIFER BARKLEY MD. Procedure Note Marifer Barkley MD - 02/26/2018 [facility] Test Date: 2018-02-25 Pat Name: TROY ANDERS Department: [address] Room: 365 Gender: Female Music Researcher: : 1945 Requested By: AVE VALDES Order Number: [id number] Reading MD: MARIFER BARKLEY MD Measurements Intervals [place] Rate: 103 P: MN: 0 QRS: -5 QRSD: 137 T: 151 QT: 407 QTc: 534 Interpretive Statements SINUS RHYTHM LEFT BUNDLE BRANCH BLOCK Wide complex tachycardia, likely supraventricular I reviewed the tracing and have either agreed or edited the findings inthis report. Electronically Signed On 02-26-2018 10:48:51 EDT by MARIFER HERNÁNDEZ. us Marquita Jackson MD CARDIAC ECG ORDERA BLES Final Result Performing Organization Address City/[facility]/ZIP Co de Phone Number [facility] EKG * GLUCOSE, GLUCOMETER (02/25/2018 6:21 EDT) Glucose, Fingerstick 93 70 - 100 mg/dl 02/25/2018 6:22 EDT [facility] [employer] ID [id number] 02/25/2018 6:22 EDT [facility] Comment:[facility] BLOOD SPECIMEN / Unknown 02/25/2018 6:21 EDT 02/25/2018 6:22 EDT Tyrell Vela MD CHEMISTRY & BLOOD GAS ORD ERABLES Final Result Performing Organization Address [facility]/ZIP Co de Phone Number [facility] [address] [place] [address] * (ABNORMAL) GLUCOSE, GLUCOMETER (02/25/2018 4:53 EDT) Glucose, Fingerstick 103(H) 70 - 100 mg/dl 02/25/2018 4:55 EDT [facility] [employer] ID [id number] 02/25/2018 4:55 EDT [facility] Comment:[facility] [employer] BLOOD SPECIMEN / Unknown 02/25/2018 4:53 EDT 02/25/2018 4:55 EDT Tyrell Vela MD CHEMISTRY & BLOOD GAS ORD ERABLES Final Result Performing Organization Address City/[facility]/ZIP Co de Phone Number [facility] [address] [place] [address] * (ABNORMAL) GLUCOSE, GLUCOMETER (02/25/2018 2:31 EDT) Glucose, Fingerstick 117(H) 70 - 100 mg/dl 02/25/2018 2:32 EDT [facility] [employer] ID [id number] 02/25/2018 2:32 EDT [facility] Comment:Test Performed by [facility] Services BLOOD SPECIMEN / Unknown 02/25/2018 2:31 EDT 02/25/2018 2:32 EDT Tyrell Vela MD CHEMISTRY & BLOOD GAS ORD ERABLES Final Result [facility] [address] [place] [address] * (ABNORMAL) CALCIUM (02/25/2018 2:15 EDT) [facility] Calcium 8.0(L) 8.5 - 10.5 mg/dl 02/25/2018 2:57 EDT [facility] Calculated Calcium 9.2 8.5 - 10.5 mg/dl 02/25/2018 2:57 EDT [facility] Blood specimen (specimen) BLOOD SPECIMEN / Unknown 02/25/2018 2:15 EDT 02/25/2018 2:23 EDT Marquita Jackson MD CHEMISTRY & BLOOD GAS ORDERABLES Final Result Performing Organization Address [facility]/ZIP Co de Phone Number [facility] [address] [place] [address] * MAGNESIUM (02/25/2018 2:15 EDT) [facility] Magnesium 2.1 1.7 - 2.8 mg/dl 02/25/2018 2:57 EDT [facility] Blood specimen (specimen) BLOOD SPECIMEN / Unknown 02/25/2018 2:15 EDT 02/25/2018 2:23 EDT Marquita Jackson MD CHEMISTRY & BLOOD GAS ORDERABLES Final Result Performing Organization Address City/[facility]/ZIP Co de Phone Number [facility] [address] [place] [address] * (ABNORMAL) COMPLETE BLOOD COUNT (02/25/2018 2:15 EDT) WBC 13.19(H) 4.0 - 12.4 K/cmm 02/25/2018 2:46 EDT [facility] RBC 2.95(L) 3.86 - 5.04 M/cmm 02/25/2018 2:46 [facility] Hemoglobin 10.0(L) 11.6 - 15.2 gm/dl 02/25/2018 2:46 T [facility] HCT 29.2(L) 34.9 - 44.4 % 02/25/2018 2:46 [facility] MCV 99(H) 81 - 98 fl 02/25/2018 2:46 [facility] MCH 33.9(H) 26.7 - 33.3 pg 02/25/2018 2:46 [facility] MCHC 34.2 32.1 - 35.9 gm/dl 02/25/2018 2:46 [facility] RDW-CV 13.5 <14.7 % 02/25/2018 2:46 [facility] RDW-SD 48.9 <50.4 fl 02/25/2018 2:46 [facility] PLT 79(L) 141 - 377 K/cmm 02/25/2018 2:46 [facility] MPV 12.4 9.5 - 12.7 fl 02/25/2018 2:46 [facility] Blood specimen (specimen) BLOOD SPECIMEN / Unknown 02/25/2018 2:15 EDT 02/25/2018 2:23 EDT us Adryan Beasley MD HEMATOLOGY & PF4 ORDERABLES Final Result [facility] [address] [place] [address] * CREATININE (02/25/2018 2:15 EDT) Creatinine 0.63 0.52 - 1.04 mg/dl 02/25/2018 2:57 EDT [facility] GFR, Calculated 91 >60 ml/min/1.7 3m2 02/25/2018 2:57 EDT [facility] Comment: eGFR calculated using CKD-EPI equation for non Americans. Multiply eGFR by 1.16 for Americans. Blood specimen (specimen) BLOOD SPECIMEN / Unknown 02/25/2018 2:15 EDT 02/25/2018 2:23 EDT us Adryan Beasley MD CHEMISTRY & BLOOD GAS ORDERA BLES Final Result Performing Organization Address [facility] Co de Phone Number [facility] [address] [place] [address] * BUN (02/25/2018 2:15 EDT) BUN 20 10 - 26 mg/dl 02/25/2018 2:57 EDT [facility] Blood specimen (specimen) BLOOD SPECIMEN / Unknown 02/25/2018 2:15 EDT 02/25/2018 2:23 EDT us Adryan Beasley MD CHEMISTRY & BLOOD GAS ORDERA BLES Final Result Performing Organization Address [facility] de Phone Number [facility] [address] [place] [address] * (ABNORMAL) ELECTROLYTES (02/25/2018 2:15 EDT) Sodium 135(L) 136 - 145 mEq/L 02/25/2018 2:57 EDT [facility] Potassium 4.1 3.5 - 5.0 mEq/L 02/25/2018 2:57 EDT [facility] Chloride 105 96 - 110 mEq/L 02/25/2018 2:57 EDT [facility] CO2 26 22 - 32 mEq/L 02/25/2018 2:57 EDT [facility] Blood specimen (specimen) BLOOD SPECIMEN / Unknown 02/25/2018 2:15 EDT 02/25/2018 2:23 EDT us Adryan Beasley MD CHEMISTRY & BLOOD GAS MARIAN BLES Final Result [facility] [address] [place] [address] * EKG 12-LEAD (02/25/2018 2:01 EDT) 02/25/2018 2:01 EDT Narrative [facility] EKG - 02/26/2018 10:49 EDT ? [facility] ? Test Date: ?2018-02-25 Pat Name: ? TROY ANDERS ? Department: ?? [facility] [address] [place] ? Room: ? SB365 Gender: ? Female ? Music Researcher: ?? [id number] : ?1945 ? Requested By: DANE Witt Order Number: [id number] ? Aliyah WOODS: ?? MARIFER BARKLEY MD ? Measurements Intervals ?[place] ? Rate: ? 88 ? P: ?28 MN: ? 198 ?QRS: ?-4 QRSD: ? 140 ?T: ?160 QT: ? 378 ? QTc: ?458 ? Interpretive Statements SINUS RHYTHM WITH FREQUENT SUPRAVENTRICULAR PREMATURE COMPLEXES Left bundle branch block I reviewed the tracing and have either agreed or edited the findings in this report. Electronically Signed On 02-26-2018 10:49:28 EDT by MARIFER BARKLEY MD. Procedure Note Marifer Barkley MD - 02/26/2018 [facility] Test Date: 2018-02-25 Pat Name: TROY ANDERS Department: [address] Room: [facility] [facility] Gender: Female Music Researcher: [id number] : 1945 Requested By: DANE Witt Order Number: [id number] Reading MD: MARIFER BARKLEY MD Measurements Intervals [place] Rate: 88 P: 28 MN: 198 QRS: -4 QRSD: 140 T: 160 QT: 378 QTc: 458 Interpretive Statements SINUS RHYTHM WITH FREQUENT SUPRAVENTRICULAR PREMATURE COMPLEXES Left bundle branch block I reviewed the tracing and have either agreed or edited the findings inthis report. Electronically Signed On 02-26-2018 10:49:28 EDT by AMRIFER HERNÁNDEZ. us Tyrell Vela MD CARDIAC ECG ORDERABLES Fi nal Result [facility] EKG * (ABNORMAL) GLUCOSE, GLUCOMETER (02/25/2018 0:59 EDT) Glucose, Fingerstick 111(H) 70 - 100 mg/dl 02/25/2018 0:59 EDT [facility] [employer] ID [id number] 02/25/2018 0:59 EDT [facility] Comment:Test Performed by [employer] BLOOD SPECIMEN / Unknown 02/25/2018 0:59 EDT 02/25/2018 1:00 EDT us Tyrell Vela MD CHEMISTRY & BLOOD GAS ORD ERABLES Final Result Performing Organization Address City/[facility]/ZIP Co de Phone Number [facility] [address] [place] [address] * (ABNORMAL) GLUCOSE, GLUCOMETER (02/24/2018 23:03 EDT) Glucose, Fingerstick 128(H) 70 - 100 mg/dl 02/25/2018 0:28 EDT [facility] [employer] ID [id number] 02/25/2018 0:28 EDT [facility] Comment:Test Performed by [employer] BLOOD SPECIMEN / Unknown 02/24/2018 23:03 EDT 02/25/2018 0:28 EDT us Tyrell Vela MD CHEMISTRY & BLOOD GAS ORD ERABLES Final Result [facility] [address] [place] [address] * (ABNORMAL) GLUCOSE, GLUCOMETER (02/24/2018 20:57 EDT) Glucose, Fingerstick 146(H) 70 - 100 mg/dl 02/24/2018 21:08 EDT [facility] [employer] ID [id number] 02/24/2018 21:08 EDT [facility] Comment:Test Performed by [employer] BLOOD SPECIMEN / Unknown 02/24/2018 20:57 EDT 02/24/2018 21:08 EDT Tyrell Vela MD CHEMISTRY & BLOOD GAS ORD ERABLES Final Result Performing Organization Address [facility] de Phone Number [facility] [address] [place] [address] * (ABNORMAL) GLUCOSE, GLUCOMETER (02/24/2018 19:49 EDT) [facility] Glucose, Fingerstick 136(H) 70 - 100 mg/dl 02/24/2018 19:50 EDT [facility] [place] [id number] 02/24/2018 19:50 EDT [facility] Comment:Test Performed by [facility] Services BLOOD SPECIMEN / Unknown 02/24/2018 19:49 EDT 02/24/2018 19:50 EDT us Tyrell Vela MD CHEMISTRY & BLOOD GAS ORD ERABLES Final Result Performing Organization Address [facility] de Phone Number [facility] [address] [place] [address] * EKG 12-LEAD (02/24/2018 17:49 EDT) 02/24/2018 17:4 9 EDT Narrative [facility] EKG - 03/01/2018 14:57 EDT ? [facility] ? Test Date: ?2018-02-24 Pat Name: ? TROY SHIRA ? Department: ?? [address] ? Room: ? SB365 Gender: ? Female ? Music Researcher: ?? : ?1945 ? Requested By: SCALES NACHO Order Number: [id number] ? Reading MD: ?? MAXIMILIAN VALADEZ MD ? Measurements Intervals ?[place] ? Rate: ? 88 ? P: ?28 MN: ? 182 ?QRS: ?-3 QRSD: ? 140 [...] Note Maximilian Valadez MD - 03/01/2018 [facility] Test Date: 2018-02-24 Pat Name: TROY ANDERS Department: [address] Room: [facility] Gender: Female Music Researcher: : 1945 Requested By: YORDY GRIFFITH Order Number: [id number] Reading MD: MAXIMILIAN VALADEZ MD Measurements Intervals [place] Rate: 88 P: 28 MN: 182 QRS: -3 QRSD: 140 T: 157 QT: 391 QTc: 475 Interpretive Statements SINUS RHYTHM LEFT BUNDLE BRANCH BLOCK Compared to ECG 02/23/2018 05:22:52 Left bundle-branch block now present Intraventricular conduction delay no longer present I reviewed the tracing and have either agreed or edited the findings inthis report. Electronically Signed On 03-01-2018 14:57:39 EDT by MAXIMILIAN CARPENTER. us Nacho Scales MD CARDIAC ECG ORDERABLES Final Result [facility] EKG * (ABNORMAL) GLUCOSE, GLUCOMETER (02/24/2018 17:20 EDT) Glucose, Fingerstick 112(H) 70 - 100 mg/dl 02/24/2018 17:25 EDT [facility] [employer] ID [id number] 02/24/2018 17:25 EDT [facility] Comment:[facility]LO[facility]CIM[facility] / Unknown 02/24/2018 17:20 EDT 02/24/2018 17:25 EDT us Tyrell Vela MD CHEMISTRY & BLOOD GAS ORD ERABLES Final Result [facility] [address] [place] [address] * (ABNORMAL) GLUCOSE, GLUCOMETER (02/24/2018 15:39 EDT) Glucose, Fingerstick 131(H) 70 - 100 mg/dl 02/24/2018 15:40 EDT [facility] [employer] ID [id number] 02/24/2018 15:40 EDT [facility] Comment:Test Performed by [employer] BLOOD SPECIMEN / Unknown 02/24/2018 15:39 EDT 02/24/2018 15:40 EDT us Tyrell Vela MD CHEMISTRY & BLOOD GAS ORD ERABLES Final Result Performing Organization Address City/[facility]/ZIP Co de Phone Number [facility] [address] [place] [address] * (ABNORMAL) GLUCOSE, GLUCOMETER (02/24/2018 14:29 EDT) Glucose, Fingerstick 164(H) 70 - 100 mg/dl 02/24/2018 14:34 EDT [facility] [employer] ID [id number] 02/24/2018 14:34 EDT [facility] Comment:Test Performed by [facility] Services BLOOD SPECIMEN / Unknown 02/24/2018 14:29 EDT 02/24/2018 14:34 EDT us Tyrell Vela MD CHEMISTRY & BLOOD GAS ORD ERABLES Final Result Performing Organization Address [facility]/ZIP Co de Phone Number [facility] [address] [place] [address] * PTT (02/24/2018 13:13 EDT) PTT 27 26 - 37 secs 02/24/2018 14:25 EDT [facility] Blood specimen (specimen) BLOOD SPECIMEN / Unknown 02/24/2018 13:13 EDT 02/24/2018 13:53 EDT us Nacho Scales MD HEMATOLOGY & PF4 ORDERABLES Final Result Performing Organization Address City/[facility]/ZIP Co de Phone Number [facility] [address] [place] [address] * (ABNORMAL) PROTIME (02/24/2018 13:13 EDT) Pro Time 13.6(H) 10.3 - 13.4 secs 02/24/2018 14:24 EDT [facility] I.N.R. 1.2(H) 0.9 - 1.1 Ratio 02/24/2018 14:24 EDT [facility] Comment: Moderate Intensity Coumadin INR = 2.0-3.0 Adjustments in anticoagulant therapy dose should be based upon the INR and NOT the Pro Time. Blood specimen (specimen) BLOOD SPECIMEN / Unknown 02/24/2018 13:13 EDT 02/24/2018 13:53 EDT Nacho Scales MD HEMATOLOGY & PF4 ORDERABLES Final Result Performing Organization Address [facility]/ZIP Co de Phone Number [facility] [address] [place] [address] * (ABNORMAL) ALBUMIN (02/24/2018 13:13 EDT) [facility] Albumin 2.4(L) 3.4 - 4.9 g/dl 02/24/2018 14:25 EDT [facility] Blood specimen (specimen) BLOOD SPECIMEN / Unknown 02/24/2018 13:13 EDT 02/24/2018 13:53 EDT Nacho Scales MD CHEMISTRY & BLOOD GAS ORDERA BLES Final Result Performing Organization Address [facility]/ZIP Co de Phone Number [facility] [address] [place] [address] * BILIRUBIN DIRECT/INDIRECT (02/24/2018 13:13 EDT) Conjugated Bilirubin 0.0 0.0 - 0.3 mg/dl 02/24/2018 14:25 EDT [facility] Unconjugated Bilirubin 0.4 0.0 - 1.1 mg/dl 02/24/2018 14:25 EDT [facility] Blood specimen (specimen) BLOOD SPECIMEN / Unknown 02/24/2018 13:13 EDT 02/24/2018 13:53 EDT Nacho Scales MD CHEMISTRY & BLOOD GAS ORDERA BLES Final Result Performing Organization Address [facility]/ZIP Co de Phone Number [facility] [address] [place] [address] * (ABNORMAL) PROTEIN, TOTAL (02/24/2018 13:13 EDT) Total Protein 4.8(L) 6.3 - 8.2 g/dl 02/24/2018 14:25 EDT [facility] Blood specimen (specimen) BLOOD SPECIMEN / Unknown 02/24/2018 13:13 EDT 02/24/2018 13:53 EDT Nacho Scales MD CHEMISTRY & BLOOD GAS ORDERA BLES Final Result Performing Organization Address [facility] Co de Phone Number [facility] [address] [place] [address] * ALKALINE PHOSPHATASE (02/24/2018 13:13 EDT) Total Alkaline Phosphatase 81 38 - 126 U/L 02/24/2018 14:25 EDT [facility] Blood specimen (specimen) BLOOD SPECIMEN / Unknown 02/24/2018 13:13 EDT 02/24/2018 13:53 EDT Nacho Scales MD CHEMISTRY & BLOOD GAS ORDERA BLES Final Result Performing Organization Address [facility]/ZIP Co de Phone Number [facility] [address] [place] [address] * AMMONIA (02/24/2018 13:13 EDT) Ammonia 20 <34 umol/L 02/24/2018 13:49 EDT [facility] Blood specimen (specimen) BLOOD SPECIMEN / Unknown 02/24/2018 13:13 EDT 02/24/2018 13:29 EDT us Nacho Scales MD CHEMISTRY & BLOOD GAS ORDERA BLES Final Result Performing Organization Address City/[facility]/ZIP Co de Phone Number [facility] [address] [place] [address] * ALT (02/24/2018 13:13 EDT) ALT 37 <53 U/L 02/24/2018 14:25 EDT [facility] Blood specimen (specimen) BLOOD SPECIMEN / Unknown 02/24/2018 13:13 EDT 02/24/2018 13:53 EDT Nacho Scales MD CHEMISTRY & BLOOD GAS ORDERA BLES Final Result Performing Organization Address [facility] Co de Phone Number [facility] [address] [place] [address] * (ABNORMAL) AST (02/24/2018 13:13 EDT) AST 50(H) 15 - 46 U/L 02/24/2018 14:25 EDT [facility] Blood specimen (specimen) BLOOD SPECIMEN / Unknown 02/24/2018 13:13 EDT 02/24/2018 13:53 EDT Result [facility] us Nacho Scales MD CHEMISTRY & BLOOD GAS ORDERA BLES Final Result Performing Organization Address [facility] Co de Phone Number [facility] [address] [place] [address] * (ABNORMAL) GLUCOSE, GLUCOMETER (02/24/2018 12:28 EDT) Glucose, Fingerstick 103(H) 70 - 100 mg/dl 02/24/2018 12:30 EDT [facility] [employer] ID [id number] 02/24/2018 12:30 EDT [facility] Comment:Test Performed by [facility] Services BLOOD SPECIMEN / Unknown 02/24/2018 12:28 EDT 02/24/2018 12:30 EDT us Tyrell Vela MD CHEMISTRY & BLOOD GAS ORD ERABLES Final Result Performing Organization Address [facility]/ZIP Co de Phone Number [facility] [address] [place] [address] * ECG REPORT - SCANNED (02/24/2018 12:00 EDT) 02/24/2018 12:0 0 EDT us Scan 2 Area Safety Manager PROCEDURE/MINOR SURGICAL OR DERABLES Final Result * URINE CULTURE IF UA POSITIVE - NON POCT URINALYSIS ONLY (02/24/2018 11:58 EDT) Culture if Indicated Culture not indicated by urinalysis results. 02/24/2018 13:15 EDT [facility] Urine specimen (specimen) TOPOGRAPHY UNKNOWN / Unknown 02/24/2018 11:58 EDT 02/24/2018 12:20 EDT us Nacho Scales MD MICROBIOLOGY - GENERAL ORDER LEAH Final Result Performing Organization Address [facility]/ZIP Co de Phone Number [facility] [address] [place] [address] * (ABNORMAL) UA, CHEMICAL AND SEDIMENT ANALYSIS (DIPSTICK AND MICROSCOPIC) (02/24/2018 11:58 EDT) Color, UA Yellow 02/24/2018 13:15 T [facility] Clarity, UA Clear 02/24/2018 13:15 T [facility] Glucose, UA Neg Neg 02/24/2018 13:15 [facility] Bilirubin, UA Neg Neg 02/24/2018 13:15 [facility] Ketones, UA Neg Neg 02/24/2018 13:15 [facility] Refractometer SG,Urine 1.042(H) 1.001 - 1.035 02/24/2018 13:15 [facility] Comment: Results greater than 1.035 suggest possible interference from glucose or radiographic dye. Blood, UA Neg Neg 02/24/2018 13:15 T [facility] pH, UA 6.0 4.6 - 8.0 02/24/2018 13:15 [facility] Protein, UA 1+(A) Neg 02/24/2018 13:15 [facility] Urobilinogen, UA Normal Normal E.U./dl 02/24/2018 13:15 [facility] Nitrite, UA Neg Neg 02/24/2018 13:15 [facility] Leuk Esterase Neg Neg 02/24/2018 13:15 [facility] UA Method Used 02/24/2018 10:39 [facility] Comment: Testing performed using [employer] AU-4050. Urine RBC Count Automated 3 to 10(A) 0 to 2 /HPF 02/24/2018 13:15 [facility] Urine WBC Count Automated 0 to 3 0 to 3 /HPF 02/24/2018 13:15 [facility] Urine Squamous Epithelial Cell Count, Automated Few(A) None seen /LPF 02/24/2018 13:15 [facility] Urine Hyaline Casts, Automated < or = 10 < or = 10 /LPF 02/24/2018 13:15 [facility] Urine Bacteria Count, Automated None seen None seen 02/24/2018 13:15 [facility] UA Comment Sediment results 02/24/2018 13:15 [facility] Comment: are unreliable on urines unrefrig >2hrs or refrig >8hrs. Urine specimen (specimen) URINE / Unknown 02/24/2018 11:58 EDT 02/24/2018 12:20 EDT us Nacho Scales MD URINALYSIS ORDERABLES Final Result [facility] [address] [place] [address] * (ABNORMAL) GLUCOSE, GLUCOMETER (02/24/2018 10:29 EDT) Glucose, Fingerstick 107(H) 70 - 100 mg/dl 02/24/2018 10:31 [facility] [employer] ID [id number] 02/24/2018 10:31 EDT [facility] Comment:Test Performed by [facility] Services BLOOD SPECIMEN / Unknown 02/24/2018 10:29 EDT 02/24/2018 10:31 EDT us Tyrell Vela MD CHEMISTRY & BLOOD GAS ORD ERABLES Final Result Performing Organization Address City/[facility]/ZIP Co de Phone Number [facility] [address] [place] [address] * GLUCOSE, GLUCOMETER (02/24/2018 8:28 EDT) Glucose, Fingerstick 100 70 - 100 mg/dl 02/24/2018 8:30 EDT [facility] [employer] ID [id number] 02/24/2018 8:30 EDT [facility] Comment:[facility] BLOOD SPECIMEN / Unknown 02/24/2018 8:28 EDT 02/24/2018 8:30 EDT us Tyrell Vela MD CHEMISTRY & BLOOD GAS ORD ERABLES Final Result Performing Organization Address [facility] Co de Phone Number [facility] [address] [place] [address] * (ABNORMAL) GLUCOSE, GLUCOMETER (02/24/2018 6:34 EDT) Glucose, Fingerstick 114(H) 70 - 100 mg/dl 02/24/2018 6:39 EDT [facility] [employer] ID [id number] 02/24/2018 6:39 EDT [facility] Comment:[facility] BLOOD SPECIMEN / Unknown 02/24/2018 6:34 EDT 02/24/2018 6:39 EDT us Tyrell Vela MD CHEMISTRY & BLOOD GAS ORD ERABLES Final Result Performing Organization Address City/[facility]/ZIP Co de Phone Number [facility] [address] [place] [address] * SMEAR REVIEW (02/24/2018 5:30 EDT) Smear scan only: Slide was examined by a technologist to verify the WBC and/or platelet count. 02/24/2018 8:11 [facility] Comment:LARGE PLATELETS PRES ENT BLOOD SPECIMEN / Unknown 02/24/2018 5:30 EDT 02/24/2018 6:08 EDT us Adryan Beasley MD HEMATOLOGY & PF4 ORDERABLES Final Result [facility] [address] [place] [address] * (ABNORMAL) COMPLETE BLOOD COUNT (02/24/2018 5:30 EDT) WBC 15.67(H) 4.0 - 12.4 K/cmm 02/24/2018 8:10 [facility] RBC 2.88(L) 3.86 - 5.04 M/cmm 02/24/2018 6:43 [facility] Hemoglobin 9.9(L) 11.6 - 15.2 gm/dl 02/24/2018 6:43 [facility] HCT 29.9(L) 34.9 - 44.4 % 02/24/2018 6:43 [facility] MCV 104(H) 81 - 98 fl 02/24/2018 6:43 [facility] MCH 34.4(H) 26.7 - 33.3 pg 02/24/2018 6:43 [facility] MCHC 33.1 32.1 - 35.9 gm/dl 02/24/2018 6:43 [facility] RDW-CV 13.9 <14.7 % 02/24/2018 6:43 [facility] RDW-SD 53.1(H) <50.4 fl 02/24/2018 6:43 [facility] PLT 81(L) 141 - 377 K/cmm 02/24/2018 8:10 [facility] MPV 12.4 9.5 - 12.7 fl 02/24/2018 8:10 EDT [facility] Blood specimen (specimen) BLOOD SPECIMEN / Unknown 02/24/2018 5:30 EDT 02/24/2018 6:08 EDT Result Wood Beasley MD HEMATOLOGY & PF4 ORDERABLES Final Result Performing Organization Address City/[facility]/ZIP Co de Phone Number [facility] [address] [place] [address] * CREATININE (02/24/2018 5:30 EDT) Creatinine 0.75 0.52 - 1.04 mg/dl 02/24/2018 6:46 EDT [facility] GFR, Calculated 80 >60 ml/min/1.7 3m2 02/24/2018 6:46 EDT [facility] Comment: eGFR calculated using CKD-EPI equation for non Americans. Multiply eGFR by 1.16 for Americans. Blood specimen (specimen) BLOOD SPECIMEN / Unknown 02/24/2018 5:30 EDT 02/24/2018 6:08 EDT Result Wood Beasley MD CHEMISTRY & BLOOD GAS ORDERA BLES Final Result Performing Organization Address [facility] Co de Phone Number [facility] [address] [place] [address] * BUN (02/24/2018 5:30 EDT) BUN 21 10 - 26 mg/dl 02/24/2018 6:46 EDT [facility] Blood specimen (specimen) BLOOD SPECIMEN / Unknown 02/24/2018 5:30 EDT 02/24/2018 6:08 EDT Result Wood Beasley MD CHEMISTRY & BLOOD GAS ORDERA BLES Final Result Performing Organization Address City/[facility]/ZIP Co de Phone Number [facility] [address] [place] [address] * ELECTROLYTES (02/24/2018 5:30 EDT) Sodium 139 136 - 145 mEq/L 02/24/2018 6:46 EDT [facility] Potassium 4.0 3.5 - 5.0 mEq/L 02/24/2018 6:46 EDT [facility] Chloride 106 96 - 110 mEq/L 02/24/2018 6:46 EDT [facility] CO2 28 22 - 32 mEq/L 02/24/2018 6:46 EDT [facility] Blood specimen (specimen) BLOOD SPECIMEN / Unknown 02/24/2018 5:30 EDT 02/24/2018 6:08 EDT us Adryan Beasley MD CHEMISTRY & BLOOD GAS ORDERA BLES Final Result Performing Organization Address City/[facility]/ZIP Co de Phone Number [facility] [address] [place] [address] * (ABNORMAL) GLUCOSE, GLUCOMETER (02/24/2018 4:23 EDT) Glucose, Fingerstick 111(H) 70 - 100 mg/dl 02/24/2018 4:27 EDT [facility] [employer] ID [id number] 02/24/2018 4:27 EDT [facility] Comment:Test Performed by [facility] Services BLOOD SPECIMEN / Unknown 02/24/2018 4:23 EDT 02/24/2018 4:27 EDT us Tyrell Vela MD CHEMISTRY & BLOOD GAS ORD ERABLES Final Result [facility] [address] [place] [address] * (ABNORMAL) GLUCOSE, GLUCOMETER (02/24/2018 2:23 EDT) Glucose, Fingerstick 124(H) 70 - 100 mg/dl 02/24/2018 2:44 EDT [facility] [employer] ID [id number] 02/24/2018 2:44 EDT [facility] Comment:Test Performed by [facility] BLOOD SPECIMEN / Unknown 02/24/2018 2:23 EDT 02/24/2018 2:44 EDT us Tyrell Vela MD CHEMISTRY & BLOOD GAS ORD ERABLES Final Result Performing Organization Address City/[facility]/ZIP Co de Phone Number [facility] [address] [place] [address] * (ABNORMAL) GLUCOSE, GLUCOMETER (02/24/2018 1:22 EDT) Glucose, Fingerstick 115(H) 70 - 100 mg/dl 02/24/2018 6:26 EDT [facility] [employer] ID [id number] 02/24/2018 6:26 EDT [facility] Comment:Test Performed by [employer] [facility] BLOOD SPECIMEN / Unknown 02/24/2018 1:22 EDT 02/24/2018 6:26 EDT us Tyrell Vela MD CHEMISTRY & BLOOD GAS ORD ERABLES Final Result Performing Organization Address [facility] Co de Phone Number [facility] [address] [place] [address] * (ABNORMAL) GLUCOSE, GLUCOMETER (02/24/2018 0:18 EDT) Glucose, Fingerstick 103(H) 70 - 100 mg/dl 02/24/2018 0:23 EDT [facility] [employer] ID [id number] 02/24/2018 0:23 EDT [facility] Comment:Test Performed by [facility] BLOOD SPECIMEN / Unknown 02/24/2018 0:18 EDT 02/24/2018 0:23 EDT us Tyrell Vela MD CHEMISTRY & BLOOD GAS ORD ERABLES Final Result Performing Organization Address City/[facility]/ZIP Co de Phone Number [facility] [address] [place] [address] * (ABNORMAL) GLUCOSE, GLUCOMETER (02/23/2018 23:07 EDT) Glucose, Fingerstick 112(H) 70 - 100 mg/dl 02/23/2018 23:07 EDT [facility] [employer] ID [id number] 02/23/2018 23:07 EDT [facility] Comment:[facility] BLOOD SPECIMEN / Unknown 02/23/2018 23:07 EDT 02/23/2018 23:08 EDT us Tyrell Vela MD CHEMISTRY & BLOOD GAS ORD ERABLES Final Result Performing Organization Address [facility] de Phone Number [facility] [address] [place] [address] * (ABNORMAL) GLUCOSE, GLUCOMETER (02/23/2018 22:00 EDT) Glucose, Fingerstick 117(H) 70 - 100 mg/dl 02/23/2018 22:05 EDT [facility] [employer] ID [id number] 02/23/2018 22:05 EDT [facility] Comment:[facility] BLOOD SPECIMEN / Unknown 02/23/2018 22:00 EDT 02/23/2018 22:05 EDT us Tyrell Vela MD CHEMISTRY & BLOOD GAS ORD ERABLES Final Result Performing Organization Address [facility] Phone Number [facility] [address] [place] [address] * (ABNORMAL) BLOOD GAS, G3 ISTAT (02/23/2018 21:50 EDT) pH, i-STAT 7.47(H) 7.35 - 7.45 02/23/2018 21:55 EDT [facility] pCO2, i-STAT 39 35 - 45 mmHg 02/23/2018 21:55 T [facility] pO2, i-STAT 84 80 - 105 mmHg 02/23/2018 21:55 T [facility] TCO2, i-STAT 29(H) 23 - 27 mEq/L 02/23/2018 21:55 EDT [facility] O2 Saturation 97 95 - 98 % 02/23/2018 21:55 EDT [facility] Base Excess, i-STAT 4 02/23/2018 21:55 EDT [facility] FIO2 24 02/23/2018 21:55 EDT [facility] Sample Type ARTERIAL 02/23/2018 21:55 EDT [facility] supervisor car and yard ID [phone] 02/23/2018 21:55 EDT [facility] Comment: Test Performed by Respiratory For non-arterial reference ranges, please see ISTAT procedure. BLOOD SPECIMEN / Unknown 02/23/2018 21:50 EDT 02/23/2018 21:55 EDT us Tyrell Vela MD CHEMISTRY & BLOOD GAS ORD ERABLES Final Result [facility] [address] [place] [address] * (ABNORMAL) GLUCOSE, GLUCOMETER (02/23/2018 20:59 EDT) Glucose, Fingerstick 132(H) 70 - 100 mg/dl 02/23/2018 21:24 EDT [facility] [employer] ID [id number] 02/23/2018 21:24 EDT [facility] Comment:Test Performed by Nu rsing Services BLOOD SPECIMEN / Unknown 02/23/2018 20:59 EDT 02/23/2018 21:24 EDT us Tyrell Vela MD CHEMISTRY & BLOOD GAS ORD ERABLES Final Result [facility] [address] [place] [address] * GLUCOSE, GLUCOMETER (02/23/2018 19:59 EDT) Glucose, Fingerstick 92 70 - 100 mg/dl 02/23/2018 20:04 EDT [facility] [employer] ID [id number] 02/23/2018 20:04 EDT [facility] Comment:Test Performed by [facility] Services BLOOD SPECIMEN / Unknown 02/23/2018 19:59 EDT 02/23/2018 20:04 EDT us Tyrell Vela MD CHEMISTRY & BLOOD GAS ORD ERABLES Final Result Performing Organization Address City/[facility]/ZIP Co de Phone Number [facility] [address] [place] [address] * (ABNORMAL) GLUCOSE, GLUCOMETER (02/23/2018 17:43 EDT) Glucose, Fingerstick 104(H) 70 - 100 mg/dl 02/23/2018 17:48 EDT [facility] [employer] ID [id number] 02/23/2018 17:48 EDT [facility] Comment:Test Performed by Nu rsing Services BLOOD SPECIMEN / Unknown 02/23/2018 17:43 EDT 02/23/2018 17:48 EDT us Tyrell Vela MD CHEMISTRY & BLOOD GAS ORD ERABLES Final Result Performing Organization Address [facility] Co de Phone Number [facility] [address] [place] [address] * (ABNORMAL) GLUCOSE, GLUCOMETER (02/23/2018 16:21 EDT) Glucose, Fingerstick 112(H) 70 - 100 mg/dl 02/23/2018 16:22 EDT [facility] [employer] ID [id number] 02/23/2018 16:22 EDT [facility] Comment:Test Performed by Nu rsing Services BLOOD SPECIMEN / Unknown 02/23/2018 16:21 EDT 02/23/2018 16:22 EDT us Tyrell Vela MD CHEMISTRY & BLOOD GAS ORD ERABLES Final Result [facility] [address] [place] [address] * CREATININE (02/23/2018 14:36 EDT) Creatinine 0.75 0.52 - 1.04 mg/dl 02/23/2018 15:32 EDT [facility] GFR, Calculated 80 >60 ml/min/1.7 3m2 02/23/2018 15:32 EDT [facility] Comment: eGFR calculated using CKD-EPI equation for non Americans. Multiply eGFR by 1.16 for Americans. Blood specimen (specimen) BLOOD SPECIMEN / Unknown 02/23/2018 14:36 EDT 02/23/2018 15:09 EDT us Adryan Beasley MD CHEMISTRY & BLOOD GAS ORDERA BLES Final Result Performing Organization Address City/[facility]/ZIP Co de Phone Number [facility] [address] [place] [address] * PHOSPHORUS (02/23/2018 14:36 EDT) Phosphorus 3.6 2.5 - 4.5 mg/dl 02/23/2018 15:32 EDT [facility] Blood specimen (specimen) BLOOD SPECIMEN / Unknown 02/23/2018 14:36 EDT 02/23/2018 15:09 EDT us Adryan Beasley MD CHEMISTRY & BLOOD GAS ORDERA BLES Final Result Performing Organization Address [facility] Co de Phone Number [facility] [address] [place] [address] * MAGNESIUM (02/23/2018 14:36 EDT) Magnesium 2.2 1.7 - 2.8 mg/dl 02/23/2018 15:32 EDT [facility] Blood specimen (specimen) BLOOD SPECIMEN / Unknown 02/23/2018 14:36 EDT 02/23/2018 15:09 EDT us Adryan Beasley MD CHEMISTRY & BLOOD GAS ORDERA BLES Final Result Performing Organization Address [facility] Co de Phone Number [facility] [address] [place] [address] * CALCIUM, IONIZED (02/23/2018 14:36 EDT) Calcium, Ionized 1.14 1.12 - 1.32 mmol/L 02/23/2018 15:18 EDT [facility] Blood specimen (specimen) BLOOD SPECIMEN / Unknown 02/23/2018 14:36 EDT 02/23/2018 15:09 EDT us Adryan Beasley MD CHEMISTRY & BLOOD GAS ORDERA BLES Final Result Performing Organization Address [facility] de Phone Number [facility] [address] [place] [address] * ELECTROLYTES (02/23/2018 14:36 EDT) Sodium 139 136 - 145 mEq/L 02/23/2018 15:32 EDT [facility] Potassium 4.0 3.5 - 5.0 mEq/L 02/23/2018 15:32 EDT [facility] Chloride 106 96 - 110 mEq/L 02/23/2018 15:32 EDT [facility] CO2 28 22 - 32 mEq/L 02/23/2018 15:32 EDT [facility] Blood specimen (specimen) BLOOD SPECIMEN / Unknown 02/23/2018 14:36 EDT 02/23/2018 15:09 EDT us Adryan Beasley MD CHEMISTRY & BLOOD GAS ORDERA BLES Final Result Performing Organization Address [facility] de Phone Number [facility] [address] [place] [address] * ECG REPORT - SCANNED (02/23/2018 14:22 EDT) 02/23/2018 14:2 2 EDT us Scan 2 Area Safety Manager PROCEDURE/MINOR SURGICAL OR DERABLES Final Result * (ABNORMAL) GLUCOSE, GLUCOMETER (02/23/2018 14:10 EDT) Glucose, Fingerstick 110(H) 70 - 100 mg/dl 02/23/2018 14:14 EDT [facility] [employer] ID [id number] 02/23/2018 14:14 EDT [facility] Comment:Test Performed by Nu [facility]sing Services BLOOD SPECIMEN / Unknown 02/23/2018 14:10 EDT 02/23/2018 14:14 EDT us Tyrell Vela MD CHEMISTRY & BLOOD GAS ORD ERABLES Final Result Performing Organization Address City/[facility]/ZIP Co de Phone Number [facility] [address] [place] [address] * (ABNORMAL) GLUCOSE, GLUCOMETER (02/23/2018 11:58 EDT) Glucose, Fingerstick 136(H) 70 - 100 mg/dl 02/23/2018 12:00 EDT [facility] [employer] ID [id number] 02/23/2018 12:00 EDT [facility] Comment:Test Performed by rsing Services BLOOD SPECIMEN / Unknown 02/23/2018 11:58 EDT 02/23/2018 12:00 EDT us Tyrell Vela MD CHEMISTRY & BLOOD GAS ORD ERABLES Final Result Performing Organization Address [facility]/ZIP Co de Phone Number [facility] [address] [place] [address] * (ABNORMAL) GLUCOSE, GLUCOMETER (02/23/2018 9:41 EDT) Glucose, Fingerstick 133(H) 70 - 100 mg/dl 02/23/2018 9:42 EDT [facility] [employer] ID [id number] 02/23/2018 9:42 EDT [facility] Comment:[facility] BLOOD SPECIMEN / Unknown 02/23/2018 9:41 EDT 02/23/2018 9:42 EDT us Tyrell Vela MD CHEMISTRY & BLOOD GAS ORD ERABLES Final Result Performing Organization Address City/[facility]/ZIP Co de Phone Number [facility] [address] [place] [address] * BLOOD GAS, G3 ISTAT (02/23/2018 8:25 EDT) pH, i-STAT 7.44 7.35 - 7.45 02/23/2018 8:30 EDT [facility] pCO2, i-STAT 39 35 - 45 mmHg 02/23/2018 8:30 T [facility] pO2, i-STAT Results not available 80 - 105 mmHg 02/23/2018 8:30 T [facility] TCO2, i-STAT 27 23 - 27 mEq/L 02/23/2018 8:30 T [facility] O2 Saturation Results not available 95 - 98 % 02/23/2018 8:30 [facility] Base Excess, i-STAT 2 02/23/2018 8:30 T [facility] Sample Type ARTERIAL 02/23/2018 8:30 [facility] supervisor car and yard ID [phone] 02/23/2018 8:30 T [facility] Comment: Test Performed by Respiratory For non-arterial reference ranges, please see ISTAT procedure. BLOOD SPECIMEN / Unknown 02/23/2018 8:25 EDT 02/23/2018 8:30 EDT us Tyrell Vela MD CHEMISTRY & BLOOD GAS ORD ERABLES Final Result [facility] [address] [place] [id number] * (ABNORMAL) GLUCOSE, GLUCOMETER (02/23/2018 8:07 EDT) Glucose, Fingerstick 128(H) 70 - 100 mg/dl 02/23/2018 8:34 EDT [facility] [employer] ID [id number] 02/23/2018 8:34 EDT [facility] Comment:Test Performed by Nu ing Services BLOOD SPECIMEN / Unknown 02/23/2018 8:07 EDT 02/23/2018 8:34 EDT us Tyrell Vela MD CHEMISTRY & BLOOD GAS ORD ERABLES Final Result [facility] [address] [place] [address] * PORTABLE CHEST 1 VIEW (02/23/2018 6:44 [...] Impression: Satisfactory postoperative appearance of the chest. us Wm Magana PA-C IMG DIAGNOSTIC IMAGING OR DERABLES Final Result * (ABNORMAL) GLUCOSE, GLUCOMETER (02/23/2018 6:05 EDT) Glucose, Fingerstick 148(H) 70 - 100 mg/dl 02/23/2018 6:07 EDT [facility] [employer] ID [id number] 02/23/2018 6:07 EDT [facility] Comment:Test Performed by [facility] Services BLOOD SPECIMEN / Unknown 02/23/2018 6:05 EDT 02/23/2018 6:07 EDT us Tyrell Vela MD CHEMISTRY & BLOOD GAS ORD ERABLES Final Result [facility] [address] [place] [address] * EKG 12-LEAD (02/23/2018 5:22 EDT) 02/23/2018 5:22 EDT Narrative [facility] - 02/24/2018 11:56 EDT ? [facility] ? Test Date: ?2018-02-23 Pat Name: ? TROY ANDERS ? Department: ?? Vu 3 ? Room: ? M303 Gender: ? Female ? Music Researcher: ?? [id number] : ?1945 ? Requested By: TIKI Ballard Order Number: [id number] ? Aliyah WOODS: ?? JESUS SANTAMARIA MD ? Measurements Intervals ?[place] ? Rate: ? 85 ? P: ?30 MN: ? 144 ?QRS: ?-5 QRSD: ? 134 [...] Note Jesus Santamaria MD - 02/24/2018 [facility] Test Date: 2018-02-23 Pat Name: TROY ANDERS Department: [place] [address] Room: M303 Gender: Female Music Researcher: [id number] : 1945 Requested By: TIKI Ballard Order Number: [id number] Aliyha MD: JESUS DAVISON Measurements Intervals [place] Rate: 85 P: 30 MN: 144 QRS: -5 QRSD: 134 T: 145 QT: 409 QTc: 489 Interpretive Statements SINUS RHYTHM INTRAVENTRICULAR CONDUCTION DELAY Compared to ECG 02/22/2018 12:39:18 No significant changes I reviewed the tracing and have either agreed or edited the findings inthis report. Electronically Signed On 02-24-2018 11:56:21 EDT by MARIPOSA WOODS. us Wm Magana PA-C CARDIAC ECG ORDERABLES Fi nal Result Performing Organization Address City/[facility]/ZIP Co de Phone Number [facility] * CREATININE (02/23/2018 4:53 EDT) Creatinine 0.68 0.52 - 1.04 mg/dl 02/23/2018 5:21 EDT [facility] Comment:Slight hemolysis GFR, Calculated 88 >60 ml/min/1.7 3m2 02/23/2018 5:21 EDT [facility] Comment: eGFR calculated using CKD-EPI equation for non Americans. Multiply eGFR by 1.16 for Americans. Blood specimen (specimen) BLOOD SPECIMEN / Unknown 02/23/2018 4:53 EDT 02/23/2018 4:56 EDT us Tyrell Vela MD CHEMISTRY & BLOOD GAS ORD ERABLES Final Result Performing Organization Address [facility] Co de Phone Number [facility] [address] [place] [address] * BUN (02/23/2018 4:53 EDT) BUN 18 10 - 26 mg/dl 02/23/2018 5:21 EDT [facility] Comment: Slight hemolysis Results may be affected due to hemolysis. Blood specimen (specimen) BLOOD SPECIMEN / Unknown 02/23/2018 4:53 EDT 02/23/2018 4:56 EDT us Tyrlel Vela MD CHEMISTRY & BLOOD GAS ORD ERABLES Final Result Performing Organization Address City/[facility]/ZIP Co de Phone Number [facility] [address] [place] [address] * ELECTROLYTES (02/23/2018 4:53 EDT) Sodium 139 136 - 145 mEq/L 02/23/2018 5:21 EDT [facility] Comment:Slight hemolysis Potassium 4.6 3.5 - 5.0 mEq/L 02/23/2018 5:21 EDT [facility] Comment: Slight hemolysis Hemolysis may elevate potassium result. Chloride 109 96 - 110 mEq/L 02/23/2018 5:21 EDT [facility] Comment:Slight hemolysis CO2 25 22 - 32 mEq/L 02/23/2018 5:21 EDT [facility] Comment:Slight hemolysis Blood specimen (specimen) BLOOD SPECIMEN / Unknown 02/23/2018 4:53 EDT 02/23/2018 4:56 EDT us Tyrell Vela MD CHEMISTRY & BLOOD GAS ORD ERABLES Final Result Performing Organization Address [facility] Co de Phone Number [facility] [address] [place] [address] * (ABNORMAL) GLUCOSE, GLUCOMETER (02/23/2018 3:51 EDT) Glucose, Fingerstick 141(H) 70 - 100 mg/dl 02/23/2018 3:53 EDT [facility] [employer] ID [id number] 02/23/2018 3:53 EDT [facility] Comment:Test Performed by Nu ing Services BLOOD SPECIMEN / Unknown 02/23/2018 3:51 EDT 02/23/2018 3:53 EDT us Tyrell Vela MD CHEMISTRY & BLOOD GAS ORD ERABLES Final Result Performing Organization Address City/[facility]/ZIP Co de Phone Number [facility] [address] [place] [address] * SLIDE REQUEST (02/23/2018 2:55 EDT) Note A smear is filed in the Hematology lab 02/23/2018 4:12 EDT [facility] BLOOD SPECIMEN / Unknown 02/23/2018 2:55 EDT 02/23/2018 3:07 EDT us Wm Magana PA-C HEMATOLOGY & PF4 ORDERABL ES Final Result Performing Organization Address [facility]/ZIP Co de Phone Number [facility] [address] [place] [address] * (ABNORMAL) COMPLETE BLOOD COUNT (02/23/2018 2:55 EDT) WBC 23.20(H) 4.0 - 12.4 K/cmm 02/23/2018 3:30 EDT [facility] RBC 3.50(L) 3.86 - 5.04 M/cmm 02/23/2018 3:30 EDT [facility] Hemoglobin 12.1 11.6 - 15.2 gm/dl 02/23/2018 3:30 EDT [facility] HCT 35.2 34.9 - 44.4 % 02/23/2018 3:30 EDT [facility] MCV 101(H) 81 - 98 fl 02/23/2018 3:30 EDT [facility] MCH 34.6(H) 26.7 - 33.3 pg 02/23/2018 3:30 EDT [facility] MCHC 34.4 32.1 - 35.9 gm/dl 02/23/2018 3:30 EDT [facility] RDW-CV 13.5 <14.7 % 02/23/2018 3:30 EDT [facility] RDW-SD 49.5 <50.4 fl 02/23/2018 3:30 EDT [facility] PLT 167 141 - 377 K/cmm 02/23/2018 3:30 EDT [facility] MPV 11.9 9.5 - 12.7 fl 02/23/2018 3:30 EDT [facility] Blood specimen (specimen) BLOOD SPECIMEN / Unknown 02/23/2018 2:55 EDT 02/23/2018 3:07 EDT us Adryan Beasley MD HEMATOLOGY & PF4 ORDERABLES Final Result Performing Organization Address City/[facility]/ZIP Co de Phone Number [facility] [address] [place] [address] * (ABNORMAL) GLUCOSE, GLUCOMETER (02/23/2018 2:02 EDT) Glucose, Fingerstick 142(H) 70 - 100 mg/dl 02/23/2018 2:07 EDT [facility] [employer] ID [id number] 02/23/2018 2:07 EDT [facility] Comment:Test Performed by Nu rsing Services BLOOD SPECIMEN / Unknown 02/23/2018 2:02 EDT 02/23/2018 2:07 EDT Tyrell Vela MD CHEMISTRY & BLOOD GAS ORD ERABLES Final Result [facility] [address] [place] [address] * (ABNORMAL) GLUCOSE, GLUCOMETER (02/23/2018 0:01 EDT) Glucose, Fingerstick 143(H) 70 - 100 mg/dl 02/23/2018 0:07 EDT [facility] [employer] ID [id number] 02/23/2018 0:07 EDT [facility] Comment:Test Performed by Nu rsing Services BLOOD SPECIMEN / Unknown 02/23/2018 0:01 EDT 02/23/2018 0:07 EDT us Tyrell Vela MD CHEMISTRY & BLOOD GAS ORD ERABLES Final Result [facility] [address] [place] [address] * (ABNORMAL) GLUCOSE, GLUCOMETER (02/22/2018 22:00 EDT) Glucose, Fingerstick 149(H) 70 - 100 mg/dl 02/22/2018 22:00 EDT [facility] [employer] ID [id number] 02/22/2018 22:00 EDT [facility] Comment:Test Performed by Nu rsing Services BLOOD SPECIMEN / Unknown 02/22/2018 22:00 EDT 02/22/2018 22:01 EDT us Tyrell Vela MD CHEMISTRY & BLOOD GAS ORD ERABLES Final Result [facility] [address] [place] [address] * (ABNORMAL) BLOOD GAS, G3 ISTAT (02/22/2018 20:22 EDT) pH, i-STAT 7.30(L) 7.35 - 7.45 02/22/2018 20:27 EDT [facility] pCO2, i-STAT 49(H) 35 - 45 mmHg 02/22/2018 20:27 T [facility] pO2, i-STAT 61(L) 80 - 105 mmHg 02/22/2018 20:27 EDT [facility] TCO2, i-STAT 25 23 - 27 mEq/L 02/22/2018 20:27 EDT [facility] O2 Saturation 88(L) 95 - 98 % 02/22/2018 20:27 T [facility] Base Deficit, i-STAT 3 02/22/2018 20:27 T [facility] FIO2 21 02/22/2018 20:27 T [facility] Sample Type ARTERIAL 02/22/2018 20:27 [facility] supervisor car and yard ID [phone] 02/22/2018 20:27 T [facility] Comment: Test Performed by Respiratory For non-arterial reference ranges, please see ISTAT procedure. BLOOD SPECIMEN / Unknown 02/22/2018 20:22 EDT 02/22/2018 20:27 EDT us Tyrell Vela MD CHEMISTRY & BLOOD GAS ORD ERABLES Final Result [facility] [address] [place] [address] * (ABNORMAL) GLUCOSE, GLUCOMETER (02/22/2018 19:56 EDT) Glucose, Fingerstick 151(H) 70 - 100 mg/dl 02/22/2018 19:57 EDT [facility] [employer] ID [id number] 02/22/2018 19:57 EDT [facility] Comment:Test Performed by Nu rsing Services BLOOD SPECIMEN / Unknown 02/22/2018 19:56 EDT 02/22/2018 19:57 EDT us Tyrell Vela MD CHEMISTRY & BLOOD GAS ORD ERABLES Final Result Performing Organization Address [facility]/ZIP Co de Phone Number [facility] [address] [place] [address] * (ABNORMAL) BLOOD GAS, G3 ISTAT (02/22/2018 18:56 EDT) pH, i-STAT 7.31(L) 7.35 - 7.45 02/22/2018 19:03 [facility] pCO2, i-STAT 56(H) 35 - 45 mmHg 02/22/2018 19:03 [facility] pO2, i-STAT 109(H) 80 - 105 mmHg 02/22/2018 19:03 [facility] TCO2, i-STAT 30(H) 23 - 27 mEq/L 02/22/2018 19:03 [facility] O2 Saturation 98 95 - 98 % 02/22/2018 19:03 [facility] Base Excess, i-STAT 1 02/22/2018 19:03 [facility] Sample Type ARTERIAL 02/22/2018 19:03 [facility] supervisor car and yard ID [phone] 02/22/2018 19:03 [facility] Comment: Test Performed by Respiratory For non-arterial reference ranges, please see ISTAT procedure. BLOOD SPECIMEN / Unknown 02/22/2018 18:56 EDT 02/22/2018 19:03 EDT us Tyrell Vela MD CHEMISTRY & BLOOD GAS ORD ERABLES Final Result Performing Organization Address [facility]/ZIP Co de Phone Number [facility] [address] [place] [address] * POTASSIUM (02/22/2018 18:49 EDT) Potassium 4.0 3.5 - 5.0 mEq/L 02/22/2018 19:14 EDT [facility] Blood specimen (specimen) BLOOD SPECIMEN / Unknown 02/22/2018 18:49 EDT 02/22/2018 19:00 EDT us Wm Magana PA-C CHEMISTRY & BLOOD GAS ORD ERABLES Final Result Performing Organization Address [facility] Co de Phone Number [facility] [address] [place] [address] * SLIDE REQUEST (02/22/2018 18:04 EDT) Pathologist [facility] Note A smear is filed in the Hematology lab 02/22/2018 19:10 EDT [facility] BLOOD SPECIMEN / Unknown 02/22/2018 18:04 EDT 02/22/2018 18:08 EDT us Wm Magana PA-C HEMATOLOGY & PF4 ORDERABL ES Final Result Performing Organization Address [facility] de Phone Number [facility] [address] [place] [address] * (ABNORMAL) COMPLETE BLOOD COUNT (02/22/2018 18:04 EDT) Pathologist [facility] WBC 22.68(H) 4.0 - 12.4 K/cmm 02/22/2018 18:29 T [facility] RBC 3.58(L) 3.86 - 5.04 M/cmm 02/22/2018 18:29 [facility] Hemoglobin 12.2 11.6 - 15.2 gm/dl 02/22/2018 18:29 T [facility] HCT 36.3 34.9 - 44.4 % 02/22/2018 18:29 [facility] MCV 101(H) 81 - 98 fl 02/22/2018 18:29 [facility] MCH 34.1(H) 26.7 - 33.3 pg 02/22/2018 18:29 [facility] MCHC 33.6 32.1 - 35.9 gm/dl 02/22/2018 18:29 EDT [facility] RDW-CV 13.6 <14.7 % 02/22/2018 18:29 EDT [facility] RDW-SD 50.1 <50.4 fl 02/22/2018 18:29 EDT [facility] PLT 191 141 - 377 K/cmm 02/22/2018 18:29 EDT [facility] MPV 12.2 9.5 - 12.7 fl 02/22/2018 18:29 EDT [facility] Blood specimen (specimen) BLOOD SPECIMEN / Unknown 02/22/2018 18:04 EDT 02/22/2018 18:08 EDT us Wm Magana PA-C HEMATOLOGY & PF4 ORDERABL ES Final Result [facility] [address] [place] [address] * SURGICAL PATHOLOGY (02/22/2018 18:03 EDT) Pathology Report: SURGICAL PATHOLOGY REPORT Reports generated via electronic interface contain original data; however they are lacking the format of the original report. Caution should be taken when reading/interpret ing unformatted reports. Name: ? TROY ANDERS ? Accession #: ? [id number] ? : ? 1945 (Age: 72) ??F [...] identified. No masses or lesions are identified. Nursery Rn sections are submitted in 1 and 2. ELIUD Yates ([facility]) 02/23/2018 9:03 AM End of Report [facility] 02/22/2018 18:0 3 EDT 02/22/2018 18:03 EDT us Tyrell Vela MD PATHOLOGY ORDERABLES Mely carmona Result [facility] [address] [place] [address] * (ABNORMAL) GLUCOSE, GLUCOMETER (02/22/2018 18:01 EDT) Glucose, Fingerstick 143(H) 70 - 100 mg/dl 02/22/2018 18:06 EDT [facility] [employer] ID [id number] 02/22/2018 18:06 EDT [facility] Comment:[facility] BLOOD SPECIM[facility] / Unknown 02/22/2018 18:01 EDT 02/22/2018 18:06 EDT us Tyrell Vela MD CHEMISTRY & BLOOD GAS ORD ERABLES Final Result [facility] [address] [place] [address] * (ABNORMAL) GLUCOSE, GLUCOMETER (02/22/2018 15:53 EDT) Glucose, Fingerstick 137(H) 70 - 100 mg/dl 02/22/2018 15:57 EDT [facility] [employer] ID [id number] 02/22/2018 15:57 EDT [facility] Comment:Test Performed by [facility] Services BLOOD SPECIMEN / Unknown 02/22/2018 15:53 EDT 02/22/2018 15:57 EDT us Tyrell Vela MD CHEMISTRY & BLOOD GAS ORD ERABLES Final Result Performing Organization Address City/[facility] Co de Phone Number [facility] [address] [place] [address] * (ABNORMAL) BLOOD GAS, G3 ISTAT (02/22/2018 13:50 EDT) pH, i-STAT 7.25(L) 7.35 - 7.45 02/22/2018 13:55 [facility] pCO2, i-STAT 60(H) 35 - 45 mmHg 02/22/2018 13:55 [facility] pO2, i-STAT 123(H) 80 - 105 mmHg 02/22/2018 13:55 [facility] TCO2, i-STAT 28(H) 23 - 27 mEq/L 02/22/2018 13:55 [facility] O2 Saturation 98 95 - 98 % 02/22/2018 13:55 [facility] Base Deficit, i-STAT 2 02/22/2018 13:55 [facility] FIO2 50 02/22/2018 13:55 [facility] Sample Type ARTERIAL 02/22/2018 13:55 [facility] supervisor car and yard ID [phone] 02/22/2018 13:55 [facility] Comment: Test Performed by Respiratory For non-arterial reference ranges, please see ISTAT procedure. BLOOD SPECIMEN / Unknown 02/22/2018 13:50 EDT 02/22/2018 13:55 EDT us Tyrell Vela MD CHEMISTRY & BLOOD GAS ORD ERABLES Final Result [facility] [address] [place] [address] * (ABNORMAL) GLUCOSE, GLUCOMETER (02/22/2018 13:47 EDT) Glucose, Fingerstick 129(H) 70 - 100 mg/dl 02/22/2018 13:48 EDT [facility] [employer] ID [id number] 02/22/2018 13:48 EDT [facility] Comment:Test Performed by [facility] BLOOD SPECIMEN / Unknown 02/22/2018 13:47 EDT 02/22/2018 13:48 EDT us Tyrell Vela MD CHEMISTRY & BLOOD GAS ORD ERABLES Final Result Performing Organization Address [facility]/ZIP Co de Phone Number [facility] [address] [place] [address] * INPATIENT ADD-ON (02/22/2018 13:30 EDT) Tests to be added MAGNESIUM, PHOSPHOROU S 02/22/2018 13:26 EDT [facility] Number for problems [id number] 02/22/2018 13:47 EDT [facility] Accession number [id number] 02/22/2018 13:47 EDT [facility] TOPOGRAPHY UNKNOWN / Unknown 02/22/2018 13:30 EDT 02/22/2018 13:46 EDT Senait Mcclure MD HEMATOLOGY & PF4 ORDERABLES Fi nal Result Performing Organization Address City/[facility]/ZIP Co de Phone Number [facility] [address] [place] [address] * INPATIENT ADD-ON (02/22/2018 12:50 EDT) Tests to be added HEMOGLOBIN A1C 02/22/2018 12:52 EDT [facility] Number for problems [id number] 02/22/2018 13:09 EDT [facility] Accession number [id number] 02/22/2018 13:09 EDT [facility] TOPOGRAPHY UNKNOWN / Unknown 02/22/2018 12:50 EDT 02/22/2018 13:09 EDT us Adryan Beasley MD HEMATOLOGY & PF4 ORDERABLES Final Result Performing Organization Address [facility]/ZIP Co de Phone Number [facility] [address] [place] [address] * MRSA PCR (02/22/2018 12:40 EDT) Result No Staphylococcus aureus detected by PCR. 02/22/2018 19:45 EDT [facility] Specimen of unknown material (specimen) NASAL ROUTE / Unknown 02/22/2018 12:40 EDT 02/22/2018 13:04 EDT us Wm Magana PA-C MICROBIOLOGY - GENERAL OR DERABLES Final Result Performing Organization Address [facility]/ZIP Co de Phone Number [facility] [address] [place] [address] * EKG 12-LEAD (02/22/2018 12:39 EDT) 02/22/2018 12:3 9 EDT Narrative [facility] - 02/23/2018 14:19 EDT ? [facility] ? Test Date: ?2018-02-22 Pat Name: ? TROY ANDERS ? Department: ?? Vu 3 ? Room: ? M303 Gender: ? Female ? Music Researcher: ?? [id number] : ?1945 ? Requested By: TIKI Ballard Order Number: [id number] ? Reading MD: ?? MARIFER BARKLEY MD ? Measurements Intervals ?[place] ? Rate: ? 89 ? P: ?57 MN: ? 194 ?QRS: ?13 QRSD: ? 145 ?T: ?164 QT: ? 414 ? QTc: ?505 ? Interpretive Statements SINUS RHYTHM INTRAVENTRICULAR CONDUCTION DELAY I reviewed the tracing and have either agreed or edited the findings in this report. Electronically Signed On 02-23-2018 14:19:43 EDT by MARIFER BARKLEY MD. Procedure Note Marifer Barkley MD - 02/23/2018 [facility] Test Date: 2018-02-22 Pat Name: TROY ANDERS Department: [place] Room: [facility] Gender: Female Music Researcher: [id number] : 1945 Requested By: TIKI Ballard Order Number: [id number] Reading MD: MARIFER BARKLEY MD Measurements Intervals [place] Rate: 89 P: 57 MN: 194 QRS: 13 QRSD: 145 T: 164 QT: 414 QTc: 505 Interpretive Statements SINUS RHYTHM INTRAVENTRICULAR CONDUCTION DELAY I reviewed the tracing and have either agreed or edited the findings inthis report. Electronically Signed On 02-23-2018 14:19:43 EDT by MARIFER HERNÁNDEZ. us Wm Magana PA-C CARDIAC ECG ORDERABLES Fi nal Result [facility] * PORTABLE CHEST PA CENTRAL [...] drain (according to the operative note, 36 Barbadian and 24 Shane mediastinal drains and a [...] drain (according to the operative note, 36 Barb[place] and 24 Shane mediastinal drains and a [...] described above. Wm Magana PA-C IMG DIAGNOSTIC IMAGING OR DERABLES Final Result * (ABNORMAL) GLUCOSE, GLUCOMETER (02/22/2018 12:36 EDT) Glucose, Fingerstick 111(H) 70 - 100 mg/dl 02/22/2018 12:37 EDT [facility] [employer] ID [id number] 02/22/2018 12:37 EDT [facility] Comment:Test Performed by [facility] Services BLOOD SPECIMEN / Unknown 02/22/2018 12:36 EDT 02/22/2018 12:37 EDT us Tyrell Vela MD CHEMISTRY & BLOOD GAS ORD ERABLES Final Result Performing Organization Address [facility] Co de Phone Number [facility] [address] [place] [address] * PHOSPHORUS (02/22/2018 12:32 EDT) Phosphorus 3.2 2.5 - 4.5 mg/dl 02/22/2018 14:43 EDT [facility] Comment: Slight hemolysis Results may be affected due to hemolysis. BLOOD SPECIMEN / Unknown 02/22/2018 12:32 EDT 02/22/2018 12:54 EDT us Wm Magana PA-C CHEMISTRY & BLOOD GAS ORD ERABLES Final Result Performing Organization Address [facility] Co de Phone Number [facility] [address] [place] [address] * MAGNESIUM (02/22/2018 12:32 EDT) Magnesium 2.7 1.7 - 2.8 mg/dl 02/22/2018 14:43 EDT [facility] Comment: Slight hemolysis Results may be affected due to hemolysis. BLOOD SPECIMEN / Unknown 02/22/2018 12:32 EDT 02/22/2018 12:54 EDT us Wm Magana PA-C CHEMISTRY & BLOOD GAS ORD ERABLES Final Result Performing Organization Address [facility] Co de Phone Number [facility] [address] [place] [address] * HEMOGLOBIN A1C (02/22/2018 12:32 EDT) Hemoglobin A1C 5.5 % 02/22/2018 15:06 EDT [facility] Comment: Reference Range: <5.7% Normal 5.7-6.4% Prediabetes =>6.5% Diagnostic for diabetes (if confirmed) Goals for glycemic control in diabetes ADA 2017 For non adults with diabetes: ?? Target <7.5% For children and adolescents with type 1 diabetes: ?? Target <7.0% More or less stringent targets may be appropriate for individual patients. Est Avg Glucose 111 mg/dl 8 15:06 EDT [facility] Comment: eAG represents the A1c result expressed as average glucose in mg/dl. BLOOD SPECIMEN / Unknown 02/22/2018 12:32 EDT 02/22/2018 12:54 EDT Wm Magana PA-C CHEMISTRY & BLOOD GAS ORD ERABLES Final Result Performing Organization Address [facility] Co de Phone Number [facility] [address] [place] [address] * CREATININE (02/22/2018 12:32 EDT) Creatinine 0.56 0.52 - 1.04 mg/dl 02/22/2018 13:19 EDT [facility] Comment:Slight hemolysis GFR, Calculated 94 >60 ml/min/1.7 3m2 02/22/2018 13:19 EDT [facility] Comment: eGFR calculated using CKD-EPI equation for non Americans. Multiply eGFR by 1.16 for Americans. Blood specimen (specimen) BLOOD SPECIMEN / Unknown 02/22/2018 12:32 EDT 02/22/2018 12:54 EDT us Adryan Beasley MD CHEMISTRY & BLOOD GAS ORDERA BLES Final Result Performing Organization Address [facility] Co de Phone Number [facility] [address] [place] [address] * BUN (02/22/2018 12:32 EDT) BUN 14 10 - 26 mg/dl 02/22/2018 13:19 T [facility] Comment: Slight hemolysis Results may be affected due to hemolysis. Blood specimen (specimen) BLOOD SPECIMEN / Unknown 02/22/2018 12:32 EDT 02/22/2018 12:54 EDT us Adryan Beasley MD CHEMISTRY & BLOOD GAS ORDERA BLES Final Result Performing Organization Address City/[facility]/ZIP Co de Phone Number [facility] [address] [place] [address] * (ABNORMAL) COMPLETE BLOOD COUNT (02/22/2018 12:32 EDT) WBC 13.59(H) 4.0 - 12.4 K/cmm 02/22/2018 13:10 [facility] RBC 3.63(L) 3.86 - 5.04 M/cmm 02/22/2018 13:10 [facility] Hemoglobin 12.3 11.6 - 15.2 gm/dl 02/22/2018 13:10 [facility] HCT 36.6 34.9 - 44.4 % 02/22/2018 13:10 [facility] MCV 101(H) 81 - 98 fl 02/22/2018 13:10 [facility] MCH 33.9(H) 26.7 - 33.3 pg 02/22/2018 13:10 [facility] MCHC 33.6 32.1 - 35.9 gm/dl 02/22/2018 13:10 [facility] RDW-CV 13.1 <14.7 % 02/22/2018 13:10 [facility] RDW-SD 48.9 <50.4 fl 02/22/2018 13:10 [facility] PLT 163 141 - 377 K/cmm 02/22/2018 13:10 [facility] MPV 11.7 9.5 - 12.7 fl 02/22/2018 13:10 [facility] Blood specimen (specimen) BLOOD SPECIMEN / Unknown 02/22/2018 12:32 EDT 02/22/2018 12:54 EDT us Wm Magana PA-C HEMATOLOGY & PF4 ORDERABL ES Final Result Performing Organization Address City/[facility]/ZIP Co de Phone Number [facility] [address] [place] [address] * POTASSIUM (02/22/2018 12:32 EDT) Potassium 4.4 3.5 - 5.0 mEq/L 02/22/2018 13:19 [facility] Comment: Slight hemolysis Hemolysis may elevate potassium result. Blood specimen (specimen) BLOOD SPECIMEN / Unknown 02/22/2018 12:32 EDT 02/22/2018 12:54 EDT us Wm Magana PA-C CHEMISTRY & BLOOD GAS ORD ERABLES Final Result [facility] [address] [place] [address] * (ABNORMAL) BLOOD GAS, CG8 ISTAT (02/22/2018 11:22 EDT) pH, i-STAT 7.34(L) 7.35 - 7.45 02/22/2018 12:55 [facility] pCO2, i-STAT 49(H) 35 - 45 mmHg 02/22/2018 12:55 [facility] pO2, i-STAT 172(H) 80 - 105 mmHg 02/22/2018 12:55 [facility] TCO2, i-STAT 27 23 - 27 mEq/L 02/22/2018 12:55 [facility] O2 Saturation 99(H) 95 - 98 % 02/22/2018 12:55 [facility] Sodium, i-STAT 140 136 - 145 mEq/L 02/22/2018 12:55 [facility] Potassium, i-STAT 5.6(H) 3.5 - 5.0 mEq/L 02/22/2018 12:55 [facility] Glucose, I-STAT 136(H) 70 - 100 mg/dl 02/22/2018 12:55 [facility] Hematocrit,iSTA T 26(L) 34.9 - 44.4 % 02/22/2018 12:55 [facility] Calcium, Ionized 1.29 1.12 - 1.32 mmol/L 02/22/2018 12:55 EDT [facility] Base Excess, i-STAT 0 02/22/2018 12:55 EDT [facility] Sample Type NOT GIVEN 02/22/2018 12:55 EDT [facility] supervisor car and yard ID [phone] 02/22/2018 12:55 EDT [facility] Comment: Test performed by Perfusion For non-arterial reference ranges, please see ISTAT procedure. BLOOD SPECIMEN / Unknown 02/22/2018 11:22 EDT 02/22/2018 12:55 EDT us Tyrell Vlea MD CHEMISTRY & BLOOD GAS ORD ERABLES Final Result Performing Organization Address [facility] Co de Phone Number [facility] [address] [place] [address] * ACT, CELITE ISTAT (02/22/2018 11:21 EDT) Activated Clotting Time 127 02/22/2018 11:54 EDT [facility] supervisor car and yard ID [phone] 02/22/2018 11:54 EDT [facility] Comment: Test performed by Perfusion Baseline ref range is less than or equal to 160 seconds For non baseline ref ranges see procedure. BLOOD SPECIMEN / Unknown 02/22/2018 11:21 EDT 02/22/2018 11:54 EDT us Tyrell Vela MD POINT OF CARE TEST ORDERA BLES Final Result Performing Organization Address [facility] Co de Phone Number [facility] [address] [place] [address] * (ABNORMAL) BLOOD GAS, CG8 ISTAT (02/22/2018 10:57 EDT) pH, i-STAT 7.47(H) 7.35 - 7.45 02/22/2018 12:55 EDT [facility] pCO2, i-STAT 44 35 - 45 mmHg 02/22/2018 12:55 EDT [facility] pO2, i-STAT 552(H) 80 - 105 mmHg 02/22/2018 12:55 [facility] TCO2, i-STAT 33(H) 23 - 27 mEq/L 02/22/2018 12:55 [facility] O2 Saturation 100(H) 95 - 98 % 02/22/2018 12:55 [facility] Sodium, i-STAT 138 136 - 145 mEq/L 02/22/2018 12:55 [facility] Potassium, i-STAT 5.0 3.5 - 5.0 mEq/L 02/22/2018 12:55 [facility] Glucose, I-STAT 167(H) 70 - 100 mg/dl 02/22/2018 12:55 [facility] Hematocrit,iSTA T 27(L) 34.9 - 44.4 % 02/22/2018 12:55 [facility] Calcium, Ionized 1.02(L) 1.12 - 1.32 mmol/L 02/22/2018 12:55 [facility] Base Excess, i-STAT 8 02/22/2018 12:55 [facility] Sample Type NOT GIVEN 02/22/2018 12:55 [facility] supervisor car and yard ID [phone] 02/22/2018 12:55 [facility] Comment: Test performed by Perfusion For non-arterial reference ranges, please see ISTAT procedure. BLOOD SPECIMEN / Unknown 02/22/2018 10:57 EDT 02/22/2018 12:55 EDT us Tyrell Vela MD CHEMISTRY & BLOOD GAS ORD ERABLES Final Result [facility] [address] [place] [address] * TAI WHITMORE (02/22/2018 10:56 EDT) Activated Clotting Time 631 02/22/2018 11:54 [facility] supervisor car and yard ID [phone] 02/22/2018 11:54 [facility] Comment: Test performed by Perfusion Baseline ref range is less than or equal to 160 seconds For non baseline ref ranges see procedure. BLOOD SPECIMEN / Unknown 02/22/2018 10:56 EDT 02/22/2018 11:54 EDT us Tyrell Vela MD POINT OF CARE TEST ORDERA BLES Final Result [facility] [address] [place] [address] * (ABNORMAL) BLOOD GAS, CG8 ISTAT (02/22/2018 10:32 EDT) pH, i-STAT 7.40 7.35 - 7.45 02/22/2018 12:55 [facility] pCO2, i-STAT 45 35 - 45 mmHg 02/22/2018 12:55 [facility] pO2, i-STAT 55(L) 80 - 105 mmHg 02/22/2018 12:55 [facility] TCO2, i-STAT 29(H) 23 - 27 mEq/L 02/22/2018 12:55 [facility] O2 Saturation 88(L) 95 - 98 % 02/22/2018 12:55 [facility] Sodium, i-STAT 141 136 - 145 mEq/L 02/22/2018 12:55 [facility] Potassium, i-STAT 4.6 3.5 - 5.0 mEq/L 02/22/2018 12:55 [facility] Glucose, I-STAT 180(H) 70 - 100 mg/dl 02/22/2018 12:55 [facility] Hematocrit,iSTA T 29(L) 34.9 - 44.4 % 02/22/2018 12:55 [facility] Calcium, Ionized 1.07(L) 1.12 - 1.32 mmol/L 02/22/2018 12:55 [facility] Base Excess, i-STAT 3 02/22/2018 12:55 [facility] Sample Type NOT GIVEN 02/22/2018 12:55 [facility] supervisor car and yard ID [phone] 02/22/2018 12:55 EDT [facility] Comment: Test performed by Perfusion For non-arterial reference ranges, please see ISTAT procedure. BLOOD SPECIMEN / Unknown 02/22/2018 10:32 EDT 02/22/2018 12:55 EDT us Tyrell Vela MD CHEMISTRY & BLOOD GAS ORD ERABLES Final Result Performing Organization Address [facility]/ZIP Co de Phone Number [facility] [address] [place] [address] * ACT, CELITE ISTAT (02/22/2018 10:31 EDT) Activated Clotting Time 607 02/22/2018 11:54 EDT [facility] supervisor car and yard ID [phone] 02/22/2018 11:54 EDT [facility] Comment: Test performed by Perfusion Baseline ref range is less than or equal to 160 seconds For non baseline ref ranges see procedure. BLOOD SPECIMEN / Unknown 02/22/2018 10:31 EDT 02/22/2018 11:54 EDT us Tyrell Vela MD POINT OF CARE TEST ORDERA BLES Final Result Performing Organization Address [facility] Co de Phone Number [facility] [address] [place] [address] * (ABNORMAL) BLOOD GAS, CG8 ISTAT (02/22/2018 10:05 EDT) pH, i-STAT 7.43 7.35 - 7.45 02/22/2018 12:55 EDT [facility] pCO2, i-STAT 48(H) 35 - 45 mmHg 02/22/2018 12:55 T [facility] pO2, i-STAT 649(H) 80 - 105 mmHg 02/22/2018 12:55 T [facility] TCO2, i-STAT 33(H) 23 - 27 mEq/L 02/22/2018 12:55 EDT [facility] O2 Saturation 100(H) 95 - 98 % 02/22/2018 12:55 EDT [facility] Sodium, i-STAT 139 136 - 145 mEq/L 02/22/2018 12:55 [facility] Potassium, i-STAT 5.0 3.5 - 5.0 mEq/L 02/22/2018 12:55 [facility] Glucose, I-STAT 183(H) 70 - 100 mg/dl 02/22/2018 12:55 [facility] Hematocrit,iSTA T 29(L) 34.9 - 44.4 % 02/22/2018 12:55 [facility] Calcium, Ionized 1.02(L) 1.12 - 1.32 mmol/L 02/22/2018 12:55 [facility] Base Excess, i-STAT 8 02/22/2018 12:55 [facility] Sample Type NOT GIVEN 02/22/2018 12:55 [facility] supervisor car and yard ID [id number] 02/22/2018 12:55 [facility] Comment: Test performed by Perfusion For non-arterial reference ranges, please see ISTAT procedure. BLOOD SPECIMEN / Unknown 02/22/2018 10:05 EDT 02/22/2018 12:55 EDT us Tyrell Vela MD CHEMISTRY & BLOOD GAS ORD ERABLES Final Result [facility] [address] [place] [address] * ACTTAI ISTAT (02/22/2018 10:04 EDT) Activated Clotting Time 493 02/22/2018 11:54 EDT [facility] supervisor car and yard ID [id number] 02/22/2018 11:54 T [facility] Comment: Test performed by Perfusion Baseline ref range is less than or equal to 160 seconds For non baseline ref ranges see procedure. BLOOD SPECIMEN / Unknown 02/22/2018 10:04 EDT 02/22/2018 11:54 EDT us Tyrell Vela MD POINT OF CARE TEST ORDERA BLES Final Result Performing Organization Address City/[facility]/ZIP Co de Phone Number [facility] [address] [place] [address] * ACT, CELITE ISTAT (02/22/2018 9:19 EDT) Activated Clotting Time 489 02/22/2018 9:58 EDT [facility] supervisor car and yard ID [phone] 02/22/2018 9:58 EDT [facility] Comment: Test performed by Perfusion Baseline ref range is less than or equal to 160 seconds For non baseline ref ranges see procedure. BLOOD SPECIMEN / Unknown 02/22/2018 9:19 EDT 02/22/2018 9:58 EDT us Tyrell Vela MD POINT OF CARE TEST ORDERA BLES Final Result Performing Organization Address [facility] Co de Phone Number [facility] [address] [place] [address] * (ABNORMAL) BLOOD GAS, CG8 ISTAT (02/22/2018 8:43 EDT) pH, i-STAT 7.39 7.35 - 7.45 02/22/2018 12:55 [facility] pCO2, i-STAT 47(H) 35 - 45 mmHg 02/22/2018 12:55 [facility] pO2, i-STAT 240(H) 80 - 105 mmHg 02/22/2018 12:55 [facility] TCO2, i-STAT 29(H) 23 - 27 mEq/L 02/22/2018 12:55 [facility] O2 Saturation 100(H) 95 - 98 % 02/22/2018 12:55 [facility] Sodium, i-STAT 144 136 - 145 mEq/L 02/22/2018 12:55 [facility] Potassium, i-STAT 4.0 3.5 - 5.0 mEq/L 02/22/2018 12:55 [facility] Glucose, I-STAT 111(H) 70 - 100 mg/dl 02/22/2018 12:55 [facility] Hematocrit,iSTA T 35 34.9 - 44.4 % 02/22/2018 12:55 EDT [facility] Calcium, Ionized 1.13 1.12 - 1.32 mmol/L 02/22/2018 12:55 EDT [facility] LABORATORY SERVICES Base Excess, i-STAT 3 02/22/2018 12:55 EDT [facility] Sample Type NOT GIVEN 02/22/2018 12:55 EDT [facility]OR[facility] supervisor car and yard ID [id number] 02/22/2018 12:55 EDT [facility] Comment: Test performed by Perfusion For non-arterial reference ranges, please see ISTAT procedure. BLOOD SPECIMEN / Unknown 02/22/2018 8:43 EDT 02/22/2018 12:55 EDT us Tyrell Vela MD CHEMISTRY & BLOOD GAS ORD ERABLES Final Result Performing Organization Address City/[facility]/ZIP Co de Phone Number [facility] [address] [place] [address] * ACT, CELITE ISTAT (02/22/2018 8:42 EDT) Activated Clotting Time 148 02/22/2018 9:58 EDT [facility] supervisor car and yard ID [id number] 02/22/2018 9:58 EDT [facility] Comment: Test performed by Perfusion Baseline ref range is less than or equal to 160 seconds For non baseline ref ranges see procedure. BLOOD SPECIMEN / Unknown 02/22/2018 8:42 EDT 02/22/2018 9:58 EDT us Tyrell Vela MD POINT OF CARE TEST ORDERA BLES Final Result Performing Organization Address City/[facility]/ZIP Co de Phone Number [facility] [address] [place] [address] * ABO/RH (02/22/2018 6:52 EDT) [facility] Rh Factor Positive [facility] BLOOD BANK 02/22/2018 6:52 EDT us Qing Hui MD MSc BLOOD BANK TESTS Final R esult Performing Organization Address [facility]/ZIP Co de Phone Number [facility] [address] [place] [address] * CREATININE (02/22/2018 6:52 EDT) Creatinine 0.66 0.52 - 1.04 mg/dl 02/22/2018 7:21 EDT [facility] GFR, Calculated 89 >60 ml/min/1.7 3m2 02/22/2018 7:21 EDT [facility] Comment: eGFR calculated using CKD-EPI equation for non Americans. Multiply eGFR by 1.16 for Americans. Blood specimen (specimen) BLOOD SPECIMEN / Unknown 02/22/2018 6:52 EDT 02/22/2018 6:58 EDT us Tyrell Vela MD CHEMISTRY & BLOOD GAS ORD ERABLES Final Result Performing Organization Address [facility] Co de Phone Number [facility] [address] [place] [address] * BUN (02/22/2018 6:52 EDT) BUN 16 10 - 26 mg/dl 02/22/2018 7:21 EDT [facility] Blood specimen (specimen) BLOOD SPECIMEN / Unknown 02/22/2018 6:52 EDT 02/22/2018 6:58 EDT us Tyrell Vela MD CHEMISTRY & BLOOD GAS ORD ERABLES Final Result Performing Organization Address [facility] Co de Phone Number [facility] [address] [place] [address] * ANESTH TRANSESOPHAGEAL ECHO (02/22/2018 6:50 EDT) Anatomical Region Laterality Modality Other 02/22/2018 6:50 EDT Narrative 02/22/2018 6:50 EDT Non Reportable Exam Procedure Note WEB CONTENT WRITER, IMAGING - 02/22/2018 Non Reportable Exam us Arabella Quesada MD CARDIAC ECHO ORDERAB LES Final Result * ORDERS - SCANNED (02/10/2018 11:37 EDT) 02/10/2018 11:3 7 EDT us Scan 2 Area Safety Manager ADMISSION ORDERABLES Final Result documented in this encounter Visit Diagnoses Diagnosis Nonrheumatic aortic valve stenosis- Primary Aortic valve disorders 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, unspecified vessel or lesion type (HCC-CMS) Nonrheumatic aortic valve stenosis Aortic valve disorders Somnolence Other alteration of consciousness 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 (HCC-CMS) documented in [...] mg, intravenous, NOW X1, 1 dose, On Birgit 02/25/18 at 0415, Routine Given 02/25/2018 6:31 EDT [...] 02/27/18 at 1311, Low blood sugar, Routine HYDROmorphone [...] Pedro RN) 0644 (Given - Provider: Iza Pedro, STACIE)1324 (Given - Provider: Armando Dey RN)1957 (Given - Provider: Iza Pedro RN - [...] Pedro, STACIE) 0623 (Given - Provider: Iza Pedro RN) metoprolol [...] Sherry Queen RN)2202 (Given - Provider: Iza Pedro, STACIE) 08 (Given - Provider: Armando Dey RN) metoprolol (LOPRESSOR) tablet 75 mg 75 mg, oral, 2 TIMES DAILY, First dose (after last modification) on Thu02/26/18 at 2100, Until Discontinued, Routine 2000 (Given - Provider: Iza Pedro, STACIE) 802 (Given - Provider: Shireen Medrano, STACIE) potassium chloride SA (K-DUR, KLOR-CON) tablet 10 [...] Discontinued, Routine 2202 (Given - Provider: Iza Pedro, STACIE) 08 (Given - Provider: Armando Dey RN)2000 (Not Given - Provider: Iza Pedro RN - Reason: Patient/family refused) 08 (Given - Provider: Shireen Medrano RN) sertraline (ZOLOFT) tablet 50 mg 50 mg, oral, DAILY, First dose on Thu02/23/18 at 0900, Until Discontinued, Routine 910 (Given - Provider: Sherry Queen RN) 08 (Given - Provider: Armando Dey RN) 0803 (Given - Provider: Shireen Medrano, RN) simvastatin (ZOCOR) tablet 20 mg 20 mg, oral, DAILY, First dose on Thu02/23/18 at 0900, Until Discontinued, Routine 0912 (Given - Provider: Sherry Queen RN) 0810 (Given - Provider: Armando Dey RN) 0803 (Given - Provider: Shireen Medrano, RN) Continuous Medication Order 02/25/2018 02/26/2018 02/27/2018 [...] intravenous, EVERY 6 HOURS PRN, Starting on 02/22/18 at 1219, Until 02/27/18 at 1311, Nausea, Routine 0236 (Given - Provider: Natalia Cox, RN) 1352 (Given - Provider: Armando Dey, STACIE) traMADol (ULTRAM) tablet 50 mg 50 mg, oral, EVERY 6 HOURS PRN, Starting on Thu02/24/18 at 1416, Until 02/27/18 at 1311, Pain, Routine 1813 (Given - Provider: Marni Mckeon RN) 0056 (Given - Provider: Iza Pedro, STACIE)1323 [...] dextrose 50 % solution 12.5-25 g 02/23/20 gabapentin (NEURONTIN) solution 300 mg HYDROmorphone injection [...] 10/2017 documented in this encounter Care Teams Blanker Press Operator Relationship Specialty Start Date End Date Kit Burch MD [facility] PROFESSIONAL [address] [place] [address] PCP - General 01/15/18 10/29/23 documented as of this encounter
--- OUTSIDE RECORDS SUMMARY | 2024-07-25 17:58 | XMS_ITS | Encounter Summary ---
Author Organization [facility] Address [address] [place] [address] Care Team Providers Care Livestock Commission Agent Name Role Phone Unavailable Primary Care Provider Unavailabl e Encounter Details Date Type Department Care Team (Late st Contact Info) Description 02/15/2007 Results Only [facility] - Maple conversion [address] [place], [place] [phone] Arabella Fajardo MD [place] Location [address] [place] [address] Social History Tobacco Use Types Packs/Day Years [...] Office Visit [facility] Dermatology [address] [place] [address], [place], [place] [phone] Cynthia Salinas MD [address] [place] [address], [facility] 5 [place] [address] 07/27/2025 Hospital Encounter [facility] OR [address] [place] [phone] Vicki Main MD [address] [place] [address], [facility] 4 [place] [address] Scheduled Procedures Name Priority Associated [...] 02/15/2007 12:3 1 EDT 02/15/2007 21:18 EDT us Arabella Fajardo MD CHEMISTRY & BLOOD GAS ORDERAB LES Final Result [facility] [address] [place] [address] documented in this encounter Visit Diagnoses Not on filedocumented in this encounter
--- OUTSIDE RECORDS SUMMARY | 2024-07-25 17:58 | XMS_ITS | Encounter Summary ---
Author Organization [facility] Address [address] [place] [address] Care Team Providers Care Hazardous Waste Material Technician Name Role Phone Kit Burch MD Primary Care Provider [phone] Reason for Visit * Reason Onset Date Comments Pre-visit Planning 02/08/2018 Encounter Details Date Type Department Care Team (Late st Contact Info) Description 02/08/2018 Telephone [facility] [place] [address] Sharla Clements, RN [address] [place] [address] Pre-visit Planning Social History Tobacco Use Types [...] Miscellaneous Notes * Telephone Encounter - Sharla Clements, RN - 02/08/[address] [address] (Toll Free) (Office) Preoperative Instructions - Cardiac Surgery Patients Dear Ms. Liya Anders, Welcome to the Division of Cardiothoracic Surgery at the [facility]. We look forward to making your stay [...] located in the Main Entrance of the Telephone Collector Center at the [facility]. If you have been pre-registered over the telephone, you will still need to stop at Registration. Ifyou use the parking garage, take the elevator to Level 3 and continue down the malik to Registrationwhich is on your left, if you use the [facility] Elevators, and on your right if you use the [facility] Elevators. If you use Dry [employer]er Parking, enter the front door (Level 3 [...] Hold. We have Family Centered Care at [facility] thus the number of family and [...] those of you who reside outside the [facility]), should you or your loved ones require accommodations during your hospitalization. Discounts apply at many, thus remind the Hotel / Motel that you are a patient or family member to secure the discount that may be offered. If you need aletter for the discount or further information contact The Office of Patient and Family Advocacy [phone] for assistance. Additional resources and information are also available on our [facility] web site at [email or web address]. Your length of stay at the [...] be registered under (if staying at a [facility]).In the event of a scheduling change, we [...] Primary Care Physician / Doctor and your Music Specialist / Hear Doctor if any of your [...] [facility]. You will be given another inspirometer at [...] additional bras following discharge, you may call [facility] at or or Web Site: [email or web address]. While waiting for your cardiac surgery, dental [...] most comfortable. Do not wear any nail georgian, makeup, powder, lotion, deodorant or jewelry of [...] your Primary Care Physician / Doctor or Music Specialist / Doctor (for cardiac surgery patients). If [...] Description 03/08/2025 11:00 EDT Office Visit [facility] Dermatology [address] [facility] [place], [place] [address] Cynthia Salinas MD 111 [facility], [facility] 5 [place] [phone] 07/27/2025 Hospital Encounter [facility] OR [address] [place], [place] [phone] Vicki Main MD 111 [facility], [facility] 4 [place] [address] Scheduled Procedures Name Priority Associated Diagnoses Date/Ti me INSERTION, CRANIAL NERVE STIMULATOR CINTHIA (obstructive sleep apnea) documented as of this encounter Visit Diagnoses Not on filedocumented in this encounter Care Teams Hazardous Waste Material Technician Relationship Specialty Start Date End Date Kit Burch MD [facility] [address] [place] [address] PCP - General 01/15/18 10/29/23 documented as of this encounter
--- OUTSIDE RECORDS SUMMARY | 2024-07-25 17:58 | XMS_ITS | Encounter Summary ---
Author Organization [facility] Address [address] [place] [address] Care Team Providers Care Bioassayist Name Role Phone Kit Burch MD Primary Care Provider [phone] Reason for Visit * Reason Onset Date Comments Other 02/08/2018 Encounter Details Date Type Department Care Team (Late st Contact Info) Description 02/08/2018 Telephone [facility] Cardiothoracic Surgery - [facility] [address] [place] [address] Sharla Clements RN [address] [place] [address] Other Social History Tobacco Use Types Packs/Day [...] Encounter - Sharla Clements RN - 02/08/2018 1424 EDT Cardiac Surgery Nursing Pre-Operative Teaching I [...] Mechanical Valve Utilized NA Antibiotic Prophylaxis Handout [place] [employer] for Prevention of Infective Bacterial [...] graft closure risk reviewed with continued smoking Hibiclegarrett Soap x 2 bottles with instructions given [...] surgery Note routed to Case Management and Food Counselor if there are discharge needs anticipated documented in this encounter Plan of Treatment Upcoming Encounters Date Type Department Care Team (Late st Contact Info) Description 03/08/2025 11:00 EDT Office Visit [facility] Dermatology [address] [facility] [place], [place] [address] Cynthia Salinas MD [address] [place] [address], [facility] 5 [place] [address] 07/27/2025 Hospital Encounter [facility] OR [address] [place], [place] [phone] Vicki Main MD 111 [facility], [facility] 4 [place] [address] Scheduled Procedures Name Priority Associated Diagnoses Date/Ti me INSERTION, CRANIAL NERVE STIMULATOR CINTHIA (obstructive sleep apnea) documented as of this encounter Visit Diagnoses Not on filedocumented in this encounter Care Teams Bioassayist Relationship Specialty Start Date End Date Kit Burch MD [address] [place] [address] [address] [place] [address] PCP - General 01/15/18 10/29/23 documented as of this encounter
--- OUTSIDE RECORDS SUMMARY | 2024-07-25 17:58 | XMS_ITS ---
Author Organization Unknown Address [address] [place] [phone] Phone Care Team Providers Care Finance Lecturer Name Role Phone CHIDI GALLEGOS Attending Unavailable Immunization Immunization Date Status Additional Notes Code Code System pneumococcal polysaccharide PPV23 03/02/2012 Completed 33 CVX Results MM DIGITAL SCR W PAIGE BILATE RAL - Completed: 04/10/2021 13:51 LOINC: Digital mammograms were inte rpreted according to the usual protocol including computer analysis with trend.lyx system including tomosynthesis. Comparison is made with [...] D Saturday, April 10, 2021 1:54:46 PM [id number] Electronically Reviewed and Signed By: LETICIA JACK M.D. RADIOLOGIST 04/11/21 08:31 TECHNOLOGIST: Natalia Mc, RT (R)(M)(CT) Social History Type Status Start Date End Date Code Code Syst em Smoking History Never smoker (Never Smoked) 555657456 SNOMED CT Sex Female Assessment You had [...] NOS L LEG active SNOMED-CT GERD active 117935264 SNOMED-CT HYPOTHYROIDISM active 62677483 SNOME D-CT CHF active 42980261 SNOMED-CT Allergies and Adverse Reactions Allergy Substance Reaction Severity Start Date Concern Status Co de Code System MORPHINE ?hallucinations (SNOMED-CT: null) Moderate Active 7045 RxNorm Plan of Treatment No Data Found Encounters Encounter Diagnosis Start Date Code Code Sys tem Encounter for screening mamm ogram for malignant neoplasm of breast 04/10/2021 SNOMED-CT Personal Care Team Section Performer Name Performer Role Active Date Inactive Da te
--- OUTSIDE RECORDS SUMMARY | 2024-07-25 17:58 | XMS_ITS | Encounter Summary ---
Author Organization [facility] Address [address] [place] [address] Care Team Providers Care Maintenance Foreman Name Role Phone Jewel Fontenot MD Primary Care Provider [phone] Reason for Visit * Reason Onset Date Comments Referral Request 12/24/2017 Elective Referr al Encounter Details Date Type Department Care Team (Late st Contact Info) Description 12/24/2017 Telephone [facility] Cardiothoracic Surgery - [address] [address] Corinne Burnette MD [address] [place] [address], Level [address] [place] [address] Referral Request (Elective Referral) Social [...] Fontenot If cardiac cath completed, date and bicycle courier? Not done LV function or EF %? EF 65-70% on recent echo Network Communications Engineer following patient? Dr. De Dios _ Medication [...] Testing Echo - date completed: 11/23/17 at [facility] - spoke with Daily at Dr. De [...] Info) Description 03/08/2025 11:00 EDT Office Visit [facility] Dermatology 130 [facility], [place] [address] Cynthia Salinas MD 111 [facility] 5 [place] [address] 07/27/2025 Hospital Encounter [facility] OR [address] [place] [address] Vicki Main MD 111 [facility] 4 [place] [address] Scheduled Procedures Name Priority Associated Diagnoses Date/Ti me INSERTION, CRANIAL NERVE STIMULATOR CINTHIA (obstructive sleep apnea) documented as of this encounter Visit Diagnoses Not on filedocumented in this encounter Care Teams Maintenance Foreman Relationship Specialty Start Date End Date Jewel Fontenot MD [address] [place] [address] [address] [place] [address] PCP - General 06/01/15 01/14/18 documented as of this encounter
--- OUTSIDE RECORDS SUMMARY | 2024-07-25 17:58 | XMS_ITS | Encounter Summary ---
Author Organization [facility] Address [address] [place] [address] Care Team Providers Care Way Inspector Name Role Phone Jewel Fontenot MD Primary Care Provider [phone] Encounter Details Date Type Department Care Team (Late st Contact Info) Description 12/28/2017 Results Only [facility] Cardiothoracic Surgery - [address] [phone] Tyrell Vogt MD Social History Tobacco Use [...] Office Visit [facility] Dermatology [address] [facility], [place], [place] [phone] Cynthia Salinas MD [address] [place] [address] 5 [place] [address] 07/27/2025 Hospital Encounter [facility] OR [address] [place] [address] Vicki Main MD [address] [place] [address], [facility] 4 [place] [phone] Scheduled Procedures Name Priority Associated Diagnoses Date/Ti me INSERTION, CRANIAL NERVE STIMULATOR CINTHIA (obstructive sleep apnea) documented as of this encounter Visit Diagnoses Not on filedocumented in this encounter Care Teams Way Inspector Relationship Specialty Start Date End Date Jewel Fontenot MD [address] [facility] [address] [place] [address] PCP - General 06/01/15 01/14/18 documented as of this encounter
--- OUTSIDE RECORDS SUMMARY | 2024-07-25 17:58 | XMS_ITS | Encounter Summary ---
Author Organization [facility] Address [address] [place] [address] Care Team Providers Care Tailing Machine Operator Name Role Phone Kit Burch MD Primary Care Provider [phone] Reason for Visit * Reason Onset Date Comments Patient Information Update 02/09/2018 Encounter Details Date Type Department Care Team (Late st Contact Info) Description 02/09/2018 Telephone [facility] Cardiothoracic Surgery - [address] [phone] Sharla Clements RN [address] [place] [address] Patient Information Update Social History Tobacco Use [...] Info) Description 03/08/2025 11:00 EDT Office Visit [facility] Dermatology 130 [facility], [place], [place] [address] Cynthia Salinas MD 111 [facility], Level [address] [place] [phone] 07/27/2025 Hospital Encounter [facility] OR [address] [place], [place] [phone] Vicki Main MD 111 [facility], Level [address] [place] [address] Scheduled Procedures Name Priority Associated Diagnoses Date/Ti me INSERTION, CRANIAL NERVE STIMULATOR CINTHIA (obstructive sleep apnea) documented as of this encounter Visit Diagnoses Not on filedocumented in this encounter Care Teams Tailing Machine Operator Relationship Specialty Start Date End Date Kit Burch MD [address] [place] [address] [address] [place] [phone] PCP - General 01/15/18 10/29/23 documented as of this encounter
--- OUTSIDE RECORDS SUMMARY | 2024-07-25 17:58 | XMS_ITS | Encounter Summary ---
Author Organization [facility] Address [address] [place] [address] Care Team Providers Care Preformer Impregnated Fabrics Name Role Phone Kit Burch MD Primary Care Provider [phone] Reason for Visit * Reason Onset Date Comments Other 01/28/2018 change in surger y date Encounter Details Date Type Department Care Team (Late st Contact Info) Description 01/28/2018 Telephone [facility] Cardiothoracic Surgery - [address] [address] Tyrell Vogt MD Other (change [...] [facility] Dermatology 130 [facility] [place] [address] Cynthia Salinas MD [address] [place] [address] 5 [place] [address] 07/27/2025 Hospital Encounter [facility] [place] [address] [place] [address] Vicki Main MD [address] [place] [address] 4 [place] [address] Scheduled Procedures Name Priority Associated Diagnoses Date/Ti me INSERTION, CRANIAL NERVE STIMULATOR CINTHIA (obstructive sleep apnea) documented as of this encounter Visit Diagnoses Not on filedocumented in this encounter Care Teams Preformer Impregnated Fabrics Relationship Specialty Start Date End Date Kit Burch MD [address] [place] [address] [address] [place] [phone] PCP - General 01/15/18 10/29/23 documented as of this encounter
--- OUTSIDE RECORDS SUMMARY | 2024-07-25 17:58 | XMS_ITS | Encounter Summary ---
Author Organization [facility] Address [address] [place] [address] Care Team Providers Care Paraoptometric Name Role Phone Unavailable Primary Care Provider Unavailabl e Encounter Details Date Type Department Care Team (Late st Contact Info) Description 12/03/2004 Results Only [facility] - Maple conversion [address] [place], [place] [phone] Arabella Fajardo MD [place] Location [address] [place] [address] Social History Tobacco Use Types Packs/Day Years [...] Info) Description 03/08/2025 11:00 EDT Office Visit [facility] Dermatology [address] [place] [address], [place], [place] [phone] Cynthia Salinas MD [address] [place] [address], [facility] 5 [place] [address] 07/27/2025 Hospital Encounter [facility] OR [address] [place] [phone] Vicki Main MD [address] [place] [address], [facility] 4 [place] [address] Scheduled Procedures Name Priority Associated [...] LAB 12/03/2004 9:06 EDT 12/03/2004 22:15 EDT us Arabella Fajardo MD CHEMISTRY & BLOOD GAS ORDERAB LES Final Result [facility] [address] [place] [address] documented in this encounter Visit Diagnoses Not on filedocumented in this encounter
--- OUTSIDE RECORDS SUMMARY | 2024-07-25 17:58 | XMS_ITS | Encounter Summary ---
Author Organization [facility] Address [address] [place] [address] Care Team Providers Care Director Business Systems Name Role Phone Unavailable Primary Care Provider Unavailabl e Encounter Details Date Type Department Care Team (Latest Contact Info) Description 04/08/2002 9:00 EDT - 04/08/2002 11:59 EDT Hospital Encounter [facility] General Surgery Unit [address] [place], [place] [phone] Vignesh Barkley MD [address] [place] [phone] Discharge Disposition: Home or Self Care [...] Description 03/08/2025 11:00 EDT Office Visit [facility] [place] 130 [facility], [place] [address] Cynthia Salinas MD 111 [facility], [facility] 5 [place] [address] 07/27/2025 Hospital Encounter [facility] OR [address] [place] [address] Vicki Main MD [address] [place] [address], Level [address] [place] [address] Scheduled Procedures Name Priority Associated Diagnoses Date/Ti me INSERTION, CRANIAL NERVE STIMULATOR CINTHIA (obstructive sleep apnea) documented as of this encounter Visit Diagnoses Not on filedocumented in this encounter
[2024-07-25 18:42] LABS: Anion Gap 7.1 mmol/L (3-11); BUN 41 mg/dL (7-18); CO2 29.9 mmol/L (21.0-32.0); CREATININE 1.6 mg/dL (0.55-1.02); Calcium 9.4 mg/dL (8.5-10.1); Chloride 109 mmol/L (98-107); Estimated GFR 33.01 (mL/min/1.73m2); Glucose 104 mg/dL (74-106); Potassium 5.3 mmol/L (3.5-5.1); Sodium 146 mmol/L (136-145)
== END 2024-07-25 17:51 | disposition home or self-care (01) ==
LOC: NCHCN 17:50
PROVIDERS: PCP Family Medicine; Visit Provider Family Medicine
DX: E87.6 Hypokalemia (principal)
CPT/HCPCS: 80048

== ENCOUNTER → 2024-08-08 13:51 | Outpatient (BNVA) | payer MEDICARE, MEDICAID, SELFPAY | PROVIDERS: PCP Family Medicine; Referring Provider Family Medicine; Visit Provider Podiatrist | DX: I70.203 Unspecified atherosclerosis of native arteries of extremities, bilateral legs (principal); M79.671 Pain in right foot; M79.672 Pain in left foot; I87.2 Venous insufficiency (chronic) (peripheral); L60.3 Nail dystrophy; G57.81 Other specified mononeuropathies of right lower limb; G57.82 Other specified mononeuropathies of left lower limb; G57.61 Lesion of plantar nerve, right lower limb; G57.02 Lesion of sciatic nerve, left lower limb | CPT/HCPCS: 64455; J0702; J1100 ==

== ENCOUNTER 2024-08-09 02:48 | Outpatient (CLI) | payer MEDICARE, MEDICAID, SELFPAY ==
--- NOTE | 2024-08-09 | DI.CT_ITS ---
Exam(s) CT BRAIN CTA EXAM: CT BRAIN CTA CLINICAL HISTORY: HEADACHE R51.9,PAIN IN FACE LT SIDE,? TRIGEMINAL NEURALGIA VS GCA. TECHNIQUE: Imaging Protocol: Axial CT angiography was performed with multi-slice acquisition and mu lti-planar and/or 3D reconstructions. CONTRAST MATERIAL: Intravenous: Omnipaque 350 contrast volume:70 mL COMPARISON: No exams were available for comparison FINDINGS: CT Head W/O: Ventricles and Extra axial spaces: Normal in size and morphology for the patient's age. Hemorrhage: None. 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 There is no evidence of an acute territorial infarct. No acute mass effect is present. Midline shift: None. Brainstem/Cerebellum: Normal. Calvarium: Normal. Visualized Paranasal sinuses/Mastoids: Clear. Soft Tissues: Unremarkable. Enhancement: Unremarkable. CTA Brain W: Internal Carotid Arteries: Atherosclerotic calcification is seen in the internal carotid arteries wit h less than 50 percent stenosis. No occlusion or aneurysm is seen. Anterior Cerebral Arteries: Right: No aneurysm, occlusion or significant stenosis. Left: No aneurysm, occlusion or significant stenosis. Middle Cerebral Arteries: Right: No aneurysm, occlusion or significant stenosis. Left: No aneurysm, occlusion or significant stenosis. Posterior cerebral Arteries: Right: No aneurysm, occlusion or significant stenosis. Left: No aneurysm, occlusion or significant stenosis. Vertebral Arteries: Right: No aneurysm, occlusion or significant stenosis. Left: No aneurysm, occlusion or significant stenosis. Basilar Artery: No aneurysm, occlusion or significant stenosis. IMPRESSION: 1. No evidence of large vessel occlusion or significant stenosis on the CT angiography of the head. 2. No acute intracranial process. RADIATION DOSE DELIVERED: 1,795.31mGy.cm Total DLP DATA REPOSITORY: All CT scans at this facility are submitted to the National Radiology Data Registry (NRDR) Dose Index Registry (DIR) with the [employer] (ACR). RADIATION OPTIMIZATION: All CT scans at this facility use at least one of these dose optimization te chniques: automated exposure control; mA and/or kV adjustment per patient size (includes targeted exa ms where dose is matched to clinical indication); or iterative reconstruction.
[2024-08-09 14:59] LABS: CREATININE 1.4 mg/dL (0.55-1.02); Estimated GFR 38.75 (mL/min/1.73m2)
[2024-08-09] MEDS: Normal Saline - Diluent 50 ML VIAL IJ (15:09)
[2024-08-09] MEDS: Omnipaque 350 MG/ML 500 ML BTL-Imaging package 70 ML IJ (15:10)
== END 2024-08-09 03:08 ==
PROVIDERS: PCP Family Medicine; Visit Provider Family Medicine
DX: R51.9 Headache, unspecified (principal)
CPT/HCPCS: 70496; 82565

== ENCOUNTER 2024-08-23 14:18 | Outpatient (REF) | payer MEDICARE, MEDICAID, SELFPAY ==
--- OUTSIDE RECORDS SUMMARY | 2024-08-23 14:21 | XMS_ITS | Encounter Summary ---
Author Organization [facility] [place] [address] Care Team Providers Care Face And Fill Packer Name Role Phone None Primary Care Provider Unavailabl e Reason for Visit * Diagnostic Test (Routine) - Closed Specialty Diagnoses / Procedures Referred By Contac t Referred To Contact Diagnoses PAD (peripheral artery disease) Procedures DEION, legs, multiple levels Laura Vu, JEANIE [facility] [place] [address] [facility] Vascular [place] [address] [place] [address] Referral ID Status Reason Start Date Expiration Date V isits Requested Visits Authorized [id number] Closed Specialty Service Requested 07/26/2024 07/26/2025 1 1 Encounter Details Date Type Department Care Team (Late st Contact Info) Description 08/10/2024 10:30 AM EST Tech [place] [address] Pat Verma PAD (peripheral artery disease) Social History Tobacco Use Types Packs/Day Years Used Date Smoking Tobacco: Former Cigarettes Smokeless Tobacco: Never Sex and Gender Information Value Date Recorded Sex Assigned at Not on file Gender Identity Not on file Sexual Orientation Not on file documented as of this encounter Plan of Treatment Upcoming Encounters Date Type Department Care Team (Late st Contact Info) Description 09/05/2024 11:15 AM EST Laboratory Appointment Lab [address] [place] [phone] 09/05/2024 12:45 PM EST Hospital [place] [address] Guerline Weeks APRN [facility] [place] [address] 09/05/2024 2:00 PM EST Office Visit Vascular Surgery at [facility] [place] [address] Jaylen Melo MD [facility] [place] [address] documented as of this encounter Procedures Procedure Name Priority Date/Time Associated Diagnosis Comments DEION, LEGS, MULTIPLE LEVELS Routine 08/10/2024 10:07 AM EST PAD (peripheral artery disease) documented in this encounter Results * DEION, legs, multiple levels (08/10/2024 10:07 AM EST) VB Text Report Department: Vascular Surgery Lab Patient: [id number] (TROY SILVA) CPT: 86704 Referring Physician: LAURA VU ?? Phone: Indications: Claudication ? PAD Diabetes mellitus: No Findings: Right ?Pressure (mm Hg) ?? DEION ??Waveform ? TBI ?? Brachial Artery ?134 ? Common Femoral Artery ?Monophasic ? Popliteal Artery ? Monophasic ? Dorsalis Pedis (Ankle) Artery ?98 ?0.70 ??Monophasic ? Posterior Tibial (Ankle) Artery ??89 ?0.64 ??Monophasic ? Great Toe ?15 ?0.11 ?? Left ? Pressure (mm Hg) ?? DEION ??Waveform ? TBI ?? Brachial Artery ?140 ? Common Femoral Artery ?Biphasic ? Popliteal Artery ? Monophasic ? Dorsalis Pedis (Ankle) Artery ?91 ?0.65 ??Monophasic ? Posterior Tibial (Ankle) Artery ??107 ? 0.76 ??Monophasic ? Great Toe ?28 ?0.20 ?? Interpretation: RIGHT: Severe lower extremity arterial occlusive disease. Findings suggest iliofemoral disease. LEFT: Severe lower extremity arterial occlusive disease. Findings suggest femoral-poplitea l disease. Comment: The bilateral ankle pressures appear falsely elevated compared to the Doppler waveforms, most likely due to calcified tibial arteries. Thus, disease severity is based on Doppler waveforms and toe pressures. Comparison: ??No previous study in our vascular lab database for comparison. Electronically Signed by: NATALYA BABCOCK M.D. on 2024-08-10 12:23:05 PM [facility] VB Text Report End of Report [facility] 08/10/2024 10:0 7 AM EST Laura Vu APRN VASCULAR ORDERAB[facility] documented in this encounter Visit Diagnoses Diagnosis PAD (peripheral artery disease) Peripheral vascular disease, unspecified documented in this encounter Care Teams Face And Fill Packer Relationship Specialty Start Date End Date None None PCP - General 08/10/24 documented as of this encounter
--- OUTSIDE RECORDS SUMMARY | 2024-08-23 14:21 | XMS_ITS | Encounter Summary ---
[facility] [address] Care Team Providers Care Harness Puller Name Role Phone Unavailable Primary Care Provider Unavailabl e Reason for Referral * Diagnostic Test (Routine) - Closed Specialty Diagnoses / Procedures Referred By Contac t Referred To Contact Diagnoses PAD (peripheral artery disease) Procedures DEION, legs, multiple levels Laura Vu APRN [facility] [place] [address] [facility] Vascular Lab [address] [place] [address] Referral ID Status Reason Start Date Expiration Date V isits Requested Visits Authorized [id number] Closed Specialty Service Requested 07/26/2024 07/26/2025 1 1 Encounter Details Date Type Department Care Team (Late st Contact Info) Description 07/26/2024 Orders [place] [phone] Laura Vu APRN [facility] [place] [address] PAD (peripheral artery disease) Social History Tobacco [...] 09/05/2024 11:15 AM EST Laboratory Appointment Lab [address] [phone] 09/05/2024 12:45 PM EST Hospital [place] [phone] Guerline Weeks APRN [facility] [place] [address] 09/05/2024 2:00 PM EST Office [place] [address] Jaylen Melo MD [facility] [place] [address] documented as of this encounter Results * DEION, legs, multiple levels (08/10/2024 10:07 AM EST) Pathologist [facility] VB Text Report Department: Vascular Surgery Lab Patient: [id number] (TROY SILVA) CPT: 32088 Referring Physician: LAURA VU ?? Phone: Indications: [...]
--- OUTSIDE RECORDS SUMMARY | 2024-08-23 14:21 | XMS_ITS ---
Author Organization Unknown Address [address] [place] [phone] Phone Care Team Providers Care Collision Technician Name Role Phone JACQUELINE MOIZ Lyly Attending Unavailable CHIDI Cohen Primary Unavailable Social History Type Status Start Date End Date Code Code Syst em Smoking History Never smoker (Never Smoked) 992474855 SNOMED CT Sex Female Assessment You had [...] NOS L LEG active SNOMED-CT GERD active 293798307 SNOMED-CT HYPOTHYROIDISM active 93885935 SNOME D-CT CHF active 08497237 SNOMED-CT Allergies and Adverse Reactions Allergy Substance Reaction Severity Start Date Concern Status Co de Code System MORPHINE ?hallucinations (SNOMED-CT: null) Moderate Active 0731 RxNorm Plan of Treatment No Data Found Encounters Encounter Diagnosis Start Date Code Code Sys tem Nonrheumatic aortic valve disorder, unspecified 2021 SNOMED-CT Personal Care Team Section Performer Name Performer Role Active Date Inactive Da te JAMES SACHIN PCP - Primary care physician 1
--- OUTSIDE RECORDS SUMMARY | 2024-08-23 14:21 | XMS_ITS | Clinical Summary ---
Author Organization [facility] Address [facility] [place] [address] Care Team Providers Care Trench Digger Helper Name Role Phone None Primary Care Provider Unavailabl e Allergies Active Allergy Reactions Criticality Noted Date Comments Morphine Other (See Comments) 02/22/2018 hallucinations Propofol 04/14/2018 PT WITH GREAT DIFFICULTY WAKING UP POST ANESTHESIA Medications Medication Sig Dispensed Refills Start Date End Date Status acetaminophen (Tylenol) 500 mg tablet Take 1,000 mg by mouth Every 6 hours. 02/27/2018 Active ascorbic acid, Vitamin C, (Vitamin C) 500 mg tablet Take 500 mg by mouth. Active aspirin EC 81 mg EC (DR) tablet Take 1 tablet by mouth daily. Active calcium carbonate (Tums) 200 mg calcium (500 mg) chewable tablet Take 1 tablet by mouth daily. Active cyanocobalamin, Vitamin B-12, (Vitamin B-12) 100 mcg tablet Take 2,500 mcg by mouth Daily @ 0600. Active dilTIAZem (Cardizem) 30 mg tablet Take 1 tablet by mouth every evening. 09/11/2023 Active docusate sodium (Colace) 100 mg capsule Take 200 mg by mouth. Active furosemide (Lasix) 20 mg tablet Take 1 tablet by mouth daily. Active gabapentin (Neurontin) 100 mg capsule Take 1 capsule by mouth 3 times daily. Active guaiFENesin ER (Mucinex) 600 mg ER 12 hr tablet Take 600 mg by mouth. Active ketoconazole (Nizoral) 2 % Cream APPLY TOPICALLY TO THE AFFECTED AREA DAILY FOR RASH UNDER THE FOLDS 03/02/2024 Active krill oil 500 mg Capsule Take by mouth Daily @ 0600. Active levothyroxine (Synthroid) 100 mcg tablet Take 1 tablet by mouth daily. 09/13/2023 Active lisinopriL (Zestril) 20 mg tablet Take 1 tablet by mouth daily. 08/30/2023 Active melatonin 10 mg chewable tablet Take by mouth nightly. Active metoprolol tartrate (Lopressor) 50 mg tablet Take 50 mg by mouth. Active omeprazole (PriLOSEC) [address] capsule TAKE ONE CAPSULE BY MOUTH EVERY DAY 30 MIN FOR BREAKFAST 08/30/2023 Active sertraline (Zoloft) 100 mg tablet Take 1 tablet by mouth daily. Active simvastatin (Zocor) 20 mg tablet Take 1 tablet by mouth daily. Active traMADoL (Ultram) 50 mg tablet Take 50 mg by mouth Every 6 hours as needed. Active triamcinolone (Kenalog) 0.1 % Cream Apply topically Twice daily. 12/29/2019 Active Zinc Acetate, Oral, (Galzin) 50 mg (zinc) capsule Take by mouth Daily @ 0600. Active UNABLE TO FIND Green lipped muscle A ctive UNABLE TO FIND EB-96 Active APPLE CIDER VINEGAR ORAL Take by mouth. 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, unspecified ulceration site from Last 3 Months Social History Tobacco Use Types Packs/Day Years Used Date Smoking Tobacco: Former Cigarettes Smokeless Tobacco: Never Tobacco Cessation:Counseling Given: Not Answered Sex and Gender Information Value Date Recorded Sex Assigned at Not on file Gender Identity Not on file Sexual Orientation Not on file Last Filed Vital Signs Vital Sign Reading Time Taken Comments Blood Pressure 125/47 08/10/2024 9:52 AM EST Pulse 61 08/10/2024 9:52 AM EST Temperature - - Respiratory Rate - - Oxygen Saturation - - Inhaled Oxygen Concentration - - Weight 74.8 kg (165 lb) 08/10/2024 9:52 AM EST r eported Height 144.8 cm (4' 9) 08/10/2024 9:52 AM EST r eported Body Mass Index 35.71 08/10/2024 9:52 AM EST Plan of Treatment Upcoming Encounters Date Type Department Care Team (Late st Contact Info) Description 09/05/2024 11:15 AM EST Laboratory Appointment Lab [address] [place] [address] 09/05/2024 12:45 PM EST Hospital [place] [phone] [facility] [place] [address] 09/05/2024 2:00 PM EST Office [place] [phone] [facility] DR VASCULAR SURGERY [place], [place] [phone] Health Maintenance Due Date Last Done Comments Hepatitis C Screening 1963 Tetanus/Diphtheria/Pertussis Vaccines (1 - Tdap) 11/26 Pneumoccocal Vaccine: 50+ (1 of 1 - PCV) 1996 Zoster vaccine (1 of 2) 1996 Advance Directive 2001 Bone Density Scan 11/27/2011 RSV Vaccine (1 - 1-dose 75+ series) 2021 Covid-19 Vaccine (2023- season) 2024 Influenza (Flu) vaccine (1 o f 1 - Influenza standard series) 03/27/2024 Procedures Procedure Name Priority Date/Time Associated Diagnosis Comments DEION, LEGS, MULTIPLE LEVELS Routine 08/10/2024 10:07 AM EST PAD (peripheral artery disease) from Last 3 Months Results * DEION, legs, multiple levels (08/10/2024 10:07 AM EST) VB Text Report Department: Vascular Surgery Lab Patient: [id number] (TROY SILVA) CPT: [id number] Referring Physician: LAURA VU ?? Phone: Indications: [...] EST Laura Vu APRN VASCULAR ORDERABLES [facility] from Last 3 Months Care Teams Trench Digger Helper Relationship Specialty Start Date End Date None None PCP - General 08/10/24
--- OUTSIDE RECORDS SUMMARY | 2024-08-23 14:21 | XMS_ITS | Encounter Summary ---
Author Organization [facility] [place] [address] Care Team Providers Care Delicatessen Department Manager Name Role Phone None Primary Care Provider Unavailabl e Encounter Details Date Type Department Care Team (Latest Contact Info) Description 08/10/2024 Travel Social History Tobacco Use Types Packs/Day Years [...] 11:15 AM EST Laboratory Appointment Lab [address] [place] [address] 09/05/2024 12:45 PM EST Hospital [place] [address] Guerline Weeks APRN [facility] [place] [address] 09/05/2024 2:00 PM EST Office [place] [address] Jaylen Melo MD [facility] [place] [address] documented as of this encounter Visit Diagnoses Not on filedocumented in this encounter Care Teams Delicatessen Department Manager Relationship Specialty Start Date End Date None None PCP - General 08/10/24 documented as of this encounter
--- OUTSIDE RECORDS SUMMARY | 2024-08-23 14:21 | XMS_ITS | Encounter Summary ---
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, unspecified ulceration site Faye German DPM [address] [place] [address] [address] [place] [address] [facility] [address] [place] [address] Referral ID Status Reason Start Date Expiration Date V isits Requested Visits Authorized [id number] Closed Consult, Test & Treat 07/25/2024 07/25/2025 1 1 Encounter Details Date Type Department Care Team (Latest Contact Info) Description 07/25/2024 Transcribe Orders eDH Incoming Referrals [phone] Faye German DPM [address] [place] [address] [address] [place] [address] Atherosclerosis of bypass graft of [...] 11:15 AM EST Laboratory Appointment Lab [address] [place] [address] 09/05/2024 12:45 PM EST Hospital [place] [address] Guerline Weeks APRN [facility] [place] [address] 09/05/2024 2:00 PM EST Office [place] [address] Jaylen Melo MD [facility] [place] [address] Scheduled Referrals Name Type Priority Associated Diagnoses [...]
--- OUTSIDE RECORDS SUMMARY | 2024-08-23 14:21 | XMS_ITS | Encounter Summary ---
Author Organization [facility] [place] [address] Care Team Providers Care Gis Web Developer Name Role Phone None Primary Care Provider Unavailabl e Reason for Referral * Diagnostic Test (Routine) - Authorized Specialty Diagnoses / Procedures Referred By Ana caro Referred To Contact Radiology Diagnoses PAD (peripheral artery disease) Procedures CT Angiogram Aortic Lower Extremity Runoff Guerline Weeks APRN 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 [place] [address] PAD (peripheral artery disease) Social History Tobacco [...] Mass Index 35.71 08/10/2024 9:52 AM EST documented in this encounter Progress Notes * Guerline Weeks APRN - 08/10/2024 10:00 AM EST Vascular New Patient This is a new patient to the practice who is being evaluated for PAD and was referred by None. HPI: Troy Silva is a 78 y.o. 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 Ms. Silva presents to clinic with her daughter and granddaughter for PAD evaluation. She experiences BLE claudication that is relieved by rest, is unable to articulate how far she can walk before experiencing pain but was able to walk from the main parking lot to the clinic today without stopping. Her daughter states that she walks very slowly and asserts that the pain is more frequent than her mother expresses today. She denies rest pain and tissue loss, however, she does have frequent leg cramps that occur sporadically, she has found some relief drinking quinine water. She is short of breath when she walks and doesn't walk much. She lives in [place], [place] with her [facility]. She takes a daily 81 mg aspirin and statin. She briefly smoked cigarettes in her teen years, quit when she was 17 years old. PMHx: No past medical history on file. PSxHx: No past surgical history on file. Family Hx: No family history on file. Social Hx: Social History Tobacco Use Smoking status: Former Types: Cigarettes Smokeless tobacco: Never Substance Use Topics Alcohol use: Not on file Medications: Medications 08/10/24 0957 Medication Sig Taking? acetaminophen (Tylenol) 500 mg tablet Take 1,000 mg by mouth Every 6 hours. Yes ascorbic acid, Vitamin C, (Vitamin C) 500 mg tablet Take 500 mg by mouth. Yes aspirin EC 81 mg EC (DR) tablet Take 1 tablet by mouth daily. Yes calcium carbonate (Tums) 200 mg calcium (500 mg) chewable tablet Take 1 tablet by mouth daily. Yes cyanocobalamin, Vitamin B-12, (Vitamin B-12) 100 mcg tablet Take 2,500 mcg by mouth Daily @ 0600. Yes dilTIAZem (Cardizem) 30 mg tablet Take 1 tablet by mouth every evening. Yes docusate sodium (Colace) 100 mg capsule Take 200 mg by mouth. Yes furosemide (Lasix) 20 mg tablet Take 1 tablet by mouth daily. Yes gabapentin (Neurontin) 100 mg capsule Take 1 capsule by mouth 3 times daily. Yes guaiFENesin ER (Mucinex) 600 mg ER 12 hr tablet Take 600 mg by mouth. Yes ketoconazole (Nizoral) 2 % Cream APPLY TOPICALLY TO THE AFFECTED AREA DAILY FOR RASH UNDER THE FOLDS Yes krill oil 500 mg Capsule Take by mouth Daily @ 0600. Yes levothyroxine (Synthroid) 100 mcg tablet Take 1 tablet by mouth daily. Yes lisinopriL (Zestril) 20 mg tablet Take 1 tablet by mouth daily. Yes melatonin 10 mg chewable tablet Take by mouth nightly. Yes metoprolol tartrate (Lopressor) 50 mg tablet Take 50 mg by mouth. Yes omeprazole (PriLOSEC) [address] capsule TAKE ONE CAPSULE BY MOUTH EVERY DAY 30 MIN FOR BREAKFAST Yes sertraline (Zoloft) 100 mg tablet Take 1 tablet by mouth daily. Yes simvastatin (Zocor) 20 mg tablet Take 1 tablet by mouth daily. Yes traMADoL (Ultram) 50 mg tablet Take 50 mg by mouth Every 6 hours as needed. Yes triamcinolone (Kenalog) 0.1 % Cream Apply topically Twice daily. Yes Zinc Acetate, Oral, (Galzin) 50 mg (zinc) capsule Take by mouth Daily @ 0600. Yes UNABLE TO FIND Green lipped muscle Yes UNABLE TO FIND EB-96 Yes APPLE CIDER VINEGAR ORAL Take by mouth. Yes Allergies: Allergies Allergen Reactions Morphine Other (See Comments) hallucinations Propofol PT WITH GREAT DIFFICULTY WAKING UP POST ANESTHESIA Review of Systems: All other ROS negative except as noted in HPI. Physical Exam: Vitals: Vitals: 08/10/24 0952 BP: 125/47 BP Location (NBP): Left arm Patient Position: Sitting BP Cuff Sizes: Adult (25-34 cm) Pulse: 61 Weight: 74.8 kg (165 lb) Height: 144.8 cm (4' 9) General: NAD, appears well Neuro: Alert and oriented, motor sensory grossly intact Lungs: CTA Heart: RRR Abd: Soft, NT, ND, no palpable pulsatile masses Extremity - [place], warm, no ulceration, brisk capillary refill, no edema Vascular: non palpable pedal pulses, difficulty assessing femoral pulses d/t body habitus. Palpableradial pulses. BLE varicose and spider veins. Labs/Studies: Recent Results (from the past 72 hour(s)) DEION, legs, multiple levels Result Value Ref Range VB Text Report Department: Vascular Surgery Lab Patient: [id number] (TROY SILVA) CPT: 01697 Referring Physician: MANDO VU Phone: Indications: Claudication ? PAD Diabetes mellitus: No Findings: Right Pressure (mm Hg) DEION Waveform TBI Brachial Artery 134 Common Femoral Artery Monophasic Popliteal Artery Monophasic Dorsalis Pedis (Ankle) Artery 98 0.70 Monophasic Posterior Tibial (Ankle) Artery 89 0.64 Monophasic Great Toe 15 0.11 Left Pressure (mm Hg) DEION Waveform TBI Brachial Artery 140 Common Femoral Artery Biphasic Popliteal Artery Monophasic Dorsalis Pedis (Ankle) Artery 91 0.65 Monophasic Posterior Tibial (Ankle) Artery 107 0.76 Monophasic Great Toe 28 0.20 Interpretation: RIGHT: Severe lower extremity arterial occlusive disease. Findings suggest aortoiliac disease. LEFT: Severe lower extremity arterial occlusive disease. Findings suggest femoral-popliteal disease. Comment: The bilateral ankle pressures appear falsely elevated compared to the Doppler waveforms, most likely due to calcified tibial arteries. Thus, disease severity is based on Doppler waveforms and toe pressures. Comparison: No previous study in our vascular lab database for comparison. VB Text Report End of Report Assessment/Plan: 78 y.o. female with severe PAD bilaterally demonstrated with DEION study today. She has no BLE ulcerations. We had a thorough discussion about claudication pain vs rest pain today. Shedenies pain currently but says that she does get severe pains frequently day and night. We agree toproceed with CTA abd w/ runoff, I explained the creatinine lab draw and possible hydration therapy p rior to CTA, if necessary. Plan: - RTC in the next 2-4 weeks with CTA abd w/ runoff, SAME DAY appointment with surgeon (any) - Creatinine lab draw - Continue 81 mg aspirin and statin - Continue smoking abstinence Guerline Weeks APRN [facility] documented in this encounter Plan of Treatment Upcoming Encounters Date Type Department Care Team (Late st Contact Info) Description 09/05/2024 11:15 AM EST Laboratory Appointment Lab [address] [place] [phone] 09/05/2024 12:45 PM EST Hospital [place] [phone] Guerline Weeks APRN [facility] [place] [address] 09/05/2024 2:00 PM EST Office [place] [phone] Jaylen Melo MD [facility] [place] [address] Scheduled Orders Name Type Priority Associated Diagnoses Orde r Schedule CT Angiogram Aortic Lower Extremity Runoff Imaging Routine PAD (peripheral artery disease) Expected: 08/24/2024, Expires: 02/23/2025 Creatinine Lab Routine PAD (peripheral artery disease) Expected: 08/24/2024, Expires: 02/23/2025 documented as of this encounter Visit Diagnoses Diagnosis PAD (peripheral artery disease) Peripheral vascular disease, unspecified documented in this encounter Care Teams Gis Web Developer Relationship Specialty Start Date End Date None None PCP - General 08/10/24 documented as of this encounter
--- OUTSIDE RECORDS SUMMARY | 2024-08-23 14:22 | XMS_ITS ---
Author Organization Unknown Address [address] [place] [phone] Phone Care Team Providers Care Automobile Washer Steam Name Role Phone AVRIL Singh Attending Unavailable CHIDI EL Vicki Primary Unavailable Social History Type Status Start Date End Date Code Code Syst em Smoking History Never smoker (Never Smoked) 202908363 SNOMED CT Sex Female Assessment You had [...] NOS L LEG active SNOMED-CT GERD active 318685868 SNOMED-CT HYPOTHYROIDISM active 06873931 SNOME D-CT CHF active 14298724 SNOMED-CT Allergies and Adverse Reactions Allergy Substance Reaction Severity Start Date Concern Status Co de Code System MORPHINE ?hallucinations (SNOMED-CT: null) Moderate Active 7254 RxNorm Plan of Treatment No Data Found Encounters Encounter Diagnosis Start Date Code Code Sys tem 06/12/2022 [id number] SNOMED-CT Personal Care Team Section Performer Name Performer Role Active Date Inactive Da te JAMES SACHIN PCP - Primary care physician 1
--- OUTSIDE RECORDS SUMMARY | 2024-08-23 14:22 | XMS_ITS ---
Author Organization Unknown Address [address] [place] [phone] Phone Care Team Providers Care Furnace Hand Name Role Phone AVRIL Singh Attending Unavailable CHIDI Cohen Primary Unavailable Results XR CALCANEUS 2V RT* - Comple giselle: 05/20/2022 10:20 LOINC: [facility] [place], [place] [address] PACS HOME INSURANCE AGENT REPORT Patient Name: TROY SILVA MRN: Sex: : Age: [id number] F 1945 76 Account: Accession: Admit: StayType: [id number] 05/20/2022 CLINIC Ordered: Order ID: Submitted: Ordering Provider: 05/20/2022 10:17 [id number] [facility] Completed: Technologist: Resulted: 05/21/2022 10:17 [...] em Smoking History Never smoker (Never Smoked) 821257181 SNOMED CT Sex Female Assessment You had [...] NOS L LEG active SNOMED-CT GERD active 705401892 SNOMED-CT HYPOTHYROIDISM active 73474507 SNOME D-CT CHF active 08913074 SNOMED-CT Allergies and Adverse Reactions Allergy Substance Reaction Severity Start Date Concern Status Co de Code System MORPHINE ?hallucinations (SNOMED-CT: null) Moderate Active 7062 RxNorm Plan of Treatment No Data Found Encounters Encounter Diagnosis Start Date Code Code Sys tem 05/20/2022 [id number] SNOMED-CT Personal Care Team Section Performer Name Performer Role Active Date Inactive Da te JAMES SACHIN PCP - Primary care physician 1
--- OUTSIDE RECORDS SUMMARY | 2024-08-23 14:23 | XMS_ITS ---
Author Organization Unknown Address [address] [place] [phone] Phone Care Team Providers Care Billing Manager Name Role Phone AVRIL Singh Attending Unavailable CHIDI EL Vicki Primary Unavailable Social History Type Status Start Date End Date Code Code Syst em Smoking History Never smoker (Never Smoked) 951247904 SNOMED CT Sex Female Assessment You had [...] NOS L LEG active SNOMED-CT GERD active 725793327 SNOMED-CT HYPOTHYROIDISM active 00682215 SNOME D-CT CHF active 89861913 SNOMED-CT Allergies and Adverse Reactions Allergy Substance Reaction Severity Start Date Concern Status Co de Code System MORPHINE ?hallucinations (SNOMED-CT: null) Moderate Active 4912 RxNorm Plan of Treatment No Data Found Encounters Encounter Diagnosis Start Date Code Code Sys tem 07/10/2022 [id number] SNOMED-CT Personal Care Team Section Performer Name Performer Role Active Date Inactive Da te JAMES SACHIN PCP - Primary care physician 1
--- OUTSIDE RECORDS SUMMARY | 2024-08-23 14:24 | XMS_ITS ---
Author Organization Unknown Address [address] [place] [phone] Phone Care Team Providers Care Customer Service Specialist Name Role Phone YULISA Witt Attending Unavailable CHIDI Cohen Primary Unavailable Social History Type Status Start Date End Date Code Code Syst em Smoking History Never smoker (Never Smoked) 577492509 SNOMED CT Sex Female Assessment You had [...] NOS L LEG active SNOMED-CT GERD active 896625206 SNOMED-CT HYPOTHYROIDISM active 08859201 SNOME D-CT CHF active 75016196 SNOMED-CT Allergies and Adverse Reactions Allergy Substance Reaction Severity Start Date Concern Status Co de Code System MORPHINE ?hallucinations (SNOMED-CT: null) Moderate Active 5112 RxNorm Plan of Treatment No Data Found Encounters Encounter Diagnosis Start Date Code Code Sys tem Obstructive sleep apnea syndrome 01/07/2023 67263655 SNOMED-CT Personal Care Team Section Performer Name Performer Role Active Date Inactive Da te JAMES SACHIN PCP - Primary care physician 1
--- OUTSIDE RECORDS SUMMARY | 2024-08-23 14:25 | XMS_ITS ---
Author Organization Unknown Address [address] [place] [address] [phone] Phone Care Team Providers Care Retail Chain Store Area Supervisor Name Role Phone JACQUELINE Desouza Attending Unavailable CHIDI Cohen Primary Unavailable Results BNP (PRO-B NATRIURETIC PEPTI DE) - Collect Date/Time: 05/23/2024 09:08 [facility] ID: [id number] [address] [place] [address] LOINC: 10531-5 Test Value Unit Reference Range Code Code System Flag NT-proBNP 2109.0 pg/mL L=0.0 H=450 32211-2 LOINC H CBC W/ DIFFERENTIAL* - Colle ct Date/Time: 05/23/2024 09:08 [facility] ID: [id number] [address] [place] [address], [address] LOINC: 78316-1 Test Value Unit Reference Range Code Code System Flag WBC 8.04 th/cmm L=5.00 H=10.00 6690-2 LOINC NEUT % 52.6 % L=40.0 H=80.0 LYMPH % 25.6 % L=10.0 H=50.0 MONO % 12.2 % L=2.0 H=12.0 10914-8 LOINC H EOS % 8.1 % L=0.0 H=8.0 H BASO % 1.1 % L=0.0 H=3.0 IG % 0.4 % L=0.0 H=1.1 2514-8 LOINC NRBC % 0.0 % L=0.0 H=0.0 06864-6 LOINC NEUT abs count 4.2 th/cmm L=1.6 H=8.4 751-8 LOINC LYMPH abs count 2.1 th/cmm L=1.5 H=4.0 731-0 LOINC MONO abs count 1.0 th/cmm L=0.2 H=1.0 742-7 LOINC EOS abs count 0.7 th/cmm L=0.0 H=0.5 711-2 LOINC H BASO abs count 0.1 th/cmm L=0.0 H=0.2 704-7 LOINC IG abs count 0.0 th/cmm L=0.0 H=0.1 99267-5 LOINC NRBC abs count 0.0 mil/cmm L=0.0 H=0.0 17884-3 LOINC RBC 3.48 mil/cmm L=3.90 H=5.40 789-8 [...] L (CMP) - Collect Date/Time: 05/23/2024 09:08 [facility] ID: [id number] [address] [place], [place], [address] LOINC: 13087-0 Test Value Unit Reference Range Code Code [...] H=34 2028-9 LOINC ANION GAP 5.7 mmol/L 37160-7 LOINC CALCIUM SERUM 9.0 mg/dL L=8.2 H=10.2 79790-1 LOINC BILIRUBIN TOTAL 0.3 mg/dL L=0.0 H=1.3 1975-2 LOINC ALK. PHOS. 133 U/L L=46 H=116 6768-6 LOINC H SGOT (AST) 21 U/L L=15 H=37 1920-8 LOINC SGPT (ALT) 21 U/L L=12 H=78 1742-6 LOINC TOTAL PROTEIN 7.7 gm/dL L=6.0 H=8.0 2885-2 LOINC ALBUMIN 3.1 gm/dL L=3.4 H=5.0 1751-7 LOINC L AGE 78 years eGFR (non-Afr.Amer.) 36 mL/min 80707-2 LOINC eGFR (Afr-Azerbaijani) 43 mL/min 87763-9 LOINC Social History Type Status Start Date End Date Code Code Syst em Smoking History Never smoker (Never Smoked) 059189638 SNOMED CT Sex Female Assessment You had [...] NOS L LEG active SNOMED-CT GERD active 402997869 SNOMED-CT HYPOTHYROIDISM active 86966625 SNOME D-CT CHF active 20172968 SNOMED-CT Allergies and Adverse Reactions Allergy Substance Reaction Severity Start Date Concern Status Co de Code System MORPHINE ?hallucinations (SNOMED-CT: null) Moderate Active 1922 RxNorm Plan of Treatment No Data Found Encounters Encounter Diagnosis Start Date Code Code Sys tem Aortic valve disorder 05/23/2024 1831045 SNOMED -CT Personal Care Team Section Performer Name Performer Role Active Date Inactive Da tali STEPHENSON PCP - Primary care physician
--- OUTSIDE RECORDS SUMMARY | 2024-08-23 14:27 | XMS_ITS | Continuity of Care Document ---
Author Organization [facility], [facility] Address [address] [place] [address] Care Team Providers Care Clinical Staff Anesthesiologist Name Role Phone JACQUELINE ROCKWELL Vice President Fixed Income [facility] GENERAL SURGERY Gastroenterologi st KELLY STEVENSON Drum Loader And Unloader [facility] Orthopedist [facility] dicchanning ROSETTE PALOMINO Physical Therapist [phone] ALYSSA MONTEZ Sleep Medicine VIJI STEWART Vice President Fixed Income Assessment No assessment recorded. Plan of Treatment Reminders Order Date Submit Date Provider Last Modified By Organization Details Last Modified Time Details Appointments Nurse Visit 2024 10:40A M [facility] Not available Not available Not available Massage 2024 02:00P M [facility] Not available Not available Not available Reiki 2024 03:30P M [facility] Not available Not available Not available Reiki 2024 04:30P M [facility] Not available Not available Not available Follow Up 2024 11:30A M SACHIN JAMES Not available Not available Not available Lab BMP, serum or plasma 2023 025 ATHENAFAX [facility] (Registration ), [address] [place] [address] [place], [address], 08/23/2024 08:50:42 Referral None recorded . Procedures None recorded . Surgeries None recorded . Imaging None recorded . Medication Orders None recorded . Patient TargetsNo targets recorded. Patient InstructionsNo instructions recorded. Reason for Referral None Reported. Results Created Date Observation Date Name Description Value Unit Range Abnormal Flag Note LastModifiedBy Organization Detail LastModifiedTime 08/09/1908/09/2024 CT imagi ng repor t Patien t Name: Liya Anders Unit #: [id number] Loc: DI Orderi ng Provid er: Provos t,Abig ail Accoun t #: [id number] Status : REG CLI Primar y Care Provid er: Provos t,Abig ail Date of Exam: Sex: F : 1945 Age: 78 Exam(s ) a CT:CT brain CTA Exam(s ) CT BRAIN CTA EXAM: CT BRAIN CTA CLINIC AL HISTOR Y: HEADAC HE R51.9, PAIN IN FACE LT SIDE,? TRIGEM INAL NEURAL DARIO VS GCA. TECHNI QUE: Imagin g Protoc ol: Axial CT angiog ely was perfor med with multi- slice acquis ition and multi- planar and/or 3D recons tructi ons. CONTRA ST MATERI AL: Intrav enous: Omnipa que [address] volume :70 mL COMPAR AJIT: No exams were availa ble for compar ajit FINDIN GS: CT Head W/O: Ventri cles and Extra axial spaces : Normal in size and morpho logy for the patien t's age. Hemorr nell: None. Cerebr al parenc hyma: There is an old lacuna r infarc t in the left cerebe llum. There is no eviden ce of an acute territ orial infarc t. No acute mass effect is presen t. Midlin e shift: None. Brains tem/Ce rebell um: Normal . Calvar ium: Normal . Visual ized Parana gaby sinuse s/Mast oids: Clear. Soft Tissue s: Unrema rkable . Enhanc ement: Unrema rkable . CTA Brain W: Lining Folder al Caroti d Arteri es: Athero sclero tic calcif icatio n is seen in the internet systems administrator al caroti d arteri es with less than 50 percen t stenos is. No occlus ion or aneury sm is seen. Anteri or Cerebr al Arteri es: Right: No aneury sm, occlus ion or signif icant stenos is. Left: No aneury sm, occlus ion or signif icant stenos is. Middle Cerebr al Arteri es: Right: No aneury sm, occlus ion or signif icant stenos is. Left: No aneury sm, occlus ion or signif icant stenos is. Marine Electrician Apprentice ior cerebr al Arteri es: Right: No aneury sm, occlus ion or signif icant stenos is. Left: No aneury sm, occlus ion or signif icant stenos is. Verteb ral Arteri es: Right: No aneury sm, occlus ion or signif icant stenos is. Left: No aneury sm, occlus ion or signif icant stenos is. Basila r Artery : No aneury sm, occlus ion or signif icant stenos is. IMPRES NICOLA: 1. No eviden ce of large vessel occlus ion or signif icant stenos is on the CT angiog ely of the head. 2. No acute intrac ranial proces s. RADIAT ION DOSE DELIVE RED: 1,795. 31mGy. cm Total DLP DATA REPOSI TORY: All CT scans at this facili ty are submit giselle to the [facility] al Radiol ogy Data Regist ry (NRDR) Dose Index Regist ry (DIR) with the Americ kemi taylor of Radiol ogy (ACR). RADIAT ION OPTIMI ZATION : All CT scans at this facili ty use at least one of these dose optimi zation techni ques: automa giselle exposu re contro l; mA and/or kV adjust ment per patien t size (inclu opal target ed exams where dose is matche d to clinic al indica tion); or iterat dedra recons tructi on. 0114-0 003: Total DLP = 0.00 mGy-cm Ordere d By: Reddy Lee CC: ------ ------ ------ ------ ------ ------ ------ ------ ------ ------ ------ ------ ---- Dictat ed By: Nicholas Medrano M.D. [phone] Transc ribed By: Nicholas Medrano 1557 This is privil eged, confid ential inform ation intend ed only for the provid er named. Any use or distri bution by any person other than this provid er is strict ly prohib ited. If you receiv e this report in error, please notify us immedi ately at and return the origin al report to us at the addres s above. Thank- you. [email or web address] [facility] [address], [place], [address] 08/11/2024 13:10:25 Result Notes None recorded. Problems Name Problem SNOMED Code Status Onset Date Resolution Date Notes Provider Name and Address Organization Details Recorded Time Pain in face 96944857 Active [address], [facility] [address], [facility] 4 21:06:12 Gastroes ophageal reflux disease without esophagi tis 539181990 Active [address], [facility] [address], [facility] 4 16:15:26 Pain in right hip joint 9404897807 37448 Active [address], [facility] [address], [facility] 4 10:25:34 Hypokale cheryl 72156759 Active [address], [facility] [address], [facility] 4 10:35:09 Hyperlip idemia 45458091 Active 2022 PERI DELEON LPN null, [facility] 3 10:52:44 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 3 10:52:49 [facility] hyperten nicola 32663157 Active 2022 PERI DELEON BIN CLEANER null, [facility]. 3 10:48:19 Chronic diastoli c heart failure 953338646 Active 2022 PERI DELEON BIN CLEANER null, [facility]. 3 10:52:40 Arterios clerotic vascular disease 60443737 Active 2022 PERI DELEON BIN CLEANER null, [facility] 3 10:52:30 Right flank pain 095808706 Active 2022 Alicja Valdez null, [facility] 4 12:10:01 Pain in right foot 2368245775 11630 Active 2022 Alicja Valdez null, [facility] 4 12:09:49 Obesity 857410471 Active 2023 Alicja Valdez [facility], [facility]. 4 12:09:38 Depressi ve disorder 82470460 Active 2023 Alicja Valdez null, [facility]. 4 12:09:25 Nontraum atic rotator cuff tear 846682856 Completed 202308/20/2023 EM BAUER MA null, [facility]. 4 13:30:11 Nontraum atic rotator cuff tear 429087051 Active 2023 EM BAUER MA null, [facility]. 4 13:30:11 Polyneur opathy 78652578 Active 2023 peripher al Alicja Valdez null, [facility]. 4 12:09:51 Thoracic outlet syndrome 613177852 Active 2023 [facility] 4 12:09:55 History of malignan t neoplasm of skin 196472588 Active 2023 [facility] 4 12:09:33 Obstruct dedra sleep apnea syndrome 54469913 Active 2023 [facility] 4 12:09:41 Dyspnea 924212616 Active 2023 [facility] 4 12:09:30 Bilatera l cramp of muscle of lower limbs 0201738692 8038860 Active 2023 [facility] 4 12:09:23 Osteoart hritis 676254777 Active 2023 [facility] 4 12:09:43 Endometr ial carcinom a 797465408 Completed 202308/20/2023 EM BAUER MA null, [facility] 4 13:39:54 Diastoli c heart failure 156403085 Active 2023 [facility] 4 12:09:27 Basal cell carcinom a of skin 964889407 Active 2023 [facility] 4 12:09:20 Neoplasm of uncertai n behavior of skin 77021950 Active [address], [place], [address], [facility] 4 10:23:42 Fatigue 00492485 Active [address], [place], [address], [facility] 4 11:38:20 Chronic cough 44438588 Active [address], [place], [address], [facility] 4 11:38:20 Aortic valve disorder 7898134 Active 2023 TÑOA HUBER MA null, [facility] 4 14:31:00 Subclini antonia hyperthy roidism 714677976 Active 2023 Deneen Fuentes RN null, [facility] 4 10:27:29 Foot pain 19782828 Active 2023 JACQUELIN QUISPE [address] [place], [address], [facility] 4 13:30:03 Low back pain 511081525 Active [address], [place], [address], [facility] 4 11:54:46 Ankle pain 804624050 Active [address], [place], [address], [facility] 4 11:55:12 Mammogra phy abnormal 233637442 Active [address], [place], [address], [facility] 4 11:57:09 Infectio n of skin 878214011 Active [address], [place], [address], [facility]. 4 14:11:49 Pain of right shoulder joint 1991358169 9747296 Active [address], [place], [address], [facility], [facility] 14:14:57 Notes:Some problems listed i n Document: #[id number] could not be added to this patient's chart. Please review this document and add these problems to the patient's chart manually as needed. Problem Notes None recorded. Procedures Surgical History Date Name Laterality Status Provider Name and Address Organization Details Recorded Time 04/06/20 24 excision of melanoma completed EM BAUER MA [facility] 04/12/2024 14:49:16 06/27/20 22 endoscopic calcaneoplasty for Ora deformity completed EM BAUER [facility] 08/20/2023 13:51:40 12/29/19 20 mohs surgery completed EMLORAINE BAUER [facility] 08/20/2023 14:03:48 02/23/20 18 Coronary artery bypass/reop completed EM BAUER [facility] 08/20/2023 13:52:47 10/02/19 17 cataract surgery completed EM BAUER [facility] 08/20/2023 14:02:07 09/17/19 17 Cataract Surgery completed EMLORAINE BAUER [facility] 08/20/2023 14:02:47 11/16/19 13 total knee replacement completed EM BAUER [facility] 08/20/2023 13:45:27 03/15/20 12 total knee replacement completed EM BAUER [facility] 08/20/2023 13:44:56 open reduction of fracture of tibia and fibula completed EM BAUER MA [facility] 08/20/2023 13:47:29 procedure on elbow completed EM BAUER MA [facility] 08/20/2023 13:47:55 Appendectomy completed EM BAUER MA [facility] 08/20/2023 13:51:52 hysterectomy completed EM BAUER MA [facility] 08/20/2023 13:52:06 Imaging Results None recorded. Procedure Notes None recorded. Medical Equipment None Reported. Allergies Allergen ID Allergen Name Allergen Category Reaction Reaction Severity Criticality Documentation Date Start Date Code Code System Note Provider Name and Address Organization Details Recorded Time 22665 morphine medicatio n hallucina tions Not available Not available 08/20/2023 7052 RxNorm NATALIE BAUER MA [facility], [facility] 12:21:43 Medications Name Sig Start Date Stop Date Status Note LastModified by Organization Details LastModified Time amoxicill in 500 mg capsule TAKE 2 CAPSULES BY MOUTH TWICE DAILY FOR 10 DAYS 07/10 completed Not Available Not Available Not Available potassium chloride ER 10 mEq capsule,e xtended release TAKE 1 CAPSULE BY MOUTH TWICE DAILY WITH FOOD active Not Available Not Available No t Available cefpodoxi me 200 mg tablet TAKE 1 [...] e 50 mcg/actua tion nasal spray,stephan pension [place] 1 spray every day by intranas al [...] Not Available Not Available Not Available Vitals None Recorded Social History Question Answer Notes LastModified by Organizat ion Details LastModified Time Tobacco Smoking Status Former Smoker 18 when she quit smoking JODI CUENCA, [place] - [facility]. 08/18/2023 10:42:09 Do You Have An Advance Directive? No Paperwork Given Information not available 12/09/2023 When Did You Quit Smoking? 16+yearssince lastcigarette [email or web address] Information not available 08/18/2023 Date Of Most Recent HSA 12/09/2023 Information not available 12/09/2023 Would You Say That, In General, Your Health Is Fair [email or web address] Information not available 08/18/2023 How Often Does Anyone, Including Family, Physically Hurt You? Never [email or web address] Information not available 08/18/2023 How Often Does Anyone, Including Family, Insult Or Talk Down To You? Never [email or web address] Information not available 08/18/2023 How Often Does Anyone, Including Family, Threaten You With Harm? Never [email or web address] Information not available 08/18/2023 How Often Does [...] Have Money To Get More. Never True [email or web address] Information not available 08/18/2023 How Hard Is It For You To Pay For The Very Basics Like Food, Housing, Medical Care, And Heating? Would You Say It Is: Not Hard At All Information not available 12/09/2023 In The Past 12 Months, Has Lack Of Reliable Transportation Kept You From Medical Appointments, Meetings, Work Or From Getting Things Needed For Daily Living? No [email or web address] Information not available 08/18/2023 What Is Your Housing Situation Today? I Have Housing. [email or web address] Information not available 08/18/2023 How Often In The Past Year Have You Used Marijuana (including Smoking, Vaping, Dabbing, Or Edibles)? Never [email or web address] Information not available 08/18/2023 How Often In The Past Year Have You Used Prescription Medications That Were Not Prescribed To You? Never [email or web address] Information not available 08/18/2023 How Often In The Past Year Have You Taken Your Own Prescription Medication More Than The Way It Was Prescribed Or For Different Reasons Than Its Intended Purpose? Never Information not available 08/18/2023 How Often In The Past Year Have You Used Other Drugs (for Example, Heroin, Cocaine, Meth, Salvia, Inhalants)? Never [email or web address] Information not available 08/18/2023 What Matters Most To You? to Be Safe And Healthy, See And Walk Information not available 12/09/2023 During The Past Four Weeks, Was Someone Available To Help You If You Needed And Wanted Help? (For Example, If You Box Elder Very Nervous, Lonely, Or Blue; Got Sick [...] Concerns In Your Home (see Attached [facility] Pamphlet)? No Information not available 12/09/2023 [...] Do You Have A Medical Power Of Range Rider? No Information not available 12/09/2023 What Was The Date Of Your Most Recent Tobacco Screening? 07/25/2024 [email or web address] Information not available 07/25/2024 At What Age Did You Start Smoking Tobacco? 16 [email or web address] Information not available 08/18/2023 Has Tobacco Cessation [...] Organization Details LastModified Time Mother Diastolic dysfunction [email or web address] Not available 07/28 13:53:44 Mother Congestive heart failure 68 [email or web address] Not available 2023 13:55:35 Brother Myocardial infarction [email or web address] Not available 08/20 13:54:51 Brother Family history of malignant neoplasm [email or web address] Not available 2023 14:47:47 Sister Family history of malignant neoplasm Not available 2023 14:47:47 Medical History No medical history recorded. Gynecological HistoryNo gynecological history recorded. Obstetrics History GPAL:G 0 P 0 0 0 0 Immunizations Vaccine Type Date Status Note Provider Nam e and Address Organization Details Recorded Time Td (adult), 2 Lf tetanus toxoid, preservative free, adsorbed 4 completed SACHIN RAMIREZ, VISION C[employer] ASSOCIATE [address], [place], [address], [facility] 08/18/2023 22:14:59 Influenza, high-dose, trivalent, PF 4 completed SACHIN RAMIREZ, VISION CARE ASSOCIATE [address], [place], [address], [facility] 04/12/2024 21:01:41 SARS-COV-2 (COVID-19) vaccine, UNSPECIFIED 3 completed JODI CUENCA, [facility] 08/20/2023 12:15:28 SARS-COV-2 (COVID-19) vaccine, UNSPECIFIED 1 completed JODI CUENCA, [facility] 08/20/2023 12:15:34 SARS-COV-2 (COVID-19) vaccine, UNSPECIFIED 1 completed JODI CUENCA, [facility] 08/20/2023 12:15:49 SARS-COV-2 (COVID-19) vaccine, UNSPECIFIED 1 completed JODI CUENCA, [facility] 08/20/2023 12:15:55 SARS-COV-2 (COVID-19) vaccine, UNSPECIFIED 2 completed JODI CUENCA, [facility] 08/20/2023 12:16:04 Pneumococcal conjugate PCV 13 5 completed JODI CUENCA, [facility] 08/20/2023 12:16:40 influenza, unspecified formulation 0 completed JODI CUENCA, [facility] 08/20/2023 12:17:06 influenza, unspecified formulation 1 completed JODI CUENCA, [facility] 08/20/2023 12:17:14 influenza, unspecified formulation 2 completed JODI CUENCA, [facility] 08/20/2023 12:17:20 influenza, unspecified formulation 3 completed JODI CUENCA, [facility] 08/20/2023 12:17:30 pneumococcal polysaccharide PPV23 2 completed JODI CUENCA, [facility] 08/20/2023 12:18:00 pneumococcal polysaccharide PPV23 9 completed JODI CUENCA, [facility] 08/20/2023 12:18:09 Tdap 2 completed JODI CUENCA, [facility] 08/20/2023 12:18:41 zoster, unspecified formulation 9 JODI Booker, [facility] 08/20/2023 12:18:59 zoster, unspecified formulation 9 JODI Booker, [facility] 08/20/2023 12:19:04 zoster, unspecified formulation 2 completed JODI CUENCA, [facility] 08/20/2023 12:19:11 Past Encounters Encounter ID Performer Location Encounter Start Date Encounter Closed Date Diagnosis/Indication Diagnosis SNOMED-CT Code Diagnosis ICD10 Code Diagnosis Note [id number] SACHIN RAMIREZJACQUELIN [facility] [address] [place] [address] 07/25/2024 09:29:15 07/25/2024 10:47:05 Hyperlipidemia 86108966 E78.5 Basal cell carcinoma of skin 748148578 C44.91 - The patient had the carcinoma removed on April 07. The incision healed well.Plan: - Follow up with Dr. Salinas at [facility] in [place] as advised. Obstructiv e sleep apnea syndrome 04040917 G47.33 Continue with plans for sleep study. Weight loss and sleep hygiene discussed. Follow-up after sleep study results are obtained. Polyneuropathy 70668921 G62.9 Bilateral lower extremity neuropathi es. Seen by podiatry and given bilateral injections . Some relief with gabapentin for treatment of symptoms. We will titrate up as needed. Continue to monitor follow-up in 3 months or sooner if needed. Pain of ri ght shoulder joint 2735668378 2453223 M25.511 Shoulder pain, right, history of torn rotator cuffs as per pt self report-PT referral Pain in face 42881828 R5 1.9 Intermitte nt pain on left side of face x 6 months, possible trigeminal neuralgia vs GCA- Recommend ibuprofen for inflammati on and pain relief- Suggest warm compresses , acupunctur e, and chiropract ic care- Pending recent BUN and creatinine levels, plan for head CT with contrast to rule out vascular issuesESR and CRP drawn 04/2024 and normal. Pt requesting head CT. I am agreeable to ordering a head CT without contrast due to stage III kidney disease and GFR 38. Pain in ri ght hip joint [id number] 33798 M25.551 - Refer the patient to [facility] in [place] for evaluation and treatment of right hip pain.- Reassess after 6 weeks of physical therapy; if no improvemen t, consider referral to orthopedic s and obtain X-rays. Hypokalemia 77258952 E87 .6 History of hypokalemi a. BMP to be checked today. Continue with potassium at this time. Essential hypertension 83037068 I10 VSS. Blood pressure well-contr olled and at goal. Patient reports taking medication s as prescribed . Monitoring labs drawn Completed last week with no concerning findings. Patient encouraged to monitor blood pressure, maintain adequate hydration and take medication s as prescribed . Obesity 976354401 E66.9 Again, lifestyle modificati ons discussed including diet, exercise, stress reduction and sleep hygiene. Patient interested in weight loss medication . Will be discussed further when patient returns home from [place] this spring. Patient encouraged to keep a food/diet journal. [id number] Stoney Fuentes RN [address] [address] 08/23/2024 08:22:44 08/23/2024 09:49:21 Essential hypertension 89161855 I10 Health Concerns Section Related Observation LastModified by Organization Detai ls LastModified Time None Recorded Concern Status LastModified by Organization Details LastModified Time None Recorded Payers Encounter Date Sequence Insurance Name Policy Number Policy Kearns Covered Member ID Kearns Member ID Guarantor Name 08/23/2024 1 [id number]/A DVANTAGE - PPO) [id number] Liya A Chago [id number] Liya A Chago 08/23/2024 2 [facility] (MEDICAID) Liya A Chago [id number] Liya A Chago OBGyn Episode No OBEpisode recorded.
--- OUTSIDE RECORDS SUMMARY | 2024-08-23 14:27 | XMS_ITS | Continuity of Care Document ---
Author Organization [facility], [facility] Address [address] [place] [address] Care Team Providers Care Gas Technician Name Role Phone JACQUELINE ROCKWELL Vending Machine Host/Hostess [facility] Gastroenterologi st KELLY STEVENSON [employer] [facility] Orthopedist [facility] Family Ut dicine ROSETTE PALOMINO Physical Therapist [phone] ALYSSA MONTEZ Sleep Medicine VIJI STEWART Vending Machine Host/Hostess Assessment Encounter Date Assessment Date Assessment LastModified by Organization Details LastModified Time 07/25/2024 07/25/2024 The total time devoted to today's encounter, including both the yplx-vt-vqis time with the patient and/or family/caregi sameer and nux-ozdi-fv-f neha time I personally spent is 25 minutes in visit, 5 minutes prep, 5 minutes charting; total 35 minutes. [email or web address] Not available 07/25/2024 12:56:01 Plan of Treatment Reminders Order Date Submit Date Provider Last Modified By Organization Details Last Modified Time Details Appointments Nurse Visit 20 2024 10:40A [facility] [place] [facility] Not available Not available Not available Massage 30 2024 02:00P [facility] [place] [facility] Not available Not available Not available Reiki 2024 03:30P [facility] [place] [facility] Not available Not available Not available Reiki 2024 04:30P [facility] [place] [facility] Not available Not available Not available Follow Up 2024 11:30A M SACHIN JAMES Not available Not available Not available Lab BMP, serum or plasma 2023 [email or web address] [facility] (Registration ), [address] [place] [address] [place], [address], 08/01/2024 06:53:50 Referral physical therapist referral - chronic right hip and shoulder pain 2023 [facility], [place], [address], 07/25/2024 13:25:18 physical therapist referral - right hip and shoulder pain 2023 [facility], [place], [address], 07/25/2024 13:25:19 Procedures None recorded. Surgeries None recorded. Imaging None recorded. Medication Orders simvastat in 20 mg tablet 2023 [facility], [address] [place], [address], 07/25/2024 10:17:49 potassium chloride ER 10 mEq capsule,e xtended release 2023 [facility], [address] [place], [address], 07/25/2024 12:56:06 Patient TargetsNo targets recorded. Patient Instructions Encounter Date Encounter Id Patient Instructions Last Modified By Organization Details Last Modified Time 07/25/2024 [id number] diet [email or web address] Not available 06/28 12:56:03 exercise [email or web address] Not available 07/25 12:56:03 Dear Liya, Thank you for visiting us today and for your dedication to improving your health. Here is a summary of the el instructions and recommendations from today's consultation: - Continue with Gabapentin 100 mg three times a day for neuropathy pain. - Renewed prescription for Simvastatin for cholesterol management. - Scheduled a Head CT scan without contrast at [facility] to address ongoing facial pain. - Referral to [facility] in [place] for both your right hip and right [...] step of the way. Best regards, Kristie quintanilla Not available 07/25/2024 10:35:48 Reason for Referral Physical Therapist Referral for Pain in right hip joint chronic right hip and shoulder pain Referring Physician: Sachin Ramirez [facility] Medicine, Encounter Date: 07/25/2024 Physical Therapist Referral for Pain of right shoulder joint right hip and shoulder pain Referring Physician: Sachin Ramirez [facility] Medicine, Encounter Date: 07/25/2024 Results Created Date Observation Date Name Description Value Unit Range Abnormal Flag Note LastModifiedBy Organization Detail LastModifiedTime 08/09/1908/09/2024 CT imagi ng repor t Patien t Name: Liya Anders Unit #: [id number] Loc: DI Orderi ng Provid er: Provos t,Abig ail Accoun t #: [id number] Status : REG CLI Primar [...] ement: Unrema rkable . CTA Brain W: Tnt Line Supervisor al Caroti d Arteri es: Athero sclero tic calcif icatio n is seen in the brand marketing intern al caroti d arteri es with less [...] occlus ion or signif icant stenos is. Claim Approver ior cerebr al Arteri es: Right: No [...] facili ty are submit giselle to the Nation al Radiol ogy Data Regist ry (NRDR) Dose Index Regist ry (DIR) with the Americ an Jhony taylor of Radiol ogy (ACR). RADIAT ION [...] 0.00 mGy-cm Ordere d By: Reddy Lee ail CC: ------ ------ ------ ------ ------ ------ ------ ------ ------ ------ ------ ------ ---- Dictat ed By: Nicholas Medrano M.D. [id number] 155 Transc ribed By: Nicholas Medrano 155 This is privil eged, confid ential inform ation intend ed only for the provid er named. Any use or distri bution by any person other than this provid er is strict ly prohib ited. If you receiv e this report in error, please notify us immedi ately at [phone] and return the origin al report to us at the addres s above. Thank- you. [email or web address] [place] [id number] [facility] [place], [address] 08/11/2024 13:10:25 Result Notes None recorded. Problems Name Problem SNOMED Code Status Onset Date Resolution Date Notes Provider Name and Address Organization Details Recorded Time Pain in face 18368625 Active 2023 SACHIN , SPECIAL EDUCATION RESOURCE TEACHER [address], [place], [address], [facility] 4 21:06:12 Gastroes ophageal reflux disease without esophagi tis 024939479 Active 2023 SACHINSHELL RAMIREZ SPECIAL EDUCATION RESOURCE TEACHER [address], [place], [address], [facility] 4 16:15:26 Pain in right hip joint 8576672682 45177 Active 2023 JACQUELIN QUISPE [address], [place], [address], [facility] 4 10:25:34 Hypokale cheryl 96258298 Active 2023 SACHIN RAMIREZ SPECIAL EDUCATION RESOURCE TEACHER [address], [place], [address], [facility] 4 10:35:09 Hyperlip idemia 00022427 Active 2022 PERI DELEON, ANALYSIS ENGINEER null, [facility] 3 10:52:44 Hypothyr oidism 16562622 Active 2022 PERI DELEON, ANALYSIS ENGINEER null, [facility] 3 10:52:49 Essentia l hyperten nicola 66992282 Active 2022 PERI LACJOSH, ANALYSIS ENGINEER null, [facility] 3 10:48:19 Chronic diastoli c heart failure 475258580 Active 2022 PERI DELEON, ANALYSIS ENGINEER null, [facility] 3 10:52:40 Arterios clerotic vascular disease 98957469 Active 2022 PERI DELEON, ANALYSIS ENGINEER null, [facility] 3 10:52:30 Right flank pain 770573726 Active 2022 [facility] 4 12:10:01 Pain in right foot 5844422025 62939 Active 2022 Alicja [facility] 4 12:09:49 Obesity 048534961 Active 2023 [facility] 4 12:09:38 Depressi ve disorder 55191771 Active 2023 [facility] 4 12:09:25 Nontraum atic rotator cuff tear 320827331 Completed 202308/20/2023 EM BAUER MA null, [facility] 4 13:30:11 Nontraum atic rotator cuff tear 186874117 Active 2023 EM BAUER MA null, [facility] 4 13:30:11 Polyneur opathy 92352627 Active [address] [facility], [facility] 4 12:09:51 Thoracic outlet syndrome 132314277 Active 2023 [facility] 4 12:09:55 History of malignan t neoplasm of skin 721887519 Active 2023 [facility] 4 12:09:33 Obstruct dedra sleep apnea syndrome 85579699 Active 2023 [facility]. 4 12:09:41 Dyspnea 755198598 Active 2023 [facility] 4 12:09:30 Bilatera l cramp of muscle of lower limbs 4877466692 4503074 Active 2023 [facility] 4 12:09:23 Osteoart hritis 184413388 Active [address]23 [facility], [facility] 4 12:09:43 Endometr ial carcinom a 342698915 Completed 202308/20/2023 EM BAUER MA null, [facility] 13:39:54 Diastoli c heart failure 690297399 Active [address]23 [facility], [facility] 4 12:09:27 Basal cell carcinom a of skin 731715500 Active [address]23 [facility], [facility] 12:09:20 Neoplasm of uncertai n behavior of skin 69410292 Active 2023 LEDY TRIPP MD [address], [place], [address], [facility] 4 10:23:42 Fatigue 45588034 Active [address], [place], [address], [facility] 4 11:38:20 Chronic cough 61405313 Active [address], [place], [address], [facility] 4 11:38:20 Aortic valve disorder 3504330 Active 2023 TOÑA HUBER MA null, [facility] 4 14:31:00 Subclini antonia hyperthy roidism 734488760 Active 2023 Deneen Fuentes RN null, [facility] 4 10:27:29 Foot pain 04377564 Active 2023 JACQUELIN QUISPE [address], [place], [address], [facility] 13:30:03 Low back pain 423743041 Active [address], [facility] [address], [facility] 11:54:46 Ankle pain 298247523 Active [address], [facility] [address], [facility] 11:55:12 Mammogra phy abnormal 429808641 Active [address], [facility] [address] [place] [address] 11:57:09 Infectio n of skin 126387251 Active [address], [facility] [address], [facility] 14:11:49 Pain of right shoulder joint 6549225684 9246097 Active [address], [facility] [address], [facility] 14:14:57 Notes:Some problems listed i n Document: #[id number] could not be added to this patient's chart. Please review this document and add these problems to the patient's chart manually as needed. Problem Notes None recorded. Procedures Surgical History Date Name Laterality Status Provider Name and Address Organization Details Recorded Time 04/06/20 24 excision of melanoma completed EM BAUER MA [facility] 04/12/2024 14:49:16 06/27/20 22 endoscopic calcaneoplasty for Ora deformity completed EM BAUER MA [facility] 08/20/2023 13:51:40 12/29/19 20 mohs surgery completed EM BAUER MA [facility] 08/20/2023 14:03:48 02/23/20 18 Coronary artery bypass/reop completed EM BAUER MA [facility] 08/20/2023 13:52:47 10/02/19 17 cataract surgery completed EM BAUER MA [facility] 08/20/2023 14:02:07 09/17/19 17 Cataract Surgery completed EM BAUER MA [facility] 08/20/2023 14:02:47 11/16/19 13 total knee replacement completed EM BAUER MA [facility] 08/20/2023 13:45:27 03/15/20 12 total knee replacement completed EM BAUER MA [facility] 08/20/2023 13:44:56 open reduction of fracture of tibia and fibula completed EM BAUER MA [facility] 08/20/2023 13:47:29 procedure on elbow completed EM BAUER MA [facility] 08/20/2023 13:47:55 Appendectomy completed EM BAUER MA [facility] 08/20/2023 13:51:52 hysterectomy completed EM BAUER MA [facility] 08/20/2023 13:52:06 Imaging Results None recorded. Procedure Notes None recorded. Medical Equipment None Reported. Allergies Allergen ID Allergen Name Allergen Category Reaction Reaction Severity Criticality Documentation Date Start Date Code Code System Note Provider Name and Address Organization Details Recorded Time 56281 morphine medicatio n hallucina tions Not available Not available 08/20/2023 7052 RxNorm NATALIE BAUER MA [facility] 12:21:43 Medications Name Sig Start [...] e 50 mcg/actua tion nasal spray,stephan pension Mallard 1 spray every day by intranas al [...] Updated DateTime 4 144.14 cm 37.6 kg/m2 71876.8 9 g 97.3 [degF] 97 % 97 % 73 /min 124 mm[Hg] 72 mm[Hg] Haydee Miller MA [facility] 4 09:46:04 Social History Question Answer Notes LastModified by Organizat ion Details LastModified Time Tobacco Smoking Status Former Smoker 18 when she quit smoking EM BAUER MA [facility], [facility] 08/18/2023 10:42:09 Do You Have An Advance Directive? No Paperwork Given Information not available 12/09/2023 When Did You Quit Smoking? 16+yearssince lastcigarette [email or web address] Information not available 08/18/2023 Date Of Most Recent HSA 12/09/2023 Information not available 12/09/2023 Would You Say That, In General, Your Health Is Fair [email or web address] Information not available 08/18/2023 How Often Does Anyone, Including Family, Physically Hurt You? Never [email or web address] Information not available 08/18/2023 How Often Does Anyone, Including Family, Insult Or Talk Down To You? Never [email or web address] Information not available 08/18/2023 How Often Does Anyone, Including Family, Threaten You With Harm? Never [email or web address] Information not available 08/18/2023 How Often Does Anyone, Including Family, Scream Or Curse At You? Never [email or web address] Information not available 08/18/2023 Within The Past 12 Months, You Worried That Your Food Would Run Out Before You Got Money To Buy More. Sometimes True Information not available 12/09/2023 Within The Past 12 Months, The Food You Bought Just Didn't Last And You Didn't Have Money To Get More. Never True [email or web address] Information not available 08/18/2023 How Hard Is It For You To Pay For The Very Basics Like Food, Housing, Medical Care, And Heating? Would You Say It Is: Not Hard At All Information not available 12/09/2023 In The Past 12 Months, Has Lack Of Reliable Transportation Kept You From Medical Appointments, Meetings, Work Or From Getting Things Needed For Daily Living? No [email or web address] Information not available 08/18/2023 What Is Your Housing Situation Today? I Have Housing. [email or web address] Information not available 08/18/2023 How Often In The Past Year Have You Used Marijuana (including Smoking, Vaping, Dabbing, Or Edibles)? Never [email or web address] Information not available 08/18/2023 How Often In The Past Year Have You Used Prescription Medications That Were Not Prescribed To You? Never Information not available 08/18/2023 How Often In The Past Year Have You Taken Your Own Prescription Medication More Than The Way It Was Prescribed Or For Different Reasons Than Its Intended Purpose? Never [email or web address] Information not available 08/18/2023 How Often In The Past Year Have You Used Other Drugs (for Example, Heroin, Cocaine, Meth, Salvia, Inhalants)? Never [email or web address] Information not available 08/18/2023 What Matters Most To You? to Be Safe And Healthy, See And Walk Information not available 12/09/2023 During The Past Four Weeks, Was Someone Available To Help You If You Needed And Wanted Help? (For Example, If You [place] Very Nervous, Lonely, Or Blue; Got Sick [...] Concerns In Your Home (see Attached [facility] Pamphlet)? No Information not available 12/09/2023 [...] Do You Have A Medical Power Of Fur Mixer Operator? No Information not available 12/09/2023 What Was The Date Of Your Most Recent Tobacco Screening? 07/25/2024 [email or web address] Information not available 07/25/2024 At What Age Did You Start Smoking Tobacco? 16 [email or web address] Information not available 08/18/2023 Has Tobacco Cessation [...] Organization Details LastModified Time Mother Diastolic dysfunction Not available 07/28 13:53:44 Mother Congestive heart failure 68 [email or web address] Not available 2023 13:55:35 Brother Myocardial infarction [email or web address] Not available 08/20 13:54:51 Brother Family history of malignant neoplasm [email or web address] Not available 2023 14:47:47 Sister Family history of malignant neoplasm [email or web address] Not available 2023 14:47:47 Medical History No medical history recorded. Gynecological HistoryNo gynecological history recorded. Obstetrics History GPAL:G 0 P 0 0 0 0 Immunizations Vaccine Type Date Status Note Provider Nam e and Address Organization Details Recorded Time Td (adult), 2 Lf tetanus toxoid, preservative free, adsorbed [address], [place], [address], [facility] 08/18/2023 22:14:59 Influenza, high-dose, trivalent, PF [address], [place], [address], [facility] 04/12/2024 21:01:41 SARS-COV-2 (COVID-19) vaccine, UNSPECIFIED 3 completed JODI CUENCA, [facility] 08/20/2023 12:15:28 SARS-COV-2 (COVID-19) vaccine, UNSPECIFIED 1 completed JODI CUENCA, [facility] 08/20/2023 12:15:34 SARS-COV-2 (COVID-19) vaccine, UNSPECIFIED 1 completed JODI CUENCA, [facility] 08/20/2023 12:15:49 SARS-COV-2 (COVID-19) vaccine, UNSPECIFIED 1 completed JODI CUENCA, [facility] 08/20/2023 12:15:55 SARS-COV-2 (COVID-19) vaccine, UNSPECIFIED 2 completed JODI CUENCA, [facility] 08/20/2023 12:16:04 Pneumococcal conjugate PCV 13 5 completed JODI CUENCA, [facility] 08/20/2023 12:16:40 influenza, unspecified formulation 0 completed JODI CUENCA, [facility] 08/20/2023 12:17:06 influenza, unspecified formulation 1 completed JODI CUENCA, [facility] 08/20/2023 12:17:14 influenza, unspecified formulation 2 completed JODI CUENCA, [facility] 08/20/2023 12:17:20 influenza, unspecified formulation 3 completed JODI CUENCA, [facility] 08/20/2023 12:17:30 pneumococcal polysaccharide PPV23 2 completed JODI CUENCA, [facility] 08/20/2023 12:18:00 pneumococcal polysaccharide PPV23 9 completed JODI CUENCA, [facility] 08/20/2023 12:18:09 Tdap 2 completed JODI CUENCA, [facility] 08/20/2023 12:18:41 zoster, unspecified formulation 9 completed JODI CEUNCA, [facility] 08/20/2023 12:18:59 zoster, unspecified formulation 9 completed JODI CUENCA, [facility] 08/20/2023 12:19:04 zoster, unspecified formulation 2 completed JODI CUENCA, [facility] 08/20/2023 12:19:11 Past Encounters Encounter ID Performer Location Encounter Start Date Encounter Closed Date Diagnosis/Indication Diagnosis SNOMED-CT Code Diagnosis ICD10 Code Diagnosis Note [id number] JACQUELIN QUISPE [address] [address] 07/25/2024 09:29:15 07/25/2024 10:47:05 Hyperlipidemia 52278882 E78.5 Basal cell carcinoma of skin 976813754 C44.91 - The patient had the carcinoma removed on April 07. The incision healed well.Plan: - Follow up with Dr. Salinas at [facility] as advised. Obstructiv e sleep apnea syndrome 55177723 G47.33 Continue with plans for sleep study. Weight loss and sleep hygiene discussed. Follow-up after sleep study results are obtained. Polyneuropathy 93579417 G62.9 Bilateral lower extremity neuropathi es. Seen by podiatry and given bilateral injections . Some relief with gabapentin for treatment of symptoms. We will titrate up as needed. Continue to monitor follow-up in 3 months or sooner if needed. Pain of ri t shoulder joint 5068109224 9942200 M25.511 Shoulder pain, right, history of torn rotator cuffs as per pt self report-PT referral Pain in face 42786349 R5 1.9 Intermitte nt pain on left [...] kidney disease and GFR 38. [facility] joint 9787397040 [address]674 M25.551 - Refer the patient to [facility] in [place] for evaluation and treatment of right hip pain.- Reassess after 6 weeks of physical therapy; if no improvemen t, consider referral to orthopedic s and obtain X-rays. Hypokalemia 08904733 E87 .6 History of hypokalemi a. BMP to be checked today. Continue with potassium at this time. Essential hypertension 41549032 I10 VSS. Blood pressure well-contr olled and at goal. Patient reports taking medication s as prescribed . Monitoring labs drawn Completed last week with no concerning findings. Patient encouraged to monitor blood pressure, maintain adequate hydration and take medication s as prescribed . Obesity 816957821 E66.9 Again, lifestyle modificati ons discussed including diet, exercise, stress reduction and sleep hygiene. Patient interested in weight loss medication . Will be discussed further when patient returns home from [place] this spring. Patient encouraged to keep a food/diet journal. Health Concerns Section Related Observation LastModified by Organization Detai ls LastModified Time None Recorded Concern Status LastModified by Organization Details LastModified Time None Recorded Payers Encounter Date Sequence Insurance Name Policy Number Policy Kearns Covered Member ID Kearns Member ID Guarantor Name 07/25/2024 1 [id number]/A DVANTAGE - PPO) [id number] Liya Anders [id number] Liya Anders 07/25/2024 2 [employer] (MEDICAID) Liya Singh [place] [id number] Liya Singh Chago Notes Date Note Type Note Provider [...] about her diet. Liya has seen an middle or intermediate school principal for her hearing and reports that it has improved after having her ear cleaned. 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 SACHIN RAMIREZ, SPECIAL EDUCATION RESOURCE TEACHER [address], [place], [address], [facility]. 07/25/2024 12:56:09 OBGyn Episode No OBEpisode recorded.
--- OUTSIDE RECORDS SUMMARY | 2024-08-23 14:27 | XMS_ITS | Data Portability ---
Author Organization [place] - [facility] [place] [address] Care Team Providers Care Barbering Instructor Name Role Phone JACQUELINE ROCKWELL Greenhouse Staff [facility] Gastroenterologi st KELLY STEVENSON Miniature Train Driver [facility] Orthopedist [facility] Family Co dicchanning ROSETTE PALOMINO Physical Therapist ALYSSA MONTEZ Sleep Medicine VIJI STEWART Greenhouse Staff Assessment Encounter Date Assessment Date Assessment LastModified by Organization Details LastModified Time 05/25/2024 05/25/2024 The total time devoted to today's encounter, including both the rmeg-ow-rhqj time with the patient and/or family/caregiver and gab-idtw-qo-face time I personally spent is 25 minutes in visit, 5 minutes prep, 5 minutes charting; total 35 minutes. [email or web address] Not available 05/25/2024 21:07:19 06/01/2024 06/01/2024 Patient [...] based on the Revised Cardiac Risk Index. [email or web address] Not available 06/01/2024 21:28:03 07/25/2024 07/25/2024 The total time devoted to today's encounter, including both the ntfb-fc-pmsm time with the patient and/or family/caregiver and lhk-lfxh-et-face time I personally spent is 25 minutes in visit, 5 minutes prep, 5 minutes charting; total 35 minutes. [email or web address] Not available 07/25/2024 12:56:01 Plan of Treatment Reminders Order Date Submit Date Provider Last Modified By Organization Details Last Modified Time Details Appointments Nurse Visit 2024 10:40A M [facility] Nursing Staff Not available Not available Not available Massage 2024 02:00P M [facility] Not available Not available Not available Reiki 2024 03:30P M [facility] Not available Not available Not available Reiki 2024 04:30P M [facility] Not available Not available Not available Follow Up 2024 11:30A M SACHIN JAMES Not available Not available Not available Lab culture, wound - specimen is taken from right side of fore head next to eyebrow 2023 024 [facility] (Registration ), [address] [place] [address] [place], [address], 05/14/2024 08:46:11 BMP, serum or plasma 2023 024 [email or web address] [facility] (Registration ), [address] [place] [address] [place], [address], 08/01/2024 06:53:50 BMP, serum or plasma 2023 025 [facility] (Registration ), [address] [place] [address] [place], [address], 08/23/2024 08:50:42 Referral orthopedi c surgeon referral 2023 024 [facility], [address] [place] [address], [address], 08/03/2024 14:25:20 physical therapist referral - chronic right hip and shoulder pain 2023 [facility], [address] [place] [address], [address], 07/25/2024 13:25:18 physical therapist referral - right hip and shoulder pain 2023 [facility], [address] [place] [address], [address], 07/25/2024 13:25:19 Procedures None recorded. Surgeries None recorded. Imaging None recorded. Medication Orders cephalexi n 500 mg capsule 2023 [facility], [address] [place] [address], [address], 05/25/2024 13:49:16 omeprazol e 40 mg capsule,d elayed release 2023 [facility], [address] [place] [address], [address], 06/01/2024 16:16:22 simvastat in 20 mg tablet 2023 [facility], [address] [place] [address], [address], 07/25/2024 10:17:49 potassium chloride ER 10 mEq capsule,e xtended release 2023 [facility], [address] [place] [address], [address], 07/25/2024 12:56:06 Patient TargetsNo targets recorded. Patient Instructions Encounter Date Encounter Id Patient Instructions Last Modified By Organization Details Last Modified Time 05/13/2024 [id number] 1. Wound culture obtained today will take [...] reevaluation. [email or web address] Not available 05/13/2024 13:45:12 07/25/2024 [id number] diet Not available 06/28 12:56:03 exercise [email or web address] Not available 07/25 12:56:03 Dear Liya, Thank [...] address ongoing facial pain. - Referral to [facility] in [place] for both your right hip and right [...] step of the way. Best regards, Kristie [email or web address] Not available 07/25/2024 10:35:48 Reason for Referral Orthopedic Surgeon Referral for Pain of right shoulder joint Referring Physician: Sachin Ramirez Family Medicine, Encounter Date: 05/25/2024 Physical Therapist Referral for Pain in right hip joint chronic right hip and shoulder pain Referring Physician: Sachin Ramirez [facility] Medicine, Encounter Date: 07/25/2024 Physical Therapist Referral for Pain of right shoulder joint right hip and shoulder pain Referring Physician: Sachin Ramirez, Family Medicine, Encounter Date: 07/25/2024 Results Created Date Observation Date Name Description Value Unit Range Abnormal Flag Note LastModifiedBy Organization Detail LastModifiedTime 05/13/20 24 05/13/2024 GRAM STAIN gram stain Gram Stain GRAM STAIN (REPO RT) Rare White Blood Cells No Bacte ciara Seen Not Available [facility] (Registration ) [address] [place] [address] [place], [address], 05/13/2024 23:28:16 05/13/2005/15/2024 WOUND AEROB IC CULTU RE wound aerobic culture Wound Aerob ic Cultu re APPEA MARILYN Kristina l Arnie GROWT H(REP ORT) RARE GROWT H Day 1 Resul t ISOLA BESSY BELOW O:NF (ORGA NISM ID: 1.1) - KRISTINA L ARNIE Wound Aerob ic Cultu re (ORGA NISM ID: 1.1) - GROWT H(REP ORT) (ORGA NISM ID: 1.1) - RARE GROWT H Not Available [facility] (Registration ) [address] [place] [address] [place], [address], 05/15/2024 07:59:02 05/13/20 24 05/13/2024 GRAM STAIN gram stain Gram Stain GRAM STAIN (REPO RT) Rare White Blood Cells No Bacte ciara Seen Not Available [facility] (Registration ) [address] [place] [address] [place], [address], 05/15/2024 07:59:03 05/13/20 24 05/16/2024 WOUND AEROB [...] 1.1) - RARE GROWT H Not Available [facility] (Registration ) [address] [place] [address] [place], [address], 05/16/2024 11:01:32 05/13/20 24 05/13/2024 GRAM STAIN gram stain Gram Stain GRAM STAIN (REPO RT) Rare White Blood Cells No Bacte ciara Seen Not Available [facility] (Registration ) [address] [place] [address] [place], [address], 05/16/2024 11:01:33 05/13/2005/17/2024 WOUND AEROB IC CULTU RE wound aerobic [...] 1.1) - RARE GROWT H Not Available [address] [place], [address] 05/17/2024 10:59:59 05/13/2005/13/2024 GRAM STAIN gram stain Gram Stain GRAM STAIN (REPO RT) Rare White Blood Cells No Bacte ciara Seen Not Available [address] [place], [address] 05/17/2024 11:00:01 05/27/20 24 05/27/2024 SED RATE* sed. rate 24 mm/HR 0 - 30 Not Available [facility] (Lab) [address] [place] [address], [address], 05/27/2024 14:47:12 07/25/20 24 07/25/2024 BASIC METAB OLIC PANEL calcium 9.4 mg/dL 8.5-10 .1 normal Not Available [address] [place], [address] 07/25/2024 18:46:25 07/25/20 24 07/25/2024 BASIC METAB OLIC PANEL glucose 104 mg/dL 74-106 normal Not Available Melia sinha [address] [place], [address] 07/25/2024 18:46:25 07/25/20 24 07/25/2024 BASIC METAB OLIC PANEL BUN 41 mg/dL 7-18 high Not Available Melia sinha [address] [place], [address] 07/25/2024 18:46:25 07/25/20 24 07/25/2024 BASIC METAB OLIC PANEL creatinine 1.6 mg/dL 0.55-1 .02 high Not Available [address] [place], [address] 07/25/2024 18:46:25 07/25/20 24 07/25/2024 BASIC METAB OLIC PANEL estimated GFR 33.01 mL/min /1.73M 2 The eGFR is calcu lated from [...] young er-ag ed adult s. Not Available [address] [place], [address] 07/25/2024 18:46:25 07/25/20 24 07/25/2024 BASIC METAB OLIC PANEL sodium 146 mmol/ L 136-14 5 high Not Available [address] [place], [address] 07/25/2024 18:46:25 07/25/20 24 07/25/2024 BASIC METAB OLIC PANEL potassium 5.3 mmol/ L 3.5-5. 1 high Not Available [address] [place], [address] 07/25/2024 18:46:25 07/25/20 24 07/25/2024 BASIC METAB OLIC PANEL chloride 109 mmol/ L 98-107 high Not Available [address] [place], [address] 07/25/2024 18:46:25 07/25/20 24 07/25/2024 BASIC METAB OLIC PANEL CO2 29.9 mmol/ L 21.0-3 2.0 normal Not Available [address] [place], [address] 07/25/2024 18:46:25 07/25/20 24 07/25/2024 BASIC METAB OLIC PANEL anion gap 7.1 mmol/ L 3-11 normal Not Available [address] [place], [address] 07/25/2024 18:46:25 08/09/19 25 08/09/2024 CREAT ININE creatinine 1.4 mg/dL 0.55-1 .02 high Not Available [address] [place], [address] 08/09/2024 15:02:12 08/09/19 25 08/09/2024 CREAT ININE estimated GFR 38.75 mL/min /1.73M 2 The eGFR is calcu lated from [...] young er-ag ed adult s. Not Available [address] [place], [address] 08/09/2024 15:02:12 06/03/20 24 06/02/2024 trans -thor acic echoc ardio gram (TTE) (PROC ) No observ ation record ed. [email or web address] Not Available 06/03 11:05:57 08/09/19 25 08/09/2024 CT imagi ng repor t Patien t Name: Liya Anders Unit #: [id number] Loc: DI Orderi ng Provid er: Provos t,Abig ail Accoun t #: [id number] Status : REG CLI Primar [...] ement: Unrema rkable . CTA Brain W: Spinning Operator al Caroti d Arteri es: Athero sclero tic calcif icatio n is seen in the fashion styling intern al caroti d arteri es with [...] occlus ion or signif icant stenos is. [employer] Roboticist ior cerebr al Arteri es: Right: No [...] facili ty are submit giselle to the [facility] al Radiol ogy Data Regist ry (NRDR) [...] Dictat ed By: Nicholas Medrano M.D. 1557 1557 Transc ribed By: Nicholas Medrano 1557 This is privil eged, confid ential inform ation intend ed only for the provid er named. Any use or distri bution by any person other than this provid er is strict ly prohib ited. If you receiv e this report in error, please notify us immedi ately at [phone] and return the origin al report to us at the addres s above. Thank- you. [email or web address] [facility] [address], [place], [address] 08/11/2024 13:10:25 Result Notes None recorded. Problems Name Problem SNOMED Code Status Onset Date Resolution Date Notes Provider Name and Address Organization Details Recorded Time Pain in face 38204356 Active [address], [place], [address], [facility] 4 21:06:12 Gastroes ophageal reflux disease without esophagi tis 107579862 Active [address], [facility] [address], [facility] 4 16:15:26 Pain in right hip joint 2002405092 62661 Active [address], [facility] [address], [facility] 4 10:25:34 Hypokale cheryl 80641543 Active [address], [place], [address], [facility] 4 10:35:09 Hyperlip idemia 14393164 Active 2022 PERI DELEON LPN null, [facility] 3 10:52:44 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 3 10:52:49 Essentia l hyperten nicola 86401986 Active 2022 PERI DELEON PHYSICIAN OFFICE REP null, [facility] 3 10:48:19 Chronic diastoli c heart failure 452164924 Active 2022 PERI DELEON PHYSICIAN OFFICE REP null, [facility]. 3 10:52:40 Arterios clerotic vascular disease 12618583 Active 2022 PERI DELEON PHYSICIAN OFFICE REP null, [facility]. 3 10:52:30 Right flank pain 854962699 Active 2022 Alicja Valdez null, [facility]. 4 12:10:01 Pain in right foot 9789068116 [address]390 Active 2022 Alicja Valdez null, [facility]. 4 12:09:49 Obesity 244368191 Active 2023 Alicja Valdez [facility], [facility]. 4 12:09:38 Depressi ve disorder 75689848 Active 2023 Alicja joyce [facility], [facility]. 4 12:09:25 Nontraum atic rotator cuff tear 614323425 Completed 202308/20/2023 EM BAUER MA null, [facility] 4 13:30:11 Nontraum atic rotator cuff tear 827700663 Active 2023 EM BAUER MA null, [facility] 4 13:30:11 Polyneur opathy 67056738 Active 2023 peripher al Alicja Valdez null, [facility] 4 12:09:51 Thoracic outlet syndrome 307693712 Active 2023 [facility] 4 12:09:55 History of malignan t neoplasm of skin 056541128 Active 2023 [facility] 4 12:09:33 Obstruct dedra sleep apnea syndrome 26882501 Active 2023 [facility] 4 12:09:41 Dyspnea 633384663 Active 2023 [facility] 4 12:09:30 Bilatera l cramp of muscle of lower limbs 5819196028 8687504 Active 2023 [facility] 4 12:09:23 Osteoart hritis 070125720 Active 2023 [facility] 4 12:09:43 Endometr ial carcinom a 587467181 Completed 202308/20/2023 EM BAUER MA [facility], [facility] 4 13:39:54 Diastoli c heart failure 177691714 Active 2023 [facility] 4 12:09:27 Basal cell carcinom a of skin 486290843 Active 2023 [facility] 4 12:09:20 Neoplasm of uncertai n behavior of skin 55904551 Active [address], [place], [address], [facility] 4 10:23:42 Fatigue 66171001 Active [address], [place], [address], [facility] 4 11:38:20 Chronic cough 69628285 Active [address], [facility] [address], [facility] 4 11:38:20 Aortic valve disorder 5748039 Active 2023 TOÑA HUBER MA null, [facility] 4 14:31:00 Subclini antonia hyperthy roidism 767821280 Active 2023 Deneen Fuentes RN null, [facility] 4 10:27:29 Foot pain 48101069 Active [address], [facility] [address], [facility] 4 13:30:03 Low back pain 923715046 Active [address], [facility] [address], [facility] 4 11:54:46 Ankle pain 781243780 Active [address], [facility] [address], [facility] 4 11:55:12 Mammogra phy abnormal 138122643 Active [address], [facility] [address], [facility] 4 11:57:09 Infectio n of skin 897016888 Active [address], [facility] [address], [facility] 4 14:11:49 Pain of right shoulder joint 8667043008 0971094 Active [address], [place], [address], [place] [facility], [facility] 14:14:57 Notes:Some problems listed i n Document: #[id number] could not be added to this patient's chart. Please review this document and add these problems to the patient's chart manually as needed. Problem Notes None recorded. Procedures Surgical History Date Name Laterality Status Provider Name and Address Organization Details Recorded Time 04/06/20 24 excision of melanoma completed EM BAUER MA [facility] 04/12/2024 14:49:16 06/27/20 22 endoscopic calcaneoplasty for Ora deformity completed EM BAUER MA [facility] 08/20/2023 13:51:40 12/29/19 20 mohs surgery completed EM BAUER MA [facility] 08/20/2023 14:03:48 02/23/20 18 Coronary artery bypass/reop completed EM BAUER MA [facility] 08/20/2023 13:52:47 10/02/19 17 cataract surgery completed EM BAUER MA [facility] 08/20/2023 14:02:07 09/17/19 17 Cataract Surgery completed EM BAUER MA [facility] 08/20/2023 14:02:47 11/16/19 13 total knee replacement completed EM BAUER MA [facility] 08/20/2023 13:45:27 03/15/20 12 total knee replacement completed EM BAUER MA [facility] 08/20/2023 13:44:56 open reduction of fracture of tibia and fibula completed EM BAUER MA [facility] 08/20/2023 13:47:29 procedure on elbow completed EM BAUER MA [facility] 08/20/2023 13:47:55 Appendectomy completed EM BAUER MA [facility] 08/20/2023 13:51:52 hysterectomy completed EM BAUER MA [facility] 08/20/2023 13:52:06 Imaging Results Imaging Date Name Status LastModified by Organization Details LastModified Time 06/02/2024 trans-thoracic echocardiogram (TTE) (PROC) completed [email or web address] Information not available 06/03/2024 11:05:57 08/09/2024 CT imaging report completed [email or web address] [facility] [address] [facility] [place], [address] 08/11/2024 13:10:25 Procedure Notes None recorded. Medical Equipment None Reported. Allergies Allergen ID Allergen Name Allergen Category Reaction Reaction Severity Criticality Documentation Date Start Date Code Code System Note Provider Name and Address Organization Details Recorded Time 48870 morphine medicatio n hallucina tions Not available Not available 08/20/2023 7052 RxNorm NATALIE BAUER MA [facility], [facility] 12:21:43 Medications Name Sig Start Date [...] e 50 mcg/actua tion nasal spray,stephan pension [place] 1 spray every day by intranas al [...] Updated DateTime 4 144.14 cm 34.9 kg/m2 63522.7 8 g 97.7 [degF] 96 % 96 % 79 /min 16 /min 144 mm[Hg] 65 mm[Hg] Candelaria Hood LPN [facility], [facility] 4 13:27:22 Date Recorded Body height Body mass index (BMI) Body weight Body temperature Oxygen saturation Oxygen saturation in Arterial blood by Pulse oximetry Heart rate Systolic blood pressure Diastolic blood pressure Provider Name and Address Organization Details Last Updated DateTime 4 144.14 cm 36.7 kg/m2 06417.5 2 g 97.8 [degF] 99 % 99 % 71 /min 138 mm[Hg] 76 mm[Hg] PERI DELEON LPN [facility], [facility] 4 13:48:48 Date Recorded Body height Oxygen saturation Oxygen saturation in Arterial blood by Pulse oximetry Heart rate Body temperature Body mass index (BMI) Body weight Systolic blood pressure Diastolic blood pressure Provider Name and Address Organization Details Last Updated DateTime 4 144.14 cm 96 % 96 % 76 /min 97.7 [degF] 36.9 kg/m2 07034.8 3 g 126 mm[Hg] 76 mm[Hg] Haydee Miller MA [facility], [facility] 4 15:57:18 Date Recorded Body height Body mass index (BMI) Body weight Body temperature Oxygen saturation Oxygen saturation in Arterial blood by Pulse oximetry Heart rate Systolic blood pressure Diastolic blood pressure Provider Name and Address Organization Details Last Updated DateTime 4 144.14 cm 37.6 kg/m2 76350.8 9 g 97.3 [degF] 97 % 97 % 73 /min 124 mm[Hg] 72 mm[Hg] Haydee Miller MA [facility] 4 09:46:04 Social History Question Answer Notes LastModified by Organizat ion Details LastModified Time Tobacco Smoking Status Former Smoker 18 when she quit smoking JODI CUENCA, [place] - [facility]. 08/18/2023 10:42:09 Do You Have An Advance Directive? No Paperwork Given Information not available 12/09/2023 When Did You Quit Smoking? 16+yearssince lastciniles [email or web address] Information not available 08/18/2023 Date Of Most Recent HSA 12/09/2023 Information not available 12/09/2023 Would You Say That, In General, Your Health Is Fair [email or web address] Information not available 08/18/2023 How Often Does Anyone, Including Family, Physically Hurt You? Never [email or web address] Information not available 08/18/2023 How Often Does Anyone, Including Family, Insult Or Talk Down To You? Never [email or web address] Information not available 08/18/2023 How Often Does Anyone, Including Family, Threaten You With Harm? Never [email or web address] Information not available 08/18/2023 How Often Does Anyone, Including Family, Scream Or Curse At You? Never [email or web address] Information not available 08/18/2023 Within The Past 12 Months, You Worried That Your Food Would Run Out Before You Got Money To Buy More. Sometimes True Information not available 12/09/2023 Within The Past 12 Months, The Food You Bought Just Didn't Last And You Didn't Have Money To Get More. Never True [email or web address] Information not available 08/18/2023 How Hard Is It For You To Pay For The Very Basics Like Food, Housing, Medical Care, And Heating? Would You Say It Is: Not Hard At All Information not available 12/09/2023 In The Past 12 Months, Has Lack Of Reliable Transportation Kept You From Medical Appointments, Meetings, Work Or From Getting Things Needed For Daily Living? No [email or web address] Information not available 08/18/2023 What Is Your Housing Situation Today? I Have Housing. [email or web address] Information not available 08/18/2023 How Often In The Past Year Have You Used Marijuana (including Smoking, Vaping, Dabbing, Or Edibles)? Never [email or web address] Information not available 08/18/2023 How Often In The Past Year Have You Used Prescription Medications That Were Not Prescribed To You? Never [email or web address] Information not available 08/18/2023 How Often In The Past Year Have You Taken Your Own Prescription Medication More Than The Way It Was Prescribed Or For Different Reasons Than Its Intended Purpose? Never Information not available 08/18/2023 How Often In The Past Year Have You Used Other Drugs (for Example, Heroin, Cocaine, Meth, Salvia, Inhalants)? Never [email or web address] Information not available 08/18/2023 What Matters Most To You? to Be Safe And Healthy, See And Walk Information not available 12/09/2023 During The Past Four Weeks, Was Someone Available To Help You If You Needed And Wanted Help? (For Example, If You [place] Very Nervous, Lonely, Or Blue; Got Sick [...] Do You Have A Medical Power Of Morgue Technician? No Information not available 12/09/2023 What Was The Date Of Your Most Recent Tobacco Screening? 07/25/2024 [email or web address] Information not available 07/25/2024 At What Age Did You Start Smoking Tobacco? 16 [email or web address] Information not available 08/18/2023 Has Tobacco Cessation [...] Organization Details LastModified Time Mother Diastolic dysfunction [email or web address] Not available 07/28 13:53:44 Mother Congestive heart failure 68 [email or web address] Not available 2023 13:55:35 Brother Myocardial infarction [email or web address] Not available 08/20 13:54:51 Brother Family history of malignant neoplasm [email or web address] Not available 2023 14:47:47 Sister Family history of malignant neoplasm [email or web address] Not available 2023 14:47:47 Medical History No medical history recorded. Gynecological HistoryNo gynecological history recorded. Obstetrics History GPAL:G 0 P 0 0 0 0 Immunizations Vaccine Type Date Status Note Provider Nam e and Address Organization Details Recorded Time Td (adult), 2 Lf tetanus toxoid, preservative free, adsorbed 4 completed SACHIN RAMIREZ, JACQUELIN [address], [place], [address], [facility] 08/18/2023 22:14:59 Influenza, high-dose, trivalent, PF 4 completed SACHIN RAMIREZ [employer] FORMING MACHINE OPERATOR [address], [place], [address], [facility] 04/12/2024 21:01:41 SARS-COV-2 (COVID-19) vaccine, UNSPECIFIED 3 completed JODI CUENCA, [facility] 08/20/2023 12:15:28 SARS-COV-2 (COVID-19) vaccine, UNSPECIFIED 1 completed JODI CUENCA, [facility] 08/20/2023 12:15:34 SARS-COV-2 (COVID-19) vaccine, UNSPECIFIED 1 completed JODI CUENCA, [facility] 08/20/2023 12:15:49 SARS-COV-2 (COVID-19) vaccine, UNSPECIFIED 1 completed JODI CUENCA, [facility] 08/20/2023 12:15:55 SARS-COV-2 (COVID-19) vaccine, UNSPECIFIED 2 completed JODI CUENCA, [facility] 08/20/2023 12:16:04 Pneumococcal conjugate PCV 13 5 completed JODI CUENCA, [facility] 08/20/2023 12:16:40 influenza, unspecified formulation 0 completed JODI CUENCA, [facility] 08/20/2023 12:17:06 influenza, unspecified formulation 1 completed JODI CUENCA, [facility] 08/20/2023 12:17:14 influenza, unspecified formulation 2 completed JODI [facility]CA, [facility] 08/20/2023 12:17:20 influenza, unspecified formulation 3 completed JODI CUENCA, [facility] 08/20/2023 12:17:30 pneumococcal polysaccharide PPV23 2 completed JODI CUENCA, [facility] 08/20/2023 12:18:00 pneumococcal polysaccharide PPV23 9 completed JODI CUENCA, [facility] 08/20/2023 12:18:09 Tdap 2 completed JODI CUENCA, [facility] 08/20/2023 12:18:41 zoster, unspecified formulation 9 completed JODI CUENCA, [facility] 08/20/2023 12:18:59 zoster, unspecified formulation 9 completed JODI CUENCA, [facility] 08/20/2023 12:19:04 zoster, unspecified formulation 2 completed EM BAUER MA [place], [place] - [facility] 08/20/2023 12:19:11 Past Encounters Encounter ID Performer Location Encounter Start Date Encounter Closed Date Diagnosis/Indication Diagnosis SNOMED-CT Code Diagnosis ICD10 Code Diagnosis Note [id number] [address] [address] 07/10/2023 08:03:29 07/10/2023 09:07:38 Right flank pain 519792202 R10.9 Intermitte nt right flank pain/tende rness radiating to lower right quadrant. Patient in no acute distress. Patient denies any trauma/inj ury. Urinalysis negative for any blood. Supportive therapy discussed including heat to area, muscle rubs, Tylenol, rest and adequate hydration. Monitoring labs today include CBC, CMP and urinalysis . Differenti al diagnoses include muscle strain, renal calculi or acute kidney injury. Plan discussed and understood by patient. Concerning symptoms reviewed as to when patient should seek emergency room care. Patient in agreement. Follow-up in 1 week or sooner if needed. Essential hypertension 75522998 I10 Blood pressure on the normal side of low today in clinic. Patient asymptomat ic at this time but does admit to some intermitte nt lightheade dness. Patient reports taking medication s as prescribed . Monitoring labs drawn today. Patient encouraged to monitor blood pressure, maintain adequate hydration and take medication s as prescribed . Encouraged to change positions slowly. Follow-up in 1 week or sooner if needed. [id number] [address] [address] 07/15/2023 10:11:36 07/15/2023 10:53:13 Essential hypertension 72989958 I10 VSS. Blood pressure well-contr olled and at goal. Patient reports taking medication s as prescribed . Monitoring labs drawn Completed last week with no concerning findings. Patient encouraged to monitor blood pressure, maintain adequate hydration and take medication s as prescribed . Return to clinic next month for official new patient appointmen t. Pain in right foot [id number] 73016 M79.671 Intermitte nt 2-week pain in medial aspect of right foot. Patient reports increased pain at night when sheet/blan ket is draped over foot. normal exam in office today. Supportive therapy discussed including warm water/Epso m salt soaks in the evening before bed. Continue to monitor and follow-up as needed. Right flank pain [id number] R10.9 Returning to clinic for follow-up of right-side d flank pain. Patient reports this has mainly resolved. Continue with supportive measures including heating pad and muscle rubs as needed. Continue to monitor follow-up if symptoms worsen or persist. [id number] JACQUELIN QUISPE [address] [address] 08/18/2023 10:29:16 08/18/2023 12:16:13 Hyperlipidemia 10524990 E78.5 Lipid panel to be drawn today. Patient to continue with statin therapy. Tolerating well. Patient discussion concerning lifestyle modificati ons of low-fat, low carbohydra te diet, exercise regimen, stress reduction and sleep hygiene. Obesity 662003531 E66.9 Again, lifestyle modificati ons discussed including diet, exercise, stress reduction and sleep hygiene. Patient interested in weight loss medication . Will be discussed further when patient returns home from [place] this spring. Patient encouraged to keep a food/diet journal. Essential hypertension 74862146 I10 VSS. Blood pressure well-contr olled and at goal. Patient reports taking medication s as prescribed . Monitoring labs drawn Completed last week with no concerning findings. Patient encouraged to monitor blood pressure, maintain adequate hydration and take medication s as prescribed . Return to clinic when she returns home from [place]. Screening for malignant neoplasm of colon 591197033 Z12.11 Referral sent for colonoscop y. Patient due for colonoscop y 2 years ago. After next C-scope, patient should no longer need screening. Active or passive immunization 711564737 Z23 Administer ed in office today. [id number] Fabi Marin PA-C [address] [address] 11/03/2023 10:33:42 11/03/2023 11:24:23 Upper respiratory infection 69560987 J06.9 Negative covid and flu,pt on cefpodoxim e for respirator y infection as per urgent care ~4 days ago. Vitals wnl, lungs CTAB. mild nasal congestion and pt complainin g of cough will treat for sxs. Patient was counseled on supportive care, has OTC meds at home. Aware that if any worsening of current sxs or new sxs such as fever, ear pain ,face pain, pain with swallowing , rash, cough over 2 weeks RTC for re-evaluat ion. If any CP, extreme fatigue, intractabl e fever, abdominal pain or SOB when walking to bathroom go to ER. The patient understand s and agrees with plans Obesity 156936258 E66.9 A1c is normal, at last visit was considerin g GLP1 for weight loss. Pt is losing wieght intentiona lly unassisted , A1c is normal, would not qualify for GLP1 at this time [id number] [address] [address] 11/16/2023 09:16:49 11/16/2023 09:52:12 Fatigue 18469939 R53.83 Pt with untreated CINTHIA which may be contributi ng in add'n to current inf'n. Will also check TSH. Chronic cough 31386757 R 05.3 With purulent sputum, not improved with adequate course of broad-spec trum antibiotic s.a. Obtain sputum sample for culture to identify potential pathogens and guide further antibiotic treatment, and check CBC and CMP.b. Will obtain another chest x-ray to eval for pneumonia. c. Continue using nasal corticoste roid (Flonase) as prescribed . Neoplasm o f uncertain behavior of skin 61070413 D48.5 on nose in pt with hx BCC. advised derm eval. (also with excoriated lesion R jewish, ? [place]; advised she defer from scratching /picking and have this eval'd by PCP or derm). Obesity 788913176 E66.9 : Patient expresses concern about abdominal fat and difficulty losing weight.- Plan:a. Encourage a healthy diet and regular exercise.b . Discuss realistic expectatio ns for body changes with age and the potential risks of elective fat removal procedures . Obstructiv e sleep apnea syndrome 15932780 G47.33 Patient has a history of sleep apnea and difficulty tolerating CPAP therapy.- Plan:a. Encourage continued weight loss, which may improve sleep apnea symptoms.b . PCP to Follow up on the patient's upcoming sleep study appointmen t and discuss alternativ e treatment options if necessary. [id number] SACHIN HERNANDEZ[address] [address] 12/09/2023 12:38:05 12/09/2023 13:45:09 Adult health examination 102038858 Z78.0 Patient presented to office today for their Medicare Annual Wellness Visit. Education was provided on healthy nutrition, including a diet rich in fruits and vegetables , minimizing simple carbohydra bessy, salt, and saturated fats. Encouraged regular cardiovasc ular exercise such as walking at least 30 minutes daily, 5 times per week. Emphasized preventive health measures and educated pt on fall prevention and community- based lifestyle interventi ons to help reduce health risks and promote healthy living. Personaliz ed prevention plan (PPP) completed and reviewed with patient. Patient was given written copy of PPP at conclusion of visit, detailing prior screening and 5-10 year future screening plan including: screenings for breast cancer and colorectal cancer, immunizati ons, and other age appropriat e screenings consistent with USPSTF and ACIP guidelines Foot pain 53568842 M79.6 71 M79.672 Increase bilateral foot discomfort with activities . Has seen podiatry in the past for orthotic. Referral placed. Discussed supportive footware. Screening for malignant neoplasm of colon 458050664 Z12.11 Referral sent for colonoscop y. Patient due for colonoscop y 2 years ago. After next C-scope, patient should no longer need screening. Screening mammography 24 783445 Z12.31 Screening for osteoporosis 798921711 Z78.0 [id number] [address] 01/05/2024 10:54:02 01/05/2024 11:42:50 Obesity 137170626 E66.9 Again, lifestyle modificati ons discussed including diet, exercise, stress reduction and sleep hygiene. Patient interested in weight loss medication . Will be discussed further when patient returns home from [place] this spring. Patient encouraged to keep a food/diet journal. Essential hypertension 94862290 I10 VSS. Blood pressure well-contr olled and at goal. Patient reports taking medication s as prescribed . Monitoring labs drawn Completed last week with no concerning findings. Patient encouraged to monitor blood pressure, maintain adequate hydration and take medication s as prescribed . Low back pain 643028560 M54.50 The patient is experienci ng right lower back pain that radiates into her right leg. The pain started after lifting something heavy. The patient will be referred to physical therapy for evaluation and management of her back pain. The patient will continue her stretching exercises and monitor her symptoms. Ankle pain 624775337 M25 .579 Patient reports weakness in her left ankle. No deformity noted. Good range of motion. Patient encouraged to wear supportive footwear and ankle brace. Placed to physical therapy to assist with exercises to strengthen ankle. Mammography abnormal 168 865805 R92.8 The patient has a recent mammogram finding of an area of concern, possibly dense tissue. She is scheduled for an ultrasound today. The patient will follow up with her clinician after the ultrasound for further evaluation and management . [id number] SACHIN RAMIREZ, [address] [address] 04/12/2024 14:18:14 04/12/2024 15:29:45 Basal cell carcinoma of skin 428240334 C44.91 - The patient had the carcinoma removed on April 07. The incision is healing well, and sutures are expected to dissolve in 10 to 14 days.Plan: - Continue to follow post-opera tive care kim tucker.- Follow up with Dr. Salinas at [facility] in [place] as advised. Bilateral cramp of muscle of lower limbs [id number] 0858439 R25.2 Patient encouraged to hydrate appropriat tg. Continue with magnesium supplement s. Will start Neurontin for neuropathi es. If this does not help leg discomfort , we will consider additional therapy. Continue to monitor follow-up in 3 months or sooner if needed. Obstructiv e sleep apnea syndrome 09994268 G47.33 Continue with plans for sleep study. Weight loss and sleep hygiene discussed. Follow-up after sleep study results are obtained. Polyneuropathy 12789154 G62.9 Bilateral lower extremity neuropathi es. Seen by podiatry and given bilateral injections . Recommenda tion for gabapentin for treatment of symptoms. Patient to start gabapentin 100 mg 3 times daily. We will titrate up as needed. Continue to monitor follow-up in 3 months or sooner if needed. Active or passive immunization 867757563 Z23 Administer ed in office today. [id number] ROGER ARGUETA PA-C [address] [place] [address] 05/13/2024 10:54:11 05/13/2024 13:50:24 Infection of skin 171825362 L08.9 Patient has developed infection of the skin on the right side of the forehead where she had a basal cell carcinoma removed on 04/07. Dissolvabl e sutures were placed. It does appear that they have dissolved. She has developed redness and this last week and on exam I think mostly cellulitic however there was a very minuscule amount of purulent drainage I was able to express and I have obtained culture and sent for testing. This will take 2 days to return and once available we will communicat e them back to her come Thursday. In the meantime I am going to start her on renal dosing cephalexin 500 mg once every 8 hours for the next 5 days. Educated about expect time course of resolution and if does not resolve upon completion of antibiotic should have reevaluati on. Patient voiced under. [id number] JACQUELIN QUISPE [address] [address] 05/25/2024 13:28:48 05/25/2024 14:28:28 Pain of right shoulder joint [id number] 9220922 M25.511 Shoulder pain, right, history of torn rotator cuffs as per pt self report- Referral to [facility] for evaluation and possible cortisone injection- Imaging (x-ray) may be needed if not done recently Obstructiv e sleep apnea syndrome 64398799 G47.33 Sleep apnea and Inspire implant evaluation - Surgery scheduled for June 14 for sedation and airway study- Patient to confirm if pre-op clearance is needed from the primary care provider- Patient to provide more informatio n regarding anesthesia and pre-op requiremen ts Pain in face 87048361 R5 1.9 Intermitte nt pain on left side of face x 4 months, possible trigeminal neuralgia vs GCA- Recommend ibuprofen for inflammati on and pain relief- Suggest warm compresses , acupunctur e, and chiropract ic care- Pending recent BUN and creatinine levels, plan for head CT with contrast to rule out vascular issuesAdde ndum: At this point I am more concerned about giant cell arteritis or trigeminal arteritis. Would like having ESR and CRP drawn. If these are positive, next step would be to have an ultrasound completed. I am agreeable to ordering a head CT without contrast however either GCA or TA. For not to have IV contrast due to stage III kidney cancer and GFR 38. [id number] SACHIN JAMES [facility] [address] [place] [address] 06/01/2024 15:42:09 06/02/2024 04:34:12 Gastroesophageal reflux disease without esophagitis 350421512 K21.9 Restart omeprazole . Encouraged to monitor p.o. intake and focus on lifestyle modificati ons including diet, exercise, sleep hygiene and stress reduction. Avoid any foods may be triggering to symptoms. Continue to monitor and follow-up as needed [id number] SACHIN JAEMS [facility] [address] [place] [address] 07/25/2024 09:29:15 07/25/2024 10:47:05 Hyperlipidemia 18362138 E78.5 Basal cell carcinoma of skin 012810000 C44.91 - The patient had the carcinoma removed on April 07. The incision healed well.Plan: - Follow up with Dr. Salinas at [facility] in [place] as advised. Obstructiv e sleep apnea syndrome 54215312 G47.33 Continue with plans for sleep study. Weight loss and sleep hygiene discussed. Follow-up after sleep study results are obtained. Polyneuropathy 79482688 G62.9 Bilateral lower extremity neuropathi es. Seen by podiatry and given bilateral injections . Some relief with gabapentin for treatment of symptoms. We will titrate up as needed. Continue to monitor follow-up in 3 months or sooner if needed. Pain of ri ght shoulder joint 7268144886 3156258 M25.511 Shoulder pain, right, history of torn rotator cuffs as per pt self report-PT referral Pain in face 36739454 R5 1.9 Intermitte nt pain on left [...] 38. Pain in ri ght hip joint 8536430952 09325 M25.551 - Refer the patient to [facility] in [place] for evaluation and treatment of right hip pain.- Reassess after 6 weeks of physical therapy; if no improvemen t, consider referral to orthopedic s and obtain X-rays. Hypokalemia 01369648 E87 .6 History of hypokalemi a. BMP to be checked today. Continue with potassium at this time. Essential hypertension 34161193 I10 VSS. Blood pressure well-contr olled and at goal. Patient reports taking medication s as prescribed . Monitoring labs drawn Completed last week with no concerning findings. Patient encouraged to monitor blood pressure, maintain adequate hydration and take medication s as prescribed . Obesity 883719094 E66.9 Again, lifestyle modificati ons discussed including diet, exercise, stress reduction and sleep hygiene. Patient interested in weight loss medication . Will be discussed further when patient returns home from [place] this spring. Patient encouraged to keep a food/diet journal. [id number] Stoney Fuentes RN [address] [address] 08/23/2024 08:22:44 08/23/2024 09:49:21 Essential hypertension 60339066 I10 Health Concerns Section Related Observation LastModified by Organization Detai ls LastModified Time None Recorded Concern Status LastModified by Organization Details LastModified Time None Recorded Advance Directives Directive N: paperwork given Payers Encounter Date Sequence Insurance Name Policy Number Policy Kearns Covered Member ID Kearns Member ID Guarantor Name 05/13/2024 1 [place]) [id number] Liya A Chago [id number] Liya A Chago 05/13/2024 2 [place] Liya A Chago [id number] Liya A Chago 05/25/2024 1 [place] [id number] Liya A Chago [id number] Liya A Chago 05/25/2024 2 [place] Liya A Chago [id number] Liya A Chago 06/01/2024 1 [place] [id number] Liya A Chago [id number] Liya A Chago 06/01/2024 2 [place] Liya A Chago [id number] Liya A Chago 07/25/2024 1 [place] [id number] Liya A Chago [id number] Liya A Chago 07/25/2024 2 [facility] (MEDICAID) Liya A Chago [id number] Liya A Chago 08/23/2024 1 [place] [id number] Liya A Chago [id number] Liya A Chago 08/23/2024 2 [facility] (MEDICAID) Liya A Chago [id number] Liya A Chago Notes Date Note Type Note Provider Name and Address Organization Details Recorded Time 05/13/2024 text/html Liya is a 78-year-old female who presents with concern for infection on the right side of her forehead. She had a basal cell carcinoma removed by Dr. Salinas at [facility] dermatology on 04/07. Had dissolvable sutures. Saw primary care on 04/12 look to be healing well. In the last week she has noticed this area has now become red, has not been painful. No history of MRSA. Has not had fevers. Has been applying vitamin E. [address], [place], [address], [facility], [facility]. 05/13/2024 14:11:58 05/25/2024 text/html 78-year-old andriy miller accompanied by [...] for an extended period. [address], [place], [address], [facility], [facility]. 05/26/2024 12:04:41 06/01/2024 text/html 78-year-old andriy miller presents to clinic today for preoperative clearance for upcoming evaluation for Inspire device to treat sleep apnea. Patient is a poor historian. Daughter is accompanying her today to assist with any questions. Surgery: 06/07/2024 initial evaluation to be completed at [facility]. -Bio prosthetic AVR and CABG 2018-Congestive heart failure with mildly elevated BNP since 2018, treated with daily diuretic-Hypertension -Morbid obesityNO h/o stroke/TIANO h/o DM on insulinCr <2.0 Fx Status: -EtOH- several drinks every other week-Illicits/tobacco : none-anticoag/ASA/jayson roids/nsaids: low dose ASA H/O surgical complications: No -no h/o bleeding d/o-no fhx of bleeding d/o-no allergies to iodine/latex [address], [place], [address], [facility], [facility]. 06/01/2024 21:28:50 07/25/2024 text/html The patient, Marleny [...] about her diet. Liya has seen an secretary specialist for her hearing and reports that it has improved after having her ear cleaned. 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 SACHIN HERNANDEZOST, [employer] [address], [place], [address], [facility], [facility]. 07/25/2024 12:56:09 OBGyn Episode No OBEpisode recorded.
--- OUTSIDE RECORDS SUMMARY | 2024-08-23 14:27 | XMS_ITS | Continuity of Care Document ---
Author Organization [facility], [facility] Address [address] [place] [address] Care Team Providers Care Freight Elevator Erector Name Role Phone JACQUELINE ROCKWELL Safety Compliance Specialist [facility] Gastroenterologi st KELLY STEVENSON [employer] Equipment Operator [facility] Orthopedist [facility] dicine ROSETTE PALOMINO Physical Therapist [phone] ALYSSA MONTEZ Sleep Medicine VIJI STEWART Safety Compliance Specialist Assessment Encounter Date Assessment Date Assessment [...] based on the Revised Cardiac Risk Index. [email or web address] Not available 06/01/2024 21:28:03 Plan of Treatment Reminders Order Date Submit Date Provider Last Modified By Organization Details Last Modified Time Details Appointments Nurse Visit 20 2024 10:40A M [facility] Not available Not available Not available Massage 30 2024 02:00P M [facility] Not available Not available Not available Reiki 2024 03:30P [facility] Not available Not available Not available Reiki 2024 04:30P [facility] Not available Not available Not available Follow Up 2024 11:30A M SACHIN JAMES Not available Not available Not available Lab None recorded. Referral None recorded. Procedures None recorded. Surgeries None recorded. Imaging None recorded. Medication Orders omeprazol e 40 mg capsule,d elayed release 2023 024 [facility] [address] [place], [address], 06/01/2024 16:16:22 Patient TargetsNo targets recorded. Patient InstructionsNo instructions recorded. Reason for Referral None Reported. Results Created Date Observation Date Name Description Value Unit Range Abnormal Flag Note LastModifiedBy Organization Detail LastModifiedTime 06/03/20 24 06/02/2024 trans -thor acic echoc ardio gram (TTE) (PROC ) No observ ation record ed. [email or web address] Not Available 06/03 11:05:57 08/09/19 25 08/09/2024 CT imagi ng repor t Patien t Name: Liya Anders Unit #: [id number] Loc: DI Orderi ng Provid er: Provos t,Abig ail Accoun t #: [id number] Status : REG CLI Primar [...] ement: Unrema rkable . CTA Brain W: Construction Teacher al Caroti d Arteri es: Athero sclero tic calcif icatio n is seen in the physician general internal medicine al caroti d arteri es with less [...] occlus ion or signif icant stenos is. Loom Inspector ior cerebr al Arteri es: Right: No [...] facili ty are submit giselle to the [facility] al Radiol ogy Data Regist ry (NRDR) Dose Index Regist ry (DIR) with the Americ kemi taylor of Radiol ogy (ACR). RADIAT ION OPTIMI ZATION : [facility] least one of these [...] at the addres s above. Thank- you. [email or web address] [address] , [place], [address] 08/11/2024 13:10:25 Result Notes None recorded. Problems Name Problem SNOMED Code Status Onset Date Resolution Date Notes Provider Name and Address Organization Details Recorded Time Pain in face 45967972 Active 2023 JACQUELIN QUISPE [address], [place], [address], [place] [facility]. 21:06:12 Gastroes ophageal reflux disease without esophagi tis 971419271 Active 2023 SACHIN JAMES, SENIOR EXAMINER [address], [place], [address], [facility]. 4 16:15:26 Pain in right hip joint 7747169819 64557 Active 2023 SACHIN JAMES, SENIOR EXAMINER [address], [place], [address], [facility]. 4 10:25:34 Hypokale cheryl 78005269 Active 2023 SACHIN JAMES, SENIOR EXAMINER [address], [place], [address], [facility]. 4 10:35:09 Hyperlip idemia 96890122 Active 2022 PERI DELEON, BINDER AND WRAPPER PACKER null, [facility], [facility]. 3 10:52:44 Hypothyr oidism 82609805 Active 2022 PERI ADRIENNE, BINDER AND WRAPPER PACKER null, [facility], [facility]. 3 10:52:49 [facility]ia l hyperten nicola 36932342 Active 2022 PERI ADRIENNE, BINDER AND WRAPPER PACKER null, [facility], [facility]. 3 10:48:19 Chronic diastoli c heart failure 429630598 Active 2022 PERI LACJOSH, BINDER AND WRAPPER PACKER null, [facility], [facility]. 3 10:52:40 Arterios clerotic vascular disease 26267773 Active 2022 PERI LACJOSH, BINDER AND WRAPPER PACKER null, [facility], [facility]. 3 10:52:30 Right flank pain 988744388 Active 2022 Alicja Sekenishaold null, [facility] 4 12:10:01 Pain in right foot 8326298616 06712 Active 2022 Alicjaher Valdez null, [facility] 4 12:09:49 Obesity 084333187 Active 2023 [facility], [facility]. 12:09:38 Depressi ve disorder 09100829 Active 2023 [facility] 4 12:09:25 Nontraum atic rotator cuff tear 760509882 Completed 202308/20/2023 EM BAUER MA null, [facility] 4 13:30:11 Nontraum atic rotator cuff tear 525653605 Active 2023 EM BAUER MA null, [facility] 4 13:30:11 Polyneur opathy 53718866 Active 2023 peripher al [facility], [facility] 4 12:09:51 Thoracic outlet syndrome 992302318 Active 2023 [facility] 12:09:55 History of malignan t neoplasm of skin 932629056 Active 2023 [facility] 12:09:33 Obstruct dedra sleep apnea syndrome 81578362 Active 2023 [facility], [facility]. 12:09:41 Dyspnea 653051181 Active 2023 [facility], [facility]. 4 12:09:30 Bilatera l cramp of muscle of lower limbs 2200088096 1652914 Active 2023 [facility], [facility] 12:09:23 Osteoart hritis 935768409 Active 2023 [facility], [facility] 4 12:09:43 Endometr ial carcinom a 281172693 Completed 202308/20/2023 EM BAUER MA null, [facility] 4 13:39:54 Diastoli c heart failure 384658554 Active 2023 Alicja Valdez null, [facility] 4 12:09:27 Basal cell carcinom a of skin 462965837 Active 2023 Alicja Jackkenishanavneet null, [facility] 4 12:09:20 Neoplasm of uncertai n behavior of skin 06141603 Active [address], [place], [address], [facility] 4 10:23:42 Fatigue 97456425 Active [address], [place], [address], [facility] 4 11:38:20 Chronic cough 91656357 Active [address], [place], [address], [facility] 4 11:38:20 Aortic valve disorder 5527454 Active 2023 TOÑA HUBER MA null, [facility] 4 14:31:00 Subclini antonia hyperthy roidism 068755615 Active 2023 Deneen Fuentes RN null, [facility] 4 10:27:29 Foot pain 85197266 Active [address], [place], [address], [facility] 4 13:30:03 Low back pain 177321576 Active [address], [place], [address], [facility] 4 11:54:46 Ankle pain 530211537 Active 2023 JACQUELIN QUISPE [address], [place], [address], [facility] 11:55:12 Mammogra phy abnormal 051808353 Active 2023 JACQUELIN QUISPE [address], [place], [address], [facility] 11:57:09 Infectio n of skin 914819088 Active 2023 ROGER ARGUETA PA-C [address], [place], [address], [facility] 14:11:49 Pain of right shoulder joint 4908513461 2295697 Active [address], [facility] [address], [facility] 14:14:57 Notes:Some problems listed i n Document: #[id number] could not be added to this patient's chart. Please review this document and add these problems to the patient's chart manually as needed. Problem Notes None recorded. Procedures Surgical History Date Name Laterality Status Provider Name and Address Organization Details Recorded Time 04/06/20 24 excision of melanoma completed EM BAUER MA [facility] 04/12/2024 14:49:16 06/27/20 22 endoscopic calcaneoplasty for Ora deformity completed EM BAUER MA [facility] 08/20/2023 13:51:40 12/29/19 20 mohs surgery completed EM BAUER MA [facility] 08/20/2023 14:03:48 02/23/20 18 Coronary artery bypass/reop completed EM BAUER MA [facility] 08/20/2023 13:52:47 10/02/19 17 cataract surgery completed EM BAUER MA [facility] 08/20/2023 14:02:07 09/17/19 17 Cataract Surgery completed EM BAUER MA [facility] 08/20/2023 14:02:47 11/16/19 13 total knee replacement completed EM BAUER MA [facility] 08/20/2023 13:45:27 03/15/20 12 total knee replacement completed EM BAUER MA [facility] 08/20/2023 13:44:56 open reduction of fracture of tibia and fibula completed EM BAUER MA [facility] 08/20/2023 13:47:29 procedure on elbow completed EM BAUER MA [facility] 08/20/2023 13:47:55 Appendectomy completed EM BAUER MA [facility] 08/20/2023 13:51:52 hysterectomy completed EM BAUER MA [facility] 08/20/2023 13:52:06 Imaging Results None recorded. Procedure Notes None recorded. Medical Equipment None Reported. Allergies Allergen ID Allergen Name Allergen Category Reaction Reaction Severity Criticality Documentation Date Start Date Code Code System Note Provider Name and Address Organization Details Recorded Time 04569 morphine medicatio n hallucina tions Not available Not available 08/20/2023 7052 RxNorm NATALIE BAUER [facility] 12:21:43 Medications Name Sig Start Date Stop [...] e 50 mcg/actua tion nasal spray,stephan pension [place] 1 spray every day by intranas al [...] % 76 /min 97.7 [degF] 36.9 kg/m2 49733.8 3 g 126 mm[Hg] 76 mm[Hg] Haydee Miller MA [facility] 4 15:57:18 Social History Question Answer Notes LastModified by Organizat ion Details LastModified Time Tobacco Smoking Status Former Smoker 18 when she quit smoking EM BAUER [facility] 08/18/2023 10:42:09 Do You Have An Advance Directive? No Paperwork Given Information not available 12/09/2023 When Did You Quit Smoking? 16+yearssince lastcigarette [email or web address] Information not available 08/18/2023 Date Of Most Recent HSA 12/09/2023 Information not available 12/09/2023 Would You Say That, In General, Your Health Is Fair [email or web address] Information not available 08/18/2023 How Often Does Anyone, Including Family, Physically Hurt You? Never [email or web address] Information not available 08/18/2023 How Often Does Anyone, Including Family, Insult Or Talk Down To You? Never [email or web address] Information not available 08/18/2023 How Often Does Anyone, Including Family, Threaten You With Harm? Never [email or web address] Information not available 08/18/2023 How Often Does [...] Have Money To Get More. Never True [email or web address] Information not available 08/18/2023 How Hard Is It For You To Pay For The Very Basics Like Food, Housing, Medical Care, And Heating? Would You Say It Is: Not Hard At All Information not available 12/09/2023 In The Past 12 Months, Has Lack Of Reliable Transportation Kept You From Medical Appointments, Meetings, Work Or From Getting Things Needed For Daily Living? No [email or web address] Information not available 08/18/2023 What Is Your Housing Situation Today? I Have Housing. Information not available 08/18/2023 How Often In The Past Year Have You Used Marijuana (including Smoking, Vaping, Dabbing, Or Edibles)? Never [email or web address] Information not available 08/18/2023 How Often In The Past Year Have You Used Prescription Medications That Were Not Prescribed To You? Never [email or web address] Information not available 08/18/2023 How Often In The Past Year Have You Taken Your Own Prescription Medication More Than The Way It Was Prescribed Or For Different Reasons Than Its Intended Purpose? Never Information not available 08/18/2023 How Often In The Past Year Have You Used Other Drugs (for Example, Heroin, Cocaine, Meth, Salvia, Inhalants)? Never [email or web address] Information not available 08/18/2023 What Matters Most To You? to Be Safe And Healthy, See And Walk Information not available 12/09/2023 During The Past Four Weeks, Was Someone Available To Help You If You Needed And Wanted Help? (For Example, If You Banner Very Nervous, Lonely, Or Blue; Got Sick [...] Do You Have A Medical Power Of Resaw Carriage Operator? No Information not available 12/09/2023 What Was The Date Of Your Most Recent Tobacco Screening? 07/25/2024 [email or web address] Information not available 07/25/2024 At What Age Did You Start Smoking Tobacco? 16 [email or web address] Information not available 08/18/2023 Has Tobacco Cessation [...] Organization Details LastModified Time Mother Diastolic dysfunction [email or web address] Not available 07/28 13:53:44 Mother Congestive heart failure 68 [email or web address] Not available 2023 13:55:35 Brother Myocardial infarction [email or web address] Not available 08/20 13:54:51 Brother Family history of malignant neoplasm [email or web address] Not available 2023 14:47:47 Sister Family history of malignant neoplasm [email or web address] Not available 2023 14:47:47 Medical History No medical history recorded. Gynecological HistoryNo gynecological history recorded. Obstetrics History GPAL:G 0 P 0 0 0 0 Immunizations Vaccine Type Date Status Note Provider Nam e and Address Organization Details Recorded Time Td (adult), 2 Lf tetanus toxoid, preservative free, adsorbed 4 completed SACHIN RAMIREZ, JACQUELIN [address], [place], [address], [facility] 08/18/2023 22:14:59 Influenza, high-dose, trivalent, PF 4 completed SACHIN RAMIREZ, JACQUELIN [address], [place], [address], [facility] 04/12/2024 21:01:41 SARS-COV-2 (COVID-19) vaccine, UNSPECIFIED 3 completed JODI CUENCA, [facility] 08/20/2023 12:15:28 SARS-COV-2 (COVID-19) vaccine, UNSPECIFIED 1 completed JODI CUENCA, [facility] 08/20/2023 12:15:34 SARS-COV-2 (COVID-19) vaccine, UNSPECIFIED 1 completed JODI CUENCA, [facility] 08/20/2023 12:15:49 SARS-COV-2 (COVID-19) vaccine, UNSPECIFIED 1 completed JODI CUENCA, [facility] 08/20/2023 12:15:55 SARS-COV-2 (COVID-19) vaccine, UNSPECIFIED 2 completed JODI CUENCA, [facility] 08/20/2023 12:16:04 Pneumococcal conjugate PCV 13 5 completed JODI CUENCA, [facility] 08/20/2023 12:16:40 influenza, unspecified formulation 0 completed JODI CUENCA, [facility] 08/20/2023 12:17:06 influenza, unspecified formulation 1 completed JODI CUENCA, [facility] 08/20/2023 12:17:14 influenza, unspecified formulation 2 completed JODI CUENCA, [facility] 08/20/2023 12:17:20 influenza, unspecified formulation 3 completed JODI CUENCA, [facility] 08/20/2023 12:17:30 pneumococcal polysaccharide PPV23 2 completed JODI CUENCA, [facility] 08/20/2023 12:18:00 pneumococcal polysaccharide PPV23 9 completed JODI CUENCA, [facility] 08/20/2023 12:18:09 Tdap 2 completed JODI CUENCA, [facility] 08/20/2023 12:18:41 zoster, unspecified formulation 9 completed JODI CUENCA, [facility] 08/20/2023 12:18:59 zoster, unspecified formulation 9 completed JODI CUENCA, [facility] 08/20/2023 12:19:04 zoster, unspecified formulation 2 completed JODI CUENCA, [facility] 08/20/2023 12:19:11 Past Encounters Encounter ID Performer Location Encounter Start Date Encounter Closed Date Diagnosis/Indication Diagnosis SNOMED-CT Code Diagnosis ICD10 Code Diagnosis Note [id number] ROGER ARGUETA PA-C [address],[facility] [address] [place] [address] 05/13/2024 10:54:11 05/13/2024 13:50:24 Infection of skin 094564024 L08.9 Patient has developed infection of the [...] should have reevaluati on. Patient voiced under. [id number] [address] [address] 05/25/2024 13:28:48 05/25/2024 14:28:28 Pain of right shoulder joint 5588385278 8697557 M25.511 Shoulder pain, right, history of torn rotator cuffs as per pt self report- Referral to [facility] for evaluation and possible cortisone injection- Imaging (x-ray) may be needed if not done recently Obstructiv e sleep apnea syndrome 75178884 G47.33 Sleep apnea and Inspire implant evaluation - Surgery scheduled for June 14 for sedation and airway study- Patient to confirm if pre-op clearance is needed from the primary care provider- Patient to provide more informatio n regarding anesthesia and pre-op requiremen ts Pain in face 29174415 R5 1.9 Intermitte nt pain on left [...] stage III kidney cancer and GFR 38. [id number] [address] [address] 06/01/2024 15:42:09 06/02/2024 04:34:12 Gastroesophageal reflux disease without esophagitis 850227946 K21.9 Restart omeprazole . Encouraged to monitor p.o. intake and focus on lifestyle modificati ons including diet, exercise, sleep hygiene and stress reduction. Avoid any foods may be triggering to symptoms. Continue to monitor and follow-up as needed Health Concerns Section Related Observation LastModified by Organization Detai ls LastModified Time None Recorded Concern Status LastModified by Organization Details LastModified Time None Recorded Payers Encounter Date Sequence Insurance Name Policy Number Policy K[employer]ns Covered Member ID Kearns Member ID Guarantor Name 06/01/2024 1 [id number]ANTAGE - [place]PO) [id number] Liya A Chago [id number] Liya A Chago 06/01/2024 2 [place] [employer] Liya A Chago [id number] Liya A Chago Notes Date Note Type Note Provider Name and Address Organization Details Recorded Time 06/01/2024 text/html 78-year-old andriy miller presents to clinic today for preoperative clearance for upcoming evaluation for Inspire device to treat sleep apnea. Patient is a poor historian. Daughter is accompanying her today to assist with any questions. Surgery: 06/07/2024 initial evaluation to be completed at [facility]. 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 06/01/2024 21:28:50 OBGyn Episode No OBEpisode recorded.
--- OUTSIDE RECORDS SUMMARY | 2024-08-23 14:28 | XMS_ITS | Continuity of Care Document ---
Author Organization [facility], [facility] Address [address] [place] [address] Care Team Providers Care Coating Machine Feeder Name Role Phone JACQUELINE ROCKWELL Baseball Pitcher [facility] Gastroenterologi st KELLY STEVENSON Key Account Manager [facility] Orthopedist [facility] ROSETTE PALOMINO Physical Therapist [phone] ALYSSA MONTEZ Sleep Medicine VIJI STEWART Baseball Pitcher Assessment Encounter Date Assessment Date Assessment LastModified by Organization Details LastModified Time 05/25/2024 05/25/2024 The total time devoted to today's encounter, including both the sukb-dp-xkhn time with the patient and/or family/caregi sameer and jhp-gxur-zp-f neha time I personally spent is 25 minutes in visit, 5 minutes prep, 5 minutes charting; total 35 minutes. [email or web address] Not available 05/25/2024 21:07:19 Plan of Treatment Reminders Order Date Submit Date Provider Last Modified By Organization Details Last Modified Time Details Appointments Nurse Visit 20 2024 10:40A M [facility] Not available Not available Not available Massage 30 2024 02:00P M [facility] Not available Not available Not available Reiki 2024 03:30P M [facility] Not available Not available Not available Reiki 2024 04:30P M [facility] Not available Not available Not available Follow Up 30 2024 11:30A M SACHIN HERNANDEZOST Not available Not available Not available Lab None recorded. Referral orthopedi c surgeon [facility] 2023 [facility] [address] [place] [address], [place], [address], 08/03/2024 14:25:20 Procedures None recorded. Surgeries None recorded. Imaging None recorded. Medication Orders None recorded. Patient TargetsNo targets recorded. Patient InstructionsNo instructions recorded. Reason for Referral Orthopedic Surgeon Referral for Pain of right shoulder joint Referring Physician: Sachin Ramirez, [facility] Medicine, Encounter Date: 05/25/2024 Results Created Date Observation Date Name Description Value Unit Range Abnormal Flag Note LastModifiedBy Organization Detail LastModifiedTime 06/03/20 24 06/02/2024 trans -thor acic echoc ardio gram (TTE) (PROC ) No observ ation record ed. [email or web address] Not Available 06/03 11:05:57 08/09/19 25 08/09/2024 CT imagi ng repor t Patien t Name: Liya Anders Unit #: [id number] Loc: DI Orderi ng Provid er: Provos t,Abig ail Accoun t #: [id number] Status : REG CLI Primar [...] ement: Unrema rkable . CTA Brain W: Configuration Management Consultant al Caroti d Arteri es: Athero sclero tic calcif icatio n is seen in the news internship al caroti d arteri es with less [...] occlus ion or signif icant stenos is. Wildlife Refuge Manager ior cerebr al Arteri es: Right: No [...] ZATION : [facility] use at least one of these dose optimi zation techni ques: automa giselle exposu re contro l; mA and/or kV adjust ment per patien t size (inclu opla target ed exams where dose is matche [...] at the addres s above. Thank- you. [email or web address] [facility] [address] [facility] , [facility] [place], [address] 08/11/2024 13:10:25 Result Notes None recorded. Problems Name Problem SNOMED Code Status Onset Date Resolution Date Notes Provider Name and Address Organization Details Recorded Time Pain in face 73643236 Active [address], [place], [address], [facility]. 21:06:12 Gastroes ophageal reflux disease without esophagi tis 487726212 Active [address], [place], [address], [facility], [facility]. 4 16:15:26 Pain in right hip joint 7064526497 20779 Active 2023 SACHIN , UNIVERSAL GRINDER SET UP OPERATOR [address], [place], [address], [facility], [facility]. 4 10:25:34 Hypokale cheryl 12998702 Active 2023 SACHIN , UNIVERSAL GRINDER SET UP OPERATOR [address], [place], [address], [facility], [facility]. 4 10:35:09 Hyperlip idemia 38594388 Active 2022 PERI DELEON, LOGISTICS ADMINISTRATOR null, [facility], [facility]. 3 10:52:44 Hypothyr oidism 91639882 Active 2022 PERI DELEON, LOGISTICS ADMINISTRATOR null, [facility], [facility]. 3 10:52:49 [facility] hyperten nicola 59599077 Active 2022 PERI LACJOSH, LOGISTICS ADMINISTRATOR null, [facility]. 3 10:48:19 Chronic diastoli c heart failure 633586790 Active 2022 PERI LACJOSH, LOGISTICS ADMINISTRATOR null, [facility], [facility]. 3 10:52:40 Arterios clerotic vascular disease 95229473 Active 2022 PERI DELEON, LOGISTICS ADMINISTRATOR null, [facility] 3 10:52:30 Right flank pain 860446469 Active 2022 Alicja Seibold null, [facility], [facility]. 4 12:10:01 Pain in right foot 8566664199 54918 Active 2022 Alicjaher Shepherdold null, [facility] 4 12:09:49 Obesity 918153719 Active 2023 Alicjaher Valdez null, [facility], [facility]. 4 12:09:38 Depressi ve disorder 79533200 Active 2023 [facility], [facility] 4 12:09:25 Nontraum atic rotator cuff tear 333811761 Completed 202308/20/2023 EM BAUER MA null, [facility] 4 13:30:11 Nontraum atic rotator cuff tear 448147310 Active 2023 EM BAUER MA null, [facility] 4 13:30:11 Polyneur opathy 73097059 Active [address] [facility], [facility] 4 12:09:51 Thoracic outlet syndrome 310675099 Active 2023 [facility] 4 12:09:55 History of malignan t neoplasm of skin 570037037 Active 2023 Alicja [facility] 4 12:09:33 Obstruct dedra sleep apnea syndrome 21849713 Active [address] [facility], [facility] 4 12:09:41 Dyspnea 554999242 Active 2023 [facility] 4 12:09:30 Bilatera l cramp of muscle of lower limbs 0997474232 5518931 Active [address] [facility], [facility] 4 12:09:23 Osteoart hritis 658731274 Active [address] [facility], [facility] 4 12:09:43 Endometr ial carcinom a 804547112 Completed 202308/20/2023 EM BAUER MA null, [facility] 4 13:39:54 Diastoli c heart failure 145143888 Active 2023 Alicja Valdez null, [facility] 4 12:09:27 Basal cell carcinom a of skin 091405570 Active 2023 Alicja Valdez null, [facility] 4 12:09:20 Neoplasm of uncertai n behavior of skin 05666638 Active [address], [facility] [address], [facility] 4 10:23:42 Fatigue 77129093 Active [address], [facility] [address], [facility] 4 11:38:20 Chronic cough 55769026 Active [address], [facility] [address], [facility] 4 11:38:20 Aortic valve disorder 6464759 Active 2023 TOÑA HUBER MA null, [facility] 4 14:31:00 Subclini antonia hyperthy roidism 719165737 Active 2023 Deneen Fuentes RN null, [facility] 4 10:27:29 Foot pain 37314518 Active [address], [place], [address], [facility] 4 13:30:03 Low back pain 610913566 Active [address], [place], [address], [facility] 4 11:54:46 Ankle pain 872723023 Active [address], [place], [address], [facility], [facility] 11:55:12 Mammogra phy abnormal 734493674 Active [address], [place], [address], [facility] 11:57:09 Infectio n of skin 287534688 Active [address], [place], [address], [facility] 14:11:49 Pain of right shoulder joint 2196936644 2602398 Active [address], [place], [address], [facility] 14:14:57 Notes:Some problems listed i n Document: #[id number] could not be added to this patient's chart. Please review this document and add these problems to the patient's chart manually as needed. Problem Notes None recorded. Procedures Surgical History Date Name Laterality Status Provider Name and Address Organization Details Recorded Time 04/06/20 24 excision of melanoma completed EM BAUER MA [facility] 04/12/2024 14:49:16 06/27/20 22 endoscopic calcaneoplasty for Ora deformity completed EM BAUER MA [facility] 08/20/2023 13:51:40 12/29/19 20 mohs surgery completed EM BAUER MA [facility] 08/20/2023 14:03:48 02/23/20 18 Coronary artery bypass/reop completed EM BAUER MA [facility] 08/20/2023 13:52:47 10/02/19 17 cataract surgery completed EM BAUER MA [facility] 08/20/2023 14:02:07 09/17/19 17 Cataract Surgery completed EM BAUER MA [facility] 08/20/2023 14:02:47 11/16/19 13 total knee replacement completed EM BAUER MA [facility] 08/20/2023 13:45:27 03/15/20 12 total knee replacement completed EM BAUER MA [facility] 08/20/2023 13:44:56 open reduction of fracture of tibia and fibula completed EM BAUER MA [facility] 08/20/2023 13:47:29 procedure on elbow completed EM BAUER MA [facility] 08/20/2023 13:47:55 Appendectomy completed EM BAUER MA [facility] 08/20/2023 13:51:52 hysterectomy completed EM BAUER MA [facility] 08/20/2023 13:52:06 Imaging Results None recorded. Procedure Notes None recorded. Medical Equipment None Reported. Allergies Allergen ID Allergen Name Allergen Category Reaction Reaction Severity Criticality Documentation Date Start Date Code Code System Note Provider Name and Address Organization Details Recorded Time 19051 morphine medicatio n hallucina tions Not available Not available 08/20/2023 7052 [facility]Norm [facility] 12:21:43 Medications Name Sig Start [...] e 50 mcg/actua tion nasal spray,stephan pension [place] 1 spray every day by intranas al [...] Updated DateTime 4 144.14 cm 36.7 kg/m2 73884.5 2 g 97.8 [degF] 99 % 99 % 71 /min 138 mm[Hg] 76 mm[Hg] PERI DELEON LPN [facility] 4 13:48:48 Social History Question Answer Notes LastModified by Organizat ion Details LastModified Time Tobacco Smoking Status Former Smoker 18 when she quit smoking JODI CUENCA, [facility] 08/18/2023 10:42:09 Do You Have An Advance Directive? No Paperwork Given Information not available 12/09/2023 When Did You Quit Smoking? 16+yearssince lastcigarette [email or web address] Information not available 08/18/2023 Date Of Most Recent HSA 12/09/2023 Information not available 12/09/2023 Would You Say That, In General, Your Health Is Fair [email or web address] Information not available 08/18/2023 How Often Does Anyone, Including Family, Physically Hurt You? Never [email or web address] Information not available 08/18/2023 How Often Does Anyone, Including Family, Insult Or Talk Down To You? Never [email or web address] Information not available 08/18/2023 How Often Does Anyone, Including Family, Threaten You With Harm? Never [email or web address] Information not available 08/18/2023 How Often Does Anyone, Including Family, Scream Or Curse At You? Never [email or web address] Information not available 08/18/2023 Within The Past 12 Months, You Worried That Your Food Would Run Out Before You Got Money To Buy More. Sometimes True Information not available 12/09/2023 Within The Past 12 Months, The Food You Bought Just Didn't Last And You Didn't Have Money To Get More. Never True [email or web address] Information not available 08/18/2023 How Hard Is [...] Different Reasons Than Its Intended Purpose? Never [email or web address] Information not available 08/18/2023 How Often In The Past Year Have You Used Other Drugs (for Example, Heroin, Cocaine, Meth, Salvia, Inhalants)? Never [email or web address] Information not available 08/18/2023 What Matters Most To You? to Be Safe And Healthy, See And Walk Information not available 12/09/2023 During The Past Four Weeks, Was Someone Available To Help You If You Needed And Wanted Help? (For Example, If You [place] Very Nervous, Lonely, Or Blue; Got Sick [...] Do You Have A Medical Power Of Card Grinder? No Information not available 12/09/2023 What Was The Date Of Your Most Recent Tobacco Screening? 07/25/2024 [email or web address] Information not available 07/25/2024 At What Age Did You Start Smoking Tobacco? 16 [email or web address] Information not available 08/18/2023 Has Tobacco Cessation [...] Organization Details LastModified Time Mother Diastolic dysfunction [email or web address] Not available 07/28 13:53:44 Mother Congestive heart failure 68 [email or web address] Not available 2023 13:55:35 Brother Myocardial infarction [email or web address] Not available 08/20 13:54:51 Brother Family history of malignant neoplasm [email or web address] Not available 2023 14:47:47 Sister Family history of malignant neoplasm Not available 2023 14:47:47 Medical History No medical history recorded. Gynecological HistoryNo gynecological history recorded. Obstetrics History GPAL:G 0 P 0 0 0 0 Immunizations Vaccine Type Date Status Note Provider Nam e and Address Organization Details Recorded Time Td (adult), 2 Lf tetanus toxoid, preservative free, adsorbed 01/23/202 4 completed SACHIN JAMES, JACQUELIN [address], [place], [address], [facility] 08/18/2023 22:14:59 Influenza, high-dose, trivalent, PF 4 completed SACHIN RAMIREZ, UNIVERSAL GRINDER SET UP OPERATOR [address], [place], [address], [facility] 04/12/2024 21:01:41 SARS-COV-2 (COVID-19) vaccine, UNSPECIFIED 3 completed JODI CUENCA, [facility] 08/20/2023 12:15:28 SARS-COV-2 (COVID-19) vaccine, UNSPECIFIED 1 completed JODI CUENCA, [facility] 08/20/2023 12:15:34 SARS-COV-2 (COVID-19) vaccine, UNSPECIFIED 1 completed JODI CUENCA, [facility] 08/20/2023 12:15:49 SARS-COV-2 (COVID-19) vaccine, UNSPECIFIED 1 completed JODI CUENCA, [facility] 08/20/2023 12:15:55 SARS-COV-2 (COVID-19) vaccine, UNSPECIFIED 2 completed JODI CUENCA, [facility] 08/20/2023 12:16:04 Pneumococcal conjugate PCV 13 5 completed JODI CUENCA, [facility] 08/20/2023 12:16:40 influenza, unspecified formulation 0 completed JODI CUENCA, [facility] 08/20/2023 12:17:06 influenza, unspecified formulation 1 completed JODI CUENCA, [facility] 08/20/2023 12:17:14 influenza, unspecified formulation 2 completed JODI CUENCA, [facility] 08/20/2023 12:17:20 influenza, unspecified formulation 3 completed JODI CUENCA, [facility] 08/20/2023 12:17:30 pneumococcal polysaccharide PPV23 2 completed JODI CUENCA, [facility] 08/20/2023 12:18:00 pneumococcal polysaccharide PPV23 9 completed JODI CUENCA, [facility] 08/20/2023 12:18:09 Tdap 2 completed JODI CUENCA, [facility] 08/20/2023 12:18:41 zoster, unspecified formulation 9 completed JODI CUENCA, [facility] 08/20/2023 12:18:59 zoster, unspecified formulation 9 completed JODI CUENCA, [facility] 08/20/2023 12:19:04 zoster, unspecified formulation 2 completed JODI CUENCA, [facility] 08/20/2023 12:19:11 Past Encounters Encounter ID Performer Location Encounter Start Date Encounter Closed Date Diagnosis/Indication Diagnosis SNOMED-CT Code Diagnosis ICD10 Code Diagnosis Note [id number] ROGER ARGUETA PA-C [address] [address] 05/13/2024 10:54:11 05/13/2024 13:50:24 Infection of skin 574352090 L08.9 Patient has developed infection of the [...] should have reevaluati on. Patient voiced under. [id number] JACQUELIN QUISPE [facility] [address] [place] [address] 05/25/2024 13:28:48 05/25/2024 14:28:28 Pain of right shoulder joint 8670372358 9305556 M25.511 Shoulder pain, right, history of torn rotator cuffs as per pt self report- Referral to [facility] for evaluation and possible cortisone injection- Imaging (x-ray) may be needed if not done recently Obstructiv e sleep apnea syndrome 04217222 G47.33 Sleep apnea and Inspire implant evaluation - Surgery scheduled for June 14 for sedation and airway study- Patient to confirm if pre-op clearance is needed from the primary care provider- Patient to provide more informatio n regarding anesthesia and pre-op requiremen ts Pain in face 91878664 R5 1.9 Intermitte nt pain on left [...] stage III kidney cancer and GFR 38. Health Concerns Section Related Observation LastModified by Organization Detai ls LastModified Time None Recorded Concern Status LastModified by Organization Details LastModified Time None Recorded Payers Encounter Date Sequence Insurance Name Policy Number Policy Kearns Covered Member ID Kearns Member ID Guarantor Name 05/25/2024 1 [id number]ANTAGE - PPO) [id number] Liya A Chago [id number] Liya Anders 05/25/2024 2 [place] [employer] Liya Anders [id number] Liya Anders Notes Date Note Type [...] effective for an extended period. SACHIN RAMIREZ, UNIVERSAL GRINDER SET UP OPERATOR [address], [place], [address], [facility]. 05/26/2024 12:04:41 OBGyn Episode No OBEpisode recorded.
--- OUTSIDE RECORDS SUMMARY | 2024-08-23 14:28 | XMS_ITS | Encounter Summary ---
Author Organization [facility] Address [address] [place] [address] Care Team Providers Care Jewel Bearing Polisher Name Role Phone Replaced By [facility] Primary Care Provider [phone] Reason for Referral * Consult (Routine/Next Available) - Authorization Not Required Specialty Diagnoses / Procedures Referred By Ana t Referred To Contact Dermatology Diagnoses Basal cell carcinoma of right forehead Procedures NV ADJT TIS TRNS/REARGMT F/C/C/M/N/A/G/H/F 10SQCM/< NV ADJT/REARGMT F/C/C/M/N/AX/G/H/F 10.1-30.0 SQ CM NV ADJNT TIS TRNSFR/REARGMT ANY AREA 30.1-60 SQ CM NV SPLIT AGRFT F/S/N/H/F/G/M/D GT 1ST 100 CM/</1 % NV SPLIT AGRFT F/S/N/H/F/G/M/D GT EA 100 CM/EA 1 % NV FTH/GF FR W/DIR CLSR F/C/C/M/N/AX/G/H/F 20SQCM/< NV FTH/GT FR W/DIR CLSR F/C/C/M/N/AX/G/H/F EA ADDL NV FRMJ DIR/TUBE PEDCL W/WOTR FH/CH/CH/M/N/AX/G/H/F NV DELAY FLAP/SECTIONING FLAP F/C/C/N/AX/G/H/F NV FOREHEAD FLAP W/PRESERVATION VASCULAR PEDICLE NV GRAFT COMPOSITE W/PRIMARY CLOSURE DONOR AREA NV MOHS MICROGRAPHIC H/N/H/F/G 1ST STAGE 5 BLOCKS [facility] 5th [place] [address] Phone: tel: fax: Jonelle Rain MD Phone: tel: fax: Referral ID Status Reason Start Date Expiration Date Visits Requested Visits Authorized [id number] Authorization Not Required Specialty Services Required 4 [...] st Contact Info) Description 03/07/2024 Orders Only [facility] Dermatology [address] [facility] [facility], [place] [address] Darren Stubbs RN Basal cell carcinoma of [...] Gregorio Lockwood RN documented in this encounter Progress Notes [...] morphine. Immunosuppression: None Mohs referral sent to [facility] Dermatology (WP5) documented in this encounter Plan of Treatment Upcoming Encounters Date Type Department Care Team (Late st Contact Info) Description 03/08/2025 11:00 EDT Office Visit [facility] Dermatology [address] [facility] [facility], [place] [address] Cynthia Salinas MD [address] [place] [phone] 07/27/2025 Hospital Encounter [facility] [place] [address] [place], [place] [address] Vicki Main MD [address] [facility], [address] [place] [address] Scheduled Procedures Name Priority Associated Diagnoses Date/Ti [...] face documented in this encounter Care Teams Jewel Bearing Polisher Relationship Specialty Start Date End Date Replaced By [facility] [address] [place] [address] PCP - General 10/30/23 documented as of this encounter
--- OUTSIDE RECORDS SUMMARY | 2024-08-23 14:28 | XMS_ITS | Encounter Summary ---
Author Organization [facility] Address [address] [place] [address] Care Team Providers Care Ambulette Driver Name Role Phone Kit Burch MD Primary Care Provider [facility] Primary Care Provider [phone] Encounter Details Date Type Department Care Team (Late st Contact Info) Description 03/06/2022 Lab Requisition [facility] Pathology & Laboratory Medicine - [address] [id number] Outr Resulting Lab, Provider Social History Tobacco [...] Info) Description 03/08/2025 11:00 EDT Office Visit [facility] Dermatology [address] [place] [address], [place] [address] Cynthia Salinas MD [address] [place] [address] [place] [phone] 07/27/[address] [facility] [place] [address] [place] [address] Vicki Main MD [address] [facility], [facility], [address] [place] [address] Scheduled Procedures Name Priority Associated [...] 55.0(L) 55.8 - 66.1 % 03/07/2022 13:09 [facility] Albumin g/dL 4.1 3.6 - 5.2 g/dL 03/07/2022 13:09 [facility] Alpha-1 % 3.8 2.9 - 4.9 % 03/07/2022 13:09 [facility] Alpha-1 g/dL 0.30 0.15 - 0.40 g/dL 03/07/2022 13:09 [facility] Alpha-2 % 11.5 7.1 - 11.8 % 03/07/2022 13:09 [facility] Alpha-2 g/dL 0.90 0.50 - 1.00 g/dL 03/07/2022 13:09 [facility] Beta % 12.1 8.4 - 13.1 % 03/07/2022 13:09 [facility] Beta g/dL 0.90 0.60 - 1.20 g/dL 03/07/2022 13:09 [facility] Gamma % 17.6 11.1 - 18.8 % 03/07/2022 13:09 [facility] Gamma g/dL 1.30 0.60 - 1.60 g/dL 03/07/2022 13:09 [facility] SPEP Comment No apparent monoclonal protein seen on serum electrophoresis 03/07/2022 13:09 [facility] Comment:See scanned/suppleme ntary report. Immunotyping , Serum Current Interpretation: Negative for monoclonal immunoglobulins. Reviewed by: Jed Duong MD 03/07/2022 1055 03/07/2022 13:09 [facility] Total Protein 7.4 6.3 - 8.2 g/dL 03/07/2022 13:09 [facility] Blood VENOUS BLOOD / Unknown 03/06/2022 11:27 EDT 03/06/2022 21:26 EDT us Provider Outr Resulting Lab CHEMISTRY & BLOOD GA S ORDERABLES Final Result Performing Organization Address [facility] Co de Phone Number [facility] [address] [place] [address] * PROTEIN, TOTAL (03/06/2022 11:27 EDT) Blood VENOUS BLOOD / Unknown 03/06/2022 11:27 EDT 03/06/2022 21:26 EDT us Provider Outr Resulting Lab CHEMISTRY & BLOOD GA S ORDERABLES Final Result Performing Organization Address [facility] Co de Phone Number [facility] [address] [place] [address] documented in this encounter Visit Diagnoses Not on filedocumented in this encounter Care Teams Ambulette Driver Relationship Specialty Start Date End Date Kit Burch MD [address] [place] [address] [address] [place] [phone] PCP - General 01/15/18 10/29/23 [facility] [address] [place] [address] PCP - General 10/30/23 documented as of this encounter
--- OUTSIDE RECORDS SUMMARY | 2024-08-23 14:28 | XMS_ITS | Encounter Summary ---
Author Organization [facility] Address [address] [place] [address] Care Team Providers Care Corporate Health Consultant Name Role Phone Kit Burch MD Primary Care Provider [phone] Encounter Details Date Type Department Care Team (Late st Contact Info) Description 04/14/[address] [facility] Cardiology - [address] [address] Milagro Lozano RN [address] [place], [place] [phone] Social History Tobacco Use Types Packs/Day Years [...] Info) Description 03/08/2025 11:00 EDT Office Visit [facility] Dermatology [address], [place] [address] Cynthia Salinas MD [address] [place] [address] [place] [phone] 07/27/2025 Hospital Encounter [facility] OR [address] [place], [place] [phone] Vicki Main MD 111 [facility], Level 4 [place] [phone] Scheduled Procedures Name Priority Associated Diagnoses Date/Ti me INSERTION, CRANIAL NERVE STIMULATOR CINTHIA (obstructive sleep apnea) documented as of this encounter Procedures Procedure Name Priority Date/Time Associated Diagnosis Comments BASIC METABOLIC PANEL (BMP) Routine 04/14/2018 11:59 EDT documented in this encounter Results * BASIC METABOLIC PANEL (BMP) (04/14/2018 11:59 EDT) Sodium 142 136 - 145 mEq/L 04/14/2018 16:34 EDT [facility] Potassium 4.1 3.5 - 5.0 mEq/L 04/14/2018 16:34 EDT [facility] Chloride 103 96 - 110 mEq/L 04/14/2018 16:34 [facility] CO2 31 22 - 32 mEq/L 04/14/2018 16:34 [facility] BUN 20 10 - 26 mg/dl 04/14/2018 16:34 [facility] Creatinine 0.71 0.52 - 1.04 mg/dl 04/14/2018 16:34 [facility] GFR, Calculated 86 >60 ml/min/1.7 3m2 04/14/2018 16:34 [facility] Comment: eGFR calculated using CKD-EPI equation for non Americans. Multiply eGFR by 1.16 for Americans. Calcium 9.5 8.5 - 10.5 mg/dl 04/14/2018 16:34 [facility] Calculated Calcium 9.5 8.5 - 10.5 mg/dl 04/14/2018 16:34 [facility] Glucose, Serum 95 70 - 100 mg/dl 04/14/2018 16:34 [facility] Fasting? Unknown 04/14/2018 16:00 [facility] BLOOD SPECIMEN / Unknown 04/14/2018 11:59 EDT 04/14/2018 16:00 EDT Milagro Lozano RN CHEMISTRY & BLOOD GAS ORDERABL ES Final Result [facility] [address] [place] [address] documented in this encounter Visit Diagnoses Not on filedocumented in this encounter Care Teams Corporate Health Consultant Relationship Specialty Start Date End Date Kit Burch MD [facility] [employer] [address] [place] [address] PCP - General 01/15/18 10/29/23 documented as of this encounter
--- OUTSIDE RECORDS SUMMARY | 2024-08-23 14:28 | XMS_ITS | Encounter Summary ---
Author Organization [facility] Address [address] [place] [address] Care Team Providers Care Die Casting Supervisor Name Role Phone [facility] Primary Care Provider [phone] Reason for Visit * Reason Comments Surgical Excision M1 BCC R lateral for ehead * Consult (Routine/Next Available) - Authorization Not Required Specialty Diagnoses / Procedures Referred By Contac t Referred To Contact Dermatology Diagnoses Basal cell carcinoma of right forehead Procedures CO ADJT TIS TRNS/REARGMT F/C/C/M/N/A/G/H/F 10SQCM/< CO ADJT/REARGMT F/C/C/M/N/AX/G/H/F 10.1-30.0 SQ CM CO ADJNT TIS TRNSFR/REARGMT ANY AREA 30.1-60 SQ CM CO SPLIT AGRFT F/S/N/H/F/G/M/D GT 1ST 100 CM/</1 % CO SPLIT AGRFT F/S/N/H/F/G/M/D GT EA 100 CM/EA 1 % CO FTH/GF FR W/DIR CLSR F/C/C/M/N/AX/G/H/F 20SQCM/< CO FTH/GT FR W/DIR CLSR F/C/C/M/N/AX/G/H/F EA ADDL CO FRMJ DIR/TUBE PEDCL W/WOTR FH/CH/CH/M/N/AX/G/H/F CO DELAY FLAP/SECTIONING FLAP F/C/C/N/AX/G/H/F CO FOREHEAD FLAP W/PRESERVATION VASCULAR PEDICLE CO GRAFT COMPOSITE W/PRIMARY CLOSURE DONOR AREA CO MOHS MICROGRAPHIC H/N/H/F/G 1ST STAGE 5 BLOCKS [facility] Dermatology [address] [address] Phone: tel: fax: Jonelle Rain MD Phone: tel: fax: Referral ID Status Reason Start Date Expiration Date Visits Requested Visits Authorized [id number] Authorization Not Required Specialty Services Required 4 1 1 Encounter Details Date Type Department Care Team (Late st Contact Info) Description 04/06/2024 13:00 EDT Office Visit [facility] Dermatology [address] [phone] Jonelle Rain MD [address] [place] [phone] Basal cell carcinoma (BCC) of right forehead [...] site rapidly swells. Please call our office [phone] or if you have any questions or [...] 2024 Surgeon and Pathologist: Jonelle Rain MD Account Development Specialist: Karin Lomas MD Case #: [id number] Mohs [...] handed personally by the doctor to the geology technician for frozen sectioning. The tissue was [...] INFORMATION: Liya Anders SURGEON: Jonelle Rain MD CHAIRMAN: Karin Lomas MD PREOPERATIVE DIAGNOSIS: Defect following [...] the entire procedure. Jonelle Rain MD Dermatology [facility] documented in this encounter Plan of Treatment Upcoming Encounters Date Type Department Care Team (Late st Contact Info) Description 03/08/2025 11:00 EDT Office Visit [facility] Dermatology [address] [facility], [address] [place], [place] [address] Cynthia Salinas MD 350 [facility] [address] [place] [phone] 07/27/2025 Hospital Encounter [facility] OR [address] [place], [place] [phone] Vicki Main MD 111 [facility], [facility], [address] [place] [address] Scheduled Procedures Name Priority Associated Diagnoses Date/Ti me INSERTION, CRANIAL NERVE STIMULATOR CINTHIA (obstructive sleep apnea) documented as of this encounter Procedures Procedure Name Priority Date/Time Associated Diagnosis Comments PROCEDURE REPORTS - SCANNED 04/08/2024 8:24 EDT documented in this encounter Results * PROCEDURE REPORTS - SCANNED (04/08/2024 8:24 EDT) 04/08/2024 8:24 EDT us Scan 2 Enrichment Specialist PROCEDURE/MINOR SURGICAL OR DERABLES Final Result documented in this encounter Visit Diagnoses Diagnosis Basal cell carcinoma (BCC) of right forehead- Primary documented in this encounter Care Teams Die Casting Supervisor Relationship Specialty Start Date End Date [facility] [address] [place] [address] PCP - General 10/30/23 documented as of this encounter
--- OUTSIDE RECORDS SUMMARY | 2024-08-23 14:28 | XMS_ITS | Encounter Summary ---
Author Organization [facility] Address [address] [place] [address] Care Team Providers Care Tax Lawyer Name Role Phone [facility] Primary Care Provider [phone] Reason for Visit * Auth/Cert (Routine) Specialty Diagnoses / Procedures Referred By Contac t Referred To Contact Diagnoses CINTHIA (obstructive sleep apnea) Procedures NC DISE DYN EVAL SLEEP DISORDERED BREATHING FLX DX DRUG-INDUCED SLEEP ENDOSCOPY Referral ID Status Reason Start Date Expiration Date Visits Re quested Visits Authorized [id number] 1 1 Encounter Details Date Type Department Care Team (Late st Contact Info) Description 06/14/2024 7:37 EST Anesthesia Event [facility] OR [address] [place], [place] [address] Jak Ragland MD 111 [facility], [facility] 2 [place] [address] Jorge Bennett DO [address] [place], [place] [address] Anesthesia Record Procedure Summary Procedure Name Responsible [...] Notes * Anesthesia Postprocedure Evaluation - Jorge Benentt DO - 06/14/2024 0800 EST Patient: Liya [...] loss Noted 06/07/2024: bilateral hearing aids, still ATKA History of general anesthesia Noted 06/07/2024: Hyperlipidemia [...] aortic valve stenosis 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) CINTHIA (obstructive [...] Office Visit [facility] Dermatology [address] [place] [address], [place] [address] Cynthia Salinas MD [address] [place] [address] 07/27/2025 Hospital Encounter [facility] OR [address] [place], [place] [phone] Vicki Main MD 111 [facility], [facility], Level [address] [place] [address] Scheduled Procedures Name Priority Associated [...] mL/hr documented in this encounter Care Teams Tax Lawyer Relationship Specialty Start Date End Date [facility] 4 [facility] [place] [address] PCP - General 10/30/23 documented as of this encounter
--- OUTSIDE RECORDS SUMMARY | 2024-08-23 14:28 | XMS_ITS | Encounter Summary ---
Author Organization [facility] Address [address] [place] [address] Care Team Providers Care Correctional Counselor/Case Manager Name Role Phone [place] [facility] Primary Care Provider [phone] Reason for Visit * Reason Comments New Patient Visit Pt is here for a NPV for CINTHIA and inspire consult * Consult (Urgent) - Receiving Office to Obtain Authorization Specialty Diagnoses / Procedures Referred By Ana caro Referred To Contact Otolaryngology Diagnoses Obstructive sleep apnea (adult) (pediatric) Catherine Reyes, [place] [place] [address] Phone: tel: fax: Vicki Main MD [address] [place] [address] Phone: tel: fax: Referral ID Status Reason Start Date Expiration Date Visits Requested Visits Authorized [id number] Receiving Office to Obtain Authorization 1 1 Encounter Details Date Type Department Care Team (Late st Contact Info) Description 05/16/2024 15:30 EDT Office Visit [facility] ENT- [address] [address] Vicki Main MD [address] [place] [address] CINTHIA (obstructive sleep apnea) (Primary Dx) [...] THE COMPLETE PATIENT MANUAL PRIOR TO IMPLANTATION. [email or web address]://www.accessdata.fda.gov/cdr_docs/pdf13/[email or web address].pdf RISKS OF SURGERY: Risks of surgery include [...] after surgery. For 2 weeks: Do not poultry picker anything greater than 5 pounds with [...] aortic valve stenosis Coronary artery disease involving [place] heart with angina pectoris ([facility]) Past Medical History: Past Medical History: Diagnosis Date Aortic stenosis Depression Endometrial cancer ([facility]) Hyperlipidemia Hypertension Hypothyroid CINTHIA (obstructive sleep apnea) [...] VOICE: Appropriate voice for age , normal quality control engineering technician and Face: INSPECTION: Normal without apparent scars, [...] Info) Description 03/08/2025 11:00 EDT Office Visit [facility] Dermatology [address] [facility], Building [place], [place] [address] Cynthia Salinas MD 350 [facility] [address] [place] [phone] 07/27/2025 Hospital Encounter [facility] OR [address] [place] [address] Vicki Main MD 111 [facility], [address] [place] [address] Scheduled Procedures Name Priority Associated Diagnoses Date/Ti [...] 05/16/2024 documented in this encounter Care Teams Correctional Counselor/Case Manager Relationship Specialty Start Date End Date [facility] [address] [place] [address] PCP - General 10/30/23 documented as of this encounter
--- OUTSIDE RECORDS SUMMARY | 2024-08-23 14:28 | XMS_ITS | Encounter Summary ---
Author Organization [facility] Address [address] [place] [address] Care Team Providers Care Insert Molding Operator Name Role Phone Kit Burch MD Primary Care Provider [phone] Reason for Visit * Reason Onset Date Comments Referral Request 08/31/2019 Encounter Details Date Type Department Care Team (Late st Contact Info) Description 08/31/2019 Telephone [facility] Dermatology 3rd Floor [facility] [address] [place], [place] [phone] Enzo Ervin MD [address] [place] [address] [place] [phone] Referral Request Social History Tobacco Use Types [...] of Assessment Author No 02/25/2018 11:00 Gregorio Lockwood, STACIE * Do you have serious difficulty walking or climbing stairs? (5 years old or older) Answer Date of Assessment Author No 02/25/2018 11:00 EDGregorio Mueller RN * Do you have difficulty dressing [...] Answer Entry Date Author No 04/14/2018 10:58 EDGregorio Mueller RN documented in this encounter Miscellaneous Notes * Telephone Encounter - Cathy Cat - 10/19/2019 1158 EDT Patient is rescheduled to see Dr. Gagan Neff on 12/29/19 at 9:15 am. * Telephone Encounter - Romy Dacosta MA - 10/19/2019 1029 EDT Patient calling in stating that she is currently quarantined due to the fact that she flew back from [place]. She wants to cancel her appointment [...] 03/08/2025 11:00 EDT Office Visit [facility] Dermatology [address] [facility], [place] [address] Cynthia Salinas MD 350 [facility] [address] [place] [address] 07/27/2025 Hospital Encounter [facility] OR [address] [place], [place] [phone] Vicki Main MD 111 [facility], [facility], [address] [place] [phone] Scheduled Procedures Name Priority Associated Diagnoses Date/Ti me INSERTION, CRANIAL NERVE STIMULATOR CINTHIA (obstructive sleep apnea) documented as of this encounter Visit Diagnoses Not on filedocumented in this encounter Care Teams Insert Molding Operator Relationship Specialty Start Date End Date Kit Burch MD [address] [facility] [address] [place] [phone] PCP - General 01/15/18 10/29/23 documented as of this encounter
--- OUTSIDE RECORDS SUMMARY | 2024-08-23 14:28 | XMS_ITS | Encounter Summary ---
Author Organization [facility] Address [address] [place] [address] Care Team Providers Care Burning Plant Operator Name Role Phone [place] [facility] Primary Care Provider [phone] Reason for Visit * Reason Comments New Patient Visit Skin lesion, recheck spot on nose, few spots on face, spots on arms. Encounter Details Date Type Department Care Team (Late st Contact Info) Description 03/02/2024 13:40 EDT Office Visit [facility] Dermatology [address] [facility], [place], [place] [phone] Cynthia Salinas MD [address] [place] [address] [place] [phone] History of basal cell carcinoma (Primary Dx); [...] discomfort. Tylenol, taken as directed by the soaker helper, will help relieve pain. If Tylenol does [...] choose to look at your results in [facility] prior to our office contacting you, that is your right and choice. Our office policy is to have your provider or the provider???s assistant signal maintainer contact you with your results and any [...] not call the office or send a [employer] message asking to discuss them. Providers are seeing patients during the day and cannot answer calls during clinic time or off hours/weekends. Unless it is an emergency, the manager environmental services provider will not review biopsy and/ or lab results. Thank you for entrusting us with your care. [facility]- Dermatology WOUND CARE INSTRUCTIONS FOR CRYOSURGERY (FREEZING [...] arms. Has a spot on the right religious and some on the left religious/forehead. OBJECTIVE: Cutaneous full body examination excluding genitalia [...] NOTE PATIENT: Liya Anders : MRN: [id number] SURGEON: Cynthia Salinas MD Informed consent was [...] and is in agreement with [facility] at [facility]. See order encounter for referral. documented in this encounter Plan of Treatment Upcoming Encounters Date Type Department Care Team (Late st Contact Info) Description 03/08/2025 11:00 EDT Office Visit [facility] [address] [facility], [place], [place] [address] Cynthia Salinas MD [address] [place] [phone] 07/27/2025 Hospital Encounter [facility] OR [address] [place], [place] [phone] Vicki Main MD 111 [facility], [facility], Level 4 [place] [address] Scheduled Procedures Name Priority Associated [...] explore management options, if applicable. 03/04/2024 9:16 [facility] Final Diagnosis A. SKIN OF FOREHEAD, RIGHT LATERAL, SHAVE BIOPSY: - Basal cell carcinoma, nodular type. - Basal cell carcinoma present at deep tissue edge. 03/04/2024 9:16 [facility] Attestation By the signature below, the attending physician certifies that they have 1) personally conducted a gross and/or microscopic examination of the described specimen(s), and/or personally interpreted the results of laboratory testing of the described specimen(s), and 2) personally rendered or confirmed the above diagnosis. 03/04/2024 9:16 [facility] at 0916 Microscopic Description Irregularly [...] the islands and stroma. 03/04/2024 9:16 EDT [facility] Clinical History [place] telangiectatic and hemorrhagic crusted low plaque; suspect BCC; clinical diagnosis code: D48.5 03/04/2024 9:16 EDT [facility] Gross Description A. [...] Jen Mayo 03/03/2024 11:04 03/04/2024 9:16 EDT [facility] Performing Lab [facility] 03/04/2024 9:16 EDT [facility] Scanned Images 03/04/2024 9:16 EDT [facility] Tissue SPECIMEN FROM SKIN / Unknown Collection, Other / Unknown 03/02/2024 13:58 EDT 03/02/2024 13:58 EDT us Cynthia Salinas MD PATHOLOGY ORDERABLES Mely carmona Result [facility] [address] [place] [address] documented in this encounter Visit Diagnoses Diagnosis History of basal cell carcinoma- Primary Personal history of other malignant neoplasm of skin Scar Scar condition and fibrosis of skin Solar purpura (HCC-CMS) Other nonthrombocytopenic purpuras Neoplasm of uncertain behavior of skin Intertrigo Other specified erythematous condition Actinic keratosis Multiple nevi Benign neoplasm of skin, site unspecified documented in this encounter Care Teams Burning Plant Operator Relationship Specialty Start Date End Date [facility] [address] [place] [address] PCP - General 10/30/23 documented as of this encounter
--- OUTSIDE RECORDS SUMMARY | 2024-08-23 14:28 | XMS_ITS | Encounter Summary ---
Author Organization [facility] Address [address] [place] [address] Care Team Providers Care Stamp Redemption Clerk Name Role Phone [facility] [facility] Primary Care Provider [phone] Reason for Visit * Reason Onset Date Comments Discuss Surgery 06/13/2024 Encounter Details Date Type Department Care Team (Late st Contact Info) Description 06/13/2024 Telephone [facility]- [address] [phone] Vicki Main MD [address] [place] [address], [address] [place] [address] Discuss Surgery Social History Tobacco [...] Info) Description 03/08/2025 11:00 EDT Office Visit [facility] Dermatology [address], [place] [address] Cynthia Salinas MD [address] [place] [address] 07/27/2025 Hospital Encounter [facility] OR [address] [place] [address] Vicki Main MD 111 [facility], [facility], [address] [place] [address] Scheduled Procedures Name Priority Associated Diagnoses Date/Ti me INSERTION, CRANIAL NERVE STIMULATOR CINTHIA (obstructive sleep apnea) documented as of this encounter Visit Diagnoses Not on filedocumented in this encounter Care Teams Stamp Redemption Clerk Relationship Specialty Start Date End Date [facility] [address] [place] [address] PCP - General 10/30/23 documented as of this encounter
--- OUTSIDE RECORDS SUMMARY | 2024-08-23 14:28 | XMS_ITS | Encounter Summary ---
Author Organization [facility] Address [address] [place] [address] Care Team Providers Care Piano And Organ Refinisher Name Role Phone [place] [facility] Primary Care Provider [phone] Encounter Details Date Type Department Care Team (Late st Contact Info) Description 06/07/2024 15:20 EST - 06/07/2024 16:37 EST Hospital Encounter [facility] Pre-Surgical Testing [address] [place], [place] [phone] Social History Tobacco Use Types Packs/Day Years [...] supplement UNABLE TO FIND daily. Med Name: [email or web address] Zinc Acetate, Oral, 50 mg (zinc) capsule Take by mouth daily. documented as of this encounter Plan of Treatment Upcoming Encounters Date Type Department Care Team (Late st Contact Info) Description 03/08/2025 11:00 EDT Office Visit [facility] Derm[facility]ology [address], [address] [place], [place] [address] Cynthia Salinas MD [address] [place] [address] 07/27/2025 Hospital Encounter [facility] OR [address] [place], [place] [phone] Vicki Main MD 111 [facility], [facility], Level [address] [place] [address] Scheduled Procedures Name Priority Associated [...] daily. added in this encounter Care Teams Piano And Organ Refinisher Relationship Specialty Start Date End Date [place], [facility] [address] [place] [address] PCP - General 10/30/23 documented as of this encounter
--- OUTSIDE RECORDS SUMMARY | 2024-08-23 14:28 | XMS_ITS | Encounter Summary ---
Author Organization [facility] Address [address] [place] [address] Care Team Providers Care Coffee Sampler Name Role Phone Kit Burch MD Primary Care Provider [phone] Reason for Visit * Reason Onset Date Comments Results 04/19/2018 Encounter Details Date Type Department Care Team (Late st Contact Info) Description 04/19/2018 Telephone [facility] Cardiology - [place] [address] Gilda Bowen RN Results Social [...] learning barriers. Patient did her f/u with tire trucker near her home * Telephone Encounter - [...] as scheduled. Thank you, Milagro Lozano DNP, MANAGER RETAIL STORE-C ? Associated Results ? BASIC METABOLIC PANEL (BMP) Status: Final result Visible to patient: No (Not Released) Order: [id number] ? Notes Recorded by Milagro Lozano NP [...] as scheduled. Thank you, Milagro Lozano DNP, MANAGER RETAIL STORE-C ?? Ref Range & Units 5d ago [...] 95 ?? Fasting? Unknown ?? Resulting Agency [facility] ? Specimen Collected: 04/14/18 11:59 ?? Last Resulted: 04/14/18 16:34 ?? documented in this encounter Plan of Treatment Upcoming Encounters Date Type Department Care Team (Late st Contact Info) Description 03/08/2025 11:00 EDT Office Visit [facility] Dermatology [address] [facility], [place], [place] [address] Cynthia Salinas MD [address] [place] [address] [place] [phone] 07/27/2025 Hospital Encounter [facility] OR [address] [place], [place] [address] Vicki Main MD 111 [facility], Level 4 [place] [phone] Scheduled Procedures Name Priority Associated Diagnoses Date/Ti me INSERTION, CRANIAL NERVE STIMULATOR CINTHIA (obstructive sleep apnea) documented as of this encounter Visit Diagnoses Not on filedocumented in this encounter Care Teams Coffee Sampler Relationship Specialty Start Date End Date Kit Burch MD [facility] [address] [place] [address] PCP - General 01/15/18 10/29/23 documented as of this encounter
--- OUTSIDE RECORDS SUMMARY | 2024-08-23 14:28 | XMS_ITS | Encounter Summary ---
Author Organization [facility] Address [address] [place] [address] Care Team Providers Care Life Cycle Assessment Analyst Name Role Phone Kit Burch MD Primary Care Provider [facility] Primary Care Provider [phone] Encounter Details Date Type Department Care Team (Late st Contact Info) Description 03/06/2022 Lab Requisition [facility] Pathology & Laboratory Medicine - [address] [id number] Outr Resulting Lab, Provider Social History Tobacco [...] 03/08/2025 11:00 EDT Office Visit [facility] Dermatology [address] [place] [address], [place] [address] Cynthia Salinas MD [address] [place] [address] [place] [phone] 07/27/2025 Hospital Encounter [facility] OR [address] [place] [address] Vciki Main MD 111 [facility], Level 4 [place] [address] Scheduled Procedures Name Priority Associated Diagnoses Date/Ti me INSERTION, CRANIAL NERVE STIMULATOR CINTHIA (obstructive sleep apnea) documented as of this encounter Procedures Procedure Name Priority Date/Time Associated Diagnosis Comments VITAMIN B12 Routine 03/06/2022 11:27 EDT documented in this encounter Results * (ABNORMAL) VITAMIN B12 (03/06/2022 11:27 EDT) Vitamin B12 1,790(H) 211 - 911 pg/mL 03/06/2022 23:06 EDT [facility] Blood VENOUS BLOOD / Unknown 03/06/2022 11:27 EDT 03/06/2022 21:26 EDT us Provider Outr Resulting Lab CHEMISTRY & BLOOD GA S ORDERABLES Final Result [facility] [address] [place] [address] documented in this encounter Visit Diagnoses Not on filedocumented in this encounter Care Teams Life Cycle Assessment Analyst Relationship Specialty Start Date End Date Kit Burch MD [facility] [employer] [address] [place] [phone] PCP - General 01/15/18 10/29/23 [facility] [address] [place] [address] PCP - General 10/30/23 documented as of this encounter
--- OUTSIDE RECORDS SUMMARY | 2024-08-23 14:28 | XMS_ITS | Encounter Summary ---
Author Organization [facility] Address [address] [place] [address] Care Team Providers Care Hospital Pharmacist Name Role Phone [facility] Primary Care Provider [phone] Reason for Visit * Reason Onset Date Comments Surgery Cancellation 07/06/2024 Encounter Details Date Type Department Care Team (Late st Contact Info) Description 07/06/[address] [facility]- [address] [phone] Vicki Main MD [address] [place] [address], [address] [place] [phone] Surgery Cancellation Social History Tobacco Use Types [...] Info) Description 03/08/2025 11:00 EDT Office Visit [facility] Dermatology 130 [facility], [place], [place] [address] Cynthia Salinas MD 350 [facility] [address] [place] [phone] 07/27/2025 Hospital Encounter [facility] [place] [address] [place] [address] Vicki Main MD 111 [facility], Level [address] [place] [address] Scheduled Procedures Name Priority Associated Diagnoses Date/Ti me INSERTION, CRANIAL NERVE STIMULATOR CINTHIA (obstructive sleep apnea) documented as of this encounter Visit Diagnoses Not on filedocumented in this encounter Care Teams Hospital Pharmacist Relationship Specialty Start Date End Date [facility]- 4 [place] [address] PCP - General 10/30/23 documented as of this encounter
--- OUTSIDE RECORDS SUMMARY | 2024-08-23 14:28 | XMS_ITS | Encounter Summary ---
Author Organization [facility] Address [address] [place] [address] Care Team Providers Care Conductor Pullman Name Role Phone Kit Burch MD Primary Care Provider Reason for Visit * Reason Onset Date Comments Follow-up 05/17/2018 Follow-up 05/24/2018 2nd attempt Encounter Details Date Type Department Care Team (Late st Contact Info) Description 05/17/2018 Telephone [facility] Cardiology - [address] [place] [address] Gilda Bowen RN Follow-up; Follow-up [...] Dr. De Dios in 2 months at [facility], she will call them for an appointment. * Telephone Encounter - Gilda Bowen RN - 05/24/2018 1033 EDT Lm 2nd attempt [facility], * Telephone Encounter - Gilda Bowen RN - 05/17/2018 0956 EDT Called and left message to return call Liya Anders [[id number]] ??Female - 72 y.o. - 46 ?? [...] Dx: Coronary artery disease involving cor... Order: [id number] ? Order Details View Encounter Lab and Collection Details Routing Result History ?? documented in this encounter Plan of Treatment Upcoming Encounters Date Type Department Care Team (Late st Contact Info) Description 03/08/2025 11:00 EDT Office Visit [facility] Dermatology 130 [facility], [place] [address] Cynthia Salinas MD [address] [facility] [address] [place] [phone] 07/27/2025 Hospital Encounter [facility] OR [address] [place] [address] Vicki Main MD 111 [facility], Level [address] [place] [address] Scheduled Procedures Name Priority Associated Diagnoses Date/Ti me INSERTION, CRANIAL NERVE STIMULATOR CINTHIA (obstructive sleep apnea) documented as of this encounter Visit Diagnoses Not on filedocumented in this encounter Care Teams Conductor Pullman Relationship Specialty Start Date End Date Kit Burch MD [address] [facility] [address] [place] [phone] PCP - General 01/15/18 10/29/23 documented as of this encounter
--- OUTSIDE RECORDS SUMMARY | 2024-08-23 14:28 | XMS_ITS | Encounter Summary ---
Author Organization [facility] Address [address] [place] [address] Care Team Providers Care Director Of Employee Development Name Role Phone [facility] Primary Care Provider [phone] [phone] Reason for Visit * Reason Comments Post-OP Follow Up Post op surgeryNo co mplaints Encounter Details Date Type Department Care Team (Late st Contact Info) Description 06/20/2024 16:30 EST Post-op Visit [facility] ENT- [address] [address] Vicki Main MD 111 [facility], [address] 4 [place] [address] CINTHIA (obstructive sleep apnea) (Primary [...] THE COMPLETE PATIENT MANUAL PRIOR TO IMPLANTATION. https://www.accessdata.fda.gov/cdr_docs/pdf13/X533891c.pdf Risks of Inspire Surgery: Risks of surgery [...] after surgery. For 2 weeks: Do not order picker anything greater than 5 pounds with [...] aortic valve stenosis Coronary artery disease involving [place] heart with angina pectoris ([facility]) CINTHIA (obstructive sleep apnea) Past Medical History: Past Medical History: Diagnosis Date Activity, other involving cardiorespiratory exercise Noted 06/07/2024: swimming, shaker, walking, doesnt climb stairs Aortic stenosis Noted 06/07/2024: s/p surgery Aortic valve disease Noted 06/07/2024: s/p surgery Arthritis Noted 06/07/2024: generalized Bleeds easily ([facility]) Noted 06/07/2024: Bruises easily Noted 06/07/2024: Chest pain Noted 06/07/2024: not in a couple of weeks CHF (congestive heart failure) ([facility]) Noted 06/07/2024: tx w/ meds,ECHO 11/23/17 tobin: 1) mild LVH, 2) EF 65%, 3) mild AI, 4) moderate to severe with AVarea 1.0 cm2, mean gradient 35 mm Hg Claustrophobia Noted 06/07/2024: closed in spaces Cognitive deficits Noted 06/07/2024: meds, and time Constipation Noted 06/07/2024: tx w/ stool softner Depression Noted 06/07/2024: controlled at present time Endometrial cancer ([facility]) Noted 06/07/2024: GERD (gastroesophageal reflux disease) Noted 06/07/2024: controlled w/ meds, can lay flat but doesnt like too Hearing loss Noted 06/07/2024: bilateral hearing aids, still [place] History of general anesthesia Noted 06/07/2024: Hyperlipidemia [...] VOICE: Appropriate voice for age , normal manufacturing quality inspector and Face: INSPECTION: Normal without apparent scars, [...] Info) Description 03/08/2025 11:00 EDT Office Visit [facility] Dermatology [address] [place] [address], [place] [address] Cynthia Salinas MD 350 [facility] [address] [place] [phone] 07/27/2025 Hospital Encounter [facility] OR [address] [place] [address] Vicki Main MD 111 [facility], [address] [place] [address] Scheduled Procedures Name Priority Associated Diagnoses Date/Ti me INSERTION, CRANIAL NERVE STIMULATOR CINTHIA (obstructive sleep apnea) documented as of this encounter Visit Diagnoses Diagnosis CINTHIA (obstructive sleep apnea)- Primary Obstructive sleep apnea (adult) (pediatric) documented in this encounter Orders Case Request Count Last Ordered Date First Orde red Date CASE REQUEST OPERATING ROOM 1 06/20/2024 documented in this encounter Care Teams Director Of Employee Development Relationship Specialty Start Date End Date [facility] [address] [place] [address] PCP - General 10/30/23 documented as of this encounter
--- OUTSIDE RECORDS SUMMARY | 2024-08-23 14:28 | XMS_ITS | Encounter Summary ---
Author Organization [facility] Address [address] [place] [address] Care Team Providers Care Employment Instructional Associate Name Role Phone Kit Burch MD Primary Care Provider Reason for Visit * Reason Comments Basal Cell Carcinoma nose Encounter Details Date Type Department Care Team (Late st Contact Info) Description 12/29/2019 10:00 EDT Office Visit [facility] Dermatology 5th [facility] [address] [place], [place] [phone] Enzo Ervin MD [address] [place] [address] [place] [phone] Basal cell carcinoma (BCC) of skin of [...] discomfort. Tylenol, taken as directed by the furniture servicer, will help relieve pain. If Tylenol does [...] 11:31 Enzo Ervin MD Chief of Dermatology MOHS OPERATIVE REPORT Patient Name: Liya Anders Date of Service: December 29, 2019 Surgeon: Enzo Ervin MD I personally performed the procedure Enzo Ervin MD Chief of Dermatology Labor Standards Director: Abigail Davey PA-C Case #: [id number] Mohs [...] handed personally by the doctor to the registered dietetic technician for frozen sectioning. The tissue was [...] procedure Enzo Ervin MD Chief of Dermatology Labor Standards Director: Abigail Davey PA-C Preoperative Diagnosis: Defect following [...] 11:00 EDT Office Visit [facility] Dermatology [address] [facility], [place] [address] Cynthia Salinas MD 350 [facility] [address] [place] [phone] 07/27/2025 Hospital Encounter [facility] OR [address] [place], [place] [address] Vicki Main MD 111 [facility], Level [address] [place] [address] Scheduled Procedures Name Priority Associated Diagnoses Date/Ti me INSERTION, CRANIAL NERVE STIMULATOR CINTHIA (obstructive sleep apnea) documented as of this encounter Procedures Procedure Name Priority Date/Time Associated Diagnosis Comments PROCEDURE REPORTS - SCANNED 01/09/2020 12:48 EDT documented in this encounter Results * PROCEDURE REPORTS - SCANNED (01/09/2020 12:48 EDT) 01/09/2020 12:4 8 EDT us Scan 2 Home Health Assistant PROCEDURE/MINOR SURGICAL OR DERABLES Final Result documented in this encounter Visit Diagnoses Diagnosis Basal cell carcinoma (BCC) of skin of nose- Primary documented in this encounter Care Teams Employment Instructional Associate Relationship Specialty Start Date End Date Kit Burch MD [facility] [employer] [facility] [place] [phone] PCP - General 01/15/18 10/29/23 documented as of this encounter
--- OUTSIDE RECORDS SUMMARY | 2024-08-23 14:28 | XMS_ITS | Encounter Summary ---
Author Organization [facility] Address [address] [place] [address] Care Team Providers Care Jute Bag Sewer Name Role Phone [facility] Primary Care Provider [phone] Reason for Visit * Reason Comments Cough Nasal Congestion Chest Congestion Encounter Details Date Type Department Care Team (Late st Contact Info) Description 10/30/2023 13:45 EDT [facility] [address] [place] [phone] Rhonda Fields PA-C [address] [facility] [address] [place], [place] [address] URI with cough and congestion (Primary Dx) [...] saline rinses or lavage (example: Netipot, Neilmed, Kuna) -Air humidifier, steamy shower, warm compress to [...] congestion x a month. Just returned from [place]. Coughing up yellowish green mucous. Covid Screening: [...] RN or in discussion with available provider (SHIPPING CHECKER's and CCA's can defer to Charge Nurse to complete triage when appropriate) PCP: [facility] [place] * Rhonda Fields PA-C - 10/30/2023 1345 EDT [facility] Express Care Chief Complaint(s): Chief Complaint Patient [...] below. Patient is advised in use of Pulse.io to access any lab results or other [...] lower extremity swelling. Onset symptoms while in [place], just spent a 1 month vacation there. Thought initially might have been allergies or issue with air conditioning. Both she and her daughter have allergies. Pollen has been very bad in [place] other daughter that is with family states. [...] note may be in part documented using [employer] dictation software. Please forgive any errors, omissions or typos that may result from use of dictation. documented in this encounter Plan of Treatment Upcoming Encounters Date Type Department Care Team (Late st Contact Info) Description 03/08/2025 11:00 EDT Office Visit [facility] Dermatology 130 [facility], [place], [place] [address] Cynthia Salinas MD 350 [facility] [address] [place] [phone] 07/27/2025 Hospital Encounter [facility] OR [address] [place], [place] [phone] Vicki Main MD 111 [facility], [facility], Level 4 [place] [address] Scheduled Procedures Name Priority Associated [...] Hyperinflation suggestive of COPD. 3. Cardiac enlargement. [id number] Narrative 10/30/2023 15:45 EDT XR CHEST 2 [...] Hyperinflation suggestive of COPD. 3. Cardiac enlargement. [id number] Rhonda Fields PA-C IMG DIAGNOSTIC IMAGING O [...] 09/14/2023 added in this encounter Care Teams Jute Bag Sewer Relationship Specialty Start Date End Date [facility] 4 [facility] [place] [address] PCP - General 10/30/23 documented as of this encounter
--- OUTSIDE RECORDS SUMMARY | 2024-08-23 14:28 | XMS_ITS | Encounter Summary ---
Author Organization [facility] Address [address] [place] [address] Care Team Providers Care Nutrition Services Aide Name Role Phone [facility] Primary Care Provider [phone] Reason for Visit * Auth/Cert (Routine) Specialty Diagnoses / Procedures Referred By Ana t Referred To Contact Diagnoses CINTHIA (obstructive sleep apnea) Procedures [place] DISE DYN EVAL SLEEP DISORDERED BREATHING FLX DX DRUG-INDUCED SLEEP ENDOSCOPY Referral ID Status Reason Start Date Expiration Date Visits Re quested Visits Authorized [id number] 1 1 Encounter Details Date Type Department Care Team (Late st Contact Info) Description 06/14/2024 7:25 EST - 06/14/2024 8:05 EST Surgery [facility] OR [address] [place] [phone] Vicki Main MD [address] [place] [address], Level 4 [place] [phone] DRUG-INDUCED SLEEP ENDOSCOPY [36856 (CPT??)] Surgery Details Date/Time Status Location OR Service Patient Class Case Cl ass Case Type Trauma Case? 06/14/2024 0725 Posted [facility] OR [address] Outpatient Surgery H - Elective Panel [...] at 06/14/2024 7:23 EST Source Note - INDUSTRIAL ENGINEERING TECHNICIAN, SCAN 2 - 05/25/2024 15:31 EDT documented in this encounter OR Notes * OR Surgeon - Vicki Main MD - 06/14/2024 0751 EST OPERATIVE REPORT SERVICE DATE: 06/14/2024 SURGEON: Vicki Main MD YARD LOADER OPERATOR: Ricarda Baker MD PREOPERATIVE DIAGNOSIS Obstructive sleep [...] [facility] Dermatology 130 [facility], [place] [address] Cynthia Salinas MD [address] [place] [address] [place] [phone] 07/27/2025 Hospital Encounter [facility] OR [address] [place] [address] Vicki Main MD [address] [place] [address], [facility], Level [address] [place] [address] Scheduled Procedures Name Priority Associated [...] 06/14/2024 documented in this encounter Care Teams Nutrition Services Aide Relationship Specialty Start Date End Date [facility] 4 [facility] [place] [address] PCP - General 10/30/23 documented as of this encounter
--- OUTSIDE RECORDS SUMMARY | 2024-08-23 14:28 | XMS_ITS | Encounter Summary ---
Author Organization [facility] Address [address] [place] [address] Care Team Providers Care Clam Sorter Name Role Phone [facility] Primary Care Provider [phone] Reason for Visit * Auth/Cert (Routine) Specialty Diagnoses / Procedures Referred By Conthumberto t Referred To Contact Diagnoses CINTHIA (obstructive sleep apnea) Procedures [place] DISE DYN EVAL SLEEP DISORDERED BREATHING FLX DX DRUG-INDUCED SLEEP ENDOSCOPY Referral ID Status Reason Start Date Expiration Date Visits Re quested Visits Authorized [id number] 1 1 Encounter Details Date Type Department Care Team (Late st Contact Info) Description 06/14/2024 5:40 EST - 06/14/2024 9:30 EST Hospital Encounter [facility] OR [address] [place] [phone] Vicki Main MD 111 [facility], Level [address] [place] [phone] Discharge Disposition: Home or Self Care Social [...] at 06/14/2024 7:23 EST Source Note - VIDEO PRODUCTION SPECIALIST, SCAN 2 - 05/25/2024 15:31 EDT documented in this encounter OR Notes * OR Surgeon - Vicki Main MD - 06/14/2024 0751 EST OPERATIVE REPORT SERVICE DATE: 06/14/2024 SURGEON: Vicki Main MD CARE ASST: Ricarda Baker MD PREOPERATIVE DIAGNOSIS Obstructive sleep [...] Office Visit [facility] Dermatology 130 [facility], [place] [address] Cynthia Salinas MD 350 [facility] [address] [place] [phone] 07/27/2025 Hospital Encounter [facility] [place] [address] [place], [place] [phone] Vicki Main MD 111 [facility], [facility], Level [address] [place] [address] Scheduled Procedures Name Priority Associated [...] 06/14/2024 documented in this encounter Care Teams Clam Sorter Relationship Specialty Start Date End Date [facility] 4 [place] [address] PCP - General 10/30/23 documented as of this encounter
--- OUTSIDE RECORDS SUMMARY | 2024-08-23 14:28 | XMS_ITS | Encounter Summary ---
Author Organization [facility] Address [address] [place] [address] Care Team Providers Care Lumber Checker Name Role Phone [facility] Primary Care Provider [phone] [phone] Reason for Visit * Reason Onset Date Comments Appointment Related 04/14/2024 Encounter Details Date Type Department Care Team (Late st Contact Info) Description 04/14/2024 Telephone [facility] Derm[facility]ology 130 [facility], [place], [place] [phone] Cynthia Salinas MD [address] [place] [address] [place] [phone] Appointment Related Social History Tobacco Use Types [...] anything additional scheduled with Dr. Salinas s/p [facility]. Office Visit with Jonelle Rain MD (04/06/2024) documented in this encounter Plan of Treatment Upcoming Encounters Date Type Department Care Team (Late st Contact Info) Description 03/08/2025 11:00 EDT Office Visit [facility] Dermatology 130 [facility], [place], [place] [address] Cynthia Salinas MD [address] [place] [address] [place] [phone] 07/27/2025 Hospital Encounter [facility] [place] [address] [place] [phone] Vicki Main MD 111 [facility], [address] [place] [phone] Scheduled Procedures Name Priority Associated Diagnoses Date/Ti me INSERTION, CRANIAL NERVE STIMULATOR CINTHIA (obstructive sleep apnea) documented as of this encounter Visit Diagnoses Not on filedocumented in this encounter Care Teams Lumber Checker Relationship Specialty Start Date End Date [facility] 4 [place] [address] PCP - General 10/30/23 documented as of this encounter
--- OUTSIDE RECORDS SUMMARY | 2024-08-23 14:28 | XMS_ITS | Referral Summary ---
Author Organization [facility] Address [address] [place] [address] Care Team Providers Care Professional Healthcare Representative Name Role Phone Gonzalo [facility] Primary Care Provider [phone] Encounters Date Type Department Care Team Description 07/06/[address] [phone] Vicki Main MD Surgery Cancellation 06/20/2024 16:30 EST Post-op Visit [address] [phone] Vicki Main MD CINTHIA (obstructive sleep apnea) (Primary Dx) 06/14/2024 7:25 EST - 06/14/2024 8:05 EST Surgery [facility] OR [address] [place] [address] [phone] Vicki Main MD DRUG-INDUCED SLEEP ENDOSCOPY [[id number] (CPT??)] 06/14/2024 7:37 EST Anesthesia Event [facility] OR [address] [place] [address] [phone] Jak Ragland MD Dwosh, Ryan, DO 06/14/2024 5:40 EST - 06/14/2024 9:30 EST Hospital Encounter [facility] OR [address] [place] [address] [phone] Vicki Main MD Discharge Disposition: Home or Self Care 06/13/[address] [address] Vicki Main MD Discuss Surgery 06/07/2024 15:20 EST - 06/07/2024 16:37 EST Hospital Encounter [facility] Pre-Surgical Testing [address] [place] [address] from Last 3 Months Allergies Active Allergy [...] original. Patient has given permission for [facility] to verbally discuss the following information with Malena Vu [phone] who has the following relationship to the [...] stenosis 02/22/2018 Coronary artery disease invo lving [place] heart with angina pectoris ([facility]) 02/22/2018 Social History Tobacco Use Types [...] Assessment Author No 02/25/2018 11:00 EDT Gregorio Mendoza, RN * Are you blind or do [...] No 04/14/2018 10:58 EDT Gregorio Mendoza RN Mental Status * Because of a physical, mental, or emotional condition, does this person have serious difficulty concentrating, remembering, or making decisions? Answer Entry Date Author No 04/14/2018 10:58 CARMITAT Gregorio Mendoza RN Plan of Treatment Upcoming Encounters Date Type Department Care Team (Late st Contact Info) Description 03/08/2025 11:00 EDT Office Visit [facility] Dermatology [address] [facility], [place] [address] Cynthia Salinas MD [address] [place] [phone] 07/27/2025 Hospital Encounter [facility] OR [address] [place], [place] [phone] Vicki Main MD [address] [facility], [address] [place] [phone] Scheduled Procedures Name Priority Associated Diagnoses Date/Ti me INSERTION, CRANIAL NERVE STIMULATOR CINTHIA (obstructive sleep apnea) Procedures Procedure Name Priority Date/Time Associated Diagnosis Comments DRUG-INDUCED SLEEP ENDOSCOPY 06/14/2024 7:24 EST CINTHIA (obstructive sleep apnea) from Last 3 Months Insurance MEDICAID [place] [facility] MEDICARE [facility] MEDICARE MEDICAID [place] Advance Directives For more information, please contact: [phone] Documents on File Type Date Recorded Patient Business Information Consultant Expl anation COLST/MOLST 03/03/2018 8:00 2018-02-27 DNR [...] the discussion? Not Discusse d Care Teams Professional Healthcare Representative Relationship Specialty Start Date End Date Gonzalo [facility] [address] [place] [address] PCP - General 10/30/23
--- OUTSIDE RECORDS SUMMARY | 2024-08-23 14:28 | XMS_ITS | Clinical Summary ---
Author Organization [facility] Address [address] [place] [address] Care Team Providers Care Dry House Attendant Name Role Phone [facility] Primary Care Provider [phone] Allergies Active Allergy Reactions Criticality Noted Date [...] original. Patient has given permission for [facility] to verbally discuss the following information with Malena Horace [phone] who has the following relationship to the [...] stenosis 02/22/2018 Coronary artery disease invo lving [place] heart with angina pectoris ([facility]) 02/22/2018 Encounters Date Type Department Care Team Description 07/06/[address] [address] Vicki Main MD Surgery Cancellation 06/20/2024 16:30 EST Post-op Visit [address] [address] Vicki Main MD CINTHIA (obstructive sleep apnea) (Primary Dx) 06/14/2024 7:37 EST Anesthesia Event [facility] OR [address] [place] [address] [phone] Jak Ragland MD Dwosh, Ryan, DO 06/14/2024 7:25 EST - 06/14/2024 8:05 EST Surgery [facility] OR [address] [place] [address] Vicki Main MD DRUG-INDUCED SLEEP ENDOSCOPY [[id number] (CPT??)] 06/14/2024 5:40 EST - 06/14/2024 9:30 EST Hospital Encounter [facility] OR [address] [place], [place] [phone] Vicki Main MD Discharge Disposition: Home or Self Care 06/13/[address] [facility] [address] [place], [place] [phone] Vicki Main MD Discuss Surgery 06/07/2024 15:20 EST - 06/07/2024 16:37 EST Hospital Encounter [facility] Pre-Surgical Testing [address] [place] [address] from Last 3 Months Surgical History Surgery [...] : controlled at present time Endometrial cancer ([facility]) Not ed 06/07/2024: History of general anesthesia No giselle 06/07/2024: Wears dentures Noted 06/07/2024 : full set Activity, other involving ca rdiorespiratory exercise Noted 06/07/2024: swimming, shaker, walking, doesnt climb stairs Aortic valve disease Noted 06/07: s/p surgery CHF (congestive heart failure) ([facility]) Noted 06/07/2024: tx w/ meds,ECHO 11/23/17 tobin: [...] Noted 06/07/2024 : bilateral hearing aids, still UNGA Wears glasses Noted 06/07/2024 : Constipation Noted [...] Info) Description 03/08/2025 11:00 EDT Office Visit [facility] D[facility] [address] [facility], [place] [address] Cynthia Salinas MD [address] [facility] [address] [place] [address] 07/27/2025 Hospital Encounter [facility] OR [address] [place], [place] [phone] Vicki Main MD 111 [facility], [facility], Level [address] [place] [address] Scheduled Procedures Name Priority Associated Diagnoses Date/Ti me INSERTION, CRANIAL NERVE STIMULATOR CINTHIA (obstructive sleep apnea) Health Maintenance Due Date Last Done Comments Hepatitis C Screen 1945 RSV Immunization ( o r 60+ Years) (1 - 1-dose 75+ series) 2021 Advance Directive Review 03/03/2023 COVID-19 Vaccine ( season) 2024 Fall Risk Screening 03/02/2025 03/02/2024 Procedures Procedure Name Priority Date/Time Associated Diagnosis Comments DRUG-INDUCED SLEEP ENDOSCOPY 06/14/2024 7:24 EST CINTHIA (obstructive sleep apnea) from Last 3 Months Insurance MEDICAID [place] [facility] MEDICARE [facility] MEDICARE MEDICAID [place] Advance Directives For more information, please contact: [phone] Documents on File Type Date Recorded Patient Whiting Machine Operator Expl anation COLST/MOLST 03/03/2018 8:00 [...] the discussion? Not Discusse d Care Teams Dry House Attendant Relationship Specialty Start Date End Date Kenyon [facility] [address] [place] [address] PCP - General 10/30/23
--- OUTSIDE RECORDS SUMMARY | 2024-08-23 14:28 | XMS_ITS | Encounter Summary ---
Author Organization [facility] Address [address] [place] [address] Care Team Providers Care Nutrition Services Associate Name Role Phone Kit Burch MD Primary Care Provider [phone] Reason for Visit * Reason Onset Date Comments Referral Request 04/16/2018 Encounter Details Date Type Department Care Team (Late st Contact Info) Description 04/16/2018 Telephone [facility] Cardiology - [address] [address] Milagro Lozano RN [address] [place] [address] Referral Request Social History Tobacco [...] procedure note, d/c summary and referral for [facility] # provided by [facility] * Telephone Encounter - Che Mart - 04/16/2018 1140 EDT [facility] calling to request that a referral be sent to [facility] Cardiac Rehab # [phone]. States that Milagro Lozano needs to order documented in this encounter Plan of Treatment Upcoming Encounters Date Type Department Care Team (Late st Contact Info) Description 03/08/2025 11:00 EDT Office Visit [facility] Dermatology [address] [facility], [place], [place] [address] Cynthia Salinas MD 350 [facility] [address] [place] [phone] 07/27/2025 Hospital Encounter [facility] [place] [address] [place] [address] Vicki Main MD 111 [facility], [address] [place] [phone] Scheduled Procedures Name Priority Associated Diagnoses Date/Ti me INSERTION, CRANIAL NERVE STIMULATOR CINTHIA (obstructive sleep apnea) documented as of this encounter Visit Diagnoses Not on filedocumented in this encounter Care Teams Nutrition Services Associate Relationship Specialty Start Date End Date Kit Burch MD [facility] [address] [place] [address] PCP - General 01/15/18 10/29/23 documented as of this encounter
--- OUTSIDE RECORDS SUMMARY | 2024-08-23 14:29 | XMS_ITS | Encounter Summary ---
Author Organization [facility] Address [address] [place] [address] Care Team Providers Care Liquid Sugar Melter Name Role Phone Kit Burch MD Primary Care Provider [phone] Reason for Visit * Reason Comments Post-OP Follow Up Here for follow up, xray today. * Follow Up (Other (Specify in Question)) - Closed Specialty Diagnoses / Procedures Referred By Contact Referred To Contact Cardiothoracic Surgery Diagnoses Coronary artery disease involving [place] heart with angina pectoris, unspecified vessel or lesion type ([facility]) Nonrheumatic aortic valve stenosis Olga Lidia Stone MD Phone: tel:[phone] fax:[phone] [facility] Cardiothoracic Surgery [address] [address] Phone: tel: fax: Referral ID Status Reason Start Date Expiration Date V isits Requested Visits Authorized [id number] Closed Specialty Services Required 02/27/2018 1 1 Encounter Details Date Type Department Care Team (Latest Contact Info) Description 04/08/2018 9:30 EDT Office Visit [facility] Cardiothoracic Surgery [address] [phone] Tyrell Vogt MD Atherosclerosis of [place] coronary artery of [place] heart with angina pectoris ([facility]-CMS) (Primary Dx) [...] postprocedural states-Z98.890[ICD-10-CM] I25.119 Atherosclerotic heart disease of [place] coronary artery with unspecified angina pectoris-I25.119[ICD-10-CM] documented [...] Continue your long-term care follow-up with your Chalk Machine Operator/Heart Doctor and Primary Care Provider/Doctor as well [...] Follow-up with your Primary Care Provider/Doctor or Web Press Operator/Diabetes Doctor for your diabetes. Continue to ambulate/walk [...] contact your Primary Care Provider/Doctor or your Chalk Machine Operator/Heart Doctor for a referral to the Program with a Stress Test. For those of you who attend the Program at [facility] ([facility] Cardiology) you can have your Stress Test at the Cardiac Rehabilitation Program. They are located at [address] [place] [address] and their telephone number is . Follow the [place] [employer] Antibiotic Prophylaxis/Prevention Guidelines given and reviewed with you in a handout format today. Bring this with you to your Cardiology/Heart Doctor follow-upvisits in the future so that your Chalk Machine Operator/Heart Doctor can inform you of any future [...] up with Kit Burch and Ms. Worgan MANAGED CARE SPECIALIST 3. Follow-up in this office on a PRN basis. 4. Cardiac rehab per Ms. Lozano MANAGED CARE SPECIALIST 5. Opthalmology follow up for her eye floaters. Tyrell Vogt MD 04/08/2018 documented in this encounter Plan of Treatment Upcoming Encounters Date Type Department Care Team (Late st Contact Info) Description 03/08/2025 11:00 EDT Office Visit [facility] Dermatology [address] [facility], [place] [address] Cynthia Salinas MD 350 [facility] [address] [place] [address] 07/27/2025 Hospital Encounter [facility] OR [address] [place], [place] [phone] Vicki Main MD 111 [facility], [facility], Level [address] [place] [phone] Scheduled Procedures Name Priority Associated Diagnoses Date/Ti me INSERTION, CRANIAL NERVE STIMULATOR CINTIHA (obstructive sleep apnea) documented as of this encounter Visit Diagnoses Diagnosis Atherosclerosis of [place] coronary artery of [place] heart with angina pectoris ([facility])- Primary documented in this encounter Discontinued Medications [...] 06/07/2024 added in this encounter Care Teams Liquid Sugar Melter Relationship Specialty Start Date End Date Kit Burch MD [address] [facility] [place] [phone] PCP - General 01/15/18 10/29/23 documented as of this encounter
--- OUTSIDE RECORDS SUMMARY | 2024-08-23 14:29 | XMS_ITS | Encounter Summary ---
Author Organization [facility] Address [address] [place] [address] Care Team Providers Care Instructional Materials Director Name Role Phone Kit Burch MD Primary Care Provider [phone] Reason for Visit * Reason Onset Date Comments Update 03/23/2018 Encounter Details Date Type Department Care Team (Late st Contact Info) Description 03/23/2018 Telephone [facility] [address] [place] [address] Sharla Clements RN [address] [place] [address] Update Social History Tobacco Use Types Packs/Day [...] Encounter - Sharla Clements RN - 03/23/2018 1574 EDT CARDIAC SURGERY NURSING DISCHARGE FOLLOW-UP CALL Surgery: CABG AVR Surgeon: Dr. Vogt Patient has reviewed Discharge Instructions / After Visit Summary given at Discharge from Hospital:No OR has Inpatient Rehabilitation Discharge Instructions and reviewed Yes [facility]. THE FOLLOWING INFORMATION HAS BEEN REVIEWED WITH Patient and Coral AT THIS TIME FOLLOWS: Home Health Is Home Health following patient? Yes Pain Rating Tool: Post-Operative Pain/Discomfort: No Intensity: 0 Location: NA Is pain medication relieving pain? NA Discharge Medications Reviewed: Yes Antibiotic Prophylaxis Handout from [place] [employer] reviewed with patient or significantother? [...] Surgery Patients per Discharge Video reviewed: NA (REFRESH):[id number]} Work: Reviewed No work for 6 - [...] for their Cardiac Surgery Follow-up in our [facility] Office with Dr. Villafana appointment confirmed at this time for location, time for check in and chest x-ray check in time. Cardiology Follow-up Appointment made (2-4 weeks or as per Discharge Instructions): If [facility] Water Meter Mechanic email cardschedule to have them make a follow-up appointment and they will call the patient orask pathology secretary/transcriptionist to do this. If Private Practice Water Meter Mechanic ask patient to call and make appointment: [...] EDT Office Visit [facility] Dermatology [address] [facility], [place] [address] Cynthia Salinas MD 350 [facility] [address] [place] [phone] 07/27/2025 Hospital Encounter [facility] OR [address] [place], [place] [address] Vicki Main MD 111 [facility], [address] [place] [address] Scheduled Procedures Name Priority Associated Diagnoses Date/Ti me INSERTION, CRANIAL NERVE STIMULATOR CINTHIA (obstructive sleep apnea) documented as of this encounter Visit Diagnoses Not on filedocumented in this encounter Care Teams Instructional Materials Director Relationship Specialty Start Date End Date Kit Burch MD [address] [place] [phone] PCP - General 01/15/18 10/29/23 documented as of this encounter
--- OUTSIDE RECORDS SUMMARY | 2024-08-23 14:29 | XMS_ITS | Encounter Summary ---
Author Organization [facility] Address [address] [place] [address] Care Team Providers Care Foundry Worker General Name Role Phone Kit Burch MD Primary Care Provider [phone] Reason for Referral * Radiology Services (Routine) - New Request Specialty Diagnoses / Procedures Referred By Contac t Referred To Contact Diagnoses S/P CABG (coronary artery bypass graft) Procedures CHEST PA AND LATERAL Wm Magana PA-C Phone: tel: fax: Referral ID Status Reason Start Date Expiration Date V isits Requested Visits Authorized [id number] New Request 04/07/2018 1 1 Encounter Details Date Type Department Care Team (Late st Contact Info) Description 04/07/2018 Orders Only [facility] Cardiothoracic Surgery - [address] [address] Wm Magana PA-C [address] [place] [address], [address] [place] [phone] S/P CABG (coronary artery bypass graft) (Primary [...] EDT Office Visit [facility] Dermatology [address] [place] [address] Cynthia Salinas MD [address] [place] [address] [address] [place] [address] 07/27/2025 Hospital Encounter [facility] OR [address] [place] [address] Vicki Main MD 111 [facility], [facility], Level [address] [place] [phone] Scheduled Procedures Name Priority Associated Diagnoses Date/Ti [...] AM CLINICAL HISTORY: Z95.1-Presence of aortocoronary bypass [id number]; s/p AVR/CABG TECHNIQUE: Two views of the [...] AM CLINICAL HISTORY: Z95.1-Presence of aortocoronary bypass [id number]; s/p AVR/CABG TECHNIQUE: Two views of the [...] status documented in this encounter Care Teams Foundry Worker General Relationship Specialty Start Date End Date Kit Burch MD [facility] [employer] [address] [address] PCP - General 01/15/18 10/29/23 documented as of this encounter
--- OUTSIDE RECORDS SUMMARY | 2024-08-23 14:29 | XMS_ITS | Encounter Summary ---
Author Organization [facility] Address [address] [place] [address] Care Team Providers Care Corrosion Control Fitter Name Role Phone Kit Burch MD Primary Care Provider [phone] Reason for Referral * Consult (Routine) - Closed Specialty Diagnoses / Procedures Referred By Ana caro Referred To Contact Diagnoses Chronic diastolic congestive heart failure (HCC-CMS) Coronary artery disease involving coronary bypass graft of [place] heart without angina pectoris S/P AVR Milagro Lozano RN [address] [place] [address] Phone: tel: fax: Referral ID Status Reason Start Date Expiration Date V isits Requested Visits Authorized [id number] Closed Specialty Services Required 04/14/2018 1 1 Question Answer Reason for Request: s/p CABG and AVR SITE Loni * Laboratory Services (Routine) - New Request Specialty Diagnoses / Procedures Referred By Ana caro Referred To Contact Diagnoses Coronary artery disease involving coronary bypass graft of [place] heart without angina pectoris Procedures BASIC METABOLIC PANEL (BMP) Milagro Lozano RN [address] [place] [address] Phone: tel: fax: Referral ID Status Reason Start Date Expiration Date V isits Requested Visits Authorized [id number] New Request 04/14/2018 1 1 Reason for Visit * Reason Comments Coronary Artery Disease PO s/p CABGx1 Aortic Stenosis Fatigue Encounter Details Date Type Department Care Team (Late st Contact Info) Description 04/14/2018 11:00 EDT Office Visit [facility] Cardiology - [address] [address] Milagro Lozano RN [address] [place] [address] Coronary artery disease involving coronary bypass graft of [place] heart without angina pectoris (Primary Dx); Chronic [...] visit for CAD s/p CABGx1 (WALTERS-LAD) and AVR([place] bovine pericardial valve, size small) February 22, 2018. Pt presented with JONES and decreased activity tolerance. Pt reports some improvement, but continues to be fatigued. Had great difficulty wakening from anesthesia by family report and review in [facility]. Developed isolated episode of afib. EKG [...] discharge reveal hgb/hct/plts . No lipids in [facility]. Followed by Dr. De Dios at [facility]. Pt denies chest pain on exertion, orthopnea, paroxysmal nocturnal dyspnea, leg swelling, dizziness and syncope, denies fevers or chills. Pt has been compliant with her medications. Medications side effects include none. Past Medical History: Diagnosis Date ??? Aortic stenosis ??? Depression ??? Endometrial cancer ([facility]) ??? Hyperlipidemia ??? Hypertension ??? Hypothyroid ??? CINTHIA (obstructive sleep apnea) Patient Active Problem List Diagnosis Date Noted ??? Nonrheumatic aortic valve stenosis 02/22/2018 Priority: Medium ??? Coronary artery disease involving [place] heart with angina pectoris ([facility]) 02/22/2018 Priority: Medium Past Surgical History: [...] greater than 50% of the time spent [id number], providing patient education and coordinating the plan of care. I was supervised by Dr. Cherry who was on site and available. Portions of this document may have been prepared with speech recognition software or keyboard data librarian techniques. Minor irregularities or keyboarding misprints may be present Milagro Lozano NP Interventional Cardiology documented in this encounter Plan of Treatment Upcoming Encounters Date Type Department Care Team (Late st Contact Info) Description 03/08/2025 11:00 EDT Office Visit [facility] Dermatology [address] [facility], [place], [place] [address] Cynthia Salinas MD [address] [facility] [address] [place] [address] 07/27/2025 Hospital Encounter [facility] OR [address] [place] [address] Vicki Main MD [address] [facility], [address] [place] [phone] Scheduled Orders Name Type Priority Associated Diagnoses Orde r Schedule BASIC METABOLIC PANEL (BMP) Lab Routine Coronary artery disease involving coronary bypass graft of [place] heart without angina pectoris Expected: 04/14/2018 (Approximate), Expires: 04/14/2019 Scheduled Procedures Name Priority Associated Diagnoses Date/Ti me INSERTION, CRANIAL NERVE STIMULATOR CINTHIA (obstructive sleep apnea) Scheduled Referrals Name Type Priority Associated Diagnoses Order Schedule AMB CONS/FOLLOW UP CARDIAC REHABILITATION Outpatient Referral Routine Chronic diastolic congestive heart failure (HCC-CMS) Coronary artery disease involving coronary bypass graft of [place] heart without angina pectoris S/P AVR Ordered: 04/14/2018 documented as of this encounter Results * (ABNORMAL) NT PRO BNP (04/14/2018 11:59 EDT) Pathologist [facility] NT Pro BNP 1,060(H) <300 pg/ml 04/14/2018 16:[address] [facility] Comment: Reference Range: NT-proBNP [...] & BLOOD GAS ORDERABL ES Final Result [facility] [address] [place] [address] * (ABNORMAL) COMPLETE BLOOD COUNT (04/14/2018 11:59 EDT) Pathologist [facility] WBC 10.40 4.0 - 12.4 K/cmm 04/14/2018 16:[address] [facility] RBC 4.09 3.86 - 5.04 M/cmm 04/14/2018 16:[address] [facility] Hemoglobin 13.9 11.6 - 15.2 gm/dl 04/14/2018 16:[address] [facility] HCT 41.4 34.9 - 44.4 % 04/14/2018 16:[address] [facility] MCV 101(H) 81 - 98 fl 04/14/2018 16:[address] [facility] MCH 34.0(H) 26.7 - 33.3 pg 04/14/2018 16:[address] [facility] MCHC 33.6 32.1 - 35.9 gm/dl 04/14/2018 16:[address] [facility] RDW-CV 12.6 <14.7 % 04/14/2018 16:[address] [facility] RDW-SD 47.5 <50.4 fl 04/14/2018 16:[address] [facility] PLT 178 141 - 377 K/cmm 04/14/2018 16:[address] [facility] MPV 11.8 9.5 - 12.7 fl 04/14/2018 16:[address] [facility] Blood specimen (specimen) BLOOD SPECIMEN / Unknown 04/14/2018 11:59 EDT 04/14/2018 16:00 EDT Milagro Lozano RN HEMATOLOGY & PF4 ORDERABLES Fi nal Result Performing Organization Address City/State/[facility] Co de Phone Number [facility] [address] [place] [address] documented in this encounter Visit Diagnoses Diagnosis Coronary artery disease involving coronary bypass graft of [place] heart without angina pectoris- Primary Chronic diastolic congestive heart failure ([facility]) Chronic diastolic heart failure S/P AVR Heart [...] 10/30/2023 added in this encounter Care Teams Corrosion Control Fitter Relationship Specialty Start Date End Date Kit Burch MD [address] [place] [phone] PCP - General 01/15/18 10/29/23 documented as of this encounter
--- OUTSIDE RECORDS SUMMARY | 2024-08-23 14:29 | XMS_ITS | Encounter Summary ---
Author Organization [facility] Address [address] [place] [address] Care Team Providers Care Crm Functional Analyst Name Role Phone Kit Burch MD Primary Care Provider [phone] Encounter Details Date Type Department Care Team (Latest Contact Info) Description 04/14/2018 11:40 EDT Procedure visit [facility] Endocrinology - [facility] [address] [place], [place] [phone] Milagro Lozano RN [address] [place], [place] [phone] Phlebotomy, [facility] Coronary artery disease involving coronary bypass graft of [place] heart without angina pectoris; Chronic diastolic congestive heart failure ([facility]) Discharge Disposition: Auto Discharge Social History Tobacco [...] documented in this encounter Progress Notes * Milgaro Medeiros - 04/14/2018 1140 EDT Venipuncture preformed [...] Description 03/08/2025 11:[address] [facility] Dermatology [address] [facility], [place], [place] [phone] Cynthia Salinas MD [address] [place] [address] [place] [phone] 07/27/2025 Hospital Encounter [facility] OR [address] [place] [address] Vicki Main MD [address] [facility], [address] [place] [phone] Scheduled Procedures Name Priority Associated Diagnoses Date/Ti me INSERTION, CRANIAL NERVE STIMULATOR CINTHIA (obstructive sleep apnea) documented as of this encounter Procedures Procedure Name Priority Date/Time Associated Diagnosis Comments COMPLETE BLOOD COUNT Routine 04/14/2018 11:59 EDT Coronary artery disease involving coronary bypass graft of [place] heart without angina pectoris NT PRO BNP Routine 04/14/2018 11:59 EDT Coronary artery disease involving coronary bypass graft of [place] heart without angina pectoris Chronic diastolic congestive heart failure ([facility]) documented in this encounter Results * (ABNORMAL) COMPLETE BLOOD COUNT (04/14/2018 11:59 EDT) WBC 10.40 4.0 - 12.4 K/cmm 04/14/2018 16:31 [facility] RBC 4.09 3.86 - 5.04 M/cmm 04/14/2018 16:31 [facility] Hemoglobin 13.9 11.6 - 15.2 gm/dl 04/14/2018 16:31 [facility] HCT 41.4 34.9 - 44.4 % 04/14/2018 16:31 [facility] MCV 101(H) 81 - 98 fl 04/14/2018 16:31 [facility] MCH 34.0(H) 26.7 - 33.3 pg 04/14/2018 16:31 [facility] MCHC 33.6 32.1 - 35.9 gm/dl 04/14/2018 16:31 [facility] RDW-CV 12.6 <14.7 % 04/14/2018 16:31 [facility] RDW-SD 47.5 <50.4 fl 04/14/2018 16:31 [facility] PLT 178 141 - 377 K/cmm 04/14/2018 16:31 [facility] MPV 11.8 9.5 - 12.7 fl 04/14/2018 16:[address] [facility] Blood specimen (specimen) BLOOD SPECIMEN / Unknown 04/14/2018 11:59 EDT 04/14/2018 16:00 EDT Milagro Lozano RN HEMATOLOGY & PF4 ORDERABLES Fi nal Result Performing Organization Address [facility] Co de Phone Number [facility] [address] [place] [address] * (ABNORMAL) NT PRO BNP (04/14/2018 11:59 EDT) NT Pro BNP 1,060(H) <300 pg/ml 04/14/2018 16:[address] [facility] Comment: Reference Range: NT-proBNP values [...] ORDERABL ES Final Result Performing Organization Address [facility] Co de Phone Number [facility] [address] [place] [address] documented in this encounter Visit Diagnoses Diagnosis Coronary artery disease involving coronary bypass graft of [place] heart without angina pectoris Chronic diastolic congestive heart failure (HCC-CMS) Chronic diastolic heart failure documented in this encounter Orders Lab Orders Without Results Count Last Ordered D ate First Ordered Date BASIC METABOLIC PANEL (BMP) 1 04/14/2018 documented in this encounter Care Teams Crm Functional Analyst Relationship Specialty Start Date End Date Kit Burch MD [address] [place] [phone] PCP - General 01/15/18 10/29/23 documented as of this encounter
--- OUTSIDE RECORDS SUMMARY | 2024-08-23 14:29 | XMS_ITS | Encounter Summary ---
Author Organization [facility] Address [address] [place] [address] Care Team Providers Care Infrastructure Manager Name Role Phone Kit Burch MD Primary Care Provider [phone] Encounter Details Date Type Department Care Team (Late st Contact Info) Description 03/12/2018 Historical Results Only [facility] - [place] [address] [place] [address] Ishmael Kilgore MD [facility] [address] [place] [address] Social History Tobacco Use Types [...] Visit [facility] Dermatology [address] [place] [address], [place] [address] Cynthia Salinas MD [address] [place] [address] [place] [phone] 07/27/2025 Hospital Encounter [facility] OR [address] [place] [address] Vicki Main MD [address] [facility], [address] [place] [phone] Scheduled Procedures Name Priority Associated Diagnoses Date/Ti me INSERTION, CRANIAL NERVE STIMULATOR CINTHIA (obstructive sleep apnea) documented as of this encounter Procedures Procedure Name Priority Date/Time Associated Diagnosis Comments BACTERIAL CULTURE/SMEAR, RESPIRATORY Routine 03/12/2018 17:37 EDT documented in this encounter Results * BACTERIAL CULTURE/SMEAR, RESPIRATORY (03/12/2018 17:37 EDT) GRAM STAIN - [facility] TWO SWABS RECEIVED FOR CULTURE AND GRAM STAIN 03/12/2018 18:31 EDT [facility] BACTERIA SEEN - [facility] NO 03/12/2018 18:31 EDT [facility] WBC RARE 03/12/2018 18:31 EDT [facility] USUAL SKIN ARNIE - [facility] USF 03/15/2018 11:30 EDT [facility] QUANT - [facility] BROTH ONLY 03/15/2018 11:30 EDT [facility] 03/12/2018 17:3 7 EDT 03/12/2018 17:37 EDT us Ishmael Kilgore MD MICROBIOLOGY - GENERAL ORDERABLES Final Result [facility] documented in this encounter Visit Diagnoses Not on filedocumented in this encounter Care Teams Infrastructure Manager Relationship Specialty Start Date End Date Kit Burch MD [facility] [address] [place] [phone] PCP - General 01/15/18 10/29/23 documented as of this encounter
--- OUTSIDE RECORDS SUMMARY | 2024-08-23 14:29 | XMS_ITS | Encounter Summary ---
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 6:57 EDT Result Wood Beasley MD CHEMISTRY & BLOOD GAS ORDERA BLES Final Result Performing Organization Address [facility]/ZIP Co de Phone Number [facility] [address] [place] [address] * BUN (02/26/2018 5:20 EDT) BUN 22 10 - 26 mg/dl 02/26/2018 7:28 EDT [facility] Blood specimen (specimen) BLOOD SPECIMEN / Unknown 02/26/2018 5:20 EDT 02/26/2018 6:57 EDT us Adryan Beasley MD CHEMISTRY & BLOOD GAS ORDERA BLES Final Result Performing Organization Address [facility] de Phone Number [facility] [address] [place] [address] * (ABNORMAL) ELECTROLYTES (02/26/2018 5:20 EDT) Sodium 135(L) 136 - 145 mEq/L 02/26/2018 7:28 EDT [facility] Potassium 4.1 3.5 - 5.0 mEq/L 02/26/2018 7:28 EDT [facility] Chloride 102 96 - 110 mEq/L 02/26/2018 7:28 EDT [facility] CO2 27 22 - 32 mEq/L 02/26/2018 7:28 EDT [facility] Blood specimen (specimen) BLOOD SPECIMEN / Unknown 02/26/2018 5:20 EDT 02/26/2018 6:57 EDT us Adryan Beasley MD CHEMISTRY & BLOOD GAS ORDERA BLES Final Result Performing Organization Address [facility] de Phone Number [facility] [address] [place] [address] * (ABNORMAL) GLUCOSE, GLUCOMETER (02/25/2018 21:16 EDT) Glucose, Fingerstick 152(H) 70 - 100 mg/dl 02/25/2018 21:21 EDT [facility] Mason Helper ID [id number] 02/25/2018 21:21 EDT [facility] Comment:Test [facility] by [facility] BLOOD SPECIMEN / Unknown 02/25/2018 21:16 EDT 02/25/2018 21:21 EDT us Tyrell Vela MD CHEMISTRY & BLOOD GAS ORD ERABLES Final Result [facility] [address] [place] [address] * (ABNORMAL) GLUCOSE, GLUCOMETER (02/25/2018 16:44 EDT) Glucose, Fingerstick 185(H) 70 - 100 mg/dl 02/25/2018 16:46 EDT [facility] Mason [place]per ID [id number] 02/25/2018 16:46 EDT [facility] Comment:Test Performed by [facility] BLOOD SPECIMEN / Unknown 02/25/2018 16:44 EDT 02/25/2018 16:46 EDT Tyrell Vela MD CHEMISTRY & BLOOD GAS ORD ERABLES Final Result Performing Organization Address City/[facility] Co de Phone Number [facility] [address] [place] [address] * CHEST PA AND LATERAL (02/25/2018 13:18 [...] 70 - 100 mg/dl 02/25/2018 12:18 EDT [facility] Mason [place]per ID [id number] 02/25/2018 12:18 EDT [facility] Comment:Test Performed by [employer] BLOOD SPECIMEN / Unknown 02/25/2018 12:12 EDT 02/25/2018 12:18 EDT Tyrell Vela MD CHEMISTRY & BLOOD GAS ORD ERABLES Final Result Performing Organization Address [facility] Co de Phone Number [facility] [address] [place] [address] * (ABNORMAL) GLUCOSE, GLUCOMETER (02/25/2018 9:19 EDT) Glucose, Fingerstick 154(H) 70 - 100 mg/dl 02/25/2018 9:32 EDT [facility] Mason [place]per ID [id number] 02/25/2018 9:32 EDT [facility] Comment:Test Performed by [employer] BLOOD SPECIMEN / Unknown 02/25/2018 9:19 EDT 02/25/2018 9:32 EDT Tyrell Vela MD CHEMISTRY & BLOOD GAS ORD ERABLES Final Result Performing Organization Address City/[facility]/ZIP Co de Phone Number [facility] [address] [place] [address] * HEPARIN PF4 IGG AB (HIT), S (02/25/2018 8:07 EDT) Pathologist [facility] HIT NITO 0.099 <0.400 OD 02/26/2018 18:43 EDT [facility] Interpretation Negative Negative 02/26/2018 18:43 EDT [facility] Comment (Note) 02/26/2018 18:43 EDT [facility] Comment: Patient serum has [...] This test has been modified from the nutrition director's instructions. Its performance characteristics were determined by [facility] in a manner consistent with CLIA requirements. This test has not been cleared or approved by the U.S. Food and Drug Administration. Performed or Referred by: [facility], [address] [place] [address], Lab Dir: Jak Cleveland II, M.D., Ph.D. Blood specimen (specimen) BLOOD SPECIMEN / Unknown 02/25/2018 8:07 EDT 02/25/2018 8:13 EDT us Nacho Scales MD HEMATOLOGY & PF4 ORDERABLES Final Result [facility] [address] [place] [address] * GLUCOSE, GLUCOMETER (02/25/2018 8:06 EDT) Glucose, Fingerstick 78 70 - 100 mg/dl 02/25/2018 8:11 EDT [facility] [place] [id number] 02/25/2018 8:11 EDT [facility] Comment:Test Performed by [facility] Services BLOOD SPECIMEN / Unknown 02/25/2018 8:06 EDT 02/25/2018 8:11 EDT us Tyrell Vela MD CHEMISTRY & BLOOD GAS ORD ERABLES Final Result [facility] [address] [place] [address] * EKG 12-LEAD (02/25/2018 7:33 EDT) 02/25/2018 7:33 EDT Narrative [facility] - 02/26/2018 10:48 EDT ? [facility] ? Test Date: ?2018-02-25 Pat Name: ? TROY ANDERS ? Department: ?? [facility] [address] [place] ? Room: ? SB365 Gender: ? Female ? Tapper Operator: ?? : ?1945 ? Requested By: AVE Velasquez Number: [id number] ? Aliyah WOODS: ?? MARIFER BARKLEY MD ? Measurements Intervals ?[place] ? Rate: ? 103 ?P: ? ND: [...] Note Marifer Barkley MD - 02/26/2018 [facility] Test Date: 2018-02-25 Pat Name: TROY ANDERS Department: [address] Room: SB365 Gender: Female Tapper Operator: : 1945 Requested By: AVE VALDES Order Number: [id number] Aliyha MD: MARIFER BARKLEY MD Measurements Intervals [place] Rate: 103 P: ND: 0 QRS: -5 [...] ORDERA BLES Final Result Performing Organization Address [facility] Co de Phone Number [facility] * GLUCOSE, GLUCOMETER (02/25/2018 6:21 EDT) Glucose, Fingerstick 93 70 - 100 mg/dl 02/25/2018 6:22 EDT [facility] [place]per ID [id number] 02/25/2018 6:22 EDT [facility] Comment:Test [facility] by [facility] BLOOD SPECIMEN / Unknown 02/25/2018 6:21 EDT 02/25/2018 6:22 EDT Tyrell Vela MD CHEMISTRY & BLOOD GAS ORD ERABLES Final Result Performing Organization Address [facility] Co de Phone Number [facility] [address] [place] [address] * (ABNORMAL) GLUCOSE, GLUCOMETER (02/25/2018 4:53 EDT) Glucose, Fingerstick 103(H) 70 - 100 mg/dl 02/25/2018 4:55 EDT [facility] Mason [place]per ID [id number] 02/25/2018 4:55 EDT [facility] Comment:Test Performed by [facility] [employer] BLOOD SPECIMEN / Unknown 02/25/2018 4:53 EDT 02/25/2018 4:55 EDT us Tyrell Vela MD CHEMISTRY & BLOOD GAS ORD ERABLES Final Result Performing Organization Address [facility] Co de Phone Number [facility] [address] [place] [address] * (ABNORMAL) GLUCOSE, GLUCOMETER (02/25/2018 2:31 EDT) Glucose, Fingerstick 117(H) 70 - 100 mg/dl 02/25/2018 2:32 EDT [facility] [place] ID [id number] 02/25/2018 2:32 EDT [facility] Comment:Test Performed by [facility] Services BLOOD SPECIMEN / Unknown 02/25/2018 2:31 EDT 02/25/2018 2:32 EDT Tyrell Vela MD CHEMISTRY & BLOOD GAS ORD ERABLES Final Result Performing Organization Address City/[facility]/ZIP Co de Phone Number [facility] [address] [place] [address] * (ABNORMAL) CALCIUM (02/25/2018 2:15 EDT) Calcium 8.0(L) 8.5 - 10.5 mg/dl 02/25/2018 2:57 EDT [facility] Calculated Calcium 9.2 8.5 - 10.5 mg/dl 02/25/2018 2:57 EDT [facility] Blood specimen (specimen) BLOOD SPECIMEN / Unknown 02/25/2018 2:15 EDT 02/25/2018 2:23 EDT Marquita Jackson MD CHEMISTRY & BLOOD GAS ORDERABLES Final Result Performing Organization Address [facility] Co de Phone Number [facility] [address] [place] [address] * MAGNESIUM (02/25/2018 2:15 EDT) Magnesium 2.1 1.7 - 2.8 mg/dl 02/25/2018 2:57 EDT [facility] Blood specimen (specimen) BLOOD SPECIMEN / Unknown 02/25/2018 2:15 EDT 02/25/2018 2:23 EDT Marquita Jackson MD CHEMISTRY & BLOOD GAS ORDERABLES Final Result Performing Organization Address City/[facility]/ZIP Co de Phone Number [facility] [address] [place] [address] * (ABNORMAL) COMPLETE BLOOD COUNT (02/25/2018 2:15 EDT) WBC 13.19(H) 4.0 - 12.4 K/cmm 02/25/2018 2:46 EDT [facility] RBC 2.95(L) 3.86 - 5.04 M/cmm 02/25/2018 2:46 [facility] Hemoglobin 10.0(L) 11.6 - 15.2 gm/dl 02/25/2018 2:46 T [facility] HCT 29.2(L) 34.9 - 44.4 % 02/25/2018 2:46 [facility] MCV 99(H) 81 - 98 fl 02/25/2018 2:46 [facility] MCH 33.9(H) 26.7 - 33.3 pg 02/25/2018 2:46 [facility] MCHC 34.2 32.1 - 35.9 gm/dl 02/25/2018 2:46 [facility] RDW-CV 13.5 <14.7 % 02/25/2018 2:46 [facility] RDW-SD 48.9 <50.4 fl 02/25/2018 2:46 [facility] PLT 79(L) 141 - 377 K/cmm 02/25/2018 2:46 [facility] MPV 12.4 9.5 - 12.7 fl 02/25/2018 2:46 [facility] Blood specimen (specimen) BLOOD SPECIMEN / Unknown 02/25/2018 2:15 EDT 02/25/2018 2:23 EDT us Adryan Beasley MD HEMATOLOGY & PF4 ORDERABLES Final Result [facility] [address] [place] [address] * CREATININE (02/25/2018 2:15 EDT) Creatinine 0.63 0.52 - 1.04 mg/dl 02/25/2018 2:57 EDT [facility] GFR, Calculated 91 >60 ml/min/1.7 3m2 02/25/2018 2:57 EDT [facility] Comment: eGFR calculated using CKD-EPI equation for non Americans. Multiply eGFR by 1.16 for Americans. Blood specimen (specimen) BLOOD SPECIMEN / Unknown 02/25/2018 2:15 EDT 02/25/2018 2:23 EDT us Adryan Beasley MD CHEMISTRY & BLOOD GAS ORDERA BLES Final Result Performing Organization Address [facility] Co de Phone Number [facility] [address] [place] [address] * BUN (02/25/2018 2:15 EDT) BUN 20 10 - 26 mg/dl 02/25/2018 2:57 EDT [facility] Blood specimen (specimen) BLOOD SPECIMEN / Unknown 02/25/2018 2:15 EDT 02/25/2018 2:23 EDT us Adryan Beasley MD CHEMISTRY & BLOOD GAS ORDERA BLES Final Result Performing Organization Address [facility] de Phone Number [facility] [address] [place] [address] * (ABNORMAL) ELECTROLYTES (02/25/2018 2:15 EDT) Sodium 135(L) 136 - 145 mEq/L 02/25/2018 2:57 EDT [facility] Potassium 4.1 3.5 - 5.0 mEq/L 02/25/2018 2:57 EDT [facility] Chloride 105 96 - 110 mEq/L 02/25/2018 2:57 EDT [facility] CO2 26 22 - 32 mEq/L 02/25/2018 2:57 EDT [facility] Blood specimen (specimen) BLOOD SPECIMEN / Unknown 02/25/2018 2:15 EDT 02/25/2018 2:23 EDT us Adryan Beasley MD CHEMISTRY & BLOOD GAS ORDERA SOUTHS Final Result [facility] [address] [place] [address] * EKG 12-LEAD (02/25/2018 2:01 EDT) 02/25/2018 2:01 EDT Narrative [facility] EKG - 02/26/2018 10:49 EDT ? [facility] ? Test Date: ?2018-02-25 Pat Name: ? TROY ANDERS ? Department: ?? [address] [place] ? Room: ? SB365 Gender: ? Female ? Tapper Operator: ?? [id number] : ?1945 ? Requested By: DANE Witt Order Number: [id number] ? Reading : ?? MARIFER BARKLEY MD ? Measurements Intervals ?[place] ? Rate: ? 88 ? P: ?28 [...] Note Marifer Barkley MD - 02/26/2018 [facility] Test Date: 2018-02-25 Pat Name: TROY ANDERS Department: [address] Room: [facility] Gender: Female Tapper Operator: [id number] : 1945 Requested By: DANE Witt Order Number: [id number] Reading MD: MARIFER BARKLEY MD Measurements Intervals [place] Rate: 88 P: 28 ND: 198 QRS: -4 QRSD: 140 T: 160 QT: 378 QTc: 458 Interpretive Statements SINUS RHYTHM WITH FREQUENT SUPRAVENTRICULAR PREMATURE COMPLEXES Left bundle branch block I reviewed the tracing and have either agreed or edited the findings inthis report. Electronically Signed On 02-26-2018 10:49:28 EDT by MARIFER HERNÁNDEZ. us Tyrell Vela MD CARDIAC ECG ORDERABLES Fi nal Result Performing Organization Address City/[facility]/ZIP Co de Phone Number [facility] EKG * (ABNORMAL) GLUCOSE, GLUCOMETER (02/25/2018 0:59 EDT) Glucose, Fingerstick 111(H) 70 - 100 mg/dl 02/25/2018 0:59 EDT [facility] [place] ID [id number] 02/25/2018 0:59 EDT [facility] Comment:[facility] BLOOD SPECIMEN / Unknown 02/25/2018 0:59 EDT 02/25/2018 1:00 EDT us Tyrell Vela MD CHEMISTRY & BLOOD GAS ORD ERABLES Final Result Performing Organization Address [facility]/ZIP Co de Phone Number [facility] [address] [place] [address] * (ABNORMAL) GLUCOSE, GLUCOMETER (02/24/2018 23:03 EDT) Glucose, Fingerstick 128(H) 70 - 100 mg/dl 02/25/2018 0:28 EDT [facility] [place] ID [id number] 02/25/2018 0:28 EDT [facility] Comment:[facility] BLOOD SPECIMEN / Unknown 02/24/2018 23:03 EDT 02/25/2018 0:28 EDT us Tyrell Vela MD CHEMISTRY & BLOOD GAS ORD ERABLES Final Result [facility] [address] [place] [address] * (ABNORMAL) GLUCOSE, GLUCOMETER (02/24/2018 20:57 EDT) Glucose, Fingerstick 146(H) 70 - 100 mg/dl 02/24/2018 21:08 EDT [facility] [place] ID [id number] 02/24/2018 21:08 EDT [facility] Comment:[facility] BLOOD SPECIMEN / Unknown 02/24/2018 20:57 EDT 02/24/2018 21:08 EDT us Tyrell Vela MD CHEMISTRY & BLOOD GAS ORD ERABLES Final Result Performing Organization Address [facility] Co de Phone Number [facility] [address] [place] [address] * (ABNORMAL) GLUCOSE, GLUCOMETER (02/24/2018 19:49 EDT) Glucose, Fingerstick 136(H) 70 - 100 mg/dl 02/24/2018 19:50 EDT [facility] [place] ID [id number] 02/24/2018 19:50 EDT [facility] Comment:Test Performed by [facility] Services BLOOD SPECIMEN / Unknown 02/24/2018 19:49 EDT 02/24/2018 19:50 EDT us Tyrell Vela MD CHEMISTRY & BLOOD GAS ORD ERABLES Final Result Performing Organization Address [facility] Co de Phone Number [facility] [address] [place] [address] * EKG 12-LEAD (02/24/2018 17:49 EDT) 02/24/2018 17:4 9 EDT Narrative [facility] EKG - 03/01/2018 14:57 EDT ? [facility] ? Test Date: ?2018-02-24 Pat Name: ? TROY SHIRA ? Department: ?? [address] ? Room: ? SB365 Gender: ? Female ? Tapper Operator: ?? : ?1945 ? Requested By: YORDY NACHO Order Number: [id number] ? Reading MD: ?? MAXIMILIAN VALADEZ MD ? Measurements Intervals ?[place] ? Rate: ? 88 ? P: ?28 [...] Note Maximilian Valadez MD - 03/01/2018 [facility] Test Date: 2018-02-24 Pat Name: TROY ANDERS Department: [address] Room: [facility] Gender: Female Tapper Operator: : 1945 Requested By: YORDY GRIFFITH Order Number: [id number] Reading MD: MAXIMILIAN VALADEZ MD Measurements Intervals [place] Rate: 88 P: 28 ND: 182 QRS: [...] Scales MD CARDIAC ECG ORDERABLES Final Result [facility] EKG * (ABNORMAL) GLUCOSE, GLUCOMETER (02/24/2018 17:20 EDT) Glucose, Fingerstick 112(H) 70 - 100 mg/dl 02/24/2018 17:25 EDT [facility] [place] ID [id number] 02/24/2018 17:25 EDT [facility] Comment:Test Performed by [facility] Services BLOOD SPECIMEN / Unknown 02/24/2018 17:20 EDT 02/24/2018 17:25 EDT us Tyrell Vela MD CHEMISTRY & BLOOD GAS ORD ERABLES Final Result [facility] [address] [place] [address] * (ABNORMAL) GLUCOSE, GLUCOMETER (02/24/2018 15:39 EDT) Glucose, Fingerstick 131(H) 70 - 100 mg/dl 02/24/2018 15:40 EDT [facility] [place] ID [id number] 02/24/2018 15:40 EDT [facility] Comment:Test Performed by [employer] Services BLOOD SPECIMEN / Unknown 02/24/2018 15:39 EDT 02/24/2018 15:40 EDT us Tyrell Vela MD CHEMISTRY & BLOOD GAS ORD ERABLES Final Result Performing Organization Address [facility] Co de Phone Number [facility] [address] [place] [address] * (ABNORMAL) GLUCOSE, GLUCOMETER (02/24/2018 14:29 EDT) Glucose, Fingerstick 164(H) 70 - 100 mg/dl 02/24/2018 14:34 EDT [facility] [place] ID [id number] 02/24/2018 14:34 EDT [facility] Comment:[facility] BLOOD SPECIMEN / Unknown 02/24/2018 14:29 EDT 02/24/2018 14:34 EDT us Tyrell Vela MD CHEMISTRY & BLOOD GAS ORD ERABLES Final Result Performing Organization Address [facility] Co de Phone Number [facility] [address] [place] [address] * PTT (02/24/2018 13:13 EDT) PTT 27 26 - 37 secs 02/24/2018 14:25 EDT [facility] Blood specimen (specimen) BLOOD SPECIMEN / Unknown 02/24/2018 13:13 EDT 02/24/2018 13:53 EDT us Nacho Scales MD HEMATOLOGY & PF4 ORDERABLES Final Result Performing Organization Address City/[facility]/ZIP Co de Phone Number [facility] [address] [place] [address] * (ABNORMAL) PROTIME (02/24/2018 13:13 EDT) Pro Time 13.6(H) 10.3 - 13.4 secs 02/24/2018 14:24 EDT [facility] I.N.R. 1.2(H) 0.9 - 1.1 Ratio 02/24/2018 14:24 EDT [facility] Comment: Moderate Intensity Coumadin INR = 2.0-3.0 Adjustments in anticoagulant therapy dose should be based upon the INR and NOT the Pro Time. Blood specimen (specimen) BLOOD SPECIMEN / Unknown 02/24/2018 13:13 EDT 02/24/2018 13:53 EDT Nacho Scales MD HEMATOLOGY & PF4 ORDERABLES Final Result Performing Organization Address [facility] de Phone Number [facility] [address] [place] [address] * (ABNORMAL) ALBUMIN (02/24/2018 13:13 EDT) Albumin 2.4(L) 3.4 - 4.9 g/dl 02/24/2018 14:25 EDT [facility] Blood specimen (specimen) BLOOD SPECIMEN / Unknown 02/24/2018 13:13 EDT 02/24/2018 13:53 EDT Nacho Scales MD CHEMISTRY & BLOOD GAS ORDERA BLES Final Result Performing Organization Address [facility] de Phone Number [facility] [address] [place] [address] * BILIRUBIN DIRECT/INDIRECT (02/24/2018 13:13 EDT) Conjugated Bilirubin 0.0 0.0 - 0.3 mg/dl 02/24/2018 14:25 EDT [facility] Unconjugated Bilirubin 0.4 0.0 - 1.1 mg/dl 02/24/2018 14:25 EDT [facility] Blood specimen (specimen) BLOOD SPECIMEN / Unknown 02/24/2018 13:13 EDT 02/24/2018 13:53 EDT us Nacho Scales MD CHEMISTRY & BLOOD GAS ORDERA BLES Final Result Performing Organization Address [facility] Co de Phone Number [facility] [address] [place] [address] * (ABNORMAL) PROTEIN, TOTAL (02/24/2018 13:13 EDT) Total Protein 4.8(L) 6.3 - 8.2 g/dl 02/24/2018 14:25 EDT [facility] Blood specimen (specimen) BLOOD SPECIMEN / Unknown 02/24/2018 13:13 EDT 02/24/2018 13:53 EDT us Nacho Scales MD CHEMISTRY & BLOOD GAS ORDERA BLES Final Result Performing Organization Address [facility] Co de Phone Number [facility] [address] [place] [address] * ALKALINE PHOSPHATASE (02/24/2018 13:13 EDT) Total Alkaline Phosphatase 81 38 - 126 U/L 02/24/2018 14:25 EDT [facility] Blood specimen (specimen) BLOOD SPECIMEN / Unknown 02/24/2018 13:13 EDT 02/24/2018 13:53 EDT us Nacho Scales MD CHEMISTRY & BLOOD GAS ORDERA BLES Final Result Performing Organization Address [facility] Co de Phone Number [facility] [address] [place] [address] * AMMONIA (02/24/2018 13:13 EDT) Ammonia 20 <34 umol/L 02/24/2018 13:49 EDT [facility] Blood specimen (specimen) BLOOD SPECIMEN / Unknown 02/24/2018 13:13 EDT 02/24/2018 13:29 EDT us Nacho Scales MD CHEMISTRY & BLOOD GAS ORDERA BLES Final Result [facility] [address] [place] [address] * ALT (02/24/2018 13:13 EDT) ALT 37 <53 U/L 02/24/2018 14:25 EDT [facility] Blood specimen (specimen) BLOOD SPECIMEN / Unknown 02/24/2018 13:13 EDT 02/24/2018 13:53 EDT Nacho Scales MD CHEMISTRY & BLOOD GAS ORDERA BLES Final Result Performing Organization Address [facility]/ZIP Co de Phone Number [facility] [address] [place] [address] * (ABNORMAL) AST (02/24/2018 13:13 EDT) AST 50(H) 15 - 46 U/L 02/24/2018 14:25 EDT [facility] Blood specimen (specimen) BLOOD SPECIMEN / Unknown 02/24/2018 13:13 EDT 02/24/2018 13:53 EDT Nacho Scales MD CHEMISTRY & BLOOD GAS ORDERA BLES Final Result Performing Organization Address [facility] Co de Phone Number [facility] [address] [place] [address] * (ABNORMAL) GLUCOSE, GLUCOMETER (02/24/2018 12:28 EDT) Glucose, Fingerstick 103(H) 70 - 100 mg/dl 02/24/2018 12:30 EDT [facility] [place] [id number] 02/24/2018 12:30 EDT [facility] Comment:Test Performed by [facility] Services BLOOD SPECIMEN / Unknown 02/24/2018 12:28 EDT 02/24/2018 12:30 EDT Tyrell Vela MD CHEMISTRY & BLOOD GAS ORD ERABLES Final Result Performing Organization Address [facility] Co de Phone Number [facility] [address] [place] [address] * ECG REPORT - SCANNED (02/24/2018 12:00 EDT) 02/24/2018 12:0 0 EDT us Scan 2 Auto Damage Estimator PROCEDURE/MINOR SURGICAL OR DERABLES Final Result * URINE CULTURE IF UA POSITIVE - NON POCT URINALYSIS ONLY (02/24/2018 11:58 EDT) Culture if Indicated Culture not indicated by urinalysis results. 02/24/2018 13:15 EDT [facility] Urine specimen (specimen) TOPOGRAPHY UNKNOWN / Unknown 02/24/2018 11:58 EDT 02/24/2018 12:20 EDT us Nacho Scales MD MICROBIOLOGY - GENERAL ORDER LEAH Final Result Performing Organization Address [facility] Co de Phone Number [facility] [address] [place] [address] * (ABNORMAL) UA, CHEMICAL AND SEDIMENT ANALYSIS (DIPSTICK AND MICROSCOPIC) (02/24/2018 11:58 EDT) Color, UA Yellow 02/24/2018 13:15 [facility] Clarity, UA Clear 02/24/2018 13:15 [facility] Glucose, UA Neg Neg 02/24/2018 13:15 [facility] Bilirubin, UA Neg Neg 02/24/2018 13:15 [facility] Ketones, UA Neg Neg 02/24/2018 13:15 [facility] Refractometer SG,Urine 1.042(H) 1.001 - 1.035 02/24/2018 13:15 [facility] Comment: Results greater than 1.035 suggest possible interference from glucose or radiographic dye. Blood, UA Neg Neg 02/24/2018 13:15 [facility] pH, UA 6.0 4.6 - 8.0 02/24/2018 13:15 [facility] Protein, UA 1+(A) Neg 02/24/2018 13:15 [facility] Urobilinogen, UA Normal Normal E.U./dl 02/24/2018 13:15 [facility] Nitrite, UA Neg Neg 02/24/2018 13:15 [facility] Leuk Esterase Neg Neg 02/24/2018 13:15 [facility] UA Method Used 02/24/2018 10:39 [facility] Comment: Testing performed using [employer] [id number]. Urine RBC Count Automated 3 to 10(A) 0 to 2 /HPF 02/24/2018 13:15 [facility] Urine WBC Count Automated 0 to 3 0 to 3 /HPF 02/24/2018 13:15 [facility] Urine Squamous Epithelial Cell Count, Automated Few(A) None seen /LPF 02/24/2018 13:15 [facility] Urine Hyaline Casts, Automated < or = 10 < or = 10 /LPF 02/24/2018 13:15 [facility] Urine Bacteria Count, Automated None seen None seen 02/24/2018 13:15 [facility] UA Comment Sediment results 02/24/2018 13:15 [facility] Comment: are unreliable on urines unrefrig >2hrs or refrig >8hrs. Urine specimen (specimen) URINE / Unknown 02/24/2018 11:58 EDT 02/24/2018 12:20 EDT us Nacho Scales MD URINALYSIS ORDERABLES Final Result [facility] [address] [place] [address] * (ABNORMAL) GLUCOSE, GLUCOMETER (02/24/2018 10:29 EDT) Glucose, Fingerstick 107(H) 70 - 100 mg/dl 02/24/2018 10:31 [facility] [place] [id number] 02/24/2018 10:31 EDT [facility] Comment:Test Performed by [facility]sing Services BLOOD SPECIMEN / Unknown 02/24/2018 10:29 EDT 02/24/2018 10:31 EDT us Tyrell Vela MD CHEMISTRY & BLOOD GAS ORD ERABLES Final Result [facility] [address] [place] [address] * GLUCOSE, GLUCOMETER (02/24/2018 8:28 EDT) Glucose, Fingerstick 100 70 - 100 mg/dl 02/24/2018 8:30 EDT [facility] [address] [place] [id number] 02/24/2018 8:30 EDT [facility] Comment:[facility] BLOOD SPECIMEN / Unknown 02/24/2018 8:28 EDT 02/24/2018 8:30 EDT us Tyrell Vela MD CHEMISTRY & BLOOD GAS ORD ERABLES Final Result Performing Organization Address City/[facility]/ZIP Co de Phone Number [facility] [address] [place] [address] * (ABNORMAL) GLUCOSE, GLUCOMETER (02/24/2018 6:34 EDT) Glucose, Fingerstick 114(H) 70 - 100 mg/dl 02/24/2018 6:39 EDT [facility] [address] [place] [id number] 02/24/2018 6:39 EDT [facility] Comment:[facility] BLOOD SPECIMEN / Unknown 02/24/2018 6:34 EDT 02/24/2018 6:39 EDT us Tyrell Vela MD CHEMISTRY & BLOOD GAS ORD ERABLES Final Result [facility] [address] [place] [address] * SMEAR REVIEW (02/24/2018 5:30 EDT) Smear scan only: Slide was examined by a technologist to verify the WBC and/or platelet count. 02/24/2018 8:11 [facility] Comment:LARGE PLATELETS PRES ENT BLOOD SPECIMEN / Unknown 02/24/2018 5:30 EDT 02/24/2018 6:08 EDT Adryan Beasley MD HEMATOLOGY & PF4 ORDERABLES Final Result [facility] [address] [place] [address] * (ABNORMAL) COMPLETE BLOOD COUNT (02/24/2018 5:30 EDT) Pathologist [facility] WBC 15.67(H) 4.0 - 12.4 K/cmm 02/24/2018 8:10 [facility] RBC 2.88(L) 3.86 - 5.04 M/cmm 02/24/2018 6:43 [facility] Hemoglobin 9.9(L) 11.6 - 15.2 gm/dl 02/24/2018 6:43 [facility] HCT 29.9(L) 34.9 - 44.4 % 02/24/2018 6:43 [facility] MCV 104(H) 81 - 98 fl 02/24/2018 6:43 [facility] MCH 34.4(H) 26.7 - 33.3 pg 02/24/2018 6:43 [facility] MCHC 33.1 32.1 - 35.9 gm/dl 02/24/2018 6:43 [facility] RDW-CV 13.9 <14.7 % 02/24/2018 6:43 [facility] RDW-SD 53.1(H) <50.4 fl 02/24/2018 6:43 [facility] PLT 81(L) 141 - 377 K/cmm 02/24/2018 8:10 [facility] MPV 12.4 9.5 - 12.7 fl 02/24/2018 8:10 EDT [facility] Blood specimen (specimen) BLOOD SPECIMEN / Unknown 02/24/2018 5:30 EDT 02/24/2018 6:08 EDT us Adryan Beasley MD HEMATOLOGY & PF4 ORDERABLES Final Result Performing Organization Address City/[facility]/ZIP Co de Phone Number [facility] [address] [place] [address] * CREATININE (02/24/2018 5:30 EDT) Creatinine 0.75 0.52 - 1.04 mg/dl 02/24/2018 6:46 EDT [facility] GFR, Calculated 80 >60 ml/min/1.7 3m2 02/24/2018 6:46 EDT [facility] Comment: eGFR calculated using CKD-EPI equation for non Americans. Multiply eGFR by 1.16 for Americans. Blood specimen (specimen) BLOOD SPECIMEN / Unknown 02/24/2018 5:30 EDT 02/24/2018 6:08 EDT Result Wood Beasley MD CHEMISTRY & BLOOD GAS ORDERA BLES Final Result Performing Organization Address [facility]/ZIP Co de Phone Number [facility] [address] [place] [address] * BUN (02/24/2018 5:30 EDT) BUN 21 10 - 26 mg/dl 02/24/2018 6:46 EDT [facility] Blood specimen (specimen) BLOOD SPECIMEN / Unknown 02/24/2018 5:30 EDT 02/24/2018 6:08 EDT us Adryan Beasley MD CHEMISTRY & BLOOD GAS ORDERA BLES Final Result Performing Organization Address City/[facility]/ZIP Co de Phone Number [facility] [address] [place] [address] * ELECTROLYTES (02/24/2018 5:30 EDT) Sodium 139 136 - 145 mEq/L 02/24/2018 6:46 EDT [facility] Potassium 4.0 3.5 - 5.0 mEq/L 02/24/2018 6:46 EDT [facility] Chloride 106 96 - 110 mEq/L 02/24/2018 6:46 EDT [facility] CO2 28 22 - 32 mEq/L 02/24/2018 6:46 EDT [facility] Blood specimen (specimen) BLOOD SPECIMEN / Unknown 02/24/2018 5:30 EDT 02/24/2018 6:08 EDT us Adryan Beasley MD CHEMISTRY & BLOOD GAS ORDERA BLES Final Result [facility] [address] [place] [address] * (ABNORMAL) GLUCOSE, GLUCOMETER (02/24/2018 4:23 EDT) Glucose, Fingerstick 111(H) 70 - 100 mg/dl 02/24/2018 4:27 EDT [facility] [place] [id number] 02/24/2018 4:27 EDT [facility] Comment:Test Performed by [facility] BLOOD SPECIMEN / Unknown 02/24/2018 4:23 EDT 02/24/2018 4:27 EDT us Tyrell Vela MD CHEMISTRY & BLOOD GAS ORD ERABLES Final Result [facility] [address] [place] [address] * (ABNORMAL) GLUCOSE, GLUCOMETER (02/24/2018 2:23 EDT) Glucose, Fingerstick 124(H) 70 - 100 mg/dl 02/24/2018 2:44 EDT [facility] [place] [id number] 02/24/2018 2:44 EDT [facility] Comment:Test Performed by [facility] BLOOD SPECIMEN / Unknown 02/24/2018 2:23 EDT 02/24/2018 2:44 EDT us Tyrell Vela MD CHEMISTRY & BLOOD GAS ORD ERABLES Final Result Performing Organization Address City/[facility]/ZIP Co de Phone Number [facility] [address] [place] [address] * (ABNORMAL) GLUCOSE, GLUCOMETER (02/24/2018 1:22 EDT) Glucose, Fingerstick 115(H) 70 - 100 mg/dl 02/24/2018 6:26 EDT [facility] [place] [id number] 02/24/2018 6:26 EDT [facility] Comment:Test Performed by [facility] BLOOD SPECIMEN / Unknown 02/24/2018 1:22 EDT 02/24/2018 6:26 EDT us Tyrell Vela MD CHEMISTRY & BLOOD GAS ORD ERABLES Final Result Performing Organization Address [facility]/ZIP Co de Phone Number [facility] [address] [place] [address] * (ABNORMAL) GLUCOSE, GLUCOMETER (02/24/2018 0:18 EDT) Glucose, Fingerstick 103(H) 70 - 100 mg/dl 02/24/2018 0:23 EDT [facility] [place] [id number] 02/24/2018 0:23 EDT [facility] Comment:Test Performed by [facility] BLOOD SPECIMEN / Unknown 02/24/2018 0:18 EDT 02/24/2018 0:23 EDT us Tyrell Vela MD CHEMISTRY & BLOOD GAS ORD ERABLES Final Result Performing Organization Address City/[facility]/ZIP Co de Phone Number [facility] [address] [place] [address] * (ABNORMAL) GLUCOSE, GLUCOMETER (02/23/2018 23:07 EDT) Glucose, Fingerstick 112(H) 70 - 100 mg/dl 02/23/2018 23:07 EDT [facility] [place] [id number] 02/23/2018 23:07 EDT [facility] Comment:Test Performed by [facility] Services BLOOD SPECIMEN / Unknown 02/23/2018 23:07 EDT 02/23/2018 23:08 EDT us Tyrell Vela MD CHEMISTRY & BLOOD GAS ORD ERABLES Final Result Performing Organization Address [facility] Co de Phone Number [facility] [address] [place] [address] * (ABNORMAL) GLUCOSE, GLUCOMETER (02/23/2018 22:00 EDT) Glucose, Fingerstick 117(H) 70 - 100 mg/dl 02/23/2018 22:05 EDT [facility] [place] [id number] 02/23/2018 22:05 EDT [facility] Comment:Test Performed by [facility] Services BLOOD SPECIMEN / Unknown 02/23/2018 22:00 EDT 02/23/2018 22:05 EDT us Tyrell Vela MD CHEMISTRY & BLOOD GAS ORD ERABLES Final Result Performing Organization Address [facility] de Phone Number [facility] [address] [place] [address] * (ABNORMAL) BLOOD GAS, G3 ISTAT (02/23/2018 21:50 EDT) pH, i-STAT 7.47(H) 7.35 - 7.45 02/23/2018 21:55 EDT [facility] pCO2, i-STAT 39 35 - 45 mmHg 02/23/2018 21:55 EDT [facility] pO2, i-STAT 84 80 - 105 mmHg 02/23/2018 21:55 T [facility] TCO2, i-STAT 29(H) 23 - 27 mEq/L 02/23/2018 21:55 EDT [facility] O2 Saturation 97 95 - 98 % 02/23/2018 21:55 EDT [facility] Base Excess, i-STAT 4 02/23/2018 21:55 EDT [facility] FIO2 24 02/23/2018 21:55 EDT [facility] Sample Type ARTERIAL 02/23/2018 21:55 EDT [facility] 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 BLOOD SPECIMEN / Unknown 02/23/2018 21:50 EDT 02/23/2018 21:55 EDT us Tyrell Vela MD CHEMISTRY & BLOOD GAS ORD ERABLES Final Result [facility] [address] [place] [address] * (ABNORMAL) GLUCOSE, GLUCOMETER (02/23/2018 20:59 EDT) Glucose, Fingerstick 132(H) 70 - 100 mg/dl 02/23/2018 21:24 EDT [facility] [place] [id number] 02/23/2018 21:24 EDT [facility] Comment:Test Performed by [facility] BLOOD SPECIMEN / Unknown 02/23/2018 20:59 EDT 02/23/2018 21:24 EDT us Tyrell Vela MD CHEMISTRY & BLOOD GAS ORD ERABLES Final Result [facility] [address] [place] [address] * GLUCOSE, GLUCOMETER (02/23/2018 19:59 EDT) Glucose, Fingerstick 92 70 - 100 mg/dl 02/23/2018 20:04 EDT [facility] [place] [id number] 02/23/2018 20:04 EDT [facility] Comment:Test Performed by [facility] BLOOD SPECIMEN / Unknown 02/23/2018 19:59 EDT 02/23/2018 20:04 EDT us Tyrell Vela MD CHEMISTRY & BLOOD GAS ORD ERABLES Final Result [facility] [address] [place] [address] * (ABNORMAL) GLUCOSE, GLUCOMETER (02/23/2018 17:43 EDT) Glucose, Fingerstick 104(H) 70 - 100 mg/dl 02/23/2018 17:48 EDT [facility] [place] ID [id number] 02/23/2018 17:48 EDT [facility] Comment:Test Performed by [facility] BLOOD SPECIMEN / Unknown 02/23/2018 17:43 EDT 02/23/2018 17:48 EDT us Tyrell Vela MD CHEMISTRY & BLOOD GAS ORD ERABLES Final Result Performing Organization Address City/[facility]/ZIP Co de Phone Number [facility] [address] [place] [address] * (ABNORMAL) GLUCOSE, GLUCOMETER (02/23/2018 16:21 EDT) Glucose, Fingerstick 112(H) 70 - 100 mg/dl 02/23/2018 16:22 EDT [facility] [place] [id number] 02/23/2018 16:22 EDT [facility] Comment:Test Performed by [facility] BLOOD SPECIMEN / Unknown 02/23/2018 16:21 EDT 02/23/2018 16:22 EDT us Tyrell Veal MD CHEMISTRY & BLOOD GAS ORD ERABLES Final Result [facility] [address] [place] [address] * CREATININE (02/23/2018 14:36 EDT) Creatinine 0.75 0.52 - 1.04 mg/dl 02/23/2018 15:32 EDT [facility] GFR, Calculated 80 >60 ml/min/1.7 3m2 02/23/2018 15:32 EDT [facility] Comment: eGFR calculated using CKD-EPI equation for non Americans. Multiply eGFR by 1.16 for Americans. Blood specimen (specimen) BLOOD SPECIMEN / Unknown 02/23/2018 14:36 EDT 02/23/2018 15:09 EDT us Adryan Beasley MD CHEMISTRY & BLOOD GAS ORDERA BLES Final Result Performing Organization Address City/[facility] Co de Phone Number [facility] [address] [place] [address] * PHOSPHORUS (02/23/2018 14:36 EDT) Phosphorus 3.6 2.5 - 4.5 mg/dl 02/23/2018 15:32 EDT [facility] Blood specimen (specimen) BLOOD SPECIMEN / Unknown 02/23/2018 14:36 EDT 02/23/2018 15:09 EDT us Adryan Beasley MD CHEMISTRY & BLOOD GAS ORDERA BLES Final Result Performing Organization Address [facility] Co de Phone Number [facility] [address] [place] [address] * MAGNESIUM (02/23/2018 14:36 EDT) Magnesium 2.2 1.7 - 2.8 mg/dl 02/23/2018 15:32 EDT [facility] Blood specimen (specimen) BLOOD SPECIMEN / Unknown 02/23/2018 14:36 EDT 02/23/2018 15:09 EDT us Adryan Beasley MD CHEMISTRY & BLOOD GAS ORDERA BLES Final Result Performing Organization Address [facility] Co de Phone Number [facility] [address] [place] [address] * CALCIUM, IONIZED (02/23/2018 14:36 EDT) Calcium, Ionized 1.14 1.12 - 1.32 mmol/L 02/23/2018 15:18 EDT [facility] Blood specimen (specimen) BLOOD SPECIMEN / Unknown 02/23/2018 14:36 EDT 02/23/2018 15:09 EDT us Adryan Beasley MD CHEMISTRY & BLOOD GAS ORDERA BLES Final Result Performing Organization Address [facility] de Phone Number [facility] [address] [place] [address] * ELECTROLYTES (02/23/2018 14:36 EDT) Sodium 139 136 - 145 mEq/L 02/23/2018 15:32 EDT [facility] Potassium 4.0 3.5 - 5.0 mEq/L 02/23/2018 15:32 EDT [facility] Chloride 106 96 - 110 mEq/L 02/23/2018 15:32 EDT [facility] CO2 28 22 - 32 mEq/L 02/23/2018 15:32 EDT [facility] Blood specimen (specimen) BLOOD SPECIMEN / Unknown 02/23/2018 14:36 EDT 02/23/2018 15:09 EDT us Adryan Beasley MD CHEMISTRY & BLOOD GAS ORDERA BLES Final Result Performing Organization Address [facility] Co de Phone Number [facility] [address] [place] [address] * ECG REPORT - SCANNED (02/23/2018 14:22 EDT) 02/23/2018 14:2 2 EDT us Scan 2 Auto Damage Estimator PROCEDURE/MINOR SURGICAL OR DERABLES Final Result * (ABNORMAL) GLUCOSE, GLUCOMETER (02/23/2018 14:10 EDT) Glucose, Fingerstick 110(H) 70 - 100 mg/dl 02/23/2018 14:14 EDT [facility] [place] [id number] 02/23/2018 14:14 EDT [facility] Comment:Test Performed by Olinda [facility] BLOOD SPECIMEN / Unknown 02/23/2018 14:10 EDT 02/23/2018 14:14 EDT Tyrell Vela MD CHEMISTRY & BLOOD GAS ORD ERABLES Final Result Performing Organization Address City/[facility]/ZIP Co de Phone Number [facility] [address] [place] [address] * (ABNORMAL) GLUCOSE, GLUCOMETER (02/23/2018 11:58 EDT) Glucose, Fingerstick 136(H) 70 - 100 mg/dl 02/23/2018 12:00 EDT [facility] [place] [id number] 02/23/2018 12:00 EDT [facility] Comment:Test Performed by [facility] [employer] BLOOD SPECIMEN / Unknown 02/23/2018 11:58 EDT 02/23/2018 12:00 EDT Tyrell Vela MD CHEMISTRY & BLOOD GAS ORD ERABLES Final Result Performing Organization Address [facility]/ZIP Co de Phone Number [facility] [address] [place] [address] * (ABNORMAL) GLUCOSE, GLUCOMETER (02/23/2018 9:41 EDT) Glucose, Fingerstick 133(H) 70 - 100 mg/dl 02/23/2018 9:42 EDT [facility] [place] [id number] 02/23/2018 9:42 EDT [facility] Comment:Test Performed by [facility] BLOOD SPECIMEN / Unknown 02/23/2018 9:41 EDT 02/23/2018 9:42 EDT Tyrell Vela MD CHEMISTRY & BLOOD GAS ORD ERABLES Final Result [facility] [address] [place] [address] * BLOOD GAS, G3 ISTAT (02/23/2018 8:25 EDT) pH, i-STAT 7.44 7.35 - 7.45 02/23/2018 8:30 EDT [facility] pCO2, i-STAT 39 35 - 45 mmHg 02/23/2018 8:30 [facility] pO2, i-STAT Results not available 80 - 105 mmHg 02/23/2018 8:30 [facility] TCO2, i-STAT 27 23 - 27 mEq/L 02/23/2018 8:30 [facility] O2 Saturation Results not available 95 - 98 % 02/23/2018 8:30 [facility] Base Excess, i-STAT 2 02/23/2018 8:30 [facility] Sample Type ARTERIAL 02/23/2018 8:30 [facility] 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 BLOOD SPECIMEN / Unknown 02/23/2018 8:25 EDT 02/23/2018 8:30 EDT us Tyrell Vela MD CHEMISTRY & BLOOD GAS ORD ERABLES Final Result Performing Organization Address City/[facility] Co de Phone Number [facility] [address] [place] [address] * (ABNORMAL) GLUCOSE, GLUCOMETER (02/23/2018 8:07 EDT) Glucose, Fingerstick 128(H) 70 - 100 mg/dl 02/23/2018 8:34 EDT [facility] [place] [id number] 02/23/2018 8:34 EDT [facility] Comment:Test Performed by Nu rsing Services BLOOD SPECIMEN / Unknown 02/23/2018 8:07 EDT 02/23/2018 8:34 EDT us Tyrell Vela MD CHEMISTRY & BLOOD GAS ORD ERABLES Final Result Performing Organization Address City/[facility]/ZIP Co de Phone Number [facility] [address] [place] [address] * PORTABLE CHEST 1 VIEW (02/23/2018 6:44 [...] appearance of the chest. Wm Magana PA-C IM[facility]icki DIAGNOSTIC IMAGING OR DERABLES Final Result * (ABNORMAL) GLUCOSE, GLUCOMETER (02/23/2018 6:05 EDT) Glucose, Fingerstick 148(H) 70 - 100 mg/dl 02/23/2018 6:07 EDT [facility] [place] [id number] 02/23/2018 6:07 EDT [facility] Comment:Test Performed by [facility] Services BLOOD SPECIMEN / Unknown 02/23/2018 6:05 EDT 02/23/2018 6:07 EDT us Tyrell Vela MD CHEMISTRY & BLOOD GAS ORD ERABLES Final Result [facility] [address] [place] [address] * EKG 12-LEAD (02/23/2018 5:22 EDT) 02/23/2018 5:22 EDT Narrative [facility] - 02/24/2018 11:56 EDT ? [facility] ? Test Date: ?2018-02-23 Pat Name: ? TROY ANDERS ? Department: ?? Vu 3 ? Room: ? M303 Gender: ? Female ? Tapper Operator: ?? [id number] : ?1945 ? Requested By: TIKI Ballard Order Number: [id number] ? Aliyah WOODS: ?? JESUS SANTAMARIA MD ? Measurements Intervals ?Ripton ? Rate: ? 85 ? P: ?30 [...] Note Jesus Santamaria MD - 02/24/2018 [facility] Test Date: 2018-02-23 Pat Name: TROY ANDERS Department: [place] [address] Room: 03 Gender: Female Tapper Operator: [id number] : 1945 Requested By: TIKI Ballard Order Number: [id number] Aliyah MD: JESUS DAVISON Measurements Intervals Ripton Rate: 85 P: 30 ND: 144 QRS: [...] ORDERABLES Fi nal Result Performing Organization Address City/[facility]/ZIP Co de Phone Number [facility] * CREATININE (02/23/2018 4:53 EDT) Creatinine 0.68 0.52 - 1.04 mg/dl 02/23/2018 5:21 EDT [facility] Comment:Slight hemolysis GFR, Calculated 88 >60 ml/min/1.7 3m2 02/23/2018 5:21 EDT [facility] Comment: eGFR calculated using CKD-EPI equation for non Americans. Multiply eGFR by 1.16 for Americans. Blood specimen (specimen) BLOOD SPECIMEN / Unknown 02/23/2018 4:53 EDT 02/23/2018 4:56 EDT us Tyrell Vela MD CHEMISTRY & BLOOD GAS ORD ERABLES Final Result Performing Organization Address [facility] Co de Phone Number [facility] [address] [place] [address] * BUN (02/23/2018 4:53 EDT) BUN 18 10 - 26 mg/dl 02/23/2018 5:21 EDT [facility] Comment: Slight hemolysis Results may be affected due to hemolysis. Blood specimen (specimen) BLOOD SPECIMEN / Unknown 02/23/2018 4:53 EDT 02/23/2018 4:56 EDT us Tyrell Vela MD CHEMISTRY & BLOOD GAS ORD ERABLES Final Result Performing Organization Address [facility] Co de Phone Number [facility] [address] [place] [address] * ELECTROLYTES (02/23/2018 4:53 EDT) Sodium 139 136 - 145 mEq/L 02/23/2018 5:21 EDT [facility] Comment:Slight hemolysis Potassium 4.6 3.5 - 5.0 mEq/L 02/23/2018 5:21 EDT [facility] Comment: Slight hemolysis Hemolysis may elevate potassium result. Chloride 109 96 - 110 mEq/L 02/23/2018 5:21 EDT [facility] Comment:Slight hemolysis CO2 25 22 - 32 mEq/L 02/23/2018 5:21 EDT [facility] Comment:Slight hemolysis Blood specimen (specimen) BLOOD SPECIMEN / Unknown 02/23/2018 4:53 EDT 02/23/2018 4:56 EDT us Tyrell Vela MD CHEMISTRY & BLOOD GAS ORD ERABLES Final Result Performing Organization Address City/[facility]/ZIP Co de Phone Number [facility] [address] [place] [address] * (ABNORMAL) GLUCOSE, GLUCOMETER (02/23/2018 3:51 EDT) Glucose, Fingerstick 141(H) 70 - 100 mg/dl 02/23/2018 3:53 EDT [facility] [place] [id number] 02/23/2018 3:53 EDT [facility] Comment:Test Performed by Nu ing Services BLOOD SPECIMEN / Unknown 02/23/2018 3:51 EDT 02/23/2018 3:53 EDT us Tyrell Vela MD CHEMISTRY & BLOOD GAS ORD ERABLES Final Result [facility] [address] [place] [address] * SLIDE REQUEST (02/23/2018 2:55 EDT) Note A smear is filed in the Hematology lab 02/23/2018 4:12 EDT [facility] BLOOD SPECIMEN / Unknown 02/23/2018 2:55 EDT 02/23/2018 3:07 EDT us Wm Magana PA-C HEMATOLOGY & PF4 ORDERABL ES Final Result Performing Organization Address [facility]/ZIP Co de Phone Number [facility] [address] [place] [address] * (ABNORMAL) COMPLETE BLOOD COUNT (02/23/2018 2:55 EDT) WBC 23.20(H) 4.0 - 12.4 K/cmm 02/23/2018 3:30 EDT [facility] RBC 3.50(L) 3.86 - 5.04 M/cmm 02/23/2018 3:30 EDT [facility] Hemoglobin 12.1 11.6 - 15.2 gm/dl 02/23/2018 3:30 EDT [facility] HCT 35.2 34.9 - 44.4 % 02/23/2018 3:30 T [facility] MCV 101(H) 81 - 98 fl 02/23/2018 3:30 EDT [facility] MCH 34.6(H) 26.7 - 33.3 pg 02/23/2018 3:30 EDT [facility] MCHC 34.4 32.1 - 35.9 gm/dl 02/23/2018 3:30 T [facility] RDW-CV 13.5 <14.7 % 02/23/2018 3:30 T [facility] RDW-SD 49.5 <50.4 fl 02/23/2018 3:30 T [facility] PLT 167 141 - 377 K/cmm 02/23/2018 3:30 EDT [facility] MPV 11.9 9.5 - 12.7 fl 02/23/2018 3:30 [facility] Blood specimen (specimen) BLOOD SPECIMEN / Unknown 02/23/2018 2:55 EDT 02/23/2018 3:07 EDT us Adryan Beasley MD HEMATOLOGY & PF4 ORDERABLES Final Result Performing Organization Address City/[facility]/ZIP Co de Phone Number [facility] [address] [place] [address] * (ABNORMAL) GLUCOSE, GLUCOMETER (02/23/2018 2:02 EDT) Glucose, Fingerstick 142(H) 70 - 100 mg/dl 02/23/2018 2:07 EDT [facility] [place] [id number] 02/23/2018 2:07 EDT [facility] Comment:Test Performed by Nu rsing Services BLOOD SPECIMEN / Unknown 02/23/2018 2:02 EDT 02/23/2018 2:07 EDT Tyrell Vela MD CHEMISTRY & BLOOD GAS ORD ERABLES Final Result [facility] [address] [place] [address] * (ABNORMAL) GLUCOSE, GLUCOMETER (02/23/2018 0:01 EDT) Glucose, Fingerstick 143(H) 70 - 100 mg/dl 02/23/2018 0:07 EDT [facility] [place] [id number] 02/23/2018 0:07 EDT [facility] Comment:Test Performed by rsing Services BLOOD SPECIMEN / Unknown 02/23/2018 0:01 EDT 02/23/2018 0:07 EDT us Tyrell Vela MD CHEMISTRY & BLOOD GAS ORD ERABLES Final Result [facility] [address] [place] [address] * (ABNORMAL) GLUCOSE, GLUCOMETER (02/22/2018 22:00 EDT) Glucose, Fingerstick 149(H) 70 - 100 mg/dl 02/22/2018 22:00 EDT [facility] [place] [id number] 02/22/2018 22:00 EDT [facility] Comment:Test Performed by Nu rsing Services BLOOD SPECIMEN / Unknown 02/22/2018 22:00 EDT 02/22/2018 22:01 EDT us Tyrell Vela MD CHEMISTRY & BLOOD GAS ORD ERABLES Final Result [facility] [address] [place] [address] * (ABNORMAL) BLOOD GAS, G3 ISTAT (02/22/2018 20:22 EDT) pH, i-STAT 7.30(L) 7.35 - 7.45 02/22/2018 20:27 EDT [facility] pCO2, i-STAT 49(H) 35 - 45 mmHg 02/22/2018 20:27 [facility] pO2, i-STAT 61(L) 80 - 105 mmHg 02/22/2018 20:27 T [facility] TCO2, i-STAT 25 23 - 27 mEq/L 02/22/2018 20:27 [facility] O2 Saturation 88(L) 95 - 98 % 02/22/2018 20:27 [facility] Base Deficit, i-STAT 3 02/22/2018 20:27 [facility] FIO2 21 02/22/2018 20:27 [facility] Sample Type ARTERIAL 02/22/2018 20:27 [facility] 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 BLOOD SPECIMEN / Unknown 02/22/2018 20:22 EDT 02/22/2018 20:27 EDT us Tyrell Vela MD CHEMISTRY & BLOOD GAS ORD ERABLES Final Result [facility] [address] [place] [address] * (ABNORMAL) GLUCOSE, GLUCOMETER (02/22/2018 19:56 EDT) Glucose, Fingerstick 151(H) 70 - 100 mg/dl 02/22/2018 19:57 EDT [facility] [place] [id number] 02/22/2018 19:57 EDT [facility] Comment:Test Performed by Nu rsing Services BLOOD SPECIMEN / Unknown 02/22/2018 19:56 EDT 02/22/2018 19:57 EDT us Tyrell Vela MD CHEMISTRY & BLOOD GAS ORD ERABLES Final Result Performing Organization Address City/[facility]/ZIP Co de Phone Number [facility] [address] [place] [address] * (ABNORMAL) BLOOD GAS, G3 ISTAT (02/22/2018 18:56 EDT) pH, i-STAT 7.31(L) 7.35 - 7.45 02/22/2018 19:03 T [facility] pCO2, i-STAT 56(H) 35 - 45 mmHg 02/22/2018 19:03 [facility] pO2, i-STAT 109(H) 80 - 105 mmHg 02/22/2018 19:03 [facility] TCO2, i-STAT 30(H) 23 - 27 mEq/L 02/22/2018 19:03 [facility] O2 Saturation 98 95 - 98 % 02/22/2018 19:03 [facility] Base Excess, i-STAT 1 02/22/2018 19:03 [facility] Sample Type ARTERIAL 02/22/2018 19:03 [facility] 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 BLOOD SPECIMEN / Unknown 02/22/2018 18:56 EDT 02/22/2018 19:03 EDT us Tyrell Vela MD CHEMISTRY & BLOOD GAS ORD ERABLES Final Result Performing Organization Address City/[facility]/ZIP Co de Phone Number [facility] [address] [place] [address] * POTASSIUM (02/22/2018 18:49 EDT) Potassium 4.0 3.5 - 5.0 mEq/L 02/22/2018 19:14 EDT [facility] Blood specimen (specimen) BLOOD SPECIMEN / Unknown 02/22/2018 18:49 EDT 02/22/2018 19:00 EDT us Wm Magana PA-C CHEMISTRY & BLOOD GAS ORD ERABLES Final Result Performing Organization Address [facility] Co de Phone Number [facility] [address] [place] [address] * SLIDE REQUEST (02/22/2018 18:04 EDT) Pathologist [facility] Note A smear is filed in the Hematology lab 02/22/2018 19:10 EDT [facility] BLOOD SPECIMEN / Unknown 02/22/2018 18:04 EDT 02/22/2018 18:08 EDT us Wm Magana PA-C HEMATOLOGY & PF4 ORDERABL ES Final Result Performing Organization Address [facility] de Phone Number [facility] [address] [place] [address] * (ABNORMAL) COMPLETE BLOOD COUNT (02/22/2018 18:04 EDT) Pathologist [facility] WBC 22.68(H) 4.0 - 12.4 K/cmm 02/22/2018 18:29 T [facility] RBC 3.58(L) 3.86 - 5.04 M/cmm 02/22/2018 18:29 T [facility] Hemoglobin 12.2 11.6 - 15.2 gm/dl 02/22/2018 18:29 T [facility] HCT 36.3 34.9 - 44.4 % 02/22/2018 18:29 [facility] MCV 101(H) 81 - 98 fl 02/22/2018 18:29 [facility] MCH 34.1(H) 26.7 - 33.3 pg 02/22/2018 18:29 T [facility] MCHC 33.6 32.1 - 35.9 gm/dl 02/22/2018 18:29 EDT [facility] RDW-CV 13.6 <14.7 % 02/22/2018 18:29 EDT [facility] RDW-SD 50.1 <50.4 fl 02/22/2018 18:29 EDT [facility] PLT 191 141 - 377 K/cmm 02/22/2018 18:29 EDT [facility] MPV 12.2 9.5 - 12.7 fl 02/22/2018 18:29 EDT [facility] Blood specimen (specimen) BLOOD SPECIMEN / Unknown 02/22/2018 18:04 EDT 02/22/2018 18:08 EDT us Wm Magana PA-C HEMATOLOGY & PF4 ORDERABL ES Final Result [facility] [address] [place] [address] * SURGICAL PATHOLOGY (02/22/2018 18:03 EDT) Pathology Report: SURGICAL PATHOLOGY REPORT Reports generated via electronic interface contain original data; however they are lacking the format of the original report. Caution should be taken when reading/interpret ing unformatted reports. Name: ? ALBANIA ANDERSBrennan Singh ? Accession #: ? [id number] ? : ? 1945 (Age: 72) ??F [...] identified. No masses or lesions are identified. News Writer sections are submitted in 1 and 2. ELIUD Yates (ASCP) 02/23/2018 9:03 AM End of Report [facility] 02/22/2018 18:0 3 EDT 02/22/2018 18:03 EDT us Tyrell Vela MD PATHOLOGY ORDERABLES Mely carmona Result [facility] [address] [place] [address] * (ABNORMAL) GLUCOSE, GLUCOMETER (02/22/2018 18:01 EDT) Glucose, Fingerstick 143(H) 70 - 100 mg/dl 02/22/2018 18:06 EDT [facility] [place] [id number] 02/22/2018 18:06 EDT [facility] Comment:Test Performed by [facility] BLOOD SPECIMEN / Unknown 02/22/2018 18:01 EDT 02/22/2018 18:06 EDT us Tyrell Vela MD CHEMISTRY & BLOOD GAS ORD ERABLES Final Result Performing Organization Address City/[facility]/ZIP Co de Phone Number [facility] [address] [place] [address] * (ABNORMAL) GLUCOSE, GLUCOMETER (02/22/2018 15:53 EDT) Glucose, Fingerstick 137(H) 70 - 100 mg/dl 02/22/2018 15:57 EDT [facility] [address] [place] ID [id number] 02/22/2018 15:57 EDT [facility] Comment:Test Performed by Nu ing Services BLOOD SPECIMEN / Unknown 02/22/2018 15:53 EDT 02/22/2018 15:57 EDT us Tyrell Vela MD CHEMISTRY & BLOOD GAS ORD ERABLES Final Result Performing Organization Address [facility] Co de Phone Number [facility] [address] [place] [address] * (ABNORMAL) BLOOD GAS, G3 ISTAT (02/22/2018 13:50 EDT) pH, i-STAT 7.25(L) 7.35 - 7.45 02/22/2018 13:55 [facility] pCO2, i-STAT 60(H) 35 - 45 mmHg 02/22/2018 13:55 [facility] pO2, i-STAT 123(H) 80 - 105 mmHg 02/22/2018 13:55 [facility] TCO2, i-STAT 28(H) 23 - 27 mEq/L 02/22/2018 13:55 [facility] O2 Saturation 98 95 - 98 % 02/22/2018 13:55 [facility] Base Deficit, i-STAT 2 02/22/2018 13:55 [facility] FIO2 50 02/22/2018 13:55 [facility] Sample Type ARTERIAL 02/22/2018 13:55 [facility] 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 BLOOD SPECIMEN / Unknown 02/22/2018 13:50 EDT 02/22/2018 13:55 EDT us Tyrell Vela MD CHEMISTRY & BLOOD GAS ORD ERABLES Final Result Performing Organization Address City/[facility]/ZIP Co de Phone Number [facility] [address] [place] [address] * (ABNORMAL) GLUCOSE, GLUCOMETER (02/22/2018 13:47 EDT) Glucose, Fingerstick 129(H) 70 - 100 mg/dl 02/22/2018 13:48 EDT [facility] [place] [id number] 02/22/2018 13:48 EDT [facility] Comment:Test Performed by Nu ing Services BLOOD SPECIMEN / Unknown 02/22/2018 13:47 EDT 02/22/2018 13:48 EDT us Tyrell Vela MD CHEMISTRY & BLOOD GAS ORD ERABLES Final Result Performing Organization Address [facility] Co de Phone Number [facility] [address] [place] [address] * INPATIENT ADD-ON (02/22/2018 13:30 EDT) Tests to be added MAGNESIUM, PHOSPHOROU S 02/22/2018 13:26 EDT [facility] Number for problems [id number] 02/22/2018 13:47 EDT [facility] Accession number [id number] 02/22/2018 13:47 EDT [facility] TOPOGRAPHY UNKNOWN / Unknown 02/22/2018 13:30 EDT 02/22/2018 13:46 EDT Senait Mcclrue MD HEMATOLOGY & PF4 ORDERABLES Fi nal Result [facility] [address] [place] [address] * INPATIENT ADD-ON (02/22/2018 12:50 EDT) Tests to be added HEMOGLOBIN A1C 02/22/2018 12:52 EDT [facility] Number for problems [id number] 02/22/2018 13:09 EDT [facility] Accession number [id number] 02/22/2018 13:09 EDT [facility] TOPOGRAPHY UNKNOWN / Unknown 02/22/2018 12:50 EDT 02/22/2018 13:09 EDT us Adryan Beasley MD HEMATOLOGY & PF4 ORDERABLES Final Result Performing Organization Address [facility] Co de Phone Number [facility] [address] [place] [address] * MRSA PCR (02/22/2018 12:40 EDT) Result No Staphylococcus aureus detected by PCR. 02/22/2018 19:45 EDT [facility] Specimen of unknown material (specimen) NASAL ROUTE / Unknown 02/22/2018 12:40 EDT 02/22/2018 13:04 EDT us Wm Magana PA-C MICROBIOLOGY - GENERAL OR DERABLES Final Result Performing Organization Address [facility] de Phone Number [facility] [address] [place] [address] * EKG 12-LEAD (02/22/2018 12:39 EDT) 02/22/2018 12:3 9 EDT Narrative [facility] EKG - 02/23/2018 14:19 EDT ? [facility] ? Test Date: ?2018-02-22 Pat Name: ? TROY SHIRA ? Department: ?? Vu 3 ? Room: ? M303 Gender: ? Female ? Tapper Operator: ?? [id number] : ?1945 ? Requested By: TIKI Ballard Order Number: [id number] ? Reading MD: ?? MARIFER BARKLEY MD ? Measurements Intervals ?Ripton ? Rate: ? 89 ? P: ?57 [...] Note Marifer Barkley MD - 02/23/2018 [facility] Test Date: 2018-02-22 Pat Name: TROY ANDERS Department: [place] [address] Room: [facility] [place] Gender: Female Tapper Operator: [id number] : 1945 Requested By: TIKI Ballard Order Number: [id number] Reading MD: MARIFER BARKLEY MD Measurements Intervals Ripton Rate: 89 P: 57 ND: 194 QRS: 13 QRSD: 145 T: 164 QT: 414 QTc: 505 Interpretive Statements SINUS RHYTHM INTRAVENTRICULAR CONDUCTION DELAY I reviewed the tracing and have either agreed or edited the findings inthis report. Electronically Signed On 02-23-2018 14:19:43 EDT by MARIFER HERNÁNDEZ. Wm Magana PA-C CARDIAC ECG ORDERABLES Fi nal Result [facility] E[facility] * PORTABLE CHEST PA CENTRAL [...] drain (according to the operative note, 36 Bahraini and 24 Shane mediastinal drains and a [...] drain (according to the operative note, 36 [place]raini and 24 Shane mediastinal drains and a [...] 70 - 100 mg/dl 02/22/2018 12:37 EDT [facility] [place] [id number] 02/22/2018 12:37 EDT [facility] Comment:Test Performed by [facility] BLOOD SPECIMEN / Unknown 02/22/2018 12:36 EDT 02/22/2018 12:37 EDT us Tyrell Vela MD CHEMISTRY & BLOOD GAS ORD ERABLES Final Result Performing Organization Address [facility] Co de Phone Number [facility] [address] [place] [address] * PHOSPHORUS (02/22/2018 12:32 EDT) Phosphorus 3.2 2.5 - 4.5 mg/dl 02/22/2018 14:43 EDT [facility] Comment: Slight hemolysis Results may be affected due to hemolysis. BLOOD SPECIMEN / Unknown 02/22/2018 12:32 EDT 02/22/2018 12:54 EDT us Wm Magana PA-C CHEMISTRY & BLOOD GAS ORD ERABLES Final Result Performing Organization Address [facility] Co de Phone Number [facility] [address] [place] [address] * MAGNESIUM (02/22/2018 12:32 EDT) Magnesium 2.7 1.7 - 2.8 mg/dl 02/22/2018 14:43 EDT [facility] Comment: Slight hemolysis Results may be affected due to hemolysis. BLOOD SPECIMEN / Unknown 02/22/2018 12:32 EDT 02/22/2018 12:54 EDT us Wm Magana PA-C CHEMISTRY & BLOOD GAS ORD ERABLES Final Result Performing Organization Address [facility] Co de Phone Number [facility] [address] [place] [address] * HEMOGLOBIN A1C (02/22/2018 12:32 EDT) Hemoglobin A1C 5.5 % 02/22/2018 15:06 EDT [facility] Comment: Reference Range: <5.7% Normal 5.7-6.4% Prediabetes =>6.5% Diagnostic for diabetes (if confirmed) Goals for glycemic control in diabetes ADA 2017 For non adults with diabetes: ?? Target <7.5% For children and adolescents with type 1 diabetes: ?? Target <7.0% More or less stringent targets may be appropriate for individual patients. Est Avg Glucose 111 mg/dl 8 15:06 EDT [facility] Comment: eAG represents the A1c result expressed as average glucose in mg/dl. BLOOD SPECIMEN / Unknown 02/22/2018 12:32 EDT 02/22/2018 12:54 EDT Wm Magana PA-C CHEMISTRY & BLOOD GAS ORD ERABLES Final Result Performing Organization Address [facility] Co de Phone Number [facility] [address] [place] [address] * CREATININE (02/22/2018 12:32 EDT) Creatinine 0.56 0.52 - 1.04 mg/dl 02/22/2018 13:19 EDT [facility] Comment:Slight hemolysis GFR, Calculated 94 >60 ml/min/1.7 3m2 02/22/2018 13:19 EDT [facility] Comment: eGFR calculated using CKD-EPI equation for non Americans. Multiply eGFR by 1.16 for Americans. Blood specimen (specimen) BLOOD SPECIMEN / Unknown 02/22/2018 12:32 EDT 02/22/2018 12:54 EDT us Adryan Beasley MD CHEMISTRY & BLOOD GAS ORDERA BLES Final Result Performing Organization Address [facility] Co de Phone Number [facility] [address] [place] [address] * BUN (02/22/2018 12:32 EDT) BUN 14 10 - 26 mg/dl 02/22/2018 13:19 EDT [facility] Comment: Slight hemolysis Results may be affected due to hemolysis. Blood specimen (specimen) BLOOD SPECIMEN / Unknown 02/22/2018 12:32 EDT 02/22/2018 12:54 EDT us Adryan Beasley MD CHEMISTRY & BLOOD GAS ORDERA BLES Final Result Performing Organization Address City/[facility]/ZIP Co de Phone Number [facility] [address] [place] [address] * (ABNORMAL) COMPLETE BLOOD COUNT (02/22/2018 12:32 EDT) WBC 13.59(H) 4.0 - 12.4 K/cmm 02/22/2018 13:10 T [facility] RBC 3.63(L) 3.86 - 5.04 M/cmm 02/22/2018 13:10 [facility] Hemoglobin 12.3 11.6 - 15.2 gm/dl 02/22/2018 13:10 [facility] HCT 36.6 34.9 - 44.4 % 02/22/2018 13:10 [facility] MCV 101(H) 81 - 98 fl 02/22/2018 13:10 [facility] MCH 33.9(H) 26.7 - 33.3 pg 02/22/2018 13:10 [facility] MCHC 33.6 32.1 - 35.9 gm/dl 02/22/2018 13:10 [facility] RDW-CV 13.1 <14.7 % 02/22/2018 13:10 [facility] RDW-SD 48.9 <50.4 fl 02/22/2018 13:10 [facility] PLT 163 141 - 377 K/cmm 02/22/2018 13:10 [facility] MPV 11.7 9.5 - 12.7 fl 02/22/2018 13:10 [facility] Blood specimen (specimen) BLOOD SPECIMEN / Unknown 02/22/2018 12:32 EDT 02/22/2018 12:54 EDT us Wm Magana PA-C HEMATOLOGY & PF4 ORDERABL ES Final Result Performing Organization Address City/[facility]/ZIP Co de Phone Number [facility] [address] [place] [address] * POTASSIUM (02/22/2018 12:32 EDT) Potassium 4.4 3.5 - 5.0 mEq/L 02/22/2018 13:19 [facility] Comment: Slight hemolysis Hemolysis may elevate potassium result. Blood specimen (specimen) BLOOD SPECIMEN / Unknown 02/22/2018 12:32 EDT 02/22/2018 12:54 EDT us Wm Magana PA-C CHEMISTRY & BLOOD GAS ORD ERABLES Final Result [facility] [address] [place] [address] * (ABNORMAL) BLOOD GAS, CG8 ISTAT (02/22/2018 11:22 EDT) pH, i-STAT 7.34(L) 7.35 - 7.45 02/22/2018 12:55 [facility] pCO2, i-STAT 49(H) 35 - 45 mmHg 02/22/2018 12:55 [facility] pO2, i-STAT 172(H) 80 - 105 mmHg 02/22/2018 12:55 [facility] TCO2, i-STAT 27 23 - 27 mEq/L 02/22/2018 12:55 [facility] O2 Saturation 99(H) 95 - 98 % 02/22/2018 12:55 [facility] Sodium, i-STAT 140 136 - 145 mEq/L 02/22/2018 12:55 [facility] Potassium, i-STAT 5.6(H) 3.5 - 5.0 mEq/L 02/22/2018 12:55 [facility] Glucose, I-STAT 136(H) 70 - 100 mg/dl 02/22/2018 12:55 [facility] Hematocrit,iSTA T 26(L) 34.9 - 44.4 % 02/22/2018 12:55 [facility] Calcium, Ionized 1.29 1.12 - 1.32 mmol/L 02/22/2018 12:55 [facility] Base Excess, i-STAT 0 02/22/2018 12:55 EDT [facility] Sample Type NOT GIVEN 02/22/2018 12:55 T [facility] asphalt plant worker ID [phone] 02/22/2018 12:55 EDT [facility] Comment: Test performed by Perfusion For non-arterial reference ranges, please see ISTAT procedure. BLOOD SPECIMEN / Unknown 02/22/2018 11:22 EDT 02/22/2018 12:55 EDT us Tyrell Vela MD CHEMISTRY & BLOOD GAS ORD ERABLES Final Result Performing Organization Address [facility] Co de Phone Number [facility] [address] [place] [address] * ACT, CELITE ISTAT (02/22/2018 11:21 EDT) Activated Clotting Time 127 02/22/2018 11:54 EDT [facility] asphalt plant worker ID [phone] 02/22/2018 11:54 EDT [facility] Comment: Test performed by Perfusion Baseline ref range is less than or equal to 160 seconds For non baseline ref ranges see procedure. BLOOD SPECIMEN / Unknown 02/22/2018 11:21 EDT 02/22/2018 11:54 EDT us Tyrell Vela MD POINT OF CARE TEST ORDERA BLES Final Result Performing Organization Address [facility]/ZIP Co de Phone Number [facility] [address] [place] [address] * (ABNORMAL) BLOOD GAS, CG8 ISTAT (02/22/2018 10:57 EDT) pH, i-STAT 7.47(H) 7.35 - 7.45 02/22/2018 12:55 EDT [facility] pCO2, i-STAT 44 35 - 45 mmHg 02/22/2018 12:55 EDT [facility] pO2, i-STAT 552(H) 80 - 105 mmHg 02/22/2018 12:55 [facility] TCO2, i-STAT 33(H) 23 - 27 mEq/L 02/22/2018 12:55 [facility] O2 Saturation 100(H) 95 - 98 % 02/22/2018 12:55 [facility] Sodium, i-STAT 138 136 - 145 mEq/L 02/22/2018 12:55 [facility] Potassium, i-STAT 5.0 3.5 - 5.0 mEq/L 02/22/2018 12:55 [facility] Glucose, I-STAT 167(H) 70 - 100 mg/dl 02/22/2018 12:55 [facility] Hematocrit,iSTA T 27(L) 34.9 - 44.4 % 02/22/2018 12:55 [facility] Calcium, Ionized 1.02(L) 1.12 - 1.32 mmol/L 02/22/2018 12:55 [facility] Base Excess, i-STAT 8 02/22/2018 12:55 [facility] Sample Type NOT GIVEN 02/22/2018 12:55 [facility] asphalt plant worker ID [phone] 02/22/2018 12:55 [facility] Comment: Test performed by Perfusion For non-arterial reference ranges, please see ISTAT procedure. BLOOD SPECIMEN / Unknown 02/22/2018 10:57 EDT 02/22/2018 12:55 EDT us Tyrell Vela MD CHEMISTRY & BLOOD GAS ORD ERABLES Final Result [facility] [address] [place] [address] * ACT CELITE ISTAT (02/22/2018 10:56 EDT) Activated Clotting Time 631 02/22/2018 11:54 [facility] asphalt plant worker ID [phone] 02/22/2018 11:54 [facility] Comment: Test performed by Perfusion Baseline ref range is less than or equal to 160 seconds For non baseline ref ranges see procedure. BLOOD SPECIMEN / Unknown 02/22/2018 10:56 EDT 02/22/2018 11:54 EDT us Tyrell Vela MD POINT OF CARE TEST ORDERA BLES Final Result [facility] [address] [place] [address] * (ABNORMAL) BLOOD GAS, CG8 ISTAT (02/22/2018 10:32 EDT) pH, i-STAT 7.40 7.35 - 7.45 02/22/2018 12:55 [facility] pCO2, i-STAT 45 35 - 45 mmHg 02/22/2018 12:55 [facility] pO2, i-STAT 55(L) 80 - 105 mmHg 02/22/2018 12:55 [facility] TCO2, i-STAT 29(H) 23 - 27 mEq/L 02/22/2018 12:55 [facility] O2 Saturation 88(L) 95 - 98 % 02/22/2018 12:55 [facility] Sodium, i-STAT 141 136 - 145 mEq/L 02/22/2018 12:55 [facility] Potassium, i-STAT 4.6 3.5 - 5.0 mEq/L 02/22/2018 12:55 [facility] Glucose, I-STAT 180(H) 70 - 100 mg/dl 02/22/2018 12:55 [facility] Hematocrit,iSTA T 29(L) 34.9 - 44.4 % 02/22/2018 12:55 [facility] Calcium, Ionized 1.07(L) 1.12 - 1.32 mmol/L 02/22/2018 12:55 [facility] Base Excess, i-STAT 3 02/22/2018 12:55 [facility] Sample Type NOT GIVEN 02/22/2018 12:55 [facility] asphalt plant worker ID [phone] 02/22/2018 12:55 [facility] Comment: Test performed by Perfusion For non-arterial reference ranges, please see ISTAT procedure. BLOOD SPECIMEN / Unknown 02/22/2018 10:32 EDT 02/22/2018 12:55 EDT us Tyrell Vela MD CHEMISTRY & BLOOD GAS ORD ERABLES Final Result Performing Organization Address [facility]/ZIP Co de Phone Number [facility] [address] [place] [address] * ACT, CELITE ISTAT (02/22/2018 10:31 EDT) Activated Clotting Time 607 02/22/2018 11:54 EDT [facility] asphalt plant worker ID [phone] 02/22/2018 11:54 EDT [facility] Comment: Test performed by Perfusion Baseline ref range is less than or equal to 160 seconds For non baseline ref ranges see procedure. BLOOD SPECIMEN / Unknown 02/22/2018 10:31 EDT 02/22/2018 11:54 EDT us Tyrell Vela MD POINT OF CARE TEST ORDERA BLES Final Result Performing Organization Address [facility] Co de Phone Number [facility] [address] [place] [address] * (ABNORMAL) BLOOD GAS, CG8 ISTAT (02/22/2018 10:05 EDT) pH, i-STAT 7.43 7.35 - 7.45 02/22/2018 12:55 EDT [facility] pCO2, i-STAT 48(H) 35 - 45 mmHg 02/22/2018 12:55 EDT [facility] pO2, i-STAT 649(H) 80 - 105 mmHg 02/22/2018 12:55 T [facility] TCO2, i-STAT 33(H) 23 - 27 mEq/L 02/22/2018 12:55 EDT [facility] O2 Saturation 100(H) 95 - 98 % 02/22/2018 12:55 EDT [facility] Sodium, i-STAT 139 136 - 145 mEq/L 02/22/2018 12:55 EDT [facility] Potassium, i-STAT 5.0 3.5 - 5.0 mEq/L 02/22/2018 12:55 T [facility] Glucose, I-STAT 183(H) 70 - 100 mg/dl 02/22/2018 12:55 T [facility] Hematocrit,iSTA T 29(L) 34.9 - 44.4 % 02/22/2018 12:55 [facility] Calcium, Ionized 1.02(L) 1.12 - 1.32 mmol/L 02/22/2018 12:55 [facility] Base Excess, i-STAT 8 02/22/2018 12:55 [facility] Sample Type NOT GIVEN 02/22/2018 12:55 [facility] asphalt plant worker ID [phone] 02/22/2018 12:55 T [facility] Comment: Test performed by Perfusion For non-arterial reference ranges, please see ISTAT procedure. BLOOD SPECIMEN / Unknown 02/22/2018 10:05 EDT 02/22/2018 12:55 EDT us Tyrell Vela MD CHEMISTRY & BLOOD GAS ORD ERABLES Final Result Performing Organization Address City/State/[facility] Co de Phone Number [facility] [address] [place] [address] * ACT CELCANDICE ISTAT (02/22/2018 10:04 EDT) Activated Clotting Time 493 02/22/2018 11:54 EDT [facility] asphalt plant worker ID [phone] 02/22/2018 11:54 EDT [facility] Comment: Test performed by Perfusion Baseline ref range is less than or equal to 160 seconds For non baseline ref ranges see procedure. BLOOD SPECIMEN / Unknown 02/22/2018 10:04 EDT 02/22/2018 11:54 EDT us Tyrell Vela MD POINT OF CARE TEST ORDERA BLES Final Result Performing Organization Address City/State/[facility] Co de Phone Number [facility] [address] [place] [address] * ACT, CELITE ISTAT (02/22/2018 9:19 EDT) Activated Clotting Time 489 02/22/2018 9:58 EDT [facility] asphalt plant worker ID [phone] 02/22/2018 9:58 EDT [facility] Comment: Test performed by Perfusion Baseline ref range is less than or equal to 160 seconds For non baseline ref ranges see procedure. BLOOD SPECIMEN / Unknown 02/22/2018 9:19 EDT 02/22/2018 9:58 EDT us Tyrell Vela MD POINT OF CARE TEST ORDERA BLES Final Result Performing Organization Address [facility] de Phone Number [facility] [address] [place] [address] * (ABNORMAL) BLOOD GAS, CG8 ISTAT (02/22/2018 8:43 EDT) pH, i-STAT 7.39 7.35 - 7.45 02/22/2018 12:55 [facility] pCO2, i-STAT 47(H) 35 - 45 mmHg 02/22/2018 12:55 [facility] pO2, i-STAT 240(H) 80 - 105 mmHg 02/22/2018 12:55 [facility] TCO2, i-STAT 29(H) 23 - 27 mEq/L 02/22/2018 12:55 [facility] O2 Saturation 100(H) 95 - 98 % 02/22/2018 12:55 [facility] Sodium, i-STAT 144 136 - 145 mEq/L 02/22/2018 12:55 [facility] Potassium, i-STAT 4.0 3.5 - 5.0 mEq/L 02/22/2018 12:55 [facility] Glucose, I-STAT 111(H) 70 - 100 mg/dl 02/22/2018 12:55 [facility] Hematocrit,iSTA T 35 34.9 - 44.4 % 02/22/2018 12:55 EDT [facility] Calcium, Ionized 1.13 1.12 - 1.32 mmol/L 02/22/2018 12:55 EDT [facility] Base Excess, i-STAT 3 02/22/2018 12:55 EDT [facility] Sample Type NOT GIVEN 02/22/2018 12:55 EDT [facility] asphalt plant worker ID [phone] 02/22/2018 12:55 EDT [facility] Comment: Test performed by Perfusion For non-arterial reference ranges, please see ISTAT procedure. BLOOD SPECIMEN / Unknown 02/22/2018 8:43 EDT 02/22/2018 12:55 EDT us Tyrell Vela MD CHEMISTRY & BLOOD GAS ORD ERABLES Final Result Performing Organization Address City/[facility]/ZIP Co de Phone Number [facility] [address] [place] [address] * ACT, CELITE ISTAT (02/22/2018 8:42 EDT) Activated Clotting Time 148 02/22/2018 9:58 EDT [facility] asphalt plant worker ID [phone] 02/22/2018 9:58 EDT [facility] Comment: Test performed by Perfusion Baseline ref range is less than or equal to 160 seconds For non baseline ref ranges see procedure. BLOOD SPECIMEN / Unknown 02/22/2018 8:42 EDT 02/22/2018 9:58 EDT us Tyrell Vela MD POINT OF CARE TEST ORDERA BLES Final Result Performing Organization Address City/[facility]/ZIP Co de Phone Number [facility] [address] [place] [address] * ABO/RH (02/22/2018 6:52 EDT) [facility] [place] [facility] Rh Factor Positive [facility] 02/22/2018 6:52 EDT us Qing Hui MD MSc BLOOD BANK TESTS Final R esult Performing Organization Address [facility]/ZIP Co de Phone Number [facility] [address] [place] [address] * CREATININE (02/22/2018 6:52 EDT) Creatinine 0.66 0.52 - 1.04 mg/dl 02/22/2018 7:21 EDT [facility] GFR, Calculated 89 >60 ml/min/1.7 3m2 02/22/2018 7:21 EDT [facility] Comment: eGFR calculated using CKD-EPI equation for non Americans. Multiply eGFR by 1.16 for Americans. Blood specimen (specimen) BLOOD SPECIMEN / Unknown 02/22/2018 6:52 EDT 02/22/2018 6:58 EDT us Tyrell Vela MD CHEMISTRY & BLOOD GAS ORD ERABLES Final Result Performing Organization Address [facility]/ZIP Co de Phone Number [facility] [address] [place] [address] * BUN (02/22/2018 6:52 EDT) BUN 16 10 - 26 mg/dl 02/22/2018 7:21 EDT [facility] Blood specimen (specimen) BLOOD SPECIMEN / Unknown 02/22/2018 6:52 EDT 02/22/2018 6:58 EDT us Tyrell Vela MD CHEMISTRY & BLOOD GAS ORD ERABLES Final Result Performing Organization Address [facility] Co de Phone Number [facility] [address] [place] [address] * ANESTH TRANSESOPHAGEAL ECHO (02/22/2018 6:50 EDT) Anatomical Region Laterality Modality Other 02/22/2018 6:50 EDT Narrative 02/22/2018 6:50 EDT Non Reportable 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, 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 - 02/22/2018 Non Reportable Exam us Arabella Quesada MD CARDIAC ECHO ORDERAB LES Final Result * ORDERS - SCANNED (02/10/2018 11:37 EDT) 02/10/2018 11:3 7 EDT us Scan 2 Auto Damage Estimator ADMISSION ORDERABLES Final Result documented in this encounter Visit Diagnoses Diagnosis Nonrheumatic aortic valve stenosis- Primary Aortic valve disorders Coronary artery disease involving [place] heart with angina pectoris, unspecified vessel or lesion type (HCC-CMS) Nonrheumatic aortic valve stenosis Aortic valve disorders Somnolence Other alteration of consciousness 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
--- OUTSIDE RECORDS SUMMARY | 2024-08-23 14:30 | XMS_ITS | Encounter Summary ---
Author Organization [facility] Address [address] [place] [address] Care Team Providers Care Loan Service Officer Name Role Phone Jewel Fontenot MD Primary Care Provider [phone] Reason for Visit * Reason Onset Date Comments Referral Request 12/24/2017 Elective Referr al Encounter Details Date Type Department Care Team (Late st Contact Info) Description 12/24/2017 Telephone [facility] Cardiothoracic Surgery - [address] [id number] Corinne Burnette MD [address] [place] [address], [address] [place] [address] Referral Request (Elective Referral) Social [...] Fontenot If cardiac cath completed, 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 EF 65-70% on recent echo Electric Trucker following patient? Dr. De Dios _ Medication [...] Info) Description 03/08/2025 11:00 EDT Office Visit [facility] Dermatology [address] [facility], [place] [address] Cynthia Salinas MD [address] [place] [address] 07/27/2025 Hospital Encounter [facility] OR [address] [place] [address] Vicki Main MD [address] [facility], [facility], [address] [place] [address] Scheduled Procedures Name Priority Associated Diagnoses Date/Ti me INSERTION, CRANIAL NERVE STIMULATOR CINTHIA (obstructive sleep apnea) documented as of this encounter Visit Diagnoses Not on filedocumented in this encounter Care Teams Loan Service Officer Relationship Specialty Start Date End Date Jewel Fontenot MD [address] [facility] [address] [place] [address] PCP - General 06/01/15 01/14/18 documented as of this encounter
--- OUTSIDE RECORDS SUMMARY | 2024-08-23 14:30 | XMS_ITS | Encounter Summary ---
Author Organization [facility] Address [address] [place] [address] Care Team Providers Care Recessing Machine Operator Name Role Phone Kit Burch MD Primary Care Provider [phone] Reason for Referral * Cardiology (Routine) - New Request Specialty Diagnoses / Procedures Referred By Contac t Referred To Contact Diagnoses Moderate aortic stenosis Procedures LEFT HEART CATH Tyrell Vogt MD Referral ID Status Reason Start Date Expiration Date V isits Requested Visits Authorized [id number] New Request 01/19/2018 1 1 * Radiology Services (Routine) - New Request Specialty Diagnoses / Procedures Referred By Contac t Referred To Contact Diagnoses Moderate aortic stenosis Procedures CHEST PA AND LATERAL Tyrell Vogt MD Referral ID Status Reason Start Date Expiration Date V isits Requested Visits Authorized [id number] New Request 01/19/2018 1 1 Reason for [...] Expiration Date Visits Re quested Visits Authorized [id number] Closed 1 1 Encounter Details Date Type Department Care Team (Latest Contact Info) Description 01/19/2018 8:30 EDT Office Visit [facility] Cardiothoracic Surgery - [place] [address] [place], [place] [phone] Tyrell Vogt MD Moderate aortic stenosis (Primary [...] will need a cardiac cath here at [facility]. We will notify you of the [...] artery stenosis, then I would ask the tong carrier to place a stent at the time of her cardiac catheterization. The STS risk calculator was discussed with the patient and her mortality is 1.236% and the mortality and morbidity is 9.991% PLAN: 1. Routine pre-operative workup in place, cardiac catheterization ordered (if there was a flow limiting coronary artery stenosis, then I would ask the tong carrier to place a stent at the time of hercardiac catheterization). 2. To OR on 02/15 for aortic valve replacement (perceval - bovine) . Tyrell Vogt MD documented in this encounter Plan of Treatment Upcoming Encounters Date Type Department Care Team (Late st Contact Info) Description 03/08/2025 11:00 EDT Office Visit [facility] Dermatology [address] [facility], [address] [place], [place] [address] Cynthia Salinas MD [address] [facility] [address] [place] [phone] 07/27/2025 Hospital Encounter [facility] OR [address] [place] [address] Vicki Main MD [address] [facility], [address] [place] [phone] Scheduled Procedures Name Priority Associated Diagnoses Date/Ti [...] EDT Narrative 02/10/2018 9:44 EDT Cardiology [address] [place] [address] Catheterization Laboratory Study Patient: Liya Anders ?Study Date: ? 02/08/2018 ? Accession #: ?[id number] : ? [id number] Referring: Kit Burch MD [...] Note Yonatan Arellano MD - 02/10/[address] [place] [address] Catheterization Laboratory Study Patient: Liya Anders Study [...] 10:14 AM Clinical History/Comments: I35.0-Nonrheumatic aortic (valve) [id number]; mod-severe , pre-op AVR COMPARISON: None Findings: [...] 10:14 AM Clinical History/Comments: I35.0-Nonrheumatic aortic (valve) [id number]; mod-severe , pre-op AVR COMPARISON: None Findings: [...] 4 added in this encounter Care Teams Recessing Machine Operator Relationship Specialty Start Date End Date Kit Burch MD [facility] [employer] [address] [place] [address] PCP - General 01/15/18 10/29/23 documented as of this encounter
--- OUTSIDE RECORDS SUMMARY | 2024-08-23 14:30 | XMS_ITS | Encounter Summary ---
Author Organization [facility] Address [address] [place] [address] Care Team Providers Care Applied Exercise Physiologist Name Role Phone Unavailable Primary Care Provider Unavailabl e Encounter Details Date Type Department Care Team (Latest Contact Info) Description 04/08/2002 9:00 EDT - 04/08/2002 11:59 EDT Hospital Encounter [facility] General Surgery Unit [address] [place], [place] [address] Vignesh Barkley MD [address] [place] [address] Discharge Disposition: Home or Self [...] 03/08/2025 11:00 EDT Office [facility] [place] [address] [facility], [place], [place] [phone] Cynthia Salinas MD [address] [place] [address] [place] [phone] 07/27/2025 Hospital Encounter [facility] Main [place] [address] [place] [address] Vicki Main MD 111 [facility], Level 4 [place] [address] Scheduled Procedures Name Priority Associated Diagnoses Date/Ti me INSERTION, CRANIAL NERVE STIMULATOR CINTHIA (obstructive sleep apnea) documented as of this encounter Visit Diagnoses Not on filedocumented in this encounter
--- OUTSIDE RECORDS SUMMARY | 2024-08-23 14:30 | XMS_ITS | Encounter Summary ---
Author Organization [facility] Address [address] [place] [address] Care Team Providers Care Refrigerated Cargo Clerk Name Role Phone Kit Burch MD Primary Care Provider [phone] Reason for Visit * Reason Onset Date Comments Other 02/09/2018 Encounter Details Date Type Department Care Team (Late st Contact Info) Description 02/09/2018 Telephone [facility] Cardiothoracic Surgery - [facility] [address] [place] [address] Sharla Clements RN [address] [place] [address] Other Social History Tobacco Use Types Packs/Day [...] if you have any questions at or 7841. Verbalized understanding. documented in this encounter Plan of Treatment Upcoming Encounters Date Type Department Care Team (Late st Contact Info) Description 03/08/2025 11:00 EDT Office Visit [facility] Dermatology 130 [facility], [place] [address] Cynthia Salinas MD [address] [facility] [address] [place] [phone] 07/27/2025 Hospital Encounter [facility] OR [address] [place] [address] Vicki Main MD 111 [facility], Level 4 [place] [address] Scheduled Procedures Name Priority Associated Diagnoses Date/Ti me INSERTION, CRANIAL NERVE STIMULATOR CINTHIA (obstructive sleep apnea) documented as of this encounter Visit Diagnoses Not on filedocumented in this encounter Care Teams Refrigerated Cargo Clerk Relationship Specialty Start Date End Date Kit Burch MD [address] [place] [address] PCP - General 01/15/18 10/29/23 documented as of this encounter
--- OUTSIDE RECORDS SUMMARY | 2024-08-23 14:30 | XMS_ITS | Encounter Summary ---
Author Organization [facility] Address [address] [place] [address] Care Team Providers Care Refueling Ramp Attendant Name Role Phone Kit Burch MD Primary Care Provider [phone] Reason for Visit * Reason Onset Date Comments Other 01/28/2018 change in surger y date Encounter Details Date Type Department Care Team (Late st Contact Info) Description 01/28/[address] [facility] Cardiothoracic Surgery - [address] [address] Tyrell Vogt MD Other (change [...] Info) Description 03/08/2025 11:00 EDT Office Visit [facility] Dermatology 130 [facility], [place] [address] Cynthia Salinas MD 350 [facility] [address] [place] [address] 07/27/2025 Hospital Encounter [facility] OR [address] [place], [place] [address] Vicki Main MD 111 [facility], [facility], Level 4 [place] [phone] Scheduled Procedures Name Priority Associated Diagnoses Date/Ti me INSERTION, CRANIAL NERVE STIMULATOR CINTHIA (obstructive sleep apnea) documented as of this encounter Visit Diagnoses Not on filedocumented in this encounter Care Teams Refueling Ramp Attendant Relationship Specialty Start Date End Date Kit Burch MD [address] [facility] [address] [place] [address] PCP - General 01/15/18 10/29/23 documented as of this encounter
--- OUTSIDE RECORDS SUMMARY | 2024-08-23 14:30 | XMS_ITS | Encounter Summary ---
Author Organization [facility] Address [address] [place] [address] Care Team Providers Care Share Dairy Farmer Name Role Phone Jewel Fontenot MD Primary Care Provider [phone] Encounter Details Date Type Department Care Team (Late st Contact Info) Description 10/22/2016 Results Only Imaging [facility] [phone] Unknown, Provider, Social History Tobacco Use Types [...] EDT Office Visit [facility] Derm[facility] [address] [place] [address], [place], [place] [address] Cynthia Salinas MD [address] [place] [address] [place] [phone] 07/27/2025 Hospital Encounter [facility] Main [place] [address] [place] [address] Vicki Main MD 111 [facility], [facility], Level [address] [place] [address] Scheduled Procedures Name Priority Associated [...] - there is no report. Procedure Note TICKET AGENT, IMAGING - 12/29/2017 This is an outside study - there is no report. us Provider Unknown IMVicki OTHER IMAGING ORDERABLES Final Result documented in this encounter Visit Diagnoses Not on filedocumented in this encounter Care Teams Share Dairy Farmer Relationship Specialty Start Date End Date Jewel Fontenot MD [address] [facility] [address] [place] [phone] PCP - General 06/01/15 01/14/18 documented as of this encounter
--- OUTSIDE RECORDS SUMMARY | 2024-08-23 14:30 | XMS_ITS | Encounter Summary ---
Author Organization [facility] Address [address] [place] [address] Care Team Providers Care Wood Panel Inspector Name Role Phone Kit Burch MD Primary Care Provider [phone] Encounter Details Date Type Department Care Team (Late st Contact Info) Description 02/08/2018 Results Only [facility] Cardiothoracic Surgery - [address] [address] Tyrell Vogt MD Social History [...] Description 03/08/2025 11:00 EDT Office Visit [facility] Dermatology 130 [facility], [place], [place] [address] Cynthia Salinas MD [address] [place] [address] [place] [phone] 07/27/2025 Hospital Encounter [facility] OR [address] [place], [place] [phone] Vicki Main MD 111 [facility], Level 4 [place] [address] Scheduled Procedures Name Priority Associated [...] BLOOD CELLS (02/08/2018 16:28 EDT) Product Code [id number] [facility] BLOOD BANK Donor Number [id number] U [facility] Unit ABO O [facility] Unit Rh POS [facility] Unit Status RE^Released From [facility] BLOOD BANK Product Expiration Date [facility]OD [facility] Unit Blood Type Code 5100 [facility]LOOD [facility] Coding System [id number] [facility] BLOOD BANK 02/08/2018 16:2 8 EDT us Tyrell Vogt MD BLOOD BANK ORDERABLES Fin al Result Performing Organization Address City/State/[facility] Co de Phone Number [facility] BLOOD BANK [address] [place] [id number] * PREPARE RED BLOOD CELLS (02/08/2018 16:28 EDT) Product Code [id number] [facility] BLOOD BANK Donor Number [id number] U [facility] BLO[facility] Unit ABO O [facility]OD [facility] Unit Rh POS [facility]LOOD [facility] Unit Status RE^Released From [facility] BLOOD BANK Product Expiration Date [id number] [facility] BLOOD B[facility] Unit Blood Type Code 5100 [facility] BLOOD [facility] Coding System [id number] [facility] BLOOD BANK 02/08/2018 16:2 8 EDT us Tyrell Vogt MD BLOOD BANK ORDERABLES Fin al Result Performing Organization Address City/[facility]/ZIP Co de Phone Number [facility] BLOOD [facility] [address] [facility] [place] [address] * TYPE AND SCREEN (02/08/2018 14:54 EDT) Antibody Screen Negative [facility]LOOD [facility] Specimen Expires: 02/25/2018 @ 23:59 [facility] BLOOD BANK ABO O [facility] BLOOD BANK Rh Factor Positive [facility] BLOOD BANK 02/08/2018 14:5 4 EDT us Tyrell Vogt MD BLOOD BANK TESTS Final Re sult Performing Organization Address [facility] Co de Phone Number [facility]LOOD [facility] [address] [place] [address] documented in this encounter Visit Diagnoses Not on filedocumented in this encounter Care Teams Wood Panel Inspector Relationship Specialty Start Date End Date Kit Burch MD [address] [place] [address] [address] [place] [address] PCP - General 01/15/18 10/29/23 documented as of this encounter
--- OUTSIDE RECORDS SUMMARY | 2024-08-23 14:30 | XMS_ITS | Encounter Summary ---
Author Organization [facility] Address [address] [place] [address] Care Team Providers Care Web Site Administrator Name Role Phone Jewel Fontenot MD Primary Care Provider [phone] Encounter Details Date Type Department Care Team (Late st Contact Info) Description 12/28/2017 Results Only Imaging [facility] Cardiothoracic Surgery - [address] [phone] Tyrell Vogt MD Social History Tobacco Use [...] Info) Description 03/08/2025 11:00 EDT [facility] [place] 130 [facility], [place], [place] [phone] Cynthia Salinas MD [address] [place] [address] [place] [phone] 07/27/2025 Hospital Encounter [facility] OR [address] [place] [address] Vicki Main MD 111 [facility], [facility], Level [address] [place] [address] Scheduled Procedures Name Priority Associated Diagnoses Date/Ti me INSERTION, CRANIAL NERVE STIMULATOR CINTHIA (obstructive sleep apnea) documented as of this encounter Visit Diagnoses Not on filedocumented in this encounter Care Teams Web Site Administrator Relationship Specialty Start Date End Date Jewel Fontenot MD [address] [facility] [address] [place] [address] PCP - General 06/01/15 01/14/18 documented as of this encounter
--- OUTSIDE RECORDS SUMMARY | 2024-08-23 14:30 | XMS_ITS | Encounter Summary ---
Author Organization [facility] Address [address] [place] [address] Care Team Providers Care Grinder Set Up Operator Thread Name Role Phone Unavailable Primary Care Provider Unavailabl e Encounter Details Date Type Department Care Team (Late st Contact Info) Description 12/03/2004 Results Only [facility] [place] [facility] [address] [place], [place] [phone] Unknown, Provider, Social History Tobacco Use Types [...] Info) Description 03/08/2025 11:00 EDT Office Visit [facility] Dermatology [address] [place] [address] Cynthia Salinas MD [address] [place] [address] [place] [phone] 07/27/2025 Hospital Encounter [facility] Main [place] [address] [place] [address] Vicki Main MD 111 [facility], Level [address] [place] [address] Scheduled Procedures Name Priority Associated [...] 12/03/2004 9:06 EDT 12/03/2004 22:15 EDT us Provider Unknown MD CHEMISTRY & BLOOD GAS ORDERA BLES Final Result [facility] [address] [place] [address] documented in this encounter Visit Diagnoses Not on filedocumented in this encounter
--- OUTSIDE RECORDS SUMMARY | 2024-08-23 14:30 | XMS_ITS | Encounter Summary ---
Author Organization [facility] Address [address] [place] [address] Care Team Providers Care Application Development Liaison Name Role Phone Unavailable Primary Care Provider Unavailabl e Encounter Details Date Type Department Care Team (Late st Contact Info) Description 02/15/2007 Results Only [facility] - [place] [facility] [address] [place] [phone] Unknown, Provider, Social History Tobacco Use Types [...] Info) Description 03/08/2025 11:00 EDT Office Visit [facility] Dermatology [address] [place] [address] Cynthia Salinas MD [address] [place] [address] [place] [phone] 07/27/2025 Hospital Encounter [facility] Main [place] [address] [place] [address] Vicki Main MD 111 [facility], Level [address] [place] [address] Scheduled Procedures Name Priority Associated [...] 12:3 1 EDT 02/15/2007 21:18 EDT us Provider Unknown MD CHEMISTRY & BLOOD GAS ORDERA BLES Final Result [facility] [address] [place] [address] documented in this encounter Visit Diagnoses Not on filedocumented in this encounter
--- OUTSIDE RECORDS SUMMARY | 2024-08-23 14:30 | XMS_ITS | Encounter Summary ---
Author Organization [facility] Address [address] [place] [address] Care Team Providers Care Grants Manager Name Role Phone Kit Burch MD Primary Care Provider [phone] Reason for Visit * Reason Onset Date Comments Confirmation 02/19/2018 Encounter Details Date Type Department Care Team (Late st Contact Info) Description 02/19/2018 Telephone [facility] Cardiothoracic Surgery - [address] [phone] Chaya Medrano RN Confirmation Social History Tobacco [...] Miscellaneous Notes * Telephone Encounter - Chaya Medarno RN - 02/19/2018 1152 EDT The following [...] where howevertwo cell phones (her cell phone) [phone] (daughter cell) [phone] Plan: As above Patient verbalized understanding of Pre-Operative Confirmation Call Information. No barriers to learning identified: Yes * Telephone Encounter - Martha Rodriguez - 02/19/2018 1120 EDT Daughter returning call to CT Surgery RN. Requesting return call to [phone]. * Telephone Encounter - Chaya Medrano RN [...] Description 03/08/2025 11:00 EDT Office Visit [facility] Dermatology 130 [facility], [place] [address] Cynthia Salinas MD [address] [place] [address] [place] [phone] 07/27/2025 Hospital Encounter [facility] OR [address] [place] [address] Vicki Main MD 111 [facility], Level 4 [place] [address] Scheduled Procedures Name Priority Associated Diagnoses Date/Ti me INSERTION, CRANIAL NERVE STIMULATOR CINTHIA (obstructive sleep apnea) documented as of this encounter Visit Diagnoses Not on filedocumented in this encounter Care Teams Grants Manager Relationship Specialty Start Date End Date Kit Burch MD [facility] [address] [place] [address] PCP - General 01/15/18 10/29/23 documented as of this encounter
--- OUTSIDE RECORDS SUMMARY | 2024-08-23 14:30 | XMS_ITS | Encounter Summary ---
Author Organization [facility] Address [address] [place] [address] Care Team Providers Care Window Display Designer Name Role Phone Kit Burch MD Primary Care Provider [phone] Reason for Visit * Reason Onset Date Comments Pre-visit Planning 02/08/2018 Encounter Details Date Type Department Care Team (Late st Contact Info) Description 02/08/2018 Telephone [facility] [place] [address] Sharla Clements, RN [address] [place] [address] Pre-visit Planning Social History Tobacco Use Types [...] Sharla Clements, RN - 02/08/2018 [address] [address] (Toll Free) (Office) Preoperative Instructions - Cardiac Surgery Patients Dear Ms. Liya Anders, Welcome to the Division of Cardiothoracic Surgery at the [facility]. We look forward to making your [...] located in the Main Entrance of the [facility] at the [facility]. If you have been pre-registered over the telephone, you will still need to stop at Registration. Ifyou use the parking garage, take the elevator to Level 3 and continue down the malik to Registrationwhich is on your left, if you use the [facility] Elev[facility], and on your right if you use the [facility] Elevators. If you use Dairy Machine Operator Farmworker Parking, enter the front door (Level 3 [...] Hold. We have Family Centered Care at [facility] thus the number of family and [...] those of you who reside outside the [facility]), should you or your loved ones require accommodations during your hospitalization. Discounts apply at many, thus remind the Hotel / Motel that you are a patient or family member to secure the discount that may be offered. If you need aletter for the discount or further information contact The Office of Patient and Family Advocacy [phone] for assistance. Additional resources and information are also available on our [facility] web site at [email or web address]. Your length of stay at the Hospital [...] be registered under (if staying at a [facility]).In the event of a scheduling change, we [...] Primary Care Physician / Doctor and your Radiology Administrator / Hear Doctor if any of your [...] [facility]. You will be given another [...] additional bras following discharge, you may call [facility] at or or Web Site: [email or web address] ([place]). While waiting for your cardiac surgery, dental [...] most comfortable. Do not wear any nail hungarian, makeup, powder, lotion, deodorant or jewelry of [...] your Primary Care Physician / Doctor or Radiology Administrator / Doctor (for cardiac surgery patients). If [...] Office Visit [facility] Dermatology [address] [facility], [place], [place] [address] Cynthia Salinas MD 350 [facility] [address] [place] [address] 07/27/2025 Hospital Encounter [facility] Main [place] OR [address] [place] [address] Vicki Main MD [address] [facility], Level [address] [place] [address] Scheduled Procedures Name Priority Associated Diagnoses Date/Ti me INSERTION, CRANIAL NERVE STIMULATOR CINTHIA (obstructive sleep apnea) documented as of this encounter Visit Diagnoses Not on filedocumented in this encounter Care Teams Window Display Designer Relationship Specialty Start Date End Date Kit Burch MD [address] [place] [address] PCP - General 01/15/18 10/29/23 documented as of this encounter
--- OUTSIDE RECORDS SUMMARY | 2024-08-23 14:30 | XMS_ITS ---
Author Organization Unknown Address [address] [place] [phone] Phone Care Team Providers Care Quote Clerk Name Role Phone CHIDI GALLEGOS Attending Unavailable Immunization Immunization Date Status Additional Notes Code Code System pneumococcal polysaccharide [id number] 03/02/2012 Completed 33 CVX Results MM DIGITAL SCR W PAIGE BILATE RAL - Completed: 04/10/2021 13:51 LOINC: Digital mammograms were inte rpreted according to the usual protocol including computer analysis with 159.comx system including tomosynthesis. Comparison is made with [...] D Saturday, April 10, 2021 1:54:46 PM [id number] Electronically Reviewed and Signed By: LETICIA JACK M.D. RADIOLOGIST 04/11/21 08:31 TECHNOLOGIST: Natalia Mc, RT (R)(M)(CT) Social History Type Status Start Date End Date Code Code Syst em Smoking History Never smoker (Never Smoked) 409492090 SNOMED CT Sex Female Assessment You had [...] NOS L LEG active SNOMED-CT GERD active [id number] SNOMED-CT HYPOTHYROIDISM active 97473738 SNOME D-CT CHF active 85583874 SNOMED-CT Allergies and Adverse Reactions Allergy Substance Reaction Severity Start Date Concern Status Co de Code System MORPHINE ?hallucinations (SNOMED-CT: null) Moderate Active 7061 RxNorm Plan of Treatment No Data Found Encounters Encounter Diagnosis Start Date Code Code Sys tem Encounter for screening mamm ogram for malignant neoplasm of breast 04/10/2021 SNOMED-CT Personal Care Team Section Performer Name Performer Role Active Date Inactive Da te
--- OUTSIDE RECORDS SUMMARY | 2024-08-23 14:30 | XMS_ITS | Encounter Summary ---
Author Organization [facility] Address [address] [place] [address] Care Team Providers Care Independent Jeweler Name Role Phone Kit Burch MD Primary Care Provider [phone] Encounter Details Date Type Department Care Team (Latest Contact Info) Description 02/08/2018 9:05 EDT - 02/08/2018 15:[address] 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 Patient alert and oriented x3. Transfers to stretcher independently. Patient greeted and identified per [facility] policy. Allergies and procedure verified & patient [...] Allergies Local Pharmacy [facility] [address] [facility], [place] - [address] [facility] [address] Cardiac History: Stress Test? No Reason for [...] instructed to register on the 3rd floor [facility]. Transportation Issues: No Patient/family instructed that they will need a designated otr flatbed company truck driver if they are discharged on the dayof the procedure. Medications: Medication list: Patient/family instructed to bring medication list with them on the day of the procedure. Anticoagulants/Antiplatelets: Takes Aspirin 81 mg daily Anti-Anginal meds: NA BELLA VALDES RN * Bella Valdes RN - 01/28/2018 1227 EDT Images from the original note were not included. [facility] [address] [place] [address] Madiha Nickerson, Here is important information regarding your upcoming Cardiac Catheterization procedure. Feel free to call with any questions or concerns. We will ensure we have prior authorization from your insurance company, if needed, for your procedure and notify you if there are any issues. Please make sure you copy and paste this link into your web browser in order to read it. [email or web address] Procedure Date: February 08, 2018 Check [...] go home you will need a designated otr flatbed company truck driver or a responsible adult to [...] any elevator to the 3rd floor registration. [employer] parking is also available at the Main Entrance. The registration staff will direct you to the Cardiovascular Unit waiting room. Please check in with the hotel or motel receptionist and they will notify of your [...] anyone listed below with questions. Jelena Cath Seed Sorter - [phone] Shireen Valdes seamless tube drawer Testing Nurse- [phone] Please make sure you copy and paste this link into your web browser in order to read it Patients & Visitors Information [email or web address] Hotels & Lodging Information [email or web address] documented in this encounter H&P Notes * Mynor Harrell - 02/07/2018 1456 EDT Cardiology H&P Admit Date: 02/08/2018 PCP: Kit Burch CC: [facility] HPI: Troy Silva is a 72 y.o. female with a PMH significant for severe , HLD, HTN, hypothyroidhere for [facility] for preop eval for SAVR. No [...] LHC or YANIRA PCI Mynor Harrell, PGY-4 Clinical Documentation Manager Cosigned by Yonatan Arellano MD at [...] cm. Procedure: She was brought to [facility] Cardiac Catheterization Laboratory for the procedure: [...] review with family Yonatan Arellano MD PagerNumber: [phone] 02/08/2018 12:14 documented in this encounter Consult Notes * Tyrell Vogt MD - 02/08/2018 2275 EDT Cardiothoracic Surgery Consult Chief Complaint: Shortness [...] Info) Description 03/08/2025 11:00 EDT Office Visit [facility] Dermatology [address] [facility], [place] [address] Cynthia Salinas MD 350 [facility] [address] [place] [phone] 07/27/2025 Hospital Encounter [facility] OR [address] [place] [address] Vicki Main MD 111 [facility], [address] [place] [phone] Scheduled Procedures Name Priority Associated Diagnoses Date/Ti me INSERTION, CRANIAL NERVE STIMULATOR CINTHIA (obstructive sleep apnea) documented as of this encounter Procedures Procedure Name Priority Date/Time Associated Diagnosis Comments ECG REPORT - SCANNED 02/11/2018 8:56 EDT ECG REPORT - SCANNED 02/11/2018 8:42 EDT ECG REPORT - SCANNED 02/11/2018 8:42 EDT PRE-OP TYPE AND SCREEN Routine 02/08/2018 13:53 EDT 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, unspecified vessel or lesion type (HCC-CMS) Nonrheumatic aortic valve stenosis MRSA PCR Routine 02/08/2018 13:39 EDT 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 BLOOD SPECIMEN / Unknown 02/08/2018 13:53 EDT 02/08/2018 15:01 EDT Tyrell Vogt MD BLOOD BANK TESTS Final Re sult Performing Organization Address [facility] de Phone Number [facility] [address] [place] [address] * MRSA PCR (02/08/2018 13:39 EDT) Result No Staphylococcus aureus detected by PCR. 02/08/2018 23:[address] [facility] Specimen of unknown material (specimen) NASAL ROUTE / Unknown 02/08/2018 13:39 EDT 02/08/2018 16:15 EDT Tyrell Vogt MD MICROBIOLOGY - GENERAL OR DERABLES Final Result Performing Organization Address [facility] Co de Phone Number [facility] [address] [place] [address] * EKG 12-LEAD (02/08/2018 9:53 EDT) 02/08/2018 9:[address] [facility] E[facility] - 02/11/2018 8:51 EDT ? [facility] ? Test Date: ?2018-02-08 Pat Name: ? TROY SILVA ? Department: ?? CVU ? Room: ? CVU36 Gender: ? Female ? Exercise Instruct: ?? [id number] : ?1945 ? Requested By: AZARBAL AMIR Order Number: [id number] ? Reading MD: ?? BOB MARCE MD ? Measurements Intervals ?Pony ? Rate: ? 91 ? P: ?4 UT: ? 173 ?QRS: ?19 QRSD: ? 71 [...] Bob Zheng Jr., MD - 02/11/2018 [facility] Test Date: 2018-02-08 Pat Name: TROY SILVA Department: CVU Room: [facility] Gender: Female Exercise Instruct: [id number] : 1945 Requested By: ELEAZAR HERNANDEZ Order Number: [id number] Reading MD: BOB ZHENG MD Measurements Intervals Pony Rate: 91 P: 4 UT: 173 QRS: 19 QRSD: 71 T: 123 QT: 359 QTc: 443 Interpretive Statements SINUS RHYTHM [address] DEVIATION AND MODERATE T-WAVE ABNORMALITY, CONSIDER LATERAL ISCHEMIA No previous ECG available for comparison I reviewed the tracing and have either agreed or edited the findings inthis report. Electronically Signed On 02-11-2018 8:51:25 EDT by BOB SHAH. Marcela Hartley MD CARDIAC ECG ORDERABLES Final Res ult [facility] * PROTIME (02/08/2018 9:46 EDT) Pro Time 11.8 10.3 - 13.4 secs 02/08/2018 10:[address] [facility] I.N.R. 1.0 0.9 - 1.1 Ratio 02/08/2018 10:[address] [facility] Comment: Moderate Intensity Coumadin INR = 2.0-3.0 Adjustments in anticoagulant therapy dose should be based upon the INR and NOT the Pro Time. Blood specimen (specimen) BLOOD SPECIMEN / Unknown 02/08/2018 9:46 EDT 02/08/2018 10:15 EDT us Marcela Hartley MD HEMATOLOGY & PF4 ORDERABLES Mely l Result [facility] [address] [place] [address] * (ABNORMAL) COMPLETE BLOOD COUNT (02/08/2018 9:46 EDT) WBC 10.71 4.0 - 12.4 K/cmm 02/08/2018 11:45 [facility] RBC 3.82(L) 3.86 - 5.04 M/cmm 02/08/2018 11:45 [facility] Hemoglobin 13.1 11.6 - 15.2 gm/dl 02/08/2018 11:45 [facility] HCT 38.4 34.9 - 44.4 % 02/08/2018 11:45 [facility] MCV 101(H) 81 - 98 fl 02/08/2018 11:45 [facility] MCH 34.3(H) 26.7 - 33.3 pg 02/08/2018 11:45 [facility] MCHC 34.1 32.1 - 35.9 gm/dl 02/08/2018 11:45 [facility] RDW-CV 13.1 <14.7 % 02/08/2018 11:45 [facility] RDW-SD 47.8 <50.4 fl 02/08/2018 11:45 [facility] PLT 243 141 - 377 K/cmm 02/08/2018 11:45 [facility] MPV 11.4 9.5 - 12.7 fl 02/08/2018 11:45 [facility] Blood specimen (specimen) BLOOD SPECIMEN / Unknown 02/08/2018 9:46 EDT 02/08/2018 10:15 EDT us Marcela Hartley MD HEMATOLOGY & PF4 ORDERABLES Mely l Result Performing Organization Address City/[facility]/ZIP Co de Phone Number [facility] [address] [place] [address] * ELECTROLYTES (02/08/2018 9:46 EDT) Sodium 140 136 - 145 mEq/L 02/08/2018 10:[address] [facility] Potassium 4.0 3.5 - 5.0 mEq/L 02/08/2018 10:[address] [facility] Chloride 103 96 - 110 mEq/L 02/08/2018 10:[address] [facility] CO2 29 22 - 32 mEq/L 02/08/2018 10:[address] [facility] Blood specimen (specimen) BLOOD SPECIMEN / Unknown 02/08/2018 9:46 EDT 02/08/2018 10:15 EDT us Marcela Hartley MD CHEMISTRY & BLOOD GAS ORDERABLES Final Result Performing Organization Address [facility] Co de Phone Number [facility] [address] [place] [address] * CREATININE (02/08/2018 9:46 EDT) Pathologist [facility] Creatinine 0.69 0.52 - 1.04 mg/dl 02/08/2018 10:[address] [facility] GFR, Calculated 88 >60 ml/min/1.7 3m2 02/08/2018 10:[address] [facility] Comment: eGFR calculated using CKD-EPI equation for non Americans. Multiply eGFR by 1.16 for Americans. Blood specimen (specimen) BLOOD SPECIMEN / Unknown 02/08/2018 9:46 EDT 02/08/2018 10:15 EDT us Marcela Hartley MD CHEMISTRY & BLOOD GAS ORDERABLES Final Result Performing Organization Address City/[facility]/ZIP Co de Phone Number [facility] [address] [place] [address] * BUN (02/08/2018 9:46 EDT) Pathologist [facility] BUN 15 10 - 26 mg/dl 02/08/2018 10:[address] [facility] Blood specimen (specimen) BLOOD SPECIMEN / Unknown 02/08/2018 9:46 EDT 02/08/2018 10:15 EDT Marcela Hartley MD CHEMISTRY & BLOOD GAS ORDERABLES Final Result 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, unspecified vessel or lesion type ([facility])- Primary Nonrheumatic aortic valve stenosis Aortic valve [...] CLOSURE DEVICE 1 02/09/20 18 DISCHARGE INSTRUCTIONS 02/08/2018 DISCONTINUE SALINE LOCK/IV 2 02/08/2018 INSERT PERIPHERAL IV 1 02/08/2018 NOTIFY PHYSICIAN (SPECIFY) 2 02/08/2018 PATIENT AT LOW RISK FOR VTE: RISK OF MECHANICAL PROPHYLAXIS OUTWEIGHS 2 02/08/2018 PATIENT AT LOW RISK FOR VTE: RISK OF PHARMACOLOGIC PROPHYLAXIS OUTWEIG 2 02/08/2018 Transfer Count Last Ordered Date First Orde red Date NOTIFY PPS OF DISCHARGE COMPLETE 1 02/09/20 TEACHING SERVICE 1 02/08/2018 Discharge Count Last Ordered Date First Orde red Date DISCHARGE PATIENT 1 02/08/2018 documented in this encounter Care Teams Independent Jeweler Relationship Specialty Start Date End Date Kit Burch MD [address] [place] [address] [address] [place] [address] PCP - General 01/15/18 10/29/23 documented as of this encounter
--- OUTSIDE RECORDS SUMMARY | 2024-08-23 14:30 | XMS_ITS | Encounter Summary ---
Author Organization [facility] Address [address] [place] [address] Care Team Providers Care Credit Analyst Name Role Phone Kit Burch MD Primary Care Provider [phone] Reason for Visit * Reason Onset Date Comments Other 02/08/2018 Encounter Details Date Type Department Care Team (Late st Contact Info) Description 02/08/2018 Telephone [facility] Cardiothoracic Surgery - [facility] [address] [place] [address] Sharla Clements RN [address] [place] [address] Other Social History Tobacco Use Types Packs/Day [...] Mechanical Valve Utilized NA Antibiotic Prophylaxis Handout [employer] for Prevention of Infective Bacterial [...] surgery Note routed to Case Management and Nut Roaster if there are discharge needs anticipated documented in this encounter Plan of Treatment Upcoming Encounters Date Type Department Care Team (Late st Contact Info) Description 03/08/2025 11:00 EDT Office Visit [facility] Dermatology [address] [facility], [place] [address] Cynthia Salinas MD 350 [facility] [address] [place] [phone] 07/27/2025 Hospital Encounter [facility] OR [address] [place], [place] [phone] Vicki Main MD 111 [facility], [address] [place] [address] Scheduled Procedures Name Priority Associated Diagnoses Date/Ti me INSERTION, CRANIAL NERVE STIMULATOR CINTHIA (obstructive sleep apnea) documented as of this encounter Visit Diagnoses Not on filedocumented in this encounter Care Teams Credit Analyst Relationship Specialty Start Date End Date Kit Burch MD [address] [facility] [place] [address] [place] [address] PCP - General 01/15/18 10/29/23 documented as of this encounter
--- OUTSIDE RECORDS SUMMARY | 2024-08-23 14:30 | XMS_ITS | Encounter Summary ---
Author Organization [facility] Address [address] [place] [address] Care Team Providers Care Manager Employee Benefits Name Role Phone Kit Burch MD Primary Care Provider [phone] Reason for Visit * Reason Onset Date Comments Patient Information Update 02/09/2018 Encounter Details Date Type Department Care Team (Late st Contact Info) Description 02/09/2018 Telephone [facility] Cardiothoracic Surgery - [facility] [address] [place] [address] Sharla Clements, RN [address] [place] [address] Patient Information Update Social History Tobacco Use [...] Info) Description 03/08/2025 11:00 EDT Office Visit [facility] Dermatology [address] [facility], [place], [place] [address] Cynthia Salinas MD [address] [place] [address] [address] [place] [address] 07/27/2025 Hospital Encounter [facility] OR [address] [place] [address] Vicki Main MD 111 [facility], [facility], [address] [place] [address] Scheduled Procedures Name Priority Associated Diagnoses Date/Ti me INSERTION, CRANIAL NERVE STIMULATOR CINTHIA (obstructive sleep apnea) documented as of this encounter Visit Diagnoses Not on filedocumented in this encounter Care Teams Manager Employee Benefits Relationship Specialty Start Date End Date Kit Burch MD [address] [place] [phone] PCP - General 01/15/18 10/29/23 documented as of this encounter
--- OUTSIDE RECORDS SUMMARY | 2024-08-23 14:30 | XMS_ITS | Encounter Summary ---
Author Organization [facility] Address [address] [place] [address] Care Team Providers Care Humidifier Attendant Name Role Phone Unavailable Primary Care Provider Unavailabl e Encounter Details Date Type Department Care Team (Late st Contact Info) Description 06/09/2006 Results Only [facility] [address] [place], [place] [id number] Unknown, Provider, Social History Tobacco Use Types [...] EDT Office Visit [facility] Dermatology [address] [place] [address] Cynthia Salinas MD [address] [place] [address] [place] [phone] 07/27/2025 Hospital Encounter [facility] Main [place] [address] [place] [address] Vicki Main MD 111 [facility], [address] [place] [address] Scheduled Procedures Name Priority Associated [...] 06/09/2006 7:53 EST 06/09/2006 21:56 EST us Provider Unknown CHEMISTRY & BLOOD GAS ORDERA BLES Final Result [facility] [address] [place] [address] documented in this encounter Visit Diagnoses Not on filedocumented in this encounter
--- OUTSIDE RECORDS SUMMARY | 2024-08-23 14:30 | XMS_ITS | Encounter Summary ---
Author Organization [facility] Address [address] [place] [address] Care Team Providers Care Manager Intermediate Name Role Phone Jewel Fontenot MD Primary Care Provider [phone] Encounter Details Date Type Department Care Team (Late st Contact Info) Description 11/23/2017 Results Only [facility] [phone] Unknown, Provider, Social History Tobacco Use Types [...] 03/08/2025 11:00 EDT Office Visit [facility] Dermatology [address] [place] [address], [place], [place] [address] Cynthia Salinas MD [address] [place] [address] [place] [phone] 07/27/2025 Hospital Encounter [facility] Main [place] [address] [place] [address] Vicki Main MD 111 [facility], [facility], [address] [place] [address] Scheduled Procedures Name Priority [...] - there is no report. 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 us Provider Unknown IMVicki OTHER IMAGING ORDERABLES Final Result documented in this encounter Visit Diagnoses Not on filedocumented in this encounter Care Teams Manager Intermediate Relationship Specialty Start Date End Date Jewel Fontenot MD [address] [facility] [address] [place] [phone] PCP - General 06/01/15 01/14/18 documented as of this encounter
[2024-08-23 15:56] LABS: Anion Gap 7.1 mmol/L (3-11); BUN 23 mg/dL (7-18); CO2 29.9 mmol/L (21.0-32.0); CREATININE 1.4 mg/dL (0.55-1.02); Calcium 9.3 mg/dL (8.5-10.1); Chloride 105 mmol/L (98-107); Estimated GFR 38.75 (mL/min/1.73m2); Glucose 129 mg/dL (74-106); Potassium 4.3 mmol/L (3.5-5.1); Sodium 142 mmol/L (136-145)
== END 2024-08-23 14:19 | disposition home or self-care (01) ==
LOC: NCHCN 14:18
PROVIDERS: PCP Family Medicine; Visit Provider Family Medicine
DX: I10 Essential (primary) hypertension (principal)
CPT/HCPCS: 80048

== ENCOUNTER 2024-09-23 20:54 | Outpatient (REF) | payer MEDICARE, MEDICAID, SELFPAY ==
[2024-09-23 21:11] LABS: Anion Gap 6.8 mmol/L (3-11); BUN 30 mg/dL (7-18); CO2 32.2 mmol/L (21.0-32.0); CREATININE 1.5 mg/dL (0.55-1.02); Calcium 9.2 mg/dL (8.5-10.1); Chloride 109 mmol/L (98-107); Estimated GFR 35.67 (mL/min/1.73m2); Glucose 89 mg/dL (74-106); Sodium 148 mmol/L (136-145)
== END 2024-09-23 20:55 | disposition home or self-care (01) ==
LOC: NCHCN 20:54
PROVIDERS: PCP Family Medicine; Visit Provider Family Medicine
DX: E87.5 Hyperkalemia (principal)
CPT/HCPCS: 80048

== ENCOUNTER 2024-11-03 21:22 | Outpatient (REF) | payer MEDICARE, MEDICAID, SELFPAY ==
[2024-11-03 21:32] LABS: Anion Gap 9.7 mmol/L (3-11); BUN 52 mg/dL (7-18); CO2 26.3 mmol/L (21.0-32.0); CREATININE 2.1 mg/dL (0.55-1.02); Calcium 9.5 mg/dL (8.5-10.1); Chloride 102 mmol/L (98-107); Estimated GFR 23.82 (mL/min/1.73m2); Glucose 112 mg/dL (74-106); Potassium 5.2 mmol/L (3.5-5.1); Sodium 138 mmol/L (136-145)
== END 2024-11-03 21:23 | disposition home or self-care (01) ==
LOC: NCHCN 21:22
PROVIDERS: PCP Family Medicine; Visit Provider Family Medicine
DX: I10 Essential (primary) hypertension (principal)
CPT/HCPCS: 80048

== ENCOUNTER 2024-11-08 15:31 | Outpatient (REF) | payer MEDICARE, MEDICAID, SELFPAY ==
[2024-11-08 16:01] LABS: Anion Gap 11.2 mmol/L (3-11); BUN 56 mg/dL (7-18); CO2 24.8 mmol/L (21.0-32.0); CREATININE 2.1 mg/dL (0.55-1.02); Chloride 104 mmol/L (98-107); Estimated GFR 23.82 (mL/min/1.73m2); Glucose 150 mg/dL (74-106); Sodium 140 mmol/L (136-145)
== END 2024-11-08 15:32 | disposition home or self-care (01) ==
LOC: NCHCN 15:31
PROVIDERS: PCP Family Medicine; Visit Provider Family Medicine
DX: I50.32 Chronic diastolic (congestive) heart failure (principal)
CPT/HCPCS: 80048

== ENCOUNTER → 2024-11-30 09:37 | Outpatient (BNVA) | payer MEDICARE, MEDICAID, SELFPAY | PROVIDERS: PCP Family Medicine; Referring Provider Family Medicine; Visit Provider Podiatrist | DX: L60.3 Nail dystrophy (principal); M79.671 Pain in right foot; M79.672 Pain in left foot; I70.203 Unspecified atherosclerosis of native arteries of extremities, bilateral legs; G62.9 Polyneuropathy, unspecified; B35.1 Tinea unguium; L60.0 Ingrowing nail; G57.61 Lesion of plantar nerve, right lower limb; G57.62 Lesion of plantar nerve, left lower limb; I73.89 Other specified peripheral vascular diseases; I70.223 Atherosclerosis of native arteries of extremities with rest pain, bilateral legs; R09.89 Other specified symptoms and signs involving the circulatory and respiratory systems; L65.9 Nonscarring hair loss, unspecified; I83.93 Asymptomatic varicose veins of bilateral lower extremities; R23.8 Other skin changes; L60.2 Onychogryphosis | CPT/HCPCS: 11721; 11730; 64455; J0702; J1100 ==

== ENCOUNTER 2024-12-07 13:28 | Outpatient (REF) | payer MEDICARE, MEDICAID, SELFPAY ==
[2024-12-07 21:34] LABS: BUN 77 mg/dL (7-18); CREATININE 2.8 mg/dL (0.55-1.02); Calcium 9.5 mg/dL (8.5-10.1); Chloride 103 mmol/L (98-107); Estimated GFR 16.76 (mL/min/1.73m2); Glucose 101 mg/dL (74-106); Potassium 4.5 mmol/L (3.5-5.1); Sodium 138 mmol/L (136-145)
== END 2024-12-07 13:29 | disposition home or self-care (01) ==
LOC: NCHCN 13:28
PROVIDERS: PCP Family Medicine; Visit Provider Family Medicine
DX: R06.02 Shortness of breath (principal)
CPT/HCPCS: 80048

== ENCOUNTER 2024-12-26 15:51 | Outpatient (REF) | payer MEDICARE, MEDICAID, SELFPAY ==
[2024-12-26 14:59] LABS: HCT 35.1 % (36.0-46.0); HGB 11.8 g/dL (11.2-15.7); MCH 32.9 pg (27.0-33.0); MCHC 33.6 % (32.0-36.0); MCV 98 fL (80-95); MPV 10.4 fL (8.0-11.0); Platelet Count 236 10^3/uL (130-400); RBC 3.59 10^6/uL (3.93-5.22); RDW 14.1 % (11.7-14.6); RDW-SD 50.4 fL; WBC 8.71 10^3/uL (4.4-10.8)
[2024-12-26 15:12] LABS: Anion Gap 6.2 mmol/L (3-11); BUN 23 mg/dL (7-18); CO2 31.8 mmol/L (21.0-32.0); CREATININE 1.6 mg/dL (0.55-1.02); Calcium 9.2 mg/dL (8.5-10.1); Chloride 103 mmol/L (98-107); Estimated GFR 32.81 (mL/min/1.73m2); Glucose 102 mg/dL (74-106); Potassium 4.2 mmol/L (3.5-5.1); Sodium 141 mmol/L (136-145)
== END 2024-12-26 15:52 | disposition home or self-care (01) ==
LOC: NCHCN 15:51
PROVIDERS: PCP Family Medicine; Visit Provider Family Medicine
DX: N18.30 Chronic kidney disease, stage 3 unspecified (principal)
CPT/HCPCS: 80048; 85027

== ENCOUNTER → 2025-01-11 09:52 | Outpatient (BNVA) | payer MEDICARE, MEDICAID, SELFPAY | PROVIDERS: PCP Family Medicine; Referring Provider Family Medicine; Visit Provider Podiatrist | DX: L60.3 Nail dystrophy (principal); M79.671 Pain in right foot; M79.672 Pain in left foot; B35.1 Tinea unguium; L60.0 Ingrowing nail; I70.203 Unspecified atherosclerosis of native arteries of extremities, bilateral legs; G62.9 Polyneuropathy, unspecified; I87.2 Venous insufficiency (chronic) (peripheral); G57.82 Other specified mononeuropathies of left lower limb; G57.81 Other specified mononeuropathies of right lower limb; I73.89 Other specified peripheral vascular diseases; I70.223 Atherosclerosis of native arteries of extremities with rest pain, bilateral legs; R09.89 Other specified symptoms and signs involving the circulatory and respiratory systems; R60.0 Localized edema; R20.8 Other disturbances of skin sensation; I83.93 Asymptomatic varicose veins of bilateral lower extremities; R23.8 Other skin changes; L60.2 Onychogryphosis | CPT/HCPCS: 11719 ==

== ENCOUNTER 2025-03-23 14:40 | Emergency (ER) | payer MEDICARE, SELFPAY ==
[2025-03-23] VITALS (34 sets, daily range): BP systolic 125–167; BP diastolic 42–107; PULSE 81–97; RESP 14–26; TEMP 36.6; O2SAT 87–100
--- NOTE | 2025-03-23 14:30 | RT.EKG_ITS ---
APPROVED REPORT Exam: Resting ECG Reason for Exam: palp Patient Location: E HR:89 bpm ECG Measurements Heart Rate 89 AXIS KS 154 P 50 QRSd 150 QRS 38 QT 428 T 192 QTc 521 Conclusion Sinus rhythm...normal P axis, V-rate 60- 99 Left bundle branch block...QRSd>120, broad/notched R ST elevation secondary to IVCD...Multiple VCG criteria No STEMI
--- NOTE | 2025-03-23 14:57 | W.ED.GENAD ---
Discharge Plan Disposition Patient Disposition: Home Discharge Details Clinical Impression: Heart failure Primary Care Provider: Delmy Limon ED Provider: Chapincito Paniagua Home Meds and New Rx's Prescriptions: Continued potassium chloride 10 mEq capsule, extended release 10 meq PO DAILY sertraline 100 mg tablet 100 mg PO DAILY omeprazole 40 mg capsule,delayed release(DR/EC) 40 mg PO DAILY levothyroxine 100 mcg capsule 100 mcg PO DAILY benzonatate 100 mg capsule 100 mg PO TID furosemide 20 mg tablet 20 mg PO DAILY diltiazem HCl 30 mg tablet 30 mg PO ONCE fluticasone propionate 50 mcg/actuation blister with device 1 inh inhalation BID aspirin [Adult Low Dose Aspirin] 81 mg tablet,delayed release (DR/EC) 81 mg PO DAILY bupropion HCl 150 mg tablet extended release 24 hr 150 mg PO QAM ascorbate calcium (vitamin C) 500 mg tablet 500 mg PO DAILY docusate sodium 100 mg capsule 100 mg PO DAILY gabapentin 100 mg capsule 100 mg PO TID guaifenesin [Mucinex] 600 mg tablet extended release 12hr 600 mg PO Q12H PRN acetaminophen [Tylenol Extra Strength] 500 mg tablet 500 mg PO Q6H PRN ketoconazole 2 % cream 1 applic topical DAILY Qty: 120 6RF Rx Instructions: Apply to toenails once daily simvastatin 20 mg/5 mL (4 mg/mL) suspension 20 mg PO DAILY omega 1-uum-bsg-fish oil [Fish Oil] 60-90-500 mg capsule 1 cap PO DAILY cholecalciferol (vitamin D3) 10 mcg (400 unit) capsule 10 mcg PO DAILY calcium carbonate [Tums] 200 mg calcium (500 mg) tablet,chewable 200 mg PO DAILY atorvastatin 40 mg tablet 40 mg PO DAILY Patient Comments: TAKE ONE TABLET BY MOUTH EVERY DAY Discharge Instructions Instructions: Heart Failure ED Additional Instructions: Please follow-up with your primary care provider regarding your visit to the emergency department today. Be sure to discuss results of all test performed here today to include radiology, and laboratory testing as well as results for any pending cultures. Should your symptoms worsen, or if you develop new concerning symptoms, please return immediately emergency department for further evaluation. HPI General Date/Time Provider Initiated Documentation: 03/23/25 14:51. HPI Narrative: MDM/Narrative: Initial Assessment: 79-year-old female with palpitations, chest pain, pressure, bloating, and abdominal pain. History of pleural effusion, CHF, and irregular heart rate. Recent hospitalization for CHF. Differential Diagnosis: - Pulmonary embolism: Considered due to chest pain and dyspnea. CT chest ordered. - Pneumonia: History of recent pneumonia. CT chest to assess progression. - DVT: Considered due to leg pain and cramps. Leg ultrasound ordered. - CHF exacerbation: Symptoms suggest possible exacerbation. CT chest to assess condition. - Abdominal pathology: Abdominal pain with tenderness. Imaging studies ordered. ED Course: - CT chest ordered. - Leg ultrasound ordered. - Labs ordered to monitor inflammatory markers. [id number] Results reviewed. DVT study is negative for acute findings, CT PE confirms pulmonary edema seen on chest x-ray and shows no acute pulmonary emboli. No evidence of focal infiltrate suggesting the patient has improved from her recent pneumonia, patient also does not have a leukocytosis today. Troponins are at the patient's baseline, with no significant delta. Given noted pulmonary edema, patient is treated with IV Lasix. After further observation in the emergency department the patient underwent ambulatory pulse ox testing was able to maintain her saturations without significant symptomatic issue as well during her walk. Plan of care discussed with the patient and her daughter are agreeable to plan for discharge home to follow-up with her cardiology team at [facility]. Clinical Impression: - CHF exacerbation - Leg pain - Stage 3 kidney disease This document was created with assistance from [employer] The patient consented to its use. Disposition: Home HPI: The patient is a 79-year-old female with a history of congestive heart failure (CHF) and pleural effusion, presenting with palpitations. She reports severe chest pain and pressure since last night, exacerbated by movement, and accompanied by abdominal bloating. An irregular heart rate was noted by her home health aide. She is not currently on anticoagulant therapy. The patient was recently hospitalized for pleural effusion and CHF. Although she initially felt better post-discharge, her condition has since deteriorated. She experienced mild chills and dyspnea last night. She remains compliant with her medication regimen. She denies any urinary symptoms, diarrhea, or dysuria. She completed a course of antibiotics for pneumonia last Thursday. Her oxygen saturation fluctuated between 88-93% last night, contributing to dyspnea, which has since improved. She has been experiencing abdominal pain since last night. Although, chart review from recent hospitalization at [facility] shows that she was also complaining of abdominal pain and had a negative CT abdomen pelvis with IV contrast. Family also notes that the patient is weighed daily, with a dry weight of 156 pounds, which was her weight this morning. The patient reports leg cramps and soreness, particularly in the left leg, persisting for several weeks. She describes intermittent muscle spasms (Charley horses) and hip discomfort. 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 S She has been encouraged to walk 2-3 times daily but had to stop twice today due to pressure. She has stage 3 chronic kidney disease and is scheduled to see a business office associate next month. She is not currently on dialysis. A complete workup for valve deterioration is scheduled for 14 April 2025. She is under the care of both a morgue librarian and a business office associate. The patient occasionally experiences headaches that radiate to her eye and chin, associated with severe pain. A recent head scan was normal. Trigeminal neuralgia is suspected, but no medication has been prescribed. Chart review from [facility] shows the patient was recently referred to the structural heart disease team as there is high concern for aortic valve stenosis in her replacement valve, suspect the patient will need to undergo TAVR. Family notes that she is scheduled to have a full cardiac workup April 14 at [facility]. Chart review also shows a known LAD lesion on prior cardiac catheterization that is being followed. PAST SURGICAL HISTORY: Bilateral common iliac stents placement for pseudoaneurysm. ROS: Negative besides as mentioned above Exam: Vital signs: Reviewed. General Appearance: Alert and oriented. No acute distress. HEENT: NCAT, EOMI, not icteric. External ears normal. No rhinorrhea. Moist mucous membranes. Neck: Supple, full range of motion, no observable masses, No meningeal sign. Respiratory: No Respiratory distress. No tachypnea. Cardiovascular: RRR, no edema. Gastrointestinal: Mild abdominal tenderness. Back: No midline tenderness to palpation or palpable step-offs of the C/T/L spine. Musculoskeletal: Left leg soreness, history of Charley horses and leg cramps. Skin: Warm and dry, no rash. Neurological: Normal Gait, Grossly intact. Psychiatric: Appropriate for situation. Rhythm: NSR Rate: 89 bpm Haddock: Normal axis Intervals: Normal intervals Other findings: No acute ST segment or T wave changes to suggest acute ischemia; left bundle branch block and although there is no prior EKG to compare to, via chart review through [facility], a cardiology note from December 2024 notes a history of left bundle branch block. Labs: Laboratory Tests Range/Units 03/23/25 03/23/25 15:05 16:07 WBC (4.4-10.8) 10^3/uL 10.67 RBC (3.93-5.22) 10^6/uL 4.01 Hgb (11.2-15.7) g/dL 13.0 Hct (36.0-46.0) % 38.9 MCV (80-95) fL 97 H MCH (27.0-33.0) pg 32.4 MCHC (32.0-36.0) % 33.4 RDW (11.7-14.6) % 12.4 Plt Count (130-400) 10^3/uL 321 MPV (8.0-11.0) fL 9.6 Immature Gran % % 0.4 Neutrophils % % 60.3 Lymphocytes % % 22.5 Monocytes % % 12.6 Eosinophils % % 3.5 Basophils % % 0.7 Nucleated RBC % (0.0-0.3) % 0.0 Absolute Neutrophils (1.2-6.7) 10^3/uL 6.44 Absolute Lymphocytes (1.2-3.4) 10^3/uL 2.40 Absolute Monocytes (0.1-0.8) 10^3/uL 1.34 H Absolute Eosinophils (0.0-0.7) 10^3/uL 0.37 Absolute Basophils (0.0-0.2) 10^3/uL 0.08 PT (9.1-11.1) sec 11.1 INR (0.9-1.1) 1.1 APTT (20.6-30.2) sec 28.0 VBG Lactate (<or=2.0) mmol/L 1.1 Sodium (136-145) mmol/L 138 Potassium (3.5-5.1) mmol/L 3.7 Chloride (98-107) mmol/L 99 Carbon Dioxide (21.0-32.0) mmol/L 30.7 Anion Gap (3-11) mmol/L 8.3 BUN (7-18) mg/dL 19 H Creatinine (0.55-1.02) mg/dL 1.3 H Est GFR (CKD-EPI 2020) (mL/min/1.73m2) 42.09 Glucose (74-106) mg/dL 94 Calcium (8.5-10.1) mg/dL 9.4 Magnesium (1.8-2.4) mg/dL 2.1 Total Bilirubin (0.2-1.0) mg/dL 0.7 AST (15-37) U/L 51 H ALT (14-59) U/L 69 H Alkaline Phosphatase (46-116) U/L 158 H Troponin I (<or=51) ng/L 30 32 NT-Pro-B Natriuret Pep (<300) pg/mL 55897 H Total Protein (6.4-8.2) g/dL 8.1 Albumin (3.4-5.0) g/dL 3.3 L Radiology: Exam(s) XR PORTABLE CHEST AP EXAM: XR PORTABLE CHEST AP CLINICAL HISTORY: Chest pain. TECHNIQUE: 2D digital imaging was performed. COMPARISON: CR XR CHEST 2V PA LATERAL from 11/16/2023 FINDINGS: Single AP portable view. Again noted are sternotomy wires and aortic valve TAVR. Mild cardiomegaly. There is now a bilateral interstitial pattern in the lung alexander, probably element of pulmonary edema. There appears to be some confluent in the lingular segment of the left lung. There are no obvious pleural effusions IMPRESSION: Cardiomegaly. Aortic valve TAVR. Sternotomy. Interstitial pulmonary edema. DATA REPOSITORY: RADIATION DOSE DELIVERED: Exam(s) US LOWER EXTREMITY VENOUS LT EXAM: US LOWER EXTREMITY VENOUS LT CLINICAL HISTORY: Left calf pain TECHNIQUE: Grayscale, color, and doppler imaging of the deep venous system of the left lower extremity was performed. COMPARISON: US US BREAST LT LIMITED from 01/05/2024 FINDINGS: There is no evidence of intraluminal thrombus and there is normal compression and augmentation demonstrated within the common femoral vein, femoral vein, and popliteal vein. In the ipsilateral calf the interrogated veins also exhibit normal compression/ augmentation properties. The ipsilateral saphenofemoral junction is patent. IMPRESSION: 1. No evidence of DVT in the left lower extremity. Exam(s) CT CHEST PE CTA EXAM: CT CHEST PE CTA CLINICAL HISTORY: HYpoxia, tachypnea, preceded by leg pain. TECHNIQUE: Imaging Protocol: CT angiography of the chest was performed using pulmonary embolus protocol. Multi planar reconstructions were performed. CONTRAST MATERIAL: Intravenous: Omnipaque 350 Contrast volume: 70 cc COMPARISON: CR XR PORTABLE CHEST AP from 03/23/2025 FINDINGS: CHEST: PULMONARY ARTERIES: There are no intraluminal filling defects to suggest acute pulmonary emboli. LUNGS: There are increased interstitial markings throughout both lung alexander with some confluence bilaterally and there also bilateral moderate size right larger than left pleural effusions. Scratch MEDIASTINUM: There is no hilar nor mediastinal adenopathy. CARDIAC: There is sternotomy wires and cardiomegaly and a prosthetic aortic valve-probable TAVR.Caliber of the thoracic aorta is within normal limits. There is no significant shift of the interventricular septum. PARTIALLY VISUALIZED UPPERMOST ABDOMEN: There is no ascites. Cholelithiasis noted. Somewhat atrophic appearing right kidney. Spleen size normal. No adrenal masses. OSSEOUS: Degenerative changes in the right shoulder glenohumeral joint. In.. IMPRESSION: 1. No evidence of acute pulmonary emboli. No evidence of pulmonary infarction. 2. Bilateral interstitial and partially confluent infiltrates in bilateral right larger than left pleural effusions. 3. Other lung findings together with sternotomy wires, cardiomegaly, and prosthetic aortic valve point to a diagnosis of pulmonary edema. Right kidney appears mildly atrophic. Gallstones noted. Report called by myself to ER provider 03/23/2025 at 4:55 p.m. RADIATION DOSE DELIVERED: 111.23mGy.cm Total DLP DATA REPOSITORY: All CT scans at this facility are submitted to the National Radiology Data Registry (NRDR) Dose Index Registry (DIR) with the [employer] (ACR). RADIATION OPTIMIZATION: All CT scans at this facility use at least one of these dose optimization techniques: automated exposure control; mA and/or kV adjustment per patient size (includes targeted exams where dose is matched to clinical indication); or iterative reconstruction. Related Data Home Medications ?Medication ?Instructions ?Recorded ?Confirmed omega 5-kar-vgd-fish oil 60 mg-90 1 cap PO DAILY 03/03/24 03/23/25 mg-500 mg capsule (Fish Oil) simvastatin 20 mg/5 mL (4 mg/mL) 20 mg PO DAILY 03/03/24 03/23/25 oral suspension ascorbate calcium (vitamin C) 500 500 mg PO DAILY 03/10/24 03/23/25 mg tablet aspirin 81 mg tablet,delayed 81 mg PO DAILY 03/10/24 03/23/25 release (Adult Low Dose Aspirin) benzonatate 100 mg capsule 100 mg PO TID 03/10/24 03/23/25 bupropion HCl 150 mg 24 hr tablet, 150 mg PO QAM 03/10/24 03/23/25 extended release diltiazem HCl 30 mg tablet 30 mg PO ONCE 03/10/24 03/23/25 fluticasone propionate 50 1 inh inhalation BID 03/10/24 03/23/25 mcg/actuation blister powder for inhalation furosemide 20 mg tablet 20 mg PO DAILY 03/10/24 03/23/25 levothyroxine 100 mcg capsule 100 mcg PO DAILY 03/10/24 03/23/25 omeprazole 40 mg capsule,delayed 40 mg PO DAILY 03/10/24 03/23/25 release potassium chloride 10 mEq 10 meq PO DAILY 03/10/24 03/23/25 capsule,extended release sertraline 100 mg tablet 100 mg PO DAILY 03/10/24 03/23/25 calcium carbonate (Tums) 200 mg PO DAILY 07/29/24 03/23/25 cholecalciferol (vitamin D3) 10 10 mcg PO DAILY 07/29/24 03/23/25 mcg (400 unit) capsule acetaminophen 500 mg tablet 500 mg PO Q6H PRN 08/12/24 03/23/25 (Tylenol Extra Strength) docusate sodium 100 mg capsule 100 mg PO DAILY 08/12/24 03/23/25 gabapentin 100 mg capsule 100 mg PO TID 08/12/24 03/23/25 guaifenesin 600 mg tablet, 600 mg PO Q12H PRN 08/12/24 03/23/25 extended release 12 hr (Mucinex) ketoconazole 2 % topical cream 1 applic topical DAILY #120 grams 11/30/24 03/23/25 atorvastatin 40 mg tablet 40 mg PO DAILY 08/28/25 08/28/25 Previous Rx's ?Medication ?Instructions ?Recorded ketoconazole 2 % topical cream 1 applic topical DAILY #120 grams 11/30/24 Allergies Allergy/AdvReac Type Severity Reaction Status Date / Time morphine Allergy Unknown Unknown Verified 03/23/25 14:51 General Stated Complaint: Chest Pain JOSE M: 3 Course Vital Signs Vital signs: Vital Signs Temperature 36.6 C 03/23/25 14:44 Pulse 89 03/23/25 14:44 Respiratory Rate 18 03/23/25 14:44 Blood Pressure 125/73 03/23/25 14:44 Pulse Oximetry 93 03/23/25 14:44 Temperature 36.6 C 03/23/25 14:44 Pulse 89 03/23/25 14:44 Respiratory Rate 18 03/23/25 14:44 Blood Pressure 125/73 03/23/25 14:44 Pulse Oximetry 93 03/23/25 14:44 Oxygen Delivery Method Room Air 03/23/25 14:44 Oxygen Flow Rate 0 03/23/25 14:44 Pain Level 0 03/23/25 14:44 PFSH All Active Problems (Updated 03/23/25 @ 18:39 by Chapincito Paniagua MD) Heart failure (Acute) PAD (peripheral artery disease) (Acute) PVD (peripheral vascular disease) (Chronic) Ingrown toenail (Acute) Critical limb ischemia of both lower extremities (Acute) Foot pain (Acute) Aortic valve disorder (Acute) Obstructive sleep apnea (Chronic) Interdigital neuroma of right foot (Acute) Interdigital neuroma of left foot (Acute) Nail dystrophy (Acute) Onychomycosis (Acute) Venous insufficiency (Acute) Atherosclerosis of artery of both lower extremities (Acute) Neuropathy (Acute) Prediabetes (Acute) High blood pressure (Chronic) Sensorineural hearing loss (Acute) Surgical History S/P insertion of iliac artery stent [facility] 09/2024; post-op complications. Hx of hysterectomy Social History Smoking/Tobacco Use Status: Never Smoking risk assessment performed?: Yes Alcohol Intake: current Alcohol Intake frequency: a few times a month Alcohol type: other Drug use: Never Substance use type: does not use
--- NOTE | 2025-03-23 15:15 | DI.CT_ITS ---
Exam(s) CT CHEST PE CTA EXAM: CT CHEST PE CTA CLINICAL HISTORY: HYpoxia, tachypnea, preceded by leg pain. TECHNIQUE: Imaging Protocol: CT angiography of the chest was performed using pulmonary embolus protocol. Multi planar reconstructions were performed. CONTRAST MATERIAL: Intravenous: Omnipaque 350 Contrast volume: 70 cc COMPARISON: CR XR PORTABLE CHEST AP from 03/23/2025 FINDINGS: CHEST: PULMONARY ARTERIES: There are no intraluminal filling defects to suggest acute pulmonary emboli. LUNGS: There are increased interstitial markings throughout both lung alexander with some confluence bilaterally and there also bilateral moderate size right larger than left pleural effusions. Scratch MEDIASTINUM: There is no hilar nor mediastinal adenopathy. CARDIAC: There is sternotomy wires and cardiomegaly and a prosthetic aortic valve-probable TAVR.Caliber of the thoracic aorta is within normal limits. There is no significant shift of the interventricular septum. PARTIALLY VISUALIZED UPPERMOST ABDOMEN: There is no ascites. Cholelithiasis noted. Somewhat atrophic appearing right kidney. Spleen size normal. No adrenal masses. OSSEOUS: Degenerative changes in the right shoulder glenohumeral joint. In.. IMPRESSION: 1. No evidence of acute pulmonary emboli. No evidence of pulmonary infarction. 2. Bilateral interstitial and partially confluent infiltrates in bilateral right larger than left pleural effusions. 3. Other lung findings together with sternotomy wires, cardiomegaly, and prosthetic aortic valve point to a diagnosis of pulmonary edema. Right kidney appears mildly atrophic. Gallstones noted. Report called by myself to ER provider 03/23/2025 at 4:55 p.m. RADIATION DOSE DELIVERED: 111.23mGy.cm Total DLP DATA REPOSITORY: All CT scans at this facility are submitted to the National Radiology Data Registry (NRDR) Dose Index Registry (DIR) with the [employer] (ACR). RADIATION OPTIMIZATION: All CT scans at this facility use at least one of these dose optimization techniques: automated exposure control; mA and/or kV adjustment per patient size (includes targeted exams where dose is matched to clinical indication); or iterative reconstruction.
--- NOTE | 2025-03-23 15:15 | DI.US_ITS ---
Exam(s) US LOWER EXTREMITY VENOUS LT EXAM: US LOWER EXTREMITY VENOUS LT CLINICAL HISTORY: Left calf pain TECHNIQUE: Grayscale, color, and doppler imaging of the deep venous system of the left lower extremity was performed. COMPARISON: US US BREAST LT LIMITED from 01/05/2024 FINDINGS: There is no evidence of intraluminal thrombus and there is normal compression and augmentation demonstrated within the common femoral vein, femoral vein, and popliteal vein. In the ipsilateral calf the interrogated veins also exhibit normal compression/ augmentation properties. The ipsilateral saphenofemoral junction is patent. IMPRESSION: 1. No evidence of DVT in the left lower extremity. DATA REPOSITORY:
[2025-03-23 15:18] LABS: Abs Immature Grans 0.04 10^3/uL (0.0-0.06); HCT 38.9 % (36.0-46.0); HGB 13.0 g/dL (11.2-15.7); Immature Grans % 0.4 %; MCH 32.4 pg (27.0-33.0); MCHC 33.4 % (32.0-36.0); MCV 97 fL (80-95); MPV 9.6 fL (8.0-11.0); Platelet Count 321 10^3/uL (130-400); RBC 4.01 10^6/uL (3.93-5.22); RDW 12.4 % (11.7-14.6); RDW-SD 44.6 fL; WBC 10.67 10^3/uL (4.4-10.8)
--- NOTE | 2025-03-23 15:21 | DI.RAD_ITS ---
Exam(s) XR PORTABLE CHEST AP EXAM: XR PORTABLE CHEST AP CLINICAL HISTORY: Chest pain. TECHNIQUE: 2D digital imaging was performed. COMPARISON: CR XR CHEST 2V PA LATERAL from 11/16/2023 FINDINGS: Single AP portable view. Again noted are sternotomy wires and aortic valve TAVR. Mild cardiomegaly. There is now a bilateral interstitial pattern in the lung alexander, probably element of pulmonary edema. There appears to be some confluent in the lingular segment of the left lung. There are no obvious pleural effusions IMPRESSION: Cardiomegaly. Aortic valve TAVR. Sternotomy. Interstitial pulmonary edema. DATA REPOSITORY: RADIATION DOSE DELIVERED:
[2025-03-23 15:34] LABS: INR 1.1 (0.9-1.1); PTT Activated 28.0 sec (20.6-30.2); Prothrombin Time 11.1 sec (9.1-11.1)
[2025-03-23 15:57] LABS: ALT 69 U/L (14-59); AST 51 U/L (15-37); Albumin 3.3 g/dL (3.4-5.0); Alkaline Phosphatase 158 U/L (46-116); Anion Gap 8.3 mmol/L (3-11); BUN 19 mg/dL (7-18); Bilirubin, Total 0.7 mg/dL (0.2-1.0); CO2 30.7 mmol/L (21.0-32.0); Calcium 9.4 mg/dL (8.5-10.1); Chloride 99 mmol/L (98-107); Estimated GFR 42.09 (mL/min/1.73m2); Glucose 94 mg/dL (74-106); Magnesium 2.1 mg/dL (1.8-2.4); NT-proBNP 12023 pg/mL (<300); Potassium 3.7 mmol/L (3.5-5.1); Sodium 138 mmol/L (136-145); Total Protein 8.1 g/dL (6.4-8.2); Troponin I 30 ng/L (<or=51)
[2025-03-23] MEDS: Omnipaque 350 MG/ML 100 ML BTL IJ (16:17)
[2025-03-23] MEDS: Normal Saline Flush 10 ML SYR IVP ×2 (16:17→16:51)
[2025-03-23] MEDS: Normal Saline - Diluent 50 ML VIAL IJ (16:17)
[2025-03-23 16:38] LABS: Troponin I 32 ng/L (<or=51)
[2025-03-23] MEDS: Furosemide 40 MG/4 ML VIAL IVP (16:50)
== END 2025-03-23 19:14 | disposition home or self-care (01) ==
PROVIDERS: Emergency Provider General Practice; PCP Family Medicine
DX: I50.9 Heart failure, unspecified (principal); N18.30 Chronic kidney disease, stage 3 unspecified
CPT/HCPCS: 99285; 99284; 96374; 71275; 80053; 93005; 71045; 83605; 83735; 83880; 84484; 85025; 85610; 85730; 93010; 93971; J1938; J3490

== ENCOUNTER 2025-05-09 20:16 | Outpatient (REF) | payer MEDICARE, SELFPAY ==
[2025-05-09 21:06] LABS: Abs Immature Grans 0.03 10^3/uL (0.0-0.06); HCT 32.7 % (36.0-46.0); HGB 10.5 g/dL (11.2-15.7); Immature Grans % 0.3 %; MCH 32.4 pg (27.0-33.0); MCHC 32.1 % (32.0-36.0); MCV 101 fL (80-95); MPV 11.0 fL (8.0-11.0); Platelet Count 226 10^3/uL (130-400); RBC 3.24 10^6/uL (3.93-5.22); RDW 16.5 % (11.7-14.6); RDW-SD 59.8 fL; WBC 9.53 10^3/uL (4.4-10.8)
[2025-05-09 21:07] LABS: Anion Gap 10.8 mmol/L (3-11); BUN 27 mg/dL (7-18); CO2 30.2 mmol/L (21.0-32.0); Calcium 8.3 mg/dL (8.5-10.1); Chloride 94 mmol/L (98-107); Estimated GFR 32.81 (mL/min/1.73m2); Glucose 133 mg/dL (74-106); Potassium 3.6 mmol/L (3.5-5.1); Sodium 135 mmol/L (136-145)
== END 2025-05-09 20:17 | disposition home or self-care (01) ==
LOC: NCHCN 20:16
PROVIDERS: PCP Family Medicine; Visit Provider Family Medicine
DX: I50.30 Unspecified diastolic (congestive) heart failure (principal)
CPT/HCPCS: 80048; 85025

== ENCOUNTER 2025-06-05 15:16 | Outpatient (REF) | payer MEDICARE, SELFPAY ==
[2025-06-05 21:27] LABS: Abs Immature Grans 0.07 10^3/uL (0.0-0.06); HCT 37.8 % (36.0-46.0); HGB 12.0 g/dL (11.2-15.7); Immature Grans % 0.5 %; MCH 31.3 pg (27.0-33.0); MCHC 31.7 % (32.0-36.0); MCV 98 fL (80-95); MPV 10.7 fL (8.0-11.0); Platelet Count 302 10^3/uL (130-400); RBC 3.84 10^6/uL (3.93-5.22); RDW 15.0 % (11.7-14.6); RDW-SD 54.4 fL; WBC 12.74 10^3/uL (4.4-10.8)
[2025-06-05 21:45] LABS: ALT 145 U/L (14-59); AST 126 U/L (15-37); Albumin 2.9 g/dL (3.4-5.0); Alkaline Phosphatase 147 U/L (46-116); Anion Gap 8.5 mmol/L (3-11); BUN 26 mg/dL (7-18); Bilirubin, Total 0.4 mg/dL (0.2-1.0); CO2 34.5 mmol/L (21.0-32.0); Calcium 9.2 mg/dL (8.5-10.1); Chloride 95 mmol/L (98-107); Glucose 79 mg/dL (74-106); Potassium 3.4 mmol/L (3.5-5.1); Sodium 138 mmol/L (136-145); Total Protein 9.0 g/dL (6.4-8.2)
[2025-06-05 21:51] LABS: RBC Morphology Normal
== END 2025-06-05 15:17 | disposition home or self-care (01) ==
LOC: NCHCN 15:16
PROVIDERS: PCP Family Medicine; Visit Provider Internal Medicine
DX: D64.9 Anemia, unspecified (principal)
CPT/HCPCS: 80053; 85025

== ENCOUNTER → 2025-06-05 16:28 | Outpatient (CLI) | payer MEDICARE, MEDICAID, SELFPAY ==
--- NOTE | 2025-06-05 | DI.RAD_ITS ---
Exam(s) XR WRIST RT COMPLETE EXAM: XR WRIST RT COMPLETE CLINICAL HISTORY: M25.431 Effusion RT wrist, swelling of joint rt wrist. TECHNIQUE: 2D digital imaging was performed. COMPARISON: No exams were available for comparison FINDINGS: 3 views No evidence of acute fracture dislocation nor significant ulnar variance. Bone density is age-appropriate. There are advanced degenerative changes in the 1st carpometacarpal joint. Vascular calcifications noted in both the radial and ulnar arteries IMPRESSION: Advanced degenerative changes in the thumb carpometacarpal joint. No fractures evident. DATA REPOSITORY: RADIATION DOSE DELIVERED:
--- NOTE | 2025-06-05 16:47 | DI.VRAD_ITS ---
PROCEDURE INFORMATION: Exam: XR Right Wrist Exam date and time: 06/05/2025 4:27 PM Age: 79 years old Clinical indication: Other: Effusion RT wrist, swelling of joint RT wrist TECHNIQUE: Imaging protocol: Radiologic exam of the right wrist. Views: 3 or more views. COMPARISON: No relevant prior studies available. FINDINGS: Bones/joints: Severe degenerative changes in the thumb carpometacarpal joint . Degenerative changes in the carpal bones and radiocarpal joint There is no evidence of acute fracture.There is no evidence of malalignment or dislocation. 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 Dictated and Authenticated by: Omayra Wen MD. Orderin Alexandr Ruff MD
== END ==
PROVIDERS: PCP Family Medicine; Visit Provider Internal Medicine
DX: M25.431 Effusion, right wrist (principal); M19.031 Primary osteoarthritis, right wrist
CPT/HCPCS: 73110

== ENCOUNTER → 2025-06-07 01:17 | Outpatient (CLI) | payer MEDICARE, MEDICAID, SELFPAY ==
--- NOTE | 2025-06-07 13:33 | DI.US_ITS ---
APPROVED REPORT EXAM: Comprehensive 2D, Doppler, and color-flow Echocardiogram Patient Location: Out-Patient Billing And Quality Technician: Adela Roberson RDCS (AE) Indications: Acute on chronic heart failure, Preserved EF, TAVR 04/2025 follow up Other Information Study Quality: Fair. Technically limited study due to body habitus. Conclusion Technically difficult and overall suboptimal study Normal left ventricular wall thickness and chamber size. Ejection fraction is 45 to 50%. There are no segmental wall motion abnormalities Normal right ventricular size and function Both atria are severely enlarged There is a bioprosthetic aortic valve replacement. There is trace aortic regurgitation. Mean gradient is 9 mmHg Mitral annular calcification. Moderate mitral regurgitation Moderate tricuspid regurgitation. Estimated right ventricular systolic pressure is 33 mmHg Wall motion Left Ventricle The left ventricle is normal size. Left ventricular systolic function is mildly decreased. There is normal left ventricular wall thickness. There is global hypokinesis of the left ventricle. There is no ventricular septal defect visualized. LVEF is 45-50%. Right Ventricle The right ventricle is normal size. The right ventricular systolic function is normal. Atria Left atrium is severely dilated. Right atrium is severely dilated. The interatrial septum is intact with no evidence for an atrial septal defect. Aortic Valve Trace aortic regurgitation. TAVR aortic valve present. Mitral Valve Mitral annular calcification. No evidence of mitral valve stenosis. Moderate mitral regurgitation. Tricuspid Valve The tricuspid valve is normal in structure. There is no tricuspid valve stenosis. Moderate tricuspid regurgitation. The RVSP is 32.7 mmHg. Pulmonic Valve The pulmonary valve is normal in structure. There is no pulmonic valvular stenosis. There is no pulmonic valvular regurgitation. Great Vessels The aortic root is normal in size. Ascending aorta is not well visualized. Aortic arch is not well visualized. IVC is normal in size and collapses >50% with inspiration. Pericardium There is no pericardial effusion. 2D Dimensions IVSD d PLAX 1.03 cm F: 0.6-1.0 Ao Root d 2.31 cm F: 2.7 - 3.3 LVPW d PLAX 1.00 cm F: 0.6 - 1.0 LVID d PLAX 4.00 cm F: 3.8 - 5.2 LVDs 3.20 cm F: 2.2 - 3.5 LV EF Teichholz 40.5 % FS 19.42 % LV EDV (Teich) 67.8 mL LV ESV (Teich) 40.3 mL M-Mode TAPSE 2.04 cm (M/F) >1.7 Auto EF LV EDV A4C 92.3 mL LV EDV A2C 118.3 mL LV EDV BP 108.4 mL LV ESV A4C 51.0 mL LV ESV A2C 64.9 mL LV ESV BP 57.1 mL LVEF(%) A4C 44.8 % LVEF(%) A2C 45.2 % LVEF(%) BP 47.3 % LV SV A4C 41.3 ml LV SV A2C 53.5 ml LV SV BP 51.2 ml LV CO A4C 2.1 L/min LV CO A2C 3.1 L/min LV CO BP 2.6 L/min HR A4C 50.42 BPM HR A2C 57.60 BPM LV EDV Index (BP) LA Volume LA Length A4C 5.3 cm LA Length A2C 5.3 cm LA Area A4C s 21.95 cm2 LA Area A2C s 20.95 cm2 LA Vol A4C A-L 77.16 mL LA Vol A2C A-L 69.67 mL LA Vol Biplane A-L 73.7 mL LA Vol/BSA A4C A-L LA Vol/BSA A2C A-L LA Vol/BSA BP A-L 90.9 mL/m2 LA Vol A4C MOD 69.5 mL LA Vol A2C MOD 65.7 mL LA Vol BP MOD 67.8 mL RA Volume RA Area A4C 17.5 cm2 RA ESV A4C (A-L) 54.0mL RA Vol/BSA A4C A-L RA Length A4C 4.8 cm RA ESV A4C (MOD) 50.6mL LV Diastology MV E' medial 0.032 (>0.07 m/s) MV E Vmax 1.02 (0.4-1.3 m/s) MV E/E' MED 32.28 (<14) MV A Vmax 1.25 (0.4-1.3 m/s) MV E' lateral 0.039 (>0.1 m/s) E/A Ratio 0.8 MV E/E' LAT 26.09 (<14) MV E' Average 0.035 m/s MV E/E'(average) 28.86 Aortic Valve AoV Vmax 1.97 m/s LVOT Vmax 1.10 m/s AoV Peak Grad 15.5 mmHg LVOT Peak Grad 4.8 mmHg AoV Area (Vmax) 1.35 cm2 LVOT VTI 0.263 m AoV VTI 0.438 m LVOT Mean Grad 2.6 mmHg AoV Mean Eh. 1.44 m/s LVOT SV 63.84 mL AoV Mean Grad 9.2 mmHg LVOT Diam s 1.75 cm AoV Area (VTI) 1.46 cm2 AV Regurg Peak Gr. 15.47 mmHg Velocity Ratio 0.56 Mitral Valve MV DT 378 (160-240 msec) MV Vmax TIPS 1.38 m/s MV Mean Grad 2.8 (<2mmHg) MV VTI 0.485 m Pulmonary Valve PV Vmax 0.84 (0.5-1.5 m/s) RVOT Vmax 0.79 m/s PV Peak Grad 2.8 mmHg RVOT Peak Gr. 2.5 mmHg PV Mean Eh 0.60 m/s RVOT VTI 0.179 m PV Mean Grad 1.6 mmHg RVOT Mean Gr. 1.2 mmHg Tricuspid Valve RA Pressure 3.00 mmHg TR Vmax 2.73 m/s TV S' 0.11 m/s TR Peak Grad 29.7 mmHg RVSP (TR) 32.7 mmHg
== END ==
PROVIDERS: PCP Family Medicine; Visit Provider Student in an Organized Health Care Education/Training Program
DX: I50.33 Acute on chronic diastolic (congestive) heart failure (principal); Z95.2 Presence of prosthetic heart valve; I08.3 Combined rheumatic disorders of mitral, aortic and tricuspid valves
CPT/HCPCS: 93306

== ENCOUNTER 2025-06-26 11:00 | Outpatient (RCR) | payer MEDICARE, MEDICAID, SELFPAY ==
--- NOTE | 2025-06-26 10:45 | RT.EKG_ITS ---
APPROVED REPORT Exam: Resting ECG Reason for Exam: CR intake Patient Location: O HR:55 bpm ECG Measurements Heart Rate 55 AXIS NJ 175 P 3 QRSd 145 QRS -5 QT 524 T 134 QTc 502 Conclusion Sinus rhythm...normal P axis, V-rate 50- 99 Left bundle branch block...QRSd>120, broad/notched R
== END 2025-07-26 23:59 | disposition home or self-care (01) ==
LOC: CR 11:00
PROVIDERS: PCP Family Medicine; Visit Provider Internal Medicine Cardiovascular Disease
DX: I25.10 Atherosclerotic heart disease of native coronary artery without angina pectoris (principal); Z95.2 Presence of prosthetic heart valve; Z51.89 Encounter for other specified aftercare
CPT/HCPCS: S9472

== ENCOUNTER → 2025-07-03 10:57 | Outpatient (BNVA) | payer MEDICARE, MEDICAID, SELFPAY | PROVIDERS: PCP Family Medicine; Referring Provider Family Medicine; Visit Provider Podiatrist | DX: L60.3 Nail dystrophy (principal); B35.1 Tinea unguium; M72.2 Plantar fascial fibromatosis; M25.572 Pain in left ankle and joints of left foot; I70.203 Unspecified atherosclerosis of native arteries of extremities, bilateral legs; I87.2 Venous insufficiency (chronic) (peripheral); G57.83 Other specified mononeuropathies of bilateral lower limbs; L60.0 Ingrowing nail; I73.89 Other specified peripheral vascular diseases; R09.89 Other specified symptoms and signs involving the circulatory and respiratory systems; R60.0 Localized edema; I83.93 Asymptomatic varicose veins of bilateral lower extremities; L65.9 Nonscarring hair loss, unspecified; R23.4 Changes in skin texture; L60.2 Onychogryphosis; L60.8 Other nail disorders; M79.674 Pain in right toe(s); M79.675 Pain in left toe(s) | CPT/HCPCS: 11721; 20550; 20605; G0127; J0702; J1100 ==

== ENCOUNTER → 2025-07-03 13:55 | Outpatient (CLI) | payer MEDICARE, MEDICAID, SELFPAY ==
--- NOTE | 2025-07-03 13:00 | DI.RAD_ITS ---
Exam(s) XR ANKLE LT COMPLETE EXAM: XR ANKLE LT COMPLETE h CLINICAL HISTORY: pain of ankle foot/fall M25.572. TECHNIQUE: 2D digital imaging was performed. COMPARISON: No exams were available for comparison FINDINGS: 3 views No evidence of acute fracture or widening the ankle mortise. Talar dome appears unremarkable. There are mild-degenerative changes in the ankle tibiotalar joint. There is a degenerative subarticular cysts noted in the anterior aspect of the tibial plafond and, as seen on the lateral view. There is also an intraosseous cyst in the lateral malleolus with a thin sclerotic border, this measuring 1.7 x 1.5 cm. No pathologic fracture at this level. There is some cortical irregularity/bony excrescence on the superior aspect of the posterior calcaneus. This may be related to an element of insertional pathology of the Achilles tendon. There also soft tissue calcifications posteriorly at the Achilles tendon region; actually appearing to be posterior to the Achilles tendon. Vascular calcifications noted in the distal anterior tibial artery and dorsalis pedis segment as well as in the posterior tibial artery. There is no inferior calcaneal spur. IMPRESSION: Multilevel findings as above but no acute fractures evident. DATA REPOSITORY: RADIATION DOSE DELIVERED:
== END ==
LOC: DI 13:56
PROVIDERS: PCP Family Medicine; Visit Provider Podiatrist
DX: M19.072 Primary osteoarthritis, left ankle and foot (principal)
CPT/HCPCS: 73610

== ENCOUNTER 2025-07-03 14:28 | Emergency (ER) | payer MEDICARE, SELFPAY ==
[2025-07-03 14:30] VITALS: BP 170/82; PULSE 51; RESP 18; TEMP 36.3; O2SAT 94
--- NOTE | 2025-07-03 15:00 | DI.CT_ITS ---
Exam(s) CT FACIAL WO EXAM: CT FACIAL WO CLINICAL HISTORY: left sided mmandible hematoma, ?fracture. TECHNIQUE: Imaging Protocol: Axial computed tomography images with coronal and sagittal reformatted images were created and reviewed. No IV contrast COMPARISON: CT CT BRAIN CTA from 08/09/2024 FINDINGS: MAXILLOFACIAL CT SCAN: There is no evidence of facial fractures nor fluid the visualized paranasal sinuses. There is no evidence of orbital blowout fracture. The main findings here are lateral to the left side of the mandible. Adjacent to the lateral aspect of the mandibular ramus there is a E lobulated uniformly dense mass or collection which measures 3 cm AP by 2.4 cm wide by 2 cm craniocaudal and is seen on both sides the platysma. Given the trauma history here this most probably hematoma. Just above this finding is another smaller hematoma measuring 1.0 x 1.0 by 1.0 cm. There is no evidence of fracture in the adjacent mandible. TM joints appear intact bilaterally. IMPRESSION: There are 2 contiguous hematomas adjacent to the lateral aspect of the left mandible with the larger component measuring 3 x 2.4 x 2.0 cm and the smaller hematoma measuring 1.0 x 1.0 x 1.0 cm. There is no adjacent fracture in the mandible. Report called by myself to ER physician 07/03/2025 at 5:55 p.m. RADIATION DOSE DELIVERED: 376.6mGy.cm Total DLP DATA REPOSITORY: All CT scans at this facility are submitted to the National Radiology Data Registry (NRDR) Dose Index Registry (DIR) with the [employer] (A[employer]). RADIATION OPTIMIZATION: All CT scans at this facility use at least one of these dose optimization techniques: automated exposure control; mA and/or kV adjustment per patient size (includes targeted exams where dose is matched to clinical indication); or iterative reconstruction.
--- NOTE | 2025-07-03 15:15 | W.ED.GENAD ---
Discharge Plan Disposition Patient Disposition: Home Condition: Stable Discharge Details Clinical Impression: Facial hematoma Primary Care Provider: Delmy Limon ED Provider: Wm Mendez [place] Meds and New Rx's Prescriptions: Continued potassium chloride 10 mEq capsule, extended release 10 meq PO DAILY sertraline 100 mg tablet 100 mg PO DAILY levothyroxine 100 mcg capsule 100 mcg PO DAILY diltiazem HCl 30 mg tablet 30 mg PO ONCE fluticasone propionate 50 mcg/actuation blister with device 1 inh inhalation BID docusate sodium 100 mg capsule 100 mg PO DAILY gabapentin 100 mg capsule 100 mg PO TID guaifenesin [Mucinex] 600 mg tablet extended release 12hr 600 mg PO Q12H PRN acetaminophen [Tylenol Extra Strength] 500 mg tablet 500 mg PO Q6H PRN ketoconazole 2 % cream 1 applic topical DAILY Qty: 120 6RF Rx Instructions: Apply to toenails once daily omega 4-ndh-msy-fish oil [Fish Oil] 60-90-500 mg capsule 1 cap PO DAILY cholecalciferol (vitamin D3) 10 mcg (400 unit) capsule 10 mcg PO DAILY calcium carbonate [Tums] 200 mg calcium (500 mg) tablet,chewable 200 mg PO DAILY pantoprazole 40 mg tablet,delayed release (DR/EC) 40 mg PO DAILY clopidogrel 75 mg tablet 75 mg PO DAILY ezetimibe 10 mg tablet 10 mg PO DAILY Eliquis 5 mg tablet 5 mg PO BID spironolactone 25 mg tablet 25 mg PO DAILY potassium chloride [Klor-Con M20] 20 mEq tablet,ER particles/crystals 20 meq PO DAILY nitroglycerin 0.4 mg tablet, sublingual 0.4 mg sublingual Q5M PRN Rx Instructions: do not exceed 3 doses per episode metoprolol succinate 25 mg tablet extended release 24 hr 25 mg PO BID melatonin 10 mg capsule 10 mg PO HS PRN guaifenesin 600 mg tablet extended release 12hr 600 mg PO Q12H PRN Jardiance 10 mg tablet 10 mg PO DAILY Ozempic 0.25 mg or 0.5 mg (2 mg/3 mL) pen injector 0.25 mg subcut QWEEK Rx Instructions: for 4 weeks torsemide 100 mg tablet 40 mg PO DAILY atorvastatin 40 mg tablet 40 mg PO DAILY Patient Comments: TAKE ONE TABLET BY MOUTH EVERY DAY Discharge Instructions Additional Instructions: Try to wear the Olman wrap for compression as often as possible. Warm compresses can also help. If this is not starting to improve within 2 weeks follow-up with your primary care provider. If you feel significantly more ill or have new symptoms such as high fevers return to emergency department for reevaluation. Stand Alone Forms: Portal Information HPI General Mode of arrival: ambulatory. Date/Time Provider Initiated Documentation: 07/03/25 14:38. Limitations to Documentation: no limitations. Information obtained by: patient. History of Present Illness 79 year old F presents to the emergency department with the chief complaint of left mandible area swelling/pain, described as moderate, Quality is described as aching, and is localized to the face. Patient started experiencing this day(s) (2) and it has been constant. No relieving factors improve symptom(s), No exacerbating factors reported . Patient notes no other symptoms.. Related Data Home Medications ?Medication ?Instructions ?Recorded ?Confirmed omega 7-eey-dgu-fish oil 60 mg-90 1 cap PO DAILY 03/03/24 07/03/25 mg-500 mg capsule (Fish Oil) diltiazem HCl 30 mg tablet 30 mg PO ONCE 03/10/24 07/03/25 fluticasone propionate 50 1 inh inhalation BID 03/10/24 07/03/25 mcg/actuation blister powder for inhalation levothyroxine 100 mcg capsule 100 mcg PO DAILY 03/10/24 07/03/25 potassium chloride 10 mEq 10 meq PO DAILY 03/10/24 07/03/25 capsule,extended release sertraline 100 mg tablet 100 mg PO DAILY 03/10/24 07/03/25 calcium carbonate (Tums) 200 mg PO DAILY 07/29/24 07/03/25 cholecalciferol (vitamin D3) 10 10 mcg PO DAILY 07/29/24 07/03/25 mcg (400 unit) capsule acetaminophen 500 mg tablet 500 mg PO Q6H PRN 08/12/24 07/03/25 (Tylenol Extra Strength) docusate sodium 100 mg capsule 100 mg PO DAILY 08/12/24 07/03/25 gabapentin 100 mg capsule 100 mg PO TID 08/12/24 07/03/25 guaifenesin 600 mg tablet, 600 mg PO Q12H PRN 08/12/24 07/03/25 extended release 12 hr (Mucinex) ketoconazole 2 % topical cream 1 applic topical DAILY #120 grams 11/30/24 07/03/25 atorvastatin 40 mg tablet 40 mg PO DAILY 03/23/25 07/03/25 apixaban 5 mg tablet (Eliquis) 5 mg PO BID 07/03/25 07/03/25 clopidogrel 75 mg tablet 75 mg PO DAILY 07/03/25 07/03/25 empagliflozin 10 mg tablet 10 mg PO DAILY 07/03/25 07/03/25 (Jardiance) ezetimibe 10 mg tablet 10 mg PO DAILY 07/03/25 07/03/25 guaifenesin 600 mg tablet, 600 mg PO Q12H PRN 07/03/25 07/03/25 extended release 12 hr melatonin 10 mg capsule 10 mg PO HS PRN 07/03/25 07/03/25 metoprolol succinate 25 mg 25 mg PO BID 07/03/25 07/03/25 tablet,extended release 24 hr nitroglycerin 0.4 mg sublingual 0.4 mg sublingual Q5M PRN 07/03/25 07/03/25 tablet pantoprazole 40 mg tablet,delayed 40 mg PO DAILY 07/03/25 07/03/25 release potassium chloride 20 mEq 20 meq PO DAILY 07/03/25 07/03/25 tablet,extended release(part/cryst) (Klor-Con M) semaglutide 0.25 mg or 0.5 mg (2 0.25 mg subcut QWEEK 07/03/25 07/03/25 mg/3 mL) subcutaneous pen injector (Ozempic) spironolactone 25 mg tablet 25 mg PO DAILY 07/03/25 07/03/25 torsemide 100 mg tablet 40 mg PO DAILY 07/03/25 07/03/25 Previous Rx's ?Medication ?Instructions ?Recorded ketoconazole 2 % topical cream 1 applic topical DAILY #120 grams 11/30/24 Allergies Allergy/AdvReac Type Severity Reaction Status Date / Time morphine Allergy Unknown Unknown Verified 07/03/25 14:34 General Stated Complaint: FacialProb JOSE M: 3 Review of Systems All systems reviewed & are unremarkable except as noted in HPI and below Constitutional Constitutional: Denies chills, Denies fever(s) and Denies weakness Cardiovascular Cardiovascular: Denies chest pain and Denies dyspnea Respiratory Respiratory: Denies cough and Denies dyspnea Gastrointestinal Gastrointestinal: Denies abdominal pain, Denies nausea and Denies vomiting Neurologic Neurologic: Denies weakness Psychiatric Psychiatric: Denies depression Exam Const General: no acute distress Orientation: alert HENCT Head: normal to inspection Ears: external ears normal General nose exam: external nose normal Face and sinus: ecchymosis Mouth: moist mucous membranes Eyes General: appearance normal, both eyes and all related structures Neck Neck: normal visual inspection Resp Effort & Inspection: normal respiratory effort and able to speak in complete sentences Cardio Rate: regular rate Skin General skin exam: no rashes or lesions noted Neuro General: patient alert and patient oriented x3 Extrem General: normal to inspection Psych Mental Status: mental status grossly normal Course Vital Signs Vital signs: Vital Signs Temperature 36.3 C L 07/03/25 14:30 Pulse 51 L 07/03/25 14:30 Respiratory Rate 18 07/03/25 14:30 Blood Pressure 170/82 H 07/03/25 14:30 Pulse Oximetry 94 07/03/25 14:30 Temperature 36.3 C L 07/03/25 14:30 Pulse 51 L 07/03/25 14:30 Respiratory Rate 18 07/03/25 14:30 Blood Pressure 170/82 H 07/03/25 14:30 Pulse Oximetry 94 07/03/25 14:30 Oxygen Delivery Method Room Air 07/03/25 14:30 Oxygen Flow Rate 0 07/03/25 14:30 Pain Level 3 07/03/25 14:30 Medical Decision Making 69-year-old female with a history of peripheral vascular disease on Eliquis and Plavix comes in with 2 days of worsening left sided swelling over the mandible. She had a fall where she tripped over a week ago and was seen at [facility] and had 5 stitches placed in the same area where the swelling is. She had the sutures removed about 5 days ago. She says she had been doing well until a few days ago when her swelling developed. She denies any fevers or chills. No new falls. She has bruising over the left mandible with a 3 x 4 cm area of swelling over the left mid mandible which is firm, no fluctuance or drainage. She has no tenderness or pain elsewhere. I suspect she has a hematoma. She is on the blood thinners. I am going to check basic labs and obtain a CT to evaluate for possible underlying mandible fracture. Labs show mild white count of 14 and elevated LFTs but has had this on recent labs as well and states she is seeing her PCP for this. CT shows 2 hematomas, advised that should resolve with time. Will have her wear an Olman bandage for compression and also do warm compresses. She will follow-up with her PCP if not improving and return precautions given. Differential Diagnosis Differential Diagnosis: Hematoma, fracture Lab Data Lab results reviewed: Yes I reviewed the patient's lab results. PFSH All Active Problems (Updated 07/03/25 @ 18:11 by Wm Mendez MD) Facial hematoma (Acute) Pain in left foot (Acute) Pain of joint of left ankle and foot (Acute) Plantar fasciitis (Acute) PAD (peripheral artery disease) (Acute) PVD (peripheral vascular disease) (Chronic) Ingrown toenail (Acute) Critical limb ischemia of both lower extremities (Acute) Foot pain (Acute) Aortic valve disorder (Acute) Obstructive sleep apnea (Chronic) Interdigital neuroma of right foot (Acute) Interdigital neuroma of left foot (Acute) Nail dystrophy (Acute) Onychomycosis (Acute) Venous insufficiency (Acute) Atherosclerosis of artery of both lower extremities (Acute) Neuropathy (Acute) Prediabetes (Acute) High blood pressure (Chronic) Sensorineural hearing loss (Acute) Surgical History S/P insertion of iliac artery stent -[facility] 09/2024; post-op complications. Hx of hysterectomy Social History Smoking/Tobacco Use Status: Never Smoking risk assessment performed?: Yes Alcohol Intake: current Alcohol Intake frequency: a few times a month Alcohol type: other Drug use: Never Substance use type: does not use Do you feel safe at home: Yes Do you feel safe in your relationship?: Yes
[2025-07-03] MEDS: Lidocaine/Epinephri/Tetracaine Topical Gel 3 ML TP (16:25)
[2025-07-03 16:43] LABS: Abs Immature Grans 0.09 10^3/uL (0.0-0.06); HCT 42.6 % (36.0-46.0); HGB 14.1 g/dL (11.2-15.7); Immature Grans % 0.6 %; MCH 32.6 pg (27.0-33.0); MCHC 33.1 % (32.0-36.0); MCV 99 fL (80-95); MPV 10.0 fL (8.0-11.0); Platelet Count 299 10^3/uL (130-400); RBC 4.32 10^6/uL (3.93-5.22); RDW 15.2 % (11.7-14.6); RDW-SD 55.2 fL; WBC 14.63 10^3/uL (4.4-10.8)
[2025-07-03 17:14] LABS: INR 1.1 (0.9-1.1); PTT Activated 25.7 sec (20.6-30.2); Prothrombin Time 11.2 sec (9.1-11.1)
[2025-07-03 17:15] LABS: ALT 167 U/L (10-49); AST 140 U/L (<34); Albumin 4.5 g/dL (3.2-5.0); Alkaline Phosphatase 186 U/L (46-116); Anion Gap 8.9 mmol/L (3-11); BUN 55 mg/dL (9-23); Bilirubin, Total 0.40 mg/dL (0.2-1.2); CO2 34.1 mmol/L (20.0-31.0); Calcium 9.2 mg/dL (8.3-10.6); Chloride 100 mmol/L (98-107); Glucose 170 mg/dL (74-106); Potassium 4.4 mmol/L (3.5-5.1); Sodium 143 mmol/L (136-145); Total Protein 9.0 g/dL (5.7-8.2)
[2025-07-03] MEDS: Acetaminophen 500 MG TAB (19:23)
[2025-07-03 19:24] VITALS: BP 160/70; PULSE 58; RESP 16; O2SAT 96
== END 2025-07-03 19:25 | disposition home or self-care (01) ==
PROVIDERS: Emergency Provider Emergency Medicine; PCP Family Medicine
DX: S00.83XA Contusion of other part of head, initial encounter (principal); X58.XXXA Exposure to other specified factors, initial encounter
CPT/HCPCS: 99283; 99284; 80053; 70486; 85025; 85610; 85730

== ENCOUNTER 2025-07-05 13:31 | Outpatient (REF) | payer MEDICARE, SELFPAY ==
[2025-07-05 16:24] LABS: Anion Gap 12.3 mmol/L (3-11); BUN 63 mg/dL (9-23); CO2 27.7 mmol/L (20.0-31.0); Calcium 8.7 mg/dL (8.3-10.6); Chloride 101 mmol/L (98-107); Glucose 156 mg/dL (74-106); Potassium 3.6 mmol/L (3.5-5.1); Sodium 141 mmol/L (136-145)
== END 2025-07-05 13:32 | disposition home or self-care (01) ==
LOC: NCHCN 13:31
PROVIDERS: PCP Family Medicine; Visit Provider Nurse Practitioner Family
DX: I10 Essential (primary) hypertension (principal)
CPT/HCPCS: 80048

== ENCOUNTER 2025-07-21 13:00 | Outpatient (RCR) | payer MEDICARE, MEDICAID, SELFPAY | END 2025-07-26 23:59 | disposition home or self-care (01) | LOC: CR 13:00 | PROVIDERS: PCP Family Medicine; Visit Provider Internal Medicine Cardiovascular Disease | DX: I25.10 Atherosclerotic heart disease of native coronary artery without angina pectoris (principal); Z95.5 Presence of coronary angioplasty implant and graft; Z51.89 Encounter for other specified aftercare | CPT/HCPCS: S9472 ==